=== PATIENT | male | born 1960 | race Caucasian/White ===

== ENCOUNTER → 2022-09-09 | Outpatient (REF) | payer MEDICAID, SELFPAY ==
[2022-09-09 14:54] LABS: Probe Check ND; Specimen Processing Control ND
== END | disposition home or self-care (01) ==
LOC: OLS.SANC 05:00
PROVIDERS: Referring Provider Internal Medicine; Visit Provider Internal Medicine
DX: U07.1 COVID-19 (principal)
CPT/HCPCS: 87635; U0003; U0005

== ENCOUNTER → 2022-09-11 | Outpatient (REF) | payer MEDICAID, SELFPAY ==
[2022-09-11 14:19] LABS: Specimen Processing Control ND
[2022-09-11 14:20] LABS: Probe Check ND
== END | disposition home or self-care (01) ==
LOC: OLS.SANC 06:15
PROVIDERS: Visit Provider Internal Medicine
DX: U07.1 COVID-19 (principal)
CPT/HCPCS: 87635; U0003; U0005

== ENCOUNTER → 2022-09-14 | Outpatient (REF) | payer MEDICAID, SELFPAY ==
[2022-09-14 09:44] LABS: Hemoglobin 15.5 g/dL (13.0-16.5); Mean Corpuscular Hgb 29.2 pg (27.0-32.0); Mean Corpuscular Volume 88.5 fL (80-94); Mean Platelet Vol. 11.3 fl (6.2-12.0); Platelet Count 318 K/mm3 (150-450); Red Blood Count 5.31 M/mm3 (4.6-6.2); White Blood Count 7.3 K/mm3 (4.4-11.0)
[2022-09-14 10:02] LABS: ALB/GLOB Ratio 0.9 RATIO (0.9-2.4); AST(SGOT) 20 U/L (15-37); Alanine Aminotransfer ALT/SGPT 24 U/L (16-61); Albumin, Serum 3.4 g/dL (3.2-5.0); Alkaline Phosphatase 124 U/L (45-117); Anion Gap 7 (5-15); BUN 18 mg/dL (7-18); BUN/Creat Ratio 18.5 RATIO (10-20); Calcium,Total 8.9 mg/dL (8.5-10.1); Chloride 101 mmol/L (98-107); Creatinine, Serum 0.97 mg/dL (0.70-1.30); EST Glomerular Filtration Rate 83 mL/min (>60); Est Glom Filt Rate - Afr Amer 100 mL/min (>60); Globulin 3.7 g/dL (2.2-4.2); Glucose 85 mg/dL (74-106); Protein, Total 7.1 g/dL (6.4-8.2); Sodium Level 137 mmol/L (136-145)
== END | disposition home or self-care (01) ==
LOC: OLS.SANC 04:00
PROVIDERS: Referring Provider Internal Medicine; Visit Provider Internal Medicine
DX: I10 Essential (primary) hypertension (principal); E78.5 Hyperlipidemia, unspecified
CPT/HCPCS: 36415; 80053; 85027

== ENCOUNTER → 2024-05-24 | Outpatient (REF) | payer MEDICARE, SELFPAY ==
[2024-05-24 08:28] LABS: Hematocrit 36.3 % (40-54); Hemoglobin 11.4 g/dL (13.0-16.5); Mean Corp Hgb Conc 31.4 g/dL (32-36); Mean Corpuscular Hgb 29.5 pg (27.0-32.0); Mean Corpuscular Volume 93.8 fL (80-94); Mean Platelet Vol. 11.6 fl (6.2-12.0); Platelet Count 283 K/mm3 (150-450); RBC Distribution Width CV 16.7 % (11.6-14.6); RBC Distribution Width SD 57.6 fl (35.1-43.9); Red Blood Count 3.87 M/mm3 (4.6-6.2); White Blood Count 6.6 K/mm3 (4.4-11.0)
[2024-05-24 08:42] LABS: ALB/GLOB Ratio 0.9 RATIO (0.9-2.4); AST(SGOT) 16 U/L (15-37); Alanine Aminotransfer ALT/SGPT 22 U/L (16-61); Alkaline Phosphatase 108 U/L (45-117); Anion Gap 5 (5-15); BUN 21 mg/dL (7-18); BUN/Creat Ratio 21.9 RATIO (10-20); Calcium,Total 8.9 mg/dL (8.5-10.1); Chloride 109 mmol/L (98-107); Creatinine, Serum 0.96 mg/dL (0.70-1.30); EST Glomerular Filtration Rate 84 mL/min (>60); Est Glom Filt Rate - Afr Amer 101 mL/min (>60); Globulin 3.3 g/dL (2.2-4.2); Glucose 94 mg/dL (74-106); Potassium 4.2 mmol/L (3.5-5.1); Protein, Total 6.3 g/dL (6.4-8.2); Sodium Level 140 mmol/L (136-145)
== END ==
LOC: OLS.SANC 05:52
PROVIDERS: Visit Provider Internal Medicine
DX: N40.0 Benign prostatic hyperplasia without lower urinary tract symptoms (principal); I10 Essential (primary) hypertension; E78.5 Hyperlipidemia, unspecified; E55.9 Vitamin D deficiency, unspecified; G20.A1 Parkinson's disease without dyskinesia, without mention of fluctuations; Z79.899 Other long term (current) drug therapy
CPT/HCPCS: 36415; 80053; 85027

== ENCOUNTER → 2024-05-31 | Outpatient (REF) | payer MEDICARE, SELFPAY ==
[2024-05-31 08:59] LABS: Hematocrit 37.9 % (40-54); Hemoglobin 11.8 g/dL (13.0-16.5); Mean Corp Hgb Conc 31.1 g/dL (32-36); Mean Corpuscular Hgb 29.4 pg (27.0-32.0); Mean Corpuscular Volume 94.3 fL (80-94); Mean Platelet Vol. 12.2 fl (6.2-12.0); Platelet Count 292 K/mm3 (150-450); RBC Distribution Width SD 55.8 fl (35.1-43.9); Red Blood Count 4.02 M/mm3 (4.6-6.2); White Blood Count 6.9 K/mm3 (4.4-11.0)
[2024-05-31 09:14] LABS: Vitamin B12 275 pg/mL (211-911)
[2024-05-31 09:26] LABS: Anion Gap 6 (5-15); BUN 14 mg/dL (7-18); BUN/Creat Ratio 16.8 RATIO (10-20); Chloride 109 mmol/L (98-107); Creatinine, Serum 0.84 mg/dL (0.70-1.30); EST Glomerular Filtration Rate 98 mL/min (>60); Est Glom Filt Rate - Afr Amer 119 mL/min (>60); Glucose 83 mg/dL (74-106); Iron 59 ug/dL (65-175); Iron Binding Capacity,Total 455 ug/dL (250-450); Potassium 4.2 mmol/L (3.5-5.1); Sodium Level 141 mmol/L (136-145)
== END ==
LOC: OLS.SANC 05:00
PROVIDERS: Visit Provider Internal Medicine
DX: N40.0 Benign prostatic hyperplasia without lower urinary tract symptoms (principal); I10 Essential (primary) hypertension; E78.5 Hyperlipidemia, unspecified
CPT/HCPCS: 36415; 80048; 82607; 82746; 83540; 83550; 85027

== ENCOUNTER → 2024-06-15 | Outpatient (REF) | payer MEDICARE, SELFPAY ==
[2024-06-15 08:27] LABS: Hematocrit 39.7 % (40-54); Hemoglobin 12.5 g/dL (13.0-16.5); Mean Corp Hgb Conc 31.5 g/dL (32-36); Mean Corpuscular Hgb 29.2 pg (27.0-32.0); Mean Corpuscular Volume 92.8 fL (80-94); Mean Platelet Vol. 11.6 fl (6.2-12.0); Platelet Count 305 K/mm3 (150-450); RBC Distribution Width CV 14.6 % (11.6-14.6); RBC Distribution Width SD 49.5 fl (35.1-43.9); Red Blood Count 4.28 M/mm3 (4.6-6.2); White Blood Count 6.8 K/mm3 (4.4-11.0)
[2024-06-15 08:47] LABS: ALB/GLOB Ratio 0.9 RATIO (0.9-2.4); AST(SGOT) 19 U/L (15-37); Alanine Aminotransfer ALT/SGPT 20 U/L (16-61); Albumin, Serum 3.3 g/dL (3.2-5.0); Alkaline Phosphatase 125 U/L (45-117); Anion Gap 5 (5-15); BUN 13 mg/dL (7-18); BUN/Creat Ratio 16.9 RATIO (10-20); Calcium,Total 9.3 mg/dL (8.5-10.1); Chloride 109 mmol/L (98-107); Creatinine, Serum 0.77 mg/dL (0.70-1.30); EST Glomerular Filtration Rate 108 mL/min (>60); Est Glom Filt Rate - Afr Amer 131 mL/min (>60); Globulin 3.5 g/dL (2.2-4.2); Glucose 85 mg/dL (74-106); Protein, Total 6.8 g/dL (6.4-8.2); Sodium Level 141 mmol/L (136-145)
== END ==
LOC: OLS.SANC 05:00
PROVIDERS: Visit Provider Internal Medicine
DX: I11.0 Hypertensive heart disease with heart failure (principal); I50.9 Heart failure, unspecified; E78.5 Hyperlipidemia, unspecified
CPT/HCPCS: 36415; 80053; 85027

== ENCOUNTER → 2024-06-20 | Outpatient (REF) | payer MEDICARE, SELFPAY ==
[2024-06-21 08:18] LABS: Mucous, Urine 0 SEEN /hpf (<or=2+)
[2024-06-21 08:49] LABS: Color, Urine Yellow (Yellow); Glucose, Dipstick Normal (Normal); Ketone-Dipstick Negative (Negative); Leukocyte Esterase-Dipstick 100 /ul (Negative); Nitrite-Dipstick Negative (Negative); Occult Blood-Urine 150 /ul (Negative); Protein-Dipstick 15 mg/dl (Negative); Specific Gravity, Urine 1.015 (1.002-1.030); Urine Bilirubin Dipstick Negative (Negative); Urine Clarity Clear (Clear); Urine Urobilinogen Normal (Normal)
[2024-06-21 09:17] LABS: Bacteria 1+ /hpf (None Seen); Red Blood Cells-Urine 5-10 SEEN /hpf (0-5); Squamous Epithelial Cells - UA 0-5 SEEN /hpf (0-5); White Blood Cells 0-5 SEEN /hpf (0-5)
== END ==
LOC: OLS.SANC 16:30
PROVIDERS: Visit Provider Internal Medicine
DX: R39.89 Other symptoms and signs involving the genitourinary system (principal)
CPT/HCPCS: 81001; 87086; 87088

== ENCOUNTER → 2024-10-06 05:00 | Outpatient (REF) | payer MEDICARE, SELFPAY ==
[2024-10-06 08:45] LABS: Hematocrit 42.2 % (40-54); Hemoglobin 13.7 g/dL (13.0-16.5); Mean Corp Hgb Conc 32.5 g/dL (32-36); Mean Corpuscular Hgb 29.5 pg (27.0-32.0); Mean Corpuscular Volume 90.8 fL (80-94); Mean Platelet Vol. 11.8 fl (6.2-12.0); Platelet Count 292 K/mm3 (150-450); RBC Distribution Width CV 14.4 % (11.6-14.6); RBC Distribution Width SD 48.1 fl (35.1-43.9); Red Blood Count 4.65 M/mm3 (4.6-6.2); White Blood Count 8.9 K/mm3 (4.4-11.0)
[2024-10-06 09:53] LABS: AST(SGOT) 15 U/L (15-37); Alanine Aminotransfer ALT/SGPT 22 U/L (16-61); Albumin, Serum 3.2 g/dL (3.2-5.0); Alkaline Phosphatase 126 U/L (45-117); Anion Gap 5 (5-15); BUN 19 mg/dL (7-18); Calcium,Total 8.6 mg/dL (8.5-10.1); Chloride 112 mmol/L (98-107); Creatinine, Serum 0.76 mg/dL (0.70-1.30); EST Glomerular Filtration Rate 109 mL/min (>60); Est Glom Filt Rate - Afr Amer 132 mL/min (>60); Globulin 3.1 g/dL (2.2-4.2); Glucose 83 mg/dL (74-106); Potassium 3.9 mmol/L (3.5-5.1); Protein, Total 6.3 g/dL (6.4-8.2); Sodium Level 142 mmol/L (136-145)
== END ==
LOC: OLS.SANC 05:00
PROVIDERS: Visit Provider Internal Medicine
DX: Z79.899 Other long term (current) drug therapy (principal)
CPT/HCPCS: 36415; 80053; 85027

== ENCOUNTER → 2024-11-06 | Outpatient (REF) | payer MEDICARE, SELFPAY ==
[2024-11-06 09:00] LABS: Hematocrit 43.3 % (40-54); Hemoglobin 14.1 g/dL (13.0-16.5); Mean Corp Hgb Conc 32.6 g/dL (32-36); Mean Corpuscular Volume 88.9 fL (80-94); Mean Platelet Vol. 11.5 fl (6.2-12.0); Platelet Count 296 K/mm3 (150-450); RBC Distribution Width CV 13.9 % (11.6-14.6); RBC Distribution Width SD 45.2 fl (35.1-43.9); Red Blood Count 4.87 M/mm3 (4.6-6.2); White Blood Count 6.8 K/mm3 (4.4-11.0)
[2024-11-06 09:16] LABS: Anion Gap 5 (5-15); BUN 17 mg/dL (7-18); BUN/Creat Ratio 21.4 RATIO (10-20); Chloride 109 mmol/L (98-107); Creatinine, Serum 0.79 mg/dL (0.70-1.30); EST Glomerular Filtration Rate 104 mL/min (>60); Est Glom Filt Rate - Afr Amer 126 mL/min (>60); Glucose 84 mg/dL (74-106); Potassium 4.1 mmol/L (3.5-5.1); Sodium Level 140 mmol/L (136-145)
== END ==
LOC: OLS.SANC 05:00
PROVIDERS: Visit Provider Internal Medicine
DX: I10 Essential (primary) hypertension (principal); E78.5 Hyperlipidemia, unspecified; Z86.711 Personal history of pulmonary embolism
CPT/HCPCS: 36415; 80048; 85027

== ENCOUNTER → 2025-01-08 | Outpatient (REF) | payer MEDICARE, SELFPAY ==
[2025-01-08 08:30] LABS: Hematocrit 44.2 % (40-54); Hemoglobin 14.4 g/dL (13.0-16.5); Mean Corp Hgb Conc 32.6 g/dL (32-36); Mean Corpuscular Hgb 29.3 pg (27.0-32.0); Mean Corpuscular Volume 89.8 fL (80-94); Mean Platelet Vol. 11.6 fl (6.2-12.0); Platelet Count 260 K/mm3 (150-450); RBC Distribution Width SD 46.1 fl (35.1-43.9); Red Blood Count 4.92 M/mm3 (4.6-6.2); White Blood Count 7.3 K/mm3 (4.4-11.0)
[2025-01-08 10:54] LABS: Anion Gap 11 (5-15); BUN 16 mg/dL (4-19); BUN/Creat Ratio 19.3 RATIO (10-20); Carbon Dioxide 23.9 mmol/L (22.0-29.0); Chloride 106 mmol/L (96-108); Creatinine, Serum 0.82 mg/dL (0.70-1.20); EST Glomerular Filtration Rate 97 (>60); Glucose 77 mg/dL (70-99); Potassium 4.2 mmol/L (3.3-5.1); Sodium Level 141 mmol/L (133-145)
== END ==
LOC: OLS.SANC 04:00
PROVIDERS: Referring Provider Internal Medicine; Visit Provider Internal Medicine
DX: I10 Essential (primary) hypertension (principal)
CPT/HCPCS: 36415; 80048; 85027

== ENCOUNTER → 2025-02-05 | Outpatient (REF) | payer MEDICARE, SELFPAY ==
[2025-02-05 08:43] LABS: Hematocrit 40.3 % (40-54); Hemoglobin 13.5 g/dL (13.0-16.5); Mean Corp Hgb Conc 33.5 g/dL (32-36); Mean Corpuscular Hgb 29.7 pg (27.0-32.0); Mean Corpuscular Volume 88.8 fL (80-94); Mean Platelet Vol. 11.4 fl (6.2-12.0); Platelet Count 274 K/mm3 (150-450); RBC Distribution Width CV 13.7 % (11.6-14.6); RBC Distribution Width SD 44.7 fl (35.1-43.9); Red Blood Count 4.54 M/mm3 (4.6-6.2); White Blood Count 7.4 K/mm3 (4.4-11.0)
[2025-02-05 09:05] LABS: Anion Gap 11 (5-15); BUN 14 mg/dL (4-19); BUN/Creat Ratio 17.6 RATIO (10-20); Calcium,Total 8.7 mg/dL (7.6-11.0); Carbon Dioxide 21.8 mmol/L (21.0-32.0); Chloride 108 mmol/L (98-108); EST Glomerular Filtration Rate 97 (>60); Glucose 81 mg/dL (70-99); Potassium 4.2 mmol/L (3.3-5.1); Sodium Level 141 mmol/L (133-145)
== END ==
LOC: OLS.SANC 05:00
PROVIDERS: Visit Provider Internal Medicine
DX: I48.91 Unspecified atrial fibrillation (principal); N40.0 Benign prostatic hyperplasia without lower urinary tract symptoms; I10 Essential (primary) hypertension; E78.5 Hyperlipidemia, unspecified
CPT/HCPCS: 36415; 80048; 85027

== ENCOUNTER → 2025-03-20 | Outpatient (REF) | payer MEDICARE, SELFPAY ==
[2025-03-20 10:00] LABS: Hematocrit 41.4 % (40-54); Hemoglobin 13.7 g/dL (13.0-16.5); Mean Corp Hgb Conc 33.1 g/dL (32-36); Mean Corpuscular Hgb 30.3 pg (27.0-32.0); Mean Corpuscular Volume 91.6 fL (80-94); Mean Platelet Vol. 11.3 fl (6.2-12.0); Platelet Count 264 K/mm3 (150-450); RBC Distribution Width CV 13.8 % (11.6-14.6); Red Blood Count 4.52 M/mm3 (4.6-6.2); White Blood Count 7.1 K/mm3 (4.4-11.0)
[2025-03-20 10:39] LABS: Anion Gap 10 (5-15); BUN 19 mg/dL (4-19); BUN/Creat Ratio 24.9 RATIO (10-20); Calcium,Total 8.7 mg/dL (7.6-11.0); Carbon Dioxide 22.8 mmol/L (21.0-32.0); Chloride 110 mmol/L (98-108); Creatinine, Serum 0.77 mg/dL (0.70-1.20); EST Glomerular Filtration Rate 99 (>60); Glucose 82 mg/dL (70-99); Potassium 4.1 mmol/L (3.3-5.1); Sodium Level 143 mmol/L (133-145)
== END ==
LOC: OLS.SANC 05:00
PROVIDERS: Visit Provider Internal Medicine
DX: I48.91 Unspecified atrial fibrillation (principal); N40.0 Benign prostatic hyperplasia without lower urinary tract symptoms; I10 Essential (primary) hypertension
CPT/HCPCS: 36415; 80048; 85027

== ENCOUNTER → 2025-05-21 05:00 | Outpatient (REF) | payer MEDICARE, SELFPAY ==
--- OUTSIDE RECORDS SUMMARY | 2025-05-21 03:52 | XMS RPT_ITS | CCD ---
Author Organization [facility] CliniSyca Care Team Providers Care Plastering Supervisor Name Role Phone Ty BROTHERS, Ángel Rivera Primary Care Provide r Kelechi BROTHERS, Paul Unavailable [phone] Kinsey Ruggiero MD, Clint Perez [facility] Provi ana Kinsey Ruggiero MD, Clint Perez [facility] Provi ana Tim BARRETT, Moo Unavailable Unavailable Kinsey Ruggiero MD, Clint Perez [facility] Provi ana Tim RN, Moo Unavailable Unavailable IZA, JOSSE Attending Unavailable CLINT EUCEDA JR Referring Unavail able CLINT EUCEDA JR Primary [facility] Unavail able Tim RN, Moo Unavailable Unavailable Jacque BARRETT, Inna A Unavailable [phone] Jacque RN, Inna A Unavailable [phone] Tim BARRETT, Moo Unavailable Unavailable Jacque RN, Inna A Unavailable [phone] Iza BROTHERS, Josse Unavailable Aracelis CIFUENTES, Patricia Romano Unavailable Mastrucci CONSTRUCTION ESTIMATOR.RESIDENTIAL REAL ESTATE ASSISTANT, Karthik Primary Care Provider Mastrucci CONSTRUCTION ESTIMATOR.RESIDENTIAL REAL ESTATE ASSISTANT, Karthik Primary Care Provider Jed Wolf MD Unavailable Jacque BARRETT, Inna A Unavailable Sal CONSTRUCTION ESTIMATOR.Anya GILES Unavailable [phone] Violette Chen Attending Provider Unavailab Violette Christian Referring Provider Unavailab Violette Osei MD Primary Care Provider Trinidad MCCALL, Violette Attending Provider Unavailab rosa MCCALL, Violette Attending Unavailable Trinidad MCCALL, Violette Attending Unavailable Trinidad MCCALL, Violette Attending Unavailable Lanasamelanei MCCALL, Violette Attending Unavailable Katsamelanie, Violette Attending Unavailable Trinidad, Violette Referring Unavailable Katsaros STEFANY, Violette Attending Unavailable Katsaros, Violette Attending Unavailable Katsamelanie, Violette Referring Unavailable Katsaros STEFANY, Violette Attending Unavailable Lanasamelanie MCCALL, Violette Referring Unavailable Katsaros STEFANY, Violette Attending Unavailable Katsamelanie MCCALL, Violette Attending Unavailable Katsaros STEFANY, Violette Attending Unavailable MASTRUCCI, KARTHIK Primary Care Unavailable ANYA HUANG Attending Unavailable VIOLETTE ABDI Primary Care Unavaila CANDELARIO Koch Referring Unavailable MASTRUCCI, KARTHIK Primary Care Unavailable FEGATELLI, AGATA Referring Unavailable ZORAN, SERGIO Attending Unavailable MACK NOONAN Admitting Unavailable MASTRUCCI, KARTHIK Primary Care Unavailable MASTRUCCI, KARTHIK Primary Care Unavailable KHAYYAT, LEONARD F Referring Unavailable KHAYYAT, LEONARD F Attending Unavailable MASTRUCCI, KARTHIK Primary Care Unavailable FEGATELLI, AGATA Referring Unavailable MASTRUCCI, KARTHIK Primary Care Unavailable FEGATELLI, GAATA Referring Unavailable KHAYYAT, LEONARD F Attending Unavailable MASTRUCCI, KARTHIK Primary Care Unavailable SELF Referring Unavailable MASTRUCCI, KARTHIK Attending Unavailable MASTRUCCI, KARTHIK Primary Care Unavailable ANYA HUANG Referring Unavailable MASTRUCCI, KARTHIK Primary Care Unavailable FEGATELLI, AGATA Referring Unavailable KHAYYAT, LEONARD F Attending Unavailable MASTRUCCI, KARTHIK Primary Care Unavailable MASTRUCCI, KARTHIK Attending Unavailable MASTRUCCI, KARTHIK Primary Care Unavailable SUELLEN CONLEY Attending Unavailable MASTRUCCI, KARTHIK Primary Care Unavailable KHAYYAT, LEONARD F Attending Unavailable MASTRUCCI, KARTHIK Primary Care Unavailable ANYA HUANG Attending Unavailable MASTRUCCI, KARTHIK Primary Care Unavailable ANYA HUANG Referring Unavailable FAITH MOORE Attending Unavailable MASTRUCCI, KARTHIK Primary Care Unavailable OSCAR, FAITH M Referring Unavailable MASTRUCCI, KARTHIK Primary Care Unavailable NATET, LEONARD F Referring Unavailable MASTRUCCI, KARTHIK Primary Care Unavailable KHAYYAT, LEONARD F Referring Unavailable MASTRUCCI, KARTHIK Primary Care Unavailable KHSAURABHYAT, LEONARD F Referring Unavailable KHAYYAT, LEONARD F Attending Unavailable [facility], KARTHIK Primary Care Unavailable ANYA HUANG Attending Unavailable MIA GERONIMO Unavailable FLORENCIO HERNANDEZ Attending Unavailable DEEDEE RICE Admitting Unavailable [email or web address] KARTHIK Primary Care Unavailable Medications Current Medications Medication Drug Class(es) Dates Sig (Normalized) Sig (Original) acetaminophen 500 mg oral tablet (20 sources) Start: 06-07-2024 take 2 tablets by mouth every eight hours as needed acetaminophen (TYLENOL) 500 mg tablet Take 2 tablets by mouth every 8 hours as needed for pain. 06/07/2024 Active Start: 04-25-2024 End: 06-07-2024 take 2 tablets by mouth every six hours as needed acetaminophen (TYLENOL) 500 mg tablet Take 2 tablets by mouth every 6 hours as needed for pain. 0 04/25/2024 06/07/2024 Discontinued Start: 09-06-2022 End: 02-01-2024 take 2 tablets by mouth every six hours as needed acetaminophen (TYLENOL) 325 mg tablet Take 2 tablets by mouth every 6 hours as needed for pain or fever (specify) (tmax >100.2F). 0 09/06/2022 02/01/2024 Discontinued Comment on above: Take 2 tablets by mo ut every 6 hours as needed for pain or fever (specify) (tmax >100.2F). amLODIPine 5 mg oral tablet (20 sources) Dihydropyridine Calcium Channel Helder Start: take 2 tablets by mouth once daily amLODIPine (NORVASC) 5 mg tablet Take 2 tablets by mouth once daily. 04/25/2024 Active Start: 09-07-2022 End: 07-30-2024 take 1 tablet by mouth once daily amLODIPine (NORVASC) 5 mg tablet Indications: Essential hypertension Take 1 tablet by mouth once daily. 90 tablet 1 02/01/2024 07/30/2024 Active Start: 06-06-2021 End: 05-10-2022 take 1 tablet by mouth once daily amLODIPine (NORVASC) 5 mg tablet Indications: Essential hypertension Take 1 tablet by mouth once daily. 30 tablet 5 04/10/2022 Suspended Comment on above: Take 1 tablet by linda once daily. apixaban 5 mg oral tablet (20 sources) Factor Xa Inhibitor Start: 12-10-2024 ELIQUIS 5 mg tab(s) 12/10/2024 Active Start: 09-28-2024 End: 10-31-2024 take 2 tablets by mouth twice daily, then take 1 tablet by mouth twice daily apixaban (ELIQUIS) 5 mg tab(s) Take 2 tablets by mouth two times a day for 5 days, THEN 1 tablet two times a day for 28 days. 76 tablet 09/28/2024 10/31/2024 Active aspirin 81 mg chewable tablet (20 sources) Platelet Aggregation Inhibitor, Nonsteroidal Anti-inflammatory Drug Start: 04-26-2024 take 1 tablet by mouth once daily aspirin 81 mg chewable tablet Take 1 tablet by mouth once daily. 04/26/2024 Active atorvastatin 20 mg oral tablet (20 sources) HMG-CoA Reductase Inhibitor Start: 01-24-2021 End: 07-30-2024 take 1 tablet by mouth once daily atorvastatin (LIPITOR) 20 mg tablet Indications: Dyslipidemia Take 1 tablet by mouth once daily. 90 tablet 1 02/01/2024 Active Comment on above: Take 1 tablet by linda once daily. TAKE ONE TABLET BY M OUTH EVERY DAY bisacodyl 5 mg delayed release oral tablet (20 sources) Stimulant Laxative End: 06-04-2024 Bisacodyl (DULCOLAX) 5 mg tab Take 5 mg by mouth as needed for constipation. Active End: 06-04-2024 take 10 mg rectal route once daily as needed for constipation bisacodyl (DULCOLAX, BISACODYL,) 10 mg supp 10 mg by RECTAL route once daily as needed for constipation. 0 06/04/2024 Discontinued 24 hr buPROPion hydrochloride 300 mg extended release oral tablet (20 sources) Aminoketone Start: 12-01-2024 End: 03-01-2025 take 1 tablet by mouth once daily buPROPion XL (WELLBUTRIN XL) 300 mg 24 hr tablet Indications: Depression, unspecified depression type Take 1 tablet by mouth once daily. 90 tablet 12/01/2024 Active Start: 11-28-2024 End: 05-27-2025 take 1 tablet by mouth once daily buPROPion XL 450 mg Tb24 Indications: Depression, unspecified depression type Take 1 tablet by mouth once daily. 90 tablet 1 11/28/2024 12/01/2024 Discontinued Start: 02-06-2020 End: 11-28-2024 take 1 tablet by mouth once daily buPROPion XL (WELLBUTRIN XL) 300 mg 24 hr tablet Indications: Depression, unspecified depression type Take 1 tablet by mouth once daily. 90 tablet 1 02/01/2024 07/30/2024 Active Comment on above: Take by mouth once d aily. Take 300 mg by mouth once daily. Take 1 tablet by linda th once daily. hydrALAZINE hydrochloride 10 mg oral tablet (20 sources) Arteriolar Vasodilator Start: 12-22-2024 hydrALAZINE (APRESOLINE) 10 mg tablet 12/22/2024 Active End: 02-22-2025 take 40 mg by mouth every eight hours hydralazine HCl (HYDRALAZINE ORAL) Take 40 mg by mouth every 8 hours. 02/22/2025 Discontinued (Other) take 40 mg by mouth every eight hours hydralazine HCl (HYDRALAZINE ORAL) Take 40 mg by mouth every 8 hours. Active take 40 mg by mouth every eight hours hydralazine HCl (HYDRALAZINE ORAL) Take 40 mg by mouth every 8 hours. 0 Active hydralazine HCl (HYDRALAZINE ORAL) Take 40 mg by mouth as needed (q8). 0 Active lisinopril 40 mg oral tablet (20 sources) Angiotensin Converting Enzyme Inhibitor Start: 11-11-2021 End: 07-30-2024 take 1 tablet by mouth once daily lisinopril (ZESTRIL) 40 mg tablet Indications: Essential hypertension Take 1 tablet by mouth once daily. 90 tablet 1 02/01/2024 Active Comment on above: TAKE ONE TABLET BY M OUTH EVERY DAY Take 1 tablet by linda th once daily. Take 40 mg by mouth once daily. magnesium hydroxide 240 mg/ml oral suspension (15 sources) take 10 mL by mouth once daily as needed magnesium hydroxide 2,400 mg/10 mL susp Take 10 mL by mouth once daily as needed. Active End: 06-04-2024 magnesium hydroxide (MILK OF MAGNESIA ORAL) Take by mouth. 0 06/04/2024 Discontinued magnesium hydrox ad (MILK OF MAGNESIA ORAL) Take by mouth. 0 Active magnesium, aluminum hydroxid e (ALUMINUM-MAGNESIUM HYDROXIDE ORAL) (9 sources) End: 10-27-2024 magnesium, aluminum hydroxid e (ALUMINUM-MAGNESIUM HYDROXIDE ORAL) Take by mouth. 10/27/2024 Discontinued magnesium, alumi num hydroxide (ALUMINUM-MAGNESIUM HYDROXIDE ORAL) Take by mouth. Active meloxicam 7.5 mg oral tablet (1 source) Nonsteroidal Anti-inflammatory Drug Start: 05-08-2022 End: 06-07-2022 take 1 tablet by mouth once daily meloxicam (MOBIC) 7.5 mg tablet Indications: Chronic midline thoracic back pain Take 1 tablet by mouth once daily. 30 tablet 0 05/08/2022 06/07/2022 Active Comment on above: Take 1 tablet by mouth once daily. miconazole nitrate 0.02 mg/mg topical powder (20 sources) Azole Antifungal Start: 09-28-2024 miconazole 2 % powder Apply 1 application to affected area two times a day. 09/28/2024 Active Start: 04-25-2024 End: 09-18-2024 miconazole 2 % powder Apply 1 application to affected area two times a day. 04/25/2024 09/18/2024 Discontinued (Course of therapy completed) nystatin 100 unt/mg topical powder (8 sources) Polyene Antifungal Start: 09-18-2024 End: 10-18-2024 nystatin (MYCOSTATIN) powder Indications: Fungal rash of trunk Apply 1 application to affected area four times daily. 60 g 2 09/18/2024 10/18/2024 Active polyethylene glycol 3350 58032 mg powder for oral solution (20 sources) Osmotic Laxative Start: 09-29-2024 End: 11-28-2024 polyethylene glycol 3350 17 gram packet Take 1 Packet by mouth once daily. Dissolve dose in 4 - 8 ounces of liquid and take as directed. 09/29/2024 11/28/2024 Discontinued Start: 09-06-2022 polyethylene g lycol 3350 (MIRALAX, GLYCOLAX) 17 gram packet Take 1 Packet by mouth once daily as needed for constipation. Dissolve dose in 4 - 8 ounces of liquid and take as directed. 0 09/06/2022 Active polyethylene gly col 3350 4 gram pwpk Take by mouth. Active Comment on above: Take 1 Packet by linda th once daily as needed for constipation. Dissolve dose in 4 - 8 ounces of liquid and take as directed. sennosides, mcfp 8.6 mg oral tablet (7 sources) take 1 tablet by mouth twice daily senna (SENOKOT) 8.6 mg tab Take 8.6 mg by mouth two times a day. Active tamsulosin hydrochloride 0.4 mg oral capsule (20 sources) alpha-Adrenergic Helder Start: 03-31-20 End: 08-07-20 tamsulosin (FLOMAX) 0.4 mg Indications: Benign prostatic hyperplasia with lower urinary tract symptoms, symptom details unspecified TAKE 1 CAPSULE AT BEDTIME 90 capsule 3 07/05/2024 Active Comment on above: Take 1 capsule by mo [facility] daily at bedtime. Completed/Discontinued Medications Medication Drug Class(es) Dates Sig (Normalized) Sig (Original) aluminum hydroxide 40 mg/ml / magnesium hydroxide 40 mg/ml / simethicone 4 mg/ml oral suspension (20 sources) Start: 09-06-2022 End: 02-01-2024 take 30 mL by mouth once daily as needed aluminum-magnesium hydroxide-simethico ne (MAALOX,MYLANTA,MAG -AL PLUS) 200-200-20 mg/5 mL suspension Take 30 mL by mouth once daily as needed (dyspepsia). 0 09/06/2022 02/01/2024 Discontinued End: 11-28-2024 aluminum-magnesium hydroxide -simethicone (MAALOX,MYLANTA,MAG-AL PLUS) 200-200-20 mg/5 mL suspension Take by mouth every 6 hours as needed. 11/28/2024 Discontinued Comment on above: Take 30 mL by mouth once daily as needed (dyspepsia). benzocaine 15 mg / menthol 3.6 mg oral lozenge (11 sources) Standardized Chemical Allergen Start: 09-06-20 benzocaine-menthol (CEPACOL) 15-3.6 mg lozg Use 1 Lozenge as instructed every 2 hours as needed (cough, sore throat). 30 Lozenge 0 09/06/2022 Active Comment on above: Use 1 Lozenge as ins tructed every 2 hours as needed (cough, sore throat). carbidopa 25 mg / levodopa 100 mg oral tablet (20 sources) Aromatic Amino Acid Decarboxylation Inhibitor, Aromatic Amino Acid Start: 10-29-20 End: 02-01-20 take 2 tablets by mouth three times daily carbidopa-levodopa (SINEMET) 25-100 mg per tablet Indications: Parkinsonism, unspecified Parkinsonism type (HCC) Take 2 tablets by mouth three times daily. 180 tablet 3 01/18/2023 02/01/2024 Discontinued Start: 09-06-2022 End: 10-29-2022 take 0.5 tablet by mouth twice daily carbidopa-levodopa (SINEMET 25-100) 25-100 mg per tablet Take 0.5 tablets by mouth twice daily. 30 tablet 1 09/06/2022 10/29/2022 Discontinued Comment on above: Take 0.5 tablets by mouth twice daily. Take 2 tablets by mo [facility] three times daily. Take 0.5 tablets by mouth three times daily. chlorthalidone 25 mg oral tablet (20 sources) Thiazide-like Diuretic Start: 2020 End: 2023 take 1 tablet by mouth once daily chlorthalidone (HYGROTON) 25 mg tablet Indications: Essential hypertension Take 1 tablet by mouth once daily. 30 tablet 5 11/12/2022 02/01/2024 Discontinued Comment on above: Take 1 tablet by [facility] once daily. cholecalciferol 0.05 mg oral capsule (20 sources) Vitamin D End: 2023 take 1 capsule by mouth once daily Cholecalciferol, Vitamin D3, 50 mcg (2,000 unit) cap Take 1 capsule by mouth once daily. 0 02/01/2024 Discontinued Comment on above: Take by mouth once d aily. Take 1 capsule by mo [facility] once daily. docusate sodium 50 mg / sennosides, mcfp 8.6 mg oral tablet (20 sources) Start: 2023 End: 2024 take 1 tablet by mouth twice daily senna-docusate (SENNA-S) 8.6-50 mg per tablet Take 1 tablet by mouth two times a day. 04/25/2024 02/22/2025 Discontinued (Other) ergocalciferol 1.25 mg oral capsule (20 sources) Provitamin D2 Compound Start: 2023 End: 2023 take 1 capsule by mouth every week ergocalciferol 50,000 unit capsule (VITAMIN D2, DRISDOL) Take 1 capsule by mouth one time a week for 6 doses. 6 capsule 04/29/2024 09/18/2024 Discontinued escitalopram 10 mg oral tablet (8 sources) Serotonin Reuptake Inhibitor Start: 2024 End: 2024 take 1 tablet by mouth once daily escitalopram oxalate (LEXAPRO) 10 mg tablet Indications: Depression, unspecified depression type Take 1 tablet by mouth once daily. 90 tablet 12/01/2024 02/22/2025 Discontinued (Discontinued by another Health Care Provider) 12 hr guaiFENesin 600 mg extended release oral tablet (11 sources) Start: 2021 take 1 tablet by mouth every twelve hours as needed guaiFENesin (MUCINEX) 600 mg 12 hr tablet Take 1 tablet by mouth every 12 hours as needed for cold/allergy symptoms (cough and congestion). 30 tablet 0 09/06/2022 Active Comment on above: Take 1 tablet by linda th every 12 hours as needed for cold/allergy symptoms (cough and congestion). 1 ml heparin sodium, porcine 5000 unt/ml injection (10 sources) Unfractionated Heparin, Anti-coagulant End: 2023 inject 5000 [IU] by subcutaneous injection every eight hours, then inject 7500 [IU] by subcutaneous injection every eight hours heparin sodium,porcine (HEPARIN SODIUM INJECTION) 5,000 Units/mL by INJECTION(UNSPECIFI ED PARENTERAL ROUTES) route every 8 hours. Inject 7500 unit subcutaneously every 8 hours 0 06/04/2024 Discontinued iv contrast (will be provided with radiology test) (5 sources) Start: 2024 End: 2024 inject 1 dose intravenously once iv contrast (will be provided with radiology test) Indications: Intracranial meningioma (HCC) , Traumatic subdural hematoma with loss of consciousness, sequela MRI Brain Inject, intravenously, once for 1 dose.No IV access, insert saline lock prior to beginning of sedation, infusion, injection of imaging exam.Discontinue saline lock post exam. If Pt. has a central line or IVAD, may access for administration according to line specific nursing protocol.Once exam is complete flush line and de-access according to line specific nursing protocol in the MR contrast administration guidelines link 1 Each 01/19/2025 02/22/2025 Discontinued Start: 01-19-2025 inject 1 dose intravenously on ce iv contrast (will be provided with radiology test) Indications: Intracranial meningioma (HCC) , Traumatic subdural hematoma with loss of consciousness, sequela (HCC) MRI Brain Inject, intravenously, once for 1 dose.No IV access, insert saline lock prior to beginning of sedation, infusion, injection of imaging exam.Discontinue saline lock post exam. If Pt. has a central line or IVAD, may access for administration according to line specific nursing protocol.Once exam is complete flush line and de-access according to line specific nursing protocol in the MR contrast administration guidelines link 1 Each 01/19/2025 Active Start: 10-27-2024 End: 10-28-2024 inject 1 dose intravenously once iv contrast (will be provided with radiology test) Indications: Intracranial meningioma (HCC) , Benign neoplasm of meninges (HCC) MRI Brain Inject, intravenously, once for 1 dose.No IV access, insert saline lock prior to beginning of sedation, infusion, injection of imaging exam.Discontinue saline lock post exam. If Pt. has a central line or IVAD, may access for administration according to line specific nursing protocol.Once exam is complete flush line and de-access according to line specific nursing protocol in the MR contrast administration guidelines link 1 Each 10/27/2024 10/28/2024 Active ketoconazole 20 mg/ml medicated shampoo (1 source) Azole Antifungal Start: 04-19-2020 ketoconazole (NIZORAL) 2 % shampoo Once a week 0 04/19/2020 Active Comment on above: Once a week MEDICATION, NON-DATABASE (10 sources) End: 06-04-2024 MEDICATION, NON-DATABASE Melatonin CR 2 mg at bedtime prn 0 06/04/2024 Discontinued MEDICATION, NON- DATABASE Melatonin CR 2 mg at bedtime prn 0 Active melatonin 3 mg oral capsule (12 sources) End: 09-18-2024 take 1 capsule by mouth every twenty-four hours as needed melatonin 3 mg capsules Take 3 mg by mouth at bedtime as needed for insomnia. 09/18/2024 Discontinued potassium-sodium phosphates (NEUTRA-PHOS,PHOS-NAK ) 280-160-250 mg pwpk (9 sources) Start: 09-06-2022 take 1 dose by mouth twice daily at mealtime potassium-sodium phosphates (NEUTRA-PHOS,PHOS-NAK) 280-160-250 mg pwpk Take 1 Packet by mouth twice daily with meals for 3 days. 6 Each 0 09/06/2022 Active Start: 09-06-2022 End: 09-09-2022 take 1 dose by mouth twice daily at mealtime potassium-sodium phosphates (NEUTRA-PHOS,PHOS-NAK) 280-160-250 mg pwpk Take 1 Packet by mouth twice daily with meals for 3 days. 6 Each 0 09/06/2022 09/09/2022 Active Comment on above: Take 1 Packet by linda th twice daily with meals for 3 days. psyllium husk/aspartame (METAMUCIL FIBER SINGLES ORAL) (10 sources) End: 06-04-2024 psyllium husk/aspartame (METAMUCIL FIBER SINGLES ORAL) Take 1 Packet by mouth as needed. 0 06/04/2024 Discontinued psyllium husk/as partame (METAMUCIL FIBER SINGLES ORAL) Take 1 Packet by mouth as needed. 0 Active 24 hr venlafaxine 75 mg extended release oral capsule (20 sources) Serotonin and Norepinephrine Reuptake Inhibitor Start: 01-16-2022 End: 02-01-2024 take 1 capsule by mouth once daily venlafaxine ER (EFFEXOR XR) 75 mg 24 hr capsule Take 75 mg by mouth once daily. 0 01/16/2022 02/01/2024 Discontinued Start: 01-16-2022 take 1 tablet by linda th once daily venlafaxine (EFFEXOR) 50 mg tablet Take 50 mg by mouth once daily. 0 01/16/2022 Active Comment on above: Take 50 mg by mouth once daily. Take 75 mg by mouth once daily. Problems Active Problems Problem Classification Problem Date Documented Date Episodic/Chronic Acute cerebrovascular disease (20 sources) Hematoma of subdural space of neuraxis; Translations: [Subdural hematoma] Onset: 04-15-2024 04-15-2024 Chronic Cardiac dysrhythmias (9 sources) Atrial flutter; Translations: [Unspecified atrial flutter] Onset: 05-05-2025 05-03-2024 Chronic Complication of device; implant or graft (5 sources) Leakage of cardiac device; Translations: [Leakage of unspecified cardiac and vascular devices and implants, initial encounter] Onset: 05-14-2025 01-20-2025 Episodic Congestive heart failure; nonhypertensive (1 source) Heart failure, unspecified; Translations: [Heart failure, unspecified] Onset: 07-03-2024 Chronic Diseases of white blood cells (20 sources) Leukocytosis; Translations: [Elevated white blood cell count, unspecified] Onset: 10-30-2022 10-30-2022 Chronic Disorders of lipid metabolism (20 sources) Dyslipidemia; Translations: [Hyperlipidemia, unspecified] Onset: 02-10-2018 02-10-2018 Chronic Essential hypertension (20 sources) Essential hypertension; Translations: [Essential (primary) hypertension] Onset: 05-25-2016 Chronic Hyperplasia of prostate (20 sources) Benign prostatic hyperplasia; Translations: [Benign prostatic hyperplasia with lower urinary tract symptoms] Onset: 05-25-2016 12-16-2017 Chronic Immunizations and screening for infectious disease (6 sources) Patient encounter status; Translations: [Encounter for screening for human immunodeficiency virus [HIV]] 02-01-2024 Episodic Late effects of cerebrovascular disease (5 sources) 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; Translations: [Hemiplegia and hemiparesis following cerebral infarction affecting left non-dominant side] 06-12-2024 Chronic Mood disorders (1 source) Mood disorders; Translations: [Depression, unspecified depression type] Onset: 11-28-2024 Nutritional deficiencies (20 sources) Vitamin D deficiency; Translations: [Vitamin D deficiency, unspecified] Onset: 05-25-2016 12-16-2017 Chronic Other aftercare (1 source) Long-term current use of diuretic; Translations: [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] Episodic Other aftercare (2 sources) Post-discharge follow-up; Translations: [Encounter for follow-up examination after completed treatment for conditions other than malignant neoplasm] Episodic Other and unspecified benign neoplasm (20 sources) Intracranial meningioma; Translations: [Benign neoplasm of cerebral meninges] Onset: 05-09-2024 05-09-2024 Chronic Other and unspecified benign neoplasm (2 sources) Benign neoplasm of meninges; Translations: [Benign neoplasm of meninges, unspecified] 10-17-2024 Chronic Other and unspecified benign neoplasm (1 source) Benign neoplasm of meninges, unspecified; Translations: [Benign neoplasm of meninges (HCC)] Onset: 10-27-2024 Chronic Other and unspecified benign neoplasm (1 source) Benign neoplasm of cerebral meninges; Translations: [Intracranial meningioma (HCC)] Onset: 05-09-2024 Chronic Other circulatory disease (1 source) History of cerebrovascular accident due to ischemia; Translations: [Personal history of transient ischemic attack (TIA), and cerebral infarction without residual deficits] 05-08-2024 Episodic Other diseases of veins and lymphatics (1 source) Vascular insufficiency; Translations: [Venous insufficiency (chronic) (peripheral)] 02-01-2024 Episodic Other eye disorders (1 source) Eye / vision finding 01-18-2025 Episodic Other nervous system disorders (20 sources) Disorder of brain; Translations: [Encephalopathy, unspecified] Onset: 10-30-2022 10-30-2022 Chronic Other nervous system disorders (20 sources) Mass lesion of brain; Translations: [Other specified disorders of brain] Onset: 04-18-2024 04-25-2024 Chronic Other nervous system disorders (3 sources) Impairment of balance; Translations: [Other abnormalities of gait and mobility] Episodic Other nervous system disorders (1 source) Shuffling gait; Translations: [Other abnormalities of gait and mobility] Episodic Other nervous system disorders (1 source) Abnormal gait; Translations: [Unsteadiness on feet] Episodic Other nervous system disorders (1 source) Other abnormalities of gait and mobility; Translations: [Shuffling gait] Onset: 10-07-2022 Episodic Other nervous system disorders (1 source) Unsteadiness on feet; Translations: [Gait instability] Onset: 10-07-2022 Episodic Other nutritional; endocrine; and metabolic disorders (20 sources) Body mass index 40+ - severely obese; Translations: [Morbid (severe) obesity due to excess calories] Onset: 02-13-2018 02-13-2018 Chronic Other nutritional; endocrine; and metabolic disorders (20 sources) Obese class II; Translations: [Obesity, unspecified] Onset: 06-28-2018 Resolved: 12-25-2020 12-25-2020 Chronic Other nutritional; endocrine; and metabolic disorders (20 sources) Obesity caused by energy imbalance; Translations: [Morbid (severe) obesity due to excess calories] Onset: 06-24-2020 09-18-2024 Chronic Other nutritional; endocrine; and metabolic disorders (1 source) Morbid (severe) obesity due to excess calories; Translations: [Obesity, Class III, BMI 40-49.9 (morbid obesity) (HCC)] Onset: 09-05-2022 Chronic Other skin disorders (1 source) Localized swelling of left lower leg; Translations: [Localized swelling, mass and lump, left lower limb] 02-01-2024 Episodic Other skin disorders (2 sources) Mass of soft tissue; Translations: [Other specified soft tissue disorders] 01-18-2025 Episodic Parkinson`s disease (20 sources) Parkinson's disease; Translations: [Parkinson's disease] Onset: 09-05-2022 09-05-2022 Chronic Parkinson`s disease (2 sources) Parkinson`s disease; Translations: [Parkinson's disease without dyskinesia, without mention of fluctuations] Onset: 09-05-2022 Residual codes; unclassified (20 sources) Obstructive sleep apnea syndrome; Translations: [Obstructive sleep apnea (adult) (pediatric)] Onset: 02-10-2018 02-10-2018 Chronic Spondylosis; intervertebral disc disorders; other back problems (1 source) Chronic thoracic back pain; Translations: [Pain in thoracic spine] Episodic Thyroid disorders (2 sources) Thyroid nodule; Translations: [Nontoxic single thyroid nodule] Onset: 09-18-2024 09-18-2024 Chronic Unclassified (1 source) NO SHOW Unclassified (1 source) Multiple subsegmental pulmonary emboli without acute cor pulmonale; Translations: [Multiple subsegmental pulmonary emboli without acute cor pulmonale (HCC)] Onset: 09-24-2024 Unclassified (1 source) Obesity, Class II, BMI 35-39.9; Translations: [Obesity, Class II, BMI 35-39.9] Onset: 09-18-2024 Past or Other Problems Problem Classification Problem Date Documented Da te Episodic/Chronic Acute and unspecified renal failure (20 sources) Acute injury of kidney; Translations: [Acute kidney failure, unspecified] Onset: 10-30-2022 10-30-2022 Episodic Administrative/social admission (1 source) Other reduced mobility; Translations: [Impaired mobility and ADLs] Onset: 06-04-2024 Episodic Cardiac dysrhythmias (20 sources) Bradycardia; Translations: [Bradycardia, unspecified] Onset: 05-25-2016 05-25-2016 Episodic E Codes: Fall (20 sources) Fall; Translations: [Unspecified fall, initial encounter] Onset: 04-18-2024 Episodic Fracture of lower limb (20 sources) Closed fracture of right tibial plateau; Translations: [Displaced bicondylar fracture of right tibia, initial encounter for closed fracture] Onset: 10-03-2019 10-03-2019 Episodic Fracture of lower limb (20 sources) Closed fracture of left tibial plateau; Translations: [Displaced bicondylar fracture of left tibia, initial encounter for closed fracture] Onset: 09-13-2019 Resolved: 12-25-2020 12-25-2020 Episodic Fracture of upper limb (20 sources) Closed fracture of shaft of ulna; Translations: [Unspecified fracture of shaft of left ulna, subsequent encounter for closed fracture with routine healing] Onset: 10-03-2019 10-03-2019 Episodic Genitourinary symptoms and ill-defined conditions (20 sources) Increased frequency of urination; Translations: [Frequency of micturition] Onset: 12-23-2020 12-23-2020 Episodic Heart valve disorders (20 sources) Systolic murmur; Translations: [Cardiac murmur, unspecified] Onset: 05-25-2016 12-16-2017 Episodic Influenza (20 sources) Pneumonia caused by Influenza A virus; Translations: [Influenza due to other identified influenza virus with unspecified type of pneumonia] Onset: 11-12-2022 Episodic Intracranial injury (20 sources) Traumatic hematoma of subdural space of neuraxis; Translations: [Traumatic subdural hemorrhage with loss of consciousness of unspecified duration, sequela] Onset: 05-09-2024 Resolved: 09-18-2024 05-03-2024 Episodic Malaise and fatigue (20 sources) Asthenia; Translations: [Weakness] Onset: 01-20-2021 01-20-2021 Episodic Mood disorders (20 sources) Depressive disorder; Translations: [Depression, unspecified depression type] Onset: 06-24-2020 Resolved: 09-18-2024 02-01-2024 Chronic Mycoses (2 sources) Dermal mycosis; 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 mycosis, unspecified] Onset: 09-18-2024 09-18-2024 Episodic Other aftercare (1 source) 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; Translations: [Other jail (current) drug therapy] Onset: 11-23-2024 Episodic Other aftercare (1 source) Encounter for follow-up examination after completed treatment for conditions other than malignant neoplasm; Translations: [Hospital discharge follow-up] Onset: 09-18-2024 Episodic Other and unspecified benign neoplasm (20 sources) Hemangioma of liver; Translations: [Hemangioma of intra-abdominal structures] Onset: 06-04-2021 06-04-2021 Episodic Other circulatory disease (20 sources) History of cerebrovascular accident; Translations: [Personal history of transient ischemic attack (TIA), and cerebral infarction without residual deficits] Onset: 06-07-2024 06-07-2024 Episodic Other circulatory disease (20 sources) History of intracranial hemorrhage; Translations: [Personal history of other diseases of the circulatory system] Onset: 09-24-2024 09-24-2024 Episodic Other lower respiratory disease (1 source) Shortness of breath; Translations: [Shortness of breath] Onset: 09-23-2024 Episodic Other lower respiratory disease (1 source) Hypoxemia; Translations: [Hypoxia] Onset: 09-23-2024 Episodic Other nervous system disorders (20 sources) Parkinsonian features; Translations: [Unspecified abnormal involuntary movements] Onset: 10-30-2022 10-30-2022 Episodic Other non-traumatic joint disorders (20 sources) Unstable knee; Translations: [Other instability, unspecified knee] Onset: 12-25-2020 12-25-2020 Episodic Other nutritional; endocrine; and metabolic disorders (20 sources) Adult failure to thrive syndrome; Translations: [Adult failure to thrive] Onset: 06-04-2024 06-04-2024 Episodic Other screening for suspected conditions (not mental disorders or infectious disease) (1 source) Other specified abnormal findings of blood chemistry; Translations: [Elevated troponin] Onset: 09-23-2024 Episodic Phlebitis; thrombophlebitis and thromboembolism (3 sources) Acute deep vein thrombosis of lower limb; Translations: [Acute embolism and thrombosis of unspecified deep veins of unspecified proximal lower extremity] Onset: 10-26-2024 10-26-2024 Episodic Pneumonia (except that caused by tuberculosis or sexually transmitted disease) (20 sources) Bilateral pneumonia; Translations: [Pneumonia, unspecified organism] Onset: 10-30-2022 10-30-2022 Episodic Pulmonary heart disease (20 sources) Pulmonary embolism; Translations: [Multiple subsegmental pulmonary emboli without acute cor pulmonale] Onset: 09-24-2024 09-24-2024 Episodic Residual codes; unclassified (20 sources) Bilateral lower limb edema; Translations: [Localized edema] Onset: 05-25-2016 Resolved: 12-25-2020 12-25-2020 Episodic Residual codes; unclassified (1 source) Other specified health status; Translations: [Impaired mobility and ADLs] Onset: 06-04-2024 Episodic Screening and history of mental health and substance abuse codes (2 sources) Encounter for screening for depression; Translations: [Encounter for screening examination for other mental health and behavioral disorders] Onset: 09-18-2024 Episodic Urinary tract infections (1 source) Urinary tract infection, site not specified; Translations: [Urinary tract infection, site not specified] Onset: 07-03-2024 Episodic Results Test Name Value Interpretation Reference Range Facility ECG COMPLETEon 05-14-2025 ECG COMPLETE Normal [facility] CNPNon 05-08-2025 CNPN Normal [facility] Anion gap in Serum or Plasma Ordered By: Violette Abdi on 03-20-2025 Anion gap [Moles/Vol] 10 mmol/L 5-15 [facility] Automated blood erythrocyte countOrdered By: Violette Abdi on 03-20-2025 RBC (Bld) [#/Vol] 4.52 10*6/uL Low 4.6-6.2 [facility] Comment on above: Order Comment: 112.1 Performed By: #### L 100.0500, L500.2500 #### [facility] [place], [address] Automated blood hematocrit ( percentage)Ordered By: Violette Abdi on 03-20-2025 Hematocrit (Bld) [Volume fraction] 41.4 % Normal 40-54 [facility] Comment on above: Order Comment: 112.1 Performed By: #### L 100.0500, L500.2500 #### [facility] [address] [place], [address] BUN/creatinine ratioOrdered By: Violette Abdi on 03-20-2025 Urea nitrogen/Creatinine [Mass ratio] 24.9 mg/mg High 10-20 [facility] Basic Metabolic Profile (BMP )on 03-20-2025 BUN/CRE 24.9 RATIO High 10-20 [facility] Comment on above: Order Comment: 112.1 Performed By: #### L 100.0500, L500.2500 #### [facility] [address] [place], [address] Calcium [Mass/Vol] 8.7 mg/dL Normal 7.6-11.0 [facility] Comment on above: Order Comment: 112.1 Performed By: #### L 100.0500, L500.2500 #### [facility] [address] [place], [address] Chloride [Moles/Vol] 110 mmol/L High 98-108 [facility] Comment on above: Order Comment: 112.1 Performed By: #### L 100.0500, L500.2500 #### [facility] [address] [place], [address] CO2 [Moles/Vol] 22.8 mmol/L Normal 21.0-32.0 [facility] Comment on above: Order Comment: 112.1 Performed By: #### L 100.0500, L500.2500 #### [facility] [address] [place], [address] Creatinine [Mass/Vol] 0.77 mg/dL Normal 0.70-1.20 [facility] Comment on above: Order Comment: 112.1 Performed By: #### L 100.0500, L500.2500 #### [facility] [address] [place], [address] GAP 10 Normal 5-15 [facility] Comment on above: Order Comment: 112.1 Performed By: #### L 100.0500, L500.2500 #### [facility] [address] [place], [address] GFR/1.73 sq M.predicted among non-blacks MDRD (S/P/Bld) [Vol rate/Area] 99 mL/min/{1.73_m2} Normal >60 [facility] Comment on above: Order Comment: 112.1 Result Comment: mL/m in/1.73m2 CKD-EPI Creatinine Equation (2020) Performed By: #### L 100.0500, L500.2500 #### [facility] [address] [place], [address] Glucose [Mass/Vol] 82 mg/dL Normal 70-99 [facility] Comment on above: Order Comment: 112.1 Performed By: #### L 100.0500, L500.2500 #### [facility] [address] [place], [address] Potassium [Moles/Vol] 4.1 mmol/L Normal 3.3-5.1 [facility] Comment on above: Order Comment: 112.1 Performed By: #### L 100.0500, L500.2500 #### [facility] [address] [place], [address] Sodium [Moles/Vol] 143 mmol/L Normal 133-145 [facility] Comment on above: Order Comment: 112.1 Performed By: #### L 100.0500, L500.2500 #### [facility] [address] [place], [address] Urea nitrogen [Mass/Vol] 19 mg/dL Normal 4-19 [facility] Comment on above: Order Comment: 112.1 Performed By: #### L 100.0500, L500.2500 #### [facility] [address] [place], [address] CBC-Complete Blood Cnt No Di ffon 03-20-2025 RDW SD 47.0 fl High 35.1-43.9 [facility] Comment on above: Order Comment: 112.1 Performed By: #### L 100.0500, L500.2500 #### [facility] [address] [place], [place], [id number] Carbon dioxide, total [Moles /volume] in Central venous bloodOrdered By: Violette Abdi on 03-20-2025 CO2 [Moles/Vol] 22.8 mmol/L 21.0-32.0 [facility] Chloride assayOrdered By: Benji Crespo on 03-20-2025 Chloride [Moles/Vol] 110 mmol/L High 98-108 [facility] Erythrocyte distribution wid th ratioOrdered By: Violette Abdi on 03-20-2025 Erythrocyte distribution width (RBC) [Ratio] 13.8 % Normal 11.6-14.6 [facility] Comment on above: Order Comment: 112.1 Performed By: #### L 100.0500, L500.2500 #### [facility] [address] [place], [place], [id number] Erythrocyte distribution wid th standard deviationOrdered By: Violette Abdi on 03-20-2025 Erythrocyte distribution width (RBC) [Ratio] 47.0 fl High 35.1-43.9 [facility] Glomerular filtration rate ( GFR) estimation/1.73 sq m using serum, plasma, or whole bOrdered By: Violette Abdi on 03-20-2025 GFR/1.73 sq M.predicted among non-blacks MDRD (S/P/Bld) [Vol rate/Area] 99 mL/min/{1.73_m2} >60 [facility] Comment on above: mL/min/1.73m2 CKD-EP I Creatinine Equation (2020) Hemoglobin measurementOrdere d By: Violette Abdi on 03-20-2025 Hemoglobin (Bld) [Mass/Vol] 13.7 g/dL Normal 13.0-16.5 [facility] Comment on above: Order Comment: 112.1 Performed By: #### L 100.0500, L500.2500 #### [facility] [address] [place], [address] MCV (mean corpuscular volume ) determinationOrdered By: Violette Abdi on 03-20-2025 MCV (RBC) [Entitic vol] 91.6 fL Normal 80-94 [facility] Comment on above: Order Comment: 112.1 Performed By: #### L 100.0500, L500.2500 #### [facility] [address] [place], [address] Mean corpuscular hemoglobin (MCH) determinationOrdered By: Violette Abdi on 03-20-2025 MCH (RBC) [Entitic mass] 30.3 pg Normal 27.0-32.0 [facility] Comment on above: Order Comment: 112.1 Performed By: #### L 100.0500, L500.2500 #### [facility] [address] [place], [address] Mean corpuscular hemoglobin concentration (MCHC) determinationOrdered By: Violette Abdi on 03-20-2025 MCHC (RBC) [Mass/Vol] 33.1 g/dL Normal 32-36 [facility] Comment on above: Order Comment: 112.1 Performed By: #### L 100.0500, L500.2500 #### [facility] [address] [place], [address] Mean platelet volume determi nationOrdered By: Violette Abdi on 03-20-2025 Platelet mean volume (Bld) [Entitic vol] 11.3 fL Normal 6.2-12.0 [facility] Comment on above: Order Comment: 112.1 Performed By: #### L 100.0500, L500.2500 #### [facility] [address] [place], [address] Platelet countOrdered By: Benji Crespo on 03-20-2025 Platelets (Bld) [#/Vol] 264 10*3/uL Normal 150-450 [facility] Comment on above: Order Comment: 112.1 Performed By: #### L 100.0500, L500.2500 #### [facility] [address] [place], [place], [address] Potassium measurement (mass/ volume)Ordered By: Violette Abdi on 03-20-2025 Potassium (Unsp spec) [Mass/Vol] 4.1 mmol/L 3.3-5.1 [facility] Serum creatinine measurement (mass/volume)Ordered By: Violette Abdi on 03-20-2025 Creatinine [Mass/Vol] 0.77 mg/dL 0.70-1.20 [facility] Serum glucose measurement (m ass/volume)Ordered By: Violette Abdi on 03-20-2025 Glucose [Mass/Vol] 82 mg/dL 70-99 [facility] Serum or plasma calcium gael urement (mass/volume)Ordered By: Violette Abdi on 03-20-2025 Calcium [Mass/Vol] 8.7 mg/dL 7.6-11.0 [facility] Serum or plasma urea nitroge n measurement (mass/volume)Ordered By: Violette Abdi on 03-20-2025 Urea nitrogen [Mass/Vol] 19 mg/dL 4-19 [facility] Sodium levelOrdered By: Ramon Abdi on 03-20-2025 Sodium [Moles/Vol] 143 mmol/L 133-145 [facility] White blood cell (WBC) count Ordered By: Violette Abdi on 03-20-2025 WBC (Bld) [#/Vol] 7.1 10*3/uL Normal 4.4-11.0 [facility] Comment on above: Order Comment: 112.1 Performed By: #### L 100.0500, L500.2500 #### [facility] [address] [place], [place], [address] CNPTOUTREACHon 03-14-2025 CNPTOUTREACH Normal [facility] CNOVon 02-22-2025 CNOV Normal [facility] Anion gap in Serum or Plasma Ordered By: Violette Abdi on 02-05-2025 Anion gap [Moles/Vol] 11 mmol/L - [facility] BUN/creatinine ratioOrdered By: Violette Abdi on 02-05-2025 Urea nitrogen/Creatinine [Mass ratio] 17.6 mg/mg 08-27 [facility] Basic Metabolic Profile (BMP )on 02-05-2025 BUN/CRE 17.6 RATIO Normal - [facility] Comment on above: Order Comment: 108-2 Performed By: #### L 500.4050, L100.0500 #### [facility] [address] [place], [address] Calcium [Mass/Vol] 8.7 mg/dL Normal 7.6-11.0 [facility] Comment on above: Order Comment: 108-2 Performed By: #### L 500.4050, L100.0500 #### [facility] [address] [place], [address] Chloride [Moles/Vol] 108 mmol/L Normal 98-108 [facility] Comment on above: Order Comment: 108-2 Performed By: #### L 500.4050, L100.0500 #### [facility] [address] [place], [address] CO2 [Moles/Vol] 21.8 mmol/L Normal 21.0-32.0 [facility] Comment on above: Order Comment: 108-2 Performed By: #### L 500.4050, L100.0500 #### [facility] [address] [place], [address] Creatinine [Mass/Vol] 0.80 mg/dL Normal 0.70-1.20 [facility] Comment on above: Order Comment: 108-2 Performed By: #### L 500.4050, L100.0500 #### [facility] [address] [place], [address] GAP 11 Normal - [facility] Comment on above: Order Comment: 108-2 Performed By: #### L 500.4050, L100.0500 #### [facility] [address] [place], [address] GFR/1.73 sq M.predicted among non-blacks MDRD (S/P/Bld) [Vol rate/Area] 97 mL/min/{1.73_m2} Normal >60 [facility] Comment on above: Order Comment: 108-2 Result Comment: mL/m in/1.73m2 CKD-EPI Creatinine Equation (2020) Performed By: #### L 500.4050, L100.0500 #### [facility] [address] [place], [address] Glucose [Mass/Vol] 81 mg/dL Normal 70-99 [facility] Comment on above: Order Comment: 108-2 Performed By: #### L 500.4050, L100.0500 #### [facility] [address] [place], [address] Potassium [Moles/Vol] 4.2 mmol/L Normal 3.3-5.1 [facility] Comment on above: Order Comment: 108-2 Result Comment: Hemo lysis present, Results??could be affected. ?? Performed By: #### L 500.4050, L100.0500 #### [facility] [address] [place], [address] Sodium [Moles/Vol] 141 mmol/L Normal 133-145 [facility] Comment on above: Order Comment: 108-2 Performed By: #### L 500.4050, L100.0500 #### [facility] [address] [place], [address] Urea nitrogen [Mass/Vol] 14 mg/dL Normal 4-19 [facility] Comment on above: Order Comment: 108-2 Performed By: #### L 500.4050, L100.0500 #### [facility] [address] [place], [address] CBC-Complete Blood Cnt No Shaniqua tejedaon 02-05-2025 Erythrocyte distribution width (RBC) [Ratio] 13.7 % Normal 11.6-14.6 [facility] Comment on above: Order Comment: 108-2 Performed By: #### L 500.4050, L100.0500 #### [facility] [address] [place], [address] Hematocrit (Bld) [Volume fraction] 40.3 % Normal 40-54 [facility] Comment on above: Order Comment: 108-2 Performed By: #### L 500.4050, L100.0500 #### [facility] [address] [place], [address] Hemoglobin (Bld) [Mass/Vol] 13.5 g/dL Normal 13.0-16.5 [facility] Comment on above: Order Comment: 108-2 Performed By: #### L 500.4050, L100.0500 #### [facility] [address] [place], [address] MCH (RBC) [Entitic mass] 29.7 pg Normal 27.0-32.0 [facility] Comment on above: Order Comment: 108-2 Performed By: #### L 500.4050, L100.0500 #### [facility] [address] [place], [address] MCHC (RBC) [Mass/Vol] 33.5 g/dL Normal 32-36 [facility] Comment on above: Order Comment: 108-2 Performed By: #### L 500.4050, L100.0500 #### [facility] [address] [place], [address] MCV (RBC) [Entitic vol] 88.8 fL Normal 80-94 [facility] Comment on above: Order Comment: 108-2 Performed By: #### L 500.4050, L100.0500 #### [facility] [address] [place], [address] Platelet mean volume (Bld) [Entitic vol] 11.4 fL Normal 6.2-12.0 [facility] Comment on above: Order Comment: 108-2 Performed By: #### L 500.4050, L100.0500 #### [facility] [address] [place], [address] Platelets (Bld) [#/Vol] 274 10*3/uL Normal 150-450 [facility] Comment on above: Order Comment: 108-2 Performed By: #### L 500.4050, L100.0500 #### [facility] [address] [place], [address] RBC (Bld) [#/Vol] 4.54 10*6/uL Low 4.6-6.2 [facility] Comment on above: Order Comment: 108-2 Performed By: #### L 500.4050, L100.0500 #### [facility] [address] [place], [address] RDW SD 44.7 fl High 35.1-43.9 [facility] Comment on above: Order Comment: 108-2 Performed By: #### L 500.4050, L100.0500 #### [facility] [address] [place], [address] WBC (Bld) [#/Vol] 7.4 10*3/uL Normal 4.4-11.0 [facility] Comment on above: Order Comment: 108-2 Performed By: #### L 500.4050, L100.0500 #### [facility] [address] [place], [address] Carbon dioxide, total [Moles /volume] in Central venous bloodOrdered By: Violette Abdi on 02-05-2025 CO2 [Moles/Vol] 21.8 mmol/L 21.0-32.0 [facility] Chloride assayOrdered By: Benji Crespo on 02-05-2025 Chloride [Moles/Vol] 108 mmol/L 98-108 [facility] Erythrocyte distribution wid th ratioOrdered By: Violette Abdi on 02-05-2025 Erythrocyte distribution width (RBC) [Ratio] 13.7 % 11.6-14.6 [facility] Erythrocyte distribution wid th standard deviationOrdered By: Violette Abdi on 02-05-2025 Erythrocyte distribution width (RBC) [Entitic vol] 44.7 fL High 35.1-43.9 [facility] Erythrocyte distribution width (RBC) [Ratio] 44.7 fl High 35.1-43.9 [facility] GFR/1.73 sq M.predicted jasen g non-blacks MDRD (S/P/Bld) [Vol rate/Area]Ordered By: Violette Abdi on 02-05-2025 Estimated GFR (MDRD) Non-Af Amer 97 >60 [facility] Comment on above: mL/min/1.73m2 CKD-EP I Creatinine Equation (2020) Glomerular filtration rate ( GFR) estimation/1.73 sq m using serum, plasma, or whole bOrdered By: Violette Abdi on 02-05-2025 GFR/1.73 sq M.predicted among non-blacks MDRD (S/P/Bld) [Vol rate/Area] 97 mL/min/{1.73_m2} >60 [facility] Comment on above: mL/min/1.73m2 CKD-EP I Creatinine Equation (2020) Hematocrit Auto (Bld) [Volum e fraction]Ordered By: Violette Abdi on 02-05-2025 Hematocrit (Bld) [Volume fraction] 40.3 % 40-54 [facility] Hemoglobin measurementOrdere d By: Violette Abdi on 02-05-2025 Hemoglobin (Bld) [Mass/Vol] 13.5 g/dL 13.0-16.5 [facility] MCV (mean corpuscular volume ) determinationOrdered By: Violette Abdi on 02-05-2025 MCV (RBC) [Entitic vol] 88.8 fL 80-94 [facility] Mean corpuscular hemoglobin (MCH) determinationOrdered By: Violette Abdi on 02-05-2025 MCH (RBC) [Entitic mass] 29.7 pg 27.0-32.0 [facility] Mean corpuscular hemoglobin concentration (MCHC) determinationOrdered By: Violette Abdi on 02-05-2025 MCHC (RBC) [Mass/Vol] 33.5 g/dL 32-36 [facility] Mean platelet volume determi nationOrdered By: Violette Abdi on 02-05-2025 Platelet mean volume (Bld) [Entitic vol] 11.4 fL 6.2-12.0 [facility] Platelet countOrdered By: Benji Crespo on 02-05-2025 Platelets (Bld) [#/Vol] 274 10*3/uL 150-450 [facility] Potassium (Unsp spec) [Mass/ Vol]Ordered By: Violette Abdi on 02-05-2025 Potassium [Moles/Vol] 4.2 mmol/L 3.3-5.1 [facility] Comment on above: Hemolysis present, R esults could be affected. Potassium measurement (mass/ volume)Ordered By: Violette Abdi on 02-05-2025 Potassium (Unsp spec) [Mass/Vol] 4.2 mmol/L 3.3-5.1 [facility] Comment on above: Hemolysis present, R esults could be affected. RBC Auto (Bld) [#/Vol]Ordere d By: Violette Abdi on 02-05-2025 RBC (Bld) [#/Vol] 4.54 10*6/uL Low 4.6-6.2 [facility] Serum creatinine measurement (mass/volume)Ordered By: Violette Abdi on 02-05-2025 Creatinine [Mass/Vol] 0.80 mg/dL 0.70-1.20 [facility] Serum glucose measurement (m ass/volume)Ordered By: Violette Abdi on 02-05-2025 Glucose [Mass/Vol] 81 mg/dL 70-99 [facility] Serum or plasma calcium gael urement (mass/volume)Ordered By: Violette Abdi on 02-05-2025 Calcium [Mass/Vol] 8.7 mg/dL 7.6-11.0 [facility] Serum or plasma urea nitroge n measurement (mass/volume)Ordered By: Violette Abdi on 02-05-2025 Urea nitrogen [Mass/Vol] 14 mg/dL 4-19 [facility] Sodium levelOrdered By: Ramon Abdi on 02-05-2025 Sodium [Moles/Vol] 141 mmol/L 133-145 [facility] White blood cell (WBC) count Ordered By: Violette Abdi on 02-05-2025 WBC (Bld) [#/Vol] 7.4 10*3/uL 4.4-11.0 [facility] CNOVon 01-19-2025 CNOV Normal [facility] MRI BRAIN WO/W IVCONon 01-16 MRI BRAIN WO/W IVCON Normal [facility] BUN/creatinine ratioOrdered By: Violette Abdi on 01-08-2025 Urea nitrogen/Creatinine [Mass ratio] 19.3 mg/mg 10- [facility] Basic Metabolic Profile (BMP )on 01-08-2025 Anion gap [Moles/Vol] 11 mmol/L Normal 5-15 [facility] Comment on above: Order Comment: 112.1 Performed By: #### L 500.2500, L100.0500 #### [facility] [address] [place], [address] BUN/CRE 19.3 RATIO Normal 10-20 [facility] Comment on above: Order Comment: 112.1 Performed By: #### L 500.2500, L100.0500 #### [facility] [address] [place], [address] Calcium [Mass/Vol] 9.0 mg/dL Normal 7.6-11.0 [facility] Comment on above: Order Comment: 112.1 Performed By: #### L 500.2500, L100.0500 #### [facility] [address] [place], [address] Chloride [Moles/Vol] 106 mmol/L Normal 96-108 [facility] Comment on above: Order Comment: 112.1 Performed By: #### L 500.2500, L100.0500 #### [facility] [address] [place], [address] CO2 [Moles/Vol] 23.9 mmol/L Normal 22.0-29.0 [facility] Comment on above: Order Comment: 112.1 Performed By: #### L 500.2500, L100.0500 #### [facility] [address] [place], [address] Creatinine [Mass/Vol] 0.82 mg/dL Normal 0.70-1.20 [facility] Comment on above: Order Comment: 112.1 Performed By: #### L 500.2500, L100.0500 #### [facility] [address] [place], [address] GFR/1.73 sq M.predicted among non-blacks MDRD (S/P/Bld) [Vol rate/Area] 97 mL/min/{1.73_m2} Normal >60 [facility] Comment on above: Order Comment: 112.1 Result Comment: mL/m in/1.73m2 CKD-EPI Creatinine Equation (2020) Performed By: #### L 500.2500, L100.0500 #### [facility] [address] [place], [address] Glucose [Mass/Vol] 77 mg/dL Normal 70-99 [facility] Comment on above: Order Comment: 112.1 Performed By: #### L 500.2500, L100.0500 #### [facility] [address] [place], [address] Potassium [Moles/Vol] 4.2 mmol/L Normal 3.3-5.1 [facility] Comment on above: Order Comment: 112.1 Result Comment: Hemo lysis present, Results??could be affected. ?? Performed By: #### L 500.2500, L100.0500 #### [facility] [address] [place], [address] Sodium [Moles/Vol] 141 mmol/L Normal 133-145 [facility] Comment on above: Order Comment: 112.1 Performed By: #### L 500.2500, L100.0500 #### [facility] [address] [place], [address] Urea nitrogen [Mass/Vol] 16 mg/dL Normal 4-19 [facility] Comment on above: Order Comment: 112.1 Performed By: #### L 500.2500, L100.0500 #### [facility] [address] [place], [address] CBC-Complete Blood Cnt No Di ffon 01-08-2025 Erythrocyte distribution width (RBC) [Ratio] 14.0 % Normal 11.6-14.6 [facility] Comment on above: Order Comment: 112.1 Performed By: #### L 500.2500, L100.0500 #### [facility] [address] [place], [address] Hematocrit (Bld) [Volume fraction] 44.2 % Normal 40-54 [facility] Comment on above: Order Comment: 112.1 Performed By: #### L 500.2500, L100.0500 #### [facility] [address] [place], [address] Hemoglobin (Bld) [Mass/Vol] 14.4 g/dL Normal 13.0-16.5 [facility] Comment on above: Order Comment: 112.1 Performed By: #### L 500.2500, L100.0500 #### [facility] [address] [place], [address] MCH (RBC) [Entitic mass] 29.3 pg Normal 27.0-32.0 [facility] Comment on above: Order Comment: 112.1 Performed By: #### L 500.2500, L100.0500 #### [facility] [address] [place], [address] MCHC (RBC) [Mass/Vol] 32.6 g/dL Normal 32-36 [facility] Comment on above: Order Comment: 112.1 Performed By: #### L 500.2500, L100.0500 #### [facility] [address] [place], [address] MCV (RBC) [Entitic vol] 89.8 fL Normal 80-94 [facility] Comment on above: Order Comment: 112.1 Performed By: #### L 500.2500, L100.0500 #### [facility] [address] [place], [address] Platelet mean volume (Bld) [Entitic vol] 11.6 fL Normal 6.2-12.0 [facility] Comment on above: Order Comment: 112.1 Performed By: #### L 500.2500, L100.0500 #### [facility] [address] [place], [address] Platelets (Bld) [#/Vol] 260 10*3/uL Normal 150-450 [facility] Comment on above: Order Comment: 112.1 Performed By: #### L 500.2500, L100.0500 #### [facility] [address] [place], [address] RBC (Bld) [#/Vol] 4.92 10*6/uL Normal 4.6-6.2 [facility] Comment on above: Order Comment: 112.1 Performed By: #### L 500.2500, L100.0500 #### [facility] [address] [place], [address] RDW SD 46.1 fl High 35.1-43.9 [facility] Comment on above: Order Comment: 112.1 Performed By: #### L 500.2500, L100.0500 #### [facility] [address] [place], [place], [address] WBC (Bld) [#/Vol] 7.3 10*3/uL Normal 4.4-11.0 [facility] Comment on above: Order Comment: 112.1 Performed By: #### L 500.2500, L100.0500 #### [facility] [address] [place], [address] Carbon dioxide measurementOr dered By: Violette Abdi on 01-08-2025 CO2 [Moles/Vol] 23.9 mmol/L 22.0-29.0 [facility] Chloride measurementOrdered By: Violette Abdi on 01-08-2025 Chloride [Moles/Vol] 106 mmol/L 96-108 [facility] Erythrocyte distribution wid th ratioOrdered By: Violette Abdi on 01-08-2025 Erythrocyte distribution width (RBC) [Ratio] 14.0 % 11.6-14.6 [facility] Erythrocyte distribution wid th standard deviationOrdered By: Violette Abdi on 01-08-2025 Erythrocyte distribution width (RBC) [Entitic vol] 46.1 fL High 35.1-43.9 [facility] Erythrocyte distribution width (RBC) [Ratio] 46.1 fl High 35.1-43.9 [facility] GFR/1.73 sq M.predicted jasen g non-blacks MDRD (S/P/Bld) [Vol rate/Area]Ordered By: Violette Abdi on 01-08-2025 Estimated GFR (MDRD) Non-Af Amer 97 >60 [facility] Comment on above: mL/min/1.73m2 CKD-EP I Creatinine Equation (2020) Glomerular filtration rate ( GFR) estimation/1.73 sq m using serum, plasma, or whole bOrdered By: Violette Abdi on 01-08-2025 GFR/1.73 sq M.predicted among non-blacks MDRD (S/P/Bld) [Vol rate/Area] 97 mL/min/{1.73_m2} >60 [facility] Comment on above: mL/min/1.73m2 CKD-EP I Creatinine Equation (2020) Hematocrit Auto (Bld) [Volum e fraction]Ordered By: Violette Abdi on 01-08-2025 Hematocrit (Bld) [Volume fraction] 44.2 % 40-54 [facility] Hemoglobin measurementOrdere d By: Violette Abdi on 01-08-2025 Hemoglobin (Bld) [Mass/Vol] 14.4 g/dL 13.0-16.5 [facility] MCV (mean corpuscular volume ) determinationOrdered By: Violette Abdi on 01-08-2025 MCV (RBC) [Entitic vol] 89.8 fL 80-94 [facility] Mean corpuscular hemoglobin (MCH) determinationOrdered By: Violette Abdi on 01-08-2025 MCH (RBC) [Entitic mass] 29.3 pg 27.0-32.0 [facility] Mean corpuscular hemoglobin concentration (MCHC) determinationOrdered By: Violette Abdi on 01-08-2025 MCHC (RBC) [Mass/Vol] 32.6 g/dL 32-36 [facility] Mean platelet volume determi nationOrdered By: Violette Abdi on 01-08-2025 Platelet mean volume (Bld) [Entitic vol] 11.6 fL 6.2-12.0 [facility] Platelet countOrdered By: Benji Crespo on 01-08-2025 Platelets (Bld) [#/Vol] 260 10*3/uL 150-450 [facility] RBC Auto (Bld) [#/Vol]Ordere d By: Violette Abdi on 01-08-2025 RBC (Bld) [#/Vol] 4.92 10*6/uL 4.6-6.2 [facility] Serum creatinine measurement (mass/volume)Ordered By: Violette Abdi on 01-08-2025 Creatinine [Mass/Vol] 0.82 mg/dL 0.70-1.20 [facility] Serum glucose measurement (m ass/volume)Ordered By: Violette Abdi on 01-08-2025 Glucose [Mass/Vol] 77 mg/dL 70-99 [facility] Serum or plasma anion gap de termination (moles/volume)Ordered By: Violette Abdi on 01-08-2025 Anion gap [Moles/Vol] 11 mmol/L 5-15 [facility] Serum or plasma calcium gael urement (mass/volume)Ordered By: Violette Abdi on 01-08-2025 Calcium [Mass/Vol] 9.0 mg/dL 7.6-11.0 [facility] Serum or plasma potassium me asurementOrdered By: Violette Abdi on 01-08-2025 Potassium [Moles/Vol] 4.2 mmol/L 3.3-5.1 [facility] Comment on above: Hemolysis present, R esults could be affected. Serum or plasma sodium measu rement (moles/volume)Ordered By: Violette Abdi on 01-08-2025 Sodium [Moles/Vol] 141 mmol/L 133-145 [facility] Serum or plasma urea nitroge n measurement (mass/volume)Ordered By: Violette Abdi on 01-08-2025 Urea nitrogen [Mass/Vol] 16 mg/dL 4-19 [facility] White blood cell (WBC) count Ordered By: Violette Abdi on 01-08-2025 WBC (Bld) [#/Vol] 7.3 10*3/uL 4.4-11.0 [facility] BETA 2 GLYCOPROTEIN, IGGon 0 12-12-2024 Beta 2 glycoprotein 1 IgG IA Qn <9 Normal <20 [facility] Comment on above: Order Comment: Speci men Type: BLOOD SPECIMENOrdering Facility: [facility] Address: [address] [place] [address] Result Comment: <20 SGU [id number] SGU Low Positive>80 SGU High PositiveThese results were obtained with the [employer] QUANTA Lite B2 GPI IgG INGRIS. B2 GPI IgG values obtained with different manufacturers' assay methods may not be used interchangeably. The magnitude of the reported IgG levels cannot be correlated to an endpoint titer. Performed By: #### C JENNI NOVAK, BETA2G, BETA2M, 5076-5 ####[facility] LABCLIA [id number] [place] [address] [place] BETA 2 GLYCOPROTEIN, IGMon 0 12-12-2024 Beta 2 glycoprotein 1 IgM IA Qn <9 Normal <20 [facility] Comment on above: Order Comment: Gemini wesley Type: BLOOD SPECIMENOrdering Facility: [facility] Address: [address] [place] [address] Result Comment: <20 [facility] [id number] [facility] Low Positive>80 [facility] High positiveThese results were obtained with the [employer] QUANTA Lite B2 GPI IgM INGRIS. B2 GPI IgM values obtained with different manufacturers' assay methods may not be used interchangeably. The magnitude of the reported IgM levels cannot be correlated to an endpoint titer. Performed By: #### C SCARLET CARDIM, BETA2G, BETA2M, 5076-5 ####[facility] LABCLIA [id number] [address] [place] CARDIOLIPIN IGG ABSon 2024 Cardiolipin IgG IA Qn (S) <9.0 Normal <15.0 [facility] Comment on above: Order Comment: Gemini [facility] Type: BLOOD SPECIMENOrdering Facility: [facility] Address: [address] [place] [address] Result Comment: <15 GPL [id number] GPL Indeterminate>20 GPL PositiveThe following results were obtained with the [employer] QUANTA Lite LILLIAN IgG III INGRIS. Cardiolipin IgG values obtained with the different manufacturers' assay methods may not be used interchangeably. The magnitude of the reported IgG levels cannot be correlated to an endpoint titer. Performed By: #### C SCARLET CARDIM, BETA2G, BETA2M, 5076-5 ####[facility] LABCLIA [id number] [address] [place] CARDIOLIPIN IGM ABSon 2024 Cardiolipin IgM IA Qn (S) 11.1 MPL Normal <12.5 [facility] Comment on above: Order Comment: Gemini wesley Type: BLOOD SPECIMENOrdering Facility: [facility] Address: [address] [place] [address] Result Comment: <12. 5 MPL [id number] MPL Indeterminate>20 MPL PositiveThe following results were obtained with the [employer] QUANTA Lite LILLIAN IgM III INGRIS. Cardiolipin IgM values obtained with the different manufacturers' assay methods may not be used interchangeably. The magnitude of the reported IgM levels cannot be correlated to an endpoint titer.??? Performed By: #### C JENNI NOVAK, BETA2G, BETA2M, 5076-5 ####[facility] LABCLIA [id number] [place] [address] [place] CBC W Auto Differential pane l (Bld)on 12-12-2024 Basophils (Bld) [#/Vol] 0.03 10*3/uL [facility] Basophils/100 WBC (Bld) 0.5 % [facility] Differential cell count method Nom (Bld) Auto [facility] Eosinophils (Bld) [#/Vol] 0.19 10*3/uL [facility] Eosinophils/100 WBC (Bld) 3.0 % [facility] Erythrocyte distribution width (RBC) [Ratio] 13.9 % 11.5 - 15.0 % [facility] Hematocrit (Bld) [Volume fraction] 43.5 % 39.0 - 51.0 % [facility] Hemoglobin (Bld) [Mass/Vol] 14.4 g/dL 13.0 - 17.0 g/dL [facility] Immature granulocytes (Bld) [#/Vol] [facility] Immature granulocytes/100 WBC (Bld) 0.2 % [facility] Lymphocytes (Bld) [#/Vol] 1.14 10*3/uL [facility] Lymphocytes/100 WBC (Bld) 18.0 % [facility] MCH (RBC) [Entitic mass] 30.1 pg 26.0 - 34.0 pg [facility] MCHC (RBC) [Mass/Vol] 33.1 g/dL 30.5 - 36.0 g/dL [facility] MCV (RBC) [Entitic vol] 91.0 fL 80.0 - 100.0 fL [facility] Monocytes (Bld) [#/Vol] 0.67 10*3/uL [facility] Monocytes/100 WBC (Bld) 10.6 % [facility] Neutrophils (Bld) [#/Vol] 4.30 10*3/uL [facility] Neutrophils/100 WBC (Bld) 67.7 % [facility] Nucleated RBC (Bld) [#/Vol] NINF [facility] Nucleated RBC/100 WBC (Bld) [Ratio] 0.0 % /100 WBC [facility] Platelet mean volume (Bld) [Entitic vol] 11.2 fL 9.0 - 12.7 fL [facility] Platelets (Bld) [#/Vol] 268 10*3/uL [facility] RBC (Bld) [#/Vol] 4.78 10*6/uL 4.20 - 6.0 0 m/uL [facility] WBC (Bld) [#/Vol] 6.34 10*3/uL [facility] Basophils (Bld) [#/Vol] 0.03 10*3/uL Normal <0.11 [facility] Comment on above: Order Comment: Speci men Type: BLOOD SPECIMENOrdering Facility: [facility] Address: [address] [place] [address] Performed By: #### 5 7021-8 ####[facility] LABORATORYCLIA [id number] [address] [place] Basophils/100 WBC (Bld) 0.5 % Normal [facility] Comment on above: Order Comment: Speci men Type: BLOOD SPECIMENOrdering Facility: [facility] Address: [address] [place] [address] Performed By: #### 5 7021-8 ####[facility] LABORATORYCLIA [id number] [address] [place] Differential cell count method Nom (Bld) Auto Normal [facility] Comment on above: Order Comment: Speci men Type: BLOOD SPECIMENOrdering Facility: [facility] Address: [address] [place] [address] Performed By: #### 5 7021-8 ####[facility] LABORATORYCLIA [id number] [place] [address] [place] Eosinophils (Bld) [#/Vol] 0.19 10*3/uL Normal <0.46 [facility] Comment on above: Order Comment: Speci men Type: BLOOD SPECIMENOrdering Facility: [facility] Address: [address] [place] [address] Performed By: #### 5 7021-8 ####[facility] LABORATORYCLIA [id number] [address] [place] Eosinophils/100 WBC (Bld) 3.0 % Normal [facility] Comment on above: Order Comment: Speci men Type: BLOOD SPECIMENOrdering Facility: [facility] Address: [address] [place] [address] Performed By: #### 5 7021-8 ####[facility] LABORATORYCLIA [id number] [address] [place] Erythrocyte distribution width (RBC) [Ratio] 13.9 % Normal 11.5-15.0 [facility] Comment on above: Order Comment: Speci men Type: BLOOD SPECIMENOrdering Facility: [facility] Address: [address] [place] [address] Performed By: #### 5 7021-8 ####[facility] LABORATORYCLIA [id number] [address] [place] Hematocrit (Bld) [Volume fraction] 43.5 % Normal 39.0-51.0 [facility] Comment on above: Order Comment: Speci men Type: BLOOD SPECIMENOrdering Facility: [facility] Address: [address] [place] [address] Performed By: #### 5 7021-8 ####[facility] LABORATORYCLIA [id number] [address] [place] Hemoglobin (Bld) [Mass/Vol] 14.4 g/dL Normal 13.0-17.0 [facility] Comment on above: Order Comment: Speci men Type: BLOOD SPECIMENOrdering Facility: [facility] Address: [address] [place] [address] Performed By: #### 5 7021-8 ####[facility] LABORATORYCLIA [id number] [address] [place] Immature granulocytes (Bld) [#/Vol] 10*3/uL Normal <0.10 [facility] Comment on above: Order Comment: Speci men Type: BLOOD SPECIMENOrdering Facility: [facility] Address: [address] [place] [address] Performed By: #### 5 7021-8 ####[facility] LABORATORYCLIA [id number] [address] [place] Immature granulocytes/100 WBC (Bld) 0.2 % Normal [facility] Comment on above: Order Comment: Speci men Type: BLOOD SPECIMENOrdering Facility: [facility] Address: [address] [place] [address] Performed By: #### 5 7021-8 ####[facility] LABORATORYCLIA [id number] [address] [place] Lymphocytes (Bld) [#/Vol] 1.14 10*3/uL Normal 1.00-4.00 [facility] Comment on above: Order Comment: Speci men Type: BLOOD SPECIMENOrdering Facility: [facility] Address: [address] [place] [address] Performed By: #### 5 7021-8 ####[facility] LABORATORYCLIA [id number] [address] Lymphocytes/100 WBC (Bld) 18.0 % Normal [facility] Comment on above: Order Comment: Speci men Type: BLOOD SPECIMENOrdering Facility: [facility] Address: [address] [place] [address] Performed By: #### 5 7021-8 ####[facility] LABORATORYCLIA [id number] [place] [address] [place] MCH (RBC) [Entitic mass] 30.1 pg Normal 26.0-34.0 [facility] Comment on above: Order Comment: Speci men Type: BLOOD SPECIMENOrdering Facility: [facility] Address: [address] [place] [address] Performed By: #### 5 7021-8 ####[facility] LABORATORYCLIA [id number] [address] [place] MCHC (RBC) [Mass/Vol] 33.1 g/dL Normal 30.5-36.0 [facility] Comment on above: Order Comment: Speci men Type: BLOOD SPECIMENOrdering Facility: [facility] Address: [address] [place] [address] Performed By: #### 5 7021-8 ####[facility] LABORATORYCLIA [id number] [address] [place] MCV (RBC) [Entitic vol] 91.0 fL Normal 80.0-100.0 [facility] Comment on above: Order Comment: Speci men Type: BLOOD SPECIMENOrdering Facility: [facility] Address: [address] [place] [address] Performed By: #### 5 7021-8 ####[facility] LABORATORYCLIA [id number] [address] [place] Monocytes (Bld) [#/Vol] 0.67 10*3/uL Normal <0.87 [facility] Comment on above: Order Comment: Speci men Type: BLOOD SPECIMENOrdering Facility: [facility] Address: [address] [place] [address] Performed By: #### 5 7021-8 ####[facility] LABORATORYCLIA [id number] [address] [facility] Monocytes/100 WBC (Bld) 10.6 % Normal [facility] Comment on above: Order Comment: Speci men Type: BLOOD SPECIMENOrdering Facility: [facility] Address: [address] [place] [address] Performed By: #### 5 7021-8 ####[facility] LABORATORYCLIA [id number] [place] [address] [place] Neutrophils (Bld) [#/Vol] 4.30 10*3/uL Normal 1.45-7.50 [facility] Comment on above: Order Comment: Speci men Type: BLOOD SPECIMENOrdering Facility: [facility] Address: [address] [place] [address] Performed By: #### 5 7021-8 ####[facility]ORATORYCLIA [id number] [address] [place] Neutrophils/100 WBC (Bld) 67.7 % Normal [facility] Comment on above: Order Comment: Speci men Type: BLOOD SPECIMENOrdering Facility: [facility] Address: [address] [place] [address] Performed By: #### 5 7021-8 ####[facility]ORATORYCLIA [id number] [address] [address] [place] Nucleated RBC (Bld) [#/Vol] 10*3/uL Normal <0.01 [facility] Comment on above: Order Comment: Speci men Type: BLOOD SPECIMENOrdering Facility: [facility] Address: [address] [place] [address] Performed By: #### 5 7021-8 ####[facility] LABORATORYCLIA [id number] [address] Nucleated RBC/100 WBC (Bld) [Ratio] 0.0 /100 WBC Normal [facility] Comment on above: Order Comment: Speci men Type: BLOOD SPECIMENOrdering Facility: [facility] Address: [address] [place] [address] Performed By: #### 5 7021-8 ####[facility] LABORATORYCLIA [id number] [address] [place] Platelet mean volume (Bld) [Entitic vol] 11.2 fL Normal 9.0-12.7 [facility] Comment on above: Order Comment: Speci men Type: BLOOD SPECIMENOrdering Facility: [facility] Address: [address] [place] [address] Performed By: #### 5 7021-8 ####[facility] LABORATORYCLIA [id number] [address] [place] Platelets (Bld) [#/Vol] 268 10*3/uL Normal 150-400 [facility] Comment on above: Order Comment: Speci men Type: BLOOD SPECIMENOrdering Facility: [facility] Address: [address] [place] [address] Performed By: #### 5 7021-8 ####[facility] LABORATORYCLIA [id number] [address] OF [facility] RBC (Bld) [#/Vol] 4.78 10*6/uL Normal 4.20-6.00 [facility] Comment on above: Order Comment: Speci men Type: BLOOD SPECIMENOrdering Facility: [facility] Address: [address] [place] [address] Performed By: #### 5 7021-8 ####[facility] LABORATORYCLIA [id number] [address] WBC (Bld) [#/Vol] 6.34 10*3/uL Normal 3.70-11.00 [facility] Comment on above: Order Comment: Speci men Type: BLOOD SPECIMENOrdering Facility: [facility] Address: [address] [place] [address] Performed By: #### 5 7021-8 ####[facility] LABORATORYCLIA [id number] [address] CNOVSPon 12-12-2024 CNOVSP Normal [facility] Cardiolipin IgA Ser IA-aCnco n 12-12-2024 Cardiolipin IgA IA Qn (S) <9.0 Normal <12.0 [facility] Comment on above: Order Comment: Speci men Type: BLOOD SPECIMENOrdering Facility: [facility] Address: [address] [place] [address] Result Comment: <12 APL [id number] APL Indeterminate>20 APL PositiveThe following results were obtained with the [employer] QUANTA Lite LILLIAN IgA III INGRIS. Cardiolipin IgA values obtained with the different manufacturers' assay methods may not be used interchangeably. The magnitude of the reported IgA levels cannot be correlated to an endpoint titer. Performed By: #### C ARDIG, CARDIM, BETA2G, BETA2M, 5076-5 ####[facility] LABCLIA [id number] [facility] [address] [address] [place] Comprehensive metabolic 2000 panelon 12-12-2024 Albumin [Mass/Vol] 3.7 g/dL Low 3.9 - 4.9 g/dL [facility] ALP [Catalytic activity/Vol] 121 U/L High 38 - 113 U/L [facility] ALT With P-5'-P [Catalytic activity/Vol] 15 U/L 10 - 54 U/L [facility] Anion gap [Moles/Vol] 11 mmol/L 8 - 15 mmol/L [facility] AST With P-5'-P [Catalytic activity/Vol] 14 U/L 14 - 40 U/L [facility] Bilirubin [Mass/Vol] 0.4 mg/dL 0.2 - 1 .3 mg/dL [facility] Calcium [Mass/Vol] 8.6 mg/dL 8.5 - 10. 2 mg/dL [facility] Chloride [Moles/Vol] 108 mmol/L High 98 - 10 7 mmol/L [facility] CO2 [Moles/Vol] 23 mmol/L 22 - 30 mmol/L [facility] Creatinine [Mass/Vol] 0.91 mg/dL 0.73 - 1.22 mg/dL [facility] GFR/1.73 sq M.predicted among non-blacks MDRD (S/P/Bld) [Vol rate/Area] 94 mL/min/{1.73_m2} - PINF [facility] Comment on above: Estimated Glomerular Filtration Rate (eGFR) is calculated using the 2020 CKD-EPI creatinine equation. This equation utilizes serum creatinine, sex, and age as parameters. The creatinine assay has traceable calibration to isotope dilution-mass spectrometry. Refer to KDIGO guidelines for clinical interpretation. In patients with unstable renal function, e.g. those with acute kidney injury, the eGFR may not accurately reflect actual GFR. Glucose [Mass/Vol] 123 mg/dL High 74 - 99 mg/dL [facility] Comment on above: The [place] Diabete s Association (ADA) provides guidance for cutoff values for fasting glucose and random glucose. The ADA defines fasting as no caloric intake for at least 8 hours. Fasting plasma glucose results between 100 to 125 mg/dL indicate increased risk for diabetes (prediabetes). Fasting plasma glucose results greater than or equal to 126 mg/dL meet the criteria for diagnosis of diabetes. In the absence of unequivocal hyperglycemia, results should be confirmed by repeat testing. In a patient with classic symptoms of hyperglycemia or hyperglycemic crisis, random plasma glucose results greater than or equal to 200 mg/dL meet the criteria for diagnosis of diabetes. Reference: Standards of Medical Care in Diabetes 2016, [place] Diabetes Association. Diabetes Care. 2016.39(Suppl 1). Interpretation and review of laboratory results Abnormal [facility] Potassium [Moles/Vol] 3.7 mmol/L 3.7 - 5.1 mmol/L [facility] Protein [Mass/Vol] 6.3 g/dL 6.3 - 8.0 g/dL [facility] Sodium [Moles/Vol] 142 mmol/L 136 - 144 mmol/L [facility] Urea nitrogen [Mass/Vol] 20 mg/dL 9 - 24 mg/dL [facility] Albumin [Mass/Vol] 3.7 g/dL Low 3.9-4.9 [facility] Comment on above: Order Comment: Gemini olson Type: BLOOD SPECIMENOrdering Facility: [facility] Address: [address] [place] [address] Performed By: #### 2 4323-8 ####[facility] LABORATORYCLIA [id number] [address] STATES OF [facility] ALP [Catalytic activity/Vol] 121 U/L High 38-113 [facility] Comment on above: Order Comment: Gemini olson Type: BLOOD SPECIMENOrdering Facility: [facility] Address: [address] [place] [address] Performed By: #### 2 4323-8 ####[facility] LABORATORYCLIA [id number] [place] [address] [place] [facility] ALT With P-5'-P [Catalytic activity/Vol] 15 U/L Normal 10-54 [facility] Comment on above: Order Comment: Gemini olson Type: BLOOD SPECIMENOrdering Facility: [facility] Address: [address] [place] [address] Performed By: #### 2 4323-8 ####[facility] LABORATORYCLIA [id number] [address] [place] Anion gap [Moles/Vol] 11 mmol/L Normal 8-15 [facility] Comment on above: Order Comment: Speci men Type: BLOOD SPECIMENOrdering Facility: [facility] Address: [address] [place] [address] Performed By: #### 2 4323-8 ####[facility]ORATORYCLIA [id number] [place] [address] [place] AST With P-5'-P [Catalytic activity/Vol] 14 U/L Normal 14-40 [facility] Comment on above: Order Comment: Speci men Type: BLOOD SPECIMENOrdering Facility: [facility] Address: [address] [place] [address] Performed By: #### 2 4323-8 ####[facility]ORATORYCLIA [id number] [place] [address] [place] Bilirubin [Mass/Vol] 0.4 mg/dL Normal 0.2-1.3 [facility] Comment on above: Order Comment: Speci men Type: BLOOD SPECIMENOrdering Facility: [facility] Address: [address] [place] [address] Performed By: #### 2 4323-8 ####[facility]ORATORYCLIA [id number] [place] [address] [place] Calcium [Mass/Vol] 8.6 mg/dL Normal 8.5-10.2 [facility] Comment on above: Order Comment: Speci men Type: BLOOD SPECIMENOrdering Facility: [facility] Address: [address] [place] [address] Performed By: #### 2 4323-8 ####[facility]ORATORYCLIA [id number] [place] [address] [place] Chloride [Moles/Vol] 108 mmol/L High 98-107 [facility] Comment on above: Order Comment: Speci men Type: BLOOD SPECIMENOrdering Facility: [facility] Address: [address] [place] [address] Performed By: #### 2 4323-8 ####[facility]ORATORYCLIA [id number] [place] [address] [place] CO2 [Moles/Vol] 23 mmol/L Normal 22-30 [facility] Comment on above: Order Comment: Speci men Type: BLOOD SPECIMENOrdering Facility: [facility] Address: [address] [place] [address] Performed By: #### 2 4323-8 ####[facility] LABORATORYCLIA [id number] [place] [id number] [place] Creatinine [Mass/Vol] 0.91 mg/dL Normal 0.73-1.22 [facility] Comment on above: Order Comment: Speci men Type: BLOOD SPECIMENOrdering Facility: [facility] Address: [address] [place] [address] Performed By: #### 2 4323-8 ####[facility] LABORATORYCLIA [id number] [place] [address] [place] Creatinine and Glomerular filtration rate.predicted panel (S/P/Bld) 94 mL/min/1.73m??? Normal >=60 [facility] Comment on above: Order Comment: Speci men Type: BLOOD SPECIMENOrdering Facility: [facility] Address: [address] [place] [address] Result Comment: Josseline mated Glomerular Filtration Rate (eGFR) is calculated using the 2020 CKD-EPI creatinine equation. This equation utilizes serum creatinine, sex, and age as parameters. The creatinine assay has traceable calibration to isotope dilution-mass spectrometry. Refer to KDIGO guidelines for clinical interpretation. In patients with unstable renal function, e.g. those with acute kidney injury, the eGFR may not accurately reflect actual GFR. Performed By: #### 2 4323-8 ####[facility] LABORATORYCLIA [id number] [place] [address] [place] Glucose [Mass/Vol] 123 mg/dL High 74-99 [facility] Comment on above: Order Comment: Speci men Type: BLOOD SPECIMENOrdering Facility: [facility] Address: [address] [place] [address] Result Comment: The [place] Diabetes Association (ADA) provides guidance for cutoff values for fasting glucose and random glucose. The ADA defines fasting as no caloric intake for at least 8 hours. Fasting plasma glucose results between 100 to 125 mg/dL indicate increased risk for diabetes (prediabetes).Fasting plasma glucose results greater than or equal to 126 mg/dL meet the criteria for diagnosis of diabetes. In the absence of unequivocal hyperglycemia, results should be confirmed by repeat testing. In a patient with classic symptoms of hyperglycemia or hyperglycemic crisis, random plasma glucose results greater than or equal to 200 mg/dL meet the criteria for diagnosis of diabetes.Reference: Standards of Medical Care in Diabetes 2016, [place] Diabetes Association. Diabetes Care. 2016.39(Suppl 1). Performed By: #### 2 4323-8 ####[facility] LABORATORYCLIA [id number] [place] [address] [place] Potassium [Moles/Vol] 3.7 mmol/L Normal 3.7-5.1 [facility] Comment on above: Order Comment: Speci men Type: BLOOD SPECIMENOrdering Facility: [facility] Address: [address] [place] [address] Performed By: #### 2 4323-8 ####[facility] LABORATORYCLIA [id number] [place] [address] [place] Protein [Mass/Vol] 6.3 g/dL Normal 6.3-8.0 [facility] Comment on above: Order Comment: Speci men Type: BLOOD SPECIMENOrdering Facility: [facility] Address: [address] [place] [address] Performed By: #### 2 4323-8 ####[facility] LABORATORYCLIA [id number] [place] [address] [place] Sodium [Moles/Vol] 142 mmol/L Normal 136-144 [facility] Comment on above: Order Comment: Speci men Type: BLOOD SPECIMENOrdering Facility: [facility] Address: [address] [place] [address] Performed By: #### 2 4323-8 ####[facility] LABORATORYCLIA [id number] [place] [address] [place] Urea nitrogen [Mass/Vol] 20 mg/dL Normal 9-24 [facility] Comment on above: Order Comment: Speci men Type: BLOOD SPECIMENOrdering Facility: [facility] Address: [address] [place] [address] Performed By: #### 2 4323-8 ####[facility] HOSPITALIA [id number] [place] [address] [place] FACTOR V LEIDEN/PCRon 2024 FACTOR V LEIDEN PCR REPORT Normal [facility] Comment on above: Order Comment: Speci men Type: BLOOD SPECIMENOrdering Facility: [facility] Address: [address] [place] [address] Result Comment: Fact or V Leiden PCRLaboratory Accession Number: [id number]:NEGATIVEInterpretation:The DNA sample is negative for the c.1601G>A variant (legacy ejmzV458G) in the Factor V (F5) gene. This variant is commonly known asFactor V Leiden. This result is not associated with an increased riskof thromboembolic disease. The Factor V Leiden assay will not detectindividuals with activated protein C resistance who do not have thec.1601G>A variant (less than 5% of those with activated protein Cresistance). These individuals may be identified by ordering thefunctional assay for Activated Protein C Resistance. Thromboembolicdisease is a multifactorial disorder, and other causes are notexcluded by this result.Methodology:Isolated genomic DNA from the patient's blood specimen is evaluatedfor the c.1601G>A (p.Rxm287Hhg;g.[id number]) variant of the F5 gene[RefSeq NM_000130.4; GRCh38/hg38] by multiplex polymerase chainreaction (PCR) followed by melting curve analysis.Limitations:This assay is designed to detect the c.1601G>A variant in the F5 gene.Uncommon variants or single nucleotide polymorphisms may affectbinding of probes and may rarely result in false negative, falsepositive or indeterminate results. This assay does not detect otherdisease-associated rare variants on F5 or other causes ofthromboembolic disease.Disclaimer:This test was developed and its performance characteristics determinedby [facility] Department. Ithas not been cleared or approved by the FDA. [facility] is regulated under CLIAas certified to perform high-complexity testing. This test is used forclinical purposes. It should not be regarded as investigational or forresearch.Testing and interpretation performed at [facility], [address] [place] [address]. [facility] Number: [id number]:1) Jackie Garcia Sharma P. The genetics of venous thromboembolism.A meta-analysis involving approximately 120,000 cases and 180,000controls. Thromb Haemost 2009;102(2):360-70.2) Inherited Thrombophilias in . AC PracticeBulletin.No.197.[place] College [employer] Obstetricians [employer] Gynecologists.Obstet Gynecol 2018;132:e18-34.3) Henrique CHAVEZ. Factor V Leiden Thrombophilia. GenetMed.2011;13(1):1-16.4) Pharmacogenomics summary [email or web address] reviewed by Indigo Michelle MD, PhD Performed By: #### F VLTRISTIAN ####[facility] ILLUMINA LIMSCLIA [id number] [place] [address] [place] FIBRINOGENon 12-12-2024 Fibrinogen Coag (PPP) [Mass/Vol] 383 mg/dL 200 - 400 mg/dL [facility] Fibrinogen Coag (PPP) [Mass/ Vol]on 12-12-2024 Interpretation and review of laboratory results Normal [facility] Fibrinogen PPP-mCncon 2024 Fibrinogen Coag (PPP) [Mass/Vol] 383 mg/dL Normal 200-400 [facility] Comment on above: Order Comment: Speci men Type: BLOOD SPECIMENOrdering Facility: [facility] Address: [address] [place] [address] Performed By: #### 3 255-7 ####[facility] LABORATORYCLIA [id number] [address] [place] PROTHROMBIN GENE PCRon 12-12 PROTHROMBIN GENE MUTATION Normal [facility] Comment on above: Order Comment: Speci men Type: BLOOD SPECIMENOrdering Facility: [facility] Address: [address] [place] [address] Result Comment: Prot hrombin Gene MutationLaboratory Accession Number: [id number]:NORMALInterpretation:The DNA sample is negative for the c.*97G>A variant (legacy feku15118P>A) in the 3' untranslated region of the Factor II (F2) gene.This result is not associated with an increased risk of thromboembolicdisease. Thromboembolic disease is a multifactorial disorder and othercauses are not excluded by this result.Methodology:Isolated Genomic DNA from the patient's blood specimen is evaluatedfor the c*97G>A (g.[id number]) variant of the F2 gene [RefSeqNM_000506.53;GRCh38/hg38] by multiplex polymerase chain reaction (PCR)followed by melting curve analysis.Limitations:This assay is designed to detect the c.*97G>A (64792C>A) variant inthe F2 gene. Uncommon variants or single nucleotide polymorphisms mayaffect binding of probes and may rarely result in false negative,false positive or indeterminate results. This assay does not detectother disease-associated rare variants in F2 or other causes ofthromboembolic disease.Disclaimer:This test was developed and its performance characteristics determinedby [facility]. Ithas not been cleared or approved by the FDA. [facility] Department is regulated under CLIAas certified to perform high-complexity testing. This test is used forclinical purposes. It should not be regarded as investigational or forresearch.Testing and interpretation performed at [facility], [address] [place] [address]. CLIA Number: [id number]:1) Inheritied Thrombophilias in . ACOG Practice Bulletin. No.197. [place] [employer] Obstetricians and Gynecologists. ObseteGynecol 2018;132:e18-34.2) Viridiana SR, Rianna FR, Retamiko PH, and Yoselin BLACK. A commongenetic variation in the 3'-untranslated region of the prothrombingene is associated with elevated plasma prothrombin levels and anincrease in venous thrombosis. Blood 88:3698-703, 1995.3) Alfredo I, Joseluis V, Donnie C, Kevin Salguero Opjlthunatc34924I>T: 16 new cases, association with the 24951C>G polymorphism,and literature review. J Thromb Haemost. 2009;9:1585-7.As reviewed by Indigo Michelle MD, PhD Performed By: #### P UMAIR ####[facility] JOSE GARY [id number] [address] [place] CNPNon 12-01-2024 CNPN Normal [facility] CNPNon 11-29-2024 CNP Normal [facility] Automated blood erythrocyte countOrdered By: Violette Abdi on 11-06-2024 RBC (Bld) [#/Vol] 4.87 10*6/uL Normal 4.6-6.2 [facility] Comment on above: Order Comment: 112.1 Performed By: #### L 100.0500, L500.2500 #### [facility] [address] [place], [address] Automated blood hematocrit ( percentage)Ordered By: Violette Abdi on 11-06-2024 Hematocrit (Bld) [Volume fraction] 43.3 % Normal 40-54 [facility] Comment on above: Order Comment: 112.1 Performed By: #### L 100.0500, L500.2500 #### [facility] [address] [place], [address] Basic Metabolic Profile (BMP )on 11-06-2024 BUN/CRE 21.4 RATIO High 10-20 [facility] Comment on above: Order Comment: 112.1 Performed By: #### L 100.0500, L500.2500 #### [facility] [address] [place], [address] CA,Total 9.0 mg/dL Normal 8.5-10.1 [facility] Comment on above: Order Comment: 112.1 Performed By: #### L 100.0500, L500.2500 #### [facility] [address] [place], [address] EST GFR - AA 126 mL/min Normal >60 [facility] Comment on above: Order Comment: 112.1 Result Comment: Afri can Ethiopian GFR Calc Performed By: #### L 100.0500, L500.2500 #### [facility] [address] [place], [address] GAP 5 Normal 5-15 [facility] Comment on above: Order Comment: 112.1 Performed By: #### L 100.0500, L500.2500 #### [facility] [address] [place], [address] GFR/1.73 sq M.predicted among non-blacks MDRD (S/P/Bld) [Vol rate/Area] 104 mL/min/{1.73_m2} Normal >60 [facility] Comment on above: Order Comment: 112.1 Result Comment: Non- GFR Calc Performed By: #### L 100.0500, L500.2500 #### [facility] [address] [place], [address] Blood urea nitrogen (BUN)/cr eatinine ratioOrdered By: Violette Abdi on 11-06-2024 Urea nitrogen/Creatinine [Mass ratio] 21.4 mg/mg High 10-20 [facility] CBC-Complete Blood Cnt No Di ffon 11-06-2024 RDW SD 45.2 fl High 35.1-43.9 [facility] Comment on above: Order Comment: 112.1 Performed By: #### L 100.0500, L500.2500 #### [facility] [address] [place], [address] Carbon dioxide measurementOr dered By: Violette Abdi on 11-06-2024 CO2 [Moles/Vol] 26.0 mmol/L Normal 21.0-32.0 [facility] Comment on above: Order Comment: 112.1 Performed By: #### L 100.0500, L500.2500 #### [facility] [address] [place], [address] Chloride measurementOrdered By: Violette Abdi on 11-06-2024 Chloride [Moles/Vol] 109 mmol/L High 98-107 [facility] Comment on above: Order Comment: 112.1 Performed By: #### L 100.0500, L500.2500 #### [facility] [address] [place], [address] Erythrocyte distribution wid th ratioOrdered By: Violette Abdi on 11-06-2024 Erythrocyte distribution width (RBC) [Ratio] 13.9 % Normal 11.6-14.6 [facility] Comment on above: Order Comment: 112.1 Performed By: #### L 100.0500, L500.2500 #### [facility] [address] [place], [address] Erythrocyte distribution wid th standard deviationOrdered By: Violette Abdi on 11-06-2024 Erythrocyte distribution width (RBC) [Entitic vol] 45.2 fL High 35.1-43.9 [facility] Estimated glomerular filtrat ion rate (GFR) AmericanOrdered By: Violette Abdi on 11-06-2024 Estimated GFR (MDRD) Amer 126 mL/min >60 [facility] Comment on above: GFR Calc Glomerular filtration rate ( GFR) estimationOrdered By: Violette Abdi on 11-06-2024 Estimated GFR (MDRD) Non-Af Amer 104 mL/min >60 [facility] Comment on above: Non- GFR Calc Glucose measurementOrdered B y: Violette Abdi on 11-06-2024 Glucose [Mass/Vol] 84 mg/dL Normal 74-106 [facility] Comment on above: Order Comment: 112.1 Performed By: #### L 100.0500, L500.2500 #### [facility] [address] [place], [address] Hemoglobin measurementOrdere d By: Violette Abdi on 11-06-2024 Hemoglobin (Bld) [Mass/Vol] 14.1 g/dL Normal 13.0-16.5 [facility] Comment on above: Order Comment: 112.1 Performed By: #### L 100.0500, L500.2500 #### [facility] [address] [place], [address] MCV (mean corpuscular volume ) determinationOrdered By: Violette Abdi on 11-06-2024 MCV (RBC) [Entitic vol] 88.9 fL Normal 80-94 [facility] Comment on above: Order Comment: 112.1 Performed By: #### L 100.0500, L500.2500 #### [facility] [address] [place], [address] Mean corpuscular hemoglobin (MCH) determinationOrdered By: Violette Abdi on 11-06-2024 MCH (RBC) [Entitic mass] 29.0 pg Normal 27.0-32.0 [facility] Comment on above: Order Comment: 112.1 Performed By: #### L 100.0500, L500.2500 #### [facility] [address] [place], [address] Mean corpuscular hemoglobin concentration (MCHC) determinationOrdered By: Violette Abdi on 11-06-2024 MCHC (RBC) [Mass/Vol] 32.6 g/dL Normal 32-36 [facility] Comment on above: Order Comment: 112.1 Performed By: #### L 100.0500, L500.2500 #### [facility] [address] [place], [address] Mean platelet volume determi nationOrdered By: Violette Abdi on 11-06-2024 Platelet mean volume (Bld) [Entitic vol] 11.5 fL Normal 6.2-12.0 [facility] Comment on above: Order Comment: 112.1 Performed By: #### L 100.0500, L500.2500 #### [facility] [address] [place], [address] Platelet countOrdered By: Benji Crespo on 11-06-2024 Platelets (Bld) [#/Vol] 296 10*3/uL Normal 150-450 [facility] Comment on above: Order Comment: 112.1 Performed By: #### L 100.0500, L500.2500 #### [facility] [address] [place], [address] Potassium measurementOrdered By: Violette Abdi on 11-06-2024 Potassium [Moles/Vol] 4.1 mmol/L Normal 3.5-5.1 [facility] Comment on above: Order Comment: 112.1 Performed By: #### L 100.0500, L500.2500 #### [facility] [address] [place], [address] Serum anion gap measurementO rdered By: Violette Abdi on 11-06-2024 Anion gap [Moles/Vol] 5 mmol/L 5-15 [facility] Serum or plasma calcium gael urement (mass/volume)Ordered By: Violette Abdi on 11-06-2024 Calcium [Mass/Vol] 9.0 mg/dL 8.5-10.1 [facility] Serum or plasma creatinine m easurement (mass/volume)Ordered By: Violette Abdi on 11-06-2024 Creatinine [Mass/Vol] 0.79 mg/dL Normal 0.70-1.30 [facility] Comment on above: The validity of the calculated GFR & GFRAA in patients over 70 years has not been determined. Clinical correlation is essential. Order Comment: 112.1 Result Comment: The validity of the calculated GFR GFRAA in patients over 70 years has not been determined. Clinical correlation is essential. Performed By: #### L 100.0500, L500.2500 #### [facility] [address] [place], [address] Serum or plasma urea nitroge n measurement (mass/volume)Ordered By: Violette Abdi on 11-06-2024 Urea nitrogen [Mass/Vol] 17 mg/dL Normal 7-18 [facility] Comment on above: Order Comment: 112.1 Performed By: #### L 100.0500, L500.2500 #### [facility] [address] [place], [address] Sodium levelOrdered By: Ramon Abdi on 11-06-2024 Sodium [Moles/Vol] 140 mmol/L Normal 136-145 [facility] Comment on above: Order Comment: 112.1 Performed By: #### L 100.0500, L500.2500 #### [facility] [address] [place], [address] White blood cell (WBC) count Ordered By: Violette Abdi on 11-06-2024 WBC (Bld) [#/Vol] 6.8 10*3/uL Normal 4.4-11.0 [facility] Comment on above: Order Comment: 112.1 Performed By: #### L 100.0500, L500.2500 #### [facility] [address] [place], [address] CNOVon 10-27-2024 CNOV Normal [facility] CT BRAIN WO IVCONon 10-27-20 CT BRAIN WO IVCON Normal [facility] CNOVon 10-26-2024 CNOV Normal [facility] CNPNon 10-26-2024 CNPN Normal [facility] CNOVon 10-13-2024 CNOV Normal [facility] 10-10-2024 CNPN Normal [facility] CBC-Complete Blood Cnt No Di ffon 10-06-2024 Erythrocyte distribution width (RBC) [Ratio] 14.4 % Normal 11.6-14.6 [facility] Comment on above: Order Comment: 112.1 Performed By: #### L 500.4050, L100.0500 #### [facility] [address] [place], [address] Hematocrit (Bld) [Volume fraction] 42.2 % Normal 40-54 [facility] Comment on above: Order Comment: 112.1 Performed By: #### L 500.4050, L100.0500 #### [facility] [address] [place], [address] Hemoglobin (Bld) [Mass/Vol] 13.7 g/dL Normal 13.0-16.5 [facility] Comment on above: Order Comment: 112.1 Performed By: #### L 500.4050, L100.0500 #### [facility] [address] [place], [address] MCH (RBC) [Entitic mass] 29.5 pg Normal 27.0-32.0 [facility] Comment on above: Order Comment: 112.1 Performed By: #### L 500.4050, L100.0500 #### [facility] [address] [place], [address] MCHC (RBC) [Mass/Vol] 32.5 g/dL Normal 32-36 [facility] Comment on above: Order Comment: 112.1 Performed By: #### L 500.4050, L100.0500 #### [facility] [address] [place], [address] MCV (RBC) [Entitic vol] 90.8 fL Normal 80-94 [facility] Comment on above: Order Comment: 112.1 Performed By: #### L 500.4050, L100.0500 #### [facility] [address] [place], [address] Platelet mean volume (Bld) [Entitic vol] 11.8 fL Normal 6.2-12.0 [facility] Comment on above: Order Comment: 112.1 Performed By: #### L 500.4050, L100.0500 #### [facility] [address] [place], [address] Platelets (Bld) [#/Vol] 292 10*3/uL Normal 150-450 [facility] Comment on above: Order Comment: 112.1 Performed By: #### L 500.4050, L100.0500 #### [facility] [address] [place], [address] RBC (Bld) [#/Vol] 4.65 10*6/uL Normal 4.6-6.2 [facility] Comment on above: Order Comment: 112.1 Performed By: #### L 500.4050, L100.0500 #### [facility] [address] [place], [address] RDW SD 48.1 fl High 35.1-43.9 [facility] Comment on above: Order Comment: 112.1 Performed By: #### L 500.4050, L100.0500 #### [facility] [address] [place], [address] WBC (Bld) [#/Vol] 8.9 10*3/uL Normal 4.4-11.0 [facility] Comment on above: Order Comment: 112.1 Performed By: #### L 500.4050, L100.0500 #### [facility] [address] [place], [address] Comprehensive Metabolic Prof [facility] 10-06-2024 Albumin [Mass/Vol] 3.2 g/dL Normal 3.2-5.0 [facility] Comment on above: Order Comment: 112.1 Performed By: #### L 500.4050, L100.0500 #### [facility] [address] [place], [address] Albumin/Globulin [Mass ratio] 1.0 {ratio} Normal 0.9-2.4 [facility] Comment on above: Order Comment: 112.1 Performed By: #### L 500.4050, L100.0500 #### [facility] [address] [place], [address] ALK P 126 U/L High 45-117 [facility] Comment on above: Order Comment: 112.1 Performed By: #### L 500.4050, L100.0500 #### [facility] [address] [place], [address] ALT [Catalytic activity/Vol] 22 U/L Normal 16-61 [facility] Comment on above: Order Comment: 112.1 Performed By: #### L 500.4050, L100.0500 #### [facility] [address] [place], [address] AST [Catalytic activity/Vol] 15 U/L Normal 15-37 [facility] Comment on above: Order Comment: 112.1 Performed By: #### L 500.4050, L100.0500 #### [facility] [address] [place], [address] Bilirubin [Mass/Vol] 0.40 mg/dL Normal 0.20-1.00 [facility] Comment on above: Order Comment: 112.1 Result Comment: For patients on eltrombopag therapy, use of Dimension [place] TBIL is not recommended. Performed By: #### L 500.4050, L100.0500 #### [facility] [address] [place], [address] BUN/CRE 25.0 RATIO High 10-20 [facility] Comment on above: Order Comment: 112.1 Performed By: #### L 500.4050, L100.0500 #### [facility] [address] [place], [address] CA,Total 8.6 mg/dL Normal 8.5-10.1 [facility] Comment on above: Order Comment: 112.1 Performed By: #### L 500.4050, L100.0500 #### [facility] [address] [place], [address] Chloride [Moles/Vol] 112 mmol/L High 98-107 [facility] Comment on above: Order Comment: 112.1 Performed By: #### L 500.4050, L100.0500 #### [facility] [address] [place], [address] CO2 [Moles/Vol] 25.0 mmol/L Normal 21.0-32.0 [facility] Comment on above: Order Comment: 112.1 Performed By: #### L 500.4050, L100.0500 #### [facility] [address] [place], [address] Creatinine [Mass/Vol] 0.76 mg/dL Normal 0.70-1.30 [facility] Comment on above: Order Comment: 112.1 Result Comment: The validity of the calculated GFR GFRAA in patients over 70 years has not been determined. Clinical correlation is essential. Performed By: #### L 500.4050, L100.0500 #### [facility] [address] [place], [address] EST GFR - AA 132 mL/min Normal >60 [facility] Comment on above: Order Comment: 112.1 Result Comment: Afri can Ethiopian GFR Calc Performed By: #### L 500.4050, L100.0500 #### [facility] [address] [place], [address] GAP 5 Normal 5-15 [facility] Comment on above: Order Comment: 112.1 Performed By: #### L 500.4050, L100.0500 #### [facility] [address] [place], [address] GFR/1.73 sq M.predicted among non-blacks MDRD (S/P/Bld) [Vol rate/Area] 109 mL/min/{1.73_m2} Normal >60 [facility] Comment on above: Order Comment: 112.1 Result Comment: Non- GFR Calc Performed By: #### L 500.4050, L100.0500 #### [facility] [address] [place], [address] Globulin (S) [Mass/Vol] 3.1 g/dL Normal 2.2-4.2 [facility] Comment on above: Order Comment: 112.1 Performed By: #### L 500.4050, L100.0500 #### [facility] [address] [place], [address] Glucose [Mass/Vol] 83 mg/dL Normal 74-106 [facility] Comment on above: Order Comment: 112.1 Performed By: #### L 500.4050, L100.0500 #### [facility] [address] [place], [address] Potassium [Moles/Vol] 3.9 mmol/L Normal 3.5-5.1 [facility] Comment on above: Order Comment: 112.1 Performed By: #### L 500.4050, L100.0500 #### [facility] [address] [place], [address] Sodium [Moles/Vol] 142 mmol/L Normal 136-145 [facility] Comment on above: Order Comment: 112.1 Performed By: #### L 500.4050, L100.0500 #### [facility] [address] [place], [address] T PROT 6.3 g/dL Low 6.4-8.2 [facility] Comment on above: Order Comment: 112.1 Performed By: #### L 500.4050, L100.0500 #### [facility] [address] [place], [address] Urea nitrogen [Mass/Vol] 19 mg/dL High 7-18 [facility] Comment on above: Order Comment: 112.1 Performed By: #### L 500.4050, L100.0500 #### [facility] [address] [place], [address] CNPUnique 10-04-2024 CNPN Telephone ([facility]) ALFONZO SIMON ([id number]) 1960 M Date Time Provider Department 10/04/24 ANYA HUANG [facility] During your visit today, we recorded the following information about you: Anya Huang APRN.CNP 10/04/2024 10:03 AM Signed MRI results as below. Scan was ordered for routine follow up of microhemorrhages. Dr. Ko, can your office get him in to see someone? He is s/p traumatic subdural hematoma evacuation as well as excision of meningioma in April 2024, you last saw him June 2024. IMPRESSION: Interval development of sizable fluid collection within right-sided scalp along right frontotemporal lobe measuring 70 x 27 x 16 mm. There appears to be possible continuity to the adjacent extra-axial space, as detailed above. Leading differential consideration includes pseudomeningocele. Superimposed infection would not be excluded. Clinical correlation and neurosurgical follow-up is recommended. Anya Huang APRN.RESIDENTIAL REAL ESTATE ASSISTANT 10/09/2024 10:28 AM Signed Hello, Can you please contact patient to see if he has any symptoms of infection? Sees Neurosurgery through [facility] for post traumatic SDH evacuation and excision of meningioma and needs to speak with their office/see them [place]. Fwd to neurosurgery provider but 10/04 but I don't see anything documented in chart, may be out of office? Geni Calloway RN 10/09/2024 10:58 AM Signed Call to Dr. Ko's office [phone], advised that pt needs an appt [place] based on MRI. Librarian Helper states that she will call pt and get him scheduled sooner than 10/20 appt. Geni Calloway RN October 09, 2024 10:58 AM Geni Calloway RN 10/09/2024 12:47 PM Signed Call to pt an d spouse, no answer, LVM on identified VM box with return number. Geni Calloway RN October 09, 2024 12:47 PM Aimee Aceves 10/09/2024 12:59 PM Signed Patient's spouse returning missed call from office. Please call back when able. Geni Calloway RN 10/09/2024 1:12 PM Signed Called pt's spouse, states pt is back in rehab, had blood clots in lungs and legs, went to hospital for heparin gtt, then back to rehab. Phone number provided to Dr. Ko's office, states he will call to schedule sooner appt. 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 Dissolve dose in 4 - 8 ounces of liquid and take as directed. - miconazole 2 % powder Apply 1 application to affected area two times a day. - apixaban (ELIQUIS) 5 mg tab(s) Take 2 tablets by mouth two times a day for 5 days, THEN 1 tablet two times a day for 28 days. - nystatin (MYCOSTATIN) powder Apply 1 application to affected area four times daily. - tamsulosin (FLOMAX) 0.4 mg TAKE 1 CAPSULE AT BEDTIME - acetaminophen (TYLENOL) 500 mg tablet Take 2 tablets by mouth every 8 hours as needed for pain. - buPROPion XL (WELLBUTRIN XL) 300 mg 24 hr tablet Take 300 mg by mouth once daily. - hydralazine HCl (HYDRALAZINE ORAL) Take 40 mg by mouth every 8 hours. - amLODIPine (NORVASC) 5 mg tablet Take 2 tablets by mouth once daily. - senna-docusate (SENNA-S) 8.6-50 mg per tablet Take 1 tablet by mouth two times a day. - lisinopril (ZESTRIL) 40 mg tablet Take 1 tablet by mouth once daily. - atorvastatin (LIPITOR) 20 mg tablet Take 1 tablet by mouth once daily. Problem List As Of Date 10/04/2024 Noted Resolved Essential hypertension [I10] 05/25/2016 Benign prostatic hyperplasia with lower urinary*05/25/2016 Vitamin D deficiency [E55.9] 05/25/2016 Bradycardia [R00.1] 05/25/2016 Systolic murmur [R01.1] 05/25/2016 Bilateral lower extremity edema [R60.0] 05/25/2016 12/25/2020 Dyslipidemia [E78.5] 02/10/2018 HARJEET (obstructive sleep apnea) [G47.33] 02/10/2018 Obesity, Class III, BMI >= 40 E66.01 [E66.01] 02/13/2018 Obesity, Class II, BMI 35-39.9 [E66.812] 06/28/2018 12/25/2020 Closed fracture of left tibial plateau [S82.142*09/13/2019 12/25/2020 Closed fracture of shaft of left ulna with rout*10/03/2019 Closed fracture of right tibial plateau [S82.14*10/03/2019 Frequency of urination [R35.0] 12/23/2020 Nocturia [R35.1] 12/23/2020 Knee instability, unspecified laterality [M25.3*12/25/2020 General weakness [R53.1] 01/20/2021 Physical deconditioning [R53.81] 01/20/2021 Liver hemangioma [D18.03] 06/04/2021 Weakness [R53.1] 09/02/2022 Parkinson disease (HCC) [G20.A1] 09/05/2022 Bilateral pneumonia [J18.9] 10/30/2022 Leukocytosis [D72.829] 10/30/2022 JASMYN (acute kidney injury) (HCC) [N17.9] 10/30/2022 Acute encephalopathy [G93.40] 10/30/2022 Parkinsonian features [R29.818] 10/30/2022 B (more content not included)... Normal [facility] MRI BRAIN WO IVCONon 11-25-2 024 MRI BRAIN WO IVCON Invalid Interpretation Code [facility] CNPTOUTREACHon 09-29-2024 CNPTOUTREACH Normal [facility] CASE MANAGEMon 09-28-2024 CASE MANAGEM Normal [facility] CASE MANAGEM Normal [facility] CASE MANAGEM Normal [facility] CNDSon 09-28-2024 CNDS Normal [facility] Basic metabolic 2000 panelon 09-27-2024 Anion gap [Moles/Vol] 12 mmol/L Normal 8-15 [facility] Comment on above: Order Comment: Speci men Type: BLOOD SPECIMENOrdering Facility: [facility] Address: [address] [place] [address] Performed By: #### 2 4321-2 ####[facility] LABORATORYCLIA [id number] [place] [address] [place] Calcium [Mass/Vol] 8.6 mg/dL Normal 8.5-10.2 [facility] Comment on above: Order Comment: Speci men Type: BLOOD SPECIMENOrdering Facility: [facility] Address: [address] [place] [address] Performed By: #### 2 4321-2 ####[facility] LABORATORYCLIA [id number] [place] [address] [place] Chloride [Moles/Vol] 104 mmol/L Normal 98-107 [facility] Comment on above: Order Comment: Speci men Type: BLOOD SPECIMENOrdering Facility: [facility] Address: [address] [place] [address] Performed By: #### 2 4321-2 ####[facility]ATORYCLIA [id number] [place] [address] [place] CO2 [Moles/Vol] 23 mmol/L Normal 22-30 [facility] Comment on above: Order Comment: Speci men Type: BLOOD SPECIMENOrdering Facility: [facility] Address: [address] [place] [address] Performed By: #### 2 4321-2 ####[facility]ATORYCLIA [id number] [place] [address] [place] Creatinine [Mass/Vol] 0.75 mg/dL Normal 0.73-1.22 [facility] Comment on above: Order Comment: Gemini olson Type: BLOOD SPECIMENOrdering Facility: [facility] Address: [address] [place] [address] Performed By: #### 2 4321-2 ####[facility] LABORATORYCLIA [id number] [place] [address] [place] Creatinine and Glomerular filtration rate.predicted panel (S/P/Bld) 100 mL/min/1.73m??? Normal >=60 [facility] Comment on above: Order Comment: Gemini olson Type: BLOOD SPECIMENOrdering Facility: [facility] Address: [address] [place] [address] Result Comment: Josseline mated Glomerular Filtration Rate (eGFR) is calculated using the 2020 CKD-EPI creatinine equation. This equation utilizes serum creatinine, sex, and age as parameters. The creatinine assay has traceable calibration to isotope dilution-mass spectrometry. Refer to KDIGO guidelines for clinical interpretation. In patients with unstable renal function, e.g. those with acute kidney injury, the eGFR may not accurately reflect actual GFR. Performed By: #### 2 4321-2 ####[facility] LABORATORYCLIA [id number] [place] [id number] [place] Glucose [Mass/Vol] 95 mg/dL Normal 74-99 [facility] Comment on above: Order Comment: Gemini olson Type: BLOOD SPECIMENOrdering Facility: [facility] Address: [address] [place] [address] Result Comment: The [place] Diabetes Association (ADA) provides guidance for cutoff values for fasting glucose and random glucose. The ADA defines fasting as no caloric intake for at least 8 hours. Fasting plasma glucose results between 100 to 125 mg/dL indicate increased risk for diabetes (prediabetes).Fasting plasma glucose results greater than or equal to 126 mg/dL meet the criteria for diagnosis of diabetes. In the absence of unequivocal hyperglycemia, results should be confirmed by repeat testing. In a patient with classic symptoms of hyperglycemia or hyperglycemic crisis, random plasma glucose results greater than or equal to 200 mg/dL meet the criteria for diagnosis of diabetes.Reference: Standards of Medical Care in Diabetes 2016, [place] [employer] Association. Diabetes Care. 2016.39(Suppl 1). Performed By: #### 2 4321-2 ####[facility] LABORATORYCLIA [id number] [place] [address] [place] Potassium [Moles/Vol] 3.9 mmol/L Normal 3.7-5.1 [facility] Comment on above: Order Comment: Speci men Type: BLOOD SPECIMENOrdering Facility: [facility] Address: [address] [place] [address] Performed By: #### 2 4321-2 ####[facility] LABORATORYCLIA [id number] [address] [place] Sodium [Moles/Vol] 139 mmol/L Normal 136-144 [facility] Comment on above: Order Comment: Speci men Type: BLOOD SPECIMENOrdering Facility: [facility] Address: [address] [place] [address] Performed By: #### 2 4321-2 ####[facility] LABORATORYCLIA [id number] [address] [place] Urea nitrogen [Mass/Vol] 12 mg/dL Normal 9-24 [facility] Comment on above: Order Comment: Speci men Type: BLOOD SPECIMENOrdering Facility: [facility] Address: [address] [place] [address] Performed By: #### 2 4321-2 ####[facility] LABORATORYCLIA [id number] [address] [place] CASE MANAGEMon 09-27-2024 CASE MANAGEM Normal [facility] CASE MANAGEM Normal [facility] CBC W Auto Differential pane l (Bld)on 09-27-2024 Basophils (Bld) [#/Vol] 0.03 10*3/uL Normal <0.11 [facility] Comment on above: Order Comment: Speci men Type: BLOOD SPECIMENOrdering Facility: [facility] Address: [address] [place] [address] Performed By: #### 5 7021-8 ####[facility] LABORATORYCLIA [id number] [address] [facility] Basophils/100 WBC (Bld) 0.4 % Normal [facility] Comment on above: Order Comment: Speci men Type: BLOOD SPECIMENOrdering Facility: [facility] Address: [address] [place] [address] Performed By: #### 5 7021-8 ####[facility]ORATORYCLIA [id number] [address] Differential cell count method Nom (Bld) Auto Normal [facility] Comment on above: Order Comment: Speci men Type: BLOOD SPECIMENOrdering Facility: [facility] Address: [address] [place] [address] Performed By: #### 5 7021-8 ####[facility]ATORYCLIA [id number] [address] [place] Eosinophils (Bld) [#/Vol] 0.22 10*3/uL Normal <0.46 [facility] Comment on above: Order Comment: Speci men Type: BLOOD SPECIMENOrdering Facility: [facility] Address: [address] [place] [address] Performed By: #### 5 7021-8 ####[facility]ORATORYCLIA [id number] [address] Eosinophils/100 WBC (Bld) 2.7 % Normal [facility] Comment on above: Order Comment: Speci men Type: BLOOD SPECIMENOrdering Facility: [facility] Address: [address] [place] [address] Performed By: #### 5 7021-8 ####[facility]ORATORYCLIA [id number] [address] [place] Erythrocyte distribution width (RBC) [Ratio] 14.2 % Normal 11.5-15.0 [facility] Comment on above: Order Comment: Speci men Type: BLOOD SPECIMENOrdering Facility: [facility] Address: [address] [place] [address] Performed By: #### 5 7021-8 ####[facility]ORATORYCLIA [id number] [address] STATES OF [place] Hematocrit (Bld) [Volume fraction] 39.1 % Normal 39.0-51.0 [facility] Comment on above: Order Comment: Speci men Type: BLOOD SPECIMENOrdering Facility: [facility] Address: [address] [place] [address] Performed By: #### 5 7021-8 ####[facility] LABORATORYCLIA [id number] [place] [address] [place] Hemoglobin (Bld) [Mass/Vol] 12.7 g/dL Low 13.0-17.0 [facility] Comment on above: Order Comment: Speci men Type: BLOOD SPECIMENOrdering Facility: [facility] Address: [address] [place] [address] Performed By: #### 5 7021-8 ####[facility] LABORATORYCLIA [id number] [address] [place] Immature granulocytes (Bld) [#/Vol] 0.04 10*3/uL Normal <0.10 [facility] Comment on above: Order Comment: Speci men Type: BLOOD SPECIMENOrdering Facility: [facility] Address: [address] [place] [address] Performed By: #### 5 7021-8 ####[facility] LABORATORYCLIA [id number] [address] [place] Immature granulocytes/100 WBC (Bld) 0.5 % Normal [facility] Comment on above: Order Comment: Speci men Type: BLOOD SPECIMENOrdering Facility: [facility] Address: [address] [place] [address] Performed By: #### 5 7021-8 ####[facility] LABORATORYCLIA [id number] [place] [address] [place] Lymphocytes (Bld) [#/Vol] 1.20 10*3/uL Normal 1.00-4.00 [facility] Comment on above: Order Comment: Speci men Type: BLOOD SPECIMENOrdering Facility: [facility] Address: [address] [place] [address] Performed By: #### 5 7021-8 ####[facility] LABORATORYCLIA [id number] [address] Lymphocytes/100 WBC (Bld) 14.9 % Normal [facility] Comment on above: Order Comment: Speci men Type: BLOOD SPECIMENOrdering Facility: [facility] Address: [address] [place] [address] Performed By: #### 5 7021-8 ####[facility] LABORATORYCLIA [id number] [address] [place] MCH (RBC) [Entitic mass] 29.6 pg Normal 26.0-34.0 [facility] Comment on above: Order Comment: Speci men Type: BLOOD SPECIMENOrdering Facility: [facility] Address: [address] [place] [address] Performed By: #### 5 7021-8 ####[facility] LABORATORYCLIA [id number] [address] STATES OF [facility] MCHC (RBC) [Mass/Vol] 32.5 g/dL Normal 30.5-36.0 [facility] Comment on above: Order Comment: Speci men Type: BLOOD SPECIMENOrdering Facility: [facility] Address: [address] [place] [address] Performed By: #### 5 7021-8 ####[facility] LABORATORYCLIA [id number] [address] [place] MCV (RBC) [Entitic vol] 91.1 fL Normal 80.0-100.0 [facility] Comment on above: Order Comment: Speci men Type: BLOOD SPECIMENOrdering Facility: [facility] Address: [address] [place] [address] Performed By: #### 5 7021-8 ####[facility] LABORATORYCLIA [id number] [address] [place] Monocytes (Bld) [#/Vol] 0.59 10*3/uL Normal <0.87 [facility] Comment on above: Order Comment: Speci men Type: BLOOD SPECIMENOrdering Facility: [facility] Address: [address] [place] [address] Performed By: #### 5 7021-8 ####[facility]ORATORYCLIA [id number] [address] [place] Monocytes/100 WBC (Bld) 7.3 % Normal [facility] Comment on above: Order Comment: Speci men Type: BLOOD SPECIMENOrdering Facility: [facility] Address: [address] [place] [address] Performed By: #### 5 7021-8 ####[facility] LABORATORYCLIA [id number] [place] [address] [place] Neutrophils (Bld) [#/Vol] 5.99 10*3/uL Normal 1.45-7.50 [facility] Comment on above: Order Comment: Speci men Type: BLOOD SPECIMENOrdering Facility: [facility] Address: [address] [place] [address] Performed By: #### 5 7021-8 ####[facility] LABORATORYCLIA [id number] [address] [place] Neutrophils/100 WBC (Bld) 74.2 % Normal [facility] Comment on above: Order Comment: Speci men Type: BLOOD SPECIMENOrdering Facility: [facility] Address: [address] [place] [address] Performed By: #### 5 7021-8 ####[facility]ORATORYCLIA [id number] [place] [address] [place] Nucleated RBC (Bld) [#/Vol] 10*3/uL Normal <0.01 [facility] Comment on above: Order Comment: Speci men Type: BLOOD SPECIMENOrdering Facility: [facility] Address: [address] [place] [address] Performed By: #### 5 7021-8 ####[facility]ORATORYCLIA [id number] [place] [address] [place] Nucleated RBC/100 WBC (Bld) [Ratio] 0.0 /100 WBC Normal [facility] Comment on above: Order Comment: Speci men Type: BLOOD SPECIMENOrdering Facility: [facility] Address: [address] [place] [address] Performed By: #### 5 7021-8 ####[facility] LABORATORYCLIA [id number] [place] [address] [place] Platelet mean volume (Bld) [Entitic vol] 11.4 fL Normal 9.0-12.7 [facility] Comment on above: Order Comment: Speci men Type: BLOOD SPECIMENOrdering Facility: [facility] Address: [address] [place] [address] Performed By: #### 5 7021-8 ####[facility] LABORATORYCLIA [id number] [place] [address] [place] Platelets (Bld) [#/Vol] 228 10*3/uL Normal 150-400 [facility] Comment on above: Order Comment: Speci men Type: BLOOD SPECIMENOrdering Facility: [facility] Address: [address] [place] [address] Performed By: #### 5 7021-8 ####[facility] LABORATORYCLIA [id number] [place] [address] [place] RBC (Bld) [#/Vol] 4.29 10*6/uL Normal 4.20-6.00 [facility] Comment on above: Order Comment: Speci men Type: BLOOD SPECIMENOrdering Facility: [facility] Address: [address] [place] [address] Performed By: #### 5 7021-8 ####[facility] LABORATORYCLIA [id number] [place] [address] [place] WBC (Bld) [#/Vol] 8.07 10*3/uL Normal 3.70-11.00 [facility] Comment on above: Order Comment: Speci men Type: BLOOD SPECIMENOrdering Facility: [facility] Address: [address] [place] [address] Performed By: #### 5 7021-8 ####[facility] LABORATORYCLIA [id number] [place] [address] [place] THERAPY NTon 09-27-2024 THERAPY NT Normal [facility] CASE MANAGEMon 09-26-2024 CASE MANAGEM Normal [facility] CASE MGT INIT ASSESon 2023 CASE MGT INIT ASSES Normal [facility] CBC panel Auto (Bld)on 09-26 Erythrocyte distribution width (RBC) [Ratio] 14.5 % Normal 11.5-15.0 [facility] Comment on above: Order Comment: Speci men Type: BLOOD SPECIMENOrdering Facility: [facility] Address: [address] [place] [address] Performed By: #### 5 8410-2 ####[facility] LABORATORYCLIA [id number] [address] [place] Hematocrit (Bld) [Volume fraction] 36.2 % Low 39.0-51.0 [facility] Comment on above: Order Comment: Speci men Type: BLOOD SPECIMENOrdering Facility: [facility] Address: [address] [place] [address] Performed By: #### 5 8410-2 ####[facility] LABORATORYCLIA [id number] [address] [place] Hemoglobin (Bld) [Mass/Vol] 12.0 g/dL Low 13.0-17.0 [facility] Comment on above: Order Comment: Speci men Type: BLOOD SPECIMENOrdering Facility: [facility] Address: [address] [place] [address] Performed By: #### 5 8410-2 ####[facility] LABORATORYCLIA [id number] [address] [place] MCH (RBC) [Entitic mass] 29.8 pg Normal 26.0-34.0 [facility] Comment on above: Order Comment: Speci men Type: BLOOD SPECIMENOrdering Facility: [facility] Address: [address] [place] [address] Performed By: #### 5 8410-2 ####[facility] LABORATORYCLIA [id number] [address] [facility] MCHC (RBC) [Mass/Vol] 33.1 g/dL Normal 30.5-36.0 [facility] Comment on above: Order Comment: Speci men Type: BLOOD SPECIMENOrdering Facility: [facility] Address: [address] [place] [address] Performed By: #### 5 8410-2 ####[facility] LABORATORYCLIA [id number] [address] [place] MCV (RBC) [Entitic vol] 89.8 fL Normal 80.0-100.0 [facility] Comment on above: Order Comment: Speci men Type: BLOOD SPECIMENOrdering Facility: [facility] Address: [address] [place] [address] Performed By: #### 5 8410-2 ####[facility] LABORATORYCLIA [id number] [address] Nucleated RBC (Bld) [#/Vol] 10*3/uL Normal <0.01 [facility] Comment on above: Order Comment: Speci men Type: BLOOD SPECIMENOrdering Facility: [facility] Address: [address] [place] [address] Performed By: #### 5 8410-2 ####[facility] LABORATORYCLIA [id number] [address] [place] Platelet mean volume (Bld) [Entitic vol] 11.7 fL Normal 9.0-12.7 [facility] Comment on above: Order Comment: Speci men Type: BLOOD SPECIMENOrdering Facility: [facility] Address: [address] [place] [address] Performed By: #### 5 8410-2 ####[facility] LABORATORYCLIA [id number] [address] [place] Platelets (Bld) [#/Vol] 236 10*3/uL Normal 150-400 [facility] Comment on above: Order Comment: Speci men Type: BLOOD SPECIMENOrdering Facility: [facility] Address: [address] [place] [address] Performed By: #### 5 8410-2 ####[facility] LABORATORYCLIA [id number] [address] OF [facility] RBC (Bld) [#/Vol] 4.03 10*6/uL Low 4.20-6.00 [facility] Comment on above: Order Comment: Speci men Type: BLOOD SPECIMENOrdering Facility: [facility] Address: [address] [place] [address] Performed By: #### 5 8410-2 ####[facility] LABORATORYCLIA [id number] [address] WBC (Bld) [#/Vol] 8.18 10*3/uL Normal 3.70-11.00 [facility] Comment on above: Order Comment: Speci men Type: BLOOD SPECIMENOrdering Facility: [facility] Address: [address] [place] [address] Performed By: #### 5 8410-2 ####[facility] LABORATORYCLIA [id number] [address] PT EDon 09-26-2024 PT ED Normal [facility] THERAPY NTon 09-26-2024 THERAPY NT Normal [facility] aPTT PPPon 09-26-2024 aPTT Coag (PPP) [Time] 52.4 s High 23.0-32.4 [facility] Comment on above: Order Comment: Speci men Type: BLOOD SPECIMENOrdering Facility: [facility] Address: [address] [place] [address] Performed By: #### 1 4979-9 ####[facility] LABORATORYCLIA [id number] [address] CBC panel Auto (Bld)on 09-25 Erythrocyte distribution width (RBC) [Ratio] 14.4 % Normal 11.5-15.0 [facility] Comment on above: Order Comment: Speci men Type: BLOOD SPECIMENOrdering Facility: [facility] Address: [address] [place] [address] Performed By: #### 5 8410-2 ####[facility] LABORATORYCLIA [id number] [address] Hematocrit (Bld) [Volume fraction] 38.3 % Low 39.0-51.0 [facility] Comment on above: Order Comment: Speci men Type: BLOOD SPECIMENOrdering Facility: [facility] Address: [address] [place] [address] Performed By: #### 5 8410-2 ####[facility] LABORATORYCLIA [id number] [address] OF [facility] Hemoglobin (Bld) [Mass/Vol] 12.4 g/dL Low 13.0-17.0 [facility] Comment on above: Order Comment: Speci men Type: BLOOD SPECIMENOrdering Facility: [facility] Address: [address] [place] [address] Performed By: #### 5 8410-2 ####[facility] LABORATORYCLIA [id number] [address] MCH (RBC) [Entitic mass] 29.5 pg Normal 26.0-34.0 [facility] Comment on above: Order Comment: Speci men Type: BLOOD SPECIMENOrdering Facility: [facility] Address: [address] [place] [address] Performed By: #### 5 8410-2 ####[facility] LABORATORYCLIA [id number] [address] [place] MCHC (RBC) [Mass/Vol] 32.4 g/dL Normal 30.5-36.0 [facility] Comment on above: Order Comment: Speci men Type: BLOOD SPECIMENOrdering Facility: [facility] Address: [address] [place] [address] Performed By: #### 5 8410-2 ####[facility] LABORATORYCLIA [id number] [place] [address] [place] MCV (RBC) [Entitic vol] 91.0 fL Normal 80.0-100.0 [facility] Comment on above: Order Comment: Speci men Type: BLOOD SPECIMENOrdering Facility: [facility] Address: [address] [place] [address] Performed By: #### 5 8410-2 ####[facility] LABORATORYCLIA [id number] [place] [address] [place] Nucleated RBC (Bld) [#/Vol] 10*3/uL Normal <0.01 [facility] Comment on above: Order Comment: Speci men Type: BLOOD SPECIMENOrdering Facility: [facility] Address: [address] [place] [address] Performed By: #### 5 8410-2 ####[facility] LABORATORYCLIA [id number] [address] [place] Platelet mean volume (Bld) [Entitic vol] 11.3 fL Normal 9.0-12.7 [facility] Comment on above: Order Comment: Speci men Type: BLOOD SPECIMENOrdering Facility: [facility] Address: [address] [place] [address] Performed By: #### 5 8410-2 ####[facility] LABORATORYCLIA [id number] [address] [place] Platelets (Bld) [#/Vol] 196 10*3/uL Normal 150-400 [facility] Comment on above: Order Comment: Speci men Type: BLOOD SPECIMENOrdering Facility: [facility] Address: [address] [place] [address] Performed By: #### 5 8410-2 ####[facility] LABORATORYCLIA [id number] [place] [address] [place] RBC (Bld) [#/Vol] 4.21 10*6/uL Normal 4.20-6.00 [facility] Comment on above: Order Comment: Speci men Type: BLOOD SPECIMENOrdering Facility: [facility] Address: [address] [place] [address] Performed By: #### 5 8410-2 ####[facility] LABORATORYCLIA [id number] [place] [address] [place] WBC (Bld) [#/Vol] 9.15 10*3/uL Normal 3.70-11.00 [facility] Comment on above: Order Comment: Speci men Type: BLOOD SPECIMENOrdering Facility: [facility] Address: [address] [place] [address] Performed By: #### 5 8410-2 ####[facility] LABORATORYCLIA [id number] [place] [id number] [facility] [place] THERAPY NTon 09-25-2024 THERAPY NT Normal [facility] aPTT PPPon 09-25-2024 aPTT Coag (PPP) [Time] 66.2 s High 23.0-32.4 [facility] Comment on above: Order Comment: Speci men Type: BLOOD SPECIMENOrdering Facility: [facility] Address: [address] [place] [address] Performed By: #### 1 4979-9 ####[facility] LABORATORYCLIA [id number] [place] [address] [place] Basic metabolic 2000 panelon 09-24-2024 Anion gap [Moles/Vol] 11 mmol/L Normal 8-15 [facility] Comment on above: Order Comment: Speci men Type: BLOOD SPECIMENOrdering Facility: [facility] Address: [address] [place] [address] Performed By: #### 2 4321-2, ####[facility] LABORATORYCLIA [id number] [place] [address] [place] Calcium [Mass/Vol] 8.5 mg/dL Normal 8.5-10.2 [facility] Comment on above: Order Comment: Speci men Type: BLOOD SPECIMENOrdering Facility: [facility] Address: [address] [place] [address] Performed By: #### 2 4321-2, ####[facility] LABORATORYCLIA [id number] [address] [place] Chloride [Moles/Vol] 109 mmol/L High 98-107 [facility] Comment on above: Order Comment: Speci men Type: BLOOD SPECIMENOrdering Facility: [facility] Address: [address] [place] [address] Performed By: #### 2 4321-2, ####[facility] LABORATORYCLIA [id number] [address] [place] CO2 [Moles/Vol] 24 mmol/L Normal 22-30 [facility] Comment on above: Order Comment: Speci men Type: BLOOD SPECIMENOrdering Facility: [facility] Address: [address] [place] [address] Performed By: #### 2 4321-2, ####[facility] LABORATORYCLIA [id number] [address] OF [facility] Creatinine [Mass/Vol] 0.89 mg/dL Normal 0.73-1.22 [facility] Comment on above: Order Comment: Speci men Type: BLOOD SPECIMENOrdering Facility: [facility] Address: [address] [place] [address] Performed By: #### 2 4321-2, ####[facility] LABORATORYCLIA [id number] [address] Creatinine and Glomerular filtration rate.predicted panel (S/P/Bld) 95 mL/min/1.73m??? Normal >=60 [facility] Comment on above: Order Comment: Speci men Type: BLOOD SPECIMENOrdering Facility: [facility] Address: [address] [place] [address] Result Comment: Josseline mated Glomerular Filtration Rate (eGFR) is calculated using the 2020 CKD-EPI creatinine equation. This equation utilizes serum creatinine, sex, and age as parameters. The creatinine assay has traceable calibration to isotope dilution-mass spectrometry. Refer to KDIGO guidelines for clinical interpretation. In patients with unstable renal function, e.g. those with acute kidney injury, the eGFR may not accurately reflect actual GFR. Performed By: #### 2 4320-12, ####[facility] LABORATORYCLIA [id number] [place] [address] [place] Glucose [Mass/Vol] 106 mg/dL High 74-99 [facility] Comment on above: Order Comment: Speci men Type: BLOOD SPECIMENOrdering Facility: [facility] Address: [address] [place] [address] Result Comment: The [place] [employer] (ADA) provides guidance for cutoff values for fasting glucose and random glucose. The ADA defines fasting as no caloric intake for at least 8 hours. Fasting plasma glucose results between 100 to 125 mg/dL indicate increased risk for diabetes (prediabetes).Fasting plasma glucose results greater than or equal to 126 mg/dL meet the criteria for diagnosis of diabetes. In the absence of unequivocal hyperglycemia, results should be confirmed by repeat testing. In a patient with classic symptoms of hyperglycemia or hyperglycemic crisis, random plasma glucose results greater than or equal to 200 mg/dL meet the criteria for diagnosis of diabetes.Reference: Standards of Medical Care in Diabetes 2016, [place] [employer]. Diabetes Care. 2016.39(Suppl 1). Performed By: #### 2 4320-12, ####[facility] LABORATORYCLIA [id number] [place] [address] [place] Potassium [Moles/Vol] 3.9 mmol/L Normal 3.7-5.1 [facility] Comment on above: Order Comment: Speci men Type: BLOOD SPECIMENOrdering Facility: [facility] Address: [address] [place] [address] Performed By: #### 2 4320-12, ####[facility] LABORATORYCLIA [id number] [place] [address] [place] Sodium [Moles/Vol] 144 mmol/L Normal 136-144 [facility] Comment on above: Order Comment: Speci men Type: BLOOD SPECIMENOrdering Facility: [facility] Address: [address] [place], [place] [address] Performed By: #### 2 4320-12, ####[facility] LABORATORYCLIA [id number] [address] [place] Urea nitrogen [Mass/Vol] 15 mg/dL Normal 9-24 [facility] Comment on above: Order Comment: Speci men Type: BLOOD SPECIMENOrdering Facility: [facility] Address: [address] [place] [address] Performed By: #### 2 4321-2, 70873-9 ####[facility] LABORATORYCLIA [id number] [place] [address] [place] CBC W Auto Differential pane l (Bld)on 09-24-2024 Basophils (Bld) [#/Vol] 0.03 10*3/uL Normal <0.11 [facility] Comment on above: Order Comment: Speci men Type: BLOOD SPECIMENOrdering Facility: [facility] Address: [address] [place] [address] Performed By: #### 5 7021-8 ####[facility] LABORATORYCLIA [id number] [address] [place] Basophils/100 WBC (Bld) 0.3 % Normal [facility] Comment on above: Order Comment: Speci men Type: BLOOD SPECIMENOrdering Facility: [facility] Address: [address] [place] [address] Performed By: #### 5 7021-8 ####[facility] LABORATORYCLIA [id number] [address] [facility] Differential cell count method Nom (Bld) Auto Normal [facility] Comment on above: Order Comment: Speci men Type: BLOOD SPECIMENOrdering Facility: [facility] Address: [address] [place] [address] Performed By: #### 5 7021-8 ####[facility] LABORATORYCLIA [id number] [place] [address] [place] Eosinophils (Bld) [#/Vol] 0.21 10*3/uL Normal <0.46 [facility] Comment on above: Order Comment: Speci men Type: BLOOD SPECIMENOrdering Facility: [facility] Address: [address] [place] [address] Performed By: #### 5 7021-8 ####[facility] LABORATORYCLIA [id number] [address] Eosinophils/100 WBC (Bld) 1.9 % Normal [facility] Comment on above: Order Comment: Speci men Type: BLOOD SPECIMENOrdering Facility: [facility] Address: [address] [place] [address] Performed By: #### 5 7021-8 ####[facility] LABORATORYCLIA [id number] [address] [place] Erythrocyte distribution width (RBC) [Ratio] 14.6 % Normal 11.5-15.0 [facility] Comment on above: Order Comment: Speci men Type: BLOOD SPECIMENOrdering Facility: [facility] Address: [address] [place] [address] Performed By: #### 5 7021-8 ####[facility] LABORATORYCLIA [id number] [address] Hematocrit (Bld) [Volume fraction] 41.2 % Normal 39.0-51.0 [facility] Comment on above: Order Comment: Speci men Type: BLOOD SPECIMENOrdering Facility: [facility] Address: [address] [place] [address] Performed By: #### 5 7021-8 ####[facility] LABORATORYCLIA [id number] [address] [place] Hemoglobin (Bld) [Mass/Vol] 13.4 g/dL Normal 13.0-17.0 [facility] Comment on above: Order Comment: Speci men Type: BLOOD SPECIMENOrdering Facility: [facility] Address: [address] [place] [address] Performed By: #### 5 7021-8 ####[facility] LABORATORYCLIA [id number] [address] Immature granulocytes (Bld) [#/Vol] 0.06 10*3/uL Normal <0.10 [facility] Comment on above: Order Comment: Speci men Type: BLOOD SPECIMENOrdering Facility: [facility] Address: [address] [place] [address] Performed By: #### 5 7021-8 ####[facility]ATORYCLIA [id number] [address] Immature granulocytes/100 WBC (Bld) 0.5 % Normal [facility] Comment on above: Order Comment: Speci men Type: BLOOD SPECIMENOrdering Facility: [facility] Address: [address] [place] [address] Performed By: #### 5 7021-8 ####[facility] LABORATORYCLIA [id number] [address] [place] Lymphocytes (Bld) [#/Vol] 1.22 10*3/uL Normal 1.00-4.00 [facility] Comment on above: Order Comment: Speci men Type: BLOOD SPECIMENOrdering Facility: [facility] Address: [address] [place] [address] Performed By: #### 5 7021-8 ####[facility] LABORATORYCLIA [id number] [address] Lymphocytes/100 WBC (Bld) 10.8 % Normal [facility] Comment on above: Order Comment: Speci men Type: BLOOD SPECIMENOrdering Facility: [facility] Address: [address] [place] [address] Performed By: #### 5 7021-8 ####[facility]ORATORYCLIA [id number] [address] [facility] MCH (RBC) [Entitic mass] 29.7 pg Normal 26.0-34.0 [facility] Comment on above: Order Comment: Speci men Type: BLOOD SPECIMENOrdering Facility: [facility] Address: [address] [place] [address] Performed By: #### 5 7021-8 ####[facility]ATORYCLIA [id number] [address] MCHC (RBC) [Mass/Vol] 32.5 g/dL Normal 30.5-36.0 [facility] Comment on above: Order Comment: Speci men Type: BLOOD SPECIMENOrdering Facility: [facility] Address: [address] [place] [address] Performed By: #### 5 7021-8 ####[facility] LABORATORYCLIA [id number] [address] [place] MCV (RBC) [Entitic vol] 91.4 fL Normal 80.0-100.0 [facility] Comment on above: Order Comment: Speci men Type: BLOOD SPECIMENOrdering Facility: [facility] Address: [address] [place] [address] Performed By: #### 5 7021-8 ####[facility] LABORATORYCLIA [id number] [address] [place] Monocytes (Bld) [#/Vol] 0.94 10*3/uL High <0.87 [facility] Comment on above: Order Comment: Speci men Type: BLOOD SPECIMENOrdering Facility: [facility] Address: [address] [place] [address] Performed By: #### 5 7021-8 ####[facility] LABORATORYCLIA [id number] [address] [place] Monocytes/100 WBC (Bld) 8.4 % Normal [facility] Comment on above: Order Comment: Speci men Type: BLOOD SPECIMENOrdering Facility: [facility] Address: [address] [place] [address] Performed By: #### 5 7021-8 ####[facility] LABORATORYCLIA [id number] [place] [address] [place] Neutrophils (Bld) [#/Vol] 8.79 10*3/uL High 1.45-7.50 [facility] Comment on above: Order Comment: Speci men Type: BLOOD SPECIMENOrdering Facility: [facility] Address: [address] [place] [address] Performed By: #### 5 7021-8 ####[facility] LABORATORYCLIA [id number] [address] [place] Neutrophils/100 WBC (Bld) 78.1 % Normal [facility] Comment on above: Order Comment: Speci men Type: BLOOD SPECIMENOrdering Facility: [facility] Address: [address] [place] [address] Performed By: #### 5 7021-8 ####[facility] LABORATORYCLIA [id number] [place] [address] [place] Nucleated RBC (Bld) [#/Vol] 10*3/uL Normal <0.01 [facility] Comment on above: Order Comment: Speci men Type: BLOOD SPECIMENOrdering Facility: [facility] Address: [address] [place] [address] Performed By: #### 5 7021-8 ####[facility] LABORATORYCLIA [id number] [address] [place] Nucleated RBC/100 WBC (Bld) [Ratio] 0.0 /100 WBC Normal [facility] Comment on above: Order Comment: Speci men Type: BLOOD SPECIMENOrdering Facility: [facility] Address: [address] [place] [address] Performed By: #### 5 7021-8 ####[facility] LABORATORYCLIA [id number] [address] [place] Platelet mean volume (Bld) [Entitic vol] 12.1 fL Normal 9.0-12.7 [facility] Comment on above: Order Comment: Speci men Type: BLOOD SPECIMENOrdering Facility: [facility] Address: [address] [place] [address] Performed By: #### 5 7021-8 ####[facility] LABORATORYCLIA [id number] [place] [address] [place] Platelets (Bld) [#/Vol] 218 10*3/uL Normal 150-400 [facility] Comment on above: Order Comment: Speci men Type: BLOOD SPECIMENOrdering Facility: [facility] Address: [address] [place] [address] Performed By: #### 5 7021-8 ####[facility] LABORATORYCLIA [id number] [address] RBC (Bld) [#/Vol] 4.51 10*6/uL Normal 4.20-6.00 [facility] Comment on above: Order Comment: Speci men Type: BLOOD SPECIMENOrdering Facility: [facility] Address: [address] [place] [address] Performed By: #### 5 7021-8 ####[facility] LABORATORYCLIA [id number] [address] [place] WBC (Bld) [#/Vol] 11.25 10*3/uL High 3.70-11.00 [facility] Comment on above: Order Comment: Speci men Type: BLOOD SPECIMENOrdering Facility: [facility] Address: [address] [place] [address] Performed By: #### 5 7021-8 ####[facility] LABORATORYCLIA [id number] [address] CBC panel Auto (Bld)on 09-24 Erythrocyte distribution width (RBC) [Ratio] 14.4 % Normal 11.5-15.0 [facility] Comment on above: Order Comment: Speci men Type: BLOOD SPECIMENOrdering Facility: [facility] Address: [address] [place] [address] Performed By: #### 5 8410-2 ####[facility] LABORATORYCLIA [id number] [address] Hematocrit (Bld) [Volume fraction] 40.5 % Normal 39.0-51.0 [facility] Comment on above: Order Comment: Speci men Type: BLOOD SPECIMENOrdering Facility: [facility] Address: [address] [place] [address] Performed By: #### 5 8410-2 ####[facility] LABORATORYCLIA [id number] [address] Hemoglobin (Bld) [Mass/Vol] 13.3 g/dL Normal 13.0-17.0 [facility] Comment on above: Order Comment: Speci men Type: BLOOD SPECIMENOrdering Facility: [facility] Address: [address] [place] [address] Performed By: #### 5 8410-2 ####[facility] LABORATORYCLIA [id number] [address] [facility] MCH (RBC) [Entitic mass] 29.6 pg Normal 26.0-34.0 [facility] Comment on above: Order Comment: Speci men Type: BLOOD SPECIMENOrdering Facility: [facility] Address: [address] [place] [address] Performed By: #### 5 8410-2 ####[facility] LABORATORYCLIA [id number] [address] [place] MCHC (RBC) [Mass/Vol] 32.8 g/dL Normal 30.5-36.0 [facility] Comment on above: Order Comment: Speci men Type: BLOOD SPECIMENOrdering Facility: [facility] Address: [address] [place] [address] Performed By: #### 5 8410-2 ####[facility] LABORATORYCLIA [id number] [address] MCV (RBC) [Entitic vol] 90.2 fL Normal 80.0-100.0 [facility] Comment on above: Order Comment: Speci men Type: BLOOD SPECIMENOrdering Facility: [facility] Address: [address] [place] [address] Performed By: #### 5 8410-2 ####[facility] LABORATORYCLIA [id number] [address] Nucleated RBC (Bld) [#/Vol] 10*3/uL Normal <0.01 [facility] Comment on above: Order Comment: Speci men Type: BLOOD SPECIMENOrdering Facility: [facility] Address: [address] [place] [address] Performed By: #### 5 8410-2 ####[facility] LABORATORYCLIA [id number] [place] [address] [place] Platelet mean volume (Bld) [Entitic vol] 11.6 fL Normal 9.0-12.7 [facility] Comment on above: Order Comment: Speci men Type: BLOOD SPECIMENOrdering Facility: [facility] Address: [address] [place] [address] Performed By: #### 5 8410-2 ####[facility] LABORATORYCLIA [id number] [place] [address] [place] Platelets (Bld) [#/Vol] 218 10*3/uL Normal 150-400 [facility] Comment on above: Order Comment: Speci men Type: BLOOD SPECIMENOrdering Facility: [facility] Address: [address] [place] [address] Performed By: #### 5 8410-2 ####[facility] LABORATORYCLIA [id number] [place] [address] [place] RBC (Bld) [#/Vol] 4.49 10*6/uL Normal 4.20-6.00 [facility] Comment on above: Order Comment: Speci men Type: BLOOD SPECIMENOrdering Facility: [facility] Address: [address] [place] [address] Performed By: #### 5 8410-2 ####[facility] LABORATORYCLIA [id number] [place] [address] [place] WBC (Bld) [#/Vol] 12.43 10*3/uL High 3.70-11.00 [facility] Comment on above: Order Comment: Speci men Type: BLOOD SPECIMENOrdering Facility: [facility] Address: [address] [place] [address] Performed By: #### 5 8410-2 ####[facility] LABORATORYCLIA [id number] [address] [place] CONSULTon 09-24-2024 CONSULT Normal [facility] ECG COMPLETEon 09-24-2024 ECG COMPLETE Normal [facility] ED NOTEon 09-24-2024 ED NOTE HNO ID: [id number] Author: MASTER COSTELLO, RN Service: Nursing Author Type: Registered Nurse Type: ED Notes Filed: 09/24/2024 10:30 Note Text: Heparin stopped. Normal [facility] ED NOTE HNO ID: [id number] Author: MASTER COSTELLO RN Service: Nursing Author Type: Registered Nurse Type: ED Notes Filed: 09/24/2024 09:36 Note Text: . Normal [facility] ED NOTE HNO ID: [id number] Author: MASTER COSTELLO RN Service: Nursing Author Type: Registered Nurse Type: ED Notes Filed: 09/24/2024 09:30 Note Text: Pt. Eating breakfast. Normal [facility] ED NOTE Normal [facility] ED NOTE Normal [facility] ED NOTE HNO ID: [id number] Author: NIA SANCHEZ RN Service: Emergency Medicine Author Type: Registered Nurse Type: ED Notes Filed: 09/24/2024 03:02 Note Text: Patient saturated bedding in urine. Complete bedding change done at this time Normal [facility] ED PROV NOTEon 09-24-2024 ED PROV NOTE Normal [facility] ED PROV NOTE Normal [facility] HIGH SENSITIVITY TROPONIN T (THIRD) 3 HRS AFTER INITIALon 09-24-2024 Troponin T.cardiac High sensitivity method [Mass/Vol] 91 ng/L High <12 [facility] Comment on above: Order Comment: Speci men Type: BLOOD SPECIMENOrdering Facility: [facility] Address: [address] [place] [address] Performed By: #### L [id number] ####[facility] LABORATORYCLIA [id number] [place] [address] [place] HISTORY PHYSICALon HISTORY PHYSICAL Normal [facility] HISTORY PHYSICAL Normal [facility] Magnesium SerPl-mCncon 09-24 Magnesium [Mass/Vol] 2.0 mg/dL Normal 1.7-2.3 [facility] Comment on above: Order Comment: Speci men Type: BLOOD SPECIMENOrdering Facility: [facility] Address: [address] [place] [address] Performed By: #### 2 4321-2, 11806-1 ####[facility] LABORATORYCLIA [id number] [address] OF [facility] PT panel Coag (PPP)on 2023 INR Coag (PPP) [Relative time] 1.0 {INR} Normal 0.9-1.3 [facility] Comment on above: Order Comment: Speci men Type: BLOOD SPECIMENOrdering Facility: [facility] Address: [address] [place] [address] Result Comment: Ivonne min K Antagonist (VKA) Therapeutic Range: INR 2 to 3 (Target INR of 2.5)Note: For patients treated with VKA drugs, such as warfarin, the [employer] 2012 Guideline recommends a therapeutic INR range of 2 to 3 (target INR of 2.5). This recommendation includes high-risk patients with antiphospholipid syndrome with previous arterial or venous thromboembolism, current-generation mechanical or bioprosthetic aortic heart valve replacement.Note: Patients with mechanical aortic valve replacement and additional risk factors for thromboembolic events (atrial fibrillation, previous thromboembolism, LV dysfunction, hypercoagulable conditions) or an older generation mechanical AVR (i.e., ball in-Cage) or any mechanical MVR should have a INR therapeutic range of 2.5 to 3.5 (target INR of 3).Laxmi GH, et al. Chest 2012, 141:7S-47SNishsuyapa RA, et al. [facility] 2017, 70: 252-289 Performed By: #### 3 4528-0, 76169-6 ####[facility] LABORATORYCLIA [id number] [place] [id number] [place] PT Coag (PPP) [Time] 10.9 s Normal 9.7-13.0 [facility] Comment on above: Order Comment: Gemini olson Type: BLOOD SPECIMENOrdering Facility: [facility] Address: [address] [place] [address] Performed By: #### 3 4528-0, 24714-6 ####[facility] LABORATORYCLIA [id number] [place] [address] [place] US DVT LOWER BILon US DVT LOWER FELICITAS Normal [facility] Urinalysis complete panel (U )on 09-24-2024 Bilirubin Ql (U) Negative Normal Negative [facility] Comment on above: Order Comment: Speci men Type: URINE SPECIMENOrdering Facility: [facility] Address: [address] [place] [address] Performed By: #### 2 4356-8 ####[facility] LABORATORYCLIA [id number] [place] [address] [place] Clarity (Unsp spec) Clear Normal Clear [facility] Comment on above: Order Comment: Speci men Type: URINE SPECIMENOrdering Facility: [facility] Address: [address] [place] [address] Performed By: #### 2 4356-8 ####[facility] LABORATORYCLIA [id number] [address] [place] Color (U) Yellow Normal yellow [facility] Comment on above: Order Comment: Speci men Type: URINE SPECIMENOrdering Facility: [facility] Address: [address] [place] [address] Performed By: #### 2 4356-8 ####[facility] LABORATORYCLIA [id number] [address] [place] Glucose Test strip (U) [Mass/Vol] Negative Normal Trace, Negative [facility] Comment on above: Order Comment: Speci men Type: URINE SPECIMENOrdering Facility: [facility] Address: [address] [place] [address] Performed By: #### 2 4356-8 ####[facility] LABORATORYCLIA [id number] [place] [address] [place] Hemoglobin Ql (U) Negative Normal Negative, Trace [facility] Comment on above: Order Comment: Speci men Type: URINE SPECIMENOrdering Facility: [facility] Address: [facility] [place] [address] Performed By: #### 2 4356-8 ####[facility] LABORATORYCLIA [id number] [address] [place] Ketones Ql (U) Negative Normal Negative, Trace [facility] Comment on above: Order Comment: Speci men Type: URINE SPECIMENOrdering Facility: [facility] Address: [address] [place] [address] Performed By: #### 2 4356-8 ####[facility] LABORATORYCLIA [id number] [address] Leukocyte esterase Test strip Ql (U) Negative Normal Negative, 25 Irina/uL [facility] Comment on above: Order Comment: Speci men Type: URINE SPECIMENOrdering Facility: [facility] Address: [address] [place] [address] Performed By: #### 2 4356-8 ####[facility] LABORATORYCLIA [id number] [address] [facility] Nitrite Ql (U) Negative Normal Negative [facility] Comment on above: Order Comment: Speci men Type: URINE SPECIMENOrdering Facility: [facility] Address: [address] [place] [address] Performed By: #### 2 4356-8 ####[facility] LABORATORYCLIA [id number] [address] [place] pH (U) 6.0 [pH] Normal 5.0-8.0 [facility] Comment on above: Order Comment: Speci men Type: URINE SPECIMENOrdering Facility: [facility] Address: [address] [place] [address] Performed By: #### 2 4356-8 ####[facility] LABORATORYCLIA [id number] [address] [place] Protein (U) [Mass/Vol] 1+ Abnormal Trace , Negative [facility] Comment on above: Order Comment: Speci men Type: URINE SPECIMENOrdering Facility: [facility] Address: [address] [place] [address] Performed By: #### 2 4356-8 ####[facility] LABORATORYCLIA [id number] [address] [place] RBC LM.HPF (Urine sed) [#/Area] 11-25 /HPF Abnormal 0-3 /HPF [facility] Comment on above: Order Comment: Speci men Type: URINE SPECIMENOrdering Facility: [facility] Address: [address] [place] [address] Performed By: #### 2 4356-8 ####[facility] LABORATORYCLIA [id number] [address] Specific gravity (U) [Rel density] >1.040 High 1.005-1.030 [facility] Comment on above: Order Comment: Speci men Type: URINE SPECIMENOrdering Facility: [facility] Address: [address] [place] [address] Performed By: #### 2 4356-8 ####[facility] [id number] [address] Urobilinogen Ql (U) Normal Normal Normal [facility] Comment on above: Order Comment: Speci men Type: URINE SPECIMENOrdering Facility: [facility] Address: [address] [place] [address] Performed By: #### 2 4356-8 ####[facility]ITALCLIA [id number] [address] [facility] WBC LM.HPF (Urine sed) [#/Area] 0-5 /HPF Normal 0-5 /HPF [facility] Comment on above: Order Comment: Speci men Type: URINE SPECIMENOrdering Facility: [facility] Address: [address] [place] [address] Performed By: #### 2 4356-8 ####[facility] LABORATORYCLIA [id number] [address] [place] aPTT PPPon 09-24-2024 aPTT Coag (PPP) [Time] 61.5 s High 23.0-32.4 [facility] Comment on above: Order Comment: Speci men Type: BLOOD SPECIMENOrdering Facility: [facility] Address: [address] [place] [address] Performed By: #### 1 4979-9 ####[facility] LABORATORYCLIA [id number] [address] aPTT Coag (PPP) [Time] 60.9 s High 23.0-32.4 [facility] Comment on above: Order Comment: Speci men Type: BLOOD SPECIMENOrdering Facility: [facility] Address: [address] [place] [address] Performed By: #### 1 4979-9 ####[facility] LABORATORYCLIA [id number] [address] aPTT Coag (PPP) [Time] 135.5 s High 23.0-32.4 [facility] Comment on above: Order Comment: Speci men Type: BLOOD SPECIMENOrdering Facility: [facility] Address: [address] [place] [address] Performed By: #### 1 4979-9 ####[facility] LABORATORYCLIA [id number] [address] aPTT Coag (PPP) [Time] 27.4 s Normal 23.0-32.4 [facility] Comment on above: Order Comment: Speci men Type: BLOOD SPECIMENOrdering Facility: [facility] Address: [address] [place] [address] Performed By: #### 3 4528-0, 38057-2 ####[facility] LABORATORYCLIA [id number] [address] ALLIED HEALTHon 09-23-2024 ALLIED HEALTH Normal [facility] CBC W Auto Differential pane l (Bld)on 09-23-2024 Basophils (Bld) [#/Vol] 0.04 10*3/uL Normal <0.11 [facility] Comment on above: Order Comment: Speci men Type: BLOOD SPECIMENOrdering Facility: [facility] Address: [address] [place] [address] Performed By: #### 5 7021-8 ####[facility]ORATORYCLIA [id number] [address] [place] Basophils/100 WBC (Bld) 0.3 % Normal [facility] Comment on above: Order Comment: Speci men Type: BLOOD SPECIMENOrdering Facility: [facility] Address: [address] [place] [address] Performed By: #### 5 7021-8 ####[facility] LABORATORYCLIA [id number] [address] [place] Differential cell count method Nom (Bld) Auto Normal [facility] Comment on above: Order Comment: Speci men Type: BLOOD SPECIMENOrdering Facility: [facility] Address: [address] [place] [address] Performed By: #### 5 7021-8 ####[facility] LABORATORYCLIA [id number] [address] [place] Eosinophils (Bld) [#/Vol] 0.20 10*3/uL Normal <0.46 [facility] Comment on above: Order Comment: Speci men Type: BLOOD SPECIMENOrdering Facility: [facility] Address: [address] [place] [address] Performed By: #### 5 7021-8 ####[facility] LABORATORYCLIA [id number] [address] Eosinophils/100 WBC (Bld) 1.5 % Normal [facility] Comment on above: Order Comment: Speci men Type: BLOOD SPECIMENOrdering Facility: [facility] Address: [address] [place] [address] Performed By: #### 5 7021-8 ####[facility] LABORATORYCLIA [id number] [address] Erythrocyte distribution width (RBC) [Ratio] 14.6 % Normal 11.5-15.0 [facility] Comment on above: Order Comment: Speci men Type: BLOOD SPECIMENOrdering Facility: [facility] Address: [address] [place] [address] Performed By: #### 5 7021-8 ####[facility] LABORATORYCLIA [id number] [address] [place] Hematocrit (Bld) [Volume fraction] 45.3 % Normal 39.0-51.0 [facility] Comment on above: Order Comment: Speci men Type: BLOOD SPECIMENOrdering Facility: [facility] Address: [address] [place] [address] Performed By: #### 5 7021-8 ####[facility] LABORATORYCLIA [id number] [address] [place] Hemoglobin (Bld) [Mass/Vol] 14.7 g/dL Normal 13.0-17.0 [facility] Comment on above: Order Comment: Speci men Type: BLOOD SPECIMENOrdering Facility: [facility] Address: [address] [place] [address] Performed By: #### 5 7021-8 ####[facility] LABORATORYCLIA [id number] [address] [place] Immature granulocytes (Bld) [#/Vol] 0.03 10*3/uL Normal <0.10 [facility] Comment on above: Order Comment: Speci men Type: BLOOD SPECIMENOrdering Facility: [facility] Address: [address] [place] [address] Performed By: #### 5 7021-8 ####[facility] LABORATORYCLIA [id number] [address] [address] [place] Immature granulocytes/100 WBC (Bld) 0.2 % Normal [facility] Comment on above: Order Comment: Speci men Type: BLOOD SPECIMENOrdering Facility: [facility] Address: [address] [place] [address] Performed By: #### 5 7021-8 ####[facility] LABORATORYCLIA [id number] [address] [place] Lymphocytes (Bld) [#/Vol] 1.55 10*3/uL Normal 1.00-4.00 [facility] Comment on above: Order Comment: Speci men Type: BLOOD SPECIMENOrdering Facility: [facility] Address: [address] [place] [address] Performed By: #### 5 7021-8 ####[facility] LABORATORYCLIA [id number] [address] Lymphocytes/100 WBC (Bld) 12.0 % Normal [facility] Comment on above: Order Comment: Speci men Type: BLOOD SPECIMENOrdering Facility: [facility] Address: [address] [place] [address] Performed By: #### 5 7021-8 ####[facility] LABORATORYCLIA [id number] [address] [facility] MCH (RBC) [Entitic mass] 29.7 pg Normal 26.0-34.0 [facility] Comment on above: Order Comment: Speci men Type: BLOOD SPECIMENOrdering Facility: [facility] Address: [address] [place] [address] Performed By: #### 5 7021-8 ####[facility] LABORATORYCLIA [id number] [address] STATES OF [facility] MCHC (RBC) [Mass/Vol] 32.5 g/dL Normal 30.5-36.0 [facility] Comment on above: Order Comment: Speci men Type: BLOOD SPECIMENOrdering Facility: [facility] Address: [address] [place] [address] Performed By: #### 5 7021-8 ####[facility] LABORATORYCLIA [id number] [address] [facility] MCV (RBC) [Entitic vol] 91.5 fL Normal 80.0-100.0 [facility] Comment on above: Order Comment: Speci men Type: BLOOD SPECIMENOrdering Facility: [facility] Address: [address] [place] [address] Performed By: #### 5 7021-8 ####[facility] LABORATORYCLIA [id number] [address] Monocytes (Bld) [#/Vol] 1.04 10*3/uL High <0.87 [facility] Comment on above: Order Comment: Speci men Type: BLOOD SPECIMENOrdering Facility: [facility] Address: [address] [place] [address] Performed By: #### 5 7021-8 ####[facility] LABORATORYCLIA [id number] [address] [place] Monocytes/100 WBC (Bld) 8.0 % Normal [facility] Comment on above: Order Comment: Speci men Type: BLOOD SPECIMENOrdering Facility: [facility] Address: [address] [place] [address] Performed By: #### 5 7021-8 ####[facility] LABORATORYCLIA [id number] [address] [facility] Neutrophils (Bld) [#/Vol] 10.07 10*3/uL High 1.45-7.50 [facility] Comment on above: Order Comment: Speci men Type: BLOOD SPECIMENOrdering Facility: [facility] Address: [address] [place] [address] Performed By: #### 5 7021-8 ####[facility] LABORATORYCLIA [id number] [address] Neutrophils/100 WBC (Bld) 78.0 % Normal [facility] Comment on above: Order Comment: Speci men Type: BLOOD SPECIMENOrdering Facility: [facility] Address: [address] [place] [address] Performed By: #### 5 7021-8 ####[facility] LABORATORYCLIA [id number] [address] [place] Nucleated RBC (Bld) [#/Vol] 10*3/uL Normal <0.01 [facility] Comment on above: Order Comment: Speci men Type: BLOOD SPECIMENOrdering Facility: [facility] Address: [address] [place] [address] Performed By: #### 5 7021-8 ####[facility]ORATORYCLIA [id number] [place] [address] [place] Nucleated RBC/100 WBC (Bld) [Ratio] 0.0 /100 WBC Normal [facility] Comment on above: Order Comment: Speci men Type: BLOOD SPECIMENOrdering Facility: [facility] Address: [address] [place] [address] Performed By: #### 5 7021-8 ####[facility] LABORATORYCLIA [id number] [place] [address] [place] Platelet mean volume (Bld) [Entitic vol] 11.8 fL Normal 9.0-12.7 [facility] Comment on above: Order Comment: Speci men Type: BLOOD SPECIMENOrdering Facility: [facility] Address: [address] [place] [address] Performed By: #### 5 7021-8 ####[facility] LABORATORYCLIA [id number] [address] [place] Platelets (Bld) [#/Vol] 239 10*3/uL Normal 150-400 [facility] Comment on above: Order Comment: Speci men Type: BLOOD SPECIMENOrdering Facility: [facility] Address: [address] [place] [address] Performed By: #### 5 7021-8 ####[facility] LABORATORYCLIA [id number] [place] [address] [place] RBC (Bld) [#/Vol] 4.95 10*6/uL Normal 4.20-6.00 [facility] Comment on above: Order Comment: Speci men Type: BLOOD SPECIMENOrdering Facility: [facility] Address: [address] [place] [address] Performed By: #### 5 7021-8 ####[facility] LABORATORYCLIA [id number] [address] [place] WBC (Bld) [#/Vol] 12.93 10*3/uL High 3.70-11.00 [facility] Comment on above: Order Comment: Speci men Type: BLOOD SPECIMENOrdering Facility: [facility] Address: [address] [place] [address] Performed By: #### 5 7021-8 ####[facility] LABORATORYCLIA [id number] [address] CTA CHEST (NON GATED) W IVCO N PEon 09-23-2024 CTA CHEST (NON GATED) W IVCON PE Invalid Interpretation Code [facility] Comprehensive metabolic 2000 panelon 09-23-2024 Albumin [Mass/Vol] 3.9 g/dL Normal 3.9-4.9 [facility] Comment on above: Order Comment: Speci men Type: BLOOD SPECIMENOrdering Facility: [facility] Address: [address] [place] [address] Performed By: #### 2 4323-8, 71040-0, 93531-0 ####[facility] LABORATORYCLIA [id number] [address] [place] ALP [Catalytic activity/Vol] 157 U/L High 38-113 [facility] Comment on above: Order Comment: Speci men Type: BLOOD SPECIMENOrdering Facility: [facility] Address: [address] [place] [address] Performed By: #### 2 4323-8, 26378-7, 46044-0 ####[facility] LABORATORYCLIA [id number] [address] STATES OF [facility] ALT With P-5'-P [Catalytic activity/Vol] 24 U/L Normal 10-54 [facility] Comment on above: Order Comment: Speci men Type: BLOOD SPECIMENOrdering Facility: [facility] Address: [address] [place] [address] Performed By: #### 2 4323-8, 32339-6, 76257-9 ####[facility] LABORATORYCLIA [id number] [address] STATES [place] [facility] Anion gap [Moles/Vol] 15 mmol/L Normal 8-15 [facility] Comment on above: Order Comment: Speci men Type: BLOOD SPECIMENOrdering Facility: [facility] Address: [address] [place] [address] Performed By: #### 2 4323-8, 28613-2, 58805-6 ####[facility] LABORATORYCLIA [id number] [place] [id number] [place] AST With P-5'-P [Catalytic activity/Vol] 20 U/L Normal 14-40 [facility] Comment on above: Order Comment: Speci men Type: BLOOD SPECIMENOrdering Facility: [facility] Address: [address] [place] [address] Performed By: #### 2 4323-8, 64772-1, 86325-6 ####[facility] LABORATORYCLIA [id number] [place] [address] [place] Bilirubin [Mass/Vol] 0.5 mg/dL Normal 0.2-1.3 [facility] Comment on above: Order Comment: Speci men Type: BLOOD SPECIMENOrdering Facility: [facility] Address: [address] [place] [address] Performed By: #### 2 4323-8, , 26396-2 ####[facility] LABORATORYCLIA [id number] [place] [address] [place] Calcium [Mass/Vol] 9.3 mg/dL Normal 8.5-10.2 [facility] Comment on above: Order Comment: Speci men Type: BLOOD SPECIMENOrdering Facility: [facility] Address: [address] [place] [address] Performed By: #### 2 4323-8, 04232-4, 36560-2 ####[facility] LABORATORYCLIA [id number] [place] [id number] [place] Chloride [Moles/Vol] 106 mmol/L Normal 98-107 [facility] Comment on above: Order Comment: Speci men Type: BLOOD SPECIMENOrdering Facility: [facility] Address: [address] [place] [address] Performed By: #### 2 4323-8, 97138-2, 04858-1 ####[facility] LABORATORYCLIA [id number] [place] [address] [place] CO2 [Moles/Vol] 22 mmol/L Normal 22-30 [facility] Comment on above: Order Comment: Speci men Type: BLOOD SPECIMENOrdering Facility: [facility] Address: [address] [place] [address] Performed By: #### 2 4323-8, 01246-6, 45089-6 ####[facility] LABORATORYCLIA [id number] [address] [place] Creatinine [Mass/Vol] 1.11 mg/dL Normal 0.73-1.22 [facility] Comment on above: Order Comment: Speci men Type: BLOOD SPECIMENOrdering Facility: [facility] Address: [address] [place] [address] Performed By: #### 2 4323-8, 52837-1, 26411-3 ####[facility] LABORATORYCLIA [id number] [address] Creatinine and Glomerular filtration rate.predicted panel (S/P/Bld) 74 mL/min/1.73m??? Normal >=60 [facility] Comment on above: Order Comment: Speci wesley Type: BLOOD SPECIMENOrdering Facility: [facility] Address: [address] [place] [address] Result Comment: Josseline mated Glomerular Filtration Rate (eGFR) is calculated using the 2020 CKD-EPI creatinine equation. This equation utilizes serum creatinine, sex, and age as parameters. The creatinine assay has traceable calibration to isotope dilution-mass spectrometry. Refer to KDIGO guidelines for clinical interpretation. In patients with unstable renal function, e.g. those with acute kidney injury, the eGFR may not accurately reflect actual GFR. Performed By: #### 2 4323-8, 62392-9, 08237-9 ####[facility] LABORATORYCLIA [id number] [address] [place] Glucose [Mass/Vol] 125 mg/dL High 74-99 [facility] Comment on above: Order Comment: Speci wesley Type: BLOOD SPECIMENOrdering Facility: [facility] Address: [address] [place] [address] Result Comment: The [place] [employer] (ADA) provides guidance for cutoff values for fasting glucose and random glucose. The ADA defines fasting as no caloric intake for at least 8 hours. Fasting plasma glucose results between 100 to 125 mg/dL indicate increased risk for diabetes (prediabetes).Fasting plasma glucose results greater than or equal to 126 mg/dL meet the criteria for diagnosis of diabetes. In the absence of unequivocal hyperglycemia, results should be confirmed by repeat testing. In a patient with classic symptoms of hyperglycemia or hyperglycemic crisis, random plasma glucose results greater than or equal to 200 mg/dL meet the criteria for diagnosis of diabetes.Reference: Standards of Medical Care in Diabetes 2016, [place] [employer]. Diabetes Care. 2016.39(Suppl 1). Performed By: #### 2 4323-8, 63574-2, 10971-6 ####[facility] LABORATORYCLIA [id number] [place] [address] [place] Potassium [Moles/Vol] 3.9 mmol/L Normal 3.7-5.1 [facility] Comment on above: Order Comment: [facility] Type: BLOOD SPECIMENOrdering Facility: [facility] Address: [address] [place] [address] Performed By: #### 2 4323-8, 01033-5, 81282-9 ####[facility]ITALCLIA [id number] [place] [address] [place] Protein [Mass/Vol] 6.7 g/dL Normal 6.3-8.0 [facility] Comment on above: Order Comment: Speci men Type: BLOOD SPECIMENOrdering Facility: [facility] Address: [address] [place] [address] Performed By: #### 2 4323-8, 69124-8, 22262-9 ####[facility] LABORATORYCLIA [id number] [place] [address] [place] Sodium [Moles/Vol] 143 mmol/L Normal 136-144 [facility] Comment on above: Order Comment: Speci men Type: BLOOD SPECIMENOrdering Facility: [facility] Address: [address] [place] [address] Performed By: #### 2 4323-8, 86802-5, 18136-7 ####[facility] LABORATORYCLIA [id number] [place] [address] [facility] Urea nitrogen [Mass/Vol] 18 mg/dL Normal - [facility] Comment on above: Order Comment: Speci men Type: BLOOD SPECIMENOrdering Facility: [facility] Address: [address] [place] [address] Performed By: #### 2 4323-8, 80843-2, 66624-1 ####[facility] LABORATORYCLIA [id number] [place] [address] [facility] ED NOTEon 09-23-2024 ED NOTE HNO ID: [id number] Author: NIA SANCHEZ, ARNOLD Service: Emergency Medicine Author Type: Registered Nurse Type: ED Notes Filed: 09/23/2024 23:17 Note Text: Patient to ED CT at this time. Normal [facility] ED NOTE HNO ID: [id number] Author: DAVE MARROQUIN, ARNOLD Service: Emergency Medicine Author Type: Registered Nurse Type: ED Notes Filed: 09/23/2024 22:56 Note Text: CT notified patient ready for transport. Normal [facility] ED NOTE HNO ID: [id number] Author: DAVE MARROQUIN, ARNOLD Service: Emergency Medicine Author Type: Registered Nurse Type: ED Notes Filed: 09/23/2024 21:53 Note Text: Lacate 4.[address] lab. Dr. German Bolaños notified. Normal [facility] ED NOTE Normal [facility] ED NOTE HNO ID: [id number] Author: DAVE MARROQUIN, ARNOLD Service: Emergency Medicine Author Type: Registered Nurse Type: ED Notes Filed: 09/23/2024 21:26 Note Text: Patient placed on engine monitor. Monitor shows sinus rhythm with frequent PAC's [facility] ED NOTE HNO ID: [id number] Author: GABRIELLA HOLLOWAY Medic Service: ? Author Type: Pharmaceutical Scientist and Vest Baster Type: ED Notes Filed: 09/23/2024 21:20 Note Text: Bed: 34-ED Expected date: Expected time: Means of arrival: Comments: M13 54yo sob Normal [facility] ED PROV NOTEon 09-23-2024 ED PROV NOTE Normal [facility] ED PROV NOTE Normal [facility] HIGH SENSITIVITY TROPONIN T (INITIAL)on 09-23-2024 Troponin T.cardiac High sensitivity method [Mass/Vol] 37 ng/L High <12 [facility] Comment on above: Order Comment: Speci men Type: BLOOD SPECIMENOrdering Facility: [facility] Address: [address] [place] [address] Performed By: #### L [id number] ####[facility] LABORATORYCLIA [id number] [address] HIGH SENSITIVITY TROPONIN T (SECOND)on 09-23-2024 Troponin T.cardiac High sensitivity method [Mass/Vol] 63 ng/L High <12 [facility] Comment on above: Order Comment: Speci men Type: BLOOD SPECIMENOrdering Facility: [facility] Address: [address] [place] [address] Performed By: #### L [id number] ####[facility] LABORATORYCLIA [id number] [place] [address] [place] Magnesium SerPl-mCncon 09-23 Magnesium [Mass/Vol] 2.0 mg/dL Normal 1.7-2.3 [facility] Comment on above: Order Comment: Speci men Type: BLOOD SPECIMENOrdering Facility: [facility] Address: [address] [place] [address] Performed By: #### 2 4323-8, 75384-8, 81866-2 ####[facility] LABORATORYCLIA [id number] [place] [address] [place] NT-proBNP SerPl-mCncon 09-23 Natriuretic peptide.B prohormone N-Terminal [Mass/Vol] 1530 pg/mL High <125 [facility] Comment on above: Order Comment: Speci men Type: BLOOD SPECIMENOrdering Facility: [facility] Address: [address] [place] [address] Performed By: #### 2 4323-8, 17932-6, 07013-2 ####[facility] LABORATORYCLIA [id number] [place] [id number] [place] PT panel Coag (PPP)on 2023 INR Coag (PPP) [Relative time] 1.0 {INR} Normal 0.9-1.3 [facility] Comment on above: Order Comment: Gemini olson Type: BLOOD SPECIMENOrdering Facility: [facility] Address: [address] [place] [address] Result Comment: Ivonne min K Antagonist (VKA) Therapeutic Range: INR 2 to 3 (Target INR of 2.5)Note: For patients treated with VKA drugs, such as warfarin, the [employer] [employer] 2012 Guideline recommends a therapeutic INR range of 2 to 3 (target INR of 2.5). This recommendation includes high-risk patients with antiphospholipid syndrome with previous arterial or venous thromboembolism, current-generation mechanical or bioprosthetic aortic heart valve replacement.Note: Patients with mechanical aortic valve replacement and additional risk factors for thromboembolic events (atrial fibrillation, previous thromboembolism, LV dysfunction, hypercoagulable conditions) or an older generation mechanical AVR (i.e., ball in-Cage) or any mechanical MVR should have a INR therapeutic range of 2.5 to 3.5 (target INR of 3).Laxmi MCNALLY, et al. Chest 2012, 141:7S-47SKatarina RA, et al. [facility] 2017, 70: 252-289 Performed By: #### 1 4979-9, 80482-3 ####[facility] LABORATORYCLIA [id number] [place] [address] [place] PT Coag (PPP) [Time] 10.7 s Normal 9.7-13.0 [facility] Comment on above: Order Comment: Gemini olson Type: BLOOD SPECIMENOrdering Facility: [facility] Address: [address] [id number] Performed By: #### 1 4979-9, 32107-6 ####[facility] LABORATORYCLIA [id number] [place] [id number] [place] aPTT PPPon 09-23-2024 aPTT Coag (PPP) [Time] 27.4 s Normal 23.0-32.4 [facility] Comment on above: Order Comment: Speci men Type: BLOOD SPECIMENOrdering Facility: [facility] Address: [address] [place] [address] Performed By: #### 1 4979-9, 06132-7 ####[facility] LABORATORYCLIA [id number] [place] [address] [place] CNPNon 09-20-2024 CNPN Normal [facility] CNOVon 09-18-2024 CNOV Normal [facility] CNPTOUTREACHon 09-11-2024 CNPTOUTREACH Normal [facility] Urine Cultureon 06-23-2024 URC Mixed Gram Pos Gram Neg Org [place] Count <1000 MIXC Mixed contaminants. Submit a new specimen if indicated. Normal [facility] Comment on above: Performed By: #### L 500.4050, L100.0500 #### [facility] [address] [place], [address] Urinalysis, Completeon 06-21 BACTERIA 1+ /hpf Normal None Seen [facility] Comment on above: Order Comment: 108-2 Performed By: #### L 500.4050, L100.0500 #### [facility] [address] [place], [address] EPI,SQUAMOUS 0-5 SEEN Normal 0-5 [facility] Comment on above: Order Comment: 108-2 Performed By: #### L 500.4050, L100.0500 #### [facility] [address] [place], [address] RBC 5-10 SEEN Normal 0-5 [facility] Comment on above: Order Comment: 108-2 Performed By: #### L 500.4050, L100.0500 #### [facility] [address] [place], [address] WBC 0-5 SEEN Normal 0-5 [facility] Comment on above: Order Comment: 108-2 Performed By: #### L 500.4050, L100.0500 #### [facility] [address] [place], [address] Mucus Ql (Urine sed) 0 SEEN Normal [facility] Comment on above: Order Comment: 108-2 Performed By: #### L 500.4050, L100.0500 #### [facility] [address] [place], [address] CNOVon 06-20-2024 CNOV Normal [facility] CT BRAIN WO IVCONon 06-20-[address] BRAIN WO IVCON Normal [facility] CBC-Complete Blood Cnt No Di ffon 06-15-2024 Erythrocyte distribution width (RBC) [Ratio] 14.6 % Normal 11.6-14.6 [facility] Comment on above: Order Comment: 108-2 Performed By: #### L 500.4050, L100.0500 #### [facility] [address] [place], [address] Hematocrit (Bld) [Volume fraction] 39.7 % Low 40-54 [facility] Comment on above: Order Comment: 108-2 Performed By: #### L 500.4050, L100.0500 #### [facility] [address] [place], [address] Hemoglobin (Bld) [Mass/Vol] 12.5 g/dL Low 13.0-16.5 [facility] Comment on above: Order Comment: 108-2 Performed By: #### L 500.4050, L100.0500 #### [facility] [address] [place], [address] MCH (RBC) [Entitic mass] 29.2 pg Normal 27.0-32.0 [facility] Comment on above: Order Comment: 108-2 Performed By: #### L 500.4050, L100.0500 #### [facility] [address] [place], [address] MCHC (RBC) [Mass/Vol] 31.5 g/dL Low 32-36 [facility] Comment on above: Order Comment: 108-2 Performed By: #### L 500.4050, L100.0500 #### [facility] [address] [place], [address] MCV (RBC) [Entitic vol] 92.8 fL Normal 80-94 [facility] Comment on above: Order Comment: 108-2 Performed By: #### L 500.4050, L100.0500 #### [facility] [address] [place], [address] Platelet mean volume (Bld) [Entitic vol] 11.6 fL Normal 6.2-12.0 [facility] Comment on above: Order Comment: 108-2 Performed By: #### L 500.4050, L100.0500 #### [facility] [address] [place], [address] Platelets (Bld) [#/Vol] 305 10*3/uL Normal 150-450 [facility] Comment on above: Order Comment: 108-2 Performed By: #### L 500.4050, L100.0500 #### [facility] [address] [place], [address] RBC (Bld) [#/Vol] 4.28 10*6/uL Low 4.6-6.2 [facility] Comment on above: Order Comment: 108-2 Performed By: #### L 500.4050, L100.0500 #### [facility] [address] [place], [address] RDW SD 49.5 fl High 35.1-43.9 [facility] Comment on above: Order Comment: 108-2 Performed By: #### L 500.4050, L100.0500 #### [facility] [address] [place], [address] WBC (Bld) [#/Vol] 6.8 10*3/uL Normal 4.4-11.0 [facility] Comment on above: Order Comment: 108-2 Performed By: #### L 500.4050, L100.0500 #### [facility] [address] [place], [address] Comprehensive Metabolic Prof [facility] 06-15-2024 Albumin [Mass/Vol] 3.3 g/dL Normal 3.2-5.0 [facility] Comment on above: Order Comment: 108-2 Performed By: #### L 500.4050, L100.0500 #### [facility] [address] [place], [address] Albumin/Globulin [Mass ratio] 0.9 {ratio} Normal 0.9-2.4 [facility] Comment on above: Order Comment: 108-2 Performed By: #### L 500.4050, L100.0500 #### [facility] [address] [place], [address] ALK P 125 U/L High 45-117 [facility] Comment on above: Order Comment: 108-2 Performed By: #### L 500.4050, L100.0500 #### [facility] [address] [place], [address] ALT [Catalytic activity/Vol] 20 U/L Normal 16-61 [facility] Comment on above: Order Comment: 108-2 Performed By: #### L 500.4050, L100.0500 #### [facility] [address] [place], [address] AST [Catalytic activity/Vol] 19 U/L Normal 15-37 [facility] Comment on above: Order Comment: 108-2 Performed By: #### L 500.4050, L100.0500 #### [facility] [address] [place], [address] Bilirubin [Mass/Vol] 0.40 mg/dL Normal 0.20-1.00 [facility] Comment on above: Order Comment: 108-2 Result Comment: For patients on eltrombopag therapy, use of Dimension [place] TBIL is not recommended. Performed By: #### L 500.4050, L100.0500 #### [facility] [address] [place], [address] BUN/CRE 16.9 RATIO Normal 10-20 [facility] Comment on above: Order Comment: 108-2 Performed By: #### L 500.4050, L100.0500 #### [facility] [address] [place], [address] CA,Total 9.3 mg/dL Normal 8.5-10.1 [facility] Comment on above: Order Comment: 108-2 Performed By: #### L 500.4050, L100.0500 #### [facility] [address] [place], [address] Chloride [Moles/Vol] 109 mmol/L High 98-107 [facility] Comment on above: Order Comment: 108-2 Performed By: #### L 500.4050, L100.0500 #### [facility] [address] [place], [address] CO2 [Moles/Vol] 27.0 mmol/L Normal 21.0-32.0 [facility] Comment on above: Order Comment: 108-2 Performed By: #### L 500.4050, L100.0500 #### [facility] [address] [place], [address] Creatinine [Mass/Vol] 0.77 mg/dL Normal 0.70-1.30 [facility] Comment on above: Order Comment: 108-2 Result Comment: The validity of the calculated GFR GFRAA in patients over 70 years has not been determined. Clinical correlation is essential. Performed By: #### L 500.4050, L100.0500 #### [facility] [address] [place], [address] EST GFR - AA 131 mL/min Normal >60 [facility] Comment on above: Order Comment: 108-2 Result Comment: Afri can Ethiopian GFR Calc Performed By: #### L 500.4050, L100.0500 #### [facility] [address] [place], [address] GAP 5 Normal 5-15 [facility] Comment on above: Order Comment: 108-2 Performed By: #### L 500.4050, L100.0500 #### [facility] [address] [place], [address] GFR/1.73 sq M.predicted among non-blacks MDRD (S/P/Bld) [Vol rate/Area] 108 mL/min/{1.73_m2} Normal >60 [facility] Comment on above: Order Comment: 108-2 Result Comment: Non- GFR Calc Performed By: #### L 500.4050, L100.0500 #### [facility] [address] [place], [address] Globulin (S) [Mass/Vol] 3.5 g/dL Normal 2.2-4.2 [facility] Comment on above: Order Comment: 108-2 Performed By: #### L 500.4050, L100.0500 #### [facility] [address] [place], [address] Glucose [Mass/Vol] 85 mg/dL Normal 74-106 [facility] Comment on above: Order Comment: 108-2 Performed By: #### L 500.4050, L100.0500 #### [facility] [address] [place], [address] Potassium [Moles/Vol] 4.0 mmol/L Normal 3.5-5.1 [facility] Comment on above: Order Comment: 108-2 Performed By: #### L 500.4050, L100.0500 #### [facility] [address] [place], [address] Sodium [Moles/Vol] 141 mmol/L Normal 136-145 [facility] Comment on above: Order Comment: 108-2 Performed By: #### L 500.4050, L100.0500 #### [facility] [address] [place], [address] T PROT 6.8 g/dL Normal 6.4-8.2 [facility] Comment on above: Order Comment: 108-2 Performed By: #### L 500.4050, L100.0500 #### [facility] [address] [place], [address] Urea nitrogen [Mass/Vol] 13 mg/dL Normal 7-18 [facility] Comment on above: Order Comment: 108-2 Performed By: #### L 500.4050, L100.0500 #### [facility] [address] [place], [address] CNPTOUTREACHon 06-08-2024 CNPTOUTREACH Normal [facility] CASE MANAGEMon 06-07-2024 CASE MANAGEM Normal [facility] CNDSon 06-07-2024 CNDS Normal [facility] CNPNon 06-07-2024 CNPN Normal [facility] Basic metabolic 2000 panelon 06-06-2024 Anion gap [Moles/Vol] 13 mmol/L Normal 8-15 [facility] Comment on above: Order Comment: Speci men Type: BLOOD SPECIMENOrdering Facility: [facility] Address: [address] [place] [address] Performed By: #### 2 4321-2 ####[facility] LABORATORYCLIA [id number] [place] [address] [place] Calcium [Mass/Vol] 8.8 mg/dL Normal 8.5-10.2 [facility] Comment on above: Order Comment: Speci men Type: BLOOD SPECIMENOrdering Facility: [facility] Address: [address] [place] [address] Performed By: #### 2 4321-2 ####[facility] LABORATORYCLIA [id number] [place] [address] [place] Chloride [Moles/Vol] 105 mmol/L Normal 98-107 [facility] Comment on above: Order Comment: Speci men Type: BLOOD SPECIMENOrdering Facility: [facility] Address: [address] [place] [address] Performed By: #### 2 4321-2 ####[facility] LABORATORYCLIA [id number] [address] [place] CO2 [Moles/Vol] 23 mmol/L Normal 22-30 [facility] Comment on above: Order Comment: Speci men Type: BLOOD SPECIMENOrdering Facility: [facility] Address: [address] [place] [address] Performed By: #### 2 4321-2 ####[facility] LABORATORYCLIA [id number] [address] [place] Creatinine [Mass/Vol] 0.82 mg/dL Normal 0.73-1.22 [facility] Comment on above: Order Comment: Speci men Type: BLOOD SPECIMENOrdering Facility: [facility] Address: [address] [place] [address] Performed By: #### 2 4321-2 ####[facility] LABORATORYCLIA [id number] [address] [place] Creatinine and Glomerular filtration rate.predicted panel (S/P/Bld) 97 mL/min/1.73m??? Normal >=60 [facility] Comment on above: Order Comment: Speci men Type: BLOOD SPECIMENOrdering Facility: [facility] Address: [address] [place] [address] Result Comment: Josseline mated Glomerular Filtration Rate (eGFR) is calculated using the 2020 CKD-EPI creatinine equation. This equation utilizes serum creatinine, sex, and age as parameters. The creatinine assay has traceable calibration to isotope dilution-mass spectrometry. Refer to KDIGO guidelines for clinical interpretation. In patients with unstable renal function, e.g. those with acute kidney injury, the eGFR may not accurately reflect actual GFR. Performed By: #### 2 4321-2 ####[facility] LABORATORYCLIA [id number] [place] [address] [place] Glucose [Mass/Vol] 96 mg/dL Normal 74-99 [facility] Comment on above: Order Comment: Specmanisha olson Type: BLOOD SPECIMENOrdering Facility: [facility] Address: [address] [place] [address] Result Comment: The [place] Diabetes Association (ADA) provides guidance for cutoff values for fasting glucose and random glucose. The ADA defines fasting as no caloric intake for at least 8 hours. Fasting plasma glucose results between 100 to 125 mg/dL indicate increased risk for diabetes (prediabetes).Fasting plasma glucose results greater than or equal to 126 mg/dL meet the criteria for diagnosis of diabetes. In the absence of unequivocal hyperglycemia, results should be confirmed by repeat testing. In a patient with classic symptoms of hyperglycemia or hyperglycemic crisis, random plasma glucose results greater than or equal to 200 mg/dL meet the criteria for diagnosis of diabetes.Reference: Standards of Medical Care in Diabetes 2016, [place] [employer]. Diabetes Care. 2016.39(Suppl 1). Performed By: #### 2 4321-2 ####[facility] LABORATORYCLIA [id number] [place] [address] [place] Potassium [Moles/Vol] 4.2 mmol/L Normal 3.7-5.1 [facility] Comment on above: Order Comment: Gemini olson Type: BLOOD SPECIMENOrdering Facility: [facility] Address: [address] [place] [address] Performed By: #### 2 4321-2 ####[facility] LABORATORYCLIA [id number] [place] [id number] [place] Sodium [Moles/Vol] 141 mmol/L Normal 136-144 [facility] Comment on above: Order Comment: Speci men Type: BLOOD SPECIMENOrdering Facility: [facility] Address: [address] [place] [address] Performed By: #### 2 4321-2 ####[facility] LABORATORYCLIA [id number] [address] [place] Urea nitrogen [Mass/Vol] 14 mg/dL Normal 9-24 [facility] Comment on above: Order Comment: Speci men Type: BLOOD SPECIMENOrdering Facility: [facility] Address: [address] [place] [address] Performed By: #### 2 4321-2 ####[facility] LABORATORYCLIA [id number] [address] [place] CASE MANAGEMon 06-06-2024 CASE MANAGEM Normal [facility] CBC W Auto Differential pane l (Bld)on 06-06-2024 Basophils (Bld) [#/Vol] 0.03 10*3/uL Normal <0.11 [facility] Comment on above: Order Comment: Speci men Type: BLOOD SPECIMENOrdering Facility: [facility] Address: [address] [place] [address] Performed By: #### 5 7021-8 ####[facility] LABORATORYCLIA [id number] [address] [place] Basophils/100 WBC (Bld) 0.4 % Normal [facility] Comment on above: Order Comment: Speci men Type: BLOOD SPECIMENOrdering Facility: [facility] Address: [address] [place] [address] Performed By: #### 5 7021-8 ####[facility] LABORATORYCLIA [id number] [address] STATES [place] [facility] Differential cell count method Nom (Bld) Auto Normal [facility] Comment on above: Order Comment: Speci men Type: BLOOD SPECIMENOrdering Facility: [facility] Address: [address] [place] [address] Performed By: #### 5 7021-8 ####[facility]ORATORYCLIA [id number] [address] [place] Eosinophils (Bld) [#/Vol] 0.19 10*3/uL Normal <0.46 [facility] Comment on above: Order Comment: Speci men Type: BLOOD SPECIMENOrdering Facility: [facility] Address: [address] [place] [address] Performed By: #### 5 7021-8 ####[facility] LABORATORYCLIA [id number] [address] [place] Eosinophils/100 WBC (Bld) 2.7 % Normal [facility] Comment on above: Order Comment: Speci men Type: BLOOD SPECIMENOrdering Facility: [facility] Address: [address] [place] [address] Performed By: #### 5 7021-8 ####[facility] LABORATORYCLIA [id number] [address] [place] Erythrocyte distribution width (RBC) [Ratio] 15.8 % High 11.5-15.0 [facility] Comment on above: Order Comment: Speci men Type: BLOOD SPECIMENOrdering Facility: [facility] Address: [address] [place] [address] Performed By: #### 5 7021-8 ####[facility] LABORATORYCLIA [id number] [address] [place] Hematocrit (Bld) [Volume fraction] 36.1 % Low 39.0-51.0 [facility] Comment on above: Order Comment: Speci men Type: BLOOD SPECIMENOrdering Facility: [facility] Address: [address] [place] [address] Performed By: #### 5 7021-8 ####[facility] LABORATORYCLIA [id number] [address] [place] Hemoglobin (Bld) [Mass/Vol] 11.3 g/dL Low 13.0-17.0 [facility] Comment on above: Order Comment: Speci men Type: BLOOD SPECIMENOrdering Facility: [facility] Address: [address] [place] [address] Performed By: #### 5 7021-8 ####[facility]ORATORYCLIA [id number] [address] Immature granulocytes (Bld) [#/Vol] 10*3/uL Normal <0.10 [facility] Comment on above: Order Comment: Speci men Type: BLOOD SPECIMENOrdering Facility: [facility] Address: [address] [place] [address] Performed By: #### 5 7021-8 ####[facility]ORATORYCLIA [id number] [address] Immature granulocytes/100 WBC (Bld) 0.1 % Normal [facility] Comment on above: Order Comment: Speci men Type: BLOOD SPECIMENOrdering Facility: [facility] Address: [address] [place] [address] Performed By: #### 5 7021-8 ####[facility] LABORATORYCLIA [id number] [address] Lymphocytes (Bld) [#/Vol] 1.14 10*3/uL Normal 1.00-4.00 [facility] Comment on above: Order Comment: Speci men Type: BLOOD SPECIMENOrdering Facility: [facility] Address: [address] [place] [address] Performed By: #### 5 7021-8 ####[facility]ORATORYCLIA [id number] [address] Lymphocytes/100 WBC (Bld) 16.0 % Normal [facility] Comment on above: Order Comment: Speci men Type: BLOOD SPECIMENOrdering Facility: [facility] Address: [address] [place] [address] Performed By: #### 5 7021-8 ####[facility]ORATORYCLIA [id number] [address] [place] MCH (RBC) [Entitic mass] 29.7 pg Normal 26.0-34.0 [facility] Comment on above: Order Comment: Speci men Type: BLOOD SPECIMENOrdering Facility: [facility] Address: [address] [place] [address] Performed By: #### 5 7021-8 ####[facility] LABORATORYCLIA [id number] [address] MCHC (RBC) [Mass/Vol] 31.3 g/dL Normal 30.5-36.0 [facility] Comment on above: Order Comment: Speci men Type: BLOOD SPECIMENOrdering Facility: [facility] Address: [address] [place] [address] Performed By: #### 5 7021-8 ####[facility] LABORATORYCLIA [id number] [address] MCV (RBC) [Entitic vol] 95.0 fL Normal 80.0-100.0 [facility] Comment on above: Order Comment: Speci men Type: BLOOD SPECIMENOrdering Facility: [facility] Address: [address] [place] [address] Performed By: #### 5 7021-8 ####[facility] LABORATORYCLIA [id number] [address] Monocytes (Bld) [#/Vol] 0.60 10*3/uL Normal <0.87 [facility] Comment on above: Order Comment: Speci men Type: BLOOD SPECIMENOrdering Facility: [facility] Address: [address] [place] [address] Performed By: #### 5 7021-8 ####[facility] LABORATORYCLIA [id number] [address] Monocytes/100 WBC (Bld) 8.4 % Normal [facility] Comment on above: Order Comment: Speci men Type: BLOOD SPECIMENOrdering Facility: [facility] Address: [address] [place] [address] Performed By: #### 5 7021-8 ####[facility] LABORATORYCLIA [id number] [address] [place] Neutrophils (Bld) [#/Vol] 5.17 10*3/uL Normal 1.45-7.50 [facility] Comment on above: Order Comment: Speci men Type: BLOOD SPECIMENOrdering Facility: [facility] Address: [address] [place] [address] Performed By: #### 5 7021-8 ####[facility] LABORATORYCLIA [id number] [address] [place] Neutrophils/100 WBC (Bld) 72.4 % Normal [facility] Comment on above: Order Comment: Speci men Type: BLOOD SPECIMENOrdering Facility: [facility] Address: [address] [place] [address] Performed By: #### 5 7021-8 ####[facility] LABORATORYCLIA [id number] [address] [place] Nucleated RBC (Bld) [#/Vol] 10*3/uL Normal <0.01 [facility] Comment on above: Order Comment: Speci men Type: BLOOD SPECIMENOrdering Facility: [facility] Address: [address] [place] [address] Performed By: #### 5 7021-8 ####[facility] LABORATORYCLIA [id number] [address] [place] Nucleated RBC/100 WBC (Bld) [Ratio] 0.0 /100 WBC Normal [facility] Comment on above: Order Comment: Speci men Type: BLOOD SPECIMENOrdering Facility: [facility] Address: [address] [place] [address] Performed By: #### 5 7021-8 ####[facility] LABORATORYCLIA [id number] [address] [place] Platelet mean volume (Bld) [Entitic vol] 10.9 fL Normal 9.0-12.7 [facility] Comment on above: Order Comment: Speci men Type: BLOOD SPECIMENOrdering Facility: [facility] Address: [address] [place] [address] Performed By: #### 5 7021-8 ####[facility] LABORATORYCLIA [id number] [address] [place] Platelets (Bld) [#/Vol] 247 10*3/uL Normal 150-400 [facility] Comment on above: Order Comment: Speci men Type: BLOOD SPECIMENOrdering Facility: [facility] Address: [address] [place] [address] Performed By: #### 5 7021-8 ####[facility] LABORATORYCLIA [id number] [place] [address] [place] RBC (Bld) [#/Vol] 3.80 10*6/uL Low 4.20-6.00 [facility] Comment on above: Order Comment: Speci men Type: BLOOD SPECIMENOrdering Facility: [facility] Address: [address] [place] [address] Performed By: #### 5 7021-8 ####[facility] LABORATORYCLIA [id number] [address] WBC (Bld) [#/Vol] 7.14 10*3/uL Normal 3.70-11.00 [facility] Comment on above: Order Comment: Speci men Type: BLOOD SPECIMENOrdering Facility: [facility] Address: [address] [place] [address] Performed By: #### 5 7021-8 ####[facility] LABORATORYCLIA [id number] [address] [place] CASE MGT INIT ASSESon 2023 CASE MGT INIT ASSES Normal [facility] THERAPY NTon 06-05-2024 THERAPY NT Normal [facility] THERAPY NT Normal [facility] Bacteria Ur Culton 4 Bacteria identified Cx Nom (U) CULTURE, URINE: 50,000-<100,000 CFU/mL Three or more organisms, no one type predominant, suggesting contamination during collection. Recollect if clinically indicated. Abnormal [facility] Comment on above: Performed By: #### 6 30-4 ####[facility] LABORATORYCLIA [id number] [place] [address] [place] Basic metabolic 2000 panelon 06-04-2024 Anion gap [Moles/Vol] 12 mmol/L Normal 8-15 [facility] Comment on above: Order Comment: Speci men Type: BLOOD SPECIMENOrdering Facility: [facility] Address: [address] [place] [address] Performed By: #### 2 4321-2 ####[facility]ORATORYCLIA [id number] [place] [address] [place] Calcium [Mass/Vol] 9.2 mg/dL Normal 8.5-10.2 [facility] Comment on above: Order Comment: Speci men Type: BLOOD SPECIMENOrdering Facility: [facility] Address: [address] [place] [address] Performed By: #### 2 4321-2 ####[facility]ORATORYCLIA [id number] [place] [address] [place] Chloride [Moles/Vol] 104 mmol/L Normal 98-107 [facility] Comment on above: Order Comment: Speci men Type: BLOOD SPECIMENOrdering Facility: [facility] Address: [address] [place] [address] Performed By: #### 2 4321-2 ####[facility] LABORATORYCLIA [id number] [place] [address] [place] CO2 [Moles/Vol] 25 mmol/L Normal 22-30 [facility] Comment on above: Order Comment: Speci men Type: BLOOD SPECIMENOrdering Facility: [facility] Address: [address] [place] [address] Performed By: #### 2 4321-2 ####[facility]ORATORYCLIA [id number] [place] [address] [place] Creatinine [Mass/Vol] 0.93 mg/dL Normal 0.73-1.22 [facility] Comment on above: Order Comment: Speci men Type: BLOOD SPECIMENOrdering Facility: [facility] Address: [address] [place] [address] Performed By: #### 2 4321-2 ####[facility]ORATORYCLIA [id number] [place] [address] [place] Creatinine and Glomerular filtration rate.predicted panel (S/P/Bld) 91 mL/min/1.73m??? Normal >=60 [facility] Comment on above: Order Comment: Gemini olson Type: BLOOD SPECIMENOrdering Facility: [facility] Address: [address] [place] [address] Result Comment: Josseline mated Glomerular Filtration Rate (eGFR) is calculated using the 2020 CKD-EPI creatinine equation. This equation utilizes serum creatinine, sex, and age as parameters. The creatinine assay has traceable calibration to isotope dilution-mass spectrometry. Refer to KDIGO guidelines for clinical interpretation. In patients with unstable renal function, e.g. those with acute kidney injury, the eGFR may not accurately reflect actual GFR. Performed By: #### 2 4321-2 ####[facility]ITALCLIA [id number] [place] [address] [place] Glucose [Mass/Vol] 94 mg/dL Normal 74-99 [facility] Comment on above: Order Comment: Gemini olson Type: BLOOD SPECIMENOrdering Facility: [facility] Address: [address] [place] [address] Result Comment: The [place] Diabetes Association (ADA) provides guidance for cutoff values for fasting glucose and random glucose. The ADA defines fasting as no caloric intake for at least 8 hours. Fasting plasma glucose results between 100 to 125 mg/dL indicate increased risk for diabetes (prediabetes).Fasting plasma glucose results greater than or equal to 126 mg/dL meet the criteria for diagnosis of diabetes. In the absence of unequivocal hyperglycemia, results should be confirmed by repeat testing. In a patient with classic symptoms of hyperglycemia or hyperglycemic crisis, random plasma glucose results greater than or equal to 200 mg/dL meet the criteria for diagnosis of diabetes.Reference: Standards of Medical Care in Diabetes 2016, [place] [employer]. Diabetes Care. 2016.39(Suppl 1). Performed By: #### 2 4321-2 ####[facility] LABORATORYCLIA [id number] [place] [id number] [place] Potassium [Moles/Vol] 4.3 mmol/L Normal 3.7-5.1 [facility] Comment on above: Order Comment: Speci men Type: BLOOD SPECIMENOrdering Facility: [facility] Address: [address] [place] [address] Performed By: #### 2 4321-2 ####[facility] LABORATORYCLIA [id number] [address] [place] Sodium [Moles/Vol] 141 mmol/L Normal 136-144 [facility] Comment on above: Order Comment: Speci men Type: BLOOD SPECIMENOrdering Facility: [facility] Address: [address] [place] [address] Performed By: #### 2 4321-2 ####[facility] LABORATORYCLIA [id number] [address] [place] Urea nitrogen [Mass/Vol] 14 mg/dL Normal 9-24 [facility] Comment on above: Order Comment: Speci men Type: BLOOD SPECIMENOrdering Facility: [facility] Address: [address] [place] [address] Performed By: #### 2 4321-2 ####[facility] LABORATORYCLIA [id number] [place] [address] [place] CBC W Auto Differential pane l (Bld)on 06-04-2024 Basophils (Bld) [#/Vol] 0.05 10*3/uL Normal <0.11 [facility] Comment on above: Order Comment: Speci men Type: BLOOD SPECIMENOrdering Facility: [facility] Address: [address] [place] [address] Performed By: #### 5 7021-8 ####[facility] LABORATORYCLIA [id number] [address] [place] Basophils/100 WBC (Bld) 0.5 % Normal [facility] Comment on above: Order Comment: Speci men Type: BLOOD SPECIMENOrdering Facility: [facility] Address: [address] [place] [address] Performed By: #### 5 7021-8 ####[facility] LABORATORYCLIA [id number] [address] Differential cell count method Nom (Bld) Auto Normal [facility] Comment on above: Order Comment: Speci men Type: BLOOD SPECIMENOrdering Facility: [facility] Address: [address] [place] [address] Performed By: #### 5 7021-8 ####[facility] LABORATORYCLIA [id number] [address] [place] Eosinophils (Bld) [#/Vol] 0.15 10*3/uL Normal <0.46 [facility] Comment on above: Order Comment: Speci men Type: BLOOD SPECIMENOrdering Facility: [facility] Address: [address] [place] [address] Performed By: #### 5 7021-8 ####[facility] LABORATORYCLIA [id number] [address] Eosinophils/100 WBC (Bld) 1.4 % Normal [facility] Comment on above: Order Comment: Speci men Type: BLOOD SPECIMENOrdering Facility: [facility] Address: [address] [place] [address] Performed By: #### 5 7021-8 ####[facility] LABORATORYCLIA [id number] [address] Erythrocyte distribution width (RBC) [Ratio] 15.5 % High 11.5-15.0 [facility] Comment on above: Order Comment: Speci men Type: BLOOD SPECIMENOrdering Facility: [facility] Address: [address] [place] [address] Performed By: #### 5 7021-8 ####[facility] LABORATORYCLIA [id number] [address] Hematocrit (Bld) [Volume fraction] 37.5 % Low 39.0-51.0 [facility] Comment on above: Order Comment: Speci men Type: BLOOD SPECIMENOrdering Facility: [facility] Address: [address] [place] [address] Performed By: #### 5 7021-8 ####[facility]ORATORYCLIA [id number] [place] [address] [place] Hemoglobin (Bld) [Mass/Vol] 12.4 g/dL Low 13.0-17.0 [facility] Comment on above: Order Comment: Speci men Type: BLOOD SPECIMENOrdering Facility: [facility] Address: [address] [place] [address] Performed By: #### 5 7021-8 ####[facility] LABORATORYCLIA [id number] [place] [address] [place] Immature granulocytes (Bld) [#/Vol] 0.04 10*3/uL Normal <0.10 [facility] Comment on above: Order Comment: Speci men Type: BLOOD SPECIMENOrdering Facility: [facility] Address: [address] [place] [address] Performed By: #### 5 7021-8 ####[facility] LABORATORYCLIA [id number] [address] [place] Immature granulocytes/100 WBC (Bld) 0.4 % Normal [facility] Comment on above: Order Comment: Speci men Type: BLOOD SPECIMENOrdering Facility: [facility] Address: [address] [place] [address] Performed By: #### 5 7021-8 ####[facility] LABORATORYCLIA [id number] [place] [address] [place] Lymphocytes (Bld) [#/Vol] 0.95 10*3/uL Low 1.00-4.00 [facility] Comment on above: Order Comment: Speci men Type: BLOOD SPECIMENOrdering Facility: [facility] Address: [address] [place] [address] Performed By: #### 5 7021-8 ####[facility] LABORATORYCLIA [id number] [address] [place] Lymphocytes/100 WBC (Bld) 8.9 % Normal [facility] Comment on above: Order Comment: Speci men Type: BLOOD SPECIMENOrdering Facility: [facility] Address: [address] [place] [address] Performed By: #### 5 7021-8 ####[facility] LABORATORYCLIA [id number] [address] MCH (RBC) [Entitic mass] 30.6 pg Normal 26.0-34.0 [facility] Comment on above: Order Comment: Speci men Type: BLOOD SPECIMENOrdering Facility: [facility] Address: [address] [place] [address] Performed By: #### 5 7021-8 ####[facility] LABORATORYCLIA [id number] [address] [place] MCHC (RBC) [Mass/Vol] 33.1 g/dL Normal 30.5-36.0 [facility] Comment on above: Order Comment: Speci men Type: BLOOD SPECIMENOrdering Facility: [facility] Address: [address] [place] [address] Performed By: #### 5 7021-8 ####[facility] LABORATORYCLIA [id number] [address] STATES OF [facility] MCV (RBC) [Entitic vol] 92.6 fL Normal 80.0-100.0 [facility] Comment on above: Order Comment: Speci men Type: BLOOD SPECIMENOrdering Facility: [facility] Address: [address] [place] [address] Performed By: #### 5 7021-8 ####[facility] LABORATORYCLIA [id number] [address] [place] Monocytes (Bld) [#/Vol] 0.87 10*3/uL High <0.87 [facility] Comment on above: Order Comment: Speci men Type: BLOOD SPECIMENOrdering Facility: [facility] Address: [address] [place] [address] Performed By: #### 5 7021-8 ####[facility] LABORATORYCLIA [id number] [address] Monocytes/100 WBC (Bld) 8.2 % Normal [facility] Comment on above: Order Comment: Speci men Type: BLOOD SPECIMENOrdering Facility: [facility] Address: [address] [place] [address] Performed By: #### 5 7021-8 ####[facility] LABORATORYCLIA [id number] [place] [address] [place] Neutrophils (Bld) [#/Vol] 8.57 10*3/uL High 1.45-7.50 [facility] Comment on above: Order Comment: Speci men Type: BLOOD SPECIMENOrdering Facility: [facility] Address: [address] [place] [address] Performed By: #### 5 7021-8 ####[facility] LABORATORYCLIA [id number] [address] Neutrophils/100 WBC (Bld) 80.6 % Normal [facility] Comment on above: Order Comment: Speci men Type: BLOOD SPECIMENOrdering Facility: [facility] Address: [address] [place] [address] Performed By: #### 5 7021-8 ####[facility] LABORATORYCLIA [id number] [address] [place] Nucleated RBC (Bld) [#/Vol] 10*3/uL Normal <0.01 [facility] Comment on above: Order Comment: Speci men Type: BLOOD SPECIMENOrdering Facility: [facility] Address: [address] [place] [address] Performed By: #### 5 7021-8 ####[facility] LABORATORYCLIA [id number] [address] [place] Nucleated RBC/100 WBC (Bld) [Ratio] 0.0 /100 WBC Normal [facility] Comment on above: Order Comment: Speci men Type: BLOOD SPECIMENOrdering Facility: [facility] Address: [address] [place] [address] Performed By: #### 5 7021-8 ####[facility]ORATORYCLIA [id number] [address] [place] Platelet mean volume (Bld) [Entitic vol] 10.8 fL Normal 9.0-12.7 [facility] Comment on above: Order Comment: Speci men Type: BLOOD SPECIMENOrdering Facility: [facility] Address: [address] [place] [address] Performed By: #### 5 7021-8 ####[facility] LABORATORYCLIA [id number] [address] [place] Platelets (Bld) [#/Vol] 314 10*3/uL Normal 150-400 [facility] Comment on above: Order Comment: Speci men Type: BLOOD SPECIMENOrdering Facility: [facility] Address: [address] [place] [address] Performed By: #### 5 7021-8 ####[facility] LABORATORYCLIA [id number] [address] [place] RBC (Bld) [#/Vol] 4.05 10*6/uL Low 4.20-6.00 [facility] Comment on above: Order Comment: Speci men Type: BLOOD SPECIMENOrdering Facility: [facility] Address: [address] [place] [address] Performed By: #### 5 7021-8 ####[facility] LABORATORYCLIA [id number] [address] [place] WBC (Bld) [#/Vol] 10.63 10*3/uL Normal 3.70-11.00 [facility] Comment on above: Order Comment: Speci men Type: BLOOD SPECIMENOrdering Facility: [facility] Address: [address] [place] [address] Performed By: #### 5 7021-8 ####[facility] LABORATORYCLIA [id number] [address] [place] BRAIN WO IVCONon 06-04-[address] BRAIN WO IVCON Normal [facility] ECG COMPLETEon 06-04-2024 ECG COMPLETE Normal [facility] ED NOTEon 06-04-2024 ED NOTE HNO ID: [id number] Author: EHSAN WOODALL RN Service: ? Author Type: Registered Nurse Type: ED Notes Filed: 06/04/2024 22:53 Note Text: Up with Oskar [facility] ED NOTE HNO ID: [id number] Author: SHABBIR RANDALL RN Service: ? Author Type: Registered Nurse Type: ED Notes Filed: 06/04/2024 22:23 Note Text: Report given to Reena BARRETT for admission, bed ready per floor Normal [facility] ED NOTE HNO ID: [id number] Author: SHABBIR RANDALL RN Service: ? Author Type: Registered Nurse Type: ED Notes Filed: 06/04/2024 21:52 Note Text: Sound doctor at bedside Normal [facility] ED NOTE Normal [facility] ED NOTE HNO ID: [id number] Author: SHABBIR RANDALL RN Service: ? Author Type: Registered Nurse Type: ED Notes Filed: 06/04/2024 19:17 Note Text: CT notified [facility] ED NOTE HNO ID: [id number] Author: YOSSI CASSIDY RN Service: ? Author Type: Registered Nurse Type: ED Notes Filed: 06/04/2024 18:07 Note Text: Bed: 14-ED Expected date: Expected time: Means of arrival: Comments: squad Normal [facility] ED PROV NOTEon 06-04-2024 ED PROV NOTE Normal [facility] ED PROV NOTE Normal [facility] HISTORY PHYSICALon HISTORY PHYSICAL Normal [facility] Urinalysis complete panel (U )on 06-04-2024 Bilirubin Ql (U) Negative Normal Negative [facility] Comment on above: Order Comment: Speci men Type: URINE SPECIMENOrdering Facility: [facility] Address: [address] [place] [address] Performed By: #### 2 4356-8 ####[facility] LABORATORYCLIA [id number] [place] [address] [place] Clarity (Unsp spec) Clear Normal Clear [facility] Comment on above: Order Comment: Speci men Type: URINE SPECIMENOrdering Facility: [facility] Address: [address] [place] [address] Performed By: #### 2 4356-8 ####[facility] LABORATORYCLIA [id number] [address] [place] Color (U) Yellow Normal yellow [facility] Comment on above: Order Comment: Speci men Type: URINE SPECIMENOrdering Facility: [facility] Address: [address] [place] [address] Performed By: #### 2 4356-8 ####[facility] LABORATORYCLIA [id number] [address] [place] Epithelial cells LM.HPF (Urine sed) [#/Area] Few Normal [facility] Comment on above: Order Comment: Speci men Type: URINE SPECIMENOrdering Facility: [facility] Address: [address] [place] [address] Result Comment: Few Performed By: #### 2 4356-8 ####[facility] LABORATORYCLIA [id number] [address] [place] Glucose Test strip (U) [Mass/Vol] Negative Normal Trace, Negative [facility] Comment on above: Order Comment: Speci men Type: URINE SPECIMENOrdering Facility: [facility] Address: [address] [place] [address] Performed By: #### 2 4356-8 ####[facility] LABORATORYCLIA [id number] [place] [address] [place] Hemoglobin Ql (U) Negative Normal Negative, Trace [facility] Comment on above: Order Comment: Speci men Type: URINE SPECIMENOrdering Facility: [facility] Address: [address] [place] [address] Performed By: #### 2 4356-8 ####[facility] LABORATORYCLIA [id number] [address] [place] Ketones Ql (U) Trace Normal Negative, Trace [facility] Comment on above: Order Comment: Speci men Type: URINE SPECIMENOrdering Facility: [facility] Address: [address] [place] [address] Performed By: #### 2 4356-8 ####[facility] LABORATORYCLIA [id number] [address] Leukocyte esterase Test strip Ql (U) 250 Irina/uL Abnormal Negative, 25 Irina/uL [facility] Comment on above: Order Comment: Speci men Type: URINE SPECIMENOrdering Facility: [facility] Address: [address] [place] [address] Performed By: #### 2 4356-8 ####[facility] LABORATORYCLIA [id number] [address] Nitrite Ql (U) Negative Normal Negative [facility] Comment on above: Order Comment: Speci men Type: URINE SPECIMENOrdering Facility: [facility] Address: [address] [place] [address] Performed By: #### 2 4356-8 ####[facility] LABORATORYCLIA [id number] [address] [facility] pH (U) 5.5 [pH] Normal 5.0-8.0 [facility] Comment on above: Order Comment: Speci men Type: URINE SPECIMENOrdering Facility: [facility] Address: [address] [place] [address] Performed By: #### 2 4356-8 ####[facility] LABORATORYCLIA [id number] [address] Protein (U) [Mass/Vol] 1+ Abnormal Trace , Negative [facility] Comment on above: Order Comment: Speci men Type: URINE SPECIMENOrdering Facility: [facility] Address: [address] [place] [address] Performed By: #### 2 4356-8 ####[facility] LABORATORYCLIA [id number] [address] RBC LM.HPF (Urine sed) [#/Area] 3-5 /HPF Abnormal 0-3 /HPF [facility] Comment on above: Order Comment: Speci men Type: URINE SPECIMENOrdering Facility: [facility] Address: [address] [place] [address] Performed By: #### 2 4356-8 ####[facility] LABORATORYCLIA [id number] [place] [id number] [place] Specific gravity (U) [Rel density] 1.031 High 1.005-1.030 [facility] Comment on above: Order Comment: Speci men Type: URINE SPECIMENOrdering Facility: [facility] Address: [address] [place] [address] Performed By: #### 2 4356-8 ####[facility] LABORATORYCLIA [id number] [place] [id number] [place] Urobilinogen Ql (U) 1+ Abnormal Normal [facility] Comment on above: Order Comment: Speci men Type: URINE SPECIMENOrdering Facility: [facility] Address: [address] [place] [address] Performed By: #### 2 4356-8 ####[facility] LABORATORYCLIA [id number] [place] [id number] [place] WBC LM.HPF (Urine sed) [#/Area] 6-10 /HPF Abnormal 0-5 /HPF [facility] Comment on above: Order Comment: Speci men Type: URINE SPECIMENOrdering Facility: [facility] Address: [address] [place] [address] Performed By: #### 2 4356-8 ####[facility] LABORATORYCLIA [id number] [address] [place] XR CHEST 1V FRONTALon 2023 XR CHEST 1V FRONTAL Normal [facility] Basic Metabolic Profile (BMP )on 05-31-2024 BUN/CRE 16.8 RATIO Normal 10-20 [facility] Comment on above: Order Comment: 108-2 Performed By: #### L 500.4050, L100.0500 #### [facility] [address] [place], [place], [id number] CA,Total 9.0 mg/dL Normal 8.5-10.1 [facility] Comment on above: Order Comment: 108-2 Performed By: #### L 500.4050, L100.0500 #### [facility] [address] [place], [address] Chloride [Moles/Vol] 109 mmol/L High 98-107 [facility] Comment on above: Order Comment: 108-2 Performed By: #### L 500.4050, L100.0500 #### [facility] [address] [place], [address] CO2 [Moles/Vol] 26.0 mmol/L Normal 21.0-32.0 [facility] Comment on above: Order Comment: 108-2 Performed By: #### L 500.4050, L100.0500 #### [facility] [address] [place], [address] Creatinine [Mass/Vol] 0.84 mg/dL Normal 0.70-1.30 [facility] Comment on above: Order Comment: 108-2 Result Comment: The validity of the calculated GFR GFRAA in patients over 70 years has not been determined. Clinical correlation is essential. Performed By: #### L 500.4050, L100.0500 #### [facility] [address] [place], [address] EST GFR - AA 119 mL/min Normal >60 [facility] Comment on above: Order Comment: 108-2 Result Comment: Afri can Ethiopian GFR Calc Performed By: #### L 500.4050, L100.0500 #### [facility] [address] [place], [address] GAP 6 Normal 5-15 [facility] Comment on above: Order Comment: 108-2 Performed By: #### L 500.4050, L100.0500 #### [facility] [address] [place], [address] GFR/1.73 sq M.predicted among non-blacks MDRD (S/P/Bld) [Vol rate/Area] 98 mL/min/{1.73_m2} Normal >60 [facility] Comment on above: Order Comment: 108-2 Result Comment: Non- GFR Calc Performed By: #### L 500.4050, L100.0500 #### [facility] [address] [place], [address] Glucose [Mass/Vol] 83 mg/dL Normal 74-106 [facility] Comment on above: Order Comment: 108-2 Performed By: #### L 500.4050, L100.0500 #### [facility] [address] [place], [address] Potassium [Moles/Vol] 4.2 mmol/L Normal 3.5-5.1 [facility] Comment on above: Order Comment: 108-2 Performed By: #### L 500.4050, L100.0500 #### [facility] [address] [place], [address] Sodium [Moles/Vol] 141 mmol/L Normal 136-145 [facility] Comment on above: Order Comment: 108-2 Performed By: #### L 500.4050, L100.0500 #### [facility] [address] [place], [address] Urea nitrogen [Mass/Vol] 14 mg/dL Normal 7-18 [facility] Comment on above: Order Comment: 108-2 Performed By: #### L 500.4050, L100.0500 #### [facility] [address] [place], [address] CBC-Complete Blood Cnt No Di ffon 05-31-2024 Erythrocyte distribution width (RBC) [Ratio] 16.0 % High 11.6-14.6 [facility] Comment on above: Order Comment: 108-2 Performed By: #### L 500.4050, L100.0500 #### [facility] [address] [place], [address] Hematocrit (Bld) [Volume fraction] 37.9 % Low 40-54 [facility] Comment on above: Order Comment: 108-2 Performed By: #### L 500.4050, L100.0500 #### [facility] [address] [place], [address] Hemoglobin (Bld) [Mass/Vol] 11.8 g/dL Low 13.0-16.5 [facility] Comment on above: Order Comment: 108-2 Performed By: #### L 500.4050, L100.0500 #### [facility] [address] [place], [address] MCH (RBC) [Entitic mass] 29.4 pg Normal 27.0-32.0 [facility] Comment on above: Order Comment: 108-2 Performed By: #### L 500.4050, L100.0500 #### [facility] [address] [place], [address] MCHC (RBC) [Mass/Vol] 31.1 g/dL Low 32-36 [facility] Comment on above: Order Comment: 108-2 Performed By: #### L 500.4050, L100.0500 #### [facility] [address] [place], [address] MCV (RBC) [Entitic vol] 94.3 fL High 80-94 [facility] Comment on above: Order Comment: 108-2 Performed By: #### L 500.4050, L100.0500 #### [facility] [address] [place], [address] Platelet mean volume (Bld) [Entitic vol] 12.2 fL High 6.2-12.0 [facility] Comment on above: Order Comment: 108-2 Performed By: #### L 500.4050, L100.0500 #### [facility] [address] [place], [address] Platelets (Bld) [#/Vol] 292 10*3/uL Normal 150-450 [facility] Comment on above: Order Comment: 108-2 Performed By: #### L 500.4050, L100.0500 #### [facility] [address] [place], [address] RBC (Bld) [#/Vol] 4.02 10*6/uL Low 4.6-6.2 [facility] Comment on above: Order Comment: 108-2 Performed By: #### L 500.4050, L100.0500 #### [facility] [address] [place], [address] RDW SD 55.8 fl High 35.1-43.9 [facility] Comment on above: Order Comment: 108-2 Performed By: #### L 500.4050, L100.0500 #### [facility] [address] [place], [address] WBC (Bld) [#/Vol] 6.9 10*3/uL Normal 4.4-11.0 [facility] Comment on above: Order Comment: 108-2 Performed By: #### L 500.4050, L100.0500 #### [facility] [address] [place], [address] Folates, (Folic Acid)on 05-09 FOLATES 5.10 ng/mL Normal 3.1-55.4 [facility] Comment on above: Order Comment: 112.1 Performed By: #### L 500.4050, L100.0500 #### [facility] [address] [place], [address] Iron+Iron Binding Capacityon 05-31-2024 Iron [Mass/Vol] 59 ug/dL Low 65-175 [facility] Comment on above: Order Comment: 108-2 Performed By: #### L 500.4050, L100.0500 #### [facility] [address] [place], [address] IRON SATURATION 13.0 Low 15.0-55.0 [facility] Comment on above: Order Comment: 108-2 Performed By: #### L 500.4050, L100.0500 #### [facility] [address] [place], [address] TIBC 455 ug/dL High 250-450 [facility] Comment on above: Order Comment: 108-2 Performed By: #### L 500.4050, L100.0500 #### [facility] [address] [place], [address] Vitamin B12on 05-31-2024 Cobalamin (Vitamin B12) [Mass/Vol] 275 pg/mL Normal 211-911 [facility] Comment on above: Order Comment: 108-2 Performed By: #### L 500.4050, L100.0500 #### [facility] [address] [place], [address] CNOVon 05-30-2024 CNOV Normal [facility] CBC-Complete Blood Cnt No Di ffon 05-24-2024 Erythrocyte distribution width (RBC) [Ratio] 16.7 % High 11.6-14.6 [facility] Comment on above: Order Comment: 108-2 Performed By: #### L 500.4050, L100.0500 #### [facility] [address] [place], [address] Hematocrit (Bld) [Volume fraction] 36.3 % Low 40-54 [facility] Comment on above: Order Comment: 108-2 Performed By: #### L 500.4050, L100.0500 #### [facility] [address] [place], [address] Hemoglobin (Bld) [Mass/Vol] 11.4 g/dL Low 13.0-16.5 [facility] Comment on above: Order Comment: 108-2 Performed By: #### L 500.4050, L100.0500 #### [facility] [address] [place], [address] MCH (RBC) [Entitic mass] 29.5 pg Normal 27.0-32.0 [facility] Comment on above: Order Comment: 108-2 Performed By: #### L 500.4050, L100.0500 #### [facility] [address] [place], [address] MCHC (RBC) [Mass/Vol] 31.4 g/dL Low 32-36 [facility] Comment on above: Order Comment: 108-2 Performed By: #### L 500.4050, L100.0500 #### [facility] [address] [place], [address] MCV (RBC) [Entitic vol] 93.8 fL Normal 80-94 [facility] Comment on above: Order Comment: 108-2 Performed By: #### L 500.4050, L100.0500 #### [facility] [address] [place], [address] Platelet mean volume (Bld) [Entitic vol] 11.6 fL Normal 6.2-12.0 [facility] Comment on above: Order Comment: 108-2 Performed By: #### L 500.4050, L100.0500 #### [facility] [address] [place], [address] Platelets (Bld) [#/Vol] 283 10*3/uL Normal 150-450 [facility] Comment on above: Order Comment: 108-2 Performed By: #### L 500.4050, L100.0500 #### [facility] [address] [place], [address] RBC (Bld) [#/Vol] 3.87 10*6/uL Low 4.6-6.2 [facility] Comment on above: Order Comment: 108-2 Performed By: #### L 500.4050, L100.0500 #### [facility] [address] [place], [address] RDW SD 57.6 fl High 35.1-43.9 [facility] Comment on above: Order Comment: 108-2 Performed By: #### L 500.4050, L100.0500 #### [facility] [address] [place], [address] WBC (Bld) [#/Vol] 6.6 10*3/uL Normal 4.4-11.0 [facility] Comment on above: Order Comment: 108-2 Performed By: #### L 500.4050, L100.0500 #### [facility] [address] [place], [address] Comprehensive Metabolic Prof [facility] 05-24-2024 Albumin [Mass/Vol] 3.0 g/dL Low 3.2-5.0 [facility] Comment on above: Order Comment: 108-2 Performed By: #### L 500.4050, L100.0500 #### [facility] [address] [place], [address] Albumin/Globulin [Mass ratio] 0.9 {ratio} Normal 0.9-2.4 [facility] Comment on above: Order Comment: 108-2 Performed By: #### L 500.4050, L100.0500 #### [facility] [address] [place], [address] ALK P 108 U/L Normal 45-117 [facility] Comment on above: Order Comment: 108-2 Performed By: #### L 500.4050, L100.0500 #### [facility] [address] [place], [address] ALT [Catalytic activity/Vol] 22 U/L Normal 16-61 [facility] Comment on above: Order Comment: 108-2 Performed By: #### L 500.4050, L100.0500 #### [facility] [address] [place], [address] AST [Catalytic activity/Vol] 16 U/L Normal 15-37 [facility] Comment on above: Order Comment: 108-2 Performed By: #### L 500.4050, L100.0500 #### [facility] [address] [place], [address] Bilirubin [Mass/Vol] 0.20 mg/dL Normal 0.20-1.00 [facility] Comment on above: Order Comment: 108-2 Result Comment: For patients on eltrombopag therapy, use of Dimension [place] TBIL is not recommended. Performed By: #### L 500.4050, L100.0500 #### [facility] [address] [place], [address] BUN/CRE 21.9 RATIO High 10-20 [facility] Comment on above: Order Comment: 108-2 Performed By: #### L 500.4050, L100.0500 #### [facility] [address] [place], [address] CA,Total 8.9 mg/dL Normal 8.5-10.1 [facility] Comment on above: Order Comment: 108-2 Performed By: #### L 500.4050, L100.0500 #### [facility] [address] [place], [address] Chloride [Moles/Vol] 109 mmol/L High 98-107 [facility] Comment on above: Order Comment: 108-2 Performed By: #### L 500.4050, L100.0500 #### [facility] [address] [place], [address] CO2 [Moles/Vol] 26.0 mmol/L Normal 21.0-32.0 [facility] Comment on above: Order Comment: 108-2 Performed By: #### L 500.4050, L100.0500 #### [facility] [address] [place], [address] Creatinine [Mass/Vol] 0.96 mg/dL Normal 0.70-1.30 [facility] Comment on above: Order Comment: 108-2 Result Comment: The validity of the calculated GFR GFRAA in patients over 70 years has not been determined. Clinical correlation is essential. Performed By: #### L 500.4050, L100.0500 #### [facility] [address] [place], [address] EST GFR - AA 101 mL/min Normal >60 [facility] Comment on above: Order Comment: 108-2 Result Comment: Afri can Ethiopian GFR Calc Performed By: #### L 500.4050, L100.0500 #### [facility] [address] [place], [address] GAP 5 Normal 5-15 [facility] Comment on above: Order Comment: 108-2 Performed By: #### L 500.4050, L100.0500 #### [facility] [address] [place], [address] GFR/1.73 sq M.predicted among non-blacks MDRD (S/P/Bld) [Vol rate/Area] 84 mL/min/{1.73_m2} Normal >60 [facility] Comment on above: Order Comment: 108-2 Result Comment: Non- GFR Calc Performed By: #### L 500.4050, L100.0500 #### [facility] [address] [place], [address] Globulin (S) [Mass/Vol] 3.3 g/dL Normal 2.2-4.2 [facility] Comment on above: Order Comment: 108-2 Performed By: #### L 500.4050, L100.0500 #### [facility] [address] [place], [address] Glucose [Mass/Vol] 94 mg/dL Normal 74-106 [facility] Comment on above: Order Comment: 108-2 Performed By: #### L 500.4050, L100.0500 #### [facility] [address] [place], [address] Potassium [Moles/Vol] 4.2 mmol/L Normal 3.5-5.1 [facility] Comment on above: Order Comment: 108-2 Performed By: #### L 500.4050, L100.0500 #### [facility] [address] [place], [address] Sodium [Moles/Vol] 140 mmol/L Normal 136-145 [facility] Comment on above: Order Comment: 108-2 Performed By: #### L 500.4050, L100.0500 #### [facility] [address] [place], [address] T PROT 6.3 g/dL Low 6.4-8.2 [facility] Comment on above: Order Comment: 108-2 Performed By: #### L 500.4050, L100.0500 #### [facility] [address] [place], [address] Urea nitrogen [Mass/Vol] 21 mg/dL High 7-18 [facility] Comment on above: Order Comment: 108-2 Performed By: #### L 500.4050, L100.0500 #### [facility] [address] [place], [address] CNOVon 05-23-2024 CNOV Normal [facility] CT BRAIN WO IVCONon 05-23-[address] BRAIN WO IVCON Normal [facility] CNOVon 05-22-2024 CNOV Normal [facility] CNPTOUTREACHon 05-22-2024 CNPTOUTREACH Normal [facility] CBC W Auto Differential pane l (Bld)on 02-01-2024 Basophils (Bld) [#/Vol] 0.05 10*3/uL <0.11 k/uL [facility] Basophils/100 WBC (Bld) 0.7 % [facility] Differential cell count method Nom (Bld) Auto [facility] Eosinophils (Bld) [#/Vol] 0.08 10*3/uL <0.46 k/uL [facility] Eosinophils/100 WBC (Bld) 1.1 % [facility] Erythrocyte distribution width (RBC) [Ratio] 15.0 % 11.5 - 15.0 % [facility] Hematocrit (Bld) [Volume fraction] 47.4 % 39.0 - 51.0 % [facility] Hemoglobin (Bld) [Mass/Vol] 15.3 g/dL 13.0 - 17.0 g/dL [facility] Immature granulocytes (Bld) [#/Vol] <0.10 k/uL [facility] Immature granulocytes/100 WBC (Bld) 0.3 % [facility] Lymphocytes (Bld) [#/Vol] 1.18 10*3/uL 1.00 - 4.00 k/uL [facility] Lymphocytes/100 WBC (Bld) 16.3 % [facility] MCH (RBC) [Entitic mass] 27.8 pg 26.0 - 34.0 pg [facility] MCHC (RBC) [Mass/Vol] 32.3 g/dL 30.5 - 36.0 g/dL [facility] MCV (RBC) [Entitic vol] 86.0 fL 80.0 - 100.0 fL [facility] Monocytes (Bld) [#/Vol] 0.53 10*3/uL <0.87 k/uL [facility] Monocytes/100 WBC (Bld) 7.3 % [facility] Neutrophils (Bld) [#/Vol] 5.38 10*3/uL 1.45 - 7.50 k/uL [facility] Neutrophils/100 WBC (Bld) 74.3 % [facility] Nucleated RBC (Bld) [#/Vol] <0.01 k/uL [facility] Nucleated RBC/100 WBC (Bld) [Ratio] 0.0 /100 WBC [facility] Platelet mean volume (Bld) [Entitic vol] 12.7 fL 9.0 - 12.7 fL [facility] Platelets (Bld) [#/Vol] 286 10*3/uL 150 - 400 k/uL [facility] RBC (Bld) [#/Vol] 5.51 10*6/uL 4.20 - 6.0 0 m/uL [facility] WBC (Bld) [#/Vol] 7.24 10*3/uL 3.70 - 11. 00 k/uL [facility] Comprehensive metabolic 2000 panelon 02-01-2024 Albumin [Mass/Vol] 4.0 g/dL 3.9 - 4.9 g/dL [facility] ALP [Catalytic activity/Vol] 136 U/L High 38 - 113 U/L [facility] ALT With P-5'-P [Catalytic activity/Vol] 17 U/L 10 - 54 U/L [facility] Anion gap [Moles/Vol] 11 mmol/L 9 - 18 mmol/L [facility] AST With P-5'-P [Catalytic activity/Vol] 20 U/L 14 - 40 U/L [facility] Bilirubin [Mass/Vol] 0.6 mg/dL 0.2 - 1 .3 mg/dL [facility] Calcium [Mass/Vol] 9.2 mg/dL 8.5 - 10. 2 mg/dL [facility] Chloride [Moles/Vol] 104 mmol/L 97 - 10 5 mmol/L [facility] CO2 [Moles/Vol] 26 mmol/L 22 - 30 mmol/L [facility] Creatinine [Mass/Vol] 1.21 mg/dL 0.73 - 1.22 mg/dL [facility] Estimated Glomerular Filtration Rate 66 mL/min/1.73m >=60 mL/min/1.73m [facility] Glucose [Mass/Vol] 88 mg/dL 74 - 99 mg/dL [facility] Potassium [Moles/Vol] 4.1 mmol/L 3.7 - 5.1 mmol/L [facility] Protein [Mass/Vol] 7.2 g/dL 6.3 - 8.0 g/dL [facility] Sodium [Moles/Vol] 141 mmol/L 136 - 144 mmol/L [facility] Urea nitrogen [Mass/Vol] 15 mg/dL 9 - 24 mg/dL [facility] HIV 1+2 Ab IA Qlon 4 HIV 1 and 2 Ab IA.rapid Nom (S/P/Bld) [facility] HIV 1+2 Ab+HIV1 p24 Ag IA Ql Non-Reactive Nonreactive [facility] HIV immunoassay testing algorithm interpretation (S/P/Bld) [Interp] [facility] Lipid 1996 panelon 4 Cholesterol [Mass/Vol] 191 mg/dL <200 mg/dL [facility] Cholesterol in HDL [Mass/Vol] 43 mg/dL >39 mg/dL [facility] Cholesterol in LDL [Mass/Vol] 109 mg/dL High <100 mg/dL [facility] Cholesterol in LDL/Cholesterol in HDL [Mass ratio] 2.53 {ratio} <2.54 [facility] Cholesterol in VLDL [Mass/Vol] 39 mg/dL High <30 mg/dL [facility] Cholesterol non HDL [Mass/Vol] 148 mg/dL High <130 mg/dL [facility] Cholesterol.total/Chol esterol in HDL [Mass ratio] 4.44 {ratio} <5.10 [facility] Fasting Time 12 hrs [facility] Triglyceride [Mass/Vol] 194 mg/dL High <150 mg/dL [facility] PSA/PROSTSPECAG SCRNon 01-31 Prostate specific Ag [Mass/Vol] 5.20 ng/mL High <2.60 ng/mL [facility] TSH BLDon 02-01-2024 TSH Qn 1.000 m[IU]/L 0.270 - 4.200 mIU/L [facility] Basophil percentageon 2021 Bilirubin [Mass/Vol] 0.70 mg/dL 0.20-1.00 [facility] Work Phone: Comment on above: For patients on eltr ombopag therapy, use of Dimension [place] TBIL is not recommended. Chloride [Moles/Vol] 101 mmol/L 98-107 [facility] Work Phone: Glucose [Mass/Vol] 85 mg/dL 74-106 [facility] Work Phone: Potassium [Moles/Vol] 4.0 mmol/L 3.5-5.1 [facility] Work Phone: Protein [Mass/Vol] 7.1 g/dL 6.4-8.2 [facility] Work Phone: Sodium [Moles/Vol] 137 mmol/L 136-145 [facility] Work Phone: WBC (Bld) [#/Vol] 7.3 10*3/uL 4.4-11.0 [facility] Work Phone: Blood erythrocytes count (nu mber/volume)on 09-14-2022 RBC (Bld) [#/Vol] 5.31 10*6/uL 4.6-6.2 [facility] Work Phone: Blood hemoglobin measurement (mass/volume)on 09-14-2022 Hemoglobin (Bld) [Mass/Vol] 15.5 g/dL 13.0-16.5 [facility] Work Phone: Blood platelet mean volumeon 09-14-2022 Platelet mean volume (Bld) [Entitic vol] 11.3 fL 6.2-12.0 [facility] Work Phone: Determination of erythrocyte mean corpuscular volume (MCV)on 09-14-2022 MCV (RBC) [Entitic vol] 88.5 fL 80-94 [facility] Work Phone: Hematocrit Auto (Bld) [Volum e fraction]on 09-14-2022 Hematocrit (Bld) [Volume fraction] 47.0 % 40-54 [facility] Work Phone: Laboratory - Chemistry and C hemistry - challengeon 09-14-2022 ALP [Catalytic activity/Vol] 124 U/L 45-117 [facility] Work Phone: ALT [Catalytic activity/Vol] 24 U/L 16-61 [facility] Work Phone: CO2 [Moles/Vol] 29.0 mmol/L 21.0-32.0 [facility] Work Phone: Globulin (S) [Mass/Vol] 3.7 g/dL 2.2-4.2 [facility] Work Phone: Urea nitrogen/Creatinine [Mass ratio] 18.5 mg/mg 10-20 [facility] Work Phone: Laboratory - Hematology and Cell countson 09-14-2022 Erythrocyte distribution width (RBC) [Entitic vol] 45.0 fL 35.1-43.9 [facility] Work Phone: Erythrocyte distribution width (RBC) [Ratio] 14.0 % 11.6-14.6 [facility] Work Phone: MCH (RBC) [Entitic mass] 29.2 pg 27.0-32.0 [facility] Work Phone: MCHC Auto (RBC) [Mass/Vol]on 09-14-2022 MCHC (RBC) [Mass/Vol] 33.0 g/dL 32-36 [facility] Work Phone: No Panel Informationon 09-14 Estimated GFR (MDRD) Amer 100 mL/min >60 [facility] Work Phone: Comment on above: GFR Calc Estimated GFR (MDRD) Non-Af Amer 83 mL/min >60 [facility] Work Phone: Comment on above: Non- GFR Calc Platelets bldon 09-14-2022 Platelets (Bld) [#/Vol] 318 10*3/uL 150-450 [facility] Work Phone: Serum or plasma albumin gael urement (mass/volume)on 09-14-2022 Albumin [Mass/Vol] 3.4 g/dL 3.2-5.0 [facility] Work Phone: Serum or plasma albumin/glob ulin mass ratioon 09-14-2022 Albumin/Globulin [Mass ratio] 0.9 {ratio} 0.9-2.4 [facility] Work Phone: Serum or plasma calcium gael urement (mass/volume)on 09-14-2022 Calcium [Mass/Vol] 8.9 mg/dL 8.5-10.1 [facility] Work Phone: Serum or plasma creatinine m easurement (mass/volume)on 09-14-2022 Creatinine [Mass/Vol] 0.97 mg/dL 0.70-1.30 [facility] Work Phone: Comment on above: The validity of the calculated GFR & GFRAA in patients over 70 years has not been determined. Clinical correlation is essential. Serum or plasma urea nitroge n measurement (mass/volume)on 09-14-2022 Urea nitrogen [Mass/Vol] 18 mg/dL 7-18 [facility] Work Phone: Thin prep Papanicolaou smear with manual screeningon 09-14-2022 Thin prep Papanicolaou smear with manual screening 20 U/L 15-37 [facility] Work Phone: Thin prep Papanicolaou smear with manual screening 7 5-15 [facility] Work Phone: Laboratory - Microbiology an d Antimicrobial susceptibilityon 09-11-2022 SARS-CoV-2 (COVID-19) RNA ANALIA+probe Ql (Unsp spec) Detected Not Detect [facility] Work Phone: Comment on above: Normal Reference Ran ge: Not DetectedMethod:(RT-PCR) real-time reverse transcriptase PCRLuminex DANA Instrument*The Food and Drug Administration (FDA) has issued an Emergency Use Authorization (EAU) for the DANA SARS-CoV-2 Assay for the rapid detection of the virus that causes COVID-19. This test has been validated, but the FDAs independent review of this validation is pending.*Negative results do not preclude infection and should not be used as the sole basis for treatment or patient management. Optimum specimen types and timing for peak viral levels during infections caused by SARS-CoV-2 have not been determined. Collection of multiple specimens from the same patient may be necessary to detect the virus. The possibility of a false negative result should be considered if the patient has clinical presentation or has had recent exposure. Laboratory - Microbiology an d Antimicrobial susceptibilityon 09-09-2022 SARS-CoV-2 (COVID-19) RNA ANALIA+probe Ql (Unsp spec) Detected Not Detect [facility] Work Phone: Comment on above: Normal Reference Ran ge: Not DetectedMethod:(RT-PCR) real-time reverse transcriptase PCRLuminex DANA Instrument*The Food and Drug Administration (FDA) has issued an Emergency Use Authorization (EAU) for the DANA SARS-CoV-2 Assay for the rapid detection of the virus that causes COVID-19. This test has been validated, but the FDAs independent review of this validation is pending.*Negative results do not preclude infection and should not be used as the sole basis for treatment or patient management. Optimum specimen types and timing for peak viral levels during infections caused by SARS-CoV-2 have not been determined. Collection of multiple specimens from the same patient may be necessary to detect the virus. The possibility of a false negative result should be considered if the patient has clinical presentation or has had recent exposure. CT BRAIN WO IVCONon 09-12-20 CT BRAIN WO IVCON Final Report DATE OF EXAM: Sep 12 2020 8:39PM [facility] 0504 - CT BRAIN WO IVCON / PROCEDURE REASON: Head trauma, headache Physician Interpretation CT OF HEAD AND CERVICAL SPINE CLINICAL HISTORY: C-spine trauma, NEXUS/CCR positive (accession [id number]), Head trauma, headache (accession [id number]) TECHNIQUE: Routine non-IV contrast axial scanning through head and cervical spine. Reformatted sagittal and coronal cervical spine images also reviewed. CT Dose-Length Product (DLP): [address] Dose Reduction Employed: No dose reduction techniques were required COMPARISON: 07/12/[address] RESULT: Head: No acute intracranial hemorrhage, air or mass effect. Mild cerebral volume loss. No focal parenchymal abnormality. No evidence of hydrocephalus or extra axial hematoma. Bones/soft tissues: Left frontal scalp hematoma. No fracture of the calvarium and other included bony structures. Sinuses: The visible sinuses are clear. Cervical spine: Counting reference: Craniocervical junction. Alignment: Alignment is anatomic. Craniocervical junction: Craniocervical junction is normal. Bone: Included bony structures are intact without fracture or destructive changes. Degenerative change: C5-6 and C6-7 degenerative disc space narrowing, disc bulging and endplate osteophytes. Spinal canal: No spinal stenosis detected but please note that evaluation of the spinal canal can be significantly compromised by artifact from surrounding dense bony structures, especially in the lower cervical spine. Cervical soft tissues: The paraspinal soft tissues planes are maintained. Included upper thoracic structures are unremarkable. COMBINED IMPRESSION: 1. Head CT: No acute intracranial abnormality or calvarial fracture. 2. Cervical spine CT: No acute fracture or malalignment. Welding Machine Operator Electroslag: CRYS Transcribe Date/Time: Sep 12 2020 8:43P Dictated by : MARJ RICHARDSON MD This examination was interpreted and the report reviewed and electronically signed by: MARJ RICHARDSON MD on Sep 12 2020 8:50PM EST Normal [facility] CT CERVICAL SPINE WO IVCONon 09-12-2020 CT CERVICAL SPINE WO IVCON Final Report DATE OF EXAM: Sep 12 2020 8:39PM [facility] 0505 - CT CERVICAL SPINE WO IVCON / PROCEDURE REASON: C-spine trauma, NEXUS/CCR positive Physician Interpretation CT OF HEAD AND CERVICAL SPINE CLINICAL HISTORY: C-spine trauma, NEXUS/CCR positive (accession [id number]), Head trauma, headache (accession [id number]) TECHNIQUE: Routine non-IV contrast axial scanning through head and cervical spine. Reformatted sagittal and coronal cervical spine images also reviewed. CT Dose-Length Product (DLP): [address] Dose Reduction Employed: No dose reduction techniques were required COMPARISON: 07/12/[address] RESULT: Head: No acute intracranial hemorrhage, air or mass effect. Mild cerebral volume loss. No focal parenchymal abnormality. No evidence of hydrocephalus or extra axial hematoma. Bones/soft tissues: Left frontal scalp hematoma. No fracture of the calvarium and other included bony structures. Sinuses: The visible sinuses are clear. Cervical spine: Counting reference: Craniocervical junction. Alignment: Alignment is anatomic. Craniocervical junction: Craniocervical junction is normal. Bone: Included bony structures are intact without fracture or destructive changes. Degenerative change: C5-6 and C6-7 degenerative disc space narrowing, disc bulging and endplate osteophytes. Spinal canal: No spinal stenosis detected but please note that evaluation of the spinal canal can be significantly compromised by artifact from surrounding dense bony structures, especially in the lower cervical spine. Cervical soft tissues: The paraspinal soft tissues planes are maintained. Included upper thoracic structures are unremarkable. COMBINED IMPRESSION: 1. Head CT: No acute intracranial abnormality or calvarial fracture. 2. Cervical spine CT: No acute fracture or malalignment. Welding Machine Operator Electroslag: CRYS Transcribe Date/Time: Sep 12 2020 8:43P Dictated by : MARJ RICHARDSON MD This examination was interpreted and the report reviewed and electronically signed by: MARJ RICHARDSON MD on Sep 12 2020 8:50PM EST Normal [facility] BLADDER SCAN [facility] Vital Signs Date Time Vital Sign Value Performing Clinician Facility 02-22-2025 13:16-0400 Body height 182.9 cm Anya Hollaender CONSTRUCTION ESTIMATOR.RESIDENTIAL REAL ESTATE ASSISTANT Work Phone: [facility] 02-22-2025 13:16-0400 Body mass index (BMI) [Ratio] 39.06 kg/m2 Anya Hollaender CONSTRUCTION ESTIMATOR.RESIDENTIAL REAL ESTATE ASSISTANT Work Phone: [facility] 02-22-2025 13:16-0400 Body weight 130.64 kg Anya Hollaender CONSTRUCTION ESTIMATOR.RESIDENTIAL REAL ESTATE ASSISTANT Work Phone: [facility] Comment on above: per last visit, pt in wheelchair 02-22-2025 13:16-0400 Diastolic blood pressure 70 mm[Hg] Anya Hollaender CONSTRUCTION ESTIMATOR.RESIDENTIAL REAL ESTATE ASSISTANT Work Phone: [facility] 02-22-2025 13:16-0400 Heart rate 63 /min Anya Hollaender CONSTRUCTION ESTIMATOR.RESIDENTIAL REAL ESTATE ASSISTANT Work Phone: [facility] 02-22-2025 13:16-0400 Systolic blood pressure 150 mm[Hg] Anya Hollaender CONSTRUCTION ESTIMATOR.RESIDENTIAL REAL ESTATE ASSISTANT Work Phone: [facility] 01-19-2025 10:05-0400 Body height 182.9 cm Leonard Ko MD Work Phone: [facility] 01-19-2025 10:05-0400 Body mass index (BMI) [Ratio] 39.06 kg/m2 Leonard Ko MD Work Phone: [facility] 01-19-2025 10:05-0400 Body weight 130.64 kg Leonard Ko MD Work Phone: [facility] 01-19-2025 10:05-0400 Diastolic blood pressure 82 mm[Hg] Leonard Ko MD Work Phone: [facility] 01-19-2025 10:05-0400 Heart rate 62 /min Leonard Ko MD Work Phone: [facility] 01-19-2025 10:05-0400 SaO2% (BldA) [Mass fraction] 97 % Leonard Ko MD Work Phone: [facility] 01-19-2025 10:05-0400 Systolic blood pressure 144 mm[Hg] Leonard Ko MD Work Phone: [facility] [place] 12-12-2024 10:07-0500 Body height 182.9 cm Faith Moore CONSTRUCTION ESTIMATOR.RESIDENTIAL REAL ESTATE ASSISTANT Work Phone: [facility] [place] 12-12-2024 10:07-0500 Body temperature 97.7 [degF] Faith Marieim CONSTRUCTION ESTIMATOR.RESIDENTIAL REAL ESTATE ASSISTANT Work Phone: [facility] [place] 12-12-2024 10:07-0500 Diastolic blood pressure 70 mm[Hg] Faith Oscar CONSTRUCTION ESTIMATOR.RESIDENTIAL REAL ESTATE ASSISTANT Work Phone: [facility] [place] Comment on above: right wrist 12-12-2024 10:07-0500 Heart rate 68 /min Faith Marieim CONSTRUCTION ESTIMATOR.RESIDENTIAL REAL ESTATE ASSISTANT Work Phone: [facility] [place] 12-12-2024 10:07-0500 SaO2% (BldA) [Mass fraction] 95 % Faith Marieim CONSTRUCTION ESTIMATOR.RESIDENTIAL REAL ESTATE ASSISTANT Work Phone: [facility] [place] 12-12-2024 10:07-0500 Systolic blood pressure 104 mm[Hg] Faith Oscar CONSTRUCTION ESTIMATOR.RESIDENTIAL REAL ESTATE ASSISTANT Work Phone: [facility] [place] Comment on above: right wrist 10-27-2024 14:51-0500 Body height 182.9 cm Leonard Ko MD Work Phone: [facility] [place] 10-27-2024 14:51-0500 Body mass index (BMI) [Ratio] 39.06 kg/m2 Leonard Ko MD Work Phone: [facility] [place] 10-27-2024 14:51-0500 Body weight 130.64 kg Leonard Ko MD Work Phone: [facility] [place] 10-27-2024 14:51-0500 Diastolic blood pressure 79 mm[Hg] Leonard Ko MD Work Phone: [facility] [place] 10-27-2024 14:51-0500 Heart rate 65 /min Leonard Ko MD Work Phone: [facility] [place] 10-27-2024 14:51-0500 SaO2% (BldA) [Mass fraction] 98 % Leonard Ko MD Work Phone: [facility] [place] 10-27-2024 14:51-0500 Systolic blood pressure 132 mm[Hg] Leonard Ko MD Work Phone: [facility] [place] 10-26-2024 10:35-0500 Body height 182.9 cm Anya Hollaender CONSTRUCTION ESTIMATOR.RESIDENTIAL REAL ESTATE ASSISTANT Work Phone: [facility] [place] 10-26-2024 10:35-0500 Body mass index (BMI) [Ratio] 39.06 kg/m2 Anya Hollaender CONSTRUCTION ESTIMATOR.RESIDENTIAL REAL ESTATE ASSISTANT Work Phone: [facility] [place] 10-26-2024 10:35-0500 Body weight 130.64 kg Anya Hollaender CONSTRUCTION ESTIMATOR.RESIDENTIAL REAL ESTATE ASSISTANT Work Phone: [facility] [place] Comment on above: per last visit, pt in wheelchair 10-26-2024 10:35-0500 Diastolic blood pressure 72 mm[Hg] Anya Hollaender CONSTRUCTION ESTIMATOR.RESIDENTIAL REAL ESTATE ASSISTANT Work Phone: [facility] [place] 10-26-2024 10:35-0500 Heart rate 59 /min Anya Hollaender CONSTRUCTION ESTIMATOR.RESIDENTIAL REAL ESTATE ASSISTANT Work Phone: [facility] [place] 10-26-2024 10:35-0500 Systolic blood pressure 135 mm[Hg] Anya Hollaender CONSTRUCTION ESTIMATOR.RESIDENTIAL REAL ESTATE ASSISTANT Work Phone: [facility] [place] 10-13-2024 11:31-0500 Diastolic blood pressure 76 mm[Hg] Leonard Ko MD Work Phone: [facility] [place] 10-13-2024 11:31-0500 Heart rate 71 /min Leonard Ko MD Work Phone: [facility] [place] 10-13-2024 11:31-0500 Respiratory rate 16 /min Leonard Ko MD Work Phone: [facility] [place] 10-13-2024 11:31-0500 SaO2% (BldA) [Mass fraction] 99 % Leonard Ko MD Work Phone: [facility] [place] 10-13-2024 11:31-0500 Systolic blood pressure 146 mm[Hg] Leonard Ko MD Work Phone: [facility] [place] 09-18-2024 13:12-0500 Body height 182.9 cm Karthik Mastrucci CONSTRUCTION ESTIMATOR.RESIDENTIAL REAL ESTATE ASSISTANT Work Phone: [facility] [place] 09-18-2024 13:12-0500 Body mass index (BMI) [Ratio] 39.06 kg/m2 Karthik Mastrucci CONSTRUCTION ESTIMATOR.RESIDENTIAL REAL ESTATE ASSISTANT Work Phone: [facility] [place] 09-18-2024 13:12-0500 Body weight 130.64 kg Karthik Mastrucci CONSTRUCTION ESTIMATOR.RESIDENTIAL REAL ESTATE ASSISTANT Work Phone: [facility] [place] 09-18-2024 13:12-0500 Diastolic blood pressure 103 mm[Hg] Karthik Mastrucci CONSTRUCTION ESTIMATOR.RESIDENTIAL REAL ESTATE ASSISTANT Work Phone: [facility] [place] 09-18-2024 13:12-0500 Heart rate 63 /min Karthik Mastrucci CONSTRUCTION ESTIMATOR.RESIDENTIAL REAL ESTATE ASSISTANT Work Phone: [facility] [place] 09-18-2024 13:12-0500 Respiratory rate 18 /min Karthik Mastrucci CONSTRUCTION ESTIMATOR.RESIDENTIAL REAL ESTATE ASSISTANT Work Phone: [facility] [place] 09-18-2024 13:12-0500 SaO2% (BldA) [Mass fraction] 95 % Karthik Lucasccmanisha CONSTRUCTION ESTIMATOR.RESIDENTIAL REAL ESTATE ASSISTANT Work Phone: [facility] [place] 09-18-2024 13:12-0500 Systolic blood pressure 149 mm[Hg] Karthik Lucasccmanisha CONSTRUCTION ESTIMATOR.RESIDENTIAL REAL ESTATE ASSISTANT Work Phone: [facility] [place] 06-20-2024 10:29-0400 Body height 182.9 cm Leonard Ko MD Work Phone: [facility] [place] 06-20-2024 10:29-0400 Diastolic blood pressure 84 mm[Hg] Leonard Ko MD Work Phone: [facility] [place] 06-20-2024 10:29-0400 Heart rate 63 /min Leonard Ko MD Work Phone: [facility] [place] 06-20-2024 10:29-0400 Respiratory rate 18 /min Leonard Ko MD Work Phone: [facility] [place] 06-20-2024 10:29-0400 SaO2% (BldA) [Mass fraction] 97 % Leonard Ko MD Work Phone: [facility] [place] 06-20-2024 10:29-0400 Systolic blood pressure 144 mm[Hg] Leonard Ko MD Work Phone: [facility] [place] 05-30-2024 09:49-0400 Body height 182.9 cm Anya Huang CONSTRUCTION ESTIMATOR.RESIDENTIAL REAL ESTATE ASSISTANT Work Phone: [facility] [place] 05-30-2024 09:49-0400 Body mass index (BMI) [Ratio] 47.88 kg/m2 Anyarefugio Huang CONSTRUCTION ESTIMATOR.RESIDENTIAL REAL ESTATE ASSISTANT Work Phone: [facility] [place] 05-30-2024 09:49-0400 Body weight 160.12 kg Anya Huang CONSTRUCTION ESTIMATOR.RESIDENTIAL REAL ESTATE ASSISTANT Work Phone: [facility] [place] Comment on above: per last visit. pt in wheelchair 05-30-2024 09:49-0400 Diastolic blood pressure 67 mm[Hg] Anya Huang CONSTRUCTION ESTIMATOR.RESIDENTIAL REAL ESTATE ASSISTANT Work Phone: [facility] [place] 05-30-2024 09:49-0400 Heart rate 72 /min Anya Huang CONSTRUCTION ESTIMATOR.RESIDENTIAL REAL ESTATE ASSISTANT Work Phone: [facility] [place] 05-30-2024 09:49-0400 Systolic blood pressure 128 mm[Hg] Anya Huang CONSTRUCTION ESTIMATOR.RESIDENTIAL REAL ESTATE ASSISTANT Work Phone: [facility] [place] 05-23-2024 11:01-0400 Body height 182.9 cm Leonard Ko MD Work Phone: [facility] [place] 05-23-2024 11:01-0400 Diastolic blood pressure 77 mm[Hg] Leonard Ko MD Work Phone: [facility] [place] 05-23-2024 11:01-0400 Heart rate 60 /min Leonard Ko MD Work Phone: [facility] [place] 05-23-2024 11:01-0400 Respiratory rate 16 /min Leonard Ko MD Work Phone: [facility] [place] 05-23-2024 11:01-0400 SaO2% (BldA) [Mass fraction] 98 % Leonard Ko MD Work Phone: [facility] [place] 05-23-2024 11:01-0400 Systolic blood pressure 121 mm[Hg] Leonard Ko MD Work Phone: [facility] [place] 05-22-2024 10:18-0400 Body height 182.9 cm Suellen Conley CONSTRUCTION ESTIMATOR.RESIDENTIAL REAL ESTATE ASSISTANT Work Phone: [facility] [place] 05-22-2024 10:18-0400 Heart rate 68 /min Suellen Conley CONSTRUCTION ESTIMATOR.RESIDENTIAL REAL ESTATE ASSISTANT Work Phone: [facility] [place] 05-22-2024 10:18-0400 SaO2% (BldA) [Mass fraction] 98 % Suellen Conley CONSTRUCTION ESTIMATOR.RESIDENTIAL REAL ESTATE ASSISTANT Work Phone: [facility] [place] 05-09-2024 13:46-0400 Diastolic blood pressure 67 mm[Hg] Leonard Ko MD Work Phone: [facility] [place] 05-09-2024 13:46-0400 Heart rate 64 /min Leonard Ko MD Work Phone: [facility] [place] 05-09-2024 13:46-0400 Respiratory rate 20 /min Leonard Ko MD Work Phone: [facility] [place] 05-09-2024 13:46-0400 SaO2% (BldA) [Mass fraction] 93 % Leonard Ko MD Work Phone: [facility] [place] 05-09-2024 13:46-0400 Systolic blood pressure 110 mm[Hg] Leonard Ko MD Work Phone: [facility] [place] 05-08-2024 10:58-0400 Diastolic blood pressure 52 mm[Hg] Jed Wolf MD Work Phone: [facility] [place] 05-08-2024 10:58-0400 Systolic blood pressure 115 mm[Hg] Jed Wolf MD Work Phone: [facility] [place] 05-08-2024 10:51-0400 Body height 182.9 cm Jed Wolf MD Work Phone: [facility] [place] 05-08-2024 10:51-0400 Body mass index (BMI) [Ratio] 47.93 kg/m2 Jed Wolf MD Work Phone: [facility] [place] 05-08-2024 10:51-0400 Body weight 160.3 kg Jed Wolf MD Work Phone: [facility] [place] 05-08-2024 10:51-0400 Heart rate 56 /min Jed Wolf MD Work Phone: [facility] [place] 05-08-2024 10:51-0400 SaO2% (BldA) [Mass fraction] 96 % Jed Wolf MD Work Phone: [facility] [place] 02-01-2024 13:33-0400 Body height 182.9 cm Karthik Mastrucci CONSTRUCTION ESTIMATOR.RESIDENTIAL REAL ESTATE ASSISTANT Work Phone: [facility] [place] 02-01-2024 13:33-0400 Body weight 142.88 kg Karthik Mastrucci CONSTRUCTION ESTIMATOR.RESIDENTIAL REAL ESTATE ASSISTANT Work Phone: [facility] [place] 02-01-2024 13:33-0400 Diastolic blood pressure 85 mm[Hg] Karthik Mastrucci CONSTRUCTION ESTIMATOR.RESIDENTIAL REAL ESTATE ASSISTANT Work Phone: [facility] [place] 02-01-2024 13:33-0400 Heart rate 57 /min Karthik Mastrucci CONSTRUCTION ESTIMATOR.RESIDENTIAL REAL ESTATE ASSISTANT Work Phone: [facility] [place] 02-01-2024 13:33-0400 Respiratory rate 18 /min Karthik Mastrucci CONSTRUCTION ESTIMATOR.RESIDENTIAL REAL ESTATE ASSISTANT Work Phone: [facility] [place] 02-01-2024 13:33-0400 SaO2% (BldA) [Mass fraction] 97 % Karthik Mastrucci CONSTRUCTION ESTIMATOR.RESIDENTIAL REAL ESTATE ASSISTANT Work Phone: [facility] [place] 02-01-2024 13:33-0400 Systolic blood pressure 146 mm[Hg] Karthik Mastrucci CONSTRUCTION ESTIMATOR.RESIDENTIAL REAL ESTATE ASSISTANT Work Phone: [facility] [place] 01-18-2023 14:14-0400 Body height 182.9 cm Patricia Hsu PA-C Work Phone: [facility] [place] 01-18-2023 14:14-0400 Diastolic blood pressure 73 mm[Hg] Patricia Hsu PA-C Work Phone: [facility] [place] 01-18-2023 14:14-0400 Heart rate 79 /min Patricia Aracelis PA-C Work Phone: [facility] [place] 01-18-2023 14:14-0400 SaO2% (BldA) [Mass fraction] 97 % Patricia Petersongs PA-C Work Phone: [facility] [place] 01-18-2023 14:14-0400 Systolic blood pressure 125 mm[Hg] Patricia Hsu PA-C Work Phone: [facility] [place] 11-12-2022 14:02-0500 Body height 182.9 cm Rosalinda Shearers CONSTRUCTION ESTIMATOR.RESIDENTIAL REAL ESTATE ASSISTANT Work Phone: [facility] [place] 11-12-2022 14:02-0500 Body weight 145.79 kg Rosalinda Albertoadis CONSTRUCTION ESTIMATOR.RESIDENTIAL REAL ESTATE ASSISTANT Work Phone: [facility] [place] 11-12-2022 14:02-0500 Diastolic blood pressure 76 mm[Hg] Rosalinda Albertoadis CONSTRUCTION ESTIMATOR.RESIDENTIAL REAL ESTATE ASSISTANT Work Phone: [facility] [place] 11-12-2022 14:02-0500 Heart rate 56 /min Rosalinda Albertoadis CONSTRUCTION ESTIMATOR.RESIDENTIAL REAL ESTATE ASSISTANT Work Phone: [facility] [place] 11-12-2022 14:02-0500 Respiratory rate 12 /min Rosalinda Albertoadis CONSTRUCTION ESTIMATOR.RESIDENTIAL REAL ESTATE ASSISTANT Work Phone: [facility] [place] 11-12-2022 14:02-0500 SaO2% (BldA) [Mass fraction] 95 % Rosalinda Albertoadis CONSTRUCTION ESTIMATOR.RESIDENTIAL REAL ESTATE ASSISTANT Work Phone: [facility] [place] 11-12-2022 14:02-0500 Systolic blood pressure 124 mm[Hg] Rosalinda Albertoadis CONSTRUCTION ESTIMATOR.RESIDENTIAL REAL ESTATE ASSISTANT Work Phone: [facility] [place] 10-29-2022 09:03-0500 Diastolic blood pressure 75 mm[Hg] Josse De Oliveira MD Work Phone: [facility] [place] 10-29-2022 09:03-0500 Heart rate 60 /min Josse De Oliveira MD Work Phone: [facility] [place] 10-29-2022 09:03-0500 SaO2% (BldA) [Mass fraction] 93 % Josse De Oliveira MD Work Phone: [facility] [place] 10-29-2022 09:03-0500 Systolic blood pressure 149 mm[Hg] Josse De Oliveira MD Work Phone: [facility] [place] 10-21-2022 15:20-0500 Diastolic blood pressure 94 mm[Hg] Paul Mccall MD Work Phone: [facility] [place] 10-21-2022 15:20-0500 Heart rate 67 /min Paul Mccall MD Work Phone: [facility] [place] 10-21-2022 15:20-0500 SaO2% (BldA) [Mass fraction] 96 % Paul Mccall MD Work Phone: [facility] [place] 10-21-2022 15:20-0500 Systolic blood pressure 128 mm[Hg] Paul Mccall MD Work Phone: [facility] [place] 09-01-2022 14:54-0400 Body height 182.9 cm Lianne Menon CONSTRUCTION ESTIMATOR.RESIDENTIAL REAL ESTATE ASSISTANT Work Phone: [facility] [place] 09-01-2022 14:54-0400 Body weight 150.59 kg Lianne Menon CONSTRUCTION ESTIMATOR.RESIDENTIAL REAL ESTATE ASSISTANT Work Phone: [facility] [place] 09-01-2022 14:54-0400 Diastolic blood pressure 72 mm[Hg] Lianne Menon CONSTRUCTION ESTIMATOR.RESIDENTIAL REAL ESTATE ASSISTANT Work Phone: [facility] [place] 09-01-2022 14:54-0400 Heart rate 83 /min Lianne Menon CONSTRUCTION ESTIMATOR.RESIDENTIAL REAL ESTATE ASSISTANT Work Phone: [facility] [place] 09-01-2022 14:54-0400 Respiratory rate 16 /min Lianne Menon CONSTRUCTION ESTIMATOR.RESIDENTIAL REAL ESTATE ASSISTANT Work Phone: [facility] [place] 09-01-2022 14:54-0400 SaO2% (BldA) [Mass fraction] 97 % Lianne Menon CONSTRUCTION ESTIMATOR.RESIDENTIAL REAL ESTATE ASSISTANT Work Phone: [facility] [place] 09-01-2022 14:54-0400 Systolic blood pressure 128 mm[Hg] Lianne Menon CONSTRUCTION ESTIMATOR.RESIDENTIAL REAL ESTATE ASSISTANT Work Phone: [facility] [place] 05-08-2022 07:21-0400 Body height 182.9 cm Rosalinda Olivas CONSTRUCTION ESTIMATOR.RESIDENTIAL REAL ESTATE ASSISTANT Work Phone: [facility] [place] 05-08-2022 07:21-0400 Body temperature 97.7 [degF] Rosalinda Albertoadis CONSTRUCTION ESTIMATOR.RESIDENTIAL REAL ESTATE ASSISTANT Work Phone: [facility] [place] 05-08-2022 07:21-0400 Body weight 139.25 kg Rosalinda Shearers CONSTRUCTION ESTIMATOR.RESIDENTIAL REAL ESTATE ASSISTANT Work Phone: [facility] [place] 05-08-2022 07:21-0400 Diastolic blood pressure 93 mm[Hg] Rosalinda Albertoadis CONSTRUCTION ESTIMATOR.RESIDENTIAL REAL ESTATE ASSISTANT Work Phone: [facility] [place] 05-08-2022 07:21-0400 Heart rate 69 /min Rosalinda Albertoadis CONSTRUCTION ESTIMATOR.RESIDENTIAL REAL ESTATE ASSISTANT Work Phone: [facility] [place] 05-08-2022 07:21-0400 Respiratory rate 20 /min Rosalinda Albertoadis CONSTRUCTION ESTIMATOR.RESIDENTIAL REAL ESTATE ASSISTANT Work Phone: [facility] [place] 05-08-2022 07:21-0400 SaO2% (BldA) [Mass fraction] 98 % Rosalinda Albertoadis CONSTRUCTION ESTIMATOR.RESIDENTIAL REAL ESTATE ASSISTANT Work Phone: [facility] [place] 05-08-2022 07:21-0400 Systolic blood pressure 143 mm[Hg] Rosalinda Albertoadis CONSTRUCTION ESTIMATOR.RESIDENTIAL REAL ESTATE ASSISTANT Work Phone: [facility] [place] 04-10-2022 11:12-0400 Body height 15.2 cm Clint Euceda Jr., MD Work Phone: [facility] [place] 04-10-2022 11:12-0400 Body weight 143.06 kg Clint Euceda Jr., MD Work Phone: [facility] [place] 04-10-2022 11:12-0400 Diastolic blood pressure 88 mm[Hg] Clint Euceda Jr., MD Work Phone: [facility] [place] 04-10-2022 11:12-0400 Heart rate 60 /min Clint Euceda Jr., MD Work Phone: [facility] [place] 04-10-2022 11:12-0400 Respiratory rate 15 /min Clint Euceda Jr., MD Work Phone: [facility] [place] 04-10-2022 11:12-0400 SaO2% (BldA) [Mass fraction] 97 % Clint Euceda Jr., MD Work Phone: [facility] [place] 04-10-2022 11:12-0400 Systolic blood pressure 155 mm[Hg] Clint Euceda Jr., MD Work Phone: [facility] [place] 02-19-2022 13:17-0400 Body height 182.9 cm Paul Lorenz MD Work Phone: [facility] 02-19-2022 13:17-0400 Body temperature 98.01 [degF] Paul Lorenz MD Work Phone: [facility] [place] 02-19-2022 13:17-0400 Body weight 145.79 kg Paul Lorenz MD Work Phone: [facility] [place] 02-19-2022 13:17-0400 Diastolic blood pressure 76 mm[Hg] Paul Lorenz MD Work Phone: [facility] [place] 02-19-2022 13:17-0400 Heart rate 85 /min Paul Lorenz MD Work Phone: [facility] [place] 02-19-2022 13:17-0400 Systolic blood pressure 128 mm[Hg] Paul Lorenz MD Work Phone: [facility] [place] Encounters Encounter Date Encounter Type Care Provider Facility Start: 05-14-2025 ambulatory VIOLETTE ABDI Facility:[facility] Start: 05-14-2025 End: 05-14-2025 Subsequent hospital visit by physician Ekg/Holter/Event Monitor [place] [facility] Comment on above: 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 [T82.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] Start: 05-08-2025 End: 05-08-2025 Telephone encounter Sue Grewal MD Work Phone: [facility] Cardiology [place] Comment on above: Atrial flutter, unsp ecified type (HCC) (Primary Dx) Start: 03-20-2025 End: 03-20-2025 ambulatory Violette Abdi [facility] Start: 03-20-2025 End: 03-20-2025 Departed Referred Violette Abdi [place] [facility] Start: 03-20-2025 End: 03-20-2025 ambulatory Violette Lanaemily STEFANY Facility:[facility] Start: 03-14-2025 End: 03-14-2025 ambulatory Madina RILEY [employer] Start: 03-14-2025 End: 03-14-2025 Home visit Madina Amador RN [employer] Comment on above: 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 ) Start: 02-22-2025 End: 02-22-2025 Patient encounter procedure Anya Huang APRN.CNP Work Phone: Cerebrovascular Comment on above: Spastic hemiparesis of left dominant side as late effect of cerebral infarction (HCC) (Primary Dx); Silent micro-hemorrhage of brain (HCC); Atrial flutter, unspecified type (HCC); Essential hypertension; Dyslipidemia Start: 02-22-2025 End: 02-22-2025 [facility] Start: 02-05-2025 End: 02-05-2025 ambulatory Violette Schwartzmelanie MCCALL [facility] Work Phone: Start: 02-05-2025 End: 02-05-2025 [facility] Start: 02-05-2025 Registered Referred Violette Abdi iiko [place] Start: 02-05-2025 End: 02-05-2025 ambulatory Violette Loreemelanie STEFANY Facility:[facility] Start: 01-20-2025 End: 01-20-2025 Orders Only Candelario Schwartz MD Work Phone: Cardiology Comment on above: 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 (Primary Dx) Start: 01-19-2025 End: 01-19-2025 Patient encounter procedure Leonard Ko MD Work Phone: [facility] Comment on above: Intracranial meningi javed (HCC) (Primary Dx); Traumatic subdural hematoma with loss of consciousness, sequela (HCC) Start: 01-19-2025 End: 01-19-2025 ambulatory KARTHIK MASTRUCCI Facility:[facility] Start: 01-18-2025 End: 01-18-2025 ambulatory Karthik Mastrucci RESIDENTIAL REAL ESTATE ASSISTANT Work Phone: [facility] [place] Comment on above: Eyes doctor Start: 01-16-2025 ambulatory KARTHIK MASTRUCCI Facili ty:[place] [facility] Start: 01-16-2025 End: 01-16-2025 Subsequent hospital visit by physician Mri 3 [facility] (I-Stat/Lg Bore/1.5t) Work Phone: [facility] Comment on above: Intracranial meningi javed (HCC) [D32.0] Start: 01-08-2025 End: 01-08-2025 ambulatory Violette MCCALL [facility] Work Phone: Start: 01-08-2025 End: 01-08-2025 Departed Referred Violette Abdi -[facility] Start: 01-08-2025 End: 01-08-2025 ambulatory Violette MCCALL Facility:[facility] Start: 12-14-2024 End: 12-14-2024 ambulatory Faith Moore APRN.RESIDENTIAL REAL ESTATE ASSISTANT Work Phone: [facility] Hematology/Oncology Comment on above: the rest of results Start: 12-14-2024 End: 12-14-2024 E-mail encounter from caregiver Faith Moore APRN.RESIDENTIAL REAL ESTATE ASSISTANT Work Phone: [facility] Hematology/Oncology Start: 12-12-2024 End: 12-12-2024 Patient encounter procedure Faith Moore APRN.RESIDENTIAL REAL ESTATE ASSISTANT Work Phone: [facility] Hematology/Oncology Start: 12-12-2024 End: 12-12-2024 ambulatory Faith Moore APRN.RESIDENTIAL REAL ESTATE ASSISTANT Work Phone: [facility] Hematology/Oncology Comment on above: Multiple subsegmenta l pulmonary emboli without acute cor pulmonale (HCC); Acute deep vein thrombosis (DVT) of proximal vein of lower extremity, unspecified laterality (HCC) Start: 12-01-2024 End: 12-01-2024 Telephone encounter Karthik Hawthornemanisha YOUNGBLOOD Work Phone: [facility] [place] Comment on above: Medication Problem Start: 11-29-2024 End: 11-29-2024 Telephone encounter Karthik Holliday FELIX.RESIDENTIAL REAL ESTATE ASSISTANT Work Phone: [facility] [place] Start: 11-28-2024 End: 11-28-2024 Telemedicine consultation with patient Karthik Holliday FELIX.RESIDENTIAL REAL ESTATE ASSISTANT Work Phone: [facility] [place] Start: 11-28-2024 End: 11-28-2024 ambulatory Karthik Holliday FELIX.RESIDENTIAL REAL ESTATE ASSISTANT Work Phone: [facility] [place] Comment on above: Depression, unspecif ied depression type (Primary Dx) Start: 11-06-2024 End: 11-06-2024 Departed Referred Violette Abdi [facility] Start: 11-06-2024 End: 11-06-2024 ambulatory Violette MCCALL Facility:[facility] Start: 10-27-2024 End: 10-27-2024 Patient encounter procedure Leonard Ko MD Work Phone: [facility] Comment on above: Intracranial meningi javed (HCC) (Primary Dx); Benign neoplasm of meninges (HCC) Start: 10-27-2024 End: 10-27-2024 ambulatory KARTHIK NICHOLAS Facility:[facility] Start: 10-27-2024 End: 10-27-2024 Subsequent hospital visit by physician [facility] [place] [facility] CT [employer] [employer] Comment on above: Traumatic subdural h ematoma with loss of consciousness, sequela (HCC) [S06.5X9S] Start: 10-26-2024 End: 10-26-2024 Telephone encounter Anya Huang APRN.RESIDENTIAL REAL ESTATE ASSISTANT Work Phone: Cerebrovascular Comment on above: Consult Start: 10-26-2024 End: 10-26-2024 Patient encounter procedure Anya Huang APRN.CNP Work Phone: Cerebrovascular Comment on above: Spastic hemiparesis of left dominant side as late effect of cerebral infarction (HCC) (Primary Dx); Aphasia as late effect of cerebrovascular accident; Silent micro-hemorrhage of brain (HCC); Multiple subsegmental pulmonary emboli without acute cor pulmonale (HCC); Acute deep vein thrombosis (DVT) of proximal vein of lower extremity, unspecified laterality (HCC); Traumatic subdural hematoma with loss of consciousness, subsequent encounter; Atrial flutter, unspecified type (HCC); Essential hypertension; Dyslipidemia Start: 10-26-2024 End: 10-26-2024 ambulatory KARTHIK MASTRUCCI Facility:[facility] Start: 10-13-2024 End: 10-13-2024 Patient encounter procedure Leonard Ko MD Work Phone: [facility] Comment on above: Traumatic subdural h ematoma with loss of consciousness, sequela (HCC) (Primary Dx); Intracranial meningioma (HCC) Start: 10-13-2024 End: 10-13-2024 ambulatory KARTHIK MASTRUCCI Facility:[facility] Start: 10-10-2024 End: 10-10-2024 Telephone encounter Agata Del Toro APRN.CNP Work Phone: [facility] Comment on above: Results Start: 10-06-2024 ambulatory Violette Abdi OLS Faci lity:[facility] Start: 10-04-2024 End: 10-04-2024 Telephone encounter Anya Huang APRN.CNP Work Phone: Neurology Start: 10-02-2024 [facility] Start: 10-02-2024 End: 10-02-2024 Subsequent hospital visit by physician Mri 3 [facility] (I-Stat/Lg Bore/1.5t) Work Phone: [facility] Comment on above: Silent micro-hemorrh age of brain (HCC) [I61.8] Start: 09-29-2024 End: 09-29-2024 ambulatory Madina Amador RN [employer] Systems Technician Start: 09-29-2024 End: 09-29-2024 Home visit Madina Amador RN [employer] Technician Comment on above: 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 Care ( CCAG Discharge to [facility] ) Start: 09-23-2024 End: 09-28-2024 Evaluation and management of inpatient MIA GERONIMO Facility:[facility] Start: 09-21-2024 End: 09-21-2024 ambulatory Magda Del Angel RN NURSE TAX SPECIALIST Comment on above: High blood pressure Start: 09-20-2024 End: 09-20-2024 Telephone encounter Karthik Holliday APRN.CNP Work Phone: [facility] [place] Comment on above: Patient Update Start: 09-18-2024 End: 09-18-2024 Patient encounter procedure Karthik Holliday APRN.CNP Work Phone: [facility] [place] Comment on above: Hospital discharge f ollow-up (Primary Dx); Traumatic subdural hematoma with loss of consciousness, subsequent encounter; Thyroid nodule; Screening for depression; Encounter for screening examination for other mental health and behavioral disorders; Obesity, Class II, BMI 35-39.9; Essential hypertension; Benign prostatic hyperplasia with lower urinary tract symptoms, symptom details unspecified; Dyslipidemia; Weakness; Parkinson's disease without dyskinesia, unspecified whether manifestations fluctuate (HCC); Fungal rash of trunk; Obesity, Class III, BMI 40-49.9 (morbid obesity) (HCC) Start: 09-18-2024 End: 09-18-2024 ambulatory KARTHIK HOLLIDAY Facility:[facility] Start: 09-11-2024 End: 09-11-2024 ambulatory Madina Amador RN AG [employer]ics Systems Technician Start: 09-11-2024 End: 09-11-2024 Home visit Madina Amador RN AG [employer] Systems Technician Comment on above: 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 Care ( Discharged from [facility] to home) Initial phone contac t for Transitional Care Management Start: 07-05-2024 End: 07-05-2024 Refill Karthik Holliday APRN.CNP Work Phone: [facility] [place] Comment on above: Refill Request Start: 06-22-2024 E-mail encounter augie montgomery caregiver Nithya Riggs FELIX.RESIDENTIAL REAL ESTATE ASSISTANT Work Phone: [facility] Start: 06-22-2024 Follow-up encounter Nithya Keely [place].RESIDENTIAL REAL ESTATE ASSISTANT Work Phone: [facility] Comment on above: Actionable Finding f ollow up Start: 06-20-2024 End: 06-20-2024 Patient encounter procedure Leonard Ko MD Work Phone: [facility] Comment on above: Traumatic subdural h ematoma with loss of consciousness, sequela (HCC) (Primary Dx) Start: 06-20-2024 End: 06-20-2024 ambulatory KARTHIK MONTERORUCCI [facility] Start: 06-20-2024 End: 06-20-2024 Subsequent hospital visit by physician [facility] Comment on above: Traumatic subdural h ematoma with loss of consciousness, sequela (HCC) [S06.5X9S] Start: 06-20-2024 End: 06-20-2024 ambulatory Violette Ralphros OLS Facility:[facility] Start: 06-15-2024 ambulatory Peter Katsaros Facility :[facility] Start: 06-15-2024 End: 06-15-2024 ambulatory Violette Lanasaros OLS Facility:[facility] Start: 06-08-2024 ambulatory Madina Amador RN [facility] Amb ulatory Care Start: 06-08-2024 Home visit Madina Amador RN [facility] Comment on above: 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 Care ( CCAG Discharge to [facility]) Start: 06-07-2024 Telephone encounter Femi (Pss) Kylee shepard [facility] Start: 06-04-2024 End: 06-07-2024 ambulatory SERGIO VALLURI [facility] Start: 06-02-2024 E-mail encounter augie montgomery caregiver Nithya Riggs FELIX.RESIDENTIAL REAL ESTATE ASSISTANT Work Phone: [facility] Start: 06-02-2024 Follow-up encounter Nithya Riggs APRN.RESIDENTIAL REAL ESTATE ASSISTANT Work Phone: [facility] Comment on above: Actionable Finding F ollow up Start: 05-30-2024 End: 05-31-2024 ambulatory [facility] Facility:[facility] Start: 05-30-2024 End: 05-30-2024 Patient encounter procedure Anya Huang APRN.RESIDENTIAL REAL ESTATE ASSISTANT Work Phone: Cerebrovascular Comment on above: Hemiparesis affectin g left side as late effect of cerebrovascular accident (HCC) (Primary Dx); Aphasia as late effect of cerebrovascular accident; Silent micro-hemorrhage of brain (HCC); Subdural hematoma (HCC); SAH (subarachnoid hemorrhage) (HCC); Atrial flutter, unspecified type (HCC); Essential hypertension; Dyslipidemia Start: 05-24-2024 ambulatory [facility] Facility :[facility] Start: 05-23-2024 End: 05-23-2024 Patient encounter procedure Leonard Ko MD Work Phone: [facility] Comment on above: Traumatic subdural h ematoma with loss of consciousness, sequela (HCC) (Primary Dx); Intracranial meningioma (HCC) Start: 05-23-2024 End: 05-24-2024 ambulatory [facility] Facility:[facility] Start: 05-23-2024 End: 05-23-2024 Subsequent hospital visit by physician [facility] GRAB OPERATOR Comment on above: Traumatic subdural h ematoma with loss of consciousness, sequela (HCC) [S06.5X9S] Start: 05-22-2024 End: 05-22-2024 ambulatory Madina Amador RN AG [employer]ics Systems Technician Start: 05-22-2024 Home visit Madina Amador RN AG Amb ulatory Care Comment on above: 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 Care ( Discharged from [facility] Start: 05-22-2024 End: 05-22-2024 Office outpatient visit 15 minutes Suellen Conley APRN.CNP Work Phone: [facility] Comment on above: Benign prostatic hyp erplasia with urinary retention (Primary Dx) Start: 05-17-2024 Telephone encounter Paul Mccall MD Work Phone: [facility] Start: 05-09-2024 End: 05-09-2024 Patient encounter procedure Leonard Ko MD Work Phone: [facility] Comment on above: Traumatic subdural h ematoma with loss of consciousness, sequela (HCC) (Primary Dx); Intracranial meningioma (HCC) Start: 05-09-2024 End: 05-09-2024 Subsequent hospital visit by physician [facility] SCAN [facility] GRAB OPERATOR Comment on above: SDH (subdural hemato ma) (HCC) [S06.5XAA] Start: 05-08-2024 End: 05-08-2024 Patient encounter procedure Jed Wolf MD Work Phone: Cardiology Comment on above: Atrial flutter, unsp ecified type (HCC) (Primary Dx); Subdural hematoma (HCC); History of ischemic stroke Start: 05-05-2024 Telephone encounter Agata foote CONSTRUCTION ESTIMATOR.RESIDENTIAL REAL ESTATE ASSISTANT Work Phone: [facility] Comment on above: Patient Update Results Start: 05-04-2024 Orders Only Jed Wolf MD Work Phone: Cardiology Comment on above: Atrial flutter, unsp ecified type (HCC) (Primary Dx) Start: 05-03-2024 Telephone encounter Anya arciniega APRN.RESIDENTIAL REAL ESTATE ASSISTANT Work Phone: NEUROLOGY Comment on above: Results Start: 04-27-2024 End: 09-11-2024 ambulatory Karthik Mastrucci CONSTRUCTION ESTIMATOR.RESIDENTIAL REAL ESTATE ASSISTANT Work Phone: [facility] [place] Comment on above: Hospital F/U Opened In Error Start: 04-26-2024 ambulatory Karthik Mastruc ci CONSTRUCTION ESTIMATOR.RESIDENTIAL REAL ESTATE ASSISTANT Work Phone: [facility] [place] Comment on above: Hospital F/U Start: 04-26-2024 Home visit Madina Amador RN AG Amb ulatory Care Comment on above: 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 Care ( CCAG Discharge to [facility]) Start: 04-23-2024 Orders Only Scott Cervantes er CONSTRUCTION ESTIMATOR.RESIDENTIAL REAL ESTATE ASSISTANT Work Phone: [facility] Comment on above: SDH (subdural hemato ma) (HCC) (Primary Dx) Start: 04-17-2024 ambulatory Karthik Mastruc ci CONSTRUCTION ESTIMATOR.RESIDENTIAL REAL ESTATE ASSISTANT Work Phone: [facility] [place] Start: 02-14-2024 Telephone encounter Karthik Atif jovita CONSTRUCTION ESTIMATOR.RESIDENTIAL REAL ESTATE ASSISTANT Work Phone: [facility] [place] Comment on above: Results Start: 02-09-2024 Refill Karthik Mastruc ci CONSTRUCTION ESTIMATOR.RESIDENTIAL REAL ESTATE ASSISTANT Work Phone: [facility] [place] Comment on above: Refill Request Start: 02-02-2024 Telephone encounter Karthik Atif alejandroraeganci CONSTRUCTION ESTIMATOR.RESIDENTIAL REAL ESTATE ASSISTANT Work Phone: [facility] [place] Comment on above: Results Start: 02-01-2024 End: 02-01-2024 Patient encounter procedure Karthik Monterorucci CONSTRUCTION ESTIMATOR.RESIDENTIAL REAL ESTATE ASSISTANT Work Phone: [facility] [place] Comment on above: Encounter to [facility] (Primary Dx); Essential hypertension; Dyslipidemia; Benign prostatic hyperplasia with lower urinary tract symptoms, symptom details unspecified; Screening for HIV (human immunodeficiency virus); Vitamin D deficiency; Screening for prostate cancer; Depression, unspecified depression type; Encounter for immunization; Venous insufficiency; Localized swelling of left lower leg Start: 03-01-2023 Telephone encounter Clint Euceda MD Work Phone: [facility] Comment on above: Appointment (Cancell ation) Start: 02-01-2023 Refill Clint Euceda MD Work Phone: [facility] [place] Comment on above: Refill Request Start: 02-01-2023 Telephone encounter Clint Euceda MD Work Phone: [facility] Comment on above: Appointment (Cancell ation) Start: 01-18-2023 End: 01-18-2023 Patient encounter procedure Patricia Hsu PA-C Work Phone: [facility] Comment on above: Parkinsonism, unspec ified Parkinsonism type (HCC) (Primary Dx) Start: 12-17-2022 Refill Clint Euceda MD Work Phone: [facility] [place] Comment on above: Refill Request Start: 12-01-2022 ambulatory Inna Santillan RN Work Phone: [facility] Start: 12-01-2022 Follow-up encounter Inna A Tristian dhillon RN Work Phone: [facility] [employer] Technician Comment on above: 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 Care ( TCM PNA follow up call) Start: 11-24-2022 ambulatory Innaalexsandra Santillan RN Work Phone: [facility] Start: 11-24-2022 Follow-up encounter Inna A Tristian dhillon RN Work Phone: [facility] [employer] Technician Comment on above: 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 Care ( TCM PNA follow up call) Start: 11-17-2022 ambulatory Innaalexsandra Santillan RN Work Phone: [facility] Start: 11-17-2022 Follow-up encounter Inna A Tristian dhillon RN Work Phone: [facility] [employer] Technician Comment on above: 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 Care ( TCM follow up call) Start: 11-12-2022 End: 11-12-2022 Patient encounter procedure Rosalinda Olivas APRN.CNP Work Phone: [facility] [place] Comment on above: Hospital discharge f ollow-up (Primary Dx); Essential hypertension; Pneumonia due to influenza A virus; Weakness; Balance problem Start: 11-10-2022 ambulatory Innaalexsandra Santillan RN Work Phone: [facility] Start: 11-10-2022 Follow-up encounter Inna A Tristian jacquie RN Work Phone: [facility] [employer] Systems Technician Comment on above: 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 Care ( TCM follow up call) Start: 11-10-2022 Telephone encounter Josse balbuena MD Work Phone: [facility] Comment on above: Medication Problem Start: 10-29-2022 End: 10-29-2022 Patient encounter procedure Josse De Oliveira MD Work Phone: [facility] Comment on above: Parkinsonism, unspec ified Parkinsonism type (HCC) (Primary Dx); HARJEET (obstructive sleep apnea) Start: 10-21-2022 End: 10-21-2022 Patient encounter procedure Paul Mccall MD Work Phone: Urology Comment on above: Benign prostatic hyp erplasia with lower urinary tract symptoms, symptom details unspecified (Primary Dx); Urinary frequency Start: 10-08-2022 Patient Outreach Moo Mello Avionics Systems Technician Comment on above: 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 Care ( Dc from [facility] 10/05/22) Start: 10-07-2022 End: 10-07-2022 ambulatory Josse De Oliveira MD Work Phone: Neurology Comment on above: Shuffling gait (Prim heydi Dx); Gait instability Start: 10-07-2022 End: 10-07-2022 Telemedicine consultation with patient Josse De Oliveira MD Work Phone: [facility] Start: 09-29-2022 Patient Outreach Moo Mello Avionics Systems Technician Comment on above: 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 Care ( SNF update) Start: 09-24-2022 Telephone encounter Clint Euceda MD Work Phone: [facility] [place] Comment on above: Referral Information (Consult to Neurology # [id number]) Start: 09-22-2022 ambulatory Clint Euceda MD Work Phone: Avionics Systems Technician Start: 09-21-2022 Patient Outreach Moo Mello Avionics Systems Technician Comment on above: 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 Care Start: 09-17-2022 Telephone encounter Clint Euceda MD Work Phone: [facility] Comment on above: Patient Question (Pt would like to see Neurology to investigate possibility of Parkinsonism.) Start: 09-14-2022 End: 09-14-2022 Departed Referred [facility] Start: 09-14-2022 Registered Referred [facility] Start: 09-11-2022 End: 09-11-2022 ambulatory [facility] Work Phone: Start: 09-11-2022 End: 09-11-2022 Departed Referred [facility] Start: 09-09-2022 End: 09-09-2022 ambulatory [facility] Work Phone: Start: 09-09-2022 End: 09-09-2022 Departed Referred [facility] Start: 09-09-2022 Registered Referred [facility] Start: 09-08-2022 Telephone encounter Layne Cruz APRN.RESIDENTIAL REAL ESTATE ASSISTANT Work Phone: [facility] Comment on above: Hospital F/U Start: 09-07-2022 Patient Outreach Moo Faith G Avionics Systems Technician Comment on above: 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 Care ( [facility] to SNF 09/06/22) Start: 09-03-2022 Telephone encounter Paul Mccall MD Work Phone: [facility] Start: 09-03-2022 End: 09-03-2022 Patient encounter procedure Mitzi Dennsi APRN.RESIDENTIAL REAL ESTATE ASSISTANT Work Phone: Urology Comment on above: NO SHOW (Primary Dx) Start: 09-01-2022 End: 09-01-2022 Patient encounter procedure Lianne Menon APRN.RESIDENTIAL REAL ESTATE ASSISTANT Work Phone: [facility] Comment on above: Fall, initial encoun ter (Primary Dx); Balance problem; Fatigue, unspecified type Start: 05-08-2022 End: 05-08-2022 Patient encounter procedure Rosalinda Olivas APRN.RESIDENTIAL REAL ESTATE ASSISTANT Work Phone: [facility] [place] Comment on above: Chronic midline thor acic back pain (Primary Dx); Dyslipidemia; Balance problem Start: 04-10-2022 End: 04-10-2022 Patient encounter procedure Clint Euceda MD Work Phone: [facility] Comment on above: Benign prostatic hyp erplasia with lower urinary tract symptoms, symptom details unspecified (Primary Dx); Essential hypertension; Dyslipidemia Start: 03-23-2022 Refill Jay muniz MD Work Phone: [facility] ([facility]) Comment on above: Refill Request (Lipi tor) Start: 02-19-2022 End: 02-19-2022 Patient encounter procedure Paul Lorenz MD Work Phone: [facility] Comment on above: Essential hypertensi on (Primary Dx); halfway current use of diuretic Procedures Date Procedure Procedure Detail Performing Clinician Start: 02-22-2025 Follow-up visit Follow Up FELICITA HUANG Start: 09-25-2024 Echocardiography KARTHIK MASTRUCCI Start: 09-23-2024 Electrocardiogram JUSTI N MASTRUCCI Start: 09-18-2024 Adult depression scr eening assessment Karthik Mastrucci CONSTRUCTION ESTIMATOR.RESIDENTIAL REAL ESTATE ASSISTANT Work Phone: Start: 04-18-2024 Lipid 1996 panel - S osvaldo or Plasma Karthik Mastrucci CONSTRUCTION ESTIMATOR.RESIDENTIAL REAL ESTATE ASSISTANT Work Phone: Start: 02-01-2024 Lipid 1996 panel - S osvaldo or Plasma Karthik Mastrucci CONSTRUCTION ESTIMATOR.RESIDENTIAL REAL ESTATE ASSISTANT Work Phone: Start: 10-21-2022 BLADDER SCAN Paul Mccall MD Work Phone: Start: 01-19-2022 Adult depression scr eening assessment Paul Lorenz MD Work Phone: Start: 10-22-2020 Colonoscopy Paul waller MD Work Phone: Plan of Treatment Date Care Activity Detail Author Start: 07-02-2030 Urine microalbumin profile [facility] Start: 04-18-2029 Lipid panel Lipid Screening [facility] Start: 01-31-2029 Lipid panel Lipid Screening [facility] Start: 01-31-2029 Prostate specific antigen measurement Prostate Cancer Screening Discussion [facility] Start: 12-12-2027 Diabetes Screening Diabetes Screening [facility] Start: 09-27-2027 Diabetes Screening Diabetes Screening [facility] Start: 06-06-2027 Diabetes Screening Diabetes Screening [facility] Start: 05-18-2027 Diabetes Screening Diabetes Screening [facility] Start: 05-07-2027 Diabetes Screening Diabetes Screening [facility] Start: 04-22-2027 Diabetes Screening Diabetes Screening [facility] Start: 04-17-2027 Diabetes Screening Diabetes Screening [facility] Start: 01-31-2027 Diabetes Screening Diabetes Screening [facility] Start: 11-08-2026 Screening for malignant neoplasm of colon Colorectal Cancer Screening [facility] Comment on above: Postponed from 01/26/2004 (Postponed To Appropriate Date) Start: 12-12-2025 BP Controlled (<130/80) BP Controlled (<130/80) [facility] in Start: 11-28-2025 Annual PCP Team Chronic Disease Visit Annual PCP Team Chronic Disease Visit [facility] Start: 11-01-2025 DIABETES SCREEN DIABETES SCREEN [facility] Start: 11-01-2025 Diabetes Screening Diabetes Screening [facility] Start: 10-29-2025 DIABETES SCREEN DIABETES SCREEN [facility] Start: 09-18-2025 Annual PCP Team Chronic Disease Visit Annual PCP Team Chronic Disease Visit [facility] Start: 09-18-2025 Anxiety Screening Anxiety Screening [facility] Start: 09-18-2025 Depression Screening Depression Screening [facility] Start: 09-03-2025 DIABETES SCREEN DIABETES SCREEN [facility] Start: 09-01-2025 DIABETES SCREEN DIABETES SCREEN [facility] Start: 07-09-2025 Influenza vaccination Influenza Vaccine (#1) [facility] Start: 06-28-2025 End: 06-28-2025 Patient encounter procedure 06/28/2025 3:20 PM EDT Office Visit [facility] [address] [place] [address] Sue Grewal MD [address] [place] [address] [place] [phone] Wolf ([facility]) Lindsey Bain [facility] Comment on above: DBEBI from Dr. Wolf ([facility]) Jacquelyn Guaman Start: 06-21-2025 End: 06-21-2025 Patient encounter procedure 06/21/2025 1:00 PM EDT Office Visit Cerebrovascular [address] [place] [address] Anya Huang, CONSTRUCTION ESTIMATOR.RESIDENTIAL REAL ESTATE ASSISTANT [address] [place], [place] [phone] 4 month follow up Cerebrovascular Comment on above: 4 month follow up Start: 06-11-2025 End: 06-11-2025 ambulatory 06/11/2025 10:00 AM EDT Visit (SP) Office [facility] [address] [place] [address] Faith Moore, CONSTRUCTION ESTIMATOR.RESIDENTIAL REAL ESTATE ASSISTANT [address] [place] [address] 6mo ov f/u [facility] Comment on above: 6mo ov f/u Start: 05-30-2025 BP Controlled (<130/80) BP Controlled (<130/80) [facility] Start: 05-23-2025 BP Controlled (<130/80) BP Controlled (<130/80) [facility] Start: 05-14-2025 End: 05-14-2025 Patient encounter procedure 05/14/2025 1:45 PM EDT Appointment [facility] [address] [place], [place] [phone] Dx: Consideration of Watchman Device [facility] Comment on above: Dx: Consideration of Watchman Device Start: 05-09-2025 BP Controlled (<130/80) BP Controlled (<130/80) [facility] Start: 05-08-2025 End: 05-08-2025 ambulatory 05/08/2025 12:15 PM EDT Procedure Cardiology [address] [phone] Dx: Consideration of Watchman Device Cardiology Comment on above: Dx: Consideration of Watchman Device Start: 05-08-2025 End: 05-08-2025 Patient encounter procedure Cardiology Comment on above: Dx: Consideration of Watchman Device Start: 03-09-2025 DIABETES SCREEN DIABETES SCREEN [facility] Start: 02-22-2025 End: 02-22-2025 Patient encounter procedure 02/22/2025 1:30 PM EDT Office Visit Cerebro[facility] [address] [place] [address] Anya Huang APRN.RESIDENTIAL REAL ESTATE ASSISTANT [address] [place] [address] 4 month follow up Cerebrovascular Comment on above: 4 month follow up Start: 02-14-2025 Covid-19 Vaccine ( season) Covid-19 Vaccine ( season) [facility] Start: 01-31-2025 Annual PCP Team Chronic Disease Visit Annual PCP Team Chronic Disease Visit [facility] Start: 01-31-2025 Covid-19 Vaccine ( season) Covid-19 Vaccine ( season) [facility] Comment on above: Postponed from 07/09/2023 (Declined at t his time) Start: 01-31-2025 RSV Vaccine (1 - 1-dose 60+ series) RSV Vaccine (1 - 1-dose 60+ series) [facility] Comment on above: Postponed from 2019 (Declined at t his time) Start: 01-31-2025 RSV Vaccine (1 - Risk 60-74 years 1-dose series) RSV Vaccine (1 - Risk 60-74 years 1-dose series) [facility] Comment on above: Postponed from 2019 (Declined at t his time) Start: 01-31-2025 Shingrix Vaccine (1 of 2) Shingrix Vaccine (1 of 2) [facility] Comment on above: Postponed from 2009 (Declined at t his time) Start: 01-19-2025 End: 01-19-2025 Patient encounter procedure 01/19/2025 10:30 AM EDT Office Visit [facility] [address] [id number] Leonard Ko MD [address] [place] [address] follow up after MRI done 01/16 [facility] Comment on above: follow up after MRI done 01/16 Start: 01-16-2025 End: 01-16-2025 Patient encounter procedure 01/16/2025 10:30 AM EDT Appointment [facility] [address] [facility] [facility] [place] [address] Intracranial meningioma (HCC) [D32.0]; Benign neoplasm of meninges (HCC) [D32.9] [facility] Comment on above: Intracranial meningioma (HCC) [D32.0]; B enign neoplasm of meninges (HCC) [D32.9] Start: 12-21-2024 End: 12-21-2024 Patient encounter procedure 12/21/2024 1:40 PM EST Office Visit [facility] [place] [address] [place] [address] Karthik Holliday APRN.RESIDENTIAL REAL ESTATE ASSISTANT [address] [place] [address] 3 Month Follow-up [facility] [place] Comment on above: 3 Month Follow-up Start: 12-12-2024 End: 03-13-2025 BETA 2 GLYCOPROTEIN, [facility] Comment on above: Expected: 12/12/2024, Expires: Start: 12-12-2024 End: 03-13-2025 BETA 2 GLYCOPROTEIN, IGM [facility] Comment on above: Expected: 12/12/2024, Expires: Start: 12-12-2024 End: 03-13-2025 Cardiolipin IgG and IgM panel - Serum [facility] Comment on above: Expected: 12/12/2024, Expires: Start: 12-12-2024 End: 03-13-2025 F2 gene mutations found [Identifier] in Blood or Tissue by Molecular genetics method Nominal [facility] Comment on above: Expected: 12/12/2024, Expires: Start: 12-12-2024 End: 03-13-2025 FACTOR V LEIDEN/PCR [facility] Work Phone: Comment on above: Expected: 12/12/2024, Expires: Start: 12-12-2024 End: 12-12-2024 ambulatory [facility] Comment on above: Multiple subsegmental pulmonary emboli w citlalliout acute cor pulmonale Start: 11-08-2024 Advance Directive Discussion Advance Directive Discussion [facility] Start: 11-08-2024 Medicare Advantage Annual Wellness Visit Medicare Advantage Annual Wellness Visit [facility] Start: 10-27-2024 End: 10-27-2024 Patient encounter procedure RADIO CT SCAN [facility] Comment on above: Brain [address] today CT BRAIN WO Start: 10-26-2024 End: 10-26-2024 Patient encounter procedure 10/26/2024 10:30 AM EST Office Visit [facility] [address] [place], [place] [phone] Anya Huang APRN.RESIDENTIAL REAL ESTATE ASSISTANT [address] [place], [place] [phone] 10 week follow up [facility] Comment on above: 10 week follow up Start: 10-20-2024 End: 10-20-2024 Patient encounter procedure 10/20/2024 11:30 AM EST Office Visit [facility] [address] [facility] [phone] Leonard Ko MD [address], [place] [address] 4 month routine f/u [facility] Comment on above: 4 month routine f/u Start: 10-13-2024 End: 10-13-2024 Patient encounter procedure 10/13/2024 11:45 AM EST Office Visit [facility] [address] [facility] [phone] Leonard Ko MD [address] [facility] [place], [place] [phone] 4 month routine f/u [facility] Comment on above: 4 month routine f/u Start: 10-02-2024 End: 10-02-2024 Patient encounter procedure 10/02/2024 8:00 AM EST Appointment [facility] [address] [facility] [place] [address] 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] [facility] Comment on above: Silent micro-hemorrhage of brain (HCC) [ I61.8] Start: 09-22-2024 End: 09-22-2024 Patient encounter procedure 09/22/2024 7:20 AM EST Office Visit [facility] [address], [place] [phone] Rosalinda Olivas APRN.RESIDENTIAL REAL ESTATE ASSISTANT [address] [facility] [address] [place] [address] BP [facility] Comment on above: BP Start: 09-18-2024 End: 12-18-2024 25-hydroxyvitamin D3 [Mass/volume] in Serum or Plasma VITAMIN D 25 HYDROXY Lab Routine Essential hypertension Expected: 09/18/2024, Expires: 12/18/2024 [facility] Comment on above: Expected: 09/18/2024, Expires: Start: 09-18-2024 End: 12-18-2024 CBC W Auto Differential panel - Blood COMPLETE BLOOD COUNT AND DIFFERENTIAL Lab Routine Essential hypertension Expected: 09/18/2024, Expires: 12/18/2024 [facility] Comment on above: Expected: 09/18/2024, Expires: Start: 09-18-2024 End: 12-18-2024 Comprehensive metabolic 2000 panel - Serum or Plasma COMPREHENSIVE METABOLIC PANEL Lab Routine Essential hypertension Expected: 09/18/2024, Expires: 12/18/2024 [facility] Comment on above: Expected: 09/18/2024, Expires: Start: 09-18-2024 End: 12-18-2024 Hemoglobin A1c in Blood HEMOGLOBIN A1C Lab Routine Essential hypertension Dyslipidemia Expected: 09/18/2024, Expires: 12/18/2024 [facility] Comment on above: Expected: 09/18/2024, Expires: Start: 09-18-2024 End: 12-18-2024 Lipid 1996 panel - Serum or Plasma LIPID PANEL BASIC Lab Routine Essential hypertension Dyslipidemia Expected: 09/18/2024, Expires: 12/18/2024 [facility] Comment on above: Expected: 09/18/2024, Expires: Start: 09-18-2024 End: 12-18-2024 Microalbumin/Creatinine [Mass Ratio] in Urine ALBUMIN/CREATININE RATIO, URINE Lab Routine Essential hypertension Expected: 09/18/2024, Expires: 12/18/2024 [facility] Comment on above: Expected: 09/18/2024, Expires: Start: 09-18-2024 End: 12-18-2024 Prostate Specific Ag Free [Mass/volume] in Serum or Plasma PROSTATE SPECIFIC ANTIGEN, FREE Lab Routine Benign prostatic hyperplasia with lower urinary tract symptoms, symptom details unspecified Expected: 09/18/2024, Expires: 12/18/2024 [facility] Comment on above: Expected: 09/18/2024, Expires: Start: 09-18-2024 End: 12-18-2024 Thyrotropin [Units/volume] in Serum or Plasma THYROID STIMULATING HORMONE Lab Routine Thyroid nodule Expected: 09/18/2024, Expires: 12/18/2024 [facility] Comment on above: Expected: 09/18/2024, Expires: Start: 09-18-2024 End: 09-18-2024 Patient encounter procedure 09/18/2024 1:20 PM EST Office Visit [facility] [place] [address], [place] [phone] Karthik Holliday APRN.RESIDENTIAL REAL ESTATE ASSISTANT [address] [place] [address] TCM rehab follow up, failure to thrive, [facility] 09/08 [facility] [place] Comment on above: TCM rehab follow up, failure to thrive, [facility] 09/08 Start: 08-15-2024 DIABETES SCREEN DIABETES SCREEN [facility] Start: 08-10-2024 End: 08-10-2024 Patient encounter procedure 08/10/2024 2:30 PM EDT Office Visit [facility] [address] [place] [address] Anya Huang, CONSTRUCTION ESTIMATOR.RESIDENTIAL REAL ESTATE ASSISTANT [address] [phone] 10 week follow up [facility] Comment on above: 10 week follow up Start: 08-07-2024 End: 08-07-2024 Patient encounter procedure 08/07/2024 11:00 AM EDT Appointment [facility] [address] [place] [address] 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] [facility] Comment on above: Silent micro-hemorrhage of brain (HCC) [ I61.8] Start: 08-04-2024 End: 08-04-2024 Patient encounter procedure 08/04/2024 2:40 PM EDT Office Visit [facility] [place] [address] [place] [address] Karthik Holliday, CONSTRUCTION ESTIMATOR.RESIDENTIAL REAL ESTATE ASSISTANT [address] [place] [address] 6 month follow up [facility] [place] Comment on above: 6 month follow up Start: 07-09-2024 Covid-19 Vaccine ( season) Covid-19 Vaccine ( season) [facility] Start: 07-09-2024 Influenza vaccination [facility] Start: 06-20-2024 End: 06-20-2024 Patient encounter procedure RADIO CT SCAN [facility] Comment on above: CT BRAIN WO 4 week f/u, CT today Start: 06-09-2024 Orders Only 06/09/2024 Orders Only Cardiology [address] [place], [place] [phone] Jed Wolf MD [address] [place], [place] [phone] Cardiology Start: 05-30-2024 End: 05-30-2024 Patient encounter procedure 05/30/2024 9:30 AM EDT Office Visit [facility] [address] [place] [address] Anya Huang APRN.RESIDENTIAL REAL ESTATE ASSISTANT [address] [address] Order [id number] [facility] Comment on above: Order [id number] Start: 05-26-2024 End: 05-26-2024 Patient encounter procedure RADIO CT SCAN [facility] Comment on above: CT BRAIN WO post op, CT today Start: 05-23-2024 End: 05-23-2024 Patient encounter procedure RADIO CT SCAN [facility] Comment on above: CT BRAIN WO-GK [address] Start: 05-22-2024 End: 05-22-2024 Patient encounter procedure 05/22/2024 10:00 AM EDT Office Visit [facility] [address] [place] [address] Suellen Conley, CONSTRUCTION ESTIMATOR.RESIDENTIAL REAL ESTATE ASSISTANT [address] [place] [address] [place] [address] [facility] follow up for void trial-no [place]-call from [facility] [phone] [facility] Comment on above: [place] [facility] follow up fo r void trial-no [place]-call from [facility] [phone] Start: 05-19-2024 End: 05-19-2024 Patient encounter procedure RADIO CT SCAN [facility] Comment on above: CT BRAIN WO-GK [address] Start: 05-08-2024 End: 05-08-2024 Patient encounter procedure 05/08/2024 9:45 AM EDT Office Visit Cardiology [address] [place] [address] Jed Wolf MD [address] [place] [address] Atrial flutter, unspecified type (HCC) [I48.92] Cardiology Comment on above: Atrial flutter, unspecified type (HCC) [ I48.92] Start: 05-08-2024 End: 05-08-2024 ambulatory 05/08/2024 8:45 AM EDT Results Only Cardiology [address] [place] [address] Atrial flutter, unspecified type (HCC) [I48.92] Cardiology Comment on above: Atrial flutter, unspecified type (HCC) [ I48.92] Start: 05-07-2024 Influenza vaccination [facility] Comment on above: Postponed from 07/09/2023 (Declined at t his time) Start: 05-02-2024 End: 05-02-2024 Patient encounter procedure 05/02/2024 1:30 PM EDT Office Visit [facility] [address] [facility] [place] [phone] Leonard Ko MD [address] [place] [address] 1st post op, suture removal [facility] Comment on above: 1st post op, suture removal Start: 03-02-2024 ANNUAL PCP TEAM CHRONIC DISEASE VISIT ANNUAL PCP TEAM CHRONIC DISEASE VISIT [facility] Start: 02-01-2024 End: 05-02-2024 25-hydroxyvitamin D3 [Mass/volume] in Serum or Plasma [facility] Work Phone: Comment on above: Expected: 02/01/2024, Expires: Start: 01-19-2024 BP CONTROLLED (<130/80) BP CONTROLLED (<130/80) [facility] Start: 11-12-2023 ANNUAL PCP TEAM CHRONIC DISEASE VISIT ANNUAL PCP TEAM CHRONIC DISEASE VISIT [facility] Start: 11-12-2023 BP CONTROLLED (<130/80) BP CONTROLLED (<130/80) [facility] Start: 11-08-2023 Behavioral Health Screening Behavioral Health Screening [facility] Start: 10-22-2023 Colonoscopy COLONOSCOPY [facility] Start: 10-22-2023 COLORECTAL CANCER SCREENING COLORECTAL CANCER SCREENING [facility] Start: 10-22-2023 Screening for malignant neoplasm of colon Colonoscopy [facility] Start: 09-01-2023 BP CONTROLLED (<130/80) BP CONTROLLED (<130/80) [facility] Start: 07-09-2023 Influenza vaccination INFLUENZA (#1) [facility] Start: 05-08-2023 ANNUAL PCP TEAM CHRONIC DISEASE VISIT ANNUAL PCP TEAM CHRONIC DISEASE VISIT [facility] Start: 04-10-2023 ANNUAL PCP TEAM CHRONIC DISEASE VISIT ANNUAL PCP TEAM CHRONIC DISEASE VISIT [facility] Start: 03-09-2023 ANNUAL PCP TEAM CHRONIC DISEASE VISIT ANNUAL PCP TEAM CHRONIC DISEASE VISIT [facility] Start: 03-03-2023 PROSTATE CANCER SCREENING DISCUSSION PROSTATE CANCER SCREENING DISCUSSION [facility] Comment on above: Postponed from 05/25/2021 (Postponed - N ot Clinically Indicated) Start: 02-19-2023 ANNUAL PCP TEAM CHRONIC DISEASE VISIT ANNUAL PCP TEAM CHRONIC DISEASE VISIT [facility] Start: 02-19-2023 BP CONTROLLED (<130/80) BP CONTROLLED (<130/80) [facility] Start: 02-19-2023 HIV SCREENING HIV SCREENING [facility] Comment on above: Postponed from 1977 (Declined at t his time) Start: 01-19-2023 Adult depression screening assessment DEPRESSION SCREENING [facility] Start: 12-22-2022 End: 02-21-2023 CBC W Auto Differential panel - Blood CBC + DIFF Lab Routine Pneumonia due to influenza A virus Expected: 12/22/2022, Expires: 02/21/2023 [facility] Work Phone: Comment on above: Expected: 12/22/2022, Expires: Start: 12-22-2022 End: 12-12-2023 Radiologic exam chest 2 views XR CHEST 2V FRONTAL/LAT Radiology Routine Pneumonia due to influenza A virus Expected: 12/22/2022, Expires: 12/12/2023 [facility] Work Phone: Comment on above: Expected: 12/22/2022, Expires: 4 Start: 12-17-2022 Lipid panel Lipid Screening [facility] Start: 12-17-2022 LIPID SCREEN LIPID SCREEN [facility] Start: 11-08-2022 DEPRESSION ASSESSMENT DEPRESSION ASSESSMENT [facility] Start: 09-22-2022 End: 11-22-2022 Lipid 1996 panel - Serum or Plasma LIPID PANEL BASIC Lab Routine Essential hypertension Expected: 09/22/2022, Expires: 11/22/2022 [facility] Work Phone: Comment on above: Expected: 09/22/2022, Expires: 3 Start: 09-22-2022 End: 11-22-2022 SCHEDULE LAB TESTING SCHEDULE LAB TESTING Lab Routine Expected: 09/22/2022, Expires: 11/22/2022 [facility] Work Phone: Comment on above: Expected: 09/22/2022, Expires: 3 Start: 07-09-2022 Influenza vaccination [facility] Start: 05-10-2022 End: 07-20-2022 Aspartate aminotransferase [Enzymatic activity/volume] in Serum or Plasma AST/SGOT BLD Lab Routine Dyslipidemia Expected: 05/10/2022, Expires: 07/20/2022 [facility] Work Phone: Comment on above: Expected: 05/10/2022, Expires: 2 Start: 04-21-2022 COVID-19 VACCINE (4 - Booster for Pfizer series) COVID-19 VACCINE (4 - Booster for Pfizer series) [facility] Start: 04-10-2022 End: 06-10-2022 LIPID PANEL BASIC LIPID PANEL BASIC Lab Routine Dyslipidemia Expected: 04/10/2022, Expires: 06/10/2022 [facility] Work Phone: Comment on above: Expected: 04/10/2022, Expires: 2 Start: 02-19-2022 End: 04-21-2022 Basic metabolic 2000 panel - Serum or Plasma BASIC METABOLIC PNL Lab Routine halfway current use of diuretic Expected: 02/19/2022, Expires: 04/21/2022 [facility] Work Phone: Comment on above: Expected: 02/19/2022, Expires: Start: 02-16-2022 COVID-19 VACCINE (4 - Booster for Pfizer series) COVID-19 VACCINE (4 - Booster for Pfizer series) [facility] Start: 02-16-2022 COVID-19 VACCINE (4 - Pfizer series) COVID-19 VACCINE (4 - Pfizer series) [facility] Start: 11-08-2021 DEPRESSION ASSESSMENT DEPRESSION ASSESSMENT [facility] Start: 05-25-2021 PROSTATE CANCER SCREENING DISCUSSION PROSTATE CANCER SCREENING DISCUSSION [facility] Start: 05-25-2021 Prostate specific antigen measurement Prostate Cancer Screening Discussion [facility] Start: 2009 SHINGRIX VACCINE (1 of 2) SHINGRIX VACCINE (1 of 2) [facility] Start: 01-26-2004 COLOGUARD (FIT-DNA) COLOGUARD (FIT-DNA) [facility] Start: 01-26-[address] COLONOGRAPHY [facility] Start: 01-26-2004 FECAL OCCULT BLOOD FECAL OCCULT BLOOD [facility] Start: 01-26-2004 Screening for malignant neoplasm of colon [facility] Start: 01-26-2004 SIGMOIDOSCOPY SIGMOIDOSCOPY [facility] Start: 1977 Anxiety Screening Anxiety Screening [facility] Start: 1977 Depression Screening Depression Screening [facility] Start: 1977 HIV SCREENING HIV SCREENING [facility] Start: 1977 HIV screening HIV Screening [facility] End: 03-02-2025 Ankle-brachial index US ANKLE BRACHIAL INDICES Radiology Routine Venous insufficiency 1 Occurrences starting 02/01/2024 until 03/02/2025 [facility] Work Phone: Comment on above: 1 Occurrences starting 02/01/2024 until 03/02/2025 BLADDER SCAN BLADDER SCAN Pro cedures Routine Benign prostatic hyperplasia with urinary retention Ordered: 05/22/2024 [facility] Work Phone: Comment on above: Ordered: 05/22/2024 End: 05-23-2025 CT Head WO contrast CT BRAIN WO IVCON Radiology Routine SDH (subdural hematoma) (HCC) 1 Occurrences starting 04/23/2024 until 05/23/2025 [facility] Work Phone: Comment on above: 1 Occurrences starting 04/23/2024 until 05/23/2025 End: 06-08-2025 CT Head WO contrast CT BRAIN WO IVCON Radiology Routine Traumatic subdural hematoma with loss of consciousness, sequela (HCC) Intracranial meningioma (HCC) 1 Occurrences starting 05/09/2024 until 06/08/2025 [facility] Work Phone: Comment on above: 1 Occurrences starting 05/09/2024 until 06/08/2025 CT Head WO contrast CT BRAIN WO IVCON Radiology Routine SDH (subdural hematoma) (HCC) [facility] End: 06-22-2025 CT Head WO contrast CT BRAIN WO IVCON Radiology Routine Traumatic subdural hematoma with loss of consciousness, sequela (HCC) Intracranial meningioma (HCC) 1 Occurrences starting 05/23/2024 until 06/22/2025 [facility] Work Phone: Comment on above: 1 Occurrences starting 05/23/2024 until 06/22/2025 CT Head WO contrast CT BRAIN WO IVCON Radiology Routine Traumatic subdural hematoma with loss of consciousness, sequela (HCC) Intracranial meningioma (HCC) 05/23/2024 10:58 AM [facility] Work Phone: CT Head WO contrast CT BRAIN WO IVCON Radiology Routine Traumatic subdural hematoma with loss of consciousness, sequela (HCC) Intracranial meningioma (HCC) 06/20/2024 10:30 AM [facility] Work Phone: End: 11-12-2025 CT Head WO contrast CT BRAIN WO IVCON Radiology Routine Traumatic subdural hematoma with loss of consciousness, sequela (HCC) Intracranial meningioma (HCC) 1 Occurrences starting 10/13/2024 until 11/12/2025 [facility] Work Phone: Comment on above: 1 Occurrences starting 10/13/2024 until 11/12/2025 CT Head WO contrast CT BRAIN WO IVCON Radiology Routine Traumatic subdural hematoma with loss of consciousness, sequela (HCC) Intracranial meningioma (HCC) 10/27/2024 3:00 PM EST [facility] Work Phone: End: 05-04-2025 ECG COMPLETE ECG COMPLETE ECG Routine Atrial flutter, unspecified type (HCC) 1 Occurrences starting 05/04/2024 until 05/04/2025 [facility] Work Phone: Comment on above: 1 Occurrences starting 05/04/2024 until 05/04/2025 End: 05-09-2025 ECG COMPLETE ECG COMPLETE ECG Routine Atrial flutter, unspecified type (HCC) Subdural hematoma (HCC) History of ischemic stroke 1 Occurrences starting 05/09/2024 until 05/09/2025 [facility] Work Phone: Comment on above: 1 Occurrences starting 05/09/2024 until 05/09/2025 End: 01-20-2026 ECG COMPLETE ECG COMPLETE ECG Routine 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 1 Occurrences starting 01/20/2025 until 01/20/2026 [facility] Work Phone: Comment on above: 1 Occurrences starting 01/20/2025 until 01/20/2026 End: 05-08-2026 ECG COMPLETE ECG COMPLETE ECG Routine Atrial flutter, unspecified type (HCC) 1 Occurrences starting 05/08/2025 until 05/08/2026 [facility] Work Phone: Comment on above: 1 Occurrences starting 05/08/2025 until 05/08/2026 End: 05-14-2025 ECG COMPLETE ECG COMPLETE ECG Routine 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 1 Occurrences starting 05/14/2025 until 05/14/2025 [facility] Work Phone: Comment on above: 1 Occurrences starting 05/14/2025 until 05/14/2025 End: 11-26-2025 MR Brain WO and W contrast IV MRI BRAIN WO/W IVCON Radiology Routine Intracranial meningioma (HCC) Benign neoplasm of meninges (HCC) 1 Occurrences starting 10/27/2024 until 11/26/2025 [facility] Work Phone: Comment on above: 1 Occurrences starting 10/27/2024 until 11/26/2025 MR Brain WO and W contrast IV MRI BRAIN WO/W IVCON Radiology Routine Intracranial meningioma (HCC) Benign neoplasm of meninges (HCC) 01/16/2025 10:47 AM EDT [facility] Work Phone: End: 02-17-2026 MR Brain WO and W contrast IV MRI BRAIN WO/W IVCON Radiology Routine Intracranial meningioma (HCC) Traumatic subdural hematoma with loss of consciousness, sequela (HCC) 1 Occurrences starting 01/19/2025 until 02/17/2026 [facility] Work Phone: Comment on above: 1 Occurrences starting 01/19/2025 until 02/17/2026 End: 07-12-2025 MR Brain WO contrast MRI BRAIN WO IVCON Radiology Routine Silent micro-hemorrhage of brain (HCC) 1 Occurrences starting 06/12/2024 until 07/12/2025 [facility] Work Phone: Comment on above: 1 Occurrences starting 06/12/2024 until 07/12/2025 MR Brain WO contrast MRI BRAIN W O IVCON Radiology Routine Silent micro-hemorrhage of brain (HCC) 10/02/2024 8:50 AM EST [facility] Work Phone: End: 11-28-2023 Mri brain brain stem w/o contrast material MRI BRAIN WO IVCON Radiology Routine Parkinsonism, unspecified Parkinsonism type (HCC) 1 Occurrences starting 10/29/2022 until 11/28/2023 [facility] Work Phone: Comment on above: 1 Occurrences starting 10/29/2022 until 11/28/2023 End: 10-29-2023 Polysomnogram POLYSOMNOGRAM (PSG) Procedures Routine Parkinsonism, unspecified Parkinsonism type (HCC) HARJEET (obstructive sleep apnea) 1 Occurrences starting 10/29/2022 until 10/29/2023 [facility] Work Phone: Comment on above: 1 Occurrences starting 10/29/2022 until 10/29/2023 End: 02-17-2026 US Hip - left US HIP LEFT Radiology Routine Soft tissue mass 1 Occurrences starting 01/18/2025 until 02/17/2026 [facility] Work Phone: Comment on above: 1 Occurrences starting 01/18/2025 until 02/17/2026 End: 10-18-2025 US Thyroid gland US THYROID/PARATHYROID Radiology Routine Thyroid nodule 1 Occurrences starting 09/18/2024 until 10/18/2025 [facility] Work Phone: Comment on above: 1 Occurrences starting 09/18/2024 until 10/18/2025 [facility] Immunizations Immunization Date Immunization Notes Care Provider Fa [facility] 08-16-2024 COVID-19 vaccine, ag e 12+ yr ([employer] [facility]) Karthik Mastrucci CONSTRUCTION ESTIMATOR.[facility] Work Phone: [facility] 08-08-2024 influenza, seasonal, injectable, preservative free Karthik Mastrucci CONSTRUCTION ESTIMATOR.RESIDENTIAL REAL ESTATE ASSISTANT Work Phone: [facility] 08-08-2024 influenza virus vaccine, unspecified formulation Sue Grewal MD Work Phone: [facility] [place] 08-01-2024 respiratory syncytia l virus (RSV) vaccine, bivalent (ABRYSVO) Karthik Mastrucci CONSTRUCTION ESTIMATOR.RESIDENTIAL REAL ESTATE ASSISTANT Work Phone: [facility] [place] 02-01-2024 pneumococcal Conjugate, unspecified formulation Karthik Mastrucci CONSTRUCTION ESTIMATOR.RESIDENTIAL REAL ESTATE ASSISTANT Work Phone: [facility] Work Phone: 02-01-2024 pneumococcal conjuga te (PCV20) vaccine, 20 valent (PREVNAR 20) Karthik Mastcarloscci CONSTRUCTION ESTIMATOR.RESIDENTIAL REAL ESTATE ASSISTANT Work Phone: [facility] [place] 09-28-2022 influenza, injectabl e, quadrivalent, preservative free Karthik Mastrucci CONSTRUCTION ESTIMATOR.RESIDENTIAL REAL ESTATE ASSISTANT Work Phone: [facility] [place] Work Phone: 09-28-2022 influenza virus vaccine, unspecified formulation Karthik Mastrucci CONSTRUCTION ESTIMATOR.RESIDENTIAL REAL ESTATE ASSISTANT Work Phone: [facility] [place] 12-22-2021 COVID-19 vaccine, ag e 12+ yr (PFIZER-BIONTECH - MELLO TOP) Paul Lorenz MD Work Phone: [facility] [place] Work Phone: 03-08-2021 COVID-19 vaccine, ag e 12+ yr (PFIZER-BIONTECH - PURPLE TOP) Paul Lorenz MD Work Phone: [facility] [place] 02-15-2021 COVID-19 vaccine, ag e 12+ yr (PFIZER-BIONTECH - PURPLE TOP) Paul Lorenz MD Work Phone: [facility] [place] 07-02-2020 tetanus toxoid, reduced diphtheria toxoid, and acellular pertussis vaccine, adsorbed Paul Lorenz MD Work Phone: [facility] [place] Payers Date Payer Category Payer Medicaid [id number] 2024 Medicare [id number] 2024 Unknown [facility] MEDICARE ADVANTAGE O [id number] 2024-Present [phone] [address] [place] [address] [facility] [id number] 2024 Medicare [id number] 2024 Medicare (Managed Care) 1.2. [id number] 2024 Self-pay 2024 Medicare [id number] 2024 Medicare [id number] 2019 Medicaid [employer] [facility] [place] [id number] 2019-Present [phone] [address] [address] [place] [address] Medicaid [id number] 2019 Medicaid [id number] 2019 Medicaid [id number] Unknown [id number] 462 Unknown [id number] 462 Unknown [id number] 462 Unknown [id number] 462 Unknown [id number] 462 Unknown [id number] 462 Unknown [id number] 462 Unknown [id number] 462 Unknown [id number] 462 Unknown [id number] 462 Unknown [id number] 462 Social History Date Type Detail Facility Start: 05-25-2016 End: 10-21-2022 Tobacco smoking status NHIS Never smoked tobacco [facility] [place] Start: 05-25-2016 End: 10-21-2022 Tobacco use and exposure Smokeless tobacco non-user [facility] [place] Start: 02-19-2022 End: 04-10-2022 Alcohol intake Current drinker of alcohol (finding) [facility] Start: 12-16-2017 History SDOH Alcohol Comment occ. Maybe one drink per week. [facility] [place] Start: 1960 Sex Assigned At Male C [facility] Start: 02-09-2022 End: 09-02-2022 Exposure to SARS-CoV-2 (event) Not sure [facility] [place] Start: 10-30-2022 End: 02-22-2025 Alcohol intake Ex-drinker (finding) [facility] [place] Start: 10-30-2022 History SDOH Financial 5 [facility] [place] Start: 10-30-2022 History SDOH Food Worry 1 [facility] [place] Start: 10-30-2022 History SDOH Transpo rt Med 2 [facility] [place] Start: 03-02-2023 End: 02-01-2024 History of Social function [facility] [place] Work Phone: Start: 03-02-2023 End: 02-01-2024 Tobacco use panel [facility] [place] Work Phone: How hard is it for y ou to pay for the very basics like food, housing, medical care, and heating Not hard at all [facility] [place] Work Phone: (I/We) worried vito er (my/our) food would run out before (I/we) got money to buy more. Never true [facility] [place] Work Phone: In the past 12 month s, was there a time when you were not able to pay the mortgage or rent on time? No [facility] [place] Work Phone: Start: 01-29-2021 Gender identity Identifies as male gender (finding) [facility] [place] Start: 01-29-2021 Sexual orientation Homosexual (findi ng) [facility] [place] Tobacco smoking stat us NHIS Unknown if ever smoked [facility] Work Phone: Start: 02-06-2025 End: 02-23-2025 Sex Male (finding) [facility] Medical Equipment Procedure Code Equipment Code Equipment Origin al Text Equipment Identifier Dates Screw Lcp 3.5mm Full Thread Stainless Steel 14mm Bone Stardrive Recess Self - [id number] Start: 09-14-2019 Screw Lcp 3.5mm Full Thread Stainless Steel 16mm Bone Stardrive Recess Self - [id number] Start: 09-14-2019 Screw Lc-Dcp Dcp 3.5mm 6mm Full Thread Stainless Steel 16mm Bone Self - [id number] Start: 09-14-2019 Scrw Ond Mandib Ul Lp Df 1.5x4 [id number] Start: 04-16-2024 L1 Neuro [facility] Cov Ultraone Contour W/Tab Scrw 6 Hl 18mm D T0.35mm Ti - [id number] Start: 04-16-2024 Goals Date Patient Goal Desired Activity /State Personal health goal Functional Status Date Assessment Result Facility 09-28-2024 Are you deaf, or do you have serious difficulty hearing No 09/28/2024 12:32 PM Ailyn Darby RN No [facility] [place] 09-28-2024 Are you blind, or do you have serious difficulty seeing, even when wearing glasses Yes 09/28/2024 12:32 PM Ailyn Darby RN Yes [facility] [place] 09-28-2024 Do you have serious difficulty walking or climbing stairs Yes 09/28/2024 12:32 PM Ailyn Darby, ARNOLD Yes [facility] [place] 09-28-2024 Because of a physica l, mental, or emotional condition, do you have difficulty doing errands alone such as visiting a physician's office or shopping Yes 09/28/2024 12:32 PM Ailyn Darby RN Yes [facility] [place] 06-07-2024 Do you have difficul ty dressing or bathing Yes 06/07/2024 1:58 PM Malaika Clark RN Yes [facility] [place] Mental Status Date Assessment Result Facility 09-28-2024 Because of a physica l, mental, or emotional condition, do you have serious difficulty concentrating, remembering, or making decisions Yes 09/28/2024 12:32 PM Ailyn Darby RN Yes [facility] [place] Clinical Notes 09-13-2019 to 05-08-2025 Femi Argueta RN - 05/08/2025 11:27 AM EDTTelephone Encounter - Umberto Esquivela - 05/08/2025 10:53 AM EDTTelephone Encounter - Umberto Esquivela - 05/08/2025 10:53 AM EDTPatient Instructions Note Date & Type Note Facility 05-08-2025 Note HNO ID: [id number] Author: FEMI ARGUETA RN Service: ? Author Type: Registered Nurse Type: Progress Notes Filed: 05/08/2025 11:27 Note Text: EKG [facility] 05-08-2025 History of Present illness Narrative EKG documented in this encounter [facility] [place] 05-08-2025 Telephone encounter Note Spoke to the patient stating they are wanting a [facility] from [facility] to [facility]. Scheduled appt for EP confirmed date, time and location. Keyana Esquivel [facility] [place] 05-08-2025 Miscellaneous Notes Spoke to the patient stating they are wanting a DEBBI from [facility] to [facility]. Scheduled appt for EP confirmed date, time and location. Keyana Esquivel documented in this encounter [facility] [place] 03-14-2025 Note [facility] 03-14-2025 History of Present illness Narrative Spoke with social work at [facility], patient is now a permanent resident under the care of facility physician, Dr. Violette Abdi MD. Dr. Violette Abdi MD will manage all patient care hereafter (including refilling prescriptions). [facility] chart updated to reflect PCP change. Madina Amador RN documented in this encounter [facility] [place] 02-22-2025 Instructions Anya Huang APRN.CHAN - 02/22/2025 1:38 PM EDT Images from the original note were not included. Regarding your visit with Nurse Practitioner Anya Huang today at the [facility] [place] [facility] we discussed the following: Impression: Bilateral cortical ischemic infarcts ~04/17/24. Etiology cardioembolic from atrial flutter Spastic left hemiparesis as late effect of CVA - no bothersome pain Aphasia as late effect of CVA - almost back to baseline, no appreciable aphasia during visit Trauamtic SDH and SAH from ground level fall 04/14/24 Silent cerebral microhemorrhages - cortical and subcortical, consider possible cerebral amyloid angiopathy Remote lacunar infarcts, likely small vessel etiology Atrial flutter Hypertension Dyslipidemia - LDL 59 Acute PE and DVT September 2024 Recommendations: Follow up with Cardiology as scheduled for May Continue eliquis 5mg twice daily per Hematology Would not recommend lifelong anticoagulation for patient, if possible due to his cerebral microhemorrhages. For his atrial fibrillation/flutter, recommend consideration of left atrial appendage closure rather than lifelong anticoagulation. Can consider muscle relaxant for spasticity if tylenol no longer helpful Continue atorvastatin for secondary stroke prevention and LDL goal below 70. Continue monitoring blood pressure for goal below 130/80. Follow up in 4 months -Regular follow up with primary care doctor for health maintenance -Assist ensuring blood pressure and cholesterol are at goal -Screen and manage diabetes -Lifestyle modification -- Establish goals -Diet -Regular Exercise as discussed -Establish weight goals with primary care doctor -Additional stroke reduction measures and stroke warning signs are listed below. Please do not hesitate to call if you have any questions Anya Huang CNP [facility] [place] Nurse Practitioner [place], [place] [address] Office: [phone] Appointments: [phone] Stroke Signs and Symptoms: *Stroke is a medical emergency. Know the warning signs of stroke: Sudden numbness or weakness of the face, arm or leg, especially on one side of the body Sudden confusion, trouble speaking, or understanding Sudden trouble seeing in one eye, or both eyes Sudden trouble walking, dizziness, loss of balance, or coordination Sudden severe headache with no known cause *If you, or someone with you, has one or more of these signs, don't delay! Immediately call 911, or the emergency medical services (EMS) number so an ambulance can be sent for you. Also, check the time so that you will know when the symptoms first appeared. It is very important to take immediate action, every second counts. Medical treatment may be available if action is taken early enough. ~~~~~~~~~~~~~~~~~~~~~~~~~~~~~~~~~~ ~~~~~~~~~~~~~~~~~~~~~~~~~~~~~~~~~~ ~~~~ General Guidelines to Help Reduce Risk of Recurrent Stroke Blood Pressure Management: Blood Pressure reduction is recommended for both prevention of recurrent stroke and prevention of other vascular events in persons who have had an ischemic stroke or TIA and are beyond the first 24 hours. Several lifestyle modifications have been associated with BP reduction and are a reasonable part of a comprehensive antihypertensive therapy. These modifications include: - salt restriction (less than 2 grams per day) - weight loss - consumption of a diet rich in fruits, vegetables, and low-fat dairy products - regular aerobic physical activity - limited alcohol consumption Goal: Prehypertension (BP less than 130/80 mm Hg): - Perform annual BP screening and lifestyle modifications Hypertension: (BP greater than or equal to 130/80 mm Hg) - Combine medications with above lifestyle modifications to reach your goal blood pressure as defined above. - Monitor your blood pressure at home regularly to ensure you are reaching your goals Diabetes Mellitus: - the goal for glycemic control should be individualized based on the risk for adverse events, patient characteristics and preferences, and, for most patients with diabetes, achieving a goal of HbA1c <=7% is recommended to reduce risk for microvascular complications. - treatment of diabetes should include glucose-lowering medications with proven cardiovascular benefit to reduce the risk for future major adverse cardiovascular events (eg, stroke, heart attack) Cholesterol and Lipid Management - Statin (rosuvastatin or atorvastatin) therapy with intensive lipid-lowering effects is recommended to reduce risk of stroke and cardiovascular events among patients with ischemic stroke or TIA who have LDL cholesterol > 100 mg/dL, or evidence of atherosclerosis. - A goal of LDL cholesterol < 70 mg/dL for stroke or TIA patients on lipid lowering therapy is recommended. - Ezetimibe in combination with statin therapy to lower the LDL cholesterol < 70 mg/DL is recommended, if statin therapy alone is insufficient to attain this treatment target. - For patients with ischemic stroke at very high risk, already taking maximally tolerated statin and ezetimibe and still have an LDL cholesterol > 70 mg/dL, it is reasonable to treat with a proprotein convertase subtilisin/kexin type 9 (PCSK9) inhibitor to prevent atherosclerotic cardiovascular or cerebrovascular events. - In patients with ischemic stroke or TIA, with fasting triglycerides 135 to 499 mg/dL and LDL cholesterol of 41 to 100 mg/dL, on moderate- or high-intensity statin therapy, with HbA1c <10%, and with no history of pancreatitis, atrial fibrillation, or severe heart failure, treatment with icosapent ethyl (IPE) 2 g twice a day is reasonable to reduce risk of recurrent stroke Diet: - Reduced sodium and increased potassium intake; DASH-style diet rich in fruits and vegetables (https://www.nhlbi.nih.gov/educati on/vdog-heoewy-rlyh) - Consider Mediterranean diet supplemented with nuts Smoking and Tobacco Use: - Strongly recommend smoking and tobacco use cessation to reduce risk of stroke. - Counseling, nicotine products, and oral smoking cessation medications are effective for helping smokers quit and can be provided if needed. Alcohol Consumption: - Patients with ischemic stroke or TIA who drink greater than or equal to 2 alcoholic drinks a day, should eliminate alcohol use or reduce their consumption of alcohol to less than equal to 1 alcohol drink per day to reduce stroke risk Exercise - In patients with stroke or TIA who are capable of physical activity, engaging in at least moderate-intensity aerobic activity for a minimum of 10 minutes 4 times a week or vigorous-intensity aerobic activity for a minimum of 20 minutes twice a week is indicated to lower the risk of recurrent stroke - In patients with deficits after stroke that impair their ability to exercise, supervision of an exercise program by a health account executive healthcare such as a physical therapist or cardiac rehabilitation professional, in addition to routine rehabilitation, can be beneficial for secondary stroke prevention - In individuals with stroke or TIA who sit for long periods of uninterrupted time during the day, it may be reasonable to recommend breaking up sedentary time with intervals as short as 3 minutes of standing or light exercise every 30 minutes for their cardiovascular health Adapted from the [place] [employer] Association/[place] Stroke Association: 202 Guideline for the Prevention of Stroke in Patients With Stroke and Transient Ischemic Attack documented in this encounter [facility] [place] 02-22-2025 History of Present illness Narrative [facility] Established Visit Consultation is requested by: No referring provider defined for this encounter. PCP: [place] [address] CEREBROVASCULAR HISTORY Alfonzo Simon is a 64 year old left-handed male presenting for hospital discharge follow up. Admitted to [facility] 04/15-04/25/24. From discharge summary Mr. Alfonzo Simon was directly admitted to [facility] on 04/15/2024 for treatment of injuries sustained during a reported ground level fall that occurred on 04/14/2024. CT imaging revealed the following acute traumatic injuries: 1. Right subdural hematoma measuring up to 13 mm with 5 mm leftward midline shift 2. Right frontal subarachnoid hemorrhage 3. Left lower flank/buttock subcutaneous lobulated hematoma measuring up to 15 cm. Mr. Simon was admitted to the ICU. Neurosurgery was consulted. He would undergo right craniotomy evacuation of his subdural hematoma and excision of an incidentally noted brain tumor suspected to be a meningioma on 04/16/[address] Ko. On the day of his surgery, he was noted to exhibit left upper extremity and aphasia. Neurology was consulted and he was treated for acute ischemic stroke as MRI imaging revealed bilateral cortical infarcts possibly related to subdural hemorrhage with mass effect but concerning for central embolic phenomenon. He also received a tapering course of Decadron and his neurological status improved. It was recommended that he be discharged with an event monitor and daily aspirin. Once determined appropriate from a neurosurgery standpoint, he was started on a daily aspirin 81 mg for stroke prevention (initiated 04/22/2024). He completed a 7-day course of Keppra for seizure prevention. Hypertension was treated with his home Lisinopril 40 mg daily and Norvasc which was increased to 10 mg daily along with as needed hydralazine. Per neurosurgery recommendations, he would require outpatient follow-up with his treating neurosurgery (Dr. Ko) two weeks post-operatively for re-evaluation and craniotomy suture removal (05/02/2024). He would also require follow-up with stroke neurology (05/30/2024). His left flank hematoma was treated expectantly and hemoglobin remained stable. Mr. Simon's admission was complicated by hermosillo catheter placement that created a false passage. For that, urology was consulted and, per there recommendations, his hermosillo catheter remained in place for just over 1 week. A voiding trial was ordered on 04/24/2024 which he passed and was able to urinate on his own following catheter removal. It was recommended that he follow-up with urology as an outpatient following hospital discharge. Mr. Simon was evaluated by speech therapy for both diet recommendations and cognitive evaluation. He was cleared for a soft and bite-sized diet with thin liquids. His cognition gradually improved throughout his admission. He was evaluated by physical and occupational therapy who recommended inpatient rehab at discharge. Mr. Simon would be discharged to [facility] rehab in stable condition on 04/25/2024. He would require outpatient follow-up care with his treating neurosurgeon, stroke neurology and urology as well as his primary care provider. Reason for Visit: subdural hematoma, subarachnoid hemorrhage and ischemic stroke Date of Last Event: 04/15/2024 Antiplatelets/Anticoagulants: Apixaban Statins: Atorvastatin Residual Deficits: Motor weakness Current PT/OT/ST: Physical therapy at home, Occupational therapy at home and Speech therapy at home Current Living Situation: Still in a rehab facility Current use of a mobility aid for walking/getting around: Walker Office Visit 05/30/24 -presents for hospital discharge follow up -denies any new symptoms or clinical events -living at [facility] -prior to this lived at home with -PT, OT, speech -LUE weakness, aphasia getting better -ambulates with walker and assistance -in atrial flutter on outpatient event monitor -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 Takes tylenol of sore after therapy which helps -speech is essentially back to normal -ambulates with walker now mostly independently, needs additional assitance getting up sometimes -in September admitted with bilateral PE and lower extremity DVT. Started on eliquis, benefit outweight risk has prior ICH was traumatic rather than spontaneous, and microbleeds are mixed cortical and subcortical -follow up MRI in September with concern for possible infection at site of surgical site; otherwise no interval change or new hemorrhage -MRI was performed after being on eliquis for several days -saw NSGY regarding the above, likely not infection, rec [address] scan which is scheduled for tomorrow -lipitor 20mg -BP 135/72 Office Visit 02/22/25 -presents for follow up -denies any new symptoms or clinical events -at [facility] -left side getting a bit stronger, cannot really lift above shoulder level -pain is minimal and controlled with tylenol -referred to EP for watchman - scheduled for May -hematology - recommend minimum of 6 months AC, then will re-evaluate; had DVT and PE September 2024 -hypercoag panel negative -eliquis 5mg BID for atrial flutter -lipitor 20mg -BP 150/70 PAST MEDICAL HISTORY Diagnosis Date Atrial fibrillation (HCC) Benign prostatic hyperplasia with lower urinary tract symptoms 05/25/2016 Bilateral lower extremity edema 05/25/2016 Bladder mass Bradycardia 05/25/2016 Colon polyp 11/08/2008 benign Essential hypertension 05/25/2016 Obesity, morbid, BMI 40.0-49.9 (HCC) Parkinsonism (HCC) Sleep apnea no machine Subdural hematoma (HCC) Systolic murmur 05/25/2016 Vitamin D deficiency 05/25/2016 PAST SURGICAL HISTORY Procedure Laterality Date COLONOSCOPY GEN ANES 10/22/2020 Dr. Iqbal x3 last one in 2019 CYSTOSCOPY 03/2021 Bladder tumor OTHER SURGICAL HISTORY (PLEASE SPECIFY) HX 2017 Prostate surgery TURP FAMILY HISTORY Problem Relation Age of Onset Diabetes Father from complications from DM. Social History Tobacco Use Smoking status: Never Smokeless tobacco: Never Vaping Use Vaping status: Never Used Substance Use Topics Alcohol use: Not Currently Comment: occ. Maybe one drink per week. Drug use: No MEDICATIONS Current Outpatient Medications Medication Sig magnesium hydroxide 2,400 mg/10 mL susp Take 10 mL by mouth once daily as needed. polyethylene glycol 3350 4 gram pwpk Take by mouth. magnesium, aluminum hydroxide (ALUMINUM-MAGNESIUM HYDROXIDE ORAL) Take by mouth. hydrALAZINE (APRESOLINE) 10 mg tablet senna (SENOKOT) 8.6 mg tab Take 8.6 mg by mouth two times a day. ELIQUIS 5 mg tab(s) buPROPion XL (WELLBUTRIN XL) 300 mg 24 hr tablet Take 1 tablet by mouth once daily. Bisacodyl (DULCOLAX) 5 mg tab Take 5 mg by mouth as needed for constipation. miconazole 2 % powder Apply 1 application to affected area two times a day. tamsulosin (FLOMAX) 0.4 mg TAKE 1 CAPSULE AT BEDTIME acetaminophen (TYLENOL) 500 mg tablet Take 2 tablets by mouth every 8 hours as needed for pain. amLODIPine (NORVASC) 5 mg tablet Take 2 tablets by mouth once daily. lisinopril (ZESTRIL) 40 mg tablet Take 1 tablet by mouth once daily. atorvastatin (LIPITOR) 20 mg tablet Take 1 tablet by mouth once daily. iv contrast (will be provided with radiology test) MRI Brain Inject, intravenously, once for 1 dose.No IV access, insert saline lock prior to beginning of sedation, infusion, injection of imaging exam.Discontinue saline lock post exam. If Pt. has a central line or IVAD, may access for administration according to line specific nursing protocol.Once exam is complete flush line and de-access according to line specific nursing protocol in the MR contrast administration guidelines link escitalopram oxalate (LEXAPRO) 10 mg tablet Take 1 tablet by mouth once daily. hydralazine HCl (HYDRALAZINE ORAL) Take 40 mg by mouth every 8 hours. senna-docusate (SENNA-S) 8.6-50 mg per tablet Take 1 tablet by mouth two times a day. No current facility-administered medications for this visit. ALLERGIES ALLERGIES No Known Allergies PHYSICAL EXAMINATION BP 150/70 Pulse 63 Ht 182.9 cm (6') Wt 130.6 kg (288 lb) BMI 39.06 kg/m General: Well-developed, well-nourished, in no acute distress. HEENT: Normocephalic, atraumatic. Sclerae anicteric. Oropharynx clear. Neck: No JVD Heart: Skin well-perfused. Lungs: Breathing comfortably on room air. Extremities: No edema, cyanosis, or clubbing. Skin: No rash or ecchymoses. Neurological: Awake, alert, oriented to person, place, and time. Speech fluent, no dysarthria. Recall, comprehension intact. Good attention and insight into illness. Cranial Nerves: Extraocular movements intact without nystagmus. Visual thayer full. Facia movements normal and symmetric. Motor: mildly increased tone LUE. Slight drift LUE Sensation: Intact light touch Coordination: [id number] without dysmetria on right Gait: deferred LABS Cholesterol: Cholesterol, Total (mg/dL) Date Value 04/18/2024 132 12/17/2017 251 Total Cholesterol, Nonfasting (mg/dL) Date Value 04/18/2024 137 LDL Cholesterol (mg/dL) Date Value 04/18/2024 57 LDL Cholesterol, Nonfasting (mg/dL) Date Value 04/18/2024 59 LDL Calculated (mg/dL) Date Value 12/17/2017 145 HDL Cholesterol (mg/dL) Date Value 04/18/2024 54 12/17/2017 47 HDL Cholesterol, Nonfasting (mg/dL) Date Value 04/18/2024 56 Triglyceride (mg/dL) Date Value 04/18/2024 105 12/17/2017 295 Triglycerides, Nonfasting (mg/dL) Date Value 04/18/2024 109 Diabetes: Hemoglobin A1C (%) Date Value 04/18/2024 5.6 12/17/2017 5.8 IMAGING MRI brain 10/02/24 IMPRESSION: Interval development of sizable fluid collection within right-sided scalp along right frontotemporal lobe measuring 70 x 27 x 16 mm. There appears to be possible continuity to the adjacent extra-axial space, as detailed above. Leading differential consideration includes pseudomeningocele. Superimposed infection would not be excluded. Clinical correlation and neurosurgical follow-up is recommended. No evidence of acute infarct, acute lobar hemorrhage, or significant mass effect. Scattered punctate microhemorrhages within supratentorial and infratentorial brain appears unchanged since 04/18/2024. This is most likely chronic microhemorrhages. Chronic small vessel ischemic white matter disease and diffuse cerebral volume loss. Chronic lacunar infarcts within bilateral basal ganglia. Additional chronic findings, as detailed above. CT brain 04/15/24 IMPRESSION: Brain- 1. There is an acute right-sided subdural hematoma measuring up to 13 mm in thickness, overlying the frontal and temporal lobes. Associated underlying mass effect and 5 mm leftward midline shift. 2. Acute subarachnoid blood within a few right frontal cortical sulci. 3. Atrophy and chronic ischemic changes. MRI brain, MRA brain and carotids 04/18/24 IMPRESSION: 1. Small acute infarcts in the RIGHT precentral, postcentral gyrus, RIGHT frontal operculum and LEFT temporal lobe, probably embolic in etiology. 2. No corresponding hemorrhage or hemorrhagic transformation. 3. Status post RIGHT subdural hematoma evacuation with small volume residual subdural hemorrhage along the RIGHT occipital convexity and small volume subarachnoid hemorrhage along the RIGHT frontal convexity redemonstrated unchanged. Small volume LEFT posterior parietal, temporal and occipital convexity subdural hemorrhage unchanged. 4. Small bilateral basal ganglial and pontine chronic lacunar infarcts. 5. 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 Recommend attention on follow-up imaging. 6. Multifocal subcortical chronic microhemorrhage is in the supratentorial brain, nonspecific but can be seen with amyloid angiopathy. 7. Within the limitation of motion, no definite large vessel occlusion or hemodynamically significant stenosis of major arteries of head and neck. Echo 04/17/24 CONCLUSIONS: - Technically difficult exam due to suboptimal positioning. - Exam indication: Abnormal ECG - The left ventricle is normal in size. There is moderate upper septal left ventricular hypertrophy. Left ventricular systolic function is normal. EF = 61 5% (2D biplane) Definity contrast used for endocardial border detection. Normal left ventricular diastolic function. - The right ventricle is normal in size. Right ventricular systolic function is normal. - The visualized aorta is dilated with a maximal dimension of 4.3 cm. - There are no significant valvular abnormalities. - Exam was compared with the prior CC echocardiographic exam performed on 09/03/2022. No significant change noted when compared to report of prior study. Patient Entered Questionnaires PROMIS/NeuroQoL Score Percentiles 01/20/2021 Physical Health Physical Function Percentile 10 Fatigue Percentile 5 01/20/2021 PROMIS SOCIAL ROLE SCORE Social Role Satisfaction Percentile 16* 10/05/2022 01/20/2021 PROMIS Global Health Scale Physical Health Percentile 15 15 Mental Health Percentile 19* 26* Percentiles provide an indication of how a patient's score ranks in relation to the [place] general population. > 31st percentile is within normal limits or better * < 31st percentile is at least SD worse than population, which may be clinically relevant < 16th percentile is at least 1 SD worse than population and warrants attention Depression Screenin02/01/2024 10/29/2022 10/01/2022 PHQ-9 Score 0 0 0 Self-Harm Response Not at all Not at all PHQ-9 Scores: PHQ-9 Self-Harm (Item 9) Response: 0 - 9 No to Mild depression 0 - Not at all 10 - 14 Moderate depression 1 - Several Days > 15 Severe depression 2 - More than half the days 3 - Nearly every day Stroke Mechanism and Scales Ischemic or TIA: Ischemic Stroke TOAST Mechanism (CCF-MODIFIED): Cardioembolism Cardioembolism: Atrial fibrillation/flutter Intracranial Hemorrhage: Subarachnoid and Subdural Hematoma Subarachnoid Hemorrhage: Trauma Modified Delfino Score: Score: 3 NIH Stroke Scale: LOC: 0 LOC Questions: 0 LOC Commands: 0 LOC Normal Gaze: 0 Visual Thayer: 0 Facial Palsy: 0 Motor Left Arm: 1 Motor Right Arm: 0 Motor Left Le Motor Right Le Limb Ataxia: 0 Sensory: 0 Language: 0 Dysarthria: 0 Extinction/Neglect: 0 Total Daily NIHSS: 1 Cerebrovascular Disease w/o Stroke Event: Cerebral Microbleeds IMPRESSION Bilateral cortical ischemic infarcts ~04/17/24. 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 For his atrial fibrillation/flutter, recommend consideration of left atrial appendage closure rather than lifelong anticoagulation. Scheduled to see Cardiology in May Can consider muscle relaxant for spasticity if tylenol no longer helpful Continue atorvastatin for secondary stroke prevention and LDL goal below 70. Continue monitoring blood pressure for goal below 130/80. Follow up in 4 months Medical Decision Making: Medical Decision Making Level: 1 - N/A I spent a total of 35 minutes on the date of service which included preparing to see the patient, [id number] patient care, completing clinical documentation, obtaining and/or reviewing separately obtained history, performing a medically appropriate examination, counseling and educating the patient/family/caregiver, independently interpreting results (not separately reported), communicating results to the patient/family/caregiver, and care coordination (not separately reported) SIGNATURE Anya Huang APRN.RESIDENTIAL REAL ESTATE ASSISTANT [facility] No referring provider defined for this encounter. Karthik Holliday [address] [place] [address] documented in this encounter [facility] 02-22-2025 Note Radha العراقي [facility] 01-19-2025 History of Present illness Narrative NEUROSURGERY FOLLOW UP OFFICE NOTE Dr. Leonard Ko MD, FACS Date of visit: January 19, 2025 Patient Name: Mr.Kevin Myrna Simon Date of : 1960 Current Age: [age] year old Sex: male MRN/E# [id number] Last Office Visit: 10/27/2024 CHIEF COMPLAINT: Patient presents with: Established Patient SUBJECTIVE: The patient presents as a follow-up with imaging (MRI B) for evaluation. This is a 64 year old male with a PMHx of BPH, HTN, morbid obesity, parkinsonism and sleep apnea who was seen for consult at [facility] on 04/16/24 after transfer from [facility] for a SAH. Per patients , the patient had fallen the evening before and was unable to get up. EMS assisted with lift and patient went to bed at home. The following day he was noted to be confused with difficulty word finding/expressive aphasia. Imaging demonstrated a right frontotemporal SDH with MLS and right frontal cortical sulci SAH. He denied use of blood thinning medications. He was started on Keppra 1g BID and monitored in the ICU with frequent neuro checks. He was taken to the OR in the morning for evacuation of the bleed as noted above. Intra-op there was note of a tumor suspected to be a meningioma and this was resected as well. His post op course was complicated by acute ischemic stroke with bilateral cortical infarcts, bradycardia, HTN. He was evaluated by stroke and cleared to begin low dose ASA 04/22/24. Once medically stable he was cleared for discharge to rehab. Recommendation was to follow up for post op visit and suture removal. He was seen on 05/09/24 and reported that he was doing well. He denied denies headache, visual changes, speech deficits, seizure activity, motor or sensory deficits. Neurologically he continued to have mild expressive deficits and left sided weakness. Incision was well healed, sutures were removed at rehab. There was not note of infection. Pathology was discussed. Since then he has been seen routinely for evaluation with imaging and has overall done well. He was last seen in the office on 10/27/2024 with CTB for evaluation of a fluctuant subgaleal fluid collection in the right temporal region at the craniotomy site. He presented via wheelchair as he was still residing at [facility] in [place]. He reported that he was doing well . He denied any headache, visual changes, speech deficits, seizure activity, new motor or sensory deficits. CT was reviewed and showed almost complete resolution of the fluid with a very small area of residual. It was discussed that if Eliquis was needed for his cardiac condition that he may resume it under the instruction of his graphics intern. Otherwise he should return in January 2025 with an MRI be for evaluation of any residual or recurrent tumor. Today he states he is overall doing better. He continues to reside in a Group Home, [facility] in [place]. He continues to work with PT. He has resumed Eliquis and is tolerating it well. He presents for image review, evaluation and plan of care. SYMPTOMS: Gait instability, mild left arm weakness PREVIOUS CONSERVATIVE TREATMENTS: longterm facility PT/OT SURGICAL RISK: Smoker: Never Diabetic: No Anticoagulants / Antiplatelets: Eliquis 5 mg Occupation: NA PREVIOUS NEUROSURGERY: SURGERY #1: Right frontal craniotomy for evacuation of SDH and excision of tumor on 04/16/[address] Ko. FINAL DIAGNOSIS A. Brain tumor, excision: - Meningioma, meningothelial type (grade 1). See comment. PRE-SURGICAL SYMPTOMS: Confusion, difficulty word finding PAIN EVALUATION No data found in the last 1 encounters. PAST MEDICAL HISTORY Diagnosis Date Atrial fibrillation (HCC) Benign prostatic hyperplasia with lower urinary tract symptoms 05/25/2016 Bilateral lower extremity edema 05/25/2016 Bladder mass Bradycardia 05/25/2016 Colon polyp 11/08/2008 benign Essential hypertension 05/25/2016 Obesity, morbid, BMI 40.0-49.9 (HCC) Parkinsonism (HCC) Sleep apnea no machine Subdural hematoma (HCC) Systolic murmur 05/25/2016 Vitamin D deficiency 05/25/2016 PAST SURGICAL HISTORY Procedure Laterality Date COLONOSCOPY GEN ANES 10/22/2020 Dr. Iqbal x3 last one in 2019 CYSTOSCOPY 03/2021 Bladder tumor OTHER SURGICAL HISTORY (PLEASE SPECIFY) HX 2017 Prostate surgery TURP FAMILY HISTORY Problem Relation Age of Onset Diabetes Father from complications from DM. ALLERGIES No Known Allergies Current Outpatient Medications Medication Sig Dispense Refill hydrALAZINE (APRESOLINE) 10 mg tablet senna (SENOKOT) 8.6 mg tab Take 8.6 mg by mouth two times a day. ELIQUIS 5 mg tab(s) buPROPion XL (WELLBUTRIN XL) 300 mg 24 hr tablet Take 1 tablet by mouth once daily. 90 tablet 0 escitalopram oxalate (LEXAPRO) 10 mg tablet Take 1 tablet by mouth once daily. 90 tablet 0 Bisacodyl (DULCOLAX) 5 mg tab Take 5 mg by mouth as needed for constipation. miconazole 2 % powder Apply 1 application to affected area two times a day. tamsulosin (FLOMAX) 0.4 mg TAKE 1 CAPSULE AT BEDTIME 90 capsule 3 acetaminophen (TYLENOL) 500 mg tablet Take 2 tablets by mouth every 8 hours as needed for pain. hydralazine HCl (HYDRALAZINE ORAL) Take 40 mg by mouth every 8 hours. amLODIPine (NORVASC) 5 mg tablet Take 2 tablets by mouth once daily. senna-docusate (SENNA-S) 8.6-50 mg per tablet Take 1 tablet by mouth two times a day. lisinopril (ZESTRIL) 40 mg tablet Take 1 tablet by mouth once daily. 90 tablet 1 atorvastatin (LIPITOR) 20 mg tablet Take 1 tablet by mouth once daily. 90 tablet 1 iv contrast (will be provided with radiology test) MRI Brain Inject, intravenously, once for 1 dose.No IV access, insert saline lock prior to beginning of sedation, infusion, injection of imaging exam.Discontinue saline lock post exam. If Pt. has a central line or IVAD, may access for administration according to line specific nursing protocol.Once exam is complete flush line and de-access according to line specific nursing protocol in the MR contrast administration guidelines link 1 Each 0 No current facility-administered medications for this visit. REVIEW OF SYSTEMS: Review of Systems Constitutional: Negative for chills, diaphoresis (Negative for night sweats.) and fever. HENT: Negative for ear discharge and rhinorrhea. Eyes: Negative for discharge. Respiratory: Negative for cough, shortness of breath and wheezing. Cardiovascular: Negative for chest pain, palpitations and leg swelling. Gastrointestinal: Negative for constipation, diarrhea, nausea and vomiting. Endocrine: Negative for cold intolerance and heat intolerance. Genitourinary: Negative for frequency. Negative for urinary incontinence and urinary retention. Musculoskeletal: Positive for gait problem. Negative for back pain, joint swelling, myalgias and neck pain. Skin: Negative for rash (Negative for hives and skin lesions.). Allergic/Immunologic: Negative for environmental allergies and food allergies. Negative for contact allergy, seasonal allergies. Neurological: Negative for dizziness, seizures, syncope, weakness, light-headedness, numbness (Negative for numbness in extremities.) and headaches. Hematological: Does not bruise/bleed easily. Psychiatric/Behavioral: The patient is not nervous/anxious. Negative for depression. OBJECTIVE: BP 144/82 Pulse 62 Ht 6' 0" (1.83m) Wt 288 lb (130.6kg) SpO2 97% BMI 39.05 kg/(m^2). PHYSICAL EXAM: Mental State : Alert. Attention span and concentration normal for patient's age. Speech normal, fluent. No receptive or expressive speech deficit. Recent and remote memory normal. Orientation : Oriented to person, place and time. Higher Cortical Function : Intact speech and language. Comprehension normal. Fund of knowledge intact or pt level of education. Cranial Nerves : II: No visual field cut, no blurring. Makes and sustains eye contact. III, IV, : No double vision or lid drooping. Pupils equal and reactive to light. Extraocular muscles intact. No nystagmus. V: Normal sensation on the face, normal jaw movements. VII: No paresis on either side. VIII: No gross hearing deficit IX: Good and equal shoulder shrugs. XII: Tongue midline, no fasciculations. Sensory: SILT. Normal Sensation in bilateral upper and bilateral lower extremities to touch and noxious stimuli. Motor: Normal muscle tone and bulk. No spasticity, tremor or uncontrollable movements. Strength: Upper Extremities : R L Deltoid 5/5 4.5/5 Biceps 5/5 4.5/5 Triceps 5/5 4.5/5 Wrist Ext 5/5 4.5/5 Wrist Flx 5/5 5/5 Hand Int 5/5 5/5 Lower Extremities : Hip Flexors 5/5 5/5 Hip Extensors 5/5 5/5 Hip Abductors 5/5 5/5 Straight leg Neg Neg Ankle dorsiflex 5/5 5/5 Ankle Plantar 5/5 5/5 Cerebellar Function : Normal finger to nose. Normal rapid alternating movements. No ataxia. Negative Romberg. Gait and Station: Compensated gait. Wheelchair but can walk with assistive device. IMAGING: MRI Brain WO/W IVCON performed on 01/16/25 demonstrates: IMPRESSION: 1. No evidence of recurrent meningioma. 2. Postsurgical changes with minimal dural enhancement. Residual 6 mm thick fluid collection overlying the craniotomy flap is significantly improved compared with the previous studies. 3. Extensive microvascular ischemic changes with prior infarcts involving the right frontal parietal junction, right cerebellum, the cerebellum on the right as well as the romi and bilateral basal ganglia 4. Extensive cerebral microhemorrhages ASSESSMENT/PLAN: 1. Intracranial meningioma (HCC) - ICD9: 225.2, ICD10: D32.0 (primary diagnosis) Patient is here for a follow-up visit after an MRI scan as we follow his excised meningioma with MRIs. He has no neurological symptoms at this time. The site of his surgery scalp in the right frontotemporal region are normal with no fluid collection or evidence of infection. He is awake alert oriented x 3 with no focal deficit. The MRI scan was reviewed and the surgical bed reveals no evidence of residual or recurrent meningioma. I recommended a follow-up MRI in 1 year. He is on Eliquis at this time. - MRI BRAIN WO/W IVCON - IV CONTRAST (RADIOLOGY PROCEDURE) - NOT ON JAN 2. Traumatic subdural hematoma with loss of consciousness, sequela (HCC) - ICD9: 907.0, ICD10: S06.5X9S - MRI BRAIN WO/W IVCON - IV CONTRAST (RADIOLOGY PROCEDURE) - NOT ON MAR Leonard Ko MD FOLLOW UP: Return in about 1 year (around 01/19/2026) for review of MRI. Please Note: This note has been partially generated using [employer], a speech recognition software program, and may contain errors including punctuation, grammar, spelling, gender, and inappropriate words or phrases that pertain to the system. documented in this encounter [facility] 01-19-2025 Note Radha [facility] 01-18-2025 Note Addended by: KARTHIK NICHOLAS on: 01/18/2025 04:33 PM Modules accepted: Orders [facility] 01-18-2025 Miscellaneous Notes Addended by: KARTHIK HOLLIDAY on: 01/18/2025 04:33 PM Modules accepted: Orders documented in this encounter [facility] 01-16-2025 History of Present illness Narrative Radiology Service Progress Note DATE OF SERVICE: January 16, 2025 TIME: 10:26 AM PATIENT IDENTITY VERIFICATION COMPLETED USING TWO (2) STANDARD IDENTIFIERS: Name and Date of confirmed by patient verbally and Name and Date of confirmed by identification band. FALL SCREENING: Has the patient had 2 falls in the last year or 1 fall with injury or currently using an Ambulatory Assistive Device (Walker, Cane, Wheelchair, Crutches, etc.)? No PATIENT GENDER DATA: Assigned male at PATIENT RELEVANT IMPLANT DATA REVIEWED: Yes PATIENT PRESENTS WITH AN IMPLANTABLE OR ATTACHED DIRECTOR [facility]: No ALLERGIES: Reviewed and unchanged CONTRAST ALLERGY: NO. EXAM: MRI - CONTRAST TYPE: GROUP II PERIPHERAL IV DATA: Ambulatory: A peripheral IV was started in the Right antecubital site with a Angio cath: 22 gauge. RADIOLOGY DEPARTMENT: MR; Exam(s) Completed: Head: Routine Brain SIGNATURE: FRANCOIS Najera PATIENT NAME: Alfonzo Simon DATE: January 16, 2025 TIME: 10:26 AM documented in this encounter [facility] 01-16-2025 Note [facility] 12-12-2024 Note [facility] 12-12-2024 History of Present illness Narrative Hematology Consultation Date: 12/12/2024 Referring Physician: Anya Huang APRN Reason for Consultation: Multiple subsegmental PE and acute DVT HPI: He presents for evaluation and recommendations for DVT PE. He has very complicated history including PMHx as below. He had a fall in April 2024 and had traumatic SAH. He had evacuation of the bleed and meningothelial type meningioma Grade 1 was found and resected. His hospitalization was complicated by ischemic cardiogenic stroke and bilateral cortical infarcts. Post-hospital monitor revealed aflutter. AC was not started due to SAH and watchman was considered. He went to nursing facility for rehab. He then developed SOB and leg swelling and presented to the ER on 09/23/24 and was found with multiple PE and bilateral calf DVT. He was placed on heparin and then eventually Eliquis which he continues at this time. This was thought to be provoked from immobility and aflutter. He has been cleared by neuro to take AC and is being followed closeley. His next MRI will be in January. He is here for recommendations for anticoagulation duration. He is currently residing at residential facility and is here in a wheelchair. He does get some physicial therapy and states he was actually able to walk a small distance across the room yesterday. He is hoping to eventually get home. He states his SOB is much improved and his swelling is somewhat improved. He denies personal or family history of DVT/PE or clotting disorders. He denies family history of cancers. He is up to Date on cancer screening with last colonoscopy in 2019. He has negative smoking history. He drinks alcohol rarely and denies drug use or chemical exposure. He is currently working on getting disability. He denies pain, fever, chills, or night sweats. He denies weight loss. He is fatigued, but states his room mate has his TV on all night. No other complaints. PAST MEDICAL HISTORY Diagnosis Date Atrial fibrillation (HCC) Benign prostatic hyperplasia with lower urinary tract symptoms 05/25/2016 Bilateral lower extremity edema 05/25/2016 Bladder mass Bradycardia 05/25/2016 Colon polyp 11/08/2008 benign Essential hypertension 05/25/2016 Obesity, morbid, BMI 40.0-49.9 (HCC) Parkinsonism (HCC) Sleep apnea no machine Subdural hematoma (HCC) Systolic murmur 05/25/2016 Vitamin D deficiency 05/25/2016 PAST SURGICAL HISTORY Procedure Laterality Date COLONOSCOPY GEN ANES 10/22/2020 Dr. Iqbal x3 last one in 2019 CYSTOSCOPY 03/2021 Bladder tumor OTHER SURGICAL HISTORY (PLEASE SPECIFY) HX 2017 Prostate surgery TURP FAMILY HISTORY Problem Relation Age of Onset Diabetes Father from complications from DM. Social History Tobacco Use Smoking status: Never Smokeless tobacco: Never Vaping Use Vaping status: Never Used Substance Use Topics Alcohol use: Not Currently Comment: occ. Maybe one drink per week. Drug use: No ALLERGIES No Known Allergies Current Outpatient Medications Medication Sig Dispense Refill buPROPion XL (WELLBUTRIN XL) 300 mg 24 hr tablet Take 1 tablet by mouth once daily. 90 tablet 0 escitalopram oxalate (LEXAPRO) 10 mg tablet Take 1 tablet by mouth once daily. 90 tablet 0 Bisacodyl (DULCOLAX) 5 mg tab Take 5 mg by mouth as needed for constipation. miconazole 2 % powder Apply 1 application to affected area two times a day. tamsulosin (FLOMAX) 0.4 mg TAKE 1 CAPSULE AT BEDTIME 90 capsule 3 acetaminophen (TYLENOL) 500 mg tablet Take 2 tablets by mouth every 8 hours as needed for pain. hydralazine HCl (HYDRALAZINE ORAL) Take 40 mg by mouth every 8 hours. amLODIPine (NORVASC) 5 mg tablet Take 2 tablets by mouth once daily. senna-docusate (SENNA-S) 8.6-50 mg per tablet Take 1 tablet by mouth two times a day. (Patient taking differently: Take 1 tablet by mouth two times a day as needed for constipation.) lisinopril (ZESTRIL) 40 mg tablet Take 1 tablet by mouth once daily. 90 tablet 1 atorvastatin (LIPITOR) 20 mg tablet Take 1 tablet by mouth once daily. 90 tablet 1 No current facility-administered medications for this visit. PE There were no vitals filed for this visit. ECOG PS: 1 Pain Intensity: 0/10 General: Age-appropriate well developed. Appears well. HEENT: Normocephalic, no sclera icterus Neck: Supple, no JVD. Chest: Clear bilaterally, no wheezes, not labored. Heart: Normal S1 and S2, no abnormal sounds Abdomen: Soft, nontender, nondistended Extremities: Bilateral LE edema Neurological: no focal deficits. In wheelchair Skin: Warm and dry with no rashes or ulcerations. Nodes: No palpable adenopathy in the cervical, supraclavicular, infraclavicular regions. Hematologic: no bruising or petechiae. Lab Results Component Value Date WBC 8.07 09/27/2024 HB 12.7 (L) 09/27/2024 MCV 91.1 09/27/2024 PLT 228 09/27/2024 Lab Results Component Value Date NA 139 09/27/2024 K 3.9 09/27/2024 CO2 23 09/27/2024 BUN 12 09/27/2024 CA 8.6 09/27/2024 TBILI 0.5 09/23/2024 TPROT 6.7 09/23/2024 ALB 3.9 09/23/2024 ALKPHOS 157 (H) 09/23/2024 ALT 24 09/23/2024 AST 20 09/23/2024 Assessment and Plan: Mr. 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 -Would recommend minimum of 6 months of AC given the amount of DVT burden, re-evaluate in 6 months -consider decreasing as many risk factors for DVT as possible: ie Watchman consideration and increasing mobility -check Coag disorders as this may change duration of anticoagulation -continue to follow closely with neuro Faith Moore APRN.CHAN Discussed his case with one of our package reinspector and they agree with plan documented in this encounter [facility] [place] 12-01-2024 Telephone encounter Note Please let Alfonzo know that they would not cover the increase in Bupropion and therefore I sent Lexapro 10 mg to be taken with the 300 mg of bupropion. Have him take half a tablet for the first 14 days then he can increase to the full 10 mg tablet. Karthik Holliday APRN.CNP December 01, 2024 9:03 AM [facility] [place] 12-01-2024 Miscellaneous Notes Please let Alfonzo know that they would not cover the increase in Bupropion and therefore I sent Lexapro 10 mg to be taken with the 300 mg of bupropion. Have him take half a tablet for the first 14 days then he can increase to the full 10 mg tablet. Karthik Holliday APRN.CNP December 01, 2024 9:03 AM Bupropion xl 450 mg has been denied by insurance. Would like alternative sent to pharmacy. Thank you documented in this encounter [facility] [place] 12-01-2024 Telephone encounter Note Bupropion xl 450 mg has been denied by insurance. Would like alternative sent to pharmacy. Thank you [facility] [place] 11-29-2024 Telephone encounter Note PA done for BuPropion XL 450mg Denied FYI [facility] [place] 11-29-2024 Miscellaneous Notes PA done for BuPropion XL 450mg Denied FYI documented in this encounter [facility] [place] 11-28-2024 Note Radha [facility] 11-28-2024 History of Present illness Narrative VIRTUAL VISIT PROGRESS NOTE This is a virtual visit using [employer] Video Visit. It required patient-provider interaction for the medical decision making as documented below. I have communicated my name and active licensure. The patient's identity and physical location were verified at the time of this visit. Either the patient or their legal patient services representative has been informed of the risks and benefits of -- and alternatives to -- treatment through a remote evaluation and consents to proceed with the evaluation remotely. Alfonzo Simon is a 64 year old male seen for follow up on depression medications. Reports minimal symptoms at this time. However his has noted that he has been going up and down consistently over the last few weeks while being in rehab. HISTORY REVIEWED (electronic chart updated): PAST MEDICAL HISTORY Diagnosis Date Atrial fibrillation (HCC) Benign prostatic hyperplasia with lower urinary tract symptoms 05/25/2016 Bilateral lower extremity edema 05/25/2016 Bladder mass Bradycardia 05/25/2016 Colon polyp 11/08/2008 benign Essential hypertension 05/25/2016 Obesity, morbid, BMI 40.0-49.9 (HCC) Parkinsonism (HCC) Sleep apnea no machine Subdural hematoma (HCC) Systolic murmur 05/25/2016 Vitamin D deficiency 05/25/2016 PAST SURGICAL HISTORY Procedure Laterality Date COLONOSCOPY GEN ANES 10/22/2020 Dr. Iqbal x3 last one in 2019 CYSTOSCOPY 03/2021 Bladder tumor OTHER SURGICAL HISTORY (PLEASE SPECIFY) HX 2017 Prostate surgery TURP FAMILY HISTORY Problem Relation Age of Onset Diabetes Father from complications from DM. Social History Tobacco Use Smoking status: Never Smokeless tobacco: Never Vaping Use Vaping status: Never Used Substance Use Topics Alcohol use: Not Currently Comment: occ. Maybe one drink per week. Drug use: No Current Outpatient Medications Medication Sig buPROPion XL 450 mg Tb24 Take 1 tablet by mouth once daily. Bisacodyl (DULCOLAX) 5 mg tab Take 5 mg by mouth as needed for constipation. miconazole 2 % powder Apply 1 application to affected area two times a day. tamsulosin (FLOMAX) 0.4 mg TAKE 1 CAPSULE AT BEDTIME acetaminophen (TYLENOL) 500 mg tablet Take 2 tablets by mouth every 8 hours as needed for pain. hydralazine HCl (HYDRALAZINE ORAL) Take 40 mg by mouth every 8 hours. amLODIPine (NORVASC) 5 mg tablet Take 2 tablets by mouth once daily. senna-docusate (SENNA-S) 8.6-50 mg per tablet Take 1 tablet by mouth two times a day. (Patient taking differently: Take 1 tablet by mouth two times a day as needed for constipation.) lisinopril (ZESTRIL) 40 mg tablet Take 1 tablet by mouth once daily. atorvastatin (LIPITOR) 20 mg tablet Take 1 tablet by mouth once daily. No current facility-administered medications for this visit. ALLERGIES No Known Allergies REVIEW OF SYSTEMS: All other ROS: negative As noted in HPI PHQ-9 Score: 1 (11/28/2024 8:49 AM) (0-4) minimal depression, (5-9) mild depression, (10-14) moderate depression, (15-19) moderately severe depression, (20-27) severe depression PHYSICAL EXAMINATION: VIDEO EXAM: (if completed, performed via video enabled technology) GENERAL: alert and appropriate, in no distress, well-hydrated, well nourished, and happy, smiling, interactive SKIN: no rash noted HEAD: normocephalic, no abnormality or lesion noted EYES: no injection and visual acuity is grossly normal EARS: hearing grossly normal RESPIRATORY: breathing non-labored CHEST: equal chest rise with normal respiratory effort ASSESSMENT/PLAN: 1. Depression, unspecified depression type - ICD9: 311, ICD10: F32.A Increase Wellbutrin to 450 mg daily and follow up in 4 weeks. - BUPROPION HCL XL 450 MG 24 HR TABLET, EXTENDED RELEASE There are no Patient Instructions on file for this visit. I spent a total of 20 minutes on the date of the service which included preparing to see the patient, [id number] patient care, completing clinical documentation, obtaining and/or reviewing separately obtained history, performing a medically appropriate examination, counseling and educating the patient/family/caregiver, ordering medications, tests, or procedures, and communicating with other HCPs (not separately reported) Karthik Holliday APRN.CHAN documented in this encounter [facility] [place] 10-27-2024 History of Present illness Narrative NEUROSURGERY FOLLOW UP OFFICE NOTE Dr. Leonard Ko MD, FACS Date of visit: October 27, 2024 Patient Name: Mr.Kevin Myrna Simon Date of : 1960 Current Age: [age] year old Sex: male MRN/E# [id number] Last Office Visit: 10/13/2024 CHIEF COMPLAINT: No chief complaint on file. SUBJECTIVE: The patient presents as a follow up with CT WO imaging (brain) for evaluation. This is a 64 year old male with a PMHx of BPH, HTN, morbid obesity, parkinsonism and sleep apnea who was seen for consult at [facility] on 04/16/24 after transfer from [facility] for a SAH. Per patients , the patient had fallen the evening before and was unable to get up. EMS assisted with lift and patient went to bed at home. The following day he was noted to be confused with difficulty word finding/expressive aphasia. Imaging demonstrated a right frontotemporal SDH with MLS and right frontal cortical sulci SAH. He denied use of blood thinning medications. He was started on Keppra 1g BID and monitored in the ICU with frequent neuro checks. He was taken to the OR in the morning for evacuation of the bleed as noted above. Intra-op there was note of a tumor suspected to be a meningioma and this was resected as well. His post op course was complicated by acute ischemic stroke with bilateral cortical infarcts, bradycardia, HTN. He was evaluated by stroke and cleared to begin low dose ASA 04/22/24. Once medically stable he was cleared for discharge to rehab. Recommendation was to follow up for post op visit and suture removal. He was seen on 05/09/24 and reported that he was doing well. He denied denies headache, visual changes, speech deficits, seizure activity, motor or sensory deficits. Neurologically he continued to have mild expressive deficits and left sided weakness. Incision was well healed, sutures were removed at rehab. There was not note of infection. Pathology was discussed. Since then he has been seen routinely for evaluation with imaging and has overall done well. He was last seen in the office on 06/20/2024 and reported that he continued to do well. He was residing in [facility] and participating in PT/OT/ST. He was moving his left side much better and his speech was improved. He continued to demonstrate left-sided weakness on exam was in a wheelchair but stated that he was ambulating with assist at rehab. CT was reviewed and showed no evidence of acute intracranial process or residual subdural hemorrhage and expected postoperative changes. Recommendation was to follow-up in 4 months for a routine evaluation. Prior to his visit he was seen by neurology stroke who obtained an MRI of the brain. Radiology reports were concerning for possible pseudomeningocele or superimposed infection. The residential facility was contacted with recommendation for the patient to be evaluated in person. At his last visit on 10/13/2024, he stated that he had been well. He was awake an alert and reports his speech was improved. He was communication with his on the phone by text. He had no cranial nerve deficit and noted no evidence of infection in the area of the craniotomy. The site was relieving a fluid collection which was very fluctuant and the gravity dependent. There was no redness or tenderness. It was not felt that he had an infection. It was possible that he had blood accumulation when he was on anticoagulants for DVT or this could be cerebrospinal fluid communication with the subgaleal space. No surgical interventions were recommended. It was recommended he follow up in [address] scan, prompting his visit today. Today he states he is doing ok overall today. He presents today in a wheelchair. He is currently in [facility]. Denies headaches or blurred vision. He presents for image review, evaluation and plan of care. SYMPTOMS: None PREVIOUS CONSERVATIVE TREATMENTS: longterm facility PT/OT SURGICAL RISK: Smoker: Never Diabetic: No Anticoagulants / Antiplatelets: ASA 81 mg Occupation: NA PREVIOUS SURGERY: SURGERY #1: Right frontal craniotomy for evacuation of SDH and excision of tumor on 04/16/[address] Ko. FINAL DIAGNOSIS A. Brain tumor, excision: - Meningioma, meningothelial type (grade 1). See comment. PRE-SURGICAL SYMPTOMS: Confusion, difficulty word finding ONCOLOGY TREATMENT TEAM: N/A PAIN EVALUATION No data found in the last 1 encounters. PAST MEDICAL HISTORY Diagnosis Date Atrial fibrillation (HCC) Benign prostatic hyperplasia with lower urinary tract symptoms 05/25/2016 Bilateral lower extremity edema 05/25/2016 Bladder mass Bradycardia 05/25/2016 Colon polyp 11/08/2008 benign Essential hypertension 05/25/2016 Obesity, morbid, BMI 40.0-49.9 (HCC) Parkinsonism (HCC) Sleep apnea no machine Subdural hematoma (HCC) Systolic murmur 05/25/2016 Vitamin D deficiency 05/25/2016 PAST SURGICAL HISTORY Procedure Laterality Date COLONOSCOPY GEN ANES 10/22/2020 Dr. Iqbal x3 last one in 2019 CYSTOSCOPY 03/2021 Bladder tumor OTHER SURGICAL HISTORY (PLEASE SPECIFY) HX 2017 Prostate surgery TURP FAMILY HISTORY Problem Relation Age of Onset Diabetes Father from complications from DM. ALLERGIES No Known Allergies Current Outpatient Medications Medication Sig Dispense Refill polyethylene glycol 3350 17 gram packet Take 1 Packet by mouth once daily. Dissolve dose in 4 - 8 ounces of liquid and take as directed. miconazole 2 % powder Apply 1 application to affected area two times a day. apixaban (ELIQUIS) 5 mg tab(s) Take 2 tablets by mouth two times a day for 5 days, THEN 1 tablet two times a day for 28 days. 76 tablet 0 nystatin (MYCOSTATIN) powder Apply 1 application to affected area four times daily. 60 g 2 tamsulosin (FLOMAX) 0.4 mg TAKE 1 CAPSULE AT BEDTIME 90 capsule 3 acetaminophen (TYLENOL) 500 mg tablet Take 2 tablets by mouth every 8 hours as needed for pain. buPROPion XL (WELLBUTRIN XL) 300 mg 24 hr tablet Take 300 mg by mouth once daily. hydralazine HCl (HYDRALAZINE ORAL) Take 40 mg by mouth every 8 hours. amLODIPine (NORVASC) 5 mg tablet Take 2 tablets by mouth once daily. senna-docusate (SENNA-S) 8.6-50 mg per tablet Take 1 tablet by mouth two times a day. (Patient taking differently: Take 1 tablet by mouth two times a day as needed for constipation.) lisinopril (ZESTRIL) 40 mg tablet Take 1 tablet by mouth once daily. 90 tablet 1 atorvastatin (LIPITOR) 20 mg tablet Take 1 tablet by mouth once daily. 90 tablet 1 No current facility-administered medications for this visit. REVIEW OF SYSTEMS: Review of Systems OBJECTIVE: BP 132/79 pulse 65 PHYSICAL EXAM: Patient is sitting in a wheelchair in no acute distress. He is awake and alert denies headache or dizziness. Palpation of the scalp reveals much less fluid accumulation in the subgaleal space in the right temporal region. He has no cranial nerve deficit. His speech recent and remote memory are normal. His strength in the upper extremities is normal. He has difficulty with movement of the lower extremities which is not new. IMAGING: CT Brain WO IVCON performed on 10/27/2024 demonstrates: Report is pending. To me the accumulation of fluid compared to the prior MRI scan in the right temporal area extracranially has decreased and my suspicion is that when patient was on anticoagulation he may have accumulated some oozing of blood which now is recovering. Intracranial structures appear normal. No evidence of fresh bleeding over the brain or in the subgaleal space. ASSESSMENT/PLAN: 1. Intracranial meningioma (HCC) - ICD9: 225.2, ICD10: D32.0 (primary diagnosis) Patient had an excised meningioma that was thought to be source of a subdural hematoma at the time of surgery. This was excised in its entirety and was a grade 1 meningioma. We saw him recently because an MRI scan showed accumulation of a large fluid compartment in the subgaleal space in the right temporal area where he had the surgery. I recommended a follow-up. The CAT scan follow-up was done today that showed almost complete resolution of this fluid with residuals very small area. I told the patient if he needs to be on Eliquis for his cardiac condition and his graphics intern thinks he should be on it I we will clear him for that as of now. As far as the excised meningioma I recommended an MRI scan and a follow-up visit in January 2025 so we can assess for any residual or recurrence. - MRI BRAIN WO/W IVCON - IV CONTRAST (RADIOLOGY PROCEDURE) - NOT ON JAN 2. Benign neoplasm of meninges (HCC) - ICD9: 225.2, ICD10: D32.9 - MRI BRAIN WO/W IVCON - IV CONTRAST (RADIOLOGY PROCEDURE) - NOT ON JAN Leonard Ko MD FOLLOW UP: January 2025 with an MRI scan Please Note: This note has been partially generated using [employer], a speech recognition software program, and may contain errors including punctuation, grammar, spelling, gender, and inappropriate words or phrases that pertain to the system. documented in this encounter [facility] [place] 10-27-2024 Note [facility] 10-26-2024 Telephone encounter Note Patient facility called in and wanted to verify patient did not have a co pay due tomorrow. I looked at the [facility] CT and follow up and the balance under co pay said 0. I informed facility it stated 0 due [facility] [place] 10-26-2024 Miscellaneous Notes Patient facility called in and wanted to verify patient did not have a co pay due tomorrow. I looked at the [facility] CT and follow up and the balance under co pay said 0. I informed facility it stated 0 due documented in this encounter [facility] [place] 10-26-2024 Telephone encounter Note Submitted through portal Consult to Hematology/Oncology #[id number], to be scheduled at [facility] dh [facility] [place] 10-26-2024 Miscellaneous Notes Submitted through portal Consult to Hematology/Oncology #[id number], to be scheduled at [facility] documented in this encounter [facility] [place] 10-26-2024 Anya Nieto APRN.CNP - 10/26/2024 11:00 AM EST Images from the original note were not included. Regarding your visit with Nurse Practitioner Anya Huang today at the [facility] [place] [facility] we discussed the following: Impression: Bilateral cortical ischemic infarcts ~04/17/24. Etiology cardioembolic from atrial flutter Left hemiparesis as late effect of CVA Aphasia as late effect of CVA Trauamtic SDH and SAH from ground level fall 04/14/24 Silent cerebral microhemorrhages - cortical and subcortical, consider possible cerebral amyloid angiopathy Remote lacunar infarcts, likely small vessel etiology Atrial flutter Hypertension Dyslipidemia - LDL 59 Recommendations: CT brain tomorrow as scheduled - will review Consult to Hematology regarding PE and DVT, length of treatment Continue eliquis 5mg twice daily for PE and DVT. If treatment is planned to be lifelong can consider IVC filter I will forward note to Cardiology - Would not recommend lifelong anticoagulation for patient, if possible due to his cerebral microhemorrhages. For his atrial fibrillation/flutter, recommend consideration of left atrial appendage closure rather than lifelong anticoagulation Can consider muscle relaxant for spasticity if tylenol no longer helpful Continue atorvastatin for secondary stroke prevention and LDL goal below 70. Continue monitoring blood pressure for goal below 130/80. Follow up in 4 months -Regular follow up with primary care doctor for health maintenance -Assist ensuring blood pressure and cholesterol are at goal -Screen and manage diabetes -Lifestyle modification -- Establish goals -Diet -Regular Exercise as discussed -Establish weight goals with primary care doctor -Additional stroke reduction measures and stroke warning signs are listed below. Please do not hesitate to call if you have any questions Anya Huang CNP [facility] [place] Nurse Practitioner [place], [place] [address] Office: [phone] Appointments: [phone] Stroke Signs and Symptoms: *Stroke is a medical emergency. Know the warning signs of stroke: Sudden numbness or weakness of the face, arm or leg, especially on one side of the body Sudden confusion, trouble speaking, or understanding Sudden trouble seeing in one eye, or both eyes Sudden trouble walking, dizziness, loss of balance, or coordination Sudden severe headache with no known cause *If you, or someone with you, has one or more of these signs, don't delay! Immediately call 911, or the emergency medical services (EMS) number so an ambulance can be sent for you. Also, check the time so that you will know when the symptoms first appeared. It is very important to take immediate action, every second counts. Medical treatment may be available if action is taken early enough. ~~~~~~~~~~~~~~~~~~~~~~~~~~~~~~~~~~ ~~~~~~~~~~~~~~~~~~~~~~~~~~~~~~~~~~ ~~~~ General Guidelines to Help Reduce Risk of Recurrent Stroke Blood Pressure Management: Blood Pressure reduction is recommended for both prevention of recurrent stroke and prevention of other vascular events in persons who have had an ischemic stroke or TIA and are beyond the first 24 hours. Several lifestyle modifications have been associated with BP reduction and are a reasonable part of a comprehensive antihypertensive therapy. These modifications include: - salt restriction (less than 2 grams per day) - weight loss - consumption of a diet rich in fruits, vegetables, and low-fat dairy products - regular aerobic physical activity - limited alcohol consumption Goal: Prehypertension (BP less than 130/80 mm Hg): - Perform annual BP screening and lifestyle modifications Hypertension: (BP greater than or equal to 130/80 mm Hg) - Combine medications with above lifestyle modifications to reach your goal blood pressure as defined above. - Monitor your blood pressure at home regularly to ensure you are reaching your goals Diabetes Mellitus: - the goal for glycemic control should be individualized based on the risk for adverse events, patient characteristics and preferences, and, for most patients with diabetes, achieving a goal of HbA1c <=7% is recommended to reduce risk for microvascular complications. - treatment of diabetes should include glucose-lowering medications with proven cardiovascular benefit to reduce the risk for future major adverse cardiovascular events (eg, stroke, heart attack) Cholesterol and Lipid Management - Statin (rosuvastatin or atorvastatin) therapy with intensive lipid-lowering effects is recommended to reduce risk of stroke and cardiovascular events among patients with ischemic stroke or TIA who have LDL cholesterol > 100 mg/dL, or evidence of atherosclerosis. - A goal of LDL cholesterol < 70 mg/dL for stroke or TIA patients on lipid lowering therapy is recommended. - Ezetimibe in combination with statin therapy to lower the LDL cholesterol < 70 mg/DL is recommended, if statin therapy alone is insufficient to attain this treatment target. - For patients with ischemic stroke at very high risk, already taking maximally tolerated statin and ezetimibe and still have an LDL cholesterol > 70 mg/dL, it is reasonable to treat with a proprotein convertase subtilisin/kexin type 9 (PCSK9) inhibitor to prevent atherosclerotic cardiovascular or cerebrovascular events. - In patients with ischemic stroke or TIA, with fasting triglycerides 135 to 499 mg/dL and LDL cholesterol of 41 to 100 mg/dL, on moderate- or high-intensity statin therapy, with HbA1c <10%, and with no history of pancreatitis, atrial fibrillation, or severe heart failure, treatment with icosapent ethyl (IPE) 2 g twice a day is reasonable to reduce risk of recurrent stroke Diet: - Reduced sodium and increased potassium intake; DASH-style diet rich in fruits and vegetables (https://www.nhlbi.nih.gov/educati on/waei-jbanin-idya) - Consider Mediterranean diet supplemented with nuts Smoking and Tobacco Use: - Strongly recommend smoking and tobacco use cessation to reduce risk of stroke. - Counseling, nicotine products, and oral smoking cessation medications are effective for helping smokers quit and can be provided if needed. Alcohol Consumption: - Patients with ischemic stroke or TIA who drink greater than or equal to 2 alcoholic drinks a day, should eliminate alcohol use or reduce their consumption of alcohol to less than equal to 1 alcohol drink per day to reduce stroke risk Exercise - In patients with stroke or TIA who are capable of physical activity, engaging in at least moderate-intensity aerobic activity for a minimum of 10 minutes 4 times a week or vigorous-intensity aerobic activity for a minimum of 20 minutes twice a week is indicated to lower the risk of recurrent stroke - In patients with deficits after stroke that impair their ability to exercise, supervision of an exercise program by a health account executive healthcare such as a physical therapist or cardiac rehabilitation professional, in addition to routine rehabilitation, can be beneficial for secondary stroke prevention - In individuals with stroke or TIA who sit for long periods of uninterrupted time during the day, it may be reasonable to recommend breaking up sedentary time with intervals as short as 3 minutes of standing or light exercise every 30 minutes for their cardiovascular health Adapted from the [place] [employer]/[place] Stroke Association: 202 Guideline for the Prevention of Stroke in Patients With Stroke and Transient Ischemic Attack documented in this encounter [facility] 10-26-2024 History of Present illness Narrative [facility] Established Visit Consultation is requested by: No referring provider defined for this encounter. PCP: [place] [address] [facility]EREBR[facility] Alfonzo Simon is a 64 year old left-handed male presenting for hospital discharge follow up. Admitted to [facility] 04/15-04/25/24. From discharge summary Mr. Alfonzo Simon was directly admitted to [facility] on 04/15/2024 for treatment of injuries sustained during a reported ground level fall that occurred on 04/14/2024. CT imaging revealed the following acute traumatic injuries: 1. Right subdural hematoma measuring up to 13 mm with 5 mm leftward midline shift 2. Right frontal subarachnoid hemorrhage 3. Left lower flank/buttock subcutaneous lobulated hematoma measuring up to 15 cm. Mr. Simon was admitted to the ICU. Neurosurgery was consulted. He would undergo right craniotomy evacuation of his subdural hematoma and excision of an incidentally noted brain tumor suspected to be a meningioma on 04/16/[address] Ko. On the day of his surgery, he was noted to exhibit left upper extremity and aphasia. Neurology was consulted and he was treated for acute ischemic stroke as MRI imaging revealed bilateral cortical infarcts possibly related to subdural hemorrhage with mass effect but concerning for central embolic phenomenon. He also received a tapering course of Decadron and his neurological status improved. It was recommended that he be discharged with an event monitor and daily aspirin. Once determined appropriate from a neurosurgery standpoint, he was started on a daily aspirin 81 mg for stroke prevention (initiated 04/22/2024). He completed a 7-day course of Keppra for seizure prevention. Hypertension was treated with his home Lisinopril 40 mg daily and Norvasc which was increased to 10 mg daily along with as needed hydralazine. Per neurosurgery recommendations, he would require outpatient follow-up with his treating neurosurgery (Dr. Ko) two weeks post-operatively for re-evaluation and craniotomy suture removal (05/02/2024). He would also require follow-up with stroke neurology (05/30/2024). His left flank hematoma was treated expectantly and hemoglobin remained stable. Mr. Simon's admission was complicated by hermosillo catheter placement that created a false passage. For that, urology was consulted and, per there recommendations, his hermosillo catheter remained in place for just over 1 week. A voiding trial was ordered on 04/24/2024 which he passed and was able to urinate on his own following catheter removal. It was recommended that he follow-up with urology as an outpatient following hospital discharge. Mr. Simon was evaluated by speech therapy for both diet recommendations and cognitive evaluation. He was cleared for a soft and bite-sized diet with thin liquids. His cognition gradually improved throughout his admission. He was evaluated by physical and occupational therapy who recommended inpatient rehab at discharge. Mr. Simon would be discharged to [facility] rehab in stable condition on 04/25/2024. He would require outpatient follow-up care with his treating neurosurgeon, stroke neurology and urology as well as his primary care provider. Reason for Visit: subdural hematoma, subarachnoid hemorrhage and ischemic stroke Date of Last Event: 04/15/2024 Antiplatelets/Anticoagulants: Apixaban Statins: Atorvastatin Residual Deficits: Motor weakness Current PT/OT/ST: Physical therapy at home, Occupational therapy at home and Speech therapy at home Current Living Situation: Still in a rehab facility Current use of a mobility aid for walking/getting around: Walker Office Visit 05/30/24 -presents for hospital discharge follow up -denies any new symptoms or clinical events -living at [facility] -prior to this lived at home with -PT, OT, speech -LUE weakness, aphasia getting better -ambulates with walker and assistance -in atrial flutter on outpatient event monitor -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 Takes tylenol of sore after therapy which helps -speech is essentially back to normal -ambulates with walker now mostly independently, needs additional assitance getting up sometimes -in September admitted with bilateral PE and lower extremity DVT. Started on eliquis, benefit outweight risk has prior ICH was traumatic rather than spontaneous, and microbleeds are mixed cortical and subcortical -follow up MRI in September with concern for possible infection at site of surgical site; otherwise no interval change or new hemorrhage -MRI was performed after being on eliquis for several days -saw NSGY regarding the above, likely not infection, rec [address] scan which is scheduled for tomorrow -lipitor 20mg -BP 135/72 PAST MEDICAL HISTORY Diagnosis Date Atrial fibrillation (HCC) Benign prostatic hyperplasia with lower urinary tract symptoms 05/25/2016 Bilateral lower extremity edema 05/25/2016 Bladder mass Bradycardia 05/25/2016 Colon polyp 11/08/2008 benign Essential hypertension 05/25/2016 Obesity, morbid, BMI 40.0-49.9 (HCC) Parkinsonism (HCC) Sleep apnea no machine Subdural hematoma (HCC) Systolic murmur 05/25/2016 Vitamin D deficiency 05/25/2016 PAST SURGICAL HISTORY Procedure Laterality Date COLONOSCOPY GEN ANES 10/22/2020 Dr. Iqbal x3 last one in 2019 CYSTOSCOPY 03/2021 Bladder tumor OTHER SURGICAL HISTORY (PLEASE SPECIFY) HX 2017 Prostate surgery TURP FAMILY HISTORY Problem Relation Age of Onset Diabetes Father from complications from DM. Social History Tobacco Use Smoking status: Never Smokeless tobacco: Never Vaping Use Vaping status: Never Used Substance Use Topics Alcohol use: Not Currently Comment: occ. Maybe one drink per week. Drug use: No MEDICATIONS Current Outpatient Medications Medication Sig magnesium, aluminum hydroxide (ALUMINUM-MAGNESIUM HYDROXIDE ORAL) Take by mouth. polyethylene glycol 3350 17 gram packet Take 1 Packet by mouth once daily. Dissolve dose in 4 - 8 ounces of liquid and take as directed. miconazole 2 % powder Apply 1 application to affected area two times a day. apixaban (ELIQUIS) 5 mg tab(s) Take 2 tablets by mouth two times a day for 5 days, THEN 1 tablet two times a day for 28 days. tamsulosin (FLOMAX) 0.4 mg TAKE 1 CAPSULE AT BEDTIME acetaminophen (TYLENOL) 500 mg tablet Take 2 tablets by mouth every 8 hours as needed for pain. buPROPion XL (WELLBUTRIN XL) 300 mg 24 hr tablet Take 300 mg by mouth once daily. hydralazine HCl (HYDRALAZINE ORAL) Take 40 mg by mouth every 8 hours. amLODIPine (NORVASC) 5 mg tablet Take 2 tablets by mouth once daily. senna-docusate (SENNA-S) 8.6-50 mg per tablet Take 1 tablet by mouth two times a day. (Patient taking differently: Take 1 tablet by mouth two times a day as needed for constipation.) lisinopril (ZESTRIL) 40 mg tablet Take 1 tablet by mouth once daily. atorvastatin (LIPITOR) 20 mg tablet Take 1 tablet by mouth once daily. No current facility-administered medications for this visit. ALLERGIES ALLERGIES No Known Allergies PHYSICAL EXAMINATION BP 135/72 Pulse (!) 59 Ht 182.9 cm (6') Wt 130.6 kg (288 lb) BMI 39.06 kg/m General: Well-developed, well-nourished, in no acute distress. HEENT: Normocephalic, atraumatic. Sclerae anicteric. Oropharynx clear. Neck: No JVD Heart: Skin well-perfused. Lungs: Breathing comfortably on room air. Extremities: No edema, cyanosis, or clubbing. Skin: No rash or ecchymoses. Neurological: Awake, alert, oriented to person, place, and time. Speech fluent, no dysarthria. Recall, comprehension intact. Good attention and insight into illness. Cranial Nerves: Extraocular movements intact without nystagmus. Visual thayer full. Facia movements normal and symmetric. Motor: mildly increased tone LUE. Slight drift LUE Sensation: Intact light touch Coordination: [id number] without dysmetria on right Gait: deferred LABS Cholesterol: Cholesterol, Total (mg/dL) Date Value 04/18/2024 132 12/17/2017 251 Total Cholesterol, Nonfasting (mg/dL) Date Value 04/18/2024 137 LDL Cholesterol (mg/dL) Date Value 04/18/2024 57 LDL Cholesterol, Nonfasting (mg/dL) Date Value 04/18/2024 59 LDL Calculated (mg/dL) Date Value 12/17/2017 145 HDL Cholesterol (mg/dL) Date Value 04/18/2024 54 12/17/2017 47 HDL Cholesterol, Nonfasting (mg/dL) Date Value 04/18/2024 56 Triglyceride (mg/dL) Date Value 04/18/2024 105 12/17/2017 295 Triglycerides, Nonfasting (mg/dL) Date Value 04/18/2024 109 Diabetes: Hemoglobin A1C (%) Date Value 04/18/2024 5.6 12/17/2017 5.8 IMAGING MRI brain 10/02/24 IMPRESSION: Interval development of sizable fluid collection within right-sided scalp along right frontotemporal lobe measuring 70 x 27 x 16 mm. There appears to be possible continuity to the adjacent extra-axial space, as detailed above. Leading differential consideration includes pseudomeningocele. Superimposed infection would not be excluded. Clinical correlation and neurosurgical follow-up is recommended. No evidence of acute infarct, acute lobar hemorrhage, or significant mass effect. Scattered punctate microhemorrhages within supratentorial and infratentorial brain appears unchanged since 04/18/2024. This is most likely chronic microhemorrhages. Chronic small vessel ischemic white matter disease and diffuse cerebral volume loss. Chronic lacunar infarcts within bilateral basal ganglia. Additional chronic findings, as detailed above. CT brain 04/15/24 IMPRESSION: Brain- 1. There is an acute right-sided subdural hematoma measuring up to 13 mm in thickness, overlying the frontal and temporal lobes. Associated underlying mass effect and 5 mm leftward midline shift. 2. Acute subarachnoid blood within a few right frontal cortical sulci. 3. Atrophy and chronic ischemic changes. MRI brain, MRA brain and carotids 04/18/24 IMPRESSION: 1. Small acute infarcts in the RIGHT precentral, postcentral gyrus, RIGHT frontal operculum and LEFT temporal lobe, probably embolic in etiology. 2. No corresponding hemorrhage or hemorrhagic transformation. 3. Status post RIGHT subdural hematoma evacuation with small volume residual subdural hemorrhage along the RIGHT occipital convexity and small volume subarachnoid hemorrhage along the RIGHT frontal convexity redemonstrated unchanged. Small volume LEFT posterior parietal, temporal and occipital convexity subdural hemorrhage unchanged. 4. Small bilateral basal ganglial and pontine chronic lacunar infarcts. 5. 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 Recommend attention on follow-up imaging. 6. Multifocal subcortical chronic microhemorrhage is in the supratentorial brain, nonspecific but can be seen with amyloid angiopathy. 7. Within the limitation of motion, no definite large vessel occlusion or hemodynamically significant stenosis of major arteries of head and neck. Echo 04/17/24 CONCLUSIONS: - Technically difficult exam due to suboptimal positioning. - Exam indication: Abnormal ECG - The left ventricle is normal in size. There is moderate upper septal left ventricular hypertrophy. Left ventricular systolic function is normal. EF = 61 5% (2D biplane) Definity contrast used for endocardial border detection. Normal left ventricular diastolic function. - The right ventricle is normal in size. Right ventricular systolic function is normal. - The visualized aorta is dilated with a maximal dimension of 4.3 cm. - There are no significant valvular abnormalities. - Exam was compared with the prior echocardiographic exam performed on 09/03/2022. No significant change noted when compared to report of prior study. Patient Entered Questionnaires PROMIS/NeuroQoL Score Percentiles 01/20/2021 Physical Health Physical Function Percentile 10 Fatigue Percentile 5 01/20/2021 PROMIS SOCIAL ROLE SCORE Social Role Satisfaction Percentile 16* 10/05/2022 01/20/2021 PROMIS Global Health Scale Physical Health Percentile 15 15 Mental Health Percentile 19* 26* Percentiles provide an indication of how a patient's score ranks in relation to the [place] general population. > 31st percentile is within normal limits or better * < 31st percentile is at least SD worse than population, which may be clinically relevant < 16th percentile is at least 1 SD worse than population and warrants attention Depression Screenin02/01/2024 10/29/2022 10/01/2022 PHQ-9 Score 0 0 0 Self-Harm Response Not at all Not at all PHQ-9 Scores: PHQ-9 Self-Harm (Item 9) Response: 0 - 9 No to Mild depression 0 - Not at all 10 - 14 Moderate depression 1 - Several Days > 15 Severe depression 2 - More than half the days 3 - Nearly every day Stroke Mechanism and Scales Ischemic or TIA: Ischemic Stroke TOAST Mechanism (CCF-MODIFIED): Cardioembolism Cardioembolism: Atrial fibrillation/flutter Intracranial Hemorrhage: Subarachnoid and Subdural Hematoma Subarachnoid Hemorrhage: Trauma Modified [place] Score: Score: 3 NIH Stroke Scale: LOC: 0 LOC Questions: 0 LOC Commands: 0 LOC Normal Gaze: 0 Visual Thayer: 0 Facial Palsy: 0 Motor Left Arm: 1 Motor Right Arm: 0 Motor Left Le Motor Right Le Limb Ataxia: 0 Sensory: 0 Language: 0 Dysarthria: 0 Extinction/Neglect: 0 Total Daily NIHSS: 1 Cerebrovascular Disease w/o Stroke Event: Cerebral Microbleeds IMPRESSION Bilateral cortical ischemic infarcts ~04/17/24. 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 If treatment is planned to be lifelong can consider IVC filter if appropriate Will forward note to Cardiology - Would not recommend lifelong anticoagulation for patient, if possible due to his cerebral microhemorrhages. For his atrial fibrillation/flutter, recommend consideration of left atrial appendage closure rather than lifelong anticoagulation. However, timing of this depends on duration of treatment with DOAC for PE and DVT per Hematology consult Can consider muscle relaxant for spasticity if tylenol no longer helpful Continue atorvastatin for secondary stroke prevention and LDL goal below 70. Continue monitoring blood pressure for goal below 130/80. Follow up in 4 months Medical Decision Making: Medical Decision Making Level: 1 - N/A I spent a total of 42 minutes on the date of service which included preparing to see the patient, [id number] patient care, completing clinical documentation, obtaining and/or reviewing separately obtained history, performing a medically appropriate examination, counseling and educating the patient/family/caregiver, communicating with other HCPs (not separately reported), independently interpreting results (not separately reported), communicating results to the patient/family/caregiver, and care coordination (not separately reported) SIGNATURE Anya Huang APRN.RESIDENTIAL REAL ESTATE ASSISTANT CC No referring provider defined for this encounter. [id number] [place] [address] documented in this encounter [facility] 10-26-2024 Note [facility] 10-13-2024 History of Present illness Narrative NEUROSURGERY FOLLOW UP OFFICE NOTE Dr. Leonard Ko MD, FACS Date of visit: October 13, 2024 Patient Name: Mr.Kevin Myrna Simon Date of : 1960 Current Age: [age] year old Sex: male MRN/E# [id number] Last Office Visit: June 20, 2024 CHIEF COMPLAINT: Patient presents with: Established Patient SUBJECTIVE: The patient presents as a follow-up with imaging (MRI B) for evaluation. This is a 64 year old male with a PMHx of BPH, HTN, morbid obesity, parkinsonism and sleep apnea who was seen for consult at [facility] on 04/16/24 after transfer from [facility] for a SAH. Per patients , the patient had fallen the evening before and was unable to get up. EMS assisted with lift and patient went to bed at home. The following day he was noted to be confused with difficulty word finding/expressive aphasia. Imaging demonstrated a right frontotemporal SDH with MLS and right frontal cortical sulci SAH. He denied use of blood thinning medications. He was started on Keppra 1g BID and monitored in the ICU with frequent neuro checks. He was taken to the OR in the morning for evacuation of the bleed as noted above. Intra-op there was note of a tumor suspected to be a meningioma and this was resected as well. His post op course was complicated by acute ischemic stroke with bilateral cortical infarcts, bradycardia, HTN. He was evaluated by stroke and cleared to begin low dose ASA 04/22/24. Once medically stable he was cleared for discharge to rehab. Recommendation was to follow up for post op visit and suture removal. He was seen on 05/09/24 and reported that he was doing well. He denied denies headache, visual changes, speech deficits, seizure activity, motor or sensory deficits. Neurologically he continued to have mild expressive deficits and left sided weakness. Incision was well healed, sutures were removed at rehab. There was not note of infection. Pathology was discussed. Since then he has been seen routinely for evaluation with imaging and has overall done well. He was last seen in the office on 06/20/2024 and reported that he continued to do well. He was residing in [facility] and participating in PT/OT/ST. He was moving his left side much better and his speech was improved. He continued to demonstrate left-sided weakness on exam was in a wheelchair but stated that he was ambulating with assist at rehab. CT was reviewed and showed no evidence of acute intracranial process or residual subdural hemorrhage and expected postoperative changes. Recommendation was to follow-up in 4 months for a routine evaluation. Prior to his visit he was seen by neurology stroke who obtained an MRI of the brain. Radiology reports were concerning for possible pseudomeningocele or superimposed infection. The residential facility was contacted with recommendation for the patient to be evaluated in person prompting his visit today. Since last visit he states that he has been well.. He presents for image review, evaluation and plan of care. SYMPTOMS: None PREVIOUS CONSERVATIVE TREATMENTS: longterm facility PT/OT SURGICAL RISK: Smoker: Never Diabetic: No Anticoagulants / Antiplatelets: ASA 81 mg Occupation: NA PREVIOUS SURGERY: SURGERY #1: Right frontal craniotomy for evacuation of SDH and excision of tumor on 04/16/[address] Ko. FINAL DIAGNOSIS A. Brain tumor, excision: - Meningioma, meningothelial type (grade 1). See comment. PRE-SURGICAL SYMPTOMS: Confusion, difficulty word finding PAIN EVALUATION No data found in the last 1 encounters. PAST MEDICAL HISTORY Diagnosis Date Atrial fibrillation (HCC) Benign prostatic hyperplasia with lower urinary tract symptoms 05/25/2016 Bilateral lower extremity edema 05/25/2016 Bladder mass Bradycardia 05/25/2016 Colon polyp 11/08/2008 benign Essential hypertension 05/25/2016 Obesity, morbid, BMI 40.0-49.9 (HCC) Parkinsonism (HCC) Sleep apnea no machine Subdural hematoma (HCC) Systolic murmur 05/25/2016 Vitamin D deficiency 05/25/2016 PAST SURGICAL HISTORY Procedure Laterality Date COLONOSCOPY GEN ANES 10/22/2020 Dr. Iqbal x3 last one in 2019 CYSTOSCOPY 03/2021 Bladder tumor OTHER SURGICAL HISTORY (PLEASE SPECIFY) HX 2017 Prostate surgery TURP FAMILY HISTORY Problem Relation Age of Onset Diabetes Father from complications from DM. ALLERGIES No Known Allergies Current Outpatient Medications Medication Sig Dispense Refill polyethylene glycol 3350 17 gram packet Take 1 Packet by mouth once daily. Dissolve dose in 4 - 8 ounces of liquid and take as directed. miconazole 2 % powder Apply 1 application to affected area two times a day. apixaban (ELIQUIS) 5 mg tab(s) Take 2 tablets by mouth two times a day for 5 days, THEN 1 tablet two times a day for 28 days. 76 tablet 0 nystatin (MYCOSTATIN) powder Apply 1 application to affected area four times daily. 60 g 2 tamsulosin (FLOMAX) 0.4 mg TAKE 1 CAPSULE AT BEDTIME 90 capsule 3 acetaminophen (TYLENOL) 500 mg tablet Take 2 tablets by mouth every 8 hours as needed for pain. buPROPion XL (WELLBUTRIN XL) 300 mg 24 hr tablet Take 300 mg by mouth once daily. hydralazine HCl (HYDRALAZINE ORAL) Take 40 mg by mouth every 8 hours. amLODIPine (NORVASC) 5 mg tablet Take 2 tablets by mouth once daily. senna-docusate (SENNA-S) 8.6-50 mg per tablet Take 1 tablet by mouth two times a day. (Patient taking differently: Take 1 tablet by mouth two times a day as needed for constipation.) lisinopril (ZESTRIL) 40 mg tablet Take 1 tablet by mouth once daily. 90 tablet 1 atorvastatin (LIPITOR) 20 mg tablet Take 1 tablet by mouth once daily. 90 tablet 1 No current facility-administered medications for this visit. REVIEW OF SYSTEMS: Review of Systems Constitutional: Negative for chills, diaphoresis (Negative for night sweats.) and fever. HENT: Negative for ear discharge and rhinorrhea. Eyes: Negative for discharge. Respiratory: Negative for cough, shortness of breath and wheezing. Cardiovascular: Negative for chest pain, palpitations and leg swelling. Gastrointestinal: Negative for constipation, diarrhea, nausea and vomiting. Endocrine: Negative for cold intolerance and heat intolerance. Genitourinary: Negative for frequency. Negative for urinary incontinence and urinary retention. Musculoskeletal: Positive for gait problem. Negative for back pain, joint swelling, myalgias and neck pain. Skin: Negative for rash (Negative for hives and skin lesions.). Allergic/Immunologic: Negative for environmental allergies and food allergies. Negative for contact allergy, seasonal allergies. Neurological: Positive for weakness and numbness (Negative for numbness in extremities.). Negative for dizziness, seizures, syncope, light-headedness and headaches. Hematological: Does not bruise/bleed easily. Psychiatric/Behavioral: The patient is not nervous/anxious. Negative for depression. OBJECTIVE: BP 146/76 Pulse 71 Resp 16 SpO2 99% PHYSICAL EXAM: Mental State : Alert, memory function unremarkable. Attention span and concentration normal for patient's age. Speech normal, no receptive or expressive speech deficit. Recent and remote memory normal. Orientation : Oriented to person, place and time. Higher Cortical Function : Intact speech and language. Spontaneous speech and comprehension normal. Fund of knowledge intact for pt level of education. Cranial Nerves : II: No visual field cut no blurring, Makes and sustains eye contact III, IV, : Normal, no double vision or drooping. Pupils equal and reactive to light. Extraocular muscles intact. No nystagmus V: Normal sensation on the face, normal jaw movements VII: No paresis on either side VIII: No gross hearing deficit IX: Good and equal shoulder shrugs XII: Tongue midline, no fasciculations Sensory: SILT. Normal Sensation in upper and lower extremities and trunk to touch and noxious stimuli. Motor: Normal muscle tone and bulk. No tremor or uncontrollable movements. No spasticity or tremor. Strength: Upper Extremities : R L Deltoid 5/5 5/5 Biceps 5/5 5/5 Triceps 5/5 5/5 Wrist Ext 5/5 5/5 Wrist Flx 5/5 5/5 Hand Int 5/5 5/5 Lower Extremities : Hip Flexors 5/5 5/5 Hip Extensors 5/5 5/5 Hip Abductors 5/5 5/5 Straight leg Neg Neg Ankle dorsiflex 5/5 5/5 Ankle Plantar 5/5 5/5 Reflexes : Biceps 2+ 2+ Triceps 2+ 2+ Wrist 2+ 2+ Patellar 2+ 2+ Achilles 2+ 2+ Cerebellar Function : Normal finger to nose. Normal rapid alternating movements. No ataxia. Negative Romberg. Gait and Station: Compensated gait. Wheelchair.. Pulmonary: Lungs without cough, audible wheeze. Respirations unlabored. Cardiac: Regular rate and rhythm. No murmer, gallop or rub. IMAGING: MRI Brain WO/W IVCON performed on 10/02/24 demonstrates: IMPRESSION: Interval development of sizable fluid collection within right-sided scalp along right frontotemporal lobe measuring 70 x 27 x 16 mm. There appears to be possible continuity to the adjacent extra-axial space, as detailed above. Leading differential consideration includes pseudomeningocele. Superimposed infection would not be excluded. Clinical correlation and neurosurgical follow-up is recommended. No evidence of acute infarct, acute lobar hemorrhage, or significant mass effect. Scattered punctate microhemorrhages within supratentorial and infratentorial brain appears unchanged since 04/18/2024. This is most likely chronic microhemorrhages. Chronic small vessel ischemic white matter disease and diffuse cerebral volume loss. Chronic lacunar infarcts within bilateral basal ganglia. Additional chronic findings, as detailed above. ASSESSMENT/PLAN: 1. Traumatic subdural hematoma with loss of consciousness, sequela (HCC) - ICD9: 907.0, ICD10: S06.5X9S (primary diagnosis) Patient is status post subdural hematoma at which time he also was found to have a meningioma underneath that hematoma that was excised and was grade 1. We recently had a report of an MRI scan that was done which showed a fluid collection in the right temporal region where her surgery was and there was concern about whether this is benign or whether it was an infection. We brought the patient into check him. He is awake and alert and reports that his speech is better. He was communicating with his on the telephone by text. He had no cranial nerve deficit I noted no evidence of infection in the area of the craniotomy. The site is revealing a fluid collection which is very fluctuant and the gravity dependent. There is no redness or tenderness. His neck is supple he is afebrile. I do not think he has an infection. It is possible that he had blood accumulation when he was put on anticoagulants for DVT or this could be cerebrospinal fluid communicating with the subgaleal space. No surgical intervention was recommended. I told him to come back and see us in [address] scan of the head so we can follow-up on this finding. - CT BRAIN AMBERLY VOSS 2. Intracranial meningioma (HCC) - ICD9: 225.2, ICD10: D32.0 - CT BRAIN WO BIPIN Ko MD FOLLOW UP: Return in about 2 weeks (around 10/27/2024) for review of imaging and plan of care. Please Note: This note has been partially generated using [employer], a speech recognition software program, and may contain errors including punctuation, grammar, spelling, gender, and inappropriate words or phrases that pertain to the system. documented in this encounter [facility] 10-13-2024 Note [facility] 10-10-2024 Telephone encounter Note Contacted nurse, Elizabeth at [facility] [phone] after receiving results of recent MRI brain. She reported that Alfonzo is neurologically unchanged. No new weakness, lethargy, fever. His craniotomy incision is well healed without any redness, swelling, drainage or dehiscence. He was recently started on Eliquis for DVT, PE and taking 5mg daily. Discussed that Dr. Ko would like to see Alfonzo in the office for evaluation. Will have our schedulers reach out to [facility] and scheduled an appointment for this week. Agata Del Toro APRN-RESIDENTIAL REAL ESTATE ASSISTANT Neurosurgery Nurse Practitioner [facility] 10:37 AM 10/10/2024 [facility] Work Phone: 10-10-2024 Miscellaneous Notes Contacted nurse, Elizabeth at [facility] [phone] after receiving results of recent MRI brain. She reported that Alfonzo is neurologically unchanged. No new weakness, lethargy, fever. His craniotomy incision is well healed without any redness, swelling, drainage or dehiscence. He was recently started on Eliquis for DVT, PE and taking 5mg daily. Discussed that Dr. Ko would like to see Alfonzo in the office for evaluation. Will have our schedulers reach out to [facility] and scheduled an appointment for this week. Agata Del Toro APRN-CHAN Neurosurgery Nurse Practitioner [facility] 10:37 AM 10/10/2024 documented in this encounter [facility] 10-04-2024 Telephone encounter Note MRI results as below. Scan was ordered for routine follow up of microhemorrhages. Dr. Ko, can your office get him in to see someone? He is s/p traumatic subdural hematoma evacuation as well as excision of meningioma in April 2024, you last saw him June 2024. IMPRESSION: Interval development of sizable fluid collection within right-sided scalp along right frontotemporal lobe measuring 70 x 27 x 16 mm. There appears to be possible continuity to the adjacent extra-axial space, as detailed above. Leading differential consideration includes pseudomeningocele. Superimposed infection would not be excluded. Clinical correlation and neurosurgical follow-up is recommended. [facility] Work Phone: 10-04-2024 Miscellaneous Notes MRI results as below. Scan was ordered for routine follow up of microhemorrhages. Dr. Ko, can your office get him in to see someone? He is s/p traumatic subdural hematoma evacuation as well as excision of meningioma in April 2024, you last saw him June 2024. IMPRESSION: Interval development of sizable fluid collection within right-sided scalp along right frontotemporal lobe measuring 70 x 27 x 16 mm. There appears to be possible continuity to the adjacent extra-axial space, as detailed above. Leading differential consideration includes pseudomeningocele. Superimposed infection would not be excluded. Clinical correlation and neurosurgical follow-up is recommended. documented in this encounter [facility] 10-02-2024 History of Present illness Narrative Radiology Service Progress Note PATIENT NAME: Alfonzo Simon DATE OF SERVICE: October 02, 2024 TIME: 8:33 AM PATIENT IDENTITY VERIFICATION COMPLETED USING TWO (2) IDENTIFIERS: Name and Date of confirmed by patient verbally. FALL SCREENING: Has the patient had 2 falls in the last year or 1 fall with injury or currently using an Ambulatory Assistive Device (Walker, Cane, Wheelchair, Crutches, etc.)? No PATIENT GENDER DATA: Male PATIENT RELEVANT IMPLANT DATA REVIEWED: Yes PATIENT PRESENTS WITH AN IMPLANTABLE OR ATTACHED DIRECTOR [facility]: No RADIOLOGY DEPARTMENT: MR; Exam(s) Completed: Head: Routine Brain PERIPHERAL IV DATA: Not applicable SIGNED BY: RT Bert(R) October 02, 2024 8:33 AM documented in this encounter [facility] 10-02-2024 Note [facility] 09-29-2024 Note [facility] 09-29-2024 History of Present illness Narrative TRANSITION CARE MANAGEMENT (TCM) DISCHARGE TO POST ACUTE FACILITY POST ACUTE TRANSFER SUMMARY: -Pt discharged from [facility] on 09/28/2024. -Post Acute Facility Admitted to [facility] -Admitted for: Pulmonary Embolism Madina Amador RN September 29, 2024 documented in this encounter [facility] 09-28-2024 Note [facility] 09-27-2024 Note [facility] 09-26-2024 Note [facility] 09-25-2024 Note [facility] 09-24-2024 Note [facility] 09-24-2024 Note [facility] 09-23-2024 Note SARS-COV-2 (AGENT OF COVID-19) RNA: Not detected INFLUENZA A RNA: Not detected INFLUENZA B RNA: Not detected RESPIRATORY SYNCYTIAL VIRUS (RSV) RNA: Not detected [facility] Comment on above: Performed By: #### [id number] ####[facility] LABORATORYCLIA [id number] [address] [place] 09-21-2024 Telephone encounter Note Reason for Call: High Blood Pressure Outcome: 24 HR Recommendation. Interim Care Advice given. Confer patient to the [facility] for scheduling. Reason for Disposition Systolic BP >= 180 OR Diastolic >= 110 Answer Assessment - Initial Assessment Questions 1. BLOOD PRESSURE: 160/110 and the same reading when rechecked 2. ONSET: 25 minutes ago 3. HOW: manual blood pressure by physical therapist 4. HISTORY yes; many years 5. MEDICINES: just took the dose of hydralazine; patient reports that his blood pressures have been high even when no doses are missed 6. OTHER SYMPTOMS: none menstrual period?" Protocols used: Blood Pressure - [id number] [facility] 09-21-2024 Miscellaneous Notes Reason for Call: High Blood Pressure Outcome: 24 HR Recommendation. Interim Care Advice given. Confer patient to the [facility] for scheduling. Reason for Disposition Systolic BP >= 180 OR Diastolic >= 110 Answer Assessment - Initial Assessment Questions 1. BLOOD PRESSURE: 160/110 and the same reading when rechecked 2. ONSET: 25 minutes ago 3. HOW: manual blood pressure by physical therapist 4. HISTORY yes; many years 5. MEDICINES: just took the dose of hydralazine; patient reports that his blood pressures have been high even when no doses are missed 6. OTHER SYMPTOMS: none menstrual period?" Protocols used: Blood Pressure - [id number] documented in this encounter [facility] 09-20-2024 Telephone encounter Note Noted [facility] 09-20-2024 Miscellaneous Notes Noted Is scheduled to have some home PT/OT, if falls continue he will need to be admitted to SNF for more assistance and PT. Karthik Holliday APRN.CHAN September 20, 2024 3:39 PM Paula BARRETT from [facility] called in and left message. States Mejía has reported to falls since his return home and had to call 911 to assist him up. She had documented, no bruising, no pain and no injuries noted. FYI documented in this encounter [facility] 09-20-2024 Telephone encounter Note Is scheduled to have some home PT/OT, if falls continue he will need to be admitted to SNF for more assistance and PT. Karthik Holliday APRN.CHAN September 20, 2024 3:39 PM [facility] 09-20-2024 Telephone encounter Note Paula BARRETT from [facility] called in and left message. States Mejía has reported to falls since his return home and had to call 911 to assist him up. She had documented, no bruising, no pain and no injuries noted. FYI [facility] 09-18-2024 Note [facility] 09-18-2024 History of Present illness Narrative Transitional Care Management TCM Eligibility Documentation Program: Transitional Care Management Status: Enrolled Effective Dates: 09/11/2024 - present Responsible Staff: Inna Santillan RN Discharge date: 09/08/2024 (Program start) Date of initial contact: 09/11/2024 Initial contact Target status: Successful; Contact made within 2 business days post-discharge Summary Discharged from: [facility] Admit Date: 04/15/2024, 06/04/2024 Admitted for: Subdural hematoma and failure to thrive. Karthik Holliday APRN.RESIDENTIAL REAL ESTATE ASSISTANT Provider Documentation Alfonzo Simon is a 64 year old male here today for a follow up to recent hospitalization. I have reviewed the patient's hospital course including diagnostic testing performed during this hospitalization, their discharge medications, and my assessment and plan with the patient and any family members present at today's visit. HPI: Walking with the use of a walker on today's visit. Home health care to follow for PT/OT. Follow up with Neurology on 10/20/2024. Reports a fungal rash under the panis and in the groin. Review of Systems Constitutional: Negative. HENT: Negative. Eyes: Negative. Respiratory: Negative. Cardiovascular: Negative. Gastrointestinal: Negative. Genitourinary: Negative. Musculoskeletal: Negative. Skin: Positive for rash. Neurological: Negative. Endo/Heme/Allergies: Negative. Psychiatric/Behavioral: Negative. Vitals There were no vitals taken for this visit. Physical Exam Vitals reviewed. Constitutional: General: He is not in acute distress. Appearance: Normal appearance. He is obese. HENT: Head: Normocephalic and atraumatic. Eyes: Extraocular Movements: Extraocular movements intact. Conjunctiva/sclera: Conjunctivae normal. Pupils: Pupils are equal, round, and reactive to light. Cardiovascular: Rate and Rhythm: Normal rate. Pulses: Normal pulses. Heart sounds: Normal heart sounds. Pulmonary: Effort: Pulmonary effort is normal. No respiratory distress. Breath sounds: Normal breath sounds. No wheezing, rhonchi or rales. Musculoskeletal: General: Normal range of motion. Cervical back: Normal range of motion and neck supple. Skin: General: Skin is warm and dry. Findings: Rash (panis and groin fungal rash.) present. Neurological: General: No focal deficit present. Mental Status: He is alert and oriented to person, place, and time. Mental status is at baseline. Motor: Weakness present. Gait: Gait abnormal. Psychiatric: Mood and Affect: Mood normal. Behavior: Behavior normal. ASSESSMENT/PLAN: 1. Hospital discharge follow-up - ICD9: V67.59, ICD10: Z09 (primary diagnosis) See below 2. Traumatic subdural hematoma with loss of consciousness, subsequent encounter - ICD9: V58.89, 852.26, ICD10: S06.5X9D Resolved, following with Neurology. - PARKING FOR HANDICAPPED 3. Thyroid nodule - ICD9: 241.0, ICD10: E04.1 - US THYROID/PARATHYROID - THYROID STIMULATING HORMONE 4. Screening for depression - ICD9: V79.0, ICD10: Z13.31 - DEPRESSION SCREENING 5. Encounter for screening examination for other mental health and behavioral disorders - ICD9: V79.8, ICD10: Z13.39 - ANXIETY SCREENING 6. Obesity, Class II, BMI 35-39.9 - ICD9: 278.00, ICD10: E66.812 7. Essential hypertension - ICD9: 401.9, ICD10: I10 - Uncontrolled - Continue current medications - Recommend home blood pressure monitoring, to bring results to next visit - Encouraged sodium restriction, DASH or Mediterranean diet - Recommend regular aerobic exercise - COMPLETE BLOOD COUNT AND DIFFERENTIAL - COMPREHENSIVE METABOLIC PANEL - LIPID PANEL BASIC - VITAMIN D 25 HYDROXY - ALBUMIN/CREATININE RATIO, URINE - HEMOGLOBIN A1C 8. Benign prostatic hyperplasia with lower urinary tract symptoms, symptom details unspecified - ICD9: 600.01, ICD10: N40.1 - PROSTATE SPECIFIC ANTIGEN, FREE 9. Dyslipidemia - ICD9: 272.4, ICD10: E78.5 - Control undetermined, due for labs - Counseled on healthy diet and regular exercise - Discussed need for and benefit of weight loss. BMI 39.06 kg/(m^2) - LIPID PANEL BASIC - HEMOGLOBIN A1C 10. Weakness - ICD9: 780.79, ICD10: R53. - PARKING FOR HANDICAPPED 11. Parkinson's disease without dyskinesia, unspecified whether manifestations fluctuate (HCC) - ICD9: 332.0, ICD10: G20.A1 - PARKING FOR HANDICAPPED 12. Fungal rash of trunk - ICD9: 111.9, ICD10: B36.9 - NYSTATIN 100,000 UNIT/GRAM TOPICAL POWDER 13. Obesity, Class III, BMI 40-49.9 (morbid obesity) (HCC) - ICD9: 278.01, ICD10: E66.01 Weight decreasing - Behavioral intervention Karthik Holliday APRN.CNP September 18, 2024 12:51 PM documented in this encounter [facility] 09-11-2024 Note Radha العراقي [facility] 09-11-2024 History of Present illness Narrative TRANSITIONAL CARE MANAGEMENT (TCM) COMMUNITY MONITORING PROGRAM - RADHA Provider Action/FYI: TCM rehab follow up 09/18/24 with Karthik Holliday CNP SUMMARY: Pt discharged from [facility] on 09/08/24. Admitted for: Failure to Thrive Patient seen Inpatient DEBBI Visit? No. Patient seen ICARE Program? No. Contact made with patient: Yes Hi my name is Inna Santillan RN and I am calling from the [facility] Radha العراقي on behalf of your PCP, Krathik Holliday APRN.CNP I understand you were recently in the hospital so I am calling to check in with you to ensure you are feeling well now that you re home. Do you mind if I ask you a few questions related to your hospital stay and well-being Yes Contact with patient post discharge, spoke to patient. Patient identified by name and . Do you feel your health is BETTER, WORSE, or the SAME since leaving the hospital? Better ACTION TAKEN: Patient indicated symptoms are better or same, no action required. Continue outreach. N/A MEDICATIONS: Many patients have questions or concerns about their medications once they are home. Do you have any questions about taking your medications or which medication you should be on? No Do you need any medication refills at this time, including any of the medications you might take only when needed? No ACTION TAKEN: No action required For RNs or Pharmacy completing outreach ONLY, was a medication review completed? Yes Current/Discharged Medications reviewed: Yes Medication List Medication Directions Comments Action/Plan acetaminophen (TYLENOL) 500 mg tablet Take 2 tablets by mouth every 8 hours as needed for pain. amLODIPine (NORVASC) 5 mg tablet Take 2 tablets by mouth once daily. aspirin 81 mg chewable tablet Take 1 tablet by mouth once daily. atorvastatin (LIPITOR) 20 mg tablet Take 1 tablet by mouth once daily. buPROPion XL (WELLBUTRIN XL) 300 mg 24 hr tablet Take 300 mg by mouth once daily. ergocalciferol 50,000 unit capsule (VITAMIN D2, DRISDOL) Take 1 capsule by mouth one time a week for 6 doses. hydralazine HCl (HYDRALAZINE ORAL) Take 40 mg by mouth every 8 hours. lisinopril (ZESTRIL) 40 mg tablet Take 1 tablet by mouth once daily. melatonin 3 mg capsules Take 3 mg by mouth at bedtime as needed for insomnia. miconazole 2 % powder Apply 1 application to affected area two times a day. senna-docusate (SENNA-S) 8.6-50 mg per tablet Take 1 tablet by mouth two times a day. Patient taking differently: Take 1 tablet by mouth two times a day as needed for constipation. tamsulosin (FLOMAX) 0.4 mg TAKE 1 CAPSULE AT BEDTIME SOCIAL: We would like to make sure you have what you need so that your basics needs are met - including your personal safety. HEALTH LEADS SCREENING TOOL QUESTIONS: Do you often feel you lack companionship? No Do you ever need help reading or understanding hospital materials? No In the last 12 months, have you changed how you take medications to save money? No In the past 12 months, has lack of transportation kept you from medical appointments, work or getting things you need like food, or supplies? No In the last 12 months, did you ever eat less than you felt you should because there wasn't enough money for food? No During the winter, do you anticipate having a problem paying your heating bill? No In the next 2 months, are you worried you might not have stable housing? No Would you like to speak with a social work logistics team leader to help give you support for any of these needs? No It can be normal to feel anxious or down during a time like this. Would you like to talk to a mental health professional about how you have been feeling? No ACTION TAKEN: No action taken DISCHARGE INTRUCTIONS: Your discharge instructions / After Visit Summary (AVS) are important in guiding you through the recovery process. Do you have any questions related to your discharge instructions? No Do you have all the necessary equipment and supplies at home? Yes ACTION TAKEN: No action required WRAP AROUND SERVICES: N/A Patient educated on importance of primary care provider follow up visit as well as specialty provider follow up visits as indicated. Inform the patient that if they have any questions or concerns prior to that appointment, to call their Primary Care Provider 's office right away. Primary care provider first education provided. I would like to help you schedule a hospital follow-up virtual or telephone visit with your PCP. ACTION TAKEN: TCM Primary Care Provider Visit Scheduled: Yes - Appt date: 09/18/24 with Karthik Holliday CNP Your doctor would like us to remind you of the recommendations regarding the coronavirus (Covid19) outbreak: Avoid public places as much as possible. Avoid close contact (within 6 feet) with others you don't live with, especially if they are sick. Stay home if you are sick. Wash your hands regularly for at least 20 seconds with soap and water. Wear a cloth mask in public places to help reduce community spread. Do not go to your Doctor's office unless instructed to do so. For any non-emergency symptoms, call your Doctor's office to get instructions on how to manage (we might recommend a telephone or virtual visit). For emergency symptoms, proceed to Emergency Department as usual but inform them of cough and fever symptoms [place] if present (or call on the way if possible). Inna Santillan RN documented in this encounter [facility] 09-11-2024 History of Present illness Narrative Discharged from [facility] on 09/08/2024 to home. PCC notified. Madina Amador RN September 11, 2024 documented in this encounter [facility] 09-11-2024 Note HNO ID: [id number] Author: MADINA AMADOR RN Service: ? Author Type: Registered Nurse Type: Progress Notes Filed: 09/11/2024 07:39 Note Text: [facility]24 to home. PCC notified. Madina Amador RN September 11, 2024 [facility] 07-05-2024 Telephone encounter Note Last OV on 01/31 next OV on 08/04 med pend [facility] 07-05-2024 Miscellaneous Notes Last OV on 01/31 next OV on 08/04 med pend documented in this encounter [facility] 06-20-2024 History of Present illness Narrative NEUROSURGERY POST OP NOTE Dr. Leonard Ko MD, [facility] Date of visit: June 20, 2024 Patient Name: Mr.Kevin Myrna Simon Date of : 1960 Current Age: [age] year old MRN/E# [id number] Last Office Visit: 05/23/2024 SURGERY: Right frontal craniotomy for evacuation of SDH and excision of tumor on 04/16/[address] Ko. FINAL DIAGNOSIS A. Brain tumor, excision: - Meningioma, meningothelial type (grade 1). See comment. PRE-SURGICAL SYMPTOMS: Confusion, difficulty word finding SURGICAL RISK: Smoker: Never Diabetic: No Anticoagulants / Antiplatelets: ASA 81 mg Occupation: NA The patient presents for a post operative visit with imaging (CT B) for evaluation. This is a 64 year old male with a PMHx of BPH, HTN, morbid obesity, parkinsonism and sleep apnea who was seen for consult at [facility] on 04/16/24 after transfer from [facility] for a SAH. Per patients , the patient had fallen the evening before and was unable to get up. EMS assisted with lift and patient went to bed at home. The following day he was noted to be confused with difficulty word finding/expressive aphasia. Imaging demonstrated a right frontotemporal SDH with MLS and right frontal cortical sulci SAH. He denied use of blood thinning medications. He was started on Keppra 1g BID and monitored in the ICU with frequent neuro checks. He was taken to the OR in the morning for evacuation of the bleed as noted above. Intra-op there was note of a tumor suspected to be a meningioma and this was resected as well. His post op course was complicated by acute ischemic stroke with bilateral cortical infarcts, bradycardia, HTN. He was evaluated by stroke and cleared to begin low dose ASA 04/22/24. Once medically stable he was cleared for discharge to rehab. Recommendation was to follow up for post op visit and suture removal. He was seen on 05/09/24 and reported that he was doing well. He denied denies headache, visual changes, speech deficits, seizure activity, motor or sensory deficits. Neurologically he continued to have mild expressive deficits and left sided weakness. Incision was well healed, sutures were removed at rehab. There was not note of infection. Pathology was discussed and recommendation was to follow up with CT brain for continued post operative monitoring. He was last seen in the office on 05/23/2024 and reported that he continued to do well. He was residing in [facility] and participating in PT/OT/ST. He was moving his left side much better and his speech was improved. He continued to demonstrate left-sided weakness on exam was in a wheelchair but stated that he was ambulating with assist at rehab. He reported that he had an appointment at the stroke clinic in the next week or 2 and he was told if he needed to be on long-term anticoagulation that was fine from a neurosurgical standpoint. CT was reviewed and showed improvement in the left sided chronic subdural hematoma. There was no evidence of acute hemorrhage noted. Given the residual fluid recommendation was to follow-up in [address] prompting his visit today. Since last visit he states he is overall doing well. He is gradually improving as the days go on. He is participating in PT/OT and ST and his speech has improved. He presents for image review, evaluation and plan of care. INCISION: Healed PAST MEDICAL HISTORY No date: Atrial fibrillation (HCC) 05/25/2016: Benign prostatic hyperplasia with lower urinary tract symptoms 05/25/2016: Bilateral lower extremity edema No date: Bladder mass 05/25/2016: Bradycardia 11/08/2008: Colon polyp Comment: benign 05/25/2016: Essential hypertension No date: Obesity, morbid, BMI 40.0-49.9 (HCC) No date: Parkinsonism (HCC) No date: Sleep apnea Comment: no machine No date: Subdural hematoma (HCC) 05/25/2016: Systolic murmur 05/25/2016: Vitamin D deficiency PAST SURGICAL HISTORY 10/22/2020: COLONOSCOPY GEN ANES Comment: Dr. Iqbal x3 last one in 03/2021: CYSTOSCOPY Comment: Bladder tumor 2017: OTHER SURGICAL HISTORY (PLEASE SPECIFY) HX Comment: Prostate surgery TURP FAMILY HISTORY Problem Relation Age of Onset Diabetes Father from complications from DM. ALLERGIES No Known Allergies Current Outpatient Medications Medication Sig Dispense Refill acetaminophen (TYLENOL) 500 mg tablet Take 2 tablets by mouth every 8 hours as needed for pain. buPROPion XL (WELLBUTRIN XL) 300 mg 24 hr tablet Take 300 mg by mouth once daily. melatonin 3 mg capsules Take 3 mg by mouth at bedtime as needed for insomnia. hydralazine HCl (HYDRALAZINE ORAL) Take 40 mg by mouth every 8 hours. amLODIPine (NORVASC) 5 mg tablet Take 2 tablets by mouth once daily. aspirin 81 mg chewable tablet Take 1 tablet by mouth once daily. ergocalciferol 50,000 unit capsule (VITAMIN D2, DRISDOL) Take 1 capsule by mouth one time a week for 6 doses. 6 capsule 0 miconazole 2 % powder Apply 1 application to affected area two times a day. senna-docusate (SENNA-S) 8.6-50 mg per tablet Take 1 tablet by mouth two times a day. tamsulosin (FLOMAX) 0.4 mg Take 1 capsule by mouth daily at bedtime. 90 capsule 1 lisinopril (ZESTRIL) 40 mg tablet Take 1 tablet by mouth once daily. 90 tablet 1 atorvastatin (LIPITOR) 20 mg tablet Take 1 tablet by mouth once daily. 90 tablet 1 No current facility-administered medications for this visit. Review of Systems Constitutional: Negative for chills, diaphoresis (Negative for night sweats.) and fever. HENT: Negative for ear discharge and rhinorrhea. Eyes: Negative for discharge. Respiratory: Negative for cough, shortness of breath and wheezing. Cardiovascular: Negative for chest pain, palpitations and leg swelling. Gastrointestinal: Negative for constipation, diarrhea, nausea and vomiting. Endocrine: Negative for cold intolerance and heat intolerance. Genitourinary: Negative for frequency. Negative for urinary incontinence and urinary retention. Musculoskeletal: Positive for gait problem. Negative for joint swelling, myalgias and neck pain. Skin: Negative for rash (Negative for hives and skin lesions.). Allergic/Immunologic: Negative for environmental allergies and food allergies. Negative for contact allergy, seasonal allergies. Neurological: Positive for weakness. Negative for dizziness, seizures, syncope, light-headedness, numbness (Negative for numbness in extremities.) and headaches. Hematological: Does not bruise/bleed easily. Psychiatric/Behavioral: The patient is not nervous/anxious. Negative for depression. PAIN EVALUATION No data found in the last 1 encounters. BP 144/84 Pulse 63 Resp 18 Ht 6' (1.829 m) SpO2 97% BMI 41.08 kg/m PHYSICAL EXAM: Mental State : Alert, memory function unremarkable. Attention span and concentration normal for patient's age. Speech normal, no receptive or expressive speech deficit. Recent and remote memory normal. Orientation : Oriented to person, place and time. Higher Cortical Function : Intact speech and language. Spontaneous speech and comprehension normal. Fund of knowledge intact for pt level of education. Cranial Nerves : II: No visual field cut no blurring, Makes and sustains eye contact III, IV, : Normal, no double vision or drooping. Pupils equal and reactive to light. Extraocular muscles intact. No nystagmus V: Normal sensation on the face, normal jaw movements VII: No paresis on either side VIII: No gross hearing deficit IX: Good and equal shoulder shrugs XII: Tongue midline, no fasciculations Sensory: SILT. Normal Sensation in upper and lower extremities and trunk to touch and noxious stimuli. Motor: Normal muscle tone and bulk. No tremor or uncontrollable movements. No spasticity or tremor. Strength: Upper Extremities : R L Deltoid 5/5 4/5 Biceps 5/5 4/5 Triceps 5/5 4/5 Wrist Ext 5/5 4/5 Wrist Flx 5/5 4/5 Hand Int 5/5 3.5/5 Lower Extremities : Hip Flexors 5/5 4/5 Hip Extensors 5/5 4/5 Hip Abductors 5/5 4/5 Straight leg Neg Neg Ankle dorsiflex 5/5 4/5 Ankle Plantar 5/5 4/5 Cerebellar Function : Normal finger to nose. Normal rapid alternating movements. No ataxia. Gait and Station: Compensated gait. Wheelchair. Pulmonary: Lungs without cough, audible wheeze. Respirations unlabored. Cardiac: Regular rate and rhythm. No murmer, gallop or rub. IMAGING: CT Brain WO IVCON performed today 06/20/24 demonstrates: Report is pending but to me there is no acute bleed in the subarachnoid space or subdural space. I see postop changes. ASSESSMENT/PLAN: 1. Traumatic subdural hematoma with loss of consciousness, sequela (HCC) - ICD9: 907.0, ICD10: S06.5X9S Patient is status post traumatic subdural hematoma evacuation as well as excision of meningioma at the site of the surgery and subsequent development of ischemic stroke findings by scan and neurologic exam. He is making progress and apparently had fallen after his discharge from rehab and ended up back in rehab now. He is awake alert oriented x 3. He has mild weakness in the left upper and left lower extremity and by what I can tell about his speech it has improved compared to the preop status. We will check him again in 4 months from now. His meningioma has been graded as 1. Leonard Ko MD FOLLOW UP: Return in about 4 months (around 10/20/2024) for routine visit. Please Note: This note has been partially generated using [employer], a speech recognition software program, and may contain errors including punctuation, grammar, spelling, gender, and inappropriate words or phrases that pertain to the system. documented in this encounter [facility] [place] 06-20-2024 Note Radha العراقي [facility] 06-08-2024 Note HNO ID: [id number] Author: ?, ?, ? Service: ? Author Type: ? Type: Progress Notes Filed: 06/08/2024 11:45 Note Text: Per [facility] Eligibility report patient meets [facility] criteria: delirium and ICU stay >=72 hours, but found through chart review was never under the care of or seen by [facility] pulmonary/critical care staff in the Surgical ICU during the [place]15- [place] admission. Not enrolled in the [facility] Program. [facility] Enrollment Status [facility] Call Attempt None Enrolled in [facility] Program? No - Does not meet [facility] Criteria [facility] 06-08-2024 History of Present illness Narrative Per [facility] Eligibility report patient meets [facility] criteria: delirium and ICU stay >=72 hours, but found through chart review was never under the care of or seen by [facility] pulmonary/critical care staff in the Surgical ICU during the 04/15- [place] admission. Not enrolled in the [facility] Program. [facility] Enrollment Status [facility] Call Attempt None Enrolled in [facility] Program? No - Does not meet [facility] Criteria documented in this encounter [facility] [place] 06-08-2024 Note [facility] 06-08-2024 History of Present illness Narrative TRANSITION CARE MANAGEMENT (TCM) DISCHARGE TO POST ACUTE FACILITY POST ACUTE TRANSFER SUMMARY: -Pt discharged from [facility] on 06/07/2024. -Post Acute Facility Admitted to [facility] -Admitted for: Failure to Thrive Office PCC will follow at discharge. Madina Amador RN June 08, 2024 documented in this encounter [facility] [place] 06-08-2024 Note Patient Outreach (PU [facility]MMN) ALFONZO SIMON ([id number]) 1960 M Date Time Provider Department 06/08/24 JEREMIAHSANDOR MANUEL PULMMN During your visit today, we recorded the following information about you: JeremiahManuel herrera 06/08/2024 11:45 AM Signed Per [facility] Eligibility report patient meets [facility] criteria: delirium and ICU stay >=72 hours, but found through chart review was never under the care of or seen by [facility] pulmonary/critical care staff in the Surgical ICU during the 04/15- [place] admission. Not enrolled in the [facility] Program. [facility] Enrollment Status [facility] Call Attempt None Enrolled in [facility] Program? No - Does not meet [facility] Criteria Allergies As of Date: 06/08/2024 (No Known Allergies) Date Reviewed: 06/04/2024 Reviewed by: Pauly Price RN - Fully Assessed Prescriptions as of 06/08/2024 - acetaminophen (TYLENOL) 500 mg tablet Take 2 tablets by mouth every 8 hours as needed for pain. - buPROPion XL (WELLBUTRIN XL) 300 mg 24 hr tablet Take 300 mg by mouth once daily. - melatonin 3 mg capsules Take 3 mg by mouth at bedtime as needed for insomnia. - hydralazine HCl (HYDRALAZINE ORAL) Take 40 mg by mouth every 8 hours. - amLODIPine (NORVASC) 5 mg tablet Take 2 tablets by mouth once daily. - aspirin 81 mg chewable tablet Take 1 tablet by mouth once daily. - ergocalciferol 50,000 unit capsule (VITAMIN D2, DRISDOL) Take 1 capsule by mouth one time a week for 6 doses. - miconazole 2 % powder Apply 1 application to affected area two times a day. - senna-docusate (SENNA-S) 8.6-50 mg per tablet Take 1 tablet by mouth two times a day. - tamsulosin (FLOMAX) 0.4 mg Take 1 capsule by mouth daily at bedtime. - lisinopril (ZESTRIL) 40 mg tablet Take 1 tablet by mouth once daily. - atorvastatin (LIPITOR) 20 mg tablet Take 1 tablet by mouth once daily. Problem List As Of Date 06/08/2024 Noted Resolved Essential hypertension [I10] 05/25/2016 Benign prostatic hyperplasia with lower urinary*05/25/2016 Vitamin D deficiency [E55.9] 05/25/2016 Bradycardia [R00.1] 05/25/2016 Systolic murmur [R01.1] 05/25/2016 Bilateral lower extremity edema [R60.0] 05/25/2016 12/25/2020 Dyslipidemia [E78.5] 02/10/2018 HARJEET (obstructive sleep apnea) [G47.33] 02/10/2018 Obesity, Class III, BMI >= 40 E66.01 [E66.01] 02/13/2018 Obesity, Class II, BMI 35-39.9 [E66.9] 06/28/2018 12/25/2020 Closed fracture of left tibial plateau [S82.142*09/13/2019 12/25/2020 Closed fracture of shaft of left ulna with rout*10/03/2019 Closed fracture of right tibial plateau [S82.14*10/03/2019 Frequency of urination [R35.0] 12/23/2020 Nocturia [R35.1] 12/23/2020 Knee instability, unspecified laterality [M25.3*12/25/2020 General weakness [R53.1] 01/20/2021 Physical deconditioning [R53.81] 01/20/2021 Liver hemangioma [D18.03] 06/04/2021 Weakness [R53.1] 09/02/2022 Parkinson disease (HCC) [G20.A1] 09/05/2022 Bilateral pneumonia [J18.9] 10/30/2022 Leukocytosis [D72.829] 10/30/2022 JASMYN (acute kidney injury) (HCC) [N17.9] 10/30/2022 Acute encephalopathy [G93.40] 10/30/2022 Parkinsonian features [R29.818] 10/30/2022 Bilateral upper lobe community acquired pneumon*10/30/2022 Pneumonia due to influenza A virus [J10.00] 11/12/2022 Subdural hematoma (HCC) [S06.5XAA] 04/15/2024 Fall [W19.XXXA] 04/18/2024 SAH (subarachnoid hemorrhage) (HCC) [I60.9] 04/18/2024 Brain mass [G93.89] 04/18/2024 Traumatic subdural hematoma with loss of consci*05/09/2024 Intracranial meningioma (HCC) [D32.0] 05/09/2024 Failure to thrive in adult [R62.7] 06/04/2024 H/O: CVA (cerebrovascular accident) [Z86.73] 06/07/2024 Encounter Status:Closed by KONSTANTIN MANUEL on 06/08/24 [facility] 06-07-2024 Note [facility] 06-07-2024 Note [facility] 06-06-2024 Note [facility] 06-06-2024 Note [facility] 06-05-2024 Note [facility] 05-30-2024 Instructions Anya Huang APRN.CHAN - 05/30/2024 10:14 AM EDT Images from the original note were not included. Regarding your visit with Nurse Practitioner Anya Huang today at the [facility] we discussed the following: Impression: Bilateral cortical infarcts. 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 Geronimo. Anticoagulation is likely high risk with this patient given moderate burden of cerebral microhemorrhages. Likely need to consider left atrial appendage closure for atrial fibrillation. I will call you after this, then will coordinate with Cardiology Can remove event monitor and mail back Continue Aspirin daily for secondary stroke prevention. Continue atorvastatin for secondary stroke prevention and LDL goal below 70. Continue monitoring blood pressure for goal below 130/80. Follow up in 2-3 months -Regular follow up with primary care doctor for health maintenance -Assist ensuring blood pressure and cholesterol are at goal -Screen and manage diabetes -Lifestyle modification -- Establish goals -Diet -Regular Exercise as discussed -Establish weight goals with primary care doctor -Additional stroke reduction measures and stroke warning signs are listed below. Please do not hesitate to call if you have any questions Anya Huang CNP [facility] [place] Nurse Practitioner [place], [place] [address] Office: [phone] Appointments: [phone] Stroke Signs and Symptoms: *Stroke is a medical emergency. Know the warning signs of stroke: Sudden numbness or weakness of the face, arm or leg, especially on one side of the body Sudden confusion, trouble speaking, or understanding Sudden trouble seeing in one eye, or both eyes Sudden trouble walking, dizziness, loss of balance, or coordination Sudden severe headache with no known cause *If you, or someone with you, has one or more of these signs, don't delay! Immediately call 911, or the emergency medical services (EMS) number so an ambulance can be sent for you. Also, check the time so that you will know when the symptoms first appeared. It is very important to take immediate action, every second counts. Medical treatment may be available if action is taken early enough. ~~~~~~~~~~~~~~~~~~~~~~~~~~~~~~~~~~ ~~~~~~~~~~~~~~~~~~~~~~~~~~~~~~~~~~ ~~~~ General Guidelines to Help Reduce Risk of Recurrent Stroke Blood Pressure -Blood Pressure reduction is recommended for both prevention of recurrent stroke and prevention of other vascular events in persons who have had an ischemic stroke or transient ischemic attack (TIA) and are beyond the first 24 hours. -Several lifestyle modifications have been associated with BP reduction and are a reasonable part of a comprehensive antihypertensive therapy -These modifications include: - salt restriction - weight loss - consumption of a diet rich in fruits, vegetables, and low-fat dairy products - regular aerobic physical activity - limited alcohol consumption Goal: Prehypertension (systolic BP of 120-139 mm Hg or diastolic BP of 80-89 mm Hg): Perform annual BP screening and lifestyle modifications Hypertension: Combine medications with above lifestyle modifications to reach your goal blood pressure as defined above. Monitor your blood pressure at home regularly to ensure you are reaching your goals Diabetes - Maintain good control of diabetes if you have it by working with your primary care physician to adjust medications and lifestyle (diet) modification Cholesterol and Lipid Management - Statin therapy with intensive lipid-lowering effects is recommended to reduce risk of stroke and cardiovascular events among patients with ischemic stroke or TIA who have evidence of atherosclerosis Diet - Limit carbohydrates, saturated and trans fats, sodium, sweets, and red meat - Consume fruits, vegetables, whole grains, low-fat dairy products, skinless poultry, nuts and legumes - Consider the DASH (Dietary Approaches to Stop Hypertension) eating plan - more information: https://www.heart.org/en/healthy-l iving/healthy-eating/eat-smart/nut rition-basics/frv-lzbz-wgu-lifesty le-recommendations Smoking and Tobacco Use (including e-cigarettes) - Strongly recommend against smoking and tobacco use - Counseling, nicotine products, and oral smoking cessation medications are effective for helping smokers quit Alcohol Consumption - Heavy drinkers should eliminate or reduce their consumption of alcohol. - Persons who continue drinking the following may be reasonable: - less than or equal to 2 drinks/day for men - less than or equal to 1 drink/day for non women Exercise - If capable of engaging in physical activity, at least 40 minutes of moderate to vigorous intensity physical exercise, typically defined as vigorous activity sufficient to break a sweat or noticeably raise heart rate, 3-4 days a week (eg, walking briskly, using an exercise bicycle) may be considered to reduce the risk factors and comorbid conditions that increase the likelihood of recurrent stroke - If disability after ischemic stroke, supervision by a healthcare professional, such as a physical therapist or cardiac rehabilitation professional, at least on initiation of an exercise regimen, may be considered Adopted from the [place] [employer] Attack : A Guideline for Healthcare Professionals From the [place] [employer] Guidelines for the Prevention of Stroke in Patients With Stroke or Transient Ischemic - 2013 documented in this encounter [facility] [place] 05-30-2024 History of Present illness Narrative [facility] Established Visit Consultation is requested by: No referring provider defined for this encounter. PCP: Karthik Holliday [address] [place] [address] CEREBROVASCULAR HISTORY Alfonzo Simon is a 64 year old left-handed male presenting for hospital discharge follow up. Admitted to [facility] 04/15-04/25/24. From discharge summary Mr. Alfonzo Simon was directly admitted to [facility] on 04/15/2024 for treatment of injuries sustained during a reported ground level fall that occurred on 04/14/2024. CT imaging revealed the following acute traumatic injuries: 1. Right subdural hematoma measuring up to 13 mm with 5 mm leftward midline shift 2. Right frontal subarachnoid hemorrhage 3. Left lower flank/buttock subcutaneous lobulated hematoma measuring up to 15 cm. Mr. Simon was admitted to the ICU. Neurosurgery was consulted. He would undergo right craniotomy evacuation of his subdural hematoma and excision of an incidentally noted brain tumor suspected to be a meningioma on 04/16/[address] Ko. On the day of his surgery, he was noted to exhibit left upper extremity and aphasia. Neurology was consulted and he was treated for acute ischemic stroke as MRI imaging revealed bilateral cortical infarcts possibly related to subdural hemorrhage with mass effect but concerning for central embolic phenomenon. He also received a tapering course of Decadron and his neurological status improved. It was recommended that he be discharged with an event monitor and daily aspirin. Once determined appropriate from a neurosurgery standpoint, he was started on a daily aspirin 81 mg for stroke prevention (initiated 04/22/2024). He completed a 7-day course of Keppra for seizure prevention. Hypertension was treated with his home Lisinopril 40 mg daily and Norvasc which was increased to 10 mg daily along with as needed hydralazine. Per neurosurgery recommendations, he would require outpatient follow-up with his treating neurosurgery (Dr. Ko) two weeks post-operatively for re-evaluation and craniotomy suture removal (05/02/2024). He would also require follow-up with stroke neurology (05/30/2024). His left flank hematoma was treated expectantly and hemoglobin remained stable. Mr. Simon's admission was complicated by hermosillo catheter placement that created a false passage. For that, urology was consulted and, per there recommendations, his hermosillo catheter remained in place for just over 1 week. A voiding trial was ordered on 04/24/2024 which he passed and was able to urinate on his own following catheter removal. It was recommended that he follow-up with urology as an outpatient following hospital discharge. Mr. Simon was evaluated by speech therapy for both diet recommendations and cognitive evaluation. He was cleared for a soft and bite-sized diet with thin liquids. His cognition gradually improved throughout his admission. He was evaluated by physical and occupational therapy who recommended inpatient rehab at discharge. Mr. Simon would be discharged to [facility] rehab in stable condition on 04/25/2024. He would require outpatient follow-up care with his treating neurosurgeon, stroke neurology and urology as well as his primary care provider. Reason for Visit: subdural hematoma, subarachnoid hemorrhage and ischemic stroke Date of Last Event: 04/15/2024 Antiplatelets/Anticoagulants: Aspirin Statins: Atorvastatin Residual Deficits: Language deficit and Motor weakness Current PT/OT/ST: Physical therapy at home, Occupational therapy at home and Speech therapy at home Current Living Situation: Still in a rehab facility Current use of a mobility aid for walking/getting around: Walker and Wheelchair/Scooter Office Visit 05/30/24 -presents for hospital discharge follow up -denies any new symptoms or clinical events -living at [facility] -prior to this lived at home with -PT, OT, speech -LUE weakness, aphasia getting better -ambulates with walker and assistance -in atrial flutter on outpatient event monitor -likely CAA- anticoagulation risk is high -NSGY ok from their perspective if DOAC needs to be started -consider SAMINA closure, saw Cardiology on 05/08 -aspirin 81mg daily -DVT prophylaxis -lipitor 20mg -BP 128/67 PAST MEDICAL HISTORY No date: Atrial fibrillation (HCC) 05/25/2016: Benign prostatic hyperplasia with lower urinary tract symptoms 05/25/2016: Bilateral lower extremity edema No date: Bladder mass 05/25/2016: Bradycardia 11/08/2008: Colon polyp Comment: benign 05/25/2016: Essential hypertension No date: Obesity, morbid, BMI 40.0-49.9 (HCC) No date: Parkinsonism (HCC) No date: Sleep apnea Comment: no machine No date: Subdural hematoma (HCC) 05/25/2016: Systolic murmur 05/25/2016: Vitamin D deficiency PAST SURGICAL HISTORY 10/22/2020: COLONOSCOPY GEN ANES Comment: Dr. Iqbal x3 last one in 03/2021: CYSTOSCOPY Comment: Bladder tumor 2017: OTHER SURGICAL HISTORY (PLEASE SPECIFY) HX Comment: Prostate surgery TURP FAMILY HISTORY Problem Relation Age of Onset Diabetes Father from complications from DM. Social History Tobacco Use Smoking status: Never Smokeless tobacco: Never Vaping Use Vaping Use: Never used Substance Use Topics Alcohol use: Not Currently Comment: occ. Maybe one drink per week. Drug use: No MEDICATIONS Current Outpatient Medications Medication Sig melatonin 3 mg capsules Take 3 mg by mouth at bedtime as needed for insomnia. hydralazine HCl (HYDRALAZINE ORAL) Take 40 mg by mouth every 8 hours. amLODIPine (NORVASC) 5 mg tablet Take 2 tablets by mouth once daily. aspirin 81 mg chewable tablet Take 1 tablet by mouth once daily. ergocalciferol 50,000 unit capsule (VITAMIN D2, DRISDOL) Take 1 capsule by mouth one time a week for 6 doses. miconazole 2 % powder Apply 1 application to affected area two times a day. senna-docusate (SENNA-S) 8.6-50 mg per tablet Take 1 tablet by mouth two times a day. tamsulosin (FLOMAX) 0.4 mg Take 1 capsule by mouth daily at bedtime. lisinopril (ZESTRIL) 40 mg tablet Take 1 tablet by mouth once daily. atorvastatin (LIPITOR) 20 mg tablet Take 1 tablet by mouth once daily. acetaminophen (TYLENOL) 500 mg tablet Take 2 tablets by mouth every 8 hours as needed for pain. buPROPion XL (WELLBUTRIN XL) 300 mg 24 hr tablet Take 300 mg by mouth once daily. No current facility-administered medications for this visit. ALLERGIES ALLERGIES No Known Allergies PHYSICAL EXAMINATION BP 128/67 Pulse 72 Ht 182.9 cm (6') Wt (!) 160.1 kg (353 lb) BMI 47.88 kg/m General: Well-developed, well-nourished, in no acute distress. HEENT: Normocephalic, atraumatic. Sclerae anicteric. Oropharynx clear. Neck: No JVD Heart: Skin well-perfused. Lungs: Breathing comfortably on room air. Extremities: No edema, cyanosis, or clubbing. Skin: No rash or ecchymoses. Neurological: Awake, alert, oriented to person, place, and time. Speech fluent, no dysarthria. Recall, comprehension intact. Good attention and insight into illness. Cranial Nerves: Extraocular movements intact without nystagmus. Visual thayer full. Facia movements normal and symmetric. Motor: Normal bulk and tone. Mild LUE drift. Sensation: Intact light touch Coordination: [id number] without dysmetria on right Gait: deferred LABS Cholesterol: Cholesterol, Total (mg/dL) Date Value 04/18/2024 132 12/17/2017 251 Total Cholesterol, Nonfasting (mg/dL) Date Value 04/18/2024 137 LDL Cholesterol (mg/dL) Date Value 04/18/2024 57 LDL Cholesterol, Nonfasting (mg/dL) Date Value 04/18/2024 59 LDL Calculated (mg/dL) Date Value 12/17/2017 145 HDL Cholesterol (mg/dL) Date Value 04/18/2024 54 12/17/2017 47 HDL Cholesterol, Nonfasting (mg/dL) Date Value 04/18/2024 56 Triglyceride (mg/dL) Date Value 04/18/2024 105 12/17/2017 295 Triglycerides, Nonfasting (mg/dL) Date Value 04/18/2024 109 Diabetes: Hemoglobin A1C (%) Date Value 04/18/2024 5.6 12/17/[address] brain 04/15/24 IMPRESSION: Brain- 1. There is an acute right-sided subdural hematoma measuring up to 13 mm in thickness, overlying the frontal and temporal lobes. Associated underlying mass effect and 5 mm leftward midline shift. 2. Acute subarachnoid blood within a few right frontal cortical sulci. 3. Atrophy and chronic ischemic changes. MRI brain, MRA brain and carotids 04/18/24 IMPRESSION: 1. Small acute infarcts in the RIGHT precentral, postcentral gyrus, RIGHT frontal operculum and LEFT temporal lobe, probably embolic in etiology. 2. No corresponding hemorrhage or hemorrhagic transformation. 3. Status post RIGHT subdural hematoma evacuation with small volume residual subdural hemorrhage along the RIGHT occipital convexity and small volume subarachnoid hemorrhage along the RIGHT frontal convexity redemonstrated unchanged. Small volume LEFT posterior parietal, temporal and occipital convexity subdural hemorrhage unchanged. 4. Small bilateral basal ganglial and pontine chronic lacunar infarcts. 5. 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 Recommend attention on follow-up imaging. 6. Multifocal subcortical chronic microhemorrhage is in the supratentorial brain, nonspecific but can be seen with amyloid angiopathy. 7. Within the limitation of motion, no definite large vessel occlusion or hemodynamically significant stenosis of major arteries of head and neck. Echo 04/17/24 CONCLUSIONS: - Technically difficult exam due to suboptimal positioning. - Exam indication: Abnormal ECG - The left ventricle is normal in size. There is moderate upper septal left ventricular hypertrophy. Left ventricular systolic function is normal. EF = 61 5% (2D biplane) Definity contrast used for endocardial border detection. Normal left ventricular diastolic function. - The right ventricle is normal in size. Right ventricular systolic function is normal. - The visualized aorta is dilated with a maximal dimension of 4.3 cm. - There are no significant valvular abnormalities. - Exam was compared with the prior [facility] echocardiographic exam performed on 09/03/2022. No significant change noted when compared to report of prior study. Patient Entered Questionnaires PROMIS/NeuroQoL Score Percentiles 01/20/2021 Physical Health Physical Function Percentile 10 Fatigue Percentile 5 01/20/2021 PROMIS SOCIAL ROLE SCORE Social Role Satisfaction Percentile 16* 10/05/2022 01/20/2021 PROMIS Global Health Scale Physical Health Percentile 15 15 Mental Health Percentile 19* 26* Percentiles provide an indication of how a patient's score ranks in relation to the [place] general population. > 31st percentile is within normal limits or better * < 31st percentile is at least SD worse than population, which may be clinically relevant < 16th percentile is at least 1 SD worse than population and warrants attention Depression Screenin02/01/2024 10/29/2022 10/01/2022 PHQ-9 Score 0 0 0 Self-Harm Response Not at all Not at all PHQ-9 Scores: PHQ-9 Self-Harm (Item 9) Response: 0 - 9 No to Mild depression 0 - Not at all 10 - 14 Moderate depression 1 - Several Days > 15 Severe depression 2 - More than half the days 3 - Nearly every day Stroke Mechanism and Scales Ischemic or TIA: Ischemic Stroke TOAST Mechanism (CCF-MODIFIED): Cardioembolism Cardioembolism: Atrial fibrillation/flutter Intracranial Hemorrhage: Subarachnoid and Subdural Hematoma Subarachnoid Hemorrhage: Trauma NIH Stroke Scale: LOC: 0 LOC Questions: 0 LOC Commands: 0 LOC Normal Gaze: 0 Visual Thayer: 0 Facial Palsy: 0 Motor Left Arm: 1 Motor Right Arm: 0 Motor Left Le Motor Right Le Limb Ataxia: 0 Sensory: 0 Language: 1 Dysarthria: 0 Extinction/Neglect: 0 Total Daily NIHSS: 2 Cerebrovascular Disease w/o Stroke Event: Cerebral Microbleeds IMPRESSION Bilateral cortical ischemic infarcts ~04/17/24. Etiology cardioembolic from atrial flutter Left hemiparesis as late effect of CVA Aphasia as late effect of CVA Trauamtic SDH and SAH from ground level fall 04/14/24 Silent cerebral microhemorrhages - probable cerebral amyloid angiopathy Remote lacunar infarcts, likely small vessel etiology Atrial flutter Hypertension Dyslipidemia - LDL [address] Geronimo. Have also been in contact with Neurosurgery and Cardiology. 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 Recommend repeat MRI brain to evaluate for interval change. 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 Continue atorvastatin for secondary stroke prevention and LDL goal below 70. Continue monitoring blood pressure for goal below 130/80. Follow up in 2-3 months depending on the above Medical Decision Making: Medical Decision Making Level: 1 - N/A I spent a total of 46 minutes on the date of service which included preparing to see the patient, [id number] patient care, completing clinical documentation, obtaining and/or reviewing separately obtained history, performing a medically appropriate examination, counseling and educating the patient/family/caregiver, ordering medications, tests, or procedures, communicating with other HCPs (not separately reported), independently interpreting results (not separately reported), communicating results to the patient/family/caregiver, and care coordination (not separately reported) SIGNATURE Anya Huang APRN.RESIDENTIAL REAL ESTATE ASSISTANT [facility] No referring provider defined for this encounter. Karthik Holliday [address] [email or web address] [id number] documented in this encounter [facility] 05-30-2024 Note Radha العراقي [facility] 05-23-2024 History of Present illness Narrative NEUROSURGERY POST OP NOTE Dr. Leonard Ko MD, FACS Date of visit: May 23, 2024 Patient Name: Mr.Kevin Myrna Simon Date of : 1960 Current Age: [age] year old MRN/E# [id number] Last Office Visit: 05/09/2024 SURGERY: Right frontal craniotomy for evacuation of SDH and excision of tumor on 04/16/[address] Ko. FINAL DIAGNOSIS A. Brain tumor, excision: - Meningioma, meningothelial type (grade 1). See comment. PRE-SURGICAL SYMPTOMS: Confusion, difficulty word finding SURGICAL RISK: Smoker: Never Diabetic: No Anticoagulants / Antiplatelets: ASA 81 mg and Heparin Sq 7,500 units TID Occupation: NA The patient presents for a post operative visit with imaging (CT B) for evaluation. This is a 64 year old male with a PMHx of BPH, HTN, morbid obesity, parkinsonism and sleep apnea who was seen for consult at [facility] on 04/16/24 after transfer from [place] ED for a SAH. Per patients , the patient had fallen the evening before and was unable to get up. EMS assisted with lift and patient went to bed at home. The following day he was noted to be confused with difficulty word finding/expressive aphasia. Imaging demonstrated a right frontotemporal SDH with MLS and right frontal cortical sulci SAH. He denied use of blood thinning medications. He was started on Keppra 1g BID and monitored in the ICU with frequent neuro checks. He was taken to the OR in the morning for evacuation of the bleed as noted above. Intra-op there was note of a tumor suspected to be a meningioma and this was resected as well. His post op course was complicated by acute ischemic stroke with bilateral cortical infarcts, bradycardia, HTN. He was evaluated by stroke and cleared to begin low dose ASA 04/22/24. Once medically stable he was cleared for discharge to rehab. Recommendation was to follow up for post op visit and suture removal. He was last seen on 05/09/24 and reported that he was doing well. He denied denies headache, visual changes, speech deficits, seizure activity, motor or sensory deficits. Neurologically he continued to have mild expressive deficits and left sided weakness. Incision was well healed, sutures were removed at rehab. There was not note of infection. Pathology was discussed and recommendation was to follow up with CT brain for continued post operative monitoring prompting his visit today. Since last visit he states he is overall doing well. He is currently in [facility] and participating in PT/OT/ST. He is moving his left side much better and his speech is improved. He is pleased with his outcome thus far. He presents for image review, evaluation and plan of care. INCISION: Healed- No s/s of infection noted PAST MEDICAL HISTORY Diagnosis Date Benign prostatic hyperplasia with lower urinary tract symptoms 05/25/2016 Bilateral lower extremity edema 05/25/2016 Bladder mass Bradycardia 05/25/2016 Colon polyp 11/08/2008 benign Essential hypertension 05/25/2016 Obesity, morbid, BMI 40.0-49.9 (HCC) Parkinsonism (HCC) Sleep apnea no machine Systolic murmur 05/25/2016 Vitamin D deficiency 05/25/2016 PAST SURGICAL HISTORY Procedure Laterality Date COLONOSCOPY GEN ANES 10/22/2020 Dr. Iqbal x3 last one in 2019 CYSTOSCOPY 03/2021 Bladder tumor OTHER SURGICAL HISTORY (PLEASE SPECIFY) HX 2017 Prostate surgery TURP FAMILY HISTORY Problem Relation Age of Onset Diabetes Father from complications from DM. ALLERGIES No Known Allergies Current Outpatient Medications Medication Sig Dispense Refill heparin sodium,porcine (HEPARIN SODIUM INJECTION) 5,000 Units/mL by INJECTION(UNSPECIFIED PARENTERAL ROUTES) route every 8 hours. Inject 7500 unit subcutaneously every 8 hours psyllium husk/aspartame (METAMUCIL FIBER SINGLES ORAL) Take 1 Packet by mouth as needed. MEDICATION, NON-DATABASE Melatonin CR 2 mg at bedtime prn magnesium hydroxide (MILK OF MAGNESIA ORAL) Take by mouth. hydralazine HCl (HYDRALAZINE ORAL) Take 40 mg by mouth as needed (q8). amLODIPine (NORVASC) 5 mg tablet Take 2 tablets by mouth once daily. acetaminophen (TYLENOL) 500 mg tablet Take 2 tablets by mouth every 6 hours as needed for pain. (Patient taking differently: Take 1,000 mg by mouth every 8 hours as needed for pain.) aspirin 81 mg chewable tablet Take 1 tablet by mouth once daily. ergocalciferol 50,000 unit capsule (VITAMIN D2, DRISDOL) Take 1 capsule by mouth one time a week for 6 doses. 6 capsule 0 miconazole 2 % powder Apply 1 application to affected area two times a day. senna-docusate (SENNA-S) 8.6-50 mg per tablet Take 1 tablet by mouth two times a day. tamsulosin (FLOMAX) 0.4 mg Take 1 capsule by mouth daily at bedtime. 90 capsule 1 lisinopril (ZESTRIL) 40 mg tablet Take 1 tablet by mouth once daily. 90 tablet 1 atorvastatin (LIPITOR) 20 mg tablet Take 1 tablet by mouth once daily. 90 tablet 1 No current facility-administered medications for this visit. Review of Systems Constitutional: Negative for chills, diaphoresis (Negative for night sweats.) and fever. HENT: Negative for ear discharge and rhinorrhea. Eyes: Negative for discharge. Respiratory: Negative for cough, shortness of breath and wheezing. Cardiovascular: Negative for chest pain, palpitations and leg swelling. Gastrointestinal: Negative for constipation, diarrhea, nausea and vomiting. Endocrine: Negative for cold intolerance and heat intolerance. Genitourinary: Negative for frequency. Negative for urinary incontinence and urinary retention. Musculoskeletal: Positive for gait problem. Negative for back pain, joint swelling, myalgias and neck pain. Skin: Negative for rash (Negative for hives and skin lesions.). Allergic/Immunologic: Negative for environmental allergies and food allergies. Negative for contact allergy, seasonal allergies. Neurological: Positive for speech difficulty and weakness. Negative for dizziness, seizures, syncope, light-headedness, numbness (Negative for numbness in extremities.) and headaches. Hematological: Does not bruise/bleed easily. Psychiatric/Behavioral: The patient is not nervous/anxious. Negative for depression. PAIN EVALUATION No data found in the last 1 encounters. BP 121/77 Pulse 60 Resp 16 Ht 6' (1.829 m) SpO2 98% BMI 47.93 kg/m PHYSICAL EXAM: Mental State : Alert, memory function unremarkable. Attention span and concentration normal for patient's age. Speech normal, no receptive or expressive speech deficit. Recent and remote memory normal. Orientation : Oriented to person, place and time. Higher Cortical Function : Intact speech and language. Spontaneous speech and comprehension normal. Fund of knowledge intact for pt level of education. Cranial Nerves : II: No visual field cut no blurring, Makes and sustains eye contact III, IV, : Normal, no double vision or drooping. Pupils equal and reactive to light. Extraocular muscles intact. No nystagmus V: Normal sensation on the face, normal jaw movements VII: No paresis on either side VIII: No gross hearing deficit IX: Good and equal shoulder shrugs XII: Tongue midline, no fasciculations Sensory: SILT. Normal Sensation in upper and lower extremities and trunk to touch and noxious stimuli. Motor: Normal muscle tone and bulk. No tremor or uncontrollable movements. No spasticity or tremor. Strength: Upper Extremities : R L Deltoid 5/5 4/5 Biceps 5/5 4/5 Triceps 5/5 4/5 Wrist Ext 5/5 4/5 Wrist Flx 5/5 4/5 Hand Int 5/5 4/5 Lower Extremities : Hip Flexors 5/5 4/5 Hip Extensors 5/5 4/5 Hip Abductors 5/5 4/5 Straight leg Neg Neg Ankle dorsiflex 5/5 4/5 Ankle Plantar 5/5 4/5 Reflexes : Biceps 2+ 2+ Triceps 2+ 2+ Wrist 2+ 2+ Patellar 2+ 2+ Achilles 2+ 2+ Cerebellar Function : Normal finger to nose. Normal rapid alternating movements. No ataxia. Negative Romberg. Gait and Station: Compensated gait. Wheelchair but ambulates with assist at rehab. Pulmonary: Lungs without cough, audible wheeze. Respirations unlabored. Cardiac: Regular rate and rhythm. No murmer, gallop or rub. IMAGING: CT Brain WO IVCON performed today 05/26/24 demonstrates: Report is pending. There is no evidence of acute bleed to me. The small chronic subdural hematoma on the left side is much smaller today than on the recent CT scan. The right frontal region shows postoperative changes. ASSESSMENT/PLAN: 1. Traumatic subdural hematoma with loss of consciousness, sequela (HCC) - ICD9: 907.0, ICD10: S06.5X9S (primary diagnosis) Patient is here for a follow-up visit. He had an acute subdural hematoma and a meningioma on the right frontal region that were operated on. In the postoperative time he had intermittent weakness of his left upper extremity and car salter diagnosed by neurology to have had ischemic strokes. He presently is in rehab and is improving. His speech is normal. He has mild weakness in the left hand and the left leg. He walks with a walker. He is on subcu heparin for DVT prophylaxis. Neurology recommended that he take aspirin which she is doing that daily. He has an appointment at the stroke clinic in the next week or 2. If it is necessary for him to be on long-term anticoagulation I have no objection to that. In view of the fact that he has a small chronic subdural hematoma on the left side I recommended a scan in 1 month. - CT BRAIN WO BIPIN 2. Intracranial meningioma (HCC) - ICD9: 225.2, ICD10: D32.0 The meningioma that was excised in its entirety was a grade 1 benign meningioma. - CT BRAIN WO JYOTSNAON Leonard Ko MD FOLLOW UP: Return in about 4 weeks (around 06/20/2024) for review of imaging and plan of care. Please Note: This note has been partially generated using [employer], a speech recognition software program, and may contain errors including punctuation, grammar, spelling, gender, and inappropriate words or phrases that pertain to the system. documented in this encounter [facility] 05-23-2024 Note [place] [facility] 05-22-2024 Note [facility] 05-22-2024 History of Present illness Narrative TRANSITION CARE MANAGEMENT (TCM) DISCHARGE TO POST ACUTE FACILITY POST ACUTE TRANSFER SUMMARY: -Pt discharged from [facility] on 05/19/2024. -Post Acute Facility Admitted to [facility] -Admitted for: [facility] Office PCC will follow at discharge. Madina Amador RN May 22, 2024 documented in this encounter [facility] 05-22-2024 Note [facility] 05-22-2024 History of Present illness Narrative ESTABLISHED PATIENT OFFICE VISIT HISTORY OF PRESENT ILLNESS Alfonzo Simon is a 64 year old male with h/o S/p TURP 2016 and repeat in [address] Mccall who presents today for PVR. [place] was placed in the hospital the patient underwent brain surgery and was removed a couple weeks ago. He is taking Flomax PVR 8cc today He reports no new issues. Will follow up with Dr. Mccall for yearly LAB RESULTS Creatinine Date Value Ref Range Status 04/22/2024 0.79 0.73 - 1.22 mg/dL Final PSA (ng/mL) Date Value 05/25/2016 2.33 PSA Screening (ng/mL) Date Value 02/01/2024 5.20 Color (no units) Date Value 04/16/2024 Light [place] 09/16/2019 YELLOW Clarity (no units) Date Value 04/16/2024 Turbid Glucose, Urine Date Value 04/16/2024 Negative 09/16/2019 NEGATIVE mg/dL Bilirubin, Urine (no units) Date Value 04/16/2024 Negative 09/16/2019 NEGATIVE Ketones, Urine Date Value 04/16/2024 Negative 09/16/2019 NEGATIVE mg/dL Specific [place], Ur (no units) Date Value 04/16/2024 1.028 09/16/2019 1.019 Hemoglobin/Blood,Ur (no units) Date Value 04/16/2024 3+ pH, Urine (no units) Date Value 04/16/2024 5.5 09/16/2019 7.0 Protein, Urine Date Value 04/16/2024 1+ 09/16/2019 NEGATIVE mg/dL Urobilinogen (no units) Date Value 04/16/2024 Normal Nitrites (no units) Date Value 04/16/2024 Negative Nitrites Urine (no units) Date Value 09/16/2019 NEGATIVE Leuk Esterase (no units) Date Value 04/16/2024 500 Irina/uL Leukocytes Esterase (no units) Date Value 09/16/2019 NEGATIVE MEDICATIONS: heparin sodium,porcine (HEPARIN SODIUM INJECTION) 5,000 Units/mL by INJECTION(UNSPECIFIED PARENTERAL ROUTES) route every 8 hours. Inject 7500 unit subcutaneously every 8 hours psyllium husk/aspartame (METAMUCIL FIBER SINGLES ORAL) Take 1 Packet by mouth as needed. MEDICATION, NON-DATABASE Melatonin CR 2 mg at bedtime prn magnesium hydroxide (MILK OF MAGNESIA ORAL) Take by mouth. hydralazine HCl (HYDRALAZINE ORAL) Take 40 mg by mouth as needed (q8). amLODIPine (NORVASC) 5 mg tablet Take 2 tablets by mouth once daily. acetaminophen (TYLENOL) 500 mg tablet Take 2 tablets by mouth every 6 hours as needed for pain. (Patient taking differently: Take 1,000 mg by mouth every 8 hours as needed for pain.) aspirin 81 mg chewable tablet Take 1 tablet by mouth once daily. ergocalciferol 50,000 unit capsule (VITAMIN D2, DRISDOL) Take 1 capsule by mouth one time a week for 6 doses. miconazole 2 % powder Apply 1 application to affected area two times a day. senna-docusate (SENNA-S) 8.6-50 mg per tablet Take 1 tablet by mouth two times a day. buPROPion XL (WELLBUTRIN XL) 300 mg 24 hr tablet Take 300 mg by mouth once daily. tamsulosin (FLOMAX) 0.4 mg Take 1 capsule by mouth daily at bedtime. lisinopril (ZESTRIL) 40 mg tablet Take 1 tablet by mouth once daily. atorvastatin (LIPITOR) 20 mg tablet Take 1 tablet by mouth once daily. REVIEW OF SYSTEMS CONSTITUTIONAL: Patient reports no recent fever or weight loss CARDIOVASCULAR: No chest pain, palpitations or ankle edema. RESPIRATORY: No wheezing, frequent cough or shortness of breath GENITOURINARY: See HPI HISTORIES PAST MEDICAL HISTORY Diagnosis Date Benign prostatic hyperplasia with lower urinary tract symptoms 05/25/2016 Bilateral lower extremity edema 05/25/2016 Bladder mass Bradycardia 05/25/2016 Colon polyp 11/08/2008 benign Essential hypertension 05/25/2016 Obesity, morbid, BMI 40.0-49.9 (HCC) Parkinsonism (HCC) Sleep apnea no machine Systolic murmur 05/25/2016 Vitamin D deficiency 05/25/2016 FAMILY HISTORY Problem Relation Age of Onset Diabetes Father from complications from DM. PAST SURGICAL HISTORY Procedure Laterality Date COLONOSCOPY GEN ANES 10/22/2020 Dr. Iqbal x3 last one in 2019 CYSTOSCOPY 03/2021 Bladder tumor OTHER SURGICAL HISTORY (PLEASE SPECIFY) HX 2017 Prostate surgery TURP SOCIAL HISTORY Social History Tobacco Use Smoking status: Never Smokeless tobacco: Never Vaping Use Vaping Use: Never used Substance Use Topics Alcohol use: Not Currently Comment: occ. Maybe one drink per week. Drug use: No PHYSICAL EXAMINATION General appearance: Well appearing, alert, in no acute distress, well-hydrated, well nourished.. BACK: no pain to palpation over spine or costovertebral angles. MUSCULOSKELETAL: Negative for joint pain or swelling. RESPIRATORY: Normal respiratory effort. SKIN: Normal color, no rash, no lesions.. ASSESSMENT/PLAN: 1. Benign prostatic hyperplasia with urinary retention - ICD9: 600.01, 788.20, ICD10: N40.1, R33.8 - BLADDER SCAN [place] was placed in the hospital the patient underwent brain surgery and was removed a couple weeks ago. Voiding ok He is taking Flomax PVR 8cc today He reports no new issues. Will follow up with Dr. Mccall for yearly Suellen Conley APRN.RESIDENTIAL REAL ESTATE ASSISTANT documented in this encounter [facility] 05-17-2024 Telephone encounter Note PT doesn't have catheter per Nurse from [facility] needed a void trial. Added to Suellen's schedule for void trial. Thanks [facility] 05-17-2024 Miscellaneous Notes PT doesn't have catheter per Nurse from [facility] needed a void trial. Added to Suellen's schedule for void trial. Thanks Received call from Janie with [facility], patient needs an appointment to have [place]mos[place] catheter removed. Catheter was placed when patient was at [facility] Mccall. Informed her that will transfer to scheduling. Patient would need an appointment in morning with CYNTHIA LARSEN and then nurse later in afternoon for PVR. Warm transfer to scheduling. Phyllis Floyd RN documented in this encounter [facility] 05-17-2024 Telephone encounter Note I returned Irlanda [phone] requesting to change patient appt due to old appt was on patients discharge date, I left a detailed vm with patients rescheduled appt day and time [facility] 05-17-2024 Miscellaneous Notes I returned Irlanda jason [phone] requesting to change patient appt due to old appt was on patients discharge date, I left a detailed vm with patients rescheduled appt day and time documented in this encounter [facility] 05-17-2024 Telephone encounter Note [facility] patient needs an appointment to have hermosillo catheter removed. Catheter was placed when patient was at [facility] 10/[facility] Mccall. Informed her that will transfer to scheduling. Patient would need an appointment in morning with CYNTHIA LARSEN and then nurse later in afternoon for PVR. Warm transfer to scheduling. Phyllis Floyd RN [facility] Work Phone: 05-09-2024 History of Present illness Narrative NEUROSURGERY POST OP NOTE Dr. Leonard Ko MD, FACS Date of visit: May 09, 2024 Patient Name: Mr.Kevin Myrna Simon Date of : 1960 Current Age: [age] year old MRN/E# [id number] Last Office Visit: Post op SURGERY: Right frontal craniotomy for evacuation of SDH and excision of tumor on 04/16/[address] Ko. FINAL DIAGNOSIS A. Brain tumor, excision: - Meningioma, meningothelial type (grade 1). See comment. PRE-SURGICAL SYMPTOMS: Confusion, difficulty word finding SURGICAL RISK: Smoker: Never Diabetic: No Anticoagulants / Antiplatelets: ASA 81 mg and Heparin Sq 7,500 units TID Occupation: NA The patient presents for a post operative visit. This is a 64 year old male with a PMHx of BPH, HTN, morbid obesity, parkinsonism and sleep apnea who was seen for consult at [facility] on 04/16/24 after transfer from [facility] for a SAH. Per patients , the patient had fallen the evening before and was unable to get up. EMS assisted with lift and patient went to bed at home. The following day he was noted to be confused with difficulty work finding and what sounds like expressive aphasia. He was taken to [place] ED where imaging demonstrated a right frontotemporal SDH with MLS and right frontal cortical sulci SAH. He denied use of blood thinning medications. He was started on Keppra 1g BID and monitored in the ICU with frequent neuro checks. He was taken to the OR in the morning for evacuation of the bleed as noted above. Intra-op there was note of a tumor suspected to be a meningioma and this was resected as well. His post op course was complicated by acute ischemic stroke with bilateral cortical infarcts, bradycardia, HTN. He was evaluated by stroke and cleared to begin low dose ASA 04/22/24. Once medically stable he was cleared for discharge to rehab. Recommendation was to follow up for post op visit and suture removal. Today he states he is overall doing well. He denies denies headache, visual changes, speech deficits, seizure activity, motor or sensory deficits. He presents for image review, evaluation and plan of care. INCISION: Healed PAST MEDICAL HISTORY Diagnosis Date Benign prostatic hyperplasia with lower urinary tract symptoms 05/25/2016 Bilateral lower extremity edema 05/25/2016 Bladder mass Bradycardia 05/25/2016 Colon polyp 11/08/2008 benign Essential hypertension 05/25/2016 Obesity, morbid, BMI 40.0-49.9 (HCC) Parkinsonism (HCC) Sleep apnea no machine Systolic murmur 05/25/2016 Vitamin D deficiency 05/25/2016 PAST SURGICAL HISTORY Procedure Laterality Date COLONOSCOPY GEN ANES 10/22/2020 Dr. Iqbal x3 last one in 2019 CYSTOSCOPY 03/2021 Bladder tumor OTHER SURGICAL HISTORY (PLEASE SPECIFY) HX 2017 Prostate surgery TURP FAMILY HISTORY Problem Relation Age of Onset Diabetes Father from complications from DM. ALLERGIES No Known Allergies Current Outpatient Medications Medication Sig Dispense Refill heparin sodium,porcine (HEPARIN SODIUM INJECTION) 5,000 Units/mL by INJECTION(UNSPECIFIED PARENTERAL ROUTES) route every 8 hours. Inject 7500 unit subcutaneously every 8 hours psyllium husk/aspartame (METAMUCIL FIBER SINGLES ORAL) Take 1 Packet by mouth as needed. MEDICATION, NON-DATABASE Melatonin CR 2 mg at bedtime prn magnesium hydroxide (MILK OF MAGNESIA ORAL) Take by mouth. hydralazine HCl (HYDRALAZINE ORAL) Take 40 mg by mouth as needed (q8). amLODIPine (NORVASC) 5 mg tablet Take 2 tablets by mouth once daily. acetaminophen (TYLENOL) 500 mg tablet Take 2 tablets by mouth every 6 hours as needed for pain. (Patient taking differently: Take 1,000 mg by mouth every 8 hours as needed for pain.) aspirin 81 mg chewable tablet Take 1 tablet by mouth once daily. ergocalciferol 50,000 unit capsule (VITAMIN D2, DRISDOL) Take 1 capsule by mouth one time a week for 6 doses. 6 capsule 0 miconazole 2 % powder Apply 1 application to affected area two times a day. senna-docusate (SENNA-S) 8.6-50 mg per tablet Take 1 tablet by mouth two times a day. tamsulosin (FLOMAX) 0.4 mg Take 1 capsule by mouth daily at bedtime. 90 capsule 1 lisinopril (ZESTRIL) 40 mg tablet Take 1 tablet by mouth once daily. 90 tablet 1 atorvastatin (LIPITOR) 20 mg tablet Take 1 tablet by mouth once daily. 90 tablet 1 buPROPion XL (WELLBUTRIN XL) 300 mg 24 hr tablet Take 300 mg by mouth once daily. No current facility-administered medications for this visit. Review of Systems Constitutional: Negative for chills, diaphoresis (Negative for night sweats.) and fever. HENT: Negative for ear discharge and rhinorrhea. Eyes: Negative for discharge. Respiratory: Negative for cough, shortness of breath and wheezing. Cardiovascular: Negative for chest pain, palpitations and leg swelling. Gastrointestinal: Negative for constipation, diarrhea, nausea and vomiting. Endocrine: Negative for cold intolerance and heat intolerance. Genitourinary: Negative for frequency. Negative for urinary incontinence and urinary retention. Musculoskeletal: Negative for back pain, joint swelling, myalgias and neck pain. Skin: Negative for rash (Negative for hives and skin lesions.). Allergic/Immunologic: Negative for environmental allergies and food allergies. Negative for contact allergy, seasonal allergies. Neurological: Negative for dizziness, seizures, syncope, weakness, light-headedness, numbness (Negative for numbness in extremities.) and headaches. Hematological: Does not bruise/bleed easily. Psychiatric/Behavioral: The patient is not nervous/anxious. Negative for depression. PAIN EVALUATION No data found in the last 1 encounters. BP 110/67 (BP Site: Right Arm, BP Position: Sitting, BP Cuff Size: Large Adult) Pulse 64 Resp 20 SpO2 93% A&O x3 Mild speech deficit (expressive) WILLIS x 4 with mild left sided weakness Inc - healing well IMAGING: CT Brain WO IVCON performed today 05/09/24 demonstrates: Report is pending. To me the site of the surgery shows no evidence of acute blood. He previously had a left posterior subdural blood which now has become chronic ASSESSMENT/PLAN: 1. 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 While hospitalized he had multiple episodes of increased weakness and speech difficulty and found by MRI scan to have ischemic infarct in the right frontoparietal region. He presently is in rehab and I see from his records that he is on aspirin as well as subcu heparin. He is awake and alert. His speech is much improved compared to when he was hospitalized but he still has a little hesitation and finding words. He has good strength in the left upper extremity but his hand car salter and fine finger movements is still showing weakness. I reviewed his CT scan from today and he does not have any acute hemorrhages. My concern is the presence of the chronic small subdural hematoma in the left parietal occipital region. This does not require surgical intervention. I understand the patient is being considered for long-term anticoagulation which if absolutely necessary from the cardiac standpoint he can be on long-term anticoagulation. This of course is not without risk of expansion of his presence small subdural hematoma on the left and has to be weighed against the benefits for his atrial flutter. I elected to have him come back and see me in [address] scan to determine in which direction the subdural hematoma is going. If we can tide him over until then with the present heparin and aspirin I will be able to determine better in about 10 days if we are okay with long-term anticoagulation. - CT BRAIN AMBERLY VOSS 2. Intracranial meningioma (HCC) - ICD9: 225.2, ICD10: D32.0 Excised grade 1 convexity meningioma right - CT BRAIN WO JYOTSNAON Leonard Ko MD FOLLOW UP: Return in about 10 days (around 05/19/2024) for review of imaging and plan of care. Please Note: This note has been partially generated using [employer], a speech recognition software program, and may contain errors including punctuation, grammar, spelling, gender, and inappropriate words or phrases that pertain to the system. documented in this encounter [facility] 05-08-2024 History of Present illness Narrative Images from the original note were not included. [facility] Department of Cardiovascular Medicine SECTION OF CLINICAL CARDIOLOGY OUTPATIENT VISIT DATE May 08, 2024 OUTPATIENT VISIT TYPE CONSULTATION PRIMARY CARE PHYSICIAN: Karthik Holliday [address] [place] [address] REFERRING PHYSICIAN Anya Huang [address] [facility] [address] REPLACED BY [facility] [id number] CHIEF COMPLAINT: Atrial flutter HISTORY OF PRESENT ILLNESS: Mr. Simon is a 64 year old male who is seen today for newly diagnosed paroxysmal atrial flutter. Patient was recently admitted to [facility] due to fall leading to a subdural hematoma from 04/15 - 04/25. During this hospital admission, imaging revealed a meningioma which was removed via craniotomy by Dr. Ko. During this admission, patient developed proximal LUE weakness and aphasia and imaging confirmed a new ischemic stroke. I was believed that the stroke was caused by central cardioembolic source. TTE completed on 04/17 showed LVEF 61% and moderate septal LVH. At time of discharge, patient's residual deficits were difficulty with word finding and and residual left proximal UE weakness. He was also discharged with an event monitor which eventually showed new episodes of atrial flutter. Today in the office, patient admits that his LUE strength is improving at his rehab facility but still struggles at times with word finding. He denies any prior episodes of chest pain, palpitations, shortness of breath, or fatigue. He does not recall the events leading up to his previous fall and it was unwitnessed. PAST MEDICAL HISTORY Diagnosis Date Benign prostatic hyperplasia with lower urinary tract symptoms 05/25/2016 Bilateral lower extremity edema 05/25/2016 Bladder mass Bradycardia 05/25/2016 Colon polyp 11/08/2008 benign Essential hypertension 05/25/2016 Obesity, morbid, BMI 40.0-49.9 (HCC) Parkinsonism (HCC) Sleep apnea no machine Systolic murmur 05/25/2016 Vitamin D deficiency 05/25/2016 PAST SURGICAL HISTORY Procedure Laterality Date COLONOSCOPY GEN ANES 10/22/2020 Dr. Iqbal x3 last one in 2019 CYSTOSCOPY 03/2021 Bladder tumor OTHER SURGICAL HISTORY (PLEASE SPECIFY) HX 2017 Prostate surgery TURP SOCIAL HISTORY Social History Tobacco Use Smoking status: Never Smokeless tobacco: Never Vaping Use Vaping Use: Never used Substance Use Topics Alcohol use: Not Currently Comment: occ. Maybe one drink per week. Drug use: No FAMILY HISTORY Problem Relation Age of Onset Diabetes Father from complications from DM. ALLERGIES: ALLERGIES No Known Allergies MEDICATIONS: amLODIPine (NORVASC) 5 mg tablet Take 2 tablets by mouth once daily. acetaminophen (TYLENOL) 500 mg tablet Take 2 tablets by mouth every 6 hours as needed for pain. aspirin 81 mg chewable tablet Take 1 tablet by mouth once daily. ergocalciferol 50,000 unit capsule (VITAMIN D2, DRISDOL) Take 1 capsule by mouth one time a week for 6 doses. miconazole 2 % powder Apply 1 application to affected area two times a day. senna-docusate (SENNA-S) 8.6-50 mg per tablet Take 1 tablet by mouth two times a day. buPROPion XL (WELLBUTRIN XL) 300 mg 24 hr tablet Take 300 mg by mouth once daily. tamsulosin (FLOMAX) 0.4 mg Take 1 capsule by mouth daily at bedtime. lisinopril (ZESTRIL) 40 mg tablet Take 1 tablet by mouth once daily. atorvastatin (LIPITOR) 20 mg tablet Take 1 tablet by mouth once daily. REVIEW OF SYSTEMS: See HPI PHYSICAL EXAMINATION: There were no vitals taken for this visit. General: Well appearing, in no acute distress, speaking in complete sentences. Lungs: Clear to auscultation bilaterally, no wheezing or rhonchi. Heart: Regular rhythm, PMI not displaced, S1, S2 normal, no S3, no S4, no heaves, no rub and no murmur. Extremities: No peripheral edema . Grade 2/4 distal pulses bilaterally. Neuro: Oriented to person, place and time, alert, cooperative, gait coordinated 4/5 strength in proximal left upper extremity. 5/5 strength in all other extremities. CN intact. CARDIOVASCULAR MEDICINE TESTING: Stress Test 05/04/2024 (H) High LABS 04/22/2024 Latest Ref Rng 04/22/2024 WBC 3.70 - 11.00 k/uL 9.75 RBC 4.20 - 6.00 m/uL 3.47 (L) Hemoglobin 13.0 - 17.0 g/dL 9.8 (L) Hematocrit 39.0 - 51.0 % 30.6 (L) MCV 80.0 - 100.0 fL 88.2 MCH 26.0 - 34.0 pg 28.2 MCHC 30.5 - 36.0 g/dL 32.0 RDW-CV 11.5 - 15.0 % 15.2 (H) Platelet Count 150 - 400 k/uL 293 MPV 9.0 - 12.7 fL 11.3 Absolute nRBC <0.01 k/uL <0.01 Glucose 74 - 99 mg/dL 103 (H) BUN 9 - 24 mg/dL 20 Creatinine 0.73 - 1.22 mg/dL 0.79 Sodium 136 - 144 mmol/L 140 Potassium 3.7 - 5.1 mmol/L 4.2 Chloride 98 - 107 mmol/L 106 CO2 22 - 30 mmol/L 27 Anion Gap 8 - 15 mmol/L 7 (L) Calcium 8.5 - 10.2 mg/dL 8.2 (L) eGFR >=60 mL/min/1.73m 99 EKG 04/18/2024 ECHO /04/17/2024 CONCLUSIONS: - Technically difficult exam due to suboptimal positioning. - Exam indication: Abnormal ECG - The left ventricle is normal in size. There is moderate upper septal left ventricular hypertrophy. Left ventricular systolic function is normal. EF = 61 5% (2D biplane) Definity contrast used for endocardial border detection. Normal left ventricular diastolic function. - The right ventricle is normal in size. Right ventricular systolic function is normal. - The visualized aorta is dilated with a maximal dimension of 4.3 cm. - There are no significant valvular abnormalities. - Exam was compared with the prior CC echocardiographic exam performed on 09/03/2022. No significant change noted when compared to report of prior study. Last ECHO Result Conclusion ECHO Collected: 04/17/2024 11:14 AM (Final result) Impression: CONCLUSIONS: - Technically difficult exam due to suboptimal positioning. - Exam indication: Abnormal ECG - The left ventricle is normal in size. There is moderate upper septal left ventricular hypertrophy. Left ventricular systolic function is normal. EF = 61 5% (2D biplane) Definity contrast used for endocardial border detection. Normal left ventricular diastolic function. - The right ventricle is normal in size. Right ventricular systolic function is normal. - The visualized aorta is dilated with a maximal dimension of 4.3 cm. - There are no significant valvular abnormalities. - Exam was compared with the prior CC echocardiographic exam performed on 09/03/2022. No significant change noted when compared to report of prior study. * * * Final * * * Last EKG Result Conclusion ECG COMPLETE Collected: 04/19/2024 6:19 AM (Final result) Impression: SINUS BRADYCARDIA WITH MARKED SINUS ARRHYTHMIA LEFT VENTRICULAR HYPERTROPHY WITH QRS WIDENING AND REPOLARIZATION ABNORMALITY ( R in aVL , Dong product ) ABNORMAL ECG NO PREVIOUS ECGS AVAILABLE Confirmed by MD LM, JOSE ([id number]) on 04/19/2024 10:24:[address] Result Conclusion CT CHEST W IVCON Exam End: 04/15/2024 6:23 PM (Final result) Impression: IMPRESSION: 1. No acute posttraumatic abnormality. 2. 3 mm right lung nodule. New from the prior exam. A 12 month follow-up study could be performed if the patient is considered high risk for carcinoma. 3. There are multiple mildly enlarged left axillary nodes although they do show a fatty hilum. Correlate with physical exam. Follow-up should be performed as clinically indicated. 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 IMPRESSION: I48.92 Atrial flutter, unspecified type (HCC) (primary encounter diagnosis) S06.5XAA Subdural hematoma (HCC) Z86.73 History of ischemic stroke Mr. Simon is a 64 year old male who was recently admitted at [facility] for fall causing subdural hemorrhage with additional complication of ischemic stroke during the admission. It was believed that the cause of this stroke was cardiogenic in nature. TTE during his admission showed LVEF 61% with moderate septal LVH but not signs of thrombosis. He was discharged home with heart monitor which showed episodes of new atrial flutter. Today, ECG showed NSR with PACs. Patient claims he does not have any symptoms consistent with atrial flutter. He has a CHADsVaSc of 4 (age, HTN, and stroke). Normally we would pursue standard AC but with his recent subdural hemorrhage, we discussed with Dr. Ko and he is going to arrange follow up tomorrow for final recommendations. They said that Watchman may possibly be the preferred route. PLAN AND RECOMMENDATIONS: -Will await follow up plan from Neurosurgery regarding AC Eliquis vs Watchman -Discussed with patient both routes of treatment. Notes and plan are not complete until officially staffed and signed by the attending, Dr. Wolf. Jake Ontiveros, Internal Medicine, PGY-II [facility] 05/08/2024 [facility] STAFF PHYSICIAN NOTE OF PERSONAL INVOLVEMENT IN CARE I have reviewed the history and physical examination obtained and documented by the resident and I personally participated in the gomes components. I have discussed the case and management of the patient's care. Agree with the documented plan of care. The following comments revise or confirm relevant gomes components of their note. Very pleasant 64-year-old man who fell at home and was subsequently noted to have a subdural hematoma. He underwent evacuation of the hematoma and also resection of a meningioma that was found at the time of surgery. Postoperatively, he had a stroke and there was some concern that there was a central embolic source. Echocardiography demonstrated normal ventricular function with no significant valvular abnormalities. Event monitoring demonstrated paroxysmal atrial flutter/fibrillation. He is currently improved from the above sequence of events and in acute rehab. He is in sinus rhythm. No symptoms to suggest active ischemia, heart failure or symptomatic arrhythmia. He did not experience any palpitations or other symptoms during the recorded paroxysmal arrhythmia. 1. Paroxysmal atrial fibrillation/flutter. Currently in sinus rhythm. [id number] score of 4. Ideally needs to be anticoagulated. He will be seeing neurosurgery in follow-up this evaluation will help determine when anticoagulation can be started. If he is felt to be a prohibitive risk, could consider EP referral for left atrial appendage occlusion, but he will need to be anticoagulated for a few weeks for this also. Jed Wolf M.D. [facility] Department of Cardiovascular Medicine [facility] Desk [address] [place] [address] Office - [phone] extension [phone] Office Appointments: [phone] -[phone] extension [phone] documented in this encounter [facility] 05-05-2024 Telephone encounter Note Spoke to the patient's spouse, Alfonzo. The office contacted him to schedule a follow-up visit with Alfonzo (the patient) once released from rehab. The spouse reported that the surgical pathology report was released to [facility] and he was wondering if somebody could explain the diagnosis. I spoke with him on the phone and discussed that the tumor removed was a meningioma which is a noncancerous tumor and that Dr. Ko will discuss more of this at the patient's follow-up visit. He was pleased with our discussion and all of his questions and concerns were addressed in detail. ARACELIS Boucher Neurosurgery Nurse Practitioner [facility] 3:35 PM 05/05/2024 [facility] Work Phone: 05-05-2024 Miscellaneous Notes Spoke to the patient's spouse, Alfonzo. The office contacted him to schedule a follow-up visit with Alfonzo (the patient) once released from rehab. The spouse reported that the surgical pathology report was released to [facility] and he was wondering if somebody could explain the diagnosis. I spoke with him on the phone and discussed that the tumor removed was a meningioma which is a noncancerous tumor and that Dr. Ko will discuss more of this at the patient's follow-up visit. He was pleased with our discussion and all of his questions and concerns were addressed in detail. ARACELIS Boucher Neurosurgery Nurse Practitioner [facility] 3:35 PM 05/05/2024 documented in this encounter [facility] 05-05-2024 Telephone encounter Note Contacted [facility] and spoke to patients nurse, Kenia. She reports that Mr. Simon is doing well in rehab. His speech has improved since his admission there and he is working with physical and occupational therapy. She reported that his cranial incision is open to air and without signs or symptoms of infection. It is well healed. I advised her that it is ok to remove the sutures. In regard to blood thinning medications, he is taking a low dose ASA daily and is receiving subcutaneous Heparin TID. Discussed that Dr. Ko would like to see him in the office for a post op visit. She said [facility] does not transport patients to appointments. He is scheduled to be discharged on 05/19/24. We will attempt to make him an appointment shortly after his discharge. ARACELIS Boucher Neurosurgery Nurse Practitioner [facility] 11:53 AM 05/05/2024 [facility] Work Phone: 05-05-2024 Miscellaneous Notes Contacted [facility] and spoke to patients nurse, Kenia. She reports that Mr. Simon is doing well in rehab. His speech has improved since his admission there and he is working with physical and occupational therapy. She reported that his cranial incision is open to air and without signs or symptoms of infection. It is well healed. I advised her that it is ok to remove the sutures. In regard to blood thinning medications, he is taking a low dose ASA daily and is receiving subcutaneous Heparin TID. Discussed that Dr. Ko would like to see him in the office for a post op visit. She said [facility] does not transport patients to appointments. He is scheduled to be discharged on 05/19/24. We will attempt to make him an appointment shortly after his discharge. Agata Del Toro APRN-CHAN Neurosurgery Nurse Practitioner [facility] 11:53 AM 05/05/2024 documented in this encounter [facility] 05-03-2024 Telephone encounter Note Call to pt, no answer, LVM with return number. Geni Calloway RN May 03, 2024 4:23 PM [facility] 05-03-2024 Miscellaneous Notes Call to pt, no answer, LVM with return number. Geni Calloway RN May 03, 2024 4:23 PM Addended by: ANYA HUANG on: 05/03/2024 03:52 PM Modules accepted: Orders Call to pt, no answer, LVM with return number. Call to pt spouse and EC, no answer, LVM with return number. Geni Calloway RN May 03, 2024 2:28 PM Received phone call from [place], on 05/02/24 at 1059 am patient had a sinus rhythm of Sinus Florencio with a new onset of Atrial Flutter. Ne Andujar LPN documented in this encounter [facility] 05-03-2024 Note Addended by: ANYA VALE on: 05/03/2024 03:52 PM Modules accepted: Orders [facility] 05-03-2024 Telephone encounter Note Call to pt, no answer, LVM with return number. Call to pt spouse and EC, no answer, LVM with return number. Geni Calloway RN May 03, 2024 2:28 PM [facility] 05-03-2024 Telephone encounter Note Received phone call from [place], on 05/02/24 at 1059 am patient had a sinus rhythm of Sinus Florencio with a new onset of Atrial Flutter. Ne Andujar LPN [facility] 04-27-2024 History of Present illness Narrative TRANSITIONAL CARE MANAGEMENT (TCM) COMMUNITY MONITORING PROGRAM - [place] Provider Action/FYI: SUMMARY: Pt discharged from [facility] on 04/25/24. Admitted for: subdural hematoma Patient seen Inpatient DEBBI Visit? N/A. Patient seen ICARE Program? N/A. Contact made with patient: No - 2nd unsuccessful attempt - end outreach and close encounter Outreach ended documented in this encounter [facility] 04-26-2024 History of Present illness Narrative TRANSITION CARE MANAGEMENT (TCM) DISCHARGE TO POST ACUTE FACILITY POST ACUTE TRANSFER SUMMARY: -Pt discharged from [facility] on 04/25/2024. -Post Acute Facility Admitted to [facility] -Admitted for: Subdural hematoma Office PCC will follow at discharge. Madina Amador RN April 26, 2024 10:49 AM documented in this encounter [facility] 04-26-2024 History of Present illness Narrative TRANSITIONAL CARE MANAGEMENT (TCM) COMMUNITY MONITORING PROGRAM - [place] Provider Action/FYI: SUMMARY: Pt discharged from [facility] on 04/25/24. Admitted for: subdural hematoma Patient seen Inpatient DEBBI Visit? N/A. Patient seen ICARE Program? N/A. Contact made with patient: No - next outreach attempt will be on next day Outreach ended Message left for to call office documented in this encounter [facility] 04-17-2024 History of Present illness Narrative Pt current admit. Error documented in this encounter [facility] 02-14-2024 Miscellaneous Notes MESSAGE SENT TO PT ----- Message from Karthik Holliday APRN.RESIDENTIAL REAL ESTATE ASSISTANT sent at 02/14/2024 8:05 AM EDT ----- Normal ankle brachial index at rest in the bilateral leg. Karthik Holliday APRN.CNP February 14, 2024 8:05 AM documented in this encounter [facility] 02-09-2024 Miscellaneous Notes 3/26 Last OV asking for the tamsulosin to be sent to [facility] documented in this encounter [facility] 02-02-2024 Miscellaneous Notes Results sent in my chart ----- Message from Karthik Holliday APRN.RESIDENTIAL REAL ESTATE ASSISTANT sent at 02/02/2024 7:58 AM EDT ----- - Vitamin d level remains low, daily prescription is advised. - Lipid panel is elevated, continue on medications and work on diet and exercise and will recheck in 6 months. - PSA level is elevated, Follow up with Urology recommended. Karthik Holliday APRN.CNP February 02, 2024 7:58 AM documented in this encounter [facility] 02-01-2024 History of Present illness Narrative Images from the original note were not included. [facility] [address] [place] [address] Date of Evaluation: 02/01/2024 Patient Name: Alfonzo Simon : 1960 Chief Complaint: Patient presents with: Established Patient: Transfer of care Nursing Intake: There are no exam notes on file for this visit. Subjective HPI Mr. Simon is a 64 year old male who presents for: Transfer of care. Transfer of care from Dr. Euceda. Reports with healed wound and skin on the right lower extremity. Skin color changes and swelling. HTN has been out of his medications for a few months per patient. Review of Systems Constitutional: Negative for activity change, appetite change, chills and fever. HENT: Negative for ear pain, hearing loss, sinus pressure, sinus pain, sore throat and trouble swallowing. Eyes: Negative for visual disturbance. Respiratory: Negative for cough, chest tightness, shortness of breath and wheezing. Cardiovascular: Positive for leg swelling. Negative for chest pain and palpitations. Gastrointestinal: Negative for abdominal pain, diarrhea, nausea and vomiting. Genitourinary: Negative for dysuria and frequency. Musculoskeletal: Negative for arthralgias and myalgias. Skin: Positive for color change and wound. Negative for pallor and rash. Neurological: Negative for dizziness, light-headedness, numbness and headaches. Psychiatric/Behavioral: Negative for behavioral problems, confusion, hallucinations and suicidal ideas. PAST MEDICAL HISTORY Diagnosis Date Benign prostatic hyperplasia with lower urinary tract symptoms 05/25/2016 Bilateral lower extremity edema 05/25/2016 Bladder mass Bradycardia 05/25/2016 Colon polyp 11/08/2008 benign Essential hypertension 05/25/2016 Obesity, morbid, BMI 40.0-49.9 (HCC) Parkinsonism (HCC) Sleep apnea no machine Systolic murmur 05/25/2016 Vitamin D deficiency 05/25/2016 PAST SURGICAL HISTORY Procedure Laterality Date COLONOSCOPY GEN ANES 10/22/2020 Dr. Iqbal x3 last one in 2019 CYSTOSCOPY 03/2021 Bladder tumor OTHER SURGICAL HISTORY (PLEASE SPECIFY) HX 2017 Prostate surgery TURP FAMILY HISTORY Problem Relation Age of Onset Diabetes Father from complications from DM. Social History Tobacco Use Smoking status: Never Smokeless tobacco: Never Vaping Use Vaping Use: Never used Substance Use Topics Alcohol use: Not Currently Comment: occ. Maybe one drink per week. Drug use: No Current Outpatient Medications Medication Sig polyethylene glycol 3350 (MIRALAX, GLYCOLAX) 17 gram packet Take 1 Packet by mouth once daily as needed for constipation. Dissolve dose in 4 - 8 ounces of liquid and take as directed. lisinopril (ZESTRIL) 40 mg tablet Take 1 tablet by mouth once daily. amLODIPine (NORVASC) 5 mg tablet Take 1 tablet by mouth once daily. atorvastatin (LIPITOR) 20 mg tablet Take 1 tablet by mouth once daily. tamsulosin (FLOMAX) 0.4 mg Take 1 capsule by mouth daily at bedtime. buPROPion XL (WELLBUTRIN XL) 300 mg 24 hr tablet Take 1 tablet by mouth once daily. No current facility-administered medications for this visit. I have confirmed and edited as necessary the chief complaint, medications, past medical, family and social histories obtained by others. Objective BP 146/85 Pulse 57 Resp 18 Ht 6' 0" (1.83m) Wt 315 lb (142.9kg) SpO2 97% BMI 42.71 kg/(m^2). Physical Exam Vitals reviewed. Constitutional: General: He is not in acute distress. Appearance: Normal appearance. He is normal weight. HENT: Head: Normocephalic. Eyes: Extraocular Movements: Extraocular movements intact. Conjunctiva/sclera: Conjunctivae normal. Pupils: Pupils are equal, round, and reactive to light. Cardiovascular: Rate and Rhythm: Normal rate and regular rhythm. Pulses: Normal pulses. Heart sounds: Normal heart sounds. No murmur heard. No friction rub. No gallop. Pulmonary: Effort: Pulmonary effort is normal. Breath sounds: Normal breath sounds. No wheezing, rhonchi or rales. Abdominal: General: Bowel sounds are normal. Palpations: Abdomen is soft. Musculoskeletal: General: Normal range of motion. Cervical back: Normal range of motion. Right lower leg: Edema present. Left lower leg: Edema present. Lymphadenopathy: Cervical: No cervical adenopathy. Skin: General: Skin is warm and dry. Capillary Refill: Capillary refill takes 2 to 3 seconds. Findings: No lesion or rash. Neurological: General: No focal deficit present. Mental Status: He is alert and oriented to person, place, and time. Mental status is at baseline. Psychiatric: Mood and Affect: Mood normal. Behavior: Behavior normal. Data Reviewed: Most recent labs ASSESSMENT/PLAN: 1. Encounter to establish care - ICD9: V65.8, ICD10: Z76.89 (primary diagnosis) - DEPRESSION SCREENING/ASSESSMENT - ADVANCE CARE PLAN DISCUSSION 2. Essential hypertension - ICD9: 401.9, ICD10: I10 - Uncontrolled - Continue current medications - Recommend home blood pressure monitoring, to bring results to next visit - Encouraged sodium restriction, DASH or Mediterranean diet - Recommend regular aerobic exercise - LISINOPRIL 40 MG TABLET - AMLODIPINE 5 MG TABLET - CBC + DIFF - COMP METABOLIC PANEL - LIPID PANEL BASIC - TSH BLD 3. Dyslipidemia - ICD9: 272.4, ICD10: E78.5 - Control undetermined, due for labs - Continue current medications - Counseled on healthy diet and regular exercise - ATORVASTATIN 20 MG TABLET - LIPID PANEL BASIC 4. Benign prostatic hyperplasia with lower urinary tract symptoms, symptom details unspecified - ICD9: 600.01, ICD10: N40.1 - TAMSULOSIN 0.4 MG CAPSULE - PSA/PROSTSPECAG SCRN 5. Screening for HIV (human immunodeficiency virus) - ICD9: V73.89, ICD10: Z11.4 - HIV 1 2 COMBO(AG/AB),WITH REFLEX TO DIFFERENTIATION 6. Vitamin D deficiency - ICD9: 268.9, ICD10: E55.9 - VITAMIN D 25 HYDROXY 7. Screening for prostate cancer - ICD9: V76.44, ICD10: Z12.5 - PSA/PROSTSPECAG SCRN 8. Depression, unspecified depression type - ICD9: 311, ICD10: F32.A - Advised to follow up with Psychiatry as he feels his medications are not helping. - BUPROPION XL 300 MG 24 HR TAB 9. Encounter for immunization - ICD9: V03.89, ICD10: Z23 - PNEUMOCOCCAL VACCINE, 20 VALENT (PREVNAR 20) 10. Venous insufficiency - ICD9: 459.81, ICD10: I87.2 - US ANKLE BRACHIAL INDICES - COMPRESSION STOCKINGS 11. Localized swelling of left lower leg - ICD9: 782.2, ICD10: R22.42 - COMPRESSION STOCKINGS Karthik Holliday APRN.RESIDENTIAL REAL ESTATE ASSISTANT Return in about 6 months (around 08/03/2024) for follow up. Discussed the above with the patient using shared decision making. The patient is in agreement with the diagnostic and treatment plans. documented in this encounter [facility] 03-01-2023 Miscellaneous Notes LVM stating appt scheduled for today at 420 had to be cancelled due to PCP being out of office documented in this encounter [facility] 02-01-2023 Miscellaneous Notes Pharmacy called requesting the following refill Refill(s) Requested: Requested Prescriptions Pending Prescriptions Disp Refills lisinopril (ZESTRIL) 40 mg tablet [Pharmacy Med Name: Lisinopril Oral Tablet 40 MG] 30 tablet 0 Sig: TAKE ONE TABLET BY MOUTH EVERY DAY ALLERGIES No Known Allergies (home) [phone] (cell) Last Office Visit Date: 11/12/2022 Last [facility] Health Visit: Visit date not found Future Appointment: Visit date not found The patients preferred pharmacy has been captured for this encounter? yes Request is for script(s) to be escript to pharmacy. Marybeth Malloy Ma documented in this encounter [facility] 02-01-2023 Miscellaneous Notes Left VM notifying pt that his 3:00 appt had to be cancelled due to Dr not being in the office. CB to reschedule documented in this encounter [facility] 01-18-2023 Instructions Patricia Hsu PA-C - 01/18/2023 2:50 PM EDT Please schedule the brain MRI please schedule with sleep medicine continue with Sinemet three times a day. pleas schedule with physical therapy. try taking the sinemet with meals so you can remember to take it ir try setting an alarm on your phone as a reminder and carry a few pills with you if you go out for the day. return to see Dr. De Oliveira after these other evaluations are complete. documented in this encounter [facility] 01-18-2023 History of Present illness Narrative [facility] - FOLLOW UP EVALUATION Clint Euceda Jr, MD [address] [facility] [address] BY [facility] [id number] Dear Clint Euceda Jr, MD: I had the pleasure of seeing Mr. Simon for follow-up today. As you know he is a 62 year old left-handed male with a history of Parkinson's disease since 2 weeks . He is seen alone. Subjective Previous Plan-10/29/2022 Visit: Parkinsonism - Trial of LD Sleepiness and fatigue - Sleep medicine referral for [facility] - I will consider getting [facility] clinic involved in the future. Interested in clinical research? Not currently Interval History: Alfonzo is here for PD follow up. He has been seen [address] De Oliveira and recently started on Sinemet. He is taking 2 tabs TID. He feels that there is some improvement in the bradykinesias and rigidity. He continues to feel a bit unstable in his gait and hangs on to rosenbaum and furniture. He states that his house is messy and he feels unstable. Here in the clinic he states he more stable. He is unsure if there is any wearing off. He will sometimes be late for a dose or occasionally miss a dose he does not notice it much. There was a brief period where the medication was stopped after a brief hospitalization and he did not notice much. He was hospitalized for pneumonia. He was initially seen by Dr. De Oliveira for falls. At his last visit with Dr. De Oliveira a brain MRI was recommended, but pt has not scheduled that. Sleep medicine was also recommended at that has not been scheduled. Movement Disorders Medications Schedule - as of the start of the visit: Medications 8 12 4 Sinemet 25/100 2 2 2 Parkinson's Motor Complications Medication benefit onset: unclear Medication duration: unclear Wearing off: no Painful off-state dystonia: no Dyskinesia: no Prior Anti-Parkinson Therapies Carbidopa/Levodopa Questionnaires: In addition, the following areas that may be affected by abnormal involuntary movements were evaluated: Daily activities Difficulties with eating: Difficulties in dressing: Difficulties with hygiene activities: Difficulties with handwriting: Difficulties with doing hobbies and other activities: Difficulties turning in bed: Difficulties getting out of bed, car or chair: occasionally Tremors/Gait/Balance Shaking or tremors: Walking and balance problems: yes Number of falls in the Last Month: none Gait freezing: no Autonomic/Pain Lightheadeness on standing: no Urinary problems: no Constipation problems: Pain and other sensations: Speech/Swallowing Speech problems: no Drooling: Chewing and swallowing problems: no Sleep/Fatigue Sleep problems: frequent up to BR, frequent loud snoring. Daytime sleepiness: Fatigue: ALLERGIES No Known Allergies Current Outpatient Medications Medication Sig lisinopril (ZESTRIL, PRINIVIL) 40 mg tablet Take 1 tablet by mouth once daily. chlorthalidone (HYGROTON) 25 mg tablet Take 1 tablet by mouth once daily. amLODIPine (NORVASC) 5 mg tablet Take 1 tablet by mouth once daily. acetaminophen (TYLENOL) 325 mg tablet Take 2 tablets by mouth every 6 hours as needed for pain or fever (specify) (tmax >100.2F). aluminum-magnesium hydroxide-simethicone (MAALOX,MYLANTA,MAG-AL PLUS) 200-200-20 mg/5 mL suspension Take 30 mL by mouth once daily as needed (dyspepsia). polyethylene glycol 3350 (MIRALAX, GLYCOLAX) 17 gram packet Take 1 Packet by mouth once daily as needed for constipation. Dissolve dose in 4 - 8 ounces of liquid and take as directed. atorvastatin (LIPITOR) 20 mg tablet Take 1 tablet by mouth once daily. tamsulosin (FLOMAX) 0.4 mg Take 1 capsule by mouth daily at bedtime. venlafaxine ER (EFFEXOR XR) 75 mg 24 hr capsule Take 75 mg by mouth once daily. Cholecalciferol, Vitamin D3, 50 mcg (2,000 unit) cap Take 1 capsule by mouth once daily. buPROPion XL (WELLBUTRIN XL) 300 mg 24 hr tablet Take 300 mg by mouth once daily. carbidopa-levodopa (SINEMET) 25-100 mg per tablet Take 2 tablets by mouth three times daily. No current facility-administered medications for this visit. Objective Vital Signs: BP 125/73 (BP Site: Left Arm, BP Position: Sitting, BP Cuff Size: Large Adult) Pulse 79 Ht 182.9 cm (6') SpO2 97% BMI 43.59 kg/m Orthostatic Vitals: None for this encounter Height: 182.9 cm (6') No LMP for male patient. Body mass index is 43.59 kg/m . General Physical Examination: General: Awake, alert, interactive, no acute distress, good nutritional status, normal development, mildly un-kempt Only a limited general examination was done. General Neurological Examination: Neurological Exam Mental Status Awake, alert and oriented to person, place and time. Speech is normal. Motor Normal muscle bulk throughout. Normal muscle tone. No abnormal involuntary movements. Coordination Right: Xydiwr-wb-[id number] normal.Left: Rrnouq-gy-esll normal. Gait Casual gait: Wide stance. Reduced stride length. Unable to rise from chair without using arms. Movement Disorders Scales Performed: MDS-UPDRS Motor subscale condition of exam Medication Off/On/Naiive Time of UPDRS Time of Last Medication Last Medication Taken DBS Right DBS Left MDS-UPDRS Motor subscale scores Speech Facial Expression Rigidity Neck Rigidity Right Upper Extremity Rigidity Left Upper Extremity Rigidity Right Lower Extremity Rigidity Left Lower Extremity Finger Taps Right Finger Taps Left Hand Movements Right Hand Movements Left Arm Movements Right Arm Movements Left Toe Taps Right Toe Taps Left Leg Agility Right Leg Agility Left Arise From Chair Gait Gait Freezing Posture Stability Posture Body Bradykinesia Postural Tremor Hand Right Postural Tremor Hand Left Kinetic Tremor Right Kinetic Tremor Left Rest Tremor Amplitude Right Upper Extremity Rest Tremor Amplitude Left Upper Extremity Rest Tremor Amplitude Right Lower Extremity Rest Tremor Amplitude Right Lower Extremity Rest Tremor Amplitude Lip/Jaw Rest Tremor Constancy MDS-UPDRS Motor subscale totals Left Total Right Total Midline Total Tremor Total / 10 PIGD Total / 3 Overall Total % Change Compared to Last Filed Total Assessment and Plan: Assessment Mr. Simon is a left-handed 62 year old year old male with Shuffling of gait and falls. He has had no falls in the last month. He is unsure if the Sinemet is improving his symptoms. he has had some difficulty getting the recommended studies and evaluations scheduled. We discussed the need for those tests to help with future treatment plans. For now he will continue on the Sinemet 2 tabs TID, schedule the MRI, PT and sleep evaluation and return to see Dr. De Oliveira when completed. The following are the current problems noted and addressed during this visit: Parkinsonism, unspecified parkinsonism type (hcc) (primary encounter diagnosis) Plan 01/18/2023 Visit: for the parkinsonism- schedule tests, continue with Sinemet 2 tabs TID - - - Interested in clinical research? Not currently Updated Movement Disorders Medication Schedule: Medications 8 12 4 Sinemet 25/100 2 2 2 Return at or around: 04/20/23 Level of service : 31766 ( 30-39 min). Time spent 30 min on the day of service, which included [id number] patient care, completing clinical documentation, performing a medically appropriate examination, counseling and educating the patient/family/caregiver, and ordering medications, tests, or procedures. Thank you for allowing me to be part of the clinical care of this patient! I look forward to continued participation in the patient s care with you. Please do not hesitate to call with any questions. Sincerely, Patricia L Hennigs, PA-C documented in this encounter [facility] 12-17-2022 Miscellaneous Notes Patient called requesting the following refill Refill(s) Requested: Requested Prescriptions Pending Prescriptions Disp Refills lisinopril (ZESTRIL, PRINIVIL) 40 mg tablet Sig: Take 1 tablet by mouth once daily. ALLERGIES No Known Allergies (home) [phone] (cell) Last Office Visit Date: 11/12/2022 Last [facility] Health Visit: Visit date not found Future Appointment: Visit date not found The patients preferred pharmacy has been captured for this encounter? yes Request is for script(s) to be escript to pharmacy. Marybeth Malloy Ma documented in this encounter [facility] 12-01-2022 History of Present illness Narrative TRANSITION CARE MANAGEMENT (TCM) FOLLOW-UP NOTE Provider Action/FYI Patient identified by name and date of : YES Spoke to patient Summary: Patient feels well and denies fever, sweats, chills, SOB, mucus, cough, or chest pain. Denies any needs at this time. Concerns: None at this time. Orthodontic Laboratory Technician plan for next outreach: No further follow up needed at this time Signature Inna Santillan RN December 01, 2022 documented in this encounter [facility] 11-24-2022 History of Present illness Narrative TRANSITION CARE MANAGEMENT (TCM) FOLLOW-UP NOTE Provider Action/FYManisha Patient identified by name and date of : YES Spoke to patient Summary: Patient feels well and denies fever, sweats, chills, SOB, mucus, cough, or chest pain. Denies any needs at this time. Concerns: None at this time. Orthodontic Laboratory Technician plan for next outreach: Will follow up ~ 1 week Signature Inna Santillan RN November 24, 2022 documented in this encounter [facility] 11-17-2022 History of Present illness Narrative TRANSITION CARE MANAGEMENT (TCM) FOLLOW-UP NOTE Provider Action/FYI Patient identified by name and date of : YES Spoke to patient Summary: Patient is in the Green PNA Zone. He denies chest pain, mucus, fever, cough, or SOB. Concerns: None at this time. Orthodontic Laboratory Technician plan for next outreach: Will follow up ~ 1 week Signature Inna Santillan RN November 17, 2022 documented in this encounter [facility] 11-12-2022 Instructions Rosalinda Olivas APRN.CNP - 11/12/2022 2:18 PM EST ASSESSMENT/PLAN: 1. Hospital discharge follow-up - ICD9: V67.59, ICD10: Z09 (primary diagnosis) - CONSULT TO PHYSICAL THERAPY (AG) 2. Essential hypertension - ICD9: 401.9, ICD10: I10 - good control - Continue current medication(s) - Recommended regular aerobic exercise. - Recommend home blood pressure monitoring, to bring results in on next visit - Goal of BP <130/80 - CHLORTHALIDONE 25 MG TABLET - AMLODIPINE 5 MG TABLET 3. Pneumonia due to influenza A virus - ICD9: 487.0, ICD10: J10.00 - XR CHEST 2V FRONTAL/LAT - CBC + DIFF 4. Weakness - ICD9: 780.79, ICD10: R53.1 - CONSULT TO PHYSICAL THERAPY (AG) 5. Balance problem - ICD9: 781.99, ICD10: R26.89 - CONSULT TO PHYSICAL THERAPY (AG) Rosalinda Olivas APRN.CNP November 12, 2022 2:02 PM documented in this encounter [facility] [place] 11-12-2022 History of Present illness Narrative Transitional Care Management TCM Eligibility Documentation The following information was gathered during the initial Patient Outreach Encounter. Date of Outreach: 11/03/2022 Outreach Attempt 1: Contact Made Date of Discharge 11/01/2022 Some recent data might be hidden Summary Hospital Admit Date: 10/29/2022-11/01/2022 Admitted for: pneumonia Iraida Reese MA Provider Documentation Alfonzo Simon is a 62 year old male here today for a follow up to recent hospitalization. I have reviewed the patient's hospital course including diagnostic testing performed during this hospitalization, their discharge medications, and my assessment and plan with the patient and any family members present at today's visit. HPI: SUMMARY OF WHAT HAPPENED WHILE I WAS IN THE HOSPITAL: 62 yo M presented with altered mental status. Altered mental status due to sepsis.Sepsis influenza A + 10/24/22 CXR findings c/w pneumonia # pneumonia On antibiotics: Ceftriaxone Doxycycline On 11/01/22 pt improved. Discharge on cefuroxime and doxy x 5 days He has a few more doses of antibiotics left. No residual symptoms. Mild cough. He was going to [facility] for parkinsonism and had taken a bus back home, had low oxygen, he was confused at that time. Now back to normal. Review of Systems Constitutional: Negative for chills, fever and weight loss. HENT: Negative for congestion, sinus pain and sore throat. Respiratory: Positive for cough. Negative for hemoptysis, sputum production, shortness of breath and wheezing. Cardiovascular: Negative for chest pain. Gastrointestinal: Negative for abdominal pain, constipation and diarrhea. Genitourinary: Positive for urgency. Negative for dysuria, frequency and hematuria. Working with urology Vitals There were no vitals taken for this visit. BP 124/76 (BP Site: Right Arm, BP Position: Sitting, BP Cuff Size: Large Adult) Pulse (!) 56 Resp 12 Ht 182.9 cm (6') Wt (!) 145.8 kg (321 lb 6.4 oz) SpO2 95% BMI 43.59 kg/m Physical Exam Constitutional: Appearance: Normal appearance. He is obese. HENT: Head: Normocephalic and atraumatic. Right Ear: External ear normal. Left Ear: External ear normal. Ears: Comments: Moderate amt of cerumen in both canals Mouth/Throat: Mouth: Mucous membranes are moist. Eyes: Conjunctiva/sclera: Conjunctivae normal. Pupils: Pupils are equal, round, and reactive to light. Cardiovascular: Rate and Rhythm: Normal rate and regular rhythm. Heart sounds: Normal heart sounds. No murmur heard. Pulmonary: Comments: Right lung sounds with faint crackles Abdominal: General: Bowel sounds are normal. Palpations: Abdomen is soft. Comments: Protuberant abdomen Musculoskeletal: General: Normal range of motion. Cervical back: Normal range of motion and neck supple. Right lower leg: No edema. Left lower leg: No edema. Skin: General: Skin is warm. Capillary Refill: Capillary refill takes less than 2 seconds. Comments: Dry flaking skin on clothes Neurological: Mental Status: He is alert and oriented to person, place, and time. Psychiatric: Mood and Affect: Mood normal. Behavior: Behavior normal. Thought Content: Thought content normal. Judgment: Judgment normal. ASSESSMENT/PLAN: 1. Hospital discharge follow-up - ICD9: V67.59, ICD10: Z09 (primary diagnosis) - CONSULT TO PHYSICAL THERAPY (AG) 2. Essential hypertension - ICD9: 401.9, ICD10: I10 - good control - Continue current medication(s) - Recommended regular aerobic exercise. - Recommend home blood pressure monitoring, to bring results in on next visit - Goal of BP <130/80 - CHLORTHALIDONE 25 MG TABLET - AMLODIPINE 5 MG TABLET 3. Pneumonia due to influenza A virus - ICD9: 487.0, ICD10: J10.00 - XR CHEST 2V FRONTAL/LAT - CBC + DIFF 4. Weakness - ICD9: 780.79, ICD10: R53.1 - CONSULT TO PHYSICAL THERAPY (AG) 5. Balance problem - ICD9: 781.99, ICD10: R26.89 - CONSULT TO PHYSICAL THERAPY (AG) Rosalinda Olivas APRN.CNP November 12, 2022 2:02 PM documented in this encounter [facility] [place] 11-10-2022 Miscellaneous Notes Patient aware He should resume the C/L trial as we had outlined in the clinic. Start taking Sinemet (carbidopa/levodopa) 25/100 as follows: 8 AMNoon5 PM Week 1 Week [id number] I will send another script now. Patient calling to check status of script for C/L sent to his pharmacy 10/29. Upon review, this was discontinued by hospital provider 11/01. Script was previously for 2 tabs TID. D/C instructions updated patient to take 0.5 tab TID but not script was sent. He wants to know if he should be on this medication and at which dose? He needs a new script sent to [facility] on file. documented in this encounter [facility] [place] 11-10-2022 History of Present illness Narrative TRANSITION CARE MANAGEMENT (TCM) FOLLOW-UP NOTE Provider Action/FYI Patient identified by name and date of : YES Spoke to patient Summary: Patient reports that he is doing well. His breathing is normal. He does not smoke or drink heavily. I encouraged patient to eat a healthy diet and reminded him of his upcoming appointment with Dr Olivas on 11/12/22. Concerns: None at this time. Orthodontic Laboratory Technician plan for next outreach: Will follow up ~ 1 week Signature Inna Santillan RN November 10, 2022 documented in this encounter [facility] [place] 10-29-2022 History of Present illness Narrative [facility] - FOLLOW UP EVALUATION Clint Euceda Jr, MD [address] [facility] [address] REPLAC[address] BY [facility] [id number] I had the pleasure of seeing Mr. Simon for follow up today. He is a 62 year old left-handed male with a history of falls since 2 weeks . He is seen alone. Subjective Interval History: Mr. Simon is back today for follow up. He was 1st seen virtually and was thought to have a parkinsonian disorder and was asked to come in person. He started having waking trouble and falls before the 1st appointment in late September 2022. He stated it was 'weeks before' when he was admitted to the hospital and was asked how long he had PD. He was placed on small doses of LD that was not helpful. Since then, he had mood changes and drove to the ED. He had stopped taking his mood medications. He was in a [facility] till 2 weeks ago but insurance ran out and is now back home with his . He denies any falls, shuffling, slowing down, memory decline (although he was unable recall when he started having symptoms), visual hallucinations etc. He states he has a walker but does not use it. He states that he has been walking better. He denies constipation but admits to some lightheadedness on standing up. He admits to having some bladder dysfunction starting several months ago (again he was unable to recall how long). He reports urgency and urge incontinence of small amounts if he does not make it in time. Parkinson's Motor Complications Medication benefit onset: unclear Medication duration: unclear Wearing off: no Painful off-state dystonia: no Dyskinesia: no Prior Anti-Parkinson Therapies Carbidopa/Levodopa Questionnaires In addition, the following areas that may be affected by abnormal involuntary movements were evaluated: Daily activities Difficulties with eatin (none) Difficulties in dressin (none) Difficulties with hygiene activities: 0 (none) Difficulties with handwritin (none) Difficulties with doing hobbies and other activities: 0 (none) Difficulties turning in bed: 0 (none) Difficulties getting out of bed, car or chair: Yes (mild) Tremors/Gait/Balance Shaking or tremors: 0 (none) Walking and balance problems: Yes (slight) Number of falls in the Last Month: 1 Gait freezin (none) Autonomic/Pain Lightheadeness on standin (none) Urinary problems: Yes (moderate) Constipation problems: 0 (none) Pain and other sensations: 0 (none) Speech/Swallowing Speech problems: 0 (none) Drooling: Yes (slight) Chewing and swallowing problems: 0 (none) Sleep/Fatigue Sleep problems: Yes (moderate) Daytime sleepiness: Yes (mild) Fatigue: 0 (none) Mood/Behavior Depression: PHQ-9 Score: 0 usually representing no significant (0-4) depression. Anxiety: SKYLAR-7 Total Score: 0 usually representing no significant (0-4) anxiety. Finally, the following table shows the patient's overall global physical and mental health using the PROMIS scale: PROMIS-10 Flowsheet Row [facility] from 10/07/2022 in Neurology OT/PT/Speech Visit from 01/20/2021 in [facility] Global Physical Health T Score 39.8 39.8 Global Mental Health T Score 41.1 43.5 0-10 Standard Pain Scale 4 4 *PROMIS-10 scoring scale: mean = 50, over 50 is above average, under 50 is below average ALLERGIES No Known Allergies Current Outpatient Medications Medication Sig acetaminophen (TYLENOL) 325 mg tablet Take 2 tablets by mouth every 6 hours as needed for pain or fever (specify) (tmax >100.2F). guaiFENesin (MUCINEX) 600 mg 12 hr tablet Take 1 tablet by mouth every 12 hours as needed for cold/allergy symptoms (cough and congestion). polyethylene glycol 3350 (MIRALAX, GLYCOLAX) 17 gram packet Take 1 Packet by mouth once daily as needed for constipation. Dissolve dose in 4 - 8 ounces of liquid and take as directed. amLODIPine (NORVASC) 5 mg tablet Take 1 tablet by mouth once daily. atorvastatin (LIPITOR) 20 mg tablet Take 1 tablet by mouth once daily. chlorthalidone (HYGROTON) 25 mg tablet Take 1 tablet by mouth once daily. tamsulosin (FLOMAX) 0.4 mg Take 1 capsule by mouth daily at bedtime. venlafaxine ER (EFFEXOR XR) 75 mg 24 hr capsule Take 75 mg by mouth once daily. Cholecalciferol, Vitamin D3, 50 mcg (2,000 unit) cap Take 1 capsule by mouth once daily. buPROPion XL (WELLBUTRIN XL) 300 mg 24 hr tablet Take 300 mg by mouth once daily. carbidopa-levodopa (SINEMET) 25-100 mg per tablet Take 2 tablets by mouth three times daily. aluminum-magnesium hydroxide-simethicone (MAALOX,MYLANTA,MAG-AL PLUS) 200-200-20 mg/5 mL suspension Take 30 mL by mouth once daily as needed (dyspepsia). benzocaine-menthol (CEPACOL) 15-3.6 mg lozg Use 1 Lozenge as instructed every 2 hours as needed (cough, sore throat). potassium-sodium phosphates (NEUTRA-PHOS,PHOS-NAK) 280-160-250 mg pwpk Take 1 Packet by mouth twice daily with meals for 3 days. No current facility-administered medications for this visit. Objective Vital Signs: BP 149/75 (BP Site: Left Arm, BP Position: Sitting, BP Cuff Size: Large Adult) Pulse 60 SpO2 93% Orthostatic Vitals: None for this encounter No LMP for male patient. There is no height or weight on file to calculate BMI. General Physical Examination: He is alone. General: Awake, alert, interactive, no acute distress, good nutritional status, normal development, unkempt. He had dandruff on his shirt, evidence of food. His pants were torn and his short was not covering his back. He appeared to be in his pajamas. He had a box in his right pocket for change. General Neurological Examination: Neurological Exam Mental Status Oriented only to person, place and situation. Mild dysarthria present. Language is fluent with no aphasia. Unable to perform serial calculations. Fund of knowledge is appropriate for level of education. Cranial Nerves CN VII: Full and symmetric facial movement. CN VIII: Hearing is normal. CN XI: Shoulder shrug strength is normal. Motor Normal muscle bulk throughout. No fasciculations present. Increased muscle tone. Rigidity in neck and right more than left side of the body. The following abnormal movements were seen: Reduced blink rate Paucity of movement Significantly impaired finger tapping and hand movement of right more than left side Impaired toe tapping and heel tapping bilaterally . Strength is 5/5 throughout all four extremities. Coordination Right: [id number] normal.Left: [id number]-hg-[id number] normal. Gait Casual gait: Normal stance. Reduced stride length. Shuffling gait. Reduced right arm swing. Reduced left arm swing.Normal toe walking. Normal heel walking. Tandem gait abnormality: Normal pull test. Unable to rise from chair without using arms. Movement Disorders Cognitive and Motor Biomeasures: Processing Speed Test Total Number Correct:35; Z Score: -0.68 Visual Memory Test Raw Score: 66; Z Score: 1.52 Manual Dexterity Test (max = 180 secs) Left Hand Time: 36.62; Right Hand Time: 40.21 Walking Speed Test (25 foot walk): *Z score interpretation: higher than -1.5 is within normal; -1.5 to -2.0 represents mild impairment; lower than -2.0 represents significant impairment Movement Disorders Scales Performed: MDS-UPDRS Motor subscale condition of exam Medication Off/On/Naiive OFF Time of UPDRS 1127 Time of Last Medication Last Medication Taken DBS Right DBS Left N/A MDS-UPDRS Motor subscale scores Speech 2-Mild. Loss of modulation, diction, or volume, with a few words unclear, but the overall sentences easy to follow. Facial Expression 3-Moderate. Masked facies with lips parted some of the time when the mouth is at rest. Rigidity Neck 3-Moderate. Rigidity detected without the activation maneuver. Full range of motion is achieved with effort. Rigidity Right Upper Extremity 3-Moderate. Rigidity detected without the activation maneuver. Full range of motion is achieved with effort. Rigidity Left Upper Extremity 2-Mild. Rigidity detected without the activation maneuver, but full range of motion is easily achieved. Rigidity Right Lower Extremity 3-Moderate. Rigidity detected without the activation maneuver. Full range of motion is achieved with effort. Rigidity Left Lower Extremity 2-Mild. Rigidity detected without the activation maneuver, but full range of motion is easily achieved. Finger Taps Right 2-Mild. a) 3 to 5 interruptions during tapping, b) mild slowing, c) the amplitude decrements midway in the 10-tap sequence. Finger Taps Left 2-Mild. a) 3 to 5 interruptions during tapping, b) mild slowing, c) the amplitude decrements midway in the 10-tap sequence. Hand Movements Right 2-Mild. a) 3 to 5 interruptions during the movements, b) mild slowing, c) the amplitude decrements midway in the task. Hand Movements Left 2-Mild. a) 3 to 5 interruptions during the movements, b) mild slowing, c) the amplitude decrements midway in the task. Arm Movements Right 3-Moderate. a) more than 5 interruptions during the movement or at least one longer arrest (freeze) in ongoing movement, b) moderate slowing, c) the amplitude decrements starting after the 1st supination-pronation sequence. Arm Movements Left 3-Moderate. a) more than 5 interruptions during the movement or at least one longer arrest (freeze) in ongoing movement, b) moderate slowing, c) the amplitude decrements starting after the 1st supination-pronation sequence. Toe Taps Right 2-Mild. a) 3 to 5 interruptions during the tapping movements, b) mild slowing, c) the amplitude decrements midway in the task. Toe Taps Left 2-Mild. a) 3 to 5 interruptions during the tapping movements, b) mild slowing, c) the amplitude decrements midway in the task. Leg Agility Right 1-Slight. a) the regular rhythm is broken with one or two interruptions or hesitations of the movement, b) slight slowing, c) the amplitude decrements near the end of the task. Leg Agility Left 1-Slight. a) the regular rhythm is broken with one or two interruptions or hesitations of the movement, b) slight slowing, c) the amplitude decrements near the end of the task. Arise From Chair 1-Slight. Arising is slower than normal, or may need more than one attempt, or may need to move forward in the chair to arise. No need to use the arms of the chair. Gait 2-Mild. Independent walking but with substantial gait impairment. Gait Freezing 0-Normal. No freezing. Posture Stability 0-Normal. No problems: recovers with one or two steps. Posture 1-Slight. Not quite erect, but posture could be normal for older person. Body Bradykinesia 3-Moderate. Moderate global slowness and poverty of spontaneous movements. Postural Tremor Hand Right 1-Slight. Tremor is present but less than 1cm in amplitude. Postural Tremor Hand Left 1-Slight. Tremor is present but less than 1cm in amplitude. Kinetic Tremor Right 1-Slight. Tremor is present but less than 1cm in amplitude. Kinetic Tremor Left 1-Slight. Tremor is present but less than 1cm in amplitude. Rest Tremor Amplitude Right Upper Extremity 0-Normal. No tremor. Rest Tremor Amplitude Left Upper Extremity 0-Normal. No tremor. Rest Tremor Amplitude Right Lower Extremity 0-Normal. No tremor. Rest Tremor Amplitude Right Lower Extremity 0-Normal. No tremor. Rest Tremor Amplitude Lip/Jaw 0-Normal. No tremor. Rest Tremor Constancy 0-Normal. No tremor. MDS-UPDRS Motor subscale totals Left Total 16 Right Total 18 Midline Total 15 Tremor Total / 10 4 PIGD Total / 3 2 Overall Total 49 % Change Compared to Last Filed Total Assessment and Plan: Assessment Mr. Simon is a left-handed 62 year old year old male with Shuffling of gait and falls Clear parkinsonism on examination. Together with his appearance and early gait problems, I suspect an atypical parkinsonian disorder, perhaps DLB. We agreed to try Sinemet in a higher dose and to return to clinic in 3 months. I also shared with him that he had deep white matter changes in the brain (more prominent on the left MCA region with what appear to be left head of caudate stroke) and we agreed to get an MRI brain as well. He also reports fatigue and sleepiness and snoring, I will get a sleep medicine consult to find out if he has HARJEET. The following are the current problems noted and addressed during this visit: Parkinsonism, unspecified parkinsonism type (hcc) (primary encounter diagnosis) Harjeet (obstructive sleep apnea) Plan 10/29/2022 Visit: Parkinsonism - Trial of LD Sleepiness and fatigue - Sleep medicine referral for HARJEET Memory - I will consider getting Brain Health clinic involved in the future. Interested in clinical research? Not currently Level of service : [id number] (40-54 min). Time spent 50 min on the day of service, which included preparing to see the patient, [id number] patient care, completing clinical documentation, obtaining and/or reviewing separately obtained history, performing a medically appropriate examination, counseling and educating the patient/family/caregiver, and ordering medications, tests, or procedures. Thank you for allowing me to be part of the clinical care of this patient! I look forward to continued participation in the patient s care with you. Please do not hesitate to call with any questions. Sincerely, Josse De Oliveira MD documented in this encounter [facility] [place] 10-29-2022 Instructions Josse De Oliveira MD - 10/29/2022 9:52 AM EST You do have parkinsonism on examination. Although it is possible it is from Parkinson's disease, I am concerned about the early falls and that it may be from an atypical parkinsonian disorder. In any case, we will try a Parkinson disease medication as follows: Start taking Sinemet (carbidopa/levodopa) 25/100 as follows: 8 AM Noon 5 PM Week 1 Week 2 1 1 1 Week 3 1 1 1 Week 4 2 2 2 I also want you to get an MRI of the brain. I am also referring you to the sleep clinic and to have a sleep study. documented in this encounter [facility] [place] 10-21-2022 Instructions Paul Mccall MD - 10/21/2022 3:46 PM EST It was great to see you today! I think you need to get your sleep apnea treated and I'll bet your urinary nighttime symptoms vastly improve. I'll see you back in a year. Have a Merry [place]! documented in this encounter [facility] [place] 10-21-2022 History of Present illness Narrative Images from the original note were not included. [facility] ESTABLISHED PATIENT OFFICE VISIT HISTORY OF PRESENT ILLNESS Alfonzo Simon is a 62 year old male who presents with bph. S/p TURP 2016 and repeat in 2020. Was in hospital w/ parkinson like symptoms in August and we were consulted for some frequency. US at that time showed normal kidneys and empty bladder. Says currently having frequency of urination and nocturia 3-4x. Has been on going for several months Emptying well and stream is good, much improved over preop 2020. Has HARJEET and not treating. Blood sugars have been good. Patient Entered Questionnaires PROMIS Global Health PROMIS Global Health Scale 01/20/2021 10/05/2022 Physical Health Percentile 15 % 15 % Mental Health Percentile 26 % 19 % Percentiles provide an indication of how the patient's score ranks in relation to the general population. Higher percentile rankings indicate better function/quality of life. 50th percentile is the average of the general population and indicates half of respondents had a worse score. Review of Systems The remainder of the ROS was reviewed and is negative. LAB Creatinine Date Value Ref Range Status 09/06/2022 1.17 0.73 - 1.22 mg/dL Final PSA (ng/mL) Date Value 05/25/2016 2.33 GLUCOSE UA (POCT) Negative 03/18/2021 BILIRUBIN UA (POCT) Negative 03/18/2021 KETONE UA (POCT) Negative 03/18/2021 SPECIFIC GRAVITY UA (POCT) >=1.030 03/18/2021 HEMOGLOBIN/BLOOD UA (POCT) Small 03/18/2021 PH UA (POCT) 5.5 03/18/2021 PROTEIN UA (POCT) Negative 03/18/2021 UROBILINOGEN UA (POCT) 0.2 03/18/2021 NITRITE UA (POCT) Negative 03/18/2021 LEUKOCYTES UA (POCT) Negative 03/18/2021 COLOR UA (POCT) Yellow 03/18/2021 CLARITY UA (POCT) Clear 03/18/2021 MEDICATIONS acetaminophen (TYLENOL) 325 mg tablet Take 2 tablets by mouth every 6 hours as needed for pain or fever (specify) (tmax >100.2F). aluminum-magnesium hydroxide-simethicone (MAALOX,MYLANTA,MAG-AL PLUS) 200-200-20 mg/5 mL suspension Take 30 mL by mouth once daily as needed (dyspepsia). benzocaine-menthol (CEPACOL) 15-3.6 mg lozg Use 1 Lozenge as instructed every 2 hours as needed (cough, sore throat). carbidopa-levodopa (SINEMET 25-100) 25-100 mg per tablet Take 0.5 tablets by mouth twice daily. guaiFENesin (MUCINEX) 600 mg 12 hr tablet Take 1 tablet by mouth every 12 hours as needed for cold/allergy symptoms (cough and congestion). polyethylene glycol 3350 (MIRALAX, GLYCOLAX) 17 gram packet Take 1 Packet by mouth once daily as needed for constipation. Dissolve dose in 4 - 8 ounces of liquid and take as directed. amLODIPine (NORVASC) 5 mg tablet Take 1 tablet by mouth once daily. potassium-sodium phosphates (NEUTRA-PHOS,PHOS-NAK) 280-160-250 mg pwpk Take 1 Packet by mouth twice daily with meals for 3 days. atorvastatin (LIPITOR) 20 mg tablet Take 1 tablet by mouth once daily. chlorthalidone (HYGROTON) 25 mg tablet Take 1 tablet by mouth once daily. tamsulosin (FLOMAX) 0.4 mg Take 1 capsule by mouth daily at bedtime. venlafaxine ER (EFFEXOR XR) 75 mg 24 hr capsule Take 75 mg by mouth once daily. Cholecalciferol, Vitamin D3, 50 mcg (2,000 unit) cap Take 1 capsule by mouth once daily. buPROPion XL (WELLBUTRIN XL) 300 mg 24 hr tablet Take 300 mg by mouth once daily. HISTORIES PAST MEDICAL HISTORY Diagnosis Date Benign prostatic hyperplasia with lower urinary tract symptoms 05/25/2016 Bilateral lower extremity edema 05/25/2016 Bladder mass Bradycardia 05/25/2016 Colon polyp 11/08/2008 benign Essential hypertension 05/25/2016 Obesity, morbid, BMI 40.0-49.9 (HCC) Sleep apnea no machine Systolic murmur 05/25/2016 Vitamin D deficiency 05/25/2016 PAST SURGICAL HISTORY Procedure Laterality Date COLONOSCOPY GEN ANES 10/22/2020 Dr. Iqbal x3 last one in 2019 CYSTOSCOPY 03/2021 Bladder tumor OTHER SURGICAL HISTORY (PLEASE SPECIFY) HX 2017 Prostate surgery TURP FAMILY HISTORY Problem Relation Age of Onset Diabetes Father from complications from DM. SOCIAL HISTORY Social History Tobacco Use Smoking status: Never Smokeless tobacco: Never Vaping Use Vaping Use: Never used Substance Use Topics Alcohol use: Yes Comment: occ. Maybe one drink per week. Drug use: No BP 128/94 Pulse 67 SpO2 96% Physical Exam Vitals and nursing note reviewed. Constitutional: Appearance: He is well-developed. HENT: Head: Normocephalic. Pulmonary: Effort: Pulmonary effort is normal. Skin: General: Skin is warm and dry. Neurological: Mental Status: He is alert and oriented to person, place, and time. Psychiatric: Behavior: Behavior normal. Thought Content: Thought content normal. Judgment: Judgment normal. IMAGING ASSESSMENT/PLAN: 1. Benign prostatic hyperplasia with lower urinary tract symptoms, symptom details unspecified - ICD9: 600.01, ICD10: N40.1 (primary diagnosis) 2. Urinary frequency - ICD9: 788.41, ICD10: R35.0 - BLADDER SCAN Reviewed urinary symptoms. Seems like his nocturia may very well be related to his untreated moderate to severe sleep apnea. Is going to meet with his 5 primary care physician next week. He will discuss this with him at that time. I reassured him that if he gets his sleep apnea under control his nighttime urinary symptoms will likely improve greatly. No obstructive symptoms at this time. Can follow-up with me in a year. Paul Mccall Medical Decision Making: Problems: Moderate: 2+ stable chronic illnesses Data: Unique test result(s) reviewed: 1 Unique test(s) ordered: 1 Risk: Low: Low risk from testing/treatment Medical Decision Making Level: 3 - Low This note was partially created using voice recognition software and is inherently subject to errors including those of syntax and "sound-alike" substitutions which may escape proofreading. In such instances, original meaning may be extrapolated by contextual derivation. documented in this encounter [facility] 10-08-2022 History of Present illness Narrative TRANSITIONAL CARE MANAGEMENT (TCM) COMMUNITY MONITORING PROGRAM - [place] Provider Action/FYI: SUMMARY: Pt discharged from [facility] on 10/05/22. Admitted for: Parkinsonism Contact made with patient: No - next outreach attempt will be on next business day Outreach ended TRANSITIONAL CARE MANAGEMENT (TCM) COMMUNITY MONITORING PROGRAM - [facility] Provider Action/FYI: SUMMARY: Pt discharged from [facility] on 10/05/22. Admitted for: Parkinsonism Contact made with patient: Yes Hi my name is Moo Dumont RN and I am calling from the [facility] on behalf of your PCP, Clint Euceda Jr, MD I understand you were recently in the hospital so I am calling to check in with you to ensure you are feeling well now that you re home. Do you mind if I ask you a few questions related to your hospital stay and well-being Yes Contact with patient post discharge, spoke to patient. Patient identified by name and . Do you feel your health is BETTER, WORSE, or the SAME since leaving the hospital? Better ACTION TAKEN: Patient indicated symptoms are better or same, no action required. Continue outreach. MEDICATIONS: Many patients have questions or concerns about their medications once they are home. Do you have any questions about taking your medications or which medication you should be on? No Do you need any medication refills at this time, including any of the medications you might take only when needed? No ACTION TAKEN: No action required For RNs or Pharmacy completing outreach ONLY, was a medication review completed? Yes SOCIAL: We would like to make sure you have what you need so that your basics needs are met - including your personal safety, food, housing and medications. Would you like to speak with a social work logistics team leader to help give you support for any of these needs? No It can be normal to feel anxious or down during a time like this. Would you like to talk to a mental health professional about how you have been feeling? No ACTION TAKEN: No action taken DISCHARGE INTRUCTIONS: Your discharge instructions / After Visit Summary (AVS) are important in guiding you through the recovery process. Do you have any questions related to your discharge instructions? No Do you have all the necessary equipment and supplies at home? Yes ACTION TAKEN: No action required Thank you for talking with me today. I would like to help you schedule a hospital follow-up virtual or telephone visit with your PCP. This is a great way for you to connect with your provider to ensure you have safely transitioned home. If you are agreeable, I will send your request to a sales representative printing supplies who will contact and assist you with that appointment. This will give you an opportunity to ask any questions or address any concerns you may have with your PCP. Inform the patient that if they have any questions or concerns prior to that appointment, to call their PCP's office right away. ACTION TAKEN: Appointment scheduled for 10/28/22 Your doctor would like us to remind you of the recommendations regarding the coronavirus (Covid19) outbreak: Avoid public places as much as possible. Avoid close contact (within 6 feet) with others you don't live with, especially if they are sick. Stay home if you are sick. Wash your hands regularly for at least 20 seconds with soap and water. Wear a cloth mask in public places to help reduce community spread. Do not go to your Doctor's office unless instructed to do so. For any non-emergency symptoms, call your Doctor's office to get instructions on how to manage (we might recommend a telephone or virtual visit). For emergency symptoms, proceed to Emergency Department as usual but inform them of cough and fever symptoms [place] if present (or call on the way if possible). documented in this encounter [facility] 10-07-2022 Note HNO ID: [id number] Author: Josse De Oliveira MD Service: ? Author Type: Physician Type: Progress Notes Filed: 10/07/2022 8:38 AM Note Text: [facility] - NEW PATIENT EVALUATION Clint Euceda Jr [address] [place] [address] REPLACED BY [facility] [id number] Clint Euceda Jr, MD [address] [place] [address] REPLACED BY [facility] [id number] Euceda: I had the pleasure of evaluating Mr. Simon to our clinic today. As you know he is a 62 year old left-handed male who is seen in consultation for evaluation of falls since 2 weeks . He is seen alone. We had a visit using: InterAtlas I received consent from the patient to perform the visit using this platform. 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 He has a Hx of HARJEET, BPH, HTN, overweight ('300 something') and DLD. He started having balance problems ' a few weeks ago'. He says he has the problem that when he falls he is unable to get up. He was in the hospital and was asked repeatedly how long he has had Parkinson. He was never diagnosed with this. He was started on Sinemet in the hospital that he continues even in the rehab but never felt any better with it. He has been on 1/2 a tablet twice daily. He has not side effects. Sense of smell is pretty good. He has not tremor, memory issues. His voice has not changes. Handwriting size has not changed. He does not have RBD. He does have constipation. He says he tries 'not to shuffle' when he walks. This has been going on for the 'past few years or so'. He has been having some balance problems for the last 2 years, he tends to grab on to things around that helps keep him up. He started falling 2 weeks ago and has fallen 3 times. He tends to fall forward. The [facility] was trying to work on the posture to stand upright but admits that he stands farheen forward normally. He denies lightheadedness on standing up but he has to heave up and push himself up. He admits that he has slowed down and moves slowly when he walks. Memory is 'pretty much OK'. He does not smoke. Drinks once a month, a couple of glasses of wine. No recreational drugs. He lives with his . No one in the family has a neurological disorder like parkinsonism. Parkinson's Medications Schedule - as of the start of the visit: Medications 7AM 8-9PM Sinemet 25/100 0.5 0.5 Parkinson's Motor Complications Medication benefit onset: unclear Medication duration: unclear Wearing off: no Painful off-state dystonia: no Dyskinesia: no Questionnaires: In addition, the following areas that may be affected by abnormal involuntary movements were evaluated: Daily activities Difficulties with eatin (none) Difficulties in dressing: Yes (slight) Difficulties with hygiene activities: 0 (none) Difficulties with handwritin (none) Difficulties with doing hobbies and other activities: 0 (none) Difficulties turning in bed: 0 (none) Difficulties getting out of bed, car or chair: Yes (mild) Tremors/Gait/Balance Shaking or tremors: 0 (none) Walking and balance problems: Yes (mild) Number of falls in the Last Month: 3 Gait freezin (none) Autonomic/Pain Lightheadeness on standing: Yes (mild) Urinary problems: Yes (mild) Constipation problems: Yes (slight) Pain and other sensations: Yes (slight) Speech/Swallowing Speech problems: 0 (none) Drooling: Yes (mild) Chewing and swallowing problems: 0 (none) Sleep/Fatigue Sleep problems: Yes (slight) Daytime sleepiness: Yes (mild) Fatigue: Yes (slight) Mood/Behavior Depression: PHQ-9 Score: 0 usually representing no significant (0-4) depression. Anxiety: SKYLAR-7 Total Score: 0 usually representing no significant (0-4) anxiety. Finally, the following table shows the patient's overall global physical and mental health using the PROMIS scale: PROMIS-10 Flowsheet Row Distance Health from 10/07/2022 in Neurology OT/PT/Speech Visit from 01/20/2021 in [facility] Global Physical Health T Score 39.8 39.8 Global Mental Health T Score 41.1 43.5 0-10 Standard Pain Scale 4 4 *PROMIS-10 scoring scale: mean = 50, over 50 is above average, under 50 is below average In addition, the following Parkinson Lifestyle-associated features were evaluated: Conditions Prior to Dx: Depression: Yes Anxiety: No Melanoma: No Constipation: No Yelling: No Head Trauma: No Habits/exposures Prior to Dx Smoking: No Caffeinated coffee (1-cup+): No Caffeinated soda/tea (2 cups+): Yes (and still do) Alcohol (1 bottle/shot/glass+): No Exercise (3x/wk+): No Ibuprofen use (1x/wk+): No Pesticides: No Welding: No Review of Systems ALLERGIES No Known Allergies Current Outpatient Medications Medication Sig acetaminophen (TYLENOL) 325 mg tablet Take 2 tablets by mouth every 6 hours as needed for pain or fev (more content not included)... [facility] 10-07-2022 History of Present illness Narrative [facility] - NEW PATIENT EVALUATION Clint Euceda Jr [address] [place] [address] REPLACED BY [facility] [id number] Clint Euceda Jr, MD [address] [place] [address] REPLACED BY [facility] [id number] Euceda: I had the pleasure of evaluating Mr. Simon to our clinic today. As you know he is a 62 year old left-handed male who is seen in consultation for evaluation of falls since 2 weeks . He is seen alone. We had a visit using: InterAtlas I received consent from the patient to perform the visit using this platform. 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 He has a Hx of HARJEET, BPH, HTN, overweight ('300 something') and DLD. He started having balance problems ' a few weeks ago'. He says he has the problem that when he falls he is unable to get up. He was in the hospital and was asked repeatedly how long he has had Parkinson. He was never diagnosed with this. He was started on Sinemet in the hospital that he continues even in the rehab but never felt any better with it. He has been on 1/2 a tablet twice daily. He has not side effects. Sense of smell is pretty good. He has not tremor, memory issues. His voice has not changes. Handwriting size has not changed. He does not have RBD. He does have constipation. He says he tries 'not to shuffle' when he walks. This has been going on for the 'past few years or so'. He has been having some balance problems for the last 2 years, he tends to grab on to things around that helps keep him up. He started falling 2 weeks ago and has fallen 3 times. He tends to fall forward. The [facility] was trying to work on the posture to stand upright but admits that he stands farheen forward normally. He denies lightheadedness on standing up but he has to heave up and push himself up. He admits that he has slowed down and moves slowly when he walks. Memory is 'pretty much OK'. He does not smoke. Drinks once a month, a couple of glasses of wine. No recreational drugs. He lives with his . No one in the family has a neurological disorder like parkinsonism. Parkinson's Medications Schedule - as of the start of the visit: Medications 7AM 8-9PM Sinemet 25/100 0.5 0.5 Parkinson's Motor Complications Medication benefit onset: unclear Medication duration: unclear Wearing off: no Painful off-state dystonia: no Dyskinesia: no Questionnaires: In addition, the following areas that may be affected by abnormal involuntary movements were evaluated: Daily activities Difficulties with eatin (none) Difficulties in dressing: Yes (slight) Difficulties with hygiene activities: 0 (none) Difficulties with handwritin (none) Difficulties with doing hobbies and other activities: 0 (none) Difficulties turning in bed: 0 (none) Difficulties getting out of bed, car or chair: Yes (mild) Tremors/Gait/Balance Shaking or tremors: 0 (none) Walking and balance problems: Yes (mild) Number of falls in the Last Month: 3 Gait freezin (none) Autonomic/Pain Lightheadeness on standing: Yes (mild) Urinary problems: Yes (mild) Constipation problems: Yes (slight) Pain and other sensations: Yes (slight) Speech/Swallowing Speech problems: 0 (none) Drooling: Yes (mild) Chewing and swallowing problems: 0 (none) Sleep/Fatigue Sleep problems: Yes (slight) Daytime sleepiness: Yes (mild) Fatigue: Yes (slight) Mood/Behavior Depression: PHQ-9 Score: 0 usually representing no significant (0-4) depression. Anxiety: SKYLAR-7 Total Score: 0 usually representing no significant (0-4) anxiety. Finally, the following table shows the patient's overall global physical and mental health using the PROMIS scale: PROMIS-10 Flowsheet Row Distance Health from 10/07/2022 in Neurology OT/PT/Speech Visit from 01/20/2021 in [facility] Global Physical Health T Score 39.8 39.8 Global Mental Health T Score 41.1 43.5 0-10 Standard Pain Scale 4 4 *PROMIS-10 scoring scale: mean = 50, over 50 is above average, under 50 is below average In addition, the following Parkinson Lifestyle-associated features were evaluated: Conditions Prior to Dx: Depression: Yes Anxiety: No Melanoma: No Constipation: No Yelling: No Head Trauma: No Habits/exposures Prior to Dx Smoking: No Caffeinated coffee (1-cup+): No Caffeinated soda/tea (2 cups+): Yes (and still do) Alcohol (1 bottle/shot/glass+): No Exercise (3x/wk+): No Ibuprofen use (1x/wk+): No Pesticides: No Welding: No Review of Systems ALLERGIES No Known Allergies Current Outpatient Medications Medication Sig acetaminophen (TYLENOL) 325 mg tablet Take 2 tablets by mouth every 6 hours as needed for pain or fever (specify) (tmax >100.2F). aluminum-magnesium hydroxide-simethicone (MAALOX,MYLANTA,MAG-AL PLUS) 200-200-20 mg/5 mL suspension Take 30 mL by mouth once daily as needed (dyspepsia). benzocaine-menthol (CEPACOL) 15-3.6 mg lozg Use 1 Lozenge as instructed every 2 hours as needed (cough, sore throat). carbidopa-levodopa (SINEMET 25-100) 25-100 mg per tablet Take 0.5 tablets by mouth twice daily. guaiFENesin (MUCINEX) 600 mg 12 hr tablet Take 1 tablet by mouth every 12 hours as needed for cold/allergy symptoms (cough and congestion). polyethylene glycol 3350 (MIRALAX, GLYCOLAX) 17 gram packet Take 1 Packet by mouth once daily as needed for constipation. Dissolve dose in 4 - 8 ounces of liquid and take as directed. amLODIPine (NORVASC) 5 mg tablet Take 1 tablet by mouth once daily. potassium-sodium phosphates (NEUTRA-PHOS,PHOS-NAK) 280-160-250 mg pwpk Take 1 Packet by mouth twice daily with meals for 3 days. atorvastatin (LIPITOR) 20 mg tablet Take 1 tablet by mouth once daily. chlorthalidone (HYGROTON) 25 mg tablet Take 1 tablet by mouth once daily. tamsulosin (FLOMAX) 0.4 mg Take 1 capsule by mouth daily at bedtime. venlafaxine ER (EFFEXOR XR) 75 mg 24 hr capsule Take 75 mg by mouth once daily. Cholecalciferol, Vitamin D3, 50 mcg (2,000 unit) cap Take 1 capsule by mouth once daily. buPROPion XL (WELLBUTRIN XL) 300 mg 24 hr tablet Take 300 mg by mouth once daily. No current facility-administered medications for this visit. Past Medical and Surgical History: has a past medical history of Benign prostatic hyperplasia with lower urinary tract symptoms (05/25/2016), Bilateral lower extremity edema (05/25/2016), Bladder mass, Bradycardia (05/25/2016), Colon polyp (11/08/2008), Essential hypertension (05/25/2016), Obesity, morbid, BMI 40.0-49.9 ([facility]), Sleep apnea, Systolic murmur (05/25/2016), and Vitamin D deficiency (05/25/2016). He has no past medical history of Awareness under anesthesia, Delayed emergence from general anesthesia, Hard to intubate, Malignant hyperthermia, Motion sickness, PONV (postoperative nausea and vomiting), Pseudocholinesterase deficiency, or Spinal headache. has a past surgical history that includes other surgical history (please specify) hx (2017); colonoscopy gen anes (10/22/2020); and cystoscopy (03/2021). Social History Tobacco Use Smoking status: Never Smokeless tobacco: Never Vaping Use Vaping Use: Never used Substance Use Topics Alcohol use: Yes Comment: occ. Maybe one drink per week. Drug use: No Family History: family history includes Diabetes in his father. Objective Vital Signs: There were no vitals taken for this visit. Orthostatic Vitals: None for this encounter No LMP for male patient. There is no height or weight on file to calculate BMI. General Physical Examination: General Exam General Neurological Examination: Neurological Exam Assessment and Plan: Assessment Mr. Simon is a left-handed 62 year old year old male with Shuffling of gait and falls Gradual onset of gait instability and now falls with inability to stand up. He was thought to have PD when in the hospital but there was no consult to neurology and LD dose was very small. We spoke about either increasing the dose and returning to see me in person or stopping the medication and coming to see me in person before we decide about medication. He wanted to do the latter. I will ask him about urinary symptoms when I see him in person. The following are the current problems noted and addressed during this visit: Shuffling gait (primary encounter diagnosis) Gait instability Interested in clinical research? Not currently Updated Parkinson's Medication Schedule: Medications 7AM 8-9PM Sinemet 25/100 0.5 0.5 Return at or around: 10/21/22 Level of service : 43418 (30-44 min). Time spent 30 min on the day of service, which included preparing to see the patient, [id number] patient care, completing clinical documentation, obtaining and/or reviewing separately obtained history, performing a medically appropriate examination, and counseling and educating the patient/family/caregiver. Thank you for allowing me to be part of the clinical care of this patient! I look forward to continued participation in the patient s care with you. Please do not hesitate to call with any questions. Sincerely, Josse De Oliveira MD documented in this encounter [facility] 09-29-2022 History of Present illness Narrative TRANSITION CARE MANAGEMENT (TCM) FOLLOW-UP NOTE Provider Sylvia/FRANK Patient remains at [facility] receiving skilled care. [phone]. Orthodontic Laboratory Technician plan for next outreach: Will follow up 1 week Signature Moo Dumont RN September 29, 2022 documented in this encounter [facility] 09-24-2022 Miscellaneous Notes Neurology Referral place through the [facility] Portal on September 24, 2022. #[id number] Preferred Provider Dr. roxy Dickerson documented in this encounter [facility] 09-21-2022 History of Present illness Narrative TRANSITION CARE MANAGEMENT (TCM) FOLLOW-UP NOTE Provider Sylvia/FRANK Patient is still on skilled unit and receiving skilled care at [facility] [phone] Orthodontic Laboratory Technician plan for next outreach: Will follow up 1 week Signature Moo Dumont RN September 21, 2022 documented in this encounter [facility] 09-18-2022 Miscellaneous Notes Pt states he has had several falls, balance unsteady, and shaky had to go to ER documented in this encounter [facility] 09-08-2022 Miscellaneous Notes Pt known to Dr Mccall. He was a no show on 09/03 to an appt with Mitzi. Pt seen on consult for urinary frequency. He needs a f/u appt scheduled. Thanks documented in this encounter [facility] 09-07-2022 History of Present illness Narrative TRANSITION CARE MANAGEMENT (TCM) DISCHARGE TO POST ACUTE FACILITY POST ACUTE TRANSFER SUMMARY: -Pt discharged from [facility] on 09/06/22. -Post Acute Facility Admitted to [facility] -Admitted for: Parkinsonism Moo Dumont RN documented in this encounter [facility] 09-03-2022 Miscellaneous Notes Pt called states pt has been admitted to [facility] documented in this encounter [facility] 09-03-2022 History of Present illness Narrative The patient did not show up for this appointment. documented in this encounter [facility] 09-01-2022 Ivette Menon APRN.RESIDENTIAL REAL ESTATE ASSISTANT - 09/01/2022 3:17 PM EDT (W19.XXXA) Fall, initial encounter (primary encounter diagnosis) Plan: CONSULT TO EMERGENCY MEDICINE Multiple falls over the last couple months for un-balance issues, worse in the last week. Needs ER evaluation now. Vitals are stable to private transport. documented in this encounter [facility] 09-01-2022 History of Present illness Narrative This note was created using eReplacementster. Subjective Alfonzo Simon is a 62 year old male. HPI by patient and friend: Alfonzo Simon is a 62 year old male presenting to the office with the complaint of multiple falls. Started several months prior, states probably the beginning of summer or more. Worse in the last week. Friend with patient states he called primary care and was told to go to the ER. [facility] to see if that would get him in the ER faster. Has fallen at least 5 times in the last week but his friend says falling daily if not more. The falls are not always witnessed but states he hasn't hit his head and hasn't lost consciousness. Last fell on pavement and now has a sore left elbow- this is at a [employer] and wasn't able to get up right away. Associated symptoms include feeling "off balance" but denies dizziness. Does have some shortness of breath but this isn't new. Has been more fatigued- can fall asleep quickly. Denies dizziness, chest pain, and racing heart. Denies using crutches, canes, or walkers. Denies gi symptoms but states he may not be drinking as much fluid as he should. Friend states the patient has fallen in the past but not like this where it is almost a daily thing. OTC not used. No antibiotic use in the last 60 days. ALLERGIES No Known Allergies Family History Reviewed Including Cardiac Diseases, Psychiatric Diseases, & Substance Abuse Problem: Diabetes Relation: Father Age of Onset: (Not Specified) Comment: from complications from DM. Social History Tobacco Use Smoking status: Never Smokeless tobacco: Never Vaping Use Vaping Use: Never used Alcohol use: Yes Comment: occ. Maybe one drink per week. Drug use: No Active Ambulatory Problems Essential hypertension Date Noted: 05/25/2016 Benign prostatic hyperplasia with lower urinary tract symptoms Date Noted: 05/25/2016 Vitamin D deficiency Date Noted: 05/25/2016 Bradycardia Date Noted: 05/25/2016 Systolic murmur Date Noted: 05/25/2016 Dyslipidemia Date Noted: 02/10/2018 HARJEET (obstructive sleep apnea) Date Noted: 02/10/2018 Obesity, Class III, BMI >= 40 E66.01 Date Noted: 02/13/2018 Closed fracture of shaft of left ulna with routine healing Date Noted: 10/03/2019 Closed fracture of right tibial plateau Date Noted: 10/03/2019 Frequency of urination Date Noted: 12/23/2020 Nocturia Date Noted: 12/23/2020 Knee instability, unspecified laterality Date Noted: 12/25/2020 General weakness Date Noted: 01/20/2021 Physical deconditioning Date Noted: 01/20/2021 Liver hemangioma Date Noted: 06/04/2021 Resolved Ambulatory Problems Bilateral lower extremity edema Date Noted: 05/25/2016 Obesity, Class II, BMI 35-39.9 Date Noted: 06/28/2018 Closed fracture of left tibial plateau Date Noted: 09/13/2019 Past Medical History: No date: Bladder mass 11/08/2008: Colon polyp No date: Obesity, morbid, BMI 40.0-49.9 (HCC) No date: Sleep apnea Review of Systems Constitutional: Positive for fatigue. Negative for chills and fever. HENT: Negative. Eyes: Negative. Respiratory: Negative. Cardiovascular: Negative. Gastrointestinal: Negative. Endocrine: Negative. Genitourinary: Negative. Musculoskeletal: Negative. Skin: Negative. Neurological: Negative for dizziness and weakness. Off balance Objective BP 128/72 Pulse 83 Resp 16 Ht 182.9 cm (6') Wt (!) 150.6 kg (332 lb) SpO2 97% BMI 45.03 kg/m Physical Exam Vitals reviewed. Constitutional: General: He is awake. He is not in acute distress. Appearance: He is not ill-appearing, toxic-appearing or diaphoretic. HENT: Head: Normocephalic and atraumatic. Right Ear: Tympanic membrane, ear canal and external ear normal. There is no impacted cerumen. Left Ear: Tympanic membrane, ear canal and external ear normal. There is no impacted cerumen. Eyes: Extraocular Movements: Right eye: Nystagmus present. Left eye: Nystagmus present. Conjunctiva/sclera: Conjunctivae normal. Pupils: Pupils are equal, round, and reactive to light. Cardiovascular: Rate and Rhythm: Normal rate and regular rhythm. Pulmonary: Effort: Pulmonary effort is normal. Breath sounds: Normal breath sounds. Neurological: Mental Status: He is alert. Psychiatric: Behavior: Behavior is cooperative. Assessment and Plan (W19.XXXA) Fall, initial encounter (primary encounter diagnosis) Plan: CONSULT TO EMERGENCY MEDICINE (R26.89) Balance problem (R53.83) Fatigue, unspecified type Plan: Multiple falls over the last couple months for balance issues, friend states falls are daily and patient is by himself sometimes. Unable to fully work up in [facility]. Vitals are stable to private transport. The patient is agreeable to this plan of care and follow-up instructions have been explained in detail. The patient has received these instructions in written format and have expressed an understanding of the after visit summary. documented in this encounter [facility] 05-08-2022 Instructions Rosalinda Olivas APRN.CNP - 05/08/2022 7:43 AM EDT ASSESSMENT/PLAN: 1. Chronic midline thoracic back pain - ICD9: 724.1, 338.29, ICD10: M54.6, G89.29 (primary diagnosis) - Ice for localized tenderness - Warm moist heat for 20 min three times a day - NSAIDS- see orders - PT consult - CONSULT TO PHYSICAL THERAPY (AG) - MELOXICAM 7.5 MG TABLET If not improved to call office and we will order MRI and consult to spine orthopedics 2. Dyslipidemia - ICD9: 272.4, ICD10: E78.5 - ATORVASTATIN 20 MG TABLET Rosalinda Olivas APRN.CNP documented in this encounter [facility] 05-08-2022 History of Present illness Narrative Images from the original note were not included. Alfonzo Simon is a 62 year old male who presents for Back Pain (upper back, last few months, furniture walking) Here for upper back pain concerns: He also struggles with balance. The history is provided by the patient. No bilingual speech language pathologist was used. Back Pain This is a chronic problem. Episode onset: a few months. The problem occurs daily. The problem has not changed since onset.The pain is associated with no known injury. The pain is present in the thoracic spine. The quality of the pain is described as aching. The pain does not radiate. The pain is at a severity of 4/10. The pain is moderate. The symptoms are aggravated by bending, twisting and certain positions (sitting and leaning forward). The pain is worse during the day. Pertinent negatives include no chest pain, no fever, no numbness, no headaches, no abdominal pain, no bowel incontinence, no bladder incontinence, no paresthesias, no paresis, no tingling and no weakness. He has tried analgesics for the symptoms. The treatment provided mild relief. Risk factors include lack of exercise, a sedentary lifestyle, obesity and poor posture. Last 3 Encounter BP Readings: Date: BP: 05/08/2022 143/93 04/10/2022 155/88 03/09/2022 205/106 Last 2 Encounter Wt Readings: Date: Wt: 05/08/2022 139.3 kg (307 lb) 04/10/2022 143.1 kg (315 lb 6.4 oz) BP 143/93 Pulse 69 Temp 97.7 Resp 20 Ht 6' 0" (1.83m) Wt 307 lb (139.3kg) SpO2 98% BMI 41.63 kg/(m^2). PAST MEDICAL HISTORY Diagnosis Date Benign prostatic hyperplasia with lower urinary tract symptoms 05/25/2016 Bilateral lower extremity edema 05/25/2016 Bladder mass Bradycardia 05/25/2016 Colon polyp 11/08/2008 benign Essential hypertension 05/25/2016 Obesity, morbid, BMI 40.0-49.9 (HCC) Sleep apnea no machine Systolic murmur 05/25/2016 Vitamin D deficiency 05/25/2016 PAST SURGICAL HISTORY Procedure Laterality Date COLONOSCOPY GEN ANES 10/22/2020 Dr. Iqbal x3 last one in 2019 CYSTOSCOPY 03/2021 Bladder tumor OTHER SURGICAL HISTORY (PLEASE SPECIFY) HX 2017 Prostate surgery TURP Social History Tobacco Use Smoking status: Never Smoker Smokeless tobacco: Never Used Vaping Use Vaping Use: Never used Substance Use Topics Alcohol use: Yes Comment: occ. Maybe one drink per week. Drug use: No Family history reviewed. ALLERGIES No Known Allergies Current Outpatient Medications Medication Sig atorvastatin (LIPITOR) 20 mg tablet Take 1 tablet by mouth once daily. chlorthalidone (HYGROTON) 25 mg tablet Take 1 tablet by mouth once daily. amLODIPine (NORVASC) 5 mg tablet Take 1 tablet by mouth once daily. lisinopril (ZESTRIL, PRINIVIL) 40 mg tablet Take 1 tablet by mouth once daily. tamsulosin (FLOMAX) 0.4 mg Take 1 capsule by mouth daily at bedtime. venlafaxine (EFFEXOR) 50 mg tablet Take 50 mg by mouth once daily. Cholecalciferol, Vitamin D3, (VITAMIN D-3) 50 mcg (2,000 unit) cap Take by mouth once daily. buPROPion XL (WELLBUTRIN XL) 300 mg 24 hr tablet Take by mouth once daily. meloxicam (MOBIC) 7.5 mg tablet Take 1 tablet by mouth once daily. No current facility-administered medications for this visit. Review of Systems Constitutional: Negative for chills and fever. Cardiovascular: Negative for chest pain. Gastrointestinal: Negative for abdominal pain and bowel incontinence. Genitourinary: Negative for bladder incontinence. Musculoskeletal: Positive for back pain. Negative for falls, joint pain, myalgias and neck pain. Neurological: Negative for tingling, weakness, numbness, headaches and paresthesias. All other systems reviewed and are negative. Physical Exam Vitals reviewed. Constitutional: Appearance: Normal appearance. He is obese. Comments: Poor hygiene, malodorous HENT: Head: Normocephalic and atraumatic. Right Ear: Ear canal and external ear normal. Left Ear: Ear canal and external ear normal. Nose: Nose normal. Mouth/Throat: Mouth: Mucous membranes are moist. Eyes: Conjunctiva/sclera: Conjunctivae normal. Pupils: Pupils are equal, round, and reactive to light. Cardiovascular: Rate and Rhythm: Normal rate and regular rhythm. Heart sounds: Normal heart sounds. Pulmonary: Effort: Pulmonary effort is normal. Breath sounds: Normal breath sounds. Abdominal: General: Bowel sounds are normal. Palpations: Abdomen is soft. Musculoskeletal: Cervical back: Normal, normal range of motion and neck supple. Normal range of motion. Thoracic back: Tenderness present. No spasms. Normal range of motion. Back: Right lower leg: No edema. Left lower leg: No edema. Comments: + upper back tenderness + curvature upper spine kyphosis + upper back fat pad Poor posture noted Lymphadenopathy: Cervical: No cervical adenopathy. Skin: General: Skin is warm. Capillary Refill: Capillary refill takes less than 2 seconds. Neurological: Mental Status: He is alert and oriented to person, place, and time. Psychiatric: Mood and Affect: Mood normal. Behavior: Behavior normal. Thought Content: Thought content normal. Judgment: Judgment normal. ASSESSMENT/PLAN: 1. Chronic midline thoracic back pain - ICD9: 724.1, 338.29, ICD10: M54.6, G89.29 (primary diagnosis) - Ice for localized tenderness - Warm moist heat for 20 min three times a day - NSAIDS- see orders - PT consult - CONSULT TO PHYSICAL THERAPY (AG) - MELOXICAM 7.5 MG TABLET If not improved to call office and we will order MRI and consult to spine orthopedics 2. Dyslipidemia - ICD9: 272.4, ICD10: E78.5 - ATORVASTATIN 20 MG TABLET 3. Balance problem - ICD9: 781.99, ICD10: R26.89 - CONSULT TO PHYSICAL THERAPY (AG) Rosalinda Olivas APRN.RESIDENTIAL REAL ESTATE ASSISTANT Return if symptoms worsen or fail to improve. Discussed above plan with patient. Pt agreeable with above plan. documented in this encounter [facility] 04-10-2022 History of Present illness Narrative Images from the original note were not included. Clint Euceda Jr., M.D. [facility] [address] [place] [address] Date of Evaluation: 04/10/2022 Patient Name: Alfonzo Simon : 1960 Chief Complaint: Patient presents with: Refill Request: CHLOROTHILADONE AND TAMSULOSIN Blood Pressure Check Nursing Intake: There are no exam notes on file for this visit. Subjective Mr. Simon is a 62 year old male who presents with the following complaint(s): HPI Patient states he ran out of chlorthalidone about a week ago but has continued to take 5 mg of amlodipine and 40 mg of lisinopril daily. He needs renewals of all those meds and also tamsulosin that he takes at bedtime and a atorvastatin. His venlafaxine and bupropion are handled by [employer]. He denies any problems at this time and generally feels well. Review of Systems Constitutional: Negative for fever and weight loss. HENT: Negative for congestion, ear pain and nosebleeds. Eyes: Negative for blurred vision and double vision. Respiratory: Negative for cough and shortness of breath. Cardiovascular: Negative for chest pain and palpitations. Gastrointestinal: Negative for abdominal pain and heartburn. Genitourinary: Negative for dysuria and frequency. Musculoskeletal: Negative for back pain, joint pain and myalgias. Skin: Negative for itching and rash. Neurological: Negative for dizziness and focal weakness. Psychiatric/Behavioral: Negative for depression. The patient is not nervous/anxious. PAST MEDICAL HISTORY Diagnosis Date Benign prostatic hyperplasia with lower urinary tract symptoms 05/25/2016 Bilateral lower extremity edema 05/25/2016 Bladder mass Bradycardia 05/25/2016 Colon polyp 11/08/2008 benign Essential hypertension 05/25/2016 Obesity, morbid, BMI 40.0-49.9 (HCC) Sleep apnea no machine Systolic murmur 05/25/2016 Vitamin D deficiency 05/25/2016 PAST SURGICAL HISTORY Procedure Laterality Date COLONOSCOPY GEN ANES 10/22/2020 Dr. Iqbal x3 last one in 2019 CYSTOSCOPY 03/2021 Bladder tumor OTHER SURGICAL HISTORY (PLEASE SPECIFY) HX 2017 Prostate surgery TURP FAMILY HISTORY Problem Relation Age of Onset Diabetes Father from complications from DM. Social History Tobacco Use Smoking status: Never Smoker Smokeless tobacco: Never Used Vaping Use Vaping Use: Never used Substance Use Topics Alcohol use: Yes Comment: occ. Maybe one drink per week. Drug use: No Current Meds atorvastatin (LIPITOR) 20 mg tablet TAKE ONE TABLET BY MOUTH EVERY DAY venlafaxine (EFFEXOR) 50 mg tablet Take 50 mg by mouth once daily. lisinopril (ZESTRIL, PRINIVIL) 40 mg tablet TAKE ONE TABLET BY MOUTH EVERY DAY amLODIPine (NORVASC) 5 mg tablet Take 1 tablet by mouth once daily. Cholecalciferol, Vitamin D3, (VITAMIN D-3) 50 mcg (2,000 unit) cap Take by mouth once daily. tamsulosin (FLOMAX) 0.4 mg Take 1 capsule by mouth daily at bedtime. chlorthalidone (HYGROTON) 25 mg tablet Take 1 tablet by mouth once daily. buPROPion XL (WELLBUTRIN XL) 300 mg 24 hr tablet Take by mouth once daily. I have confirmed and edited as necessary the chief complaint, medications, past medical, family and social histories obtained by others. Objective BP 155/88 Pulse 60 Resp 15 Ht 0' 6" (0.15m) Wt 315 lb 6.4 oz (143.1kg) SpO2 97% BMI 6192.22 kg/(m^2). Physical Exam Vitals and nursing note reviewed. HENT: Head: Normocephalic. Right Ear: External ear normal. Left Ear: External ear normal. Eyes: Pupils: Pupils are equal, round, and reactive to light. Cardiovascular: Rate and Rhythm: Normal rate and regular rhythm. Heart sounds: Normal heart sounds. Pulmonary: Effort: Pulmonary effort is normal. Breath sounds: Normal breath sounds. Abdominal: General: Bowel sounds are normal. Palpations: Abdomen is soft. There is no mass. Musculoskeletal: General: No tenderness. Normal range of motion. Cervical back: Normal range of motion and neck supple. Lymphadenopathy: Cervical: No cervical adenopathy. Skin: General: Skin is warm and dry. Neurological: Mental Status: He is alert and oriented to person, place, and time. Gait: Gait is intact. Deep Tendon Reflexes: Reflexes are normal and symmetric. Psychiatric: Mood and Affect: Mood and affect normal. ASSESSMENT/PLAN: 1. Benign prostatic hyperplasia with lower urinary tract symptoms, symptom details unspecified - ICD9: 600.01, ICD10: N40.1 (primary diagnosis) - TAMSULOSIN 0.4 MG CAPSULE 2. Essential hypertension - ICD9: 401.9, ICD10: I10 - noncompliance - Restart chlorthalidone - Recommended regular aerobic exercise. - Recommend home blood pressure monitoring, to bring results in on next visit - Goal of BP <130/80 - CHLORTHALIDONE 25 MG TABLET - AMLODIPINE 5 MG TABLET - LISINOPRIL 40 MG TABLET 3. Dyslipidemia - ICD9: 272.4, ICD10: E78.5 - to be determined upon return of lab results - Continue current medication. - LIPID PANEL BASIC - AST/SGOT BLD Discussed with patient restarting chlorthalidone, continuing other chronic meds and obtaining a lipid panel and liver test in the next month or 2 in a fasting condition. Will phone call follow-up those results and see patient back in 6 months while on medication. Clint Euceda Jr, MD No follow-ups on file. The above diagnoses & plan of care have been created and agreed upon with the patient. This note was partially generated using avocarrot voice recognition system, and there may be some incorrect words, spellings, and punctuation that were not noted in checking the note before saving. documented in this encounter [facility] 03-24-2022 Miscellaneous Notes Pharmacy faxed requesting the following refill Refill(s) Requested: Pending Prescriptions Disp Refills ATORVASTATIN 20 MG TABLET 30 tablet 0 Sig: TAKE ONE TABLET BY MOUTH EVERY DAY CARITO: Yes ALLERGIES No Known Allergies (home) [phone] (cell) Last Office Visit Date: 06/04/2021 Last Distance Health Visit: Visit date not found Future Appointment: Visit date not found The patients preferred pharmacy has been captured for this encounter? yes Request is for script(s) to be escript to pharmacy. Divya Abreu LPN documented in this encounter [facility] 02-19-2022 History of Present illness Narrative Images from the original note were not included. Paul Lorenz MD [facility] [address] [place] [address] [employer] / [address] [place] [address] Visit Date: February 19, 2022 Name: Alfonzo Simon Date of : 1960 MRN/E #: [id number] Chief Complaint: No chief complaint on file. Subjective Alfonzo Simon is a 62 year old male here with the following complaints: Patient is here to follow up on high blood pressure and postural dizziness. Was taken off Metoprolol and dizziness went away. Blood pressure is much better today, likely due to compliance. He is currently on Chlorthalidone, Lisinopril, and amlodipine. Denies SOB, chest pain, N/V/diarrhea. Review of Systems Constitutional: Negative for activity change, appetite change, chills, fatigue and fever. HENT: Negative for congestion, nosebleeds, postnasal drip, rhinorrhea, sinus pressure and sore throat. Respiratory: Negative for cough, shortness of breath and wheezing. Cardiovascular: Negative for chest pain, palpitations and leg swelling. Gastrointestinal: Negative for abdominal distention, abdominal pain, blood in stool, constipation, diarrhea, nausea and vomiting. Neurological: Negative for dizziness, light-headedness and headaches. Social History Tobacco Use Smoking status: Never Smoker Smokeless tobacco: Never Used Vaping Use Vaping Use: Never used Substance Use Topics Alcohol use: Yes Comment: occ. Maybe one drink per week. Drug use: No ALLERGIES No Known Allergies Current Outpatient Medications Medication Sig venlafaxine (EFFEXOR) 50 mg tablet Take 50 mg by mouth once daily. lisinopril (ZESTRIL, PRINIVIL) 40 mg tablet TAKE ONE TABLET BY MOUTH EVERY DAY amLODIPine (NORVASC) 5 mg tablet Take 1 tablet by mouth once daily. Cholecalciferol, Vitamin D3, (VITAMIN D-3) 50 mcg (2,000 unit) cap Take by mouth once daily. (Patient not taking: Reported on 01/19/2022 ) tamsulosin (FLOMAX) 0.4 mg Take 1 capsule by mouth daily at bedtime. atorvastatin (LIPITOR) 20 mg tablet Take 1 tablet by mouth once daily. chlorthalidone (HYGROTON) 25 mg tablet Take 1 tablet by mouth once daily. ketoconazole (NIZORAL) 2 % shampoo Once a week buPROPion XL (WELLBUTRIN XL) 300 mg 24 hr tablet Take by mouth once daily. No current facility-administered medications for this visit. I have confirmed and edited as necessary the chief complaint, medications, past medical, family and social histories. Objective There were no vitals filed for this visit. There is no height or weight on file to calculate BMI. Physical Exam Vitals and nursing note reviewed. Constitutional: Appearance: Normal appearance. Cardiovascular: Rate and Rhythm: Normal rate and regular rhythm. Pulses: Normal pulses. Heart sounds: Normal heart sounds. Skin: Capillary Refill: Capillary refill takes less than 2 seconds. Neurological: General: No focal deficit present. Mental Status: He is alert and oriented to person, place, and time. Recent Labs No visits with results within 1 Day(s) from this visit. 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 Negative for COVID19 (SARS CoV2) by RT-PCR or equivalent method. Final Comment: This test was developed and its performance characteristics determined by [facility] [place]. This test has been authorized by FDA under an Emergency Use Authorization (EUA). This test has been validated in accordance with the FDA's Guidance Document Policy for Diagnostics Testing in Laboratories Certified to Perform High Complexity Testing under CLIA prior to Emergency use Authorization for Coronavirus Disease 2019 during the Public Health Emergency" issued on January 06, 2020. Test performed by [facility], [facility] [place], [address] [place] [address]. Results for orders placed or performed in visit on 10/24/21 COVID WITH FLUA+B, ROUTINE Specimen: OTHER; Nasal Swab Result Value Ref Range COVID 19 Source ELECTROSTATIC POWDER COATING TECHNICIAN UPPER RESPIRATORY TRACT SWAB Influenza A PCR Negative for Influenza A by RT PCR Influenza B PCR Negative for Influenza B by RT PCR COVID 19 Result ELECTROSTATIC POWDER COATING TECHNICIAN Negative for COVID19 (SARS CoV2) by RT-PCR or equivalent method. Negative for COVID19 (SARS CoV2) by RT-PCR or equivalent method. ASSESSMENT/PLAN: 1. Essential hypertension - ICD9: 401.9, ICD10: I10 (primary diagnosis) - Well controlled today. Will keep on current medications 2. halfway current use of diuretic - ICD9: V58.69, ICD10: Z79.899 - Will check potassium every 6 months - BASIC METABOLIC PNL Paul Lorenz MD No follow-ups on file. Discussed the above with the patient using shared decision-making. The patient is in agreement with the diagnostic and treatment plans. Provider: Paul Lorenz M.D. Date: February 19, 2022 Time: 1:09 PM documented in this encounter [facility] 09-13-2019 History of Past i llness Narrative Problem Noted Date Resolved Date Closed fracture of left tibial plateau 9 12/25/2020 Obesity, Class II, BMI 35-39.9 06/28/2018 0 12/25/2020 Bilateral lower extremity edema 05/25/2016 12/25/2020 documented as of this encounter (statuses as of 02/23/2022) [facility] History of Past illness Narrative* Problem Noted Date Resolved Date Closed fracture of left tibial plateau 9 12/25/2020 Obesity, Class II, BMI 35-39.9 06/28/2018 0 12/25/2020 Bilateral lower extremity edema 05/25/2016 12/25/2020 documented as of this encounter (statuses as of 03/24/2022) [facility] History of Past illness Narrative* Problem Noted Date Resolved Date Closed fracture of left tibial plateau 9 12/25/2020 Obesity, Class II, BMI 35-39.9 06/28/2018 0 12/25/2020 Bilateral lower extremity edema 05/25/2016 12/25/2020 documented as of this encounter (statuses as of 04/10/2022) [facility] History of Past illness Narrative* Problem Noted Date Resolved Date Closed fracture of left tibial plateau 9 12/25/2020 Obesity, Class II, BMI 35-39.9 06/28/2018 0 12/25/2020 Bilateral lower extremity edema 05/25/2016 12/25/2020 documented as of this encounter (statuses as of 05/08/2022) [facility] History of Past illness Narrative* Problem Noted Date Resolved Date Closed fracture of left tibial plateau 9 12/25/2020 Obesity, Class II, BMI 35-39.9 06/28/2018 0 12/25/2020 Bilateral lower extremity edema 05/25/2016 12/25/2020 documented as of this encounter (statuses as of 09/01/2022) [facility] History of Past illness Narrative* Problem Noted Date Resolved Date Closed fracture of left tibial plateau 9 12/25/2020 Obesity, Class II, BMI 35-39.9 06/28/2018 0 12/25/2020 Bilateral lower extremity edema 05/25/2016 12/25/2020 documented as of this encounter (statuses as of 09/03/2022) [facility] History of Past illness Narrative* Problem Noted Date Resolved Date Closed fracture of left tibial plateau 9 12/25/2020 Obesity, Class II, BMI 35-39.9 06/28/2018 0 12/25/2020 Bilateral lower extremity edema 05/25/2016 12/25/2020 documented as of this encounter (statuses as of 09/07/2022) [facility] History of Past illness Narrative* Problem Noted Date Resolved Date Closed fracture of left tibial plateau 9 12/25/2020 Obesity, Class II, BMI 35-39.9 06/28/2018 0 12/25/2020 Bilateral lower extremity edema 05/25/2016 12/25/2020 documented as of this encounter (statuses as of 09/08/2022) [facility] History of Past illness Narrative* Problem Noted Date Resolved Date Closed fracture of left tibial plateau 9 12/25/2020 Obesity, Class II, BMI 35-39.9 06/28/2018 0 12/25/2020 Bilateral lower extremity edema 05/25/2016 12/25/2020 documented as of this encounter (statuses as of 09/21/2022) [facility] [place]11-06-2019 History of Past illness Narrative* Problem Noted Date Resolved Date Closed fracture of left tibial plateau 9 12/25/2020 Obesity, Class II, BMI 35-39.9 06/28/2018 0 12/25/2020 Bilateral lower extremity edema 05/25/2016 12/25/2020 documented as of this encounter (statuses as of 09/22/2022) [facility] [place]-06-2019 History of Past illness Narrative* Problem Noted Date Resolved Date Closed fracture of left tibial plateau 9 12/25/2020 Obesity, Class II, BMI 35-39.9 06/28/2018 0 12/25/2020 Bilateral lower extremity edema 05/25/2016 12/25/2020 documented as of this encounter (statuses as of 09/24/2022) [facility] [place]-06-2019 History of Past illness Narrative* Problem Noted Date Resolved Date Closed fracture of left tibial plateau 9 12/25/2020 Obesity, Class II, BMI 35-39.9 06/28/2018 0 12/25/2020 Bilateral lower extremity edema 05/25/2016 12/25/2020 documented as of this encounter (statuses as of 09/25/2022) [facility] [place]-2019 History of Past illness Narrative* Problem Noted Date Resolved Date Closed fracture of left tibial plateau 9 12/25/2020 Obesity, Class II, BMI 35-39.9 06/28/2018 0 12/25/2020 Bilateral lower extremity edema 05/25/2016 12/25/2020 documented as of this encounter (statuses as of 09/29/2022) [facility] [place]-06-2019 History of Past illness Narrative* Problem Noted Date Resolved Date Closed fracture of left tibial plateau 9 12/25/2020 Obesity, Class II, BMI 35-39.9 06/28/2018 0 12/25/2020 Bilateral lower extremity edema 05/25/2016 12/25/2020 documented as of this encounter (statuses as of 10/07/2022) [facility] [place]-06-2019 History of Past illness Narrative* Problem Noted Date Resolved Date Closed fracture of left tibial plateau 9 12/25/2020 Obesity, Class II, BMI 35-39.9 06/28/2018 0 12/25/2020 Bilateral lower extremity edema 05/25/2016 12/25/2020 documented as of this encounter (statuses as of 10/09/2022) [facility] [place]-2019 History of Past illness Narrative* Problem Noted Date Resolved Date Closed fracture of left tibial plateau 9 12/25/2020 Obesity, Class II, BMI 35-39.9 06/28/2018 0 12/25/2020 Bilateral lower extremity edema 05/25/2016 12/25/2020 documented as of this encounter (statuses as of 10/21/2022) [facility] [place]-06-2019 History of Past illness Narrative* Problem Noted Date Resolved Date Closed fracture of left tibial plateau 9 12/25/2020 Obesity, Class II, BMI 35-39.9 06/28/2018 0 12/25/2020 Bilateral lower extremity edema 05/25/2016 12/25/2020 documented as of this encounter (statuses as of 10/30/2022) [facility] [place]2019 History of Past illness Narrative* Problem Noted Date Resolved Date Closed fracture of left tibial plateau 9 12/25/2020 Obesity, Class II, BMI 35-39.9 06/28/2018 0 12/25/2020 Bilateral lower extremity edema 05/25/2016 12/25/2020 documented as of this encounter (statuses as of 11/12/2022) [facility] [place]-06[facility]2019 History of Past illness Narrative* Problem Noted Date Resolved Date Closed fracture of left tibial plateau 9 12/25/2020 Obesity, Class II, BMI 35-39.9 06/28/2018 0 12/25/2020 Bilateral lower extremity edema 05/25/2016 12/25/2020 documented as of this encounter (statuses as of 11/12/2022) [facility] [place]-06-2019 History of Past illness Narrative* Problem Noted Date Resolved Date Closed fracture of left tibial plateau 9 12/25/2020 Obesity, Class II, BMI 35-39.9 06/28/2018 0 12/25/2020 Bilateral lower extremity edema 05/25/2016 12/25/2020 documented as of this encounter (statuses as of 11/13/2022) [facility] [place]2019 History of Past illness Narrative* Problem Noted Date Resolved Date Closed fracture of left tibial plateau 9 12/25/2020 Obesity, Class II, BMI 35-39.9 06/28/2018 0 12/25/2020 Bilateral lower extremity edema 05/25/2016 12/25/2020 documented as of this encounter (statuses as of 11/17/2022) [facility] [place]2019 History of Past illness Narrative* Problem Noted Date Resolved Date Closed fracture of left tibial plateau 9 12/25/2020 Obesity, Class II, BMI 35-39.9 06/28/2018 0 12/25/2020 Bilateral lower extremity edema 05/25/2016 12/25/2020 documented as of this encounter (statuses as of 11/24/2022) [facility] [place]-06[facility]2019 History of Past illness Narrative* Problem Noted Date Resolved Date Closed fracture of left tibial plateau 9 12/25/2020 Obesity, Class II, BMI 35-39.9 06/28/2018 0 12/25/2020 Bilateral lower extremity edema 05/25/2016 12/25/2020 documented as of this encounter (statuses as of 12/01/2022) [facility] [place]2019 History of Past illness Narrative* Problem Noted Date Resolved Date Closed fracture of left tibial plateau 9 12/25/2020 Obesity, Class II, BMI 35-39.9 06/28/2018 0 12/25/2020 Bilateral lower extremity edema 05/25/2016 12/25/2020 documented as of this encounter (statuses as of 12/17/2022) [facility] [place]-06-2019 History of Past illness Narrative* Problem Noted Date Resolved Date Closed fracture of left tibial plateau 9 12/25/2020 Obesity, Class II, BMI 35-39.9 06/28/2018 0 12/25/2020 Bilateral lower extremity edema 05/25/2016 12/25/2020 documented as of this encounter (statuses as of 01/19/2023) [facility] [place]-06[facility]2019 History of Past illness Narrative* Problem Noted Date Resolved Date Closed fracture of left tibial plateau 9 12/25/2020 Obesity, Class II, BMI 35-39.9 06/28/2018 0 12/25/2020 Bilateral lower extremity edema 05/25/2016 12/25/2020 documented as of this encounter (statuses as of 02/01/2023) [facility] [place]-06[facility]2019 History of Past illness Narrative* Problem Noted Date Resolved Date Closed fracture of left tibial plateau 9 12/25/2020 Obesity, Class II, BMI 35-39.9 06/28/2018 0 12/25/2020 Bilateral lower extremity edema 05/25/2016 12/25/2020 documented as of this encounter (statuses as of 02/02/2023) [facility] [place]-06[facility]2019 History of Past illness Narrative* Problem Noted Date Resolved Date Closed fracture of left tibial plateau 9 12/25/2020 Obesity, Class II, BMI 35-39.9 06/28/2018 0 12/25/2020 Bilateral lower extremity edema 05/25/2016 12/25/2020 documented as of this encounter (statuses as of 03/01/2023) [facility] [place]2019 History of Past illness Narrative* Problem Noted Date Diagnosed Date Resolved Date Closed fracture of left tibial plateau 09/13/2019 12/25/2020 Obesity, Class II, BMI 35-39.9 06/28/2018 12/25/2020 Bilateral lower extremity edema 05/25/2016 12/25/2020 documented as of this encounter (statuses as of 06/23/2023) [facility] [place]2019 History of Past illness Narrative* Problem Noted Date Diagnosed Date Resolved Date Closed fracture of left tibial plateau 09/13/2019 12/25/2020 Obesity, Class II, BMI 35-39.9 06/28/2018 12/25/2020 Bilateral lower extremity edema 05/25/2016 12/25/2020 documented as of this encounter (statuses as of 02/01/2024) [facility] [place]2019 History of Past illness Narrative* Problem Noted Date Diagnosed Date Resolved Date Closed fracture of left tibial plateau 09/13/2019 12/25/2020 Obesity, Class II, BMI 35-39.9 06/28/2018 12/25/2020 Bilateral lower extremity edema 05/25/2016 12/25/2020 documented as of this encounter (statuses as of 02/02/2024) [facility] [place]2019 History of Past illness Narrative* Problem Noted Date Diagnosed Date Resolved Date Closed fracture of left tibial plateau 09/13/2019 12/25/2020 Obesity, Class II, BMI 35-39.9 06/28/2018 12/25/2020 Bilateral lower extremity edema 05/25/2016 12/25/2020 documented as of this encounter (statuses as of 02/09/2024) [facility] [place]2019 History of Past illness Narrative* Problem Noted Date Diagnosed Date Resolved Date Closed fracture of left tibial plateau 09/13/2019 12/25/2020 Obesity, Class II, BMI 35-39.9 06/28/2018 12/25/2020 Bilateral lower extremity edema 05/25/2016 12/25/2020 documented as of this encounter (statuses as of 02/14/2024) [facility] note* Diagnosis Essential hypertension- Primary Unspecified essential hypertension halfway current use of diuretic documented in this encounter [facility] note* Diagnosis Dyslipidemia Other and unspecified hyperlipidemia documented in this encounter [facility] note* Diagnosis Benign prostatic hyperplasia with lower urinary tract symptoms, symptom details unspecified- Primary Essential hypertension Unspecified essential hypertension Dyslipidemia Other and unspecified hyperlipidemia documented in this encounter [facility] note* Diagnosis Chronic midline thoracic back pain- Primary Dyslipidemia Other and unspecified hyperlipidemia Balance problem Other symptoms involving nervous and musculoskeletal systems documented in this encounter [facility] note* Diagnosis Fall, initial encounter- Primary Balance problem Other symptoms involving nervous and musculoskeletal systems Fatigue, unspecified type documented in this encounter [facility] note* Diagnosis NO SHOW- Primary documented in this encounter [facility] note* Diagnosis Parkinsonism, unspecified Parkinsonism type (HCC)- Primary documented in this encounter [facility] note* Diagnosis Essential hypertension Unspecified essential hypertension documented in this encounter [facility] note* Diagnosis Shuffling gait- Primary Abnormality of gait Gait instability Abnormality of gait documented in this encounter [facility] noteNo assessment information availableWSelect [facility] Work Phone: [facility] note* Diagnosis Benign prostatic hyperplasia with lower urinary tract symptoms, symptom details unspecified- Primary Urinary frequency documented in this encounter [facility] note* Diagnosis Parkinsonism, unspecified Parkinsonism type (HCC)- Primary HARJEET (obstructive sleep apnea) Obstructive sleep apnea (adult) (pediatric) documented in this encounter [facility] note* Diagnosis Parkinsonism, unspecified Parkinsonism type (HCC)- Primary documented in this encounter [facility] note* Diagnosis Hospital discharge follow-up- Primary Other follow-up examination Essential hypertension Unspecified essential hypertension Pneumonia due to influenza A virus Influenza with pneumonia Weakness Other malaise and fatigue Balance problem Other symptoms involving nervous and musculoskeletal systems documented in this encounter [facility] note* Diagnosis Parkinsonism, unspecified Parkinsonism type (HCC)- Primary documented in this encounter [facility] note* Diagnosis Encounter to establish care- Primary Other reasons for seeking consultation Essential hypertension Unspecified essential hypertension Dyslipidemia Other and unspecified hyperlipidemia Benign prostatic hyperplasia with lower urinary tract symptoms, symptom details unspecified Screening for HIV (human immunodeficiency virus) Special screening examination for other specified viral diseases Vitamin D deficiency Unspecified vitamin D deficiency Screening for prostate cancer Special screening for malignant neoplasm of prostate Depression, unspecified depression type Encounter for immunization Need for other specified prophylactic vaccination against single bacterial disease Venous insufficiency Unspecified venous (peripheral) insufficiency Localized swelling of left lower leg documented in this encounter [facility] note* Diagnosis Benign prostatic hyperplasia with lower urinary tract symptoms, symptom details unspecified documented in this encounter [facility] note* Diagnosis Atrial flutter, unspecified type (HCC)- Primary Traumatic subdural hematoma with loss of consciousness, sequela (HCC) documented in this encounter [facility] note* Diagnosis SDH (subdural hematoma) (HCC)- Primary Subdural hemorrhage documented in this encounter [facility] note* Diagnosis Atrial flutter, unspecified type (HCC)- Primary documented in this encounter [facility] note* Diagnosis Traumatic subdural hematoma with loss of consciousness, sequela (HCC)- Primary Intracranial meningioma (HCC) Benign neoplasm of cerebral meninges documented in this encounter [facility] note* Diagnosis Atrial flutter, unspecified type (HCC)- Primary Subdural hematoma (HCC) Subdural hemorrhage History of ischemic stroke documented in this encounter [facility] note* Diagnosis SDH (subdural hematoma) (HCC) Subdural hemorrhage documented in this encounter [facility] note* Diagnosis Benign prostatic hyperplasia with urinary retention- Primary Traumatic subdural hematoma with loss of consciousness, sequela (HCC)- Primary Intracranial meningioma (HCC) Benign neoplasm of cerebral meninges documented in this encounter [facility] note* Diagnosis Traumatic subdural hematoma with loss of consciousness, sequela (HCC) Intracranial meningioma (HCC) Benign neoplasm of cerebral meninges [facility] Hemiparesis affecting left side as late effect of cerebrovascular accident (HCC)- Primary Hemiplegia affecting unspecified side, late effect of cerebrovascular disease 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, 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) Subdural hematoma (HCC) Subdural hemorrhage SAH (subarachnoid hemorrhage) (HCC) Subarachnoid hemorrhage Atrial flutter, unspecified type (HCC) Essential hypertension Unspecified essential hypertension Dyslipidemia Other and unspecified hyperlipidemia [facility] Diagnosis Traumatic subdural hematoma with loss of consciousness, sequela (HCC)- Primary [facility] Diagnosis Traumatic subdural hematoma with loss of consciousness, sequela (HCC) Intracranial meningioma (HCC) Benign neoplasm of cerebral meninges [facility]* Diagnosis Benign prostatic hyperplasia with lower urinary tract symptoms, symptom details unspecified [facility] Diagnosis Hospital discharge follow-up- Primary Other follow-up examination Traumatic subdural hematoma with loss of consciousness, subsequent encounter Thyroid nodule Nontoxic uninodular goiter Screening for depression Encounter for screening examination for other mental health and behavioral disorders Obesity, Class II, BMI 35-39.9 Obesity, unspecified Essential hypertension Unspecified essential hypertension Benign prostatic hyperplasia with lower urinary tract symptoms, symptom details unspecified Dyslipidemia Other and unspecified hyperlipidemia Weakness Other malaise and fatigue Parkinson's disease without dyskinesia, unspecified whether manifestations fluctuate (HCC) Fungal rash of trunk Obesity, Class III, BMI 40-49.9 (morbid obesity) (HCC) Morbid obesity [facility] Diagnosis Silent micro-hemorrhage of brain (HCC) [facility]* Diagnosis Traumatic subdural hematoma with loss of consciousness, sequela (HCC)- Primary Intracranial meningioma (HCC) Benign neoplasm of cerebral meninges [facility] Diagnosis Spastic hemiparesis of left dominant side as late effect of cerebral infarction (HCC)- Primary 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, 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) Multiple subsegmental pulmonary emboli without acute cor pulmonale (HCC) Acute deep vein thrombosis (DVT) of proximal vein of lower extremity, unspecified laterality (HCC) Traumatic subdural hematoma with loss of consciousness, subsequent encounter Atrial flutter, unspecified type (HCC) Essential hypertension Unspecified essential hypertension Dyslipidemia Other and unspecified hyperlipidemia Intracranial meningioma (HCC)- Primary Benign neoplasm of cerebral meninges Benign neoplasm of meninges (HCC) Benign neoplasm of cerebral meninges documented in this encounter [facility]* Diagnosis Intracranial meningioma (HCC)- Primary Benign neoplasm of cerebral meninges Benign neoplasm of meninges (HCC) Benign neoplasm of cerebral meninges documented in this encounter [facility]* Diagnosis Traumatic subdural hematoma with loss of consciousness, sequela (HCC) Intracranial meningioma (HCC) Benign neoplasm of cerebral meninges [facility]* Diagnosis Depression, unspecified depression type- Primary documented in this encounter [facility]* Diagnosis Depression, unspecified depression type- Primary documented in this encounter [facility] note* Diagnosis Multiple subsegmental pulmonary emboli without acute cor pulmonale (HCC) Acute deep vein thrombosis (DVT) of proximal vein of lower extremity, unspecified laterality (HCC) documented in this encounter [facility] note* Diagnosis Intracranial meningioma (HCC) Benign neoplasm of cerebral meninges Benign neoplasm of meninges (HCC) Benign neoplasm of cerebral meninges [facility] this encounter [facility]* Diagnosis Soft tissue mass- Primary Disorders of soft tissue, unspecified Intracranial meningioma (HCC)- Primary Benign neoplasm of cerebral meninges Traumatic subdural hematoma with loss of consciousness, sequela (HCC) documented in this encounter [facility] note* Diagnosis Intracranial meningioma (HCC)- Primary Benign neoplasm of cerebral meninges Traumatic subdural hematoma with loss of consciousness, sequela (HCC) documented in this encounter [facility]* Diagnosis 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- Primary [facility]* Diagnosis Spastic hemiparesis of left dominant side as late effect of cerebral infarction (HCC)- Primary Silent micro-hemorrhage of brain (HCC) Atrial flutter, unspecified type (HCC) Essential hypertension Unspecified essential hypertension Dyslipidemia Other and unspecified hyperlipidemia documented in this encounter [facility] note* Diagnosis Atrial flutter, unspecified type (HCC)- Primary documented [facility] this encounter [facility]* Diagnosis 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 documented in this encounter [facility] for referral (narrative)* Diagnostic Procedure Only (Routine) - Pending Review Specialty Diagnoses / Procedures Referred By Contac t Referred To Contact US IMAGING Diagnoses Venous insufficiency Procedures US ANKLE BRACHIAL INDICES NON-INVAS PHYSIOLOGIC STD EXTREMITY ART 2 LEVEL Karthik Holliday APRN.CNP [address] [place] [address] Us [facility] [place] [address] Referral ID Status Reason Start Date Expiration Date Visits Requested Visits Authorized [id number] Pending Review Auto-Generat ed Referral 02/01/2024 03/02/2025 1 1 [facility] for referral (narrative)* Outpatient Procedure (Routine) - Authorized Specialty Diagnoses / Procedures Referred By Contac t Referred To Contact [facility] [place] Diagnoses Atrial flutter, unspecified type (HCC) Procedures ECG COMPLETE ECG ROUTINE ECG W/LEAST 12 LDS W/I&R Jed Wolf MD [address] [place] [address] [facility] [place] [address] Referral ID Status Reason Start Date Expiration Date Visits Requested Visits Authorized [id number] Authorized Auto-Generat ed Referral 05/04/2024 05/04/2025 1 1 [facility] for referral (narrative)* Outpatient Procedure (Routine) - Pending Review Specialty Diagnoses / Procedures Referred By Contac t Referred To Contact [facility] [place] Diagnoses Atrial flutter, unspecified type (HCC) Subdural hematoma (HCC) History of ischemic stroke Procedures ECG COMPLETE ECG ROUTINE ECG W/LEAST 12 LDS W/I&R Jed Wolf MD [address] [place] [id number] [facility] [place] [address] [place] [id number] Referral ID Status Reason Start Date Expiration Date Visits Requested Visits Authorized [id number] Pending Review Auto-Generat ed Referral 05/09/2024 05/09/2025 1 1 * Transition of Care (Routine) - Ref Not Required Specialty Diagnoses / Procedures Referred By Perri calero Referred To Contact [facility] [place] Procedures CARDIOVASCULAR MEDICINE OP FOLLOW UP APPT ORDER Jed Wolf MD [address] [place] [id number] [facility] [place] [address] Referral ID Status Reason Start Date Expiration Date Visits Requested Visits Authorized [id number] Ref Not Required PCP Requested Referral 06/09/2024 05/09/2025 1 1 [facility] for referral (narrative)* Diagnostic Procedure Only (Routine) - New Request Specialty Diagnoses / Procedures Referred By Perri calero Referred To Contact US IMAGING Diagnoses Thyroid nodule Procedures US THYROID/PARATHYROID US SOFT TISSUE HEAD & NECK REAL TIME IMGE Karthik Koroma APRN.CNP [address] [place] [address] Us Imaging [facility] Referral ID Status Reason Start Date Expiration Date Visits Requested Visits Authorized [id number] New Request Auto-Generat ed Referral 10/18/2025 1 1 [facility] for referral (narrative)No reason for referral information availableWSelect [facility] Work Phone: Reason for visit Narrative* Diagnostic Procedure Only (Routine) - Closed Specialty Diagnoses / Procedures Referred By Perri calero Referred To Contact RAD CT SCAN [employer] Diagnoses Traumatic subdural hemorrhage with loss of consciousness of unspecified duration, sequela Benign neoplasm of cerebral meninges CT BRAIN WO-GK Traumatic subdural hematoma with loss of consciousness, sequela (HCC) [S06.5X9S] Intracranial meningioma (HCC) [D32.0] Procedures CT HEAD/BRAIN W/O CONTRAST MATERIAL CT WWO [place] [address] Leonard Ko MD [address] [place] [address] Scan [place] [facility] [address] [facility] [place] [address] Referral ID Status Reason Start Date Expiration Date Visits Re quested Visits Authorized [id number] Closed 05/09/2024 07/08/2024 1 1 [facility] for visit Narrative* MRI/CT (Routine) - Closed Specialty Diagnoses / Procedures Referred By Perri calero Referred To Contact MR IMAGING Diagnoses Intracranial meningioma (HCC) Benign neoplasm of meninges (HCC) Procedures MRI BRAIN WO/W IVCON MRI BRAIN BRAIN STEM W/O W/CONTRAST MATERIAL Leonard Ko MD [address] [place] [address] Phone: tel: fax: MR IMAGING [place] [address] Referral ID Status Reason Start Date Expiration Date V isits Requested Visits Authorized [id number] Closed Auto-Generate d Referral 10/27/2024 11/26/2025 1 1 [facility] for visit Narrative* Outpatient Procedure (Routine) - Closed Specialty Diagnoses / Procedures Referred By Perri calero Referred To Contact [facility] Diagnoses 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 Procedures ECG COMPLETE ECG ROUTINE ECG W/LEAST 12 LDS W/I&R Candelario Schwartz MD [address] [place] [address] Phone: tel: fax: [facility] [address] [place] [address] Referral ID Status Reason Start Date Expiration Date V isits Requested Visits Authorized [id number] Closed Auto-Generate d Referral 01/20/2025 01/20/2026 1 1 [facility] [place] Summary Purpose Family History No Family History Records FoundNo Family History Records FoundNo Family History Records FoundNo Family History Records FoundNo Family History Records Found Advance Directives No Advanced Directives Records Found Date Activated Date Inactivated Comments 09/24/2024 7:06 AM 09/28/2024 8:10 PM Question Answer Comments Full Code Order Discussed With: Patient Date Activated Date Inactivated Comments 09/24/2024 4:14 AM 09/24/2024 7:06 AM Question Answer Comments Full Code Order Discussed With: Patient Date Activated Date Inactivated Comments 06/04/2024 11:14 PM 06/07/2024 6:47 PM Question Answer Comments Full Code Order Discussed With: Patient Date Activated Date Inactivated Comments 04/18/2024 2:37 PM 04/25/2024 5:42 PM Question Answer Comments Full Code Order Discussed With: Surrogate Decisi on Maker Surrogate Decision Maker Name: Winston Mejía Date Activated Date Inactivated Comments 10/30/2022 8:45 AM 11/01/2022 4:04 PM Question Answer Comments Full Code Order Discussed With: Patient Date Activated Date Inactivated Comments 06/04/2024 11:14 PM 06/07/2024 6:47 PM Date Activated Date Inactivated Comments 04/18/2024 2:37 PM 04/25/2024 5:42 PM Question Answer Comments Full Code Order Discussed With: Surrogate Decisi on Maker Surrogate Decision Maker Name: Winston Mejía Date Activated Date Inactivated Comments 10/30/2022 8:45 AM 11/01/2022 4:04 PM Date Activated Date Inactivated Comments 09/02/2022 4:59 PM 09/07/2022 1:21 AM Question Answer Comments Full Code Order Discussed With: Patient Date Activated Date Inactivated Comments 06/04/2024 11:14 PM Documents on File Type Date Recorded Patient Larder Cook Expl anation Advance Directive(s) 08/29/2021 9:55 PM Advance Directive(s) 08/26/2021 12:40 PM Advance Directive(s) 08/16/2021 3:59 AM Advance Directive(s) 08/15/2021 8:31 AM Advance Directive(s) 04/11/2021 10:16 AM Advance Directive(s) 03/14/2021 2:20 PM Advance Directive(s) 03/13/2021 7:18 PM Advance Directive(s) 10/22/2020 9:14 AM Advance Directive(s) 09/12/2020 8:49 PM Advance Directive(s) 07/02/2020 1:20 AM Advance Directive(s) 09/13/2019 11:43 AM Advance Directive(s) 07/12/2018 5:32 PM Documents on File Type Date Recorded Patient Larder Cook Expl anation Advance Directive(s) 08/29/2021 9:55 PM Advance Directive(s) 08/26/2021 12:40 PM Advance Directive(s) 08/16/2021 3:59 AM Advance Directive(s) 08/15/2021 8:31 AM Advance Directive(s) 04/11/2021 10:16 AM Advance Directive(s) 03/14/2021 2:20 PM Advance Directive(s) 03/13/2021 7:18 PM Advance Directive(s) 10/22/2020 9:14 AM Advance Directive(s) 09/12/2020 8:49 PM Advance Directive(s) 07/02/2020 1:20 AM Advance Directive(s) 09/13/2019 11:43 AM Advance Directive(s) 07/12/2018 5:32 PM Latest Code Status on File Code Status Date Activated Date Inactivated Comments Full Code 09/02/2022 4:59 PM Full Code Order Discussed With: Patient Latest Code Status on File Code Status Date Activated Date Inactivated Comments Full Code 09/02/2022 4:59 PM 09/07/2022 1:21 AM Latest Code Status on File Code Status Date Activated Date Inactivated Comments Full Code 09/02/2022 4:59 PM 09/07/2022 1:21 AM Latest Code Status on File Code Status Date Activated Date Inactivated Comments Full Code 10/30/2022 8:45 AM 11/01/2022 4:04 PM Full Code 09/02/2022 4:59 PM 09/07/2022 1:21 AM Latest Code Status on File Code Status Date Activated Date Inactivated Comments Full Code 10/30/2022 8:45 AM 11/01/2022 4:04 PM Full Code 09/02/2022 4:59 PM 09/07/2022 1:21 AM Latest Code Status on File Code Status Date Activated Date Inactivated Comments Full Code 10/30/2022 8:45 AM 11/01/2022 4:04 PM Question Answer Comments Full Code Order Discussed With: Patient Code Status History Code Status Date Activated Date Inactivated Comments Full Code 09/02/2022 4:59 PM 09/07/2022 1:21 AM Question Answer Comments Full Code Order Discussed With: Patient Date Activated Date Inactivated Comments 10/30/2022 8:45 AM 11/01/2022 4:04 PM Question Answer Comments Full Code Order Discussed With: Patient Date Activated Date Inactivated Comments 09/02/2022 4:59 PM 09/07/2022 1:21 AM Question Answer Comments Full Code Order Discussed With: Patient Date Activated Date Inactivated Comments 10/30/2022 8:45 AM 11/01/2022 4:04 PM Date Activated Date Inactivated Comments 09/02/2022 4:59 PM 09/07/2022 1:21 AM Date Activated Date Inactivated Comments 04/18/2024 2:37 PM 04/25/2024 5:42 PM Question Answer Comments Full Code Order Discussed With: Surrogate Decisi on Maker Surrogate Decision Maker Name: Winston Mejía Date Activated Date Inactivated Comments 10/30/2022 8:45 AM 11/01/2022 4:04 PM Date Activated Date Inactivated Comments 09/02/2022 4:59 PM 09/07/2022 1:21 AM Date Activated Date Inactivated Comments 04/18/2024 2:37 PM 04/25/2024 5:42 PM Question Answer Comments Full Code Order Discussed With: Surrogate Decisi on Maker Surrogate Decision Maker Name: Winston Mejía Date Activated Date Inactivated Comments 10/30/2022 8:45 AM 11/01/2022 4:04 PM Date Activated Date Inactivated Comments 09/02/2022 4:59 PM 09/07/2022 1:21 AM Question Answer Comments Full Code Order Discussed With: Patient Date Activated Date Inactivated Comments 06/04/2024 11:14 PM 06/07/2024 6:47 PM Date Activated Date Inactivated Comments 04/18/2024 2:37 PM 04/25/2024 5:42 PM Question Answer Comments Full Code Order Discussed With: Surrogate Decisi on Maker Surrogate Decision Maker Name: Winston Mejía Date Activated Date Inactivated Comments 10/30/2022 8:45 AM 11/01/2022 4:04 PM Date Activated Date Inactivated Comments 09/02/2022 4:59 PM 09/07/2022 1:21 AM Question Answer Comments Full Code Order Discussed With: Patient Date Activated Date Inactivated Comments 09/24/2024 7:06 AM 09/28/2024 8:10 PM Date Activated Date Inactivated Comments 09/24/2024 4:14 AM 09/24/2024 7:06 AM Date Activated Date Inactivated Comments 06/04/2024 11:14 PM 06/07/2024 6:47 PM Date Activated Date Inactivated Comments 04/18/2024 2:37 PM 04/25/2024 5:42 PM Question Answer Comments Full Code Order Discussed With: Surrogate Decisi on Maker Surrogate Decision Maker Name: Winston Mejía Date Activated Date Inactivated Comments 10/30/2022 8:45 AM 11/01/2022 4:04 PM Question Answer Comments Full Code Order Discussed With: Patient Reason for Referral Specialty Diagnoses / Procedures Referred By Contac t Referred To Contact Diagnoses Chronic midline thoracic back pain Balance problem Procedures CONSULT TO PHYSICAL THERAPY (AG) Rosalinda Olivas APRN.[facility] [address] [address] Referral ID Status Reason Start Date Expiration Date Visits Requested Visits Authorized [id number] Ref Not Required PCP Requested Referral 05/08/2022 08/06/2022 1 1 Specialty Diagnoses / Procedures Referred By Contac t Referred To Contact Neurology Diagnoses Parkinsonism, unspecified Parkinsonism type (HCC) Procedures CONSULT TO NEUROLOGY OFFICE/OUTPATIENT [facility] 60-74 MINUTES Clint Euceda Jr., MD [address] [address] Referral ID Status Reason Start Date Expiration Date Visits Requested Visits Authorized [id number] Authorized PCP Requested Referral 2 09/20/2023 1 1 Specialty Diagnoses / Procedures Referred By Contac t Referred To Contact Diagnoses Shuffling gait Gait instability Procedures PROVIDER ORDERED FOLLOW UP OFFICE/OUTPATIENT [facility] 60-74 MINUTES Josse De Oliveira MD [address] [place] [address] Referral ID Status Reason Start Date Expiration Date Visits Requested Visits Authorized [id number] Authorized PCP Requested Referral 2 10/07/2023 1 1 Specialty Diagnoses / Procedures Referred By Contac t Referred To Contact Diagnoses Parkinsonism, unspecified Parkinsonism type (HCC) HARJEET (obstructive sleep apnea) Procedures CONSULT TO SLEEP MEDICINE - ADULT OFFICE/OUTPATIENT [facility] 60-74 MINUTES Josse De Oliveira MD [address] [place] [address] Referral ID Status Reason Start Date Expiration Date Visits Requested Visits Authorized [id number] Authorized PCP Requested Referral 2 10/29/2023 1 1 Specialty Diagnoses / Procedures Referred By Contac t Referred To Contact MR IMAGING Diagnoses Parkinsonism, unspecified Parkinsonism type (HCC) Procedures MRI BRAIN WO IVCON MRI BRAIN BRAIN STEM W/O CONTRAST MATERIAL Josse De Oliveira MD [address] [place] [address] Mr Imaging Referral ID Status Reason Start Date Expiration Date Visits Requested Visits Authorized [id number] Pending Review Auto-Generat ed Referral 2 11/28/2023 1 1 Specialty Diagnoses / Procedures Referred By Contac t Referred To Contact Diagnoses Hospital discharge follow-up Weakness Balance problem Procedures CONSULT TO PHYSICAL THERAPY (AG) Rosalinda Olivas, CONSTRUCTION ESTIMATOR.RESIDENTIAL REAL ESTATE ASSISTANT [address] [facility] [address] [place] [address] Referral ID Status Reason Start Date Expiration Date Visits Requested Visits Authorized [id number] Ref Not Required PCP Requested Referral 11/12/2022 02/10/2023 1 1 Specialty Diagnoses / Procedures Referred By Contac t Referred To Contact Diagnoses Parkinsonism, unspecified Parkinsonism type (HCC) Procedures PROVIDER ORDERED FOLLOW UP OFFICE/OUTPATIENT [facility] 60-74 MINUTES Patricia Hsu PA-C [address] [place] [address] Referral ID Status Reason Start Date Expiration Date Visits Requested Visits Authorized [id number] Authorized PCP Requested Referral 04/20/2023 01/18/2024 1 1 Specialty Diagnoses / Procedures Referred By Contac t Referred To Contact Diagnoses Atrial flutter, unspecified type (HCC) Traumatic subdural hematoma with loss of consciousness, sequela (HCC) Procedures CONSULT TO ELECTROPHYSIOLOGY OFFICE/OUTPATIENT [facility] 60 MINUTES Anya Huang, CONSTRUCTION ESTIMATOR.RESIDENTIAL REAL ESTATE ASSISTANT [address] [facility] [address] Referral ID Status Reason Start Date Expiration Date Visits Requested Visits Authorized [id number] Authorized PCP Requested Referral 05/03/2024 05/03/2025 1 1 Specialty Diagnoses / Procedures Referred By Contac t Referred To Contact CT IMAGING Diagnoses SDH (subdural hematoma) (HCC) Procedures CT BRAIN WO IVCON CT HEAD/BRAIN W/O CONTRAST MATERIAL Scott Minor, CONSTRUCTION ESTIMATOR.RESIDENTIAL REAL ESTATE ASSISTANT [address] [place] [address] [place] [address] Referral ID Status Reason Start Date Expiration Date Visits Requested Visits Authorized [id number] Pending Review Auto-Generat ed Referral 04/23/2024 05/23/2025 1 1 Specialty Diagnoses / Procedures Referred By Contac t Referred To Contact CT IMAGING Diagnoses Traumatic subdural hematoma with loss of consciousness, sequela (HCC) Intracranial meningioma (HCC) Procedures CT BRAIN WO IVCON CT HEAD/BRAIN W/O CONTRAST MATERIAL Agata Del Toro, CONSTRUCTION ESTIMATOR.RESIDENTIAL REAL ESTATE ASSISTANT [address] [place] [address] [place] [address] Referral ID Status Reason Start Date Expiration Date Visits Requested Visits Authorized [id number] Pending Review Auto-Generat ed Referral 05/09/2024 06/08/2025 1 1 Referral ID Status Reason Start Date Expiration Date Visits Requested Visits Authorized [id number] Authorized Auto-Generat ed Referral 06/20/2024 09/20/2024 1 1 Specialty Diagnoses / Procedures Referred By Contac t Referred To Contact MR IMAGING Diagnoses Silent micro-hemorrhage of brain (HCC) Procedures MRI BRAIN WO IVCON MRI BRAIN BRAIN STEM W/O CONTRAST MATERIAL Anya Huang, CONSTRUCTION ESTIMATOR.RESIDENTIAL REAL ESTATE ASSISTANT [address] [address] [place] [address] Referral ID Status Reason Start Date Expiration Date Visits Requested Visits Authorized [id number] New Request Auto-Generat ed Referral 06/12/2024 07/12/2025 1 1 Referral ID Status Reason Start Date Expiration Date Visits Requested Visits Authorized [id number] Pending Review Auto-Generat ed Referral 10/13/2024 11/12/2025 1 1 Specialty Diagnoses / Procedures Referred By Contac t Referred To Contact Diagnoses Multiple subsegmental pulmonary emboli without acute cor pulmonale (HCC) Acute deep vein thrombosis (DVT) of proximal vein of lower extremity, unspecified laterality (HCC) Procedures CONSULT TO HEMATOLOGY/ONCOLOGY OFFICE/OUTPATIENT [facility] 60 MINUTES Anya Huang, CONSTRUCTION ESTIMATOR.RESIDENTIAL REAL ESTATE ASSISTANT [address] [place] [address] Referral ID Status Reason Start Date Expiration Date Visits Requested Visits Authorized [id number] Authorized PCP Requested Referral 4 10/26/2025 1 1 Specialty Diagnoses / Procedures Referred By Contac t Referred To Contact MR IMAGING Diagnoses Intracranial meningioma (HCC) Benign neoplasm of meninges (HCC) Procedures MRI BRAIN WO/W IVCON MRI BRAIN BRAIN STEM W/O W/CONTRAST MATERIAL Leonard Ko MD [address] [place] [address] [place] [address] Referral ID Status Reason Start Date Expiration Date Visits Requested Visits Authorized [id number] Authorized Auto-Generat ed Referral 4 11/26/2025 1 1 Specialty Diagnoses / Procedures Referred By Contac t Referred To Contact Diagnoses Depression, unspecified depression type Karthik Holliday, CONSTRUCTION ESTIMATOR.RESIDENTIAL REAL ESTATE ASSISTANT [address] [place] [address] Referral ID Status Reason Start Date Expiration Date V isits Requested Visits Authorized [id number] Pending Review 1 1 Specialty Diagnoses / Procedures Referred By Contac t Referred To Contact [facility]LECULAR [facility] FUNCTIONAL IMAGING Diagnoses Multiple subsegmental pulmonary emboli without acute cor pulmonale (HCC) Acute deep vein thrombosis (DVT) of proximal vein of lower extremity, unspecified laterality (HCC) Procedures FACTOR V LEIDEN/PCR F5 COAGULATION FACTOR V ANAL LEIDEN VARIANT Faith Moore, CONSTRUCTION ESTIMATOR.RESIDENTIAL REAL ESTATE ASSISTANT [address] [place] [address] [facility] Functional [facility] [address] [place] [address] Referral ID Status Reason Start Date Expiration Date V isits Requested Visits Authorized [id number] Denied PCP Requested Referral Auto-Generated Referral 12/12/2024 03/12/2025 1 0 Chief Complaint and Reason for Visit Chief Complaint HALF-WAY LABWORK HALF-WAY LAB WORK Chief Complaint HALF-WAY LAB WOR K HALF-WAY LABWORK HALF-WAY LAB WORK Chief Complaint Admit Date HALF-WAY LAB WORK November 06 5:00am HALF-WAY LAB WORK January 08, 2025 4: 00am Chief Complaint Admit Date HALF-WAY LAB WORK November 06 5:00am HALF-WAY LAB WORK January 08, 2025 4: 00am LABWORK February 05, 2025 5:0 0am Chief Complaint Admit Date HALF-WAY LAB WORK January 08, 2025 4: 00am LABWORK February 05, 2025 5:0 0am HALF-WAY LAB WORK March 20, 2025 5:0 0am Health Concerns Infection Onset Date Last Indicated Resolved Time Influenza 10/24/2022 10/24/2022 Infection Onset Date Last Indicated Resolved Time COVID-19 Rule-Out 10/24/2022 10/24/2022 10/24/2022 4:37 PM EST Influenza 10/24/2022 10/24/2022 11/03/2022 8:51 PM EST COVID-19 Rule-Out 10/30/2022 10/30/2022 10/30/2022 3:14 AM EST Additional Source Comments (unrecognized sect ion and content) No Status Records FoundNo Status Records FoundNo Status Records FoundNo Status Records FoundNo Status Records Found INFORMATION SOURCE (unrecogn ized section and content) DATE CREATED AUTHOR 08/30/2021 [facility] DATE CREATED AUTHOR AUTHOR'S ORGANIZ ATION 10/07/2022 [facility] DATE CREATED AUTHOR AUTHOR'S ORGANIZ ATION 05/06/2025 [facility] DATE CREATED AUTHOR AUTHOR'S ORGANIZ ATION 05/10/2025 [facility] DATE CREATED AUTHOR AUTHOR'S ORGANIZ ATION 05/18/2025 [facility] Source Comments (unrecognize d section and content) In the event this informatio n is protected by the Federal Confidentiality of Alcohol and Drug Abuse Patient Records regulations: The Federal rules restrict any use of the information to criminally investigate or prosecute any alcohol or drug abuse patient.[facility] [place] the event this information is protected by the Federal Confidentiality of Alcohol and Drug Abuse Patient Records regulations: The Federal rules restrict any use of the information to criminally investigate or prosecute any alcohol or drug abuse patient.[facility] [place] the event this information is protected by the Federal Confidentiality of Alcohol and Drug Abuse Patient Records regulations: The Federal rules restrict any use of the information to criminally investigate or prosecute any alcohol or drug abuse patient.[facility] [place] the event this information is protected by the Federal Confidentiality of Alcohol and Drug Abuse Patient Records regulations: The Federal rules restrict any use of the information to criminally investigate or prosecute any alcohol or drug abuse patient.[facility] [place] the event this information is protected by the Federal Confidentiality of Alcohol and Drug Abuse Patient Records regulations: The Federal rules restrict any use of the information to criminally investigate or prosecute any alcohol or drug abuse patient.[facility] [place] the event this information is protected by the Federal Confidentiality of Alcohol and Drug Abuse Patient Records regulations: The Federal rules restrict any use of the information to criminally investigate or prosecute any alcohol or drug abuse patient.[facility] [place] the event this information is protected by the Federal Confidentiality of Alcohol and Drug Abuse Patient Records regulations: The Federal rules restrict any use of the information to criminally investigate or prosecute any alcohol or drug abuse patient.[facility] [place] the event this information is protected by the Federal Confidentiality of Alcohol and Drug Abuse Patient Records regulations: The Federal rules restrict any use of the information to criminally investigate or prosecute any alcohol or drug abuse patient.[facility] [place] the event this information is protected by the Federal Confidentiality of Alcohol and Drug Abuse Patient Records regulations: The Federal rules restrict any use of the information to criminally investigate or prosecute any alcohol or drug abuse patient.[facility] [place] the event this information is protected by the Federal Confidentiality of Alcohol and Drug Abuse Patient Records regulations: The Federal rules restrict any use of the information to criminally investigate or prosecute any alcohol or drug abuse patient.[facility] [place] the event this information is protected by the Federal Confidentiality of Alcohol and Drug Abuse Patient Records regulations: The Federal rules restrict any use of the information to criminally investigate or prosecute any alcohol or drug abuse patient.[facility] [place] the event this information is protected by the Federal Confidentiality of Alcohol and Drug Abuse Patient Records regulations: The Federal rules restrict any use of the information to criminally investigate or prosecute any alcohol or drug abuse patient.[facility] [place] the event this information is protected by the Federal Confidentiality of Alcohol and Drug Abuse Patient Records regulations: The Federal rules restrict any use of the information to criminally investigate or prosecute any alcohol or drug abuse patient.[facility] [place]In the event this information is protected by the Federal Confidentiality of Alcohol and Drug Abuse Patient Records regulations: The Federal rules restrict any use of the information to criminally investigate or prosecute any alcohol or drug abuse patient.[facility] [place]In the event this information is protected by the Federal Confidentiality of Alcohol and Drug Abuse Patient Records regulations: The Federal rules restrict any use of the information to criminally investigate or prosecute any alcohol or drug abuse patient.[facility] [place]In the event this information is protected by the Federal Confidentiality of Alcohol and Drug Abuse Patient Records regulations: The Federal rules restrict any use of the information to criminally investigate or prosecute any alcohol or drug abuse patient.[facility] [place]In the event this information is protected by the Federal Confidentiality of Alcohol and Drug Abuse Patient Records regulations: The Federal rules restrict any use of the information to criminally investigate or prosecute any alcohol or drug abuse patient.[facility] [place]In the event this information is protected by the Federal Confidentiality of Alcohol and Drug Abuse Patient Records regulations: The Federal rules restrict any use of the information to criminally investigate or prosecute any alcohol or drug abuse patient.[facility] [place]In the event this information is protected by the Federal Confidentiality of Alcohol and Drug Abuse Patient Records regulations: The Federal rules restrict any use of the information to criminally investigate or prosecute any alcohol or drug abuse patient.[facility] [place]In the event this information is protected by the Federal Confidentiality of Alcohol and Drug Abuse Patient Records regulations: The Federal rules restrict any use of the information to criminally investigate or prosecute any alcohol or drug abuse patient.[facility] [place]In the event this information is protected by the Federal Confidentiality of Alcohol and Drug Abuse Patient Records regulations: The Federal rules restrict any use of the information to criminally investigate or prosecute any alcohol or drug abuse patient.[facility] [place]In the event this information is protected by the Federal Confidentiality of Alcohol and Drug Abuse Patient Records regulations: The Federal rules restrict any use of the information to criminally investigate or prosecute any alcohol or drug abuse patient.[facility] [place]In the event this information is protected by the Federal Confidentiality of Alcohol and Drug Abuse Patient Records regulations: The Federal rules restrict any use of the information to criminally investigate or prosecute any alcohol or drug abuse patient.[facility] [place]In the event this information is protected by the Federal Confidentiality of Alcohol and Drug Abuse Patient Records regulations: The Federal rules restrict any use of the information to criminally investigate or prosecute any alcohol or drug abuse patient.[facility] [place]In the event this information is protected by the Federal Confidentiality of Alcohol and Drug Abuse Patient Records regulations: The Federal rules restrict any use of the information to criminally investigate or prosecute any alcohol or drug abuse patient.[facility] [place]In the event this information is protected by the Federal Confidentiality of Alcohol and Drug Abuse Patient Records regulations: The Federal rules restrict any use of the information to criminally investigate or prosecute any alcohol or drug abuse patient.[facility] [place]In the event this information is protected by the Federal Confidentiality of Alcohol and Drug Abuse Patient Records regulations: The Federal rules restrict any use of the information to criminally investigate or prosecute any alcohol or drug abuse patient.[facility] OhioIn the event this information is protected by the Federal Confidentiality of Alcohol and Drug Abuse Patient Records regulations: The Federal rules restrict any use of the information to criminally investigate or prosecute any alcohol or drug abuse patient.[facility] [place]In the event this information is protected by the Federal Confidentiality of Alcohol and Drug Abuse Patient Records regulations: The Federal rules restrict any use of the information to criminally investigate or prosecute any alcohol or drug abuse patient.[facility] [place]In the event this information is protected by the Federal Confidentiality of Alcohol and Drug Abuse Patient Records regulations: The Federal rules restrict any use of the information to criminally investigate or prosecute any alcohol or drug abuse patient.[facility] [place]In the event this information is protected by the Federal Confidentiality of Alcohol and Drug Abuse Patient Records regulations: The Federal rules restrict any use of the information to criminally investigate or prosecute any alcohol or drug abuse patient.[facility] [place]In the event this information is protected by the Federal Confidentiality of Alcohol and Drug Abuse Patient Records regulations: The Federal rules restrict any use of the information to criminally investigate or prosecute any alcohol or drug abuse patient.[facility] [place]In the event this information is protected by the Federal Confidentiality of Alcohol and Drug Abuse Patient Records regulations: The Federal rules restrict any use of the information to criminally investigate or prosecute any alcohol or drug abuse patient.[facility] [place]In the event this information is protected by the Federal Confidentiality of Alcohol and Drug Abuse Patient Records regulations: The Federal rules restrict any use of the information to criminally investigate or prosecute any alcohol or drug abuse patient.[facility] [place]In the event this information is protected by the Federal Confidentiality of Alcohol and Drug Abuse Patient Records regulations: The Federal rules restrict any use of the information to criminally investigate or prosecute any alcohol or drug abuse patient.[facility] [place]In the event this information is protected by the Federal Confidentiality of Alcohol and Drug Abuse Patient Records regulations: The Federal rules restrict any use of the information to criminally investigate or prosecute any alcohol or drug abuse patient.[facility] [place]In the event this information is protected by the Federal Confidentiality of Alcohol and Drug Abuse Patient Records regulations: The Federal rules restrict any use of the information to criminally investigate or prosecute any alcohol or drug abuse patient.[facility] [place]In the event this information is protected by the Federal Confidentiality of Alcohol and Drug Abuse Patient Records regulations: The Federal rules restrict any use of the information to criminally investigate or prosecute any alcohol or drug abuse patient.[facility] [place]In the event this information is protected by the Federal Confidentiality of Alcohol and Drug Abuse Patient Records regulations: The Federal rules restrict any use of the information to criminally investigate or prosecute any alcohol or drug abuse patient.[facility] [place]In the event this information is protected by the Federal Confidentiality of Alcohol and Drug Abuse Patient Records regulations: The Federal rules restrict any use of the information to criminally investigate or prosecute any alcohol or drug abuse patient.[facility] [place]In the event this information is protected by the Federal Confidentiality of Alcohol and Drug Abuse Patient Records regulations: The Federal rules restrict any use of the information to criminally investigate or prosecute any alcohol or drug abuse patient.[facility] [place]In the event this information is protected by the Federal Confidentiality of Alcohol and Drug Abuse Patient Records regulations: The Federal rules restrict any use of the information to criminally investigate or prosecute any alcohol or drug abuse patient.[facility] [place]In the event this information is protected by the Federal Confidentiality of Alcohol and Drug Abuse Patient Records regulations: The Federal rules restrict any use of the information to criminally investigate or prosecute any alcohol or drug abuse patient.[facility] [place]In the event this information is protected by the Federal Confidentiality of Alcohol and Drug Abuse Patient Records regulations: The Federal rules restrict any use of the information to criminally investigate or prosecute any alcohol or drug abuse patient.[facility] [place]In the event this information is protected by the Federal Confidentiality of Alcohol and Drug Abuse Patient Records regulations: The Federal rules restrict any use of the information to criminally investigate or prosecute any alcohol or drug abuse patient.[facility] [place]In the event this information is protected by the Federal Confidentiality of Alcohol and Drug Abuse Patient Records regulations: The Federal rules restrict any use of the information to criminally investigate or prosecute any alcohol or drug abuse patient.[facility] [place]In the event this information is protected by the Federal Confidentiality of Alcohol and Drug Abuse Patient Records regulations: The Federal rules restrict any use of the information to criminally investigate or prosecute any alcohol or drug abuse patient.[facility] [place]In the event this information is protected by the Federal Confidentiality of Alcohol and Drug Abuse Patient Records regulations: The Federal rules restrict any use of the information to criminally investigate or prosecute any alcohol or drug abuse patient.[facility] [place]In the event this information is protected by the Federal Confidentiality of Alcohol and Drug Abuse Patient Records regulations: The Federal rules restrict any use of the information to criminally investigate or prosecute any alcohol or drug abuse patient.[facility] [place]In the event this information is protected by the Federal Confidentiality of Alcohol and Drug Abuse Patient Records regulations: The Federal rules restrict any use of the information to criminally investigate or prosecute any alcohol or drug abuse patient.[facility] [place]In the event this information is protected by the Federal Confidentiality of Alcohol and Drug Abuse Patient Records regulations: The Federal rules restrict any use of the information to criminally investigate or prosecute any alcohol or drug abuse patient.[facility] [place]In the event this information is protected by the Federal Confidentiality of Alcohol and Drug Abuse Patient Records regulations: The Federal rules restrict any use of the information to criminally investigate or prosecute any alcohol or drug abuse patient.[facility] [place]In the event this information is protected by the Federal Confidentiality of Alcohol and Drug Abuse Patient Records regulations: The Federal rules restrict any use of the information to criminally investigate or prosecute any alcohol or drug abuse patient.[facility] [place]In the event this information is protected by the Federal Confidentiality of Alcohol and Drug Abuse Patient Records regulations: The Federal rules restrict any use of the information to criminally investigate or prosecute any alcohol or drug abuse patient.[facility] [place]In the event this information is protected by the Federal Confidentiality of Alcohol and Drug Abuse Patient Records regulations: The Federal rules restrict any use of the information to criminally investigate or prosecute any alcohol or drug abuse patient.[facility] [place]In the event this information is protected by the Federal Confidentiality of Alcohol and Drug Abuse Patient Records regulations: The Federal rules restrict any use of the information to criminally investigate or prosecute any alcohol or drug abuse patient.[facility] [place]In the event this information is protected by the Federal Confidentiality of Alcohol and Drug Abuse Patient Records regulations: The Federal rules restrict any use of the information to criminally investigate or prosecute any alcohol or drug abuse patient.[facility] [place]In the event this information is protected by the Federal Confidentiality of Alcohol and Drug Abuse Patient Records regulations: The Federal rules restrict any use of the information to criminally investigate or prosecute any alcohol or drug abuse patient.[facility] [place]In the event this information is protected by the Federal Confidentiality of Alcohol and Drug Abuse Patient Records regulations: The Federal rules restrict any use of the information to criminally investigate or prosecute any alcohol or drug abuse patient.[facility] [place]In the event this information is protected by the Federal Confidentiality of Alcohol and Drug Abuse Patient Records regulations: The Federal rules restrict any use of the information to criminally investigate or prosecute any alcohol or drug abuse patient.[facility] [place]In the event this information is protected by the Federal Confidentiality of Alcohol and Drug Abuse Patient Records regulations: The Federal rules restrict any use of the information to criminally investigate or prosecute any alcohol or drug abuse patient.[facility] [place]In the event this information is protected by the Federal Confidentiality of Alcohol and Drug Abuse Patient Records regulations: The Federal rules restrict any use of the information to criminally investigate or prosecute any alcohol or drug abuse patient.[facility] [place]In the event this information is protected by the Federal Confidentiality of Alcohol and Drug Abuse Patient Records regulations: The Federal rules restrict any use of the information to criminally investigate or prosecute any alcohol or drug abuse patient.[facility] [place]In the event this information is protected by the Federal Confidentiality of Alcohol and Drug Abuse Patient Records regulations: The Federal rules restrict any use of the information to criminally investigate or prosecute any alcohol or drug abuse patient.[facility] [place]In the event this information is protected by the Federal Confidentiality of Alcohol and Drug Abuse Patient Records regulations: The Federal rules restrict any use of the information to criminally investigate or prosecute any alcohol or drug abuse patient.[facility] [place]In the event this information is protected by the Federal Confidentiality of Alcohol and Drug Abuse Patient Records regulations: The Federal rules restrict any use of the information to criminally investigate or prosecute any alcohol or drug abuse patient.[facility] [place]In the event this information is protected by the Federal Confidentiality of Alcohol and Drug Abuse Patient Records regulations: The Federal rules restrict any use of the information to criminally investigate or prosecute any alcohol or drug abuse patient.[facility] [place]In the event this information is protected by the Federal Confidentiality of Alcohol and Drug Abuse Patient Records regulations: The Federal rules restrict any use of the information to criminally investigate or prosecute any alcohol or drug abuse patient.[facility] [place]In the event this information is protected by the Federal Confidentiality of Alcohol and Drug Abuse Patient Records regulations: The Federal rules restrict any use of the information to criminally investigate or prosecute any alcohol or drug abuse patient.[facility] [place]In the event this information is protected by the Federal Confidentiality of Alcohol and Drug Abuse Patient Records regulations: The Federal rules restrict any use of the information to criminally investigate or prosecute any alcohol or drug abuse patient.[facility] [place]In the event this information is protected by the Federal Confidentiality of Alcohol and Drug Abuse Patient Records regulations: The Federal rules restrict any use of the information to criminally investigate or prosecute any alcohol or drug abuse patient.[facility] [place]In the event this information is protected by the Federal Confidentiality of Alcohol and Drug Abuse Patient Records regulations: The Federal rules restrict any use of the information to criminally investigate or prosecute any alcohol or drug abuse patient.[facility] [place]In the event this information is protected by the Federal Confidentiality of Alcohol and Drug Abuse Patient Records regulations: The Federal rules restrict any use of the information to criminally investigate or prosecute any alcohol or drug abuse patient.[facility] [place]In the event this information is protected by the Federal Confidentiality of Alcohol and Drug Abuse Patient Records regulations: The Federal rules restrict any use of the information to criminally investigate or prosecute any alcohol or drug abuse patient.[facility] [place]In the event this information is protected by the Federal Confidentiality of Alcohol and Drug Abuse Patient Records regulations: The Federal rules restrict any use of the information to criminally investigate or prosecute any alcohol or drug abuse patient.[facility] [place]In the event this information is protected by the Federal Confidentiality of Alcohol and Drug Abuse Patient Records regulations: The Federal rules restrict any use of the information to criminally investigate or prosecute any alcohol or drug abuse patient.[facility] [place]In the event this information is protected by the Federal Confidentiality of Alcohol and Drug Abuse Patient Records regulations: The Federal rules restrict any use of the information to criminally investigate or prosecute any alcohol or drug abuse patient.[facility] [place]In the event this information is protected by the Federal Confidentiality of Alcohol and Drug Abuse Patient Records regulations: The Federal rules restrict any use of the information to criminally investigate or prosecute any alcohol or drug abuse patient.[facility] [place]In the event this information is protected by the Federal Confidentiality of Alcohol and Drug Abuse Patient Records regulations: The Federal rules restrict any use of the information to criminally investigate or prosecute any alcohol or drug abuse patient.[facility] [place]In the event this information is protected by the Federal Confidentiality of Alcohol and Drug Abuse Patient Records regulations: The Federal rules restrict any use of the information to criminally investigate or prosecute any alcohol or drug abuse patient.[facility] [place]In the event this information is protected by the Federal Confidentiality of Alcohol and Drug Abuse Patient Records regulations: The Federal rules restrict any use of the information to criminally investigate or prosecute any alcohol or drug abuse patient.[facility] [place]In the event this information is protected by the Federal Confidentiality of Alcohol and Drug Abuse Patient Records regulations: The Federal rules restrict any use of the information to criminally investigate or prosecute any alcohol or drug abuse patient.[facility] [place]In the event this information is protected by the Federal Confidentiality of Alcohol and Drug Abuse Patient Records regulations: The Federal rules restrict any use of the information to criminally investigate or prosecute any alcohol or drug abuse patient.[facility] [place]In the event this information is protected by the Federal Confidentiality of Alcohol and Drug Abuse Patient Records regulations: The Federal rules restrict any use of the information to criminally investigate or prosecute any alcohol or drug abuse patient.[facility] [place]In the event this information is protected by the Federal Confidentiality of Alcohol and Drug Abuse Patient Records regulations: The Federal rules restrict any use of the information to criminally investigate or prosecute any alcohol or drug abuse patient.[facility] [place]In the event this information is protected by the Federal Confidentiality of Alcohol and Drug Abuse Patient Records regulations: The Federal rules restrict any use of the information to criminally investigate or prosecute any alcohol or drug abuse patient.[facility] [place]In the event this information is protected by the Federal Confidentiality of Alcohol and Drug Abuse Patient Records regulations: The Federal rules restrict any use of the information to criminally investigate or prosecute any alcohol or drug abuse patient.[facility] [place]In the event this information is protected by the Federal Confidentiality of Alcohol and Drug Abuse Patient Records regulations: The Federal rules restrict any use of the information to criminally investigate or prosecute any alcohol or drug abuse patient.[facility] [place]In the event this information is protected by the Federal Confidentiality of Alcohol and Drug Abuse Patient Records regulations: The Federal rules restrict any use of the information to criminally investigate or prosecute any alcohol or drug abuse patient.[facility] [place]In the event this information is protected by the Federal Confidentiality of Alcohol and Drug Abuse Patient Records regulations: The Federal rules restrict any use of the information to criminally investigate or prosecute any alcohol or drug abuse patient.[facility] [place] Care Teams (unrecognized sec tion and content) Plastering Supervisor Relationship Specialty Start Date End Date Ángel Crawford MD [address] [place] [address] [id number] PCP - General Family Practice 01/19/22 Paul Lorenz MD [address] [place], [place] [id number] PCP Resident Family Practice 01/19/22 Plastering Supervisor Relationship Specialty Start Date End Date Clint Euceda Jr., MD [address] [facility] [address] [facility] [address] [place] [address] PCP - General Family Practice 03/09/22 Paul Lorenz MD [address] [place], [place] [id number] PCP Resident Family Practice 01/19/22 Plastering Supervisor Relationship Specialty Start Date End Date Clint Euceda Jr., MD [address] [facility] [address] [place] [address] [place] [address] PCP - General Family Practice 03/09/22 Paul Lorenz MD [address] [place] [address] PCP Resident Family Practice 01/19/22 Plastering Supervisor Relationship Specialty Start Date End Date Clint Euceda Jr., MD [address] [facility] [address] [facility] [address] [place] [address] PCP - General Family Practice 03/09/22 Paul Lorenz MD 1 [place] [address] PCP Resident Family Practice 01/19/22 Plastering Supervisor Relationship Specialty Start Date End Date Clint Euceda Jr., MD [address] [facility] [address] [place] [address] [place] [address] PCP - General Family Medicine 03/09/22 Plastering Supervisor Relationship Specialty Start Date End Date Clint Euceda Jr., MD [address] [address] PCP - General Family Medicine 03/09/22 Plastering Supervisor Relationship Specialty Start Date End Date Clint Euceda Jr., MD [address] [facility] [address] [address] PCP - General Family Medicine 03/09/22 Moo Dumont RN Primary Care Local Truck Driver 09/09/22 Plastering Supervisor Relationship Specialty Start Date End Date Clint Euceda Jr., MD [address] [facility] [address] [facility] [address] [place] [address] PCP - General Family Medicine 03/09/22 Moo Dumont, research psychologist Local Truck Driver 09/09/22 Plastering Supervisor Relationship Specialty Start Date End Date Clint Euceda Jr., MD [address] [facility] [address] [place] [place] [address] PCP - General Family Medicine 03/09/22 Moo Dumont, research psychologist Local Truck Driver 09/09/22 Plastering Supervisor Relationship Specialty Start Date End Date Clint Euceda Jr., MD [address] [place] [address] PCP - General Family Medicine 03/09/22 Moo Dumont, research psychologist Local Truck Driver 09/09/22 Plastering Supervisor Relationship Specialty Start Date End Date Clint Euceda Jr., MD [address] [place] [address] [place] [address] PCP - General Family Medicine 03/09/22 Moo Dumont, research psychologist Local Truck Driver 09/09/22 11/04/22 Plastering Supervisor Relationship Specialty Start Date End Date Clint Euceda Jr., MD [address] [facility] [address] [place] [place] [address] PCP - General Family Medicine 03/09/22 Moo Dumont, research psychologist Local Truck Driver 09/09/22 11/04/22 Plastering Supervisor Relationship Specialty Start Date End Date Clint Euceda Jr., MD [address] [facility] [address] [place] [place] [address] PCP - General Family Medicine 03/09/22 Moo Dumont, research psychologist Local Truck Driver 09/09/22 11/04/22 Plastering Supervisor Relationship Specialty Start Date End Date Clint Euceda Jr., MD [address] [facility] [address] [place] [place] [address] PCP - General Family Medicine 03/09/22 Inna Santillan, RN [facility] [place] [address] Primary Care Local Truck Driver 11/03/22 12/04/22 Plastering Supervisor Relationship Specialty Start Date End Date Clint Euceda Jr., MD [address] [facility] [address] [place] [address] [place] [address] PCP - General Family Medicine 03/09/22 Inna Santillan, RN [address] [place] [address] Primary Care Local Truck Driver 11/03/22 12/04/22 Plastering Supervisor Relationship Specialty Start Date End Date Clint Euceda Jr., MD [address] [place] [place] [address] PCP - General Family Medicine 03/09/22 Inna Santillan, RN [address] [facility] [place] [address] Primary Care Local Truck Driver 11/03/22 12/04/22 Plastering Supervisor Relationship Specialty Start Date End Date Clint Euceda Jr., MD [address] [place] [place] [address] PCP - General Family Medicine 03/09/22 Inna Santillan, RN [address] [facility] [place] [address] Primary Care Local Truck Driver 11/03/22 12/04/22 Plastering Supervisor Relationship Specialty Start Date End Date Clint Euceda Jr., MD [address] [place] [address] [place] [address] PCP - General Family Medicine 03/09/22 Inna Santillan, RN [address] [facility] [place] [address] Primary Care Local Truck Driver 11/03/22 02/01/23 Plastering Supervisor Relationship Specialty Start Date End Date Clint Euceda Jr., MD [address] [place] [address] [place] [address] PCP - General Family Medicine 03/09/22 Inna Santillan, RN [address] [place] [address] Primary Care Local Truck Driver 11/03/22 02/01/23 Plastering Supervisor Relationship Specialty Start Date End Date Clint Euceda Jr., MD [address] [place] [address] [place] [address] PCP - General Family Medicine 03/09/22 Inna Santillan, RN [address] [place], [place] [id number] Primary Care Local Truck Driver 11/03/22 02/01/23 Plastering Supervisor Relationship Specialty Start Date End Date Clint Euceda Jr., MD [address] [address] PCP - General Family Medicine 03/09/22 Inna Santillan, RN [address] [place], [place] [id number] Primary Care Local Truck Driver 11/03/22 02/01/23 Plastering Supervisor Relationship Specialty Start Date End Date Clint Euceda Jr., MD [address] [address] PCP - General Family Medicine 03/09/22 Plastering Supervisor Relationship Specialty Start Date End Date Clint Euceda Jr., MD [address] [address] PCP - General Family Medicine 03/09/22 Moo Dumont RN Primary Care Local Truck Driver 09/09/22 11/03/22 Inna Santillan, RN [address] [facility], [place] [id number] Primary Care Local Truck Driver 11/03/22 02/01/23 Plastering Supervisor Relationship Specialty Start Date End Date Karthik Holliday APRN.CNP [address] [place], [place] 039013 PCP - General Family Medicine 02/01/24 Josse De Oliveira MD [address] [place] [address] Specialty Cycle Analyst Neurology 10/27/23 Patricia Hsu PA-C [address] [facility] [place] [address] Specialty Cycle Analyst Neurology 10/27/23 Plastering Supervisor Relationship Specialty Start Date End Date Karthik Holliday APRN.RESIDENTIAL REAL ESTATE ASSISTANT [address] [place] [address] PCP - General Family Medicine 02/01/24 Josse De Oliveira MD [address] [place] [address] Specialty Cycle Analyst Neurology 10/27/23 Patricia Hsu PA-C [address] [place] [address] Specialty Cycle Analyst Neurology 10/27/23 Plastering Supervisor Relationship Specialty Start Date End Date Karthik Holliday CONSTRUCTION ESTIMATOR.RESIDENTIAL REAL ESTATE ASSISTANT [address] [place] [address] PCP - General Family Medicine 02/01/24 Josse De Oliveira MD [address] [place] [address] Specialty Cycle Analyst Neurology 10/27/23 Patricia Hsu PA-C [address] [place] [address] Specialty Cycle Analyst Neurology 10/27/23 Plastering Supervisor Relationship Specialty Start Date End Date Karthik Holliday APRN.RESIDENTIAL REAL ESTATE ASSISTANT [address] [place] [address] [phone] PCP - General Family Medicine 02/01/24 Josse De Oliveira MD [address] [place], [place] [phone] Specialty Cycle Analyst Neurology 10/27/23 Patricia Hsu PA-C [address] [place] [address] Specialty Cycle Analyst Neurology 10/27/23 Plastering Supervisor Relationship Specialty Start Date End Date Karthik Holliday, CONSTRUCTION ESTIMATOR.RESIDENTIAL REAL ESTATE ASSISTANT [address] [place] [address] PCP - General Family Medicine 02/01/24 Josse De Oliveira MD [address] [place] [address] Specialty Cycle Analyst Neurology 10/27/23 Patricia Hsu PA-C [address] [place] [address] Specialty Cycle Analyst Neurology 10/27/23 Plastering Supervisor Relationship Specialty Start Date End Date Karthik Holliday, CONSTRUCTION ESTIMATOR.RESIDENTIAL REAL ESTATE ASSISTANT [address] [place] [address] PCP - General Family Medicine 02/01/24 Josse De Oliveira MD [address] [place] [address] Specialty Cycle Analyst Neurology 10/27/23 Patricia Hsu PA-C [address] [place] [address] Specialty Cycle Analyst Neurology 10/27/23 Plastering Supervisor Relationship Specialty Start Date End Date Karthik Holliday APRN.RESIDENTIAL REAL ESTATE ASSISTANT [facility] [place] [address] PCP - General Family Medicine 02/01/24 Josse De Oliveira MD [address] [place] [address] Specialty Cycle Analyst Neurology 10/27/23 Patricia Hsu PA-C [address] [place] [address] Specialty Cycle Analyst Neurology 10/27/23 Plastering Supervisor Relationship Specialty Start Date End Date Karthik Holliday, CONSTRUCTION ESTIMATOR.RESIDENTIAL REAL ESTATE ASSISTANT [address] [place] [address] PCP - General Family Medicine 02/01/24 Josse De Oliveira MD [address] [place] [address] Specialty Cycle Analyst Neurology 10/27/23 Patricia Hsu PA-C [address] [place] [address] Specialty Cycle Analyst Neurology 10/27/23 Plastering Supervisor Relationship Specialty Start Date End Date Karthik Holliday CONSTRUCTION ESTIMATOR.RESIDENTIAL REAL ESTATE ASSISTANT [facility] [place] [address] PCP - General Family Medicine 02/01/24 Josse De Oliveira MD [address] [place] [address] Specialty Cycle Analyst Neurology 10/27/23 Patricia Hsu PA-C [address] [place] [address] Specialty Cycle Analyst Neurology 10/27/23 Plastering Supervisor Relationship Specialty Start Date End Date Karthik Holliday, CONSTRUCTION ESTIMATOR.RESIDENTIAL REAL ESTATE ASSISTANT [facility] [place], [place] 573483 PCP - General Family Medicine 02/01/24 Josse De Oliveira MD [address] [place], [place] [phone] Specialty Cycle Analyst Neurology 10/27/23 Patricia Hsu PA-C [address] [place] [address] Specialty Cycle Analyst Neurology 10/27/23 Jed Wolf MD [address] [place] [address] Primary Staff Physician Cardiology 05/08/24 Plastering Supervisor Relationship Specialty Start Date End Date Karthik Holliday, CONSTRUCTION ESTIMATOR.RESIDENTIAL REAL ESTATE ASSISTANT [facility] [place], [place] 468173 PCP - General Family Medicine 02/01/24 Josse De Oliveira MD [address] [place], [place] 0963095 Specialty Cycle Analyst Neurology 10/27/23 Patricia Hsu PA-C [address] [facility] [facility] [place] [address] Specialty Cycle Analyst Neurology 10/27/23 Jed Wolf MD [address] [place] [address] Primary Staff Physician Cardiology 05/08/24 Plastering Supervisor Relationship Specialty Start Date End Date Karthik Holliday, CONSTRUCTION ESTIMATOR.RESIDENTIAL REAL ESTATE ASSISTANT [address] [place] [address] [phone] PCP - General Family Medicine 02/01/24 Josse De Oliveira MD [address] [place] [address] Specialty Cycle Analyst Neurology 10/27/23 Patricia Hsu PA-C [address] [facility] [facility] [place] [address] Specialty Cycle Analyst Neurology 10/27/23 Jed Wolf MD [address] [facility] [facility] [place] [address] Primary Staff Physician Cardiology 05/08/24 Plastering Supervisor Relationship Specialty Start Date End Date Karthik Holliday, CONSTRUCTION ESTIMATOR.RESIDENTIAL REAL ESTATE ASSISTANT [facility] [place], [place] 825663 PCP - General Family Medicine 02/01/24 Josse De Oliveira MD [address] [place] [address] Specialty Cycle Analyst Neurology 10/27/23 Patricia Hsu PA-C [address] [place] [address] Specialty Cycle Analyst Neurology 10/27/23 Jed Wolf MD [address] [place] [address] Primary Staff Physician Cardiology 05/08/24 Plastering Supervisor Relationship Specialty Start Date End Date Karthik Holliday, CONSTRUCTION ESTIMATOR.RESIDENTIAL REAL ESTATE ASSISTANT [address] [place] [address] [phone] PCP - General Family Medicine 02/01/24 Josse De Oliveira MD [address] [place], [place] 7262895 Specialty Cycle Analyst Neurology 10/27/23 Patricia Hsu PA-C [address] [place] [address] Specialty Cycle Analyst Neurology 10/27/23 Jed Wolf MD [address] [place] [address] Primary Staff Physician Cardiology 05/08/24 Plastering Supervisor Relationship Specialty Start Date End Date Karthik Holliday, CONSTRUCTION ESTIMATOR.RESIDENTIAL REAL ESTATE ASSISTANT [address] [place] [address] [phone] PCP - General Family Medicine 02/01/24 Josse De Oliveira MD [address] [place] [address] Specialty Cycle Analyst Neurology 10/27/23 Patricia Hsu PA-C [address] [place] [address] Specialty Cycle Analyst Neurology 10/27/23 Jed Wolf MD [address] [place] [address] Primary Staff Physician Cardiology 05/08/24 Plastering Supervisor Relationship Specialty Start Date End Date Karthik Holliday, CONSTRUCTION ESTIMATOR.RESIDENTIAL REAL ESTATE ASSISTANT [address] [place] [address] 014753 PCP - General Family Medicine 02/01/24 Josse De Oliveira MD [address] [place] [address] Specialty Cycle Analyst Neurology 10/27/23 Patricia Hsu PA-C [address] [place] [address] Specialty Cycle Analyst Neurology 10/27/23 Jed Wolf MD [address] [place] [address] Primary Staff Physician Cardiology 05/08/24 Plastering Supervisor Relationship Specialty Start Date End Date Karthik Holliday, CONSTRUCTION ESTIMATOR.RESIDENTIAL REAL ESTATE ASSISTANT [address] [place] [address] [phone] PCP - General Family Medicine 02/01/24 Josse De Oliveira MD [address] [place] [address] Specialty Cycle Analyst Neurology 10/27/23 Patricia Hsu PA-C [address] [place] [address] Specialty Cycle Analyst Neurology 10/27/23 Jed Wolf MD [address] [place] [address] Primary Staff Physician Cardiology 05/08/24 Plastering Supervisor Relationship Specialty Start Date End Date Karthik Holliday, CONSTRUCTION ESTIMATOR.RESIDENTIAL REAL ESTATE ASSISTANT [address] [place] [address] PCP - General Family Medicine 02/01/24 Josse De Oliveira MD [address] [place] [address] Specialty Cycle Analyst Neurology 10/27/23 Patricia Hsu PA-C [address] [place] [address] Specialty Cycle Analyst Neurology 10/27/23 Jed Wolf MD [address] [place] [address] Primary Staff Physician Cardiology 05/08/24 Plastering Supervisor Relationship Specialty Start Date End Date Karthik Holliday, CONSTRUCTION ESTIMATOR.RESIDENTIAL REAL ESTATE ASSISTANT [address] [place] [address] 526703 PCP - General Family Medicine 02/01/24 Josse De Oliveira MD [address] [place] [address] Specialty Cycle Analyst Neurology 10/27/23 Patricia Hsu PA-C [address] [place] [address] Specialty Cycle Analyst Neurology 10/27/23 Jed Wolf MD [address] [place] [address] Primary Staff Physician Cardiology 05/08/24 Plastering Supervisor Relationship Specialty Start Date End Date Karthik Holliday, CONSTRUCTION ESTIMATOR.RESIDENTIAL REAL ESTATE ASSISTANT [address] [place] [address] PCP - General Family Medicine 02/01/24 Josse De Oliveira MD [address] [place] [address] Specialty Cycle Analyst Neurology 10/27/23 Patricia Hsu PA-C [address] [facility] [facility] [place] [address] Specialty Cycle Analyst Neurology 10/27/23 Jed [address] [facility] [place] [address] Primary Staff Physician Cardiology 05/08/24 Plastering Supervisor Relationship Specialty Start Date End Date Karthik Holliday, CONSTRUCTION ESTIMATOR.RESIDENTIAL REAL ESTATE ASSISTANT [address] [place] [address] PCP - General Family Medicine 02/01/24 Josse De Oliveira MD [address] [place] [address] Specialty Cycle Analyst Neurology 10/27/23 Patricia Hsu PA-C [address] [place] [address] Specialty Cycle Analyst Neurology 10/27/23 Jed Wolf MD [address] [place] [place] 8840395 Primary Staff Physician Cardiology 05/08/24 Inna Santillan RN Primary Care Local Truck Driver 09/11/24 Plastering Supervisor Relationship Specialty Start Date End Date Karthik Holliday, CONSTRUCTION ESTIMATOR.RESIDENTIAL REAL ESTATE ASSISTANT [address] [place], [place] 322033 PCP - General Family Medicine 02/01/24 Josse De Oliveira MD [address] [place] [address] Specialty Cycle Analyst Neurology 10/27/23 Patricia Hsu PA-C [address] [facility] [facility] [place] [address] Specialty Cycle Analyst Neurology 10/27/23 Jed Wolf MD [address] [facility] [place] [place] [address] Primary Staff Physician Cardiology 05/08/24 Inna Santillan RN Primary Care Local Truck Driver 09/11/24 Plastering Supervisor Relationship Specialty Start Date End Date Karthik Holliday, CONSTRUCTION ESTIMATOR.RESIDENTIAL REAL ESTATE ASSISTANT [address] [place], [place] 588103 PCP - General Family Medicine 02/01/24 Josse De Oliveira MD [address] [place], [place] 4180895 Specialty Cycle Analyst Neurology 10/27/23 Patricia Hsu PA-C [address] [place] [address] Specialty Cycle Analyst Neurology 10/27/23 Jed Wolf MD [address] [place] [address] Primary Staff Physician Cardiology 05/08/24 Inna Santillan, RN Primary Care Local Truck Driver 09/11/24 Plastering Supervisor Relationship Specialty Start Date End Date Karthik Holliday, CONSTRUCTION ESTIMATOR.RESIDENTIAL REAL ESTATE ASSISTANT [address] [place] [address] [phone] PCP - General Family Medicine 02/01/24 Josse De Oliveira MD [address] [place] [address] Specialty Cycle Analyst Neurology 10/27/23 Patricia Hsu PA-C [address] [place] [address] Specialty Cycle Analyst Neurology 10/27/23 Jed Wolf MD [address] [place] [address] Primary Staff Physician Cardiology 05/08/24 Inna Santillan, RN Primary Care Local Truck Driver 09/11/24 Plastering Supervisor Relationship Specialty Start Date End Date Karthik Holliday, CONSTRUCTION ESTIMATOR.RESIDENTIAL REAL ESTATE ASSISTANT [facility] [place], [place] 646743 PCP - General Family Medicine 02/01/24 Josse De Oliveira MD [address] [place] [address] Specialty Cycle Analyst Neurology 10/27/23 Patricia Hsu PA-C [address] [place] [address] Specialty Cycle Analyst Neurology 10/27/23 Jed Wolf MD [address] [place], [place] 8140595 Primary Staff Physician Cardiology 05/08/24 Inna Santillan, RN Primary Care Local Truck Driver 09/11/24 Plastering Supervisor Relationship Specialty Start Date End Date Karthik Holliday APRN.RESIDENTIAL REAL ESTATE ASSISTANT [address] [place] [address] PCP - General Family Medicine 02/01/24 Josse De Oliveira MD [address] [place] [address] Specialty Cycle Analyst Neurology 10/27/23 Patricia Hsu PA-C [address] [place] [address] Specialty Cycle Analyst Neurology 10/27/23 Jed Wolf MD [address] [place], [place] 9088995 Primary Staff Physician Cardiology 05/08/24 Inna Santillan RN Primary Care Local Truck Driver 09/11/24 Plastering Supervisor Relationship Specialty Start Date End Date Karthik Holliday APRN.RESIDENTIAL REAL ESTATE ASSISTANT [address] [place], [place] 063183 PCP - General Family Medicine 02/01/24 Josse De Oliveira MD [address] [place], [place] 7300595 Specialty Cycle Analyst Neurology 10/27/23 Patricia Hsu PA-C [address] [place] [address] Specialty Cycle Analyst Neurology 10/27/23 Jed Wolf MD [address] [facility] [place] 4002995 Primary Staff Physician Cardiology 05/08/24 Plastering Supervisor Relationship Specialty Start Date End Date Karthik Holliday, FELIX.RESIDENTIAL REAL ESTATE ASSISTANT [facility] [place], [place] 578103 PCP - General Family Medicine 02/01/24 Josse De Oliveira MD [address] [place], [place] 9353495 Specialty Cycle Analyst Neurology 10/27/23 Patricia Hsu PA-C [address] [place] [address] Specialty Cycle Analyst Neurology 10/27/23 Jed Wolf MD [address] [place], [place] 3592195 Primary Staff Physician Cardiology 05/08/24 Plastering Supervisor Relationship Specialty Start Date End Date Karthik Holliday APRN.RESIDENTIAL REAL ESTATE ASSISTANT [address] [place] [address] PCP - General Family Medicine 02/01/24 Josse De Oliveira MD [address] [place], [place] 4775895 Specialty Cycle Analyst Neurology 10/27/23 Patricia Hsu PA-C [address] [place] [address] Specialty Cycle Analyst Neurology 10/27/23 Jed Wolf MD [address] [place], [place] 7166695 Primary Staff Physician Cardiology 05/08/24 Plastering Supervisor Relationship Specialty Start Date End Date Karthik Holliday, FELIX.RESIDENTIAL REAL ESTATE ASSISTANT [address] [place] [address]71 PCP - General Family Medicine 02/01/24 Josse De Oliveira MD [address] [place] [address] Specialty Cycle Analyst Neurology 10/27/23 Patricia Hsu PA-C [address] [place] [address] Specialty Cycle Analyst Neurology 10/27/23 Jed Wolf MD [address] [place], [place] 3481995 Primary Staff Physician Cardiology 05/08/24 Plastering Supervisor Relationship Specialty Start Date End Date Karthik Holliday APRN.RESIDENTIAL REAL ESTATE ASSISTANT [address] [place] [address] PCP - General Family Medicine 02/01/24 Josse De Oliveira MD [address] [place], [place] 9373695 Specialty Cycle Analyst Neurology 10/27/23 Patricia Hsu PA-C [address] [place] [address] Specialty Cycle Analyst Neurology 10/27/23 Jed Wolf MD [address] [place], [place] 8391395 Primary Staff Physician Cardiology 05/08/24 Plastering Supervisor Relationship Specialty Start Date End Date Karthik Holliday, CONSTRUCTION ESTIMATOR.RESIDENTIAL REAL ESTATE ASSISTANT [address] [place] [address] [phone] PCP - General Family Medicine 02/01/24 Josse De Oliveira MD [address] [place], [place] 1087595 Specialty Cycle Analyst Neurology 10/27/23 Patricia Hsu PA-C [address] [place] [address] Specialty Cycle Analyst Neurology 10/27/23 Plastering Supervisor Relationship Specialty Start Date End Date Karthik Holliday CONSTRUCTION ESTIMATOR.RESIDENTIAL REAL ESTATE ASSISTANT [address] [place] [address] PCP - General Family Medicine 02/01/24 Josse De Oliveira MD [address] [place] [address] Specialty Cycle Analyst Neurology 10/27/23 Patricia Hsu PA-C [address] [place] [address] Specialty Cycle Analyst Neurology 10/27/23 Jed Wolf MD [address] [place] [address] Primary Staff Physician Cardiology 05/08/24 Plastering Supervisor Relationship Specialty Start Date End Date Karthik Holliday, FELIX.RESIDENTIAL REAL ESTATE ASSISTANT [address] [place] [address] [phone] PCP - General Family Medicine 02/01/24 Josse De Oliveira MD [address] [place] [address] Specialty Cycle Analyst Neurology 10/27/23 Patricia Hsu PA-C [address] [place] [address] Specialty Cycle Analyst Neurology 10/27/23 Jed Wolf MD [address] [place] [address] Primary Staff Physician Cardiology 05/08/24 Plastering Supervisor Relationship Specialty Start Date End Date Karthik Holliday, CONSTRUCTION ESTIMATOR.RESIDENTIAL REAL ESTATE ASSISTANT [address] [place] [address] [phone] PCP - General Family Medicine 02/01/24 Josse De Oliveira MD [address] [place] [address] Specialty Cycle Analyst Neurology 10/27/23 Patricia Hsu PA-C [address] [place] [address] Specialty Cycle Analyst Neurology 10/27/23 Jed Wolf MD [address] [place] [address] Primary Staff Physician Cardiology 05/08/24 Plastering Supervisor Relationship Specialty Start Date End Date Karthik Holliday APRN.RESIDENTIAL REAL ESTATE ASSISTANT [address] [place] [address] PCP - General Family Medicine 02/01/24 Josse De Oliveira MD [facility] [place] [address] Specialty Cycle Analyst Neurology 10/27/23 Patricia Hsu PA-C [facility] [place] [address] Specialty Cycle Analyst Neurology 10/27/23 Jed Wolf MD [address] [place] [address] Primary Staff Physician Cardiology 05/08/24 Anya Huang, FELIX.RESIDENTIAL REAL ESTATE ASSISTANT [address] [address] Referring Neurology 10/30/24 Plastering Supervisor Relationship Specialty Start Date End Date Karthik Holliday APRN.RESIDENTIAL REAL ESTATE ASSISTANT [facility] [place] [address] PCP - General Family Medicine 02/01/24 Josse De Oliveira MD [address] [place] [address] Specialty Cycle Analyst Neurology 10/27/23 Patricia Hsu PA-C [address] [place] [address] Specialty Cycle Analyst Neurology 10/27/23 eJd Wolf MD [address] [place], [place] 8858995 Primary Staff Physician Cardiology 05/08/24 Anya Huang APRN.RESIDENTIAL REAL ESTATE ASSISTANT [address] [address] Referring Neurology 10/30/24 Plastering Supervisor Relationship Specialty Start Date End Date Karthik Holliday APRN.RESIDENTIAL REAL ESTATE ASSISTANT [address] [place] [address] PCP - General Family Medicine 02/01/24 Josse De Oliveira MD [address] [place] [address] Specialty Cycle Analyst Neurology 10/27/23 Patricia Hsu PA-C [address] [place], [place] 0318094 Specialty Cycle Analyst Neurology 10/27/23 Jed Wolf MD [address] [place] [address] Primary Staff Physician Cardiology 05/08/24 Anya Huang APRN.RESIDENTIAL REAL ESTATE ASSISTANT [address] [phone] Referring Neurology 10/30/24 Plastering Supervisor Relationship Specialty Start Date End Date Karthik Holliday, CONSTRUCTION ESTIMATOR.RESIDENTIAL REAL ESTATE ASSISTANT [address] [place] [address] PCP - General Family Medicine 02/01/24 Josse De Oliveira MD [address] [place] [address] Specialty Cycle Analyst Neurology 10/27/23 Patricia Hsu PA-C [address] [place] [address] Specialty Cycle Analyst Neurology 10/27/23 Jed Wolf [facility] [address] [facility] [place] [place] 9844595 Primary Staff Physician Cardiology 05/08/24 Anya Huang APRN.RESIDENTIAL REAL ESTATE ASSISTANT [address] [address] Referring Neurology 10/30/24 Plastering Supervisor Relationship Specialty Start Date End Date Karthik Holliday, CONSTRUCTION ESTIMATOR.RESIDENTIAL REAL ESTATE ASSISTANT [address] [place], [place] 647583 PCP - General Family Medicine 02/01/24 Josse De Oliveira MD [address] [place], [place] 1940895 Specialty Cycle Analyst Neurology 10/27/23 Patricia Hsu PA-C [address] [place] [address] Specialty Cycle Analyst Neurology 10/27/23 Jed Wolf MD [address] [place] [address] Primary Staff Physician Cardiology 05/08/24 Anya Huang, CONSTRUCTION ESTIMATOR.RESIDENTIAL REAL ESTATE ASSISTANT [address] [place] [address] [place] [address] [phone] Referring Neurology 10/30/24 Plastering Supervisor Relationship Specialty Start Date End Date Karthik Holliday CONSTRUCTION ESTIMATOR.RESIDENTIAL REAL ESTATE ASSISTANT [address] [place] [address] PCP - General Family Medicine 02/01/24 Josse De Oliveira MD [address] [place], [place] 6501695 Specialty Cycle Analyst Neurology 10/27/23 Patricia Hsu PA-C [address] [place] [address] Specialty Cycle Analyst Neurology 10/27/23 Jed Wolf MD [address] [place] [address] Primary Staff Physician Cardiology 05/08/24 Anya Huang, CONSTRUCTION ESTIMATOR.RESIDENTIAL REAL ESTATE ASSISTANT [address] [place] [address] [place] [address] [phone] Referring Neurology 10/30/24 Plastering Supervisor Relationship Specialty Start Date End Date Karthik Holliday, CONSTRUCTION ESTIMATOR.RESIDENTIAL REAL ESTATE ASSISTANT [address] [place], [place] 591433 PCP - General Family Medicine 02/01/24 Josse De Oliveira MD [address] [place], [place] 6770095 Specialty Cycle Analyst Neurology 10/27/23 Patricia Hsu PA-C [address] [place], [place] 8321094 Specialty Cycle Analyst Neurology 10/27/23 Jed Wolf [facility] [address] [facility] [place] [place] 6958995 Primary Staff Physician Cardiology 05/08/24 Anya Huang, CONSTRUCTION ESTIMATOR.RESIDENTIAL REAL ESTATE ASSISTANT [address] [phone] Referring Neurology 10/30/24 Plastering Supervisor Relationship Specialty Start Date End Date Karthik Holliday, CONSTRUCTION ESTIMATOR.RESIDENTIAL REAL ESTATE ASSISTANT [address] [place] [address] PCP - General Family Medicine 02/01/24 Josse De Oliveira MD [address] [place], [place] 4794895 Specialty Cycle Analyst Neurology 10/27/23 Patricia Hsu PA-C [address] [place], [place] 4437694 Specialty Cycle Analyst Neurology 10/27/23 Jed Wolf MD [address] [place], [place] 7607095 Primary Staff Physician Cardiology 05/08/24 Anya Huang, FELIX.RESIDENTIAL REAL ESTATE ASSISTANT [address] [place] [address] [place] [address] [phone] Referring Neurology 10/30/24 Plastering Supervisor Relationship Specialty Start Date End Date Karthik Holliday CONSTRUCTION ESTIMATOR.RESIDENTIAL REAL ESTATE ASSISTANT [address] [place], [place] 514803 PCP - General Family Medicine 02/01/24 Josse De Oliveira MD [address] [place], [place] 5205795 Specialty Cycle Analyst Neurology 10/27/23 Patricia Hsu PA-C [address] [place], [place] 2300394 Specialty Cycle Analyst Neurology 10/27/23 Jed Wolf MD [address] [place], [place] 1607595 Primary Staff Physician Cardiology 05/08/24 Anya Huang, CONSTRUCTION ESTIMATOR.RESIDENTIAL REAL ESTATE ASSISTANT [address] [phone] Referring Neurology 10/30/24 Team Status: Inactive Member Role Status Dates Violette MCCALL Attending Provider Active Sta rt: November 06, 2024 End: November 06, 2024 Team Status: Inactive Member Role Status Dates Violette MCCALL Attending Provider Active Sta rt: January 08, 2025 End: January 08, 2025 Violette MCCALL Referring Provider Active Sta rt: January 08, 2025 End: January 08, 2025 Team Status: Active Member Role Status Dates Violette MCCALL Attending Provider Active Sta rt: February 05, 2025 Plastering Supervisor Relationship Specialty Start Date End Date Karthik Holliday APRN.RESIDENTIAL REAL ESTATE ASSISTANT [address] [place] [address] PCP - General Family Medicine 02/01/24 Josse De Oliveira MD [address] [place], [place] 8941995 Specialty Cycle Analyst Neurology 10/27/23 Patricia Hsu PA-C [address] [place], [place] 2085494 Specialty Cycle Analyst Neurology 10/27/23 Jed Wolf MD [address] [place], [place] 3945395 Primary Staff Physician Cardiology 05/08/24 Anya Huang, CONSTRUCTION ESTIMATOR.RESIDENTIAL REAL ESTATE ASSISTANT [address] [address] Referring Neurology 10/30/24 Team Status: Inactive Member Role Status Dates Violette MCCALL Attending Provider Active Sta rt: February 05, 2025 End: February 05, 2025 Plastering Supervisor Relationship Specialty Start Date End Date Violette Abdi MD [address] [facility] [place] [address] PCP - General Internal Medicine 03/14/25 Josse De Oliveira MD [address] [place], [place] [id number] Specialty Cycle Analyst Neurology 10/27/23 Patricia Hsu PA-C [address] [place] [address] Specialty Cycle Analyst Neurology 10/27/23 Jed Wolf MD [address] [place], [place] [id number] Primary Staff Physician Cardiology 05/08/24 Anya Huang APRN.RESIDENTIAL REAL ESTATE ASSISTANT [address] [facility] [address] [place] [address] Referring Neurology 10/30/24 Team Status: Inactive Member Role/Relationship Status Dates Violette MCCALL Attending Provider Active Sta rt: January 08, 2025 End: January 08, 2025 Violette MCCALL Referring Provider Active Sta rt: January 08, 2025 End: January 08, 2025 Team Status: Inactive Member Role/Relationship Status Dates Violette MCCALL Attending Provider Active Sta rt: February 05, 2025 End: February 05, 2025 Team Status: Inactive Member Role/Relationship Status Dates Violette MCCALL Attending Provider Active Sta rt: March 20, 2025 End: March 20, 2025 Plastering Supervisor Relationship Specialty Start Date End Date Violette Abdi MD [facility] [address] [place] [address] PCP - General Internal Medicine 03/14/25 Josse De Oliveira MD [address] [place], [place] [id number] Specialty Cycle Analyst Neurology 10/27/23 Patricia Hsu PA-C [address] [place] [address] Specialty Cycle Analyst Neurology 10/27/23 Jed Wolf MD [address] [place] [address] Primary Staff Physician Cardiology 05/08/24 Anya Huang APRN.RESIDENTIAL REAL ESTATE ASSISTANT [address] [place] [address] Referring Neurology 10/30/24 Plastering Supervisor Relationship Specialty Start Date End Date Violette Abdi MD [address] [facility] [address] [place] [address] PCP - General Internal Medicine 03/14/25 Josse De Oliveira MD [address] [place] [address] Specialty Cycle Analyst Neurology 10/27/23 Patricia Hsu PA-C [address] [place] [address] Specialty Cycle Analyst Neurology 10/27/23 Jed Wolf MD [address] [place] [address] Primary Staff Physician Cardiology 05/08/24 Anya Huang APRN.RESIDENTIAL REAL ESTATE ASSISTANT [address] [place] [address] Referring Neurology 10/30/24 Plastering Supervisor Relationship Specialty Start Date End Date Viloette Abdi MD [address] [facility] [address] [place] [address] PCP - General Internal Medicine 03/14/25 Josse De Oliveira MD [address] [place], [place] [id number] Specialty Cycle Analyst Neurology 10/27/23 Patricia Hsu PA-C [address] [place], [place] [id number] Specialty Cycle Analyst Neurology 10/27/23 Jed Wolf MD [address] [place], [place] [id number] Primary Staff Physician Cardiology 05/08/24 Anya Huang APRN.RESIDENTIAL REAL ESTATE ASSISTANT [address] [place] [address] Referring Neurology 10/30/24 Reason for Visit (unrecogniz ed section and content) Reason Comments Refill Request Lipitor Reason Comments Refill Request CHLOROTHILADONE AND TAMSULOSIN Blood Pressure Check Reason Comments Back Pain upper back, last few months, furniture walking Reason Comments Fall Has felt off balance , fell 3 times Reason Onset Date Comments No Show No Show 09/03/2022 No show Reason Onset Date Comments 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 Care 09/07/2022 [facility] to [facility] 09/06/22 Reason Onset Date Comments Hospital F/U 09/08/2022 Reason Comments Patient Question Pt would like to see Neurology to investigate possibility of Parkinsonism. Reason Onset Date Comments 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 Care 09/21/2022 Reason Comments Referral Information Consult to Neurolog y # [id number] Reason Onset Date Comments 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 Care 09/29/2022 SNF update Reason Comments New Patient Shuffling and falls Reason Onset Date Comments 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 Care 10/08/[facility] Reason Comments Urinary Frequency Reason Comments Established Patient More evidence if I h ave Parkinson's Syndrome Specialty Diagnoses / Procedures Referred By Contwillem t Referred To Contact Diagnoses Shuffling gait Gait instability Procedures PROVIDER ORDERED FOLLOW UP OFFICE/OUTPATIENT NEW HIGH MDM 60-74 MINUTES Josse De Oliveira MD [address] [place] [id number] Referral ID Status Reason Start Date Expiration Date V isits Requested Visits Authorized [id number] Closed PCP Requested Referral 10/21/2022 10/07/2023 1 1 Reason Comments Medication Problem Reason Onset Date Comments 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 Care 11/10/2022 TCM follow up call Reason Comments 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 Care Ag [facility] 11/01/2022 p neumonia Reason Onset Date Comments 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 Care 11/17/2022 TCM follow up call Reason Onset Date Comments 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 Care 11/24/2022 TCM PNA follo w up call Reason Onset Date Comments 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 Care 12/01/2022 TCM PNA follo w up call Reason Onset Date Comments Refill Request 12/17/2022 Reason Comments Established Patient Follow up on lissette on's dx Reason Comments Appointment Cancellation Reason Comments Refill Request Reason Comments Established Patient Transfer of care Reason Comments Results Reason Onset Date Comments Refill Request 02/09/2024 Reason Onset Date Comments Hospital F/U 04/26/2024 Reason Onset Date Comments 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 Care 04/26/2024 [facility] Reason Onset Date Comments Hospital F/U 04/27/2024 Reason Comments Results Reason Comments Patient Update Reason Comments Established Patient Specialty Diagnoses / Procedures Referred By Contac t Referred To Contact Diagnoses Atrial flutter, unspecified type (HCC) Traumatic subdural hematoma with loss of consciousness, sequela (HCC) Procedures CONSULT TO ELECTROPHYSIOLOGY OFFICE/OUTPATIENT [facility] 60 MINUTES Anya Huang, CONSTRUCTION ESTIMATOR.RESIDENTIAL REAL ESTATE ASSISTANT [address] [place] [address] Referral ID Status Reason Start Date Expiration Date V isits Requested Visits Authorized [id number] Closed PCP Requested Referral 05/03/2024 05/03/2025 1 1 Specialty Diagnoses / Procedures Referred By Contac t Referred To Contact CT IMAGING Diagnoses SDH (subdural hematoma) (HCC) Procedures CT BRAIN WO IVCON CT HEAD/BRAIN W/O CONTRAST MATERIAL Scott Minor, CONSTRUCTION ESTIMATOR.RESIDENTIAL REAL ESTATE ASSISTANT [address] [place] [address] Ct Imaging [place] [address] Referral ID Status Reason Start Date Expiration Date V isits Requested Visits Authorized [id number] Closed Auto-Generate d Referral 05/08/2024 07/07/2024 1 1 Reason Onset Date Comments 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 Care 05/22/2024 [facility] Reason Comments Follow Up Reason Onset Date Comments 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 Care 06/08/2024 [facility] Reason Comments Hospital Discharge Reason Comments Established Patient Specialty Diagnoses / Procedures Referred By Contac t Referred To Contact CT IMAGING Diagnoses Traumatic subdural hematoma with loss of consciousness, sequela (HCC) Intracranial meningioma (HCC) Procedures CT BRAIN WO IVCON CT HEAD/BRAIN W/O CONTRAST MATERIAL Agata Del Toro, CONSTRUCTION ESTIMATOR.RESIDENTIAL REAL ESTATE ASSISTANT [address] [facility] [place] [address] [place] [address] Referral ID Status Reason Start Date Expiration Date V isits Requested Visits Authorized [id number] Closed Auto-Generate d Referral 06/20/2024 09/20/2024 1 1 Reason Onset Date Comments 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 Care 09/11/[facility] Reason Comments Opened In Error Reason Comments Follow Up Rehab follow up, Reason Comments High blood pressure Reason Onset Date Comments 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 Care 09/29/2024 [facility] Specialty Diagnoses / Procedures Referred By Contac t Referred To Contact MR IMAGING Diagnoses Silent micro-hemorrhage of brain (HCC) Procedures MRI BRAIN WO IVCON MRI BRAIN BRAIN STEM W/O CONTRAST MATERIAL Anya Huang, CONSTRUCTION ESTIMATOR.RESIDENTIAL REAL ESTATE ASSISTANT [address] [place] [address] Mr Imaging [facility] Referral ID Status Reason Start Date Expiration Date V isits Requested Visits Authorized [id number] Closed Auto-Generate d Referral 08/07/2024 10/06/2024 1 1 Reason Comments Consult Reason Comments Follow Up Referral ID Status Reason Start Date Expiration Date V isits Requested Visits Authorized [id number] Closed Auto-Generate d Referral 10/18/2024 01/15/2025 1 1 Reason Comments Newly Diagnosed Specialty Diagnoses / Procedures Referred By Contac t Referred To Contact Diagnoses Multiple subsegmental pulmonary emboli without acute cor pulmonale (HCC) Acute deep vein thrombosis (DVT) of proximal vein of lower extremity, unspecified laterality (HCC) Procedures CONSULT TO HEMATOLOGY/ONCOLOGY OFFICE/OUTPATIENT [facility] 60 MINUTES Anya Huang APRN.RESIDENTIAL REAL ESTATE ASSISTANT [address] [address] Referral ID Status Reason Start Date Expiration Date V isits Requested Visits Authorized [id number] Closed PCP Requested Referral 10/26/2024 10/26/2025 1 1 Reason Onset Date Comments 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 Care 03/14/2025 SNF update - halfway resident Goals (unrecognized section and content) Goals may be documented in a n alternate sectionGoals may be documented in an alternate sectionGoals may be documented in an alternate sectionGoals may be documented in an alternate sectionGoals may be documented in an alternate section FOR RECORDS PERTAINING TO PATIENTS WHO ARE OR HAVE BEEN ENROLLED IN A CHEMICAL DEPENDENCY/SUBSTANCEABUSE PROGRAM, SOME INFORMATION MAY BE OMITTED. This clinical summary was aggregated from multiple sources. Caution should be exercised in using it in the provision of clinical care. This summary normalizes information from multiple sources, and as a consequence, information in this document may materially change the coding, format and clinical context of patient data. In addition, data may be omitted in some cases. CLINICAL DECISIONS SHOULD BE BASED ON THE PRIMARY CLINICAL RECORDS. [email or web address] provides no warranty or guarantee of the accuracy or completeness of information in this document.
[2025-05-21 09:38] LABS: Anion Gap 11 (5-15); BUN 16 mg/dL (4-19); BUN/Creat Ratio 18.3 RATIO (10-20); Calcium,Total 8.9 mg/dL (7.6-11.0); Carbon Dioxide 24.7 mmol/L (21.0-32.0); Chloride 106 mmol/L (98-108); Glucose 88 mg/dL (70-99); Potassium 3.9 mmol/L (3.3-5.1)
[2025-05-21 11:56] LABS: Hematocrit 43.2 % (40-54); Hemoglobin 14.2 g/dL (13.0-16.5); Mean Corp Hgb Conc 32.9 g/dL (32-36); Mean Corpuscular Volume 91.5 fL (80-94); Mean Platelet Vol. 11.2 fl (6.2-12.0); Platelet Count 272 K/mm3 (150-450); RBC Distribution Width CV 13.5 % (11.6-14.6); RBC Distribution Width SD 45.5 fl (35.1-43.9); Red Blood Count 4.72 M/mm3 (4.6-6.2); White Blood Count 7.9 K/mm3 (4.4-11.0)
== END ==
LOC: OLS.SANC 05:00
PROVIDERS: Visit Provider Internal Medicine
DX: I11.0 Hypertensive heart disease with heart failure (principal); I50.9 Heart failure, unspecified; E78.5 Hyperlipidemia, unspecified
CPT/HCPCS: 36415; 80048; 85027

== ENCOUNTER → 2025-07-18 | Outpatient (REF) | payer MEDICARE, SELFPAY ==
--- OUTSIDE RECORDS SUMMARY | 2025-07-18 04:09 | XMS RPT_ITS | CCD ---
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 Name Role Phone Ty BROTHERS, Ángel Rivera Primary Care Provide r Kelechi BROTHERS, Paul Unavailable Kinsey Ruggiero MD, Clint Perez [facility] Provi ana Kinsey Ruggiero MD, Clint Perez [facility] Provi ana Tim BARRETT, Moo Unavailable Unavailable Kinsey Ruggiero MD, Clint Perez [facility] Provi ana Tim RN, Moo Unavailable Unavailable IZA, JOSSE Attending Unavailable CLINT EUECDA JR Referring Unavail able CLINT EUCEDA JR Primary [facility] Unavail able Tim RN, Moo Unavailable Unavailable Jacque BARRETT, Dayan A Unavailable [phone] Jacque RN, Dayan A Unavailable [phone] Tim BARRETT, Moo Unavailable Unavailable Jacque RN, Dayan A Unavailable [phone] Iza BROTHERS, Josse Unavailable Aracelis CIFUENTES, Patricia Romano Unavailable [phone] Mastrucci JURY CONSULTANT.RN ELIGIBILITY, Karthik Primary Care Provider Mastrucci JURY CONSULTANT.RN ELIGIBILITY, Karthik Primary Care Provider Jed Wolf MD Unavailable Jacque BARRETT, Dayan A Unavailable Sal JURY CONSULTANT.Anya GILES Unavailable [phone] Violette Chen Attending Provider Unavailab Violette Christian Referring Provider Unavailab Violette Osei MD Primary Care Provider Trinidad MCCALL, Violette Attending Provider Unavailab rosa MCCALL, Violette Attending Unavailable Trinidad MCCALL, Violette Attending Unavailable Trinidad MCCALL, Violette Attending Unavailable Trinidad MCCALL, Violette Attending Unavailable Trinidad MCCALL, Violette Referring Unavailable Trinidad MCCALL, Violette Attending Unavailable Trinidad, Violette Referring Unavailable Trinidad, Violette Attending Unavailable Trinidda MCCALL, Violette Attending Unavailable Trinidad MCCALL, Violette Attending Unavailable Trinidad MCCALL, Violette Attending Unavailable FAITH MOORE Attending Unavailable MASTRUCCI, KARTHIK Primary Care Unavailable ANYA HUANG Referring Unavailable MASTRUCCI, KARTHIK Primary Care Unavailable AGATA DEL TORO Referring Unavailable KHAYYAT, LEONARD F Attending Unavailable MASTRUCCI, KARTHIK Primary Care Unavailable ANYA HUANG Referring Unavailable MASTRUCCI, KARTHIK Primary Care Unavailable KHAYYAT, LEONARD F Attending Unavailable MASTRUCCI, KARTHIK Primary Care Unavailable MASTRUCCI, KARTHIK Attending Unavailable SELF Referring Unavailable FAITH MOORE Referring Unavailable MASTRUCCI, KARTHIK Primary Care Unavailable MASTRUCCI, KARTHIK Primary Care Unavailable KHAYYAT, LEONARD F Referring Unavailable MASTRUCCI, KARTHIK Primary Care Unavailable KHAYYAT, LEONARD F Attending Unavailable KHAYYAT, LEONARD F Referring Unavailable MASTRUCCI, KARTHIK Primary Care Unavailable ANYA HUANG Attending Unavailable MASTRUCCI, KARTHIK Primary Care Unavailable FLORENCIO FAIR Attending Unavailable DEEDEE MAXWELL Admitting Unavailable ITRAT, AHMED Consulting Unavailable CANDELARIO SCHWARTZ Referring Unavailable VIOLETTE ABDI Primary Care Unavaila FAITH Chow Attending Unavailable VIOLETTE ABDI Primary Care Unavaila ble MASTRUCCI, KARTHIK Primary Care Unavailable MASTSOFIACCI, KARTHIK Attending Unavailable ANYA HUANG Attending Unavailable VIOLETTE ABDI Primary Care Unavaila ble MASTRUCCI, KARTHIK Primary Care Unavailable ANYA HUANG Attending Unavailable MASTRUCCI, KARTHIK Primary Care Unavailable AGATA DEL TORO Referring Unavailable Medications Current Medications Medication Drug Class(es) [...] on above: Take 2 tablets by mo uth every 6 hours as needed for pain [...] (20 sources) Factor Xa Inhibitor Start: 12-10-2024 End: 06-11-2026 take 1 tablet by mouth twice daily ELIQUIS 5 mg tab(s) Take 1 tablet by mouth two times a day. 60 tablet 11 06/11/2025 06/11/2026 Active Start: 09-28-2024 End: 12-24-2024 take 2 tablets by mouth twice daily, [...] above: Take 1 tablet by linda th once daily. TAKE ONE TABLET BY M [...] as needed for constipation. 0 06/04/2024 Discontinued 12 hr buPROPion hydrochloride 150 mg extended release oral tablet (20 sources) Aminoketone Start: 05-31-2025 buPROPion SR ( WELLBUTRIN SR) 150 mg 12 hr tablet 05/31/2025 Active Start: 12-01-2024 End: 03-01-2025 take 1 tablet [...] on above: TAKE ONE TABLET BY M OUT EVERY DAY Take 1 tablet by linda once daily. Take 40 mg by mouth once daily. magnesium hydroxide 240 mg/ml oral suspension (17 sources) take 10 mL by mouth once daily as needed magnesium hydroxide 2,400 mg/10 mL susp Take 10 mL by mouth once daily as needed. Active End: 06-04-2024 magnesium hydroxide (MILK OF MAGNESIA ORAL) Take by mouth. 0 06/04/2024 Discontinued magnesium hydrox ad (MILK OF MAGNESIA ORAL) Take by mouth. 0 Active magnesium, aluminum hydroxid e (ALUMINUM-MAGNESIUM HYDROXIDE ORAL) (11 sources) End: 10-27-2024 magnesium, aluminum hydroxid e [...] 2 09/18/2024 10/18/2024 Active polyethylene glycol 3350 68746 mg powder for oral solution (20 sources) [...] on above: Take 1 Packet by linda once daily as needed for constipation. Dissolve dose in 4 - 8 ounces of liquid and take as directed. sennosides, mcc 8.6 mg oral tablet (9 sources) take 1 tablet by mouth twice [...] Comment on above: Take 1 capsule by [facility] daily at bedtime. Completed/Discontinued Medications Medication Drug [...] twice daily. Take 2 tablets by mo [facility] three times daily. Take 0.5 tablets by mouth three times daily. chlorthalidone 25 mg oral tablet (20 sources) Thiazide-like Diuretic Start: 2020 End: 2023 take 1 tablet by mouth once daily chlorthalidone (HYGROTON) 25 mg tablet Indications: Essential hypertension Take 1 tablet by mouth once daily. 30 tablet 5 11/12/2022 02/01/2024 Discontinued Comment on above: Take [address] [facility] once daily. cholecalciferol 0.05 mg oral capsule (20 sources) Vitamin D End: 2023 take 1 capsule by mouth once daily Cholecalciferol, Vitamin D3, 50 mcg (2,000 unit) cap Take 1 capsule by mouth once daily. 0 02/01/2024 Discontinued Comment on above: Take by mouth once d aily. Take 1 capsule by [facility] once daily. docusate sodium 50 mg / sennosides, mcc 8.6 mg oral tablet (20 sources) Start: [...] hematoma] Onset: 04-15-2024 04-15-2024 Chronic Cardiac dysrhythmias (10 sources) Atrial flutter; Translations: [Unspecified atrial flutter] Onset: 05-05-2025 05-03-2024 Chronic Complication of device; implant or graft (5 sources) Leakage of cardiac device; Translations: [Leakage of unspecified cardiac and vascular devices and implants, initial encounter] Onset: 05-14-2025 01-20-2025 Episodic Congestive heart failure; nonhypertensive (2 sources) Heart failure, unspecified; Translations: [Heart failure, unspecified] [...] 02-01-2024 Episodic Late effects of cerebrovascular disease (6 sources) 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; Translations: [Hemiplegia and hemiparesis following cerebral infarction affecting left non-dominant side] 06-12-2024 Chronic Mood disorders (1 source) Mood disorders; Translations: [Depression, unspecified depression type] Onset: 11-28-2024 Nutritional deficiencies (20 sources) Vitamin D deficiency; Translations: [Vitamin D deficiency, unspecified] Onset: 05-25-2016 12-16-2017 Chronic Other aftercare (1 source) Long-term current use of diuretic; Translations: [Other long 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 mining 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 (current) drug therapy] Episodic Other aftercare (2 [...] [Intracranial meningioma (HCC)] Onset: 05-09-2024 Chronic Other and unspecified benign neoplasm (1 source) Benign neoplasm of meninges, unspecified; Translations: [Benign neoplasm of meninges (HCC)] Onset: 10-27-2024 Chronic Other circulatory disease (1 source) History [...] disease] Onset: 09-05-2022 09-05-2022 Chronic Parkinson`s disease (1 source) Parkinson`s disease; Translations: [Parkinson's disease without dyskinesia, unspecified whether manifestations fluctuate (HCC)] Onset: 09-05-2022 Residual codes; unclassified (20 sources) [...] kidney failure, unspecified] Onset: 10-30-2022 10-30-2022 Episodic Cardiac dysrhythmias (20 sources) Bradycardia; Translations: [...] 09-18-2024 Episodic Other aftercare (1 source) Other long wall mining 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 (current) drug therapy; Translations: [Other longterm (current) drug therapy] Onset: 11-23-2024 Episodic Other [...] Onset: 09-23-2024 Episodic Phlebitis; thrombophlebitis and thromboembolism (4 sources) Acute deep vein thrombosis of lower limb; Translations: [Acute embolism and thrombosis of unspecified deep veins of unspecified proximal lower extremity] Onset: 12-12-2024 10-26-2024 Episodic Pneumonia (except that caused by tuberculosis or sexually transmitted disease) (20 sources) Bilateral pneumonia; Translations: [Pneumonia, unspecified organism] Onset: 10-30-2022 10-30-2022 Episodic Pulmonary heart disease (20 sources) Pulmonary embolism; Translations: [Multiple subsegmental pulmonary emboli without acute cor pulmonale] Onset: 09-24-2024 09-24-2024 Episodic Residual codes; unclassified (20 sources) Bilateral lower limb edema; Translations: [Localized edema] Onset: 05-25-2016 Resolved: 12-25-2020 12-25-2020 Episodic Screening and history of mental health and substance abuse codes (2 sources) Encounter for screening for depression; Translations: [Encounter for screening examination for other mental health and behavioral disorders] Onset: 09-18-2024 Episodic Urinary tract infections (1 source) Urinary tract infection, site not specified; Translations: [Urinary tract infection, site not specified] Onset: 07-03-2024 Episodic Results Test Name Value Interpretation Reference Range Facility CNOVon 06-21-2025 CNOV Office Visit (CVAKPO) ALFONZO SIMON ([id number]) 1960 Date Time Provider Department 06/21/25 1:00 PM ANYA HUANG CVELÍAS During your visit today, we recorded the following information about you: Pulse Blood pressure Weight Height 57/minute 160/74 147.4 kg 1.829 m Anya Huang APRN.RN ELIGIBILITY 06/21/2025 3:32 PM [facility] Established Visit Recording using ambient BitLit software for draft documentation of the visit was discussed with the patient/authorized branch sales and service representative; all questions welcomed and answered. Patient/authorized branch sales and service representative agreed to proceed Consultation is requested by: No referring provider defined for this encounter. PCP: Karthik Holliday [address] [place] [address] CEREBROVASCULAR HISTORY Alfonzo Simon is a 64 year old left-handed male presenting for hospital discharge follow up. Admitted to [facility] 04/15-04/25/24. From discharge summary Mr. Alfonzo Simon was directly admitted to [facility] on 04/15/2024 for treatment of injuries [...] be a meningioma on 04/16/[address] Patel. On the day of his surgery, he [...] outpatient follow-up with his treating neurosurgery (Dr. Patel) two weeks post-operatively for re-evaluation and craniotomy [...] discharge. Mr. Simon would be discharged to [facility] rehab in stable condition on 04/25/2024. He would require outpatient follow-up care with his treating neurosurgeon, stroke neurology and urology as well as his primary care provider. Reason for Visit: subdural hematoma, subarachnoid hemorrhage and ischemic stroke Date of Last Event: 04/15/2024 Antiplatelets/Antico agulants: Apixaban Statins: Atorvastatin Residual Deficits: Motor weakness Current PT/OT/ST: Physical therapy at home, Occupational therapy at home and Speech therapy at home Current Living Situation: Still in a rehab facility Current use of a mobility aid for walking/getting around: Walker Office Visit 05/30/24 -presents for hospital discharge follow up -denies any new symptoms or clinical events -living at [facility] -prior to this lived at home with -PT, OT, speech -LUE weakness, aphasia getting better -ambulates with walker and assistance -in atrial flutter on outpatient event monitor -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 Normal [facility] CNOVSPon 06-11-2025 [facility] Visit (SP) Office (HEMAPOB) ALFONZO SIMON ([id number]) 1960 M Date Time Provider Department 06/11/25 10:00 AM FAITH MOORE HEMAPARNIE During your visit today, we recorded the following information about you: Temperature Pulse Blood pressure Weight 98.1 degrees 57/minute 136/81 147.4 kg Height 1.829 m Faith Moore APRN.RN ELIGIBILITY 06/11/2025 9:42 AM Signed Hematology Consultation Date: 12/12/2024 Referring Physician: Anya [...] anticoagulation duration. He is currently residing at halfway facility and is here in a wheelchair. [...] TV on all night. No other complaints. Interval History He presents for follow up and consideration for discontinuation of eliquis. He is taking eliquis twice daily without difficulty. He denies bleeding or bruising. He denies dark or bloody bowel movements. He is still in rehab and in a wheelchair. He is hoping to go him in about a month. He has not had his watchman placed yet. He has an appointment with a field crops harvest machine operator in [place] due to transport issues to [place]. He is otherwise feeling well. Discussed staying on Eliquis indefinitely. He is agreeable. ACTIVE PROBLEM LIST Essential Hypertension Benign Prostatic Hyperplasia With Lower Urinary Tract Symptoms Vitamin D Deficiency Bradycardia Systolic Murmur Dyslipidemia Harjeet (Obstructive Sleep Apnea) Obesity, Class III, BMI >= 40 E66.01 Closed Fracture of Shaft of Left Ulna With Routine Healing Closed Fracture of Right Tibial Plateau Frequency of Urination Nocturia Knee Instability, Unspecified Laterality General Weakness Physical Deconditioning Liver Hemangioma Weakness Parkinson Disease (Hcc) Bilateral Pneumonia Leukocytosis Jasmyn (Acute Kidney Injury) Acute Encephalopathy Parkinsonian Features Bilateral Upper Lobe Community Acquired Pneumonia Pneumonia Due to Influenza A Virus Subdural Hematoma (Hcc) Fall Sah (Subarachnoid Hemorrhage) (Hcc) Brain Mass Intracranial Meningioma (Hcc) Failure to Thrive in Adult H/O: Cva (Cerebrovascular Accident) Morbid (Severe) Obesity Due to Excess Calories (Hcc) Obesity, Class II, Bmi 35-39.9 Multiple Subsegmental Pulmonary Emboli Without Acute Cor Pulmonale (Hcc) Pulmonary Emboli (Hcc) Pulmonary Embolism Without Acute Cor Pulmonale, Unspecified Chronicity, Unspecified Pulmonary Embolism Type (Hcc) History of Intracranial Hemorrhage 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 Drug use: No Review of Systems Constitutional: Negative. HENT: Negative. Respiratory: Negative. Cardiovascular: Negative. Gastrointestinal: Negative. Musculoskeletal: Negative. Skin: Negative. Neurological: Negative. Hematological: Negative. Psychiatric/Behavior al (more content not included)... Normal [facility] Basic Metabolic Profile (BMP )on 05-21-2025 BUN/CRE 18.3 RATIO Normal 10-20 [facility] Comment on above: Order Comment: 112.1 Performed By: #### L 500.2500, L100.0500 #### [facility] [address] [place], [address] Calcium [Mass/Vol] 8.9 mg/dL Normal 7.6-11.0 [facility] Comment on above: Order Comment: 112.1 Performed By: #### L 500.2500, L100.0500 #### [facility] [address] [place], [address] Chloride [Moles/Vol] 106 mmol/L Normal 98-108 [facility] Comment on above: Order Comment: 112.1 Performed By: #### L 500.2500, L100.0500 #### [facility] [address] [place], [address] CO2 [Moles/Vol] 24.7 mmol/L Normal 21.0-32.0 [facility] Comment on above: Order Comment: 112.1 Performed By: #### L 500.2500, L100.0500 #### [facility] [address] [place], [address] Creatinine [Mass/Vol] 0.89 mg/dL Normal 0.70-1.20 [facility] Comment on above: Order Comment: 112.1 Performed By: #### L 500.2500, L100.0500 #### [facility] [address] [place], [address] GAP 11 Normal 5-15 [facility] Comment on above: Order Comment: 112.1 Performed By: #### L 500.2500, L100.0500 #### [facility] [address] [place], [address] GFR/1.73 sq M.predicted among non-blacks MDRD (S/P/Bld) [Vol rate/Area] 95 mL/min/{1.73_m2} Normal >60 [facility] Comment on above: Order Comment: 112.1 Result Comment: mL/m in/1.73m2 CKD-EPI Creatinine Equation (2020) Performed By: #### L 500.2500, L100.0500 #### [facility] [address] [place], [address] Glucose [Mass/Vol] 88 mg/dL Normal 70-99 [facility] Comment on above: Order Comment: 112.1 Performed By: #### L 500.2500, L100.0500 #### [facility] [address] [place], [address] Potassium [Moles/Vol] 3.9 mmol/L Normal 3.3-5.1 [facility] Comment on above: Order Comment: 112.1 Performed By: #### L 500.2500, L100.0500 #### [facility] [address] [place], [address] Sodium [Moles/Vol] 142 mmol/L Normal 133-145 [facility] Comment on above: Order Comment: 112.1 Performed By: #### L 500.2500, L100.0500 #### [facility] [address] [place], [address] Urea nitrogen [Mass/Vol] 16 mg/dL Normal 4-19 [facility] Comment on above: Order Comment: 112.1 Performed By: #### L 500.2500, L100.0500 #### [facility] [address] [place], [address] CBC-Complete Blood Cnt No Di ffon 05-21-2025 Erythrocyte distribution width (RBC) [Ratio] 13.5 % Normal 11.6-14.6 [facility] Comment on above: Order Comment: 112.1 Performed By: #### L 500.2500, L100.0500 #### [facility] [address] [place], [address] Hematocrit (Bld) [Volume fraction] 43.2 % Normal 40-54 [facility] Comment on above: Order Comment: 112.1 Performed By: #### L 500.2500, L100.0500 #### [facility] [address] [place], [address] Hemoglobin (Bld) [Mass/Vol] 14.2 g/dL Normal 13.0-16.5 [facility] Comment on above: Order Comment: 112.1 Performed By: #### L 500.2500, L100.0500 #### [facility] [address] [place], [address] MCH (RBC) [Entitic mass] 30.1 pg Normal 27.0-32.0 [facility] Comment on above: Order Comment: 112.1 Performed By: #### L 500.2500, L100.0500 #### [facility] [address] [place], [address] MCHC (RBC) [Mass/Vol] 32.9 g/dL Normal 32-36 [facility] Comment on above: Order Comment: 112.1 Performed By: #### L 500.2500, L100.0500 #### [facility] [address] [place], [address] MCV (RBC) [Entitic vol] 91.5 fL Normal 80-94 [facility] Comment on above: Order Comment: 112.1 Performed By: #### L 500.2500, L100.0500 #### [facility] [address] [place], [address] Platelet mean volume (Bld) [Entitic vol] 11.2 fL Normal 6.2-12.0 [facility] Comment on above: Order Comment: 112.1 Performed By: #### L 500.2500, L100.0500 #### [facility] [address] [place], [address] Platelets (Bld) [#/Vol] 272 10*3/uL Normal 150-450 [facility] Comment on above: Order Comment: 112.1 Performed By: #### L 500.2500, L100.0500 #### [facility] [address] [place], [address] RBC (Bld) [#/Vol] 4.72 10*6/uL Normal 4.6-6.2 [facility] Comment on above: Order Comment: 112.1 Performed By: #### L 500.2500, L100.0500 #### [facility] [address] [place], [address] RDW SD 45.5 fl High 35.1-43.9 [facility] Comment on above: Order Comment: 112.1 Performed By: #### L 500.2500, L100.0500 #### [facility] [address] [place], [address] WBC (Bld) [#/Vol] 7.9 10*3/uL Normal 4.4-11.0 [facility] Comment on above: Order Comment: 112.1 Performed By: #### L 500.2500, L100.0500 #### [facility] [address] [place], [address] ECG COMPLETEon 05-14-2025 ECG COMPLETE Ventricular Rate : 57 BPM Atrial Rate : 57 BPM P-R Interval : 178 ms QRS Duration : 128 ms Q-T Interval : 464 ms QTC Calculation(Bazett) : 451 ms Calculated P Sachse : 15 degrees Calculated R Sachse : -35 degrees Calculated T Sachse : 22 degrees SINUS BRADYCARDIA WITH PREMATURE ATRIAL COMPLEXES LEFT AXIS DEVIATION LEFT VENTRICULAR HYPERTROPHY WITH QRS WIDENING ( R in aVL , [place] product ) NONSPECIFIC T WAVE ABNORMALITY ABNORMAL ECG WHEN COMPARED WITH ECG OF 24-Sep-2024 00:26, PREMATURE ATRIAL COMPLEXES ARE NOW PRESENT VENT. RATE HAS DECREASED by 31 bpm INCOMPLETE RIGHT BUNDLE BRANCH BLOCK IS NO LONGER PRESENT CRITERIA FOR SEPTAL INFARCT ARE NO LONGER PRESENT Confirmed by MD LM, AGUSTÍN ([id number]) on 05/15/2025 5:12:20 PM NAME : ALFONZO SIMON PID : [id number] : 1960 Gender : Male Race : ORD : [id number] Procedure Date : May 14 2025 13:49:51 Edit Date : May 15 2025 17:12:23 Diagnosis: SINUS BRADYCARDIA WITH PREMATURE ATRIAL COMPLEXES LEFT AXIS DEVIATION LEFT VENTRICULAR HYPERTROPHY WITH QRS WIDENING ( R in aVL , [place] product ) NONSPECIFIC T WAVE ABNORMALITY ABNORMAL ECG WHEN COMPARED WITH ECG OF 24-Sep-2024 00:26, PREMATURE ATRIAL COMPLEXES ARE NOW PRESENT VENT. RATE HAS DECREASED by 31 bpm INCOMPLETE RIGHT BUNDLE BRANCH BLOCK IS NO LONGER PRESENT CRITERIA FOR SEPTAL INFARCT ARE NO LONGER PRESENT Confirmed by MD NIELSON VINAY ([id number]) on 05/15/2025 5:12:20 PM Test Reason : HCS Location : 198 : [facility] Overread By : MD NIELSNO VINAY Edited By : MD NIELSON VINAY Referred By : CANDELARIO SCHWARTZ Acquired by : FARRUKH COLEMAN [facility] 05-08-2025 CNPN Telephone (AGCARDPOB) ALFONZO SIMON ([id number]) 1960 M Date Time Provider Department 05/08/25 ORLY VALENCIA AGCARDPOB During your visit today, we recorded the following information about you: Rosibel Esquivel 05/08/2025 10:55 AM Signed Spoke to the patient stating they are wanting a DEBBI from [facility] to [facility]. Scheduled appt for EP confirmed date, time and location. Rosibel Esquivel Allergies As of Date: 05/08/2025 (No Known Allergies) Date Reviewed: 02/22/2025 Reviewed by: Kenyetta Alan MA - Fully Assessed Prescriptions as of 05/08/2025 - magnesium hydroxide 2,400 mg/10 mL susp Take 10 mL by mouth once daily as needed. - polyethylene glycol 3350 4 gram pwpk Take by mouth. - magnesium, aluminum hydroxide (ALUMINUM-MAGNESIUM HYDROXIDE ORAL) Take by mouth. - hydrALAZINE (APRESOLINE) 10 mg tablet - senna (SENOKOT) 8.6 mg tab Take 8.6 mg by mouth two times a day. - ELIQUIS 5 mg tab(s) - buPROPion XL (WELLBUTRIN XL) 300 mg 24 hr tablet Take 1 tablet by mouth once daily. - Bisacodyl (DULCOLAX) 5 mg tab Take 5 mg by mouth as needed for constipation. - miconazole 2 % powder Apply 1 application to affected area two times a day. - tamsulosin (FLOMAX) 0.4 mg TAKE 1 CAPSULE AT BEDTIME - acetaminophen (TYLENOL) 500 mg tablet Take 2 tablets by mouth every 8 hours as needed for pain. - amLODIPine (NORVASC) 5 mg tablet Take 2 tablets by mouth once daily. - lisinopril (ZESTRIL) 40 mg tablet Take 1 tablet by mouth once daily. - atorvastatin (LIPITOR) 20 mg tablet Take 1 tablet by mouth once daily. Problem List As Of Date 05/08/2025 Noted Resolved Essential hypertension [I10] 05/25/2016 Benign prostatic hyperplasia with lower urinary*05/25/2016 Vitamin D deficiency [E55.9] 05/25/2016 Bradycardia [R00.1] 05/25/2016 Systolic murmur [R01.1] 05/25/2016 Bilateral lower extremity edema [R60.0] 05/25/2016 12/25/2020 Dyslipidemia [E78.5] 02/10/2018 HARJEET (obstructive sleep apnea) [G47.33] 02/10/2018 Obesity, Class III, BMI >= 40 E66.01 [E66.813] 02/13/2018 Obesity, Class II, BMI 35-39.9 [E66.812] [...] Traumatic subdural hematoma with loss of consci*05/09/2024 09/18/2024 Intracranial meningioma (HCC) [D32.0] 05/09/2024 Failure to thrive in adult [R62.7] 06/04/2024 H/O: CVA (cerebrovascular accident) [Z86.73] 06/07/2024 Morbid (severe) obesity due to excess calories *06/24/2020 Recurrent major depressive disorder, in partial*06/24/2020 09/18/2024 Obesity, Class II, BMI 35-39.9 [E66.812] 09/18/2024 Multiple subsegmental pulmonary emboli without *09/24/2024 Pulmonary emboli (HCC) [I26.99] 09/24/2024 Pulmonary embolism without acute cor pulmonale,* History of intracranial hemorrhage [Z86.79] 09/24/2024 Traumatic subdural hematoma with loss of consci*10/13/2024 Encounter Status:Closed by ROSIBEL ESQUIVEL on 05/08/25 [facility] Anion gap in Serum or Plasma Ordered By: Violette Abdi on 03-20-2025 Anion gap [Moles/Vol] 10 mmol/L 5-15 [facility] Automated blood erythrocyte countOrdered By: Violette Abdi on 03-20-2025 RBC (Bld) [#/Vol] 4.52 10*6/uL Low 4.6-6.2 [facility] Comment on above: Order Comment: 112.1 Performed By: #### L 100.0500, L500.2500 #### [facility] [address] [place], [address] Automated blood hematocrit ( percentage)Ordered By: Violette Abdi on 03-20-2025 Hematocrit (Bld) [Volume fraction] 41.4 % Normal 40-54 [facility] Comment on above: Order Comment: 112.1 Performed By: #### L 100.0500, L500.2500 #### [facility] [address] [place], [address] BUN/creatinine ratioOrdered By: Violette Abdi on 03-20-2025 Urea nitrogen/Creatinine [Mass ratio] 24.9 mg/mg High 10-20 [facility] Basic Metabolic Profile (BMP )on 03-20-2025 BUN/CRE 24.9 RATIO High 1020 [facility] Comment on above: Order Comment: 112.1 Performed By: #### L 100.0500, L500.2500 #### [facility] [address] [place], [address] Calcium [Mass/Vol] 8.7 mg/dL Normal 7.6-11.0 [facility] Comment on above: Order Comment: 112.1 Performed By: #### L 100.0500, L500.2500 #### [facility] [address] [place], [address] Chloride [Moles/Vol] 110 mmol/L High 98-108 [facility] Comment on above: Order Comment: 112.1 Performed By: #### L 100.0500, L500.2500 #### [facility] [address] [place], [address] CO2 [Moles/Vol] 22.8 mmol/L Normal 21.0-32.0 [facility] Comment on above: Order Comment: 112.1 Performed By: #### L 100.0500, L500.2500 #### [facility] [address] [place], [address] Creatinine [Mass/Vol] 0.77 mg/dL Normal 0.70-1.20 [facility] Comment on above: Order Comment: 112.1 Performed By: #### L 100.0500, L500.2500 #### [facility] [address] [place], [address] GAP 10 Normal 5-15 [facility] Comment on above: Order Comment: 112.1 Performed By: #### L 100.0500, L500.2500 #### [facility] [address] [place], [address] GFR/1.73 sq M.predicted among non-blacks MDRD (S/P/Bld) [Vol rate/Area] 99 mL/min/{1.73_m2} Normal >60 [facility] Comment on above: Order Comment: 112.1 Result Comment: mL/m in/1.73m2 CKD-EPI Creatinine Equation (2020) Performed By: #### L 100.0500, L500.2500 #### [facility] [address] [place], [address] Glucose [Mass/Vol] 82 mg/dL Normal 70-99 [facility] Comment on above: Order Comment: 112.1 Performed By: #### L 100.0500, L500.2500 #### [facility] [address] [place], [address] Potassium [Moles/Vol] 4.1 mmol/L Normal 3.3-5.1 [facility] Comment on above: Order Comment: 112.1 Performed By: #### L 100.0500, L500.2500 #### [facility] [address] [place], [address] Sodium [Moles/Vol] 143 mmol/L Normal 133-145 [facility] Comment on above: Order Comment: 112.1 Performed By: #### L 100.0500, L500.2500 #### [facility] [address] [place], [address] Urea nitrogen [Mass/Vol] 19 mg/dL Normal 4-19 [facility] Comment on above: Order Comment: 112.1 Performed By: #### L 100.0500, L500.2500 #### [facility] [address] [place], [address] CBC-Complete Blood Cnt No Di ffon 03-20-2025 RDW SD 47.0 fl High 35.1-43.9 [facility] Comment on above: Order Comment: 112.1 Performed By: #### L 100.0500, L500.2500 #### [facility] [address] [place], [address] Carbon dioxide, total [Moles /volume] in Central venous bloodOrdered By: Violette Abdi on 03-20-2025 CO2 [Moles/Vol] 22.8 mmol/L 21.0-32.0 [facility] Chloride assayOrdered By: Benji Crespo on 03-20-2025 Chloride [Moles/Vol] 110 mmol/L High 98-108 [facility] Erythrocyte distribution wid th ratioOrdered By: Violette Abdi on 03-20-2025 Erythrocyte distribution width (RBC) [Ratio] 13.8 % Normal 11.6-14.6 [facility] Comment on above: Order Comment: 112.1 Performed By: #### L 100.0500, L500.2500 #### [facility] [address] [place], [address] Erythrocyte distribution wid th standard deviationOrdered By: Violette Abdi on 03-20-2025 Erythrocyte distribution width (RBC) [Ratio] 47.0 fl High 35.1-43.9 [facility] Glomerular filtration rate ( GFR) estimation/1.73 sq m using serum, plasma, or whole bOrdered By: Violette Abdi on 03-20-2025 GFR/1.73 sq M.predicted among non-blacks MDRD (S/P/Bld) [Vol rate/Area] 99 mL/min/{1.73_m2} >60 [facility] Comment on above: mL/min/1.73m2 CKD-EP I Creatinine Equation (2020) Hemoglobin measurementOrdere d By: Violette Abdi on 03-20-2025 Hemoglobin (Bld) [Mass/Vol] 13.7 g/dL Normal 13.0-16.5 [facility] Comment on above: Order Comment: 112.1 Performed By: #### L 100.0500, L500.2500 #### [facility] [address] [place], [address] MCV (mean corpuscular volume ) determinationOrdered By: Violette Abdi on 03-20-2025 MCV (RBC) [Entitic vol] 91.6 fL Normal 80-94 [facility] Comment on above: Order Comment: 112.1 Performed By: #### L 100.0500, L500.2500 #### [facility] [address] [place], [address] Mean corpuscular hemoglobin (MCH) determinationOrdered By: Violette Abdi on 03-20-2025 MCH (RBC) [Entitic mass] 30.3 pg Normal 27.0-32.0 [facility] Comment on above: Order Comment: 112.1 Performed By: #### L 100.0500, L500.2500 #### [facility] [address] [place], [address] Mean corpuscular hemoglobin concentration (MCHC) determinationOrdered By: Violette Abdi on 03-20-2025 MCHC (RBC) [Mass/Vol] 33.1 g/dL Normal 32-36 [facility] Comment on above: Order Comment: 112.1 Performed By: #### L 100.0500, L500.2500 #### [facility] [address] [place], [address] Mean platelet volume determi nationOrdered By: Violette Abdi on 03-20-2025 Platelet mean volume (Bld) [Entitic vol] 11.3 fL Normal 6.2-12.0 [facility] Comment on above: Order Comment: 112.1 Performed By: #### L 100.0500, L500.2500 #### [facility] [address] [place], [address] Platelet countOrdered By: Benji Crespo on 03-20-2025 Platelets (Bld) [#/Vol] 264 10*3/uL Normal 150-450 [facility] Comment on above: Order Comment: 112.1 Performed By: #### L 100.0500, L500.2500 #### [facility] [address] [place], [address] Potassium measurement (mass/ volume)Ordered By: Violette Abdi on 03-20-2025 Potassium (Unsp spec) [Mass/Vol] 4.1 mmol/L 3.3-5.1 [facility] Serum creatinine measurement (mass/volume)Ordered By: Violette Abdi on 03-20-2025 Creatinine [Mass/Vol] 0.77 mg/dL 0.70-1.20 [facility] Serum glucose measurement (m ass/volume)Ordered By: Violette Abdi on 03-20-2025 Glucose [Mass/Vol] 82 mg/dL 70-99 [facility] Serum or plasma calcium gael urement (mass/volume)Ordered By: Viloette Abdi on 03-20-2025 Calcium [Mass/Vol] 8.7 mg/dL 7.6-11.0 [facility] Serum or plasma urea nitroge n measurement (mass/volume)Ordered By: Violette Abdi on 03-20-2025 Urea nitrogen [Mass/Vol] 19 mg/dL 4-19 [facility] Sodium levelOrdered By: Ramon Abdi on 03-20-2025 Sodium [Moles/Vol] 143 mmol/L 133-145 [facility] White blood cell (WBC) count Ordered By: Violette Abdi on 03-20-2025 WBC (Bld) [#/Vol] 7.1 10*3/uL Normal 4.4-11.0 [facility] Comment on above: Order Comment: 112.1 Performed By: #### L 100.0500, L500.2500 #### [facility] [address] [place], [address] CNOVon 02-22-2025 CNOV Office Visit (CVAKPO) ALFONZO SIMON ([id number]) 1960 M Date Time Provider Department 02/22/25 1:30 PM ANYA HUANG During your visit today, we recorded the following information about you: Pulse Blood pressure Weight Height 63/minute 150/70 130.6 kg 1.829 m Anya Huang APRN.RN ELIGIBILITY 02/22/2025 4:48 PM Signed [facility] Established Visit Consultation is requested by: No referring provider defined for this encounter. PCP: Karthik Holliday [address] [place] [address] CEREBROVASCULAR HISTORY Alfonzo Simon is a 64 year old left-handed male presenting for hospital discharge follow up. Admitted to [facility] 04/15-04/25/24. From discharge summary Mr. Alfonzo Simon was directly admitted to [facility] on 04/15/2024 for treatment of injuries [...] be a meningioma on 04/16/[address] Patel. On the day of his surgery, he [...] outpatient follow-up with his treating neurosurgery (Dr. Patel) two weeks post-operatively for re-evaluation and craniotomy [...] discharge. Mr. Simon would be discharged to [facility] rehab in stable condition on 04/25/2024. He would require outpatient follow-up care with his treating neurosurgeon, stroke neurology and urology as well as his primary care provider. Reason for Visit: subdural hematoma, subarachnoid hemorrhage and ischemic stroke Date of Last Event: 04/15/2024 Antiplatelets/Antico agulants: Apixaban Statins: Atorvastatin Residual Deficits: Motor weakness Current PT/OT/ST: Physical therapy at home, Occupational therapy at home and Speech therapy at home Current Living Situation: Still in a rehab facility Current use of a mobility aid for walking/getting around: Walker Office Visit 05/30/24 -presents for hospital discharge follow up -denies any new symptoms or clinical events -living at [facility] -prior to this lived at home with [...] any new symptoms or clinical events -at [facility] SNF - thinks will have to leave soon because of insurance, would be sent home with home care (more content not included)... [facility] Anion gap in Serum or Plasma Ordered By: Violette Abdi on 02-05-2025 Anion gap [Moles/Vol] 11 mmol/L 03-22 [facility] BUN/creatinine ratioOrdered By: Violette Abdi on 02-05-2025 Urea nitrogen/Creatinine [Mass ratio] 17.6 mg/mg 08-27 [facility] Basic Metabolic Profile (BMP )on 02-05-2025 BUN/CRE 17.6 RATIO Normal 08-27 [facility] Comment on above: Order Comment: 112-1 Performed By: #### L 100.0500, L500.2500 #### [facility] [address] [place], [place], [address] Calcium [Mass/Vol] 8.7 mg/dL Normal 7.6-11.0 [facility] Comment on above: Order Comment: 112-1 Performed By: #### L 100.0500, L500.2500 #### [facility] [address] [place], [address] Chloride [Moles/Vol] 108 mmol/L Normal 98-108 [facility] Comment on above: Order Comment: 112-1 Performed By: #### L 100.0500, L500.2500 #### [facility] [address] [place], [address] CO2 [Moles/Vol] 21.8 mmol/L Normal 21.0-32.0 [facility] Comment on above: Order Comment: 112-1 Performed By: #### L 100.0500, L500.2500 #### [facility] [address] [place], [address] Creatinine [Mass/Vol] 0.80 mg/dL Normal 0.70-1.20 [facility] Comment on above: Order Comment: 112-1 Performed By: #### L 100.0500, L500.2500 #### [facility] [address] [place], [address] GAP 11 Normal 5-15 [facility] Comment on above: Order Comment: 112-1 Performed By: #### L 100.0500, L500.2500 #### [facility] [address] [place], [address] GFR/1.73 sq M.predicted among non-blacks MDRD (S/P/Bld) [Vol rate/Area] 97 mL/min/{1.73_m2} Normal >60 [facility] Comment on above: Order Comment: 112-1 Result Comment: mL/m in/1.73m2 CKD-EPI Creatinine Equation (2020) Performed By: #### L 100.0500, L500.2500 #### [facility] [address] [place], [address] Glucose [Mass/Vol] 81 mg/dL Normal 70-99 [facility] Comment on above: Order Comment: 112-1 Performed By: #### L 100.0500, L500.2500 #### [facility] [address] [place], [address] Potassium [Moles/Vol] 4.2 mmol/L Normal 3.3-5.1 [facility] Comment on above: Order Comment: 112-1 Result Comment: Hemo lysis present, Results??could be affected. ?? Performed By: #### L 100.0500, L500.2500 #### [facility] [address] [place], [address] Sodium [Moles/Vol] 141 mmol/L Normal 133-145 [facility] Comment on above: Order Comment: 112-1 Performed By: #### L 100.0500, L500.2500 #### [facility] [address] [place], [address] Urea nitrogen [Mass/Vol] 14 mg/dL Normal 4-19 [facility] Comment on above: Order Comment: 112-1 Performed By: #### L 100.0500, L500.2500 #### [facility] [address] [place], [address] [facility] Erythrocyte distribution width (RBC) [Ratio] 13.7 % Normal 11.6-14.6 [facility] Comment on above: Order Comment: 112-1 Performed By: #### L 100.0500, L500.2500 #### [facility] [address] [place], [address] Hematocrit (Bld) [Volume fraction] 40.3 % Normal 40-54 [facility] Comment on above: Order Comment: 112-1 Performed By: #### L 100.0500, L500.2500 #### [facility] [address] [place], [address] Hemoglobin (Bld) [Mass/Vol] 13.5 g/dL Normal 13.0-16.5 [facility] Comment on above: Order Comment: 112-1 Performed By: #### L 100.0500, L500.2500 #### [facility] [address] [place], [address] MCH (RBC) [Entitic mass] 29.7 pg Normal 27.0-32.0 [facility] Comment on above: Order Comment: 112-1 Performed By: #### L 100.0500, L500.2500 #### [facility] [address] [place], [address] MCHC (RBC) [Mass/Vol] 33.5 g/dL Normal 32-36 [facility] Comment on above: Order Comment: 112-1 Performed By: #### L 100.0500, L500.2500 #### [facility] [address] [place], [address] MCV (RBC) [Entitic vol] 88.8 fL Normal 80-94 [facility] Comment on above: Order Comment: 112-1 Performed By: #### L 100.0500, L500.2500 #### [facility] [address] [place], [address] Platelet mean volume (Bld) [Entitic vol] 11.4 fL Normal 6.2-12.0 [facility] Comment on above: Order Comment: 112-1 Performed By: #### L 100.0500, L500.2500 #### [facility] [address] [place], [address] Platelets (Bld) [#/Vol] 274 10*3/uL Normal 150-450 [facility] Comment on above: Order Comment: 112-1 Performed By: #### L 100.0500, L500.2500 #### [facility] [address] [place], [address] RBC (Bld) [#/Vol] 4.54 10*6/uL Low 4.6-6.2 [facility] Comment on above: Order Comment: 112-1 Performed By: #### L 100.0500, L500.2500 #### [facility] [address] [place], [address] RDW SD 44.7 fl High 35.1-43.9 [facility] Comment on above: Order Comment: 112-1 Performed By: #### L 100.0500, L500.2500 #### [facility] [address] [place], [address] WBC (Bld) [#/Vol] 7.4 10*3/uL Normal 4.4-11.0 [facility] Comment on above: Order Comment: 112-1 Performed By: #### L 100.0500, L500.2500 #### [facility] [address] [place], [address] Carbon dioxide, total [Moles /volume] in Central venous bloodOrdered By: Violette Abdi on 02-05-2025 CO2 [Moles/Vol] 21.8 mmol/L 21.0-32.0 [facility] Chloride assayOrdered By: Benji Crespo on 02-05-2025 Chloride [Moles/Vol] 108 mmol/L 98-108 [facility] Erythrocyte distribution wid th ratioOrdered By: Violette Abdi on 02-05-2025 Erythrocyte distribution width (RBC) [Ratio] 13.7 % 11.6-14.6 [facility] Erythrocyte distribution wid th standard deviationOrdered By: Violette Abdi on 02-05-2025 Erythrocyte distribution width (RBC) [Entitic vol] 44.7 fL High 35.1-43.9 [facility] Erythrocyte distribution width (RBC) [Ratio] 44.7 fl High 35.1-43.9 [facility] GFR/1.73 sq M.predicted jasen g non-blacks MDRD (S/P/Bld) [Vol rate/Area]Ordered By: Violette Abdi on 02-05-2025 Estimated GFR (MDRD) Non-Af Amer 97 >60 [facility] Comment on above: mL/min/1.73m2 CKD-EP I Creatinine Equation (2020) Glomerular filtration rate ( GFR) estimation/1.73 sq m using serum, plasma, or whole bOrdered By: Violette Abdi on 02-05-2025 GFR/1.73 sq M.predicted among non-blacks MDRD (S/P/Bld) [Vol rate/Area] 97 mL/min/{1.73_m2} >60 [facility] Comment on above: mL/min/1.73m2 CKD-EP I Creatinine Equation (2020) Hematocrit Auto (Bld) [Volum e fraction]Ordered By: Violette Abdi on 02-05-2025 Hematocrit (Bld) [Volume fraction] 40.3 % 40-54 [facility] Hemoglobin measurementOrdere d By: Violette Abdi on 02-05-2025 Hemoglobin (Bld) [Mass/Vol] 13.5 g/dL 13.0-16.5 [facility] MCV (mean corpuscular volume ) determinationOrdered By: Violette Abdi on 02-05-2025 MCV (RBC) [Entitic vol] 88.8 fL 80-94 [facility] Mean corpuscular hemoglobin (MCH) determinationOrdered By: Violette Abdi on 02-05-2025 MCH (RBC) [Entitic mass] 29.7 pg 27.0-32.0 [facility] Mean corpuscular hemoglobin concentration (MCHC) determinationOrdered By: Violette Abdi on 02-05-2025 MCHC (RBC) [Mass/Vol] 33.5 g/dL 32-36 [facility] Mean platelet volume determi nationOrdered By: Violette Abdi on 02-05-2025 Platelet mean volume (Bld) [Entitic vol] 11.4 fL 6.2-12.0 [facility] Platelet countOrdered By: Benji Crespo on 02-05-2025 Platelets (Bld) [#/Vol] 274 10*3/uL 150-450 [facility] Potassium (Unsp spec) [Mass/ Vol]Ordered By: Violette Abdi on 02-05-2025 Potassium [Moles/Vol] 4.2 mmol/L 3.3-5.1 [facility] Comment on above: Hemolysis present, R esults could be affected. Potassium measurement (mass/ volume)Ordered By: Violette Abdi on 02-05-2025 Potassium (Unsp spec) [Mass/Vol] 4.2 mmol/L 3.3-5.1 [facility] Comment on above: Hemolysis present, R esults could be affected. RBC Auto (Bld) [#/Vol]Ordere d By: Violette Abdi on 02-05-2025 RBC (Bld) [#/Vol] 4.54 10*6/uL Low 4.6-6.2 [facility] Serum creatinine measurement (mass/volume)Ordered By: Violette Abdi on 02-05-2025 Creatinine [Mass/Vol] 0.80 mg/dL 0.70-1.20 [facility] Serum glucose measurement (m ass/volume)Ordered By: Violette Abdi on 02-05-2025 Glucose [Mass/Vol] 81 mg/dL 70-99 [facility] Serum or plasma calcium gael urement (mass/volume)Ordered By: Violette Abdi on 02-05-2025 Calcium [Mass/Vol] 8.7 mg/dL 7.6-11.0 [facility] Serum or plasma urea nitroge n measurement (mass/volume)Ordered By: Violette Abdi on 02-05-2025 Urea nitrogen [Mass/Vol] 14 mg/dL 4-19 [facility] Sodium levelOrdered By: Ramon Abdi on 02-05-2025 Sodium [Moles/Vol] 141 mmol/L 133-145 [facility] White blood cell (WBC) count Ordered By: Violette Abdi on 02-05-2025 WBC (Bld) [#/Vol] 7.4 10*3/uL 4.4-11.0 [facility] CNOVon 01-19-2025 CNOV Office Visit (NEAGCLM) ALFONZO SIMON ([id number]) 1960 M Date Time Provider Department 01/19/25 10:30 AM LEONARD PATEL NEAGCLM During your visit today, we recorded the following information about you: Pulse Blood pressure Weight Height 62/minute 144/82 130.6 kg 1.829 m Leonard Patel MD 01/19/2025 10:31 AM Signed NEUROSURGERY FOLLOW UP OFFICE NOTE Dr. Leonard Patel MD, FACS Date of visit: January 19, 2025 Patient Name: Mr.Kevin Myrna Simon Date of : 1960 Current Age: [age] year old Sex: male MRN/E# [id number] Last Office Visit: 10/27/2024 CHIEF COMPLAINT: Patient presents with: Established Patient SUBJECTIVE: The patient presents as a follow-up with imaging (MRI B) for evaluation. This is a 64 year old male with a PMHx of BPH, HTN, morbid obesity, parkinsonism and sleep apnea who was seen for consult at [facility] on 04/16/24 after transfer from [place] ED for a SAH. Per patients , [...] wheelchair as he was still residing at [facility] in [place]. He reported that he was doing well . He denied any headache, visual changes, speech deficits, seizure activity, new motor or sensory deficits. CT was reviewed and showed almost complete resolution of the fluid with a very small area of residual. 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 Otherwise he should return in January 2025 with an MRI be for evaluation of any residual or recurrent tumor. Today he states he is overall doing better. He continues to reside in a [facility] [address] in [place]. He continues to work with PT. He [...] excision of tumor on 04/16/[address] Patel. FINAL DIAGNOSIS A. Brain tumor, excision: - [...] Current Outpatient Medications Medication Sig Dispense Refill hydrALAZ (more content not included)... Normal [facility] MRI BRAIN WO/W IVCONon 01-16 MRI BRAIN WO/W IVCON * * *Final Report* * * DATE OF EXAM: Jan 16 2025 10:47AM [facility] 0295 - MRI BRAIN WO/W IVCON / PROCEDURE REASON: multiple diagnoses * * * * Physician Interpretation * * * * EXAMINATION: MRI BRAIN WO/W IVCON CLINICAL HISTORY: Intracranial meningioma. Subarachnoid hemorrhage and right-sided subdural hemorrhage TECHNIQUE: Routine brain MRI protocol without and with contrast including diffusion images. MQ: [id number] Contrast: 10 mL Elucirem IV COMPARISON: CT dated 10/27/2024 and MRI dated 10/02/2024 RESULT: Acute Change: There is no evidence of restricted diffusion to suggest an acute infarct. Hemorrhage: There is no evidence of acute hemorrhage. Multiple punctate foci of susceptibility artifact involving both cerebral hemispheres as well as the basal ganglia bilaterally and both cerebellar hemispheres. Susceptibility artifact along the right central sulcus at site of previous hemorrhage. Mass Lesion/ Mass Effect: Changes from prior right frontal craniotomy. No evidence of recurrent meningioma. Mild dural thickening noted deep to the craniotomy site. There continues to be a thin fluid collection overlying the craniotomy flap measuring 6 mm in thickness, significantly improved from previous studies. Chronic Change: Scattered patchy and confluent areas of increased T2 and FLAIR signal are present in the supratentorial white matter which is nonspecific but likely represents chronic microvascular ischemia. Chronic infarct in the right frontoparietal high convexity. Chronic lacunar infarcts in the basal ganglia bilaterally. Small chronic right cerebellar infarct and small chronic lacunar infarcts in the romi. These are all stable. Parenchyma: There is mild generalized parenchymal volume loss. The brain parenchyma is otherwise within normal limits of signal intensity and morphology. Ventricles: Ventriculomegaly corresponds to the degree of parenchymal volume loss. Skull Base: Hypothalamic and pituitary region are grossly normal. Craniocervical junction is normal. No significant marrow replacement process. Vasculature: Major intracranial arterial structures, and dural venous sinuses show typical flow void, suggesting patency by spin echo criteria. Other: The visualized paranasal sinuses and mastoid air cells are clear. The orbits and extracranial soft tissues are unremarkable. IMPRESSION: 1. No evidence of recurrent meningioma. [...] bilateral basal ganglia 4. Extensive cerebral microhemorrhages Acid Operator: CRYS Transcribe Date/Time: Jan 17 2025 4:05P Dictated by : CHELLY ODEN MD This examination was interpreted and the report reviewed and electronically signed by: CHELLY ODEN MD on Jan 17 2025 4:16PM EST [id number] CN [facility] BUN/creatinine ratioOrdered By: Violette Abdi on 01-08-2025 Urea nitrogen/Creatinine [Mass ratio] 19.3 mg/mg 10-20 [facility] Basic Metabolic Profile (BMP )on 01-08-2025 Anion gap [Moles/Vol] 11 mmol/L Normal 5-15 [facility] Comment on above: Order Comment: 112.1 Performed By: #### L 100.0500, L500.2500 #### [facility] [address] [facility] [place], [address] BUN/CRE 19.3 RATIO Normal 10-20 [facility] Comment on above: Order Comment: 112.1 Performed By: #### L 100.0500, L500.2500 #### [facility] [address] [place], [address] Calcium [Mass/Vol] 9.0 mg/dL Normal 7.6-11.0 [facility] Comment on above: Order Comment: 112.1 Performed By: #### L 100.0500, L500.2500 #### [facility] [address] [place], [address] Chloride [Moles/Vol] 106 mmol/L Normal 96-108 [facility] Comment on above: Order Comment: 112.1 Performed By: #### L 100.0500, L500.2500 #### [facility] [address] [place], [address] CO2 [Moles/Vol] 23.9 mmol/L Normal 22.0-29.0 [facility] Comment on above: Order Comment: 112.1 Performed By: #### L 100.0500, L500.2500 #### [facility] [address] [place], [address] Creatinine [Mass/Vol] 0.82 mg/dL Normal 0.70-1.20 [facility] Comment on above: Order Comment: 112.1 Performed By: #### L 100.0500, L500.2500 #### [facility] [address] [place], [address] GFR/1.73 sq M.predicted among non-blacks MDRD (S/P/Bld) [Vol rate/Area] 97 mL/min/{1.73_m2} Normal >60 [facility] Comment on above: Order Comment: 112.1 Result Comment: mL/m in/1.73m2 CKD-EPI Creatinine Equation (2020) Performed By: #### L 100.0500, L500.2500 #### [facility] [address] [place], [address] Glucose [Mass/Vol] 77 mg/dL Normal 70-99 [facility] Comment on above: Order Comment: 112.1 Performed By: #### L 100.0500, L500.2500 #### [facility] [address] [place], [address] Potassium [Moles/Vol] 4.2 mmol/L Normal 3.3-5.1 [facility] Comment on above: Order Comment: 112.1 Result Comment: Hemo lysis present, Results??could be affected. ?? Performed By: #### L 100.0500, L500.2500 #### [facility] [address] [place], [address] Sodium [Moles/Vol] 141 mmol/L Normal 133-145 [facility] Comment on above: Order Comment: 112.1 Performed By: #### L 100.0500, L500.2500 #### [facility] [address] [place], [address] Urea nitrogen [Mass/Vol] 16 mg/dL Normal 4-19 [facility] Comment on above: Order Comment: 112.1 Performed By: #### L 100.0500, L500.2500 #### [facility] [address] [place], [address] CBC-Complete Blood Cnt No Di ffon 01-08-2025 Erythrocyte distribution width (RBC) [Ratio] 14.0 % Normal 11.6-14.6 [facility] Comment on above: Order Comment: 112.1 Performed By: #### L 100.0500, L500.2500 #### [facility] [address] [place], [address] Hematocrit (Bld) [Volume fraction] 44.2 % Normal 40-54 [facility] Comment on above: Order Comment: 112.1 Performed By: #### L 100.0500, L500.2500 #### [facility] [address] [place], [address] Hemoglobin (Bld) [Mass/Vol] 14.4 g/dL Normal 13.0-16.5 [facility] Comment on above: Order Comment: 112.1 Performed By: #### L 100.0500, L500.2500 #### [facility] [address] [place], [address] MCH (RBC) [Entitic mass] 29.3 pg Normal 27.0-32.0 [facility] Comment on above: Order Comment: 112.1 Performed By: #### L 100.0500, L500.2500 #### [facility] [address] [place], [address] MCHC (RBC) [Mass/Vol] 32.6 g/dL Normal 32-36 [facility] Comment on above: Order Comment: 112.1 Performed By: #### L 100.0500, L500.2500 #### [facility] [address] [place], [address] MCV (RBC) [Entitic vol] 89.8 fL Normal 80-94 [facility] Comment on above: Order Comment: 112.1 Performed By: #### L 100.0500, L500.2500 #### [facility] [address] [place], [address] Platelet mean volume (Bld) [Entitic vol] 11.6 fL Normal 6.2-12.0 [facility] Comment on above: Order Comment: 112.1 Performed By: #### L 100.0500, L500.2500 #### [facility] [address] [place], [address] Platelets (Bld) [#/Vol] 260 10*3/uL Normal 150-450 [facility] Comment on above: Order Comment: 112.1 Performed By: #### L 100.0500, L500.2500 #### [facility] [address] [place], [address] RBC (Bld) [#/Vol] 4.92 10*6/uL Normal 4.6-6.2 [facility] Comment on above: Order Comment: 112.1 Performed By: #### L 100.0500, L500.2500 #### [facility] [address] [place], [address] RDW SD 46.1 fl High 35.1-43.9 [facility] Comment on above: Order Comment: 112.1 Performed By: #### L 100.0500, L500.2500 #### [facility] [address] [place], [place], [address] WBC (Bld) [#/Vol] 7.3 10*3/uL Normal 4.4-11.0 [facility] Comment on above: Order Comment: 112.1 Performed By: #### L 100.0500, L500.2500 #### [facility] [address] [place], [place], [address] Carbon dioxide measurementOr dered By: Violette Abdi on 01-08-2025 CO2 [Moles/Vol] 23.9 mmol/L 22.0-29.0 [facility] Chloride measurementOrdered By: Violette Abdi on 01-08-2025 Chloride [Moles/Vol] 106 mmol/L 96-108 [facility] Erythrocyte distribution wid th ratioOrdered By: Violette Abdi on 01-08-2025 Erythrocyte distribution width (RBC) [Ratio] 14.0 % 11.6-14.6 [facility] Erythrocyte distribution wid th standard deviationOrdered By: Violette Abdi on 01-08-2025 Erythrocyte distribution width (RBC) [Entitic vol] 46.1 fL High 35.1-43.9 [facility] Erythrocyte distribution width (RBC) [Ratio] 46.1 fl High 35.1-43.9 [facility] GFR/1.73 sq M.predicted jasen g non-blacks MDRD (S/P/Bld) [Vol rate/Area]Ordered By: Violette Abdi on 01-08-2025 Estimated GFR (MDRD) Non-Af Amer 97 >60 [facility] Comment on above: mL/min/1.73m2 CKD-EP I Creatinine Equation (2020) Glomerular filtration rate ( GFR) estimation/1.73 sq m using serum, plasma, or whole bOrdered By: Violette Abdi on 01-08-2025 GFR/1.73 sq M.predicted among non-blacks MDRD (S/P/Bld) [Vol rate/Area] 97 mL/min/{1.73_m2} >60 [facility] Comment on above: mL/min/1.73m2 CKD-EP I Creatinine Equation (2020) Hematocrit Auto (Bld) [Volum e fraction]Ordered By: Violette Abdi on 01-08-2025 Hematocrit (Bld) [Volume fraction] 44.2 % 40-54 [facility] Hemoglobin measurementOrdere d By: Violette Abdi on 01-08-2025 Hemoglobin (Bld) [Mass/Vol] 14.4 g/dL 13.0-16.5 [facility] MCV (mean corpuscular volume ) determinationOrdered By: Violette Abdi on 01-08-2025 MCV (RBC) [Entitic vol] 89.8 fL 80-94 [facility] Mean corpuscular hemoglobin (MCH) determinationOrdered By: Violette Abdi on 01-08-2025 MCH (RBC) [Entitic mass] 29.3 pg 27.0-32.0 [facility] Mean corpuscular hemoglobin concentration (MCHC) determinationOrdered By: Violette Abdi on 01-08-2025 MCHC (RBC) [Mass/Vol] 32.6 g/dL 32-36 [facility] Mean platelet volume determi nationOrdered By: Violette Abdi on 01-08-2025 Platelet mean volume (Bld) [Entitic vol] 11.6 fL 6.2-12.0 [facility] Platelet countOrdered By: Benji Crespo on 01-08-2025 Platelets (Bld) [#/Vol] 260 10*3/uL 150-450 [facility] RBC Auto (Bld) [#/Vol]Ordere d By: Violette Abdi on 01-08-2025 RBC (Bld) [#/Vol] 4.92 10*6/uL 4.6-6.2 [facility] Serum creatinine measurement (mass/volume)Ordered By: Violette Abdi on 01-08-2025 Creatinine [Mass/Vol] 0.82 mg/dL 0.70-1.20 [facility] Serum glucose measurement (m ass/volume)Ordered By: Violette Abdi on 01-08-2025 Glucose [Mass/Vol] 77 mg/dL 70-99 [facility] Serum or plasma anion gap de termination (moles/volume)Ordered By: Violette Abdi on 01-08-2025 Anion gap [Moles/Vol] 11 mmol/L 5-15 [facility] Serum or plasma calcium gael urement (mass/volume)Ordered By: Violette Abdi on 01-08-2025 Calcium [Mass/Vol] 9.0 mg/dL 7.6-11.0 [facility] Serum or plasma potassium me asurementOrdered By: Violette Abdi on 01-08-2025 Potassium [Moles/Vol] 4.2 mmol/L 3.3-5.1 [facility] Comment on above: Hemolysis present, R esults could be affected. Serum or plasma sodium measu rement (moles/volume)Ordered By: Violette Abdi on 01-08-2025 Sodium [Moles/Vol] 141 mmol/L 133-145 [facility] Serum or plasma urea nitroge n measurement (mass/volume)Ordered By: Violette Abdi on 01-08-2025 Urea nitrogen [Mass/Vol] 16 mg/dL 4-19 [facility] White blood cell (WBC) count Ordered By: Violette Abdi on 01-08-2025 WBC (Bld) [#/Vol] 7.3 10*3/uL 4.4-11.0 [facility] BETA 2 GLYCOPROTEIN, IGGon 0 12-12-2024 Beta 2 glycoprotein 1 IgG IA Qn <9 Normal <20 [facility] Comment on above: Order Comment: Gemini olson Type: BLOOD SPECIMEN Ordering Facility: [facility] Address: [address] [place] [address] Result Comment: <20 SGU Negative 20-80 SGU Low Positive >80 [facility] High Positive These results were obtained with the [employer] QUANTA Lite B2 GPI IgG INGRIS. B2 GPI IgG values obtained with different manufacturers' assay methods may not be used interchangeably. The magnitude of the reported IgG levels cannot be correlated to an endpoint titer. Performed By: #### 1 4979-9 #### [facility] CLIA [id number] [address] STATES OF [facility] BETA 2 GLYCOPROTEIN, IGMon 0 12-12-2024 Beta 2 glycoprotein 1 IgM IA Qn <9 Normal <20 [facility] Comment on above: Order Comment: Gemini olson Type: BLOOD SPECIMEN Ordering Facility: [facility] Address: [address] [place] [address] Result Comment: <20 SMU Negative 20-80 [facility]U Low Positive >80 [facility] High positive These results were obtained with the [employer] QUANTA Lite B2 GPI IgM INGRIS. B2 GPI IgM values obtained with different manufacturers' assay methods may not be used interchangeably. The magnitude of the reported IgM levels cannot be correlated to an endpoint titer. Performed By: #### 1 4979-9 #### [facility] CLIA [id number] [address] [place] [address] CARDIOLIPIN IGG ABSon 2024 Cardiolipin IgG IA Qn (S) <9.0 Normal <15.0 [facility] Comment on above: Order Comment: Specmanisha olson Type: BLOOD SPECIMEN Ordering Facility: [facility] Address: [address] [place] [address] Result Comment: <15 GPL Negative 15-20 GPL Indeterminate >20 GPL Positive The following results were obtained with the [employer] QUANTA Lite LILLIAN IgG III INGRIS. Cardiolipin IgG values obtained with the different manufacturers' assay methods may not be used interchangeably. The magnitude of the reported IgG levels cannot be correlated to an endpoint titer. Performed By: #### 1 4979-9 #### [facility] CLIA [id number] [address] [place] [address] CARDIOLIPIN IGM ABSon 2024 Cardiolipin IgM IA Qn (S) 11.1 MPL Normal <12.5 [facility] Comment on above: Order Comment: Specmanisha olson Type: BLOOD SPECIMEN Ordering Facility: [facility] Address: [address] [place] [address] Result Comment: <12. 5 MPL Negative 12.5-20 MPL Indeterminate >20 MPL Positive The following results were obtained with the [employer] QUANTA Lite LILLIAN IgM III INGRIS. Cardiolipin IgM values obtained with the different manufacturers' assay methods may not be used interchangeably. The magnitude of the reported IgM levels cannot be correlated to an endpoint titer. ??? Performed By: #### 1 4979-9 #### [facility] CLIA [id number] [address] [place] [address] CBC W Auto Differential pane l (Bld)on 12-12-2024 Basophils (Bld) [#/Vol] 0.03 10*3/uL [facility] Basophils/100 WBC (Bld) 0.5 % C [facility] Differential cell count method Nom (Bld) Auto [facility] Eosinophils (Bld) [#/Vol] 0.19 10*3/uL [facility] Eosinophils/100 WBC (Bld) 3.0 % [facility] Erythrocyte distribution width (RBC) [Ratio] 13.9 % 11.5 - 15.0 % [facility] Hematocrit (Bld) [Volume fraction] 43.5 % 39.0 - 51.0 % [facility] Hemoglobin (Bld) [Mass/Vol] 14.4 g/dL 13.0 - 17.0 g/dL [facility] Immature granulocytes (Bld) [#/Vol] [facility] Immature granulocytes/100 WBC (Bld) 0.2 % [facility] Lymphocytes (Bld) [#/Vol] 1.14 10*3/uL [facility] Lymphocytes/100 WBC (Bld) 18.0 % [facility] MCH (RBC) [Entitic mass] 30.1 pg 26.0 - 34.0 pg [facility] MCHC (RBC) [Mass/Vol] 33.1 g/dL 30.5 - 36.0 g/dL [facility] MCV (RBC) [Entitic vol] 91.0 fL 80.0 - 100.0 fL [facility] Monocytes (Bld) [#/Vol] 0.67 10*3/uL [facility] Monocytes/100 WBC (Bld) 10.6 % [facility] Neutrophils (Bld) [#/Vol] 4.30 10*3/uL [facility] Neutrophils/100 WBC (Bld) 67.7 % [facility] Nucleated RBC (Bld) [#/Vol] [facility] Nucleated RBC/100 WBC (Bld) [Ratio] 0.0 % /100 WBC [facility] Platelet mean volume (Bld) [Entitic vol] 11.2 fL 9.0 - 12.7 fL [facility] Platelets (Bld) [#/Vol] 268 10*3/uL [facility] RBC (Bld) [#/Vol] 4.78 10*6/uL 4.20 - 6.0 0 m/uL [facility] WBC (Bld) [#/Vol] 6.34 10*3/uL [facility] Basophils (Bld) [#/Vol] 0.03 10*3/uL Normal <0.11 [facility] Comment on above: Order Comment: Speci men Type: BLOOD SPECIMEN Ordering Facility: [facility] Address: [address] [place] [address] Performed By: #### 1 4979-9 #### [facility] CLIA [id number] [address] Basophils/100 WBC (Bld) 0.5 % Normal [facility] Comment on above: Order Comment: Speci men Type: BLOOD SPECIMEN Ordering Facility: [facility] Address: [address] [place] [address] Performed By: #### 1 4979-9 #### [facility] CLIA [id number] [address] OF [facility] Differential cell count method Nom (Bld) Auto Normal [facility] Comment on above: Order Comment: Speci men Type: BLOOD SPECIMEN Ordering Facility: [facility] Address: [address] [place] [address] Performed By: #### 1 4979-9 #### [facility] CLIA [id number] [address] OF [place] Eosinophils (Bld) [#/Vol] 0.19 10*3/uL Normal <0.46 [facility] Comment on above: Order Comment: Speci men Type: BLOOD SPECIMEN Ordering Facility: [facility] Address: [address] [place] [address] Performed By: #### 1 4979-9 #### [facility] CLIA [id number] [address] Eosinophils/100 WBC (Bld) 3.0 % Normal [facility] Comment on above: Order Comment: Speci men Type: BLOOD SPECIMEN Ordering Facility: [facility] Address: [address] [place] [address] Performed By: #### 1 4979-9 #### [facility] CLIA [id number] [address] Erythrocyte distribution width (RBC) [Ratio] 13.9 % Normal 11.5-15.0 [facility] Comment on above: Order Comment: Speci men Type: BLOOD SPECIMEN Ordering Facility: [facility] Address: [address] [place] [address] Performed By: #### 1 4979-9 #### [facility] CLIA [id number] [address] OF [place] Hematocrit (Bld) [Volume fraction] 43.5 % Normal 39.0-51.0 [facility] Comment on above: Order Comment: Speci men Type: BLOOD SPECIMEN Ordering Facility: [facility] Address: [address] [place] [address] Performed By: #### 1 4979-9 #### [facility] CLIA [id number] [address] [place] Hemoglobin (Bld) [Mass/Vol] 14.4 g/dL Normal 13.0-17.0 [facility] Comment on above: Order Comment: Speci men Type: BLOOD SPECIMEN Ordering Facility: [facility] Address: [address] [place] [address] Performed By: #### 1 4979-9 #### [facility] CLIA [id number] [address] OF [place] Immature granulocytes (Bld) [#/Vol] 10*3/uL Normal <0.10 [facility] Comment on above: Order Comment: Speci men Type: BLOOD SPECIMEN Ordering Facility: [facility] Address: [address] [place] [address] Performed By: #### 1 4979-9 #### [facility] CLIA [id number] [address] OF [place] Immature granulocytes/100 WBC (Bld) 0.2 % Normal [facility] Comment on above: Order Comment: Speci men Type: BLOOD SPECIMEN Ordering Facility: [facility] Address: [address] [place] [address] Performed By: #### 1 4979-9 #### [facility] CLIA [id number] [address] Lymphocytes (Bld) [#/Vol] 1.14 10*3/uL Normal 1.00-4.00 [facility] Comment on above: Order Comment: Speci men Type: BLOOD SPECIMEN Ordering Facility: [facility] Address: [address] [place] [address] Performed By: #### 1 4979-9 #### [facility] CLIA [id number] [address] Lymphocytes/100 WBC (Bld) 18.0 % Normal [facility] Comment on above: Order Comment: Speci men Type: BLOOD SPECIMEN Ordering Facility: [facility] Address: [address] [place] [address] Performed By: #### 1 4979-9 #### [facility] CLIA [id number] [address] MCH (RBC) [Entitic mass] 30.1 pg Normal 26.0-34.0 [facility] Comment on above: Order Comment: Speci men Type: BLOOD SPECIMEN Ordering Facility: [facility] Address: [address] [place] [address] Performed By: #### 1 4979-9 #### [facility] CLIA [id number] [address] MCHC (RBC) [Mass/Vol] 33.1 g/dL Normal 30.5-36.0 [facility] Comment on above: Order Comment: Speci men Type: BLOOD SPECIMEN Ordering Facility: [facility] Address: [address] [place] [address] Performed By: #### 1 4979-9 #### [facility] CLIA [id number] [address] MCV (RBC) [Entitic vol] 91.0 fL Normal 80.0-100.0 [facility] Comment on above: Order Comment: Speci men Type: BLOOD SPECIMEN Ordering Facility: [facility] Address: [address] [place] [address] Performed By: #### 1 4979-9 #### [facility] CLIA [id number] [address] OF [place] Monocytes (Bld) [#/Vol] 0.67 10*3/uL Normal <0.87 [facility] Comment on above: Order Comment: Speci men Type: BLOOD SPECIMEN Ordering Facility: [facility] Address: [address] [place] [address] Performed By: #### 1 4979-9 #### [facility] CLIA [id number] [address] Monocytes/100 WBC (Bld) 10.6 % Normal [facility] Comment on above: Order Comment: Speci men Type: BLOOD SPECIMEN Ordering Facility: [facility] Address: [address] [place] [address] Performed By: #### 1 4979-9 #### [facility] CLIA [id number] [address] Neutrophils (Bld) [#/Vol] 4.30 10*3/uL Normal 1.45-7.50 [facility] Comment on above: Order Comment: Speci men Type: BLOOD SPECIMEN Ordering Facility: [facility] Address: [address] [place] [address] Performed By: #### 1 4979-9 #### [facility] CLIA [id number] [address] [place] Neutrophils/100 WBC (Bld) 67.7 % Normal [facility] Comment on above: Order Comment: Speci men Type: BLOOD SPECIMEN Ordering Facility: [facility] Address: [address] [place] [address] Performed By: #### 1 4979-9 #### [facility] CLIA [id number] [address] OF [place] Nucleated RBC (Bld) [#/Vol] 10*3/uL Normal <0.01 [facility] Comment on above: Order Comment: Speci men Type: BLOOD SPECIMEN Ordering Facility: [facility] Address: [address] [place] [address] Performed By: #### 1 4979-9 #### [facility] CLIA [id number] [address] [place] Nucleated RBC/100 WBC (Bld) [Ratio] 0.0 /100 WBC Normal [facility] Comment on above: Order Comment: Speci men Type: BLOOD SPECIMEN Ordering Facility: [facility] Address: [address] [place] [address] Performed By: #### 1 4979-9 #### [facility] CLIA [id number] [address] [place] Platelet mean volume (Bld) [Entitic vol] 11.2 fL Normal 9.0-12.7 [facility] Comment on above: Order Comment: Speci men Type: BLOOD SPECIMEN Ordering Facility: [facility] Address: [address] [place] [address] Performed By: #### 1 4979-9 #### [facility] CLIA [id number] [address] [place] Platelets (Bld) [#/Vol] 268 10*3/uL Normal 150-400 [facility] Comment on above: Order Comment: Speci men Type: BLOOD SPECIMEN Ordering Facility: [facility] Address: [address] [place] [address] Performed By: #### 1 4979-9 #### [facility] CLIA [id number] [address] [place] RBC (Bld) [#/Vol] 4.78 10*6/uL Normal 4.20-6.00 [facility] Comment on above: Order Comment: Speci men Type: BLOOD SPECIMEN Ordering Facility: [facility] Address: [address] [place] [address] Performed By: #### 1 4979-9 #### [facility] CLIA [id number] 1 [place] [address] [place] WBC (Bld) [#/Vol] 6.34 10*3/uL Normal 3.70-11.00 [facility] Comment on above: Order Comment: Speci men Type: BLOOD SPECIMEN Ordering Facility: [facility] Address: [facility] [place] [address] Performed By: #### 1 4979-9 #### [facility] CLIA [id number] [address] [place] [id number] [facility] CNOVSPon 12-12-2024 CNOVSP Visit (SP) Office ([facility]) ALFONZO SIMON ([id number]) 1960 M Date Time Provider Department 12/12/24 10:00 AM FAITH MOORE HEMAPARNIE During your visit today, we recorded the following information about you: Temperature Pulse Blood pressure Height 97.7 degrees 68/minute 104/70 1.829 m Faith Moore APRN.RN ELIGIBILITY 12/12/2024 12:44 PM Signed Hematology Consultation Date: 12/12/2024 Referring Physician: Anya [...] anticoagulation duration. [facility] and is here in a wheelchair. [...] once daily. 90 tablet 1 No current facility-administere d medications for this visit. PE There were no vitals filed for this visit. ECOG PS: 1 Pain Intensity: 0/10 General: Age-appropriate well developed. Appears well. HEENT: Normocephalic, no sclera icterus Neck: Supple, no JVD. Chest: Clear bilaterally, no wheezes, not labored. Heart: Normal S1 and S2, no abnormal sounds Abdomen: Soft, nontender, nondistended Extremities: Bilateral LE edema Neurolog (more content not included)... Normal [facility] Cardiolipin IgA Ser IA-aCnco n 12-12-2024 Cardiolipin IgA IA Qn (S) <9.0 Normal <12.0 [facility] Comment on above: Order Comment: Speci men Type: BLOOD SPECIMEN [facility] Address: [address] [address] Result Comment: <12 APL Negative 12-20 APL Indeterminate >20 APL Positive The following results were obtained with the [employer] QUANTA Lite LILLIAN IgA III INGRIS. Cardiolipin IgA values obtained with the different manufacturers' assay methods may not be used interchangeably. The magnitude of the reported IgA levels cannot be correlated to an endpoint titer. Performed By: #### 1 4979-9 #### [facility] CLIA [id number] [address] [place] [address] [place] Comprehensive metabolic 2000 panelon 12-12-2024 Albumin [Mass/Vol] 3.7 g/dL Low 3.9 - 4.9 g/dL [facility] ALP [Catalytic activity/Vol] 121 U/L High 38 - 113 U/L [facility] ALT With P-5'-P [Catalytic activity/Vol] 15 U/L 10 - 54 U/L [facility] Anion gap [Moles/Vol] 11 mmol/L 8 - 15 mmol/L [facility] AST With P-5'-P [Catalytic activity/Vol] 14 U/L 14 - 40 U/L [facility] Bilirubin [Mass/Vol] 0.4 mg/dL 0.2 - 1 .3 mg/dL [facility] Calcium [Mass/Vol] 8.6 mg/dL 8.5 - 10. 2 mg/dL [facility] Chloride [Moles/Vol] 108 mmol/L High 98 - 10 7 mmol/L [facility] CO2 [Moles/Vol] 23 mmol/L 22 - 30 mmol/L [facility] Creatinine [Mass/Vol] 0.91 mg/dL 0.73 - 1.22 mg/dL [facility] GFR/1.73 sq M.predicted among non-blacks MDRD (S/P/Bld) [Vol rate/Area] 94 mL/min/{1.73_m2} - PINF [facility] Comment on above: Estimated Glomerular Filtration Rate [...] 123 mg/dL High 74 - 99 mg/dL [facility] Comment on above: The [place] Diabete s Association (ADA) provides guidance for [...] Standards of Medical Care in Diabetes 2016, [place] [employer]. Diabetes Care. 2016.39(Suppl 1). Interpretation and review of laboratory results Abnormal [facility] Potassium [Moles/Vol] 3.7 mmol/L 3.7 - 5.1 mmol/L [facility] Protein [Mass/Vol] 6.3 g/dL 6.3 - 8.0 g/dL [facility] Sodium [Moles/Vol] 142 mmol/L 136 - 144 mmol/L [facility] Urea nitrogen [Mass/Vol] 20 mg/dL 9 - 24 mg/dL [facility] Albumin [Mass/Vol] 3.7 g/dL Low 3.9-4.9 [facility] Comment on above: Order Comment: Gemini olson Type: BLOOD SPECIMEN [facility]ing Facility[facility] Address: [address] [place] [address] Performed By: #### 2 4323-8 #### [facility] CLIA [id number] [address] ALP [Catalytic activity/Vol] 121 U/L High 38-113 [facility] Comment on above: Order Comment: Gemini olson Type: BLOOD SPECIMEN Ordering Facility[facility] Address: [address] [place] [address] Performed By: #### 2 4323-8 #### [facility] CLIA [id number] [address] ALT With P-5'-P [Catalytic activity/Vol] 15 U/L Normal 10-54 [facility] Comment on above: Order Comment: Gemini olson Type: BLOOD SPECIMEN [facility]ing Facility: [facility] Address: [address] [place] [address] Performed By: #### 2 4323-8 #### [facility] CLIA [id number] [address] Anion gap [Moles/Vol] 11 mmol/L Normal 8-15 [facility] Comment on above: Order Comment: Speci men Type: BLOOD SPECIMEN Ordering Facility: [facility] Address: [address] [place] [address] Performed By: #### 2 4323-8 #### [facility] CLIA [id number] [address] [place] AST With P-5'-P [Catalytic activity/Vol] 14 U/L Normal 14-40 [facility] Comment on above: Order Comment: Speci men Type: BLOOD SPECIMEN Ordering Facility: [facility] Address: [address] [place] [address] Performed By: #### 2 4323-8 #### [facility] CLIA [id number] [address] STATES OF [facility] Bilirubin [Mass/Vol] 0.4 mg/dL Normal 0.2-1.3 [facility] Comment on above: Order Comment: Speci men Type: BLOOD SPECIMEN Ordering Facility: [facility] Address: [address] [place] [address] Performed By: #### 2 4323-8 #### [facility] CLIA [id number] [address] Calcium [Mass/Vol] 8.6 mg/dL Normal 8.5-10.2 [facility] Comment on above: Order Comment: Speci men Type: BLOOD SPECIMEN Ordering Facility: [facility] Address: [address] [place] [address] Performed By: #### 2 4323-8 #### [facility] CLIA [id number] [address] [place] Chloride [Moles/Vol] 108 mmol/L High 98-107 [facility] Comment on above: Order Comment: Speci men Type: BLOOD SPECIMEN Ordering Facility[facility] Address: [address] [place] [address] Performed By: #### 2 4323-8 #### [facility] CLIA [id number] [address] OF [facility] CO2 [Moles/Vol] 23 mmol/L Normal 22-30 [facility] Comment on above: Order Comment: Speci men Type: BLOOD SPECIMEN Ordering Facility: [facility] Address: [address] [place] [address] Performed By: #### 2 4323-8 #### [facility] CLIA [id number] [address] [place] Creatinine [Mass/Vol] 0.91 mg/dL Normal 0.73-1.22 [facility] Comment on above: Order Comment: Speci men Type: BLOOD SPECIMEN Ordering Facility: [facility] Address: [address] [place] [address] Performed By: #### 2 4323-8 #### [facility] CLIA [id number] [address] Creatinine and Glomerular filtration rate.predicted panel (S/P/Bld) 94 mL/min/1.73m??? Normal >=60 [facility] Comment on above: Order Comment: Speci men Type: BLOOD SPECIMEN Ordering Facility: [facility] Address: [address] [place] [address] Result Comment: Josseline mated Glomerular Filtration Rate [...] actual GFR. Performed By: #### 2 4323-8 #### [facility] CLIA [id number] [address] OF [facility] Glucose [Mass/Vol] 123 mg/dL High 74-99 [facility] Comment on above: Order Comment: Speci men Type: BLOOD SPECIMEN Ordering Facility: [facility] Address: [address] [place] [address] Result Comment: The [place] Diabetes Association (ADA) provides guidance for cutoff [...] Standards of Medical Care in Diabetes 2016, [place] [employer]. Diabetes Care. 2016.39(Suppl 1). Performed By: #### 2 4323-8 #### [facility] CLIA [id number] [address] [place] [address] [place] Potassium [Moles/Vol] 3.7 mmol/L Normal 3.7-5.1 [facility] Comment on above: Order Comment: Gemini olson Type: BLOOD SPECIMEN Ordering Facility[facility] Address: [address] [place] [address] Performed By: #### 2 4323-8 #### [facility] CLIA [id number] [address] [place] [address] [place] Protein [Mass/Vol] 6.3 g/dL Normal 6.3-8.0 [facility] Comment on above: Order Comment: Gemini olson Type: BLOOD SPECIMEN Ordering Facility[facility] Address: [address] [place] [address] Performed By: #### 2 4323-8 #### [facility] CLIA [id number] [address] [place] [address] [place] Sodium [Moles/Vol] 142 mmol/L Normal 136-144 [facility] Comment on above: Order Comment: Gemini olson Type: BLOOD SPECIMEN Ordering Facility[facility] Address: [address] [place] [address] Performed By: #### 2 4323-8 #### [facility] CLIA [id number] [address] [place] [address] [place] Urea nitrogen [Mass/Vol] 20 mg/dL Normal 9-24 [facility] Comment on above: Order Comment: Gemini olson Type: BLOOD SPECIMEN [facility] Address: [address] [place] [id number] Performed By: #### 2 4323-8 #### [facility] CLIA [id number] [address] [place] [address] [place] [facility] FACTOR V LEIDEN/PCRon 2024 FACTOR V LEIDEN PCR REPORT Normal [facility] Comment on above: Order Comment: Specmanisha olson Type: BLOOD SPECIMENOrdering Facility: [facility] Address: [address] [place] [id number] Result Comment: Fact or V Leiden PCR Laboratory Accession Number: [id number] Result: NEGATIVE Interpretation: The DNA sample is negative for the c.1601G>A variant (legacy name R506Q) in the Factor V (F5) gene. This variant is commonly known as Factor V Leiden. This result is not associated with an increased risk of thromboembolic disease. The Factor V Leiden assay will not detect individuals with activated protein C resistance who do not have the c.1601G>A variant (less than 5% of those with activated protein C resistance). These individuals may be identified by ordering the functional assay for Activated Protein C Resistance. Thromboembolic disease is a multifactorial disorder, and other causes are not excluded by this result. Methodology: Isolated genomic DNA from the patient's blood specimen is evaluated for the c.1601G>A (p.Xbb155Gpp;[id number]) variant of the F5 gene [RefSeq NM_000130.4; GRCh38/hg38] by multiplex polymerase chain reaction (PCR) followed by melting curve analysis. Limitations: This assay is designed to detect the c.1601G>A variant in the F5 gene. Uncommon variants or single nucleotide polymorphisms may affect binding of probes and may rarely result in false negative, false positive or indeterminate results. This assay does not detect other disease-associated rare variants on F5 or other causes of thromboembolic disease. Disclaimer: This test was developed and its performance characteristics determined by [facility]'s Pathology and Laboratory Medicine Department. It has not been cleared or approved by the FDA. [facility]'s Pathology and Laboratory Medicine Department is regulated under CLIA as certified to perform high-complexity testing. This test is used for clinical purposes. It should not be regarded as investigational or for research. Testing and interpretation performed at [facility], [address] [place] [address]. CLIA Number: [id number] References: 1) Jackie Garcia Sharma P. The genetics of venous thromboembolism. A meta-analysis involving approximately 120,000 cases and 180,000 controls. Thromb Haemost 2009;102(2):360-70. 2) Inherited Thrombophilias in . ACOG Practice Bulletin.No.197.[place] [employer] Gynec[employer]. Obstet Gynecol 2018;132:e18-34. 3) Henrique CHAVEZ. Factor V Leiden Thrombophilia. Angie Med.2011;13(1):1-16. 4) Pharmacogenomics summary [email or web address] As reviewed by Indigo Michelle MD, PhD Performed By: #### F VLTRISTIAN ####[facility] LIMSCLIA [id number] [place] [address] [place] FIBRINOGENon 12-12-2024 Fibrinogen Coag (PPP) [Mass/Vol] 383 mg/dL 200 - 400 mg/dL [facility] Fibrinogen Coag (PPP) [Mass/ Vol]on 12-12-2024 Interpretation and review of laboratory results Normal [facility] Fibrinogen PPP-mCncon 2024 Fibrinogen Coag (PPP) [Mass/Vol] 383 mg/dL Normal 200-400 [facility] Comment on above: Order Comment: Gemini olson Type: BLOOD SPECIMEN [facility] Address: [address] [place] [address] Performed By: #### 1 4979-9 #### [facility] CLIA [id number] [address] [place] PROTHROMBIN GENE PCRon 12-12 PROTHROMBIN GENE MUTATION Normal [facility] Comment on above: Order Comment: Gemini olson Type: BLOOD SPECIMEN [facility]ing Facility: [facility] Address: [address], [place] [address] Result Comment: Prot hrombin Gene Mutation Laboratory Accession Number: [id number] Result: NORMAL Interpretation: The DNA sample is negative for the c.*97G>A variant (legacy name 63987B>A) in the 3' untranslated region of the Factor II (F2) gene. This result is not associated with an increased risk of thromboembolic disease. Thromboembolic disease is a multifactorial disorder and other causes are not excluded by this result. Methodology: Isolated Genomic DNA from the patient's blood specimen is evaluated for the c*97G>A (g.[id number]) variant of the F2 gene [RefSeq NM_000506.53;GRCh38/hg38] by multiplex polymerase chain reaction (PCR) followed by melting curve analysis. Limitations: This assay is designed to detect the c.*97G>A (99577G>A) variant in the F2 gene. Uncommon variants or single nucleotide polymorphisms may affect binding of probes and may rarely result in false negative, false positive or indeterminate results. This assay does not detect other disease-associated rare variants in F2 or other causes of thromboembolic disease. Disclaimer: This test was developed and its performance characteristics determined by [facility]'s Pathology and Laboratory Medicine Department. It has not been cleared or approved by the FDA. [facility]'s Pathology and Laboratory Medicine Department is regulated under CLIA as certified to perform high-complexity testing. This test is used for clinical purposes. It should not be regarded as investigational or for research. Testing and interpretation performed at [facility], [address] [place] [address]. CLIA Number: [id number] References: 1) Inheritied Thrombophilias in . ACOG Practice Bulletin. No. 197. [place] [employer]nec[employer]. Obsete Gynecol 2018;132:e18-34. 2) Anjelt SR, Rianna FR, Retamiko PH, and Yoselin BLACK. A common genetic variation in the 3'-untranslated region of the prothrombin gene is associated with elevated plasma prothrombin levels and an increase in venous thrombosis. Blood 88:3698-703, 1996. 3) Alfredo I, Joseluis V, Donnie C, Kevin K. Prothrombin 94723X>T: 16 new cases, association with the 89802A>G polymorphism, and literature review. J Thromb Haemost. 2009;9:1585-7. As reviewed by Indigo Michelle MD, PhD Performed By: #### 5 8410-2 #### [facility] [id number] [address] [place] [address] [facility] SIM[facility] ([id number]) 1960 M Date Time Provider Department 12/01/24 [facility]ARTHIK [facility] During your visit today, we recorded the following information about you: Viktoria Beyer LPN 12/01/2024 8:57 AM Signed Bupropion xl 450 mg has been denied by insurance. Would like alternative sent to pharmacy. Thank you Karthik Holliday APRN.CHAN 12/01/2024 9:04 AM Signed Please let Alfonzo know that they would not cover the increase in Bupropion and therefore I sent Lexapro 10 mg to be taken with the 300 mg of bupropion. Have him take half a tablet for the first 14 days then he can increase to the full 10 mg tablet. Karthik Holliday APRN.CHAN December 01, 2024 9:03 AM Allergies As of Date: 12/01/2024 (No Known Allergies) Date Reviewed: 11/28/2024 Reviewed by: Karthik Holliday APRN.CHAN - Fully Assessed Reason for Visit: Medication Problem [65] Primary Visit Diagnosis:Depression , unspecified depression type [F32.A] Order(s):buPROPion XL (WELLBUTRIN XL) 300 mg 24 hr tabletTake 1 tablet by mouth once daily.Disp: 90 tabletRfl: 0 escitalopram oxalate (LEXAPRO) 10 mg tabletTake 1 tablet by mouth once daily.Disp: 90 tabletRfl: 0 Prescriptions as of 12/01/2024 - buPROPion XL (WELLBUTRIN XL) 300 mg 24 hr tablet Take 1 tablet by mouth once daily. - escitalopram oxalate (LEXAPRO) 10 mg tablet Take 1 tablet by mouth once daily. - Bisacodyl (DULCOLAX) 5 mg tab Take 5 mg by mouth as needed for constipation. - miconazole 2 % powder Apply 1 application to affected area two times a day. - tamsulosin (FLOMAX) 0.4 mg TAKE 1 CAPSULE AT BEDTIME - acetaminophen (TYLENOL) 500 mg tablet Take 2 tablets by mouth every 8 hours as needed for pain. - hydralazine HCl (HYDRALAZINE ORAL) Take 40 [...] once daily. Problem List As Of Date 12/01/2024 Noted Resolved Essential hypertension [I10] 05/25/2016 Benign [...] Traumatic subdural hematoma with loss of consci*05/09/2024 09/18/2024 Intracranial meningioma (HCC) [D32.0] 05/09/2024 Failure to thrive in adult [R62.7] 06/04/2024 H/O: CVA (cerebrovascular accident) [Z86.73] 06/07/2024 Morbid (severe) obesity due to excess calories *06/24/2020 Recurrent major depressive disorder, in partial*06/24/2020 09/18/2024 Obesity, Class II, BMI 35-39.9 [E66.812] 09/18/2024 Multiple subsegmental pulmonary emboli without *09/24/2024 Pulmonary emboli (HCC) [I26.99] 09/24/2024 Pulmonary embolism without acute cor pulmonale,* History of intracranial hemorrhage [Z86.79] 09/24/2024 Traumatic subdural hematoma with loss of consci*10/13/2024 Prescriptions ordered this encounter Disp Refills Start End BUPROPION XL 300 MG 24 HR TAB 90 t* 0 12/01/2024 03/01/2025 Route: ORAL Sig: Take 1 tablet by mouth once daily. ESCITALOPRAM 10 MG TABLET 90 t* 0 12/01/2024 03/01/2025 Route: ORAL Sig: Take 1 tablet by mouth once daily. Medications Discontinued During This Encounter Prescriptions - buPROPion XL 450 mg Tb24 (Discontinued) Take 1 tablet by mouth once daily. Encounter Status:Closed by FAN (more content not included)... [facility] CNPNon 11-29-2024 [facility] ALFONZO SIMON ([id number]) 1960 M Date Time Provider Department 11/29/24 [facility]ARTHIK [facility] During your visit today, we recorded the following information about you: Viktoria Beyer LPN 11/29/2024 9:13 AM Signed PA done for BuPropion XL 450mg Denied FYI Allergies As of Date: 11/29/2024 (No Known Allergies) Date Reviewed: 11/28/2024 Reviewed by: Karthik Holliday APRN.RN ELIGIBILITY - Fully Assessed Prescriptions as of 11/29/2024 - buPROPion XL 450 mg Tb24 Take 1 tablet by mouth once daily. - Bisacodyl (DULCOLAX) 5 mg tab Take 5 mg by mouth as needed for constipation. - miconazole 2 % powder Apply 1 application to affected area two times a day. - tamsulosin (FLOMAX) 0.4 mg TAKE 1 CAPSULE AT BEDTIME - acetaminophen (TYLENOL) 500 mg tablet Take 2 tablets by mouth every 8 hours as needed for pain. - hydralazine HCl (HYDRALAZINE ORAL) Take 40 [...] once daily. Problem List As Of Date 11/29/2024 Noted Resolved Essential hypertension [I10] 05/25/2016 Benign [...] Traumatic subdural hematoma with loss of consci*05/09/2024 09/18/2024 Intracranial meningioma (HCC) [D32.0] 05/09/2024 Failure to thrive in adult [R62.7] 06/04/2024 H/O: CVA (cerebrovascular accident) [Z86.73] 06/07/2024 Morbid (severe) obesity due to excess calories *06/24/2020 Recurrent major depressive disorder, in partial*06/24/2020 09/18/2024 Obesity, Class II, BMI 35-39.9 [E66.812] 09/18/2024 Multiple subsegmental pulmonary emboli without *09/24/2024 Pulmonary emboli (HCC) [I26.99] 09/24/2024 Pulmonary embolism without acute cor pulmonale,* History of intracranial hemorrhage [Z86.79] 09/24/2024 Traumatic subdural hematoma with loss of consci*10/13/2024 Encounter Status:Closed by VIKTORIA BEYER on 11/29/24 Normal [facility] Automated blood erythrocyte countOrdered By: Violette Abdi on 11-06-2024 RBC (Bld) [#/Vol] 4.87 10*6/uL Normal 4.6-6.2 [facility] Comment on above: Order Comment: 112.1 Performed By: #### L 100.0500, L500.2500 #### [facility] [address] [place], [address] Automated blood hematocrit ( percentage)Ordered By: Violette Abdi on 11-06-2024 Hematocrit (Bld) [Volume fraction] 43.3 % Normal 40-54 [facility] Comment on above: Order Comment: 112.1 Performed By: #### L 100.0500, L500.2500 #### [facility] [address] [place], [address] Basic Metabolic Profile (BMP )on 11-06-2024 BUN/CRE 21.4 RATIO High 10-20 [facility] Comment on above: Order Comment: 112.1 Performed By: #### L 100.0500, L500.2500 #### [facility] [address] [place], [address] CA,Total 9.0 mg/dL Normal 8.5-10.1 [facility] Comment on above: Order Comment: 112.1 Performed By: #### L 100.0500, L500.2500 #### [facility] [address] [place], [address] EST GFR - AA 126 mL/min Normal >60 [facility] Comment on above: Order Comment: 112.1 Result Comment: Afri can [place] GFR Calc Performed By: #### L 100.0500, L500.2500 #### [facility] [address] [place], [address] GAP 5 Normal 5-15 [facility] Comment on above: Order Comment: 112.1 Performed By: #### L 100.0500, L500.2500 #### [facility] [address] [place], [address] GFR/1.73 sq M.predicted among non-blacks MDRD (S/P/Bld) [Vol rate/Area] 104 mL/min/{1.73_m2} Normal >60 [facility] Comment on above: Order Comment: 112.1 Result Comment: Non- GFR Calc Performed By: #### L 100.0500, L500.2500 #### [facility] [address] [place], [address] Blood urea nitrogen (BUN)/cr eatinine ratioOrdered By: Violette Abdi on 11-06-2024 Urea nitrogen/Creatinine [Mass ratio] 21.4 mg/mg High 10-20 [facility] CBC-Complete Blood Cnt No Di ffon 11-06-2024 RDW SD 45.2 fl High 35.1-43.9 [facility] Comment on above: Order Comment: 112.1 Performed By: #### L 100.0500, L500.2500 #### [facility] [address] [place], [address] Carbon dioxide measurementOr dered By: Violette Abdi on 11-06-2024 CO2 [Moles/Vol] 26.0 mmol/L Normal 21.0-32.0 [facility] Comment on above: Order Comment: 112.1 Performed By: #### L 100.0500, L500.2500 #### [facility] [address] [facility] [address] Chloride measurementOrdered By: Violette Abdi on 11-06-2024 Chloride [Moles/Vol] 109 mmol/L High 98-107 [facility] Comment on above: Order Comment: 112.1 Performed By: #### L 100.0500, L500.2500 #### [facility] [address] [place], [address] Erythrocyte distribution wid th ratioOrdered By: Violette Abdi on 11-06-2024 Erythrocyte distribution width (RBC) [Ratio] 13.9 % Normal 11.6-14.6 [facility] Comment on above: Order Comment: 112.1 Performed By: #### L 100.0500, L500.2500 #### [facility] [address] [place], [address] Erythrocyte distribution wid th standard deviationOrdered By: Violette Abdi on 11-06-2024 Erythrocyte distribution width (RBC) [Entitic vol] 45.2 fL High 35.1-43.9 [facility] Estimated glomerular filtrat ion rate (GFR) AmericanOrdered By: Violette Abdi on 11-06-2024 Estimated GFR (MDRD) Amer 126 mL/min >60 [facility] Comment on above: GFR Calc Glomerular filtration rate ( GFR) estimationOrdered By: Violette Abdi on 11-06-2024 Estimated GFR (MDRD) Non-Af Amer 104 mL/min >60 [facility] Comment on above: Non- GFR Calc Glucose measurementOrdered B y: Violette Abdi on 11-06-2024 Glucose [Mass/Vol] 84 mg/dL Normal 74-106 [facility] Comment on above: Order Comment: 112.1 Performed By: #### L 100.0500, L500.2500 #### [facility] [address] [place], [address] Hemoglobin measurementOrdere d By: Violette Abdi on 11-06-2024 Hemoglobin (Bld) [Mass/Vol] 14.1 g/dL Normal 13.0-16.5 [facility] Comment on above: Order Comment: 112.1 Performed By: #### L 100.0500, L500.2500 #### [facility] [address] [place], [address] MCV (mean corpuscular volume ) determinationOrdered By: Violette Abdi on 11-06-2024 MCV (RBC) [Entitic vol] 88.9 fL Normal 80-94 [facility] Comment on above: Order Comment: 112.1 Performed By: #### L 100.0500, L500.2500 #### [facility] [address] [place], [address] Mean corpuscular hemoglobin (MCH) determinationOrdered By: Violette Abdi on 11-06-2024 MCH (RBC) [Entitic mass] 29.0 pg Normal 27.0-32.0 [facility] Comment on above: Order Comment: 112.1 Performed By: #### L 100.0500, L500.2500 #### [facility] [address] [place], [address] Mean corpuscular hemoglobin concentration (MCHC) determinationOrdered By: Violette Abdi on 11-06-2024 MCHC (RBC) [Mass/Vol] 32.6 g/dL Normal 32-36 [facility] Comment on above: Order Comment: 112.1 Performed By: #### L 100.0500, L500.2500 #### [facility] [address] [place], [address] Mean platelet volume determi nationOrdered By: Violette Abdi on 11-06-2024 Platelet mean volume (Bld) [Entitic vol] 11.5 fL Normal 6.2-12.0 [facility] Comment on above: Order Comment: 112.1 Performed By: #### L 100.0500, L500.2500 #### [facility] [address] [place], [address] Platelet countOrdered By: Benji Crespo on 11-06-2024 Platelets (Bld) [#/Vol] 296 10*3/uL Normal 150-450 [facility] Comment on above: Order Comment: 112.1 Performed By: #### L 100.0500, L500.2500 #### [facility] [address] [place], [address] Potassium measurementOrdered By: Violette Abdi on 11-06-2024 Potassium [Moles/Vol] 4.1 mmol/L Normal 3.5-5.1 [facility] Comment on above: Order Comment: 112.1 Performed By: #### L 100.0500, L500.2500 #### [facility] [address] [place], [address] Serum anion gap measurementO rdered By: Violette Abdi on 11-06-2024 Anion gap [Moles/Vol] 5 mmol/L 5-15 [facility] Serum or plasma calcium gael urement (mass/volume)Ordered By: Violette Abdi on 11-06-2024 Calcium [Mass/Vol] 9.0 mg/dL 8.5-10.1 [facility] Serum or plasma creatinine m easurement (mass/volume)Ordered By: Violette Abdi on 11-06-2024 Creatinine [Mass/Vol] 0.79 mg/dL Normal 0.70-1.30 [facility] Comment on above: The validity of the calculated GFR & GFRAA in patients over 70 years has not been determined. Clinical correlation is essential. Order Comment: 112.1 Result Comment: The validity of the calculated GFR GFRAA in patients over 70 years has not been determined. Clinical correlation is essential. Performed By: #### L 100.0500, L500.2500 #### [facility] [address] [facility] [place], [address] Serum or plasma urea nitroge n measurement (mass/volume)Ordered By: Violette Abdi on 11-06-2024 Urea nitrogen [Mass/Vol] 17 mg/dL Normal 7-18 [facility] Comment on above: Order Comment: 112.1 Performed By: #### L 100.0500, L500.2500 #### [facility] [address] [facility] [place], [address] Sodium levelOrdered By: Ramon Abdi on 11-06-2024 Sodium [Moles/Vol] 140 mmol/L Normal 136-145 [facility] Comment on above: Order Comment: 112.1 Performed By: #### L 100.0500, L500.2500 #### [facility] [address] [facility] [place], [address] White blood cell (WBC) count Ordered By: Violette Abdi on 11-06-2024 WBC (Bld) [#/Vol] 6.8 10*3/uL Normal 4.4-11.0 [facility] Comment on above: Order Comment: 112.1 Performed By: #### L 100.0500, L500.2500 #### [facility] [address] [facility] [place], [address] CNOVon 10-27-2024 CNOV Office Visit (NEAGCLM) ALFONZO SIMON ([id number]) 1960 M Date Time Provider Department 10/27/24 3:00 PM LEONARD PATEL NEAGCLM During your visit today, we recorded the following information about you: Pulse Blood pressure Weight Height 65/minute 132/79 130.6 kg 1.829 m Leonard Patel MD 10/27/2024 3:13 PM Signed NEUROSURGERY FOLLOW UP OFFICE NOTE Dr. Leonard Patel MD, [facility] Date of visit: October 27, 2024 Patient Name: Mr.Kevin Myrna Simon Date of : 1960 Current Age: [age] year old Sex: male MRN/E# [id number] Last Office Visit: 10/13/2024 CHIEF COMPLAINT: No chief complaint on file. SUBJECTIVE: The patient presents as a follow up with CT WO imaging (brain) for evaluation. This is a 64 year old male with a PMHx of BPH, HTN, morbid obesity, parkinsonism and sleep apnea who was seen for consult at [facility] on 04/16/24 after transfer from [place] ED for a SAH. Per patients , [...] to do well. He was residing in [facility] and participating in PT/OT/ST. He was moving [...] for possible pseudomeningocele or superimposed infection. The [facility] was contacted with recommendation for the patient [...] in a wheelchair. He is currently in [facility]. Denies headaches or blurred vision. He presents for image review, evaluation and plan of care. SYMPTOMS: None PREVIOUS CONSERVATIVE TREATMENTS: longterm facility PT/OT SURGICAL RISK: Smoker: Never Diabetic: No Anticoagulants / Antiplatelets: ASA 81 mg Occupation: NA PREVIOUS SURGERY: SURGERY #1: Right frontal craniotomy for evacuation of SDH and excision of tumor on 04/16/[address] Patel. FINAL DIAGNOSIS A. Brain tumor, excision: - Meningioma, meningothelial type (grade 1). See comment. PRE-SURGICAL SYMPTOMS: Confusion, difficulty word finding ONCOLOGY TREATMENT TEAM: N/A PAIN EVALUATION No data found in the last 1 encounters. PAST MEDICAL HISTORY Diagnosis Date Atrial fibrillation (HCC) Benign (more content not included)... Normal [facility] CT BRAIN WO IVCONon 10-27-20 CT BRAIN WO IVCON * * *Final Report* * * DATE OF EXAM: Oct 27 2024 3:00PM A1C 0504 - CT BRAIN WO IVCON / PROCEDURE REASON: multiple diagnoses * * * * Physician Interpretation * * * * EXAMINATION: CT BRAIN WO IVCON CLINICAL HISTORY: Traumatic subdural hematoma with loss of consciousness. Intracranial meningioma. TECHNIQUE: Serial axial images without IV contrast were obtained from the vertex to the foramen magnum. MQ: [id number] CT Radiation dose: Integrated Dose-Length Product (DLP) for this visit = 893.83 mGy*cm CT Dose Reduction Employed: No dose reduction techniques were required COMPARISON: MRI brain on 10/02/2024. RESULT: Post-operative change: Status post right-sided craniotomy. Interval decrease in size of scalp fluid collection along the right-sided craniotomy currently measuring 49 x 30 mm (previously 79 x 22 mm). Acute change: No evidence of an acute infarct or other acute parenchymal process. Hemorrhage: No evidence of acute intracranial hemorrhage. Mass Lesion / Mass Effect: There is no evidence of an intracranial mass or extraaxial fluid collection. No significant mass effect. Chronic change: Scattered patchy foci of low attenuation are present within supratentorial white matter which is a nonspecific finding but likely represents mild microvascular ischemia. Small area of presumed encephalomalacia within the right frontoparietal lobe. Parenchyma: There is mild generalized volume loss. Ventricles: Ventricular enlargement concordant with the degree of parenchymal volume loss. Paranasal sinuses and skull base: The visualized paranasal sinuses are grossly clear. The skull base and imaged soft tissues are unremarkable. IMPRESSION: Status post right-sided craniotomy. Interval decrease in size of right-sided scalp fluid collection along right-sided craniotomy, as detailed above. Consider possibility of pseudomeningocele or resolving hematoma. Clinical correlation is recommended. No CT evidence of acute cortical infarct. No CT evidence of acute intracranial hemorrhage. Multiple chronic changes, as detailed above. Acid Operator: PSCB Transcribe Date/Time: Oct 31 2024 8:48A Dictated by : ZEUS SELBY MD This examination was interpreted and the report reviewed and electronically signed by: ZEUS SELBY MD on Oct 31 2024 9:02AM EST [id number] CN [facility] CNOVon 10-26-2024 CNOV Office Visit (CVAKPO) ALFONZO SIMON ([id number]) 1960 M Date Time Provider Department 10/26/24 10:30 AM ANYA HUANG During your visit today, we recorded the following information about you: Pulse Blood pressure Weight Height 59/minute 135/72 130.6 kg 1.829 m Anya Huang APRN.RN ELIGIBILITY 10/26/2024 11:47 AM Signed [facility] Established Visit Consultation is requested by: No referring provider defined for this encounter. PCP: Karthik Holliday [address] [place] [address] [facility]EREBROVASCULAR HISTORY Alfonzo Simon is a 64 year old left-handed male presenting for hospital discharge follow up. Admitted to [facility] 04/15-04/25/24. From discharge summary Mr. Alfonzo Simon was directly admitted to [facility] on 04/15/2024 for treatment of injuries [...] be a meningioma on 04/16/[address] Patel. On the day of his surgery, he [...] outpatient follow-up with his treating neurosurgery (Dr. Patel) two weeks post-operatively for re-evaluation and craniotomy [...] discharge. Mr. Simon would be discharged to [facility] rehab in stable condition on 04/25/2024. He would require outpatient follow-up care with his treating neurosurgeon, stroke neurology and urology as well as his primary care provider. Reason for Visit: subdural hematoma, subarachnoid hemorrhage and ischemic stroke Date of Last Event: 04/15/2024 Antiplatelets/Antico agulants: Apixaban Statins: Atorvastatin Residual Deficits: Motor weakness Current PT/OT/ST: Physical therapy at home, Occupational therapy at home and Speech therapy at home Current Living Situation: Still in a rehab facility Current use of a mobility aid for walking/getting around: Walker Office Visit 05/30/24 -presents for hospital discharge follow up -denies any new symptoms or clinical events -living at [facility] -prior to this lived at home with [...] any new symptoms or clinical events -at [facility] SNF - thinks will have to leave soon because of insurance, would be sent home with home c (more content not included)... Normal [facility] 10-26-2024 HERMAN Telephone (SRINATH) ALFONZO SIMON ([id number]) 1960 M Date Time Provider Department 10/26/24 ANYA HUANG During your visit today, we recorded the following information about you: Steffen Kaiser 10/26/2024 11:17 AM Signed Submitted through portal Consult to Hematology/Oncology #[id number], to be scheduled at [facility] Steffen Kaiser 11/09/2024 8:26 AM Signed Received through portal Consult to Hematology/Oncology #[id number], patient has been scheduled 11/22/24 with Waldo Heredia in the [place] location dh Allergies As of Date: 10/26/2024 (No Known Allergies) Date Reviewed: 10/26/2024 Reviewed by: Kenyetta Alan MA - Fully Assessed Reason for Visit: Consult [173] Prescriptions as of 11/09/2024 - aluminum-magnesium hydroxide-simethicon e (MAALOX,MYLANTA,MAG- AL PLUS) 200-200-20 mg/5 mL suspension Take by mouth every 6 hours as needed. - Bisacodyl (DULCOLAX) 5 mg tab Take 5 mg by mouth as needed for constipation. - polyethylene glycol 3350 17 gram packet Take 1 Packet by mouth once daily. Dissolve dose in 4 - 8 ounces of liquid and take as directed. - miconazole 2 % powder Apply 1 application to affected area two times a day. - tamsulosin (FLOMAX) 0.4 mg TAKE 1 [...] once daily. Problem List As Of Date 10/26/2024 Noted Resolved Essential hypertension [I10] 05/25/2016 Benign [...] Traumatic subdural hematoma with loss of consci*05/09/2024 09/18/2024 Intracranial meningioma (HCC) [D32.0] 05/09/2024 Failure to thrive in adult [R62.7] 06/04/2024 H/O: CVA (cerebrovascular accident) [Z86.73] 06/07/2024 Morbid (severe) obesity due to excess calories *06/24/2020 Recurrent major depressive disorder, in partial*06/24/2020 09/18/2024 Obesity, Class II, BMI 35-39.9 [E66.812] 09/18/2024 Multiple subsegmental pulmonary emboli without *09/24/2024 Pulmonary emboli (HCC) [I26.99] 09/24/2024 Pulmonary embolism without acute cor pulmonale,* History of intracranial hemorrhage [Z86.79] 09/24/2024 Traumatic subdural hematoma with loss of consci*10/13/2024 Encounter Status:Closed by STEFFEN KAISER on 10/26/24 [facility] CHANN Telephone (NEAGCLM) ALFONZO SIMON ([id number]) 1960 M Date Time Provider Department 10/26/24 LEONARD PATEL NEAGCLM During your visit today, we recorded the following information about you: Sahara Moreira 10/26/2024 1:48 PM Signed Patient facility called in and wanted to verify patient did not have a co pay due tomorrow. I looked at the [facility] CT and follow up and the balance under co pay said 0. I informed facility it stated 0 due Allergies As of Date: 10/26/2024 (No Known Allergies) Date Reviewed: 10/26/2024 Reviewed by: Kenyetta Alan MA - Fully Assessed Prescriptions as of 10/26/2024 - magnesium, aluminum hydroxide (ALUMINUM-MAGNESIUM HYDROXIDE ORAL) Take by mouth. - polyethylene glycol 3350 17 gram packet [...] times a day for 28 days. - tamsulosin (FLOMAX) 0.4 mg TAKE 1 [...] once daily. Problem List As Of Date 10/26/2024 Noted Resolved Essential hypertension [I10] 05/25/2016 Benign [...] Traumatic subdural hematoma with loss of consci*05/09/2024 09/18/2024 Intracranial meningioma (HCC) [D32.0] 05/09/2024 Failure to thrive in adult [R62.7] 06/04/2024 H/O: CVA (cerebrovascular accident) [Z86.73] 06/07/2024 Morbid (severe) obesity due to excess calories *06/24/2020 Recurrent major depressive disorder, in partial*06/24/2020 09/18/2024 Obesity, Class II, BMI 35-39.9 [E66.812] 09/18/2024 Multiple subsegmental pulmonary emboli without *09/24/2024 Pulmonary emboli (HCC) [I26.99] 09/24/2024 Pulmonary embolism without acute cor pulmonale,* History of intracranial hemorrhage [Z86.79] 09/24/2024 Traumatic subdural hematoma with loss of consci*10/13/2024 Encounter Status:Closed by SAHARA MOREIRA on 10/26/24 [facility] CNOVon 10-13-2024 CNOV Office Visit (NEAGCLM) ALFONZO SIMON ([id number]) 1960 Date Time Provider Department 10/13/24 11:45 AM LEONARD PATEL NEAGCLM During your visit today, we recorded the following information about you: Pulse Respiration Blood pressure 71/minute 16/minute 146/76 Leonard Patel MD 10/13/2024 11:48 AM Signed NEUROSURGERY FOLLOW UP OFFICE NOTE Dr. Leonard Patel MD, [facility] Date of visit: October 13, 2024 Patient Name: Mr.Kevin Myrna Simon Date of : 1960 Current Age: [age] year old Sex: male MRN/E# [id number] Last Office Visit: June 20, 2024 CHIEF COMPLAINT: Patient presents with: Established Patient SUBJECTIVE: The patient presents as a follow-up with imaging (MRI B) for evaluation. This is a 64 year old male with a PMHx of BPH, HTN, morbid obesity, parkinsonism and sleep apnea who was seen for consult at [facility] on 04/16/24 after transfer from [place] [facility] for a SAH. Per patients , [...] to do well. He was residing in [facility] and participating in PT/OT/ST. He was moving [...] for possible pseudomeningocele or superimposed infection. The halfway facility was contacted with recommendation for the [...] excision of tumor on 04/16/[address] Patel. FINAL DIAGNOSIS A. Brain tumor, excision: - [...] polyethylene glycol 3350 17 gram packet Take (more content not included)... [facility] CNPNon 10-10-2024 CHANN Telephone (NEAGCLM) AURORAALFONZO ([id number]) 1960 M Date Time Provider Department 10/10/24 AGATA DEL TORO NEAGC During your visit today, we recorded the following information about you: Agata Del Toro APRN.CNP 10/10/2024 10:37 AM Signed Contacted nurse, Elizabeth at [facility] [phone] after receiving results of recent MRI brain. She reported that Alfonzo is neurologically unchanged. No new weakness, lethargy, fever. His craniotomy incision is well healed without any redness, swelling, drainage or dehiscence. He was recently started on Eliquis for DVT, PE and taking 5mg daily. Discussed that Dr. Patel would like to see Alfonzo in the office for evaluation. Will have our schedulers reach out to [facility] and scheduled an appointment for this week. Agata Del Toro APRN-[facility] Neurosurgery Nurse Practitioner [facility] 10:37 AM 10/10/2024 Allergies As of Date: 10/10/2024 (No Known Allergies) Date Reviewed: 10/02/2024 Reviewed by: Mack Dillard, RT(R) - Fully Assessed Reason for Visit: Results [95] Prescriptions as of 10/10/2024 - polyethylene glycol 3350 17 gram packet [...] once daily. Problem List As Of Date 10/10/2024 Noted Resolved Essential hypertension [I10] 05/25/2016 Benign [...] Traumatic subdural hematoma with loss of consci*05/09/2024 09/18/2024 Intracranial meningioma (HCC) [D32.0] 05/09/2024 Failure to thrive in adult [R62.7] 06/04/2024 H/O: CVA (cerebrovascular accident) [Z86.73] 06/07/2024 Morbid (severe) obesity due to excess calories *06/24/2020 Recurrent major depressive disorder, in partial*06/24/2020 09/18/2024 Obesity, Class II, BMI 35-39.9 [E66.812] 09/18/2024 Multiple subsegmental pulmonary emboli without *09/24/2024 Pulmonary emboli (HCC) [I26.99] 09/24/2024 Pulmonary embolism without acute cor pulmonale,*11/17/202 4 History of intracranial hemorrhage [Z86.79] 09/24/2024 Encounter Status:Closed by AGATA DEL TORO on 10/10/24 [facility] CBC-Complete Blood Cnt No Shaniqua mendez 10-06-2024 Erythrocyte distribution width (RBC) [Ratio] 14.4 % Normal 11.6-14.6 [facility] Comment on above: Order Comment: 112.1 Performed By: #### L 500.4050, L100.0500 #### [facility] [address] [place], [address] Hematocrit (Bld) [Volume fraction] 42.2 % Normal 40-54 [facility] Comment on above: Order Comment: 112.1 Performed By: #### L 500.4050, L100.0500 #### [facility] [address] [place], [address] Hemoglobin (Bld) [Mass/Vol] 13.7 g/dL Normal 13.0-16.5 [facility] Comment on above: Order Comment: 112.1 Performed By: #### L 500.4050, L100.0500 #### [facility] [address] [place], [address] MCH (RBC) [Entitic mass] 29.5 pg Normal 27.0-32.0 [facility] Comment on above: Order Comment: 112.1 Performed By: #### L 500.4050, L100.0500 #### [facility] [address] [place], [address] MCHC (RBC) [Mass/Vol] 32.5 g/dL Normal 32-36 [facility] Comment on above: Order Comment: 112.1 Performed By: #### L 500.4050, L100.0500 #### [facility] [address] [place], [address] MCV (RBC) [Entitic vol] 90.8 fL Normal 80-94 [facility] Comment on above: Order Comment: 112.1 Performed By: #### L 500.4050, L100.0500 #### [facility] [address] [place], [address] Platelet mean volume (Bld) [Entitic vol] 11.8 fL Normal 6.2-12.0 [facility] Comment on above: Order Comment: 112.1 Performed By: #### L 500.4050, L100.0500 #### [facility] [address] [place], [address] Platelets (Bld) [#/Vol] 292 10*3/uL Normal 150-450 [facility] Comment on above: Order Comment: 112.1 Performed By: #### L 500.4050, L100.0500 #### [facility] [address] [place], [address] RBC (Bld) [#/Vol] 4.65 10*6/uL Normal 4.6-6.2 [facility] Comment on above: Order Comment: 112.1 Performed By: #### L 500.4050, L100.0500 #### [facility] [address] [place], [address] RDW SD 48.1 fl High 35.1-43.9 [facility] Comment on above: Order Comment: 112.1 Performed By: #### L 500.4050, L100.0500 #### [facility] [address] [place], [address] WBC (Bld) [#/Vol] 8.9 10*3/uL Normal 4.4-11.0 [facility] Comment on above: Order Comment: 112.1 Performed By: #### L 500.4050, L100.0500 #### [facility] [address] [place], [address] Comprehensive Metabolic Prof miakil 11-29-2024 Albumin [Mass/Vol] 3.2 g/dL Normal 3.2-5.0 [facility] Comment on above: Order Comment: 112.1 Performed By: #### L 500.4050, L100.0500 #### [facility] [address] [place], [address] Albumin/Globulin [Mass ratio] 1.0 {ratio} Normal 0.9-2.4 [facility] Comment on above: Order Comment: 112.1 Performed By: #### L 500.4050, L100.0500 #### [facility] [address] [place], [address] ALK P 126 U/L High 45-117 [facility] Comment on above: Order Comment: 112.1 Performed By: #### L 500.4050, L100.0500 #### [facility] [address] [place], [address] ALT [Catalytic activity/Vol] 22 U/L Normal 16-61 [facility] Comment on above: Order Comment: 112.1 Performed By: #### L 500.4050, L100.0500 #### [facility] [address] [place], [address] AST [Catalytic activity/Vol] 15 U/L Normal 15-37 [facility] Comment on above: Order Comment: 112.1 Performed By: #### L 500.4050, L100.0500 #### [facility] [address] [place], [address] Bilirubin [Mass/Vol] 0.40 mg/dL Normal 0.20-1.00 [facility] Comment on above: Order Comment: 112.1 Result Comment: For patients on eltrombopag therapy, use of Dimension [place]ura TBIL is not recommended. Performed By: #### L 500.4050, L100.0500 #### [facility] [address] [place], [address] BUN/CRE 25.0 RATIO High 10-20 [facility] Comment on above: Order Comment: 112.1 Performed By: #### L 500.4050, L100.0500 #### [facility] [address] [place], [address] CA,Total 8.6 mg/dL Normal 8.5-10.1 [facility] Comment on above: Order Comment: 112.1 Performed By: #### L 500.4050, L100.0500 #### [facility] [address] [place], [address] Chloride [Moles/Vol] 112 mmol/L High 98-107 [facility] Comment on above: Order Comment: 112.1 Performed By: #### L 500.4050, L100.0500 #### [facility] [address] [place], [address] CO2 [Moles/Vol] 25.0 mmol/L Normal 21.0-32.0 [facility] Comment on above: Order Comment: 112.1 Performed By: #### L 500.4050, L100.0500 #### [facility] [address] [place], [address] Creatinine [Mass/Vol] 0.76 mg/dL Normal 0.70-1.30 [facility] Comment on above: Order Comment: 112.1 Result Comment: The validity of the calculated GFR GFRAA in patients over 70 years has not been determined. Clinical correlation is essential. Performed By: #### L 500.4050, L100.0500 #### [facility] [address] [place], [address] EST GFR - AA 132 mL/min Normal >60 [facility] Comment on above: Order Comment: 112.1 Result Comment: Afri can [place] GFR Calc Performed By: #### L 500.4050, L100.0500 #### [facility] [address] [place], [address] GAP 5 Normal 5-15 [facility] Comment on above: Order Comment: 112.1 Performed By: #### L 500.4050, L100.0500 #### [facility] [address] [place], [address] GFR/1.73 sq M.predicted among non-blacks MDRD (S/P/Bld) [Vol rate/Area] 109 mL/min/{1.73_m2} Normal >60 [facility] Comment on above: Order Comment: 112.1 Result Comment: Non- GFR Calc Performed By: #### L 500.4050, L100.0500 #### [facility] [address] [place], [address] Globulin (S) [Mass/Vol] 3.1 g/dL Normal 2.2-4.2 [facility] Comment on above: Order Comment: 112.1 Performed By: #### L 500.4050, L100.0500 #### [facility] [address] [place], [address] Glucose [Mass/Vol] 83 mg/dL Normal 74-106 [facility] Comment on above: Order Comment: 112.1 Performed By: #### L 500.4050, L100.0500 #### [facility] [address] [place], [address] Potassium [Moles/Vol] 3.9 mmol/L Normal 3.5-5.1 [facility] Comment on above: Order Comment: 112.1 Performed By: #### L 500.4050, L100.0500 #### [facility] [address] [place], [address] Sodium [Moles/Vol] 142 mmol/L Normal 136-145 [facility] Comment on above: Order Comment: 112.1 Performed By: #### L 500.4050, L100.0500 #### [facility] [address] [place], [place], [address] T PROT 6.3 g/dL Low 6.4-8.2 [facility] Comment on above: Order Comment: 112.1 Performed By: #### L 500.4050, L100.0500 #### [facility] [address] [place], [place], [id number] Urea nitrogen [Mass/Vol] 19 mg/dL High 7-18 [facility] Comment on above: Order Comment: 112.1 Performed By: #### L 500.4050, L100.0500 #### [facility] [address] [place], [place], [address] CNPNon [facility]24 [facility] ALFONZO SIMON ([id number]) 1960 M Date Time Provider Department 10/04/[address] [facility] During your visit today, we recorded the following information about you: Anya Huang APRN.CNP 10/04/2024 10:03 AM Signed MRI results as below. Scan was ordered for routine follow up of microhemorrhages. Dr. Patel, can your office get him in to [...] and neurosurgical follow-up is recommended. Anya Huang APRN.RN ELIGIBILITY 10/09/2024 10:28 AM Signed Ana, Can you please contact patient to see if he has any symptoms of infection? Sees Neurosurgery through [facility] for post traumatic SDH evacuation and excision of meningioma and needs to speak with their office/see them [place]. Fwd to neurosurgery provider but 10/04 but I don't see anything documented in chart, may be out of office? Geni Calloway RN 10/09/2024 10:58 AM Signed Call to Dr. Patel's office [phone], advised that pt needs an appt [place] based on MRI. Roofing Machine Operator states that she will call pt and [...] to rehab. Phone number provided to Dr. Patel's office, states he will call to schedule sooner appt. 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 Normal [facility] MRI BRAIN WO IVCONon 024 MRI BRAIN WO IVCON * * *Final Report* * * DATE OF EXAM: Oct 02 2024 8:50AM AKM 0294 - MRI BRAIN WO IVCON / PROCEDURE REASON: Silent micro-hemorrhage of brain (HCC) * * * * Physician Interpretation * * * * EXAMINATION: MRI BRAIN WO IVCON CLINICAL HISTORY: Silent microhemorrhage of the brain. TECHNIQUE: Routine noncontrast MRI protocol including diffusion images. MQ: [id number] COMPARISON: CT brain on 06/20/2024. RESULT: Acute Change: There is no evidence of restricted diffusion to suggest an acute infarct. Hemorrhage: Few scattered punctate microhemorrhages scattered throughout the supratentorial and infratentorial brain, most compatible with chronic microhemorrhages. No appreciable change since 04/18/2024. Mass Lesion/ Mass Effect: No evidence of an intracranial mass or extra-axial fluid collection. No significant mass effect. Chronic Change: Scattered patchy and confluent areas of increased T2 and FLAIR signal are present in the supratentorial white matter which is nonspecific but likely represents chronic microvascular ischemia. Presumed small chronic infarct within right frontoparietal lobe. Multiple chronic microhemorrhages. Parenchyma: There is moderate generalized parenchymal volume loss. Ventricles: Ventriculomegaly corresponds to the degree of parenchymal volume loss. Skull Base: Hypothalamic and pituitary region are grossly normal. Craniocervical junction is normal. No significant marrow replacement process. Other: Interval development of sizable fluid collection within right-sided scalp along right frontotemporal lobe measuring 70 x 27 x 16 mm. No convincing evidence of extra-axial component. There appears to be possible continuity to the adjacent extra-axial space (series 7 image 24). IMPRESSION: Interval development of sizable fluid collection [...] ganglia. Additional chronic findings, as detailed above. ACTIONABLE RESULT: FOLLOW-UP Acuity: Actionable Findings: Neurological System-BRAIN Routing Code: NI_1 Recommendation: Unlisted Recommendation (see report) Time Frame: as soon as possible, when the patient's clinical state allows. COMMUNICATION: Results will be communicated with the ordering provider via [employer] staff message or phone message by [employer] within 2 business days of report finalization. --END OF FINDING-- Acid Operator: CRYS Transcribe Date/Time: Oct 03 2024 2:10P Dictated by : ZEUS SELBY MD This examination was interpreted and the report reviewed and electronically signed by: ZEUS SELBY MD on Oct 03 2024 2:44PM EST [id number] ACTIONABLE Invalid Interpretation Code [facility] CNDSon 09-28-2024 DS HNO ID: [id number] Author: FLORENCIO FAIR MD Service: Hospital Medicine Author Type: Physician Type: Discharge Summary Filed: 09/28/2024 12:27 Note Text: DISCHARGE SUMMARY PATIENT NAME: Alfonzo Simon ADMISSION DATE: 09/23/2024 DISCHARGE DATE: 09/28/2024 ATTENDING PHYSICIAN: Florencio Fair MD Code Status: Full Code Highest Readmission Risk Score: 15 The 30 day readmissions risk score is derived from an internally validated risk model which evaluates patient level characteristics, utilization history, medication orders and lab results up until the day of discharge. Patients with a score of 40 or above are considered highest risk for readmission. Specific patient level drivers will be listed at the bottom of the summary. CONSULTING TEAMS DURING HOSPITALIZATION: None Treatment Team: Attending Provider: Florencio Fair MD Attending: Deedee Maxwell MD Primary Service: [facility] REASON FOR HOSPITALIZATION: PE, DVT DIAGNOSIS: Principal Problem: Pulmonary embolism without acute cor pulmonale, unspecified chronicity, unspecified pulmonary embolism type (HCC) (POA: Yes) Active Problems: Multiple subsegmental pulmonary emboli without acute cor pulmonale (HCC) (POA: Unknown) Pulmonary emboli (HCC) (POA: Yes) History of intracranial hemorrhage (POA: Yes) Resolved Problems: * No resolved hospital problems. * OPERATIONS DURING HOSPITALIZATION: None PROCEDURES DURING HOSPITALIZATION: No procedures performed HOSPITAL COURSE: 64 year old male with history of Atrial flutter, Ground level fall with Right subdural hematoma, Right frontal subarachnoid hemorrhage s/p right craniotomy evacuation with postop course complicated by acute ischemic stroke with bilateral cortical infarcts with residual left arm and bilateral lower extremity weakness, presented with shortness of breath and swollen leg. CT chest showed a subsegmental pulmonary emboli bilaterally. He was started on heparin and seen by [facility]. No intervention was recommended. Ultrasound of leg showed DVT. Echocardiogram was suboptimal but showed preserved ejection fraction. He was seen by therapy and halfway facility was recommended he was seen by neurology who agreed with short term anticoagulation in setting of possible cerebral amyloid angiopathy. ASA was started by neurosurgery on previous admission for stroke prophylaxis. I am holding on ASA during this admission since patient is on Eliquis and has Hx of SAH. Patient supposed to follow up with neurology next week. I will leave the decision of restarting ASA to neurology. Patient was updated about the plan and he is agreeable. Transitions of Care Critical Issues: LABS AND PROCEDURES PENDING AT DISCHARGE: No pending results. PATIENT CONDITION AT DISCHARGE: Stable DISCHARGE DISPOSITION: Longterm Facility Longterm Facility Discharge Physical Exam: VITAL SIGNS: BP 120/72 Pulse 65 Temp 36.6 ?C (97.9 ?F) Resp 18 Ht 182.9 cm (6') Wt 130.6 kg (288 lb) SpO2 98% BMI 39.06 kg/m? GENERAL: Alert, no distress, cooperative LUNGS: Lungs clear to auscultation, Good diaphragmatic excursion CARDIAC: Normal S1 and S2; no rubs, murmurs, or gallops ABDOMEN: Abdomen soft, non-tender, BS normal, No masses or organomegaly INFORMATION PROVIDED TO PATIENT: WOUND/SURGICAL SITE CARE: None DIET: Resume pre-hospital diet ACTIVITY: Resume pre-hospital activity ALLERGIES No Known Allergies DISCHARGE MEDICATION: Medication List START taking these medications apixaban 5 mg tab(s) Commonly known as: ELIQUIS Take 2 tablets by mouth two times a day for 5 days, THEN 1 tablet two times a day for 28 days. Start taking on: September 28, 2024 miconazole 2 % powder Apply 1 application to affected area two times a day. polyethylene glycol 3350 17 gram packet Take 1 Packet by mouth once daily. Dissolve dose in 4 - 8 ounces of liquid and take as directed. Start taking on: September 29, 2024 CONTINUE taking these medications acetaminophen 500 mg tablet Commonly known as: TYLENOL Take 2 tablets by mouth every 8 hours as needed for pain. amLODIPine 5 mg tablet Commonly known as: NORVASC Take 2 tablets by mouth once daily. atorvastatin 20 mg tablet Commonly known as: LIPITOR Take 1 tablet by mouth once daily. HYDRALAZINE ORAL lisinopril 40 mg tablet Commonly known as: ZESTRIL Take 1 tablet by mouth once daily. nystatin powder Commonly known as: MYCOSTATIN Apply 1 application to affected area four times daily. senna-docusate 8.6-50 mg per tablet Commonly known as: SENNA-S Take 1 tablet by mouth two times a day. tamsulosin 0.4 mg Commonly known as: FLOMAX TAKE 1 CAPSULE AT BEDTIME WELLBUTRIN XL 300 mg 24 hr tablet Generic drug: buPROPion XL STOP taking these medications aspirin 81 mg chewable tablet FUTURE APPOINTMENTS: Follow Up with PCP: Karthik Holliday APRN.RN ELIGIBILITY Future Ap (more content not included)... Normal [facility] Basic metabolic 2000 panelon 09-27-2024 Anion gap [Moles/Vol] 12 mmol/L Normal 8-15 [facility] Comment on above: Order Comment: Speci men Type: BLOOD SPECIMEN Ordering Facility: [facility] Address: [address] [place] [address] Performed By: #### 1 4979-9 #### [id number] [address] [place] Calcium [Mass/Vol] 8.6 mg/dL Normal 8.5-10.2 [facility] Comment on above: Order Comment: Speci men Type: BLOOD SPECIMEN Ordering Facility: [facility] Address: [address] [place] [address] Performed By: #### 1 4979-9 #### [facility] CLIA [id number] [address] [place] Chloride [Moles/Vol] 104 mmol/L Normal 98-107 [facility] Comment on above: Order Comment: Speci men Type: BLOOD SPECIMEN Ordering Facility: [facility] Address: [address] [place] [address] Performed By: #### 1 4979-9 #### [facility] CLIA [id number] [address] [place] CO2 [Moles/Vol] 23 mmol/L Normal 22-30 [facility] Comment on above: Order Comment: Speci men Type: BLOOD SPECIMEN Ordering Facility: [facility] Address: [address] [place] [address] Performed By: #### 1 4979-9 #### [facility] CLIA [id number] [address] [place] Creatinine [Mass/Vol] 0.75 mg/dL Normal 0.73-1.22 [facility] Comment on above: Order Comment: Speci men Type: BLOOD SPECIMEN Ordering Facility: [facility] Address: [address] [place] [address] Performed By: #### 1 4979-9 #### [facility] CLIA [id number] [address] Creatinine and Glomerular filtration rate.predicted panel (S/P/Bld) 100 mL/min/1.73m??? Normal >=60 [facility] Comment on above: Order Comment: Speci men Type: BLOOD SPECIMEN Ordering Facility: [facility] Address: [address] [place] [address] Result Comment: Josseline mated Glomerular Filtration Rate [...] accurately reflect actual GFR. Performed By: #### 1 4979-9 #### [facility] CLIA [id number] [address] [place] [address] [place] Glucose [Mass/Vol] 95 mg/dL Normal 74-99 [facility] Comment on above: Order Comment: Gemini olson Type: BLOOD SPECIMEN Ordering Facility: [facility] Address: [address] [place] [address] Result Comment: The [place] [employer] (ADA) provides guidance for cutoff [...] Standards of Medical Care in Diabetes 2016, [place] [employer]. Diabetes Care. 2016.39(Suppl 1). Performed By: #### 1 4979-9 #### [facility] CLIA [id number] [address] [place] [address] [place] Potassium [Moles/Vol] 3.9 mmol/L Normal 3.7-5.1 [facility] Comment on above: Order Comment: Gemini olson Type: BLOOD SPECIMEN Ordering Facility: [facility] Address: [address] [place] [id number] Performed By: #### 1 4979-9 #### [facility] CLIA [id number] [address] [place] [address] [place] Sodium [Moles/Vol] 139 mmol/L Normal 136-144 [facility] Comment on above: Order Comment: Speci men Type: BLOOD SPECIMEN Ordering Facility: [facility] Address: [address] [place] [address] Performed By: #### 1 4979-9 #### [facility] CLIA [id number] [address] STATES OF [facility] Urea nitrogen [Mass/Vol] 12 mg/dL Normal 9-24 [facility] Comment on above: Order Comment: Speci men Type: BLOOD SPECIMEN Ordering Facility: [facility] Address: [address] [place] [address] Performed By: #### 1 4979-9 #### [facility] CLIA [id number] [address] CBC W Auto Differential pane l (Bld)on 09-27-2024 Basophils (Bld) [#/Vol] 0.03 10*3/uL Normal <0.11 [facility] Comment on above: Order Comment: Speci men Type: BLOOD SPECIMEN Ordering Facility: [facility] Address: [address] [place] [address] Performed By: #### 5 8410-2 #### [facility] CLIA [id number] [address] Basophils/100 WBC (Bld) 0.4 % Normal [facility] Comment on above: Order Comment: Speci men Type: BLOOD SPECIMEN Ordering Facility: [facility] Address: [address] [place] [address] Performed By: #### 5 8410-2 #### [facility] CLIA [id number] [address] Differential cell count method Nom (Bld) Auto Normal [facility] Comment on above: Order Comment: Speci men Type: BLOOD SPECIMEN Ordering Facility: [facility] Address: [address] [place] [address] Performed By: #### 5 8410-2 #### [facility] CLIA [id number] [address] [place] Eosinophils (Bld) [#/Vol] 0.22 10*3/uL Normal <0.46 [facility] Comment on above: Order Comment: Speci men Type: BLOOD SPECIMEN Ordering Facility: [facility] Address: [address] [place] [address] Performed By: #### 5 8410-2 #### [facility] CLIA [id number] [address] [place] Eosinophils/100 WBC (Bld) 2.7 % Normal [facility] Comment on above: Order Comment: Speci men Type: BLOOD SPECIMEN Ordering Facility: [facility] Address: [address] [place] [address] Performed By: #### 5 8410-2 #### [facility] CLIA [id number] [address] [place] Erythrocyte distribution width (RBC) [Ratio] 14.2 % Normal 11.5-15.0 [facility] Comment on above: Order Comment: Speci men Type: BLOOD SPECIMEN Ordering Facility: [facility] Address: [address] [place] [address] Performed By: #### 5 8410-2 #### [facility] CLIA [id number] [address] [place] Hematocrit (Bld) [Volume fraction] 39.1 % Normal 39.0-51.0 [facility] Comment on above: Order Comment: Speci men Type: BLOOD SPECIMEN Ordering Facility: [facility] Address: [address] [place] [address] Performed By: #### 5 8410-2 #### [facility] CLIA [id number] [address] [place] Hemoglobin (Bld) [Mass/Vol] 12.7 g/dL Low 13.0-17.0 [facility] Comment on above: Order Comment: Speci men Type: BLOOD SPECIMEN Ordering Facility: [facility] Address: [address] [place] [address] Performed By: #### 5 8410-2 #### [facility] CLIA [id number] [address] [place] Immature granulocytes (Bld) [#/Vol] 0.04 10*3/uL Normal <0.10 [facility] Comment on above: Order Comment: Speci men Type: BLOOD SPECIMEN Ordering Facility: [facility] Address: [address] [place] [address] Performed By: #### 5 8410-2 #### [facility] CLIA [id number] [address] OF [facility] Immature granulocytes/100 WBC (Bld) 0.5 % Normal [facility] Comment on above: Order Comment: Speci men Type: BLOOD SPECIMEN Ordering Facility: [facility] Address: [address] [place] [address] Performed By: #### 5 8410-2 #### [facility] CLIA [id number] [address] [place] Lymphocytes (Bld) [#/Vol] 1.20 10*3/uL Normal 1.00-4.00 [facility] Comment on above: Order Comment: Speci men Type: BLOOD SPECIMEN Ordering Facility: [facility] Address: [address] [place] [address] Performed By: #### 5 8410-2 #### [facility] CLIA [id number] [address] Lymphocytes/100 WBC (Bld) 14.9 % Normal [facility] Comment on above: Order Comment: Speci men Type: BLOOD SPECIMEN Ordering Facility: [facility] Address: [address] [place] [address] Performed By: #### 5 8410-2 #### [facility] CLIA [id number] [address] [place] MCH (RBC) [Entitic mass] 29.6 pg Normal 26.0-34.0 [facility] Comment on above: Order Comment: Speci men Type: BLOOD SPECIMEN Ordering Facility: [facility] Address: [address] [place] [address] Performed By: #### 5 8410-2 #### [facility] CLIA [id number] [address] MCHC (RBC) [Mass/Vol] 32.5 g/dL Normal 30.5-36.0 [facility] Comment on above: Order Comment: Speci men Type: BLOOD SPECIMEN Ordering Facility: [facility] Address: [address] [place] [address] Performed By: #### 5 8410-2 #### [facility] CLIA [id number] [address] MCV (RBC) [Entitic vol] 91.1 fL Normal 80.0-100.0 [facility] Comment on above: Order Comment: Speci men Type: BLOOD SPECIMEN Ordering Facility: [facility] Address: [address] [place] [address] Performed By: #### 5 8410-2 #### [facility] CLIA [id number] [address] Monocytes (Bld) [#/Vol] 0.59 10*3/uL Normal <0.87 [facility] Comment on above: Order Comment: Speci men Type: BLOOD SPECIMEN Ordering Facility: [facility] Address: [address] [place] [address] Performed By: #### 5 8410-2 #### [facility] CLIA [id number] [address] Monocytes/100 WBC (Bld) 7.3 % Normal A [facility] Comment on above: Order Comment: Speci men Type: BLOOD SPECIMEN Ordering Facility: [facility] Address: [address] [place] [address] Performed By: #### 5 8410-2 #### [facility] CLIA [id number] [address] [place] Neutrophils (Bld) [#/Vol] 5.99 10*3/uL Normal 1.45-7.50 [facility] Comment on above: Order Comment: Speci men Type: BLOOD SPECIMEN Ordering Facility: [facility] Address: [address] [place] [address] Performed By: #### 5 8410-2 #### [facility] CLIA [id number] [address] [place] Neutrophils/100 WBC (Bld) 74.2 % Normal [facility] Comment on above: Order Comment: Speci men Type: BLOOD SPECIMEN Ordering Facility: [facility] Address: [address] [place] [address] Performed By: #### 5 8410-2 #### [facility] CLIA [id number] [address] [place] Nucleated RBC (Bld) [#/Vol] 10*3/uL Normal <0.01 [facility] Comment on above: Order Comment: Speci men Type: BLOOD SPECIMEN Ordering Facility: [facility] Address: [address] [place] [address] Performed By: #### 5 8410-2 #### [facility] CLIA [id number] [address] [place] Nucleated RBC/100 WBC (Bld) [Ratio] 0.0 /100 WBC Normal [facility] Comment on above: Order Comment: Speci men Type: BLOOD SPECIMEN Ordering Facility: [facility] Address: [address] [place] [address] Performed By: #### 5 8410-2 #### [facility] CLIA [id number] [address] [place] Platelet mean volume (Bld) [Entitic vol] 11.4 fL Normal 9.0-12.7 [facility] Comment on above: Order Comment: Speci men Type: BLOOD SPECIMEN Ordering Facility: [facility] Address: [address] [place] [address] Performed By: #### 5 8410-2 #### [facility] CLIA [id number] [address] [place] Platelets (Bld) [#/Vol] 228 10*3/uL Normal 150-400 [facility] Comment on above: Order Comment: Speci men Type: BLOOD SPECIMEN Ordering Facility: [facility] Address: [address] [place] [address] Performed By: #### 5 8410-2 #### [facility] CLIA [id number] [address] OF [facility] RBC (Bld) [#/Vol] 4.29 10*6/uL Normal 4.20-6.00 [facility] Comment on above: Order Comment: Speci men Type: BLOOD SPECIMEN Ordering Facility: [facility] Address: [address] [place] [address] Performed By: #### 5 8410-2 #### [facility] CLIA [id number] [address] [place] OF [facility] WBC (Bld) [#/Vol] 8.07 10*3/uL Normal 3.70-11.00 [facility] Comment on above: Order Comment: Speci men Type: BLOOD SPECIMEN Ordering Facility: [facility] Address: [address] [place] [address] Performed By: #### 5 8410-2 #### [facility] CLIA [id number] [address] THERAPY NTon 09-27-2024 THERAPY NT HNO ID: [id number] Author: CATRACHITA BRANHAM OTR/Juan Antonio Service: Occupational Therapy Author Type: Occupational Therapist Type: Therapy (PT/OT/Speech/Resp) Filed: 09/27/2024 16:38 Note Text: Occupational Therapy Treatment Summary SERVICE DATE: 09/27/2024 SERVICE TIME: 1543 to 1624 ROOM: [place] [address] OT 6 Clicks Score: 14 DISCHARGE RECOMMENDATIONS Subacute/SNF Recommended Discharge Disposition Comments: Pt is below his baseline with new signficant medical problems affecting his function Recommended Discharge Disposition Due to: Functional deficits requiring ongoing therapy service prior to discharge home., ADL impairment, Requires multiple therapy disciplines ASSESSMENT Response to Therapy Interventions: Good Participation in Activities, Improved Tolerance for Activity, Low Activity Tolerance, Multiple Ongoing Medical Issues, Requires Additional Time to Complete Activities Pt progressing well towards goals, continue to recc SNF at D/C. No goals met, ongoing. Facilitated supine to edge of bed and assisted to sit on edge of bed for a few minutes. Raised height of bed and assisted to stand to wheeled walker. Adjusted bedside commode height taller and assisted to take a few steps to bedside commode from edge of bed. Pt incontinent of stool prior to standing. After extended time on bedside commode assisted to stand for extended pericare with pt holding to walker and therapist providing heavy assist. Assisted to take sidesteps along edge of bed and remained on edge of bed at end of session. Pt's O2 sat 96-98% on RA. Changed bed linens while pt up on bedside commode toileting. PRECAUTIONS Fall Risk, Bed/Chair Alarm CURRENT HOSPITAL COURSE Pt found to have SOB. Found to have B PEs, B L DVTs, started on heparin. 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 Relevant Past Medical History: HTN, parkinsonism, obesity, SDA, 04/2024 SAH s/p crani, CVA, R frontotemporal crani and excision meningioma HOME LIVING Patient Lives With: Spouse () Assistance Available: 24-Hour Entry To Home: Stairs, With Rail Number Of Stairs Into Home: 5 (in the back has railings) Number Of Stairs To Bed/Bath: flight Stairs to Bed/Bath with: Unilateral Rail Tub/Shower Type: tub shower with seat Laundry: basement Equipment Owned: Shower Chair, Walker- Wheeled (transport W/C) PRIOR FUNCTIONAL LEVEL Required Assistance Assistance Required With: Transportation, Shopping, Safety, Self Care, Laundry, Cleaning, Meals, Medication Management Pt recently had SAH and crani did acute rehab, SNF 2x by the end of august, transitioned to staying at [facility] [place] for about a week prior to being readmitted for current medical issues. Pt was getting help for ADLs and mobility from since being home; prior to SAH independent with device Baseline Cognition: Oriented to self, Oriented to place, Oriented to time, Oriented to situation SUBJECTIVE pt agreeable to OT, wants to try to get to [facility] COGNITION Responsiveness: Alert, Awake Follows Commands: 2-step Commands Executive Function Deficits: Safety Awareness, Problem Solving, Insight to Deficits, Judgement THERAPY DIAGNOSIS Reduced mobility-other, Decreased activities of daily living (ADL), Muscle Weakness (generalized), Unsteadiness on feet, Abnormalities of gait and mobility-other TREATMENT INTERVENTIONS Self Snf Management (34563) Timed Code Treatment (minutes): 25 Skilled Treatment Time (minutes): 41 $ Evaluation - Moderate (14281) Billed Units: 1 unit Self Snf Management (89240) Treatment Minutes: 25 $ Self Snf Management (75452) Billed Units: 2 units TRAINING AND EDUCATION PROVIDED Bed Mobility, Adaptive Equipment/DME, Benefits of In-Hospital Mobility, Functional Mobility Involving ADLs, Expected Functional Level, Role of Occupational Therapy, Sitting Balance to Improve [place] with ADLs/Self-Care, Standing Balance to Improve [place] with ADLs/Self-Care, Toileting , Transfer - Sit to Stand, Transfer - Toilet/Commode THERAPEUTIC SKILLS USED Activity Dosing, Assessment of Tolerance Including Vitals Response to Activity, Cuing Tactile, Cues for Sequencing/Proper Technique for Activity, Cuing Visual, Cuing Verbal, Physical Assist, Therapeutic Use of Self FUNCTIONAL STATUS mobility performed during session in bold, other mobility completed during prior session and may no longer be correct or appropriate to complete. Activities of Daily Living Assist Level Additional Information Feeding Independent Grooming Moderate Assistance Bathing Upper Body Moderate Assistance Bathing Lower Body Maximal Assistance Dressing Upper Body Moderate Assistance Dressing Lower Body Maximal Assistance Toileting Moderate Assistance, Additional Information BSC level, heavy stand off of BSC elevated to the highest level Mobility Assist Level Additi (more content not included)... Normal [facility] CBC panel Auto (Bld)on 09-26 Erythrocyte distribution width (RBC) [Ratio] 14.5 % Normal 11.5-15.0 [facility] Comment on above: Order Comment: Gemini olson Type: BLOOD SPECIMEN Ordering Facility: [facility] Address: [address] [place] [address] Performed By: #### 5 8410-2 #### [facility] CLIA [id number] 1 [place] [address] [place] Hematocrit (Bld) [Volume fraction] 36.2 % Low 39.0-51.0 [facility] Comment on above: Order Comment: Speci men Type: BLOOD SPECIMEN Ordering Facility: [facility] Address: [address] [place] [address] Performed By: #### 5 8410-2 #### [facility] CLIA [id number] [address] Hemoglobin (Bld) [Mass/Vol] 12.0 g/dL Low 13.0-17.0 [facility] Comment on above: Order Comment: Speci men Type: BLOOD SPECIMEN Ordering Facility: [facility] Address: [address] [place] [address] Performed By: #### 5 8410-2 #### [facility] CLIA [id number] [address] MCH (RBC) [Entitic mass] 29.8 pg Normal 26.0-34.0 [facility] Comment on above: Order Comment: Speci men Type: BLOOD SPECIMEN Ordering Facility: [facility] Address: [address] [place] [address] Performed By: #### 5 8410-2 #### [facility] CLIA [id number] [address] MCHC (RBC) [Mass/Vol] 33.1 g/dL Normal 30.5-36.0 [facility] Comment on above: Order Comment: Speci men Type: BLOOD SPECIMEN Ordering Facility: [facility] Address: [address] [place] [address] Performed By: #### 5 8410-2 #### [facility] CLIA [id number] [address] MCV (RBC) [Entitic vol] 89.8 fL Normal 80.0-100.0 [facility] Comment on above: Order Comment: Speci men Type: BLOOD SPECIMEN Ordering Facility: [facility] Address: [address] [place] [address] Performed By: #### 5 8410-2 #### [facility] CLIA [id number] [address] Nucleated RBC (Bld) [#/Vol] 10*3/uL Normal <0.01 [facility] Comment on above: Order Comment: Speci men Type: BLOOD SPECIMEN Ordering Facility: [facility] Address: [address] [place] [address] Performed By: #### 5 8410-2 #### [facility] CLIA [id number] [address] [place] Platelet mean volume (Bld) [Entitic vol] 11.7 fL Normal 9.0-12.7 [facility] Comment on above: Order Comment: Speci men Type: BLOOD SPECIMEN Ordering Facility: [facility] Address: [address] [place] [address] Performed By: #### 5 8410-2 #### [facility] CLIA [id number] [address] [place] Platelets (Bld) [#/Vol] 236 10*3/uL Normal 150-400 [facility] Comment on above: Order Comment: Speci men Type: BLOOD SPECIMEN Ordering Facility: [facility] Address: [address] [place] [address] Performed By: #### 5 8410-2 #### [facility] CLIA [id number] [address] [place] RBC (Bld) [#/Vol] 4.03 10*6/uL Low 4.20-6.00 [facility] Comment on above: Order Comment: Speci men Type: BLOOD SPECIMEN Ordering Facility: [facility] Address: [address] [place] [address] Performed By: #### 5 8410-2 #### [facility] CLIA [id number] [address] [place] WBC (Bld) [#/Vol] 8.18 10*3/uL Normal 3.70-11.00 [facility] Comment on above: Order Comment: Speci men Type: BLOOD SPECIMEN Ordering Facility: [facility] Address: [address] [place] [address] Performed By: #### 5 8410-2 #### [facility] CLIA [id number] 1 [place] [address] [place] PT EDon 09-26-2024 PT ED HNO ID: [id number] Author: RANDEE HAGAN RPh Service: Pharmacy Author Type: Pharmacist Type: Patient Education Filed: 09/26/2024 11:35 Note Text: PHARMACY ANTICOAGULATION EDUCATION Patient Name: Alfonzo Simon Account #: Data Unavailable Admission Date: 09/23/2024 9:20 PM Date of Contact: September 26, 2024 Time of Contact: 11:35 AM Patient anticipated to be discharged on Apixaban as oral anticoagulation therapy. Anticoagulant history: Patient is new to anticoagulation therapy Indication for oral anticoagulation: deep vein thrombosis (DVT) and pulmonary embolus (PE) Anticoagulant education status: Patient disposition SNF, LTACH, or hospice; anticoagulation education not indicated at this time. Please re-consult pharmacy if inpatient anticoagulation is needed. Randee Hagan RPh Normal [facility] THERAPY NTon 09-26-2024 THERAPY NT HNO ID: [id number] Author: SHAYNE NAIK, PT Service: Physical Therapy Author Type: Physical Therapist Type: Therapy (PT/OT/Speech/Resp) Filed: 09/26/2024 16:57 Note Text: Physical Therapy Evaluation Summary SERVICE DATE: 09/26/2024 SERVICE TIME: 1527 to 1550 ROOM: [id number] PT 6 Clicks Score: 10 DISCHARGE RECOMMENDATIONS Subacute/SNF Recommended Discharge Disposition Comments: patient far below baseline of ambulatory at walker Recommended Discharge Disposition Due to: Functional deficits requiring ongoing therapy service prior to discharge home. ASSESSMENT Response to Therapy Interventions: Good Participation in Activities PRECAUTIONS Fall Risk, Bed/Chair Alarm CURRENT HOSPITAL COURSE Pt found to have SOB. Found to have B PEs, B L DVTs, started on heparin. Neuro approved him being on anticoagulant, if needs longterm they recc may benefit from IVC filter Relevant Past Medical History: HTN, parkinsonism, obesity, SDA, 04/2024 SAH s/p crani, CVA, R frontotemporal crani and excision meningioma HOME LIVING Patient Lives With: Spouse () Assistance Available: 24-Hour Entry To Home: Stairs, With Rail Number Of Stairs Into Home: 5 (in the back has railings) Number Of Stairs To Bed/Bath: flight Stairs to Bed/Bath with: Unilateral Rail Tub/Shower Type: tub shower with seat Laundry: basement Equipment Owned: Shower Chair, Walker- Wheeled (transport W/C) PRIOR FUNCTIONAL LEVEL Required Assistance Assistance Required With: Transportation, Shopping, Safety, Self Care, Laundry, Cleaning, Meals, Medication Management Pt recently had SAH and crani did acute rehab, SNF 2x by the end of august, transitioned to staying at [facility] for about a week prior to being readmitted for current medical issues. Pt was getting help for ADLs and mobility from since being home; prior to SAH independent with device SUBJECTIVE Pleasant and agreeable to PT. THERAPY DIAGNOSIS Reduced mobility-other, Muscle Weakness (generalized), Unsteadiness on feet, Abnormalities of gait and mobility-other, General symptoms and signs-other, Difficulty walking-musculoskele mable TREATMENT INTERVENTIONS Evaluation, Therapeutic Activity (98558) Timed Code Treatment (minutes): 8 Skilled Treatment Time (minutes): 23 $ Evaluation-Moderate (03616) Billed Units: 1 unit Therapeutic Activity (59507) Treatment Minutes: 8 $ Therapeutic Activity (88105) Billed Units: 1 unit See grid as well as balance and activity tolerance section(s) for functional mobility facilitated and education provided. Education regarding importance of continued and progressive mobility with staff assist to prevent hospital acquired weakness. Education on fall prevention. Up with assist only. Oriented to call light. Educated discharge recommendation/ratio [place]. TRAINING AND EDUCATION PROVIDED Anatomy and Impact on Deficits, Assistive Device Use, Bed Mobility, Benefits of In-Hospital Mobility, Discharge Planning, Equipment, Expected Functional Level, Falls Prevention, Gait Pattern, Reduction of Deviations, Role of Physical Therapy, Sitting Balance, Transfers, Standing Balance THERAPEUTIC SKILLS USED Activity Dosing, Cues for Sequencing/Proper Technique for Activity, Cuing Verbal, Movement Facilitation, Muscle Activation Facilitation, Physical Assist, Postural Alignment Correction FUNCTIONAL STATUS Bed Mobility Supine To Sit: Maximal Assistance, Additional Information instructed technique, assist to guide BLE to EOB and elevate trunk Scooting: Stand By Assistance, Additional Information increased time/effort, able to position at EOB and in chair Transfers Sit To Stand: Maximal Assistance, Additional Information assist forward weight shift, cues to power through BLE, assist to lift, elevated surface Stand To Sit: Moderate Assistance, Additional Information cues to reach hands back and sit slowly Bed to Chair Moderate Assistance, Additional Information Bed To Chair Transfer Type: Stepping Bed To Chair Transfer Equipment: Wheeled Walker, Gait Belt cues for upright posture, sequrencing and stepping at walker, assist balance Gait Stairs ROM Right Lower Extremity ROM Comments: WFL Left Lower Extremity ROM Comments: WFL STRENGTH Right Lower Extremity Strength Comments: 4/5 Left Lower Extremity Strength Comments: 3/5 BALANCE Static Sitting Balance: Good Dynamic Sitting Balance: Good Static Standing Balance: Fair Dynamic Standing Balance: Poor ACTIVITY TOLERANCE Sitting Activity: at EOB with cues for upright posture, initially CGA progressing to supervision Sitting Activity Tolerance (in minutes): 8 Standing Activity: at walker with moderate assist for balance Standing Activity Tolerance (in minutes): 2 GOALS Able to Perform HEP with: Verbal Cues Only (BLE general strengthening) Transfer Supine to/from Sit with: Minimal Assistance Transfer Sit to/from Stand with (more content not included)... Normal [facility] aPTT PPPon 09-26-2024 aPTT Coag (PPP) [Time] 52.4 s High 23.0-32.4 [facility] Comment on above: Order Comment: Speci men Type: BLOOD SPECIMEN Ordering Facility: [facility] Address: [address] [place] [address] Performed By: #### 1 4979-9 #### [facility] CLIA [id number] [address] [place] [address] [place] [facility] CBC panel Auto (Bld)on 09-25 Erythrocyte distribution width (RBC) [Ratio] 14.4 % Normal 11.5-15.0 [facility] Comment on above: Order Comment: Speci men Type: BLOOD SPECIMEN Ordering Facility: [facility] Address: [address] [place] [address] Performed By: #### 5 8410-2 #### [facility] CLIA [id number] [address] [place] [address] [place] Hematocrit (Bld) [Volume fraction] 38.3 % Low 39.0-51.0 [facility] Comment on above: Order Comment: Speci men Type: BLOOD SPECIMEN Ordering Facility: [facility] Address: [address] [place] [address] Performed By: #### 5 8410-2 #### [facility] CLIA [id number] [address] Hemoglobin (Bld) [Mass/Vol] 12.4 g/dL Low 13.0-17.0 [facility] Comment on above: Order Comment: Speci men Type: BLOOD SPECIMEN Ordering Facility: [facility] Address: [address] [place] [address] Performed By: #### 5 8410-2 #### [facility] CLIA [id number] [address] MCH (RBC) [Entitic mass] 29.5 pg Normal 26.0-34.0 [facility] Comment on above: Order Comment: Speci men Type: BLOOD SPECIMEN Ordering Facility: [facility] Address: [address] [place] [address] Performed By: #### 5 8410-2 #### [facility] CLIA [id number] [address] MCHC (RBC) [Mass/Vol] 32.4 g/dL Normal 30.5-36.0 [facility] Comment on above: Order Comment: Speci men Type: BLOOD SPECIMEN Ordering Facility: [facility] Address: [address] [place] [address] Performed By: #### 5 8410-2 #### [facility] CLIA [id number] [address] MCV (RBC) [Entitic vol] 91.0 fL Normal 80.0-100.0 [facility] Comment on above: Order Comment: Speci men Type: BLOOD SPECIMEN Ordering Facility: [facility] Address: [address] [place] [address] Performed By: #### 5 8410-2 #### [facility] CLIA [id number] [address] Nucleated RBC (Bld) [#/Vol] 10*3/uL Normal <0.01 [facility] Comment on above: Order Comment: Speci men Type: BLOOD SPECIMEN Ordering Facility: [facility] Address: [address] [place] [address] Performed By: #### 5 8410-2 #### [facility] CLIA [id number] [address] Platelet mean volume (Bld) [Entitic vol] 11.3 fL Normal 9.0-12.7 [facility] Comment on above: Order Comment: Speci men Type: BLOOD SPECIMEN Ordering Facility: [facility] Address: [address] [place] [address] Performed By: #### 5 8410-2 #### [facility] CLIA [id number] [address] [place] Platelets (Bld) [#/Vol] 196 10*3/uL Normal 150-400 [facility] Comment on above: Order Comment: Speci men Type: BLOOD SPECIMEN Ordering Facility: [facility] Address: [address] [place] [address] Performed By: #### 5 8410-2 #### [facility] CLIA [id number] [address] [place] RBC (Bld) [#/Vol] 4.21 10*6/uL Normal 4.20-6.00 [facility] Comment on above: Order Comment: Speci men Type: BLOOD SPECIMEN Ordering Facility: [facility] Address: [address] [place] [address] Performed By: #### 5 8410-2 #### [facility] CLIA [id number] [address] [place] WBC (Bld) [#/Vol] 9.15 10*3/uL Normal 3.70-11.00 [facility] Comment on above: Order Comment: Speci men Type: BLOOD SPECIMEN Ordering Facility: [facility] Address: [address] [place] [address] Performed By: #### 5 8410-2 #### [facility] CLIA [id number] [address] [place] ECHOon 09-25-2024 Echocardiography Echocardiography Report: Transthoracic Echo [facility] Date of service: 09/25/2024 1:28:02 PM [facility] Ordering physician: ROSEANNA STEPHENS Indication: LV Function Technologist: Britney Hartman Interpreting physician: Agustín Nielson MD PATIENT: Name: MR. ALFONZO SIMON : 1960 Age: 64 years Gender: M History of hypertension, dyslipidemia and obesity. Primary rhythm: sinus. Height: 182.90 cm BSA: 2.58 m Weight: 130.60 kg BMI: 39.0 kg/m Heart rate 67 bpm Blood pressure 129/76 mmHg Technically difficult exam due to suboptimal positioning, body habitus and Pt breathing heavily. Color Doppler was utilized to interrogate the cardiac valves assessed and spectral Doppler was utilized to determine the flow velocities and pressure gradients reported in this exam. MEASUREMENTS: Value Indexed Normal LV ID (diastole) 3.6 cm (2D) 1.41 cm/m LV ID (systole) 2.8 cm (2D) 1.10 cm/m IVS, leaflet tips 1.5 cm (2D) Posterior wall thickness 1.1 cm (2D) Left ventricular mass 163 g (2D) 63 g/m LV stroke volume 98 ml (2D 4-ch.) LV end diastolic volume 186 ml (2D 4-ch.) 72.1 ml/m 34<=EDVi<75 LV end systolic volume 88 ml (2D 4-ch.) 34.1 ml/m Ejection Fraction 53 % (2D 4-ch.) EF > 52 FINDINGS: LEFT VENTRICLE The left ventricle is normal in size. There is mild upper septal left ventricular hypertrophy. Left ventricular systolic function is normal globally. Left ventricular diastolic function was not evaluated due to inconsistent or technically suboptimal data. Definity contrast used for endocardial border detection. Wall Motion: All scored segments are normal. RIGHT VENTRICLE Estimated right ventricular systolic pressure is 33 mmHg consistent with normal pulmonary artery pressures. Estimated right atrial pressure is 8 mmHg based on IVC assessment. RIGHT ATRIUM Inferior Vena Cava: The inferior vena cava appears dilated measuring 2.6 cm. The vessel decreases greater than 50 percent with inspiration. TRICUSPID VALVE The tricuspid valve leaflets are structurally normal. There is mild (1+) tricuspid valve regurgitation. AORTIC VALVE The aortic valve cusps are structurally normal. There is no aortic valve regurgitation. Tricuspid aortic valve. PULMONIC VALVE The pulmonic valve was not seen or not interrogated. PULMONARY ARTERIES The pulmonary arteries are unseen or not interrogated. PERICARDIUM There is no pericardial effusion. CONCLUSIONS: - Technically difficult exam due to suboptimal positioning, body habitus and Pt breathing heavily. - Exam indication: LV Function - The left ventricle is normal in size. There is mild upper septal left ventricular hypertrophy. Left ventricular systolic function is normal. EF = 53 5% (2D 4-ch.) Definity contrast used for endocardial border detection. Left ventricular diastolic function was not evaluated due to inconsistent or technically suboptimal data. - Exam was compared with the prior CC echocardiographic exam performed on 04/17/24. There is no significant change. * * * Final * * * [employer] : [id number] UID Normal [facility] THERAPY NTon 09-25-2024 THERAPY NT HNO ID: [id number] Author: CATRACHITA BRANHAM OTR/Juan Antonio Service: Occupational Therapy Author Type: Occupational Therapist Type: Therapy (PT/OT/Speech/Resp) Filed: 09/25/2024 16:47 Note Text: Occupational Therapy Evaluation Summary SERVICE DATE: 09/25/2024 SERVICE TIME: 1500 to 1556 ROOM: [place] [address] OT 6 Clicks Score: 14 DISCHARGE RECOMMENDATIONS Subacute/SNF Recommended Discharge Disposition Comments: Pt is below his baseline with new signficant medical problems affecting his function Recommended Discharge Disposition Due to: Functional deficits requiring ongoing therapy service prior to discharge home., ADL impairment, Requires multiple therapy disciplines ASSESSMENT Response to Therapy Interventions: Good Participation in Activities, Improved Tolerance for Activity, Low Activity Tolerance, Multiple Ongoing Medical Issues, Requires Additional Time to Complete Activities Facilitated supine to edge of bed, pt initially woozy but improves as pt sits up. Pt assisted to stand to wheeled walker from raised bed height and take effortful sidesteps along edge of bed to head of bed. Assisted to lie back down with heavy assist. Pt's O2 sat pre/post activity was 98%/96% on 2 liters. Discussed difference between [place] and SNF, pt would prefer going back to his SNF he has been to 2x. Located and set up bedside commode, it was a drop arm and drop arm was malfunctioning so got another bedside commode and left in room. Communicated Ax2 to bedside commode with wheeled walker on whiteboard. PRECAUTIONS Fall Risk, Bed/Chair Alarm CURRENT HOSPITAL COURSE Pt found to have SOB. Found to have B PEs, B L DVTs, started on heparin. Neuro approved him being on anticoagulant, if needs longterm they recc may benefit from IVC filter Relevant Past Medical History: HTN, parkinsonism, obesity, SDA, 04/2024 SAH s/p crani, CVA, R frontotemporal crani and excision meningioma HOME LIVING Patient Lives With: Spouse () Assistance Available: 24-Hour Entry To Home: Stairs, With Rail Number Of Stairs Into Home: 5 (in the back has railings) Number Of Stairs To Bed/Bath: flight Stairs to Bed/Bath with: Unilateral Rail Tub/Shower Type: tub shower with seat Laundry: basement Equipment Owned: Shower Chair, Walker- Wheeled (transport W/C) PRIOR FUNCTIONAL LEVEL Required Assistance Assistance Required With: Transportation, Shopping, Safety, Self Care, Laundry, Cleaning, Meals, Medication Management Pt recently had SAH and crani did acute rehab, SNF 2x by the end of august, transitioned to staying at [facility], home for about a week prior to being readmitted for current medical issues. Pt was getting help for ADLs and mobility from since being home Baseline Cognition: Oriented to self, Oriented to place, Oriented to time, Oriented to situation SUBJECTIVE Pt agreeable to work with OT, cooperative and participative COGNITION Responsiveness: Alert, Awake Follows Commands: 2-step Commands Executive Function Deficits: Safety Awareness, Problem Solving, Insight to Deficits, Judgement THERAPY DIAGNOSIS Reduced mobility-other, Decreased activities of daily living (ADL), Muscle Weakness (generalized), Unsteadiness on feet, Abnormalities of gait and mobility-other TREATMENT INTERVENTIONS Evaluation, Self Snf Management (94828) Timed Code Treatment (minutes): 30 Skilled Treatment Time (minutes): 50 $ Evaluation - Moderate (79857) Billed Units: 1 unit Self Snf Management (77003) Treatment Minutes: 30 $ Self Snf Management (75635) Billed Units: 2 units TRAINING AND EDUCATION PROVIDED Bed Mobility, Adaptive Equipment/DME THERAPEUTIC SKILLS USED Activity Dosing, Assessment of Tolerance Including Vitals Response to Activity, Cuing Tactile, Cues for Sequencing/Proper Technique for Activity, Cuing Visual, Cuing Verbal, Physical Assist, Therapeutic Use of Self FUNCTIONAL STATUS Activities of Daily Living Assist Level Additional Information Feeding Independent Grooming Moderate Assistance Bathing Upper Body Moderate Assistance Bathing Lower Body Maximal Assistance Dressing Upper Body Moderate Assistance Dressing Lower Body Maximal Assistance Toileting Maximal Assistance Mobility Assist Level Additional Information Bed Mobility Supine To Sit: Moderate Assistance Sit To Supine: Moderate Assistance Sit to Stand Moderate Assistance, Additional Information from raised height of bed Stand to Sit Minimal Assistance Bed to Chair Toilet/Commode Shower Functional Mobility Moderate Assistance, Additional Information Functional Mobility Device: Wheeled Walker sidesteps along EOB Range of Motion: Upper Extremity Comments R Upper Extremity ROM Comments: WFL AROM L Upper Extremity ROM Comments: shoulder 60 AROM, distally intact but increased tone Strength: Upper Extremity Comments Right Upper Extremity Strength Comments: 4+/5 Left Upper Extremit (more content not included)... Normal [facility] aPTT PPPon 09-25-2024 aPTT Coag (PPP) [Time] 66.2 s High 23.0-32.4 [facility] Comment on above: Order Comment: Speci men Type: BLOOD SPECIMENOrdering Facility: [facility] Address: [address] [place] [address] Performed By: #### 1 4979-9 ####[facility] [id number] [place] [address] [place] Basic metabolic 2000 panelon 09-24-2024 Anion gap [Moles/Vol] 11 mmol/L Normal 8-15 [facility] Comment on above: Order Comment: Speci men Type: BLOOD SPECIMEN Order[facility] Address: [address] [place] [address] Performed By: #### 1 4979-9 #### [facility] CLIA [id number] 1 [place] [address] [place] Calcium [Mass/Vol] 8.5 mg/dL Normal 8.5-10.2 [facility] Comment on above: Order Comment: Speci men Type: BLOOD SPECIMEN Ordering Facility: [facility] Address: [address] [place] [address] Performed By: #### 1 4979-9 #### [facility] CLIA [id number] [address] [place] Chloride [Moles/Vol] 109 mmol/L High 98-107 [facility] Comment on above: Order Comment: Speci men Type: BLOOD SPECIMEN Ordering Facility: [facility] Address: [address] [place] [address] Performed By: #### 1 4979-9 #### [facility] CLIA [id number] [address] [place] CO2 [Moles/Vol] 24 mmol/L Normal 22-30 [facility] Comment on above: Order Comment: Speci men Type: BLOOD SPECIMEN Ordering Facility: [facility] Address: [address] [place] [address] Performed By: #### 1 4979-9 #### [facility] CLIA [id number] [address] OF [facility] Creatinine [Mass/Vol] 0.89 mg/dL Normal 0.73-1.22 [facility] Comment on above: Order Comment: Speci men Type: BLOOD SPECIMEN Ordering Facility: [facility] Address: [address] [place] [address] Performed By: #### 1 4979-9 #### [facility] CLIA [id number] [address] [place] [address] Creatinine and Glomerular filtration rate.predicted panel (S/P/Bld) 95 mL/min/1.73m??? Normal >=60 [facility] Comment on above: Order Comment: Speci men Type: BLOOD SPECIMEN Ordering Facility: [facility] Address: [address] [place] [address] Result Comment: Josseline mated Glomerular Filtration Rate [...] accurately reflect actual GFR. Performed By: #### 1 4979-9 #### [facility] CLIA [id number] [address] [place] [address] [place] Glucose [Mass/Vol] 106 mg/dL High 74-99 [facility] Comment on above: Order Comment: Gemini olson Type: BLOOD SPECIMEN Ordering Facility: [facility] Address: [address] [place] [address] Result Comment: The [place] [employer] (ADA) provides guidance for cutoff [...] Standards of Medical Care in Diabetes 2016, [place] [employer]. Diabetes Care. 2016.39(Suppl 1). Performed By: #### 1 4979-9 #### [facility] CLIA [id number] [address] [place] [address] [place] Potassium [Moles/Vol] 3.9 mmol/L Normal 3.7-5.1 [facility] Comment on above: Order Comment: Gemini olson Type: BLOOD SPECIMEN Ordering Facility: [facility] Address: [address] [place] [address] Performed By: #### 1 4979-9 #### [facility] CLIA [id number] [address] [place] [address] [place] Sodium [Moles/Vol] 144 mmol/L Normal 136-144 [facility] Comment on above: Order Comment: Gemini loson Type: BLOOD SPECIMEN Ordering Facility: [facility] Address: [address] [place] [address] Performed By: #### 1 4979-9 #### [facility] CLIA [id number] [address] [place] Urea nitrogen [Mass/Vol] 15 mg/dL Normal 9-24 [facility] Comment on above: Order Comment: Speci men Type: BLOOD SPECIMEN Ordering Facility: [facility] Address: [address] [place] [address] Performed By: #### 1 4979-9 #### [facility] CLIA [id number] [address] [place] CBC W Auto Differential pane l (Bld)on 09-24-2024 Basophils (Bld) [#/Vol] 0.03 10*3/uL Normal <0.11 [facility] Comment on above: Order Comment: Speci men Type: BLOOD SPECIMEN Ordering Facility: [facility] Address: [address] [place] [address] Performed By: #### 1 4979-9 #### [facility] CLIA [id number] [address] [place] [address] STATES [place] [facility] Basophils/100 WBC (Bld) 0.3 % Normal [facility] Comment on above: Order Comment: Speci men Type: BLOOD SPECIMEN Ordering Facility: [facility] Address: [address] [place] [address] Performed By: #### 1 4979-9 #### [facility] CLIA [id number] [address] Differential cell count method Nom (Bld) Auto Normal [facility] Comment on above: Order Comment: Speci men Type: BLOOD SPECIMEN Ordering Facility: [facility] Address: [address] [place] [address] Performed By: #### 1 4979-9 #### [facility] CLIA [id number] [address] [place] Eosinophils (Bld) [#/Vol] 0.21 10*3/uL Normal <0.46 [facility] Comment on above: Order Comment: Speci men Type: BLOOD SPECIMEN Ordering Facility: [facility] Address: [address] [place] [address] Performed By: #### 1 4979-9 #### [facility] CLIA [id number] [address] [place] Eosinophils/100 WBC (Bld) 1.9 % Normal [facility] Comment on above: Order Comment: Speci men Type: BLOOD SPECIMEN Ordering Facility: [facility] Address: [address] [place] [address] Performed By: #### 1 4979-9 #### [facility] CLIA [id number] [address] [place] Erythrocyte distribution width (RBC) [Ratio] 14.6 % Normal 11.5-15.0 [facility] Comment on above: Order Comment: Speci men Type: BLOOD SPECIMEN Ordering Facility: [facility] Address: [address] [place] [address] Performed By: #### 1 4979-9 #### [facility] CLIA [id number] [address] [place] Hematocrit (Bld) [Volume fraction] 41.2 % Normal 39.0-51.0 [facility] Comment on above: Order Comment: Speci men Type: BLOOD SPECIMEN Ordering Facility: [facility] Address: [address] [place] [address] Performed By: #### 1 4979-9 #### [facility] CLIA [id number] [address] [place] Hemoglobin (Bld) [Mass/Vol] 13.4 g/dL Normal 13.0-17.0 [facility] Comment on above: Order Comment: Speci men Type: BLOOD SPECIMEN Ordering Facility: [facility] Address: [address] [place] [address] Performed By: #### 1 4979-9 #### [facility] CLIA [id number] [address] OF [place] Immature granulocytes (Bld) [#/Vol] 0.06 10*3/uL Normal <0.10 [facility] Comment on above: Order Comment: Speci men Type: BLOOD SPECIMEN Ordering Facility: [facility] Address: [address] [place] [address] Performed By: #### 1 4979-9 #### [facility] CLIA [id number] [address] Immature granulocytes/100 WBC (Bld) 0.5 % Normal [facility] Comment on above: Order Comment: Speci men Type: BLOOD SPECIMEN Ordering Facility: [facility] Address: [address] [place] [address] Performed By: #### 1 4979-9 #### [facility] CLIA [id number] [address] [place] Lymphocytes (Bld) [#/Vol] 1.22 10*3/uL Normal 1.00-4.00 [facility] Comment on above: Order Comment: Speci men Type: BLOOD SPECIMEN Ordering Facility: [facility] Address: [address] [place] [address] Performed By: #### 1 4979-9 #### [facility] CLIA [id number] [address] Lymphocytes/100 WBC (Bld) 10.8 % Normal [facility] Comment on above: Order Comment: Speci men Type: BLOOD SPECIMEN Ordering Facility: [facility] Address: [address] [place] [address] Performed By: #### 1 4979-9 #### [facility] CLIA [id number] [address] [place] [address] [place] MCH (RBC) [Entitic mass] 29.7 pg Normal 26.0-34.0 [facility] Comment on above: Order Comment: Speci men Type: BLOOD SPECIMEN Ordering Facility: [facility] Address: [address] [place] [address] Performed By: #### 1 4979-9 #### [facility] CLIA [id number] [address] [place] MCHC (RBC) [Mass/Vol] 32.5 g/dL Normal 30.5-36.0 [facility] Comment on above: Order Comment: Speci men Type: BLOOD SPECIMEN Ordering Facility: [facility] Address: [address] [place] [address] Performed By: #### 1 4979-9 #### [facility] CLIA [id number] [address] OF [facility] MCV (RBC) [Entitic vol] 91.4 fL Normal 80.0-100.0 [facility] Comment on above: Order Comment: Speci men Type: BLOOD SPECIMEN Ordering Facility: [facility] Address: [address] [place] [address] Performed By: #### 1 4979-9 #### [facility] CLIA [id number] [address] [place] Monocytes (Bld) [#/Vol] 0.94 10*3/uL High <0.87 [facility] Comment on above: Order Comment: Speci men Type: BLOOD SPECIMEN Ordering Facility: [facility] Address: [address] [place] [address] Performed By: #### 1 4979-9 #### [facility] CLIA [id number] [address] Monocytes/100 WBC (Bld) 8.4 % Normal [facility] Comment on above: Order Comment: Speci men Type: BLOOD SPECIMEN Ordering Facility: [facility] Address: [address] [place] [address] Performed By: #### 1 4979-9 #### [facility] CLIA [id number] [address] [place] Neutrophils (Bld) [#/Vol] 8.79 10*3/uL High 1.45-7.50 [facility] Comment on above: Order Comment: Speci men Type: BLOOD SPECIMEN Ordering Facility: [facility] Address: [address] [place] [address] Performed By: #### 1 4979-9 #### [facility] CLIA [id number] [address] [place] Neutrophils/100 WBC (Bld) 78.1 % Normal [facility] Comment on above: Order Comment: Speci men Type: BLOOD SPECIMEN Ordering Facility: [facility] Address: [address] [place] [address] Performed By: #### 1 4979-9 #### [facility] CLIA [id number] [address] [place] Nucleated RBC (Bld) [#/Vol] 10*3/uL Normal <0.01 [facility] Comment on above: Order Comment: Speci men Type: BLOOD SPECIMEN Ordering Facility: [facility] Address: [address] [place] [address] Performed By: #### 1 4979-9 #### [facility] CLIA [id number] [address] [place] Nucleated RBC/100 WBC (Bld) [Ratio] 0.0 /100 WBC Normal [facility] Comment on above: Order Comment: Speci men Type: BLOOD SPECIMEN Ordering Facility: [facility] Address: [address] [place] [address] Performed By: #### 1 4979-9 #### [facility] CLIA [id number] [address] [place] Platelet mean volume (Bld) [Entitic vol] 12.1 fL Normal 9.0-12.7 [facility] Comment on above: Order Comment: Speci men Type: BLOOD SPECIMEN Ordering Facility: [facility] Address: [address] [place] [address] Performed By: #### 1 4979-9 #### [facility] CLIA [id number] [address] [place] Platelets (Bld) [#/Vol] 218 10*3/uL Normal 150-400 [facility] Comment on above: Order Comment: Speci men Type: BLOOD SPECIMEN Ordering Facility: [facility] Address: [address] [place] [address] Performed By: #### 1 4979-9 #### [facility] CLIA [id number] [address] RBC (Bld) [#/Vol] 4.51 10*6/uL Normal 4.20-6.00 [facility] Comment on above: Order Comment: Speci men Type: BLOOD SPECIMEN Ordering Facility: [facility] Address: [address] [place] [address] Performed By: #### 1 4979-9 #### [facility] CLIA [id number] [address] OF [facility] WBC (Bld) [#/Vol] 11.25 10*3/uL High 3.70-11.00 [facility] Comment on above: Order Comment: Speci men Type: BLOOD SPECIMEN Ordering Facility: [facility] Address: [address] [place] [address] Performed By: #### 1 4979-9 #### [facility] CLIA [id number] [address] CBC panel Auto (Bld)on 09-24 Erythrocyte distribution width (RBC) [Ratio] 14.4 % Normal 11.5-15.0 [facility] Comment on above: Order Comment: Speci men Type: BLOOD SPECIMEN Ordering Facility: [facility] Address: [address] [place] [address] Performed By: #### 1 4979-9 #### [facility] CLIA [id number] [address] Hematocrit (Bld) [Volume fraction] 40.5 % Normal 39.0-51.0 [facility] Comment on above: Order Comment: Speci men Type: BLOOD SPECIMEN Ordering Facility: [facility] Address: [address] [place] [address] Performed By: #### 1 4979-9 #### [facility] CLIA [id number] [address] Hemoglobin (Bld) [Mass/Vol] 13.3 g/dL Normal 13.0-17.0 [facility] Comment on above: Order Comment: Speci men Type: BLOOD SPECIMEN Ordering Facility: [facility] Address: [address] [place] [address] Performed By: #### 1 4979-9 #### [facility] CLIA [id number] [address] MCH (RBC) [Entitic mass] 29.6 pg Normal 26.0-34.0 [facility] Comment on above: Order Comment: Speci men Type: BLOOD SPECIMEN Ordering Facility: [facility] Address: [address] [place] [address] Performed By: #### 1 4979-9 #### [facility] CLIA [id number] [address] MCHC (RBC) [Mass/Vol] 32.8 g/dL Normal 30.5-36.0 [facility] Comment on above: Order Comment: Speci men Type: BLOOD SPECIMEN Ordering Facility: [facility] Address: [address] [place] [address] Performed By: #### 1 4979-9 #### [facility] CLIA [id number] [address] MCV (RBC) [Entitic vol] 90.2 fL Normal 80.0-100.0 [facility] Comment on above: Order Comment: Speci men Type: BLOOD SPECIMEN Ordering Facility: [facility] Address: [address] [place] [address] Performed By: #### 1 4979-9 #### [facility] CLIA [id number] [address] Nucleated RBC (Bld) [#/Vol] 10*3/uL Normal <0.01 [facility] Comment on above: Order Comment: Speci men Type: BLOOD SPECIMEN Ordering Facility: [facility] Address: [address] [place] [address] Performed By: #### 1 4979-9 #### [facility] CLIA [id number] [address] Platelet mean volume (Bld) [Entitic vol] 11.6 fL Normal 9.0-12.7 [facility] Comment on above: Order Comment: Speci men Type: BLOOD SPECIMEN Ordering Facility: [facility] Address: [address] [place] [address] Performed By: #### 1 4979-9 #### [facility] CLIA [id number] [address] OF [facility] Platelets (Bld) [#/Vol] 218 10*3/uL Normal 150-400 [facility] Comment on above: Order Comment: Speci men Type: BLOOD SPECIMEN Ordering Facility: [facility] Address: [address] [place] [address] Performed By: #### 1 4979-9 #### [facility] CLIA [id number] [address] RBC (Bld) [#/Vol] 4.49 10*6/uL Normal 4.20-6.00 [facility] Comment on above: Order Comment: Speci men Type: BLOOD SPECIMEN Ordering Facility: [facility] Address: [address] [place] [address] Performed By: #### 1 4979-9 #### [facility] CLIA [id number] [address] WBC (Bld) [#/Vol] 12.43 10*3/uL High 3.70-11.00 [facility] Comment on above: Order Comment: Speci men Type: BLOOD SPECIMEN Ordering Facility: [facility] Address: [address] [place] [address] Performed By: #### 1 4979-9 #### [facility] CLIA [id number] [address] CONSULTon 09-24-2024 CONSULT HNO ID: [id number] Author: DEMETRICE RIVERS MD Service: Neurology General Author Type: Physician Type: Consults Filed: 09/24/2024 14:23 Note Text: NEUROLOGY CONSULT SERVICE INITIAL CONSULT NOTE REASON FOR CONSULT: Anticoagulation in setting of possible cerebral amyloid angiopathy HPI: Alfonzo Simon is a 64 year old with hx of atrial flutter, ground level fall with Right subdural hematoma, Right frontal subarachnoid hemorrhage, s/p right craniotomy evacuation with postop course complicated by acute ischemic stroke with bilateral cortical infarcts with residual left arm in April, presents with shortness of breath. Patient was found to have multiple subsegmental pulmonary emboli and DVT on evaluation. Heparin gtt was started. Neurology consulted given hx of microbleeds on MRI, previous traumatic ICH, and question of AC safety. Objective: BP 144/69 Pulse (!) 99 Temp 37.7 ?C (99.8 ?F) (Oral) Resp 17 Ht 182.9 cm (6') Wt 130.6 kg (288 lb) SpO2 95% BMI 39.06 kg/m? NEUROLOGICAL EXAM: General: Well-developed well-nourished, in no acute distress HEENT: Normocephalic, atraumatic. Sclerae anicteric. ororpharynx clear. Extremities: No edema Skin: No rash Neurological: Awake, alert, speech fluent, naming and repetition normal. Language and comprehension normal, no dysarthria. Oriented to time and place. Cranial Nerves: PERRL, extraocular movements full without nystagmus, Visual thayer full. Facial movements normal. See below for facial sensation. Motor: AG in all extremities, 4/5 in [place]. Normal bulk and tone. No pronator drift or tremor. Sensation: Intact light touch, no asymmetry. Facial sensation normal. Coordination: Finger to nose intact. DATA: LABS: Reviewed in [facility] Recent Lab Values 04/18/2024 04/18/2024 12:38 PM 2:54 PM LDL 57 59 HDL 54 56 Comment for LDL at 12:38 PM on 04/18/2024: <100 mg/dL, Optimal 100-129 mg/dL, Near optimal/above optimal 130-159 mg/dL, Borderline high 160-189 mg/dL, High >189 mg/dL, Very high Secondary prevention optimal LDL Cholesterol levels are recommended to be < 70 mg/dL Comment for LDL at 2:54 PM on 04/18/2024: <100 mg/dL, Optimal 100-129 mg/dL, Near optimal/above optimal 130-159 mg/dL, Borderline high 160-189 mg/dL, High >189 mg/dL, Very high Secondary prevention optimal LDL Cholesterol levels are recommended to be < 70 mg/dL Comment for HDL at 12:38 PM on 04/18/2024: 40-59 mg/dL, Acceptable >59 mg/dL, High: Negative risk factor for coronary heart disease <40 mg/dL, Low: Positive risk factor for coronary heart disease Comment for HDL at 2:54 PM on 04/18/2024: 40-59 mg/dL, Acceptable >59 mg/dL, High: Negative risk factor for coronary heart disease <40 mg/dL, Low: Positive risk factor for coronary heart disease IMAGING: CT head with no acute intracranial abnromalities MEDS: Current Facility-Administere d Medications Medication Dose Route Frequency Provider Last Rate Last Admin heparin iv infusion 25,000 units in NaCl 0.45% 250 mL STANDARD NOMOGRAM 0-3,000 Units/hr INTRAVENOUS CONTINUOUS Deedee Maxwell MD 16 mL/hr at 09/24/24 1145 1,600 Units/hr at 09/24/24 1145 And heparin RATE CHANGE bolus 1,000-10,000 Units for subtherapeutic PTTAC results 1,000-10,000 Units INTRAVENOUS PRN Deedee Maxwell MD sodium chloride 0.9 % (flush) 2-10 mL (BD POSIFLUSH) 2-10 mL INTRAVENOUS DIRECTED PRN Roseanna Stephens MD And perflutren lipid microspheres 1.1 mg/mL 1.3 mL injection (DEFINITY) 1.3 mL INTRAVENOUS DIRECTED PRN Roseanna Stephens MD amLODIPine 10 mg tab(s) (NORVASC) 10 mg ORAL DAILY Deedee Maxwell MD 10 mg at 09/24/24 0924 atorvastatin 20 mg tab(s) (LIPITOR) 20 mg ORAL DAILY Deedee Maxwell MD 20 mg at 09/24/24 0924 lisinopril 40 mg tab(s) (ZESTRIL) 40 mg ORAL DAILY Deedee Maxwell MD 40 mg at 09/24/24 0955 buPROPion XL 300 mg tab(s) (WELLBUTRIN XL) 300 mg ORAL DAILY Deedee Maxwell MD 300 mg at 09/24/24 0954 acetaminophen 1,000 mg tab(s) (TYLENOL) 1,000 mg ORAL q 8 H PRN Deedee Maxwell MD tamsulosin 0.4 mg cap(s) (FLOMAX) 0.4 mg ORAL AT BEDTIME Deedee Maxwell MD NaCl 0.9% iv flush bag 20 mL INTRAVENOUS PRN Deedee Maxwell MD sodium chloride 0.9 % (flush) 2-10 mL (BD POSIFLUSH) 2-10 mL INTRAVENOUS DIRECTED PRN Deedee Maxwell MD And perflutren lipid microspheres 1.1 mg/mL 1.3 mL injection (DEFINITY) 1.3 mL INTRAVENOUS DIRECTED PRN Deedee Maxwell MD miconazole 2 % 1 application topical powder 1 application TOPICAL BID Deedee Maxwell MD iv contrast (radiology procedure) INTRAVENOUS DIRECTED PRN Huber Gonzalez MD ASSESSMENT: Alfonzo Simon is a 64 year old with hx of atrial flutter, hx of traumatic SDH and SAH, embolic stroke suspected 2/2 to cardioembolism off AC presents for b/l PE and DVT. Patients previous MRIs show mixed picture of cortical and subcortical microhemorrhages rather than pure cortical ones. In literature mo (more content not included)... [facility] ECG COMPLETEon 09-24-2024 ECG COMPLETE Ventricular Rate : 88 BPM Atrial Rate : 88 BPM P-R Interval : 190 ms QRS Duration : 114 ms Q-T Interval : 382 ms QTC Calculation(Bazett) : 462 ms Calculated P Sachse : 40 degrees Calculated R Sachse : -46 degrees Calculated T Sachse : 109 degrees NORMAL SINUS RHYTHM INCOMPLETE RIGHT BUNDLE BRANCH BLOCK LEFT ANTERIOR FASCICULAR BLOCK MODERATE VOLTAGE CRITERIA FOR LVH, MAY BE NORMAL VARIANT ( R in aVL , Dong product ) SEPTAL INFARCT , AGE UNDETERMINED T WAVE ABNORMALITY, CONSIDER LATERAL ISCHEMIA ABNORMAL ECG NO PREVIOUS ECGS AVAILABLE Confirmed by GRAYSON BROTHERS, HILDA ([id number]) on 10/22/2024 7:14:54 PM NAME : ALFONZO SIMON PID : [id number] : 1960 Gender : Male Race : ORD : [id number] Procedure Date : Sep 24 2024 00:26:37 Edit Date : Oct 22 2024 19:15:00 Diagnosis: NORMAL SINUS RHYTHM INCOMPLETE RIGHT BUNDLE BRANCH BLOCK LEFT ANTERIOR FASCICULAR BLOCK MODERATE VOLTAGE CRITERIA FOR LVH, MAY BE NORMAL VARIANT ( R in aVL , [place] product ) SEPTAL INFARCT , AGE UNDETERMINED T WAVE ABNORMALITY, CONSIDER LATERAL ISCHEMIA ABNORMAL ECG NO PREVIOUS ECGS AVAILABLE Confirmed by HILDA GALICIA MD ([id number]) on 10/22/2024 7:14:54 PM Test Reason : Chest Pain Location : 4 : [facility] EM Overread By : HILDA GALICIA MD Edited By : HILDA GALICIA MD Referred By : , Acquired by : NIA SANCHEZ [facility] ED NOTEon 09-24-2024 ED NOTE HNO ID: [id number] Author: MASTER COSTELLO RN Service: Nursing Author Type: Registered Nurse Type: ED Notes Filed: 09/24/2024 10:30 Note Text: Heparin stopped. [facility] ED NOTE HNO ID: [id number] Author: MASTER COSTELLO RN Service: Nursing Author Type: Registered Nurse Type: ED Notes Filed: 09/24/2024 09:36 Note Text: . [facility] ED NOTE HNO ID: [id number] Author: MASTER COSTELLO RN Service: Nursing Author Type: Registered Nurse Type: ED Notes Filed: 09/24/2024 09:30 Note Text: Pt. Eating breakfast. [facility] ED NOTE HNO ID: [id number] Author: NIA SANCHEZ RN Service: Emergency Medicine Author Type: Registered Nurse Type: ED Notes Filed: 09/24/2024 03:05 Note Text: Patient has increased generalized weakness and fatigue. Dr. Castellanos notified at this time. [facility] ED NOTE HNO ID: [id number] Author: NIA SANCHEZ RN Service: Emergency Medicine Author Type: Registered Nurse Type: ED Notes Filed: 09/24/2024 03:03 Note Text: Attempted to call Ultrasound. No answer. Left voicemail that patient is ready for ultrasound at this time. [facility] ED NOTE HNO ID: [id number] Author: NIA SANCHEZ RN Service: Emergency Medicine Author Type: Registered Nurse Type: ED Notes Filed: 09/24/2024 03:02 Note Text: Patient saturated bedding in urine. Complete bedding change done at this time [facility] ED PROV NOTEon 09-24-2024 ED PROV NOTE HNO ID: [id number] Author: RAJAT HUSSEIN DO Service: Emergency Medicine Author Type: Resident Type: ED Provider Notes Filed: 10/01/2024 00:40 Note Text: Attestation signed by Rajat Hussein DO at 10/01/2024 12:40 AM I saw and evaluated the patient. Discussed with the resident and agree with resident's findings and plan as documented in the resident's note. ED CONTINUATION OF CARE NOTE Code Status: Prior Assumed care from: Dr. Patricia Bolaños Presentation / Findings / Interventions / Plan / Items to Follow Up: ED Course as of 09/24/24 0357 Zhao Castellanos's Documentation Sun Sep 24, 2024 0200 PERT team consulted, holding off on heparin in s/o sah, sdh will reevaluate. 0209 IR physician updated 0215 Per ICU resident, okay for heparin bolus and gtt. 0230 I spoke with IR physician Dr. Dyer again who presently does not feel patient is candidate for IR thrombectomy but he will review images again and call back. 0305 Patient getting mildly more tachypneic, tired although not meeting requirements for increased oxygenation or ventilation I notified interventional radiologist. Per his assessment, the thrombi are too distal and he is not a candidate for thrombectomy when assessing risk-benefit. I will update the ICU team at this time to confirm further management, disposition. 0307 Per discussion with ICU attending, patient likely stable for floor however final disposition pending at this time. Others' Documentation Sat Sep 23, 20242222 Notified Adult Protective Services of EMS concern. [ER] [place] Sep 24, [address] Mckeon evaluated the patient and recommended heparin since CTH in June showed resolution of his SAH/SDH [ES] ED Course User Index [ER] Patricia Bolaños MD [ES] Rajat Hussein DO Clinical Impressions as of 09/24/24 0357 Acute pulmonary embolism without acute cor pulmonale, unspecified pulmonary embolism type (HCC) Shortness of breath Hypoxia Elevated troponin Medical Decision Making This patient was signed out to me by Dr Bolaños. Please kindly see their note for further details regarding patient's initial presentation and workup. In summary this is a 64-year-old male presenting with shortness of breath with new 2 L NC O2 requirements. Leading concerns at this time are new onset CHF versus pulmonary embolism. Upon time of signout CT PE study is pending. There was troponin elevation from 37-63. Repeat EKG was obtained and does not reveal any acute findings, mildly more prominent T wave inversions in 1, aVL. Patient continues to deny any chest pain or pressure. Serial troponins thereafter from 63-91 as well. Notified by radiology that there is concerns for bilateral PEs. PERT team activated. Please see ED course. Patient was heparinized. Per ICU team, stable for medical floor for further evaluation management. Prior to the patient's final disposition, I reevaluated the patient and determined that they would benefit from inpatient admission for pulmonary embolism. [facility] service was contacted, with the patient being discussed and accepted under the care of Dr. Maxwell. At the time of final disposition, the patient is in a Stable condition, and maintaining stable vital signs appropriate for transfer and transport to inpatient admission. Disposition: Inpatient Admission SIGNATURE: Zhao Castellanos DO PATIENT NAME: Alfonzo Simon DATE: September 24, 2024 TIME: 3:54 AM PAGER/CONTACT #: ZHAO CASTELLANOS 09/24/24 035 RAJAT HUSSEIN 10/01/24 0040 [facility] ED PROV NOTE HNO ID: [id number] Author: RAJAT HUSSEIN DO Service: Emergency Medicine Author Type: Physician Type: ED Provider Notes Filed: 10/01/2024 00:40 Note Text: ED CONTINUATION OF CARE NOTE Code Status: Prior Assumed care from: Dr Gonzalez Presentation / Findings / Interventions / Plan / Items to Follow Up: Patient reassessed. He is resting comfortably. No CP. Increased in troponin likely secondary to demand from hypoxia. Repeat ECG without acute ischemia and similar to prior. We are awaiting CT results to rule out PE and other causes of SOB. CV:RRR Lungs: diminished, no wheezes Abd: soft, NT/ND, +BS Ext: 2+ edema, equal peripheral pulses. Addendum 0216: CT +PE; PERT team activated, ICU consulted and did recommend heparin. Patient updated on results. ED Course as of 10/01/24 0040 Rajat Hussein's Documentation Sun Sep 24, [address] Mckeon evaluated the patient and recommended heparin since CTH in June showed resolution of his SAH/SDH Others' Documentation Sat Sep 23, 20243 Notified Adult Protective Services of EMS concern. [ER] Sun Sep 24, 2024 0200 PERT team consulted, holding off on heparin in s/o sah, sdh will reevaluate. [JM] 0209 IR physician updated [JM] 0215 Per ICU resident, okay for heparin bolus and gtt. [JM] 0230 I spoke with IR physician Dr. Dyer again who presently does not feel patient is candidate for IR thrombectomy but he will review images again and call back. [JM] 0305 Patient getting mildly more tachypneic, tired although not meeting requirements for increased oxygenation or ventilation I notified interventional radiologist. Per his assessment, the thrombi are too distal and he is not a candidate for thrombectomy when assessing risk-benefit. I will update the ICU team at this time to confirm further management, disposition. [JM] 0307 Per discussion with ICU attending, patient likely stable for floor however final disposition pending at this time. [JM] ED Course User Index [ER] Patricia Bolaños MD [JM] Zhao Castellanos DO Clinical Impressions as of 10/01/24 0040 Acute pulmonary embolism without acute cor pulmonale, unspecified pulmonary embolism type (HCC) Shortness of breath Hypoxia Elevated troponin Medical Decision Making SIGNATURE: Rajat Hussein DO PATIENT NAME: Alfozno Simon DATE: September 24, 2024 TIME: 1:02 AM PAGER/CONTACT #: RAJAT HUSSEIN 10/01/24 0040 [facility] HIGH SENSITIVITY TROPONIN T (THIRD) 3 HRS AFTER INITIALon 09-24-2024 Troponin T.cardiac High sensitivity method [Mass/Vol] 91 ng/L High <12 [facility] Comment on above: Order Comment: Speci men Type: BLOOD SPECIMENOrdering Facility: [facility] Address: [address] [place] [address] Performed By: #### L [id number] ####[facility]ORY[facility] [id number] [place] [id number] [place] HISTORY PHYSICALon HISTORY PHYSICAL HNO ID: [id number] Author: DEEDEE MAXWELL MD Service: Hospital Medicine Author Type: Physician Type: H&P Filed: 09/24/2024 08:49 Note Text: DEPARTMENT OF HOSPITAL MEDICINE HISTORY AND PHYSICAL EXAM SERVICE DATE: 09/24/2024 SERVICE TIME: 6:53 AM Primary Care Physician: Karthik Holliday APRN.RN ELIGIBILITY NIGHT AND WEEKEND COVERAGE: From 7am - 7pm, please call Sound After 7pm, please call cross cover pager #[phone] Subjective CHIEF COMPLAINT: SOB, lower leg swollen HPI: This is a 64 year old male with hx of Atrial flutter, Ground level fall with Right subdural hematoma, Right frontal subarachnoid hemorrhage, s/p right craniotomy evacuation with postop course complicated by acute ischemic stroke with bilateral cortical infarcts with residual left arm, bilateral lower extremity weakness, here with shortness of breath and swollen leg. CT chest showed a subsegmental PEs bilat. Pt denies headache, fever, chills, vision changes, swallowing problems, neck pain, chest pain, cough, abdominal pain, flank pain, nausea, vomiting, diarrhea, constipation, bleeding, urinary problems, muscle pain or weakness, numbness, tingling, or joint pain/swelling. No other associated symptoms. No other known aggravating or relieving factors. He is afebrile and HD stable, 87% on 2L, nc. BNP 1,530, glucose 125, HS trop 37>63>91, UA neg for UTI, WBC 12.43, hgb 13.3, US showed bilat calf DVTs. PAST MEDICAL HISTORY Diagnosis Date Atrial fibrillation [...] Laterality Date COLONOSCOPY GEN ANES 10/22/2020 Dr. Farida modi3 last one in 2019 CYSTOSCOPY 03/2021 Bladder [...] one drink per week. Drug use: No HOME MEDICATIONS: Prior to Admission Medications Prescriptions Last Dose Informant Patient Reported? Taking? acetaminophen (TYLENOL) 500 mg tablet No No Sig: Take 2 tablets by mouth every 8 hours as needed for pain. amLODIPine (NORVASC) 5 mg tablet No No Sig: Take 2 tablets by mouth once daily. aspirin 81 mg chewable tablet No No Sig: Take 1 tablet by mouth once daily. atorvastatin (LIPITOR) 20 mg tablet OTHER No No Sig: Take 1 tablet by mouth once daily. buPROPion XL (WELLBUTRIN XL) 300 mg 24 hr tablet Yes No Sig: Take 300 mg by mouth once daily. hydralazine HCl (HYDRALAZINE ORAL) Yes No Sig: Take 40 mg by mouth every 8 hours. lisinopril (ZESTRIL) 40 mg tablet OTHER No No Sig: Take 1 tablet by mouth once daily. nystatin (MYCOSTATIN) powder No No Sig: Apply 1 application to affected area four times daily. senna-docusate (SENNA-S) 8.6-50 mg per tablet No No Sig: Take 1 tablet by mouth two times a day. Patient taking differently: Take 1 tablet by mouth two times a day as needed for constipation. tamsulosin (FLOMAX) 0.4 mg No No Sig: TAKE 1 CAPSULE AT BEDTIME Facility-Administere d Medications: None ALLERGIES No Known Allergies REVIEW OF SYSTEM: All ROS are negative except those noted in HPI Objective PHYSICAL EXAM: BP 135/85 Pulse 61 Temp (Src) 99.3 (Oral) Resp 18 Ht 6' 0" (1.83m) Wt 288 lb (130.6kg) SpO2 87% BMI 39.05 kg/(m2). O2 Therapy: Nasal Cannula, Liters: 2L GENERAL: Alert, no distress, cooperative SKIN: Warm, dry intact, no open lesions, no rash HEAD/SINUSES: Normocephalic, atraumatic, oral mucosa moist EYES: PERRLA, EOMI NECK: No jugulovenous distention, Supple, no adenopathy LUNGS: Lungs clear to auscultation, no wheezes, ronchi, or rales CARDIAC: RRR, Normal S1 and S2; no rubs, murmurs, or gallops ABDOMEN: Obese. Abdomen soft, non-tender, BS normal, No masses or organomegaly EXTREMITIES: Extremities normal, no deformities, edema, clubbing or skin discoloration. NEURO: Sensation grossly intact, Cranial nerves II-XII intact, moves all 4 extremities, speech was clear and coherent - no chronic hermosillo DATA: Diagnostic tests reviewed for today's visit: Most recent labs and imaging results. CBC: Recent Labs 09/24/24 0539 WBC 12.43* RBC 4.49 HB 13.3 HCT 40.5 PLT 218 MCV 90.2 MCH 29.6 MPV 11.6 Coags: Recent Labs 09/24/24 0235 INR 1.0 APTT 27.4 BMP: Recent Labs 09/23/24 2205 NA 143 K 3.9 CHLOR 106 CO2 22 BUN 18 CREAT 1.11 G (more content not included)... [facility] HISTORY PHYSICAL HNO ID: [id number] Author: ROSEANNA STEPHENS MD Service: Critical Care Author Type: Physician Type: H&P Filed: 09/24/2024 05:26 Note Text: [facility], [place], [facility] BY [facility] STAFF PHYSICIAN NOTE OF PERSONAL INVOLVEMENT IN CARE I have reviewed the history and physical examination obtained and documented by the Resident. I have personally performed a face to face assessment of the patient and have personally participated on the gomes components of the history, exam and medical decision making. I have discussed the case and management of the patient's care. The following comments revise or confirm relevant gomes components of the note. IMPRESSION/PLAN: 64-year-old male with past medical history of right subdural hematoma, right subarachnoid hemorrhage s/p craniotomy in April 2024, atrial flutter, CVA, hypertension presented to ED with shortness of breath and weakness. In ED patient had CT chest done which showed PE in the left upper and left lower lobar branches and subsegmental branches in the right lower lobe. PERT team was called. Patient was started on heparin drip. Hemodynamically stable, on 2 L nasal cannula. Immediate high risk PE Acute calf DVT in right and left lower extremities History of atrial flutter not on AC History of SDH, SAH status post craniotomy in April Plan: Patient is hemodynamically stable, on 2 L nasal cannula, goal to keep SpO2 above 90% Heparin drip as per protocol Echocardiogram Given the location of blood clots, patient is not a ideal candidate of thrombectomy/cathete r directed thrombolysis, monitor hemodynamics and perfusion parameters Monitor HANDH Monitor neurological status, if any change in neurostatus obtain CT brain stat Patient can be admitted to telemetry floor, continue supportive care Discussed with patient and patient's partner in depth at the bedside about management of PE, based on discussion we agreed upon heparin drip and change to DOAC in next 24 to 48 hours if he does well Patient/Family Updated: Yes This patient has a high probability of sudden, clinically significant deterioration, which requires the highest level of physician preparedness to intervene urgently. I managed/supervised life or organ supporting interventions that required frequent physician assessment. I devoted my full attention to the direct care of this patient for the amount of time indicated below. Time I spent with family or surrogate(s) is included only if the patient was incapable of providing the necessary information or participating in medical decision making. Time devoted to teaching and to any procedures I billed separately is not included. Critical Care Documentation: The patient has the following organ/system impairment(s): Pulmonary embolism Only for admission notes, Diagnosis present on admission to MICU: Pulmonary embolism Time spent providing critical care services: 35 minutes. Please Note: This note has been created using [employer], a speech recognition software program, and may contain errors including punctuation, grammar, spelling, gender, and inappropriate words or phrases that pertain to the system. Some parts of the note have been copied from previous notes. SIGNATURE: Roseanna Stephens MD [facility] DATE of SERVICE: 09/24/2024 MICU Consultation PATIENT NAME: Alfonzo Simon REASON FOR ADMISSION: Pulmonary embolism DATE: September 24, 2024 Subjective HPI MrBrooklynn Simon is a 64 year old male with PMH: #Ground level fall with Right subdural hematoma, Right frontal subarachnoid hemorrhage, s/p right craniotomy evacuation with postop course complicated by acute ischemic stroke with bilateral cortical infarcts with residual left arm, bilateral lower extremity weakness #Atrial flutter, not on anticoagulants due to above #Parkinson disease #Benign Prostatic Hypertrophy #Essential hypertension Patient presented from home to [facility] on 09/23/2024 accompanied by their , with a chief complaint of worsening weakness mostly in the lower extremities which been present for the past few days, accompanied by some dizziness, shortness of breath and bilateral lower limb swelling. Patient have been less physically active for the past few days and started to have sudden onset of shortness of breath this morning. Patient denied any fever, coughing, hemoptysis, smoking and have been up to date with cancer screening. Patient was evaluated by MICU and deemed stable for floor. ED course: On arrival to the emergency department patient is noted to be afebrile, hemodynamically stable and saturating 95% on 2L NC. Patient had leukocytosis (13) with left shift, elevated lactate (4.4), elevated ALP (157), elevated BNP (1530), elevated troponin (37), CTPE with Filling defects in the left upper and left lower lobar branches. Patient started on PE nomogram. PAST MEDICAL HISTORY Diagnosis Date Atrial fibrillation (HCC) Benign prostatic hyp (more content not included)... [facility] [Mass/Vol] 2.0 mg/dL Normal 1.7-2.3 [facility] Comment on above: Order Comment: Speci men Type: BLOOD SPECIMEN [facility] Address: [address] [place] [address] Performed By: #### 1 4979-9 #### [facility] CLIA [id number] [address] OF [facility] PT panel Coag (PPP)on 2023 INR Coag (PPP) [Relative time] 1.0 {INR} Normal 0.9-1.3 [facility] Comment on above: Order Comment: Gemini olson Type: BLOOD SPECIMENOrdering Facility: [facility] Address: [address] [place] [address] Result Comment: Ivonne min K Antagonist (VKA) Therapeutic Range: INR 2 to 3 (Target INR of 2.5) Note: For patients treated with VKA drugs, such as warfarin, the [employer] 2012 Guideline recommends a therapeutic INR range of 2 to 3 (target INR of 2.5). This recommendation includes high-risk patients with antiphospholipid syndrome with previous arterial or venous thromboembolism, current-generation mechanical or bioprosthetic aortic heart valve replacement. Note: Patients with mechanical aortic valve replacement and additional risk factors for thromboembolic events (atrial fibrillation, previous thromboembolism, LV dysfunction, hypercoagulable conditions) or an older generation mechanical AVR (i.e., ball in-Cage) or any mechanical MVR should have a INR therapeutic range of 2.5 to 3.5 (target INR of 3). Devaughntt GH, et al. Chest 2012, 141:7S-47S Katarina RA, et al. [facility] 2017, 70: 252-289 Performed By: #### 3 4528-0, 92338-3 ####[facility]ORYCLIA [id number] [address] OF [facility] PT Coag (PPP) [Time] 10.9 s Normal 9.7-13.0 [facility] Comment on above: Order Comment: Gemini olson Type: BLOOD SPECIMENOrdering Facility: [facility] Address: [address] [place] [address] Performed By: #### 3 4528-0, 08163-2 ####[facility]ATORYCLIA [id number] [place] [address] [place] US DVT LOWER BILon US DVT LOWER FELICITAS * * *Final Report* * * DATE OF EXAM: Sep 24 2024 4:13AM HELDER 1005 - US DVT LOWER FELICITAS / PROCEDURE REASON: Pulmonary embolism (PE), eval for therapy * * * * Physician Interpretation * * * * EXAMINATION: RIGHT AND LEFT LOWER EXTREMITY DEEP VENOUS ULTRASOUND WITH DOPPLER IMAGING CLINICAL HISTORY: Pulmonary embolism, evaluate for therapy TECHNIQUE: Grayscale with compression maneuvers, color Doppler and spectral Doppler imaging of the right and left proximal deep veins was performed. Grayscale with compression maneuvers of the right and left peroneal and posterior tibial veins was performed. The right and left great and small saphenous veins were evaluated at their insertion to the deep system. Images were obtained and stored in a permanent archive. MQ: [id number] COMPARISON: None RESULT: RIGHT LOWER EXTREMITY PROXIMAL DEEP VEINS Distal External Iliac, Common Femoral and Proximal Profunda Veins: Compression: Normal Doppler: Normal, spontaneous respirophasic flow. Normal response to augmentation. Femoral vein: Compression: Normal Doppler: Normal, spontaneous respirophasic flow. Normal response to augmentation. Popliteal vein: Compression: Normal Doppler: Normal, spontaneous respirophasic flow. Normal response to augmentation. CALF DEEP VEINS Peroneal veins: Abnormal compression. Posterior tibial veins: Abnormal compression. Gastrocnemius and Soleal veins: Not imaged. SUPERFICIAL VEINS Great saphenous: Patent and compressible at insertion into common femoral vein; not otherwise assessed. Small Saphenous: Not identified. LEFT LOWER EXTREMITY PROXIMAL DEEP VEINS Distal External Iliac, Common Femoral and Proximal Profunda Veins: Compression: Normal Doppler: Normal, spontaneous respirophasic flow. Normal response to augmentation. Femoral vein: Compression: Normal Doppler: Normal, spontaneous respirophasic flow. Normal response to augmentation. Popliteal vein: Compression: Normal Doppler: Normal, spontaneous respirophasic flow. Normal response to augmentation. CALF DEEP VEINS Peroneal veins: Abnormal compression. Posterior tibial veins: Abnormal compression. Gastrocnemius and Soleal veins: Not imaged. SUPERFICIAL VEINS Great saphenous: Patent and compressible at insertion into common femoral vein; not otherwise assessed. Small Saphenous: Not identified. IMPRESSION: Negative study for proximal DVT in the left and right lower extremities. Positive study for acute calf DVT in the left and right lower extremities. Negative study for superficial thrombophlebitis in the imaged segments of the left and right lower extremities. Acid Operator: CRYS Transcribe Date/Time: Sep 24 2024 4:16A Dictated by : PAUL PETERSON MD This examination was interpreted and the report reviewed and electronically signed by: PAUL PETERSON MD on Sep 24 2024 4:18AM EST [id number] [facility] Urinalysis complete panel (U )on 09-24-2024 Bilirubin Ql (U) Negative Normal Negative [facility] Comment on above: Order Comment: Speci men Type: BLOOD SPECIMEN [facility] Address: [address] [place] [address] Performed By: #### 1 4979-9 #### [facility] CLIA [id number] [address] [place] Clarity (Unsp spec) Clear Normal Clear [facility] Comment on above: Order Comment: Speci men Type: BLOOD SPECIMEN [facility] Address: [address] [place] [address] Performed By: #### 1 4979-9 #### [facility] CLIA [id number] [address] OF [facility] Color (U) Yellow Normal yellow [facility] Comment on above: Order Comment: Speci men Type: BLOOD SPECIMEN [facility] Address: [address] [place] [address] Performed By: #### 1 4979-9 #### [facility] CLIA [id number] [address] OF [facility] Glucose Test strip (U) [Mass/Vol] Negative Normal Trace, Negative [facility] Comment on above: Order Comment: Speci men Type: BLOOD SPECIMEN [facility] Address: [address] [place] [address] Performed By: #### 1 4979-9 #### [facility] CLIA [id number] [address] [place] Hemoglobin Ql (U) Negative Normal Negative, Trace [facility] Comment on above: Order Comment: Speci men Type: BLOOD SPECIMEN [facility] Address: [address] [place] [address] Performed By: #### 1 4979-9 #### [facility] CLIA [id number] [address] [place] Ketones Ql (U) Negative Normal Negative, Trace [facility] Comment on above: Order Comment: Speci men Type: BLOOD SPECIMEN [facility] Address: [address] [place] [address] Performed By: #### 1 4979-9 #### [facility] CLIA [id number] [address] Leukocyte esterase Test strip Ql (U) Negative Normal Negative, 25 Irina/uL [facility] Comment on above: Order Comment: Speci men Type: BLOOD SPECIMEN [facility] Address: [address] [place] [address] Performed By: #### 1 4979-9 #### [facility] CLIA [id number] [address] [place] Nitrite Ql (U) Negative Normal Negative [facility] Comment on above: Order Comment: Speci men Type: BLOOD SPECIMEN [facility] Address: [address] [place] [address] Performed By: #### 1 4979-9 #### [facility] CLIA [id number] [address] [place] pH (U) 6.0 [pH] Normal 5.0-8.0 [facility] Comment on above: Order Comment: Speci men Type: BLOOD SPECIMEN [facility] Address: [address] [place] [address] Performed By: #### 1 4979-9 #### [facility] CLIA [id number] [address] [place] Protein (U) [Mass/Vol] 1+ Abnormal Trace , Negative [facility] Comment on above: Order Comment: Speci men Type: BLOOD SPECIMEN [facility] Address: [address] [place] [address] Performed By: #### 1 4979-9 #### [facility] CLIA [id number] [address] RBC LM.HPF (Urine sed) [#/Area] 11-25 /HPF Abnormal 0-3 /HPF [facility] Comment on above: Order Comment: Speci men Type: BLOOD SPECIMEN [facility] Address: [address] [place] [address] Performed By: #### 1 4979-9 #### [facility] CLIA [id number] [address] Specific gravity (U) [Rel density] >1.040 High 1.005-1.030 [facility] Comment on above: Order Comment: Speci men Type: BLOOD SPECIMEN [facility] Address: [address] [place] [address] Performed By: #### 1 4979-9 #### [facility] CLIA [id number] [address] [place] [address] Urobilinogen Ql (U) Normal Normal [facility] Comment on above: Order Comment: Speci men Type: BLOOD SPECIMEN [facility] Address: [address] [place] [address] Performed By: #### 1 4979-9 #### [facility] CLIA [id number] [address] WBC LM.HPF (Urine sed) [#/Area] 0-5 /HPF Normal 0-5 /HPF [facility] Comment on above: Order Comment: Speci men Type: BLOOD SPECIMEN [facility] Address: [address] [place] [address] Performed By: #### 1 4979-9 #### [facility] CLIA [id number] [address] aPTT PPPon 09-24-2024 aPTT Coag (PPP) [Time] 61.5 s High 23.0-32.4 [facility] Comment on above: Order Comment: Speci men Type: BLOOD SPECIMEN [facility] Address: [address] [place] [address] Performed By: #### 1 4979-9 #### [facility] CLIA [id number] [address] [address] aPTT Coag (PPP) [Time] 60.9 s High 23.0-32.4 [facility] Comment on above: Order Comment: Speci men Type: BLOOD SPECIMEN [facility]ing Facility: [facility] Address: [address] [place] [address] Performed By: #### 1 4979-9 #### [facility] CLIA [id number] [address] aPTT Coag (PPP) [Time] 135.5 s High 23.0-32.4 [facility] Comment on above: Order Comment: Speci men Type: BLOOD SPECIMEN Ordering Facility: [facility] Address: [address] [place] [address] Performed By: #### 1 4979-9 #### [facility] CLIA [id number] [address] aPTT Coag (PPP) [Time] 27.4 s Normal 23.0-32.4 [facility] Comment on above: Order Comment: Speci men Type: BLOOD SPECIMENOrdering Facility: [facility] Address: [address] [place] [address] Performed By: #### 3 4528-0, 19164-3 ####[facility] [id number] [address] ALLIED HEALTHon 09-23-2024 ALLIED HEALTH HNO ID: [id number] Author: FAYE MCGUIRE RT(R) Service: Radiology Author Type: Technologist Type: Allied Health Filed: 09/23/2024 23:24 Note Text: Radiology Service Progress Note DATE OF SERVICE: September 23, 2024 TIME: 11:23 PM PATIENT IDENTITY VERIFICATION COMPLETED USING TWO (2) STANDARD IDENTIFIERS: Name and Date of confirmed by patient verbally and Name and Date of confirmed by identification band. FALL SCREENING: Has the patient had 2 falls in the last year or 1 fall with injury or currently using an Ambulatory Assistive Device (Walker, Cane, Wheelchair, Crutches, etc.)? Emergency Room Patient: Screened in ED PATIENT GENDER DATA: Male PATIENT RELEVANT IMPLANT DATA REVIEWED: Not Applicable PATIENT PRESENTS WITH AN IMPLANTABLE OR ATTACHED MICROGRINDER OPERATOR: No ALLERGIES: Reviewed and unchanged CONTRAST ALLERGY: NO. EXAM: CT -CONTRAST INDUCED NEPHROPATHY RISK FACTORS: Patient age > 60 years CREATININE: Creatinine Date Value Ref Range Status 09/23/2024 1.11 0.73 - 1.22 mg/dL Final 06/06/2024 0.82 0.73 - 1.22 mg/dL Final 06/04/2024 0.93 0.73 - 1.22 mg/dL Final Estimated Glomerular Filtration Rate Date Value Ref Range Status 09/23/2024 74 >=60 mL/min/1.73m? Final Comment: Estimated Glomerular Filtration Rate (eGFR) is calculated using the 2020 CKD-EPI creatinine equation. This equation utilizes serum creatinine, sex, and age as parameters. The creatinine assay has traceable calibration to isotope dilution-mass spectrometry. Refer to KDIGO guidelines for clinical interpretation. In patients with unstable renal function, e.g. those with acute kidney injury, the eGFR may not accurately reflect actual GFR. eGFR- Date Value Ref Range Status 08/15/2021 >60 Final P.O.C.T. RESULTS: POC done: Yes, See Lab Tab September 23, 2024 TREATMENT: N/A PERIPHERAL IV DATA: Inpatient - refer to [facility] documentation RADIOLOGY DEPARTMENT: CT; Exam(s) Completed: PE Study SIGNATURE: RT Hi(R) PATIENT NAME: Alfonzo Simon DATE: September 23, 2024 TIME: 11:23 PM Normal [facility] CBC W Auto Differential pane l (Bld)on 09-23-2024 Basophils (Bld) [#/Vol] 0.04 10*3/uL Normal <0.11 [facility] Comment on above: Order Comment: Speci men Type: BLOOD SPECIMEN [facility]ing [facility] Address: [address] [place] [address] Performed By: #### 1 4979-9 #### [facility] CLIA [id number] [address] Basophils/100 WBC (Bld) 0.3 % Normal [facility] Comment on above: Order Comment: Speci men Type: BLOOD SPECIMEN [facility]ing Facility: [facility] Address: [address] [place] [address] Performed By: #### 1 4979-9 #### [facility] CLIA [id number] [address] Differential cell count method Nom (Bld) Auto Normal [facility] Comment on above: Order Comment: Speci men Type: BLOOD SPECIMEN Ordering Facility: [facility] Address: [address] [place] [address] Performed By: #### 1 4979-9 #### [facility] CLIA [id number] [address] [place] Eosinophils (Bld) [#/Vol] 0.20 10*3/uL Normal <0.46 [facility] Comment on above: Order Comment: Speci men Type: BLOOD SPECIMEN Ordering Facility: [facility] Address: [address] [place] [address] Performed By: #### 1 4979-9 #### [facility] CLIA [id number] [address] Eosinophils/100 WBC (Bld) 1.5 % Normal [facility] Comment on above: Order Comment: Speci men Type: BLOOD SPECIMEN Ordering [facility]: [facility] Address: [address] [place] [address] Performed By: #### 1 4979-9 #### [facility] CLIA [id number] [address] [place] Erythrocyte distribution width (RBC) [Ratio] 14.6 % Normal 11.5-15.0 [facility] Comment on above: Order Comment: Speci men Type: BLOOD SPECIMEN Ordering Facility: [facility] Address: [address] [place] [address] Performed By: #### 1 4979-9 #### [facility] CLIA [id number] [address] [place] Hematocrit (Bld) [Volume fraction] 45.3 % Normal 39.0-51.0 [facility] Comment on above: Order Comment: Speci men Type: BLOOD SPECIMEN Ordering Facility[facility] Address: [address] [place] [address] Performed By: #### 1 4979-9 #### [facility] CLIA [id number] [address] [place] Hemoglobin (Bld) [Mass/Vol] 14.7 g/dL Normal 13.0-17.0 [facility] Comment on above: Order Comment: Speci men Type: BLOOD SPECIMEN Ordering Facility: [facility] Address: [address] [place] [address] Performed By: #### 1 4979-9 #### [facility] CLIA [id number] [address] [place] Immature granulocytes (Bld) [#/Vol] 0.03 10*3/uL Normal <0.10 [facility] Comment on above: Order Comment: Speci men Type: BLOOD SPECIMEN Ordering [facility] Address: [address] [place] [address] Performed By: #### 1 4979-9 #### [facility] CLIA [id number] [address] [place] Immature granulocytes/100 WBC (Bld) 0.2 % Normal [facility] Comment on above: Order Comment: Speci men Type: BLOOD SPECIMEN Ordering Facility: [facility] Address: [address] [place] [address] Performed By: #### 1 4979-9 #### [facility] CLIA [id number] [address] [place] Lymphocytes (Bld) [#/Vol] 1.55 10*3/uL Normal 1.00-4.00 [facility] Comment on above: Order Comment: Speci men Type: BLOOD SPECIMEN Ordering Facility: [facility] Address: [address] [place] [address] Performed By: #### 1 4979-9 #### [facility] CLIA [id number] [address] Lymphocytes/100 WBC (Bld) 12.0 % Normal [facility] Comment on above: Order Comment: Speci men Type: BLOOD SPECIMEN Ordering Facility: [facility] Address: [address] [place] [address] Performed By: #### 1 4979-9 #### [facility] CLIA [id number] [address] MCH (RBC) [Entitic mass] 29.7 pg Normal 26.0-34.0 [facility] Comment on above: Order Comment: Speci men Type: BLOOD SPECIMEN Ordering Facility: [facility] Address: [address] [place] [address] Performed By: #### 1 4979-9 #### [facility] CLIA [id number] [address] OF [facility] MCHC (RBC) [Mass/Vol] 32.5 g/dL Normal 30.5-36.0 [facility] Comment on above: Order Comment: Speci men Type: BLOOD SPECIMEN Ordering Facility: [facility] Address: [address] [place] [address] Performed By: #### 1 4979-9 #### [facility] CLIA [id number] [address] MCV (RBC) [Entitic vol] 91.5 fL Normal 80.0-100.0 [facility] Comment on above: Order Comment: Speci men Type: BLOOD SPECIMEN Ordering Facility: [facility] Address: [address] [place] [address] Performed By: #### 1 4979-9 #### [facility] CLIA [id number] [address] Monocytes (Bld) [#/Vol] 1.04 10*3/uL High <0.87 [facility] Comment on above: Order Comment: Speci men Type: BLOOD SPECIMEN Ordering Facility: [facility] Address: [address] [place] [address] Performed By: #### 1 4979-9 #### [facility] CLIA [id number] [address] [place] Monocytes/100 WBC (Bld) 8.0 % Normal [facility] Comment on above: Order Comment: Speci men Type: BLOOD SPECIMEN Ordering Facility: [facility] Address: [address] [place] [address] Performed By: #### 1 4979-9 #### [facility] CLIA [id number] [address] [place] Neutrophils (Bld) [#/Vol] 10.07 10*3/uL High 1.45-7.50 [facility] Comment on above: Order Comment: Speci men Type: BLOOD SPECIMEN Ordering [facility] Address: [address] [place] [address] Performed By: #### 1 4979-9 #### [facility] CLIA [id number] [address] [place] Neutrophils/100 WBC (Bld) 78.0 % Normal [facility] Comment on above: Order Comment: Speci men Type: BLOOD SPECIMEN Ordering Facility: [facility] Address: [address] [place] [address] Performed By: #### 1 4979-9 #### [facility] CLIA [id number] [address] [place] Nucleated RBC (Bld) [#/Vol] 10*3/uL Normal <0.01 [facility] Comment on above: Order Comment: Speci men Type: BLOOD SPECIMEN Ordering Facility: [facility] Address: [address] [place] [address] Performed By: #### 1 4979-9 #### [facility] CLIA [id number] [address] [place] Nucleated RBC/100 WBC (Bld) [Ratio] 0.0 /100 WBC Normal [facility] Comment on above: Order Comment: Speci men Type: BLOOD SPECIMEN Ordering Facility: [facility] Address: [address] [place] [address] Performed By: #### 1 4979-9 #### [facility] CLIA [id number] [address] [place] Platelet mean volume (Bld) [Entitic vol] 11.8 fL Normal 9.0-12.7 [facility] Comment on above: Order Comment: Speci men Type: BLOOD SPECIMEN Ordering Facility: [facility] Address: [address] [place] [address] Performed By: #### 1 4979-9 #### [facility] CLIA [id number] [address] [place] Platelets (Bld) [#/Vol] 239 10*3/uL Normal 150-400 [facility] Comment on above: Order Comment: Speci men Type: BLOOD SPECIMEN Ordering Facility: [facility] Address: [address] [place] [address] Performed By: #### 1 4979-9 #### [facility] CLIA [id number] [address] [place] RBC (Bld) [#/Vol] 4.95 10*6/uL Normal 4.20-6.00 [facility] Comment on above: Order Comment: Speci men Type: BLOOD SPECIMEN Ordering Facility: [facility] Address: [address] [place] [address] Performed By: #### 1 4979-9 #### [facility] CLIA [id number] [address] [place] WBC (Bld) [#/Vol] 12.93 10*3/uL High 3.70-11.00 [facility] Comment on above: Order Comment: Speci men Type: BLOOD SPECIMEN Ordering Facility: [facility] Address: [address] [place] [address] Performed By: #### 1 4979-9 #### [facility] CLIA [id number] [address] [place] [address] [facility] [place] CTA CHEST (NON GATED) W IVCO N PEon 09-23-2024 CTA CHEST (NON GATED) W IVCON PE * * *Final Report* * * DATE OF EXAM: Sep 23 2024 11:22PM [facility] 0564 - CTA CHEST (NON GATED) W IVCON PE / PROCEDURE REASON: Pulmonary embolism (PE) suspected, high prob * * * * Physician Interpretation * * * * EXAMINATION: CHEST CTA (NON GATED) WITH CONTRAST (PULMONARY EMBOLISM PROTOCOL) Clinical History: Shortness of breath Technique: Spiral CT acquisition of the chest from the thoracic inlet to the upper abdomen following IV contrast. Axial 1 and 3 mm thick slices plus coronal and sagittal reformatted images. MQ: CTCP_5 Contrast: 100 mL Omnipaque [address] Radiation dose: Integrated Dose-length product (DLP) for this visit = 380 mGy*cm CT Dose Reduction Employed: Automated exposure control(AEC) and iterative recon CTA: Post-processed images {Maximum intensity Projection (MIP), Volume-rendered (VR), or Surface shaded display images (SSD)} were created, reviewed and archived. Comparison: 04/15/2024 RESULT: Limitations: Suboptimal study due to respiratory motion with or without non-ideal pulmonary arterial enhancement. Evaluation for thromboembolic disease: - Right heart chambers: No thromboembolic disease. - Main pulmonary arteries: No thromboembolic disease. - Lobar pulmonary arteries: Filling defects in the left upper and left lower lobar branches - Segmental pulmonary arteries: Limited evaluation on the right. Positive in the left upper and left lower lobes. - Subsegmental pulmonary arteries: Limited evaluation on the right. Positive in the left upper and left lower lobes as well as the right lower lobe. - Additional pulmonary artery findings: The main pulmonary artery is normal in caliber. Lines, tubes, and devices: None. Lung parenchyma and airways: No consolidation. There are subtle areas of mosaic attenuation throughout. There is partial collapse of the bronchi throughout. Pleural space: No pleural effusion. No pleural thickening. Lower neck, lymph nodes, and mediastinum: The imaged thyroid gland is normal. No lymphadenopathy in the supraclavicular, axillary, mediastinal, or hilar regions. Heart, pericardium, and thoracic vessels: The thoracic aorta is normal in caliber. The cardiac chambers are normal in size. Coronary artery atherosclerotic calcifications are noted, although the study is not optimized for coronary assessment. No pericardial effusion or thickening. RV/LV ratio is calculated at 0.96. Bones and soft tissues: No destructive bone lesion. Chest wall is unremarkable. Upper abdomen: No abnormality in the imaged upper abdomen. Localizer images: No additional findings. IMPRESSION: Limited examination however positive for pulmonary emboli in the lobar branches of the left upper and left lower lobes as well as subsegmental branches in the right lower lobe. RV/LV ratio is calculated at 0.96. Findings concerning for the presence of tracheobronchomalaci a. CRITICAL TEST/RESULTS: CRITICAL TEST/RESULTS: Acuity: Critical Finding: Pulmonary embolus Communication: Communicated with Dr. Rajat Hussein on 09/24/2024 1:10 AM via [employer] Secure Chat. --END OF FINDING-- Acid Operator: CRYS Transcribe Date/Time: Sep 24 2024 1:03A Dictated by : JOHN MYERS MD This examination was interpreted and the report reviewed and electronically signed by: JOHN MYERS MD on Sep 24 2024 1:13AM EST [id number] CN CRITICAL!! Invalid Interpretation Code [facility] Comprehensive metabolic 2000 panelon 09-23-2024 Albumin [Mass/Vol] 3.9 g/dL Normal 3.9-4.9 [facility] Comment on above: Order Comment: Gemini olson Type: BLOOD SPECIMEN [facility] Address: [address] [place] [address] Performed By: #### 1 4979-9 #### [facility] CLIA [id number] [address] STATES OF [facility] ALP [Catalytic activity/Vol] 157 U/L High 38-113 [facility] Comment on above: Order Comment: Gemini olson Type: BLOOD SPECIMEN Order[facility] Facility[facility] Address: [address] [place] [address] Performed By: #### 1 4979-9 #### [facility] CLIA [id number] [address] [place] ALT With P-5'-P [Catalytic activity/Vol] 24 U/L Normal 10-54 [facility] Comment on above: Order Comment: Speci men Type: BLOOD SPECIMEN Order[facility] Facility[facility] Address: [address] [place] [address] Performed By: #### 1 4979-9 #### [facility] CLIA [id number] [address] [place] Anion gap [Moles/Vol] 15 mmol/L Normal 8-15 [facility] Comment on above: Order Comment: Speci men Type: BLOOD SPECIMEN Ordering Facility[facility] Address: [address] [place] [address] Performed By: #### 1 4979-9 #### [facility] CLIA [id number] [address] [place] AST With P-5'-P [Catalytic activity/Vol] 20 U/L Normal 14-40 [facility] Comment on above: Order Comment: Speci men Type: BLOOD SPECIMEN Ordering Facility[facility] Address: [address] [place] [address] Performed By: #### 1 4979-9 #### [facility] CLIA [id number] [address] [place] Bilirubin [Mass/Vol] 0.5 mg/dL Normal 0.2-1.3 [facility] Comment on above: Order Comment: Speci men Type: BLOOD SPECIMEN [facility] Address: [address] [place] [address] Performed By: #### 1 4979-9 #### [facility] CLIA [id number] [address] [place] Calcium [Mass/Vol] 9.3 mg/dL Normal 8.5-10.2 [facility] Comment on above: Order Comment: Speci men Type: BLOOD SPECIMEN Order[facility] Address: [address] [place] [address] Performed By: #### 1 4979-9 #### [facility] CLIA [id number] [address] [place] Chloride [Moles/Vol] 106 mmol/L Normal 98-107 [facility] Comment on above: Order Comment: Speci men Type: BLOOD SPECIMEN [facility] Address: [address] [place] [address] Performed By: #### 1 4979-9 #### [facility] CLIA [id number] [address] [place] CO2 [Moles/Vol] 22 mmol/L Normal 22-30 [facility] Comment on above: Order Comment: Speci men Type: BLOOD SPECIMEN [facility] Address: [address] [place] [address] Performed By: #### 1 4979-9 #### [facility] CLIA [id number] [address] OF [facility] Creatinine [Mass/Vol] 1.11 mg/dL Normal 0.73-1.22 [facility] Comment on above: Order Comment: Speci men Type: BLOOD SPECIMEN [facility] Address: [address] [place] [address] Performed By: #### 1 4979-9 #### [facility] CLIA [id number] [address] Creatinine and Glomerular filtration rate.predicted panel (S/P/Bld) 74 mL/min/1.73m??? Normal >=60 [facility] Comment on above: Order Comment: Speci men Type: BLOOD SPECIMEN Order[facility] Facility[facility] Address: [address] [place] [address] Result Comment: Josseline mated Glomerular Filtration Rate [...] accurately reflect actual GFR. Performed By: #### 1 4979-9 #### [facility] CLIA [id number] [address] [place] Glucose [Mass/Vol] 125 mg/dL High 74-99 [facility] Comment on above: Order Comment: Gemini olson Type: BLOOD SPECIMEN [facility] Address: [address] [place] [address] Result Comment: The [place] [employer] (ADA) provides guidance for cutoff [...] Standards of Medical Care in Diabetes 2016, [place] [employer]. Diabetes Care. 2016.39(Suppl 1). Performed By: #### 1 4979-9 #### [facility] CLIA [id number] [address] [place] [address] [place] Potassium [Moles/Vol] 3.9 mmol/L Normal 3.7-5.1 [facility] Comment on above: Order Comment: Gemini olson Type: BLOOD SPECIMEN [facility] Address: [address] [place] [address] Performed By: #### 1 4979-9 #### [facility] CLIA [id number] [address] [place] [address] [place] Protein [Mass/Vol] 6.7 g/dL Normal 6.3-8.0 [facility] Comment on above: Order Comment: Gemini olson Type: BLOOD SPECIMEN [facility] Address: [address] [place] [address] Performed By: #### 1 4979-9 #### [facility] CLIA [id number] [address] [place] [address] [place] Sodium [Moles/Vol] 143 mmol/L Normal 136-144 [facility] Comment on above: Order Comment: Gemini men Type: BLOOD SPECIMEN [facility] Address: [address] [place] [address] [place] [address] Performed By: #### 1 4979-9 #### [facility] CLIA [id number] [address] Urea nitrogen [Mass/Vol] 18 mg/dL Normal 9-24 [facility] Comment on above: Order Comment: Speci men Type: BLOOD SPECIMEN Order[facility] Facility[facility] Address: [address] [place] [id number] Performed By: #### 1 4979-9 #### [facility] CLIA [id number] [address] ED NOTEon 09-23-2024 ED NOTE HNO ID: [id number] Author: NIA SANCHEZ RN Service: Emergency Medicine Author Type: Registered Nurse Type: ED Notes Filed: 09/23/2024 23:17 Note Text: Patient to ED CT at this time. [facility] ED NOTE HNO ID: [id number] Author: DAVE MARROQUIN RN Service: Emergency Medicine Author Type: Registered Nurse Type: ED Notes Filed: 09/23/2024 22:56 Note Text: CT notified patient ready for transport. [facility] ED NOTE HNO ID: [id number] Author: DAVE MARROQUIN RN Service: Emergency Medicine Author Type: Registered Nurse Type: ED Notes Filed: 09/23/2024 21:53 Note Text: Lacate 4.[address] POC lab. Dr. German Bolaños notified. [facility] ED NOTE HNO ID: [id number] Author: DAVE MARROQUIN RN Service: Emergency Medicine Author Type: Registered Nurse Type: ED Notes Filed: 09/23/2024 21:32 Note Text: Patient arrives incontinent of stool. Patient cleansed and linens changed. Patient repositioned up in bed with assist x 4. Pulse ox 92% on room air. Placed on oxygen 2L/NC [facility] ED NOTE HNO ID: [id number] Author: DAVE MARROQUIN RN Service: Emergency Medicine Author Type: Registered Nurse Type: ED Notes Filed: 09/23/2024 21:26 Note Text: Patient placed on hospital monitor. Monitor shows sinus rhythm with frequent PAC's Normal [facility] ED NOTE HNO ID: [id number] Author: GABRIELLA HOLLOWAY Medic Service: ? 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/Designer Type: ED Notes Filed: 09/23/2024 21:20 Note Text: Bed: 34-ED Expected date: Expected time: Means of arrival: Comments: M13 54yo sob Normal [facility] ED PROV NOTEon 09-23-2024 ED PROV NOTE HNO ID: [id number] Author: HUBER GONZALEZ MD Service: Emergency Medicine Author Type: Physician Type: ED Provider Notes Filed: 09/24/2024 01:27 Note Text: Attending Note CC: Shortness of breath HPI:64 year old male with history of subarachnoid hemorrhage, subdural hematoma diagnosed in April 2024 status post evacuation of subdural hematoma (intraoperatively there was tumor suspected to be meningioma that was resected, with postop course complicated by acute ischemic stroke with bilateral cortical infarcts) presents to the emergency department for worsening weakness most in the lower extremities which been present for the past few days, accompanied by some dizziness and some shortness of breath. Patient has been living at home recently, becoming more sedentary, tachypneic. Patient and also noted the bilateral lower extremities do appear to be newly swollen. Patient denies any history of blood clots, CHF, recent falls. He states that after his CVAs, he has baseline left arm weakness and numbness, baseline lower extremity bilateral weakness. No fevers or chills. Patient complains of some left arm soreness without edema. No nausea vomiting diarrhea, no chest pain. They do endorse constipation, no BM for 3 days. Patient denies any abdominal pain. No recent head trauma or LOC no syncope, no neck or back pain. History obtained from Patient, Physical Exam General appearance: well developed male lying in bed, in no acute distress Psychiatric: Alert and Oriented x 3, conversational. Affect : normal Skin: Warm, intact. HEENT: Normocephalic, atraumatic, PERRL, EOMI, MMM. Neck: Supple. Trachea midline. No stridor. Cardiovascular: RRR. S1 and S2 heard. Respiratory: tachypnic. Diminished breath sounds in lung bases. No wheezes rales or rhonchi. Chest wall is nontender to palpation. Abdomen: Soft. Nontender/nondistend ed with bowel sounds present. No rebound, rigidity, or guarding. Extremities: Distal pulses 2/4. Capillary refills less than 5 seconds. 2+ pitting edema to the bilateral lower extremities which is symmetric. Neurological: Cranial nerves II through XII grossly intact, moves all extremities equally. Sensation to the left arm reported as slightly decreased and at baseline. Professional Fee Coder strengths equal bilateral upper extremities. Patient is unable to lift bilateral lower extremities off the bed, but does have dorsiflexion and plantarflexion 4/5 equal bilaterally. ED course: I personally performed a history and physical examination the patient and discussed management with the resident physician/PA/BAGGAGE HANDLING SUPERVISOR. I reviewed the resident/PA/BAGGAGE HANDLING SUPERVISOR's note and agree with documented findings and plan of care, unless otherwise listed above. I supervised procedures performed by resident physician/PA/BAGGAGE HANDLING SUPERVISOR. EKG was sinus tachycardia and PACs. The neurologic changes on exam are reported as chronic but slightly worse than baseline. VBG with normal venous pH pCO2 and bicarb. Lactic elevated at 4.4. Patient was placed on O2 nasal cannula 2 L due to hypoxia and reports symptomatic improvement. CBC with white count of 12,000 which is nonspecific. CMP without significant abnormality. Alk phos slightly elevated at 157. BNP elevated at 1530. Initial high-sensitivity troponin was 37, repeats are currently pending. PT/INR is normal. Rapid COVID influenza and RSV is currently pending. Did trial albuterol given diminished breath sounds. Patient was endorsed Dr. Hussein pending CT chest PE protocol, repeat troponins, HUBER GONZALEZ 09/24/24 0127 Normal [facility] ED PROV NOTE HNO ID: [id number] Author: HUBER GONZALEZ MD Service: Emergency Medicine Author Type: Resident Type: ED Provider Notes Filed: 09/24/2024 01:28 Note Text: Attestation signed by Huber Gonzalez MD at 09/24/2024 1:28 AM Attending Note I evaluated the patient and personally participated in the gomes components. I agree with the resident's findings and plan with the following revisions and/or additions: Please see my separate note Signature: Huber Gonzalez MD Date: 09/24/2024 Time: 1:28 AM ED Provider Note Patient Name: Alfonzo Simon : 1960 SERVICE DATE: 09/23/24 History Patient presents with: Shortness of Breath: Patient lives at home with . Patient states he called EMS for complaints of shortness of breath and weakness. Patient also states when he stands up, he becomes dizzy. Patient denies urinary symptoms Patient is a 64 year old male presenting to the ED for SOB. Patient has a PMHX as below, notable for atrial flutter no longer on OAC due to contraindication. Patient states that today he started to have worsening SOB. He also reports bilateral pedal edema which has been worsening. States that he does not wear NC at baseline. He denies fever, chill, chest pain, abdominal pain, nausea, vomiting, diarrhea. Denies history of PE or DVT. He is not on any OAC due to subdural hematoma and SAH in the past. at bedside reports the patient has been refusing medication for the past 2 days. He has been unable to ambulate due to SOB and generalized fatigue and was sitting in his own urine for 24 hours. PAST MEDICAL HISTORY Diagnosis Date Atrial fibrillation [...] Vaping Use Vaping status: Never Used Substance and Sexual Activity Alcohol use: Not Currently Comment: occ. Maybe one drink per week. Drug use: No Sexual activity: Never ALLERGIES No Known Allergies Review of Systems Constitutional: Positive for fatigue. Negative for chills and fever. HENT: Negative for congestion and sore throat. Respiratory: Positive for shortness of breath. Negative for cough and wheezing. Cardiovascular: Positive for leg swelling. Negative for chest pain and palpitations. Gastrointestinal: Negative for abdominal pain, diarrhea, nausea and vomiting. Genitourinary: Negative for dysuria, flank pain and hematuria. Neurological: Positive for light-headedness. Negative for syncope. All other systems reviewed and are negative. Physical Exam Vitals BP Pulse Temp Temp src Resp SpO2 Weight Height 09/23/24212409/23/24212109/23/24212209/23/24212209/23/24212109/23/24212109/23/24212109/23/242121 164/95 (!) 96 37.4 ?C (99.3 ?F) Oral 18 95 % 130.6 kg (288 lb) 1.829 m (6') Physical Exam Vitals and nursing note reviewed. Constitutional: General: He is not in acute distress. Appearance: He is obese. He is ill-appearing. He is not toxic-appearing or diaphoretic. HENT: Head: Normocephalic and atraumatic. Eyes: Extraocular Movements: Extraocular movements intact. Pupils: Pupils are equal, round, and reactive to light. Cardiovascular: Rate and Rhythm: Normal rate and regular rhythm. Pulses: Normal pulses. Heart sounds: No murmur heard. No friction rub. No gallop. Pulmonary: Effort: Tachypnea present. No respiratory distress. Breath sounds: Examination of the right-lower field reveals decreased breath sounds. Examination of the left-lower field reveals decreased breath sounds. Decreased breath sounds present. No wheezing, rhonchi or rales. Chest: Chest wall: No tenderness or crepitus. Abdominal: Palpations: Abdomen is soft. Tenderness: There is no abdominal tenderness. There is no guarding or rebound. Musculoskeletal: Cervical back: Normal range of motion and neck supple. Right lower leg: No tenderness. Edema present. Left lower leg: No tenderness. Edema present. Comments: Symmetric 2+ edema bilaterally. Skin: General: Skin is warm and dry. Neuro (more content not included)... [facility] EKGon 09-23-2024 Electrocardiogram Ventricular Rate : 102 BPM Atrial Rate : 102 BPM P-R Interval : 192 ms QRS Duration : 116 ms Q-T Interval : 394 ms QTC Calculation(Bazett) : 513 ms Calculated P Sachse : 38 degrees Calculated R Sachse : -53 degrees Calculated T Sachse : 78 degrees SINUS TACHYCARDIA WITH PREMATURE ATRIAL COMPLEXES LEFT ANTERIOR FASCICULAR BLOCK LEFT VENTRICULAR HYPERTROPHY WITH QRS WIDENING AND REPOLARIZATION ABNORMALITY ( R in aVL , Dong product ) ABNORMAL ECG When compared with selected ECG of 04-Jun-2024 18:45, QT HAS LENGTHENED Confirmed by MD GONZALEZ PATRICIA ([id number]) on 09/24/2024 1:23:20 AM NAME : ALFONZO SIMON PID : [id number] : 1960 Gender : Male Race : ORD : Procedure Date : Sep 23 2024 21:25:26 Edit Date : Sep 24 2024 01:23:24 Diagnosis: SINUS TACHYCARDIA WITH PREMATURE ATRIAL COMPLEXES LEFT ANTERIOR FASCICULAR BLOCK LEFT VENTRICULAR HYPERTROPHY WITH QRS WIDENING AND REPOLARIZATION ABNORMALITY ( R in aVL , Dong product ) ABNORMAL ECG When compared with selected ECG of 04-Jun-2024 18:45, QT HAS LENGTHENED Confirmed by MD GONZALEZ PATRICIA ([id number]) on 09/24/2024 1:23:20 AM Test Reason : Location : 4 : [facility] Overread By : MD GONZALEZ PATRICIA Edited By : MD GONZALEZ PATRICIA Referred By : , Acquired by : KATHY WHALEY [facility] HIGH SENSITIVITY TROPONIN T (INITIAL)on 09-23-2024 Troponin T.cardiac High sensitivity method [Mass/Vol] 37 ng/L High <12 [facility] Comment on above: Order Comment: Speci men Type: BLOOD SPECIMENOrdering Facility: [facility] Address: [address] [place] [address] Performed By: #### L [id number] ####[facility] [id number] [address] HIGH SENSITIVITY TROPONIN T (SECOND)on 09-23-2024 Troponin T.cardiac High sensitivity method [Mass/Vol] 63 ng/L High <12 [facility] Comment on above: Order Comment: Speci men Type: BLOOD SPECIMEN [facility] Address: [address] [place] [address] Performed By: #### 1 4979-9 #### [facility] CLIA [id number] [address] [place] [address] [place] Magnesium SerPl-mCncon 09-23 Magnesium [Mass/Vol] 2.0 mg/dL Normal 1.7-2.3 [facility] Comment on above: Order Comment: Speci men Type: BLOOD SPECIMEN [facility] Address: [address] [place] [address] Performed By: #### 1 4979-9 #### [facility] CLIA [id number] [address] NT-proBNP SerPl-mCncon 09-23 Natriuretic peptide.B prohormone N-Terminal [Mass/Vol] 1530 pg/mL High <125 [facility] Comment on above: Order Comment: Speci men Type: BLOOD SPECIMEN [facility] Address: [address] [place] [address] Performed By: #### 1 4979-9 #### [facility] CLIA [id number] [address] [place] PT panel Coag (PPP)on 2023 INR Coag (PPP) [Relative time] 1.0 {INR} Normal 0.9-1.3 [facility] Comment on above: Order Comment: Speci men Type: BLOOD SPECIMENOrdering Facility: [facility] Address: [address] [place] [address] Result Comment: Ivonne min K Antagonist (VKA) Therapeutic Range: INR 2 to 3 (Target INR of 2.5) Note: For patients treated with VKA drugs, such as warfarin, the [place] [employer] 2012 Guideline recommends a therapeutic INR range of 2 to 3 (target INR of 2.5). This recommendation includes high-risk patients with antiphospholipid syndrome with previous arterial or venous thromboembolism, current-generation mechanical or bioprosthetic aortic heart valve replacement. Note: Patients with mechanical aortic valve replacement and additional risk factors for thromboembolic events (atrial fibrillation, previous thromboembolism, LV dysfunction, hypercoagulable conditions) or an older generation mechanical AVR (i.e., ball in-Cage) or any mechanical MVR should have a INR therapeutic range of 2.5 to 3.5 (target INR of 3). Laxmi MCNALLY, et al. Chest 2012, 141:7S-47S Katarina RA, et al. [facility] 2017, 70: 252-289 Performed By: #### 3 4528-0, 05600-1 ####[facility] [id number] [place] [address] [place] PT Coag (PPP) [Time] 10.7 s Normal 9.7-13.0 [facility] Comment on above: Order Comment: Speci men Type: BLOOD SPECIMENOrdering Facility: [facility] Address: [address] [place] [address] Performed By: #### 3 4528-0, 24562-1 ####[facility]IA [id number] [address] STATES OF [facility] aPTT PPPon 09-23-2024 aPTT Coag (PPP) [Time] 27.4 s Normal 23.0-32.4 [facility] Comment on above: Order Comment: Speci men Type: BLOOD SPECIMENOrdering Facility: [facility] Address: [address] [place] [address] Performed By: #### 3 4528-0, 45251-9 ####[facility]ORYCLIA [id number] [address] OF [place] Kinsey 09-20-2024 HERMAN Telephone (AGSAM) ALFONZO SIMON ([id number]) 1960 M Date Time Provider Department 09/20/24 KARTHIK HOLLIDAY [facility] During your visit today, we recorded the following information about you: Viktoria Beyer LPN 09/20/2024 3:05 PM Signed Paula BARRETT from [facility] called in and left message. States Mejía has reported to falls since his return home and had to call 911 to assist him up. She had documented, no bruising, no pain and no injuries noted. Karthik Mathur APRN.CHAN 09/20/2024 3:40 PM Signed Is scheduled to have some home PT/OT, if falls continue he will need to be admitted to SNF for more assistance and PT. Karthik Holliday APRN.CHAN September 20, 2024 3:39 PM Viktoria Beyer LPN 09/20/2024 3:48 PM Signed Noted Allergies As of Date: 09/20/2024 (No Known Allergies) Date Reviewed: 09/18/2024 Reviewed by: Karthik Holliday APRN.CHAN - Fully Assessed Reason for Visit: Patient Update [1234] Prescriptions as of 09/20/2024 - nystatin (MYCOSTATIN) powder Apply 1 application [...] 1 tablet by mouth once daily. - senna-docusate (SENNA-S) 8.6-50 mg per tablet Take 1 tablet by mouth two times a day. - lisinopril (ZESTRIL) 40 mg tablet Take 1 tablet by mouth once daily. - atorvastatin (LIPITOR) 20 mg tablet Take 1 tablet by mouth once daily. Problem List As Of Date 09/20/2024 Noted Resolved Essential hypertension [I10] 05/25/2016 Benign [...] Traumatic subdural hematoma with loss of consci*05/09/2024 09/18/2024 Intracranial meningioma (HCC) [D32.0] 05/09/2024 Failure to thrive in adult [R62.7] 06/04/2024 H/O: CVA (cerebrovascular accident) [Z86.73] 06/07/2024 Morbid (severe) obesity due to excess calories *06/24/2020 Recurrent major depressive disorder, in partial*06/24/2020 09/18/2024 Obesity, Class II, BMI 35-39.9 [E66.812] 09/18/2024 Encounter Status:Closed by VIKTORIA BEYER on 09/20/24 [facility] Liam 09-18-2024 CN Office Visit (AGSAM) ALFONZO SIMON ([id number]) 1960 M Date Time Provider Department 09/18/24 1:20 PM KARTHIK HOLLIDAY During your visit today, we recorded the following information about you: Pulse Respiration Blood pressure Weight 63/minute 18/minute 149/103 130.6 kg Height 1.829 m Karthik Holliday APRN.CNP 09/18/2024 1:49 PM Signed Transitional Care Management TCM Eligibility Documentation Program: Transitional Care Management Status: Enrolled Effective Dates: 09/11/2024 - present Responsible Staff: Dayan Mina RN Discharge date: 09/08/2024 (Program start) Date of initial contact: 09/11/2024 Initial contact Target status: Successful; Contact made within 2 business days post-discharge Summary Discharged from: [facility] Admit Date: 04/15/2024, 06/04/2024 Admitted for: Subdural hematoma and failure to thrive. Karthik Holliday APRN.RN ELIGIBILITY Provider Documentation Alfonzo Simon is a 64 [...] Positive for rash. Neurological: Negative. Endo/Heme/Allergies: Negative. Psychiatric/Behavior al: Negative. Vitals There were no vitals taken [...] and benefit of weight loss. BMI 39.06 kg/(m2) - LIPID PANEL BASIC - HEMOGLOBIN A1C 10. Weakness - ICD9: 780.79, ICD10: R53. - PARKING FOR HANDICAPPED 11. Parkinson's disease without dyskinesia, unspecified whether manifestations fluctuate (HCC) - ICD9: 332.0, ICD10: G20.A1 - PARKING FOR HANDICAPPED 12. Fungal rash of trunk - ICD9: 111.9, ICD10: B36.9 - [place] 100,000 UNIT/GRAM TOPICAL POWDER 13. Obe (more content not included)... [facility] Urine Cultureon 06-23-2024 URC Mixed Gram Pos Gram Neg Org [place] Count <1000 MIXC Mixed contaminants. Submit a new specimen if indicated. Normal [facility] Comment on above: Performed By: #### M 100.2200, L400.0001 #### [facility] [address] [place], [address] Urinalysis, Completeon 06-21 BACTERIA 1+ /hpf Normal None Seen [facility] Comment on above: Order Comment: CLEAN CATCH Performed By: #### M 100.2200, L400.0001 #### [facility] [address] [place], [address] EPI,SQUAMOUS 0-5 SEEN Normal 0-5 [facility] Comment on above: Order Comment: CLEAN CATCH Performed By: #### M 100.2200, L400.0001 #### [facility] [address] [place], [address] RBC 5-10 SEEN Normal 0-5 [facility] Comment on above: Order Comment: CLEAN CATCH Performed By: #### M 100.2200, L400.0001 #### [facility] [address] [place], [address] WBC 0-5 SEEN Normal 0-5 [facility] Comment on above: Order Comment: CLEAN CATCH Performed By: #### M 100.2200, L400.0001 #### [facility] [address] [place], [address] Mucus Ql (Urine sed) 0 SEEN Normal [facility] Comment on above: Order Comment: CLEAN CATCH Performed By: #### M 100.2200, L400.0001 #### [facility] [address] [place], [address] CBC-Complete Blood Cnt No Di ffon 06-15-2024 Erythrocyte distribution width (RBC) [Ratio] 14.6 % Normal 11.6-14.6 [facility] Comment on above: Order Comment: 112.1 Performed By: #### L 100.0500, L500.2500 #### [facility] [address] [place], [address] Hematocrit (Bld) [Volume fraction] 39.7 % Low 40-54 [facility] Comment on above: Order Comment: 112.1 Performed By: #### L 100.0500, L500.2500 #### [facility] [address] [place], [address] Hemoglobin (Bld) [Mass/Vol] 12.5 g/dL Low 13.0-16.5 [facility] Comment on above: Order Comment: 112.1 Performed By: #### L 100.0500, L500.2500 #### [facility] [address] [place], [address] MCH (RBC) [Entitic mass] 29.2 pg Normal 27.0-32.0 [facility] Comment on above: Order Comment: 112.1 Performed By: #### L 100.0500, L500.2500 #### [facility] [address] [place], [address] MCHC (RBC) [Mass/Vol] 31.5 g/dL Low 32-36 [facility] Comment on above: Order Comment: 112.1 Performed By: #### L 100.0500, L500.2500 #### [facility] [address] [place], [address] MCV (RBC) [Entitic vol] 92.8 fL Normal 80-94 [facility] Comment on above: Order Comment: 112.1 Performed By: #### L 100.0500, L500.2500 #### [facility] [address] [place], [address] Platelet mean volume (Bld) [Entitic vol] 11.6 fL Normal 6.2-12.0 [facility] Comment on above: Order Comment: 112.1 Performed By: #### L 100.0500, L500.2500 #### [facility] [address] [place], [address] Platelets (Bld) [#/Vol] 305 10*3/uL Normal 150-450 [facility] Comment on above: Order Comment: 112.1 Performed By: #### L 100.0500, L500.2500 #### [facility] [address] [place], [address] RBC (Bld) [#/Vol] 4.28 10*6/uL Low 4.6-6.2 [facility] Comment on above: Order Comment: 112.1 Performed By: #### L 100.0500, L500.2500 #### [facility] [address] [place], [address] RDW SD 49.5 fl High 35.1-43.9 [facility] Comment on above: Order Comment: 112.1 Performed By: #### L 100.0500, L500.2500 #### [facility] [address] [place], [address] WBC (Bld) [#/Vol] 6.8 10*3/uL Normal 4.4-11.0 [facility] Comment on above: Order Comment: 112.1 Performed By: #### L 100.0500, L500.2500 #### [facility] [address] [place], [address] Comprehensive Metabolic Prof ilon 06-15-2024 Albumin [Mass/Vol] 3.3 g/dL Normal 3.2-5.0 [facility] Comment on above: Order Comment: 112.1 Performed By: #### L 100.0500, L500.2500 #### [facility] [address] [place], [address] Albumin/Globulin [Mass ratio] 0.9 {ratio} Normal 0.9-2.4 [facility] Comment on above: Order Comment: 112.1 Performed By: #### L 100.0500, L500.2500 #### [facility] [address] [place], [address] ALK P 125 U/L High 45-117 [facility] Comment on above: Order Comment: 112.1 Performed By: #### L 100.0500, L500.2500 #### [facility] [address] [place], [address] ALT [Catalytic activity/Vol] 20 U/L Normal 16-61 [facility] Comment on above: Order Comment: 112.1 Performed By: #### L 100.0500, L500.2500 #### [facility] [address] [place], [address] AST [Catalytic activity/Vol] 19 U/L Normal 15-37 [facility] Comment on above: Order Comment: 112.1 Performed By: #### L 100.0500, L500.2500 #### [facility] [address] [place], [address] Bilirubin [Mass/Vol] 0.40 mg/dL Normal 0.20-1.00 [facility] Comment on above: Order Comment: 112.1 Result Comment: For patients on eltrombopag therapy, use of Dimension Altura TBIL is not recommended. Performed By: #### L 100.0500, L500.2500 #### [facility] [address] [place], [address] BUN/CRE 16.9 RATIO Normal 10-20 [facility] Comment on above: Order Comment: 112.1 Performed By: #### L 100.0500, L500.2500 #### [facility] [address] [place], [address] CA,Total 9.3 mg/dL Normal 8.5-10.1 [facility] Comment on above: Order Comment: 112.1 Performed By: #### L 100.0500, L500.2500 #### [facility] [address] [place], [address] Chloride [Moles/Vol] 109 mmol/L High 98-107 [facility] Comment on above: Order Comment: 112.1 Performed By: #### L 100.0500, L500.2500 #### [facility] [address] [place], [address] CO2 [Moles/Vol] 27.0 mmol/L Normal 21.0-32.0 [facility] Comment on above: Order Comment: 112.1 Performed By: #### L 100.0500, L500.2500 #### [facility] [address] [place], [address] Creatinine [Mass/Vol] 0.77 mg/dL Normal 0.70-1.30 [facility] Comment on above: Order Comment: 112.1 Result Comment: The validity of the calculated GFR GFRAA in patients over 70 years has not been determined. Clinical correlation is essential. Performed By: #### L 100.0500, L500.2500 #### [facility] [address] [place], [address] EST GFR - AA 131 mL/min Normal >60 [facility] Comment on above: Order Comment: 112.1 Result Comment: Afri can [employer] GFR Calc Performed By: #### L 100.0500, L500.2500 #### [facility] [address] [place], [address] GAP 5 Normal 5-15 [facility] Comment on above: Order Comment: 112.1 Performed By: #### L 100.0500, L500.2500 #### [facility] [address] [place], [address] GFR/1.73 sq M.predicted among non-blacks MDRD (S/P/Bld) [Vol rate/Area] 108 mL/min/{1.73_m2} Normal >60 [facility] Comment on above: Order Comment: 112.1 Result Comment: Non- GFR Calc Performed By: #### L 100.0500, L500.2500 #### [facility] [address] [place], [address] Globulin (S) [Mass/Vol] 3.5 g/dL Normal 2.2-4.2 [facility] Comment on above: Order Comment: 112.1 Performed By: #### L 100.0500, L500.2500 #### [facility] [address] [place], [address] Glucose [Mass/Vol] 85 mg/dL Normal 74-106 [facility] Comment on above: Order Comment: 112.1 Performed By: #### L 100.0500, L500.2500 #### [facility] [address] [place], [address] Potassium [Moles/Vol] 4.0 mmol/L Normal 3.5-5.1 [facility] Comment on above: Order Comment: 112.1 Performed By: #### L 100.0500, L500.2500 #### [facility] [address] [place], [address] Sodium [Moles/Vol] 141 mmol/L Normal 136-145 [facility] Comment on above: Order Comment: 112.1 Performed By: #### L 100.0500, L500.2500 #### [facility] [address] [place], [address] T PROT 6.8 g/dL Normal 6.4-8.2 [facility] Comment on above: Order Comment: 112.1 Performed By: #### L 100.0500, L500.2500 #### [facility] [address] [place], [address] Urea nitrogen [Mass/Vol] 13 mg/dL Normal 7-18 [facility] Comment on above: Order Comment: 112.1 Performed By: #### L 100.0500, L500.2500 #### [facility] [address] [place], [place], [address] CBC W Auto Differential pane l (Bld)on 02-01-2024 Basophils (Bld) [#/Vol] 0.05 10*3/uL <0.11 k/uL [facility] Basophils/100 WBC (Bld) 0.7 % C [facility] Differential cell count method Nom (Bld) Auto [facility] Eosinophils (Bld) [#/Vol] 0.08 10*3/uL <0.46 k/uL [facility] Eosinophils/100 WBC (Bld) 1.1 % [facility] Erythrocyte distribution width (RBC) [Ratio] 15.0 % 11.5 - 15.0 % [facility] Hematocrit (Bld) [Volume fraction] 47.4 % 39.0 - 51.0 % [facility] Hemoglobin (Bld) [Mass/Vol] 15.3 g/dL 13.0 - 17.0 g/dL [facility] Immature granulocytes (Bld) [#/Vol] <0.10 k/uL [facility] Immature granulocytes/100 WBC (Bld) 0.3 % [facility] Lymphocytes (Bld) [#/Vol] 1.18 10*3/uL 1.00 - 4.00 k/uL [facility] Lymphocytes/100 WBC (Bld) 16.3 % [facility] MCH (RBC) [Entitic mass] 27.8 pg 26.0 - 34.0 pg [facility] MCHC (RBC) [Mass/Vol] 32.3 g/dL 30.5 - 36.0 g/dL [facility] MCV (RBC) [Entitic vol] 86.0 fL 80.0 - 100.0 fL [facility] Monocytes (Bld) [#/Vol] 0.53 10*3/uL <0.87 k/uL [facility] Monocytes/100 WBC (Bld) 7.3 % [facility] [facility] Neutrophils (Bld) [#/Vol] 5.38 10*3/uL 1.45 - 7.50 k/uL [facility] Neutrophils/100 WBC (Bld) 74.3 % [facility] Nucleated RBC (Bld) [#/Vol] <0.01 k/uL [facility] Nucleated RBC/100 WBC (Bld) [Ratio] 0.0 /100 WBC [facility] Platelet mean volume (Bld) [Entitic vol] 12.7 fL 9.0 - 12.7 fL [facility] Platelets (Bld) [#/Vol] 286 10*3/uL 150 - 400 k /uL [facility] RBC (Bld) [#/Vol] 5.51 10*6/uL 4.20 - 6.0 0 m/uL [facility] WBC (Bld) [#/Vol] 7.24 10*3/uL 3.70 - 11. 00 k/uL [facility] Comprehensive metabolic 2000 panelon 02-01-2024 Albumin [Mass/Vol] 4.0 g/dL 3.9 - 4.9 g/dL [facility] ALP [Catalytic activity/Vol] 136 U/L High 38 - 113 U/L [facility] ALT With P-5'-P [Catalytic activity/Vol] 17 U/L 10 - 54 U/L [facility] Anion gap [Moles/Vol] 11 mmol/L 9 - 18 mmol/L [facility] AST With P-5'-P [Catalytic activity/Vol] 20 U/L 14 - 40 U/L [facility] Bilirubin [Mass/Vol] 0.6 mg/dL 0.2 - 1 .3 mg/dL [facility] Calcium [Mass/Vol] 9.2 mg/dL 8.5 - 10. 2 mg/dL [facility] Chloride [Moles/Vol] 104 mmol/L 97 - 10 5 mmol/L [facility] CO2 [Moles/Vol] 26 mmol/L 22 - 30 mmol/L [facility] Creatinine [Mass/Vol] 1.21 mg/dL 0.73 - 1.22 mg/dL [facility] Estimated Glomerular Filtration Rate 66 mL/min/1.73m >=60 mL/min/1.73m [facility] Glucose [Mass/Vol] 88 mg/dL 74 - 99 mg/dL [facility] Potassium [Moles/Vol] 4.1 mmol/L 3.7 - 5.1 mmol/L [facility] Protein [Mass/Vol] 7.2 g/dL 6.3 - 8.0 g/dL [facility] Sodium [Moles/Vol] 141 mmol/L 136 - 144 mmol/L [facility] Urea nitrogen [Mass/Vol] 15 mg/dL 9 - 24 mg/dL [facility] HIV 1+2 Ab IA Qlon 4 HIV 1 and 2 Ab IA.rapid Nom (S/P/Bld) [facility] HIV 1+2 Ab+HIV1 p24 Ag IA Ql Non-Reactive Nonreactive [facility] HIV immunoassay testing algorithm interpretation (S/P/Bld) [Interp] [facility] Lipid 1996 panelon 4 Cholesterol [Mass/Vol] 191 mg/dL <200 mg/dL [facility] Cholesterol in HDL [Mass/Vol] 43 mg/dL >39 mg/dL [facility] Cholesterol in LDL [Mass/Vol] 109 mg/dL High <100 mg/dL [facility] Cholesterol in LDL/Cholesterol in HDL [Mass ratio] 2.53 {ratio} <2.54 [facility] Cholesterol in VLDL [Mass/Vol] 39 mg/dL High <30 mg/dL [facility] Cholesterol non HDL [Mass/Vol] 148 mg/dL High <130 mg/dL [facility] Cholesterol.total/Kelly sterol in HDL [Mass ratio] 4.44 {ratio} <5.10 [facility] Fasting Time 12 hrs [facility] Triglyceride [Mass/Vol] 194 mg/dL High <150 mg/dL [facility] PSA/PROSTSPECAG SCRNon 01-31 Prostate specific Ag [Mass/Vol] 5.20 ng/mL High <2.60 ng/mL [facility] TSH BLDon 02-01-2024 TSH Qn 1.000 m[IU]/L 0.270 - 4.200 mIU/L [facility] Basophil percentageon 2021 Bilirubin [Mass/Vol] 0.70 mg/dL 0.20-1.00 [facility] Work Phone: Comment on above: For patients on eltr ombopag therapy, use of Dimension [place] TBIL is not recommended. Chloride [Moles/Vol] 101 mmol/L 98-107 [facility] Work Phone: Glucose [Mass/Vol] 85 mg/dL 74-106 [facility] Work Phone: Potassium [Moles/Vol] 4.0 mmol/L 3.5-5.1 [facility] Work Phone: Protein [Mass/Vol] 7.1 g/dL 6.4-8.2 [facility] Work [facility]: Sodium [Moles/Vol] 137 mmol/L 136-145 [facility] Work Phone: WBC (Bld) [#/Vol] 7.3 10*3/uL 4.4-11.0 [facility] Work Phone: Blood erythrocytes count (nu mber/volume)on 09-14-2022 RBC (Bld) [#/Vol] 5.31 10*6/uL 4.6-6.2 [facility]: Blood hemoglobin measurement (mass/volume)on 09-14-2022 Hemoglobin (Bld) [Mass/Vol] 15.5 g/dL 13.0-16.5 [facility] Work Phone: Blood platelet mean volumeon 09-14-2022 Platelet mean volume (Bld) [Entitic vol] 11.3 fL 6.2-12.0 [facility] Work Phone: Determination of erythrocyte mean corpuscular volume (MCV)on 09-14-2022 MCV (RBC) [Entitic vol] 88.5 fL 80-94 [facility] Work Phone: Hematocrit Auto (Bld) [Volum e fraction]on 09-14-2022 Hematocrit (Bld) [Volume fraction] 47.0 % 40-54 [facility] Work Phone: Laboratory - Chemistry and C hemistry - challengeon 09-14-2022 ALP [Catalytic activity/Vol] 124 U/L 45-117 [facility] Work Phone: ALT [Catalytic activity/Vol] 24 U/L 16-61 [facility] Work Phone: CO2 [Moles/Vol] 29.0 mmol/L 21.0-32.0 [facility] Work Phone: Globulin (S) [Mass/Vol] 3.7 g/dL 2.2-4.2 [facility] Work Phone: Urea nitrogen/Creatinine [Mass ratio] 18.5 mg/mg 10-20 [facility] Work Phone: Laboratory - Hematology and Cell countson 09-14-2022 Erythrocyte distribution width (RBC) [Entitic vol] 45.0 fL 35.1-43.9 [facility] Work Phone: Erythrocyte distribution width (RBC) [Ratio] 14.0 % 11.6-14.6 [facility] Work Phone: MCH (RBC) [Entitic mass] 29.2 pg 27.0-32.0 [facility] Work Phone: MCHC Auto (RBC) [Mass/Vol]on 09-14-2022 MCHC (RBC) [Mass/Vol] 33.0 g/dL 32-36 [facility] Work Phone: No Panel Informationon 09-14 Estimated GFR (MDRD) Amer 100 mL/min >60 [facility] Work Phone: Comment on above: GFR Calc Estimated GFR (MDRD) Non-Af Amer 83 mL/min >60 [facility] Work Phone: Comment on above: Non- GFR Calc Platelets bldon 09-14-2022 Platelets (Bld) [#/Vol] 318 10*3/uL 150-450 [facility] Work Phone: Serum or plasma albumin gael urement (mass/volume)on 09-14-2022 Albumin [Mass/Vol] 3.4 g/dL 3.2-5.0 [facility] Work Phone: Serum or plasma albumin/glob ulin mass ratioon 09-14-2022 Albumin/Globulin [Mass ratio] 0.9 {ratio} 0.9-2.4 [facility] Work Phone: Serum or plasma calcium gael urement (mass/volume)on 09-14-2022 Calcium [Mass/Vol] 8.9 mg/dL 8.5-10.1 [facility] Work Phone: Serum or plasma creatinine m easurement (mass/volume)on 09-14-2022 Creatinine [Mass/Vol] 0.97 mg/dL 0.70-1.30 [facility] Work Phone: Comment on above: The validity of the calculated GFR & GFRAA in patients over 70 years has not been determined. Clinical correlation is essential. Serum or plasma urea nitroge n measurement (mass/volume)on 09-14-2022 Urea nitrogen [Mass/Vol] 18 mg/dL 7-18 [facility] Work Phone: Thin prep Papanicolaou smear with manual screeningon 09-14-2022 Thin prep Papanicolaou smear with manual screening 20 U/L 15-37 [facility] Work Phone: Thin prep Papanicolaou smear with manual screening 7 5-15 [facility] Work Phone: Laboratory - Microbiology an d Antimicrobial susceptibilityon 09-11-2022 SARS-CoV-2 (COVID-19) RNA ANALIA+probe Ql (Unsp spec) Detected Not Detect [facility] Work Phone: Comment on above: Normal Reference [...] ANALIA+probe Ql (Unsp spec) Detected Not Detect [facility] Work Phone: Comment on above: Normal Reference [...] DATE OF EXAM: Sep 12 2020 8:39PM [facility] 0504 - CT BRAIN WO IVCON / PROCEDURE REASON: Head trauma, headache Physician Interpretation CT OF HEAD AND CERVICAL SPINE CLINICAL HISTORY: C-spine trauma, NEXUS/CCR positive (accession [id number]), Head trauma, headache (accession [id number]) TECHNIQUE: Routine non-IV contrast axial scanning through [...] spine CT: No acute fracture or malalignment. Acid Operator: PSCB Transcribe Date/Time: Sep 12 2020 8:43P Dictated by : MARJ RICHARDSON MD This examination was interpreted and the report reviewed and electronically signed by: MARJ RICHARDSON MD on Sep 12 2020 8:50PM EST Normal [facility] CT CERVICAL SPINE WO IVCONon 09-12-2020 CT CERVICAL SPINE WO IVCON Final Report DATE OF EXAM: Sep 12 2020 8:39PM [facility] 0505 - CT CERVICAL SPINE WO IVCON / PROCEDURE REASON: C-spine trauma, NEXUS/CCR positive Physician Interpretation CT OF HEAD AND CERVICAL SPINE CLINICAL HISTORY: C-spine trauma, NEXUS/CCR positive (accession [id number]), Head trauma, headache (accession [id number]) TECHNIQUE: Routine non-IV contrast axial scanning through [...] spine CT: No acute fracture or malalignment. Acid Operator: PSCB Transcribe Date/Time: Sep 12 2020 8:43P Dictated by : MARJ RICHARDSON MD This examination was interpreted and the report reviewed and electronically signed by: MARJ RICHARDSON MD on Sep 12 2020 8:50PM EST Normal [facility] BLADDER SCAN [facility] Vital Signs Date Time Vital Sign Value Performing Clinician Facility 06-21-2025 12:56-0400 Body height 182.9 cm Anya Huang JURY CONSULTANT[employer] Work Phone: [facility] 06-21-2025 12:56-0400 Body mass index (BMI) [Ratio] 44.08 kg/m2 Anya Huang JURY CONSULTANT[employer] Work Phone: [facility] 06-21-2025 12:56-0400 Body weight 147.42 kg Anya Phelpsndangy JURY CONSULTANT.[employer] Work Phone: [facility] Comment on above: per last visit, pt in wheelchair 06-21-2025 12:56-0400 Diastolic blood pressure 74 mm[Hg] Anyarefugio Tatumaender JURY CONSULTANT.[employer] Work Phone: [facility] 06-21-2025 12:56-0400 Heart rate 57 /min Anyarefugio Phelpsnder JURY CONSULTANT[employer] Work Phone: [facility] 06-21-2025 12:56-0400 Systolic blood pressure 160 mm[Hg] Anya Hollaender JURY CONSULTANT.[employer] Work Phone: [facility] 06-11-2025 08:55-0400 Body height 182.9 cm Faith Moore JURY CONSULTANT.[employer] Work Phone: [facility] 06-11-2025 08:55-0400 Body mass index (BMI) [Ratio] 44.08 kg/m2 Faith Moore JURY CONSULTANT[employer] Work Phone: [facility] 06-11-2025 08:55-0400 Body temperature 98.1 [degF] Faith Moore JURY CONSULTANT[employer] Work Phone: [facility] 06-11-2025 08:55-0400 Body weight 147.42 kg Faith Moore JURY CONSULTANT.[employer] Work Phone: [facility] 06-11-2025 08:55-0400 Diastolic blood pressure 81 mm[Hg] Faith Moore JURY CONSULTANT.[employer] Work Phone: [facility] 06-11-2025 08:55-0400 Heart rate 57 /min Faith Moore JURY CONSULTANT.[employer] Work Phone: [facility] 06-11-2025 08:55-0400 SaO2% (BldA) [Mass fraction] 88 % Faith Moore JURY CONSULTANT[employer] Work Phone: [facility] 06-11-2025 08:55-0400 Systolic blood pressure 136 mm[Hg] Faith Moore JURY CONSULTANT.[employer] Work Phone: [facility] 02-22-2025 13:16-0400 Body height 182.9 cm Anya Huang JURY CONSULTANT.[employer] Work Phone: [facility] 02-22-2025 13:16-0400 Body mass index (BMI) [Ratio] 39.06 kg/m2 Anya Huang JURY CONSULTANT[employer] Work Phone: [facility] 02-22-2025 13:16-0400 Body weight 130.64 kg Anya Huang JURY CONSULTANT[employer] Work Phone: [facility] Comment on above: per last visit, pt in wheelchair 02-22-2025 13:16-0400 Diastolic blood pressure 70 mm[Hg] Anya Huang JURY CONSULTANT[employer] Work Phone: [facility] 02-22-2025 13:16-0400 Heart rate 63 /min Anya Huang JURY CONSULTANT[employer] Work Phone: [facility] 02-22-2025 13:16-0400 Systolic blood pressure 150 mm[Hg] Anya Huang APRN.[employer] Work Phone: [facility] 01-19-2025 10:05-0400 Body height 182.9 cm Leonard Patel MD Work Phone: [facility] 01-19-2025 10:05-0400 Body mass index (BMI) [Ratio] 39.06 kg/m2 Leonard Patel MD Work Phone: [facility] 01-19-2025 10:05-0400 Body weight 130.64 kg Leonard Patel MD Work Phone: [facility] 01-19-2025 10:05-0400 Diastolic blood pressure 82 mm[Hg] Leonard Patel MD Work Phone: [facility] 01-19-2025 10:05-0400 Heart rate 62 /min Leonard Patel MD Work Phone: [facility] 01-19-2025 10:05-0400 SaO2% (BldA) [Mass fraction] 97 % Leonard Patel MD Work Phone: [facility] 01-19-2025 10:05-0400 Systolic blood pressure 144 mm[Hg] Leonard Patel MD Work Phone: [facility] 12-12-2024 10:07-0500 Body height 182.9 cm Faith Moore JURY CONSULTANT.[employer] Work Phone: [facility] 12-12-2024 10:07-0500 Body temperature 97.7 [degF] Faith Moore APRN.[employer] Work Phone: [facility] 12-12-2024 10:07-0500 Diastolic blood pressure 70 mm[Hg] Faith Moore APRN.[employer] Work Phone: [facility] Comment on above: right wrist 12-12-2024 10:07-0500 Heart rate 68 /min Faith Moore JURY CONSULTANT.[employer] Work Phone: [facility] 12-12-2024 10:07-0500 SaO2% (BldA) [Mass fraction] 95 % Faith Moore APRN.[employer] Work Phone: [facility] 12-12-2024 10:07-0500 Systolic blood pressure 104 mm[Hg] Faith Moore JURY CONSULTANT.[employer] Work Phone: [facility] Comment on above: right wrist 10-27-2024 14:51-0500 Body height 182.9 cm Leonard Patel MD Work Phone: [facility] 10-27-2024 14:51-0500 Body mass index (BMI) [Ratio] 39.06 kg/m2 Leonard Patel MD Work Phone: [facility] 10-27-2024 14:51-0500 Body weight 130.64 kg Leonard Patel MD Work Phone: [facility] 10-27-2024 14:51-0500 Diastolic blood pressure 79 mm[Hg] Leonard Patel MD Work Phone: [facility] 10-27-2024 14:51-0500 Heart rate 65 /min Leonard Patel MD Work Phone: [facility] 10-27-2024 14:51-0500 SaO2% (BldA) [Mass fraction] 98 % Leonard Patel MD Work Phone: [facility] 10-27-2024 14:51-0500 Systolic blood pressure 132 mm[Hg] Leonard Patel MD Work Phone: [facility] 10-26-2024 10:35-0500 Body height 182.9 cm Anya Huang APRN.[employer] Work Phone: [facility] 10-26-2024 10:35-0500 Body mass index (BMI) [Ratio] 39.06 kg/m2 Anya Huang JURY CONSULTANT.[employer] Work Phone: [facility] 10-26-2024 10:35-0500 Body weight 130.64 kg Anyarefugio Huang JURY CONSULTANT.[employer] Work Phone: [facility] Comment on above: per last visit, pt in wheelchair 10-26-2024 10:35-0500 Diastolic blood pressure 72 mm[Hg] Anya Huang JURY CONSULTANT.[employer] Work Phone: [facility] 10-26-2024 10:35-0500 Heart rate 59 /min Anyarefugio Huang JURY CONSULTANT.[employer] Work Phone: [facility] 10-26-2024 10:35-0500 Systolic blood pressure 135 mm[Hg] Anya Huang JURY CONSULTANT.[employer] Work Phone: [facility] 10-13-2024 11:31-0500 Diastolic blood pressure 76 mm[Hg] Leonard Patel MD Work Phone: [facility] 10-13-2024 11:31-0500 Heart rate 71 /min Leonard Patel MD Work Phone: [facility] 10-13-2024 11:31-0500 Respiratory rate 16 /min Leonard Patel MD Work Phone: [facility] 10-13-2024 11:31-0500 SaO2% (BldA) [Mass fraction] 99 % Leonard Patel MD Work Phone: [facility] 10-13-2024 11:31-0500 Systolic blood pressure 146 mm[Hg] Leonard Patel MD Work Phone: [facility] 09-18-2024 13:12-0500 Body height 182.9 cm Karthik Holliday JURY CONSULTANT.[employer] Work Phone: [facility] 09-18-2024 13:12-0500 Body mass index (BMI) [Ratio] 39.06 kg/m2 Karthik Holliday JURY CONSULTANT.[employer] Work Phone: [facility] 09-18-2024 13:12-0500 Body weight 130.64 kg Karthik Mastrucci JURY CONSULTANT.[employer] Work Phone: [facility] 09-18-2024 13:12-0500 Diastolic blood pressure 103 mm[Hg] Karthik Mastrucci JURY CONSULTANT.[employer] Work Phone: [facility] 09-18-2024 13:12-0500 Heart rate 63 /min Karthik Mastrucci JURY CONSULTANT.RN [employer]IBILITY Work Phone: [facility] 09-18-2024 13:12-0500 Respiratory rate 18 /min Karthik Mastrucci JURY CONSULTANT.RN [employer]IGIBILITY Work Phone: [facility] 09-18-2024 13:12-0500 SaO2% (BldA) [Mass fraction] 95 % Karthik Mastrucci JURY CONSULTANT.[employer] Work Phone: [facility] 09-18-2024 13:12-0500 Systolic blood pressure 149 mm[Hg] Karthik Mastrucci JURY CONSULTANT.[employer]IGIBILITY Work Phone: [facility] 06-20-2024 10:29-0400 Body height 182.9 cm Leonard Patel MD Work Phone: [facility] 06-20-2024 10:29-0400 Diastolic blood pressure 84 mm[Hg] Leonard Patel MD Work Phone: [facility] 06-20-2024 10:29-0400 Heart rate 63 /min Leonard Patel MD Work Phone: [facility] 06-20-2024 10:29-0400 Respiratory rate 18 /min Leonard Patel MD Work Phone: [facility] 06-20-2024 10:29-0400 SaO2% (BldA) [Mass fraction] 97 % Leonard Patel MD Work Phone: [facility] 06-20-2024 10:29-0400 Systolic blood pressure 144 mm[Hg] Leonard Patel MD Work Phone: [facility] 05-30-2024 09:49-0400 Body height 182.9 cm Anya Hollaender JURY CONSULTANT.[employer]IBILITY Work Phone: [facility] 05-30-2024 09:49-0400 Body mass index (BMI) [Ratio] 47.88 kg/m2 Anya Hollaender JURY CONSULTANT.[employer] Work Phone: [facility] 05-30-2024 09:49-0400 Body weight 160.12 kg Anya Hollaender JURY CONSULTANT.RN [employer]IGIBILITY Work Phone: [facility] Comment on above: per last visit. pt in wheelchair 05-30-2024 09:49-0400 Diastolic blood pressure 67 mm[Hg] Anya Hollaender JURY CONSULTANT.RN [employer]IGIBILITY Work Phone: [facility] 05-30-2024 09:49-0400 Heart rate 72 /min Anya Hollaender JURY CONSULTANT.RN [employer]IGIBILITY Work Phone: [facility] 05-30-2024 09:49-0400 Systolic blood pressure 128 mm[Hg] Anya Hollaender JURY CONSULTANT.RN ELIGIBILITY Work Phone: [facility] 05-23-2024 11:01-0400 Body height 182.9 cm Leonard Patel MD Work Phone: [facility] 05-23-2024 11:01-0400 Diastolic blood pressure 77 mm[Hg] Leonard Patel MD Work Phone: [facility] 05-23-2024 11:01-0400 Heart rate 60 /min Leonard Patel MD Work Phone: [facility] 05-23-2024 11:01-0400 Respiratory rate 16 /min Leonard Patel MD Work Phone: [facility] 05-23-2024 11:01-0400 SaO2% (BldA) [Mass fraction] 98 % Leonard Patel MD Work Phone: [facility] 05-23-2024 11:01-0400 Systolic blood pressure 121 mm[Hg] Leonard Patel MD Work Phone: [facility] 05-22-2024 10:18-0400 Body height 182.9 cm Suellen Conley JURY CONSULTANT.RN [employer]IGIBILITY Work Phone: [facility] 05-22-2024 10:18-0400 Heart rate 68 /min Suellen Conley JURY CONSULTANT.RN ELIGIBILITY Work Phone: [facility] 05-22-2024 10:18-0400 SaO2% (BldA) [Mass fraction] 98 % Suellen Conley JURY CONSULTANT.RN [employer]IGIBILITY Work Phone: [facility] 05-09-2024 13:46-0400 Diastolic blood pressure 67 mm[Hg] Leonard Patel MD Work Phone: [facility] 05-09-2024 13:46-0400 Heart rate 64 /min Leonard Patel MD Work Phone: [facility] 05-09-2024 13:46-0400 Respiratory rate 20 /min Leonard Patel MD Work Phone: [facility] 05-09-2024 13:46-0400 SaO2% (BldA) [Mass fraction] 93 % Leonard Patel MD Work Phone: [facility] 05-09-2024 13:46-0400 Systolic blood pressure 110 mm[Hg] Leonard Patel MD Work Phone: [facility] 05-08-2024 10:58-0400 Diastolic blood pressure 52 mm[Hg] Jed Wolf MD Work Phone: [facility] 05-08-2024 10:58-0400 Systolic blood pressure 115 mm[Hg] Jed Wolf MD Work Phone: [facility] 05-08-2024 10:51-0400 Body height 182.9 cm Jed Wolf MD Work Phone: [facility] 05-08-2024 10:51-0400 Body mass index (BMI) [Ratio] 47.93 kg/m2 Jed Wolf MD Work Phone: [facility] 05-08-2024 10:51-0400 Body weight 160.3 kg Jed Wolf MD Work Phone: [facility] 05-08-2024 10:51-0400 Heart rate 56 /min Jed Wolf MD Work Phone: [facility] 05-08-2024 10:51-0400 SaO2% (BldA) [Mass fraction] 96 % Jed Wolf MD Work Phone: [facility] 02-01-2024 13:33-0400 Body height 182.9 cm Karthik Mastrucci JURY CONSULTANT.[employer]IBILITY Work Phone: [facility] 02-01-2024 13:33-0400 Body weight 142.88 kg Karthik Mastrucci JURY CONSULTANT.RN [employer]IGIBILITY Work Phone: [facility] 02-01-2024 13:33-0400 Diastolic blood pressure 85 mm[Hg] Karthik Mastrucci JURY CONSULTANT.RN [employer]IGIBILITY Work Phone: [facility] 02-01-2024 13:33-0400 Heart rate 57 /min Karthik Mastrucci JURY CONSULTANT.RN [employer]IGIBILITY Work Phone: [facility] 02-01-2024 13:33-0400 Respiratory rate 18 /min Karthik Mastrucci JURY CONSULTANT.RN [employer]IGIBILITY Work Phone: [facility] 02-01-2024 13:33-0400 SaO2% (BldA) [Mass fraction] 97 % Karthik Mastrucci JURY CONSULTANT.RN [employer]IGIBILITY Work Phone: [facility] 02-01-2024 13:33-0400 Systolic blood pressure 146 mm[Hg] Karthik Mastrucci JURY CONSULTANT.RN [employer]IGIBILITY Work Phone: [facility] 01-18-2023 14:14-0400 Body height 182.9 cm Patricia Winklergs PA-C Work Phone: [facility] 01-18-2023 14:14-0400 Diastolic blood pressure 73 mm[Hg] Patricia Lorenzonigs PA-C Work Phone: [facility] 01-18-2023 14:14-0400 Heart rate 79 /min Patricia Lorenzonigs PA-C Work Phone: [facility] 01-18-2023 14:14-0400 SaO2% (BldA) [Mass fraction] 97 % Patricia Petersongs PA-C Work Phone: [facility] 01-18-2023 14:14-0400 Systolic blood pressure 125 mm[Hg] Patricia Lorenzonigs PA-C Work Phone: [facility] 11-12-2022 14:02-0500 Body height 182.9 cm Rosalinda Foradis JURY CONSULTANT.RN [employer]IGIBILITY Work Phone: [facility] 11-12-2022 14:02-0500 Body weight 145.79 kg Rosalinda Foradis JURY CONSULTANT.RN [employer]IGIBILITY Work Phone: [facility] 11-12-2022 14:02-0500 Diastolic blood pressure 76 mm[Hg] Rosalinda Foradis JURY CONSULTANT.RN ELIGIBILITY Work Phone: [facility] 11-12-2022 14:02-0500 Heart rate 56 /min Rosalinda Foradis JURY CONSULTANT.RN [employer]IGIBILITY Work Phone: [facility] 11-12-2022 14:02-0500 Respiratory rate 12 /min Rosalinda Foradis JURY CONSULTANT.RN ELIGIBILITY Work Phone: [facility] 11-12-2022 14:02-0500 SaO2% (BldA) [Mass fraction] 95 % Rosalinda Foradis JURY CONSULTANT.RN ELIGIBILITY Work Phone: [facility] 11-12-2022 14:02-0500 Systolic blood pressure 124 mm[Hg] Rosalinda Olivas JURY CONSULTANT.RN ELIGIBILITY Work Phone: [facility] 10-29-2022 09:03-0500 Diastolic blood pressure 75 mm[Hg] Josse De Oliveira MD Work Phone: [facility] 10-29-2022 09:03-0500 Heart rate 60 /min Josse De Oliveira MD Work Phone: [facility] 10-29-2022 09:03-0500 SaO2% (BldA) [Mass fraction] 93 % Josse De Oliveira MD Work Phone: [facility] 10-29-2022 09:03-0500 Systolic blood pressure 149 mm[Hg] Josse De Oliveira MD Work Phone: [facility] 10-21-2022 15:20-0500 Diastolic blood pressure 94 mm[Hg] Paul Mccall MD Work Phone: [facility] 10-21-2022 15:20-0500 Heart rate 67 /min Paul Mccall MD Work Phone: [facility] 10-21-2022 15:20-0500 SaO2% (BldA) [Mass fraction] 96 % Paul Mccall MD Work Phone: [facility] 10-21-2022 15:20-0500 Systolic blood pressure 128 mm[Hg] Paul Mccall MD Work Phone: [facility] 09-01-2022 14:54-0400 Body height 182.9 cm Lianne Menon JURY CONSULTANT.RN ELIGIBILITY Work Phone: [facility] 09-01-2022 14:54-0400 Body weight 150.59 kg Lianne Menon JURY CONSULTANT.RN ELIGIBILITY Work Phone: [facility] 09-01-2022 14:54-0400 Diastolic blood pressure 72 mm[Hg] Lianne Menon JURY CONSULTANT.RN ELIGIBILITY Work Phone: [facility] 09-01-2022 14:54-0400 Heart rate 83 /min Lianne Menon JURY CONSULTANT.RN ELIGIBILITY Work Phone: [facility] 09-01-2022 14:54-0400 Respiratory rate 16 /min Lianne Menon JURY CONSULTANT.RN ELIGIBILITY Work Phone: [facility] 09-01-2022 14:54-0400 SaO2% (BldA) [Mass fraction] 97 % Lianne Menon JURY CONSULTANT.RN ELIGIBILITY Work Phone: [facility] 09-01-2022 14:54-0400 Systolic blood pressure 128 mm[Hg] Lianne Menon JURY CONSULTANT.RN ELIGIBILITY Work Phone: [facility] 05-08-2022 07:21-0400 Body height 182.9 cm Rosalinda Forkevins JURY CONSULTANT.RN ELIGIBILITY Work Phone: [facility] 05-08-2022 07:21-0400 Body temperature 97.7 [degF] Rosalinda Shearers JURY CONSULTANT.RN ELIGIBILITY Work Phone: [facility] 05-08-2022 07:21-0400 Body weight 139.25 kg Rosalinda Albertoadis JURY CONSULTANT.RN ELIGIBILITY Work Phone: [facility] 05-08-2022 07:21-0400 Diastolic blood pressure 93 mm[Hg] Rosalinda Foradis JURY CONSULTANT.RN ELIGIBILITY Work Phone: [facility] 05-08-2022 07:21-0400 Heart rate 69 /min Rosalinda Albertoadis JURY CONSULTANT.RN ELIGIBILITY Work Phone: [facility] 05-08-2022 07:21-0400 Respiratory rate 20 /min Rosalinda Foradis JURY CONSULTANT.RN ELIGIBILITY Work Phone: [facility] 05-08-2022 07:21-0400 SaO2% (BldA) [Mass fraction] 98 % Rosalinda Foradis JURY CONSULTANT.RN ELIGIBILITY Work Phone: [facility] 05-08-2022 07:21-0400 Systolic blood pressure 143 mm[Hg] Rosalinda Albertoadis JURY CONSULTANT.RN ELIGIBILITY Work Phone: [facility] 04-10-2022 11:12-0400 Body height 15.2 cm Clint Euceda Jr., MD Work Phone: [facility] 04-10-2022 11:12-0400 Body weight 143.06 kg Clint Euceda Jr., MD Work Phone: [facility] 04-10-2022 11:12-0400 Diastolic blood pressure 88 mm[Hg] Clint Euceda Jr., MD Work Phone: [facility] 04-10-2022 11:12-0400 Heart rate 60 /min Clint Euceda Jr., MD Work Phone: [facility] 04-10-2022 11:12-0400 Respiratory rate 15 /min Clint Euceda Jr., MD Work Phone: [facility] 04-10-2022 11:12-0400 SaO2% (BldA) [Mass fraction] 97 % Clint Euceda Jr., MD Work Phone: [facility] 04-10-2022 11:12-0400 Systolic blood pressure 155 mm[Hg] Clint Euceda Jr., MD Work Phone: [facility] 02-19-2022 13:17-0400 Body height 182.9 cm Paul Lorenz MD Work Phone: [facility] 02-19-2022 13:17-0400 Body temperature 98.01 [degF] Paul Lorenz MD Work Phone: [facility] 02-19-2022 13:17-0400 Body weight 145.79 kg Paul Lorenz MD Work Phone: [facility] 02-19-2022 13:17-0400 Diastolic blood pressure 76 mm[Hg] Paul Lorenz MD Work Phone: [facility] 02-19-2022 13:17-0400 Heart rate 85 /min Paul Lorenz MD Work Phone: [facility] 02-19-2022 13:17-0400 Systolic blood pressure 128 mm[Hg] Paul Lorenz MD Work Phone: [facility] Encounters Encounter Date Encounter Type Care Provider Facility Start: 06-21-2025 End: 06-21-2025 Patient encounter procedure Anya Phelpsradhaangy JURY CONSULTANT.RN ELIGIBILITY Work Phone: Cerebrovascular Comment on above: Spastic hemiparesis of left dominant side as late effect of cerebral infarction (HCC) (Primary Dx); Silent micro-hemorrhage of brain (HCC); Atrial flutter, unspecified type (HCC); Essential hypertension; Dyslipidemia Start: 06-21-2025 End: 06-21-2025 ambulatory ANYA SAL Facility:[facility] Start: 06-11-2025 End: 06-11-2025 Patient encounter procedure Faith Moore JURY CONSULTANT.RN ELIGIBILITY Work Phone: [facility] Start: 06-11-2025 End: 06-11-2025 ambulatory Faith Moore JURY CONSULTANT.RN ELIGIBILITY Work Phone: [facility] Hematology/Oncology Comment on above: Multiple subsegmenta l pulmonary emboli without acute cor pulmonale (HCC) (Primary Dx); Acute deep vein thrombosis (DVT) of proximal vein of lower extremity, unspecified laterality (HCC) Start: 05-21-2025 ambulatory Violette Roth lity:[facility] Start: 05-14-2025 ambulatory CANDELARIO Mckeon y:[facility] Start: 05-14-2025 End: 05-14-2025 Subsequent hospital visit by physician Ekg/Holter/Event Monitor [facility] GENERAL CARDIAC TESTING Comment on above: 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 [T82.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] Start: 05-08-2025 End: 05-08-2025 Telephone encounter Orly Valencia MD Work Phone: [facility] Cardiology [facility] Comment on above: Atrial flutter, unsp ecified type (HCC) (Primary Dx) Start: 03-20-2025 End: 03-20-2025 [facility] Start: 03-20-2025 End: 03-20-2025 Departed Referred [facility]te [facility]di [facility] Start: 03-20-2025 End: 03-20-2025 ambulatory Violette Schwartzmelanie STEFANY Facility:[facility] Start: 03-14-2025 End: 03-14-2025 ambulatory Madina Amador RN [facility] [employer] Start: 03-14-2025 End: 03-14-2025 Home visit Madina Amador RN AG Ecological Risk Assessor Comment on above: 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 Care ( SNF update - longterm resident ) Start: 02-22-2025 End: 02-22-2025 Patient encounter procedure Anya Huang APRN.CNP Work Phone: Cerebrovascular Comment on above: Spastic hemiparesis of left dominant side as late effect of cerebral infarction (HCC) (Primary Dx); Silent micro-hemorrhage of brain (HCC); Atrial flutter, unspecified type (HCC); Essential hypertension; Dyslipidemia Start: 02-22-2025 End: 02-22-2025 ambulatory [facility] Facility:[facility] Start: 02-05-2025 End: 02-05-2025 ambulatory Violette MCCALL [facility] Work Phone: Start: 02-05-2025 End: 02-05-2025 [facility] Start: 02-05-2025 Registered Referred Violette Lanaemily [facility] Start: 02-05-2025 End: 02-05-2025 ambulatory Violette Trinidad MCCALL Facility:[facility] Start: 01-20-2025 End: 01-20-2025 Orders Only Candelario Schwartz MD Work Phone: Cardiology Comment on above: 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 (Primary Dx) Start: 01-19-2025 End: 01-19-2025 Patient encounter procedure Leonard Patel MD Work Phone: [facility] Comment on above: Intracranial meningi javed (HCC) (Primary Dx); Traumatic subdural hematoma with loss of consciousness, sequela (HCC) Start: 01-19-2025 End: 01-19-2025 ambulatory KARTHIK MASTRUCCI Facility:[facility] Start: 01-18-2025 End: 01-18-2025 ambulatory Karthik Mastrucci FELIX.RN ELIGIBILITY Work Phone: [facility] Comment on above: Eyes doctor Start: 01-16-2025 ambulatory KARTHIK MONTESRUCCI Facili ty:[facility] Start: 01-16-2025 End: 01-16-2025 Subsequent hospital visit by physician Mri [facility] (I-Stat/Lg Bore/1.5t) Work Phone: [facility] Comment on above: Intracranial meningi javed (HCC) [D32.0] Start: 01-08-2025 End: 01-08-2025 ambulatory Violette MCCALL [facility] Work Phone: Start: 01-08-2025 End: 01-08-2025 Departed Referred Violette bAdi -[facility] Start: 01-08-2025 End: 01-08-2025 ambulatory Violette MCCALL Facility:[facility] Start: 12-14-2024 End: 12-14-2024 ambulatory Faith Moore APRN.RN ELIGIBILITY Work Phone: [facility] Hematology/Oncology Comment on above: the rest of results Start: 12-14-2024 End: 12-14-2024 E-mail encounter from caregiver Faith Moore APRN.RN ELIGIBILITY Work Phone: [facility] Hematology/Oncology Start: 12-12-2024 End: 12-12-2024 Patient encounter procedure Faith Moore APRN.RN ELIGIBILITY Work Phone: [facility] Start: 12-12-2024 End: 12-12-2024 ambulatory Faith Moore APRN.RN ELIGIBILITY Work Phone: [facility] Hematology/Oncology Comment on above: Multiple subsegmenta l pulmonary emboli without acute cor pulmonale (HCC); Acute deep vein thrombosis (DVT) of proximal vein of lower extremity, unspecified laterality (HCC) Start: 12-01-2024 End: 12-01-2024 Telephone encounter Karthik Holliday APRN.RN ELIGIBILITY Work Phone: [facility] Comment on above: Medication Problem Start: 11-29-2024 End: 11-29-2024 Telephone encounter Karthik Holliday FORD Work Phone: [facility] Start: 11-28-2024 End: 11-28-2024 Telemedicine consultation with patient Karthik Holliday FELIX.CHAN Work Phone: [facility] Start: 11-28-2024 End: 11-28-2024 ambulatory Karthik Holliday JURY CONSULTANT.RN ELIGIBILITY Work Phone: [facility] Comment on above: Depression, unspecif ied depression type (Primary Dx) Start: 11-06-2024 End: 11-06-2024 Departed Referred Violette Abdi [facility] Start: 11-06-2024 End: 11-06-2024 ambulatory Violette MCCALL Facility:[facility] Start: 10-27-2024 End: 10-27-2024 Patient encounter procedure Leonard Patel MD Work Phone: [facility] Comment on above: Intracranial meningi javed (HCC) (Primary Dx); Benign neoplasm of meninges (HCC) Start: 10-27-2024 End: 10-27-2024 ambulatory KARTHIK BARKSDALECCManisha Facility:[facility] Start: 10-27-2024 End: 10-27-2024 Subsequent hospital visit by physician [facility] SCAN [place] PAINTER SUPERVISOR Comment on above: Traumatic subdural h ematoma with loss of consciousness, sequela (HCC) [S06.5X9S] Start: 10-26-2024 End: 10-26-2024 Telephone encounter Anya Huang APRN.CNP Work Phone: Cerebrovascular Comment on above: Consult [...] hypertension; Dyslipidemia Start: 10-26-2024 End: 10-26-2024 ambulatory [facility] Facility:[facility] Start: 10-13-2024 End: 10-13-2024 Patient encounter procedure Leonard Patel MD Work Phone: [facility] Comment on above: Traumatic subdural h ematoma with loss of consciousness, sequela (HCC) (Primary Dx); Intracranial meningioma (HCC) Start: 10-13-2024 End: 10-13-2024 ambulatory [facility] Facility:[facility] Start: 10-10-2024 End: 10-10-2024 Telephone encounter Agata Del Toro APRN.CNP Work Phone: [facility] Comment on above: Results Start: 10-06-2024 ambulatory Violette Gloveri lity:[facility] Start: 10-04-2024 End: 10-04-2024 Telephone encounter Anya Huang APRN.CNP Work Phone: Neurology Start: 10-02-2024 [facility] Start: 10-02-2024 End: 10-02-2024 Subsequent hospital visit by physician Mri 3 [facility] (I-Stat/Lg Bore/1.5t) Work Phone: [facility] Comment on above: Silent micro-hemorrh age of brain (HCC) [I61.8] Start: 09-29-2024 End: 09-29-2024 ambulatory Madina RILEY Ecological Risk Assessor Start: 09-29-2024 End: 09-29-2024 Home visit Madina RILEY Ecological Risk Assessor Comment on above: 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 Care ( [facility] Discharge to [facility] ) Start: 09-23-2024 End: 09-28-2024 [facility] Start: 09-21-2024 End: 09-21-2024 ambulatory Magda Del Angel RN NURSE ABNORMAL PSYCHOLOGY TEACHER Comment on above: High blood pressure Start: 09-20-2024 End: 09-20-2024 Telephone encounter Karthik Holliday APRN.CNP Work Phone: [facility] Comment on above: Patient Update Start: 09-18-2024 End: 09-18-2024 Patient encounter procedure Karthik Holliday APRN.CNP Work Phone: [facility] Comment on above: Hospital discharge f ollow-up [...] obesity) (HCC) Start: 09-18-2024 End: 09-18-2024 ambulatory [facility] Facility:[facility]ero Start: 09-11-2024 End: 09-11-2024 ambulatory Madina Amador RN AG Ecological Risk Assessor Start: 09-11-2024 End: 09-11-2024 Home visit Madina Amador RN Ecological Risk Assessor Comment on above: 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 Care ( Discharged from [facility] to home) Initial phone contac t for Transitional Care Management Start: 07-05-2024 End: 07-05-2024 Refill Karthik Holliday APRN.CNP Work Phone: [facility] Comment on above: Refill Request Start: 06-22-2024 E-mail encounter augie montgomery caregiver Nithya Riggs APRN.CNP Work Phone: [facility] Start: 06-22-2024 Follow-up encounter Nithya Riggs APRN.RN ELIGIBILITY Work Phone: [facility] Comment on above: Actionable Finding f ollow up Start: 06-20-2024 End: 06-20-2024 Patient encounter procedure Leonard Patel MD Work Phone: [facility] Comment on above: Traumatic subdural h ematoma with loss of consciousness, sequela (HCC) (Primary Dx) Start: 06-20-2024 End: 06-20-2024 Subsequent hospital visit by physician [facility] SCAN [place] [employer] SUPERVIS[employer] Comment on above: Traumatic subdural h ematoma with loss of consciousness, sequela (HCC) [S06.5X9S] Start: 06-20-2024 End: 06-20-2024 ambulatory Violette Abdi OLS Facility:[facility] Start: 06-15-2024 ambulatory Violette Katsaros Facility :[facility] Start: 06-15-2024 End: 06-15-2024 ambulatory Peter Lanasaros OLS Facility:[facility] Start: 06-08-2024 ambulatory Madina Amador RN AG Amb ulatory Care Start: 06-08-2024 Home visit Madina Amador RN AG Amb [facility] Care Comment on above: 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 Start: 06-07-2024 Telephone encounter Femi Segovia) Kylee shepard [facility] CARDIAC TESTING Start: 06-02-2024 E-mail encounter augie m caregiver Nithya Riggs APRN.RN ELIGIBILITY Work Phone: [facility] Start: 06-02-2024 Follow-up encounter Nithya Riggs APRN.RN ELIGIBILITY Work Phone: [facility] Comment on above: Actionable Finding F ollow up Start: 05-30-2024 End: 05-30-2024 Patient encounter procedure Anya Huang APRN.RN ELIGIBILITY Work Phone: Cerebrovascular Comment on above: Hemiparesis affectin g left side as late effect of cerebrovascular accident (HCC) (Primary Dx); Aphasia as late effect of cerebrovascular accident; Silent micro-hemorrhage of brain (HCC); Subdural hematoma (HCC); SAH (subarachnoid hemorrhage) (HCC); Atrial flutter, unspecified type (HCC); Essential hypertension; Dyslipidemia Start: 05-23-2024 End: 05-23-2024 Patient encounter procedure Leonard Patel MD Work Phone: [facility] Comment on above: Traumatic subdural h ematoma with loss of consciousness, sequela (HCC) (Primary Dx); Intracranial meningioma (HCC) Start: 05-23-2024 End: 05-23-2024 Subsequent hospital visit by physician [facility] 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 Comment on above: Traumatic subdural h ematoma with loss of consciousness, sequela (HCC) [S06.5X9S] Start: 05-22-2024 ambulatory Madina Amador RN AG Amb ulatory Care Start: 05-22-2024 Home visit Madina Amador RN AG Amb ulatory Care Comment on above: 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 Start: 05-22-2024 End: 05-22-2024 Office outpatient visit 15 minutes Suellen Conley APRN.CNP Work Phone: [facility] Comment on above: Benign prostatic hyp erplasia with urinary retention (Primary Dx) Start: 05-17-2024 Telephone encounter Paul Mccall MD Work Phone: [facility] Start: 05-09-2024 End: 05-09-2024 Patient encounter procedure Lenoard Patel MD Work Phone: [facility] Comment on above: Traumatic subdural h ematoma with loss of consciousness, sequela (HCC) (Primary Dx); Intracranial meningioma (HCC) Start: 05-09-2024 End: 05-09-2024 Subsequent hospital visit by physician 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 Comment on above: SDH (subdural hemato ma) (HCC) [S06.5XAA] Start: 05-08-2024 End: 05-08-2024 Patient encounter procedure Jed Wolf MD Work Phone: Cardiology Comment on above: Atrial flutter, unsp ecified type (HCC) (Primary Dx); Subdural hematoma (HCC); History of ischemic stroke Start: 05-05-2024 Telephone encounter Agata Jean-Baptistemarina foote JURY CONSULTANT.RN ELIGIBILITY Work Phone: [facility] Comment on above: Patient Update Results Start: 05-04-2024 Orders Only Jed Wolf MD Work Phone: Cardiology Comment on above: Atrial flutter, unsp ecified type (HCC) (Primary Dx) Start: 05-03-2024 Telephone encounter Anya arciniega JURY CONSULTANT.RN ELIGIBILITY Work Phone: NEUROLOGY Comment on above: Results Start: 04-27-2024 End: 09-11-2024 ambulatory Karthik Mastrucci JURY CONSULTANT.RN ELIGIBILITY Work Phone: [facility] Comment on above: Hospital F/U Opened In Error Start: 04-26-2024 ambulatory Karthik Mastruc ci JURY CONSULTANT.RN ELIGIBILITY Work Phone: [facility] Comment on above: Hospital F/U Start: 04-26-2024 Home visit Madina Amador RN AG Amb ulatory Care Comment on above: 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 Care ( [facility] Discharge to [facility]) Start: 04-23-2024 Orders Only Scott travis JURY CONSULTANT.RN ELIGIBILITY Work Phone: [facility] Comment on above: SDH (subdural hemato ma) (HCC) (Primary Dx) Start: 04-17-2024 ambulatory Karthik Mastruc ci JURY CONSULTANT.RN ELIGIBILITY Work Phone: [facility] Start: 02-14-2024 Telephone encounter Karthik hussein JURY CONSULTANT.RN ELIGIBILITY Work Phone: [facility] Comment on above: Results Start: 02-09-2024 Refill Karthik Mastruc ci JURY CONSULTANT.RN ELIGIBILITY Work Phone: [facility] Comment on above: Refill Request Start: 02-02-2024 Telephone encounter Karthik hussein FELIX.RN ELIGIBILITY Work Phone: [facility] Comment on above: Results Start: 02-01-2024 End: 02-01-2024 Patient encounter procedure Karthik Holliday JURY CONSULTANT.RN ELIGIBILITY Work Phone: [facility] Comment on above: Encounter to [facility] (Primary Dx); Essential hypertension; Dyslipidemia; Benign prostatic hyperplasia with lower urinary tract symptoms, symptom details unspecified; Screening for HIV (human immunodeficiency virus); Vitamin D deficiency; Screening for prostate cancer; Depression, unspecified depression type; Encounter for immunization; Venous insufficiency; Localized swelling of left lower leg Start: 03-01-2023 Telephone encounter Clint Euceda MD Work Phone: [facility] Comment on above: Appointment (Cancell ation) Start: 02-01-2023 Refill Clint Euceda MD Work Phone: [facility] Comment on above: Refill Request Start: 02-01-2023 Telephone encounter Clint Euceda MD Work Phone: [facility] Comment on above: Appointment (Cancell ation) Start: 01-18-2023 End: 01-18-2023 Patient encounter procedure Patricia Hsu PA-C Work Phone: Neu[facility] Gnostic[facility] Comment on above: Parkinsonism, unspec ified Parkinsonism type (HCC) (Primary Dx) Start: 12-17-2022 Refill Clint Euceda MD Work Phone: [facility] Comment on above: Refill Request Start: 12-01-2022 ambulatory Dayan Mina RN Work Phone: [facility] Start: 12-01-2022 Follow-up encounter Dayan dhillon RN Work Phone: [facility] Ecological Risk Assessor Comment on above: 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 Care ( TCM PNA follow up call) Start: 11-24-2022 ambulatory Dayan Mina RN Work Phone: [facility] Start: 11-24-2022 Follow-up encounter Dayan Vianney Tristian dhillon RN Work Phone: [facility] Ecological Risk Assessor Comment on above: 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 Care ( TCM PNA follow up call) Start: 11-17-2022 ambulatory Dayan Mina RN Work Phone: [facility] Start: 11-17-2022 Follow-up encounter Dayan Vianney Tristian dhillon RN Work Phone: AG Ecological Risk Assessor Comment on above: 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 Care ( TCM follow up call) Start: 11-12-2022 End: 11-12-2022 Patient encounter procedure Rosalinda Olivas APRN.CNP Work Phone: [facility] Comment on above: Hospital discharge f ollow-up (Primary Dx); Essential hypertension; Pneumonia due to influenza A virus; Weakness; Balance problem Start: 11-10-2022 ambulatory Dayan Mina RN Work Phone: [facility] Start: 11-10-2022 Follow-up encounter Dayan Vianney Tristian dhillon RN Work Phone: Ecological Risk Assessor Comment on above: 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 Care ( TCM follow up call) Start: 11-10-2022 Telephone encounter Josse balbuena MD Work Phone: Neu[facility] Comment on above: Medication Problem Start: 10-29-2022 End: 10-29-2022 Patient encounter procedure Josse De Oliveira MD Work Phone: Neurological Gnosticist Comment on above: Parkinsonism, unspec ified Parkinsonism type (HCC) (Primary Dx); HARJEET (obstructive sleep apnea) Start: 10-21-2022 End: 10-21-2022 Patient encounter procedure Paul Mccall MD Work Phone: Urology Comment on above: Benign prostatic hyp erplasia with lower urinary tract symptoms, symptom details unspecified (Primary Dx); Urinary frequency Start: 10-08-2022 Patient Outreach Moo Faith G Ecological Risk Assessor Comment on above: 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 Care ( [facility] from [facility] 10/05/22) Start: 10-07-2022 End: 10-07-2022 ambulatory Josse De Oliveira MD Work Phone: Neurology Comment on above: Shuffling gait (Prim heydi Dx); Gait instability Start: 10-07-2022 End: 10-07-2022 Telemedicine consultation with patient Josse De Oliveira MD Work Phone: [facility] Start: 09-29-2022 Patient Outreach Moo Mello Ecological Risk Assessor Comment on above: 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 Care ( SNF update) Start: 09-24-2022 Telephone encounter Clint Euceda MD Work Phone: [facility] [place] Comment on above: Referral Information (Consult to Neurology # [id number]) Start: 09-22-2022 ambulatory Clint Euceda MD Work Phone: Ecological Risk Assessor Start: 09-21-2022 Patient Outreach Moo Mello Ecological Risk Assessor Comment on above: 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 Care Start: 09-17-2022 Telephone encounter Clint Euceda MD Work Phone: [facility] Comment on above: Patient Question (Pt would like to see Neurology to investigate possibility of Parkinsonism.) Start: 09-14-2022 End: 09-14-2022 [facility]ed [facility] Start: 09-14-2022 Registered Referred [facility] Start: 09-11-2022 End: 09-11-2022 ambulatory [facility] Work Phone: Start: 09-11-2022 End: 09-11-2022 Departed [facility] Start: 09-09-2022 End: 09-09-2022 ambulatory [facility] Work Phone: Start: 09-09-2022 End: 09-09-2022 Departed [facility] Start: 09-09-2022 Registered Referred [facility] Start: 09-08-2022 Telephone encounter Layne Cruz JURY CONSULTANT.RN ELIGIBILITY Work Phone: [facility] Comment on above: Hospital F/U Start: 09-07-2022 Patient Outreach Moo Faith G Ecological Risk Assessor Comment on above: 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 Care ( Dc [facility] to SNF 09/06/22) Start: 09-03-2022 Telephone encounter Paul Mccall MD Work Phone: [facility] Start: 09-03-2022 End: 09-03-2022 Patient encounter procedure Mitzi Matsonpatsy JURY CONSULTANT.RN ELIGIBILITY Work Phone: Urology Comment on above: NO SHOW (Primary Dx) Start: 09-01-2022 End: 09-01-2022 Patient encounter procedure Lianne Barbourye JURY CONSULTANT.RN ELIGIBILITY Work Phone: [facility] Comment on above: Fall, initial encoun ter (Primary Dx); Balance problem; Fatigue, unspecified type Start: 05-08-2022 End: 05-08-2022 Patient encounter procedure Rosalinda Olivas JURY CONSULTANT.RN ELIGIBILITY Work Phone: [facility] Comment on above: Chronic midline thor acic back pain (Primary Dx); Dyslipidemia; Balance problem Start: 04-10-2022 End: 04-10-2022 Patient encounter procedure Clint Euceda MD Work Phone: [facility] Comment on above: Benign prostatic hyp erplasia with lower urinary tract symptoms, symptom details unspecified (Primary Dx); Essential hypertension; Dyslipidemia Start: 03-23-2022 Refill Jay muniz MD Work Phone: [facility] Internal [facility] ([facility]) Comment on above: Refill Request (Lipi tor) Start: 02-19-2022 End: 02-19-2022 Patient encounter procedure Paul Lorenz MD Work Phone: [facility] Comment on above: Essential hypertensi on (Primary Dx); 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 Procedures Date Procedure Procedure Detail Performing Clinician Start: 02-22-2025 Follow-up visit Follow Up FELICITA HUANG Start: 09-18-2024 Adult depression scr eening assessment Karthik Mastrucci JURY CONSULTANT.RN ELIGIBILITY Work Phone: Start: 04-18-2024 Lipid 1996 panel - S osvaldo or Plasma Karthik Mastrucci JURY CONSULTANT.RN ELIGIBILITY Work Phone: Start: 02-01-2024 Lipid 1996 panel - S osvaldo or Plasma Karthik Mastrucci JURY CONSULTANT.RN ELIGIBILITY Work Phone: Start: 10-21-2022 BLADDER SCAN Paul Mccall MD Work Phone: Start: 01-19-2022 Adult depression scr eening assessment Paul Lorenz MD Work Phone: Start: 10-22-2020 Colonoscopy Paul waller MD Work Phone: Plan of Treatment Date Care Activity Detail Author Start: 07-02-2030 Urine microalbumin profile [facility] Start: 04-18-2029 Lipid panel Lipid Screening [facility] Start: 01-31-2029 Lipid panel Lipid Screening [facility] Start: 01-31-2029 Prostate specific antigen measurement Prostate Cancer Screening Discussion [facility] Start: 12-12-2027 Diabetes Screening Diabetes Screening [facility] Start: 09-27-2027 Diabetes Screening Diabetes Screening [facility] Start: 06-06-2027 Diabetes Screening Diabetes Screening [facility] Start: 05-18-2027 Diabetes Screening Diabetes Screening [facility] Start: 05-07-2027 Diabetes Screening Diabetes Screening [facility] Start: 04-22-2027 Diabetes Screening Diabetes Screening [facility] Start: 04-17-2027 Diabetes Screening Diabetes Screening [facility] Start: 01-31-2027 Diabetes Screening Diabetes Screening [facility] Start: 11-08-2026 Screening for malignant neoplasm of colon Colorectal Cancer Screening [facility] Comment on above: Postponed from 01/26/2004 (Postponed To Appropriate Date) Start: 12-12-2025 BP Controlled (<130/80) BP Controlled (<130/80) [facility] Start: 12-10-2025 End: 12-10-2025 ambulatory 12/10/2025 10:00 AM EST Visit (SP) Office [facility] [address] [place] [address] Faith Moore, JURY CONSULTANT.RN ELIGIBILITY [address] [place] [address] 6mo ov [facility] Comment on above: 6mo ov Start: 11-28-2025 Annual PCP Team Chronic Disease Visit Annual PCP Team Chronic Disease Visit [facility] Start: 11-21-2025 End: 11-21-2025 Patient encounter procedure 11/21/2025 1:30 PM EST Office Visit [facility] [address] [place], [place] [phone] Anya Huang, JURY CONSULTANT.RN ELIGIBILITY [address] [place], [place] [id number] 5 month follow up [facility] Comment on above: 5 month follow up Start: 11-01-2025 DIABETES SCREEN DIABETES SCREEN [facility] Start: 11-01-2025 Diabetes Screening Diabetes Screening [facility] Start: 10-29-2025 DIABETES SCREEN DIABETES SCREEN [facility] Start: 09-18-2025 Annual PCP Team Chronic Disease Visit Annual PCP Team Chronic Disease Visit [facility] Start: 09-18-2025 Anxiety Screening Anxiety Screening [facility] Start: 09-18-2025 Depression Screening Depression Screening [facility] Start: 09-17-2025 End: 09-17-2025 Patient encounter procedure 09/17/2025 8:20 AM EST Office Visit [facility] [address] [place] [address] Orly Valencia MD [address] [place] [address] Wolf ([facility]) Franco [facility] Comment on above: DEBBI from Dr. Wolf ([facility]) Maria Luisa tter Start: 09-03-2025 DIABETES SCREEN DIABETES SCREEN [facility] Start: 09-01-2025 DIABETES SCREEN DIABETES SCREEN [facility] Start: 07-09-2025 Influenza vaccination Influenza Vaccine (#1) [facility] Start: 06-28-2025 End: 06-28-2025 Patient encounter procedure 06/28/2025 3:20 PM EDT Office Visit [facility] [address] [place] [address] Orly Valencia MD [address] [place] [address] Wolf ([facility]) Artial Flutter [facility] Comment on above: DEBBI from Dr. Wolf ([facility]) Jacquelyn al Flutter Start: 06-21-2025 End: 06-21-2025 Patient encounter procedure 06/21/2025 1:00 PM EDT Office Visit [facility] [address] [place], [place] [phone] Anya Huang, JURY CONSULTANT.RN ELIGIBILITY [address] [place], [place] [phone] 4 month follow up [facility] Comment on above: 4 month follow up Start: 06-11-2025 End: 06-11-2025 ambulatory 06/11/2025 10:00 AM EDT Visit (SP) Office [facility] [address] [place] [address] Faith Moore, JURY CONSULTANT.RN ELIGIBILITY [address] [place] [address] 6mo ov f/u [facility] Comment on above: 6mo ov f/u Start: 05-30-2025 BP Controlled (<130/80) BP Controlled (<130/80) [facility] Start: 05-23-2025 BP Controlled (<130/80) BP Controlled (<130/80) [facility] Start: 05-14-2025 End: 05-14-2025 Patient encounter procedure 05/14/2025 1:45 PM EDT Appointment [facility] [address] [place], [place] [id number] Dx: Consideration of Watchman Device [facility] Comment on above: Dx: Consideration of Watchman Device Start: 05-09-2025 BP Controlled (<130/80) BP Controlled (<130/80) [facility] Start: 05-08-2025 End: 05-08-2025 ambulatory 05/08/2025 12:15 PM EDT Procedure Cardiology [address] [place] [address] Dx: Consideration of Watchman Device Cardiology Comment on above: Dx: Consideration of Watchman Device Start: 05-08-2025 End: 05-08-2025 Patient encounter procedure Cardiology Comment on above: Dx: Consideration of Watchman Device Start: 03-09-2025 DIABETES SCREEN DIABETES SCREEN [facility] Start: 02-22-2025 End: 02-22-2025 Patient encounter procedure 02/22/2025 1:30 PM EDT Office Visit [facility] [address] [place], [place] [phone] Anya Huang, FELIX.RN ELIGIBILITY [address] [place] [id number] 4 month follow up [facility] Comment on above: 4 month follow up Start: 02-14-2025 Covid-19 Vaccine ( season) Covid-19 Vaccine ( season) [facility] Start: 01-31-2025 Annual PCP Team Chronic Disease Visit Annual PCP Team Chronic Disease Visit [facility] Start: 01-31-2025 Covid-19 Vaccine ( season) Covid-19 Vaccine ( season) [facility] Comment on above: Postponed from 07/09/2023 (Declined at t his time) Start: 01-31-2025 RSV Vaccine (1 - 1-dose 60+ series) RSV Vaccine (1 - 1-dose 60+ series) [facility] Comment on above: Postponed from 2019 (Declined at t his time) Start: 01-31-2025 RSV Vaccine (1 - Risk 60-74 years 1-dose series) RSV Vaccine (1 - Risk 60-74 years 1-dose series) [facility] Comment on above: Postponed from 2019 (Declined at t his time) Start: 01-31-2025 Shingrix Vaccine (1 of 2) Shingrix Vaccine (1 of 2) [facility] Comment on above: Postponed from 2009 (Declined at t his time) Start: 01-19-2025 End: 01-19-2025 Patient encounter procedure 01/19/2025 10:30 AM EDT Office Visit [facility] [address] [place] [address] Leonard Patel MD [address] [facility] [place] [address] follow up after MRI done 01/16 [facility] Comment on above: follow up after MRI done 01/16 Start: 01-16-2025 End: 01-16-2025 Patient encounter procedure 01/16/2025 10:30 AM EDT Appointment [facility] [place] [facility] [address] [place] [address] Intracranial meningioma (HCC) [D32.0]; Benign neoplasm of meninges (HCC) [D32.9] [facility] Comment on above: Intracranial meningioma (HCC) [D32.0]; B enign neoplasm of meninges (HCC) [D32.9] Start: 12-21-2024 End: 12-21-2024 Patient encounter procedure 12/21/2024 1:40 PM EST Office Visit [facility] [address] [place] [address] Karthik Holliday APRN.RN ELIGIBILITY [address] [place] [address] 3 Month Follow-up [facility] Comment on above: 3 Month Follow-up Start: 12-12-2024 End: 03-13-2025 BETA 2 GLYCOPROTEIN, IGG [facility] Comment on above: Expected: 12/12/2024, Expires: Start: 12-12-2024 End: 03-13-2025 BETA 2 GLYCOPROTEIN, IGM [facility] Comment on above: Expected: 12/12/2024, Expires: Start: 12-12-2024 End: 03-13-2025 Cardiolipin IgG and IgM panel - Serum [facility] Comment on above: Expected: 12/12/2024, Expires: Start: 12-12-2024 End: 03-13-2025 F2 gene mutations found [Identifier] in Blood or Tissue by Molecular genetics method Nominal [facility] Comment on above: Expected: 12/12/2024, Expires: Start: 12-12-2024 End: 03-13-2025 FACTOR V LEIDEN/PCR [facility] Work Phone: Comment on above: Expected: 12/12/2024, Expires: Start: 12-12-2024 End: 12-12-2024 ambulatory [facility] Comment on above: Multiple subsegmental pulmonary emboli w ithout acute cor pulmonale Start: 11-08-2024 Advance Directive Discussion Advance Directive Discussion [facility] Start: 11-08-2024 Medicare Advantage Annual Wellness Visit Medicare Advantage Annual Wellness Visit [facility] Start: 10-27-2024 End: 10-27-2024 Patient encounter procedure RADIO 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 Comment on above: Brain [address] CT BRAIN WO Start: 10-26-2024 End: 10-26-2024 Patient encounter procedure 10/26/2024 10:30 AM EST Office Visit [facility] [address] [place], [place] [phone] Anya Huang, FELIX.RN ELIGIBILITY [address] [place] [phone] 10 week follow up [facility] Comment on above: 10 week follow up Start: 10-20-2024 End: 10-20-2024 Patient encounter procedure 10/20/2024 11:30 AM EST Office Visit [facility] [place] [address] [place] [phone] Leonard Patel MD [address] [place] [address] 4 month routine f/u [facility] Comment on above: 4 month routine f/u Start: 10-13-2024 End: 10-13-2024 Patient encounter procedure 10/13/2024 11:45 AM EST Office Visit [facility] [address] [facility] [place] [phone] Leonard Patel MD [address] [facility] [place] [address] 4 month routine f/u [facility] Comment on above: 4 month routine f/u Start: 10-02-2024 End: 10-02-2024 Patient encounter procedure 10/02/2024 8:00 AM EST Appointment [facility] [place] [facility] [address] [place] [address] 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] [facility] [place] [facility] Comment on above: Silent micro-hemorrhage of brain (HCC) [ I61.8] Start: 09-22-2024 End: 09-22-2024 Patient encounter procedure 09/22/2024 7:20 AM EST Office Visit [facility] [address] [place] [address] Rosalinda Olivas APRN.RN ELIGIBILITY [address] [facility] [address] [place] [address] BP [facility] Comment on above: BP Start: 09-18-2024 End: 12-18-2024 25-hydroxyvitamin D3 [Mass/volume] in Serum or Plasma VITAMIN D 25 HYDROXY Lab Routine Essential hypertension Expected: 09/18/2024, Expires: 12/18/2024 [facility] Comment on above: Expected: 09/18/2024, Expires: Start: 09-18-2024 End: 12-18-2024 CBC W Auto Differential panel - Blood COMPLETE BLOOD COUNT AND DIFFERENTIAL Lab Routine Essential hypertension Expected: 09/18/2024, Expires: 12/18/2024 [facility] Comment on above: Expected: 09/18/2024, Expires: Start: 09-18-2024 End: 12-18-2024 Comprehensive metabolic 2000 panel - Serum or Plasma COMPREHENSIVE METABOLIC PANEL Lab Routine Essential hypertension Expected: 09/18/2024, Expires: 12/18/2024 [facility] Comment on above: Expected: 09/18/2024, Expires: Start: 09-18-2024 End: 12-18-2024 Hemoglobin A1c in Blood HEMOGLOBIN A1C Lab Routine Essential hypertension Dyslipidemia Expected: 09/18/2024, Expires: 12/18/2024 [facility] Comment on above: Expected: 09/18/2024, Expires: Start: 09-18-2024 End: 12-18-2024 Lipid 1996 panel - Serum or Plasma LIPID PANEL BASIC Lab Routine Essential hypertension Dyslipidemia Expected: 09/18/2024, Expires: 12/18/2024 [facility] Comment on above: Expected: 09/18/2024, Expires: Start: 09-18-2024 End: 12-18-2024 Microalbumin/Creatinine [Mass Ratio] in Urine ALBUMIN/CREATININE RATIO, URINE Lab Routine Essential hypertension Expected: 09/18/2024, Expires: 12/18/2024 [facility] Comment on above: Expected: 09/18/2024, Expires: Start: 09-18-2024 End: 12-18-2024 Prostate Specific Ag Free [Mass/volume] in Serum or Plasma PROSTATE SPECIFIC ANTIGEN, FREE Lab Routine Benign prostatic hyperplasia with lower urinary tract symptoms, symptom details unspecified Expected: 09/18/2024, Expires: 12/18/2024 [facility] Comment on above: Expected: 09/18/2024, Expires: Start: 09-18-2024 End: 12-18-2024 Thyrotropin [Units/volume] in Serum or Plasma THYROID STIMULATING HORMONE Lab Routine Thyroid nodule Expected: 09/18/2024, Expires: 12/18/2024 [facility] Comment on above: Expected: 09/18/2024, Expires: Start: 09-18-2024 End: 09-18-2024 Patient encounter procedure 09/18/2024 1:20 PM EST Office Visit [facility] [address] [place] [address] Karthik Holliday, JURY CONSULTANT.RN ELIGIBILITY [address] [place] [address] TCM rehab follow up, failure to thrive, [facility] [place] 09/08 [facility] Comment on above: TCM rehab follow up, failure to thrive, [facility] [place] 09/08 Start: 08-15-2024 DIABETES SCREEN DIABETES SCREEN [facility] Start: 08-10-2024 End: 08-10-2024 Patient encounter procedure 08/10/2024 2:30 PM EDT Office Visit [facility] [address] [place] [address] Anya Huang, JURY CONSULTANT.RN ELIGIBILITY [address] [address] 10 week follow up [facility] Comment on above: 10 week follow up Start: 08-07-2024 End: 08-07-2024 Patient encounter procedure 08/07/2024 11:00 AM EDT Appointment [facility] [place] [facility] [address] [place] [address] 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] [facility] Comment on above: Silent micro-hemorrhage of brain (HCC) [ I61.8] Start: 08-04-2024 End: 08-04-2024 Patient encounter procedure 08/04/2024 2:40 PM EDT Office Visit [facility] [address] [place] [address] Karthik Holliday, JURY CONSULTANT.RN ELIGIBILITY [address] [place] [address] 6 month follow up [facility] [place] Comment on above: 6 month follow up Start: 07-09-2024 Covid-19 Vaccine ( season) Covid-19 Vaccine ( season) [facility] Start: 07-09-2024 Influenza vaccination [facility] Start: 06-20-2024 End: 06-20-2024 Patient encounter procedure RADIO 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 Comment on above: CT BRAIN WO 4 week f/u, CT today Start: 06-09-2024 Orders Only 06/09/2024 Orders Only Cardiology [address] [place] [address] Jed Wolf MD [address] [place], [place] [id number] Cardiology Start: 05-30-2024 End: 05-30-2024 Patient encounter procedure 05/30/2024 9:30 AM EDT Office Visit [facility] [address] [place], [place] [phone] Anya Huang, JURY CONSULTANT.RN ELIGIBILITY [address] [address] Order [id number] [facility] Comment on above: Order [id number] Start: 05-26-2024 End: 05-26-2024 Patient encounter procedure RADIO 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 Comment on above: CT BRAIN WO post op, CT today Start: 05-23-2024 End: 05-23-2024 Patient encounter procedure RADIO 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 Comment on above: CT BRAIN WO-GK [address] Start: 05-22-2024 End: 05-22-2024 Patient encounter procedure 05/22/2024 10:00 AM EDT Office Visit [facility] [address] [place] [address] Suellen Conley, JURY CONSULTANT.RN ELIGIBILITY [address] [place] [address] [place] by [facility] follow up for void trial-no [place]-call from [facility] [phone] [facility] Comment on above: [place] by [facility] follow up fo r void trial-no [place]-call from [facility] [phone] Start: 05-19-2024 End: 05-19-2024 Patient encounter procedure RADIO 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 Comment on above: CT BRAIN WO-GK [address] Start: 05-08-2024 End: 05-08-2024 Patient encounter procedure 05/08/2024 9:45 AM EDT Office Visit Cardiology [address] [place] [address] Jed Wolf MD [address] [place] [address] Atrial flutter, unspecified type (HCC) [I48.92] Cardiology Comment on above: Atrial flutter, unspecified type (HCC) [ I48.92] Start: 05-08-2024 End: 05-08-2024 ambulatory 05/08/2024 8:45 AM EDT Results Only Cardiology [address] [place] [address] Atrial flutter, unspecified type (HCC) [I48.92] Cardiology Comment on above: Atrial flutter, unspecified type (HCC) [ I48.92] Start: 05-07-2024 Influenza vaccination Influenza Vaccine (#1) [facility] Comment on above: Postponed from 07/09/2023 (Declined at t his time) Start: 05-02-2024 End: 05-02-2024 Patient encounter procedure 05/02/2024 1:30 PM EDT Office Visit [facility] [address] [place] [phone] Leonard Patel MD [address] [place], [place] [address] 1st post op, suture removal [facility] Comment on above: 1st post op, suture removal Start: 03-02-2024 ANNUAL PCP TEAM CHRONIC DISEASE VISIT ANNUAL PCP TEAM CHRONIC DISEASE VISIT [facility] Start: 02-01-2024 End: 05-02-2024 25-hydroxyvitamin D3 [Mass/volume] in Serum or Plasma [facility] Work Phone: Comment on above: Expected: 02/01/2024, Expires: Start: 01-19-2024 BP CONTROLLED (<130/80) BP CONTROLLED (<130/80) [facility] Start: 11-12-2023 ANNUAL PCP TEAM CHRONIC DISEASE VISIT ANNUAL PCP TEAM CHRONIC DISEASE VISIT [facility] Start: 11-12-2023 BP CONTROLLED (<130/80) BP CONTROLLED (<130/80) [facility] Start: 11-08-2023 Behavioral Health Screening Behavioral Health Screening [facility] Start: 10-22-2023 Colonoscopy COLONOSCOPY [facility] Start: 10-22-2023 COLORECTAL CANCER SCREENING COLORECTAL CANCER SCREENING [facility] Start: 10-22-2023 Screening for malignant neoplasm of colon Colonoscopy [facility] Start: 09-01-2023 BP CONTROLLED (<130/80) BP CONTROLLED (<130/80) [facility] Start: 07-09-2023 Influenza vaccination INFLUENZA (#1) [facility] Start: 05-08-2023 ANNUAL PCP TEAM CHRONIC DISEASE VISIT ANNUAL PCP TEAM CHRONIC DISEASE VISIT [facility] Start: 04-10-2023 ANNUAL PCP TEAM CHRONIC DISEASE VISIT ANNUAL PCP TEAM CHRONIC DISEASE VISIT [facility] Start: 03-09-2023 ANNUAL PCP TEAM CHRONIC DISEASE VISIT ANNUAL PCP TEAM CHRONIC DISEASE VISIT [facility] Start: 03-03-2023 PROSTATE CANCER SCREENING DISCUSSION PROSTATE CANCER SCREENING DISCUSSION [facility] Comment on above: Postponed from 05/25/2021 (Postponed - N ot Clinically Indicated) Start: 02-19-2023 ANNUAL PCP TEAM CHRONIC DISEASE VISIT ANNUAL PCP TEAM CHRONIC DISEASE VISIT [facility] Start: 02-19-2023 BP CONTROLLED (<130/80) BP CONTROLLED (<130/80) [facility] Start: 02-19-2023 HIV SCREENING HIV SCREENING [facility] Comment on above: Postponed from 1977 (Declined at t his time) Start: 01-19-2023 Adult depression screening assessment DEPRESSION SCREENING [facility] Start: 12-22-2022 End: 02-21-2023 CBC W Auto Differential panel - Blood CBC + DIFF Lab Routine Pneumonia due to influenza A virus Expected: 12/22/2022, Expires: 02/21/2023 [facility] Work Phone: Comment on above: Expected: 12/22/2022, Expires: 3 Start: 12-22-2022 End: 12-12-2023 Radiologic exam chest 2 views XR CHEST 2V FRONTAL/LAT Radiology Routine Pneumonia due to influenza A virus Expected: 12/22/2022, Expires: 12/12/2023 [facility] Work Phone: Comment on above: Expected: 12/22/2022, Expires: 4 Start: 12-17-2022 Lipid panel Lipid Screening [facility] Start: 12-17-2022 LIPID SCREEN LIPID SCREEN [facility] Start: 11-08-2022 DEPRESSION ASSESSMENT DEPRESSION ASSESSMENT [facility] Start: 09-22-2022 End: 11-22-2022 Lipid 1996 panel - Serum or Plasma LIPID PANEL BASIC Lab Routine Essential hypertension Expected: 09/22/2022, Expires: 11/22/2022 [facility] Work Phone: Comment on above: Expected: 09/22/2022, Expires: 3 Start: 09-22-2022 End: 11-22-2022 SCHEDULE LAB TESTING SCHEDULE LAB TESTING Lab Routine Expected: 09/22/2022, Expires: 11/22/2022 [facility] Work Phone: Comment on above: Expected: 09/22/2022, Expires: 3 Start: 07-09-2022 Influenza vaccination [facility] Start: 05-10-2022 End: 07-20-2022 Aspartate aminotransferase [Enzymatic activity/volume] in Serum or Plasma AST/SGOT BLD Lab Routine Dyslipidemia Expected: 05/10/2022, Expires: 07/20/2022 [facility] Work Phone: Comment on above: Expected: 05/10/2022, Expires: 2 Start: 04-21-2022 COVID-19 VACCINE (4 - Booster for Pfizer series) COVID-19 VACCINE (4 - Booster for Pfizer series) [facility] Start: 04-10-2022 End: 06-10-2022 LIPID PANEL BASIC LIPID PANEL BASIC Lab Routine Dyslipidemia Expected: 04/10/2022, Expires: 06/10/2022 [facility] Work Phone: Comment on above: Expected: 04/10/2022, Expires: 2 Start: 02-19-2022 End: 04-21-2022 Basic metabolic 2000 panel - Serum or Plasma BASIC METABOLIC PNL Lab 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 Expected: 02/19/2022, Expires: 04/21/2022 [facility] Work Phone: Comment on above: Expected: 02/19/2022, Expires: 2 Start: 02-16-2022 COVID-19 VACCINE (4 - Booster for Pfizer series) COVID-19 VACCINE (4 - Booster for Pfizer series) [facility] Start: 02-16-2022 COVID-19 VACCINE (4 - Pfizer series) COVID-19 VACCINE (4 - Pfizer series) [facility] Start: 11-08-2021 DEPRESSION ASSESSMENT DEPRESSION ASSESSMENT [facility] Start: 05-25-2021 PROSTATE CANCER SCREENING DISCUSSION PROSTATE CANCER SCREENING DISCUSSION [facility] Start: 05-25-2021 Prostate specific antigen measurement Prostate Cancer Screening Discussion [facility] Start: 2009 SHINGRIX VACCINE (1 of 2) SHINGRIX VACCINE (1 of 2) [facility] Start: 01-26-2004 COLOGUARD (FIT-DNA) COLOGUARD (FIT-DNA) [facility] Start: 01-26-[address] COLONOGRAPHY [facility] Start: 01-26-2004 FECAL OCCULT BLOOD FECAL OCCULT BLOOD [facility] Start: 01-26-2004 Screening for malignant neoplasm of colon [facility] [facility] Start: 01-26-2004 SIGMOIDOSCOPY SIGMOIDOSCOPY [facility] Start: 1977 Anxiety Screening Anxiety Screening [facility] Start: 1977 Depression Screening Depression Screening [facility] Start: 1977 HIV SCREENING HIV SCREENING [facility] Start: 1977 HIV screening HIV Screening [facility] End: 03-02-2025 Ankle-brachial index US ANKLE BRACHIAL INDICES Radiology Routine Venous insufficiency 1 Occurrences starting 02/01/2024 until 03/02/2025 [facility] Work Phone: Comment on above: 1 Occurrences starting 02/01/2024 until 03/02/2025 BLADDER SCAN BLADDER SCAN Pro cedures Routine Benign prostatic hyperplasia with urinary retention Ordered: 05/22/2024 [facility] Work Phone: Comment on above: Ordered: 05/22/2024 End: 05-23-2025 CT Head WO contrast CT BRAIN WO IVCON Radiology Routine SDH (subdural hematoma) (HCC) 1 Occurrences starting 04/23/2024 until 05/23/2025 [facility] Work Phone: Comment on above: 1 Occurrences starting 04/23/2024 until 05/23/2025 End: 06-08-2025 CT Head WO contrast CT BRAIN WO IVCON Radiology Routine Traumatic subdural hematoma with loss of consciousness, sequela (HCC) Intracranial meningioma (HCC) 1 Occurrences starting 05/09/2024 until 06/08/2025 [facility] Work Phone: Comment on above: 1 Occurrences starting 05/09/2024 until 06/08/2025 CT Head WO contrast CT BRAIN WO IVCON Radiology Routine SDH (subdural hematoma) (HCC) 05/09/2024 1:38 PM EDT [facility] Work Phone: End: 06-22-2025 CT Head WO contrast CT BRAIN WO IVCON Radiology Routine Traumatic subdural hematoma with loss of consciousness, sequela (HCC) Intracranial meningioma (HCC) 1 Occurrences starting 05/23/2024 until 06/22/2025 [facility] Work Phone: Comment on above: 1 Occurrences starting 05/23/2024 until 06/22/2025 CT Head WO contrast CT BRAIN WO IVCON Radiology Routine Traumatic subdural hematoma with loss of consciousness, sequela (HCC) Intracranial meningioma (HCC) 05/23/2024 10:58 AM EDT [facility] Work Phone: CT Head WO contrast CT BRAIN WO IVCON Radiology Routine Traumatic subdural hematoma with loss of consciousness, sequela (HCC) Intracranial meningioma (HCC) 06/20/2024 10:30 AM EDT [facility] Work Phone: End: 11-12-2025 CT Head WO contrast CT BRAIN WO IVCON Radiology Routine Traumatic subdural hematoma with loss of consciousness, sequela (HCC) Intracranial meningioma (HCC) 1 Occurrences starting 10/13/2024 until 11/12/2025 [facility] Work Phone: Comment on above: 1 Occurrences starting 10/13/2024 until 11/12/2025 CT Head WO contrast CT BRAIN WO IVCON Radiology Routine Traumatic subdural hematoma with loss of consciousness, sequela (HCC) Intracranial meningioma (HCC) 10/27/2024 3:00 PM EST [facility] Work Phone: End: 05-04-2025 ECG COMPLETE ECG COMPLETE ECG Routine Atrial flutter, unspecified type (HCC) 1 Occurrences starting 05/04/2024 until 05/04/2025 [facility] Work Phone: Comment on above: 1 Occurrences starting 05/04/2024 until 05/04/2025 End: 05-09-2025 ECG COMPLETE ECG COMPLETE ECG Routine Atrial flutter, unspecified type (HCC) Subdural hematoma (HCC) History of ischemic stroke 1 Occurrences starting 05/09/2024 until 05/09/2025 [facility] Work Phone: Comment on above: 1 Occurrences starting 05/09/2024 until 05/09/2025 End: 01-20-2026 ECG COMPLETE ECG COMPLETE ECG Routine 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 1 Occurrences starting 01/20/2025 until 01/20/2026 [facility] Work Phone: Comment on above: 1 Occurrences starting 01/20/2025 until 01/20/2026 End: 05-08-2026 ECG COMPLETE ECG COMPLETE ECG Routine Atrial flutter, unspecified type (HCC) 1 Occurrences starting 05/08/2025 until 05/08/2026 [facility] Work Phone: Comment on above: 1 Occurrences starting 05/08/2025 until 05/08/2026 End: 05-14-2025 ECG COMPLETE ECG COMPLETE ECG Routine 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 1 Occurrences starting 05/14/2025 until 05/14/2025 [facility] Work Phone: Comment on above: 1 Occurrences starting 05/14/2025 until 05/14/2025 End: 11-26-2025 MR Brain WO and W contrast IV MRI BRAIN WO/W IVCON Radiology Routine Intracranial meningioma (HCC) Benign neoplasm of meninges (HCC) 1 Occurrences starting 10/27/2024 until 11/26/2025 [facility] Work Phone: Comment on above: 1 Occurrences starting 10/27/2024 until 11/26/2025 MR Brain WO and W contrast IV MRI BRAIN WO/W IVCON Radiology Routine Intracranial meningioma (HCC) Benign neoplasm of meninges (HCC) 01/16/2025 10:47 AM EDT [facility] Work Phone: End: 02-17-2026 MR Brain WO and W contrast IV MRI BRAIN WO/W IVCON Radiology Routine Intracranial meningioma (HCC) Traumatic subdural hematoma with loss of consciousness, sequela (HCC) 1 Occurrences starting 01/19/2025 until 02/17/2026 [facility] Work Phone: Comment on above: 1 Occurrences starting 01/19/2025 until 02/17/2026 End: 07-12-2025 MR Brain WO contrast MRI BRAIN WO IVCON Radiology Routine Silent micro-hemorrhage of brain (HCC) 1 Occurrences starting 06/12/2024 until 07/12/2025 [facility] Work Phone: Comment on above: 1 Occurrences starting 06/12/2024 until 07/12/2025 MR Brain WO contrast MRI BRAIN W O IVCON Radiology Routine Silent micro-hemorrhage of brain (HCC) 10/02/2024 8:50 AM EST [facility] Work Phone: End: 11-28-2023 Mri brain brain stem w/o contrast material MRI BRAIN WO IVCON Radiology Routine Parkinsonism, unspecified Parkinsonism type (HCC) 1 Occurrences starting 10/29/2022 until 11/28/2023 [facility] Work Phone: Comment on above: 1 Occurrences starting 10/29/2022 until 11/28/2023 End: 10-29-2023 Polysomnogram POLYSOMNOGRAM (PSG) Procedures Routine Parkinsonism, unspecified Parkinsonism type (HCC) HARJEET (obstructive sleep apnea) 1 Occurrences starting 10/29/2022 until 10/29/2023 [facility] Work Phone: Comment on above: 1 Occurrences starting 10/29/2022 until 10/29/2023 End: 02-17-2026 US Hip - left US HIP LEFT Radiology Routine Soft tissue mass 1 Occurrences starting 01/18/2025 until 02/17/2026 [facility] Work Phone: Comment on above: 1 Occurrences starting 01/18/2025 until 02/17/2026 End: 10-18-2025 US Thyroid gland US THYROID/PARATHYROID Radiology Routine Thyroid nodule 1 Occurrences starting 09/18/2024 until 10/18/2025 [facility] Work Phone: Comment on above: 1 Occurrences starting 09/18/2024 until 10/18/2025 [facility] Immunizations Immunization Date Immunization Notes Care Provider Ping black 08-16-2024 COVID-19 vaccine, ag e 12+ yr ([facility]UDOW[facility] COMIRNAT) Karthik Holliday APRN.RN ELIGIBILITY Work Phone: [facility] 08-08-2024 influenza, seasonal, injectable, preservative free Karthik Holliday APRN.RN ELIGIBILITY Work Phone: [facility] 08-08-2024 influenza virus vaccine, unspecified formulation Orly Valencia MD Work Phone: [facility] 08-01-2024 respiratory syncytia l virus (RSV) vaccine, bivalent (ABRYSVO) Karthik Mastrucci JURY CONSULTANT.[facility] Work Phone: [facility] 02-01-2024 pneumococcal Conjugate, unspecified formulation Karthik Mastrucci JURY CONSULTANT.RN ELIGIBILITY Work Phone: [facility] Work Phone: 02-01-2024 pneumococcal conjuga te (PCV20) vaccine, 20 valent (PREVNAR 20) Karthik Mastrucci JURY CONSULTANT.RN ELIGIBILITY Work Phone: [facility] 09-28-2022 influenza, injectabl e, quadrivalent, preservative free Karthik Mastrucci JURY CONSULTANT.[facility] Work Phone: [facility] Work Phone: 09-28-2022 influenza virus vaccine, unspecified formulation Karthik Mastrucci JURY CONSULTANT.[facility] Work Phone: [facility] 12-22-2021 COVID-19 vaccine, ag e 12+ yr (PFIZER-BIONTECH - MELLO TOP) Paul Lorenz MD Work Phone: [facility] Work Phone: 03-08-2021 COVID-19 vaccine, ag e 12+ yr (PFIZER-BIONTECH - PURPLE TOP) Paul Lorenz MD Work Phone: [facility] 02-15-2021 COVID-19 vaccine, ag e 12+ yr (PFIZER-BIONTECH - PURPLE TOP) Paul Lorenz MD Work Phone: [facility] 07-02-2020 tetanus toxoid, reduced diphtheria toxoid, and acellular pertussis vaccine, adsorbed Paul Lorenz MD Work Phone: [facility] Payers Date Payer Category Payer Medicaid [id number] 2024 Medicare [id number] 2024 Unknown [facility] AND [employer] MEDICARE ADVANTAGE HMO [id number] 2024-[facility] [phone] [id number] [place] [address] HMO [id number] 2024 Medicare [id number] 2024 Self-pay 2024 Medicare (Managed Care) [id number] 2024 Medicare [id number] 2024 Medicare [id number] 2019 Medicaid [employer] [facility] [place] [id number] 2019-Present [phone] [facility] [id number] [place] [address] Medicaid [id number] 2019 Medicaid [id number] 2019 Medicaid [id number] Unknown [id number] Unknown [id number] Unknown [id number] Unknown [id number] Unknown [id number] Unknown [id number] Unknown [id number] Unknown [id number] Unknown [id number] Social History Date Type Detail Facility Start: 05-25-2016 End: 10-21-2022 Tobacco smoking status NHIS Never smoked tobacco [facility] Start: 05-25-2016 End: 10-21-2022 Tobacco use and exposure Smokeless tobacco non-user [facility] Start: 02-19-2022 End: 04-10-2022 Alcohol intake Current drinker of alcohol (finding) [facility] Start: 12-16-2017 History SDOH Alcohol Comment occ. Maybe one drink per week. [facility] Start: 1960 Sex Assigned At Male C [facility] Start: 02-09-2022 End: 09-02-2022 Exposure to SARS-CoV-2 (event) Not sure [facility] Start: 10-30-2022 End: 06-21-2025 Alcohol intake Ex-drinker (finding) [facility] Start: 10-30-2022 History SDOH Financial 5 [facility] Start: 10-30-2022 History SDOH Food Worry 1 [facility] Start: 10-30-2022 History SDOH Transpo rt Med 2 [facility] Start: 03-02-2023 End: 02-01-2024 History of Social function [facility] Work Phone: Start: 03-02-2023 End: 02-01-2024 Tobacco use panel [facility] Work Phone: Start: 10-10-2015 How hard is it for y ou to pay for the very basics like food, housing, medical care, and heating Not hard at all [facility] Work Phone: (I/We) worried whericarda er (my/our) food would run out before (I/we) got money to buy more. Never true [facility] Work Phone: In the past 12 month s, was there a time when you were not able to pay the mortgage or rent on time? No [facility] Work Phone: Start: 01-29-2021 Gender identity Identifies as male gender (finding) [facility] Start: 01-29-2021 Sexual orientation Homosexual (findi ng) [facility] Tobacco smoking stat us CAIS Unknown if ever smoked [facility] Work Phone: Start: 02-06-2025 End: 02-23-2025 Sex Male (finding) [facility] Medical Equipment Procedure Code Equipment Code Equipment Origin al Text Equipment Identifier Dates Screw Lcp 3.5mm Full Thread Stainless Steel 14mm Bone Stardrive Recess Self - [id number] Start: 09-14-2019 Screw Lcp 3.5mm Full Thread Stainless Steel 16mm Bone Stardrive Recess Self - [id number] Start: 09-14-2019 Screw Lc-Dcp Dcp 3.5mm 6mm Full Thread Stainless Steel 16mm Bone Self - [id number] Start: 09-14-2019 Scrw Ond Mandib Ul Lp Df 1.5x4 [id number] Start: 04-16-2024 L1 Neuro [place] [facility] Cov Ultraone Contour W/Tab Scrw 6 Hl 18mm D T0.35mm Ti - [id number] Start: 04-16-2024 Goals Date Patient Goal Desired Activity /State Personal health goal Functional Status Date Assessment Result Facility 09-28-2024 Are you deaf, or do you have serious difficulty hearing No 09/28/2024 12:32 PM Ailyn Darby, ARNOLD No [facility] 09-28-2024 Are you blind, or do you have serious difficulty seeing, even when wearing glasses Yes 09/28/2024 12:32 PM Ailyn Darby, ARNOLD Yes [facility] 09-28-2024 Do you have serious difficulty walking or climbing stairs Yes 09/28/2024 12:32 PM Ailyn Darby, ARNOLD Yes [facility] 09-28-2024 Because of a physica l, mental, or emotional condition, do you have difficulty doing errands alone such as visiting a physician's office or shopping Yes 09/28/2024 12:32 PM Ailyn Darby, ARNOLD Yes [facility] 06-07-2024 Do you have difficul ty dressing or bathing Yes 06/07/2024 1:58 PM EDT Paul Harkins, RN Yes [facility] Mental Status Date Assessment Result Facility 09-28-2024 Because of a physica l, mental, or emotional condition, do you have serious difficulty concentrating, remembering, or making decisions Yes 09/28/2024 12:32 PM Ailyn Darby, RN Yes [facility] Clinical Notes 09-13-2019 to 06-21-2025 Patient Anya Sma APRN.[facility] - 06/21/2025 1:00 PM EDTPatient Faith Astorga APRN.RN ELIGIBILITY - 06/11/2025 9:02 AM EDFemi Fall RN - 05/08/2025 11:27 AM EDT Note Date & Type Note Facility 06-21-2025 Instructions Anya Huang APRN.[facility] - 06/21/2025 1:12 PM EDT Images from the original note were not included. Regarding your visit with Nurse Practitioner Anya Huang today at the [facility] Cerebrovascular Center we discussed the following: Impression: [...] flutter Hypertension Dyslipidemia - LDL 59 Recommendations: Continue eliquis 5mg twice daily for now, for PE and DVT per Hematology Would not recommend lifelong anticoagulation for patient, if possible due to his cerebral microhemorrhages. For his atrial fibrillation/flutter, recommend consideration of left atrial appendage closure rather than lifelong anticoagulation. Scheduled to see Cardiology in September Can consider muscle relaxant for spasticity if tylenol no longer helpful Continue atorvastatin for secondary stroke prevention and LDL goal below 70. Continue monitoring blood pressure for goal below 130/80. Follow up in 5 months -Regular follow up with primary care [...] if you have any questions Anya Huang [facility] Cerebrovascular [place] Nurse Practitioner [place] [address] Office: [phone] Appointments: [phone] Stroke Signs and Symptoms: *Stroke is a [...] diet rich in fruits and vegetables (https://www.nhlbi.nih.gov/educati on/nonj-isrzif-akbm) - Consider Mediterranean diet supplemented with nuts [...] of an exercise program by a health resident caregiver such as a physical therapist or cardiac [...] for their cardiovascular health Adapted from the [place] [employer]/[place] Stroke Association: 202 Guideline for the Prevention of Stroke in Patients With Stroke and Transient Ischemic Attack documented in this encounter [facility] 06-21-2025 History of Present illness Narrative [facility] Established Visit Recording using Glassful software for draft documentation of the visit was discussed with the patient/authorized branch sales and service representative; all questions welcomed and answered. Patient/authorized branch sales and service representative agreed to proceed Consultation is requested by: No referring provider defined for this encounter. PCP: Karthik Holliday [address] [place] [address] CEREBROVASCULAR HISTORY Alfonzo Simon is a 64 year old left-handed male presenting for hospital discharge follow up. Admitted to [facility] 04/15-04/25/24. From discharge summary Mr. Alfonzo Simon was directly admitted to [facility] on 04/15/2024 for treatment of injuries [...] be a meningioma on 04/16/[address] Patel. On the day of his surgery, he [...] outpatient follow-up with his treating neurosurgery (Dr. Patel) two weeks post-operatively for re-evaluation and craniotomy [...] discharge. Mr. Simon would be discharged to [facility] rehab in stable condition on 04/25/2024. He [...] new symptoms or clinical events -living at [facility] -prior to this lived at home with [...] any new symptoms or clinical events -at [facility] SNF - thinks will have to leave [...] any new symptoms or clinical events -at [facility] -left side getting a bit stronger, cannot really lift above shoulder level -pain is minimal and controlled with tylenol -referred to EP for watchman - scheduled for May -hematology - recommend minimum of 6 months AC, then will re-evaluate; had DVT and PE September 2024 -hypercoag panel negative -eliquis 5mg BID for atrial flutter -lipitor 20mg -BP 150/70 Office Visit 06/21/25 Atrial Fibrillation: - Recent follow-up with manager assurance; continuing Eliquis. - Cardiology appointment scheduled in September with Dr. Valencia to discuss SAMINA closure. - Previous appointment in [place] was canceled due to distance. Hypertension: - Blood pressure monitored daily at [address]. - Systolic readings typically range from 130-140 mmHg; diastolic readings in the 70s-80s mmHg. - Today's reading was higher than usual at 160 mmHg systolic. Left Arm Weakness: - Minimal functionality. - Takes Tylenol daily with effective pain management. PAST MEDICAL HISTORY Diagnosis Date Atrial fibrillation [...] No MEDICATIONS Current Outpatient Medications Medication Sig buPROPion SR (WELLBUTRIN SR) 150 mg 12 hr tablet ELIQUIS 5 mg tab(s) Take 1 tablet by mouth two times a day. magnesium hydroxide 2,400 mg/10 mL susp Take 10 mL by mouth once daily as needed. polyethylene glycol 3350 4 gram pwpk Take by mouth. magnesium, aluminum hydroxide (ALUMINUM-MAGNESIUM HYDROXIDE ORAL) Take by mouth. hydrALAZINE (APRESOLINE) 10 mg tablet senna (SENOKOT) 8.6 mg tab Take 8.6 mg by mouth two times a day. buPROPion [...] ALLERGIES No Known Allergies PHYSICAL EXAMINATION BP 160/74 Pulse (!) 57 Ht 182.9 cm (6') Wt (!) 147.4 kg (325 lb) BMI 44.08 kg/m General: Well-developed, well-nourished, in no acute [...] Motor: mildly increased tone LUE. Slight drift LUE. Gait: deferred LABS Cholesterol: Cholesterol, Total (mg/dL) Date Value 04/18/2024 132 12/17/2017 251 Total Cholesterol, Nonfasting (mg/dL) Date Value 04/18/2024 137 LDL Cholesterol, Calculated (mg/dL) Date Value 04/18/2024 57 LDL Cholesterol Calculated, Nonfasting (mg/dL) Date Value 04/18/2024 59 LDL [...] and Subdural Hematoma Subarachnoid Hemorrhage: Trauma Modified [place] Score: Score: 3 NIH Stroke Scale: LOC: [...] Cerebral Microbleeds IMPRESSION Bilateral cortical ischemic infarcts April 2024. Etiology cardioembolic from atrial flutter Spastic left [...] lifelong anticoagulation. Scheduled to see Cardiology in September Can consider muscle relaxant for spasticity if tylenol no longer helpful Continue atorvastatin for secondary stroke prevention and LDL goal below 70. Continue monitoring blood pressure for goal below 130/80. Follow up in 5-6 months Medical Decision Making: Medical Decision Making Level: 1 - N/A I spent a total of 33 minutes on the date of service which included preparing to see the patient, [id number] patient care, completing clinical documentation, obtaining and/or reviewing separately obtained history, performing a medically appropriate examination, counseling and educating the patient/family/caregiver, and care coordination (not separately reported) SIGNATURE Anya Huang APRN.RN ELIGIBILITY CC No referring provider defined for this encounter. [place] [address] documented in this encounter [facility] 06-21-2025 Note HNO ID: [id number] Author: ANYA HUANG APRN.CNP Service: ? Author Type: Nurse Practitioner Type: Progress Notes Filed: 06/21/2025 15:32 Note Text: CEREBROVASCULAR CENTER Established Visit Recording using Glassful software for draft documentation of the visit was discussed with the patient/authorized branch sales and service representative; all questions welcomed and answered. Patient/authorized branch sales and service representative agreed to proceed Consultation is requested by: No referring provider defined for this encounter. PCP: [place] [address] CEREBROVASCULAR HISTORY Alfonzo Simon is a 64 year old left-handed male presenting for hospital discharge follow up. Admitted to [facility] 04/15-04/25/24. From discharge summary Mr. Alfonzo Simon was directly admitted to [facility] on 04/15/2024 for treatment of injuries [...] be a meningioma on 04/16/[address] Patel. On the day of his surgery, he [...] outpatient follow-up with his treating neurosurgery (Dr. Patel) two weeks post-operatively for re-evaluation and craniotomy [...] discharge. Mr. Simon would be discharged to [facility] rehab in stable condition on 04/25/2024. He [...] new symptoms or clinical events -living at [facility] -prior to this lived at home with [...] any new symptoms or clinical events -at [facility] SNF - thinks will have to leave soon because of insurance, would be sent home with home care -prior to this lived at home with husb (more content not included)... [facility] 06-11-2025 Instructions Faith Moore APRN.CHAN - 06/11/2025 9:09 AM EDT Continue Eliquis documented in this encounter [facility] 06-11-2025 Note HNO ID: [id number] Author: FAITH MOORE APRN.CHAN Service: ? Author Type: Nurse Practitioner Type: Progress Notes Filed: 06/11/2025 09:42 Note Text: Hematology Consultation Date: 12/12/2024 Referring Physician: Anya [...] anticoagulation duration. He is currently residing at halfway facility and is here in a wheelchair. [...] TV on all night. No other complaints. Interval History He presents for follow up and consideration for discontinuation of eliquis. He is taking eliquis twice daily without difficulty. He denies bleeding or bruising. He denies dark or bloody bowel movements. He is still in rehab and in a wheelchair. He is hoping to go him in about a month. He has not had his watchman placed yet. He has an appointment with a field crops harvest machine operator in [place] due to transport issues to [place]. He is otherwise feeling well. Discussed staying on Eliquis indefinitely. He is agreeable. ACTIVE PROBLEM LIST Essential Hypertension Benign Prostatic Hyperplasia With Lower Urinary Tract Symptoms Vitamin D Deficiency Bradycardia Systolic Murmur Dyslipidemia Harjeet (Obstructive Sleep Apnea) Obesity, Class III, BMI >= 40 E66.01 Closed Fracture of Shaft of Left Ulna With Routine Healing Closed Fracture of Right Tibial Plateau Frequency of Urination Nocturia Knee Instability, Unspecified Laterality General Weakness Physical Deconditioning Liver Hemangioma Weakness Parkinson Disease (Hcc) Bilateral Pneumonia Leukocytosis Jasmyn (Acute Kidney Injury) Acute Encephalopathy Parkinsonian Features Bilateral [place] Community Acquired Pneumonia Pneumonia Due to Influenza A Virus Subdural Hematoma (Hcc) Fall Sah (Subarachnoid Hemorrhage) (Hcc) Brain Mass Intracranial Meningioma (Hcc) Failure to Thrive in Adult H/O: Cva (Cerebrovascular Accident) Morbid (Severe) Obesity Due to Excess Calories (Hcc) Obesity, Class II, Bmi 35-39.9 Multiple Subsegmental Pulmonary Emboli Without Acute Cor Pulmonale (Hcc) Pulmonary Emboli (Hcc) Pulmonary Embolism Without Acute Cor Pulmonale, Unspecified Chronicity, Unspecified Pulmonary Embolism Type (Hcc) History of Intracranial Hemorrhage 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 Drug use: No Review of Systems Constitutional: Negative. HENT: Negative. Respiratory: Negative. Cardiovascular: Negative. Gastrointestinal: Negative. Musculoskeletal: Negative. Skin: Negative. Neurological: Negative. Hematological: Negative. Psychiatric/Behavioral: Negative. Current Outpatient Medications Medication Sig Dispense Refill buPROPion SR (WELLBUTRIN SR) 150 mg 12 hr tablet magnesium hydroxide 2,400 mg/10 mL susp Take 10 mL by mouth once daily as needed. polyethylene glycol 3350 4 gram pwpk Take by mouth. magnesium, aluminum hydro (more content not included)... [facility] 06-11-2025 History of Present illness Narrative Hematology Consultation [...] anticoagulation duration. He is currently residing at halfway facility and is here in a wheelchair. [...] TV on all night. No other complaints. Interval History He presents for follow up and consideration for discontinuation of eliquis. He is taking eliquis twice daily without difficulty. He denies bleeding or bruising. He denies dark or bloody bowel movements. He is still in rehab and in a wheelchair. He is hoping to go him in about a month. He has not had his watchman placed yet. He has an appointment with a field crops harvest machine operator in [place] due to transport issues to [place]. He is otherwise feeling well. Discussed staying on Eliquis indefinitely. He is agreeable. ACTIVE PROBLEM LIST Essential Hypertension Benign Prostatic Hyperplasia With Lower Urinary Tract Symptoms Vitamin D Deficiency Bradycardia Systolic Murmur Dyslipidemia Harjeet (Obstructive Sleep Apnea) Obesity, Class III, BMI >= 40 E66.01 Closed Fracture of Shaft of Left Ulna With Routine Healing Closed Fracture of Right Tibial Plateau Frequency of Urination Nocturia Knee Instability, Unspecified Laterality General Weakness Physical Deconditioning Liver Hemangioma Weakness Parkinson Disease (Hcc) Bilateral Pneumonia Leukocytosis Jasmyn (Acute Kidney Injury) Acute Encephalopathy Parkinsonian Features Bilateral Upper Lobe Community Acquired Pneumonia Pneumonia Due to Influenza A Virus Subdural Hematoma (Hcc) Fall Sah (Subarachnoid Hemorrhage) (Hcc) Brain Mass Intracranial Meningioma (Hcc) Failure to Thrive in Adult H/O: Cva (Cerebrovascular Accident) Morbid (Severe) Obesity Due to Excess Calories (Hcc) Obesity, Class II, Bmi 35-39.9 Multiple Subsegmental Pulmonary Emboli Without Acute Cor Pulmonale (Hcc) Pulmonary Emboli (Hcc) Pulmonary Embolism Without Acute Cor Pulmonale, Unspecified Chronicity, Unspecified Pulmonary Embolism Type (Hcc) History of Intracranial Hemorrhage 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 Drug use: No Review of Systems Constitutional: Negative. HENT: Negative. Respiratory: Negative. Cardiovascular: Negative. Gastrointestinal: Negative. Musculoskeletal: Negative. Skin: Negative. Neurological: Negative. Hematological: Negative. Psychiatric/Behavioral: Negative. Current Outpatient Medications Medication Sig Dispense Refill buPROPion SR (WELLBUTRIN SR) 150 mg 12 hr tablet magnesium hydroxide 2,400 mg/10 mL susp Take [...] for this visit. ALLERGIES No Known Allergies Hemoglobin (g/dL) Date Value 12/12/2024 14.4 11/21/2015 15.8 HGB (g/dL) Date Value 07/17/2020 15.3 Hematocrit (%) Date Value 12/12/2024 43.5 07/17/2020 45.2 WBC Date Value 12/12/2024 6.34 k/uL 07/17/2020 9.40 thou/cmm Platelet Count Date Value 12/12/2024 268 k/uL 07/17/2020 308 thou/cmm BP 136/81 Pulse (!) 57 Temp 36.7 C (98.1 F) (Oral) Ht 182.9 cm (6') Wt (!) 147.4 kg (325 lb) SpO2 (!) 88% BMI 44.08 kg/m Last 3 Encounter BP Readings: Date: BP: 06/11/2025 136/81 02/22/2025 150/70 01/19/2025 144/82 NOTE: I re-checked his SaO2 and he was at 94% on room air. Denies SOB Physical Exam Vitals and nursing note reviewed. Constitutional: General: He is not in acute distress. Appearance: Normal appearance. He is not ill-appearing. Comments: Still in wheelchair HENT: Head: Normocephalic and atraumatic. Cardiovascular: Rate and Rhythm: Normal rate. Pulses: Normal pulses. Heart sounds: Normal heart sounds. Pulmonary: Effort: Pulmonary effort is normal. Breath sounds: Normal breath sounds. Abdominal: General: Bowel sounds are normal. There is distension. Palpations: Abdomen is soft. Tenderness: There is no abdominal tenderness. Musculoskeletal: General: Swelling present. Normal range of motion. Cervical back: Normal range of motion and neck supple. Comments: Bilateral 3+ LE edema Skin: General: Skin is warm and dry. Coloration: Skin is not jaundiced or pale. Neurological: General: No focal deficit present. Mental Status: He is alert and oriented to person, place, and time. Motor: Weakness present. Psychiatric: Mood and Affect: Mood normal. Behavior: Behavior normal. Thought Content: Thought content normal. Assessment and Plan: Mr. Alfonzo Simno is a 64 year old with bilateral calf DVT and multiple PE in September 2024 questionable if provoked or unprovoked. -continue Eliquis as he is tolerating and he still has not seen cardiology. In addition, he is still at skilled facility and in a wheelchair. -Coag work up negative. -continue to follow closely with neuro Faith Moore APRN.RN ELIGIBILITY HPI and A/P documentation from my previous visit of 12/12/24 was copied and pasted, documentation has been reviewed and edited as necessary for today's visit. Medical Decision Making: Problems: Low: Stable chronic illness Risk: Moderate: Drug management and Moderate risk from testing/treatment Medical Decision Making Level: 3 - Low documented in this encounter [facility] 05-08-2025 Note HNO ID: [id number] Author: FEMI ARGUETA RN Service: ? Author Type: Registered Nurse Type: Progress Notes Filed: 05/08/2025 11:27 Note Text: EKG [facility] 05-08-2025 History of Present illness Narrative EKG documented in this encounter [facility] 05-08-2025 Telephone encounter Note Spoke to the patient stating they are wanting a DEBBI from [facility] to [facility]. Scheduled appt for EP confirmed date, time and location. Rosibel Esquivel [facility] 05-08-2025 Miscellaneous Notes Spoke to the patient stating they are wanting a DEBBI from [facility] to [facility]. Scheduled appt for EP confirmed date, time and location. Rosibel Esquivel documented in this encounter [facility] 03-14-2025 Note HNO ID: [id number] Author: MADINA AMADOR RN Service: ? Author Type: Registered Nurse Type: Progress Notes Filed: 03/14/2025 11:11 Note Text: Spoke with social work at [facility], patient is now a permanent resident under the care of facility physician, Dr. Violette Abdi MD. Dr. Violette Abdi MD will manage all patient care hereafter (including refilling prescriptions). [facility] chart updated to reflect PCP change. Madina Amador RN [facility] 03-14-2025 History of Present illness Narrative Spoke with social work at [facility], patient is now a permanent resident under the care of facility physician, Dr. Violette Abdi MD. Dr. Violette Abdi MD will manage all patient care hereafter (including refilling prescriptions). [facility] chart updated to reflect PCP change. Madina Amador RN documented in this encounter [facility] 03-14-2025 Note Patient Outreach (AG ACM) AURORAALFONZO Myrna ([id number]) 1960 M Date Time Provider Department 03/14/25 MADINA AMADOR [facility] During your visit today, we recorded the following information about you: Madina Amador RN 03/14/2025 11:11 AM Signed Spoke with social work at [facility], patient is now a permanent resident under the care of facility physician, Dr. Violette Abdi MD. Dr. Violette Abdi MD will manage all patient care hereafter (including refilling prescriptions). [facility] chart updated to reflect PCP change. Madina Amador RN Allergies As of Date: 03/14/2025 (No Known Allergies) Date Reviewed: 02/22/2025 Reviewed by: Kenyetta Alan MA - Fully Assessed Reason for Visit: 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 Care [6394] Cmt: SNF update - terminal superintendent resident Prescriptions as of 03/14/2025 - magnesium hydroxide 2,400 mg/10 mL susp Take 10 mL by mouth once daily as needed. - polyethylene glycol 3350 4 gram pwpk Take by mouth. - magnesium, aluminum hydroxide (ALUMINUM-MAGNESIUM HYDROXIDE ORAL) Take by mouth. - hydrALAZINE (APRESOLINE) 10 mg tablet - senna (SENOKOT) 8.6 mg tab Take 8.6 mg by mouth two times a day. - ELIQUIS 5 mg tab(s) - buPROPion XL (WELLBUTRIN XL) 300 mg 24 hr tablet Take 1 tablet by mouth once daily. - Bisacodyl (DULCOLAX) 5 mg tab Take 5 mg by mouth as needed for constipation. - miconazole 2 % powder Apply 1 application to affected area two times a day. - tamsulosin (FLOMAX) 0.4 mg TAKE 1 CAPSULE AT BEDTIME - acetaminophen (TYLENOL) 500 mg tablet Take 2 tablets by mouth every 8 hours as needed for pain. - amLODIPine (NORVASC) 5 mg tablet Take 2 tablets by mouth once daily. - lisinopril (ZESTRIL) 40 mg tablet Take 1 tablet by mouth once daily. - atorvastatin (LIPITOR) 20 mg tablet Take 1 tablet by mouth once daily. Problem List As Of Date 03/14/2025 Noted Resolved Essential hypertension [I10] 05/25/2016 Benign prostatic hyperplasia with lower urinary*05/25/2016 Vitamin D deficiency [E55.9] 05/25/2016 Bradycardia [R00.1] 05/25/2016 Systolic murmur [R01.1] 05/25/2016 Bilateral lower extremity edema [R60.0] 05/25/2016 12/25/2020 Dyslipidemia [E78.5] 02/10/2018 HARJEET (obstructive sleep apnea) [G47.33] 02/10/2018 Obesity, Class III, BMI >= 40 E66.01 [E66.813] 02/13/2018 Obesity, Class II, BMI 35-39.9 [E66.812] [...] Traumatic subdural hematoma with loss of consci*05/09/2024 09/18/2024 Intracranial meningioma (HCC) [D32.0] 05/09/2024 Failure to thrive in adult [R62.7] 06/04/2024 H/O: CVA (cerebrovascular accident) [Z86.73] 06/07/2024 Morbid (severe) obesity due to excess calories *06/24/2020 Recurrent major depressive disorder, in partial*06/24/2020 09/18/2024 Obesity, Class II, BMI 35-39.9 [E66.812] 09/18/2024 Multiple subsegmental pulmonary emboli without *09/24/2024 Pulmonary emboli (HCC) [I26.99] 09/24/2024 Pulmonary embolism without acute cor pulmonale,*09/24/2024 History of intracranial hemorrhage [Z86.79] 09/24/2024 Traumatic subdural hematoma with loss of consci*10/13/2024 Encounter Status:Closed by MADINA AMADOR on 03/14/25 [facility] 02-22-2025 Instructions Anya Huang APRN.CHAN - 02/22/2025 1:38 PM EDT Images from the original note were not included. Regarding your visit with Nurse Practitioner Anya Huang today at the [facility] Cerebrovascular Center we discussed the following: Impression: [...] have any questions Anya Huang CNP [facility]erebro[facility] [place] Nurse Practitioner [place], [place] [address] Office: [phone] Appointments: [phone] Stroke Signs and Symptoms: *Stroke is a [...] diet rich in fruits and vegetables (https://www.nhlbi.nih.gov/educati on/luud-gqevoq-fuel) - Consider Mediterranean diet supplemented with nuts [...] of an exercise program by a health resident caregiver such as a physical therapist or cardiac [...] for their cardiovascular health Adapted from the [place] [employer] Association/[place] Stroke Association: 202 Guideline for the Prevention of Stroke in Patients With Stroke and Transient Ischemic Attack documented in this encounter [facility] 02-22-2025 History of Present illness Narrative [facility]EREBR[facility]ULAR CENTER Established Visit Consultation is requested by: No referring provider defined for this encounter. PCP: [place] [address] CEREBROVASCULAR HISTORY Alfonzo Simon is a 64 year old left-handed male presenting for hospital discharge follow up. Admitted to [facility] 04/15-04/25/24. From discharge summary Mr. Alfonzo Simon was directly admitted to [facility] on 04/15/2024 for treatment of injuries [...] be a meningioma on 04/16/[address] Patel. On the day of his surgery, he [...] outpatient follow-up with his treating neurosurgery (Dr. Patel) two weeks post-operatively for re-evaluation and craniotomy [...] discharge. Mr. Simon would be discharged to [facility] rehab in stable condition on 04/25/2024. He [...] new symptoms or clinical events -living at [facility] -prior to this lived at home with [...] any new symptoms or clinical events -at [facility] - thinks will have to leave soon [...] any new symptoms or clinical events -at [facility] -left side getting a bit stronger, cannot [...] drift LUE Sensation: Intact light touch Coordination: [id number] without dysmetria on right Gait: deferred LABS [...] and Subdural Hematoma Subarachnoid Hemorrhage: Trauma Modified [place] Score: Score: 3 NIH Stroke Scale: LOC: [...] which included preparing to see the patient, nrma-au-xhoe patient care, completing clinical documentation, obtaining and/or reviewing separately obtained history, performing a medically appropriate examination, counseling and educating the patient/family/caregiver, independently interpreting results (not separately reported), communicating results to the patient/family/caregiver, and care coordination (not separately reported) SIGNATURE Anya Huang APRN.CNP CC No referring provider defined for this encounter. Karthik Holliday [address] [place] [address] documented in this encounter [facility] 02-22-2025 Note HNO ID: [id number] Author: ANYA HUANG APRN.CNP Service: ? Author Type: Nurse Practitioner Type: Progress Notes Filed: 02/22/2025 16:48 Note Text: CEREBROVASCULAR CENTER Established Visit Consultation is requested by: No referring provider defined for this encounter. PCP: Karthik Holliday [address] [place] [address] CEREBROVASCULAR HISTORY Alfonzo Simon is a 64 year old left-handed male presenting for hospital discharge follow up. Admitted to [facility] 04/15-04/25/24. From discharge summary Mr. Alfonzo Simon was directly admitted to [facility] on 04/15/2024 for treatment of injuries [...] be a meningioma on 04/16/[address] Patel. On the day of his surgery, he [...] outpatient follow-up with his treating neurosurgery (Dr. Patel) two weeks post-operatively for re-evaluation and craniotomy [...] discharge. Mr. Simon would be discharged to [facility] rehab in stable condition on 04/25/2024. He [...] new symptoms or clinical events -living at [facility] -prior to this lived at home with [...] any new symptoms or clinical events -at [facility] SNF - thinks will have to leave soon because of insurance, would be sent home with home care -prior to this lived at home with , will help take care of him -PT, OT, speech -LUE weakness getting better, sometimes muscles feel a little tight but not painful. Takes tylenol of sore after therapy which helps -speech is essentially back t (more content not included)... [facility] 01-19-2025 History of Present illness Narrative NEUROSURGERY FOLLOW UP OFFICE NOTE Dr. Leonard Patel MD, FACS Date of visit: January 19, 2025 Patient Name: Mr.Kevin Myrna Simon Date of : 1960 Current Age: [age] year old Sex: male MRN/E# [id number] Last Office Visit: 10/27/2024 CHIEF COMPLAINT: Patient presents with: Established Patient SUBJECTIVE: The patient presents as a follow-up with imaging (MRI B) for evaluation. This is a 64 year old male with a PMHx of BPH, HTN, morbid obesity, parkinsonism and sleep apnea who was seen for consult at [facility] on 04/16/24 after transfer from [facility] ED for a SAH. Per patients , [...] wheelchair as he was still residing at [facility] in [place]. He reported that he was doing well . He denied any headache, visual changes, speech deficits, seizure activity, new motor or sensory deficits. CT was reviewed and showed almost complete resolution of the fluid with a very small area of residual. 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 Otherwise he should return in January 2025 with an MRI be for evaluation of any residual or recurrent tumor. Today he states he is overall doing better. He continues to reside in a [facility] [address] in [place]. He continues to work with PT. He [...] excision of tumor on 04/16/[address] Patel. FINAL DIAGNOSIS A. Brain tumor, excision: - [...] (RADIOLOGY PROCEDURE) - NOT ON MAR Leonard Paetl MD FOLLOW UP: Return in about 1 year (around 01/19/2026) for review of MRI. Please Note: This note has been partially generated using [employer]ully, a speech recognition software program, and may contain errors including punctuation, grammar, spelling, gender, and inappropriate words or phrases that pertain to the system. documented in this encounter [facility] 01-19-2025 Note HNO ID: [id number] Author: LEONARD PATEL MD Service: ? Author Type: Physician Type: Progress Notes Filed: 01/19/2025 10:31 Note Text: NEUROSURGERY FOLLOW UP OFFICE NOTE Dr. Leonard Patel MD, FACS Date of visit: January 19, 2025 Patient Name: Mr.Kevin Myrna Simon Date of : 1960 Current Age: [age] year old Sex: male MRN/E# [id number] Last Office Visit: 10/27/2024 CHIEF COMPLAINT: Patient presents with: Established Patient SUBJECTIVE: The patient presents as a follow-up with imaging (MRI B) for evaluation. This is a 64 year old male with a PMHx of BPH, HTN, morbid obesity, parkinsonism and sleep apnea who was seen for consult at [facility] on 04/16/24 after transfer from [facility] ED for a SAH. Per patients , [...] wheelchair as he was still residing at [facility]. He reported that he was doing well . He denied any headache, visual changes, speech deficits, seizure activity, new motor or sensory deficits. CT was reviewed and showed almost complete resolution of the fluid with a very small area of residual. 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 Otherwise he should return in January 2025 with an MRI be for evaluation of any residual or recurrent tumor. Today he states he is overall doing better. He continues to reside in a [facility], [address] in [place]. He continues to work with PT. He [...] excision of tumor on 04/16/[address] Patel. FINAL DIAGNOSIS A. Brain tumor, excision: - [...] oxalate (LEXAPRO) 10 mg tablet Take 1 tab (more content not included)... [facility] 01-18-2025 Note Addended by: KARTHIK NICHOLAS on: 01/18/2025 04:33 PM Modules accepted: Orders [facility] 01-18-2025 Miscellaneous Notes Addended by: KARTHIK HOLLIDAY on: 01/18/2025 04:33 PM Modules accepted: Orders documented in this encounter [facility] 01-16-2025 History of Present illness Narrative Radiology [...] PATIENT PRESENTS WITH AN IMPLANTABLE OR ATTACHED MICROGRINDER OPERATOR: No ALLERGIES: Reviewed and unchanged CONTRAST ALLERGY: NO. EXAM: MRI - CONTRAST TYPE: GROUP II PERIPHERAL IV DATA: Ambulatory: A peripheral IV was started in the Right antecubital site with a Angio cath: 22 gauge. RADIOLOGY DEPARTMENT: MR; Exam(s) Completed: Head: Routine Brain SIGNATURE: FRANCOIS Najera PATIENT NAME: Alfonzo Simon DATE: January 16, 2025 TIME: 10:26 AM documented in this encounter [facility] 01-16-2025 Note HNO ID: [id number] Author: WALDO FERRARA MRI Tech Service: Radiology Author Type: Technologist Type: Progress Notes Filed: 01/16/2025 10:27 Note Text: Radiology Service Progress Note DATE OF SERVICE: [...] PATIENT PRESENTS WITH AN IMPLANTABLE OR ATTACHED MICROGRINDER OPERATOR: No ALLERGIES: Reviewed and unchanged CONTRAST ALLERGY: NO. EXAM: MRI - CONTRAST TYPE: GROUP II PERIPHERAL IV DATA: Ambulatory: A peripheral IV was started in the Right antecubital site with a Angio cath: 22 gauge. RADIOLOGY DEPARTMENT: MR; Exam(s) Completed: Head: Routine Brain SIGNATURE: Waldo Ferrara violin repairer PATIENT NAME: Alfonzo Simon DATE: January 16, 2025 TIME: 10:26 AM [facility] 12-12-2024 Note HNO ID: [id number] Author: FAITH MOORE APRN.RN ELIGIBILITY Service: ? Author Type: Nurse Practitioner Type: Progress Notes Filed: 12/12/2024 12:44 Note Text: Hematology Consultation Date: 12/12/2024 Referring Physician: Anya [...] anticoagulation duration. He is currently residing at halfway facility and is here in a wheelchair. [...] Lab Results Component Value Date WBC 8.07 09/09 (more content not included)... [facility] 12-12-2024 History of Present illness Narrative [...] anticoagulation duration. He is currently residing at halfway facility and is here in a wheelchair. [...] Discussed his case with one of our manager assurance and they agree with plan documented in this encounter [facility] 12-01-2024 Telephone encounter Note Please let Alfonzo know that they would not cover the increase in Bupropion and therefore I sent Lexapro 10 mg to be taken with the 300 mg of bupropion. Have him take half a tablet for the first 14 days then he can increase to the full 10 mg tablet. Karthik Holliday APRN.CNP December 01, 2024 9:03 AM [facility] 12-01-2024 Miscellaneous Notes Please let Alfonzo know [...] pharmacy. Thank you documented in this encounter [facility] 12-01-2024 Telephone encounter Note Bupropion xl 450 mg has been denied by insurance. Would like alternative sent to pharmacy. Thank you [facility] 11-29-2024 Telephone encounter Note PA done for BuPropion XL 450mg Denied FYI [facility] 11-29-2024 Miscellaneous Notes PA done for BuPropion XL 450mg Denied FYI documented in this encounter [facility] 11-28-2024 Note HNO ID: [id number] Author: KARTHIK HOLLIDAY APRN.RN ELIGIBILITY Service: ? Author Type: Nurse Practitioner Type: Progress Notes Filed: 11/28/2024 08:56 Note Text: VIRTUAL VISIT PROGRESS NOTE This is a virtual visit using [employer] Video Visit. It required patient-provider interaction for the medical decision making as documented below. I have communicated my name and active licensure. The patient's identity and physical location were verified at the time of this visit. Either the patient or their legal branch sales and service representative has been informed of the risks [...] which included preparing to see the patient, [id number] patient care, completing clinical documentation, obtaining and/or reviewing separately obtained history, performing a medically appropriate examination, counseling and educating the patient/family/caregiver, ordering medications, tests, or procedures, and communicating with other HCPs (not separately reported) Karthik Holliday APRN.[facility] 11-28-2024 History of Present illness Narrative VIRTUAL VISIT PROGRESS NOTE This is a virtual visit using [employer] Zoom Video Visit. It required patient-provider interaction for the medical decision making as documented below. I have communicated my name and active licensure. The patient's identity and physical location were verified at the time of this visit. Either the patient or their legal branch sales and service representative has been informed of the risks [...] which included preparing to see the patient, [id number] patient care, completing clinical documentation, obtaining and/or reviewing separately obtained history, performing a medically appropriate examination, counseling and educating the patient/family/caregiver, ordering medications, tests, or procedures, and communicating with other HCPs (not separately reported) Karthik Holliday APRN.RN ELIGIBILITY documented in this encounter [facility] 10-27-2024 History of Present illness Narrative NEUROSURGERY FOLLOW UP OFFICE NOTE Dr. Leonard Patel MD, FACS Date of visit: October 27, 2024 Patient Name: Mr.Kevin Myrna Simon Date of : 1960 Current Age: [age] year old Sex: male MRN/E# [id number] Last Office Visit: 10/13/2024 CHIEF COMPLAINT: No chief complaint on file. SUBJECTIVE: The patient presents as a follow up with CT WO imaging (brain) for evaluation. This is a 64 year old male with a PMHx of BPH, HTN, morbid obesity, parkinsonism and sleep apnea who was seen for consult at [facility] on 04/16/24 after transfer from [facility] for a SAH. Per patients , [...] to do well. He was residing in [facility] and participating in PT/OT/ST. He was moving [...] for possible pseudomeningocele or superimposed infection. The halfway facility was contacted with recommendation for the [...] in a wheelchair. [facility] Denies headaches or blurred vision. He presents for image review, evaluation and plan of care. SYMPTOMS: None PREVIOUS CONSERVATIVE TREATMENTS: longterm facility PT/OT SURGICAL RISK: Smoker: Never Diabetic: No Anticoagulants / Antiplatelets: ASA 81 mg Occupation: NA PREVIOUS SURGERY: SURGERY #1: Right frontal craniotomy for evacuation of SDH and excision of tumor on 04/16/[address] Patel. FINAL DIAGNOSIS A. Brain tumor, excision: - [...] Eliquis for his cardiac condition and his field crops harvest machine operator thinks he should be on it I [...] (RADIOLOGY PROCEDURE) - NOT ON JAN Leonard Patel MD FOLLOW UP: January 2025 with an MRI scan Please Note: This note has been partially generated using FiFully, a speech recognition software program, and may contain errors including punctuation, grammar, spelling, gender, and inappropriate words or phrases that pertain to the system. documented in this encounter [facility] 10-27-2024 Note HNO ID: [id number] Author: LEONARD PATEL MD Service: ? Author Type: Physician Type: Progress Notes Filed: 10/27/2024 15:13 Note Text: NEUROSURGERY FOLLOW UP OFFICE NOTE Dr. Leonard Patel MD, [facility] Date of visit: October 27, 2024 Patient Name: Mr.Kevin Myrna Simon Date of : 1960 Current Age: [age] year old Sex: male MRN/E# [id number] Last Office Visit: 10/13/2024 CHIEF COMPLAINT: No chief complaint on file. SUBJECTIVE: The patient presents as a follow up with CT WO imaging (brain) for evaluation. This is a 64 year old male with a PMHx of BPH, HTN, morbid obesity, parkinsonism and sleep apnea who was seen for consult at [facility] on 04/16/24 after transfer from [place] [facility] for a SAH. Per patients , [...] to do well. He was residing in [facility] and participating in PT/OT/ST. He was moving [...] for possible pseudomeningocele or superimposed infection. The halfway facility was contacted with recommendation for the [...] in a wheelchair. He is currently in [facility]. Denies headaches or blurred vision. He presents for image review, evaluation and plan of care. SYMPTOMS: None PREVIOUS CONSERVATIVE TREATMENTS: longterm facility PT/OT SURGICAL RISK: Smoker: Never Diabetic: No Anticoagulants / Antiplatelets: ASA 81 mg Occupation: NA PREVIOUS SURGERY: SURGERY #1: Right frontal craniotomy for evacuation of SDH and excision of tumor on 04/16/[address] Patel. FINAL DIAGNOSIS A. Brain tumor, excision: - [...] 05/25/2016 Obesity, morbid, BMI 40.0-49.9 (HCC) Parkinsonism (H (more content not included)... [facility] 10-26-2024 Telephone encounter Note Patient facility called in and wanted to verify patient did not have a co pay due tomorrow. I looked at the [facility] CT and follow up and the balance under co pay said 0. I informed facility it stated 0 due [facility] 10-26-2024 Miscellaneous Notes Patient facility called in and wanted to verify patient did not have a co pay due tomorrow. I looked at the [facility] CT and follow up and the balance under co pay said 0. I informed facility it stated 0 due documented in this encounter [facility] 10-26-2024 Telephone encounter Note Submitted through portal Consult to Hematology/Oncology #[id number], to be scheduled at [facility] 10-26-2024 Miscellaneous Notes Submitted through portal Consult to Hematology/Oncology #[id number], to be scheduled at [facility] dh documented in this encounter [facility] 10-26-2024 Instructions Anya Huang, FELIX.RN ELIGIBILITY - 10/26/2024 11:00 AM EST Images from the original note were not included. Regarding your visit with Nurse Practitioner Anya Huang today at the [facility] Cerebrovascular Center we discussed the following: Impression: [...] if you have any questions Anya Huang [facility] Cerebrovascular [place] Nurse Practitioner [place], [place] [address] Office: [phone] Appointments: [phone] Stroke Signs and Symptoms: *Stroke is a [...] diet rich in fruits and vegetables (https://www.nhlbi.nih.gov/educati on/efgi-bnssfl-ropl) - Consider Mediterranean diet supplemented with nuts [...] of an exercise program by a health resident caregiver such as a physical therapist or cardiac [...] for their cardiovascular health Adapted from the [place] [employer]/[place] Stroke Association: 2021 Guideline for the Prevention of Stroke in Patients With Stroke and Transient Ischemic Attack documented in this encounter [facility] 10-26-2024 History of Present illness Narrative CEREBROVASCULAR CENTER Established Visit Consultation is requested by: No referring provider defined for this encounter. PCP: Karthik Holliday [address] [place] [address] CEREBROVASCULAR HISTORY Alfonzo Simon is a 64 year old left-handed male presenting for hospital discharge follow up. Admitted to [facility] 04/15-04/25/24. From discharge summary Mr. Alfonzo Simon was directly admitted to [facility] on 04/15/2024 for treatment of injuries [...] be a meningioma on 04/16/[address] Patel. On the day of his surgery, he [...] outpatient follow-up with his treating neurosurgery (Dr. Patel) two weeks post-operatively for re-evaluation and craniotomy [...] discharge. Mr. Simon would be discharged to [facility] rehab in stable condition on 04/25/2024. He [...] new symptoms or clinical events -living at [facility] -prior to this lived at home with [...] any new symptoms or clinical events -at [facility] SNF - thinks will have to leave [...] drift LUE Sensation: Intact light touch Coordination: [id number] without dysmetria on right Gait: deferred LABS [...] and Subdural Hematoma Subarachnoid Hemorrhage: Trauma Modified [place] Score: Score: 3 NIH Stroke Scale: LOC: [...] which included preparing to see the patient, [id number] patient care, completing clinical documentation, obtaining and/or reviewing separately obtained history, performing a medically appropriate examination, counseling and educating the patient/family/caregiver, communicating with other HCPs (not separately reported), independently interpreting results (not separately reported), communicating results to the patient/family/caregiver, and care coordination (not separately reported) SIGNATURE Anya Huang APRN.CNP CC No referring provider defined for this encounter. Karthik Holliday [address] [place] [address] documented in this encounter [facility] 10-26-2024 Note HNO ID: [id number] Author: ANYA HUANG APRN.CNP Service: ? Author Type: Nurse Practitioner Type: Progress Notes Filed: 10/26/2024 11:47 Note Text: CEREBROVASCULAR CENTER Established Visit Consultation is requested by: No referring provider defined for this encounter. PCP: [place] [address] CEREBROVASCULAR HISTORY Alfonzo Simon is a 64 year old left-handed male presenting for hospital discharge follow up. Admitted to [facility] 04/15-04/25/24. From discharge summary Mr. Alfonzo Simon was directly admitted to [facility] on 04/15/2024 for treatment of injuries sustained during a reported ground level fall that occurred on 04/14/2024. CT imaging revealed the following acute traumatic injuries: 1. Right subdural hematoma measuring up to 13 mm with 5 mm leftward midline shift 2. Right frontal subarachnoid hemorrhage 3. Left lower flank/buttock subcutaneous lobulated hematoma measuring up to 15 cm. Mr. Simno was admitted to the ICU. Neurosurgery was consulted. He would undergo right craniotomy evacuation of his subdural hematoma and excision of an incidentally noted brain tumor suspected to be a meningioma on 04/16/[address] Patel. On the day of his surgery, he [...] outpatient follow-up with his treating neurosurgery (Dr. Patel) two weeks post-operatively for re-evaluation and craniotomy [...] discharge. Mr. Simon would be discharged to [facility] rehab in stable condition on 04/25/2024. He [...] new symptoms or clinical events -living at [facility] -prior to this lived at home with [...] any new symptoms or clinical events -at [facility] SNF - thinks will have to leave soon because of insurance, would be sent home with home care -prior to this lived at home with , will help take care of him -PT, OT, speech -LUE weakness getting better, sometimes muscles feel a little tight but not painful. Takes tylenol of sore after therapy which helps -speech is essentially back t (more content not included)... [facility] 10-13-2024 History of Present illness Narrative NEUROSURGERY FOLLOW UP OFFICE NOTE Dr. Leonard Patel MD, FACS Date of visit: October 13, 2024 Patient Name: Mr.Kevin Myrna Simon Date of : 1960 Current Age: [age] year old Sex: male MRN/E# [id number] Last Office Visit: June 20, 2024 CHIEF COMPLAINT: Patient presents with: Established Patient SUBJECTIVE: The patient presents as a follow-up with imaging (MRI B) for evaluation. This is a 64 year old male with a PMHx of BPH, HTN, morbid obesity, parkinsonism and sleep apnea who was seen for consult at [facility] on 04/16/24 after transfer from [facility] for a SAH. Per patients , [...] to do well. He was residing in [facility] and participating in PT/OT/ST. He was moving [...] for possible pseudomeningocele or superimposed infection. The halfway facility was contacted with recommendation for the [...] excision of tumor on 04/16/[address] Patel. FINAL DIAGNOSIS A. Brain tumor, excision: - [...] follow-up on this finding. - CT BRAIN WO IVCON 2. Intracranial meningioma (HCC) - ICD9: 225.2, ICD10: D32.0 - CT BRAIN WO IVCON Leonard Patel MD FOLLOW UP: Return in about 2 weeks (around 10/27/2024) for review of imaging and plan of care. Please Note: This note has been partially generated using FiFully, a speech recognition software program, and may contain errors including punctuation, grammar, spelling, gender, and inappropriate words or phrases that pertain to the system. documented in this encounter [facility] 10-13-2024 Note HNO ID: [id number] Author: LEONARD PATEL MD Service: ? Author Type: Physician Type: Progress Notes Filed: 10/13/2024 11:48 Note Text: NEUROSURGERY FOLLOW UP OFFICE NOTE Dr. Leonard Patel MD, FACS Date of visit: October 13, 2024 Patient Name: Mr.Kevin Myrna Simon Date of : 1960 Current Age: [age] year old Sex: male MRN/E# [id number] Last Office Visit: June 20, 2024 CHIEF COMPLAINT: Patient presents with: Established Patient SUBJECTIVE: The patient presents as a follow-up with imaging (MRI B) for evaluation. This is a 64 year old male with a PMHx of BPH, HTN, morbid obesity, parkinsonism and sleep apnea who was seen for consult at [facility] on 04/16/24 after transfer from [place] [facility] for a SAH. Per patients , [...] to do well. He was residing in [facility] and participating in PT/OT/ST. He was moving [...] for possible pseudomeningocele or superimposed infection. The halfway facility was contacted with recommendation for the [...] excision of tumor on 04/16/[address] Patel. FINAL DIAGNOSIS A. Brain tumor, excision: - [...] a day for 5 days, THEN 1 (more content not included)... [facility] 10-10-2024 Telephone encounter Note Contacted nurse, Elizabeth at [facility] [phone] after receiving results of recent MRI brain. She reported that Alfonzo is neurologically unchanged. No new weakness, lethargy, fever. His craniotomy incision is well healed without any redness, swelling, drainage or dehiscence. He was recently started on Eliquis for DVT, PE and taking 5mg daily. Discussed that Dr. Patel would like to see Alfonzo in the office for evaluation. Will have our schedulers reach out to [facility] and scheduled an appointment for this week. ARACELIS Boucher Neurosurgery Nurse Practitioner [facility] 10:37 AM 10/10/2024 [facility] Work Phone: 10-10-2024 Miscellaneous Notes Contacted nurse, Elizabeth at [facility] [phone] after receiving results of recent MRI brain. She reported that Alfonzo is neurologically unchanged. No new weakness, lethargy, fever. His craniotomy incision is well healed without any redness, swelling, drainage or dehiscence. He was recently started on Eliquis for DVT, PE and taking 5mg daily. Discussed that Dr. Patel would like to see Alfonzo in the office for evaluation. Will have our schedulers reach out to [facility] and scheduled an appointment for this week. ARACELIS Boucher Neurosurgery Nurse Practitioner [facility] 10:37 AM 10/10/2024 documented in this encounter [facility] 10-04-2024 Telephone encounter Note MRI results as below. Scan was ordered for routine follow up of microhemorrhages. Dr. Patel, can your office get him in to [...] Clinical correlation and neurosurgical follow-up is recommended. [facility] Work Phone: 10-04-2024 Miscellaneous Notes MRI results as below. Scan was ordered for routine follow up of microhemorrhages. Dr. Patel, can your office get him in to [...] follow-up is recommended. documented in this encounter [facility] 10-02-2024 History of Present illness Narrative Radiology [...] PATIENT PRESENTS WITH AN IMPLANTABLE OR ATTACHED MICROGRINDER OPERATOR: No RADIOLOGY DEPARTMENT: MR; Exam(s) Completed: Head: Routine Brain PERIPHERAL IV DATA: Not applicable SIGNED BY: RT Bert(Yovani) October 02, 2024 8:33 AM documented in this encounter [facility] 10-02-2024 Note HNO ID: [id number] Author: MACK DILLARD RT(R) Service: Radiology Author Type: Technologist Type: Progress Notes Filed: 10/02/2024 08:33 Note Text: Radiology Service Progress Note PATIENT NAME: Alfonzo [...] PATIENT PRESENTS WITH AN 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 Author Type: Registered Nurse Type: Progress Notes Filed: 09/29/2024 07:32 Note Text: TRANSITION CARE MANAGEMENT (TCM) DISCHARGE TO POST ACUTE FACILITY POST ACUTE TRANSFER SUMMARY: -Pt discharged from [facility] on 09/28/2024. -Post Acute Facility Admitted to [facility] -Admitted for: Pulmonary Embolism Madina Amador RN September 29, 2024 [facility] 09-29-2024 History of Present illness Narrative TRANSITION CARE MANAGEMENT (TCM) DISCHARGE TO POST ACUTE FACILITY POST ACUTE TRANSFER SUMMARY: -Pt discharged from [facility] on 09/28/2024. -Post Acute Facility Admitted to [facility] -Admitted for: Pulmonary Embolism Madina Amador RN September 29, 2024 documented in this encounter [facility] 09-29-2024 Note Patient Outreach (AG ACM) AURORAALFONZO P ([id number]) 1960 M Date Time Provider Department 09/29/24 MADINA AMADOR [facility] During your visit today, we recorded the following information about you: Madina Amador RN 09/29/2024 7:32 AM Signed TRANSITION CARE MANAGEMENT (TCM) DISCHARGE TO POST ACUTE FACILITY POST ACUTE TRANSFER SUMMARY: -Pt discharged from [facility] on 09/28/2024. -Post Acute Facility Admitted to [facility] -Admitted for: Pulmonary Embolism Madina Amador RN September 29, 2024 Allergies As of Date: 09/29/2024 (No Known Allergies) Date Reviewed: 09/27/2024 Reviewed by: Lilian Redd, ARNOLD - Fully Assessed Reason for Visit: 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 Care [4074] Cmt: [facility] Discharge to [facility] Prescriptions as of 09/29/2024 - polyethylene glycol 3350 17 gram packet [...] once daily. Problem List As Of Date 09/29/2024 Noted Resolved Essential hypertension [I10] 05/25/2016 Benign [...] Traumatic subdural hematoma with loss of consci*05/09/2024 09/18/2024 Intracranial meningioma (HCC) [D32.0] 05/09/2024 Failure to thrive in adult [R62.7] 06/04/2024 H/O: CVA (cerebrovascular accident) [Z86.73] 06/07/2024 Morbid (severe) obesity due to excess calories *06/24/2020 Recurrent major depressive disorder, in partial*06/24/2020 09/18/2024 Obesity, Class II, BMI 35-39.9 [E66.812] 09/18/2024 Multiple subsegmental pulmonary emboli without *09/24/2024 Pulmonary emboli (HCC) [I26.99] 09/24/2024 Pulmonary embolism without acute cor pulmonale,*09/24/2024 History of intracranial hemorrhage [Z86.79] 09/24/2024 Encounter Status:Closed by MADINA AMADOR on 09/29/24 [facility] 09-28-2024 Note HNO ID: [id number] Author: CAREY DE LA ROSA RN Service: Care Management Author Type: Registered Nurse Type: Care Mgt Progress Note Filed: 09/28/2024 13:08 Note Text: CARE MANAGEMENT DISCHARGE NOTE SERVICE DATE: September 28, 2024 SERVICE TIME: 1:07 PM Admission Date: 09/23/2024 LOS: 4 days Discharge Arrangement Discharge Arrangement: Longterm Facility Was an expedited discharge program used?: No Services Arranged Provider Name: [facility] Phone: Caregiver Assessment Caregiver is ready, willing and able to meet the patient's needs as recommended by the inter-professional team: Yes Name of Caregiver: SNF Transportation Arrangements Transportation Arrangements: Ambulance Transportation Agency and Phone #:: [facility] [phone] / [phone] Date of Trip: 09/28/24 Time of Trip: 1600 Type of Service: BLS Non-emergency Is Patient Medicaid Pending?: No Was transportation financial coverage discussed with family?: Patient Network Account Manager Location: [facility] Destination: [facility] Financial Care Management Responsibility: None Handoff Communication: Additional Information: Patient discharged today, to transition to [facility]. Auth approved, sent the dc summary and 7000. [facility] to transport via cot at 1600. Transport folder on chart, notified floor RN. Updated pt at bedside of dc plans, agreeable. Discharge Information Row Name ED to Hosp-Admission (Current) from 09/23/[address] Longterm Facility Agency [facility] SIGNATURE: Carey De La Rosa RN PATIENT NAME: Alfonzo Simon DATE: September 28, 2024 TIME: 1:06 PM CONTACT #: [phone] [facility] 09-28-2024 Note HNO ID: [id number] Author: RANDEE HAGAN RPh Service: Pharmacy Author Type: Pharmacist Type: Plan of Care Filed: 09/28/2024 12:51 Note Text: DISCHARGE MEDICATION REVIEW BY PHARMACY Patient Name: Alfonzo Simon Account #: Data Unavailable Admission Date: 09/23/2024 Date of Contact: September 28, 2024 Time of Contact: 12:51 PM Medication list was reviewed by a Pharmacist for drug interactions or drug related problems:Yes Below is a summary of pharmacist recommendations discussed with LIP: No recommendations at this time from discharge medication list. Randee Hagan RPh Medication List START taking these medications apixaban 5 mg tab(s) Commonly known as: ELIQUIS Take 2 tablets by mouth two times a day for 5 days, THEN 1 tablet two times a day for 28 days. Start taking on: September 28, 2024 miconazole 2 % powder Apply 1 application to affected area two times a day. polyethylene glycol 3350 17 gram packet Take 1 Packet by mouth once daily. Dissolve dose in 4 - 8 ounces of liquid and take as directed. Start taking on: September 29, 2024 CONTINUE taking these medications acetaminophen 500 mg tablet Commonly known as: TYLENOL Take 2 tablets by mouth every 8 hours as needed for pain. amLODIPine 5 mg tablet Commonly known as: NORVASC Take 2 tablets by mouth once daily. atorvastatin 20 mg tablet Commonly known as: LIPITOR Take 1 tablet by mouth once daily. HYDRALAZINE ORAL lisinopril 40 mg tablet Commonly known as: ZESTRIL Take 1 tablet by mouth once daily. nystatin powder Commonly known as: MYCOSTATIN Apply 1 application to affected area four times daily. senna-docusate 8.6-50 mg per tablet Commonly known as: SENNA-S Take 1 tablet by mouth two times a day. tamsulosin 0.4 mg Commonly known as: FLOMAX TAKE 1 CAPSULE AT BEDTIME WELLBUTRIN XL 300 mg 24 hr tablet Generic drug: buPROPion XL STOP taking these medications aspirin 81 mg chewable tablet [facility] 09-28-2024 Note HNO ID: [id number] Author: CAREY DE LA ROSA RN Service: Care Management Author Type: Registered Nurse Type: Care Mgt Progress Note Filed: 09/28/2024 11:59 Note Text: CARE MANAGEMENT PROGRESS NOTE SERVICE DATE: 09/28/2024 SERVICE TIME: 11:59 AM LOS: 4 days IMM Follow Up Copy Given: Yes Copy given to:: Patient Method: In Person Declined paper copy, verbalized undertstanding SIGNATURE: Carey De La Rosa RN PATIENT NAME: Alfonzo Simon DATE: September 28, 2024 TIME: 11:59 AM PAGER/CONTACT #: [phone] [facility] 09-28-2024 Note HNO ID: [id number] Author: LILIAN KIRK, [place] Service: Care Management Author Type: ? Type: Care Mgt Progress Note Filed: 09/28/2024 11:06 Note Text: [facility] PRECERT NOTE [employer] MEDICARE PPO approved [facility]. Precert approved through 10/02/24. For any additional questions regarding approvals, transport or care management needs, please contact the CM assigned to this patient in the Treatment Team. SIGNATURE: Lilian Kirk DATE: September 28, 2024 TIME: 11:06 AM [facility] 09-27-2024 Note HNO ID: [id number] Author: FLORENCIO FAIR MD Service: Hospital Medicine Author Type: Physician Type: Progress Notes Filed: 09/27/2024 17:35 Note Text: DEPARTMENT OF HOSPITAL MEDICINE PROGRESS NOTE SERVICE DATE: 09/27/2024 SERVICE TIME: 5:32 PM Hospital Medicine/Primary Attending: Florencio Fair MD NIGHT AND WEEKEND COVERAGE: [place] COVERAGE: From 7am - 7pm, please call After 7pm, please call cross cover pager #[phone] Subjective INTERVAL HPI: patient was seen and examined. Current Facility-Administered Medications Medication Dose Route Frequency iv contrast (radiology procedure) INTRAVENOUS DIRECTED PRN sodium chloride 0.9 % (flush) 2-10 mL (BD POSIFLUSH) 2-10 mL INTRAVENOUS DIRECTED PRN amLODIPine 10 mg tab(s) (NORVASC) 10 mg ORAL DAILY atorvastatin 20 mg tab(s) (LIPITOR) 20 mg ORAL DAILY lisinopril 40 mg tab(s) (ZESTRIL) 40 mg ORAL DAILY buPROPion XL 300 mg tab(s) (WELLBUTRIN XL) 300 mg ORAL DAILY acetaminophen 1,000 mg tab(s) (TYLENOL) 1,000 mg ORAL q 8 H PRN tamsulosin 0.4 mg cap(s) (FLOMAX) 0.4 mg ORAL AT BEDTIME NaCl 0.9% iv flush bag 20 mL INTRAVENOUS PRN miconazole 2 % 1 application topical powder 1 application TOPICAL BID apixaban 10 mg tab(s) (ELIQUIS) 10 mg ORAL BID Followed by [START ON 10/03/2024] apixaban 5 mg tab(s) (ELIQUIS) 5 mg ORAL BID hydrALAZINE 20 mg tab(s) (APRESOLINE) 20 mg ORAL q 8 H Objective PHYSICAL EXAM: BP 136/77 Pulse 96 Temp (Src) 98.1 (Axillary) Resp 19 Ht 6' 0" (1.83m) Wt 288 lb (130.6kg) SpO2 93% BMI 39.05 kg/(m2). O2 Therapy: Room Air Physical Exam Performed GENERAL: Alert, no distress, cooperative LUNGS: Lungs clear to auscultation, Good diaphragmatic excursion CARDIAC: Normal S1 and S2; no rubs, murmurs, or gallops ABDOMEN: Abdomen soft, non-tender, BS normal, No masses or organomegaly Lines, Drains, and Airways Line Duration Peripheral 09/23/246 Right Antecubital 20 Gauge 3 days Peripheral 09/24/24 0242 Left Forearm 20 Gauge 3 days DATA: Diagnostic tests reviewed for today's visit: Most recent labs Most recent imaging Assessment/Plan Problem List Assessment AND Plan Pulmonary embolism without acute cor pulmonale, unspecified chronicity, unspecified pulmonary embolism type (HCC) Multiple subsegmental pulmonary emboli without acute cor pulmonale (HCC) Pulmonary emboli (HCC) History of intracranial hemorrhage HOSPITAL COURSE: Bilat PE, provoked: seen by PERT and no need for thrombectomy at this time. Started on Eliquis, to be continued for 3 months given Hx of R subdural hematoma. Discussed with neurology Acute LE DVT: on Eliquis Acute hypoxic respiratory failure: wean oxygen as able. Home oxygen eval a dc. Lactic acidosis: due to #1. Trend. Elevated troponin due to demand ischemia from #1: echo as above. Trend to plateau. 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 Neurology agreeable to start AC for short period of time.see neurology note. 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 Would need short term anticoagulation for that. HTN: norvasc 10 mg daily, lisinopril 40 mg daily. Hydralazine 20 mg TID. Medication and Non-Pharmacologic VTE Prophylaxis/Anticoagulants Anticoagulant AND Antiplatelet Medications (From admission, onward) Start Dose Route Frequency Last Action Ordered Stop 10/03/24 0900 apixaban 5 mg tab(s) (ELIQUIS) (apixaban tab(s) (ELIQUIS)) Placed in "Followed by" Linked Group 5 mg ORAL 2 TIMES DAILY Ordered 09/26/24 1035 -- 09/26/24 1100 apixaban 10 mg tab(s) (ELIQUIS) (apixaban tab(s) (ELIQUIS)) Placed in "Followed by" Linked Group 10 mg ORAL 2 TIMES DAILY Given, 09/27 1005 09/26/24 1035 10/03/24 0859 09/24/24 0707 vte current anticoag therapy (ar,oh) 09/24/24 0707 activity - mobilize patient (ar,[place]) VTE Prophylaxis: VTE prophylaxis appropriate Disposition: To be determined Plan of care discussed with Provider, RN, Patient SIGNATURE: Florencio Fair MD PATIENT NAME: Alfonzo Simon DATE: September 27, 2024 TIME: 5:32 PM [facility] 09-27-2024 Note HNO ID: [id number] Author: CAREY DE LA ROSA RN Service: Care Management Author Type: Registered Nurse Type: Care Mgt Progress Note Filed: 09/27/2024 14:46 Note Text: CARE MANAGEMENT PROGRESS NOTE SERVICE DATE: 09/27/2024 SERVICE TIME: 2:45 PM LOS: 3 days Post-Acute Discharge Planning Patient Goal(s): Ambulate a little better, Ambulate without stopping, Better mobility, Increase strength, General wellness [place] Explained: [place] Given: Yes Level of Care Discussed: Longterm Facility Discharge Planning Participant(s): Patient Patient/Family Comments: Anticipated # of Days Until Discharge: 1 Transport at Discharge: Transportation Arrangements: Ambulance Needs Prior to Discharge: Needs Prior to Discharge: Ready for Discharge, To Be Determined, Discharge Prescriptions, Insurance Authorization, Discharge Transportation Post-Acute Discharge Plan: Auth still pending for [facility]. 7000 completed and sent. Will need cot transport at [facility] to follow clinical progress. SIGNATURE: Carey De La Rosa RN PATIENT NAME: Alfonzo Simon DATE: September 27, 2024 TIME: 2:45 PM PAGER/CONTACT #: [phone] [facility] 09-27-2024 Note HNO ID: [id number] Author: FLORENCIO FAIR MD Service: Care Management Author Type: Physician Type: Care Mgt Progress Note Filed: 09/27/2024 09:30 Note Text: CARE MANAGEMENT PROGRESS NOTE SERVICE DATE: 09/27/2024 SERVICE TIME: 8:38 AM LOS: 3 days Physician Certification of Less Than 30 Days Skilled Needs Earliest Possible Discharge Date: 09/27/24 To the best of my knowledge, all information provided about the individual is a true and an accurate reflection of Alfonzo Simon's needs. I certify that following the inpatient level of care, a post-acute nursing facility stay is required for less than 30 days related to the condition(s) for which the patient was treated during the inpatient level of care: Principal Problem: Pulmonary embolism without acute cor pulmonale, unspecified chronicity, unspecified pulmonary embolism type (HCC) Active Problems: Multiple subsegmental pulmonary emboli without acute cor pulmonale (HCC) Pulmonary emboli (HCC) History of intracranial hemorrhage Resolved Problems: * No resolved hospital problems. * Attending Physician: Florencio Fair MD SIGNATURE: Carey De La Rosa RN PATIENT NAME: Alfonzo Simon DATE: September 27, 2024 TIME: 8:38 AM PAGER/CONTACT #: [phone] [facility] 09-26-2024 Note HNO ID: [id number] Author: CAREY DE LA ROSA RN Service: Care Management Author Type: Registered Nurse Type: Care Mgt Progress Note Filed: 09/26/2024 16:08 Note Text: CARE MANAGEMENT PROGRESS NOTE SERVICE DATE: 09/26/2024 SERVICE TIME: 11:24 AM LOS: 2 days Post-Acute Discharge Planning Patient Goal(s): Ambulate a little better, Ambulate without stopping, Better mobility, Increase strength [place] Explained: [place] Given: Yes Reason Not Given: Unable to complete with this assessment - revisit Discharge Planning Participant(s): Patient Patient/Family Comments: Anticipated # of Days Until Discharge: 1 Transport at Discharge: Transportation Arrangements: Ambulance Needs Prior to Discharge: Needs Prior to Discharge: To Be Determined, Accepting Facility, Discharge Prescriptions, Facility or Agency Choices, Insurance Authorization, Discharge Transportation Post-Acute Discharge Plan: Spoke with patient at bedside regarding SNF recommendations from therapy. Pt would like a referral sent to the [facility]. Tasked referral. Pt will need auth, 7000, and transport. CM to follow clinical progress. Addendum 1605: [facility] is able to accept, this is foc, tasked auth SIGNATURE: Carey De La Rosa RN PATIENT NAME: Alfonzo Simon DATE: September 26, 2024 TIME: 11:24 AM PAGER/CONTACT #: [phone] [facility] 09-26-2024 Note HNO ID: [id number] Author: BRISA CHOUDHARY DO Service: Hospital Medicine Author Type: Physician Type: Progress Notes Filed: 09/26/2024 13:15 Note Text: DEPARTMENT OF HOSPITAL MEDICINE PROGRESS NOTE SERVICE DATE: 09/26/2024 SERVICE TIME: 10:45 AM Hospital Medicine/Primary Attending: Brisa Choudhary DO NIGHT AND WEEKEND COVERAGE: [place] COVERAGE: From 7am - 7pm, please call [phone] After 7pm, please call cross cover pager #[phone] Subjective INTERVAL HPI: Pt seen and examined. EPIC reviewed. Doing well. No cp or sob. Discussed PT recs and SNF at [facility]. No blood in stool or black stools. Tele: SR 95 MEDICATIONS: Reviewed Objective PHYSICAL EXAM: BP 156/77 Pulse 63 Temp (Src) 97.8 (Axillary) Resp 19 Ht 6' 0" (1.83m) Wt 288 lb (130.6kg) SpO2 95% BMI 39.05 kg/(m2). O2 Therapy: Nasal Cannula, Liters: 2.0 Physical Exam Performed GENERAL: Alert, no distress, cooperative, Obese HEAD/SINUSES: No significant findings EYES: PERRLA, EOMI OROPHARYNX: Lips, mucosa, and tongue normal. Teeth and gums normal. Oropharynx normal. LUNGS: Lungs clear to auscultation, Good diaphragmatic excursion CARDIAC: Normal S1 and S2; no rubs, murmurs, or gallops ABDOMEN: Abdomen soft, non-tender, BS normal, No masses or organomegaly EXTREMITIES: L leg edema NEURO: Grossly normal cognition, motor function, and cranial nerves III-XII Lines, Drains, and Airways Line Duration Peripheral 09/23/242125 Right Antecubital 20 Gauge 2 days Peripheral 09/24/24 0242 Left Forearm 20 Gauge 2 days Reviewed lines and needs to be continued: REASONS: Telemetry DATA: Diagnostic tests reviewed for today's visit: Most recent labs and imaging results. Assessment/Plan 64 year old male with history of Atrial flutter, Ground level fall with Right subdural hematoma, Right frontal subarachnoid hemorrhage s/p right craniotomy evacuation with postop course complicated by acute ischemic stroke with bilateral cortical infarcts with residual left arm and bilateral lower extremity weakness, presented with shortness of breath and swollen leg. CT chest showed a subsegmental pulmonary emboli bilaterally. He was started on heparin and seen by PERT. No intervention was recommended. Ultrasound of leg showed DVT. Echocardiogram was suboptimal but showed preserved ejection fraction. He was seen by therapy and halfway facility was recommended he was seen by neurology who agreed with short term anticoagulation in setting of possible cerebral amyloid angiopathy. Bilat PE, provoked: seen by PERT and no need for thrombectomy at this time. Cont with heparin gtt and monitoring. Tele. Echo EF 54%, suboptimal data. Acute LE DVT: cont with heparin. Plan to convert to oral anticoagulation. Acute hypoxic respiratory failure: wean oxygen as able. Home oxygen eval a dc. Lactic acidosis: due to #1. Trend. Elevated troponin due to demand ischemia from #1: echo as above. Trend to plateau. 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 Appreciate neuro input regarding anticoag. 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 This would be short term anticoag at this time. 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 Would need short term anticoagulation for that. HTN: norvasc 10 mg daily, lisinopril 40 mg daily. Trend BP and adjust meds as needed. Medication and Non-Pharmacologic VTE Prophylaxis/Anticoagulants Anticoagulant AND Antiplatelet Medications (From admission, onward) Start Dose Route Frequency Last Action Ordered Stop 09/24/24 0230 heparin iv infusion 25,000 units in NaCl 0.45% 250 mL STANDARD NOMOGRAM (Heparin Infusion + Bolus for Subtherapeutic PTTAC) 0-30 mL/hr Placed in "And" Linked Group 0-3,000 Units/hr INTRAVENOUS CONTINUOUS Rate/Dose Calculated - Heparin, 09/26 0653 09/24/24 0217 -- 09/24/24 0707 vte current anticoag therapy ([place] 09/24/24 0707 activity - mobilize patient ([place]) VTE Prophylaxis: VTE prophylaxis appropriate Disposition: To be determined Plan of care discussed with: Provider, RN, Patient SIGNATURE: Brisa Choudhary DO PATIENT NAME: Alfonzo Simon DATE: September 26, 2024 TIME: 10:45 AM etx [id number] [facility] 09-26-2024 Note HNO ID: [id number] Author: LI HASTINGS RN Service: Care Management Author Type: Registered Nurse Type: Care Mgt Initial Assessment Filed: 09/26/2024 09:11 Note Text: CARE MANAGEMENT: ASSESSMENT AND DISCHARGE PLAN SERVICE DATE: September 26, 2024 SERVICE TIME: 9:06 AM PCP: Karthik Holliday APRN.CNP Primary Contact: Extended Emergency Contact Information Primary Emergency Contact: Alfonzo Salas Address: [address] [place], [place] [id number] [facility] Mobile Relation: Spouse Admission Status: Inpatient Insurance Provider: [employer] MEDICARE PPO Discharge Planning requested by: Per Department Practice Potential Transition Plans To Be Determined Advance Directives Current Advance Directive: None Beef Grader Attempted to Assist with AD Completion: Yes Action: Patient Unwilling Current Living Arrangements and Support Lives with: Spouse/significant other Type of Residence: Private Residence (House) Does the patient have to climb stairs at home?: Yes Support: Spouse/significant other How do you manage to accomplish the following: Independent: Ambulation;Bathe/Shower;Dress;Medi cation Management Needs Assistance: Meals/Meal Prep;Transportation to appointments/community Current Services/Equipment Current Post-Acute Service(s): DME Current DME Type: Bedside commode, Walker, Wheelchair-manual Discharge Planning Patient Goal(s): General wellness [place] Explained: [place] Given: No Reason Not Given: Unable to complete with this assessment - revisit Are you interested in bedside delivery of your medications? No Discharge Planning Participant(s): Patient Patient/Family Comments: Caregiver Assessment: Caregiver is ready, willing and able to meet the patient's needs as recommended by the inter-professional team: No Caregiver needed Transport at Discharge: Transportation Arrangements: To Be Determined Needs Prior to Discharge: Needs Prior to Discharge: To Be Determined;OT/PT Evaluation Post-Acute Discharge Plan: Functional:Needs minimal assistance with ADLs, lives on main floor of house Transportation: pt's spouse able to provide transportation if appropriate Equipment Prior to Admission:wheelchair, BSC, walker Support: pt'shusband able to assist, works 3 days a week Pharmacy:[facility] PCP: Karthik Holliday (has seen within the last week) Spoke with pt for the above initial assessment , pt from home with , here for PE , currently on O2, does not wear O2 at home , CM will continue to follow for any skilled needs SIGNATURE: Li Hastings RN PATIENT NAME: Alfonzo Simon DATE: September 26, 2024 TIME: 9:06 AM CONTACT #: [id number] [facility] 09-25-2024 Note HNO ID: [id number] Author: BRISA CHOUDHARY DO Service: Hospital Medicine Author Type: Physician Type: Progress Notes Filed: 09/25/2024 13:02 Note Text: DEPARTMENT OF HOSPITAL MEDICINE PROGRESS NOTE SERVICE DATE: 09/25/2024 SERVICE TIME: 9:40 AM Hospital Medicine/Primary Attending: Brisa Choudhary DO NIGHT AND WEEKEND COVERAGE: [place] COVERAGE: From 7am - 7pm, please call [phone] After 7pm, please call cross cover pager #[phone] Subjective INTERVAL HPI: Pt seen and examined. EPIC reviewed. No cp or sob. No leg pain. Hoping to get up with therapy. Tired of being in bed. Tele: off, SB 40s while asleep MEDICATIONS: Reviewed Objective PHYSICAL EXAM: BP 129/76 Pulse 54 Temp (Src) 97.1 (Oral) Resp 19 Ht 6' 0" (1.83m) Wt 288 lb (130.6kg) SpO2 98% BMI 39.05 kg/(m2). O2 Therapy: Nasal Cannula, Liters: 2 Physical Exam Performed GENERAL: Alert, no distress, cooperative, Morbidly Obese HEAD/SINUSES: No significant findings EYES: PERRLA, EOMI OROPHARYNX: Lips, mucosa, and tongue normal. Teeth and gums normal. Oropharynx normal. LUNGS: Lungs clear to auscultation, Good diaphragmatic excursion CARDIAC: Normal S1 and S2; no rubs, murmurs, or gallops ABDOMEN: soft nt nd +BS EXTREMITIES: +edema NEURO: Grossly normal cognition, motor function, and cranial nerves III-XII Lines, Drains, and Airways Line Duration Peripheral 09/23/242125 Right Antecubital 20 Gauge 1 day Peripheral 09/24/24 0242 Left Forearm 20 Gauge 1 day Reviewed lines and needs to be continued: REASONS: Telemetry DATA: Diagnostic tests reviewed for today's visit: Most recent labs and imaging results. Assessment/Plan Bilat PE, provoked: seen by PERT and no need for thrombectomy at this time. Cont with heparin gtt and monitoring. Tele. Echo. Acute LE DVT: cont with heparin. Plan to convert to oral anticoagulation. Acute hypoxic respiratory failure: wean oxygen as able. Home oxygen eval a dc. Lactic acidosis: due to #1. Trend. Elevated troponin due to demand ischemia from #1: check echo. Trend to plateau. 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 Appreciate neuro input regarding anticoag. 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 This would be short term anticoag at this time. 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 Would need short term anticoagulation for that. HTN: norvasc 10 mg daily, lisinopril 40 mg daily. Trend BP and adjust meds as needed. Medication and Non-Pharmacologic VTE Prophylaxis/Anticoagulants Anticoagulant AND Antiplatelet Medications (From admission, onward) Start Dose Route Frequency Last Action Ordered Stop 09/24/24 0230 heparin iv infusion 25,000 units in NaCl 0.45% 250 mL STANDARD NOMOGRAM (Heparin Infusion + Bolus for Subtherapeutic PTTAC) 0-30 mL/hr Placed in "And" Linked Group 0-3,000 Units/hr INTRAVENOUS CONTINUOUS Rate Verify, 09/25 0542 09/24/24 0217 -- 09/24/24 0707 vte current anticoag therapy ([place] 09/24/24 0707 activity - mobilize patient ([place] VTE Prophylaxis: VTE prophylaxis appropriate Disposition: To be determined Plan of care discussed with: Provider, RN, Patient SIGNATURE: Brisa Choudhary DO PATIENT NAME: Alfonzo Simon DATE: September 25, 2024 TIME: 9:40 AM etx [id number] [facility] 09-24-2024 Note HNO ID: [id number] Author: BRISA CHOUDHARY DO Service: Hospital Medicine Author Type: Physician Type: Progress Notes Filed: 09/24/2024 16:11 Note Text: DEPARTMENT OF HOSPITAL MEDICINE PROGRESS NOTE SERVICE DATE: 09/24/2024 SERVICE TIME: 12:30 PM Hospital Medicine/Primary Attending: Brisa Choudhary, NIGHT AND WEEKEND COVERAGE: [place] COVERAGE: From 7am - 7pm, please call [phone] After 7pm, please call cross cover pager #[phone] Subjective INTERVAL HPI: Pt seen and examined. EPIC reviewed. Admitted by my colleague earlier this morning for acute PE, hypoxia and DVT. He was started on a heparin drip. Seen by PERT team. He is doing ok. No cp or sob. Discussed concerns with blood thinners and neuro consult. MEDICATIONS: Reviewed Objective PHYSICAL EXAM: BP 135/85 Pulse 61 Temp (Src) 99.3 (Oral) Resp 18 Ht 6' 0" (1.83m) Wt 288 lb (130.6kg) SpO2 97% BMI 39.05 kg/(m2). O2 Therapy: Nasal Cannula, Liters: 2L Physical Exam Performed GENERAL: Alert, no distress, cooperative, Obese HEAD/SINUSES: No significant findings EYES: PERRLA, EOMI OROPHARYNX: Lips, mucosa, and tongue normal. Teeth and gums normal. Oropharynx normal. LUNGS: Lungs clear to auscultation, Good diaphragmatic excursion CARDIAC: Normal S1 and S2; no rubs, murmurs, or gallops ABDOMEN: Abdomen soft, non-tender, BS normal, No masses or organomegaly EXTREMITIES: Extremities normal, no deformities, edema, clubbing or skin discoloration. Good capillary refill. NEURO: Grossly normal cognition, motor function, and cranial nerves III-XII Lines, Drains, and Airways Line Duration Peripheral 09/23/24 2126 Right Antecubital 20 Gauge <1 day Peripheral 09/24/24 0242 Left Forearm 20 Gauge <1 day Drain Duration Indwelling Urinary Catheter 09/23/24 2134 <1 day Reviewed lines and needs to be continued: REASONS: Difficulty in obtaining/maintaining access and Telemetry DATA: Diagnostic tests reviewed for today's visit: Most recent labs and imaging results. Assessment/Plan Bilat PE, provoked: seen by PERT and no need for thrombectomy at this time. Cont with heparin gtt and monitoring. Tele. Echo. Acute LE DVT: cont with heparin. Plan to convert to oral anticoagulation. Acute hypoxic respiratory failure: wean oxygen as able. Home oxygen eval a dc. Lactic acidosis: due to #1. Trend. Elevated troponin due to demand ischemia from #1: check echo. Trend to plateau. 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 Will consult for opinion on anticoagulation. They were against longterm anticoagulation at last office visit. This would be short term anticoag at this time. 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 Would need short term anticoagulation for that. HTN: norvasc 10 mg daily, lisinopril 40 mg daily. Trend BP and adjust meds as needed. Parkinson's disease: Obesity Class II (BMI 35-39.9) Medication and Non-Pharmacologic VTE Prophylaxis/Anticoagulants Anticoagulant AND Antiplatelet Medications (From admission, onward) Start Dose Route Frequency Last Action Ordered Stop 09/24/24 023 heparin iv infusion 25,000 units in NaCl 0.45% 250 mL STANDARD NOMOGRAM (Heparin Infusion + Bolus for Subtherapeutic PTTAC) 0-30 mL/hr Placed in "And" Linked Group 0-3,000 Units/hr INTRAVENOUS CONTINUOUS New Bag/Syringe/Bottle, 09/24 23909/24/24 0217 -- VTE Prophylaxis: VTE prophylaxis appropriate Disposition: To be determined Plan of care discussed with: Provider, RN, Patient SIGNATURE: Brisa Choudhary DO PATIENT NAME: Alfonzo Simon DATE: September 24, 2024 TIME: 12:30 PM etx [id number] [facility] 09-24-2024 Note HNO ID: [id number] Author: ROSEANNA STEPHENS MD Service: Critical Care Author Type: Physician Type: Plan of Care Filed: 09/24/2024 04:22 Note Text: Full note to follow. Responded to PERT Call, CT chest reviewed, no saddle PE, patient has history of craniotomy few months ago, repeat CT brain reviewed. Okay to proceed with anticoagulation, discussed with patient and partner at the bedside about risk versus benefits. Patient has bilateral lower extremity swelling, ultrasound DVT ordered. Patient is on 2 L nasal cannula, hemodynamically stable, not in distress, can be admitted to medical floor with telemetry. If for any reason unable to tolerate anticoagulation and has DVT will need IVC filter. Plan is to continue heparin drip as per protocol, ultrasound DVT, echocardiogram. No indication for thrombectomy or intervention at the moment. If any change in hemodynamics or clinical condition please notify ICU. Discussed with ER team. Roseanna Stephens MD This note was partially generated using [employer] voice recognition system. All attempts were made to correct phonetical errors, but some may still be present. [facility] 09-23-2024 Note SARS-COV-2 (AGENT OF COVID-19) RNA: Not detected INFLUENZA A RNA: Not detected INFLUENZA B RNA: Not detected RESPIRATORY SYNCYTIAL VIRUS (RSV) RNA: Not detected [facility] Comment on above: Performed By: #### 9 [id number] ####[facility] LABORATORYCLIA [id number] [address] STATES OF [facility] 09-21-2024 Telephone encounter Note Reason for Call: High Blood Pressure Outcome: 24 HR Recommendation. Interim Care Advice given. Confer patient to the [facility] for scheduling. Reason for Disposition Systolic BP [...] menstrual period?" Protocols used: Blood Pressure - [id number] [facility] 09-21-2024 Miscellaneous Notes Reason for Call: High Blood Pressure Outcome: 24 HR Recommendation. Interim Care Advice given. Confer patient to the [facility] for scheduling. Reason for Disposition Systolic BP [...] menstrual period?" Protocols used: Blood Pressure - [id number] documented in this encounter [facility] 09-20-2024 Telephone encounter Note Noted [facility] 09-20-2024 Miscellaneous Notes Noted Is scheduled to have some home PT/OT, if falls continue he will need to be admitted to SNF for more assistance and PT. Karthik Holliday APRN.CNP September 20, 2024 3:39 PM Paula BARRETT from [facility] called in and left message. States Mejía has reported to falls since his return home and had to call 911 to assist him up. She had documented, no bruising, no pain and no injuries noted. FYI documented in this encounter [facility] 09-20-2024 Telephone encounter Note Is scheduled to have some home PT/OT, if falls continue he will need to be admitted to SNF for more assistance and PT. Karthik Holliday APRN.CNP September 20, 2024 3:39 PM [facility] 09-20-2024 Telephone encounter Note Paula BARRETT from [facility] called in and left message. States Mejía has reported to falls since his return home and had to call 911 to assist him up. She had documented, no bruising, no pain and no injuries noted. FYI [facility] 09-18-2024 Note HNO ID: [id number] Author: KARTHIK HOLLIDAY APRN.RN ELIGIBILITY Service: ? Author Type: Nurse Practitioner Type: Progress Notes Filed: 09/18/2024 13:49 Note Text: Transitional Care Management TCM Eligibility Documentation Program: Transitional Care Management Status: Enrolled Effective Dates: 09/11/2024 - present Responsible Staff: Dayan Mina RN Discharge date: 09/08/2024 (Program start) Date of initial contact: 09/11/2024 Initial contact Target status: Successful; Contact made within 2 business days post-discharge Summary Discharged from: [facility] Admit Date: 04/15/2024, 06/04/2024 Admitted for: Subdural hematoma and failure to thrive. Karthik Holliday APRN.RN ELIGIBILITY Provider Documentation Alfonzo Simon is a 64 [...] and benefit of weight loss. BMI 39.06 kg/(m2) - LIPID PANEL BASIC - HEMOGLOBIN A1C [...] Weight decreasing - Behavioral intervention Karthik Holliday APRN.RN ELIGIBILITY September 18, 2024 12:51 PM [facility] 09-18-2024 History of Present illness Narrative Transitional Care Management TCM Eligibility Documentation Program: Transitional Care Management Status: Enrolled Effective Dates: 09/11/2024 - present Responsible Staff: Dayan Mina RN Discharge date: 09/08/2024 (Program start) Date of initial contact: 09/11/2024 Initial contact Target status: Successful; Contact made within 2 business days post-discharge Summary Discharged from: [facility] Admit Date: 04/15/2024, 06/04/2024 Admitted for: Subdural hematoma and failure to thrive. Karthik Holliday APRN.RN ELIGIBILITY Provider Documentation Alfonzo Simon is a 64 [...] 2024 12:51 PM documented in this encounter [facility] 09-11-2024 Note HNO ID: [id number] Author: DAYAN MINA RN Service: ? Author Type: Registered Nurse Type: Progress Notes Filed: 09/11/2024 16:13 Note Text: TRANSITIONAL CARE MANAGEMENT (TCM) COMMUNITY MONITORING PROGRAM - [place] Provider Action/FYI: TCM rehab follow up 09/18/24 with Karthik Holliday CNP SUMMARY: Pt discharged from [facility] on 09/08/24. Admitted for: Failure to Thrive Patient seen Inpatient DEBBI Visit? No. Patient seen ICARE Program? No. Contact made with patient: Yes Hi my name is Dayan Mina RN and I am calling from the [facility] on behalf of your PCP, Karthik Holliday APRN.CNP I understand you were recently in the hospital so I am calling to check in with you to ensure you are feeling well now that you?re home. Do you mind if I ask [...] like to speak with a social work steam engineer to help give you support for any [...] Avoid public places as much as possible. Av (more content not included)... [facility] 09-11-2024 History of Present illness Narrative TRANSITIONAL CARE MANAGEMENT [facility]TCM[facility] Provider Action/FYI: TCM rehab follow up 09/18/24 with Karthik Holliday CNP SUMMARY: Pt discharged from [facility] on 09/08/24. Admitted for: Failure to Thrive Patient seen Inpatient DEBBI Visit? No. Patient seen ICARE Program? No. Contact made with patient: Yes Hi my name is Dayan Mina RN and I am calling from the [facility] on behalf of your PCP, Karthik Holliday APRN.RN ELIGIBILITY I understand you were recently in the [...] like to speak with a social work steam engineer to help give you support for any [...] telephone visit with your PCP. ACTION TAKEN: [facility] Primary Care Provider Visit Scheduled: Yes - [...] (or call on the way if possible). Dayan Mina RN documented in this encounter [facility] 09-11-2024 History of Present illness Narrative Discharged from [facility] on 09/08/2024 to home. PCC notified. Madina Amador RN September 11, 2024 documented in this encounter [facility] 09-11-2024 Note HNO ID: [id number] Author: MADINA AMADOR RN Service: ? Author Type: Registered Nurse Type: Progress Notes Filed: 09/11/2024 07:39 Note Text: Discharged from [facility] on 09/08/2024 to home. PCC notified. Madina Amador RN September 11, 2024 [facility] 09-11-2024 Note Patient Outreach (AG ACM) ALFONZO SIMNO ([id number]) 1960 M Date Time Provider Department 09/11/24 DAYAN MINA [facility] During your visit today, we recorded the following information about you: Dayan Mina RN 09/11/2024 4:13 PM Signed TRANSITIONAL CARE MANAGEMENT (TCM) COMMUNITY MONITORING PROGRAM [facility] Provider Action/FYI: TCM rehab follow up 09/18/24 with Karthik Holliday CNP SUMMARY: Pt discharged from [facility] on 09/08/24. Admitted for: Failure to Thrive Patient seen Inpatient DEBBI Visit? No. Patient seen ICARE Program? No. Contact made with patient: Yes Hi my name is Dayan Mina RN and I am calling from the [facility] on behalf of your PCP, Karthik Holliday APRN.RN ELIGIBILITY I understand you were recently in the hospital so I am calling to check in with you to ensure you are feeling well now that you?re home. Do you mind if I ask [...] like to speak with a social work steam engineer to help give you support for any [...] telephone visit with your PCP. ACTION TAKEN: [facility] Primary Care Provider Visit Scheduled: Yes - Appt date: 09/18/24 with (more content not included)... [facility] 09-11-2024 Note Patient Outreach (AG ACM) ALFONZO SIMON ([id number]) 1960 M Date Time Provider Department 09/11/24 MADINA AMADOR [facility] During your visit today, we recorded the following information about you: Madina Amador RN 09/11/2024 7:39 AM Signed Discharged from [facility] on 09/08/2024 to home. PCC notified. Madina Amador RN September 11, 2024 Allergies As of Date: 09/11/2024 (No Known Allergies) Date Reviewed: 06/20/2024 Reviewed by: Leonard Patel MD - Fully Assessed Reason for Visit: 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 Care [4074] Cmt: Discharged from [facility] to home Prescriptions as of 09/11/2024 - tamsulosin (FLOMAX) 0.4 mg TAKE 1 [...] once daily. Problem List As Of Date 09/11/2024 Noted Resolved Essential hypertension [I10] 05/25/2016 Benign [...] (cerebrovascular accident) [Z86.73] 06/07/2024 Encounter Status:Closed by MADINA AMADOR on 09/11/24 [facility] 07-05-2024 Telephone encounter Note Last OV on 01/31 next OV on 08/04 med pend [facility] 07-05-2024 Miscellaneous Notes Last OV on 01/31 next OV on 08/04 med pend documented in this encounter [facility] 06-20-2024 History of Present illness Narrative NEUROSURGERY POST OP NOTE Dr. Leonard Patel MD, FACS Date of visit: June 20, 2024 Patient Name: Mr.Kevin Myrna Simon Date of : 1960 Current Age: [age] year old MRN/E# [id number] Last Office Visit: 05/23/2024 SURGERY: Right frontal craniotomy for evacuation of SDH and excision of tumor on 04/16/[address] Patel. FINAL DIAGNOSIS A. Brain tumor, excision: - [...] apnea who was seen for consult at [facility] on 04/16/24 after transfer from [place] ED for a SAH. Per patients , [...] to do well. He was residing in [place] [facility] and participating in PT/OT/ST. He was moving [...] meningioma has been graded as 1. Leonard Patel MD FOLLOW UP: Return in about 4 months (around 10/20/2024) for routine visit. Please Note: This note has been partially generated using FiFully, a speech recognition software program, and may contain errors including punctuation, grammar, spelling, gender, and inappropriate words or phrases that pertain to the system. documented in this encounter [facility] 06-08-2024 Note HNO ID: [id number] Author: ?, ?, ? Service: ? Author [...] No - Does not meet PIRC Criteria [facility] 06-08-2024 History of Present illness Narrative Per PIRC Eligibility report patient meets PIRC criteria: delirium and ICU stay >=72 hours, but found through chart review was never under the care of or seen by [place] pulmonary/critical care staff in the Surgical ICU during the 04[place]15- [place] admission. Not enrolled in the PIRC Program. PIRC Enrollment Status PIRC Call Attempt None Enrolled in PIRC Program? No - Does not meet PIRC Criteria documented in this encounter [facility] 06-08-2024 History of Present illness Narrative TRANSITION CARE MANAGEMENT (TCM) DISCHARGE TO POST ACUTE FACILITY POST ACUTE TRANSFER SUMMARY: -Pt discharged from [facility] on 06/07/2024. -Post Acute Facility Admitted to [facility] -Admitted for: Failure to Thrive Office PCC will follow at discharge. Madina Amador RN June 08, 2024 documented in this encounter [facility] 06-08-2024 Note Patient Outreach (PU LMMN) ALFONZO SIMON ([id number]) 1960 M Date Time Provider Department 06/08/24 MANUEL MANCIA During your visit today, we recorded the following information about you: Manuel Mancia 06/08/2024 11:45 AM Signed Per PIRC Eligibility report patient meets PIRC criteria: delirium and ICU stay >=72 hours, but found through chart review was never under the care of or seen by [facility] pulmonary/critical care staff in the Surgical ICU [...] (cerebrovascular accident) [Z86.73] 06/07/2024 Encounter Status:Closed by MANUEL MANCIA on 06/08/24 [facility] 05-30-2024 Instructions Anya Huang APRN.CHAN - 05/30/2024 10:14 AM EDT Images from the original note were not included. Regarding your visit with Nurse Practitioner Anya Huang today at the [facility] we discussed the following: Impression: Bilateral cortical infarcts. 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 Cha. Anticoagulation is likely high risk with this [...] have any questions Anya Huang CNP [facility] [place] Nurse Practitioner [place], [place] [address] Office: [phone] Appointments: [phone] Stroke Signs and Symptoms: *Stroke is a [...] eating plan - more information: https://www.heart.org/en/healthy-l iving/healthy-eating/eat-smart/nut rition-basics/qrb-ygks-tyn-lifesty le-recommendations Smoking and Tobacco Use (including e-cigarettes) [...] regimen, may be considered Adopted from the [place] [employer] Attack : A Guideline for Healthcare Professionals From the [place] [employer] Guidelines for the Prevention of Stroke in Patients With Stroke or Transient Ischemic - 2014 documented in this encounter [facility] 05-30-2024 History of Present illness Narrative CEREBROVASCULAR CENTER Established Visit Consultation is requested by: No referring provider defined for this encounter. PCP: Karthik Holliday [address] [place] [address] CEREBROVASCULAR HISTORY Alfonzo Simon is a 64 year old left-handed male presenting for hospital discharge follow up. Admitted to [facility] 04/15-04/25/24. From discharge summary Mr. Alfonzo Simon was directly admitted to [facility] on 04/15/2024 for treatment of injuries [...] be a meningioma on 04/16/[address] Patel. On the day of his surgery, he [...] outpatient follow-up with his treating neurosurgery (Dr. Patel) two weeks post-operatively for re-evaluation and craniotomy [...] discharge. Mr. Simon would be discharged to [facility] rehab in stable condition on 04/25/2024. He [...] new symptoms or clinical events -living at [facility] -prior to this lived at home with [...] morbid, BMI 40.0-49.9 (HCC) No date: Parkinsonism ([facility]) No date: Sleep apnea Comment: no machine No date: Subdural hematoma ([facility]) 05/25/2016: Systolic murmur 05/25/2016: Vitamin D deficiency PAST SURGICAL HISTORY 10/22/2020: COLONOSCOPY GEN ANES Comment: Dr. Farida modi3 last one in 03/2021: CYSTOSCOPY Comment: Bladder [...] LUE drift. Sensation: Intact light touch Coordination: Mycpgo-uc-hntr without dysmetria on right Gait: deferred LABS [...] - LDL [address] Cha. Have also been in contact with Neurosurgery and Cardiology. 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 Recommend repeat MRI brain to evaluate for interval change. Likely need to consider left atrial appendage closure for atrial fibrillation rather than longterm anticoagulation Continue Aspirin daily for secondary stroke [...] which included preparing to see the patient, [id number] patient care, completing clinical documentation, obtaining and/or reviewing separately obtained history, performing a medically appropriate examination, counseling and educating the patient/family/caregiver, ordering medications, tests, or procedures, communicating with other HCPs (not separately reported), independently interpreting results (not separately reported), communicating results to the patient/family/caregiver, and care coordination (not separately reported) SIGNATURE Anya Huang APRN.CHAN CC No referring provider defined for this encounter. Karthik Holliday [facility] [place] [address] documented in this encounter [facility] 05-23-2024 History of Present illness Narrative NEUROSURGERY POST OP NOTE Dr. Leonard Patel MD, FACS Date of visit: May 23, 2024 Patient Name: Mr.Kevin Myrna Simon Date of : 1960 Current Age: [age] year old MRN/E# [id number] Last Office Visit: 05/09/2024 SURGERY: Right frontal craniotomy for evacuation of SDH and excision of tumor on 04/16/[address] Patel. FINAL DIAGNOSIS A. Brain tumor, excision: - [...] apnea who was seen for consult at [facility] on 04/16/24 after transfer from [place] ED for a SAH. Per patients , [...] overall doing well. He is currently in [place] [facility] and participating in PT/OT/ST. He is moving [...] Laterality Date COLONOSCOPY GEN ANES 10/22/2020 Dr. 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 - CT BRAIN WO IVCON 2. Intracranial meningioma (HCC) - ICD9: 225.2, ICD10: D32.0 The meningioma that was excised in its entirety was a grade 1 benign meningioma. - CT BRAIN WO IVCON Leonard Patel MD FOLLOW UP: Return in about 4 weeks (around 06/20/2024) for review of imaging and plan of care. Please Note: This note has been partially generated using FiFully, a speech recognition software program, and may contain errors including punctuation, grammar, spelling, gender, and inappropriate words or phrases that pertain to the system. documented in this encounter [facility] 05-22-2024 History of Present illness Narrative TRANSITION CARE MANAGEMENT (TCM) DISCHARGE TO POST ACUTE FACILITY POST ACUTE TRANSFER SUMMARY: -Pt discharged from [facility] Rehab on 05/19/2024. -Post Acute Facility Admitted to [facility] -Admitted for: [facility] Office PCC will follow at discharge. Madina Amador RN May 22, 2024 documented in this encounter [facility] 05-22-2024 History of Present illness Narrative ESTABLISHED [...] Color (no units) Date Value 04/16/2024 Light [place] 09/16/2019 YELLOW Clarity (no units) Date Value 04/16/2024 Turbid Glucose, Urine Date Value 04/16/2024 Negative 09/16/2019 NEGATIVE mg/dL Bilirubin, Urine (no units) Date Value 04/16/2024 Negative 09/16/2019 NEGATIVE Ketones, Urine Date Value 04/16/2024 Negative 09/16/2019 NEGATIVE mg/dL Specific [place], Ur (no units) Date Value 04/16/2024 1.028 [...] with Dr. Mccall for yearly Suellen Conley APRN.RN ELIGIBILITY documented in this encounter [facility] 05-17-2024 Telephone encounter Note PT doesn't have catheter per Nurse from [facility] - [facility] needed a void trial. Added to Suellen's schedule for void trial. Thanks [facility] 05-17-2024 Miscellaneous Notes PT doesn't have catheter per Nurse from [facility] needed a void trial. Added to Suellen's schedule for void trial. Thanks Received call from [facility] with [facility], patient needs an appointment to have hermosillo catheter removed. Catheter was placed when patient was at [facility]. ARMEN 10/21/[address] Mccall. Informed her that will transfer to scheduling. Patient would need an appointment in morning with CYNTHIA LARSEN and then nurse later in afternoon for PVR. Warm transfer to scheduling. Phyllis Floyd, RN documented in this encounter [facility] 05-17-2024 Telephone encounter Note I returned [facility] [phone] requesting to change patient appt due to old appt was on patients discharge date, I left a detailed vm with patients rescheduled appt day and time [facility] 05-17-2024 Miscellaneous Notes I returned [facility] [phone] requesting to change patient appt due to old appt was on patients discharge date, I left a detailed vm with patients rescheduled appt day and time documented in this encounter [facility] 05-17-2024 Telephone encounter Note Received call from Janie with [facility], patient needs an appointment to have hermosillo catheter removed. Catheter was placed when patient was at [facility]. ARMEN 10/21/[address] Mccall. Informed her that will transfer to scheduling. Patient would need an appointment in morning with CYNTHIA LARSEN and then nurse later in afternoon for PVR. Warm transfer to scheduling. Phyllis Floyd RN [facility] Work Phone: 05-09-2024 History of Present illness Narrative NEUROSURGERY POST OP NOTE Dr. Leonard Patel MD, FACS Date of visit: May 09, 2024 Patient Name: Mr.Kevin Myrna Simon Date of : 1960 Current Age: [age] year old MRN/E# [id number] Last Office Visit: Post op SURGERY: Right frontal craniotomy for evacuation of SDH and excision of tumor on 04/16/[address] Patel. FINAL DIAGNOSIS A. Brain tumor, excision: - [...] apnea who was seen for consult at [facility] on 04/16/24 after transfer from [facility] for a SAH. Per patients , the patient had fallen the evening before and was unable to get up. EMS assisted with lift and patient went to bed at home. The following day he was noted to be confused with difficulty work finding and what sounds like expressive aphasia. 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 - CT BRAIN WO BIPIN 2. Intracranial meningioma (HCC) - ICD9: 225.2, ICD10: D32.0 Excised grade 1 convexity meningioma right - CT BRAIN WO BIPIN Patel MD FOLLOW UP: Return in about 10 days (around 05/19/2024) for review of imaging and plan of care. Please Note: This note has been partially generated using FiFully, a speech recognition software program, and may contain errors including punctuation, grammar, spelling, gender, and inappropriate words or phrases that pertain to the system. documented in this encounter [facility] 05-08-2024 History of Present illness Narrative Images from the original note were not included. [facility] [place] Erica Salinas Department of Cardiovascular Medicine SECTION OF CLINICAL CARDIOLOGY OUTPATIENT VISIT DATE May 08, 2024 OUTPATIENT VISIT TYPE CONSULTATION PRIMARY CARE PHYSICIAN: Karthik Holliday [address] [place] [address] REFERRING PHYSICIAN Anya Huang [address] [facility] [address] [facility] [address] CHIEF COMPLAINT: Atrial flutter HISTORY OF PRESENT ILLNESS: Mr. Simon is a 64 year old male who is seen today for newly diagnosed paroxysmal atrial flutter. Patient was recently admitted to [facility] due to fall leading to a subdural hematoma from 04/15 - 04/25. During this hospital admission, imaging revealed a meningioma which was removed via craniotomy by Dr. Patel. During this admission, patient developed proximal LUE [...] NO PREVIOUS ECGS AVAILABLE Confirmed by MD NIELSON VINAY ([id number]) on 04/19/2024 10:24:[address] Result [...] Follow-up should be performed as clinically indicated. Acid Operator: CRYS Transcribe Date/Time: Apr 15 2024 7:24P [...] old male who was recently admitted at [facility] for fall causing subdural hemorrhage with additional [...] recent subdural hemorrhage, we discussed with Dr. Patel and he is going to arrange follow up tomorrow for final recommendations. They said that Watchman may possibly be the preferred route. PLAN AND RECOMMENDATIONS: -Will await follow up plan from Neurosurgery regarding AC Eliquis vs Watchman -Discussed with patient both routes of treatment. Notes and plan are not complete until officially staffed and signed by the attending, Dr. Wolf. Jake Ontiveros, DO Internal Medicine, PGY-II [facility] 05/08/2024 [facility] [place] STAFF PHYSICIAN NOTE OF PERSONAL INVOLVEMENT IN [...] Paroxysmal atrial fibrillation/flutter. Currently in sinus rhythm. [id number] score of 4. Ideally needs to be [...] Department of Cardiovascular Medicine [facility] [place] [facility] [address] [address] Office - [phone] extension [phone] Office Appointments: [phone] extension [phone] documented in this encounter [facility] 05-05-2024 Telephone encounter Note Spoke to the patient's spouse, Alfonzo. The office contacted him to schedule a follow-up visit with Alfonzo (the patient) once released from rehab. The spouse reported that the surgical pathology report was released to [facility] and he was wondering if somebody could explain the diagnosis. I spoke with him on the phone and discussed that the tumor removed was a meningioma which is a noncancerous tumor and that Dr. Patel will discuss more of this at the patient's follow-up visit. He was pleased with our discussion and all of his questions and concerns were addressed in detail. ARACELIS Boucher Neurosurgery Nurse Practitioner [facility] 3:35 PM 05/05/2024 [facility] Work Phone: 05-05-2024 Miscellaneous Notes Spoke to the patient's spouse, Alfonzo. The office contacted him to schedule a follow-up visit with Alfonzo (the patient) once released from rehab. The spouse reported that the surgical pathology report was released to [facility] and he was wondering if somebody could explain the diagnosis. I spoke with him on the phone and discussed that the tumor removed was a meningioma which is a noncancerous tumor and that Dr. Patel will discuss more of this at the patient's follow-up visit. He was pleased with our discussion and all of his questions and concerns were addressed in detail. ARACELIS Boucher Neurosurgery Nurse Practitioner [facility] 3:35 PM 05/05/2024 documented in this encounter [facility] 05-05-2024 Telephone encounter Note Contacted [facility] and spoke to patients nurseKenia. She reports that Mr. Simon is doing [...] receiving subcutaneous Heparin TID. Discussed that Dr. Patel would like to see him in the office for a post op visit. She said [facility] does not transport patients to appointments. He is scheduled to be discharged on 05/19/24. We will attempt to make him an appointment shortly after his discharge. ARACELIS Boucher Neurosurgery Nurse Practitioner [facility] 11:53 AM 05/05/2024 [facility] Work Phone: 05-05-2024 Miscellaneous Notes Contacted [facility] and spoke to patients nurseKenia. She reports that Mr. Simon is doing [...] receiving subcutaneous Heparin TID. Discussed that Dr. Patel would like to see him in the office for a post op visit. She said [facility] does not transport patients to appointments. He is scheduled to be discharged on 05/19/24. We will attempt to make him an appointment shortly after his discharge. ARACELIS Boucher Neurosurgery Nurse Practitioner [facility] 11:53 AM 05/05/2024 documented in this encounter [facility] 05-03-2024 Telephone encounter Note Call to pt, no answer, LVM with return number. Geni Calloway RN May 03, 2024 4:23 PM [facility] 05-03-2024 Miscellaneous Notes Call to pt, no answer, LVM with return number. Geni Calloway RN May 03, 2024 4:23 PM Addended by: ANYA HAUNG on: 05/03/2024 03:52 PM Modules accepted: Orders Call to pt, no answer, LVM with return number. Call to pt spouse and EC, no answer, LVM with return number. Geni Calloway RN May 03, 2024 2:28 PM Received phone call from Kimberly on 05/02/24 at 1059 am patient had a sinus rhythm of Sinus Florencio with a new onset of Atrial Flutter. Ne Andujar LPN documented in this encounter [facility] 05-03-2024 Note Addended by: ANYA VALE on: 05/03/2024 03:52 PM Modules accepted: Orders [facility] 05-03-2024 Telephone encounter Note Call to pt, no answer, LVM with return number. Call to pt spouse and EC, no answer, LVM with return number. Geni Calloway RN May 03, 2024 2:28 PM [facility] 05-03-2024 Telephone encounter Note Received phone call from Kimberly on 05/02/24 at 1059 am patient had a sinus rhythm of Sinus Florencio with a new onset of Atrial Flutter. Ne Andujar LPN [facility] 04-27-2024 History of Present illness Narrative TRANSITIONAL CARE MANAGEMENT (TCM) COMMUNITY MONITORING PROGRAM - [place] Provider Action/FYI: SUMMARY: Pt discharged from [facility] on 04/25/24. Admitted for: subdural hematoma Patient seen Inpatient DEBBI Visit? N/A. Patient seen ICARE Program? N/A. Contact made with patient: No - 2nd unsuccessful attempt - end outreach and close encounter Outreach ended documented in this encounter [facility] 04-26-2024 History of Present illness Narrative TRANSITION CARE MANAGEMENT (TCM) DISCHARGE TO POST ACUTE FACILITY POST ACUTE TRANSFER SUMMARY: -Pt discharged from [facility] on 04/25/2024. -Post Acute Facility Admitted to [facility] -Admitted for: Subdural hematoma Office PCC will follow at discharge. Madina Amador RN April 26, 2024 10:49 AM documented in this encounter [facility] 04-26-2024 History of Present illness Narrative TRANSITIONAL CARE MANAGEMENT (TCM) COMMUNITY MONITORING PROGRAM - [place] Provider Action/FYI: SUMMARY: Pt discharged from [facility] on 04/25/24. Admitted for: subdural hematoma Patient seen Inpatient DEBBI Visit? N/A. Patient seen ICARE Program? N/A. Contact made with patient: No - next outreach attempt will be on next day Outreach ended Message left for to call office documented in this encounter [facility] 04-17-2024 History of Present illness Narrative Pt current admit. Error documented in this encounter [facility] 02-14-2024 Miscellaneous Notes MESSAGE SENT TO PT ----- Message from Karthik Holliday APRN.CHAN sent at 02/14/2024 8:05 AM EDT ----- Normal ankle brachial index at rest in the bilateral leg. Karthik Holliday APRN.CNP February 14, 2024 8:05 AM documented in this encounter [facility] 02-09-2024 Miscellaneous Notes 01/31 Last OV asking for the tamsulosin to be sent to [facility] documented in this encounter [facility] 02-02-2024 Miscellaneous Notes Results sent in my chart ----- Message from Karthik Holliday APRN.RN ELIGIBILITY sent at 02/02/2024 7:58 AM EDT ----- - Vitamin d level remains low, daily prescription is advised. - Lipid panel is elevated, continue on medications and work on diet and exercise and will recheck in 6 months. - PSA level is elevated, Follow up with Urology recommended. Karthik Holliday APRN.RN ELIGIBILITY February 02, 2024 7:58 AM documented in this encounter [facility] 02-01-2024 History of Present illness Narrative Images from the original note were not included. [facility] [address] [place] [address] Date of Evaluation: 02/01/2024 Patient Name: Alfonzo [...] ICD10: R22.42 - COMPRESSION STOCKINGS Karthik Holliday APRN.RN ELIGIBILITY Return in about 6 months (around 08/03/2024) for follow up. Discussed the above with the patient using shared decision making. The patient is in agreement with the diagnostic and treatment plans. documented in this encounter [facility] 03-01-2023 Miscellaneous Notes LVM stating appt scheduled for today at 420 had to be cancelled due to PCP being out of office documented in this encounter [facility] 02-01-2023 Miscellaneous Notes Pharmacy called requesting the following refill Refill(s) Requested: Requested Prescriptions Pending Prescriptions Disp Refills lisinopril (ZESTRIL) 40 mg tablet [Pharmacy Med Name: Lisinopril Oral Tablet 40 MG] 30 tablet 0 Sig: TAKE ONE TABLET BY MOUTH EVERY DAY ALLERGIES No Known Allergies (home) [phone] (cell) Last Office Visit Date: 11/12/2022 Last Distance Health Visit: Visit date not found Future Appointment: Visit date not found The patients preferred pharmacy has been captured for this encounter? yes Request is for script(s) to be escript to pharmacy. Marybeth Malloy Ma documented in this encounter [facility] 02-01-2023 Miscellaneous Notes Left VM notifying pt that his 3:00 appt had to be cancelled due to Dr not being in the office. CB to reschedule documented in this encounter [facility] 01-18-2023 Instructions Patricia Hsu PA-C - 01/18/2023 [...] evaluations are complete. documented in this encounter [facility] 01-18-2023 History of Present illness Narrative [facility] - FOLLOW UP EVALUATION Clint Euceda Jr, MD [address] [facility] [address] [facility] [address] Dear Clint Euceda Jr, MD: I had [...] tone. No abnormal involuntary movements. Coordination Right: Mlusji-uw-nmqq normal.Left: Xajgab-tx-xbmp normal. Gait Casual gait: Wide stance. Reduced [...] or around: 04/20/23 Level of service : 09991 ( 30-39 min). Time spent 30 min on the day of service, which included wzql-md-vlmr patient care, completing clinical documentation, performing a medically appropriate examination, counseling and educating the patient/family/caregiver, and ordering medications, tests, or procedures. Thank you for allowing me to be part of the clinical care of this patient! I look forward to continued participation in the patient s care with you. Please do not hesitate to call with any questions. Sincerely, Patricia Hsu PA-C documented in this encounter [facility] 12-17-2022 Miscellaneous Notes Patient called requesting the following refill Refill(s) Requested: Requested Prescriptions Pending Prescriptions Disp Refills lisinopril (ZESTRIL, PRINIVIL) 40 mg tablet Sig: Take 1 tablet by mouth once daily. ALLERGIES No Known Allergies (home) [phone] (cell) Last Office Visit Date: 11/12/2022 Last Distance Health Visit: Visit date not found Future Appointment: Visit date not found The patients preferred pharmacy has been captured for this encounter? yes Request is for script(s) to be escript to pharmacy. Marybeth Malloy Ma documented in this encounter [facility] 12-01-2022 History of Present illness Narrative TRANSITION CARE MANAGEMENT (TCM) FOLLOW-UP NOTE Provider Action/FYI Patient identified by name and date of : YES Spoke to patient Summary: Patient feels well and denies fever, sweats, chills, SOB, mucus, cough, or chest pain. Denies any needs at this time. Concerns: None at this time. Production Planning Supervisor plan for next outreach: No further follow up needed at this time Signature Dayan Mina RN December 01, 2022 documented in this encounter [facility] 11-24-2022 History of Present illness Narrative TRANSITION CARE MANAGEMENT (TCM) FOLLOW-UP NOTE Provider Action/FYI Patient identified by name and date of : YES Spoke to patient Summary: Patient feels well and denies fever, sweats, chills, SOB, mucus, cough, or chest pain. Denies any needs at this time. Concerns: None at this time. Production Planning Supervisor plan for next outreach: Will follow up ~ 1 week Signature Dayan Mina RN November 24, 2022 documented in this encounter [facility] 11-17-2022 History of Present illness Narrative TRANSITION CARE MANAGEMENT (TCM) FOLLOW-UP NOTE Provider Action/FYI Patient identified by name and date of : YES Spoke to patient Summary: Patient is in the [place] [facility] [place]. He denies chest pain, mucus, fever, cough, or SOB. Concerns: None at this time. Production Planning Supervisor plan for next outreach: Will follow up ~ 1 week Signature Dayan Mina RN November 17, 2022 documented in this encounter [facility] 11-12-2022 Ivette Olivas APRN.CNP - 11/12/2022 2:18 PM EST [...] 2022 2:02 PM documented in this encounter [facility] 11-12-2022 History of Present illness Narrative Transitional [...] symptoms. Mild cough. He was going to [facility] for parkinsonism and had taken [...] 2022 2:02 PM documented in this encounter [facility] 11-10-2022 Miscellaneous Notes Patient aware He should resume the C/L trial as we had outlined in the clinic. Start taking Sinemet (carbidopa/levodopa) 25/100 as follows: 8 AMNoon5 PM Week 1 Week 2110 Week 31 1 1 4221 I will send another script now. Patient [...] He needs a new script sent to [place] on file. documented in this encounter [facility] 11-10-2022 History of Present illness Narrative TRANSITION [...] on 11/12/22. Concerns: None at this time. Production Planning Supervisor plan for next outreach: Will follow up ~ 1 week Signature Dayan Mina RN November 10, 2022 documented in this encounter [facility] 10-29-2022 History of Present illness Narrative [facility] - FOLLOW UP EVALUATION Clint Euceda Jr, MD [address] [facility] [address] [facility] [address] I had the pleasure of seeing Mr. [...] his mood medications. He was in [place] [facility] [place] till 2 weeks ago but insurance ran [...] using the PROMIS scale: PROMIS-10 Flowsheet Row [facility] from 10/07/2022 in Neurology OT/PT/Speech Visit from 01/20/2021 in [facility] Global Physical Health T Score [...] 5/5 throughout all four extremities. Coordination Right: Lerhaa-op-weie normal.Left: Srphro-zt-ropb normal. Gait Casual gait: Normal stance. Reduced [...] research? Not currently Level of service : 18936 (40-54 min). Time spent 50 min on the day of service, which included preparing to see the patient, eknc-qo-hnre patient care, completing clinical documentation, obtaining and/or [...] De Oliveira MD documented in this encounter [facility] 10-29-2022 Instructions Josse De Oliveira MD - [...] a sleep study. documented in this encounter [facility] 10-21-2022 Instructions Paul Mccall MD - 10/21/2022 3:46 PM EST It was great to see you today! I think you need to get your sleep apnea treated and I'll bet your urinary nighttime symptoms vastly improve. I'll see you back in a year. Have a [facility]! documented in this encounter [facility] 10-21-2022 History of Present illness Narrative Images from the original note were not included. [facility] [place] ESTABLISHED PATIENT OFFICE VISIT HISTORY OF PRESENT [...] by contextual derivation. documented in this encounter [facility] 10-08-2022 History of Present illness Narrative TRANSITIONAL CARE MANAGEMENT (TCM) COMMUNITY MONITORING PROGRAM - [place] Provider Action/FYI: SUMMARY: Pt discharged from [facility] on 10/05/22. Admitted for: Parkinsonism Contact made with patient: No - next outreach attempt will be on next business day Outreach ended TRANSITIONAL CARE MANAGEMENT (TCM) COMMUNITY MONITORING PROGRAM - [place] Provider Action/FYI: SUMMARY: Pt discharged from [facility] on 10/05/22. Admitted for: Parkinsonism Contact made with patient: Yes Hi my name is Moo Dumont RN and I am calling from the [facility] on behalf of your PCP, Clint Euceda [...] like to speak with a social work steam engineer to help give you support for any [...] I will send your request to a customer service voice who will contact and assist you with [...] way if possible). documented in this encounter [facility] 10-07-2022 Note HNO ID: [id number] Author: Josse De Oliveira MD Service: ? Author Type: Physician Type: Progress Notes Filed: 10/07/2022 8:38 AM Note Text: [facility] - NEW PATIENT EVALUATION Clint Euceda Jr [address] [facility] [address] [place] [address] [facility] [address] Clint Euceda Jr, MD [address] [facility] [address] [place] [address] [facility] [address] Euceda: I had the pleasure of evaluating Mr. Simon to our clinic today. As you know he is a 62 year old left-handed male who is seen in consultation for evaluation of falls since 2 weeks . He is seen alone. We had a visit using: Relypsa I received consent from the patient to perform the visit using this platform. 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 He [...] times. He tends to fall forward. [place] work on the posture [...] Visit from 01/20/2021 in [facility] Global Physical Health T Score [...] pain or fev (more content not included)... [facility] 10-07-2022 History of Present illness Narrative [facility] - NEW PATIENT EVALUATION Clint Euceda Jr [address] [facility] [address] [place] [facility] [address] Clint Euceda Jr, MD [address] [facility] [facility] [address] [place] [address] [facility] [address] Euceda: I had the pleasure of evaluating Mr. Simon to our clinic today. As you know he is a 62 year old left-handed male who is seen in consultation for evaluation of falls since 2 weeks . He is seen alone. We had a visit using: Relypsa I received consent from the patient to perform the visit using this platform. 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 He [...] times. He tends to fall forward. [place] to work on the posture [...] Visit from 01/20/2021 in [facility] Global Physical Health T Score [...] Essential hypertension (05/25/2016), Obesity, morbid, BMI 40.0-49.9 ([facility]), Sleep apnea, Systolic murmur (05/25/2016), and [...] or around: 10/21/22 Level of service : 13081 (30-44 min). Time spent 30 min on the day of service, which included preparing to see the patient, ocyp-qt-btfz patient care, completing clinical documentation, obtaining and/or [...] De Oliveira MD documented in this encounter [facility] 09-29-2022 History of Present illness Narrative TRANSITION CARE MANAGEMENT (TCM) FOLLOW-UP NOTE Provider Action/BRITTNEEI Patient remains at [facility] [place] receiving skilled care. [phone]. Production Planning Supervisor plan for next outreach: Will follow up 1 week Signature Moo Dumont RN September 29, 2022 documented in this encounter [facility] 09-24-2022 Miscellaneous Notes [address]rology Referral place through the [facility] Portal on September 24, 2022. #[id number] Preferred Provider Dr. roxy Dickerson documented in this encounter [facility] 09-21-2022 History of Present illness Narrative TRANSITION CARE MANAGEMENT (TCM) FOLLOW-UP NOTE Provider Action/FYI Patient is still on skilled unit [phone] Production Planning Supervisor plan for next outreach: Will follow up 1 week Signature Moo Dumont RN September 21, 2022 documented in this encounter [facility] 09-18-2022 Miscellaneous Notes Pt states he has had several falls, balance unsteady, and shaky had to go to ER documented in this encounter [facility] 09-08-2022 Miscellaneous Notes Pt known to Dr Mccall. He was a no show on 09/03 to an appt with Mitzi. Pt seen on consult for urinary frequency. He needs a f/u appt scheduled. Thanks documented in this encounter [facility] 09-07-2022 History of Present illness Narrative TRANSITION CARE MANAGEMENT (TCM) DISCHARGE TO POST ACUTE FACILITY POST ACUTE TRANSFER SUMMARY: -Pt discharged from [facility] on 09/06/22. -Post Acute Facility Admitted to [facility] -Admitted for: Parkinsonism Moo Dumont RN documented in this encounter [facility] 09-03-2022 Miscellaneous Notes Pt called states pt has been admitted to [facility] documented in this encounter [facility] 09-03-2022 History of Present illness Narrative The patient did not show up for this appointment. documented in this encounter [facility] 09-01-2022 Instructions Lianne Menon APRN.CHAN - 09/01/2022 3:17 PM EDT (W19.XXXA) Fall, initial encounter (primary encounter diagnosis) Plan: CONSULT TO EMERGENCY MEDICINE Multiple falls over the last couple months for un-balance issues, worse in the last week. Needs ER evaluation now. Vitals are stable to private transport. documented in this encounter [facility] 09-01-2022 History of Present illness Narrative This note was created using NoteWriter. Subjective Alfonzo Simon is a 62 year [...] polyp No date: Obesity, morbid, BMI 40.0-49.9 ([facility]) No date: Sleep apnea Review of Systems [...] after visit summary. documented in this encounter [facility] 05-08-2022 Instructions Rosalinda Olivas APRN.CNP - 05/08/2022 [...] - ATORVASTATIN 20 MG TABLET Rosalinda Olivas APRN.CHAN documented in this encounter [facility] 05-08-2022 History of Present illness Narrative Images from the original note were not included. Alfonzo Simon is a 62 year old male who presents for Back Pain (upper back, last few months, furniture walking) Here for upper back pain concerns: He also struggles with balance. The history is provided by the patient. No shop fitter was used. Back Pain This is a [...] CONSULT TO PHYSICAL THERAPY (AG) Rosalinda Olivas APRN.RN ELIGIBILITY Return if symptoms worsen or fail to improve. Discussed above plan with patient. Pt agreeable with above plan. documented in this encounter [facility] 04-10-2022 History of Present illness Narrative Images from the original note were not included. Clint Euceda Jr., M.D. [facility] [address] [place] [address] Date of Evaluation: 04/10/2022 Patient Name: Alfonzo [...] His venlafaxine and bupropion are handled by [facility]. He denies any problems at this time [...] patient. This note was partially generated using Attainia voice recognition system, and there may be some incorrect words, spellings, and punctuation that were not noted in checking the note before saving. documented in this encounter [facility] 03-24-2022 Miscellaneous Notes Pharmacy faxed requesting the following refill Refill(s) Requested: Pending Prescriptions Disp Refills ATORVASTATIN 20 MG TABLET 30 tablet 0 Sig: TAKE ONE TABLET BY MOUTH EVERY DAY CARITO: Yes ALLERGIES No Known Allergies (home) [phone] (cell) Last Office Visit Date: 06/04/2021 Last [facility] Visit: Visit date not found Future Appointment: Visit date not found The patients preferred pharmacy has been captured for this encounter? yes Request is for script(s) to be escript to pharmacy. Divya Abreu LPN documented in this encounter [facility] 02-19-2022 History of Present illness Narrative Images from the original note were not included. Paul Lorenz MD [facility] [address] [place] [address] [facility] / [address] Floor [place], [place] [address] Visit Date: February 19, 2022 Name: Alfonzo Simon Date of : 1960 MRN/E #: [id number] Chief Complaint: No chief complaint on file. [...] Value Ref Range Status COVID 19 Source [employer] SUPER[employer] 10/26/2021 UPPER RESPIRATORY TRACT SWAB Final Influenza A PCR 10/26/2021 Negative for Influenza A by RT PCR Final Influenza B PCR 10/26/2021 Negative for Influenza B by RT PCR Final COVID 19 Result [employer] SUPERVISOR 10/26/2021 Negative for COVID19 (SARS CoV2) by RT-PCR or equivalent method. Negative for COVID19 (SARS CoV2) by RT-PCR or equivalent method. Final Comment: This test was developed and its performance characteristics determined by [facility]'s [facility] [place]. This test has been authorized by FDA under an Emergency Use Authorization (EUA). This test has been validated in accordance with the FDA's Guidance Document Policy for Diagnostics Testing in Laboratories Certified to Perform High Complexity Testing under CLIA prior to Emergency use Authorization for Coronavirus Disease 2019 during the Public Health Emergency" issued on January 06, 2020. Test performed by [facility], [facility] [place], [address] [address]. Results for orders placed or performed in visit on 10/24/21 COVID WITH FLUA+B, ROUTINE Specimen: OTHER; Nasal Swab Result Value Ref Range COVID 19 Source [employer]AGGAGE HANDL[employer] SUPERVISOR UPPER RESPIRATORY TRACT SWAB Influenza A PCR Negative for Influenza A by RT PCR Influenza B PCR Negative for Influenza B by RT PCR COVID 19 Result [employer] SUPER[employer]OR Negative for COVID19 (SARS CoV2) by RT-PCR or equivalent method. Negative for COVID19 (SARS CoV2) by RT-PCR or equivalent method. ASSESSMENT/PLAN: 1. Essential hypertension - ICD9: 401.9, ICD10: I10 (primary diagnosis) - Well controlled today. 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 Discussed the above with the patient using shared decision-making. The patient is in agreement with the diagnostic and treatment plans. Provider: Paul Lorenz M.D. Date: February 19, 2022 Time: 1:09 PM documented in this encounter [facility] 09-13-2019 History of Past i llness Narrative Problem Noted Date Resolved Date Closed fracture of left tibial plateau 9 12/25/2020 Obesity, Class II, BMI 35-39.9 06/28/2018 0 12/25/2020 Bilateral lower extremity edema 05/25/2016 12/25/2020 documented as of this encounter (statuses as of 02/23/2022) [facility] History of Past illness Narrative* Problem Noted Date Resolved Date Closed fracture of left tibial plateau 9 12/25/2020 Obesity, Class II, BMI 35-39.9 06/28/2018 0 12/25/2020 Bilateral lower extremity edema 05/25/2016 12/25/2020 documented as of this encounter (statuses as of 03/24/2022) [facility] History of Past illness Narrative* Problem Noted Date Resolved Date Closed fracture of left tibial plateau 9 12/25/2020 Obesity, Class II, BMI 35-39.9 06/28/2018 0 12/25/2020 Bilateral lower extremity edema 05/25/2016 12/25/2020 documented as of this encounter (statuses as of 04/10/2022) [facility] History of Past illness Narrative* Problem Noted Date Resolved Date Closed fracture of left tibial plateau 9 12/25/2020 Obesity, Class II, BMI 35-39.9 06/28/2018 0 12/25/2020 Bilateral lower extremity edema 05/25/2016 12/25/2020 documented as of this encounter (statuses as of 05/08/2022) [facility] History of Past illness Narrative* Problem Noted Date Resolved Date Closed fracture of left tibial plateau 9 12/25/2020 Obesity, Class II, BMI 35-39.9 06/28/2018 0 12/25/2020 Bilateral lower extremity edema 05/25/2016 12/25/2020 documented as of this encounter (statuses as of 09/01/2022) [facility]11-06-2019 History of Past illness Narrative* Problem Noted Date Resolved Date Closed fracture of left tibial plateau 9 12/25/2020 Obesity, Class II, BMI 35-39.9 06/28/2018 0 12/25/2020 Bilateral lower extremity edema 05/25/2016 12/25/2020 documented as of this encounter (statuses as of 09/03/2022) [facility]2019 History of Past illness Narrative* Problem Noted Date Resolved Date Closed fracture of left tibial plateau 9 12/25/2020 Obesity, Class II, BMI 35-39.9 06/28/2018 0 12/25/2020 Bilateral lower extremity edema 05/25/2016 12/25/2020 documented as of this encounter (statuses as of 09/07/2022) [facility]2019 History of Past illness Narrative* Problem Noted Date Resolved Date Closed fracture of left tibial plateau 9 12/25/2020 Obesity, Class II, BMI 35-39.9 06/28/2018 0 12/25/2020 Bilateral lower extremity edema 05/25/2016 12/25/2020 documented as of this encounter (statuses as of 09/08/2022) [facility] History of Past illness Narrative* Problem Noted Date Resolved Date Closed fracture of left tibial plateau 9 12/25/2020 Obesity, Class II, BMI 35-39.9 06/28/2018 0 12/25/2020 Bilateral lower extremity edema 05/25/2016 12/25/2020 documented as of this encounter (statuses as of 09/21/2022) [facility] History of Past illness Narrative* Problem Noted Date Resolved Date Closed fracture of left tibial plateau 9 12/25/2020 Obesity, Class II, BMI 35-39.9 06/28/2018 0 12/25/2020 Bilateral lower extremity edema 05/25/2016 12/25/2020 documented as of this encounter (statuses as of 09/22/2022) [facility] History of Past illness Narrative* Problem Noted Date Resolved Date Closed fracture of left tibial plateau 9 12/25/2020 Obesity, Class II, BMI 35-39.9 06/28/2018 0 12/25/2020 Bilateral lower extremity edema 05/25/2016 12/25/2020 documented as of this encounter (statuses as of 09/24/2022) [facility] History of Past illness Narrative* Problem Noted Date Resolved Date Closed fracture of left tibial plateau 9 12/25/2020 Obesity, Class II, BMI 35-39.9 06/28/2018 0 12/25/2020 Bilateral lower extremity edema 05/25/2016 12/25/2020 documented as of this encounter (statuses as of 09/25/2022) [facility] History of Past illness Narrative* Problem Noted Date Resolved Date Closed fracture of left tibial plateau 9 12/25/2020 Obesity, Class II, BMI 35-39.9 06/28/2018 0 12/25/2020 Bilateral lower extremity edema 05/25/2016 12/25/2020 documented as of this encounter (statuses as of 09/29/2022) [facility] History of Past illness Narrative* Problem Noted Date Resolved Date Closed fracture of left tibial plateau 9 12/25/2020 Obesity, Class II, BMI 35-39.9 06/28/2018 0 12/25/2020 Bilateral lower extremity edema 05/25/2016 12/25/2020 documented as of this encounter (statuses as of 10/07/2022) [facility] History of Past illness Narrative* Problem Noted Date Resolved Date Closed fracture of left tibial plateau 9 12/25/2020 Obesity, Class II, BMI 35-39.9 06/28/2018 0 12/25/2020 Bilateral lower extremity edema 05/25/2016 12/25/2020 documented as of this encounter (statuses as of 10/09/2022) [facility] History of Past illness Narrative* Problem Noted Date Resolved Date Closed fracture of left tibial plateau 9 12/25/2020 Obesity, Class II, BMI 35-39.9 06/28/2018 0 12/25/2020 Bilateral lower extremity edema 05/25/2016 12/25/2020 documented as of this encounter (statuses as of 10/21/2022) [facility] History of Past illness Narrative* Problem Noted Date Resolved Date Closed fracture of left tibial plateau 9 12/25/2020 Obesity, Class II, BMI 35-39.9 06/28/2018 0 12/25/2020 Bilateral lower extremity edema 05/25/2016 12/25/2020 documented as of this encounter (statuses as of 10/30/2022) [facility] History of Past illness Narrative* Problem Noted Date Resolved Date Closed fracture of left tibial plateau 9 12/25/2020 Obesity, Class II, BMI 35-39.9 06/28/2018 0 12/25/2020 Bilateral lower extremity edema 05/25/2016 12/25/2020 documented as of this encounter (statuses as of 11/12/2022) [facility] History of Past illness Narrative* Problem Noted Date Resolved Date Closed fracture of left tibial plateau 9 12/25/2020 Obesity, Class II, BMI 35-39.9 06/28/2018 0 12/25/2020 Bilateral lower extremity edema 05/25/2016 12/25/2020 documented as of this encounter (statuses as of 11/12/2022) [facility] History of Past illness Narrative* Problem Noted Date Resolved Date Closed fracture of left tibial plateau 9 12/25/2020 Obesity, Class II, BMI 35-39.9 06/28/2018 0 12/25/2020 Bilateral lower extremity edema 05/25/2016 12/25/2020 documented as of this encounter (statuses as of 11/13/2022) [facility] History of Past illness Narrative* Problem Noted Date Resolved Date Closed fracture of left tibial plateau 9 12/25/2020 Obesity, Class II, BMI 35-39.9 06/28/2018 0 12/25/2020 Bilateral lower extremity edema 05/25/2016 12/25/2020 documented as of this encounter (statuses as of 11/17/2022) [facility] History of Past illness Narrative* Problem Noted Date Resolved Date Closed fracture of left tibial plateau 9 12/25/2020 Obesity, Class II, BMI 35-39.9 06/28/2018 0 12/25/2020 Bilateral lower extremity edema 05/25/2016 12/25/2020 documented as of this encounter (statuses as of 11/24/2022) [facility] History of Past illness Narrative* Problem Noted Date Resolved Date Closed fracture of left tibial plateau 9 12/25/2020 Obesity, Class II, BMI 35-39.9 06/28/2018 0 12/25/2020 Bilateral lower extremity edema 05/25/2016 12/25/2020 documented as of this encounter (statuses as of 12/01/2022) [facility] History of Past illness Narrative* Problem Noted Date Resolved Date Closed fracture of left tibial plateau 9 12/25/2020 Obesity, Class II, BMI 35-39.9 06/28/2018 0 12/25/2020 Bilateral lower extremity edema 05/25/2016 12/25/2020 documented as of this encounter (statuses as of 12/17/2022) [facility] History of Past illness Narrative* Problem Noted Date Resolved Date Closed fracture of left tibial plateau 9 12/25/2020 Obesity, Class II, BMI 35-39.9 06/28/2018 0 12/25/2020 Bilateral lower extremity edema 05/25/2016 12/25/2020 documented as of this encounter (statuses as of 01/19/2023) [facility] History of Past illness Narrative* Problem Noted Date Resolved Date Closed fracture of left tibial plateau 9 12/25/2020 Obesity, Class II, BMI 35-39.9 06/28/2018 0 12/25/2020 Bilateral lower extremity edema 05/25/2016 12/25/2020 documented as of this encounter (statuses as of 02/01/2023) [facility] History of Past illness Narrative* Problem Noted Date Resolved Date Closed fracture of left tibial plateau 9 12/25/2020 Obesity, Class II, BMI 35-39.9 06/28/2018 0 12/25/2020 Bilateral lower extremity edema 05/25/2016 12/25/2020 documented as of this encounter (statuses as of 02/02/2023) [facility] History of Past illness Narrative* Problem Noted Date Resolved Date Closed fracture of left tibial plateau 9 12/25/2020 Obesity, Class II, BMI 35-39.9 06/28/2018 0 12/25/2020 Bilateral lower extremity edema 05/25/2016 12/25/2020 documented as of this encounter (statuses as of 03/01/2023) [facility] History of Past illness Narrative* Problem Noted Date Diagnosed Date Resolved Date Closed fracture of left tibial plateau 09/13/2019 12/25/2020 Obesity, Class II, BMI 35-39.9 06/28/2018 12/25/2020 Bilateral lower extremity edema 05/25/2016 12/25/2020 documented as of this encounter (statuses as of 06/23/2023) [facility] History of Past illness Narrative* Problem Noted Date Diagnosed Date Resolved Date Closed fracture of left tibial plateau 09/13/2019 12/25/2020 Obesity, Class II, BMI 35-39.9 06/28/2018 12/25/2020 Bilateral lower extremity edema 05/25/2016 12/25/2020 documented as of this encounter (statuses as of 02/01/2024) [facility] History of Past illness Narrative* Problem Noted Date Diagnosed Date Resolved Date Closed fracture of left tibial plateau 09/13/2019 12/25/2020 Obesity, Class II, BMI 35-39.9 06/28/2018 12/25/2020 Bilateral lower extremity edema 05/25/2016 12/25/2020 documented as of this encounter (statuses as of 02/02/2024) [facility] History of Past illness Narrative* Problem Noted Date Diagnosed Date Resolved Date Closed fracture of left tibial plateau 09/13/2019 12/25/2020 Obesity, Class II, BMI 35-39.9 06/28/2018 12/25/2020 Bilateral lower extremity edema 05/25/2016 12/25/2020 documented as of this encounter (statuses as of 02/09/2024) [facility] History of Past illness Narrative* Problem Noted Date Diagnosed Date Resolved Date Closed fracture of left tibial plateau 09/13/2019 12/25/2020 Obesity, Class II, BMI 35-39.9 06/28/2018 12/25/2020 Bilateral lower extremity edema 05/25/2016 12/25/2020 documented as of this encounter (statuses as of 02/14/2024) [facility] Essential hypertension- Primary Unspecified essential hypertension longterm current use of diuretic [facility] Dyslipidemia Other and unspecified hyperlipidemia [facility] Benign prostatic hyperplasia with lower urinary tract symptoms, symptom details unspecified- Primary Essential hypertension Unspecified essential hypertension Dyslipidemia Other and unspecified hyperlipidemia documented in this encounter [facility] note* Diagnosis Chronic midline thoracic back pain- Primary Dyslipidemia Other and unspecified hyperlipidemia Balance problem Other symptoms involving nervous and musculoskeletal systems documented in this encounter [facility] note* Diagnosis Fall, initial encounter- Primary Balance problem Other symptoms involving nervous and musculoskeletal systems Fatigue, unspecified type documented in this encounter [facility] note* Diagnosis NO SHOW- Primary documented in this encounter [facility] note* Diagnosis Parkinsonism, unspecified Parkinsonism type (HCC)- Primary documented in this encounter [facility] note* Diagnosis Essential hypertension Unspecified essential hypertension documented in this encounter [facility] note* Diagnosis Shuffling gait- Primary Abnormality of gait Gait instability Abnormality of gait documented in this encounter [facility] noteNo assessment information availableWSelect Medical [facility] Work Phone: Evaluation note* Diagnosis Benign prostatic hyperplasia with lower urinary tract symptoms, symptom details unspecified- Primary Urinary frequency documented in this encounter [facility] note* Diagnosis Parkinsonism, unspecified Parkinsonism type (HCC)- Primary HARJEET (obstructive sleep apnea) Obstructive sleep apnea (adult) (pediatric) documented in this encounter [facility] note* Diagnosis Parkinsonism, unspecified Parkinsonism type (HCC)- Primary documented in this encounter [facility] note* Diagnosis Hospital discharge follow-up- Primary Other follow-up examination Essential hypertension Unspecified essential hypertension Pneumonia due to influenza A virus Influenza with pneumonia Weakness Other malaise and fatigue Balance problem Other symptoms involving nervous and musculoskeletal systems documented in this encounter [facility] note* Diagnosis Parkinsonism, unspecified Parkinsonism type (HCC)- Primary documented in this encounter [facility] note* Diagnosis Encounter to establish care- [...] left lower leg [facility] Diagnosis Benign prostatic hyperplasia with lower urinary tract symptoms, symptom details unspecified [facility] Diagnosis Atrial flutter, unspecified type (HCC)- Primary Traumatic subdural hematoma with loss of consciousness, sequela (HCC) [facility]* Diagnosis SDH (subdural hematoma) (HCC)- Primary Subdural hemorrhage [facility] Diagnosis Atrial flutter, unspecified type (HCC)- Primary [facility] Diagnosis Traumatic subdural hematoma with loss of consciousness, sequela (HCC)- Primary Intracranial meningioma (HCC) Benign neoplasm of cerebral meninges [facility] Diagnosis Atrial flutter, unspecified type (HCC)- Primary Subdural hematoma (HCC) Subdural hemorrhage History of ischemic stroke [facility] Diagnosis SDH (subdural hematoma) (HCC) Subdural hemorrhage [facility] Diagnosis Benign prostatic hyperplasia with urinary retention- Primary Traumatic subdural hematoma with loss of consciousness, sequela (HCC)- Primary Intracranial meningioma (HCC) Benign neoplasm of cerebral meninges [facility] Diagnosis Traumatic subdural hematoma with loss of consciousness, sequela (HCC) Intracranial meningioma (HCC) Benign neoplasm of cerebral meninges [facility] Diagnosis Hemiparesis affecting left side as [...] and unspecified hyperlipidemia [facility] Diagnosis Traumatic subdural hematoma with loss of consciousness, sequela (HCC)- Primary [facility] Diagnosis Traumatic subdural hematoma with loss of consciousness, sequela (HCC) Intracranial meningioma (HCC) Benign neoplasm of cerebral meninges [facility] Benign prostatic hyperplasia with lower urinary tract symptoms, symptom details unspecified [facility] Diagnosis Hospital discharge follow-up- Primary [...] (HCC) Morbid obesity [facility] Diagnosis Silent micro-hemorrhage of brain (HCC) [facility]* Diagnosis Traumatic subdural hematoma with loss of consciousness, sequela (HCC)- Primary Intracranial meningioma (HCC) Benign neoplasm of cerebral meninges [facility]* Diagnosis Spastic hemiparesis of left [...] of cerebral meninges [facility] Diagnosis Intracranial meningioma (HCC)- Primary Benign neoplasm of cerebral meninges Benign neoplasm of meninges (HCC) Benign neoplasm of cerebral meninges [facility] Diagnosis Traumatic subdural hematoma with loss of consciousness, sequela (HCC) Intracranial meningioma (HCC) Benign neoplasm of cerebral meninges [facility]* Diagnosis Depression, unspecified depression type- Primary [facility] Diagnosis Depression, unspecified depression type- Primary [facility] Diagnosis Multiple subsegmental pulmonary emboli without acute cor pulmonale (HCC) Acute deep vein thrombosis (DVT) of proximal vein of lower extremity, unspecified laterality (HCC) [facility] Diagnosis Intracranial meningioma (HCC) Benign neoplasm of cerebral meninges Benign neoplasm of meninges (HCC) Benign neoplasm of cerebral meninges [facility] Diagnosis Soft tissue mass- Primary Disorders of soft tissue, unspecified Intracranial meningioma (HCC)- Primary Benign neoplasm of cerebral meninges Traumatic subdural hematoma with loss of consciousness, sequela (HCC) [facility] Diagnosis Intracranial meningioma (HCC)- Primary Benign neoplasm of cerebral meninges Traumatic subdural hematoma with loss of consciousness, sequela (HCC) [facility] Diagnosis 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- Primary [facility] Diagnosis Spastic hemiparesis of left dominant side as late effect of cerebral infarction (HCC)- Primary Silent micro-hemorrhage of brain (HCC) Atrial flutter, unspecified type (HCC) Essential hypertension Unspecified essential hypertension Dyslipidemia Other and unspecified hyperlipidemia [facility] Diagnosis Atrial flutter, unspecified type (HCC)- Primary [facility] Diagnosis 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 [facility]* Diagnosis Multiple subsegmental pulmonary emboli without acute cor pulmonale (HCC)- Primary Acute deep vein thrombosis (DVT) of proximal vein of lower extremity, unspecified laterality (HCC) [facility] Diagnosis Spastic hemiparesis of left dominant side as late effect of cerebral infarction (HCC)- Primary Silent micro-hemorrhage of brain (HCC) Atrial flutter, unspecified type (HCC) Essential hypertension Unspecified essential hypertension Dyslipidemia Other and unspecified hyperlipidemia documented in this encounter [facility] for referral (narrative)* Diagnostic Procedure Only (Routine) - Pending Review Specialty Diagnoses / Procedures Referred By Perri calero Referred To Contact US IMAGING Diagnoses Venous insufficiency Procedures US ANKLE BRACHIAL INDICES NON-INVAS PHYSIOLOGIC STD EXTREMITY ART 2 LEVEL Karthik Holliday, FELIX.RN ELIGIBILITY [address] [place] [address] [place] [id number] Referral ID Status Reason Start Date Expiration Date Visits Requested Visits Authorized [id number] Pending Review Auto-Generat ed Referral 02/01/2024 03/02/2025 1 1 [facility] for referral (narrative)* Outpatient Procedure (Routine) - Authorized Specialty Diagnoses / Procedures Referred By Contac t Referred To Contact [facility] Diagnoses Atrial flutter, unspecified type (HCC) Procedures ECG COMPLETE ECG ROUTINE ECG W/LEAST 12 LDS W/I&R Jed Wolf MD [address] [place] [address] [place] [phone] Referral ID Status Reason Start Date Expiration Date Visits Requested Visits Authorized [id number] Authorized Auto-Generat ed Referral 05/04/2024 05/04/2025 1 1 [facility] for referral (narrative)* Outpatient Procedure (Routine) - Pending Review Specialty Diagnoses / Procedures Referred By Contac t Referred To [facility] Diagnoses Atrial flutter, unspecified type (HCC) Subdural hematoma (HCC) History of ischemic stroke Procedures ECG COMPLETE ECG ROUTINE ECG W/LEAST 12 LDS W/I&R Jed Wolf MD [address] [place] [address] [address] Referral ID Status Reason Start Date Expiration Date Visits Requested Visits Authorized [id number] Pending Review Auto-Generat ed Referral 05/09/2024 05/09/2025 1 1 * Transition of Care (Routine) - Ref Not Required Specialty Diagnoses / Procedures Referred By Contac t Referred To Contact [facility] Procedures CARDIOVASCULAR MEDICINE OP FOLLOW UP APPT ORDER Maryann, Jed, MD [address] [place] [address] [facility] [address] [place] [phone] Referral ID Status Reason Start Date Expiration Date Visits Requested Visits Authorized [id number] Ref Not Required PCP Requested Referral 06/09/2024 05/09/2025 1 1 [facility] for referral (narrative)* Diagnostic Procedure Only (Routine) - New Request Specialty Diagnoses / Procedures Referred By Perri calero Referred To Contact US IMAGING Diagnoses Thyroid nodule Procedures US THYROID/PARATHYROID US SOFT TISSUE HEAD & NECK REAL TIME IMGE Karthik Koroma APRN.CNP [address] [place] [address] Us Imaging [id number] Referral ID Status Reason Start Date Expiration Date Visits Requested Visits Authorized [id number] New Request Auto-Generat ed Referral 4 10/18/2025 1 1 [facility] for referral (narrative)No reason for referral information availableWSelect Medical [facility] Work Phone: Reason for visit Narrative* Diagnostic Procedure Only (Routine) - Closed Specialty Diagnoses / Procedures Referred By Perri calero Referred To Contact RAD 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 Diagnoses Traumatic subdural hemorrhage with loss of consciousness of unspecified duration, sequela Benign neoplasm of cerebral meninges CT BRAIN WO-GK Traumatic subdural hematoma with loss of consciousness, sequela (HCC) [S06.5X9S] Intracranial meningioma (HCC) [D32.0] Procedures CT HEAD/BRAIN W/O CONTRAST MATERIAL CT WWO [place] [address] Leonard Patel MD [address] [place] [address] Scan [employer] Exterior Interior Specialist [address] [facility] [place] [address] Referral ID Status Reason Start Date Expiration Date Visits Re quested Visits Authorized [id number] Closed 05/09/2024 07/08/2024 1 1 [facility] for visit Narrative* MRI/CT (Routine) - Closed Specialty Diagnoses / Procedures Referred By Perri t Referred To Contact [facility] Diagnoses Intracranial meningioma (HCC) Benign neoplasm of meninges (HCC) Procedures MRI BRAIN WO/W IVCON MRI BRAIN BRAIN STEM W/O W/CONTRAST MATERIAL Leonard Patel MD [address] [place] [address] Phone: tel: fax: [place] [address] Referral ID Status Reason Start Date Expiration Date V isits Requested Visits Authorized [id number] Closed Auto-Generate d Referral 10/27/2024 11/26/2025 1 1 [facility] for visit Narrative* Outpatient Procedure (Routine) - Closed Specialty Diagnoses / Procedures Referred By Perri calero [facility] Diagnoses 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 Procedures ECG COMPLETE ECG ROUTINE ECG W/LEAST 12 LDS W/I&R Candelario Schwartz MD [address] [place] [address] Phone: tel: fax: [facility] [place] [address] Referral ID Status Reason Start Date Expiration Date V isits Requested Visits Authorized [id number] Closed Auto-Generate d Referral 01/20/2025 01/20/2026 1 1 [facility] Summary Purpose Family History No Family History [...] Documents on File Type Date 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) 08/29/2021 9:55 PM [...] Documents on File Type Date Recorded 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) 08/29/2021 9:55 PM [...] CONSULT TO PHYSICAL THERAPY (AG) Rosalinda Olivas APRN.RN ELIGIBILITY [address] [facility] [address] [place] [address] Referral ID Status Reason Start Date Expiration Date Visits Requested Visits Authorized [id number] Ref Not Required PCP Requested Referral 05/08/2022 08/06/2022 1 1 Specialty Diagnoses / Procedures Referred By Contac t Referred To Contact Neurology Diagnoses Parkinsonism, unspecified Parkinsonism type (HCC) Procedures CONSULT TO NEUROLOGY OFFICE/OUTPATIENT [facility] 60-74 MINUTES Clint Euceda Jr., MD [address] [facility] [address] [place] [address] Referral ID Status Reason Start Date Expiration Date Visits Requested Visits Authorized [id number] Authorized PCP Requested Referral 2 09/20/2023 1 1 Specialty Diagnoses / Procedures Referred By Contac t Referred To Contact Diagnoses Shuffling gait Gait instability Procedures PROVIDER ORDERED FOLLOW UP OFFICE/OUTPATIENT [facility] 60-74 MINUTES Josse De Oliveira MD [address] [place] [address] Referral ID Status Reason Start Date Expiration Date Visits Requested Visits Authorized [id number] Authorized PCP Requested Referral 2 10/07/2023 1 1 Specialty Diagnoses / Procedures Referred By Contac t Referred To Contact Diagnoses Parkinsonism, unspecified Parkinsonism type (HCC) HARJEET (obstructive sleep apnea) Procedures CONSULT TO SLEEP MEDICINE - ADULT OFFICE/OUTPATIENT [facility] 60-74 MINUTES Josse De Oliveira MD [address] [place] [address] Referral ID Status Reason Start Date Expiration Date Visits Requested Visits Authorized [id number] Authorized PCP Requested Referral 2 10/29/2023 1 1 Specialty Diagnoses / Procedures Referred By Contac t Referred To Contact MR IMAGING Diagnoses Parkinsonism, unspecified Parkinsonism type (HCC) Procedures MRI BRAIN WO IVCON MRI BRAIN BRAIN STEM W/O CONTRAST MATERIAL Josse De Oliveira MD [address] [place] [address] Mr Imaging Referral ID Status Reason Start Date Expiration Date Visits Requested Visits Authorized [id number] Pending Review Auto-Generat ed Referral 2 11/28/2023 1 1 Specialty Diagnoses / Procedures Referred By Contac t Referred To Contact Diagnoses Hospital discharge follow-up Weakness Balance problem Procedures CONSULT TO PHYSICAL THERAPY (AG) Rosalinda Olivas APRN.RN ELIGIBILITY [address] [facility] [address] [place] [address] Referral ID Status Reason Start Date Expiration Date Visits Requested Visits Authorized [id number] Ref Not Required PCP Requested Referral 11/12/2022 02/10/2023 1 1 Specialty Diagnoses / Procedures Referred By Contac t Referred To Contact Diagnoses Parkinsonism, unspecified Parkinsonism type (HCC) Procedures PROVIDER ORDERED FOLLOW UP OFFICE/OUTPATIENT [facility] 60-74 MINUTES Patricia Hsu PA-C [address] [place] [address] Referral ID Status Reason Start Date Expiration Date Visits Requested Visits Authorized [id number] Authorized PCP Requested Referral 04/20/2023 01/18/2024 1 1 Specialty Diagnoses / Procedures Referred By Contac t Referred To Contact Diagnoses Atrial flutter, unspecified type (HCC) Traumatic subdural hematoma with loss of consciousness, sequela (HCC) Procedures CONSULT TO ELECTROPHYSIOLOGY OFFICE/OUTPATIENT [facility] MDM 60 MINUTES Anya Huang APRN.RN ELIGIBILITY [address] [place] [address] Referral ID Status Reason Start Date Expiration Date Visits Requested Visits Authorized [id number] Authorized PCP Requested Referral 05/03/2024 05/03/2025 1 1 Specialty Diagnoses / Procedures Referred By Contac t Referred To Contact CT IMAGING Diagnoses SDH (subdural hematoma) (HCC) Procedures CT BRAIN WO IVCON CT HEAD/BRAIN W/O CONTRAST MATERIAL Scott Minor, JURY CONSULTANT.RN ELIGIBILITY [address] [place] [address] [place] [address] Referral ID Status Reason Start Date Expiration Date Visits Requested Visits Authorized [id number] Pending Review Auto-Generat ed Referral 04/23/2024 05/23/2025 1 1 Specialty Diagnoses / Procedures Referred By Contac t Referred To Contact CT IMAGING Diagnoses Traumatic subdural hematoma with loss of consciousness, sequela (HCC) Intracranial meningioma (HCC) Procedures CT BRAIN WO IVCON CT HEAD/BRAIN W/O CONTRAST MATERIAL Agata Del Toro, JURY CONSULTANT.RN ELIGIBILITY [address] [place] [address] [place] [address] Referral ID Status Reason Start Date Expiration Date Visits Requested Visits Authorized [id number] Pending Review Auto-Generat ed Referral 05/09/2024 06/08/2025 1 1 Referral ID Status Reason Start Date Expiration Date Visits Requested Visits Authorized [id number] Authorized Auto-Generat ed Referral 06/20/2024 09/20/2024 1 1 Specialty Diagnoses / Procedures Referred By Contac t Referred To Contact MR IMAGING Diagnoses Silent micro-hemorrhage of brain (HCC) Procedures MRI BRAIN WO IVCON MRI BRAIN BRAIN STEM W/O CONTRAST MATERIAL Anya Huang, JURY CONSULTANT.RN ELIGIBILITY [address] [place] [address] Mr Imaging [id number] Referral ID Status Reason Start Date Expiration Date Visits Requested Visits Authorized [id number] New Request Auto-Generat ed Referral 06/12/2024 07/12/2025 1 1 Referral ID Status Reason Start Date Expiration Date Visits Requested Visits Authorized [id number] Pending Review Auto-Generat ed Referral 10/13/2024 11/12/2025 1 1 Specialty Diagnoses / Procedures Referred By Contac t Referred To Contact Diagnoses Multiple subsegmental pulmonary emboli without acute cor pulmonale (HCC) Acute deep vein thrombosis (DVT) of proximal vein of lower extremity, unspecified laterality (HCC) Procedures CONSULT TO HEMATOLOGY/ONCOLOGY OFFICE/OUTPATIENT [facility] 60 MINUTES Anya Huang, JURY CONSULTANT.RN ELIGIBILITY [address] [place] [address] Referral ID Status Reason Start Date Expiration Date Visits Requested Visits Authorized [id number] Authorized PCP Requested Referral 4 10/26/2025 1 1 Specialty Diagnoses / Procedures Referred By Contac t Referred To Contact MR IMAGING Diagnoses Intracranial meningioma (HCC) Benign neoplasm of meninges (HCC) Procedures MRI BRAIN WO/W IVCON MRI BRAIN BRAIN STEM W/O W/CONTRAST MATERIAL Leonard Patel MD [address] [place] [address] [place] [address] Referral ID Status Reason Start Date Expiration Date Visits Requested Visits Authorized [id number] Authorized Auto-Generat ed Referral 4 11/26/2025 1 1 Specialty Diagnoses / Procedures Referred By Contac t Referred To Contact Diagnoses Depression, unspecified depression type Karthik Holliday, JURY CONSULTANT.RN ELIGIBILITY [address] [place] [address] Referral ID Status Reason Start Date Expiration Date V isits Requested Visits Authorized [id number] Pending Review 1 1 Specialty Diagnoses / Procedures Referred By Contac t Referred To Contact MOLECULAR & FUNCTIONAL IMAGING Diagnoses Multiple subsegmental pulmonary emboli without acute cor pulmonale (HCC) Acute deep vein thrombosis (DVT) of proximal vein of lower extremity, unspecified laterality (HCC) Procedures FACTOR V LEIDEN/PCR F5 COAGULATION FACTOR V ANAL LEIDEN VARIANT Faith Moore, JURY CONSULTANT.RN ELIGIBILITY [address] [place] [address] Molecular & Functional Imaging [address] [place] [address] Referral ID Status Reason Start Date Expiration Date V isits Requested Visits Authorized [id number] Denied PCP Requested Referral Auto-Generated Referral 12/12/2024 03/12/2025 1 0 Chief Complaint and Reason for Visit Chief Complaint [facility] LABWORK [facility] LAB WORK Chief Complaint [facility] LAB WOR K [facility] WORK Chief Complaint Admit Date [facility] LAB WORK November 06 5:00am [facility] January 08, 2025 4: 00am Chief Complaint Admit Date [facility] LAB WORK November 06 5:00am [facility] WORK January 08, 2025 4: 00am LABWORK February 05, 2025 5:0 0am Chief Complaint Admit Date [facility] LAB WORK January 08, 2025 4: 00am LABWORK February 05, 2025 5:0 0am [facility] LAB WORK March 20, 2025 5:0 0am [...] section and content) DATE CREATED AUTHOR 08/30/2021 [facility] DATE CREATED AUTHOR AUTHOR'S ORGANIZ ATION 10/07/2022 [facility] DATE CREATED AUTHOR AUTHOR'S ORGANIZ ATION 05/10/2025 [facility] DATE CREATED AUTHOR AUTHOR'S ORGANIZ ATION 06/09/2025 [facility] DATE CREATED AUTHOR AUTHOR'S ORGANIZ ATION 06/23/2025 [facility] Source Comments (unrecognize d section and content) In the event this informatio n is protected by the Federal Confidentiality of Alcohol and Drug Abuse Patient Records regulations: The Federal rules restrict any use of the information to criminally investigate or prosecute any alcohol or drug abuse patient.[facility] Center[facility] the event this information is protected by the Federal Confidentiality of Alcohol and Drug Abuse Patient Records regulations: The Federal rules restrict any use of the information to criminally investigate or prosecute any alcohol or drug abuse patient.[facility] CenterIn the event this information is protected by the Federal Confidentiality of Alcohol and Drug Abuse Patient Records regulations: The Federal rules restrict any use of the information to criminally investigate or prosecute any alcohol or drug abuse patient.[facility] CenterIn the event this information is protected by the Federal Confidentiality of Alcohol and Drug Abuse Patient Records regulations: The Federal rules restrict any use of the information to criminally investigate or prosecute any alcohol or drug abuse patient.[facility] CenterIn the event this information is protected by the Federal Confidentiality of Alcohol and Drug Abuse Patient Records regulations: The Federal rules restrict any use of the information to criminally investigate or prosecute any alcohol or drug abuse patient.[facility] CenterIn the event this information is protected by the Federal Confidentiality of Alcohol and Drug Abuse Patient Records regulations: The Federal rules restrict any use of the information to criminally investigate or prosecute any alcohol or drug abuse patient.[facility] CenterIn the event this information is protected by the Federal Confidentiality of Alcohol and Drug Abuse Patient Records regulations: The Federal rules restrict any use of the information to criminally investigate or prosecute any alcohol or drug abuse patient.[facility] CenterIn the event this information is protected by the Federal Confidentiality of Alcohol and Drug Abuse Patient Records regulations: The Federal rules restrict any use of the information to criminally investigate or prosecute any alcohol or drug abuse patient.[facility] CenterIn the event this information is protected by the Federal Confidentiality of Alcohol and Drug Abuse Patient Records regulations: The Federal rules restrict any use of the information to criminally investigate or prosecute any alcohol or drug abuse patient.[facility] CenterIn the event this information is protected by the Federal Confidentiality of Alcohol and Drug Abuse Patient Records regulations: The Federal rules restrict any use of the information to criminally investigate or prosecute any alcohol or drug abuse patient.[facility] CenterIn the event this information is protected by the Federal Confidentiality of Alcohol and Drug Abuse Patient Records regulations: The Federal rules restrict any use of the information to criminally investigate or prosecute any alcohol or drug abuse patient.[facility] CenterIn the event this information is protected by the Federal Confidentiality of Alcohol and Drug Abuse Patient Records regulations: The Federal rules restrict any use of the information to criminally investigate or prosecute any alcohol or drug abuse patient.[facility] CenterIn the event this information is protected by the Federal Confidentiality of Alcohol and Drug Abuse Patient Records regulations: The Federal rules restrict any use of the information to criminally investigate or prosecute any alcohol or drug abuse patient.[facility] CenterIn the event this information is protected by the Federal Confidentiality of Alcohol and Drug Abuse Patient Records regulations: The Federal rules restrict any use of the information to criminally investigate or prosecute any alcohol or drug abuse patient.[facility] CenterIn the event this information is protected by the Federal Confidentiality of Alcohol and Drug Abuse Patient Records regulations: The Federal rules restrict any use of the information to criminally investigate or prosecute any alcohol or drug abuse patient.[facility] CenterIn the event this information is protected by the Federal Confidentiality of Alcohol and Drug Abuse Patient Records regulations: The Federal rules restrict any use of the information to criminally investigate or prosecute any alcohol or drug abuse patient.[facility] CenterIn the event this information is protected by the Federal Confidentiality of Alcohol and Drug Abuse Patient Records regulations: The Federal rules restrict any use of the information to criminally investigate or prosecute any alcohol or drug abuse patient.[facility] CenterIn the event this information is protected by the Federal Confidentiality of Alcohol and Drug Abuse Patient Records regulations: The Federal rules restrict any use of the information to criminally investigate or prosecute any alcohol or drug abuse patient.[facility] CenterIn the event this information is protected by the Federal Confidentiality of Alcohol and Drug Abuse Patient Records regulations: The Federal rules restrict any use of the information to criminally investigate or prosecute any alcohol or drug abuse patient.[facility] CenterIn the event this information is protected by the Federal Confidentiality of Alcohol and Drug Abuse Patient Records regulations: The Federal rules restrict any use of the information to criminally investigate or prosecute any alcohol or drug abuse patient.[facility] CenterIn the event this information is protected by the Federal Confidentiality of Alcohol and Drug Abuse Patient Records regulations: The Federal rules restrict any use of the information to criminally investigate or prosecute any alcohol or drug abuse patient.[facility] CenterIn the event this information is protected by the Federal Confidentiality of Alcohol and Drug Abuse Patient Records regulations: The Federal rules restrict any use of the information to criminally investigate or prosecute any alcohol or drug abuse patient.[facility] CenterIn the event this information is protected by the Federal Confidentiality of Alcohol and Drug Abuse Patient Records regulations: The Federal rules restrict any use of the information to criminally investigate or prosecute any alcohol or drug abuse patient.[facility] CenterIn the event this information is protected by the Federal Confidentiality of Alcohol and Drug Abuse Patient Records regulations: The Federal rules restrict any use of the information to criminally investigate or prosecute any alcohol or drug abuse patient.[facility] CenterIn the event this information is protected by the Federal Confidentiality of Alcohol and Drug Abuse Patient Records regulations: The Federal rules restrict any use of the information to criminally investigate or prosecute any alcohol or drug abuse patient.[facility] CenterIn the event this information is protected by the Federal Confidentiality of Alcohol and Drug Abuse Patient Records regulations: The Federal rules restrict any use of the information to criminally investigate or prosecute any alcohol or drug abuse patient.[facility] CenterIn the event this information is protected by the Federal Confidentiality of Alcohol and Drug Abuse Patient Records regulations: The Federal rules restrict any use of the information to criminally investigate or prosecute any alcohol or drug abuse patient.[facility] CenterIn the event this information is protected by the Federal Confidentiality of Alcohol and Drug Abuse Patient Records regulations: The Federal rules restrict any use of the information to criminally investigate or prosecute any alcohol or drug abuse patient.[facility] CenterIn the event this information is protected by the Federal Confidentiality of Alcohol and Drug Abuse Patient Records regulations: The Federal rules restrict any use of the information to criminally investigate or prosecute any alcohol or drug abuse patient.[facility] CenterIn the event this information is protected by the Federal Confidentiality of Alcohol and Drug Abuse Patient Records regulations: The Federal rules restrict any use of the information to criminally investigate or prosecute any alcohol or drug abuse patient.[facility] CenterIn the event this information is protected by the Federal Confidentiality of Alcohol and Drug Abuse Patient Records regulations: The Federal rules restrict any use of the information to criminally investigate or prosecute any alcohol or drug abuse patient.[facility] CenterIn the event this information is protected by the Federal Confidentiality of Alcohol and Drug Abuse Patient Records regulations: The Federal rules restrict any use of the information to criminally investigate or prosecute any alcohol or drug abuse patient.[facility] CenterIn the event this information is protected by the Federal Confidentiality of Alcohol and Drug Abuse Patient Records regulations: The Federal rules restrict any use of the information to criminally investigate or prosecute any alcohol or drug abuse patient.[facility] CenterIn the event this information is protected by the Federal Confidentiality of Alcohol and Drug Abuse Patient Records regulations: The Federal rules restrict any use of the information to criminally investigate or prosecute any alcohol or drug abuse patient.[facility] CenterIn the event this information is protected by the Federal Confidentiality of Alcohol and Drug Abuse Patient Records regulations: The Federal rules restrict any use of the information to criminally investigate or prosecute any alcohol or drug abuse patient.[facility] CenterIn the event this information is protected by the Federal Confidentiality of Alcohol and Drug Abuse Patient Records regulations: The Federal rules restrict any use of the information to criminally investigate or prosecute any alcohol or drug abuse patient.[facility] CenterIn the event this information is protected by the Federal Confidentiality of Alcohol and Drug Abuse Patient Records regulations: The Federal rules restrict any use of the information to criminally investigate or prosecute any alcohol or drug abuse patient.[facility] CenterIn the event this information is protected by the Federal Confidentiality of Alcohol and Drug Abuse Patient Records regulations: The Federal rules restrict any use of the information to criminally investigate or prosecute any alcohol or drug abuse patient.[facility] CenterIn the event this information is protected by the Federal Confidentiality of Alcohol and Drug Abuse Patient Records regulations: The Federal rules restrict any use of the information to criminally investigate or prosecute any alcohol or drug abuse patient.[facility] CenterIn the event this information is protected by the Federal Confidentiality of Alcohol and Drug Abuse Patient Records regulations: The Federal rules restrict any use of the information to criminally investigate or prosecute any alcohol or drug abuse patient.[facility] CenterIn the event this information is protected by the Federal Confidentiality of Alcohol and Drug Abuse Patient Records regulations: The Federal rules restrict any use of the information to criminally investigate or prosecute any alcohol or drug abuse patient.[facility] CenterIn the event this information is protected by the Federal Confidentiality of Alcohol and Drug Abuse Patient Records regulations: The Federal rules restrict any use of the information to criminally investigate or prosecute any alcohol or drug abuse patient.[facility] CenterIn the event this information is protected by the Federal Confidentiality of Alcohol and Drug Abuse Patient Records regulations: The Federal rules restrict any use of the information to criminally investigate or prosecute any alcohol or drug abuse patient.[facility] CenterIn the event this information is protected by the Federal Confidentiality of Alcohol and Drug Abuse Patient Records regulations: The Federal rules restrict any use of the information to criminally investigate or prosecute any alcohol or drug abuse patient.[facility] CenterIn the event this information is protected by the Federal Confidentiality of Alcohol and Drug Abuse Patient Records regulations: The Federal rules restrict any use of the information to criminally investigate or prosecute any alcohol or drug abuse patient.[facility] CenterIn the event this information is protected by the Federal Confidentiality of Alcohol and Drug Abuse Patient Records regulations: The Federal rules restrict any use of the information to criminally investigate or prosecute any alcohol or drug abuse patient.[facility] CenterIn the event this information is protected by the Federal Confidentiality of Alcohol and Drug Abuse Patient Records regulations: The Federal rules restrict any use of the information to criminally investigate or prosecute any alcohol or drug abuse patient.[facility] CenterIn the event this information is protected by the Federal Confidentiality of Alcohol and Drug Abuse Patient Records regulations: The Federal rules restrict any use of the information to criminally investigate or prosecute any alcohol or drug abuse patient.[facility] CenterIn the event this information is protected by the Federal Confidentiality of Alcohol and Drug Abuse Patient Records regulations: The Federal rules restrict any use of the information to criminally investigate or prosecute any alcohol or drug abuse patient.[facility] CenterIn the event this information is protected by the Federal Confidentiality of Alcohol and Drug Abuse Patient Records regulations: The Federal rules restrict any use of the information to criminally investigate or prosecute any alcohol or drug abuse patient.[facility] CenterIn the event this information is protected by the Federal Confidentiality of Alcohol and Drug Abuse Patient Records regulations: The Federal rules restrict any use of the information to criminally investigate or prosecute any alcohol or drug abuse patient.[facility] CenterIn the event this information is protected by the Federal Confidentiality of Alcohol and Drug Abuse Patient Records regulations: The Federal rules restrict any use of the information to criminally investigate or prosecute any alcohol or drug abuse patient.[facility] CenterIn the event this information is protected by the Federal Confidentiality of Alcohol and Drug Abuse Patient Records regulations: The Federal rules restrict any use of the information to criminally investigate or prosecute any alcohol or drug abuse patient.[facility] CenterIn the event this information is protected by the Federal Confidentiality of Alcohol and Drug Abuse Patient Records regulations: The Federal rules restrict any use of the information to criminally investigate or prosecute any alcohol or drug abuse patient.[facility] CenterIn the event this information is protected by the Federal Confidentiality of Alcohol and Drug Abuse Patient Records regulations: The Federal rules restrict any use of the information to criminally investigate or prosecute any alcohol or drug abuse patient.[facility] CenterIn the event this information is protected by the Federal Confidentiality of Alcohol and Drug Abuse Patient Records regulations: The Federal rules restrict any use of the information to criminally investigate or prosecute any alcohol or drug abuse patient.[facility] CenterIn the event this information is protected by the Federal Confidentiality of Alcohol and Drug Abuse Patient Records regulations: The Federal rules restrict any use of the information to criminally investigate or prosecute any alcohol or drug abuse patient.[facility] CenterIn the event this information is protected by the Federal Confidentiality of Alcohol and Drug Abuse Patient Records regulations: The Federal rules restrict any use of the information to criminally investigate or prosecute any alcohol or drug abuse patient.[facility] CenterIn the event this information is protected by the Federal Confidentiality of Alcohol and Drug Abuse Patient Records regulations: The Federal rules restrict any use of the information to criminally investigate or prosecute any alcohol or drug abuse patient.[facility] CenterIn the event this information is protected by the Federal Confidentiality of Alcohol and Drug Abuse Patient Records regulations: The Federal rules restrict any use of the information to criminally investigate or prosecute any alcohol or drug abuse patient.[facility] CenterIn the event this information is protected by the Federal Confidentiality of Alcohol and Drug Abuse Patient Records regulations: The Federal rules restrict any use of the information to criminally investigate or prosecute any alcohol or drug abuse patient.[facility] CenterIn the event this information is protected by the Federal Confidentiality of Alcohol and Drug Abuse Patient Records regulations: The Federal rules restrict any use of the information to criminally investigate or prosecute any alcohol or drug abuse patient.[facility] CenterIn the event this information is protected by the Federal Confidentiality of Alcohol and Drug Abuse Patient Records regulations: The Federal rules restrict any use of the information to criminally investigate or prosecute any alcohol or drug abuse patient.[facility] CenterIn the event this information is protected by the Federal Confidentiality of Alcohol and Drug Abuse Patient Records regulations: The Federal rules restrict any use of the information to criminally investigate or prosecute any alcohol or drug abuse patient.[facility] CenterIn the event this information is protected by the Federal Confidentiality of Alcohol and Drug Abuse Patient Records regulations: The Federal rules restrict any use of the information to criminally investigate or prosecute any alcohol or drug abuse patient.[facility] CenterIn the event this information is protected by the Federal Confidentiality of Alcohol and Drug Abuse Patient Records regulations: The Federal rules restrict any use of the information to criminally investigate or prosecute any alcohol or drug abuse patient.[facility] CenterIn the event this information is protected by the Federal Confidentiality of Alcohol and Drug Abuse Patient Records regulations: The Federal rules restrict any use of the information to criminally investigate or prosecute any alcohol or drug abuse patient.[facility] CenterIn the event this information is protected by the Federal Confidentiality of Alcohol and Drug Abuse Patient Records regulations: The Federal rules restrict any use of the information to criminally investigate or prosecute any alcohol or drug abuse patient.[facility] CenterIn the event this information is protected by the Federal Confidentiality of Alcohol and Drug Abuse Patient Records regulations: The Federal rules restrict any use of the information to criminally investigate or prosecute any alcohol or drug abuse patient.[facility] CenterIn the event this information is protected by the Federal Confidentiality of Alcohol and Drug Abuse Patient Records regulations: The Federal rules restrict any use of the information to criminally investigate or prosecute any alcohol or drug abuse patient.[facility] CenterIn the event this information is protected by the Federal Confidentiality of Alcohol and Drug Abuse Patient Records regulations: The Federal rules restrict any use of the information to criminally investigate or prosecute any alcohol or drug abuse patient.[facility] CenterIn the event this information is protected by the Federal Confidentiality of Alcohol and Drug Abuse Patient Records regulations: The Federal rules restrict any use of the information to criminally investigate or prosecute any alcohol or drug abuse patient.[facility] CenterIn the event this information is protected by the Federal Confidentiality of Alcohol and Drug Abuse Patient Records regulations: The Federal rules restrict any use of the information to criminally investigate or prosecute any alcohol or drug abuse patient.[facility] CenterIn the event this information is protected by the Federal Confidentiality of Alcohol and Drug Abuse Patient Records regulations: The Federal rules restrict any use of the information to criminally investigate or prosecute any alcohol or drug abuse patient.[facility] CenterIn the event this information is protected by the Federal Confidentiality of Alcohol and Drug Abuse Patient Records regulations: The Federal rules restrict any use of the information to criminally investigate or prosecute any alcohol or drug abuse patient.[facility] CenterIn the event this information is protected by the Federal Confidentiality of Alcohol and Drug Abuse Patient Records regulations: The Federal rules restrict any use of the information to criminally investigate or prosecute any alcohol or drug abuse patient.[facility] CenterIn the event this information is protected by the Federal Confidentiality of Alcohol and Drug Abuse Patient Records regulations: The Federal rules restrict any use of the information to criminally investigate or prosecute any alcohol or drug abuse patient.[facility] CenterIn the event this information is protected by the Federal Confidentiality of Alcohol and Drug Abuse Patient Records regulations: The Federal rules restrict any use of the information to criminally investigate or prosecute any alcohol or drug abuse patient.[facility] CenterIn the event this information is protected by the Federal Confidentiality of Alcohol and Drug Abuse Patient Records regulations: The Federal rules restrict any use of the information to criminally investigate or prosecute any alcohol or drug abuse patient.[facility] CenterIn the event this information is protected by the Federal Confidentiality of Alcohol and Drug Abuse Patient Records regulations: The Federal rules restrict any use of the information to criminally investigate or prosecute any alcohol or drug abuse patient.[facility] CenterIn the event this information is protected by the Federal Confidentiality of Alcohol and Drug Abuse Patient Records regulations: The Federal rules restrict any use of the information to criminally investigate or prosecute any alcohol or drug abuse patient.[facility] CenterIn the event this information is protected by the Federal Confidentiality of Alcohol and Drug Abuse Patient Records regulations: The Federal rules restrict any use of the information to criminally investigate or prosecute any alcohol or drug abuse patient.[facility] CenterIn the event this information is protected by the Federal Confidentiality of Alcohol and Drug Abuse Patient Records regulations: The Federal rules restrict any use of the information to criminally investigate or prosecute any alcohol or drug abuse patient.[facility] CenterIn the event this information is protected by the Federal Confidentiality of Alcohol and Drug Abuse Patient Records regulations: The Federal rules restrict any use of the information to criminally investigate or prosecute any alcohol or drug abuse patient.[facility] CenterIn the event this information is protected by the Federal Confidentiality of Alcohol and Drug Abuse Patient Records regulations: The Federal rules restrict any use of the information to criminally investigate or prosecute any alcohol or drug abuse patient.[facility] CenterIn the event this information is protected by the Federal Confidentiality of Alcohol and Drug Abuse Patient Records regulations: The Federal rules restrict any use of the information to criminally investigate or prosecute any alcohol or drug abuse patient.[facility] CenterIn the event this information is protected by the Federal Confidentiality of Alcohol and Drug Abuse Patient Records regulations: The Federal rules restrict any use of the information to criminally investigate or prosecute any alcohol or drug abuse patient.[facility] CenterIn the event this information is protected by the Federal Confidentiality of Alcohol and Drug Abuse Patient Records regulations: The Federal rules restrict any use of the information to criminally investigate or prosecute any alcohol or drug abuse patient.[facility] CenterIn the event this information is protected by the Federal Confidentiality of Alcohol and Drug Abuse Patient Records regulations: The Federal rules restrict any use of the information to criminally investigate or prosecute any alcohol or drug abuse patient.[facility] CenterIn the event this information is protected by the Federal Confidentiality of Alcohol and Drug Abuse Patient Records regulations: The Federal rules restrict any use of the information to criminally investigate or prosecute any alcohol or drug abuse patient.[facility] CenterIn the event this information is protected by the Federal Confidentiality of Alcohol and Drug Abuse Patient Records regulations: The Federal rules restrict any use of the information to criminally investigate or prosecute any alcohol or drug abuse patient.[facility] CenterIn the event this information is protected by the Federal Confidentiality of Alcohol and Drug Abuse Patient Records regulations: The Federal rules restrict any use of the information to criminally investigate or prosecute any alcohol or drug abuse patient.[facility] Care Teams (unrecognized sec tion and content) Gate Mortiser Operator Relationship Specialty Start Date End Date Ángel Crawford MD [address] [id number] PCP - General Family Practice 01/19/22 Paul Lorenz MD 1 [place], [place] [id number] PCP Resident Family Practice 01/19/22 Gate Mortiser Operator Relationship Specialty Start Date End Date Clint Euceda Jr., MD [address] [place] [address] PCP - General Family Practice 03/09/22 Paul Lorenz MD 1 [place] [address] PCP Resident Family Practice 01/19/22 Gate Mortiser Operator Relationship Specialty Start Date End Date Clint Euceda Jr., MD [address] [place] [address] PCP - General Family Practice 03/09/22 Paul Lorenz MD [address] [place], [place] [id number] PCP Resident Family Practice 01/19/22 Gate Mortiser Operator Relationship Specialty Start Date End Date Clint Euceda Jr., MD [address] [place] [address] PCP - General Family Practice 03/09/22 Paul Lorenz MD 1 [place] [address] PCP Resident Family Practice 01/19/22 Gate Mortiser Operator Relationship Specialty Start Date End Date Clint Euceda Jr., MD [address] [place] [address] PCP - General Family Medicine 03/09/22 Gate Mortiser Operator Relationship Specialty Start Date End Date Clint Euceda Jr., MD [address] [place] [address] PCP - General Family Medicine 03/09/22 Gate Mortiser Operator Relationship Specialty Start Date End Date Clint Euceda Jr., MD [address] [place] [address] PCP - General Family Medicine 03/09/22 Moo Dumont, campground manager Associate Project Manager 09/09/22 Gate Mortiser Operator Relationship Specialty Start Date End Date Clint Euceda Jr., MD [address] [place] [address] PCP - General Family Medicine 03/09/22 Moo Dumont, campground manager Associate Project Manager 09/09/22 Gate Mortiser Operator Relationship Specialty Start Date End Date Clint Euceda Jr., MD [address] [place] [address] PCP - General Family Medicine 03/09/22 Moo Dumont, campground manager Associate Project Manager 09/09/22 Gate Mortiser Operator Relationship Specialty Start Date End Date Clint Euceda Jr., MD [address] [place] [address] PCP - General Family Medicine 03/09/22 Moo Dumont, campground manager Associate Project Manager 09/09/22 Gate Mortiser Operator Relationship Specialty Start Date End Date Clint Euceda Jr., MD [address] [place] [address] PCP - General Family Medicine 03/09/22 Moo Dumont, campground manager Associate Project Manager 09/09/22 11/04/22 Gate Mortiser Operator Relationship Specialty Start Date End Date Clint Euceda Jr., MD [address] [place] [address] PCP - General Family Medicine 03/09/22 Moo Dumont, campground manager Associate Project Manager 09/09/22 11/04/22 Gate Mortiser Operator Relationship Specialty Start Date End Date Clint Euceda Jr., MD [address] [place] [address] PCP - General Family Medicine 03/09/22 Moo Dumont, campground manager Associate Project Manager 09/09/22 11/04/22 Gate Mortiser Operator Relationship Specialty Start Date End Date Clint Euceda Jr., MD [address] [place] [address] PCP - General Family Medicine 03/09/22 Dayan Mina, RN [address] [facility] [place] [address] Primary Care Associate Project Manager 11/03/22 12/04/22 Gate Mortiser Operator Relationship Specialty Start Date End Date Clint Euceda Jr., MD [address] [place] [address] PCP - General Family Medicine 03/09/22 Dayan Mina, RN [address] [facility] [place] [address] Primary Care Associate Project Manager 11/03/22 12/04/22 Gate Mortiser Operator Relationship Specialty Start Date End Date Clint Euceda Jr., MD [address] [place] [address] PCP - General Family Medicine 03/09/22 Dayan Mina, RN [address] [facility] [place] [address] Primary Care Associate Project Manager 11/03/22 12/04/22 Gate Mortiser Operator Relationship Specialty Start Date End Date Clint Euceda Jr., MD [address] [place] [address] PCP - General Family Medicine 03/09/22 Dayan Mina, RN [address] [facility] [place] [address] Primary Care Associate Project Manager 11/03/22 12/04/22 Gate Mortiser Operator Relationship Specialty Start Date End Date Clint Euceda Jr., MD [address] [place] [address] PCP - General Family Medicine 03/09/22 Dayan Mina, RN [address] [facility] [place] [address] Primary Care Associate Project Manager 11/03/22 02/01/23 Gate Mortiser Operator Relationship Specialty Start Date End Date Clint Euceda Jr., MD [address] [place] [address] PCP - General Family Medicine 03/09/22 Dayan Mina, RN [address] [place] [address] Primary Care Associate Project Manager 11/03/22 02/01/23 Gate Mortiser Operator Relationship Specialty Start Date End Date Clint Euceda Jr., MD [address] [place] [address] PCP - General Family Medicine 03/09/22 Dayan Mina, RN [address] [facility] [place] [address] Primary Care Associate Project Manager 11/03/22 02/01/23 Gate Mortiser Operator Relationship Specialty Start Date End Date Clint Euceda Jr., MD [address] [place] [address] PCP - General Family Medicine 03/09/22 Dayan Mina, RN [address] [facility] [place] [address] Primary Care Associate Project Manager 11/03/22 02/01/23 Gate Mortiser Operator Relationship Specialty Start Date End Date Clint Euceda Jr., MD [address] [place] [address] PCP - General Family Medicine 03/09/22 Gate Mortiser Operator Relationship Specialty Start Date End Date Clint Euceda Jr., MD [address] [place] [address] PCP - General Family Medicine 03/09/22 Moo Dumont, campground manager Associate Project Manager 09/09/22 11/03/22 Dayan Mina, RN [address] [place] [id number] Primary Care Associate Project Manager 11/03/22 02/01/23 Gate Mortiser Operator Relationship Specialty Start Date End Date Karthik Holliday APRN.RN ELIGIBILITY [address] [place], [place] [id number] PCP - General Family Medicine 02/01/24 Josse De Oliveira MD [address] [place] [address] Specialty Email Marketing Specialist Neurology 10/27/23 Patricia Hsu PA-C [address] [place] [address] Specialty Email Marketing Specialist Neurology 10/27/23 Gate Mortiser Operator Relationship Specialty Start Date End Date Karthik Holliday APRN.RN ELIGIBILITY [address] [place], [place] [id number] PCP - General Family Medicine 02/01/24 Josse De Oliveira MD [address] [place] [address] Specialty Email Marketing Specialist Neurology 10/27/23 Patricia Hsu PA-C [address] [place] [address] Specialty Email Marketing Specialist Neurology 10/27/23 Gate Mortiser Operator Relationship Specialty Start Date End Date Karthik Holliday APRN.RN ELIGIBILITY [address] [place] [id number] PCP - General Family Medicine 02/01/24 Josse De Oliveira MD [address] [place], [place] [id number] Specialty Email Marketing Specialist Neurology 10/27/23 Patricia Hsu PA-C [address] [place], [place] [id number] Specialty Email Marketing Specialist Neurology 10/27/23 Gate Mortiser Operator Relationship Specialty Start Date End Date Karthik Holliday, JURY CONSULTANT.RN ELIGIBILITY [address] [place], [place] [id number] PCP - General Family Medicine 02/01/24 Josse De Oliveira MD [address] [place] [address] Specialty Email Marketing Specialist Neurology 10/27/23 Patricia Hsu PA-C [address] [place] [address] Specialty Email Marketing Specialist Neurology 10/27/23 Gate Mortiser Operator Relationship Specialty Start Date End Date Karthik Holliday, JURY CONSULTANT.RN ELIGIBILITY [address] [place] [address] PCP - General Family Medicine 02/01/24 Josse De Oliveira MD [address] [place] [address] Specialty Email Marketing Specialist Neurology 10/27/23 Patricia Hsu PA-C [address] [place] [address] Specialty Email Marketing Specialist Neurology 10/27/23 Gate Mortiser Operator Relationship Specialty Start Date End Date Karthik Holliday APRN.RN ELIGIBILITY [facility] [place] [address] PCP - General Family Medicine 02/01/24 Josse De Oliveira MD [address] [place] [address] Specialty Email Marketing Specialist Neurology 10/27/23 Patricia Hsu PA-C [address] [place] [address] Specialty Email Marketing Specialist Neurology 10/27/23 Gate Mortiser Operator Relationship Specialty Start Date End Date Karthik Holliday, JURY CONSULTANT.RN ELIGIBILITY [address] [place] [address] PCP - General Family Medicine 02/01/24 Josse De Oliveira MD [address] [place] [address] Specialty Email Marketing Specialist Neurology 10/27/23 Patricia Hsu PA-C [address] [place] [address] Specialty Email Marketing Specialist Neurology 10/27/23 Gate Mortiser Operator Relationship Specialty Start Date End Date Karthik Holliday APRN.RN ELIGIBILITY [address] [place] [id number] PCP - General Family Medicine 02/01/24 Josse De Oliveira MD [address] [place] [address] Specialty Email Marketing Specialist Neurology 10/27/23 Patricia Hsu PA-C [address] [place] [address] Specialty Email Marketing Specialist Neurology 10/27/23 Gate Mortiser Operator Relationship Specialty Start Date End Date Karthik Holliday, JURY CONSULTANT.RN ELIGIBILITY [address] [place] [address] PCP - General Family Medicine 02/01/24 Josse De Oliveira MD [address] [place] [place], [place] [id number] Specialty Email Marketing Specialist Neurology 10/27/23 Patricia Hsu PA-C [address] [place] [address] Specialty Email Marketing Specialist Neurology 10/27/23 Gate Mortiser Operator Relationship Specialty Start Date End Date Karthik Holliday, JURY CONSULTANT.RN ELIGIBILITY [facility] [place] [address] PCP - General Family Medicine 02/01/24 Josse De Oliveira MD [address] [place] [place], [place] [phone] Specialty Email Marketing Specialist Neurology 10/27/23 Patricia Hsu PA-C [address] [place] [address] Specialty Email Marketing Specialist Neurology 10/27/23 Jed Wolf MD [address] [place], [place] [id number] Primary Staff Physician Cardiology 05/08/24 Gate Mortiser Operator Relationship Specialty Start Date End Date Karthik Holliday, JURY CONSULTANT.RN ELIGIBILITY [address] [place], [place] [address]063 PCP - General Family Medicine 02/01/24 Josse De Oliveira MD [address] [place] [address] Specialty Email Marketing Specialist Neurology 10/27/23 Patricia Hsu PA-C [address] [place] [address] Specialty Email Marketing Specialist Neurology 10/27/23 Jed Wolf MD [address] [facility] [place] [address] Primary Staff Physician Cardiology 05/08/24 Gate Mortiser Operator Relationship Specialty Start Date End Date Karthik Holliday, JURY CONSULTANT.RN ELIGIBILITY [facility] [place], [place] [address] PCP - General Family Medicine 02/01/24 Josse De Oliveira MD [address] [place] [address] Specialty Email Marketing Specialist Neurology 10/27/23 Patricia Hsu PA-C [address] [place] [address] Specialty Email Marketing Specialist Neurology 10/27/23 Jed Wolf MD [address] [place] [address] Primary Staff Physician Cardiology 05/08/24 Gate Mortiser Operator Relationship Specialty Start Date End Date Karthik Holliday, JURY CONSULTANT.RN ELIGIBILITY [address] [place] [address] PCP - General Family Medicine 02/01/24 Josse De Oliveira MD [address] [place] [address] Specialty Email Marketing Specialist Neurology 10/27/23 Patricia Hsu PA-C [address] [place], [place] [id number] Specialty Email Marketing Specialist Neurology 10/27/23 Jed Wolf MD [address] [place] [address] Primary Staff Physician Cardiology 05/08/24 Gate Mortiser Operator Relationship Specialty Start Date End Date Karthik Holliday, JURY CONSULTANT.RN ELIGIBILITY [address] [place], [place] [address] PCP - General Family Medicine 02/01/24 Josse De Oliveira MD [address] [place] [address] Specialty Email Marketing Specialist Neurology 10/27/23 Patricia Hsu PA-C [address] [place] [address] Specialty Email Marketing Specialist Neurology 10/27/23 Jed Wolf MD [address] [place] [address] Primary Staff Physician Cardiology 05/08/24 Gate Mortiser Operator Relationship Specialty Start Date End Date Karthik Holliday, JURY CONSULTANT.RN ELIGIBILITY [address] [place] [id number] PCP - General Family Medicine 02/01/24 Josse De Oliveira MD [address] [place] [address] Specialty Email Marketing Specialist Neurology 10/27/23 Patricia Hsu PA-C [address] [place] [address] Specialty Email Marketing Specialist Neurology 10/27/23 Jed Wolf MD [address] [place] [address] Primary Staff Physician Cardiology 05/08/24 Gate Mortiser Operator Relationship Specialty Start Date End Date Karthik Holliday, JURY CONSULTANT.RN ELIGIBILITY [address] [place] [id number] PCP - General Family Medicine 02/01/24 Josse De Oliveira MD [address] [place] [address] Specialty Email Marketing Specialist Neurology 10/27/23 Patricia Hsu PA-C [address] [place] [address] Specialty Email Marketing Specialist Neurology 10/27/23 Jed Wolf MD [address] [place] [address] Primary Staff Physician Cardiology 05/08/24 Gate Mortiser Operator Relationship Specialty Start Date End Date Karthik Holliday, JURY CONSULTANT.RN ELIGIBILITY [facility] [place], [place] [address] PCP - General Family Medicine 02/01/24 Josse De Oliveira MD [address] [place] [address] Specialty Email Marketing Specialist Neurology 10/27/23 Patricia Hsu PA-C [address] [place] [address] Specialty Email Marketing Specialist Neurology 10/27/23 Jed Wolf MD [address] [place] [address] Primary Staff Physician Cardiology 05/08/24 Gate Mortiser Operator Relationship Specialty Start Date End Date Karthik Holliday, JURY CONSULTANT.RN ELIGIBILITY [address] [place] [address] [id number] PCP - General Family Medicine 02/01/24 Josse De Oliveira MD [address] [place] [address] Specialty Email Marketing Specialist Neurology 10/27/23 Patricia Hsu PA-C [address] [place] [address] Specialty Email Marketing Specialist Neurology 10/27/23 Jed Wolf MD [address] [place], [place] [id number] Primary Staff Physician Cardiology 05/08/24 Gate Mortiser Operator Relationship Specialty Start Date End Date Karthik Holliday, JURY CONSULTANT.RN ELIGIBILITY [address] [place] [address] PCP - General Family Medicine 02/01/24 Josse De Oliveira MD [address] [place] [address] Specialty Email Marketing Specialist Neurology 10/27/23 Patricia Hsu PA-C [address] [place] [address] Specialty Email Marketing Specialist Neurology 10/27/23 Jed Wolf MD [address] [place] [address] Primary Staff Physician Cardiology 05/08/24 Gate Mortiser Operator Relationship Specialty Start Date End Date Karthik Holliday, JURY CONSULTANT.RN ELIGIBILITY [address] [place] [address] PCP - General Family Medicine 02/01/24 Josse De Oliveira MD [address] [place] [address] Specialty Email Marketing Specialist Neurology 10/27/23 Patricia Hsu PA-C [address] [place] [address] Specialty Email Marketing Specialist Neurology 10/27/23 Jed Wolf MD [address] [facility] [place] [phone] Primary Staff Physician Cardiology 05/08/24 Gate Mortiser Operator Relationship Specialty Start Date End Date Karthik Hloliday, JURY CONSULTANT.RN ELIGIBILITY [address] [place], [place] 487133 PCP - General Family Medicine 02/01/24 Josse De Oliveira MD [address] [place] [address] Specialty Email Marketing Specialist Neurology 10/27/23 Patricia Hsu PA-C [address] [place] [address] Specialty Email Marketing Specialist Neurology 10/27/23 Jed Wolf MD [address] [place] [address] Primary Staff Physician Cardiology 05/08/24 Dayan Mina, RN Primary Care Associate Project Manager 09/11/24 Gate Mortiser Operator Relationship Specialty Start Date End Date Karthik Holliday, JURY CONSULTANT.RN ELIGIBILITY [facility] [place], [place] 568313 PCP - General Family Medicine 02/01/24 Josse De Oliveira MD [address] [place] [address] Specialty Email Marketing Specialist Neurology 10/27/23 Patricia Hsu PA-C [address] [place] [address] Specialty Email Marketing Specialist Neurology 10/27/23 Jed Wolf MD [address] [place] [address] Primary Staff Physician Cardiology 05/08/24 Dayan Mina, RN Primary Care Associate Project Manager 09/11/24 Gate Mortiser Operator Relationship Specialty Start Date End Date Karthik Holliday, JURY CONSULTANT.RN ELIGIBILITY [address] [place] [address] [id number] PCP - General Family Medicine 02/01/24 Josse De Oliveira MD [address] [place], [place] [id number] Specialty Email Marketing Specialist Neurology 10/27/23 Patricia Hsu PA-C [address] [place] [address] Specialty Email Marketing Specialist Neurology 10/27/23 Jed Wolf MD [address] [place], [place] [phone] Primary Staff Physician Cardiology 05/08/24 Dayan Mina, RN Primary Care Associate Project Manager 09/11/24 Gate Mortiser Operator Relationship Specialty Start Date End Date Karthik Holliday, JURY CONSULTANT.RN ELIGIBILITY [address] [place], [place] 647953 PCP - General Family Medicine 02/01/24 Josse De Oliveira MD [address] [place] [address] Specialty Email Marketing Specialist Neurology 10/27/23 Patricia Hsu PA-C [address] [place] [address] Specialty Email Marketing Specialist Neurology 10/27/23 Jed Wolf MD [address] [place] [address] Primary Staff Physician Cardiology 05/08/24 Dayan Mina, RN Primary Care Associate Project Manager 09/11/24 Gate Mortiser Operator Relationship Specialty Start Date End Date Karthik Holliday, JURY CONSULTANT.RN ELIGIBILITY [facility] [place], [place] 970633 PCP - General Family Medicine 02/01/24 Josse De Oliveira MD [address] [place] [address] Specialty Email Marketing Specialist Neurology 10/27/23 Patricia Hsu PA-C [address] [place] [address] Specialty Email Marketing Specialist Neurology 10/27/23 Jed Wolf MD [address] [place] [address] Primary Staff Physician Cardiology 05/08/24 Dayan Mina, RN Primary Care Associate Project Manager 09/11/24 Gate Mortiser Operator Relationship Specialty Start Date End Date Karthik Holliday, JURY CONSULTANT.RN ELIGIBILITY [address] [place], [place] 470883 PCP - General Family Medicine 02/01/24 Josse De Oliveira MD [address] [place] [address] Specialty Email Marketing Specialist Neurology 10/27/23 Patricia Hsu PA-C [address] [place] [address] Specialty Email Marketing Specialist Neurology 10/27/23 Jed Wolf MD [address] [facility] [place] [address] Primary Staff Physician Cardiology 05/08/24 Dayan Mina RN Primary Care Associate Project Manager 09/11/24 Gate Mortiser Operator Relationship Specialty Start Date End Date Karthik Holliday, JURY CONSULTANT.RN ELIGIBILITY [address] [place] [address] [id number] PCP - General Family Medicine 02/01/24 Josse De Oliveira MD [address] [place] [address] Specialty Email Marketing Specialist Neurology 10/27/23 Patricia Hsu PA-C [address] [facility] [address] Specialty Email Marketing Specialist Neurology 10/27/23 Jed Wolf MD [address] [place] [address] Primary Staff Physician Cardiology 05/08/24 Gate Mortiser Operator Relationship Specialty Start Date End Date Karthik Holliday, JURY CONSULTANT.RN ELIGIBILITY [address] [place] [address] PCP - General Family Medicine 02/01/24 Josse De Oliveira MD [address] [place] [address] Specialty Email Marketing Specialist Neurology 10/27/23 Patricia Hsu PA-C [address] [place] [address] Specialty Email Marketing Specialist Neurology 10/27/23 Jed Wolf MD [address] [place] [address] Primary Staff Physician Cardiology 05/08/24 Gate Mortiser Operator Relationship Specialty Start Date End Date Karthik Holliday, JURY CONSULTANT.RN ELIGIBILITY [address] [place] [address] [id number] PCP - General Family Medicine 02/01/24 Josse De Oliveira MD [address] [place] [address] Specialty Email Marketing Specialist Neurology 10/27/23 Patricia Hsu PA-C [address] [place] [address] Specialty Email Marketing Specialist Neurology 10/27/23 Jed Wolf MD [address] [place] [address] Primary Staff Physician Cardiology 05/08/24 Gate Mortiser Operator Relationship Specialty Start Date End Date Karthik Holliday, JURY CONSULTANT.RN ELIGIBILITY [address] [place] [address] PCP - General Family Medicine 02/01/24 Josse De Oliveira MD [address] [place] [address] Specialty Email Marketing Specialist Neurology 10/27/23 Patricia Hsu PA-C [address] [place] [address] Specialty Email Marketing Specialist Neurology 10/27/23 Jed Wolf MD [address] [place] [address] Primary Staff Physician Cardiology 05/08/24 Gate Mortiser Operator Relationship Specialty Start Date End Date Karthik Holliday APRN.RN ELIGIBILITY [address] [place] [address] [id number] PCP - General Family Medicine 02/01/24 Josse De Oliveira MD [address] [place] [address] Specialty Email Marketing Specialist Neurology 10/27/23 Patricia Hsu PA-C [address] [place] [address] Specialty Email Marketing Specialist Neurology 10/27/23 Jed Wolf MD [address] [place] [address] Primary Staff Physician Cardiology 05/08/24 Gate Mortiser Operator Relationship Specialty Start Date End Date Karthik Holliday APRN.RN ELIGIBILITY [address] [place] [address] [id number] PCP - General Family Medicine 02/01/24 Josse De Oliveira MD [address] [place] [address] Specialty Email Marketing Specialist Neurology 10/27/23 Patricia Hsu PA-C [address] [place] [address] Specialty Email Marketing Specialist Neurology 10/27/23 Gate Mortiser Operator Relationship Specialty Start Date End Date Karthik Holliday, JURY CONSULTANT.RN ELIGIBILITY [address] [place] [address] [phone] PCP - General Family Medicine 02/01/24 Josse De Oliveira MD [address] [place], [place] [phone] Specialty Email Marketing Specialist Neurology 10/27/23 Patricia Hsu PA-C [address] [place] [address] Specialty Email Marketing Specialist Neurology 10/27/23 Jed Wolf MD [address] [place], [place] 8006295 Primary Staff Physician Cardiology 05/08/24 Gate Mortiser Operator Relationship Specialty Start Date End Date Karthik Holliday, JURY CONSULTANT.RN ELIGIBILITY [facility] [place], [place] 550913 PCP - General Family Medicine 02/01/24 Josse De Oliveira MD [address] [place], [place] [phone] Specialty Email Marketing Specialist Neurology 10/27/23 Patricia Hsu PA-C [address] [place] [address] Specialty Email Marketing Specialist Neurology 10/27/23 Jed Wolf MD [address] [place] [address] Primary Staff Physician Cardiology 05/08/24 Gate Mortiser Operator Relationship Specialty Start Date End Date Karthik Holliday, JURY CONSULTANT.RN ELIGIBILITY [address] [place] [address] 228763 PCP - General Family Medicine 02/01/24 Josse De Oliveira MD [address] [place] [address] Specialty Email Marketing Specialist Neurology 10/27/23 Patricia Hsu PA-C [address] [place] [address] Specialty Email Marketing Specialist Neurology 10/27/23 Jed Wolf MD [address] [place] [address] Primary Staff Physician Cardiology 05/08/24 Gate Mortiser Operator Relationship Specialty Start Date End Date Karthik Holliday, JURY CONSULTANT.RN ELIGIBILITY [facility]0 [place], [place] 594693 PCP - General Family Medicine 02/01/24 Josse De Oliveira MD [address] [place] [address] Specialty Email Marketing Specialist Neurology 10/27/23 Patricia Hsu PA-C [address] [place] [address] Specialty Email Marketing Specialist Neurology 10/27/23 Jed Wolf MD [address] [place] [address] Primary Staff Physician Cardiology 05/08/24 Anya Huang, JURY CONSULTANT.RN ELIGIBILITY [address] [place] [address] [place] [address] [phone] Referring Neurology 10/30/24 Gate Mortiser Operator Relationship Specialty Start Date End Date Karthik Holliday APRN.RN ELIGIBILITY [address] [place], [place] 584163 PCP - General Family Medicine 02/01/24 Josse De Oliveira MD [address] [place] [address] Specialty Email Marketing Specialist Neurology 10/27/23 Patricia Hsu PA-C [address] [place] [address] Specialty Email Marketing Specialist Neurology 10/27/23 Jed Wolf MD [address] [place] [address] Primary Staff Physician Cardiology 05/08/24 Anya Huang, JURY CONSULTANT.RN ELIGIBILITY [address] [phone] Referring Neurology 10/30/24 Gate Mortiser Operator Relationship Specialty Start Date End Date Karthik Holliday JURY CONSULTANT.RN ELIGIBILITY [address] [place] [address] PCP - General Family Medicine 02/01/24 Josse De Oliveira MD [address] [place] [address] Specialty Email Marketing Specialist Neurology 10/27/23 Patricia Hsu PA-C [address] [place] [address] Specialty Email Marketing Specialist Neurology 10/27/23 Jed Wolf MD [address] [place] [address] Primary Staff Physician Cardiology 05/08/24 Anya Huang, FELIX.RN ELIGIBILITY [address] [address] Referring Neurology 10/30/24 Gate Mortiser Operator Relationship Specialty Start Date End Date Karthik Holliday APRN.RN ELIGIBILITY [address] [place] [address] PCP - General Family Medicine 02/01/24 Josse De Oliveira MD [address] [place] [address] Specialty Email Marketing Specialist Neurology 10/27/23 Patricia Hsu PA-C [address] [place] [address] Specialty Email Marketing Specialist Neurology 10/27/23 Jed Wolf MD [address] [place] [address] Primary Staff Physician Cardiology 05/08/24 Anya Huang, FELIX.RN ELIGIBILITY [address] [phone] Referring Neurology 10/30/24 Gate Mortiser Operator Relationship Specialty Start Date End Date Karthik Holliday, JURY CONSULTANT.RN ELIGIBILITY [address] [place], [place] 973263 PCP - General Family Medicine 02/01/24 Josse De Oliveira MD [address] [place], [place] [phone] Specialty Email Marketing Specialist Neurology 10/27/23 Patricia Hsu PA-C [address] [place] [address] Specialty Email Marketing Specialist Neurology 10/27/23 Jed Wolf MD [address] [place], [place] [phone] Primary Staff Physician Cardiology 05/08/24 Anya Huang, FELIX.RN ELIGIBILITY [address] [phone] Referring Neurology 10/30/24 Gate Mortiser Operator Relationship Specialty Start Date End Date Karthik Holliday, JURY CONSULTANT.RN ELIGIBILITY [address] [place], [place] 525813 PCP - General Family Medicine 02/01/24 Josse De Oliveira MD [address] [place], [place] [phone] Specialty Email Marketing Specialist Neurology 10/27/23 Patricia Hsu PA-C [address] [place] [address] Specialty Email Marketing Specialist Neurology 10/27/23 Jed Wolf MD [address] [place], [place] [phone] Primary Staff Physician Cardiology 05/08/24 Anya Huang, JURY CONSULTANT.RN ELIGIBILITY [address] [place] [address] [place] [address] [phone] Referring Neurology 10/30/24 Gate Mortiser Operator Relationship Specialty Start Date End Date Karthik Holliday JURY CONSULTANT.RN ELIGIBILITY [address] [place] [address] PCP - General Family Medicine 02/01/24 Josse De Oliveira MD [address] [place], [place] [phone] Specialty Email Marketing Specialist Neurology 10/27/23 Patricia Hsu PA-C [address] [place] [address] Specialty Email Marketing Specialist Neurology 10/27/23 Jed Wolf MD [address] [place] [address] Primary Staff Physician Cardiology 05/08/24 Anya Huang, JURY CONSULTANT.RN ELIGIBILITY [address] [place] [address] [place] [address] [phone] Referring Neurology 10/30/24 Gate Mortiser Operator Relationship Specialty Start Date End Date Karthik Holliday, JURY CONSULTANT.RN ELIGIBILITY [address] [place] [address] PCP - General Family Medicine 02/01/24 Josse De Oliveira MD [address] [place] [place], [place] [phone] Specialty Email Marketing Specialist Neurology 10/27/23 Patricia Hsu PA-C [address] [place] 3545794 Specialty Email Marketing Specialist Neurology 10/27/23 Jed Wolf MD [address] [place], [place] [phone] Primary Staff Physician Cardiology 05/08/24 Anya Huang, JURY CONSULTANT.RN ELIGIBILITY [address] [phone] Referring Neurology 10/30/24 Gate Mortiser Operator Relationship Specialty Start Date End Date Karthik Holliday, JURY CONSULTANT.RN ELIGIBILITY [address] [place] [address] PCP - General Family Medicine 02/01/24 Josse De Oliveira MD [address] [place], [place] [phone] Specialty Email Marketing Specialist Neurology 10/27/23 Patricia Hsu PA-C [address] [place] [address] Specialty Email Marketing Specialist Neurology 10/27/23 Jed Wolf MD [address] [place] [address] Primary Staff Physician Cardiology 05/08/24 Anya Huang APRN.RN ELIGIBILITY [address] [address] Referring Neurology 10/30/24 Team Status: Inactive Member [...] Provider Active Sta rt: February 05, 2025 Gate Mortiser Operator Relationship Specialty Start Date End Date Karthik Holliday APRN.RN ELIGIBILITY [address] [place] [address] PCP - General Family Medicine 02/01/24 Josse De Oliveira MD [address] [place] [address] Specialty Email Marketing Specialist Neurology 10/27/23 Patricia Hsu PA-C [address] [place] [address] Specialty Email Marketing Specialist Neurology 10/27/23 Jed Wolf MD [address] [place], [place] [phone] Primary Staff Physician Cardiology 05/08/24 Anya Huang APRN.RN ELIGIBILITY [address] [phone] Referring Neurology 10/30/24 Team Status: Inactive Member Role Status Dates Violette MCCALL Attending Provider Active Sta rt: February 05, 2025 End: February 05, 2025 Gate Mortiser Operator Relationship Specialty Start Date End Date Violette Abdi MD [address] [facility] 8 [place] [address] PCP - General Internal Medicine 03/14/25 Josse De Oliveira MD [address] [place], [place] [phone] Specialty Email Marketing Specialist Neurology 10/27/23 Patricia Hsu PA-C [address] [place], [place] [phone] Specialty Email Marketing Specialist Neurology 10/27/23 Jed Wolf MD [address] [place], [place] [phone] Primary Staff Physician Cardiology 05/08/24 Anya Huang APRN.RN ELIGIBILITY [address] [facility] [address] [place], [place] [phone] Referring Neurology 10/30/24 Team Status: Inactive Member [...] March 20, 2025 End: March 20, 2025 Gate Mortiser Operator Relationship Specialty Start Date End Date Violette Abdi MD [address] [facility] 8 [place] [address] PCP - General Internal Medicine 03/14/25 Josse De Oliveira MD [address] [place], [place] [phone] Specialty Email Marketing Specialist Neurology 10/27/23 Patricia Hsu PA-C [address] [place], [place] 2017[address] Specialty Email Marketing Specialist Neurology 10/27/23 Jed Wolf MD [address] [place] [place], [place] 5492695 Primary Staff Physician Cardiology 05/08/24 Anya Huang APRN.RN ELIGIBILITY [address] [address] Referring Neurology 10/30/24 Gate Mortiser Operator Relationship Specialty Start Date End Date Violette Abdi MD [address] [facility] 8 [place] [address] PCP - General Internal Medicine 03/14/25 Josse De Oliveira MD [address] [place] [address] Specialty Email Marketing Specialist Neurology 10/27/23 Patricia Hsu PA-C [address] [place] [address] Specialty Email Marketing Specialist Neurology 10/27/23 Jed Wolf MD [address] [place] [address] Primary Staff Physician Cardiology 05/08/24 Anya Huang APRN.RN ELIGIBILITY [address] [place] [address] [place] [address] Referring Neurology 10/30/24 Gate Mortiser Operator Relationship Specialty Start Date End Date Violette Abdi MD [address] [facility] [place] [address] PCP - General Internal Medicine 03/14/25 Josse De Oliveira MD [address] [place] [address] Specialty Email Marketing Specialist Neurology 10/27/23 Patricia Hsu PA-C [address] [place] [address] Specialty Email Marketing Specialist Neurology 10/27/23 Jed Wolf MD [address] [place] [address] Primary Staff Physician Cardiology 05/08/24 Anya Huang APRN.RN ELIGIBILITY [address] [place] [address] [place] [address] Referring Neurology 10/30/24 Gate Mortiser Operator Relationship Specialty Start Date End Date Violette Abdi MD [address] [facility] [address] [place] [address] PCP - General Internal Medicine 03/14/25 Josse De Oliveira MD [address] [place] [address] Specialty Email Marketing Specialist Neurology 10/27/23 Patricia Hsu PA-C [address] [place] [address] Specialty Email Marketing Specialist Neurology 10/27/23 Jed Wolf MD [address] [place] [address] Primary Staff Physician Cardiology 05/08/24 Anya Huang, JURY CONSULTANT.RN ELIGIBILITY [address] [phone] Referring Neurology 10/30/24 Reason for Visit (unrecogniz ed section and content) Reason Comments Follow Up Specialty Diagnoses / Procedures Referred By Perri calero Referred To Contact CEREBROVASCULAR Diagnoses 4 month follow up Procedures OFFICE VISIT, EST PT., LEVEL 2 TC [facility] OFFICE BLDG [address] [place] [address] Phone: tel: fax: Anya Huang, JURY CONSULTANT.RN ELIGIBILITY [address] [address] Phone: tel: fax: Referral ID Status Reason Start Date Expiration Date Visits Re quested Visits Authorized [id number] Closed 02/22/2025 06/27/2025 1 1 Reason Comments Refill Request Lipitor Reason Comments Refill Request CHLOROTHILADONE AND TAMSULOSIN Blood Pressure Check Reason Comments Back Pain upper back, last few months, furniture walking Reason Comments Fall Has felt off balance , fell 3 times Reason Onset Date Comments No Show No Show 09/03/2022 No show Reason Onset Date Comments 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 Care 09/07/2022 [facility] to F 09/06/22 Reason Onset Date Comments Hospital F/U 09/08/2022 Reason Comments Patient Question Pt would like to see Neurology to investigate possibility of Parkinsonism. Reason Onset Date Comments 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 Care 09/21/2022 Reason Comments Referral Information Consult to Neurolog y # [id number] Reason Onset Date Comments 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 Care 09/29/2022 SNF update Reason Comments New Patient Shuffling and falls Reason Onset Date Comments 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 Care 10/08/2022 Dc from [facility] 10/05/22 Reason Comments Urinary Frequency Reason Comments Established Patient More evidence if I h ave Parkinson's Syndrome Specialty Diagnoses / Procedures Referred By Perri t Referred To Contact Diagnoses Shuffling gait Gait instability Procedures PROVIDER ORDERED FOLLOW UP OFFICE/OUTPATIENT NEW HIGH MDM 60-74 MINUTES Josse De Oliveira MD [address] [place] [address] Referral ID Status Reason Start Date Expiration Date V isits Requested Visits Authorized [id number] Closed PCP Requested Referral 10/21/2022 10/07/2023 1 [...] Of Care 04/26/2024 [facility] Discharg e to [facility] Reason Onset Date Comments Hospital F/U 04/27/2024 Reason Comments Results Reason Comments Patient Update Reason Comments Established Patient Specialty Diagnoses / Procedures Referred By Perri t Referred To Contact Diagnoses Atrial flutter, unspecified type (HCC) Traumatic subdural hematoma with loss of consciousness, sequela (HCC) Procedures CONSULT TO ELECTROPHYSIOLOGY OFFICE/OUTPATIENT NEW HIGH MDM 60 MINUTES Anya Huang, FELIX.RN ELIGIBILITY [address] [place] [address] [place] [address] Referral ID Status Reason Start Date Expiration Date V isits Requested Visits Authorized [id number] Closed PCP Requested Referral 05/03/2024 05/03/2025 1 1 Specialty Diagnoses / Procedures Referred By Contac t Referred To Contact CT IMAGING Diagnoses SDH (subdural hematoma) (HCC) Procedures CT BRAIN WO IVCON CT HEAD/BRAIN W/O CONTRAST MATERIAL Scott Minor, JURY CONSULTANT.RN ELIGIBILITY [address] [place] [address] [place] [address] Referral ID Status Reason Start Date Expiration Date V isits Requested Visits Authorized [id number] Closed Auto-Generate d Referral 05/08/2024 07/07/2024 1 1 Reason Onset Date Comments 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 Care 05/22/2024 Discharged fr [facility] to [facility] Reason Onset Date Comments 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 Care 06/08/2024 [facility] Discharg e to [facility] Reason Comments Hospital Discharge Reason Comments Established Patient Specialty Diagnoses / Procedures Referred By Contac t Referred To Contact CT IMAGING Diagnoses Traumatic subdural hematoma with loss of consciousness, sequela (HCC) Intracranial meningioma (HCC) Procedures CT BRAIN WO IVCON CT HEAD/BRAIN W/O CONTRAST MATERIAL Agata Del Toro, JURY CONSULTANT.RN ELIGIBILITY [address] [place] [address] [place] [address] Referral ID Status Reason Start Date Expiration Date V isits Requested Visits Authorized [id number] Closed Auto-Generate d Referral 06/20/2024 09/20/2024 1 1 Reason Onset Date Comments 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 Care 09/11/[address] [facility] to home Reason Comments Opened In Error Reason Comments Follow Up Rehab follow up, Reason Comments High blood pressure Reason Onset Date Comments 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 Care 09/29/2024 [facility]oses / Procedures Referred By Contac t Referred To Contact MR IMAGING Diagnoses Silent micro-hemorrhage of brain (HCC) Procedures MRI BRAIN WO IVCON MRI BRAIN BRAIN STEM W/O CONTRAST MATERIAL Anya Huang, JURY CONSULTANT.RN ELIGIBILITY [address] [place] [address] [place] [address] Referral ID Status Reason Start Date Expiration Date V isits Requested Visits Authorized [id number] Closed Auto-Generate d Referral 08/07/2024 10/06/2024 1 1 Reason Comments Consult Reason Comments Follow Up Referral ID Status Reason Start Date Expiration Date V isits Requested Visits Authorized [id number] Closed Auto-Generate d Referral 10/18/2024 01/15/2025 1 1 Reason Comments Newly Diagnosed Specialty Diagnoses / Procedures Referred By Contac t Referred To Contact Diagnoses Multiple subsegmental pulmonary emboli without acute cor pulmonale (HCC) Acute deep vein thrombosis (DVT) of proximal vein of lower extremity, unspecified laterality (HCC) Procedures CONSULT TO HEMATOLOGY/ONCOLOGY OFFICE/OUTPATIENT [facility] 60 MINUTES Anya Huang, JURY CONSULTANT.RN ELIGIBILITY [address] [address] Referral ID Status Reason Start Date Expiration Date V isits Requested Visits Authorized [id number] Closed PCP Requested Referral 10/26/2024 10/26/2025 1 1 Reason Onset Date Comments 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 Care 03/14/2025 [facility] 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 [employer] provides no warranty or guarantee of the accuracy or completeness of information in this document.
[2025-07-18 08:39] LABS: Anion Gap 12 (5-15); BUN 18 mg/dL (4-19); BUN/Creat Ratio 21.5 RATIO (10-20); Calcium,Total 8.9 mg/dL (7.6-11.0); Carbon Dioxide 23.0 mmol/L (21.0-32.0); Chloride 108 mmol/L (98-108); Glucose 91 mg/dL (70-99); Potassium 4.2 mmol/L (3.3-5.1)
== END ==
LOC: OLS.SANC 05:00
PROVIDERS: Visit Provider Internal Medicine
DX: I11.0 Hypertensive heart disease with heart failure (principal); I50.9 Heart failure, unspecified; E78.5 Hyperlipidemia, unspecified
CPT/HCPCS: 36415; 80048

== ENCOUNTER → 2025-08-16 05:00 | Outpatient (REF) | payer MEDICARE, SELFPAY ==
[2025-08-16 11:06] LABS: Anion Gap 12 (5-15); BUN 11 mg/dL (4-19); BUN/Creat Ratio 13.3 RATIO (10-20); Calcium,Total 8.8 mg/dL (7.6-11.0); Carbon Dioxide 23.9 mmol/L (21.0-32.0); Chloride 105 mmol/L (98-108); Glucose 88 mg/dL (70-99); Potassium 4.1 mmol/L (3.3-5.1)
== END ==
LOC: OLS.SANC 05:00
PROVIDERS: Visit Provider Internal Medicine
DX: I11.0 Hypertensive heart disease with heart failure (principal); G20.A1 Parkinson's disease without dyskinesia, without mention of fluctuations; I50.9 Heart failure, unspecified; E11.9 Type 2 diabetes mellitus without complications
CPT/HCPCS: 36415; 80048

== ENCOUNTER → 2025-10-30 05:00 | Outpatient (REF) | payer MEDICARE, SELFPAY ==
--- OUTSIDE RECORDS SUMMARY | 2025-10-30 03:39 | XMS RPT_ITS | CCD ---
Author Organization [facility] Care Team Providers Care Supervisor Tumblers Name Role Phone Ty BROTHERS, Ángel Rivera Primary Care Provide r Kelechi BROTHERS, Paul Unavailable Kinsey Ruggiero MD, Clint Torres Primary Care Provi ana Kinsey Ruggiero MD, Clint Torres Primary [facility] Provi ana Tim BARRETT, Moo Unavailable Unavailable Kinsey Ruggiero MD, Clint Torres [facility] Provi ana Tim BARRETT, Moo Unavailable Unavailable JOSSE COUCH Attending Unavailable CLINT EUCEDA JR Referring Unavail able KINSEY GARCIA, CLINT TORRES [facility] Unavail able Tim RN, Moo Unavailable Unavailable Jacque RN, Dayan A Unavailable [phone] Jacque BARRETT, Dayan A Unavailable [phone] Tim BARRETT, Moo Unavailable Unavailable Jacque BARRETT, Dayan A Unavailable [phone] Yennifer BROTHERS, Josse Unavailable Aracelis CIFUENTES, Patricia Romano Unavailable Mastrucharisse ELECTRONIC TESTER.Karthik GILES Primary Care Provider Miya ELECTRONIC TESTER.CHAN, Karthik Primary Care Provider Jed Wolf MD Unavailable Jacque BARRETT, Dayan A Unavailable Sal PERDOMON.Anya GILES Unavailable Violette Chen Attending Provider Unavailab Violette Christian Referring Provider Unavailab Violette Osei MD Primary Care Provider Violette Chen Attending Provider Unavailab FAITH Julio Attending Unavailable MASTRUCCI, KARTHIK Primary Care Unavailable ANYA HUANG Referring Unavailable MASTRUCCI, KARTHIK Primary Care Unavailable FEGATELLI, AGATA L Referring Unavailable KHAYYAT, LEONARD F Attending Unavailable [...] Unavaila ble MASTRUCCI, KARTHIK Primary Care Unavailable MASTRUCCI, KARTHIK Attending Unavailable ANYA HUANG Attending Unavailable [facility] Primary Care Unavaila ble MASTRUCCI, KARTHIK Primary Care Unavailable ANYA HUANG Attending Unavailable MASTRUCCI, KARTHIK Primary Care Unavailable LUCA, AGATA L Referring Unavailable Trinidad MCCALL, Violette Attending Unavailable Trinidad MCCALL, Violette Attending Unavailable Violette Chen Referring Unavailable Trinidad MCCALL, Violette Attending Unavailable Trinidad MCCALL, Violette Attending Unavailable Trinidad MCCALL, Violette Attending Unavailable Trinidad MCCALL, Violette Attending Unavailable Lanasamelanie MCCALL, Violette Attending Unavailable Trinidad MCCALL, Violette Attending Unavailable Medications Current Medications Medication Drug Class(es) [...] 11 06/11/2025 06/11/2026 Active Start: 09-28-2024 End: 10-31-2024 take 2 [...] 2 09/18/2024 10/18/2024 Active polyethylene glycol 3350 98972 mg powder for oral solution (20 sources) [...] Comment on above: Take 1 Packet by [facility] once daily as needed for constipation. Dissolve dose in 4 - 8 ounces of liquid and take as directed. sennosides, intermediate 8.6 mg oral tablet (9 sources) take [...] Comment on above: Take 1 capsule by [facility] daily at bedtime. Completed/Discontinued Medications Medication Drug [...] twice daily. Take 2 tablets by [facility] three times daily. Take 0.5 tablets by mouth three times daily. chlorthalidone 25 mg oral tablet (20 sources) Thiazide-like Diuretic Start: 2020 End: 2023 take 1 tablet by mouth once daily chlorthalidone (HYGROTON) 25 mg tablet Indications: Essential hypertension Take 1 tablet by mouth once daily. 30 tablet 5 11/12/2022 02/01/2024 Discontinued Comment on above: Take 1 tablet by [facility] once daily. cholecalciferol 0.05 mg oral capsule (20 sources) Vitamin D End: 2023 take 1 capsule by mouth once daily Cholecalciferol, Vitamin D3, 50 mcg (2,000 unit) cap Take 1 capsule by mouth once daily. 0 02/01/2024 Discontinued Comment on above: Take by mouth once d aily. Take 1 capsule by [facility] once daily. docusate sodium 50 mg / sennosides, intermediate 8.6 mg oral tablet (20 sources) Start: [...] failure, unspecified; Translations: [Heart failure, unspecified] Onset: 09-04-2025 Chronic Diseases of white blood cells (20 [...] Long-term current use of diuretic; Translations: [Other usp (current) drug therapy] Episodic Other aftercare (2 [...] 09-18-2024 09-18-2024 Episodic Other aftercare (1 source) Encounter for follow-up examination after completed treatment for conditions other than malignant neoplasm; Translations: [Hospital discharge follow-up] Onset: 09-18-2024 Episodic Other aftercare (1 source) Other oysterman (current) drug therapy; Translations: [Other oysterman (current) drug therapy] Onset: 11-23-2024 Episodic Other and unspecified benign neoplasm (20 [...] health and behavioral disorders] Onset: 09-18-2024 Episodic Results Test Name Value Interpretation Reference Range Facility Basic Metabolic Profile (BMP )on 08-16-2025 BUN/CRE 13.3 RATIO Normal 10-20 [facility] Comment on above: Order Comment: 112.1 Performed By: #### L 100.0500, L500.2500 #### [facility] [address] [place], [address] Calcium [Mass/Vol] 8.8 mg/dL Normal 7.6-11.0 [facility] Comment on above: Order Comment: 112.1 Performed By: #### L 100.0500, L500.2500 #### [facility] [address] [place], [address] Chloride [Moles/Vol] 105 mmol/L Normal 98-108 [facility] Comment on above: Order Comment: 112.1 Performed By: #### L 100.0500, L500.2500 #### [facility] [address] [place], [address] CO2 [Moles/Vol] 23.9 mmol/L Normal 21.0-32.0 [facility] Comment on above: Order Comment: 112.1 Performed By: #### L 100.0500, L500.2500 #### [facility] [address] [place], [address] Creatinine [Mass/Vol] 0.81 mg/dL Normal 0.70-1.20 [facility] Comment on above: Order Comment: 112.1 Performed By: #### L 100.0500, L500.2500 #### [facility] [address] [place], [address] GAP 12 Normal 5-15 [facility] Comment on above: Order Comment: 112.1 Performed By: #### L 100.0500, L500.2500 #### [facility] [address] [place], [address] GFR/1.73 sq M.predicted among non-blacks MDRD (S/P/Bld) [Vol rate/Area] 97 mL/min/{1.73_m2} Normal >60 [facility] Comment on above: Order Comment: 112.1 Result Comment: mL/m in/1.73m2 CKD-EPI Creatinine Equation (2020) Performed By: #### L 100.0500, L500.2500 #### [facility] [address] [place], [address] Glucose [Mass/Vol] 88 mg/dL Normal 70-99 [facility] Comment on above: Order Comment: 112.1 Performed By: #### L 100.0500, L500.2500 #### [facility] [address] [place], [address] Potassium [Moles/Vol] 4.1 mmol/L Normal 3.3-5.1 [facility] Comment on above: Order Comment: 112.1 Performed By: #### L 100.0500, L500.2500 #### [facility] [address] [place], [address] Sodium [Moles/Vol] 141 mmol/L Normal 133-145 [facility] Comment on above: Order Comment: 112.1 Performed By: #### L 100.0500, L500.2500 #### [facility] [address] [place], [address] Urea nitrogen [Mass/Vol] 11 mg/dL Normal 4-19 [facility] Comment on above: Order Comment: 112.1 Performed By: #### L 100.0500, L500.2500 #### [facility] [address] [place], [address] Basic Metabolic Profile (BMP )on 07-18-2025 BUN/CRE 21.5 RATIO High 10-20 [facility] Comment on above: Order Comment: 112.1 Performed By: #### L 100.0500, L500.2500 #### [facility] [address] [place], [address] Calcium [Mass/Vol] 8.9 mg/dL Normal 7.6-11.0 [facility] Comment on above: Order Comment: 112.1 Performed By: #### L 100.0500, L500.2500 #### [facility] [address] [place], [address] Chloride [Moles/Vol] 108 mmol/L Normal 98-108 [facility] Comment on above: Order Comment: 112.1 Performed By: #### L 100.0500, L500.2500 #### [facility] [address] [place], [address] CO2 [Moles/Vol] 23.0 mmol/L Normal 21.0-32.0 [facility] Comment on above: Order Comment: 112.1 Performed By: #### L 100.0500, L500.2500 #### [facility] [address] [place], [address] Creatinine [Mass/Vol] 0.85 mg/dL Normal 0.70-1.20 [facility] Comment on above: Order Comment: 112.1 Performed By: #### L 100.0500, L500.2500 #### [facility] [address] [place], [address] GAP 12 Normal 5-15 [facility] Comment on above: Order Comment: 112.1 Performed By: #### L 100.0500, L500.2500 #### [facility] [address] [place], [address] GFR/1.73 sq M.predicted among non-blacks MDRD (S/P/Bld) [Vol rate/Area] 96 mL/min/{1.73_m2} Normal >60 [facility] Comment on above: Order Comment: 112.1 Result Comment: mL/m in/1.73m2 CKD-EPI Creatinine Equation (2020) Performed By: #### L 100.0500, L500.2500 #### [facility] [address] [place], [address] Glucose [Mass/Vol] 91 mg/dL Normal 70-99 [facility] Comment on above: Order Comment: 112.1 Performed By: #### L 100.0500, L500.2500 #### [facility] [address] [place], [address] Potassium [Moles/Vol] 4.2 mmol/L Normal 3.3-5.1 [facility] Comment on above: Order Comment: 112.1 Performed By: #### L 100.0500, L500.2500 #### [facility] [address] [place], [address] Sodium [Moles/Vol] 143 mmol/L Normal 133-145 [facility] Comment on above: Order Comment: 112.1 Performed By: #### L 100.0500, L500.2500 #### [facility] [address] [place], [address] Urea nitrogen [Mass/Vol] 18 mg/dL Normal 4-19 [facility] Comment on above: Order Comment: 112.1 Performed By: #### L 100.0500, L500.2500 #### [facility] [address] [place], [address] CNOVon 06-21-2025 CNOV Office Visit (CVAKPO) ALFONZO SIMON ([id number]) 1960 M Date Time Provider Department 06/21/25 1:00 PM ANYA HUANG During your visit today, we recorded the following information about you: Pulse Blood pressure Weight Height 57/minute 160/74 147.4 kg 1.829 m Anya Huang APRN.CANARY RAISER 06/21/2025 3:32 PM Signed [facility] Established Visit Recording using Accumetrics software for draft documentation of the visit was discussed with the patient/authorized brand representative; all questions welcomed and answered. Patient/authorized brand representative agreed to proceed Consultation is requested by: No referring provider defined for this encounter. PCP: Karthik Holliday [address] [place] [address] CEREBROVASCULAR HISTORY Alfonzo Simon is a 64 year old left-handed male presenting for hospital discharge follow up. Admitted to [facility] 04/15-04/25/24. From discharge summary Mr. Alfonzo Simon was directly admitted to [facility] on 04/15/2024 for treatment of injuries [...] discharge. Mr. Simon would be discharged to [facility] rehab in stable condition on 04/25/2024. He [...] new symptoms or clinical events -living at [facility] -prior to this lived at [...] 20mg -B (more content not included)... Normal [facility] CNOVSPon 06-11-2025 CNOVSP Visit (SP) Office (HEMAPOB) ALFONZO SIMON ([id number]) 1960 M Date Time Provider Department 06/11/25 10:00 AM FAITH MOORE HEMAPOB During your visit today, we recorded the following information about you: Temperature Pulse Blood pressure Weight 98.1 degrees 57/minute 136/81 147.4 kg Height 1.829 m Faith Moore APRN.CANARY RAISER 06/11/2025 9:42 AM Signed Hematology Consultation Date: [...] anticoagulation duration. [facility] is [facility] and is here in a wheelchair. [...] yet. He has an appointment with a retail general manager in [place] due to transport issues to [place]. He is otherwise feeling well. Discussed staying [...] Psychiatric/Behavior al (more content not included)... Normal [facility] Basic Metabolic Profile (BMP )on 05-21-2025 BUN/CRE 18.3 RATIO Normal 10-20 [facility] Comment on above: Order Comment: 112.1 Performed By: #### L 500.2500, L100.0500 #### [facility] [address] [place], [address] Calcium [Mass/Vol] 8.9 mg/dL Normal 7.6-11.0 [facility] Comment on above: Order Comment: 112.1 Performed By: #### L 500.2500, L100.0500 #### [facility] [address] [place], [address] Chloride [Moles/Vol] 106 mmol/L Normal 98-108 [facility] Comment on above: Order Comment: 112.1 Performed By: #### L 500.2500, L100.0500 #### [facility] [address] [place], [address] CO2 [Moles/Vol] 24.7 mmol/L Normal 21.0-32.0 [facility] Comment on above: Order Comment: 112.1 Performed By: #### L 500.2500, L100.0500 #### [facility] [address] [place], [address] Creatinine [Mass/Vol] 0.89 mg/dL Normal 0.70-1.20 [facility] Comment on above: Order Comment: 112.1 Performed By: #### L 500.2500, L100.0500 #### [facility] [address] [place], [address] GAP 11 Normal 5-15 [facility] Comment on above: Order Comment: 112.1 Performed By: #### L 500.2500, L100.0500 #### [facility] [address] [place], [address] GFR/1.73 sq M.predicted among non-blacks MDRD (S/P/Bld) [Vol rate/Area] 95 mL/min/{1.73_m2} Normal >60 [facility] Comment on above: Order Comment: 112.1 Result Comment: mL/m in/1.73m2 CKD-EPI Creatinine Equation (2020) Performed By: #### L 500.2500, L100.0500 #### [facility] [address] [place], [address] Glucose [Mass/Vol] 88 mg/dL Normal 70-99 [facility] Comment on above: Order Comment: 112.1 Performed By: #### L 500.2500, L100.0500 #### [facility] [address] [place], [address] Potassium [Moles/Vol] 3.9 mmol/L Normal 3.3-5.1 [facility] Comment on above: Order Comment: 112.1 Performed By: #### L 500.2500, L100.0500 #### [facility] [address] [place], [address] Sodium [Moles/Vol] 142 mmol/L Normal 133-145 [facility] Comment on above: Order Comment: 112.1 Performed By: #### L 500.2500, L100.0500 #### [facility] [address] [place], [address] Urea nitrogen [Mass/Vol] 16 mg/dL Normal 4-19 [facility] Comment on above: Order Comment: 112.1 Performed By: #### L 500.2500, L100.0500 #### [facility] [address] [place], [address] CBC-Complete Blood Cnt No Di ffon 05-21-2025 Erythrocyte distribution width (RBC) [Ratio] 13.5 % Normal 11.6-14.6 [facility] Comment on above: Order Comment: 112.1 Performed By: #### L 500.2500, L100.0500 #### [facility] [address] [place], [address] Hematocrit (Bld) [Volume fraction] 43.2 % Normal 40-54 [facility] Comment on above: Order Comment: 112.1 Performed By: #### L 500.2500, L100.0500 #### [facility] [address] [place], [address] Hemoglobin (Bld) [Mass/Vol] 14.2 g/dL Normal 13.0-16.5 [facility] Comment on above: Order Comment: 112.1 Performed By: #### L 500.2500, L100.0500 #### [facility] [address] [place], [address] MCH (RBC) [Entitic mass] 30.1 pg Normal 27.0-32.0 [facility] Comment on above: Order Comment: 112.1 Performed By: #### L 500.2500, L100.0500 #### [facility] [address] [place], [address] MCHC (RBC) [Mass/Vol] 32.9 g/dL Normal 32-36 [facility] Comment on above: Order Comment: 112.1 Performed By: #### L 500.2500, L100.0500 #### [facility] [address] [place], [address] MCV (RBC) [Entitic vol] 91.5 fL Normal 80-[address] [facility] Comment on above: Order Comment: 112.1 Performed By: #### L 500.2500, L100.0500 #### [facility] [address] [place], [address] Platelet mean volume (Bld) [Entitic vol] 11.2 fL Normal 6.2-12.0 [facility] Comment on above: Order Comment: 112.1 Performed By: #### L 500.2500, L100.0500 #### [facility] [address] [place], [address] Platelets (Bld) [#/Vol] 272 10*3/uL Normal 150-450 [facility] Comment on above: Order Comment: 112.1 Performed By: #### L 500.2500, L100.0500 #### [facility] [address] [place], [address] RBC (Bld) [#/Vol] 4.72 10*6/uL Normal 4.6-6.2 [facility] Comment on above: Order Comment: 112.1 Performed By: #### L 500.2500, L100.0500 #### [facility] [address] [place], [address] RDW SD 45.5 fl High 35.1-43.9 [facility] Comment on above: Order Comment: 112.1 Performed By: #### L 500.2500, L100.0500 #### [facility] [address] [place], [address] WBC (Bld) [#/Vol] 7.9 10*3/uL Normal 4.4-11.0 [facility] Comment on above: Order Comment: 112.1 Performed By: #### L 500.2500, L100.0500 #### [facility] [place] [place], [address] ECG COMPLETEon 05-14-2025 ECG COMPLETE Ventricular Rate : 57 BPM Atrial Rate : 57 BPM P-R Interval : 178 ms QRS Duration : 128 ms Q-T Interval : 464 ms QTC Calculation(Bazett) : 451 ms Calculated P Merrill : 15 degrees Calculated R Merrill : -35 degrees Calculated T Merrill : 22 degrees SINUS BRADYCARDIA WITH PREMATURE ATRIAL COMPLEXES LEFT AXIS DEVIATION LEFT VENTRICULAR HYPERTROPHY WITH QRS WIDENING ( R in aVL , Startex product ) NONSPECIFIC T WAVE ABNORMALITY ABNORMAL ECG WHEN COMPARED WITH ECG OF 24-Sep-2024 00:26, PREMATURE ATRIAL COMPLEXES ARE NOW PRESENT VENT. RATE HAS DECREASED by 31 bpm INCOMPLETE RIGHT BUNDLE BRANCH BLOCK IS NO LONGER PRESENT CRITERIA FOR SEPTAL INFARCT ARE NO LONGER PRESENT Confirmed by MD NIELSON VINAY ([id number]) on 05/15/2025 5:12:20 PM NAME : ALFONZO SIMON PID : [id number] : 1960 Gender : Male Race : ORD : [id number] Procedure Date : May 14 2025 13:49:51 [...] LONGER PRESENT Confirmed by MD NIELSON VINAY ([id number]) on 05/15/2025 5:12:20 PM Test Reason : HCS Location : 198 : [facility] Overread By : MD NIELSON VINAY Edited By : MD NIELSON VINAY Referred By : CANDELARIO SCHWARTZ Acquired by : FARRUKH COLEMAN [facility] Kinsey 05-08-2025 CHANN Telephone (AGCARDPOB) ALFONZO SIMON ([id number]) 1960 M Date Time Provider Department 05/08/25 ORLY VALENCIA AGCARDPOArgelia During your visit today, we recorded the following information about you: Rosibel Esquivel 05/08/2025 10:55 AM Signed Spoke to the patient stating they are wanting a DEBBI from [facility] to [facility]. Scheduled appt for EP confirmed date, [...] Encounter Status:Closed by ROSIBEL ESQUIVEL on 05/08/25 Normal [facility] Anion gap in Serum or Plasma Ordered By: Violette Abdi on 03-20-2025 Anion gap [Moles/Vol] 10 mmol/L 5-15 [facility] Automated blood erythrocyte countOrdered By: Violette Abdi on 03-20-2025 RBC (Bld) [#/Vol] 4.52 10*6/uL Low 4.6-6.2 [facility] Comment on above: Order Comment: 112.1 Performed By: #### L 100.0500, L500.2500 #### [facility] [address] [place], [place], [id number] Automated blood hematocrit ( percentage)Ordered By: Violette Abdi on 03-20-2025 Hematocrit (Bld) [Volume fraction] 41.4 % Normal 40-54 [facility] Comment on above: Order Comment: 112.1 Performed By: #### L 100.0500, L500.2500 #### [facility] [address] [place], [place], [address] BUN/creatinine ratioOrdered By: Violette Abdi on 03-20-2025 Urea nitrogen/Creatinine [Mass ratio] 24.9 mg/mg High 10-20 [facility] Basic Metabolic Profile (BMP )on 03-20-2025 BUN/CRE 24.9 RATIO High - [facility] Comment on above: Order Comment: 112.1 Performed By: #### L 100.0500, L500.2500 #### [facility] [address] [place], [address] Calcium [Mass/Vol] 8.7 mg/dL Normal 7.6-11.0 [facility] Comment on above: Order Comment: 112.1 Performed By: #### L 100.0500, L500.2500 #### [facility] [address] [place], [address] Chloride [Moles/Vol] 110 mmol/L High 98-108 [facility] Comment on above: Order Comment: 112.1 Performed By: #### L 100.0500, L500.2500 #### [facility] [address] [place], [address] CO2 [Moles/Vol] 22.8 mmol/L Normal 21.0-32.0 [facility] Comment on above: Order Comment: 112.1 Performed By: #### L 100.0500, L500.2500 #### [facility] [address] [place], [address] Creatinine [Mass/Vol] 0.77 mg/dL Normal 0.70-1.20 [facility] Comment on above: Order Comment: 112.1 Performed By: #### L 100.0500, L500.2500 #### [facility] [address] [place], [address] GAP 10 Normal 5-15 [facility] Comment on above: Order Comment: 112.1 Performed By: #### L 100.0500, L500.2500 #### [facility] [address] [place], [address] GFR/1.73 sq M.predicted among non-blacks MDRD (S/P/Bld) [Vol rate/Area] 99 mL/min/{1.73_m2} Normal >60 [facility] Comment on above: Order Comment: 112.1 Result Comment: mL/m in/1.73m2 CKD-EPI Creatinine Equation (2020) Performed By: #### L 100.0500, L500.2500 #### [facility] [address] [place], [address] Glucose [Mass/Vol] 82 mg/dL Normal 70-99 [facility] Comment on above: Order Comment: 112.1 Performed By: #### L 100.0500, L500.2500 #### [facility] [address] [place], [address] Potassium [Moles/Vol] 4.1 mmol/L Normal 3.3-5.1 [facility] Comment on above: Order Comment: 112.1 Performed By: #### L 100.0500, L500.2500 #### [facility] [address] [place], [address] Sodium [Moles/Vol] 143 mmol/L Normal 133-145 [facility] Comment on above: Order Comment: 112.1 Performed By: #### L 100.0500, L500.2500 #### [facility] [address] [place], [address] Urea nitrogen [Mass/Vol] 19 mg/dL Normal 4-19 [facility] Comment on above: Order Comment: 112.1 Performed By: #### L 100.0500, L500.2500 #### [facility] [address] [place], [address] CBC-Complete Blood Cnt No Di ffon 03-20-2025 RDW SD 47.0 fl High 35.1-43.9 [facility] Comment on above: Order Comment: 112.1 Performed By: #### L 100.0500, L500.2500 #### [facility] [address] [place], [place], [id number] Carbon dioxide, total [Moles /volume] in Central venous bloodOrdered By: Violette Abdi on 03-20-2025 CO2 [Moles/Vol] 22.8 mmol/L 21.0-32.0 [facility] Chloride assayOrdered By: Benji Crespo on 03-20-2025 Chloride [Moles/Vol] 110 mmol/L High 98-108 [facility] Erythrocyte distribution wid th ratioOrdered By: Violette Abdi on 03-20-2025 Erythrocyte distribution width (RBC) [Ratio] 13.8 % Normal 11.6-14.6 [facility] Comment on above: Order Comment: 112.1 Performed By: #### L 100.0500, L500.2500 #### [facility] [address] [place], [place], [id number] Erythrocyte distribution wid th standard deviationOrdered By: Violette Abdi on 03-20-2025 Erythrocyte distribution width (RBC) [Ratio] 47.0 fl High 35.1-43.9 [facility] Glomerular filtration rate ( GFR) estimation/1.73 sq m using serum, plasma, or whole bOrdered By: Violette Abdi on 03-20-2025 GFR/1.73 sq M.predicted among non-blacks MDRD (S/P/Bld) [Vol rate/Area] 99 mL/min/{1.73_m2} >60 [facility] Comment on above: mL/min/1.73m2 CKD-EP I Creatinine Equation (2020) Hemoglobin measurementOrdere d By: Violette Abdi on 03-20-2025 Hemoglobin (Bld) [Mass/Vol] 13.7 g/dL Normal 13.0-16.5 [facility] Comment on above: Order Comment: 112.1 Performed By: #### L 100.0500, L500.2500 #### [facility] [address] [place], [address] MCV (mean corpuscular volume ) determinationOrdered By: Violette Abdi on 03-20-2025 MCV (RBC) [Entitic vol] 91.6 fL Normal 80-[address] [facility] Comment on above: Order Comment: 112.1 Performed By: #### L 100.0500, L500.2500 #### [facility] [address] [place], [address] Mean corpuscular hemoglobin (MCH) determinationOrdered By: Violette Abdi on 03-20-2025 MCH (RBC) [Entitic mass] 30.3 pg Normal 27.0-32.0 [facility] Comment on above: Order Comment: 112.1 Performed By: #### L 100.0500, L500.2500 #### [facility] [address] [place], [address] Mean corpuscular hemoglobin concentration (MCHC) determinationOrdered By: Violette Abdi on 03-20-2025 MCHC (RBC) [Mass/Vol] 33.1 g/dL Normal 32-36 [facility] Comment on above: Order Comment: 112.1 Performed By: #### L 100.0500, L500.2500 #### [facility] [address] [place], [address] Mean platelet volume determi nationOrdered By: Violette Abdi on 03-20-2025 Platelet mean volume (Bld) [Entitic vol] 11.3 fL Normal 6.2-12.0 [facility] Comment on above: Order Comment: 112.1 Performed By: #### L 100.0500, L500.2500 #### [facility] [address] [place], [address] Platelet countOrdered By: Benji Crespo on 03-20-2025 Platelets (Bld) [#/Vol] 264 10*3/uL Normal 150-450 [facility] Comment on above: Order Comment: 112.1 Performed By: #### L 100.0500, L500.2500 #### [facility] [address] [place], [address] Potassium measurement (mass/ volume)Ordered By: Violette Abdi on 03-20-2025 Potassium (Unsp spec) [Mass/Vol] 4.1 mmol/L 3.3-5.1 [facility] Serum creatinine measurement (mass/volume)Ordered By: Violette Abdi on 03-20-2025 Creatinine [Mass/Vol] 0.77 mg/dL 0.70-1.20 [facility] Serum glucose measurement (m ass/volume)Ordered By: Violette Abdi on 03-20-2025 Glucose [Mass/Vol] 82 mg/dL 70-99 [facility] Serum or plasma calcium gael urement (mass/volume)Ordered By: Violette Abdi on 03-20-2025 Calcium [Mass/Vol] 8.7 mg/dL 7.6-11.0 [facility] Serum or plasma urea nitroge n measurement (mass/volume)Ordered By: Violette Abdi on 03-20-2025 Urea nitrogen [Mass/Vol] 19 mg/dL 4-19 [facility] Sodium levelOrdered By: Ramon Abdi on 03-20-2025 Sodium [Moles/Vol] 143 mmol/L 133-145 [facility] White blood cell (WBC) count Ordered By: Violtete Abdi on 03-20-2025 WBC (Bld) [#/Vol] 7.1 10*3/uL Normal 4.4-11.0 [facility] Comment on above: Order Comment: 112.1 Performed By: #### L 100.0500, L500.2500 #### [facility] [address] [place], [address] CNOVon 02-22-2025 CNOV Office Visit (CVAKPO) AURORA,ALFONZO P ([id number]) 1960 M Date Time Provider Department 02/22/25 1:30 PM ANYA HUANG During your visit today, we recorded the following information about you: Pulse Blood pressure Weight Height 63/minute 150/70 130.6 kg 1.829 m Anya Huang APRN.CANARY RAISER 02/22/2025 4:48 PM Signed [facility] Established Visit Consultation is requested by: No referring provider defined for this encounter. PCP: Karthik Holliday [address] [place] [address] [facility]BROVASC[facility] HIST[facility] Alfonzo Simon is a 64 year old left-handed male presenting for hospital discharge follow up. Admitted to [facility] 04/15-04/25/24. From discharge summary Mr. Alfonzo Simon was directly admitted to [facility] on 04/15/2024 for treatment of injuries [...] discharge. Mr. Simon would be discharged to [facility] rehab in stable condition on 04/25/2024. He [...] new symptoms or clinical events -living at [facility] -prior to this lived at [...] any new symptoms or clinical events [facility] - thinks will have to leave soon because of insurance, would be sent home with home care (more content not included)... Normal [facility] Anion gap in Serum or Plasma Ordered By: Violette Abdi on 02-05-2025 Anion gap [Moles/Vol] 11 mmol/L - [facility] BUN/creatinine ratioOrdered By: Violette Abdi on 02-05-2025 Urea nitrogen/Creatinine [Mass ratio] 17.6 mg/mg - [facility] Basic Metabolic Profile (BMP )on 02-05-2025 BUN/CRE 17.6 RATIO Normal 08-27 [facility] Comment on above: Order Comment: 112-1 Performed By: #### L 500.2500, L100.0500 #### [facility] [address] [place], [address] Calcium [Mass/Vol] 8.7 mg/dL Normal 7.6-11.0 [facility] Comment on above: Order Comment: 112-1 Performed By: #### L 500.2500, L100.0500 #### [facility] [address] [place], [address] Chloride [Moles/Vol] 108 mmol/L Normal 98-108 [facility] Comment on above: Order Comment: 112-1 Performed By: #### L 500.2500, L100.0500 #### [facility] [address] [place], [address] CO2 [Moles/Vol] 21.8 mmol/L Normal 21.0-32.0 [facility] Comment on above: Order Comment: 112-1 Performed By: #### L 500.2500, L100.0500 #### [facility] [address] [place], [address] Creatinine [Mass/Vol] 0.80 mg/dL Normal 0.70-1.20 [facility] Comment on above: Order Comment: 112-1 Performed By: #### L 500.2500, L100.0500 #### [facility] [address] [place], [address] GAP 11 Normal 5-15 [facility] Comment on above: Order Comment: 112-1 Performed By: #### L 500.2500, L100.0500 #### [facility] [address] [place], [address] GFR/1.73 sq M.predicted among non-blacks MDRD (S/P/Bld) [Vol rate/Area] 97 mL/min/{1.73_m2} Normal >60 [facility] Comment on above: Order Comment: 112- Result Comment: mL/m in/1.73m2 CKD-EPI Creatinine Equation (2020) Performed By: #### L 500.2500, L100.0500 #### [facility] [address] [place], [address] Glucose [Mass/Vol] 81 mg/dL Normal 70-99 [facility] Comment on above: Order Comment: 112-1 Performed By: #### L 500.2500, L100.0500 #### [facility] [address] [place], [address] Potassium [Moles/Vol] 4.2 mmol/L Normal 3.3-5.1 [facility] Comment on above: Order Comment: 112-1 Result Comment: Hemo lysis present, Results??could be affected. ?? Performed By: #### L 500.2500, L100.0500 #### [facility] [address] [place], [address] Sodium [Moles/Vol] 141 mmol/L Normal 133-145 [facility] Comment on above: Order Comment: 112-1 Performed By: #### L 500.2500, L100.0500 #### [facility] [address] [place], [address] Urea nitrogen [Mass/Vol] 14 mg/dL Normal 4-19 [facility] Comment on above: Order Comment: 112-1 Performed By: #### L 500.2500, L100.0500 #### [facility] [address] [place], [address] CBC-Complete Blood Cnt No Di ffon 02-05-2025 Erythrocyte distribution width (RBC) [Ratio] 13.7 % Normal 11.6-14.6 [facility] Comment on above: Order Comment: 112-1 Performed By: #### L 500.2500, L100.0500 #### [facility] [address] [place], [address] Hematocrit (Bld) [Volume fraction] 40.3 % Normal 40-54 [facility] Comment on above: Order Comment: 112-1 Performed By: #### L 500.2500, L100.0500 #### [facility] [address] [place], [address] Hemoglobin (Bld) [Mass/Vol] 13.5 g/dL Normal 13.0-16.5 [facility] Comment on above: Order Comment: 112-1 Performed By: #### L 500.2500, L100.0500 #### [facility] [address] [place], [address] MCH (RBC) [Entitic mass] 29.7 pg Normal 27.0-32.0 [facility] Comment on above: Order Comment: 112-1 Performed By: #### L 500.2500, L100.0500 #### [facility] [address] [place], [address] MCHC (RBC) [Mass/Vol] 33.5 g/dL Normal 32-36 [facility] Comment on above: Order Comment: 112-1 Performed By: #### L 500.2500, L100.0500 #### [facility] [address] [place], [address] MCV (RBC) [Entitic vol] 88.8 fL Normal 80-[address] [facility] Comment on above: Order Comment: 112-1 Performed By: #### L 500.2500, L100.0500 #### [facility] [address] [place], [address] Platelet mean volume (Bld) [Entitic vol] 11.4 fL Normal 6.2-12.0 [facility] Comment on above: Order Comment: 112-1 Performed By: #### L 500.2500, L100.0500 #### [facility] [address] [place], [address] Platelets (Bld) [#/Vol] 274 10*3/uL Normal 150-450 [facility] Comment on above: Order Comment: 112-1 Performed By: #### L 500.2500, L100.0500 #### [facility] [address] [place], [address] RBC (Bld) [#/Vol] 4.54 10*6/uL Low 4.6-6.2 [facility] Comment on above: Order Comment: 112-1 Performed By: #### L 500.2500, L100.0500 #### [facility] [address] [place], [address] RDW SD 44.7 fl High 35.1-43.9 [facility] Comment on above: Order Comment: 112-1 Performed By: #### L 500.2500, L100.0500 #### [facility] [address] [place], [address] WBC (Bld) [#/Vol] 7.4 10*3/uL Normal 4.4-11.0 [facility] Comment on above: Order Comment: 112-1 Performed By: #### L 500.2500, L100.0500 #### [facility] [place], [address] Carbon dioxide, total [Moles /volume] in Central venous bloodOrdered By: Violette Abdi on 02-05-2025 CO2 [Moles/Vol] 21.8 mmol/L 21.0-32.0 [facility] Chloride assayOrdered By: Benji Crespo on 02-05-2025 Chloride [Moles/Vol] 108 mmol/L 98-108 [facility] Erythrocyte distribution wid th ratioOrdered By: Violette Abdi on 02-05-2025 Erythrocyte distribution width (RBC) [Ratio] 13.7 % 11.6-14.6 [facility] Erythrocyte distribution wid th standard deviationOrdered By: Violette Abdi on 02-05-2025 Erythrocyte distribution width (RBC) [Entitic vol] 44.7 fL High 35.1-43.9 [facility] Erythrocyte distribution width (RBC) [Ratio] 44.7 fl High 35.1-43.9 [facility] GFR/1.73 sq M.predicted jasen g non-blacks MDRD (S/P/Bld) [Vol rate/Area]Ordered By: Violette Abdi on 02-05-2025 Estimated GFR (MDRD) Non-Af Amer 97 >60 [facility] Comment on above: mL/min/1.73m2 CKD-EP I Creatinine Equation (2020) Glomerular filtration rate ( GFR) estimation/1.73 sq m using serum, plasma, or whole bOrdered By: Violette Abdi on 02-05-2025 GFR/1.73 sq M.predicted among non-blacks MDRD (S/P/Bld) [Vol rate/Area] 97 mL/min/{1.73_m2} >60 [facility] Comment on above: mL/min/1.73m2 CKD-EP I Creatinine Equation (2020) Hematocrit Auto (Bld) [Volum e fraction]Ordered By: Violette Abdi on 02-05-2025 Hematocrit (Bld) [Volume fraction] 40.3 % 40-54 [facility] Hemoglobin measurementOrdere d By: Violette Abdi on 02-05-2025 Hemoglobin (Bld) [Mass/Vol] 13.5 g/dL 13.0-16.5 [facility] MCV (mean corpuscular volume ) determinationOrdered By: Violette Abdi on 02-05-2025 MCV (RBC) [Entitic vol] 88.8 fL 80-[address] [facility] Mean corpuscular hemoglobin (MCH) determinationOrdered By: Violette Adbi on 02-05-2025 MCH (RBC) [Entitic mass] 29.7 pg 27.0-32.0 [facility] Mean corpuscular hemoglobin concentration (MCHC) determinationOrdered By: Violette Abdi on 02-05-2025 MCHC (RBC) [Mass/Vol] 33.5 g/dL 32-36 [facility] Mean platelet volume determi nationOrdered By: Violette Abdi on 02-05-2025 Platelet mean volume (Bld) [Entitic vol] 11.4 fL 6.2-12.0 [facility] Platelet countOrdered By: Benji Crespo on 02-05-2025 Platelets (Bld) [#/Vol] 274 10*3/uL 150-450 [facility] Potassium (Unsp spec) [Mass/ Vol]Ordered By: Violette Abdi on 02-05-2025 Potassium [Moles/Vol] 4.2 mmol/L 3.3-5.1 [facility] Comment on above: Hemolysis present, R esults could be affected. Potassium measurement (mass/ volume)Ordered By: Violette Abdi on 02-05-2025 Potassium (Unsp spec) [Mass/Vol] 4.2 mmol/L 3.3-5.1 [facility] Comment on above: Hemolysis present, R esults could be affected. RBC Auto (Bld) [#/Vol]Ordere d By: Violette Abdi on 02-05-2025 RBC (Bld) [#/Vol] 4.54 10*6/uL Low 4.6-6.2 [facility] Serum creatinine measurement (mass/volume)Ordered By: Violette Abdi on 02-05-2025 Creatinine [Mass/Vol] 0.80 mg/dL 0.70-1.20 [facility] Serum glucose measurement (m ass/volume)Ordered By: Violette Abdi on 02-05-2025 Glucose [Mass/Vol] 81 mg/dL 70-99 [facility] Serum or plasma calcium gael urement (mass/volume)Ordered By: Violette Abdi on 02-05-2025 Calcium [Mass/Vol] 8.7 mg/dL 7.6-11.0 [facility] Serum or plasma urea nitroge n measurement (mass/volume)Ordered By: Violette Abdi on 02-05-2025 Urea nitrogen [Mass/Vol] 14 mg/dL 4-19 [facility] Sodium levelOrdered By: Ramon Abdi on 02-05-2025 Sodium [Moles/Vol] 141 mmol/L 133-145 [facility] White blood cell (WBC) count Ordered By: Violette Abdi on 02-05-2025 WBC (Bld) [#/Vol] 7.4 10*3/uL 4.4-11.0 [facility] CNOVon 01-19-2025 CNOV Office Visit (NEAGCLM) ALFONZO SIMON ([id number]) 1960 M Date Time Provider Department 01/19/25 10:30 AM ELONARD PATEL NEAGCLM During your visit today, we recorded the following information about you: Pulse Blood pressure Weight Height 62/minute 144/82 130.6 kg 1.829 m Leonard Patel MD 01/19/2025 10:31 AM Signed NEUROSURGERY FOLLOW UP OFFICE NOTE Dr. Leonard Patel MD, [facility] Date of visit: January 19, 2025 Patient Name: Mr.Kevin Myrna Simon Date of : 1960 Current Age: [age] year old Sex: male MRN/E# [id number] Last Office Visit: 10/27/2024 CHIEF COMPLAINT: Patient presents with: Established Patient SUBJECTIVE: The patient presents as a follow-up with imaging (MRI B) for evaluation. This is a 64 year old male with a PMHx of BPH, HTN, morbid obesity, parkinsonism and sleep apnea who was seen for consult at [facility] on 04/16/24 after transfer from [facility] for a SAH. Per patients , [...] wheelchair as he was still residing at [facility] in [place]. He reported that he was doing well . He denied any headache, visual changes, speech deficits, seizure activity, new motor or sensory deficits. CT was reviewed and showed almost complete resolution of the fluid with a very small area of residual. 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 Otherwise he should return in January 2025 with an MRI be for evaluation of any residual or recurrent tumor. Today he states he is overall doing better. He continues to reside in a [facility]irement[facility] in [place]. He continues to work with PT. He has resumed Eliquis and is tolerating it well. He presents for image review, evaluation and plan of care. SYMPTOMS: Gait instability, mild left arm weakness PREVIOUS CONSERVATIVE TREATMENTS: custodial facility PT/OT SURGICAL RISK: Smoker: Never Diabetic: [...] Refill hydrALAZ (more content not included)... Normal [facility] MRI BRAIN WO/W IVCONon 01-16 MRI BRAIN WO/W IVCON * * *Final Report* * * DATE OF EXAM: Jan 16 2025 10:47AM [facility] 0295 - MRI BRAIN WO/W [...] bilateral basal ganglia 4. Extensive cerebral microhemorrhages [facility] Transcribe Date/Time: Jan 17 2025 4:05P Dictated by : CHELLY ODEN MD This examination was interpreted and the report reviewed and electronically signed by: CHELLY ODEN MD on Jan 17 2025 4:16PM EST [id number] Normal [facility] BUN/creatinine ratioOrdered By: Violette Abdi on 01-08-2025 Urea nitrogen/Creatinine [Mass ratio] 19.3 mg/mg 10-20 [facility] Basic Metabolic Profile (BMP )on 01-08-2025 Anion gap [Moles/Vol] 11 mmol/L Normal 5-15 [facility] Comment on above: Order Comment: 112.1 Performed By: #### L 100.0500, L500.2500 #### [facility] [address] [place], [address] BUN/CRE 19.3 RATIO Normal 10-20 [facility] Comment on above: Order Comment: 112.1 Performed By: #### L 100.0500, L500.2500 #### [facility] [address] [place], [address] Calcium [Mass/Vol] 9.0 mg/dL Normal 7.6-11.0 [facility] Comment on above: Order Comment: 112.1 Performed By: #### L 100.0500, L500.2500 #### [facility] [address] [place], [address] Chloride [Moles/Vol] 106 mmol/L Normal 96-108 [facility] Comment on above: Order Comment: 112.1 Performed By: #### L 100.0500, L500.2500 #### [facility] [address] [place], [address] CO2 [Moles/Vol] 23.9 mmol/L Normal 22.0-29.0 [facility] Comment on above: Order Comment: 112.1 Performed By: #### L 100.0500, L500.2500 #### [facility] [address] [place], [address] Creatinine [Mass/Vol] 0.82 mg/dL Normal 0.70-1.20 [facility] Comment on above: Order Comment: 112.1 Performed By: #### L 100.0500, L500.2500 #### [facility] [address] [place], [address] GFR/1.73 sq M.predicted among non-blacks MDRD (S/P/Bld) [Vol rate/Area] 97 mL/min/{1.73_m2} Normal >60 [facility] Comment on above: Order Comment: 112.1 Result Comment: mL/m in/1.73m2 CKD-EPI Creatinine Equation (2020) Performed By: #### L 100.0500, L500.2500 #### [facility] [address] [place], [address] Glucose [Mass/Vol] 77 mg/dL Normal 70-99 [facility] Comment on above: Order Comment: 112.1 Performed By: #### L 100.0500, L500.2500 #### [facility] [address] [place], [address] Potassium [Moles/Vol] 4.2 mmol/L Normal 3.3-5.1 [facility] Comment on above: Order Comment: 112.1 Result Comment: Hemo lysis present, Results??could be affected. ?? Performed By: #### L 100.0500, L500.2500 #### [facility] [address] [place], [address] Sodium [Moles/Vol] 141 mmol/L Normal 133-145 [facility] Comment on above: Order Comment: 112.1 Performed By: #### L 100.0500, L500.2500 #### [facility] [address] [place], [address] Urea nitrogen [Mass/Vol] 16 mg/dL Normal 4-19 [facility] Comment on above: Order Comment: 112.1 Performed By: #### L 100.0500, L500.2500 #### [facility] [address] [place], [address] CBC-Complete Blood Cnt No Di ffon 01-08-2025 Erythrocyte distribution width (RBC) [Ratio] 14.0 % Normal 11.6-14.6 [facility] Comment on above: Order Comment: 112.1 Performed By: #### L 100.0500, L500.2500 #### [facility] [address] [place], [address] Hematocrit (Bld) [Volume fraction] 44.2 % Normal 40-54 [facility] Comment on above: Order Comment: 112.1 Performed By: #### L 100.0500, L500.2500 #### [facility] [address] [place], [address] Hemoglobin (Bld) [Mass/Vol] 14.4 g/dL Normal 13.0-16.5 [facility] Comment on above: Order Comment: 112.1 Performed By: #### L 100.0500, L500.2500 #### [facility] [address] [place], [address] MCH (RBC) [Entitic mass] 29.3 pg Normal 27.0-32.0 [facility] Comment on above: Order Comment: 112.1 Performed By: #### L 100.0500, L500.2500 #### [facility] [address] [place], [address] MCHC (RBC) [Mass/Vol] 32.6 g/dL Normal 32-36 [facility] Comment on above: Order Comment: 112.1 Performed By: #### L 100.0500, L500.2500 #### [facility] [address] [place], [address] MCV (RBC) [Entitic vol] 89.8 fL Normal 80-[address] [facility] Comment on above: Order Comment: 112.1 Performed By: #### L 100.0500, L500.2500 #### [facility] [address] [place], [address] Platelet mean volume (Bld) [Entitic vol] 11.6 fL Normal 6.2-12.0 [facility] Comment on above: Order Comment: 112.1 Performed By: #### L 100.0500, L500.2500 #### [facility] [address] [place], [address] Platelets (Bld) [#/Vol] 260 10*3/uL Normal 150-450 [facility] Comment on above: Order Comment: 112.1 Performed By: #### L 100.0500, L500.2500 #### [facility] [address] [place], [address] RBC (Bld) [#/Vol] 4.92 10*6/uL Normal 4.6-6.2 [facility] Comment on above: Order Comment: 112.1 Performed By: #### L 100.0500, L500.2500 #### [facility] [address] [place], [address] RDW SD 46.1 fl High 35.1-43.9 [facility] Comment on above: Order Comment: 112.1 Performed By: #### L 100.0500, L500.2500 #### [facility] [address] [place], [address] WBC (Bld) [#/Vol] 7.3 10*3/uL Normal 4.4-11.0 [facility] Comment on above: Order Comment: 112.1 Performed By: #### L 100.0500, L500.2500 #### [facility] [address] [place], [address] Carbon dioxide measurementOr dered By: Violette Abdi on 01-08-2025 CO2 [Moles/Vol] 23.9 mmol/L 22.0-29.0 [facility] Chloride measurementOrdered By: Violette Abdi on 01-08-2025 Chloride [Moles/Vol] 106 mmol/L 96-108 [facility] Erythrocyte distribution wid th ratioOrdered By: Violette Abdi on 01-08-2025 Erythrocyte distribution width (RBC) [Ratio] 14.0 % 11.6-14.6 [facility] Erythrocyte distribution wid th standard deviationOrdered By: Violette Abdi on 01-08-2025 Erythrocyte distribution width (RBC) [Entitic vol] 46.1 fL High 35.1-43.9 [facility] Erythrocyte distribution width (RBC) [Ratio] 46.1 fl High 35.1-43.9 [facility] GFR/1.73 sq M.predicted jasen g non-blacks MDRD (S/P/Bld) [Vol rate/Area]Ordered By: Violette Abdi on 01-08-2025 Estimated GFR (MDRD) Non-Af Amer 97 >60 [facility] Comment on above: mL/min/1.73m2 CKD-EP I Creatinine Equation (2020) Glomerular filtration rate ( GFR) estimation/1.73 sq m using serum, plasma, or whole bOrdered By: Violette Abdi on 01-08-2025 GFR/1.73 sq M.predicted among non-blacks MDRD (S/P/Bld) [Vol rate/Area] 97 mL/min/{1.73_m2} >60 [facility] Comment on above: mL/min/1.73m2 CKD-EP I Creatinine Equation (2020) Hematocrit Auto (Bld) [Volum e fraction]Ordered By: Violette Abdi on 01-08-2025 Hematocrit (Bld) [Volume fraction] 44.2 % 40-54 [facility] Hemoglobin measurementOrdere d By: Violette Abdi on 01-08-2025 Hemoglobin (Bld) [Mass/Vol] 14.4 g/dL 13.0-16.5 [facility] MCV (mean corpuscular volume ) determinationOrdered By: Violette Abdi on 01-08-2025 MCV (RBC) [Entitic vol] 89.8 fL 80-[address] [facility] Mean corpuscular hemoglobin (MCH) determinationOrdered By: Violette Abdi on 01-08-2025 MCH (RBC) [Entitic mass] 29.3 pg 27.0-32.0 [facility] Mean corpuscular hemoglobin concentration (MCHC) determinationOrdered By: Violette Abdi on 01-08-2025 MCHC (RBC) [Mass/Vol] 32.6 g/dL 32-36 [facility] Mean platelet volume determi nationOrdered By: Violette Abdi on 01-08-2025 Platelet mean volume (Bld) [Entitic vol] 11.6 fL 6.2-12.0 [facility] Platelet countOrdered By: Benji Crespo on 01-08-2025 Platelets (Bld) [#/Vol] 260 10*3/uL 150-450 [facility] RBC Auto (Bld) [#/Vol]Ordere d By: Violette Abdi on 01-08-2025 RBC (Bld) [#/Vol] 4.92 10*6/uL 4.6-6.2 [facility] Serum creatinine measurement (mass/volume)Ordered By: Violette Abdi on 01-08-2025 Creatinine [Mass/Vol] 0.82 mg/dL 0.70-1.20 [facility] Serum glucose measurement (m ass/volume)Ordered By: Violette Abdi on 01-08-2025 Glucose [Mass/Vol] 77 mg/dL 70-99 [facility] Serum or plasma anion gap de termination (moles/volume)Ordered By: Violette Abdi on 01-08-2025 Anion gap [Moles/Vol] 11 mmol/L 5-15 [facility] Serum or plasma calcium gael urement (mass/volume)Ordered By: Violette Abdi on 01-08-2025 Calcium [Mass/Vol] 9.0 mg/dL 7.6-11.0 [facility] Serum or plasma potassium me asurementOrdered By: Violette Abdi on 01-08-2025 Potassium [Moles/Vol] 4.2 mmol/L 3.3-5.1 [facility] Comment on above: Hemolysis present, R esults could be affected. Serum or plasma sodium measu rement (moles/volume)Ordered By: Violette Abdi on 01-08-2025 Sodium [Moles/Vol] 141 mmol/L 133-145 [facility] Serum or plasma urea nitroge n measurement (mass/volume)Ordered By: Violette Abdi on 01-08-2025 Urea nitrogen [Mass/Vol] 16 mg/dL 4-19 [facility] White blood cell (WBC) count Ordered By: Violette Abdi on 01-08-2025 WBC (Bld) [#/Vol] 7.3 10*3/uL 4.4-11.0 [facility] BETA 2 GLYCOPROTEIN, IGGon 0 12-12-2024 Beta 2 glycoprotein 1 IgG IA Qn <9 Normal <20 [facility] Comment on above: Order Comment: Gemini olson Type: BLOOD SPECIMEN Ordering Facility: [facility] Address: [address] [place] [address] Result Comment: <20 SGU Negative 20-80 SGU Low Positive >80 SGU High Positive These results were obtained with the [employer] QUANTA Lite B2 GPI IgG INGRIS. B2 GPI IgG values obtained with different manufacturers' assay methods may not be used interchangeably. The magnitude of the reported IgG levels cannot be correlated to an endpoint titer. Performed By: #### 1 4979-9 #### [facility] CLIA [id number] [address] [place] [address] STATES OF [facility] BETA 2 GLYCOPROTEIN, IGMon 0 12-12-2024 Beta 2 glycoprotein 1 IgM IA Qn <9 Normal <20 [facility] Comment on above: Order Comment: Gemini olson Type: BLOOD SPECIMEN Ordering Facility: [facility] Address: [address] [place] [address] Result Comment: <20 SMU Negative 20-80 [facility] Low Positive >80 [facility] High positive These results were obtained with the [employer] QUANTA Lite B2 GPI IgM INGRIS. B2 GPI IgM values obtained with different manufacturers' assay methods may not be used interchangeably. The magnitude of the reported IgM levels cannot be correlated to an endpoint titer. Performed By: #### 1 4979-9 #### [facility] CLIA [id number] [address] [place] CARDIOLIPIN IGG ABSon 2024 Cardiolipin IgG IA Qn (S) <9.0 Normal <15.0 [facility] Comment on above: Order Comment: Gemini olson Type: BLOOD SPECIMEN Ordering Facility: [facility] Address: [address] [place] [address] Result Comment: <15 GPL Negative 15-20 GPL Indeterminate >20 GPL Positive The following results were obtained with the [employer] QUANTA Lite LILLIAN IgG III INGRIS. Cardiolipin IgG values obtained with the different manufacturers' assay methods may not be used interchangeably. The magnitude of the reported IgG levels cannot be correlated to an endpoint titer. Performed By: #### 1 4979-9 #### [facility] CLIA [id number] [address] [place] [address] CARDIOLIPIN IGM ABSon 2024 Cardiolipin IgM IA Qn (S) 11.1 MPL Normal <12.5 [facility] Comment on above: Order Comment: Speci men Type: BLOOD SPECIMEN Ordering Facility: [facility] Address: [address] [place] [address] Result Comment: <12. 5 MPL Negative 12.5-20 MPL Indeterminate >20 MPL Positive The following results were obtained with the [employer] QUANTA Lite LILLIAN IgM III INGRIS. Cardiolipin IgM values obtained with the different manufacturers' assay methods may not be used interchangeably. The magnitude of the reported IgM levels cannot be correlated to an endpoint titer. ??? Performed By: #### 1 4979-9 #### [facility] CLIA [id number] [address] [place] [address] CBC W Auto Differential pane l (Bld)on 12-12-2024 Basophils (Bld) [#/Vol] 0.03 10*3/uL [facility] Basophils/100 WBC (Bld) 0.5 % [facility] Differential cell count method Nom (Bld) Auto [facility] Eosinophils (Bld) [#/Vol] 0.19 10*3/uL [facility] Eosinophils/100 WBC (Bld) 3.0 % [facility] Erythrocyte distribution width (RBC) [Ratio] 13.9 % 11.5 - 15.0 % [facility] Hematocrit (Bld) [Volume fraction] 43.5 % 39.0 - 51.0 % [facility] Hemoglobin (Bld) [Mass/Vol] 14.4 g/dL 13.0 - 17.0 g/dL [facility] Immature granulocytes (Bld) [#/Vol] [facility] Immature granulocytes/100 WBC (Bld) 0.2 % [facility] Lymphocytes (Bld) [#/Vol] 1.14 10*3/uL [facility] Lymphocytes/100 WBC (Bld) 18.0 % [facility] MCH (RBC) [Entitic mass] 30.1 pg 26.0 - 34.0 pg [facility] MCHC (RBC) [Mass/Vol] 33.1 g/dL 30.5 - 36.0 g/dL [facility] MCV (RBC) [Entitic vol] 91.0 fL 80.0 - 100.0 fL [facility] Monocytes (Bld) [#/Vol] 0.67 10*3/uL [facility] Monocytes/100 WBC (Bld) 10.6 % C [facility] Neutrophils (Bld) [#/Vol] 4.30 10*3/uL [facility] Neutrophils/100 WBC (Bld) 67.7 % [facility] Nucleated RBC (Bld) [#/Vol] [facility] Nucleated RBC/100 WBC (Bld) [Ratio] 0.0 % /100 WBC [facility] Platelet mean volume (Bld) [Entitic vol] 11.2 fL 9.0 - 12.7 fL [facility] Platelets (Bld) [#/Vol] 268 10*3/uL [facility] RBC (Bld) [#/Vol] 4.78 10*6/uL 4.20 - 6.0 0 m/uL [facility] WBC (Bld) [#/Vol] 6.34 10*3/uL [place] Basophils (Bld) [#/Vol] 0.03 10*3/uL Normal <0.11 [facility] Comment on above: Order Comment: Speci men Type: BLOOD SPECIMEN Ordering Facility: [facility] Address: [address] [place] [address] Performed By: #### 1 4979-9 #### [facility] CLIA [id number] [address] [place] Basophils/100 WBC (Bld) 0.5 % Normal A [facility] Comment on above: Order Comment: Speci men Type: BLOOD SPECIMEN Ordering Facility: [facility] Address: [address] [place] [address] Performed By: #### 1 4979-9 #### [facility] CLIA [id number] [address] Differential cell count method Nom (Bld) Auto Normal [facility] Comment on above: Order Comment: Speci men Type: BLOOD SPECIMEN Ordering Facility: [facility] Address: [address] [place] [address] Performed By: #### 1 4979-9 #### [facility] CLIA [id number] [address] [place] Eosinophils (Bld) [#/Vol] 0.19 10*3/uL Normal <0.46 [facility] Comment on above: Order Comment: Speci men Type: BLOOD SPECIMEN Ordering Facility: [facility] Address: [address] [place] [address] Performed By: #### 1 4979-9 #### [facility] CLIA [id number] [address] Eosinophils/100 WBC (Bld) 3.0 % Normal [facility] Comment on above: Order Comment: Speci men Type: BLOOD SPECIMEN Ordering Facility: [facility] Address: [address] [place] [address] Performed By: #### 1 4979-9 #### [facility] CLIA [id number] [address] Erythrocyte distribution width (RBC) [Ratio] 13.9 % Normal 11.5-15.0 [facility] Comment on above: Order Comment: Speci men Type: BLOOD SPECIMEN Ordering Facility: [facility] Address: [address] [place] [address] Performed By: #### 1 4979-9 #### [facility] CLIA [id number] [address] [place] Hematocrit (Bld) [Volume fraction] 43.5 % Normal 39.0-51.0 [facility] Comment on above: Order Comment: Speci men Type: BLOOD SPECIMEN Ordering Facility: [facility] Address: [address] [place] [address] Performed By: #### 1 4979-9 #### [facility] CLIA [id number] [address] [place] Hemoglobin (Bld) [Mass/Vol] 14.4 g/dL Normal 13.0-17.0 [facility] Comment on above: Order Comment: Speci men Type: BLOOD SPECIMEN Ordering Facility: [facility] Address: [address] [place] [address] Performed By: #### 1 4979-9 #### [facility] CLIA [id number] [address] [place] Immature granulocytes (Bld) [#/Vol] 10*3/uL Normal <0.10 [facility] Comment on above: Order Comment: Speci men Type: BLOOD SPECIMEN Ordering Facility: [facility] Address: [address] [place] [address] Performed By: #### 1 4979-9 #### [facility] CLIA [id number] [address] [place] Immature granulocytes/100 WBC (Bld) 0.2 % Normal [facility] Comment on above: Order Comment: Speci men Type: BLOOD SPECIMEN Ordering Facility: [facility] Address: [address] [place] [address] Performed By: #### 1 4979-9 #### [facility] CLIA [id number] [address] [place] Lymphocytes (Bld) [#/Vol] 1.14 10*3/uL Normal 1.00-4.00 [facility] Comment on above: Order Comment: Speci men Type: BLOOD SPECIMEN Ordering Facility: [facility] Address: [address] [place] [address] Performed By: #### 1 4979-9 #### [facility] CLIA [id number] [address] [place] Lymphocytes/100 WBC (Bld) 18.0 % Normal [facility] Comment on above: Order Comment: Speci men Type: BLOOD SPECIMEN Ordering Facility: [facility] Address: [address] [place] [address] Performed By: #### 1 4979-9 #### [facility] CLIA [id number] [address] MCH (RBC) [Entitic mass] 30.1 pg Normal 26.0-34.0 [facility] Comment on above: Order Comment: Speci men Type: BLOOD SPECIMEN Ordering Facility: [facility] Address: [address] [place] [address] Performed By: #### 1 4979-9 #### [facility] CLIA [id number] [address] MCHC (RBC) [Mass/Vol] 33.1 g/dL Normal 30.5-36.0 [facility] Comment on above: Order Comment: Speci men Type: BLOOD SPECIMEN Ordering Facility: [facility] Address: [address] [place] [address] Performed By: #### 1 4979-9 #### [facility] CLIA [id number] [address] MCV (RBC) [Entitic vol] 91.0 fL Normal 80.0-100.0 [facility] Comment on above: Order Comment: Speci men Type: BLOOD SPECIMEN Ordering Facility: [facility] Address: [address] [place] [address] Performed By: #### 1 4979-9 #### [facility] CLIA [id number] [address] Monocytes (Bld) [#/Vol] 0.67 10*3/uL Normal <0.87 [facility] Comment on above: Order Comment: Speci men Type: BLOOD SPECIMEN Ordering Facility: [facility] Address: [address] [place] [address] Performed By: #### 1 4979-9 #### [facility] CLIA [id number] [address] [place] Monocytes/100 WBC (Bld) 10.6 % Normal A [facility] Comment on above: Order Comment: Speci men Type: BLOOD SPECIMEN Ordering Facility: [facility] Address: [address] [place] [address] Performed By: #### 1 4979-9 #### [facility] CLIA [id number] 1 [place] [address] [place] Neutrophils (Bld) [#/Vol] 4.30 10*3/uL Normal 1.45-7.50 [facility] Comment on above: Order Comment: Speci men Type: BLOOD SPECIMEN Ordering Facility: [facility] Address: [address] [place] [address] Performed By: #### 1 4979-9 #### [facility] CLIA [id number] [address] [place] Neutrophils/100 WBC (Bld) 67.7 % Normal [facility] Comment on above: Order Comment: Speci men Type: BLOOD SPECIMEN Ordering Facility: [facility] Address: [address] [place] [address] Performed By: #### 1 4979-9 #### [facility] CLIA [id number] [address] [place] Nucleated RBC (Bld) [#/Vol] 10*3/uL Normal <0.01 [facility] Comment on above: Order Comment: Speci men Type: BLOOD SPECIMEN Ordering Facility: [facility] Address: [address] [place] [address] Performed By: #### 1 4979-9 #### [facility] CLIA [id number] [address] [place] Nucleated RBC/100 WBC (Bld) [Ratio] 0.0 /100 WBC Normal [facility] Comment on above: Order Comment: Speci men Type: BLOOD SPECIMEN Ordering Facility: [facility] Address: [address] [place] [address] Performed By: #### 1 4979-9 #### [facility] CLIA [id number] [address] [place] Platelet mean volume (Bld) [Entitic vol] 11.2 fL Normal 9.0-12.7 [facility] Comment on above: Order Comment: Speci men Type: BLOOD SPECIMEN Ordering Facility: [facility] Address: [address] [place] [address] Performed By: #### 1 4979-9 #### [facility] CLIA [id number] [address] [place] Platelets (Bld) [#/Vol] 268 10*3/uL Normal 150-400 [facility] Comment on above: Order Comment: Speci men Type: BLOOD SPECIMEN Ordering Facility: [facility] Address: [address] [place] [address] Performed By: #### 1 4979-9 #### [facility] CLIA [id number] [address] STATES [facility] RBC (Bld) [#/Vol] 4.78 10*6/uL Normal 4.20-6.00 [facility] Comment on above: Order Comment: Speci men Type: BLOOD SPECIMEN Ordering Facility: [facility] Address: [address] [place] [address] Performed By: #### 1 4979-9 #### [facility] CLIA [id number] [address] [place] WBC (Bld) [#/Vol] 6.34 10*3/uL Normal 3.70-11.00 [facility] Comment on above: Order Comment: Speci men Type: BLOOD SPECIMEN Ordering Facility: [facility] Address: [address] [place] [address] Performed By: #### 1 4979-9 #### [facility] CLIA [id number] [address] OF [facility] CNOVSPon 12-12-2024 CNOVSP Visit (SP) Office ([facility]) ALFONZO SIMON ([id number]) 1960 M Date Time Provider Department 12/12/24 10:00 AM FAITH MOORE During your visit today, we recorded the following information about you: Temperature Pulse Blood pressure Height 97.7 degrees 68/minute 104/70 1.829 m Faith Moore APRN.[facility] 12/12/2024 12:44 PM Signed Hematology Consultation Date: [...] anticoagulation duration. [facility] is [facility] residing [facility] and is here in a wheelchair. [...] edema Neurolog (more content not included)... Normal [facility] Cardiolipin IgA Ser IA-aCnco n 12-12-2024 Cardiolipin IgA IA Qn (S) <9.0 Normal <12.0 [facility] Comment on above: Order Comment: Speci men Type: BLOOD SPECIMEN Ordering Facility: [facility] Address: [address] [place] [address] Result Comment: <12 APL Negative 12-20 APL Indeterminate >20 APL Positive The following results were obtained with the [employer] QUANTA Lite LILLIAN IgA III INGRIS. Cardiolipin IgA values obtained with the different manufacturers' assay methods may not be used interchangeably. The magnitude of the reported IgA levels cannot be correlated to an endpoint titer. Performed By: #### 1 4979-9 #### [facility] CLIA [id number] 1 [place] [address] [place] Comprehensive metabolic 2000 panelon 12-12-2024 Albumin [Mass/Vol] 3.7 g/dL Low 3.9 - 4.9 g/dL [facility] ALP [Catalytic activity/Vol] 121 U/L High 38 - 113 U/L [facility] ALT With P-5'-P [Catalytic activity/Vol] 15 U/L 10 - 54 U/L [facility] Anion gap [Moles/Vol] 11 mmol/L 8 - 15 mmol/L [facility] AST With P-5'-P [Catalytic activity/Vol] 14 U/L 14 - 40 U/L [facility] Bilirubin [Mass/Vol] 0.4 mg/dL 0.2 - 1 .3 mg/dL [facility] Calcium [Mass/Vol] 8.6 mg/dL 8.5 - 10. 2 mg/dL [facility] Chloride [Moles/Vol] 108 mmol/L High 98 - 10 7 mmol/L [facility] CO2 [Moles/Vol] 23 mmol/L 22 - 30 mmol/L [facility] Creatinine [Mass/Vol] 0.91 mg/dL 0.73 - 1.22 mg/dL [facility] GFR/1.73 sq M.predicted among non-blacks MDRD (S/P/Bld) [Vol rate/Area] 94 mL/min/{1.73_m2} - PINF [facility] Comment on above: Estimated Glomerular Filtration Rate [...] 123 mg/dL High 74 - 99 mg/dL [facility] Comment on above: The [place] Diabete s Association (ADA) provides guidance for [...] Standards of Medical Care in Diabetes 2016, [place] Diabetes Association. Diabetes Care. 2016.39(Suppl 1). Interpretation and review of laboratory results Abnormal [facility] Potassium [Moles/Vol] 3.7 mmol/L 3.7 - 5.1 mmol/L [facility] Protein [Mass/Vol] 6.3 g/dL 6.3 - 8.0 g/dL Cl [facility] Sodium [Moles/Vol] 142 mmol/L 136 - 144 mmol/L [facility] Urea nitrogen [Mass/Vol] 20 mg/dL 9 - 24 mg/dL [facility] Albumin [Mass/Vol] 3.7 g/dL Low 3.9-4.9 [facility] Comment on above: Order Comment: Speci men Type: BLOOD SPECIMEN Ordering Facility: [facility] Address: [address] [place] [address] Performed By: #### 2 4323-8 #### [facility] CLIA [id number] [address] [place] ALP [Catalytic activity/Vol] 121 U/L High 38-113 [facility] Comment on above: Order Comment: Speci men Type: BLOOD SPECIMEN Ordering Facility: [facility] Address: [address] [place] [address] Performed By: #### 2 4323-8 #### [facility] CLIA [id number] [address] OF [facility] ALT With P-5'-P [Catalytic activity/Vol] 15 U/L Normal 10-54 [facility] Comment on above: Order Comment: Speci men Type: BLOOD SPECIMEN Ordering Facility: [facility] Address: [address] [place] [address] Performed By: #### 2 4323-8 #### [facility] CLIA [id number] [address] Anion gap [Moles/Vol] 11 mmol/L Normal 8-15 [facility] Comment on above: Order Comment: Speci men Type: BLOOD SPECIMEN Ordering Facility: [facility] Address: [address] [place] [address] Performed By: #### 2 4323-8 #### [facility] CLIA [id number] [address] [place] AST With P-5'-P [Catalytic activity/Vol] 14 U/L Normal 14-40 [facility] Comment on above: Order Comment: Speci men Type: BLOOD SPECIMEN Ordering Facility: [facility] Address: [address] [place] [address] Performed By: #### 2 4323-8 #### [facility] CLIA [id number] 1 [place] [address] [place] Bilirubin [Mass/Vol] 0.4 mg/dL Normal 0.2-1.3 [facility] Comment on above: Order Comment: Speci men Type: BLOOD SPECIMEN Ordering Facility: [facility] Address: [address] [place] [address] Performed By: #### 2 4323-8 #### [facility] CLIA [id number] 1 [place] [address] [place] Calcium [Mass/Vol] 8.6 mg/dL Normal 8.5-10.2 [facility] Comment on above: Order Comment: Speci men Type: BLOOD SPECIMEN Ordering Facility: [facility] Address: [address] [place] [address] Performed By: #### 2 4323-8 #### [facility] CLIA [id number] 1 [place] [address] [place] Chloride [Moles/Vol] 108 mmol/L High 98-107 [facility] Comment on above: Order Comment: Speci men Type: BLOOD SPECIMEN Ordering Facility: [facility] Address: [address] [place] [address] Performed By: #### 2 4323-8 #### [facility] CLIA [id number] [address] [place] CO2 [Moles/Vol] 23 mmol/L Normal 22-30 [facility] Comment on above: Order Comment: Speci men Type: BLOOD SPECIMEN Ordering Facility: [facility] Address: [address] [place] [address] Performed By: #### 2 4323-8 #### [facility] CLIA [id number] 1 [place] [address] [place] Creatinine [Mass/Vol] 0.91 mg/dL Normal 0.73-1.22 [facility] Comment on above: Order Comment: Speci men Type: BLOOD SPECIMEN Ordering Facility: [facility] Address: [address] [place] [address] Performed By: #### 2 4323-8 #### [facility] CLIA [id number] 1 [place] [address] [place] Creatinine and Glomerular filtration rate.predicted panel (S/P/Bld) 94 mL/min/1.73m??? Normal >=60 [facility] Comment on above: Order Comment: Gemini olson Type: BLOOD SPECIMEN Ordering Facility: [facility] Address: [address] [place] [address] Result Comment: Josseline mated Glomerular Filtration Rate [...] GFR. Performed By: #### 2 4323-8 #### [facility] CLIA [id number] 1 [place] [address] [place] Glucose [Mass/Vol] 123 mg/dL High 74-99 [facility] Comment on above: Order Comment: Gemini olson Type: BLOOD SPECIMEN Ordering Facility: [facility] Address: [address] [place] [address] Result Comment: The [place] Diabetes Association (ADA) provides guidance for cutoff [...] Standards of Medical Care in Diabetes 2016, [place] Diabetes Association. Diabetes Care. 2016.39(Suppl 1). Performed By: #### 2 4323-8 #### [facility] CLIA [id number] 1 [place] [address] [place] Potassium [Moles/Vol] 3.7 mmol/L Normal 3.7-5.1 [facility] Comment on above: Order Comment: Speci men Type: BLOOD SPECIMEN Ordering Facility: [facility] Address: [address] [place] [address] Performed By: #### 2 4323-8 #### [facility] CLIA [id number] 1 [place] [address] [place] Protein [Mass/Vol] 6.3 g/dL Normal 6.3-8.0 [facility] Comment on above: Order Comment: Speci men Type: BLOOD SPECIMEN Ordering Facility: [facility] Address: [address] [place] [address] Performed By: #### 2 4323-8 #### [facility] CLIA [id number] 1 [place] [address] [place] Sodium [Moles/Vol] 142 mmol/L Normal 136-144 [facility] Comment on above: Order Comment: Speci men Type: BLOOD SPECIMEN Ordering Facility: [facility] Address: [address] [place] [address] Performed By: #### 2 4323-8 #### [facility] CLIA [id number] 1 [place] [address] [place] Urea nitrogen [Mass/Vol] 20 mg/dL Normal 9-24 [facility] Comment on above: Order Comment: Speci men Type: BLOOD SPECIMEN Ordering Facility: [facility] Address: [address] [place] [address] Performed By: #### 2 4323-8 #### [facility] CLIA [id number] 1 [place] [address] [place] FACTOR V LEIDEN/PCRon 2024 FACTOR V LEIDEN PCR REPORT Normal [facility] Comment on above: Order Comment: Speci men Type: BLOOD SPECIMENOrdering Facility: [facility] Address: [address] [place] [address] Result Comment: Fact or V Leiden PCR Laboratory Accession Number: [id number] Result: NEGATIVE Interpretation: The DNA sample is [...] blood specimen is evaluated for the c.1601G>A (p.Cdi023Asi;[id number]) variant of the F5 gene [RefSeq NM_000130.4; [...] developed and its performance characteristics determined by [facility]'s Pathology and Laboratory Medicine Department. It has not been cleared or approved by the FDA. [facility]'s Pathology and Laboratory Medicine Department is regulated under CLIA as certified to perform high-complexity testing. This test is used for clinical purposes. It should not be regarded as investigational or for research. Testing and interpretation performed at [facility], [address] [place], [place] [address]. CLIA Number: [id number] References: 1) Pedro R, Jackie G, Robert P. The genetics of venous thromboembolism. A meta-analysis involving approximately 120,000 cases and 180,000 controls. Thromb Haemost 2009;102(2):360-70. 2) Inherited Thrombophilias in . ACOG Practice Bulletin.No.197.[place] [employer]etric[employer] Gynec[employer]. Obstet Gynecol 2018;132:e18-34. 3) Henrique CHAVEZ. Factor V Leiden Thrombophilia. Angie Med.2011;13(1):1-16. 4) Pharmacogenomics summary [email or web address] As reviewed by Indigo Michelle MD, PhD Performed By: #### F VLEI ####CLARITY ILLUMINA GARY [id number] [facility] [id number] [place] FIBRINOGENon 12-12-2024 Fibrinogen Coag (PPP) [Mass/Vol] 383 mg/dL 200 - 400 mg/dL [facility] Fibrinogen Coag (PPP) [Mass/ Vol]on 12-12-2024 Interpretation and review of laboratory results Normal [facility] Fibrinogen PPP-mCncon 2024 Fibrinogen Coag (PPP) [Mass/Vol] 383 mg/dL Normal 200-400 [facility] Comment on above: Order Comment: Gemini olson Type: BLOOD SPECIMEN Ordering Facility: [facility] Address: [address] [place] [address] Performed By: #### 1 4979-9 #### [facility] CLIA [id number] [address] PROTHROMBIN GENE PCRon 12-12 PROTHROMBIN GENE MUTATION Normal [facility] Comment on above: Order Comment: Gemini olson Type: BLOOD SPECIMEN Ordering Facility: [facility] Address: [address] [place] [address] Result Comment: Prot hrombin Gene Mutation Laboratory Accession Number: [id number] Result: NORMAL Interpretation: The DNA sample is negative for the c.*97G>A variant (legacy name 30808F>A) in the 3' untranslated region of the Factor II (F2) gene. This result is not associated with an increased risk of thromboembolic disease. Thromboembolic disease is a multifactorial disorder and other causes are not excluded by this result. Methodology: Isolated Genomic DNA from the patient's blood specimen is evaluated for the c*97G>A (g.[id number]) variant of the F2 gene [RefSeq NM_000506.53;GRCh38/hg38] by multiplex polymerase chain reaction (PCR) followed by melting curve analysis. Limitations: This assay is designed to detect the c.*97G>A (47153T>A) variant in the F2 gene. Uncommon variants or single nucleotide polymorphisms may affect binding of probes and may rarely result in false negative, false positive or indeterminate results. This assay does not detect other disease-associated rare variants in F2 or other causes of thromboembolic disease. Disclaimer: This test was developed and its performance characteristics determined by [facility]'s Pathology and Laboratory Medicine Department. It has not been cleared or approved by the FDA. [facility]'s Pathology and Laboratory Medicine Department is regulated under CLIA as certified to perform high-complexity testing. This test is used for clinical purposes. It should not be regarded as investigational or for research. Testing and interpretation performed at [facility], [address] [place] [id number]. CLIA Number: [id number] References: 1) Inheritied Thrombophilias in . ACOG Practice Bulletin. No. 197. [place] [employer]etricians and Gynecologists. Obsete Gynecol 2018;132:e18-34. 2) Viridiana SR, Rianna FR, John PH, and Yoselin BLACK. A common genetic variation in the 3'-untranslated region of the prothrombin gene is associated with elevated plasma prothrombin levels and an increase in venous thrombosis. Blood 88:3698-703, 1995. 3) Alfredo I, Joseluis V, Donnie C, Tho-Dominguez K. Prothrombin 24335J>T: 16 new cases, association with the 06969T>G polymorphism, and literature review. J Thromb Haemost. 2009;9:1585-7. As reviewed by Indigo Michelle MD, PhD Performed By: #### 5 8410-2 #### [facility] CLIA [id number] [address] CNPUnique 12-01-2024 CNPN Telephone ([facility]) ALFONZO SIMON ([id number]) 1960 Date Time Provider Department 12/01/24 KARTHIK HOLLIDAY During your visit today, we [...] Holliday APRN.CNP December 01, 2024 9:03 AM Allergies As [...] Status:Closed by FAN (more content not included)... Normal [facility] Kinsey 11-29-2024 HERMAN Telephone ([facility]) ALFONZO SIMON ([id number]) 1960 M Date Time Provider Department 11/29/24 KARTHIK HOLLIDAY During your visit today, we recorded the following information about you: Viktoria Beyer LPN 11/29/2024 9:13 AM Signed PA done for BuPropion XL 450mg Denied FYI Allergies As of Date: 11/29/2024 (No Known Allergies) Date Reviewed: 11/28/2024 Reviewed by: Karthik Holliday APRN.CANARY RAISER - Fully Assessed Prescriptions as of 11/29/2024 [...] Status:Closed by VIKTORIA BEYER on 11/29/24 Normal [facility] Automated blood erythrocyte countOrdered By: Violette Abdi on 11-06-2024 RBC (Bld) [#/Vol] 4.87 10*6/uL Normal 4.6-6.2 [facility] Comment on above: Order Comment: 112.1 Performed By: #### L 100.0500, L500.2500 #### [facility] [address] [place], [address] Automated blood hematocrit ( percentage)Ordered By: Violette Abdi on 11-06-2024 Hematocrit (Bld) [Volume fraction] 43.3 % Normal 40-54 [facility] Comment on above: Order Comment: 112.1 Performed By: #### L 100.0500, L500.2500 #### [facility] [address] [place], [address] Basic Metabolic Profile (BMP )on 11-06-2024 BUN/CRE 21.4 RATIO High 10-20 [facility] Comment on above: Order Comment: 112.1 Performed By: #### L 100.0500, L500.2500 #### [facility] [address] [place], [address] CA,Total 9.0 mg/dL Normal 8.5-10.1 [facility] Comment on above: Order Comment: 112.1 Performed By: #### L 100.0500, L500.2500 #### [facility] [address] [place], [address] EST GFR - AA 126 mL/min Normal >60 [facility] Comment on above: Order Comment: 112.1 Result Comment: Afri can [place] GFR Calc Performed By: #### L 100.0500, L500.2500 #### [facility] [address] [place], [address] GAP 5 Normal 5-15 [facility] Comment on above: Order Comment: 112.1 Performed By: #### L 100.0500, L500.2500 #### [facility] [address] [place], [address] GFR/1.73 sq M.predicted among non-blacks MDRD (S/P/Bld) [Vol rate/Area] 104 mL/min/{1.73_m2} Normal >60 [facility] Comment on above: Order Comment: 112.1 Result Comment: Non- GFR Calc Performed By: #### L 100.0500, L500.2500 #### [facility] [address] [place], [address] Blood urea nitrogen (BUN)/cr eatinine ratioOrdered By: Violette Abdi on 11-06-2024 Urea nitrogen/Creatinine [Mass ratio] 21.4 mg/mg High 10-20 [facility] CBC-Complete Blood Cnt No Di ffon 11-06-2024 RDW SD 45.2 fl High 35.1-43.9 [facility] Comment on above: Order Comment: 112.1 Performed By: #### L 100.0500, L500.2500 #### [facility] [address] [place], [address] Carbon dioxide measurementOr dered By: Violette Abdi on 11-06-2024 CO2 [Moles/Vol] 26.0 mmol/L Normal 21.0-32.0 [facility] Comment on above: Order Comment: 112.1 Performed By: #### L 100.0500, L500.2500 #### [facility] [address] [place], [address] Chloride measurementOrdered By: Violette Abdi on 11-06-2024 Chloride [Moles/Vol] 109 mmol/L High 98-107 [facility] Comment on above: Order Comment: 112.1 Performed By: #### L 100.0500, L500.2500 #### [facility] [address] [place], [address] Erythrocyte distribution wid th ratioOrdered By: Violette Abdi on 11-06-2024 Erythrocyte distribution width (RBC) [Ratio] 13.9 % Normal 11.6-14.6 [facility] Comment on above: Order Comment: 112.1 Performed By: #### L 100.0500, L500.2500 #### [facility] [address] [place], [address] Erythrocyte distribution wid th standard deviationOrdered By: Violette Abdi on 11-06-2024 Erythrocyte distribution width (RBC) [Entitic vol] 45.2 fL High 35.1-43.9 [facility] Estimated glomerular filtrat ion rate (GFR) AmericanOrdered By: Violette Abdi on 11-06-2024 Estimated GFR (MDRD) Amer 126 mL/min >60 [facility] Comment on above: GFR Calc Glomerular filtration rate ( GFR) estimationOrdered By: Violette Abdi on 11-06-2024 Estimated GFR (MDRD) Non-Af Amer 104 mL/min >60 [facility] Comment on above: Non- GFR Calc Glucose measurementOrdered B y: Violette Abdi on 11-06-2024 Glucose [Mass/Vol] 84 mg/dL Normal 74-106 [facility] Comment on above: Order Comment: 112.1 Performed By: #### L 100.0500, L500.2500 #### [facility] [address] [place], [address] Hemoglobin measurementOrdere d By: Violette Abdi on 11-06-2024 Hemoglobin (Bld) [Mass/Vol] 14.1 g/dL Normal 13.0-16.5 [facility] Comment on above: Order Comment: 112.1 Performed By: #### L 100.0500, L500.2500 #### [facility] [address] [place], [address] MCV (mean corpuscular volume ) determinationOrdered By: Violette Abdi on 11-06-2024 MCV (RBC) [Entitic vol] 88.9 fL Normal 80-[address] [facility] Comment on above: Order Comment: 112.1 Performed By: #### L 100.0500, L500.2500 #### [facility] [address] [place], [address] Mean corpuscular hemoglobin (MCH) determinationOrdered By: Violette Abdi on 11-06-2024 MCH (RBC) [Entitic mass] 29.0 pg Normal 27.0-32.0 [facility] Comment on above: Order Comment: 112.1 Performed By: #### L 100.0500, L500.2500 #### [facility] [address] [place], [address] Mean corpuscular hemoglobin concentration (MCHC) determinationOrdered By: Violette Abdi on 11-06-2024 MCHC (RBC) [Mass/Vol] 32.6 g/dL Normal 32-36 [facility] Comment on above: Order Comment: 112.1 Performed By: #### L 100.0500, L500.2500 #### [facility] [address] [place], [address] Mean platelet volume determi nationOrdered By: Violette Abdi on 11-06-2024 Platelet mean volume (Bld) [Entitic vol] 11.5 fL Normal 6.2-12.0 [facility] Comment on above: Order Comment: 112.1 Performed By: #### L 100.0500, L500.2500 #### [facility] [address] [place], [address] Platelet countOrdered By: Benji Crespo on 11-06-2024 Platelets (Bld) [#/Vol] 296 10*3/uL Normal 150-450 [facility] Comment on above: Order Comment: 112.1 Performed By: #### L 100.0500, L500.2500 #### [facility] [address] [place], [address] Potassium measurementOrdered By: Violette Abdi on 11-06-2024 Potassium [Moles/Vol] 4.1 mmol/L Normal 3.5-5.1 [facility] Comment on above: Order Comment: 112.1 Performed By: #### L 100.0500, L500.2500 #### [facility] [address] [place], [address] Serum anion gap measurementO rdered By: Violette Abdi on 11-06-2024 Anion gap [Moles/Vol] 5 mmol/L 5-15 [facility] Serum or plasma calcium gael urement (mass/volume)Ordered By: Violette Abdi on 11-06-2024 Calcium [Mass/Vol] 9.0 mg/dL 8.5-10.1 [facility] Serum or plasma creatinine m easurement (mass/volume)Ordered By: Violette Abdi on 11-06-2024 Creatinine [Mass/Vol] 0.79 mg/dL Normal 0.70-1.30 [facility] Comment on above: The validity of the calculated GFR & GFRAA in patients over 70 years has not been determined. Clinical correlation is essential. Order Comment: 112.1 Result Comment: The validity of the calculated GFR GFRAA in patients over 70 years has not been determined. Clinical correlation is essential. Performed By: #### L 100.0500, L500.2500 #### [facility] [address] [place], [address] Serum or plasma urea nitroge n measurement (mass/volume)Ordered By: Violette Abdi on 11-06-2024 Urea nitrogen [Mass/Vol] 17 mg/dL Normal 7-18 [facility] Comment on above: Order Comment: 112.1 Performed By: #### L 100.0500, L500.2500 #### [facility] [address] [place], [place], [address] Sodium levelOrdered By: Ramon Abdi on 11-06-2024 Sodium [Moles/Vol] 140 mmol/L Normal 136-145 [facility] Comment on above: Order Comment: 112.1 Performed By: #### L 100.0500, L500.2500 #### [facility] [address] [place], [place], [address] White blood cell (WBC) count Ordered By: Violette Abdi on 11-06-2024 WBC (Bld) [#/Vol] 6.8 10*3/uL Normal 4.4-11.0 [facility] Comment on above: Order Comment: 112.1 Performed By: #### L 100.0500, L500.2500 #### [facility] [address] [place], [place], [address] CNOVon 10-27-2024 CNOV Office Visit ([facility]AG[facility]) ALFONZO SIMON ([id number]) 1960 M Date Time Provider Department 10/27/24 3:00 PM [facility] During your visit today, we recorded the following information about you: Pulse Blood pressure Weight Height 65/minute 132/79 130.6 kg 1.829 m Leonard Patel MD 10/27/2024 3:13 PM Signed NEUROSURGERY FOLLOW UP OFFICE NOTE Dr. Leonard Patel MD, [facility] Date of visit: October 27, 2024 Patient Name: Mr.Kevin Myrna Simon Date of : 1960 Current Age: [age] year old Sex: male MRN/E# [id number] Last Office Visit: 10/13/2024 CHIEF COMPLAINT: No chief complaint on file. SUBJECTIVE: The patient presents as a follow up with CT WO imaging (brain) for evaluation. This is a 64 year old male with a PMHx of BPH, HTN, morbid obesity, parkinsonism and sleep apnea who was seen for consult at [facility] on 04/16/24 after transfer from [place] [facility] for a SAH. Per patients , [...] to do well. He was residing in [facility] and participating in PT/OT/ST. He was moving [...] for possible pseudomeningocele or superimposed infection. The [facility] facility was contacted with recommendation for the [...] in a wheelchair. [facility]. Denies headaches or blurred vision. He presents for image review, evaluation and plan of care. SYMPTOMS: None PREVIOUS CONSERVATIVE TREATMENTS: custodial facility PT/OT SURGICAL RISK: Smoker: Never Diabetic: [...] (HCC) Benign (more content not included)... Normal [facility] CT BRAIN WO IVCONon 10-27-20 CT [...] hemorrhage. Multiple chronic changes, as detailed above. Slasher Tender: PSCB Transcribe Date/Time: Oct 31 2024 8:48A Dictated by : ZEUS SELBY MD This examination was interpreted and the report reviewed and electronically signed by: ZEUS SELBY MD on Oct 31 2024 9:02AM EST [id number] [facility] CNOVon 10-26-2024 CNOV Office Visit (CVAKPO) ALFONZO SIMON ([id number]) 1960 M Date Time Provider Department 10/26/24 10:30 AM ANYA HUANG During your visit today, we recorded the following information about you: Pulse Blood pressure Weight Height 59/minute 135/72 130.6 kg 1.829 m Anya Huang APRN.CANARY RAISER 10/26/2024 11:47 AM Signed [facility] Established Visit Consultation is requested by: No referring provider defined for this encounter. PCP: [place] [address] CEREBROVASCULAR HISTORY Alfonzo Simon is a 64 year old left-handed male presenting for hospital discharge follow up. Admitted to [facility] 04/15-04/25/24. From discharge summary Mr. Alfonzo Simon was directly admitted to [facility] on 04/15/2024 for treatment of injuries [...] discharge. Mr. Simon would be discharged to [facility] rehab in stable condition on 04/25/2024. He [...] new symptoms or clinical events -living at [facility] -prior to this lived at [...] any new symptoms or clinical events -at [facility] - thinks will have to leave soon because of insurance, would be sent home with home c (more content not included)... Normal [facility] CNPNon 10-26-2024 CNPN Telephone (CVAKPO) ALFONZO SIMON ([id number]) 1960 M Date Time Provider Department 10/26/24 ANYA HUANG During your visit today, we recorded the following information about you: Steffen Kaiser 10/26/2024 11:17 AM Signed Submitted through portal Consult to Hematology/Oncology #[id number], to be scheduled at [facility] Steffen Kaiser 11/09/2024 8:26 AM Signed Received through portal Consult to Hematology/Oncology #[id number], patient has been scheduled 11/22/24 with Waldo Heredia in the [facility] Allergies As of Date: 10/26/2024 (No Known [...] Encounter Status:Closed by STEFFEN KAISER on 10/26/24 [facility] CNPN Telephone ([facility]AG[facility]) ALFONZO SIMON ([id number]) 1960 M Date Time Provider Department 10/26/24 LEONARD PATEL [facility] During your visit today, we recorded the following information about you: Sahara Moreira 10/26/2024 1:48 PM Signed Patient facility called in and wanted to verify patient did not have a co pay due tomorrow. I looked at the [facility] CT and follow up and [...] Encounter Status:Closed by SAH[facility] ([facility]AGCLM) ALFONZO SIMON ([id number]) 1960 M Date Time Provider Department 10/13/24 11:45 AM LEONARD PATEL During your visit today, we recorded the following information about you: Pulse Respiration Blood pressure 71/minute 16/minute 146/76 Leonard Patel MD 10/13/2024 11:48 AM Signed NEUROSURGERY FOLLOW UP OFFICE NOTE Dr. Leonard Patel MD, [facility] Date of visit: October 13, 2024 Patient Name: Mr.Kevin Myrna Simon Date of : 1960 Current Age: [age] year old Sex: male MRN/E# [id number] Last Office Visit: June 20, 2024 CHIEF COMPLAINT: Patient presents with: Established Patient SUBJECTIVE: The patient presents as a follow-up with imaging (MRI B) for evaluation. This is a 64 year old male with a PMHx of BPH, HTN, morbid obesity, parkinsonism and sleep apnea who was seen for consult at [facility] on 04/16/24 after transfer from [place] [facility] for a SAH. Per patients , [...] to do well. He was residing in [place] and participating in PT/OT/ST. He was moving [...] for possible pseudomeningocele or superimposed infection. The [facility] facility was contacted with recommendation for the patient to be evaluated in person prompting his visit today. Since last visit he states that he has been well.. He presents for image review, evaluation and plan of care. SYMPTOMS: None PREVIOUS CONSERVATIVE TREATMENTS: custodial facility PT/OT SURGICAL RISK: Smoker: Never Diabetic: [...] packet Take (more content not included)... Normal [facility] Kinsey 10-10-2024 HERMAN Telephone ([facility]AG[facility]) ALFONZO SIMON ([id number]) 1960 M Date Time Provider Department 10/10/24 AGATA DEL TORO NEAGCLM During your visit today, we recorded the following information about you: Agata Del Toro APRN.CANARY RAISER 10/10/2024 10:37 AM Signed Contacted nurse, Elizabeth at [facility] [phone] after receiving results of recent MRI brain. [...] Will have our schedulers reach out to [facility] and scheduled an appointment for this week. Agata Del Toro APRN-[facility] Neurosurgery Nurse Practitioner [facility] 10:37 AM 10/10/2024 Allergies As of Date: [...] pulmonale,* History of intracranial hemorrhage [Z86.79] 09/24/2024 Encounter Status:Closed by AGATA DEL TORO on 10/10/24 Normal [facility] CBC-Complete Blood Cnt No Di ffon 10-06-2024 Erythrocyte distribution width (RBC) [Ratio] 14.4 % Normal 11.6-14.6 [facility] Comment on above: Order Comment: 112.1 Performed By: #### L 500.4050, L100.0500 #### [facility] [address] [place], [place], [address] Hematocrit (Bld) [Volume fraction] 42.2 % Normal 40-54 [facility] Comment on above: Order Comment: 112.1 Performed By: #### L 500.4050, L100.0500 #### [facility] [address] [place], [address] Hemoglobin (Bld) [Mass/Vol] 13.7 g/dL Normal 13.0-16.5 [facility] Comment on above: Order Comment: 112.1 Performed By: #### L 500.4050, L100.0500 #### [facility] [address] [place], [address] MCH (RBC) [Entitic mass] 29.5 pg Normal 27.0-32.0 [facility] Comment on above: Order Comment: 112.1 Performed By: #### L 500.4050, L100.0500 #### [facility] [address] [place], [address] MCHC (RBC) [Mass/Vol] 32.5 g/dL Normal 32-36 [facility] Comment on above: Order Comment: 112.1 Performed By: #### L 500.4050, L100.0500 #### [facility] [address] [place], [address] MCV (RBC) [Entitic vol] 90.8 fL Normal 80-[address] [facility] Comment on above: Order Comment: 112.1 Performed By: #### L 500.4050, L100.0500 #### [facility] [address] [place], [address] Platelet mean volume (Bld) [Entitic vol] 11.8 fL Normal 6.2-12.0 [facility] Comment on above: Order Comment: 112.1 Performed By: #### L 500.4050, L100.0500 #### [facility] [address] [place], [address] Platelets (Bld) [#/Vol] 292 10*3/uL Normal 150-450 [facility] Comment on above: Order Comment: 112.1 Performed By: #### L 500.4050, L100.0500 #### [facility] [address] [place], [address] RBC (Bld) [#/Vol] 4.65 10*6/uL Normal 4.6-6.2 [facility] Comment on above: Order Comment: 112.1 Performed By: #### L 500.4050, L100.0500 #### [facility] [address] [place], [address] RDW SD 48.1 fl High 35.1-43.9 [facility] Comment on above: Order Comment: 112.1 Performed By: #### L 500.4050, L100.0500 #### [facility] [address] [place], [address] WBC (Bld) [#/Vol] 8.9 10*3/uL Normal 4.4-11.0 [facility] Comment on above: Order Comment: 112.1 Performed By: #### L 500.4050, L100.0500 #### [facility] [address] [place], [address] Comprehensive Metabolic Prof [facility] 10-06-2024 Albumin [Mass/Vol] 3.2 g/dL Normal 3.2-5.0 [facility] Comment on above: Order Comment: 112.1 Performed By: #### L 500.4050, L100.0500 #### [facility] [address] [place], [address] Albumin/Globulin [Mass ratio] 1.0 {ratio} Normal 0.9-2.4 [facility] Comment on above: Order Comment: 112.1 Performed By: #### L 500.4050, L100.0500 #### [facility] [address] [place], [address] ALK P 126 U/L High 45-117 [facility] Comment on above: Order Comment: 112.1 Performed By: #### L 500.4050, L100.0500 #### [facility] [address] [place], [address] ALT [Catalytic activity/Vol] 22 U/L Normal 16-61 [facility] Comment on above: Order Comment: 112.1 Performed By: #### L 500.4050, L100.0500 #### [facility] [address] [place], [address] AST [Catalytic activity/Vol] 15 U/L Normal 15-37 [facility] Comment on above: Order Comment: 112.1 Performed By: #### L 500.4050, L100.0500 #### [facility] [address] [place], [address] Bilirubin [Mass/Vol] 0.40 mg/dL Normal 0.20-1.00 [facility] [facility] Comment on above: Order Comment: 112.1 Result Comment: For patients on eltrombopag therapy, use of Dimension [place] TBIL is not recommended. Performed By: #### L 500.4050, L100.0500 #### [facility] [address] [place], [address] BUN/CRE 25.0 RATIO High 10-20 [facility] Comment on above: Order Comment: 112.1 Performed By: #### L 500.4050, L100.0500 #### [facility] [address] [place], [address] CA,Total 8.6 mg/dL Normal 8.5-10.1 [facility] Comment on above: Order Comment: 112.1 Performed By: #### L 500.4050, L100.0500 #### [facility] [address] [place], [address] Chloride [Moles/Vol] 112 mmol/L High 98-107 [facility] Comment on above: Order Comment: 112.1 Performed By: #### L 500.4050, L100.0500 #### [facility] [address] [place], [address] CO2 [Moles/Vol] 25.0 mmol/L Normal 21.0-32.0 [facility] Comment on above: Order Comment: 112.1 Performed By: #### L 500.4050, L100.0500 #### [facility] [address] [place], [address] Creatinine [Mass/Vol] 0.76 mg/dL Normal 0.70-1.30 [facility] Comment on above: Order Comment: 112.1 Result Comment: The validity of the calculated GFR GFRAA in patients over 70 years has not been determined. Clinical correlation is essential. Performed By: #### L 500.4050, L100.0500 #### [facility] [address] [place], [address] EST GFR - AA 132 mL/min Normal >60 [facility] Comment on above: Order Comment: 112.1 Result Comment: Afri can [place] GFR Calc Performed By: #### L 500.4050, L100.0500 #### [facility] [address] [place], [address] GAP 5 Normal 5-15 [facility] Comment on above: Order Comment: 112.1 Performed By: #### L 500.4050, L100.0500 #### [facility] [address] [place], [address] GFR/1.73 sq M.predicted among non-blacks MDRD (S/P/Bld) [Vol rate/Area] 109 mL/min/{1.73_m2} Normal >60 [facility] Comment on above: Order Comment: 112.1 Result Comment: Non- GFR Calc Performed By: #### L 500.4050, L100.0500 #### [facility] [address] [place], [address] Globulin (S) [Mass/Vol] 3.1 g/dL Normal 2.2-4.2 [facility] Comment on above: Order Comment: 112.1 Performed By: #### L 500.4050, L100.0500 #### [facility] [address] [place], [address] Glucose [Mass/Vol] 83 mg/dL Normal 74-106 [facility] Comment on above: Order Comment: 112.1 Performed By: #### L 500.4050, L100.0500 #### [facility] [address] [place], [address] Potassium [Moles/Vol] 3.9 mmol/L Normal 3.5-5.1 [facility] Comment on above: Order Comment: 112.1 Performed By: #### L 500.4050, L100.0500 #### [facility] [address] [place], [address] Sodium [Moles/Vol] 142 mmol/L Normal 136-145 [facility] Comment on above: Order Comment: 112.1 Performed By: #### L 500.4050, L100.0500 #### [facility] [address] [place], [address] T PROT 6.3 g/dL Low 6.4-8.2 [facility] Comment on above: Order Comment: 112.1 Performed By: #### L 500.4050, L100.0500 #### [facility] [address] [place], [address] Urea nitrogen [Mass/Vol] 19 mg/dL High 7-18 [facility] Comment on above: Order Comment: 112.1 Performed By: #### L 500.4050, L100.0500 #### [facility] [address] [place], [address] [facility] ALFONZO SIMON ([id number]) 1960 M Date Time Provider Department 10/04/24 ANYA HUANG [facility] During your visit today, we recorded the following information about you: Anya Huang APRN.CANARY RAISER 10/04/2024 10:03 AM Signed MRI results as [...] and neurosurgical follow-up is recommended. Anya Huang APRN.CANARY RAISER 10/09/2024 10:28 AM Signed Hello, Can you please contact patient to see if he has any symptoms of infection? Sees Neurosurgery through [facility] for post traumatic SDH evacuation and excision of meningioma and needs to speak with their office/see them [place]. Fwd to neurosurgery provider but 10/04 but I don't see anything documented in chart, may be out of office? Geni Calloway RN 10/09/2024 10:58 AM Signed Call to Dr. Patel's office [phone], advised that pt needs an appt [place] based on MRI. 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 Normal [facility] MRI BRAIN WO IVCONon 10-02-2 024 MRI BRAIN WO IVCON * * [...] be communicated with the ordering provider via [employer] staff message or phone message by [facility] within 2 business days of report finalization. --END OF FINDING-- Slasher Tender: ALISEB Transcribe Date/Time: Oct 03 2024 2:10P Dictated by : ZEUS SELBY MD This examination was interpreted and the report reviewed and electronically signed by: ZEUS SELBY MD on Oct 03 2024 2:44PM EST [id number] CN ACTIONABLE Invalid Interpretation Code [facility] CNDSon 09-28-2024 [facility] HNO ID: [id number] Author: FLORENCIO FAIR MD Service: Hospital Medicine [...] MD Attending: Deedee Maxwell MD Primary Service: [facility] REASON FOR HOSPITALIZATION: PE, DVT DIAGNOSIS: Principal [...] fraction. He was seen by therapy and [facility] facility was recommended he was seen by [...] PATIENT CONDITION AT DISCHARGE: Stable DISCHARGE DISPOSITION: Prison Facility Prison Facility Discharge Physical Exam: VITAL SIGNS: BP [...] APPOINTMENTS: Follow Up with PCP: Karthik Holliday APRN.CANARY RAISER Future Ap (more content not included)... Normal [facility] Basic metabolic 2000 panelon 09-27-2024 Anion gap [Moles/Vol] 12 mmol/L Normal 8-15 [facility] Comment on above: Order Comment: Speci men Type: BLOOD SPECIMEN Ordering Facility: [facility] Address: [address] [place] [address] Performed By: #### 1 4979-9 #### [facility] CLIA [id number] [address] [place] [address] [place] Calcium [Mass/Vol] 8.6 mg/dL Normal 8.5-10.2 [facility] Comment on above: Order Comment: Speci men Type: BLOOD SPECIMEN Ordering Facility: [facility] Address: [address] [id number] Performed By: #### 1 4979-9 #### [facility] CLIA [id number] [address] [place] [address] [place] Chloride [Moles/Vol] 104 mmol/L Normal 98-107 [facility] Comment on above: Order Comment: Speci men Type: BLOOD SPECIMEN Ordering Facility: [facility] Address: [address] [id number] Performed By: #### 1 4979-9 #### [facility] CLIA [id number] [address] [place] CO2 [Moles/Vol] 23 mmol/L Normal 22-30 [facility] Comment on above: Order Comment: Speci men Type: BLOOD SPECIMEN Ordering Facility: [facility] Address: [address] [place] [address] Performed By: #### 1 4979-9 #### [facility] CLIA [id number] [address] [place] Creatinine [Mass/Vol] 0.75 mg/dL Normal 0.73-1.22 [facility] Comment on above: Order Comment: Speci men Type: BLOOD SPECIMEN Ordering Facility: [facility] Address: [address] [place] [address] Performed By: #### 1 4979-9 #### [facility] CLIA [id number] [address] Creatinine and Glomerular filtration rate.predicted panel (S/P/Bld) 100 mL/min/1.73m??? Normal >=60 [facility] Comment on above: Order Comment: Speci men Type: BLOOD SPECIMEN Ordering Facility: [facility] Address: [address] [place] [address] Result Comment: Josseline mated Glomerular Filtration Rate [...] GFR. Performed By: #### 1 4979-9 #### [facility] CLIA [id number] [address] OF [facility] Glucose [Mass/Vol] 95 mg/dL Normal 74-99 [facility] Comment on above: Order Comment: Speci men Type: BLOOD SPECIMEN Ordering Facility: [facility] Address: [address] [place] [address] Result Comment: The [place] Diabetes Association (ADA) provides guidance for cutoff [...] Standards of Medical Care in Diabetes 2016, [place] Diabetes Association. Diabetes Care. 2016.39(Suppl 1). Performed By: #### 1 4979-9 #### [facility] CLIA [id number] [address] [place] [address] [place] Potassium [Moles/Vol] 3.9 mmol/L Normal 3.7-5.1 [facility] Comment on above: Order Comment: Speci men Type: BLOOD SPECIMEN Ordering Facility: [facility] Address: [address] [place] [address] Performed By: #### 1 4979-9 #### [facility] CLIA [id number] [address] [place] [address] [place] Sodium [Moles/Vol] 139 mmol/L Normal 136-144 [facility] Comment on above: Order Comment: Speci men Type: BLOOD SPECIMEN Ordering Facility: [facility] Address: [address] [place] [address] Performed By: #### 1 4979-9 #### [facility] CLIA [id number] [address] [place] [address] [place] Urea nitrogen [Mass/Vol] 12 mg/dL Normal 9-24 [facility] Comment on above: Order Comment: Speci men Type: BLOOD SPECIMEN Ordering Facility: [facility] Address: [address] [place] [address] Performed By: #### 1 4979-9 #### [facility] CLIA [id number] [address] OF [facility] CBC W Auto Differential pane l (Bld)on 09-27-2024 Basophils (Bld) [#/Vol] 0.03 10*3/uL Normal <0.11 [facility] Comment on above: Order Comment: Speci men Type: BLOOD SPECIMEN Ordering Facility: [facility] Address: [address] [place] [address] Performed By: #### 5 8410-2 #### [facility] CLIA [id number] [address] Basophils/100 WBC (Bld) 0.4 % Normal A [facility] Comment on above: Order Comment: Speci men Type: BLOOD SPECIMEN Ordering Facility: [facility] Address: [address] [place] [address] Performed By: #### 5 8410-2 #### [facility] CLIA [id number] [address] Differential cell count method Nom (Bld) Auto Normal [facility] Comment on above: Order Comment: Speci men Type: BLOOD SPECIMEN Ordering Facility: [facility] Address: [address] [place] [address] Performed By: #### 5 8410-2 #### [facility] CLIA [id number] [address] [place] Eosinophils (Bld) [#/Vol] 0.22 10*3/uL Normal <0.46 [facility] Comment on above: Order Comment: Speci men Type: BLOOD SPECIMEN Ordering Facility: [facility] Address: [address] [place] [address] Performed By: #### 5 8410-2 #### [facility] CLIA [id number] [address] Eosinophils/100 WBC (Bld) 2.7 % Normal [facility] Comment on above: Order Comment: Speci men Type: BLOOD SPECIMEN Ordering Facility: [facility] Address: [address] [place] [address] Performed By: #### 5 8410-2 #### [facility] CLIA [id number] [address] [place] Erythrocyte distribution width (RBC) [Ratio] 14.2 % Normal 11.5-15.0 [facility] Comment on above: Order Comment: Speci men Type: BLOOD SPECIMEN Ordering Facility: [facility] Address: [address] [place] [address] Performed By: #### 5 8410-2 #### [facility] CLIA [id number] [address] [place] Hematocrit (Bld) [Volume fraction] 39.1 % Normal 39.0-51.0 [facility] Comment on above: Order Comment: Speci men Type: BLOOD SPECIMEN Ordering Facility: [facility] Address: [address] [place] [address] Performed By: #### 5 8410-2 #### [facility] CLIA [id number] [address] [place] Hemoglobin (Bld) [Mass/Vol] 12.7 g/dL Low 13.0-17.0 [facility] Comment on above: Order Comment: Speci men Type: BLOOD SPECIMEN Ordering Facility: [facility] Address: [address] [place] [address] Performed By: #### 5 8410-2 #### [facility] CLIA [id number] [address] [place] Immature granulocytes (Bld) [#/Vol] 0.04 10*3/uL Normal <0.10 [facility] Comment on above: Order Comment: Speci men Type: BLOOD SPECIMEN Ordering Facility: [facility] Address: [address] [place] [address] Performed By: #### 5 8410-2 #### [facility] CLIA [id number] [address] Immature granulocytes/100 WBC (Bld) 0.5 % Normal [facility] Comment on above: Order Comment: Speci men Type: BLOOD SPECIMEN Ordering Facility: [facility] Address: [address] [place] [address] Performed By: #### 5 8410-2 #### [facility] CLIA [id number] [address] [place] Lymphocytes (Bld) [#/Vol] 1.20 10*3/uL Normal 1.00-4.00 [facility] Comment on above: Order Comment: Speci men Type: BLOOD SPECIMEN Ordering Facility: [facility] Address: [address] [place] [address] Performed By: #### 5 8410-2 #### [facility] CLIA [id number] [address] Lymphocytes/100 WBC (Bld) 14.9 % Normal [facility] Comment on above: Order Comment: Speci men Type: BLOOD SPECIMEN Ordering Facility: [facility] Address: [address] [place] [address] Performed By: #### 5 8410-2 #### [facility] CLIA [id number] [address] MCH (RBC) [Entitic mass] 29.6 pg Normal 26.0-34.0 [facility] Comment on above: Order Comment: Speci men Type: BLOOD SPECIMEN Ordering Facility: [facility] Address: [address] [place] [address] Performed By: #### 5 8410-2 #### [facility] CLIA [id number] [address] OF [facility] MCHC (RBC) [Mass/Vol] 32.5 g/dL Normal 30.5-36.0 [facility] Comment on above: Order Comment: Speci men Type: BLOOD SPECIMEN Ordering Facility: [facility] Address: [address] [place] [address] Performed By: #### 5 8410-2 #### [facility] CLIA [id number] [address] OF [facility] MCV (RBC) [Entitic vol] 91.1 fL Normal 80.0-100.0 A [facility] Comment on above: Order Comment: Speci men Type: BLOOD SPECIMEN Ordering Facility: [facility] Address: [address] [place] [address] Performed By: #### 5 8410-2 #### [facility] CLIA [id number] [address] [place] Monocytes (Bld) [#/Vol] 0.59 10*3/uL Normal <0.87 [facility] Comment on above: Order Comment: Speci men Type: BLOOD SPECIMEN Ordering Facility: [facility] Address: [address] [place] [address] Performed By: #### 5 8410-2 #### [facility] CLIA [id number] [address] Monocytes/100 WBC (Bld) 7.3 % Normal [facility] Comment on above: Order Comment: Speci men Type: BLOOD SPECIMEN Ordering Facility: [facility] Address: [address] [place] [address] Performed By: #### 5 8410-2 #### [facility] CLIA [id number] [address] [place] Neutrophils (Bld) [#/Vol] 5.99 10*3/uL Normal 1.45-7.50 [facility] Comment on above: Order Comment: Speci men Type: BLOOD SPECIMEN Ordering Facility: [facility] Address: [address] [place] [address] Performed By: #### 5 8410-2 #### [facility] CLIA [id number] [address] [place] Neutrophils/100 WBC (Bld) 74.2 % Normal [facility] Comment on above: Order Comment: Speci men Type: BLOOD SPECIMEN Ordering Facility: [facility] Address: [address] [place] [address] Performed By: #### 5 8410-2 #### [facility] CLIA [id number] [address] [place] Nucleated RBC (Bld) [#/Vol] 10*3/uL Normal <0.01 [facility] Comment on above: Order Comment: Speci men Type: BLOOD SPECIMEN Ordering Facility: [facility] Address: [address] [place] [address] Performed By: #### 5 8410-2 #### [facility] CLIA [id number] [address] OF [facility] Nucleated RBC/100 WBC (Bld) [Ratio] 0.0 /100 WBC Normal [facility] Comment on above: Order Comment: Speci men Type: BLOOD SPECIMEN Ordering Facility: [facility] Address: [address] [place] [address] Performed By: #### 5 8410-2 #### [facility] CLIA [id number] [address] [place] Platelet mean volume (Bld) [Entitic vol] 11.4 fL Normal 9.0-12.7 [facility] Comment on above: Order Comment: Speci men Type: BLOOD SPECIMEN Ordering Facility: [facility] Address: [address] [place] [address] Performed By: #### 5 8410-2 #### [facility] CLIA [id number] [address] [place] Platelets (Bld) [#/Vol] 228 10*3/uL Normal 150-400 [facility] Comment on above: Order Comment: Speci men Type: BLOOD SPECIMEN Ordering Facility: [facility] Address: [address] [place] [address] Performed By: #### 5 8410-2 #### [facility] CLIA [id number] [address] [place] RBC (Bld) [#/Vol] 4.29 10*6/uL Normal 4.20-6.00 [facility] Comment on above: Order Comment: Speci men Type: BLOOD SPECIMEN Ordering Facility: [facility] Address: [address] [place] [address] Performed By: #### 5 8410-2 #### [facility] CLIA [id number] 1 [place] [address] [place] WBC (Bld) [#/Vol] 8.07 10*3/uL Normal 3.70-11.00 [facility] Comment on above: Order Comment: Speci men Type: BLOOD SPECIMEN Ordering Facility: [facility] Address: [address] [place] [address] Performed By: #### 5 8410-2 #### [facility] CLIA [id number] [address] [id number] [place] THERAPY NTon 09-27-2024 THERAPY NT HNO ID: [id number] Author: CATRACHITA BRANHAM, EMELIR/L Service: Occupational Therapy Author Type: Occupational Therapist Type: Therapy (PT/OT/Speech/Resp) Filed: 09/27/2024 16:38 Note Text: Occupational Therapy Treatment Summary SERVICE DATE: 09/27/2024 SERVICE TIME: 1543 to 1624 ROOM: [place] [address] OT 6 Clicks Score: 14 DISCHARGE RECOMMENDATIONS [...] approved him being on anticoagulant, if needs oysterman they recc may benefit from IVC filter [...] end of august, transitioned to staying at [facility] [place] for about a week prior to being readmitted for current medical issues. Pt was getting help for ADLs and mobility from since being home; prior to [facility] independent with device Baseline Cognition: Oriented to self, Oriented to place, Oriented to time, Oriented to situation SUBJECTIVE pt agreeable to OT, wants to try to get to [facility] COGNITION Responsiveness: Alert, Awake Follows Commands: 2-step Commands Executive Function Deficits: Safety Awareness, Problem Solving, Insight to Deficits, Judgement THERAPY DIAGNOSIS Reduced mobility-other, Decreased activities of daily living (ADL), Muscle Weakness (generalized), Unsteadiness on feet, Abnormalities of gait and mobility-other TREATMENT INTERVENTIONS Self Snf Management (23344) Timed Code Treatment (minutes): 25 Skilled Treatment Time (minutes): 41 $ Evaluation - Moderate (37362) Billed Units: 1 unit Self Snf Management (98568) Treatment Minutes: 25 $ Self Snf Management (39441) Billed Units: 2 units TRAINING AND EDUCATION PROVIDED Bed Mobility, Adaptive Equipment/DME, Benefits of In-Hospital Mobility, Functional Mobility Involving ADLs, Expected Functional Level, Role of Occupational Therapy, Sitting Balance to Improve [place] with ADLs/Self-Care, Standing Balance to Improve [place] with ADLs/Self-Care, Toileting , Transfer - Sit [...] Level Additi (more content not included)... Normal [facility] CBC panel Auto (Bld)on 09-26 Erythrocyte distribution width (RBC) [Ratio] 14.5 % Normal 11.5-15.0 [facility] Comment on above: Order Comment: Gemini olson Type: BLOOD SPECIMEN Ordering Facility: [facility] Address: [address] [place] [address] Performed By: #### 5 8410-2 #### [facility] CLIA [id number] [address] [place] [address] STATES OF [facility] Hematocrit (Bld) [Volume fraction] 36.2 % Low 39.0-51.0 [facility] Comment on above: Order Comment: Gemini olson Type: BLOOD SPECIMEN Ordering Facility: [facility] Address: [address] [place] [address] Performed By: #### 5 8410-2 #### [facility] CLIA [id number] [address] [place] [address] [place] Hemoglobin (Bld) [Mass/Vol] 12.0 g/dL Low 13.0-17.0 [facility] Comment on above: Order Comment: Gemini olson Type: BLOOD SPECIMEN Ordering Facility: [facility] Address: [address] [place] [address] Performed By: #### 5 8410-2 #### [facility] CLIA [id number] [address] [place] MCH (RBC) [Entitic mass] 29.8 pg Normal 26.0-34.0 [facility] Comment on above: Order Comment: Speci men Type: BLOOD SPECIMEN Ordering Facility: [facility] Address: [address] [place] [address] Performed By: #### 5 8410-2 #### [facility] CLIA [id number] [address] MCHC (RBC) [Mass/Vol] 33.1 g/dL Normal 30.5-36.0 [facility] Comment on above: Order Comment: Speci men Type: BLOOD SPECIMEN Ordering Facility: [facility] Address: [address] [place] [address] Performed By: #### 5 8410-2 #### [facility] CLIA [id number] [address] MCV (RBC) [Entitic vol] 89.8 fL Normal 80.0-100.0 [facility] Comment on above: Order Comment: Speci men Type: BLOOD SPECIMEN Ordering Facility: [facility] Address: [address] [place] [address] Performed By: #### 5 8410-2 #### [facility] CLIA [id number] [address] Nucleated RBC (Bld) [#/Vol] 10*3/uL Normal <0.01 [facility] Comment on above: Order Comment: Speci men Type: BLOOD SPECIMEN Ordering Facility: [facility] Address: [address] [place] [address] Performed By: #### 5 8410-2 #### [facility] CLIA [id number] [address] Platelet mean volume (Bld) [Entitic vol] 11.7 fL Normal 9.0-12.7 [facility] Comment on above: Order Comment: Speci men Type: BLOOD SPECIMEN Ordering Facility: [facility] Address: [address] [place] [address] Performed By: #### 5 8410-2 #### [facility] CLIA [id number] [address] STATES OF [place] Platelets (Bld) [#/Vol] 236 10*3/uL Normal 150-400 [facility] Comment on above: Order Comment: Speci men Type: BLOOD SPECIMEN Ordering Facility: [facility] Address: [address] [place] [address] Performed By: #### 5 8410-2 #### [facility] CLIA [id number] [address] [place] RBC (Bld) [#/Vol] 4.03 10*6/uL Low 4.20-6.00 [facility] Comment on above: Order Comment: Speci men Type: BLOOD SPECIMEN Ordering Facility: [facility] Address: [address] [place] [address] Performed By: #### 5 8410-2 #### [facility] CLIA [id number] [address] WBC (Bld) [#/Vol] 8.18 10*3/uL Normal 3.70-11.00 [facility] Comment on above: Order Comment: Speci men Type: BLOOD SPECIMEN Ordering Facility: [facility] Address: [address] [place] [address] Performed By: #### 5 8410-2 #### [facility] CLIA [id number] [address] PT EDon 09-26-2024 PT ED HNO ID: [id number] Author: RANDEE HAGAN RPh Service: Pharmacy Author [...] pharmacy if inpatient anticoagulation is needed. Randee Hagan, [facility] Normal [facility] THERAPY NTon 09-26-2024 THERAPY NT HNO ID: [id number] Author: SHAYNE NAIK, PT Service: Physical Therapy Author Type: Physical Therapist Type: Therapy (PT/OT/Speech/Resp) Filed: 09/26/2024 16:57 Note Text: Physical Therapy Evaluation Summary SERVICE DATE: 09/26/2024 SERVICE TIME: 1527 to 1550 ROOM: [place] [address] PT 6 Clicks Score: 10 DISCHARGE RECOMMENDATIONS [...] approved him being on anticoagulant, if needs oysterman they recc may benefit from IVC filter [...] end of august, transitioned to staying at [facility] [place] [facility] for about a week prior to being readmitted for current medical issues. Pt was getting help for ADLs and mobility from since being home; prior to [facility] independent with device SUBJECTIVE Pleasant and agreeable to PT. THERAPY DIAGNOSIS Reduced mobility-other, Muscle Weakness (generalized), Unsteadiness on feet, Abnormalities of gait and mobility-other, General symptoms and signs-other, Difficulty walking-musculoskele mable TREATMENT INTERVENTIONS Evaluation, Therapeutic Activity (69745) Timed Code Treatment (minutes): 8 Skilled Treatment Time (minutes): 23 $ Evaluation-Moderate (42812) Billed Units: 1 unit Therapeutic Activity (15548) Treatment Minutes: 8 $ Therapeutic Activity (33087) Billed Units: 1 unit See grid as [...] Stand with (more content not included)... Normal [facility] aPTT PPPon 09-26-2024 aPTT Coag (PPP) [Time] 52.4 s High 23.0-32.4 [facility] Comment on above: Order Comment: Speci men Type: BLOOD SPECIMEN Ordering Facility: [facility] Address: [address] [place] [address] Performed By: #### 1 4979-9 #### [facility] CLIA [id number] [address] OF [facility] CBC panel Auto (Bld)on 09-25 Erythrocyte distribution width (RBC) [Ratio] 14.4 % Normal 11.5-15.0 [facility] Comment on above: Order Comment: Speci men Type: BLOOD SPECIMEN Ordering Facility: [facility] Address: [address] [place] [address] Performed By: #### 5 8410-2 #### [facility] CLIA [id number] [address] [place] [address] OF [facility] Hematocrit (Bld) [Volume fraction] 38.3 % Low 39.0-51.0 [facility] Comment on above: Order Comment: Speci men Type: BLOOD SPECIMEN Ordering Facility: [facility] Address: [address] [place] [address] Performed By: #### 5 8410-2 #### [facility] CLIA [id number] [address] [place] Hemoglobin (Bld) [Mass/Vol] 12.4 g/dL Low 13.0-17.0 [facility] Comment on above: Order Comment: Speci men Type: BLOOD SPECIMEN Ordering Facility: [facility] Address: [address] [place] [address] Performed By: #### 5 8410-2 #### [facility] CLIA [id number] [address] OF [place] MCH (RBC) [Entitic mass] 29.5 pg Normal 26.0-34.0 [facility] Comment on above: Order Comment: Speci men Type: BLOOD SPECIMEN Ordering Facility: [facility] Address: [address] [place] [address] Performed By: #### 5 8410-2 #### [facility] CLIA [id number] [address] MCHC (RBC) [Mass/Vol] 32.4 g/dL Normal 30.5-36.0 [facility] Comment on above: Order Comment: Speci men Type: BLOOD SPECIMEN Ordering Facility: [facility] Address: [address] [place] [address] Performed By: #### 5 8410-2 #### [facility] CLIA [id number] [address] MCV (RBC) [Entitic vol] 91.0 fL Normal 80.0-100.0 [facility] Comment on above: Order Comment: Speci men Type: BLOOD SPECIMEN Ordering Facility: [facility] Address: [address] [place] [address] Performed By: #### 5 8410-2 #### [facility] CLIA [id number] [address] Nucleated RBC (Bld) [#/Vol] 10*3/uL Normal <0.01 [facility] Comment on above: Order Comment: Speci men Type: BLOOD SPECIMEN Ordering Facility: [facility] Address: [address] [place] [address] Performed By: #### 5 8410-2 #### [facility] CLIA [id number] [address] Platelet mean volume (Bld) [Entitic vol] 11.3 fL Normal 9.0-12.7 [facility] Comment on above: Order Comment: Speci men Type: BLOOD SPECIMEN Ordering Facility: [facility] Address: [address] [place] [address] Performed By: #### 5 8410-2 #### [facility] CLIA [id number] [address] [place] [address] [place] Platelets (Bld) [#/Vol] 196 10*3/uL Normal 150-400 [facility] Comment on above: Order Comment: Speci men Type: BLOOD SPECIMEN Ordering Facility: [facility] Address: [address] [place] [address] Performed By: #### 5 8410-2 #### [facility] CLIA [id number] 1 [place] [address] [place] RBC (Bld) [#/Vol] 4.21 10*6/uL Normal 4.20-6.00 [facility] Comment on above: Order Comment: Speci men Type: BLOOD SPECIMEN Ordering Facility: [facility] Address: [address] [place] [address] Performed By: #### 5 8410-2 #### [facility] CLIA [id number] 1 [place] [address] [place] WBC (Bld) [#/Vol] 9.15 10*3/uL Normal 3.70-11.00 [facility] Comment on above: Order Comment: Speci men Type: BLOOD SPECIMEN Ordering Facility: [facility] Address: [address] [place] [address] Performed By: #### 5 8410-2 #### [facility] CLIA [id number] [address] OF [place] ECHOon 09-25-2024 Echocardiography Echocardiography Report: Transthoracic Echo [facility] Date of service: 09/25/2024 1:28:02 PM HOSPITAL Ordering physician: ROSEANNA STEPHENS Indication: LV [...] * * * Final * * * [employer] : [id number] UID Normal [facility] THERAPY NTon 09-25-2024 THERAPY NT HNO ID: [id number] Author: CATRACHITA BRANHAM, OTR/L Service: Occupational Therapy Author Type: Occupational Therapist Type: Therapy (PT/OT/Speech/Resp) Filed: 09/25/2024 16:47 Note Text: Occupational Therapy Evaluation Summary SERVICE DATE: 09/25/2024 SERVICE TIME: 1500 to 1556 ROOM: [place] [address] OT 6 Clicks Score: 14 DISCHARGE RECOMMENDATIONS [...] approved him being on anticoagulant, if needs oysterman they recc may benefit from IVC filter [...] end of august, transitioned to staying at [facility] [place] for about a week prior to being [...] mobility-other TREATMENT INTERVENTIONS Evaluation, Self Snf Management (63517) Timed Code Treatment (minutes): 30 Skilled Treatment Time (minutes): 50 $ Evaluation - Moderate (58879) Billed Units: 1 unit Self Snf Management (86683) Treatment Minutes: 30 $ Self Snf Management (66961) Billed Units: 2 units TRAINING AND EDUCATION [...] Upper Extremit (more content not included)... Normal [facility] aPTT PPPon 09-25-2024 aPTT Coag (PPP) [Time] 66.2 s High 23.0-32.4 [facility] Comment on above: Order Comment: Speci men Type: BLOOD SPECIMENOrdering Facility: [facility] Address: [address] [place] [address] Performed By: #### 1 4979-9 ####[facility] [id number] [place] [address] [place] Basic metabolic 2000 panelon 09-24-2024 Anion gap [Moles/Vol] 11 mmol/L Normal 8-15 [facility] Comment on above: Order Comment: Speci men Type: BLOOD SPECIMEN Ordering Facility: [facility] Address: [address] [place] [address] Performed By: #### 1 4979-9 #### [facility] CLIA [id number] [address] [place] [address] [place] Calcium [Mass/Vol] 8.5 mg/dL Normal 8.5-10.2 [facility] Comment on above: Order Comment: Speci men Type: BLOOD SPECIMEN Ordering Facility: [facility] Address: [address] [place] [address] Performed By: #### 1 4979-9 #### [facility] CLIA [id number] 1 [place] [address] [place] Chloride [Moles/Vol] 109 mmol/L High 98-107 [facility] Comment on above: Order Comment: Speci men Type: BLOOD SPECIMEN Ordering Facility: [facility] Address: [address] [place] [address] Performed By: #### 1 4979-9 #### [facility] CLIA [id number] 1 [place] [address] [place] CO2 [Moles/Vol] 24 mmol/L Normal 22-30 [facility] Comment on above: Order Comment: Gemini olson Type: BLOOD SPECIMEN Ordering Facility: [facility] Address: [address] [place] [address] Performed By: #### 1 4979-9 #### [facility] CLIA [id number] [address] STATES OF [facility] Creatinine [Mass/Vol] 0.89 mg/dL Normal 0.73-1.22 [facility] Comment on above: Order Comment: Gemini men Type: BLOOD SPECIMEN Ordering Facility: [facility] Address: [address] [place] [address] Performed By: #### 1 4979-9 #### [facility] CLIA [id number] [address] Creatinine and Glomerular filtration rate.predicted panel (S/P/Bld) 95 mL/min/1.73m??? Normal >=60 [facility] Comment on above: Order Comment: Gemini olson Type: BLOOD SPECIMEN Ordering Facility: [facility] Address: [address] [place] [address] Result Comment: Josseline mated Glomerular Filtration Rate [...] GFR. Performed By: #### 1 4979-9 #### [facility] CLIA [id number] [address] [place] Glucose [Mass/Vol] 106 mg/dL High 74-99 [facility] Comment on above: Order Comment: Gemini wesley Type: BLOOD SPECIMEN Ordering Facility: [facility] Address: [address] [place] [address] Result Comment: The [place] Diabetes Association (ADA) provides guidance for cutoff [...] Standards of Medical Care in Diabetes 2016, [place] Diabetes Association. Diabetes Care. 2016.39(Suppl 1). Performed By: #### 1 4979-9 #### [facility] CLIA [id number] [address] Potassium [Moles/Vol] 3.9 mmol/L Normal 3.7-5.1 [facility] Comment on above: Order Comment: Gemini olson Type: BLOOD SPECIMEN Ordering Facility: [facility] Address: [address] [place] [address] Performed By: #### 1 4979-9 #### [facility] CLIA [id number] [address] [place] [address] Sodium [Moles/Vol] 144 mmol/L Normal 136-144 [facility] Comment on above: Order Comment: Gemini olson Type: BLOOD SPECIMEN Ordering Facility: [facility] Address: [address] [place] [address] Performed By: #### 1 4979-9 #### [facility] CLIA [id number] [address] Urea nitrogen [Mass/Vol] 15 mg/dL Normal 9-24 [facility] Comment on above: Order Comment: Meyi wesley Type: BLOOD SPECIMEN Ordering Facility: [facility] Address: [address] [place] [address] Performed By: #### 1 4979-9 #### [facility] CLIA [id number] [address] CBC W Auto Differential pane l (Bld)on 09-24-2024 Basophils (Bld) [#/Vol] 0.03 10*3/uL Normal <0.11 [facility] Comment on above: Order Comment: Speci men Type: BLOOD SPECIMEN Ordering Facility: [facility] Address: [address] [place] [address] Performed By: #### 1 4979-9 #### [facility] CLIA [id number] [address] Basophils/100 WBC (Bld) 0.3 % Normal [facility] Comment on above: Order Comment: Speci men Type: BLOOD SPECIMEN Ordering Facility: [facility] Address: [address] [place] [address] Performed By: #### 1 4979-9 #### [facility] CLIA [id number] [address] Differential cell count method Nom (Bld) Auto Normal [facility] Comment on above: Order Comment: Speci men Type: BLOOD SPECIMEN Ordering Facility: [facility] Address: [address] [place] [address] Performed By: #### 1 4979-9 #### [facility] CLIA [id number] [address] STATES OF [facility] Eosinophils (Bld) [#/Vol] 0.21 10*3/uL Normal <0.46 [facility] Comment on above: Order Comment: Speci men Type: BLOOD SPECIMEN Ordering Facility: [facility] Address: [address] [place] [address] Performed By: #### 1 4979-9 #### [facility] CLIA [id number] [address] Eosinophils/100 WBC (Bld) 1.9 % Normal [facility] Comment on above: Order Comment: Speci men Type: BLOOD SPECIMEN Ordering Facility: [facility] Address: [address] [place] [address] Performed By: #### 1 4979-9 #### [facility] CLIA [id number] [address] [place] Erythrocyte distribution width (RBC) [Ratio] 14.6 % Normal 11.5-15.0 [facility] Comment on above: Order Comment: Speci men Type: BLOOD SPECIMEN Ordering Facility: [facility] Address: [address] [place] [address] Performed By: #### 1 4979-9 #### [facility] CLIA [id number] [address] [place] Hematocrit (Bld) [Volume fraction] 41.2 % Normal 39.0-51.0 [facility] Comment on above: Order Comment: Speci men Type: BLOOD SPECIMEN Ordering Facility: [facility] Address: [address] [place] [address] Performed By: #### 1 4979-9 #### [facility] CLIA [id number] [address] [place] Hemoglobin (Bld) [Mass/Vol] 13.4 g/dL Normal 13.0-17.0 [facility] Comment on above: Order Comment: Speci men Type: BLOOD SPECIMEN Ordering Facility: [facility] Address: [address] [place] [address] Performed By: #### 1 4979-9 #### [facility] CLIA [id number] [address] OF [place] Immature granulocytes (Bld) [#/Vol] 0.06 10*3/uL Normal <0.10 [facility] Comment on above: Order Comment: Speci men Type: BLOOD SPECIMEN Ordering Facility: [facility] Address: [address] [place] [address] Performed By: #### 1 4979-9 #### [facility] CLIA [id number] [address] [place] Immature granulocytes/100 WBC (Bld) 0.5 % Normal [facility] Comment on above: Order Comment: Speci men Type: BLOOD SPECIMEN Ordering Facility: [facility] Address: [facility] [place] [address] Performed By: #### 1 4979-9 #### [facility] CLIA [id number] [address] OF [place] Lymphocytes (Bld) [#/Vol] 1.22 10*3/uL Normal 1.00-4.00 [facility] Comment on above: Order Comment: Speci men Type: BLOOD SPECIMEN Ordering Facility: [facility] Address: [address] [place] [address] Performed By: #### 1 4979-9 #### [facility] CLIA [id number] [address] Lymphocytes/100 WBC (Bld) 10.8 % Normal [facility] Comment on above: Order Comment: Speci men Type: BLOOD SPECIMEN Ordering Facility: [facility] Address: [address] [place] [address] Performed By: #### 1 4979-9 #### [facility] CLIA [id number] [address] STATES OF [facility] MCH (RBC) [Entitic mass] 29.7 pg Normal 26.0-34.0 [facility] Comment on above: Order Comment: Speci men Type: BLOOD SPECIMEN Ordering Facility: [facility] Address: [address] [place] [address] Performed By: #### 1 4979-9 #### [facility] CLIA [id number] [address] STATES OF [facility] MCHC (RBC) [Mass/Vol] 32.5 g/dL Normal 30.5-36.0 [facility] Comment on above: Order Comment: Speci men Type: BLOOD SPECIMEN Ordering Facility: [facility] Address: [address] [place] [address] Performed By: #### 1 4979-9 #### [facility] CLIA [id number] [address] [place] MCV (RBC) [Entitic vol] 91.4 fL Normal 80.0-100.0 [facility] Comment on above: Order Comment: Speci men Type: BLOOD SPECIMEN Ordering Facility: [facility] Address: [address] [place] [address] Performed By: #### 1 4979-9 #### [facility] CLIA [id number] [address] [place] Monocytes (Bld) [#/Vol] 0.94 10*3/uL High <0.87 [facility] Comment on above: Order Comment: Speci men Type: BLOOD SPECIMEN Ordering Facility: [facility] Address: [address] [place] [address] Performed By: #### 1 4979-9 #### [facility] CLIA [id number] [address] Monocytes/100 WBC (Bld) 8.4 % Normal A [facility] Comment on above: Order Comment: Speci men Type: BLOOD SPECIMEN Ordering Facility: [facility] Address: [address] [place] [address] Performed By: #### 1 4979-9 #### [facility] CLIA [id number] [address] [place] Neutrophils (Bld) [#/Vol] 8.79 10*3/uL High 1.45-7.50 [facility] Comment on above: Order Comment: Speci men Type: BLOOD SPECIMEN Ordering Facility: [facility] Address: [address] [place] [address] Performed By: #### 1 4979-9 #### [facility] CLIA [id number] [address] Neutrophils/100 WBC (Bld) 78.1 % Normal [facility] Comment on above: Order Comment: Speci men Type: BLOOD SPECIMEN Ordering Facility: [facility] Address: [address] [place] [address] Performed By: #### 1 4979-9 #### [facility] CLIA [id number] [address] [place] Nucleated RBC (Bld) [#/Vol] 10*3/uL Normal <0.01 [facility] Comment on above: Order Comment: Speci men Type: BLOOD SPECIMEN Ordering Facility: [facility] Address: [address] [place] [address] Performed By: #### 1 4979-9 #### [facility] CLIA [id number] [address] [place] Nucleated RBC/100 WBC (Bld) [Ratio] 0.0 /100 WBC Normal [facility] Comment on above: Order Comment: Speci men Type: BLOOD SPECIMEN Ordering Facility: [facility] Address: [address] [place] [address] Performed By: #### 1 4979-9 #### [facility] CLIA [id number] [address] [place] Platelet mean volume (Bld) [Entitic vol] 12.1 fL Normal 9.0-12.7 [facility] Comment on above: Order Comment: Speci men Type: BLOOD SPECIMEN Ordering Facility: [facility] Address: [address] [place] [address] Performed By: #### 1 4979-9 #### [facility] CLIA [id number] [address] [place] Platelets (Bld) [#/Vol] 218 10*3/uL Normal 150-400 [facility] Comment on above: Order Comment: Speci men Type: BLOOD SPECIMEN Ordering Facility: [facility] Address: [address] [place] [address] Performed By: #### 1 4979-9 #### [facility] CLIA [id number] [address] [place] RBC (Bld) [#/Vol] 4.51 10*6/uL Normal 4.20-6.00 [facility] Comment on above: Order Comment: Speci men Type: BLOOD SPECIMEN Ordering Facility: [facility] Address: [address] [place] [address] Performed By: #### 1 4979-9 #### [facility] CLIA [id number] [address] [place] WBC (Bld) [#/Vol] 11.25 10*3/uL High 3.70-11.00 [facility] Comment on above: Order Comment: Speci men Type: BLOOD SPECIMEN Ordering Facility: [facility] Address: [address] [place] [address] Performed By: #### 1 4979-9 #### [facility] CLIA [id number] [address] CBC panel Auto (Bld)on 09-24 Erythrocyte distribution width (RBC) [Ratio] 14.4 % Normal 11.5-15.0 [facility] Comment on above: Order Comment: Speci men Type: BLOOD SPECIMEN Ordering Facility: [facility] Address: [address] [place] [address] Performed By: #### 1 4979-9 #### [facility] CLIA [id number] [address] [place] [address] Hematocrit (Bld) [Volume fraction] 40.5 % Normal 39.0-51.0 [facility] Comment on above: Order Comment: Speci men Type: BLOOD SPECIMEN Ordering Facility: [facility] Address: [address] [place] [address] Performed By: #### 1 4979-9 #### [facility] CLIA [id number] [address] [place] Hemoglobin (Bld) [Mass/Vol] 13.3 g/dL Normal 13.0-17.0 [facility] Comment on above: Order Comment: Speci men Type: BLOOD SPECIMEN Ordering Facility: [facility] Address: [address] [place] [address] Performed By: #### 1 4979-9 #### [facility] CLIA [id number] [address] [place] MCH (RBC) [Entitic mass] 29.6 pg Normal 26.0-34.0 [facility] Comment on above: Order Comment: Speci men Type: BLOOD SPECIMEN Ordering Facility: [facility] Address: [address] [place] [address] Performed By: #### 1 4979-9 #### [facility] CLIA [id number] [address] MCHC (RBC) [Mass/Vol] 32.8 g/dL Normal 30.5-36.0 [facility] Comment on above: Order Comment: Speci men Type: BLOOD SPECIMEN Ordering Facility: [facility] Address: [address] [place] [address] Performed By: #### 1 4979-9 #### [facility] CLIA [id number] [address] MCV (RBC) [Entitic vol] 90.2 fL Normal 80.0-100.0 [facility] Comment on above: Order Comment: Speci men Type: BLOOD SPECIMEN Ordering Facility: [facility] Address: [address] [place] [address] Performed By: #### 1 4979-9 #### [facility] CLIA [id number] [address] Nucleated RBC (Bld) [#/Vol] 10*3/uL Normal <0.01 [facility] Comment on above: Order Comment: Speci men Type: BLOOD SPECIMEN Ordering Facility: [facility] Address: [address] [place] [address] Performed By: #### 1 4979-9 #### [facility] CLIA [id number] [address] Platelet mean volume (Bld) [Entitic vol] 11.6 fL Normal 9.0-12.7 [facility] Comment on above: Order Comment: Speci men Type: BLOOD SPECIMEN Ordering Facility: [facility] Address: [address] [place] [address] Performed By: #### 1 4979-9 #### [facility] CLIA [id number] [address] Platelets (Bld) [#/Vol] 218 10*3/uL Normal 150-400 [facility] Comment on above: Order Comment: Speci men Type: BLOOD SPECIMEN Ordering Facility: [facility] Address: [address] [place] [address] Performed By: #### 1 4979-9 #### [facility] CLIA [id number] [address] OF [facility] RBC (Bld) [#/Vol] 4.49 10*6/uL Normal 4.20-6.00 [facility] Comment on above: Order Comment: Speci men Type: BLOOD SPECIMEN Ordering Facility: [facility] Address: [address] [place] [address] Performed By: #### 1 4979-9 #### [facility] CLIA [id number] [address] OF [facility] WBC (Bld) [#/Vol] 12.43 10*3/uL High 3.70-11.00 [facility] Comment on above: Order Comment: Speci men Type: BLOOD SPECIMEN Ordering Facility: [facility] Address: [address] [place] [address] Performed By: #### 1 4979-9 #### [facility] CLIA [id number] [address] CONSULTon 09-24-2024 CONSULT HNO ID: [id number] Author: DEMETRICE RIVERS MD Service: Neurology General [...] to nose intact. 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 Patients previous MRIs show mixed picture of cortical and subcortical microhemorrhages rather than pure cortical ones. In literature mo (more content not included)... Normal [facility] ECG COMPLETEon 09-24-2024 ECG COMPLETE Ventricular Rate : 88 BPM Atrial Rate : 88 BPM P-R Interval : 190 ms QRS Duration : 114 ms Q-T Interval : 382 ms QTC Calculation(Bazett) : 462 ms Calculated P Merrill : 40 degrees Calculated R Merrill : -46 degrees Calculated T Merrill : 109 degrees NORMAL SINUS RHYTHM INCOMPLETE RIGHT BUNDLE BRANCH BLOCK LEFT ANTERIOR FASCICULAR BLOCK MODERATE VOLTAGE CRITERIA FOR LVH, MAY BE NORMAL VARIANT ( R in aVL , Dong product ) SEPTAL INFARCT , AGE UNDETERMINED T WAVE ABNORMALITY, CONSIDER LATERAL ISCHEMIA ABNORMAL ECG NO PREVIOUS ECGS AVAILABLE Confirmed by HILDA GALICIA MD ([id number]) on 10/22/2024 7:14:54 PM NAME : ALFONZO SIMON PID : [id number] : 1960 Gender : Male Race : ORD : [id number] Procedure Date : Sep 24 2024 00:26:37 [...] ECGS AVAILABLE Confirmed by HILDA GALICIA MD ([id number]) on 10/22/2024 7:14:54 PM Test Reason : Chest Pain Location : 4 : AKED EM Overread By : HILDA GALICIA MD Edited By : HILDA GALICIA MD Referred By : , Acquired by : NIA SANCHEZ [facility] ED NOTEon 09-24-2024 ED NOTE HNO ID: [id number] Author: MASTER COSTELLO, RN Service: Nursing Author Type: Registered Nurse Type: ED Notes Filed: 09/24/2024 10:30 Note Text: Heparin stopped. [facility] ED NOTE HNO ID: [id number] Author: MASTER COSTELLO RN Service: Nursing Author Type: Registered Nurse Type: ED Notes Filed: 09/24/2024 09:36 Note Text: . [facility] ED NOTE HNO ID: [id number] Author: MASTER COSTELLO RN Service: Nursing Author Type: Registered Nurse Type: ED Notes Filed: 09/24/2024 09:30 Note Text: Pt. Eating breakfast. [facility] ED NOTE HNO ID: [id number] Author: NIA SANCHEZ RN Service: Emergency Medicine Author Type: Registered Nurse Type: ED Notes Filed: 09/24/2024 03:05 Note Text: Patient has increased generalized weakness and fatigue. Dr. Castellanos notified at this time. [facility] ED NOTE HNO ID: [id number] Author: NIA SANCHEZ RN Service: Emergency Medicine Author Type: Registered Nurse Type: ED Notes Filed: 09/24/2024 03:03 Note Text: Attempted to call Ultrasound. No answer. Left voicemail that patient is ready for ultrasound at this time. [facility] ED NOTE HNO ID: [id number] Author: NIA SANCHEZ RN Service: Emergency Medicine Author Type: Registered Nurse Type: ED Notes Filed: 09/24/2024 03:02 Note Text: Patient saturated bedding in urine. Complete bedding change done at this time [facility] ED PROV NOTEon 09-24-2024 ED PROV NOTE HNO ID: [id number] Author: RAJAT HUSSEIN DO Service: Emergency Medicine [...] as of 09/24/24 0357 Zhao Castellanos's Documentation [place] Sep 24, 2024 0200 PERT team consulted, [...] this time. Others' Documentation Sat Sep 23, 2024 2223 Notified Adult Protective Services of EMS concern. [ER] [place] Sep 24, [address] Mckeon [...] benefit from inpatient admission for pulmonary embolism. [facility] service was contacted, with the [...] 3:54 AM PAGER/CONTACT #: ZHAO CASTELLANOS 09/24/24 0357 RAJAT HUSSEIN 10/01/24 0040 Normal [facility] ED PROV NOTE HNO ID: [id number] Author: RAJAT HUSSEIN DO Service: Emergency Medicine [...] as of 10/01/24 0040 Rajat Hussein's Documentation [place] Sep 24, [address] Mckeon evaluated the patient and recommended heparin since CTH in June showed resolution of his SAH/SDH Others' Documentation Sat Sep 23, 2024 2223 Notified Adult Protective Services of EMS concern. [ER] [place] Sep 24, 2024 0200 PERT team consulted, holding off on heparin in s/o sah, sdh will reevaluate. [JM] 0209 IR physician updated [JM] 0215 Per ICU resident, kamini for heparin bolus and gtt. [JM] 0230 [...] Index [ER] Patricia Bolaños MD [JM] Zhao Castellanos, Clinical Impressions as of 10/01/24 0040 Acute pulmonary embolism without acute cor pulmonale, unspecified pulmonary embolism type (HCC) Shortness of breath Hypoxia Elevated troponin Medical Decision Making SIGNATURE: Rajat Hussein DO PATIENT NAME: Alfonzo Simon DATE: September 24, 2024 TIME: 1:02 AM PAGER/CONTACT #: RAJAT HUSSEIN 10/01/24 0040 Normal [facility] HIGH SENSITIVITY TROPONIN T (THIRD) 3 HRS AFTER INITIALon 09-24-2024 Troponin T.cardiac High sensitivity method [Mass/Vol] 91 ng/L High <12 [facility] Comment on above: Order Comment: Speci men Type: BLOOD SPECIMENOrdering Facility: [facility] Address: [address] [place] [address] Performed By: #### L [id number] ####[facility] [id number] [place] [address] [place] HISTORY PHYSICALon HISTORY PHYSICAL HNO ID: [id number] Author: DEEDEE MAXWELL MD Service: Hospital Medicine Author Type: Physician Type: H&P Filed: 09/24/2024 08:49 Note Text: DEPARTMENT OF HOSPITAL MEDICINE HISTORY AND PHYSICAL EXAM SERVICE DATE: 09/24/2024 SERVICE TIME: 6:53 AM Primary Care Physician: Karthik Holliday APRN.[facility] NIGHT AND WEEKEND COVERAGE: From 7am - 7pm, please call Sound After 7pm, please call cross cover pager #[phone] Subjective CHIEF COMPLAINT: SOB, lower leg swollen [...] (Src) 99.3 (Oral) Resp 18 Ht 6' 0 (1.83m) Wt 288 lb (130.6kg) SpO2 87% [...] 1.11 G (more content not included)... Normal [facility] HISTORY PHYSICAL HNO ID: [id number] Author: ROSEANNA STEPHENS MD Service: Critical Care Author Type: Physician Type: H&P Filed: 09/24/2024 05:26 Note Text: [facility] STAFF PHYSICIAN NOTE OF [...] SDH, SAH status post craniotomy in April MMP Plan: Patient is hemodynamically stable, on 2 [...] Note: This note has been created using Acsendo, a speech recognition software program, and may contain errors including punctuation, grammar, spelling, gender, and inappropriate words or phrases that pertain to the system. Some parts of the note have been copied from previous notes. SIGNATURE: Roseanna Stephens MD [facility] DATE of SERVICE: 09/24/2024 MICU Consultation PATIENT NAME: Alfonzo Simon REASON FOR ADMISSION: Pulmonary embolism DATE: September 24, 2024 Subjective HPI Mr. Alfonzo Simon is a 64 year [...] #Essential hypertension Patient presented from home to [facility] on 09/23/2024 accompanied by their , [...] prostatic hyp (more content not included)... Normal [facility] Magnesium SerPl-mCncon 09-24 Magnesium [Mass/Vol] 2.0 mg/dL Normal 1.7-2.3 [facility] Comment on above: Order Comment: [facility] Type: BLOOD SPECIMEN Ordering Facility: [facility] Address: [address] [id number] Performed By: #### 1 4979-9 #### [facility] CLIA [id number] [address] OF [facility] PT panel Coag (PPP)on 2023 INR Coag (PPP) [Relative time] 1.0 {INR} Normal 0.9-1.3 [facility] Comment on above: Order Comment: Gemini olson Type: BLOOD SPECIMENOrdering Facility: [facility] Address: [address] [id number] Result Comment: Ivonne min K Antagonist (VKA) Therapeutic Range: INR 2 to 3 (Target INR of 2.5) Note: For patients treated with VKA drugs, such as warfarin, the [place] [employer] 2012 Guideline recommends [...] to 3.5 (target INR of 3). Laxmi GH, et al. Chest 2012, 141:7S-47S Katarina ANTUNEZ et al. [facility] 2017, 70: 252-289 Performed By: #### 3 4528-0, 64027-3 ####[facility] [id number] [place] [id number] [facility] PT Coag (PPP) [Time] 10.9 s Normal 9.7-13.0 [facility] Comment on above: Order Comment: Speci men Type: BLOOD SPECIMENOrdering Facility: [facility] Address: [address] [place] [address] Performed By: #### 3 4528-0, 75791-7 ####[facility]IA [id number] [place] [address] [place] [facility] US DVT LOWER BILon 4 US DVT LOWER FELICITAS * * *Final Report* * * DATE OF EXAM: Sep 24 2024 4:13AM [place] 1005 - US DVT LOWER FELICITAS / [...] of the left and right lower extremities. Slasher Tender: [facility] Transcribe Date/Time: Sep 24 2024 4:16A Dictated by : PAUL PETERSON MD This examination was interpreted and the report reviewed and electronically signed by: PAUL PETERSON MD on Sep 24 2024 4:18AM EST [id number] Normal [facility] Urinalysis complete panel (U )on 09-24-2024 Bilirubin Ql (U) Negative Normal Negative [facility] Comment on above: Order Comment: Meyi men Type: BLOOD SPECIMEN Ordering Facility: [facility] Address: [address] [place] [address] Performed By: #### 1 4979-9 #### [facility] CLIA [id number] 1 [place] [address] [place] Clarity (Unsp spec) Clear Normal Clear [facility] Comment on above: Order Comment: Speci men Type: BLOOD SPECIMEN Ordering Facility: [facility] Address: [address] [place] [address] Performed By: #### 1 4979-9 #### [facility] CLIA [id number] [address] [place] Color (U) Yellow Normal yellow [facility] Comment on above: Order Comment: Speci men Type: BLOOD SPECIMEN Ordering Facility: [facility] Address: [address] [place] [address] Performed By: #### 1 4979-9 #### [facility] CLIA [id number] [address] [place] Glucose Test strip (U) [Mass/Vol] Negative Normal Trace, Negative [facility] Comment on above: Order Comment: Speci men Type: BLOOD SPECIMEN Ordering Facility: [facility] Address: [address] [place] [address] Performed By: #### 1 4979-9 #### [facility] CLIA [id number] [address] [place] Hemoglobin Ql (U) Negative Normal Negative, Trace [facility] Comment on above: Order Comment: Speci men Type: BLOOD SPECIMEN Ordering Facility: [facility] Address: [address] [place] [address] Performed By: #### 1 4979-9 #### [facility] CLIA [id number] [address] [place] Ketones Ql (U) Negative Normal Negative, Trace [facility] Comment on above: Order Comment: Speci men Type: BLOOD SPECIMEN Ordering Facility: [facility] Address: [address] [place] [address] Performed By: #### 1 4979-9 #### [facility] CLIA [id number] [address] Leukocyte esterase Test strip Ql (U) Negative Normal Negative, 25 Irina/uL [facility] Comment on above: Order Comment: Speci men Type: BLOOD SPECIMEN Ordering Facility: [facility] Address: [address] [place] [address] Performed By: #### 1 4979-9 #### [facility] CLIA [id number] [address] [place] Nitrite Ql (U) Negative Normal Negative [facility] Comment on above: Order Comment: Speci men Type: BLOOD SPECIMEN Ordering Facility: [facility] Address: [address] [place] [address] Performed By: #### 1 4979-9 #### [facility] CLIA [id number] [address] [place] pH (U) 6.0 [pH] Normal 5.0-8.0 [facility] Comment on above: Order Comment: Speci men Type: BLOOD SPECIMEN Ordering Facility: [facility] Address: [address] [place] [address] Performed By: #### 1 4979-9 #### [facility] CLIA [id number] [address] [place] [address] Protein (U) [Mass/Vol] 1+ Abnormal Trace , Negative [facility] Comment on above: Order Comment: Speci men Type: BLOOD SPECIMEN Ordering Facility: [facility] Address: [address] [place] [address] Performed By: #### 1 4979-9 #### [facility] CLIA [id number] [address] RBC LM.HPF (Urine sed) [#/Area] 11-25 /HPF Abnormal 0-3 /HPF [facility] Comment on above: Order Comment: Speci men Type: BLOOD SPECIMEN Ordering Facility: [facility] Address: [address] [place] [address] Performed By: #### 1 4979-9 #### [facility] CLIA [id number] [address] Specific gravity (U) [Rel density] >1.040 High 1.005-1.030 [facility] Comment on above: Order Comment: Speci men Type: BLOOD SPECIMEN Ordering Facility: [facility] Address: [address] [place] [address] Performed By: #### 1 4979-9 #### [facility] CLIA [id number] [address] Urobilinogen Ql (U) Normal Normal Normal [facility] Comment on above: Order Comment: Speci men Type: BLOOD SPECIMEN Ordering Facility: [facility] Address: [address] [place] [address] Performed By: #### 1 4979-9 #### [facility] CLIA [id number] [address] WBC LM.HPF (Urine sed) [#/Area] 0-5 /HPF Normal 0-5 /HPF [facility] Comment on above: Order Comment: Speci men Type: BLOOD SPECIMEN Ordering Facility: [facility] Address: [address] [place] [address] Performed By: #### 1 4979-9 #### [facility] CLIA [id number] [address] [place] aPTT PPPon 09-24-2024 aPTT Coag (PPP) [Time] 61.5 s High 23.0-32.4 [facility] Comment on above: Order Comment: Speci men Type: BLOOD SPECIMEN Ordering Facility: [facility] Address: [address] [place] [address] Performed By: #### 1 4979-9 #### [facility] CLIA [id number] [address] [place] aPTT Coag (PPP) [Time] 60.9 s High 23.0-32.4 [facility] Comment on above: Order Comment: Speci men Type: BLOOD SPECIMEN Ordering Facility: [facility] Address: [address] [place] [address] Performed By: #### 1 4979-9 #### [facility] CLIA [id number] [address] [place] aPTT Coag (PPP) [Time] 135.5 s High 23.0-32.4 [facility] Comment on above: Order Comment: Speci men Type: BLOOD SPECIMEN Ordering Facility: [facility] Address: [address] [place] [address] Performed By: #### 1 4979-9 #### [facility] CLIA [id number] [address] aPTT Coag (PPP) [Time] 27.4 s Normal 23.0-32.4 [facility] Comment on above: Order Comment: Speci men Type: BLOOD SPECIMENOrdering Facility: [facility] Address: [address] [place] [address] Performed By: #### 3 4528-0, 29307-4 ####[facility] [id number] [address] ALLIED HEALTHon 09-23-2024 ALLIED HEALTH HNO ID: [id number] Author: FAYE MCGUIRE RT(R) Service: Radiology Author [...] PATIENT PRESENTS WITH AN IMPLANTABLE OR ATTACHED SALES REPRESENTATIVE PUBLIC UTILITIES: No ALLERGIES: Reviewed and unchanged CONTRAST ALLERGY: [...] PERIPHERAL IV DATA: Inpatient - refer to LDA documentation RADIOLOGY DEPARTMENT: CT; Exam(s) Completed: PE Study SIGNATURE: RT Hi(R) PATIENT NAME: Alfonzo Simon DATE: September 23, 2024 TIME: 11:23 PM Normal [facility] CBC W Auto Differential pane l (Bld)on 09-23-2024 Basophils (Bld) [#/Vol] 0.04 10*3/uL Normal <0.11 [facility] Comment on above: Order Comment: Speci men Type: BLOOD SPECIMEN Ordering Facility: [facility] Address: [address] [place] [address] Performed By: #### 1 4979-9 #### [facility] CLIA [id number] [address] STATES OF [facility] Basophils/100 WBC (Bld) 0.3 % Normal [facility] Comment on above: Order Comment: Speci men Type: BLOOD SPECIMEN Ordering Facility: [facility] Address: [address] [place] [address] Performed By: #### 1 4979-9 #### [facility] CLIA [id number] [address] Differential cell count method Nom (Bld) Auto Normal [facility] Comment on above: Order Comment: Speci men Type: BLOOD SPECIMEN Ordering Facility: [facility] Address: [address] [place] [address] Performed By: #### 1 4979-9 #### [facility] CLIA [id number] [address] [place] Eosinophils (Bld) [#/Vol] 0.20 10*3/uL Normal <0.46 [facility] Comment on above: Order Comment: Speci men Type: BLOOD SPECIMEN Ordering Facility: [facility] Address: [address] [place] [address] Performed By: #### 1 4979-9 #### [facility] CLIA [id number] [address] [place] Eosinophils/100 WBC (Bld) 1.5 % Normal [facility] Comment on above: Order Comment: Speci men Type: BLOOD SPECIMEN Ordering Facility: [facility] Address: [address] [place] [address] Performed By: #### 1 4979-9 #### [facility] CLIA [id number] [address] Erythrocyte distribution width (RBC) [Ratio] 14.6 % Normal 11.5-15.0 [facility] Comment on above: Order Comment: Speci men Type: BLOOD SPECIMEN Ordering Facility: [facility] Address: [address] [place] [address] Performed By: #### 1 4979-9 #### [facility] CLIA [id number] [address] [place] Hematocrit (Bld) [Volume fraction] 45.3 % Normal 39.0-51.0 [facility] Comment on above: Order Comment: Speci men Type: BLOOD SPECIMEN Ordering Facility: [facility] Address: [address] [place] [address] Performed By: #### 1 4979-9 #### [facility] CLIA [id number] [address] [place] Hemoglobin (Bld) [Mass/Vol] 14.7 g/dL Normal 13.0-17.0 [facility] Comment on above: Order Comment: Speci men Type: BLOOD SPECIMEN Ordering Facility: [facility] Address: [address] [place] [address] Performed By: #### 1 4979-9 #### [facility] CLIA [id number] [address] Immature granulocytes (Bld) [#/Vol] 0.03 10*3/uL Normal <0.10 [facility] Comment on above: Order Comment: Speci men Type: BLOOD SPECIMEN Ordering Facility: [facility] Address: [address] [place] [address] Performed By: #### 1 4979-9 #### [facility] CLIA [id number] [address] Immature granulocytes/100 WBC (Bld) 0.2 % Normal [facility] Comment on above: Order Comment: Speci men Type: BLOOD SPECIMEN Ordering Facility: [facility] Address: [address] [place] [address] Performed By: #### 1 4979-9 #### [facility] CLIA [id number] [address] Lymphocytes (Bld) [#/Vol] 1.55 10*3/uL Normal 1.00-4.00 [facility] Comment on above: Order Comment: Speci men Type: BLOOD SPECIMEN Ordering Facility: [facility] Address: [address] [place] [address] Performed By: #### 1 4979-9 #### [facility] CLIA [id number] [address] Lymphocytes/100 WBC (Bld) 12.0 % Normal [facility] Comment on above: Order Comment: Speci men Type: BLOOD SPECIMEN Ordering Facility: [facility] Address: [address] [place] [address] Performed By: #### 1 4979-9 #### [facility] CLIA [id number] [address] [place] MCH (RBC) [Entitic mass] 29.7 pg Normal 26.0-34.0 [facility] Comment on above: Order Comment: Speci men Type: BLOOD SPECIMEN Ordering Facility: [facility] Address: [address] [place] [address] Performed By: #### 1 4979-9 #### [facility] CLIA [id number] [address] STATES [facility] MCHC (RBC) [Mass/Vol] 32.5 g/dL Normal 30.5-36.0 [facility] Comment on above: Order Comment: Speci men Type: BLOOD SPECIMEN Ordering Facility: [facility] Address: [address] [place] [address] Performed By: #### 1 4979-9 #### [facility] CLIA [id number] [address] MCV (RBC) [Entitic vol] 91.5 fL Normal 80.0-100.0 [facility] Comment on above: Order Comment: Speci men Type: BLOOD SPECIMEN Ordering Facility: [facility] Address: [address] [place] [address] Performed By: #### 1 4979-9 #### [facility] CLIA [id number] [address] [place] Monocytes (Bld) [#/Vol] 1.04 10*3/uL High <0.87 [facility] Comment on above: Order Comment: Speci men Type: BLOOD SPECIMEN Ordering Facility: [facility] Address: [address] [place] [address] Performed By: #### 1 4979-9 #### [facility] CLIA [id number] [address] Monocytes/100 WBC (Bld) 8.0 % Normal [facility] Comment on above: Order Comment: Speci men Type: BLOOD SPECIMEN [facility] [facility] Address: [address] [place] [address] Performed By: #### 1 4979-9 #### [facility] CLIA [id number] [address] OF [place] Neutrophils (Bld) [#/Vol] 10.07 10*3/uL High 1.45-7.50 [facility] Comment on above: Order Comment: Speci men Type: BLOOD SPECIMEN Ordering Facility: [facility] Address: [address] [place] [address] Performed By: #### 1 4979-9 #### [facility] CLIA [id number] [address] Neutrophils/100 WBC (Bld) 78.0 % Normal [facility] Comment on above: Order Comment: Speci men Type: BLOOD SPECIMEN Ordering Facility: [facility] Address: [address] [place] [address] Performed By: #### 1 4979-9 #### [facility] CLIA [id number] [address] Nucleated RBC (Bld) [#/Vol] 10*3/uL Normal <0.01 [facility] Comment on above: Order Comment: Speci men Type: BLOOD SPECIMEN Ordering Facility: [facility] Address: [address] [place] [address] Performed By: #### 1 4979-9 #### [facility] CLIA [id number] [address] Nucleated RBC/100 WBC (Bld) [Ratio] 0.0 /100 WBC Normal [facility] Comment on above: Order Comment: Speci men Type: BLOOD SPECIMEN Ordering Facility: [facility] Address: [address] [place] [address] Performed By: #### 1 4979-9 #### [facility] CLIA [id number] [address] Platelet mean volume (Bld) [Entitic vol] 11.8 fL Normal 9.0-12.7 [facility] Comment on above: Order Comment: Speci men Type: BLOOD SPECIMEN Ordering Facility: [facility] Address: [address] [place] [address] Performed By: #### 1 4979-9 #### [facility] CLIA [id number] [address] [place] Platelets (Bld) [#/Vol] 239 10*3/uL Normal 150-400 [facility] Comment on above: Order Comment: Meyi men Type: BLOOD SPECIMEN Ordering Facility: [facility] Address: [address] [place] [address] Performed By: #### 1 4979-9 #### [facility] CLIA [id number] [address] OF [facility] RBC (Bld) [#/Vol] 4.95 10*6/uL Normal 4.20-6.00 [facility] Comment on above: Order Comment: Speci men Type: BLOOD SPECIMEN Ordering Facility: [facility] Address: [address] [place] [address] Performed By: #### 1 4979-9 #### [facility] CLIA [id number] [address] OF [facility] WBC (Bld) [#/Vol] 12.93 10*3/uL High 3.70-11.00 [facility] Comment on above: Order Comment: Meyi men Type: BLOOD SPECIMEN Ordering Facility: [facility] Address: [address] [place] [address] Performed By: #### 1 4979-9 #### [facility] CLIA [id number] [address] CTA CHEST (NON GATED) W IVCO N PEon 09-23-2024 CTA CHEST (NON GATED) W IVCON PE * * *Final Report* * * DATE OF EXAM: Sep 23 2024 11:22PM [facility] 0564 - CTA CHEST (NON [...] Rajat Hussein on 09/24/2024 1:10 AM via [employer] Secure Chat. --END OF FINDING-- Slasher Tender: CRYS Transcribe Date/Time: Sep 24 2024 1:03A Dictated by : JOHN MYERS MD This examination was interpreted and the report reviewed and electronically signed by: JOHN MYERS MD on Sep 24 2024 1:13AM EST [id number] CN CRITICAL!! Invalid Interpretation Code [facility] Comprehensive metabolic 2000 panelon 09-23-2024 Albumin [Mass/Vol] 3.9 g/dL Normal 3.9-4.9 [facility] Comment on above: Order Comment: Speci men Type: BLOOD SPECIMEN Ordering Facility: [facility] Address: [address] [place] [address] Performed By: #### 1 4979-9 #### [facility] CLIA [id number] [address] [place] [address] ALP [Catalytic activity/Vol] 157 U/L High 38-113 [facility] Comment on above: Order Comment: Speci men Type: BLOOD SPECIMEN Ordering Facility: [facility] Address: [address] [place] [address] Performed By: #### 1 4979-9 #### [facility] CLIA [id number] [address] [place] [address] ALT With P-5'-P [Catalytic activity/Vol] 24 U/L Normal 10-54 [facility] Comment on above: Order Comment: Speci men Type: BLOOD SPECIMEN Ordering Facility: [facility] Address: [address] [place] [address] Performed By: #### 1 4979-9 #### [facility] CLIA [id number] [address] [place] [address] Anion gap [Moles/Vol] 15 mmol/L Normal 8-15 [facility] Comment on above: Order Comment: Speci men Type: BLOOD SPECIMEN Ordering Facility: [facility] Address: [address] [place] [address] Performed By: #### 1 4979-9 #### [facility] CLIA [id number] [address] AST With P-5'-P [Catalytic activity/Vol] 20 U/L Normal 14-40 [facility] Comment on above: Order Comment: Speci men Type: BLOOD SPECIMEN Ordering Facility: [facility] Address: [facility] [place] [address] Performed By: #### 1 4979-9 #### [facility] CLIA [id number] [address] STATES OF [place] Bilirubin [Mass/Vol] 0.5 mg/dL Normal 0.2-1.3 [facility] Comment on above: Order Comment: Speci men Type: BLOOD SPECIMEN Ordering Facility: [facility] Address: [address] [place] [address] Performed By: #### 1 4979-9 #### [facility] CLIA [id number] [address] STATES OF [facility] Calcium [Mass/Vol] 9.3 mg/dL Normal 8.5-10.2 [facility] Comment on above: Order Comment: Speci men Type: BLOOD SPECIMEN Ordering Facility: [facility] Address: [address] [place] [address] Performed By: #### 1 4979-9 #### [facility] CLIA [id number] 1 [place] [address] [place] Chloride [Moles/Vol] 106 mmol/L Normal 98-107 [facility] Comment on above: Order Comment: Speci men Type: BLOOD SPECIMEN Ordering Facility: [facility] Address: [address] [place] [address] Performed By: #### 1 4979-9 #### [facility] CLIA [id number] 1 [place] [address] [place] CO2 [Moles/Vol] 22 mmol/L Normal 22-30 [facility] Comment on above: Order Comment: Speci men Type: BLOOD SPECIMEN Ordering Facility: [facility] Address: [address] [place] [address] Performed By: #### 1 4979-9 #### [facility] CLIA [id number] [address] [facility] Creatinine [Mass/Vol] 1.11 mg/dL Normal 0.73-1.22 [facility] Comment on above: Order Comment: Gemini olson Type: BLOOD SPECIMEN Ordering Facility: [facility] Address: [address] [place] [address] Performed By: #### 1 4979-9 #### [facility] CLIA [id number] [address] [place] [address] Creatinine and Glomerular filtration rate.predicted panel (S/P/Bld) 74 mL/min/1.73m??? Normal >=60 [facility] Comment on above: Order Comment: Gemini olson Type: BLOOD SPECIMEN Ordering Facility: [facility] Address: [address] [place] [address] Result Comment: Josseline mated Glomerular Filtration Rate [...] GFR. Performed By: #### 1 4979-9 #### [facility] CLIA [id number] [address] [place] [address] STATES OF [facility] Glucose [Mass/Vol] 125 mg/dL High 74-99 [facility] Comment on above: Order Comment: Gemini olson Type: BLOOD SPECIMEN Ordering Facility: [facility] Address: [address] [place] [address] Result Comment: The [place] Diabetes Association (ADA) provides guidance for cutoff [...] Standards of Medical Care in Diabetes 2016, [place] Diabetes Association. Diabetes Care. 2016.39(Suppl 1). Performed By: #### 1 4979-9 #### [facility] CLIA [id number] [address] STATES [facility] Potassium [Moles/Vol] 3.9 mmol/L Normal 3.7-5.1 [facility] Comment on above: Order Comment: Speci men Type: BLOOD SPECIMEN Ordering Facility: [facility] Address: [address] [place] [address] Performed By: #### 1 4979-9 #### [facility] CLIA [id number] [address] [place] Protein [Mass/Vol] 6.7 g/dL Normal 6.3-8.0 [facility] Comment on above: Order Comment: Speci men Type: BLOOD SPECIMEN Ordering Facility: [facility] Address: [address] [place] [address] Performed By: #### 1 4979-9 #### [facility] CLIA [id number] [address] [place] Sodium [Moles/Vol] 143 mmol/L Normal 136-144 [facility] Comment on above: Order Comment: Speci men Type: BLOOD SPECIMEN Ordering Facility: [facility] Address: [address] [place] [address] Performed By: #### 1 4979-9 #### [facility] CLIA [id number] [address] STATES [facility] Urea nitrogen [Mass/Vol] 18 mg/dL Normal 9-24 [facility] Comment on above: Order Comment: Speci men Type: BLOOD SPECIMEN Ordering Facility: [facility] Address: [address] [place] [address] Performed By: #### 1 4979-9 #### [facility] CLIA [id number] [address] [place] ED NOTEon 09-23-2024 ED NOTE HNO ID: [id number] Author: NIA SANCHEZ RN Service: Emergency Medicine Author Type: Registered Nurse Type: ED Notes Filed: 09/23/2024 23:17 Note Text: Patient to ED CT at this time. [facility] ED NOTE HNO ID: [id number] Author: DAVE MARROQUIN RN Service: Emergency Medicine Author Type: Registered Nurse Type: ED Notes Filed: 09/23/2024 22:56 Note Text: CT notified patient ready for transport. [facility] ED NOTE HNO ID: [id number] Author: DAVE MARROQUIN, ARNOLD Service: Emergency Medicine Author Type: Registered Nurse Type: ED Notes Filed: 09/23/2024 21:53 Note Text: Lacate 4.[address] lab. Dr. German Bolaños notified. [facility] ED NOTE HNO ID: [id number] Author: DAVE MARROQUIN RN Service: Emergency Medicine Author Type: Registered Nurse Type: ED Notes Filed: 09/23/2024 21:32 Note Text: Patient arrives incontinent of stool. Patient cleansed and linens changed. Patient repositioned up in bed with assist x 4. Pulse ox 92% on room air. Placed on oxygen 2L/NC [facility] ED NOTE HNO ID: [id number] Author: DAVE MARROQUIN RN Service: Emergency Medicine Author Type: Registered Nurse Type: ED Notes Filed: 09/23/2024 21:26 Note Text: Patient placed on assembling inspector. Monitor shows sinus rhythm with frequent PAC's [facility] ED NOTE HNO ID: [id number] Author: GABRIELLA HOLLOWAY, Medic Service: ? 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 Dye Maker strengths equal bilateral upper extremities. Patient is unable to lift bilateral lower extremities off the bed, but does have dorsiflexion and plantarflexion 4/5 equal bilaterally. ED course: I personally performed a history and physical examination the patient and discussed management with the resident physician/PA/DICTAPHONE MECHANIC. I reviewed the resident/PA/DICTAPHONE MECHANIC's note and agree with documented findings and plan of care, unless otherwise listed above. I supervised procedures performed by resident physician/PA/DICTAPHONE MECHANIC. EKG was sinus tachycardia and PACs. The [...] pending CT chest PE protocol, repeat troponins, UA HUBER GONZALEZ 09/24/24 0127 Normal [facility] ED PROV NOTE HNO ID: [id number] Author: HUBER GONZALEZ MD Service: Emergency Medicine Author Type: Resident Type: ED Provider Notes Filed: 09/24/2024 01:28 Note Text: Attestation signed by Huber Gonzlaez MD at 09/24/2024 1:28 AM Attending Note [...] dry. Neuro (more content not included)... Normal [facility] EKGon 09-23-2024 Electrocardiogram Ventricular Rate : 102 BPM Atrial Rate : 102 BPM P-R Interval : 192 ms QRS Duration : 116 ms Q-T Interval : 394 ms QTC Calculation(Bazett) : 513 ms Calculated P Merrill : 38 degrees Calculated R Merrill : -53 degrees Calculated T Merrill : 78 degrees SINUS TACHYCARDIA WITH PREMATURE ATRIAL COMPLEXES LEFT ANTERIOR FASCICULAR BLOCK LEFT VENTRICULAR HYPERTROPHY WITH QRS WIDENING AND REPOLARIZATION ABNORMALITY ( R in aVL , Startex product ) ABNORMAL ECG When compared with selected ECG of 04-Jun-2024 18:45, QT HAS LENGTHENED Confirmed by MD GONZALEZ PATRICIA ([id number]) on 09/24/2024 1:23:20 AM NAME : ALFONZO SIMON PID : [id number] : 1960 Gender : Male Race : [...] HAS LENGTHENED Confirmed by MD GONZALEZ PATRICIA ([id number]) on 09/24/2024 1:23:20 AM Test Reason : Location : 4 : [facility] Overread By : MD GONZALEZ PATRICIA Edited By : MD GONZALEZ PATRICIA Referred By : , Acquired by : KATHY WHALEY [facility] HIGH SENSITIVITY TROPONIN T (INITIAL)on 09-23-2024 Troponin T.cardiac High sensitivity method [Mass/Vol] 37 ng/L High <12 [facility] Comment on above: Order Comment: Gemini olson Type: BLOOD SPECIMENOrdering Facility: [facility] Address: [address] [place] [address] Performed By: #### L [id number] ####[facility] [id number] [place] [address] [place] HIGH SENSITIVITY TROPONIN T (SECOND)on 09-23-2024 Troponin T.cardiac High sensitivity method [Mass/Vol] 63 ng/L High <12 [facility] Comment on above: Order Comment: Gemini olson Type: BLOOD SPECIMEN Ordering Facility: [facility] Address: [address] [place] [address] Performed By: #### 1 4979-9 #### [facility] CLIA [id number] [address] [place] Magnesium SerPl-mCncon 09-23 Magnesium [Mass/Vol] 2.0 mg/dL Normal 1.7-2.3 [facility] Comment on above: Order Comment: Gemini olson Type: BLOOD SPECIMEN Ordering Facility: [facility] Address: [address] [place] [address] Performed By: #### 1 4979-9 #### [facility] CLIA [id number] [address] NT-proBNP SerPl[facility] Natriuretic peptide.B prohormone N-Terminal [Mass/Vol] 1530 pg/mL High <125 [facility] Comment on above: Order Comment: Gemini olson Type: BLOOD SPECIMEN Ordering Facility: [facility] Address: [address] [place] [address] Performed By: #### 1 4979-9 #### [facility] CLIA [id number] [address] [place] [address] OF [facility] PT panel Coag (PPP)on 2023 INR Coag (PPP) [Relative time] 1.0 {INR} Normal 0.9-1.3 [facility] Comment on above: Order Comment: Gemini olson Type: BLOOD SPECIMENOrdering Facility: [facility] Address: [address] [place] [address] Result Comment: Ivonne min K Antagonist (VKA) Therapeutic Range: INR 2 to 3 (Target INR of 2.5) Note: For patients treated with VKA drugs, such as warfarin, the [place] College [employer] Chest Physicians 2012 Guideline recommends [...] Chest 2012, 141:7S-47S Katarina RA, et al. JACC 2017, 70: 252-289 Performed By: #### 3 4528-0, 70358-1 ####[facility] [id number] [place] [address] [place] PT Coag (PPP) [Time] 10.7 s Normal 9.7-13.0 [facility] Comment on above: Order Comment: Speci men Type: BLOOD SPECIMENOrdering Facility: [facility] Address: [address] [place] [address] Performed By: #### 3 4528-0, 76594-0 ####[facility] [id number] [address] aPTT PPPon 09-23-2024 aPTT Coag (PPP) [Time] 27.4 s Normal 23.0-32.4 [facility] Comment on above: Order Comment: Speci men Type: BLOOD SPECIMENOrdering Facility: [facility] Address: [address] [place] [address] Performed By: #### 3 4528-0, 52502-9 ####[facility] [id number] [address] [facility] ALFONZO SIMON ([id number]) 1960 M Date Time Provider Department 09/20/24 KARTHIK HOLLIDAY During your visit today, we recorded the following information about you: Viktoria Beyer LPN 09/20/2024 3:05 PM Signed Paula BARRETT from [facility] called [...] Encounter Status:Closed by VIKTORIA BEYER on 09/20/24 [facility] CNOVon 09-18-2024 CNOV Office Visit (AGSAM) AURORAALFONZO P ([id number]) 1960 Date Time Provider Department 09/18/24 1:20 PM [...] 2 business days post-discharge Summary Discharged from: [facility] Admit Date: 04/15/2024, 06/04/2024 Admitted for: Subdural hematoma and failure to thrive. Karthik Holliday APRN.CNP Provider Documentation Alfonzoden Simon is a 64 year old male [...] 13. Obe (more content not included)... Normal [facility] CBC W Auto Differential pane l (Bld)on 02-01-2024 Basophils (Bld) [#/Vol] 0.05 10*3/uL <0.11 k/uL [facility] Basophils/100 WBC (Bld) 0.7 % C [facility] Differential cell count method Nom (Bld) Auto [facility] Eosinophils (Bld) [#/Vol] 0.08 10*3/uL <0.46 k/uL [facility] Eosinophils/100 WBC (Bld) 1.1 % [facility] Erythrocyte distribution width (RBC) [Ratio] 15.0 % 11.5 - 15.0 % [facility] Hematocrit (Bld) [Volume fraction] 47.4 % 39.0 - 51.0 % [facility] Hemoglobin (Bld) [Mass/Vol] 15.3 g/dL 13.0 - 17.0 g/dL [facility] Immature granulocytes (Bld) [#/Vol] <0.10 k/uL [facility] Immature granulocytes/100 WBC (Bld) 0.3 % [facility] Lymphocytes (Bld) [#/Vol] 1.18 10*3/uL 1.00 - 4.00 k/uL [facility] Lymphocytes/100 WBC (Bld) 16.3 % [facility] MCH (RBC) [Entitic mass] 27.8 pg 26.0 - 34.0 pg [facility] MCHC (RBC) [Mass/Vol] 32.3 g/dL 30.5 - 36.0 g/dL [facility] MCV (RBC) [Entitic vol] 86.0 fL 80.0 - 100.0 fL [facility] Monocytes (Bld) [#/Vol] 0.53 10*3/uL <0.87 k/uL [facility] Monocytes/100 WBC (Bld) 7.3 % C [facility] Neutrophils (Bld) [#/Vol] 5.38 10*3/uL 1.45 - 7.50 k/uL [facility] Neutrophils/100 WBC (Bld) 74.3 % [facility] Nucleated RBC (Bld) [#/Vol] <0.01 k/uL [facility] Nucleated RBC/100 WBC (Bld) [Ratio] 0.0 /100 WBC [facility] Platelet mean volume (Bld) [Entitic vol] 12.7 fL 9.0 - 12.7 fL [facility] Platelets (Bld) [#/Vol] 286 10*3/uL 150 - 400 k /uL [facility] RBC (Bld) [#/Vol] 5.51 10*6/uL 4.20 - 6.0 0 m/uL [facility] WBC (Bld) [#/Vol] 7.24 10*3/uL 3.70 - 11. 00 k/uL [facility] Comprehensive metabolic 2000 panelon 02-01-2024 Albumin [Mass/Vol] 4.0 g/dL 3.9 - 4.9 g/dL [facility] ALP [Catalytic activity/Vol] 136 U/L High 38 - 113 U/L [facility] ALT With P-5'-P [Catalytic activity/Vol] 17 U/L 10 - 54 U/L [facility] Anion gap [Moles/Vol] 11 mmol/L 9 - 18 mmol/L [facility] AST With P-5'-P [Catalytic activity/Vol] 20 U/L 14 - 40 U/L [facility] Bilirubin [Mass/Vol] 0.6 mg/dL 0.2 - 1 .3 mg/dL [facility] Calcium [Mass/Vol] 9.2 mg/dL 8.5 - 10. 2 mg/dL [facility] Chloride [Moles/Vol] 104 mmol/L 97 - 10 5 mmol/L [facility] CO2 [Moles/Vol] 26 mmol/L 22 - 30 mmol/L [facility] Creatinine [Mass/Vol] 1.21 mg/dL 0.73 - 1.22 mg/dL [facility] Estimated Glomerular Filtration Rate 66 mL/min/1.73m >=60 mL/min/1.73m [facility] Glucose [Mass/Vol] 88 mg/dL 74 - 99 mg/dL [facility] Potassium [Moles/Vol] 4.1 mmol/L 3.7 - 5.1 mmol/L [facility] Protein [Mass/Vol] 7.2 g/dL 6.3 - 8.0 g/dL [facility] Sodium [Moles/Vol] 141 mmol/L 136 - 144 mmol/L [facility] Urea nitrogen [Mass/Vol] 15 mg/dL 9 - 24 mg/dL [facility] HIV 1+2 Ab IA Qlon 4 HIV 1 and 2 Ab IA.rapid Nom (S/P/Bld) [facility] HIV 1+2 Ab+HIV1 p24 Ag IA Ql Non-Reactive Nonreactive [facility] HIV immunoassay testing algorithm interpretation (S/P/Bld) [Interp] [facility] Lipid 1996 panelon 4 Cholesterol [Mass/Vol] 191 mg/dL <200 mg/dL [facility] Cholesterol in HDL [Mass/Vol] 43 mg/dL >39 mg/dL [facility] Cholesterol in LDL [Mass/Vol] 109 mg/dL High <100 mg/dL [facility] Cholesterol in LDL/Cholesterol in HDL [Mass ratio] 2.53 {ratio} <2.54 [facility] Cholesterol in VLDL [Mass/Vol] 39 mg/dL High <30 mg/dL [facility] Cholesterol non HDL [Mass/Vol] 148 mg/dL High <130 mg/dL [facility] Cholesterol.total/Kelly sterol in HDL [Mass ratio] 4.44 {ratio} <5.10 [facility] Fasting Time 12 hrs [facility] Triglyceride [Mass/Vol] 194 mg/dL High <150 mg/dL C [facility] PSA/PROSTSPECAG SCRNon 01-31 Prostate specific Ag [Mass/Vol] 5.20 ng/mL High <2.60 ng/mL [facility] TSH BLDon 02-01-2024 TSH Qn 1.000 m[IU]/L 0.270 - 4.200 mIU/L [facility] Basophil percentageon 2021 Bilirubin [Mass/Vol] 0.70 mg/dL 0.20-1.00 [facility] Work Phone: Comment on above: For patients on eltr ombopag therapy, use of Dimension [place] TBIL is not recommended. Chloride [Moles/Vol] 101 mmol/L 98-107 [facility] Work Phone: Glucose [Mass/Vol] 85 mg/dL 74-106 [facility] Work Phone: Potassium [Moles/Vol] 4.0 mmol/L 3.5-5.1 [facility] Work Phone: Protein [Mass/Vol] 7.1 g/dL 6.4-8.2 [facility] Work Phone: Sodium [Moles/Vol] 137 mmol/L 136-145 [facility] Work Phone: WBC (Bld) [#/Vol] 7.3 10*3/uL 4.4-11.0 [facility] Work Phone: Blood erythrocytes count (nu mber/volume)on 09-14-2022 RBC (Bld) [#/Vol] 5.31 10*6/uL 4.6-6.2 [facility] Work Phone: Blood hemoglobin measurement (mass/volume)on 09-14-2022 Hemoglobin (Bld) [Mass/Vol] 15.5 g/dL 13.0-16.5 [facility] Work Phone: Blood platelet mean volumeon 09-14-2022 Platelet mean volume (Bld) [Entitic vol] 11.3 fL 6.2-12.0 [facility] Work Phone: Determination of erythrocyte mean corpuscular volume (MCV)on 09-14-2022 MCV (RBC) [Entitic vol] 88.5 fL 80-[address] [facility] Work Phone: [phone] Hematocrit Auto (Bld) [Volum e fraction]on 09-14-2022 Hematocrit (Bld) [Volume fraction] 47.0 % 40-54 [facility] Work Phone: Laboratory - Chemistry and C hemistry - challengeon 09-14-2022 ALP [Catalytic activity/Vol] 124 U/L 45-117 [facility] Work Phone: ALT [Catalytic activity/Vol] 24 U/L 16-61 [facility] Work Phone: CO2 [Moles/Vol] 29.0 mmol/L 21.0-32.0 [facility] Work Phone: Globulin (S) [Mass/Vol] 3.7 g/dL 2.2-4.[address] [facility] Work Phone: Urea nitrogen/Creatinine [Mass ratio] 18.5 mg/mg 10-20 [facility] Work Phone: Laboratory - Hematology and Cell countson 09-14-2022 Erythrocyte distribution width (RBC) [Entitic vol] 45.0 fL 35.1-43.9 [facility] Work Phone: Erythrocyte distribution width (RBC) [Ratio] 14.0 % 11.6-14.6 [facility] Work Phone: MCH (RBC) [Entitic mass] 29.2 pg 27.0-32.0 [facility] Work Phone: MCHC Auto (RBC) [Mass/Vol]on 09-14-2022 MCHC (RBC) [Mass/Vol] 33.0 g/dL 32-36 [facility] Work Phone: No Panel Informationon 09-14 Estimated GFR (MDRD) Amer 100 mL/min >60 [facility] Work Phone: Comment on above: GFR Calc Estimated GFR (MDRD) Non-Af Amer 83 mL/min >60 [facility] Work Phone: Comment on above: Non- GFR Calc Platelets bldon 09-14-2022 Platelets (Bld) [#/Vol] 318 10*3/uL 150-450 [facility] Work Phone: Serum or plasma albumin gael urement (mass/volume)on 09-14-2022 Albumin [Mass/Vol] 3.4 g/dL 3.2-5.0 [facility] Work Phone: Serum or plasma albumin/glob ulin mass ratioon 09-14-2022 Albumin/Globulin [Mass ratio] 0.9 {ratio} 0.9-2.4 [facility] Work Phone: Serum or plasma calcium gael urement (mass/volume)on 09-14-2022 Calcium [Mass/Vol] 8.9 mg/dL 8.5-10.1 [facility] Work Phone: Serum or plasma creatinine m easurement (mass/volume)on 09-14-2022 Creatinine [Mass/Vol] 0.97 mg/dL 0.70-1.30 [facility] Work Phone: Comment on above: The validity of the calculated GFR & GFRAA in patients over 70 years has not been determined. Clinical correlation is essential. Serum or plasma urea nitroge n measurement (mass/volume)on 09-14-2022 Urea nitrogen [Mass/Vol] 18 mg/dL 7-18 [facility] Work Phone: Thin prep Papanicolaou smear with manual screeningon 09-14-2022 Thin prep Papanicolaou smear with manual screening 20 U/L 15-37 [facility] Work Phone: Thin prep Papanicolaou smear with manual screening 7 5-15 [facility] Work Phone: Laboratory - Microbiology an d Antimicrobial susceptibilityon 09-11-2022 SARS-CoV-2 (COVID-19) RNA ANALIA+probe Ql (Unsp spec) Detected Not Detect [facility] Work Phone: Comment on above: Normal Reference [...] ANALIA+probe Ql (Unsp spec) Detected Not Detect [facility] Work Phone: Comment on above: Normal Reference [...] recent exposure. CT BRAIN WO IVCONon 09-12-[address] BRAIN WO IVCON Final Report DATE OF EXAM: Sep 12 2020 8:39PM [facility] 0504 - CT BRAIN WO IVCON / PROCEDURE REASON: Head trauma, headache Physician Interpretation CT OF HEAD AND CERVICAL SPINE CLINICAL HISTORY: C-spine trauma, NEXUS/CCR positive (accession [id number]), Head trauma, headache (accession [id number]) TECHNIQUE: Routine non-IV contrast axial scanning through [...] spine CT: No acute fracture or malalignment. Slasher Tender: PSCB Transcribe Date/Time: Sep 12 2020 8:43P Dictated by : MARJ RICHARDSON MD This examination was interpreted and the report reviewed and electronically signed by: MARJ RICHARDSON MD on Sep 12 2020 8:50PM EST Normal [facility] CT CERVICAL SPINE WO IVCONon 09-12-2020 CT CERVICAL SPINE WO IVCON Final Report DATE OF EXAM: Sep 12 2020 8:39PM [facility] 0505 - CT CERVICAL SPINE WO IVCON / PROCEDURE REASON: C-spine trauma, NEXUS/CCR positive Physician Interpretation CT OF HEAD AND CERVICAL SPINE CLINICAL HISTORY: C-spine trauma, NEXUS/CCR positive (accession [id number]), Head trauma, headache (accession [id number]) TECHNIQUE: Routine non-IV contrast axial scanning through [...] spine CT: No acute fracture or malalignment. Slasher Tender: ALISEB Transcribe Date/Time: Sep 12 2020 8:43P Dictated by : MARJ RICHARDSON MD This examination was interpreted and the report reviewed and electronically signed by: MARJ RICHARDSON MD on Sep 12 2020 8:50PM EST Normal [facility] BLADDER SCAN [facility] Vital Signs Date Time Vital Sign Value Performing Clinician Facility 06-21-2025 12:56-0400 Body height 182.9 cm Anya Huang APRN.CNP Work Phone: [facility] 06-21-2025 12:56-0400 Body mass index (BMI) [Ratio] 44.08 kg/m2 Anya Huang APRN.CNP Work Phone: [facility] 06-21-2025 12:56-0400 Body weight 147.42 kg Anya Cheryleangy ELECTRONIC TESTER.[employer] Work Phone: [facility] Comment on above: per last visit, pt in wheelchair 06-21-2025 12:56-0400 Diastolic blood pressure 74 mm[Hg] Anya Huang ELECTRONIC TESTER.[employer] Work Phone: [facility] 06-21-2025 12:56-0400 Heart rate 57 /min Anya Huang ELECTRONIC TESTER.[employer] Work Phone: [facility] 06-21-2025 12:56-0400 Systolic blood pressure 160 mm[Hg] Anya Huang ELECTRONIC TESTER.[employer] Work Phone: [facility] 06-11-2025 08:55-0400 Body height 182.9 cm Faith Moore ELECTRONIC TESTER.[employer] Work Phone: [facility] 06-11-2025 08:55-0400 Body mass index (BMI) [Ratio] 44.08 kg/m2 Faith Moore ELECTRONIC TESTER.[employer] Work Phone: [facility] 06-11-2025 08:55-0400 Body temperature 98.1 [degF] Faith Moore ELECTRONIC TESTER.[employer] Work Phone: [facility] 06-11-2025 08:55-0400 Body weight 147.42 kg Faith Moore ELECTRONIC TESTER.[employer] Work Phone: [facility] 06-11-2025 08:55-0400 Diastolic blood pressure 81 mm[Hg] Faith Moore ELECTRONIC TESTER.[employer] Work Phone: [facility] 06-11-2025 08:55-0400 Heart rate 57 /min Faith Moore APRN.[employer] Work Phone: [facility] 06-11-2025 08:55-0400 SaO2% (BldA) [Mass fraction] 88 % Faith Moore ELECTRONIC TESTER.[employer] Work Phone: [facility] 06-11-2025 08:55-0400 Systolic blood pressure 136 mm[Hg] Faith Moore ELECTRONIC TESTER.[employer] Work Phone: [facility] 02-22-2025 13:16-0400 Body height 182.9 cm Anyarefugio Phelpsnder ELECTRONIC TESTER.[employer] Work Phone: [facility] 02-22-2025 13:16-0400 Body mass index (BMI) [Ratio] 39.06 kg/m2 Anya Hollaender ELECTRONIC TESTER.[employer] Work Phone: [facility] 02-22-2025 13:16-0400 Body weight 130.64 kg Anya Hollaender ELECTRONIC TESTER.[employer] Work Phone: [facility] Comment on above: per last visit, pt in wheelchair 02-22-2025 13:16-0400 Diastolic blood pressure 70 mm[Hg] Anya Hollaender ELECTRONIC TESTER.[employer] Work Phone: [facility] 02-22-2025 13:16-0400 Heart rate 63 /min Anya Hollaender ELECTRONIC TESTER.[employer] Work Phone: [facility] 02-22-2025 13:16-0400 Systolic blood pressure 150 mm[Hg] Anya Hollaender ELECTRONIC TESTER.[employer] Work Phone: [facility] 01-19-2025 10:05-0400 Body height 182.9 cm Leonard Patel MD Work Phone: [facility] 01-19-2025 10:05-0400 Body mass index (BMI) [Ratio] 39.06 kg/m2 Leonard Patel MD Work Phone: [facility] 01-19-2025 10:05-0400 Body weight 130.64 kg Leonard Patel MD Work Phone: [facility] 01-19-2025 10:05-0400 Diastolic blood pressure 82 mm[Hg] Leonard Patel MD Work Phone: [facility] 03-14-2025 10:05-0400 Heart rate 62 /min Leonard Patel MD Work Phone: [facility] 01-19-2025 10:05-0400 SaO2% (BldA) [Mass fraction] 97 % Leonard Patel MD Work Phone: [facility] 01-19-2025 10:05-0400 Systolic blood pressure 144 mm[Hg] Leonard Patel MD Work Phone: [facility] 12-12-2024 10:07-0500 Body height 182.9 cm Faith Oscar ELECTRONIC TESTER.[employer] Work Phone: [facility] 12-12-2024 10:07-0500 Body temperature 97.7 [degF] Faith Oscar ELECTRONIC TESTER.[employer] Work Phone: [facility] 12-12-2024 10:07-0500 Diastolic blood pressure 70 mm[Hg] Faith Oscar ELECTRONIC TESTER.[employer] Work Phone: [facility] Comment on above: right wrist 12-12-2024 10:07-0500 Heart rate 68 /min Faith Oscar ELECTRONIC TESTER.[employer] Work Phone: [facility] 12-12-2024 10:07-0500 SaO2% (BldA) [Mass fraction] 95 % Faith Oscar ELECTRONIC TESTER.[employer] Work Phone: [facility] 12-12-2024 10:07-0500 Systolic blood pressure 104 mm[Hg] Faith Oscar ELECTRONIC TESTER.[employer] Work Phone: [facility] Comment on above: right wrist 10-27-2024 14:51-0500 Body height 182.9 cm Leonard Patel MD Work Phone: [facility] 10-27-2024 14:51-0500 Body mass index (BMI) [Ratio] 39.06 kg/m2 Leonard Patel MD Work Phone: [facility] 10-27-2024 14:51-0500 Body weight 130.64 kg Leonard Patel MD Work Phone: [facility] 10-27-2024 14:51-0500 Diastolic blood pressure 79 mm[Hg] Leonard Patel MD Work Phone: [facility] 10-27-2024 14:51-0500 Heart rate 65 /min Leonard Patel MD Work Phone: [facility] 10-27-2024 14:51-0500 SaO2% (BldA) [Mass fraction] 98 % Leonard Patel MD Work Phone: [facility] 10-27-2024 14:51-0500 Systolic blood pressure 132 mm[Hg] Leonard Patel MD Work Phone: [facility] 10-26-2024 10:35-0500 Body height 182.9 cm Anya Hollaender ELECTRONIC TESTER.[employer] Work Phone: [facility] 10-26-2024 10:35-0500 Body mass index (BMI) [Ratio] 39.06 kg/m2 Anya Hollaender ELECTRONIC TESTER.[employer] Work Phone: [facility] 10-26-2024 10:35-0500 Body weight 130.64 kg Anya Hollaender ELECTRONIC TESTER.[employer] Work Phone: [facility] Comment on above: per last visit, pt in wheelchair 10-26-2024 10:35-0500 Diastolic blood pressure 72 mm[Hg] Anya Hollaender ELECTRONIC TESTER.[employer] Work Phone: [facility] 10-26-2024 10:35-0500 Heart rate 59 /min Anya Hollaender ELECTRONIC TESTER.[employer] Work Phone: [facility] 10-26-2024 10:35-0500 Systolic blood pressure 135 mm[Hg] Anya Hollaender ELECTRONIC TESTER.[employer] Work Phone: [facility] 10-13-2024 11:31-0500 Diastolic blood pressure 76 mm[Hg] Leonard Patel MD Work Phone: [facility] 10-13-2024 11:31-0500 Heart rate 71 /min Leonard Patel MD Work Phone: [facility] 10-13-2024 11:31-0500 Respiratory rate 16 /min Leonard Patel MD Work Phone: [facility] 10-13-2024 11:31-0500 SaO2% (BldA) [Mass fraction] 99 % Leonard Patel MD Work Phone: [facility] 10-13-2024 11:31-0500 Systolic blood pressure 146 mm[Hg] Leonard Patel MD Work Phone: [facility] 09-18-2024 13:12-0500 Body height 182.9 cm Karthik Mastrucci ELECTRONIC TESTER.[employer] Work Phone: [facility] 09-18-2024 13:12-0500 Body mass index (BMI) [Ratio] 39.06 kg/m2 Karthik Mastrucci ELECTRONIC TESTER.[employer] Work Phone: [facility] 09-18-2024 13:12-0500 Body weight 130.64 kg Karthik Mastrucci ELECTRONIC TESTER.[employer] Work Phone: [facility] 09-18-2024 13:12-0500 Diastolic blood pressure 103 mm[Hg] Karthik Mastrucci ELECTRONIC TESTER.[employer] Work Phone: [facility] 09-18-2024 13:12-0500 Heart rate 63 /min Karthik Mastrucci ELECTRONIC TESTER.[employer] Work Phone: [facility] 09-18-2024 13:12-0500 Respiratory rate 18 /min Karthik Mastrucci ELECTRONIC TESTER.[employer] Work Phone: [facility] 09-18-2024 13:12-0500 SaO2% (BldA) [Mass fraction] 95 % Karthik Mastrucci ELECTRONIC TESTER.[employer] Work Phone: [facility] 09-18-2024 13:12-0500 Systolic blood pressure 149 mm[Hg] Karthik Holliday ELECTRONIC TESTER.[employer] Work Phone: [facility] 06-20-2024 10:29-0400 Body height 182.9 cm Leonard Patel MD Work Phone: [facility] 06-20-2024 10:29-0400 Diastolic blood pressure 84 mm[Hg] Leonard Patel MD Work Phone: [facility] 06-20-2024 10:29-0400 Heart rate 63 /min Leonard Patel MD Work Phone: [facility] 06-20-2024 10:29-0400 Respiratory rate 18 /min Leonard Patel MD Work Phone: [facility] 06-20-2024 10:29-0400 SaO2% (BldA) [Mass fraction] 97 % Leonard Patel MD Work Phone: [facility] 06-20-2024 10:29-0400 Systolic blood pressure 144 mm[Hg] Leonard Patel MD Work Phone: [facility] 05-30-2024 09:49-0400 Body height 182.9 cm Anyarefugio Huang ELECTRONIC TESTER.[employer] Work Phone: [facility] 05-30-2024 09:49-0400 Body mass index (BMI) [Ratio] 47.88 kg/m2 Anyarefugio Phelpsndangy ELECTRONIC TESTER.[employer] Work Phone: [facility] 05-30-2024 09:49-0400 Body weight 160.12 kg Anyarefugio Phelpsndangy ELECTRONIC TESTER.[employer] Work Phone: [facility] Comment on above: per last visit. pt in wheelchair 05-30-2024 09:49-0400 Diastolic blood pressure 67 mm[Hg] Anyarefugio Phelpsnder ELECTRONIC TESTER.[employer] Work Phone: [facility] 05-30-2024 09:49-0400 Heart rate 72 /min Anya Huang ELECTRONIC TESTER.[employer] Work Phone: [facility] 05-30-2024 09:49-0400 Systolic blood pressure 128 mm[Hg] Anya Huang ELECTRONIC TESTER.[employer] Work Phone: [facility] 05-23-2024 11:01-0400 Body height 182.9 cm Leonard Patel MD Work Phone: [facility] 05-23-2024 11:01-0400 Diastolic blood pressure 77 mm[Hg] Leonard Patel MD Work Phone: [facility] 05-23-2024 11:01-0400 Heart rate 60 /min Leonard Patel MD Work Phone: [facility] 05-23-2024 11:01-0400 Respiratory rate 16 /min Leonard Patel MD Work Phone: [facility] 05-23-2024 11:01-0400 SaO2% (BldA) [Mass fraction] 98 % Leonard Patel MD Work Phone: [facility] 05-23-2024 11:01-0400 Systolic blood pressure 121 mm[Hg] Leonard Patel MD Work Phone: [facility] 05-22-2024 10:18-0400 Body height 182.9 cm Suellen Conley ELECTRONIC TESTER.[employer] Work Phone: [facility] 05-22-2024 10:18-0400 Heart rate 68 /min Suellen Conley ELECTRONIC TESTER.[employer] Work Phone: [facility] 05-22-2024 10:18-0400 SaO2% (BldA) [Mass fraction] 98 % Suellen Conley ELECTRONIC TESTER.[employer] Work Phone: [facility] 05-09-2024 13:46-0400 Diastolic blood pressure 67 mm[Hg] Leonard Patel MD Work Phone: [facility] 05-09-2024 13:46-0400 Heart rate 64 /min Leonard Patel MD Work Phone: [facility] 05-09-2024 13:46-0400 Respiratory rate 20 /min Leonard Patel MD Work Phone: [facility] 05-09-2024 13:46-0400 SaO2% (BldA) [Mass fraction] 93 % Leonard Patel MD Work Phone: [facility] 05-09-2024 13:46-0400 Systolic blood pressure 110 mm[Hg] Leonard Patel MD Work Phone: [facility] 05-08-2024 10:58-0400 Diastolic blood pressure 52 mm[Hg] Jed Wolf MD Work Phone: [facility] 05-08-2024 10:58-0400 Systolic blood pressure 115 mm[Hg] Jed Wolf MD Work Phone: [facility] 05-08-2024 10:51-0400 Body height 182.9 cm Jed Wolf MD Work Phone: [facility] 05-08-2024 10:51-0400 Body mass index (BMI) [Ratio] 47.93 kg/m2 Jed Wolf MD Work Phone: [facility] 05-08-2024 10:51-0400 Body weight 160.3 kg Jed Wolf MD Work Phone: [facility] 05-08-2024 10:51-0400 Heart rate 56 /min Jed Wolf MD Work Phone: [facility] 05-08-2024 10:51-0400 SaO2% (BldA) [Mass fraction] 96 % Jed Wolf MD Work Phone: [facility] 02-01-2024 13:33-0400 Body height 182.9 cm Karthik Holliday APRN.CNP Work Phone: [facility] 02-01-2024 13:33-0400 Body weight 142.88 kg Karthik Mastrucci ELECTRONIC TESTER.[employer] Work Phone: [facility] 02-01-2024 13:33-0400 Diastolic blood pressure 85 mm[Hg] Karthik Mastrucci ELECTRONIC TESTER.[employer] Work Phone: [facility] 02-01-2024 13:33-0400 Heart rate 57 /min Karthik Mastrucci ELECTRONIC TESTER.[employer] Work Phone: [facility] 02-01-2024 13:33-0400 Respiratory rate 18 /min Karthik Mastrucci ELECTRONIC TESTER.[employer] Work Phone: [facility] 02-01-2024 13:33-0400 SaO2% (BldA) [Mass fraction] 97 % Karthik Mastrucci ELECTRONIC TESTER.[employer] Work Phone: [facility] 02-01-2024 13:33-0400 Systolic blood pressure 146 mm[Hg] Karthik Mastrucci ELECTRONIC TESTER.[employer] Work Phone: [facility] 01-18-2023 14:14-0400 Body height 182.9 cm Patrciia Hsu PA-C Work Phone: [facility] 01-18-2023 14:14-0400 Diastolic blood pressure 73 mm[Hg] Patricia Hsu PA-C Work Phone: [facility] 01-18-2023 14:14-0400 Heart rate 79 /min Patricia Petersongs PA-C Work Phone: [facility] 01-18-2023 14:14-0400 SaO2% (BldA) [Mass fraction] 97 % Patricia Petersongs PA-C Work Phone: [facility] 01-18-2023 14:14-0400 Systolic blood pressure 125 mm[Hg] Patricia Hennigs PA-C Work Phone: [facility] 11-12-2022 14:02-0500 Body height 182.9 cm Rosalinda Shearers ELECTRONIC TESTER.[employer] Work Phone: [facility] 11-12-2022 14:02-0500 Body weight 145.79 kg Rosalinda Olivas ELECTRONIC TESTER.[employer] Work Phone: [facility] 11-12-2022 14:02-0500 Diastolic blood pressure 76 mm[Hg] Rosalinda Shearers ELECTRONIC TESTER.[employer] Work Phone: [facility] 11-12-2022 14:02-0500 Heart rate 56 /min Rosalinda Shearers ELECTRONIC TESTER.[employer] Work Phone: [facility] 11-12-2022 14:02-0500 Respiratory rate 12 /min Rosalinda Shearers ELECTRONIC TESTER.[employer] Work Phone: [facility] 11-12-2022 14:02-0500 SaO2% (BldA) [Mass fraction] 95 % Rosalinda Shearers ELECTRONIC TESTER.[employer] Work Phone: [facility] 11-12-2022 14:02-0500 Systolic blood pressure 124 mm[Hg] Rosalinda Shearers ELECTRONIC TESTER.[employer] Work Phone: [facility] 10-29-2022 09:03-0500 Diastolic blood pressure 75 mm[Hg] Josse Couch MD Work Phone: [facility] 10-29-2022 09:03-0500 Heart rate 60 /min Josse Couch MD Work Phone: [facility] 10-29-2022 09:03-0500 SaO2% (BldA) [Mass fraction] 93 % Josse Couch MD Work Phone: [facility] 10-29-2022 09:03-0500 Systolic blood pressure 149 mm[Hg] Josse Couch MD Work Phone: [facility] 10-21-2022 15:20-0500 Diastolic blood pressure 94 mm[Hg] Paul Mccall MD Work Phone: [facility] 10-21-2022 15:20-0500 Heart rate 67 /min Paul Mccall MD Work Phone: [facility] 10-21-2022 15:20-0500 SaO2% (BldA) [Mass fraction] 96 % Paul Mccall MD Work Phone: [facility] 10-21-2022 15:20-0500 Systolic blood pressure 128 mm[Hg] Paul Mccall MD Work Phone: [facility] 09-01-2022 14:54-0400 Body height 182.9 cm Lianne Menon ELECTRONIC TESTER.[employer] Work Phone: [facility] 09-01-2022 14:54-0400 Body weight 150.59 kg Lianne Menon ELECTRONIC TESTER.[employer] Work Phone: [facility] 09-01-2022 14:54-0400 Diastolic blood pressure 72 mm[Hg] Lianne Menon ELECTRONIC TESTER.[employer] Work Phone: [facility] 09-01-2022 14:54-0400 Heart rate 83 /min Lianne Menon ELECTRONIC TESTER.[employer] Work Phone: [facility] 09-01-2022 14:54-0400 Respiratory rate 16 /min Lianne Menon ELECTRONIC TESTER.[employer] Work Phone: [facility] 09-01-2022 14:54-0400 SaO2% (BldA) [Mass fraction] 97 % Lianne Menon ELECTRONIC TESTER.[employer] Work Phone: [facility] 09-01-2022 14:54-0400 Systolic blood pressure 128 mm[Hg] Lianne Menon ELECTRONIC TESTER.[employer] Work Phone: [facility] 05-08-2022 07:21-0400 Body height 182.9 cm Rosalinda Olivas ELECTRONIC TESTER.[employer] Work Phone: [facility] 05-08-2022 07:21-0400 Body temperature 97.7 [degF] Rosalinda Albertoadis ELECTRONIC TESTER.[employer] Work Phone: [facility] 05-08-2022 07:21-0400 Body weight 139.25 kg Rosalinda Shearers ELECTRONIC TESTER.[employer] Work Phone: [facility] 05-08-2022 07:21-0400 Diastolic blood pressure 93 mm[Hg] Rosalinda Albertoadis ELECTRONIC TESTER.[employer] Work Phone: [facility] 05-08-2022 07:21-0400 Heart rate 69 /min Rosalinda Albertoadis ELECTRONIC TESTER.[employer] Work Phone: [facility] 05-08-2022 07:21-0400 Respiratory rate 20 /min Rosalinda Albertoadis ELECTRONIC TESTER.[employer] Work Phone: [facility] 05-08-2022 07:21-0400 SaO2% (BldA) [Mass fraction] 98 % Rosalinda Albertoadis ELECTRONIC TESTER.[employer] Work Phone: [facility] 05-08-2022 07:21-0400 Systolic blood pressure 143 mm[Hg] Rosalinda Albertoadis ELECTRONIC TESTER.[employer] Work Phone: [facility] 04-10-2022 11:12-0400 Body height 15.2 cm Clint Euceda Jr., MD Work Phone: [facility] 04-10-2022 11:12-0400 Body weight 143.06 kg Clint Euceda Jr., MD Work Phone: [facility] 04-10-2022 11:12-0400 Diastolic blood pressure 88 mm[Hg] Clint Euceda Jr., MD Work Phone: [facility] 04-10-2022 11:12-0400 Heart rate 60 /min Clint Euceda Jr., MD Work Phone: [facility] 04-10-2022 11:12-0400 Respiratory rate 15 /min Clint Euceda Jr., MD Work Phone: [facility] 04-10-2022 11:12-0400 SaO2% (BldA) [Mass fraction] 97 % Clint Euceda Jr., MD Work Phone: [facility] 04-10-2022 11:12-0400 Systolic blood pressure 155 mm[Hg] Clint Euceda Jr., MD Work Phone: [facility] 02-19-2022 13:17-0400 Body height 182.9 cm Paul Lorenz MD Work Phone: [facility] 02-19-2022 13:17-0400 Body temperature 98.01 [degF] Paul Lorenz MD Work Phone: [facility] 02-19-2022 13:17-0400 Body weight 145.79 kg Paul Lorenz MD Work Phone: [facility] 02-19-2022 13:17-0400 Diastolic blood pressure 76 mm[Hg] Paul Lorenz MD Work Phone: [facility] 02-19-2022 13:17-0400 Heart rate 85 /min Paul Lorenz MD Work Phone: [facility] 02-19-2022 13:17-0400 Systolic blood pressure 128 mm[Hg] Paul Lorenz MD Work Phone: [facility] Encounters Encounter Date Encounter Type Care Provider Facility Start: 08-16-2025 ambulatory Violette MCCALL Faci lity:[facility] Start: 07-18-2025 End: 07-18-2025 ambulatory Violette MCCALL Facility:[facility] Start: 06-21-2025 End: 06-21-2025 Patient encounter procedure Anya Huang APRN.[employer] Work Phone: [facility] Comment on above: Spastic hemiparesis of left dominant side as late effect of cerebral infarction (HCC) (Primary Dx); Silent micro-hemorrhage of brain (HCC); Atrial flutter, unspecified type (HCC); Essential hypertension; Dyslipidemia Start: 06-21-2025 End: 06-21-2025 ambulatory ANYA HUANG Facility:[facility] Start: 06-11-2025 End: 06-11-2025 Patient encounter procedure Faith Moore APRN.[employer]ARY [employer]ER Work Phone: [facility] Start: 06-11-2025 End: 06-11-2025 ambulatory Faith Montgomery Oscar FELIX.CANARY RAISER Work Phone: [facility] Comment on above: Multiple subsegmenta l pulmonary emboli without acute cor pulmonale (HCC) (Primary Dx); Acute deep vein thrombosis (DVT) of proximal vein of lower extremity, unspecified laterality (HCC) Start: 05-21-2025 ambulatory Violette MCCALL Faci lity:[facility] Start: 05-14-2025 ambulatory CANDELARIO Mckeon y:[facility] Start: 05-14-2025 End: 05-14-2025 Subsequent hospital visit by physician Ekg/Holter/Event Monitor [facility] CARDIAC TESTING Comment on above: 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 [T82.539A] Start: 05-08-2025 End: 05-08-2025 Telephone encounter Orly Valencia MD Work Phone: [facility] Cardiology [facility] Comment on above: Atrial flutter, unsp ecified type (HCC) (Primary Dx) Start: 03-20-2025 End: 03-20-2025 ambulatory Violette MCCALL -[facility] [employer] [facility] Start: 03-20-2025 End: 03-20-2025 Departed Referred Violette Lanaemily -[facility] [employer] [facility] Start: 03-20-2025 End: 03-20-2025 ambulatory Violette MCCALL Facility:[facility] Start: 03-14-2025 End: 03-14-2025 ambulatory Madina Amador RN [employer] Start: 03-14-2025 End: 03-14-2025 Home visit Madina Amador RN [employer] Comment on above: 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 Care ( 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 ) Start: 02-22-2025 End: 02-22-2025 Patient encounter procedure Anya Huang APRN.CANARY RAISER Work Phone: Cerebrovascular Comment on above: Spastic hemiparesis of left dominant side as late effect of cerebral infarction (HCC) (Primary Dx); Silent micro-hemorrhage of brain (HCC); Atrial flutter, unspecified type (HCC); Essential hypertension; Dyslipidemia Start: 02-22-2025 End: 02-22-2025 ambulatory KARTHIK MASTRUCCI Facility:[facility] Start: 02-05-2025 End: 02-05-2025 ambulatory Violette Abdi [facility] Work Phone: Start: 02-05-2025 End: 02-05-2025 Departed Referred Violette Abdi [facility] Start: 02-05-2025 Registered Referred Violette Abdi [facility] Start: 02-05-2025 End: 02-05-2025 ambulatory Violette MCCALL Facility:[facility] Start: 01-20-2025 End: 01-20-2025 Orders Only Candelario Schwartz MD Work Phone: Cardiology Comment on above: 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 (Primary Dx) Start: 01-19-2025 End: 01-19-2025 Patient encounter procedure Leonard Patel MD Work Phone: [facility] Comment on above: Intracranial meningi javed (HCC) (Primary Dx); Traumatic subdural hematoma with loss of consciousness, sequela (HCC) Start: 01-19-2025 End: 01-19-2025 ambulatory KARTHIK MASTRUCCI Facility:[facility] Start: 01-18-2025 End: 01-18-2025 ambulatory Karthik Mastrucci [employer]RON[employer]STER[employer]AL Work Phone: [facility] Medicine [place] Comment on above: Eyes doctor Start: 01-16-2025 ambulatory KARTHIK MASTRUCCI Facili ty:[facility] Start: 01-16-2025 End: 01-16-2025 Subsequent hospital visit by physician Mri 3 [facility] (I-Stat/Lg Bore/1.5t) Work Phone: [facility] Comment on above: Intracranial meningi javed (HCC) [D32.0] Start: 01-08-2025 End: 01-08-2025 ambulatory Violette Abdi [facility] Work Phone: Start: 01-08-2025 End: 01-08-2025 Departed Referred Violette Nagel [employer] Start: 01-08-2025 End: 01-08-2025 ambulatory Violette MCCALL Facility:[facility] Start: 12-14-2024 End: 12-14-2024 ambulatory Faith Moore APRN.CANARY RAISER Work Phone: [facility] Hematology/Oncology Comment on above: the rest of results Start: 12-14-2024 End: 12-14-2024 E-mail encounter from caregiver Faith Montgomery Oscar [place].CANARY RAISER Work Phone: [facility] Hematology/Oncology Start: 12-12-2024 End: 12-12-2024 Patient encounter procedure Faith Moore APRN.CANARY RAISER Work Phone: [facility] Hematology/Oncology Start: 12-12-2024 End: 12-12-2024 ambulatory Faith Moore APRN.CANARY RAISER Work Phone: [facility] Hematology/Oncology Comment on above: Multiple subsegmenta l pulmonary emboli without acute cor pulmonale (HCC); Acute deep vein thrombosis (DVT) of proximal vein of lower extremity, unspecified laterality (HCC) Start: 12-01-2024 End: 12-01-2024 Telephone encounter Karthik Holliday APRN.CANARY RAISER Work Phone: [facility] Comment on above: Medication Problem Start: 11-29-2024 End: 11-29-2024 Telephone encounter Karthik Holliday APRN.CANARY RAISER Work Phone: [facility] Start: 11-28-2024 End: 11-28-2024 Telemedicine consultation with patient Karthik Holliday APRN.CANARY RAISER Work Phone: [facility] Start: 11-28-2024 End: 11-28-2024 ambulatory Karthik Holliday APRN.CANARY RAISER Work Phone: [facility] Comment on above: Depression, unspecif ied depression type (Primary Dx) Start: 11-06-2024 End: 11-06-2024 Departed Referred Violette [facility] Start: 11-06-2024 End: 11-06-2024 ambulatory Violette Abdi [facility] Facility:[facility] Start: 10-27-2024 End: 10-27-2024 Patient encounter procedure Leonard Patel MD Work Phone: [facility] Comment on above: Intracranial meningi javed (HCC) (Primary Dx); Benign neoplasm of meninges (HCC) Start: 10-27-2024 End: 10-27-2024 ambulatory KARTHIK MASTCC Facility[facility] Start: 10-27-2024 End: 10-27-2024 Subsequent hospital visit by physician [facility]Spine [facility] CT SCAN [facility] Comment on above: Traumatic subdural h ematoma [...] hypertension; Dyslipidemia Start: 10-26-2024 End: 10-26-2024 ambulatory [facility] Facility[facility] Start: 10-13-2024 End: 10-13-2024 Patient encounter procedure Leonard Patel MD Work Phone: [facility] Comment on above: Traumatic subdural h ematoma with loss of consciousness, sequela (HCC) (Primary Dx); Intracranial meningioma (HCC) Start: 10-13-2024 End: 10-13-2024 ambulatory KARTHIK MASTRUCCI Facility:[facility] Start: 10-10-2024 End: 10-10-2024 Telephone encounter Agata Del Toro APRN.CNP Work Phone: [facility] Comment on above: Results Start: 10-06-2024 ambulatory Violette MCCALL Faci lity:[facility] Start: 10-04-2024 End: 10-04-2024 Telephone encounter Anya Huang APRN.CANARY RAISER Work Phone: Neurology Start: 10-02-2024 [facility] Start: 10-02-2024 End: 10-02-2024 Subsequent hospital visit by physician Mri 3 [facility] (I-Stat/Lg Bore/1.5t) Work Phone: 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 Comment on above: High blood pressure Start: 09-20-2024 End: 09-20-2024 Telephone encounter Karthik Holliday APRN.CNP Work Phone: [facility] Comment on above: Patient Update Start: 09-18-2024 End: 09-18-2024 Patient encounter procedure Karthik Holliday APRN.CNP Work Phone: [facility] Comment on above: Hospital discharge f ollow-up [...] Start: 09-18-2024 End: 09-18-2024 ambulatory KARTHIK HOLLIDAY Facility:[facility] Start: 09-11-2024 End: 09-11-2024 ambulatory Madina Amador RN [employer] Start: 09-11-2024 End: 09-11-2024 Home visit Madina RILEY [employer] Comment on above: 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 Care ( Discharged from [facility] to home) Initial phone contac t for Transitional Care Management Start: 07-05-2024 End: 07-05-2024 Refill Karthik Holliday APRN.CNP Work Phone: [facility] Comment on above: Refill Request Start: 06-22-2024 E-mail encounter fro m caregiver Nithya Riggs APRN.CNP Work Phone: [facility] Start: 06-22-2024 Follow-up encounter Nithya Riggs APRN.CNP Work Phone: [facility] Comment on above: Actionable Finding f ollow up Start: 06-20-2024 End: 06-20-2024 Patient encounter procedure Leonard Patel MD Work Phone: [facility] Comment on above: Traumatic subdural h ematoma with loss of consciousness, sequela (HCC) (Primary Dx) Start: 06-20-2024 End: 06-20-2024 Subsequent hospital visit by physician [facility]Spine [facility] SCAN [facility] Comment on above: Traumatic subdural h ematoma with loss of consciousness, sequela (HCC) [S06.5X9S] Start: 06-08-2024 ambulatory Madina Amador RN [facility] Start: 06-08-2024 Home visit Madina Amador RN [facility] Comment on above: 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 Care ( [facility] Discharge to [facility]) Start: 06-07-2024 Telephone encounter Femi Segovia) Kylee shepard [facility] Start: 06-02-2024 E-mail encounter augie montgomery caregiver Nithya Riggs APRN.CHAN Work Phone: [facility] Start: 06-02-2024 Follow-up encounter Nithya Riggs APRN.CHAN Work Phone: [facility] Comment on above: Actionable Finding F ollow up Start: 05-30-2024 End: 05-30-2024 Patient encounter procedure Anya Huang APRN.CANARY RAISER Work Phone: Cerebrovascular Comment on above: Hemiparesis affectin g left side as late effect of cerebrovascular accident (HCC) (Primary Dx); Aphasia as late effect of cerebrovascular accident; Silent micro-hemorrhage of brain (HCC); Subdural hematoma (HCC); SAH (subarachnoid hemorrhage) (HCC); Atrial flutter, unspecified type (HCC); Essential hypertension; Dyslipidemia Start: 05-23-2024 End: 05-23-2024 Patient encounter procedure Leonard Patel MD Work Phone: [facility] Comment on above: Traumatic subdural h ematoma with loss of consciousness, sequela (HCC) (Primary Dx); Intracranial meningioma (HCC) Start: 05-23-2024 End: 05-23-2024 Subsequent hospital visit by physician [facility]Spine [facility] CT SCAN [employer] [facility] Comment on above: Traumatic subdural h ematoma with loss of consciousness, sequela (HCC) [S06.5X9S] Start: 05-22-2024 ambulatory Madina Amador RN [facility] Start: 05-22-2024 Home visit Madina Amador RN [facility] Comment on above: 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 Care ( Discharged from [facility] to [facility]) Start: 05-22-2024 End: 05-22-2024 Office outpatient visit 15 minutes Suellen Conley APRN.CANARY RAISER Work Phone: [facility] Comment on above: Benign prostatic hyp erplasia with urinary retention (Primary Dx) Start: 05-17-2024 Telephone encounter Paul Mccall MD Work Phone: [facility] Start: 05-09-2024 End: 05-09-2024 Patient encounter procedure Leonard Patel MD Work Phone: [facility] Comment on above: Traumatic subdural h ematoma with loss of consciousness, sequela (HCC) (Primary Dx); Intracranial meningioma (HCC) Start: 05-09-2024 End: 05-09-2024 Subsequent hospital visit by physician [facility]Spine RADIO CT SCAN [place] [facility] Comment on above: SDH (subdural hemato ma) (HCC) [S06.5XAA] Start: 05-08-2024 End: 05-08-2024 Patient encounter procedure Jed Wolf MD Work Phone: Cardiology Comment on above: Atrial flutter, unsp ecified type (HCC) (Primary Dx); Subdural hematoma (HCC); History of ischemic stroke Start: 05-05-2024 Telephone encounter Agata foote APRN.CANARY RAISER Work Phone: [facility] Comment on above: Patient Update Results Start: 05-04-2024 Orders Only Jed Wolf MD Work Phone: Cardiology Comment on above: Atrial flutter, unsp ecified type (HCC) (Primary Dx) Start: 05-03-2024 Telephone encounter Anya arciniega APRN.CANARY RAISER Work Phone: NEUROLOGY Comment on above: Results Start: 04-27-2024 End: 09-11-2024 ambulatory Karthik Holliday ELECTRONIC TESTER.CANARY RAISER Work Phone: [facility] Comment on above: Hospital F/U Opened In Error Start: 04-26-2024 ambulatory Karthik Mastruc ci ELECTRONIC TESTER.CANARY RAISER Work Phone: [facility] Comment on above: Hospital F/U Start: 04-26-2024 Home visit Madina Amador RN [facility] Comment on above: 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 Care ( CCAG Discharge to [facility]) Start: 04-23-2024 Orders Only Scott Cervantes er ELECTRONIC TESTER.CANARY RAISER Work Phone: [facility] Comment on above: SDH (subdural hemato ma) (HCC) (Primary Dx) Start: 04-17-2024 ambulatory Karthik Mastruc ci ELECTRONIC TESTER.CANARY RAISER Work Phone: [facility] Start: 02-14-2024 Telephone encounter Karthik Atif jovita ELECTRONIC TESTER.CANARY RAISER Work Phone: [facility] Comment on above: Results Start: 02-09-2024 Refill Karthik Mastruc ci ELECTRONIC TESTER.CANARY RAISER Work Phone: [facility] Comment on above: Refill Request Start: 02-02-2024 Telephone encounter Karthik Atif alejandroucci ELECTRONIC TESTER.CANARY RAISER Work Phone: [facility] Comment on above: Results Start: 02-01-2024 End: 02-01-2024 Patient encounter procedure Karthik Mastrucci ELECTRONIC TESTER.CANARY RAISER Work Phone: [facility] Comment on above: Encounter to [facility] (Primary Dx); Essential hypertension; Dyslipidemia; Benign prostatic hyperplasia with lower urinary tract symptoms, symptom details unspecified; Screening for HIV (human immunodeficiency virus); Vitamin D deficiency; Screening for prostate cancer; Depression, unspecified depression type; Encounter for immunization; Venous insufficiency; Localized swelling of left lower leg Start: 03-01-2023 Telephone encounter Clint Eucead MD Work Phone: [facility] Comment on above: Appointment (Cancell ation) Start: 02-01-2023 Refill Clint Euceda MD Work Phone: [facility] Comment on above: Refill Request Start: 02-01-2023 Telephone encounter Clint Euceda MD Work Phone: [facility] Comment on above: Appointment (Cancell ation) Start: 01-18-2023 End: 01-18-2023 Patient encounter procedure Patricia Hsu PA-C Work Phone: [facility] Comment on above: Parkinsonism, unspec ified Parkinsonism type (HCC) (Primary Dx) Start: 12-17-2022 Refill Clint Euceda MD Work Phone: [facility] Comment on above: Refill Request Start: 12-01-2022 ambulatory Dayan Mina RN Work Phone: [facility] Start: 12-01-2022 Follow-up encounter Dayan dhillon RN Work Phone: [employer] Comment on above: 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 Care ( TCM PNA follow up call) Start: 11-24-2022 ambulatory Dayan Mina RN Work Phone: [facility] Start: 11-24-2022 Follow-up encounter Dayanalexsandra dhillon RN Work Phone: [employer] Comment on above: 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 Care ( TCM PNA follow up call) Start: 11-17-2022 ambulatory Dayan Mina RN Work Phone: [facility] Start: 11-17-2022 Follow-up encounter Dayan dhillon RN Work Phone: [employer] Comment on above: 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 Care ( TCM follow up call) Start: 11-12-2022 End: 11-12-2022 Patient encounter procedure Rosalinda Olivas APRN.CANARY RAISER Work Phone: [facility] Comment on above: Hospital discharge f ollow-up (Primary Dx); Essential hypertension; Pneumonia due to influenza A virus; Weakness; Balance problem Start: 11-10-2022 ambulatory Dayan Mina RN Work Phone: [facility] Start: 11-10-2022 Follow-up encounter Dayan A Ei jacquie RN Work Phone: [employer] Comment on above: 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 Care ( TCM follow up call) Start: 11-10-2022 Telephone encounter Josse balbuena MD Work Phone: [facility] Comment on above: Medication Problem Start: 10-29-2022 End: 10-29-2022 Patient encounter procedure Josse Couch MD Work Phone: [facility] Comment on above: Parkinsonism, unspec ified Parkinsonism type (HCC) (Primary Dx); HARJEET (obstructive sleep apnea) Start: 10-21-2022 End: 10-21-2022 Patient encounter procedure Paul Mccall MD Work Phone: Urology Comment on above: Benign prostatic hyp erplasia with lower urinary tract symptoms, symptom details unspecified (Primary Dx); Urinary frequency Start: 10-08-2022 Patient Outreach Moo Mello [employer] Comment on above: 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 Care ( Dc from [facility] 10/05/22) Start: 10-07-2022 End: 10-07-2022 ambulatory Josse Couch MD Work Phone: Neurology Comment on above: Shuffling gait (Prim heydi Dx); Gait instability Start: 10-07-2022 End: 10-07-2022 Telemedicine consultation with patient Josse Couch MD Work Phone: [facility] Start: 09-29-2022 Patient Outreach Moo Mello [employer] Comment on above: 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 Care ( SNF update) Start: 09-24-2022 Telephone encounter Clint Euceda MD Work Phone: [facility] Comment on above: Referral Information (Consult to Neurology # [id number]) Start: 09-22-2022 ambulatory Clint Euceda MD Work Phone: [employer] Start: 09-21-2022 Patient Outreach Moo Mello [employer] Comment on above: 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 Care Start: 09-17-2022 Telephone encounter Clint Euceda MD Work Phone: [facility] Comment on above: Patient Question (Pt would like to see Neurology to investigate possibility of Parkinsonism.) Start: 09-14-2022 End: 09-14-2022 Departed Referred [facility] Start: 09-14-2022 Registered Referred [facility] [employer] [facility] Start: 09-11-2022 End: 09-11-2022 ambulatory [facility] Work Phone: Start: 09-11-2022 End: 09-11-2022 Departed Referred [facility] [employer] [facility] Start: 09-09-2022 End: 09-09-2022 ambulatory [facility] Work Phone: Start: 09-09-2022 End: 09-09-2022 Departed Referred [facility] [employer] [facility] Start: 09-09-2022 Registered Referred [facility] [employer] [facility] Start: 09-08-2022 Telephone encounter Layne Cruz APRN.CANARY RAISER Work Phone: [facility] Comment on above: Hospital F/U Start: 09-07-2022 Patient Outreach Moo Mello [employer] Comment on above: 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 Care ( [facility] to SNF 09/06/22) Start: 09-03-2022 Telephone encounter Paul Mccall MD Work Phone: [facility] Start: 09-03-2022 End: 09-03-2022 Patient encounter procedure Mitzi Dennis APRN.CANARY RAISER Work Phone: Urology Comment on above: NO SHOW (Primary Dx) Start: 09-01-2022 End: 09-01-2022 Patient encounter procedure Lianne Menon APRN.CANARY RAISER Work Phone: [facility] Comment on above: Fall, initial encoun ter (Primary Dx); Balance problem; Fatigue, unspecified type Start: 05-08-2022 End: 05-08-2022 Patient encounter procedure Rosalinda Olivas APRN.CANARY RAISER Work Phone: [facility] [place] Comment on above: Chronic midline thor acic back pain (Primary Dx); Dyslipidemia; Balance problem Start: 04-10-2022 End: 04-10-2022 Patient encounter procedure Clint Euceda MD Work Phone: [facility] Comment on above: Benign prostatic hyp erplasia with lower urinary tract symptoms, symptom details unspecified (Primary Dx); Essential hypertension; Dyslipidemia Start: 03-23-2022 Refill Jay muniz MD Work Phone: [facility] Comment on above: Refill Request (Lipi tor) Start: 02-19-2022 End: 02-19-2022 Patient encounter procedure Paul Lorenz MD Work Phone: [facility] Comment on above: Essential hypertensi on (Primary Dx); [facility] current use of diuretic Procedures Date Procedure Procedure Detail Performing Clinician Start: 02-22-2025 Follow-up visit Follow Up FELICITA HUANG Start: 09-18-2024 Adult depression scr eening assessment Karthik Mastrucci ELECTRONIC TESTER.[employer] Work Phone: Start: 04-18-2024 Lipid 1996 panel - S osvaldo or Plasma Karthik Mastrucci ELECTRONIC TESTER.[employer] Work Phone: Start: 02-01-2024 Lipid 1996 panel - S osvaldo or Plasma Karthik Mastrucci ELECTRONIC TESTER.[employer]ER Work Phone: Start: 10-21-2022 BLADDER SCAN Paul Mccall MD Work Phone: Start: 01-19-2022 Adult depression scr eening assessment Paul Lorenz MD Work Phone: Start: 10-22-2020 Colonoscopy Paul waller MD Work Phone: Plan of Treatment Date Care Activity Detail Author Start: 07-02-2030 Urine microalbumin profile [facility] Start: 04-18-2029 Lipid panel Lipid Screening [facility] Start: 01-31-2029 Lipid panel Lipid Screening [facility] Start: 01-31-2029 Prostate specific antigen measurement Prostate Cancer Screening Discussion [facility] Start: 12-12-2027 Diabetes Screening Diabetes Screening [facility] Start: 09-27-2027 Diabetes Screening Diabetes Screening [facility] Start: 06-06-2027 Diabetes Screening Diabetes Screening [facility] Start: 05-18-2027 Diabetes Screening Diabetes Screening [facility] Start: 05-07-2027 Diabetes Screening Diabetes Screening [facility] Start: 04-22-2027 Diabetes Screening Diabetes Screening [facility] Start: 04-17-2027 Diabetes Screening Diabetes Screening [facility] Start: 01-31-2027 Diabetes Screening Diabetes Screening [facility] Start: 11-08-2026 Screening for malignant neoplasm of colon Colorectal Cancer Screening [facility] Comment on above: Postponed from 01/26/2004 (Postponed To Appropriate Date) Start: 12-12-2025 BP Controlled (<130/80) BP Controlled (<130/80) [facility] Start: 12-10-2025 End: 12-10-2025 ambulatory 12/10/2025 10:00 AM EST Visit (SP) Office [facility] [address] [place] [address] Faith Moore, ELECTRONIC TESTER.[employer] [address] [place] [address] 6mo ov [facility] Comment on above: 6mo ov Start: 11-28-2025 Annual PCP Team Chronic Disease Visit Annual PCP Team Chronic Disease Visit [facility] Start: 11-21-2025 End: 11-21-2025 Patient encounter procedure 11/21/2025 1:30 PM EST Office Visit Cerebrovascular [address] [place] [address] Anya Huang, ELECTRONIC TESTER.CANARY RAISER [address] [place] [address] [place] [id number] 5 month follow up Cerebrovascular Comment on above: 5 month follow up Start: 11-01-2025 DIABETES SCREEN DIABETES SCREEN [facility] Start: 11-01-2025 Diabetes Screening Diabetes Screening [facility] Start: 10-29-2025 DIABETES SCREEN DIABETES SCREEN [facility] Start: 09-18-2025 Annual PCP Team Chronic Disease Visit Annual PCP Team Chronic Disease Visit [facility] Start: 09-18-2025 Anxiety Screening Anxiety Screening [facility] [facility] Start[facility] 09-18-2025 Depression Screening Depression Screening [facility] Start: 09-17-2025 End: 09-17-2025 Patient encounter procedure 09/17/2025 8:20 AM EST Office Visit [facility] [address] [place] [address] Orly Valencia MD [address] [place] [address] Wolf ([facility]) Franco [facility] Comment on above: DEBBI from Dr. Wolf ([facility]) Maria Luisa tter Start: 09-03-2025 DIABETES SCREEN DIABETES SCREEN [facility] Start: 09-01-2025 DIABETES SCREEN DIABETES SCREEN [facility] Start: 07-09-2025 Influenza vaccination Influenza Vaccine (#1) [facility] Start: 06-28-2025 End: 06-28-2025 Patient encounter procedure 06/28/2025 3:20 PM EDT Office Visit [facility] [address] [place] [address] Orly Valencia MD [address] [place] [address] Wolf ([facility]) Artial Flutter [facility] Comment on above: DEBBI from Dr. Wolf ([facility]) Jacquelyn al Flutter Start: 06-21-2025 End: 06-21-2025 Patient encounter procedure 06/21/2025 1:00 PM EDT Office Visit [facility] [address] [place], [place] [phone] Anya Huang APRN.[facility] [address] [place], [place] [phone] 4 month follow up [facility] Comment on above: 4 month follow up Start: 06-11-2025 End: 06-11-2025 ambulatory 06/11/2025 10:00 AM EDT Visit (SP) Office [facility] [address] [place] [address] Faith Moore, ELECTRONIC TESTER.[facility] [address] [place] [address] 6mo ov f/u [facility] Comment on above: 6mo ov f/u Start: 05-30-2025 BP Controlled (<130/80) BP Controlled (<130/80) [facility] in Start: 05-23-2025 BP Controlled (<130/80) BP Controlled (<130/80) [facility] Start: 05-14-2025 End: 05-14-2025 Patient encounter procedure 05/14/2025 1:45 PM EDT Appointment [facility] [address] [place], [place] [id number] Dx: Consideration of Watchman Device [facility] Comment on above: Dx: Consideration of Watchman Device Start: 05-09-2025 BP Controlled (<130/80) BP Controlled (<130/80) [facility] Start: 05-08-2025 End: 05-08-2025 ambulatory 05/08/2025 12:15 PM EDT Procedure Cardiology [address] [place] [address] Dx: Consideration of Watchman Device Cardiology Comment on above: Dx: Consideration of Watchman Device Start: 05-08-2025 End: 05-08-2025 Patient encounter procedure Cardiology Comment on above: Dx: Consideration of Watchman Device Start: 03-09-2025 DIABETES SCREEN DIABETES SCREEN [facility] Start: 02-22-2025 End: 02-22-2025 Patient encounter procedure 02/22/2025 1:30 PM EDT Office Visit [facility] [address] [place], [place] [phone] Anya Huang, ELECTRONIC TESTER.[employer] [address] [place] [phone] 4 month follow up [facility] Comment on above: 4 month follow up Start: 02-14-2025 Covid-19 Vaccine ( season) Covid-19 Vaccine ( season) [facility] Start: 01-31-2025 Annual PCP Team Chronic Disease Visit Annual PCP Team Chronic Disease Visit [facility] Start: 01-31-2025 Covid-19 Vaccine ( season) Covid-19 Vaccine ( season) [facility] Comment on above: Postponed from 07/09/2023 (Declined at t his time) Start: 01-31-2025 RSV Vaccine (1 - 1-dose 60+ series) RSV Vaccine (1 - 1-dose 60+ series) [facility] Comment on above: Postponed from 2019 (Declined at t his time) Start: 01-31-2025 RSV Vaccine (1 - Risk 60-74 years 1-dose series) RSV Vaccine (1 - Risk 60-74 years 1-dose series) [facility] Comment on above: Postponed from 2019 (Declined at t his time) Start: 01-31-2025 Shingrix Vaccine (1 of 2) Shingrix Vaccine (1 of 2) [facility] Comment on above: Postponed from 2009 (Declined at t his time) Start: 01-19-2025 End: 01-19-2025 Patient encounter procedure 01/19/2025 10:30 AM EDT Office Visit [facility] [address] [facility] [place] [phone] Leonard Patel MD [address] [place] [address] follow up after MRI done 01/16 [facility] Comment on above: follow up after MRI done 01/16 Start: 01-16-2025 End: 01-16-2025 Patient encounter procedure 01/16/2025 10:30 AM EDT Appointment [facility] [address] [place], [place] [id number] Intracranial meningioma (HCC) [D32.0]; Benign neoplasm of meninges (HCC) [D32.9] [facility] Comment on above: Intracranial meningioma (HCC) [D32.0]; B enign neoplasm of meninges (HCC) [D32.9] Start: 12-21-2024 End: 12-21-2024 Patient encounter procedure 12/21/2024 1:40 PM EST Office Visit [facility] [address] [place] [address] Karthik Holliday APRN.[facility]ARY RAISER [address] [place] [address] 3 Month Follow-up [facility] Comment on above: 3 Month Follow-up Start: 12-12-2024 End: 03-13-2025 BETA 2 GLYCOPROTEIN, [facility] Comment on above: Expected: 12/12/2024, Expires: Start: 12-12-2024 End: 03-13-2025 BETA 2 GLYCOPROTEIN, [facility] Comment on above: Expected: 12/12/2024, Expires: Start: 12-12-2024 End: 03-13-2025 Cardiolipin IgG and IgM panel - Serum [facility] Comment on above: Expected: 12/12/2024, Expires: Start: 12-12-2024 End: 03-13-2025 F2 gene mutations found [Identifier] in Blood or Tissue by Molecular genetics method Nominal [facility] Comment on above: Expected: 12/12/2024, Expires: Start: 12-12-2024 End: 03-13-2025 FACTOR V LEIDEN/PCR [facility] Work Phone: Comment on above: Expected: 12/12/2024, Expires: Start: 12-12-2024 End: 12-12-2024 ambulatory [facility] Hematology/Oncol ogy Comment on above: Multiple subsegmental pulmonary emboli w ithout acute cor pulmonale Start: 11-08-2024 Advance Directive Discussion Advance Directive Discussion [facility] Start: 11-08-2024 Medicare Advantage Annual Wellness Visit Medicare Advantage Annual Wellness Visit [facility] Start: 10-27-2024 End: 10-27-2024 Patient encounter procedure [facility]IO [facility] Comment on above: Brain [address] CT BRAIN WO Start: 10-26-2024 End: 10-26-2024 Patient encounter procedure 10/26/2024 10:30 AM EST Office Visit [facility] [address] [place] [address] Anya Huang APRN.[facility]ARY RAISER [address] [place] [address] 10 week follow up [facility] Comment on above: 10 week follow up Start: 10-20-2024 End: 10-20-2024 Patient encounter procedure 10/20/2024 11:30 AM EST Office Visit [facility] [address] [facility] [phone] Leonard Patel MD [address] [facility] [place] [address] 4 month routine f/u [facility] Comment on above: 4 month routine f/u Start: 10-13-2024 End: 10-13-2024 Patient encounter procedure 10/13/2024 11:45 AM EST Office Visit [facility] [address] [facility] [place] [phone] Leonard Patel MD [address] [place] [address] 4 month routine f/u [facility] Comment on above: 4 month routine f/u Start: 10-02-2024 End: 10-02-2024 Patient encounter procedure 10/02/2024 8:00 AM EST Appointment [facility] [address] 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] [facility] Comment on above: Silent micro-hemorrhage of brain (HCC) [ I61.8] Start: 09-22-2024 End: 09-22-2024 Patient encounter procedure 09/22/2024 7:20 AM EST Office Visit [facility] [address] [place] [address] Rosalinda Olivas APRN.CANARY RAISER [address] [facility] [address] [place] [address] BP [facility] Comment on above: BP Start: 09-18-2024 End: 12-18-2024 25-hydroxyvitamin D3 [Mass/volume] in Serum or Plasma VITAMIN D 25 HYDROXY Lab Routine Essential hypertension Expected: 09/18/2024, Expires: 12/18/2024 [facility] Comment on above: Expected: 09/18/2024, Expires: Start: 09-18-2024 End: 12-18-2024 CBC W Auto Differential panel - Blood COMPLETE BLOOD COUNT AND DIFFERENTIAL Lab Routine Essential hypertension Expected: 09/18/2024, Expires: 12/18/2024 [facility] Comment on above: Expected: 09/18/2024, Expires: Start: 09-18-2024 End: 12-18-2024 Comprehensive metabolic 2000 panel - Serum or Plasma COMPREHENSIVE METABOLIC PANEL Lab Routine Essential hypertension Expected: 09/18/2024, Expires: 12/18/2024 [facility] Comment on above: Expected: 09/18/2024, Expires: Start: 09-18-2024 End: 12-18-2024 Hemoglobin A1c in Blood HEMOGLOBIN A1C Lab Routine Essential hypertension Dyslipidemia Expected: 09/18/2024, Expires: 12/18/2024 [facility] Comment on above: Expected: 09/18/2024, Expires: Start: 09-18-2024 End: 12-18-2024 Lipid 1996 panel - Serum or Plasma LIPID PANEL BASIC Lab Routine Essential hypertension Dyslipidemia Expected: 09/18/2024, Expires: 12/18/2024 [facility] Comment on above: Expected: 09/18/2024, Expires: Start: 09-18-2024 End: 12-18-2024 Microalbumin/Creatinine [Mass Ratio] in Urine ALBUMIN/CREATININE RATIO, URINE Lab Routine Essential hypertension Expected: 09/18/2024, Expires: 12/18/2024 [facility] Comment on above: Expected: 09/18/2024, Expires: Start: 09-18-2024 End: 12-18-2024 Prostate Specific Ag Free [Mass/volume] in Serum or Plasma PROSTATE SPECIFIC ANTIGEN, FREE Lab Routine Benign prostatic hyperplasia with lower urinary tract symptoms, symptom details unspecified Expected: 09/18/2024, Expires: 12/18/2024 [facility] Comment on above: Expected: 09/18/2024, Expires: Start: 09-18-2024 End: 12-18-2024 Thyrotropin [Units/volume] in Serum or Plasma THYROID STIMULATING HORMONE Lab Routine Thyroid nodule Expected: 09/18/2024, Expires: 12/18/2024 [facility] Comment on above: Expected: 09/18/2024, Expires: Start: 09-18-2024 End: 09-18-2024 Patient encounter procedure 09/18/2024 1:20 PM EST Office Visit [facility] [address] [place] [address] Karthik Holliday, FELIX.[facility] [address] [place] [address] TCM rehab follow up, failure to thrive, [facility] 09/08 [facility] Comment on above: TCM rehab follow up, failure to thrive, 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] [facility] Comment on above: Silent micro-hemorrhage of brain (HCC) [ I61.8] Start: 08-04-2024 End: 08-04-2024 Patient encounter procedure 08/04/2024 2:40 PM EDT Office Visit [facility] [address] [place], [place] [address] Karthik Holliday, ELECTRONIC TESTER.[facility] [address] [place] [address] 6 month follow up [facility] Comment on above: 6 month follow up Start: 07-09-2024 Covid-19 Vaccine ( season) Covid-19 Vaccine ( season) [facility] Start: 07-09-2024 Influenza vaccination [facility] Start: 06-20-2024 End: 06-20-2024 Patient encounter procedure [facility] Comment on above: CT BRAIN WO 4 week f/u, CT today Start: 06-09-2024 Orders Only 06/09/2024 Orders Only Cardiology [address] [id number] Jed Wolf MD [address] [place] [address] Cardiology Start: 05-30-2024 End: 05-30-2024 Patient encounter procedure 05/30/2024 9:30 AM EDT Office Visit [facility] [address] [place], [place] [phone] Anya Huang, ELECTRONIC TESTER.[employer]ARY [facility]ER [address] [phone] Order [id number] [facility] Comment on above: Order [id number] Start: 05-26-2024 End: 05-26-2024 Patient encounter procedure [facility] Comment on above: CT BRAIN WO post op, CT today Start: 05-23-2024 End: 05-23-2024 Patient encounter procedure RADIO [facility] Comment on above: CT BRAIN WO-GK [address] Start: 05-22-2024 End: 05-22-2024 Patient encounter procedure 05/22/2024 10:00 AM EDT Office Visit [facility] [address] [place] [address] Suellen Conley APRN.[facility]ARY [facility]ER [address] [place] [address] [place] by [facility] follow up for void trial-no [place]-call from [facility] [phone] [facility] Comment on above: [place] by [facility] follow up fo r void trial-no [place]-call from [facility] [phone] Start: 05-19-2024 End: 05-19-2024 Patient encounter procedure RADIO [facility] Comment on above: CT BRAIN WO-GK [address] Start: 05-08-2024 End: 05-08-2024 Patient encounter procedure 05/08/2024 9:45 AM EDT Office Visit Cardiology [address] [place] [address] Jed Wolf MD [address] [place], [place] [phone] Atrial flutter, unspecified type (HCC) [I48.92] Cardiology Comment on above: Atrial flutter, unspecified type (HCC) [ I48.92] Start: 05-08-2024 End: 05-08-2024 ambulatory 05/08/2024 8:45 AM EDT Results Only Cardiology [address] [place] [address] Atrial flutter, unspecified type (HCC) [I48.92] Cardiology Comment on above: Atrial flutter, unspecified type (HCC) [ I48.92] Start: 05-07-2024 Influenza vaccination Influenza Vaccine (#1) [facility] Comment on above: Postponed from 07/09/2023 (Declined at t his time) Start: 05-02-2024 End: 05-02-2024 Patient encounter procedure 05/02/2024 1:30 PM EDT Office Visit [facility] [address] [place] [phone] Leonard Patel MD [address] [facility] [place], [place] [phone] 1st post op, suture removal [facility] Comment on above: 1st post op, suture removal Start: 03-02-2024 ANNUAL PCP TEAM CHRONIC DISEASE VISIT ANNUAL PCP TEAM CHRONIC DISEASE VISIT [facility] Start: 02-01-2024 End: 05-02-2024 25-hydroxyvitamin D3 [Mass/volume] in Serum or Plasma [facility] Work Phone: Comment on above: Expected: 02/01/2024, Expires: Start: 01-19-2024 BP CONTROLLED (<130/80) BP CONTROLLED (<130/80) [facility] Start: 11-12-2023 ANNUAL PCP TEAM CHRONIC DISEASE VISIT ANNUAL PCP TEAM CHRONIC DISEASE VISIT [facility] Start: 11-12-2023 BP CONTROLLED (<130/80) BP CONTROLLED (<130/80) [facility] Start: 11-08-2023 Behavioral Health Screening Behavioral Health Screening [facility] Start: 10-22-2023 Colonoscopy COLONOSCOPY [facility] Start: 10-22-2023 COLORECTAL CANCER SCREENING COLORECTAL CANCER SCREENING [facility] Start: 10-22-2023 Screening for malignant neoplasm of colon Colonoscopy [facility] Start: 09-01-2023 BP CONTROLLED (<130/80) BP CONTROLLED (<130/80) [facility] Start: 07-09-2023 Influenza vaccination INFLUENZA (#1) [facility] Start: 05-08-2023 ANNUAL PCP TEAM CHRONIC DISEASE VISIT ANNUAL PCP TEAM CHRONIC DISEASE VISIT [facility] Start: 04-10-2023 ANNUAL PCP TEAM CHRONIC DISEASE VISIT ANNUAL PCP TEAM CHRONIC DISEASE VISIT [facility] Start: 03-09-2023 ANNUAL PCP TEAM CHRONIC DISEASE VISIT ANNUAL PCP TEAM CHRONIC DISEASE VISIT [facility] Start: 03-03-2023 PROSTATE CANCER SCREENING DISCUSSION PROSTATE CANCER SCREENING DISCUSSION [facility] Comment on above: Postponed from 05/25/2021 (Postponed - N ot Clinically Indicated) Start: 02-19-2023 ANNUAL PCP TEAM CHRONIC DISEASE VISIT ANNUAL PCP TEAM CHRONIC DISEASE VISIT [facility] Start: 02-19-2023 BP CONTROLLED (<130/80) BP CONTROLLED (<130/80) [facility] in Start: 02-19-2023 HIV SCREENING HIV SCREENING [facility] Comment on above: Postponed from 1977 (Declined at t his time) Start: 01-19-2023 Adult depression screening assessment DEPRESSION SCREENING [facility] Start: 12-22-2022 End: 02-21-2023 CBC W Auto Differential panel - Blood CBC + DIFF Lab Routine Pneumonia due to influenza A virus Expected: 12/22/2022, Expires: 02/21/2023 [facility] Work Phone: Comment on above: Expected: 12/22/2022, Expires: 3 Start: 12-22-2022 End: 12-12-2023 Radiologic exam chest 2 views XR CHEST 2V FRONTAL/LAT Radiology Routine Pneumonia due to influenza A virus Expected: 12/22/2022, Expires: 12/12/2023 [facility] Work Phone: Comment on above: Expected: 12/22/2022, Expires: 4 Start: 12-17-2022 Lipid panel Lipid Screening [facility] Start: 12-17-2022 LIPID SCREEN LIPID SCREEN [facility] Start: 11-08-2022 DEPRESSION ASSESSMENT DEPRESSION ASSESSMENT [facility] Start: 09-22-2022 End: 11-22-2022 Lipid 1996 panel - Serum or Plasma LIPID PANEL BASIC Lab Routine Essential hypertension Expected: 09/22/2022, Expires: 11/22/2022 [facility] Work Phone: Comment on above: Expected: 09/22/2022, Expires: 3 Start: 09-22-2022 End: 11-22-2022 SCHEDULE LAB TESTING SCHEDULE LAB TESTING Lab Routine Expected: 09/22/2022, Expires: 11/22/2022 [facility] Work Phone: Comment on above: Expected: 09/22/2022, Expires: 3 Start: 07-09-2022 Influenza vaccination [facility] Start: 05-10-2022 End: 07-20-2022 Aspartate aminotransferase [Enzymatic activity/volume] in Serum or Plasma AST/SGOT BLD Lab Routine Dyslipidemia Expected: 05/10/2022, Expires: 07/20/2022 [facility] Work Phone: Comment on above: Expected: 05/10/2022, Expires: 2 Start: 04-21-2022 COVID-19 VACCINE (4 - Booster for Pfizer series) COVID-19 VACCINE (4 - Booster for Pfizer series) [facility] Start: 04-10-2022 End: 06-10-2022 LIPID PANEL BASIC LIPID PANEL BASIC Lab Routine Dyslipidemia Expected: 04/10/2022, Expires: 06/10/2022 [facility] Work Phone: Comment on above: Expected: 04/10/2022, Expires: 2 Start: 02-19-2022 End: 04-21-2022 Basic metabolic 2000 panel - Serum or Plasma BASIC METABOLIC PNL 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 Expected: 02/19/2022, Expires: 04/21/2022 [facility] Work Phone: Comment on above: Expected: 02/19/2022, Expires: 2 Start: 02-16-2022 COVID-19 VACCINE (4 - Booster for Pfizer series) COVID-19 VACCINE (4 - Booster for Pfizer series) [facility] Start: 02-16-2022 COVID-19 VACCINE (4 - Pfizer series) COVID-19 VACCINE (4 - Pfizer series) [facility] Start: 11-08-2021 DEPRESSION ASSESSMENT DEPRESSION ASSESSMENT [facility] Start: 05-25-2021 PROSTATE CANCER SCREENING DISCUSSION PROSTATE CANCER SCREENING DISCUSSION [facility] Start: 05-25-2021 Prostate specific antigen measurement Prostate Cancer Screening Discussion [facility] Start: 2009 SHINGRIX VACCINE (1 of 2) SHINGRIX VACCINE (1 of 2) [facility] Start: 01-26-2004 COLOGUARD (FIT-DNA) COLOGUARD (FIT-DNA) [facility] Start: 01-26-[address] COLONOGRAPHY [facility] Start: 01-26-2004 FECAL OCCULT BLOOD FECAL OCCULT BLOOD [facility] Start: 01-26-2004 Screening for malignant neoplasm of colon [facility] Start: 01-26-2004 SIGMOIDOSCOPY SIGMOIDOSCOPY [facility] Start: 1977 Anxiety Screening Anxiety Screening [facility] Start: 1977 Depression Screening Depression Screening [facility] Start: 1977 HIV SCREENING HIV SCREENING [facility] Start: 1977 HIV screening HIV Screening [facility] End: 03-02-2025 Ankle-brachial index US ANKLE BRACHIAL INDICES Radiology Routine Venous insufficiency 1 Occurrences starting 02/01/2024 until 03/02/2025 [facility] Work Phone: Comment on above: 1 Occurrences starting 02/01/2024 until 03/02/2025 BLADDER SCAN BLADDER SCAN Pro cedures Routine Benign prostatic hyperplasia with urinary retention Ordered: 05/22/2024 [facility] Work Phone: Comment on above: Ordered: 05/22/2024 End: 05-23-2025 CT Head WO contrast CT BRAIN WO IVCON Radiology Routine SDH (subdural hematoma) (HCC) 1 Occurrences starting 04/23/2024 until 05/23/2025 [facility] Work Phone: Comment on above: 1 Occurrences starting 04/23/2024 until 05/23/2025 End: 06-08-2025 CT Head WO contrast CT BRAIN WO IVCON Radiology Routine Traumatic subdural hematoma with loss of consciousness, sequela (HCC) Intracranial meningioma (HCC) 1 Occurrences starting 05/09/2024 until 06/08/2025 [facility] Work Phone: Comment on above: 1 Occurrences starting 05/09/2024 until 06/08/2025 CT Head WO contrast CT BRAIN WO IVCON Radiology Routine SDH (subdural hematoma) (HCC) 05/09/2024 1:38 PM EDT [facility] Work Phone: End: 06-22-2025 CT Head WO contrast CT BRAIN WO IVCON Radiology Routine Traumatic subdural hematoma with loss of consciousness, sequela (HCC) Intracranial meningioma (HCC) 1 Occurrences starting 05/23/2024 until 06/22/2025 [facility] Work Phone: Comment on above: 1 Occurrences starting 05/23/2024 until 06/22/2025 CT Head WO contrast CT BRAIN WO IVCON Radiology Routine Traumatic subdural hematoma with loss of consciousness, sequela (HCC) Intracranial meningioma (HCC) 05/23/2024 10:58 AM EDT [facility] Work Phone: CT Head WO contrast CT BRAIN WO IVCON Radiology Routine Traumatic subdural hematoma with loss of consciousness, sequela (HCC) Intracranial meningioma (HCC) 06/20/2024 10:30 AM EDT [facility] Work Phone: End: 11-12-2025 CT Head WO contrast CT BRAIN WO IVCON Radiology Routine Traumatic subdural hematoma with loss of consciousness, sequela (HCC) Intracranial meningioma (HCC) 1 Occurrences starting 10/13/2024 until 11/12/2025 [facility] Work Phone: Comment on above: 1 Occurrences starting 10/13/2024 until 11/12/2025 CT Head WO contrast CT BRAIN WO IVCON Radiology Routine Traumatic subdural hematoma with loss of consciousness, sequela (HCC) Intracranial meningioma (HCC) 10/27/2024 3:00 PM [facility] Work Phone: End: 05-04-2025 ECG COMPLETE ECG COMPLETE ECG Routine Atrial flutter, unspecified type (HCC) 1 Occurrences starting 05/04/2024 until 05/04/2025 [facility] Work Phone: Comment on above: 1 Occurrences starting 05/04/2024 until 05/04/2025 End: 05-09-2025 ECG COMPLETE ECG COMPLETE ECG Routine Atrial flutter, unspecified type (HCC) Subdural hematoma (HCC) History of ischemic stroke 1 Occurrences starting 05/09/2024 until 05/09/2025 [facility] Work Phone: Comment on above: 1 Occurrences starting 05/09/2024 until 05/09/2025 End: 01-20-2026 ECG COMPLETE ECG COMPLETE ECG Routine 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 1 Occurrences starting 01/20/2025 until 01/20/2026 [facility] Work Phone: Comment on above: 1 Occurrences starting 01/20/2025 until 01/20/2026 End: 05-08-2026 ECG COMPLETE ECG COMPLETE ECG Routine Atrial flutter, unspecified type (HCC) 1 Occurrences starting 05/08/2025 until 05/08/2026 [facility] Work Phone: Comment on above: 1 Occurrences starting 05/08/2025 until 05/08/2026 End: 05-14-2025 ECG COMPLETE ECG COMPLETE ECG Routine 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 1 Occurrences starting 05/14/2025 until 05/14/2025 [facility] Work Phone: Comment on above: 1 Occurrences starting 05/14/2025 until 05/14/2025 End: 11-26-2025 MR Brain WO and W contrast IV MRI BRAIN WO/W IVCON Radiology Routine Intracranial meningioma (HCC) Benign neoplasm of meninges (HCC) 1 Occurrences starting 10/27/2024 until 11/26/2025 [facility] Work Phone: Comment on above: 1 Occurrences starting 10/27/2024 until 11/26/2025 MR Brain WO and W contrast IV MRI BRAIN WO/W IVCON Radiology Routine Intracranial meningioma (HCC) Benign neoplasm of meninges (HCC) 01/16/2025 10:47 AM EDT [facility] Work Phone: End: 02-17-2026 MR Brain WO and W contrast IV MRI BRAIN WO/W IVCON Radiology Routine Intracranial meningioma (HCC) Traumatic subdural hematoma with loss of consciousness, sequela (HCC) 1 Occurrences starting 01/19/2025 until 02/17/2026 [facility] Work Phone: Comment on above: 1 Occurrences starting 01/19/2025 until 02/17/2026 End: 07-12-2025 MR Brain WO contrast MRI BRAIN WO IVCON Radiology Routine Silent micro-hemorrhage of brain (HCC) 1 Occurrences starting 06/12/2024 until 07/12/2025 [facility] Work Phone: Comment on above: 1 Occurrences starting 06/12/2024 until 07/12/2025 MR Brain WO contrast MRI BRAIN W O IVCON Radiology Routine Silent micro-hemorrhage of brain (HCC) 10/02/2024 8:50 AM EST [facility] Work Phone: End: 11-28-2023 Mri brain brain stem w/o contrast material MRI BRAIN WO IVCON Radiology Routine Parkinsonism, unspecified Parkinsonism type (HCC) 1 Occurrences starting 10/29/2022 until 11/28/2023 [facility] Work Phone: Comment on above: 1 Occurrences starting 10/29/2022 until 11/28/2023 End: 10-29-2023 Polysomnogram POLYSOMNOGRAM (PSG) Procedures Routine Parkinsonism, unspecified Parkinsonism type (HCC) HARJEET (obstructive sleep apnea) 1 Occurrences starting 10/29/2022 until 10/29/2023 [facility] Work Phone: Comment on above: 1 Occurrences starting 10/29/2022 until 10/29/2023 End: 02-17-2026 US Hip - left US HIP LEFT Radiology Routine Soft tissue mass 1 Occurrences starting 01/18/2025 until 02/17/2026 [facility] Work Phone: Comment on above: 1 Occurrences starting 01/18/2025 until 02/17/2026 End: 10-18-2025 US Thyroid gland US THYROID/PARATHYROID Radiology Routine Thyroid nodule 1 Occurrences starting 09/18/2024 until 10/18/2025 [facility] Work Phone: Comment on above: 1 Occurrences starting 09/18/2024 until 10/18/2025 [facility] Immunizations Immunization Date Immunization Notes Care Provider Ping gruber 08-16-2024 COVID-19 vaccine, ag e 12+ yr (PFIZER-Ghostery COMIRNAT) Karthik Mastrucci ELECTRONIC TESTER.[employer] Work Phone: [facility] 08-08-2024 influenza, seasonal, injectable, preservative free Karthik Mastrucci ELECTRONIC TESTER.[employer] Work Phone: [facility] 08-08-2024 influenza virus vaccine, unspecified formulation Orly Valencia MD Work Phone: [facility] 08-01-2024 respiratory syncytia l virus (RSV) vaccine, bivalent (ABRYSVO) Karthik Mastrucci ELECTRONIC TESTER.[employer] Work Phone: [facility] 02-01-2024 pneumococcal Conjugate, unspecified formulation Karthik Mastrucci ELECTRONIC TESTER.[facility] Work Phone: [facility] Work Phone: 02-01-2024 pneumococcal conjuga te (PCV20) vaccine, 20 valent (PREVNAR 20) Karthik Mastrucci ELECTRONIC TESTER.[employer]ER Work Phone: [facility] 09-28-2022 influenza, injectabl e, quadrivalent, preservative free Karthik Mastrucci ELECTRONIC TESTER.[employer] Work Phone: [facility] Work Phone: 09-28-2022 influenza virus vaccine, unspecified formulation Karthik Mastrucci ELECTRONIC TESTER.[employer] Work Phone: [facility] 12-22-2021 COVID-19 vaccine, ag e 12+ yr (PFIZER-BIONTECH - [facility]) Paul Lorenz MD Work Phone: [facility] Work Phone: 03-08-2021 COVID-19 vaccine, ag e 12+ yr (PFIZER-BIONTECH - PURPLE TOP) Paul Lorenz MD Work Phone: [facility] 02-15-2021 COVID-19 vaccine, ag e 12+ yr (PFIZER-BIONTECH - PURPLE TOP) Paul Lorenz MD Work Phone: [facility] 07-02-2020 tetanus toxoid, reduced diphtheria toxoid, and acellular pertussis vaccine, adsorbed Paul Lorenz MD Work Phone: [facility] Payers Date Payer Category Payer Medicaid [id number] 2024 Unknown [id number] 2024 Unknown [facility] MEDIC[facility] ADVANTAGE O [id number] 2024-Present [phone] [address] [place] [address] O [id number] 2024 Medicare [id number] 2024 Self-pay 2024 Medicare (Managed Care) [id number]. [id number] 2024 Medicare [id number] 2024 Medicare [id number] 2019 Medicaid [employer] [facility] [place] [id number] 2019-Present [phone] [address] [address] [place] [address] Medicaid [id number] 2019 Medicaid [id number] 2019 Medicaid [id number] Unknown [id number] Unknown [id number] Unknown [id number] Unknown [id number] Unknown [id number] 462 Unknown [id number] 462 Unknown [id number] 462 Unknown [id number] 462 Social History Date Type Detail Facility Start: 05-25-2016 End: 10-21-2022 Tobacco smoking status NHIS Never smoked tobacco [facility] Start: 05-25-2016 End: 10-21-2022 Tobacco use and exposure Smokeless tobacco non-user [facility] Start: 02-19-2022 End: 04-10-2022 Alcohol intake Current drinker of alcohol (finding) [facility] Start: 12-16-2017 History SDOH Alcohol Comment occ. Maybe one drink per week. [facility] Start: 1960 Sex Assigned At Male C [facility] Start: 02-09-2022 End: 09-02-2022 Exposure to SARS-CoV-2 (event) Not sure [facility] Start: 10-30-2022 End: 06-21-2025 Alcohol intake Ex-drinker (finding) [facility] Start: 10-30-2022 History SDOH Financial 5 [facility] Start: 10-30-2022 History SDOH Food Worry 1 [facility] Start: 10-30-2022 History SDOH Transpo rt Med 2 [facility] Start: 03-02-2023 End: 03-26-2024 History of Social function [facility] Work Phone: Start: 03-02-2023 End: 02-01-2024 Tobacco use panel [facility] Work Phone: Start: 10-10-2015 How hard is it for y ou to pay for the very basics like food, housing, medical care, and heating Not hard at all [facility] Work Phone: (I/We) worried whericarda er (my/our) food would run out before (I/we) got money to buy more. Never true [facility] Work Phone: In the past 12 month s, was there a time when you were not able to pay the mortgage or rent on time? No [facility] Work Phone: Start: 01-29-2021 Gender identity Identifies as male gender (finding) [facility] Start: 01-29-2021 Sexual orientation Homosexual (findi ng) [facility] Work Phone: Start: 02-06-2025 End: 02-23-2025 Sex Male (finding) [facility] Medical Equipment Procedure Code Equipment Code Equipment Origin al Text Equipment Identifier Dates Screw Lcp 3.5mm Full Thread Stainless Steel 14mm Bone Stardrive Recess Self - [id number] Start: 09-14-2019 Screw Lcp 3.5mm Full Thread Stainless Steel 16mm Bone Stardrive Recess Self - [id number] Start: 09-14-2019 Screw Lc-Dcp Dcp 3.5mm 6mm Full Thread Stainless Steel 16mm Bone Self - [id number] Start: 09-14-2019 Scrw Ond Mandib Ul Lp Df 1.5x4 [id number] Start: 04-16-2024 L1 Neuro [place] [facility] Cov Ultraone Contour W/Tab Scrw 6 Hl 18mm D T0.35mm Ti - [id number] Start: 04-16-2024 Goals Date Patient Goal Desired Activity /State Personal health goal Functional Status Date Assessment Result Facility 09-28-2024 Are you deaf, or do you have serious difficulty hearing No 09/28/2024 12:32 PM Ailyn Darby, ARNOLD No [facility] 09-28-2024 Are you blind, or do you have serious difficulty seeing, even when wearing glasses Yes 09/28/2024 12:32 PM Ailyn Darby, ARNOLD Yes [facility] 09-28-2024 Do you have serious difficulty walking or climbing stairs Yes 09/28/2024 12:32 PM Ailyn Darby, ARNOLD Yes [facility] 09-28-2024 Because of a physica l, mental, or emotional condition, do you have difficulty doing errands alone such as visiting a physician's office or shopping Yes 09/28/2024 12:32 PM Ailyn Darby, ARNOLD Yes [facility] 06-07-2024 Do you have difficul ty dressing or bathing Yes 06/07/2024 1:58 PM EDT Paul Harkins RN Yes [facility] Mental Status Date Assessment Result Facility 09-28-2024 Because of a physica l, mental, or emotional condition, do you have serious difficulty concentrating, remembering, or making decisions Yes 09/28/2024 12:32 PM Ailyn Darby, ARNOLD Yes [facility] Clinical Notes 09-13-2019 to 06-21-2025 Patient Anya Sam APRN.[facility] - 06/21/2025 1:00 PM EDTPatient Faith Astorga APRN.[facility] - 06/11/2025 9:02 AM Femi Hunter RN - 05/08/2025 11:27 AM EDT Note Date & Type Note Facility 06-21-2025 Anya Nieto APRN.[facility] - 06/21/2025 1:12 PM EDT Images from the original note were not included. Regarding your visit with Nurse Practitioner Anya Huang today at the [facility] Cerebrovascular Center we discussed the following: Impression: [...] call if you have any questions Anya Huang, [facility] [place] Nurse Practitioner [place], [place] [address] Office: [phone] Appointments: [phone] Stroke Signs and Symptoms: *Stroke is a [...] diet rich in fruits and vegetables (https://www.nhlbi.nih.gov/educati on/grst-ppfhxe-pygz) - Consider Mediterranean diet supplemented with nuts [...] of an exercise program by a health lawn caretaker such as a physical therapist or cardiac [...] for their cardiovascular health Adapted from the [place] Heart Association/[place] Stroke Association: 2020 Guideline for the Prevention of Stroke in Patients With Stroke and Transient Ischemic Attack documented in this encounter [facility] 06-21-2025 History of Present illness Narrative CEREBROVASCULAR CENTER Established Visit Recording using Accumetrics software for draft documentation of the visit was discussed with the patient/authorized brand representative; all questions welcomed and answered. Patient/authorized brand representative agreed to proceed Consultation is requested by: No referring provider defined for this encounter. PCP: [place] [address] CEREBROVASCULAR HISTORY Alfonzo Simon is a 64 year old left-handed male presenting for hospital discharge follow up. Admitted to [facility] 04/15-04/25/24. From discharge summary Mr. Alfonzo Simon was directly admitted to [facility] on 04/15/2024 for treatment of injuries [...] discharge. Mr. Simon would be discharged to [facility] rehab in stable condition on 04/25/2024. He [...] new symptoms or clinical events -living at [facility] -prior to this lived at [...] any new symptoms or clinical events -at [facility] - thinks will have to leave soon [...] any new symptoms or clinical events -at [facility] -left side getting a bit stronger, cannot [...] 06/21/25 Atrial Fibrillation: - Recent follow-up with braille translator; continuing Eliquis. - Cardiology appointment scheduled in September with Dr. Valencia to discuss SAMINA closure. - Previous appointment in [place] was canceled due to distance. Hypertension: - Blood pressure monitored daily at [facility]. - Systolic readings typically range from 130-140 [...] Ischemic or TIA: Ischemic Stroke TOAST Mechanism ([facility]-MODIFIED): Cardioembolism Cardioembolism: Atrial fibrillation/flutter Intracranial Hemorrhage: Subarachnoid and Subdural Hematoma Subarachnoid Hemorrhage: Trauma Modified [place] Score: Score: 3 NIH Stroke Scale: LOC: [...] which included preparing to see the patient, [id number] patient care, completing clinical documentation, obtaining and/or reviewing separately obtained history, performing a medically appropriate examination, counseling and educating the patient/family/caregiver, and care coordination (not separately reported) SIGNATURE Anya Huang APRN.[facility] No referring provider defined for this encounter. Karthik Holliday [employer] [place] [address] documented in this encounter [facility] 06-21-2025 Note HNO ID: [id number] Author: ANYA HUANG APRN.CNP Service: ? Author Type: Nurse Practitioner Type: Progress Notes Filed: 06/21/2025 15:32 Note Text: CEREBROVASCULAR CENTER Established Visit Recording using Accumetrics software for draft documentation of the visit was discussed with the patient/authorized brand representative; all questions welcomed and answered. Patient/authorized brand representative agreed to proceed Consultation is requested by: No referring provider defined for this encounter. PCP: Karthik Holliday [employer] [place] [address] CEREBROVASCULAR HISTORY Alfonzo Simon is a 64 year old left-handed male presenting for hospital discharge follow up. Admitted to [facility] 04/15-04/25/24. From discharge summary Mr. Alfonzo Simon was directly admitted to [facility] on 04/15/2024 for treatment of injuries [...] discharge. Mr. Simon would be discharged to [facility] rehab in stable condition on 04/25/2024. He [...] new symptoms or clinical events -living at [facility] -prior to this lived at [...] any new symptoms or clinical events -at [facility] SNF - thinks will have to leave soon because of insurance, would be sent home with home care -prior to this lived at home with husb (more content not included)... [facility] 06-11-2025 Instructions Faith Moore APRN.CNP - 06/11/2025 9:09 AM EDT Continue Eliquis documented in this encounter [facility] 06-11-2025 Note HNO ID: [id number] Author: FAITH MOORE APRN.CNP Service: ? Author Type: Nurse Practitioner [...] anticoagulation duration. He is currently residing at [facility] and is here in a wheelchair. [...] yet. He has an appointment with a retail general manager in [place] due to transport issues to [place]. He is otherwise feeling well. Discussed staying [...] magnesium, aluminum hydro (more content not included)... [facility] 06-11-2025 History of Present illness Narrative [...] anticoagulation duration. He is currently residing at [facility] facility and is here in a wheelchair. [...] yet. He has an appointment with a retail general manager in [place] due to transport issues to [place]. He is otherwise feeling well. Discussed staying [...] content normal. Assessment and Plan: Mr. 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 -continue Eliquis as he is tolerating and he still has not seen cardiology. In addition, he is still at skilled facility and in a wheelchair. -Coag work up negative. -continue to follow closely with neuro Faith Moore APRN.[employer] [employer] HPI and A/P documentation from my previous visit of 12/12/24 was copied and pasted, documentation has been reviewed and edited as necessary for today's visit. Medical Decision Making: Problems: Low: Stable chronic illness Risk: Moderate: Drug management and Moderate risk from testing/treatment Medical Decision Making Level: 3 - Low documented in this encounter [facility] 05-08-2025 Note HNO ID: [id number] Author: FEMI ARGUETA RN Service: ? Author Type: Registered Nurse Type: Progress Notes Filed: 05/08/2025 11:27 Note Text: EKG [facility] 05-08-2025 History of Present illness Narrative EKG documented in this encounter [facility] 05-08-2025 Telephone encounter Note Spoke to the patient stating they are [facility] Scheduled appt for EP confirmed date, time and location. Rosibel Esquivel [facility] 05-08-2025 Miscellaneous Notes Spoke to the patient stating they are wanting a DEBBI from [facility] to [facility]. Scheduled appt for EP confirmed date, time and location. Rosibel Esquivel documented in this encounter [facility] 03-14-2025 Note HNO ID: [id number] Author: MADINA AMADOR RN Service: ? Author Type: Registered Nurse Type: Progress Notes Filed: 03/14/2025 11:11 Note Text: Spoke with social work at [facility], patient is now a permanent resident under the care of [facility] physician, Dr. Violette Abdi MD. Dr. Violette Abdi MD will manage all patient care hereafter (including refilling prescriptions). [facility] chart updated to reflect PCP change. Madina Amador RN [facility] 03-14-2025 History of Present illness Narrative Spoke with social work at [facility], patient is now a permanent resident under the care of [facility] physician, Dr. Violette Abdi MD. Dr. Violette Abdi MD will manage all patient care hereafter (including refilling prescriptions). [facility] chart updated to reflect PCP change. Madina Amador RN documented in this encounter [facility] 03-14-2025 Note Patient Outreach (AG ACM) ALFONZO SIMON ([id number]) 1960 M Date Time Provider Department 03/14/25 MADINA AMADOR [facility] During your visit today, we recorded the following information about you: Madina Amador RN 03/14/2025 11:11 AM Signed Spoke with social work at [facility], patient is now a permanent resident under [...] for Visit: 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 Care [4074] Cmt: SNF update - [facility] resident Prescriptions as of 03/14/2025 - magnesium [...] Encounter Status:Closed by MADINA AMADOR on 03/14/25 [facility] 02-22-2025 Instructions Anya Huang, FELIX.[employer] - 02/22/2025 1:38 PM EDT Images from the original note were not included. Regarding your visit with Nurse Practitioner Anya Huang today at the [facility] Cerebrovascular Center we discussed the following: Impression: [...] if you have any questions Anya Huang [facility] [place] Nurse Practitioner [place], [place] [address] Office: [phone] Appointments: [phone] Stroke Signs and Symptoms: *Stroke is a [...] diet rich in fruits and vegetables (https://www.nhlbi.nih.gov/educati on/jvmz-fteedg-xncr) - Consider Mediterranean diet supplemented with nuts [...] of an exercise program by a health lawn caretaker such as a physical therapist or cardiac [...] for their cardiovascular health Adapted from the [place] Heart Association/[place] Stroke Association: 202 Guideline for the Prevention of Stroke in Patients With Stroke and Transient Ischemic Attack documented in this encounter [facility] 02-22-2025 History of Present illness Narrative CEREBROVASCULAR CENTER Established Visit Consultation is requested by: No referring provider defined for this encounter. PCP: Karthik Holliday [address] [place] [address] CEREBROVASCULAR HISTORY Alfonzo Simon is a 64 year old left-handed male presenting for hospital discharge follow up. Admitted to [facility] 04/15-04/25/24. From discharge summary Mr. Alfonzo Simon was directly admitted to [facility] on 04/15/2024 for treatment of injuries [...] discharge. Mr. Simon would be discharged to [facility] rehab in stable condition on 04/25/2024. He [...] new symptoms or clinical events -living at [facility] -prior to this lived at [...] any new symptoms or clinical events -at [facility] SNF - thinks will have [...] any new symptoms or clinical events -at [facility] -left side getting a bit stronger, cannot [...] drift LUE Sensation: Intact light touch Coordination: Wvykyx-ht-tvsj without dysmetria on right Gait: deferred LABS [...] which included preparing to see the patient, rcpz-qh-hiow patient care, completing clinical documentation, obtaining and/or reviewing separately obtained history, performing a medically appropriate examination, counseling and educating the patient/family/caregiver, independently interpreting results (not separately reported), communicating results to the patient/family/caregiver, and care coordination (not separately reported) SIGNATURE Anya Huang APRN.CNP CC No referring provider defined for this encounter. Karthikden Holliday [employer] [place] [phone] documented in this encounter [facility] 02-22-2025 Note HNO ID: [id number] Author: ANYA HUANG APRN.CNP Service: ? Author Type: Nurse Practitioner Type: Progress Notes Filed: 02/22/2025 16:48 Note Text: CEREBROVASCULAR CENTER Established Visit Consultation is requested by: No referring provider defined for this encounter. [facility] [place] [phone] CEREBROVASCULAR HISTORY Alfonzo Simon is a 64 year old left-handed male presenting for hospital discharge follow up. Admitted to [facility] 04/15-04/25/24. From discharge summary Mr. Alfonzo Simon was directly admitted to [facility] on 04/15/2024 for treatment of injuries [...] discharge. Mr. Simon would be discharged to [facility] rehab in stable condition on 04/25/2024. He [...] new symptoms or clinical events -living at [facility] -prior to this lived at [...] any new symptoms or clinical events -at [facility] SNF - thinks will have [...] essentially back t (more content not included)... [facility] 01-19-2025 History of Present illness Narrative NEUROSURGERY FOLLOW UP OFFICE NOTE Dr. Leonard Patel MD, FACS Date of visit: January 19, 2025 Patient Name: Mr.Kevin Myrna Simon Date of : 1960 Current Age: [age] year old Sex: male MRN/E# [id number] Last Office Visit: 10/27/2024 CHIEF COMPLAINT: Patient presents with: Established Patient SUBJECTIVE: The patient presents as a follow-up with imaging (MRI B) for evaluation. This is a 64 year old male with a PMHx of BPH, HTN, morbid obesity, parkinsonism and sleep apnea who was seen for consult at [facility] on 04/16/24 after transfer from [place] ED for a SAH. Per patients , [...] wheelchair as he was still residing at [facility] in [place]. He reported that he was doing well . He denied any headache, visual changes, speech deficits, seizure activity, new motor or sensory deficits. CT was reviewed and showed almost complete resolution of the fluid with a very small area of residual. 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 Otherwise he should return in January 2025 with an MRI be for evaluation of any residual or recurrent tumor. Today he states he is overall doing better. He continues to reside in a [facility], [facility] in [place]. He continues to work with PT. He has resumed Eliquis and is tolerating it well. He presents for image review, evaluation and plan of care. SYMPTOMS: Gait instability, mild left arm weakness PREVIOUS CONSERVATIVE TREATMENTS: custodial facility PT/OT SURGICAL RISK: Smoker: Never Diabetic: No Anticoagulants / Antiplatelets: Eliquis 5 mg Occupation: NA PREVIOUS NEUROSURGERY: SURGERY #1: Right frontal craniotomy for evacuation of SDH and excision of tumor on 04/16/[address] Ptael. FINAL DIAGNOSIS A. Brain tumor, excision: - [...] OBJECTIVE: BP 144/82 Pulse 62 Ht 6' 0 (1.83m) Wt 288 lb (130.6kg) SpO2 97% [...] (RADIOLOGY PROCEDURE) - NOT ON MAR Leonard Patel MD FOLLOW UP: Return in about 1 year (around 01/19/2026) for review of MRI. Please Note: This note has been partially generated using [employer], a speech recognition software program, and may contain errors including punctuation, grammar, spelling, gender, and inappropriate words or phrases that pertain to the system. documented in this encounter [facility] 01-19-2025 Note HNO ID: [id number] Author: LEONARD PATEL MD Service: ? Author Type: Physician Type: Progress Notes Filed: 01/19/2025 10:31 Note Text: NEUROSURGERY FOLLOW UP OFFICE NOTE Dr. Leonard Patel MD, [facility] Date of visit: January 19, 2025 Patient Name: Mr.Kevin Myrna Simon Date of : 1960 Current Age: [age] year old Sex: male MRN/E# [id number] Last Office Visit: 10/27/2024 CHIEF COMPLAINT: Patient presents with: Established Patient SUBJECTIVE: The patient presents as a follow-up with imaging (MRI B) for evaluation. This is a 64 year old male with a PMHx of BPH, HTN, morbid obesity, parkinsonism and sleep apnea who was seen for consult at [facility] on 04/16/24 after transfer from [facility] for a SAH. Per patients , [...] wheelchair as he was still residing at [facility] in [place]. He reported that he was doing well . He denied any headache, visual changes, speech deficits, seizure activity, new motor or sensory deficits. CT was reviewed and showed almost complete resolution of the fluid with a very small area of residual. 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 Otherwise he should return in January 2025 with an MRI be for evaluation of any residual or recurrent tumor. Today he states he is overall doing better. He continues to reside in a Retirement, [employer] in [place]. He continues to work with PT. He has resumed Eliquis and is tolerating it well. He presents for image review, evaluation and plan of care. SYMPTOMS: Gait instability, mild left arm weakness PREVIOUS CONSERVATIVE TREATMENTS: custodial facility PT/OT SURGICAL RISK: Smoker: Never Diabetic: [...] Take 1 tab (more content not included)... [facility] 01-18-2025 Note Addended by: KARTHIK NICHOLAS on: 01/18/2025 04:33 PM Modules accepted: Orders [facility] 01-18-2025 Miscellaneous Notes Addended by: KARTHIK HOLLIDAY on: 01/18/2025 04:33 PM Modules accepted: Orders documented in this encounter [facility] 01-16-2025 History of Present illness Narrative Radiology [...] PATIENT PRESENTS WITH AN IMPLANTABLE OR ATTACHED SALES REPRESENTATIVE PUBLIC UTILITIES: No ALLERGIES: Reviewed and unchanged CONTRAST ALLERGY: NO. EXAM: MRI - CONTRAST TYPE: GROUP II PERIPHERAL IV DATA: Ambulatory: A peripheral IV was started in the Right antecubital site with a Angio cath: 22 gauge. RADIOLOGY DEPARTMENT: MR; Exam(s) Completed: Head: Routine Brain SIGNATURE: FRANCOIS Najera PATIENT NAME: Alfonzo Simon DATE: January 16, 2025 TIME: 10:26 AM documented in this encounter [facility] 01-16-2025 Note HNO ID: [id number] Author: WALDO FERRARA MRI Tech Service: Radiology [...] PATIENT PRESENTS WITH AN IMPLANTABLE OR ATTACHED SALES REPRESENTATIVE PUBLIC UTILITIES: No ALLERGIES: Reviewed and unchanged CONTRAST ALLERGY: NO. EXAM: MRI - CONTRAST TYPE: GROUP II PERIPHERAL IV DATA: Ambulatory: A peripheral IV was started in the Right antecubital site with a Angio cath: 22 gauge. RADIOLOGY DEPARTMENT: MR; Exam(s) Completed: Head: Routine Brain SIGNATURE: FRANCOIS Najera PATIENT NAME: Alfonzo Simon DATE: January 16, 2025 TIME: 10:26 AM [facility] 12-12-2024 Note HNO ID: [id number] Author: FAITH MOORE APRN.CANARY RAISER Service: ? Author Type: Nurse Practitioner Type: [...] anticoagulation duration. [facility] and is here in a wheelchair. [...] WBC 8.07 09/09 (more content not included)... [facility] 12-12-2024 History of Present illness Narrative [...] anticoagulation duration. He is [facility] and is here in a wheelchair. [...] Discussed his case with one of our braille translator and they agree with plan documented in this encounter [facility] 12-01-2024 Telephone encounter Note Please let Alfonzo know that they would not cover the increase in Bupropion and therefore I sent Lexapro 10 mg to be taken with the 300 mg of bupropion. Have him take half a tablet for the first 14 days then he can increase to the full 10 mg tablet. Karthik Holliday APRN.CNP December 01, 2024 9:03 AM [facility] 12-01-2024 Miscellaneous Notes Please let Alfonzo know [...] pharmacy. Thank you documented in this encounter [facility] 12-01-2024 Telephone encounter Note Bupropion xl 450 mg has been denied by insurance. Would like alternative sent to pharmacy. Thank you [facility] 11-29-2024 Telephone encounter Note PA done for BuPropion XL 450mg Denied FYI [facility] 11-29-2024 Miscellaneous Notes PA done for BuPropion XL 450mg Denied FYI documented in this encounter [facility] 11-28-2024 Note HNO ID: [id number] Author: KARTHIK HOLLIDAY APRN.CNP Service: ? Author Type: Nurse Practitioner Type: Progress Notes Filed: 11/28/2024 08:56 Note Text: VIRTUAL VISIT PROGRESS NOTE This is a virtual visit using [employer] Zoom Video Visit. It required patient-provider interaction for the medical decision making as documented below. I have communicated my name and active licensure. The patient's identity and physical location were verified at the time of this visit. Either the patient or their legal brand representative has been informed of the risks [...] which included preparing to see the patient, grut-kz-wvyu patient care, completing clinical documentation, obtaining and/or reviewing separately obtained history, performing a medically appropriate examination, counseling and educating the patient/family/caregiver, ordering medications, tests, or procedures, and communicating with other HCPs (not separately reported) Karthik Holliday APRN.[facility] 11-28-2024 History of Present illness Narrative VIRTUAL VISIT PROGRESS NOTE This is a virtual visit using [employer] Video Visit. It required patient-provider interaction for the medical decision making as documented below. I have communicated my name and active licensure. The patient's identity and physical location were verified at the time of this visit. Either the patient or their legal brand representative has been informed of the risks [...] which included preparing to see the patient, epof-gm-cokt patient care, completing clinical documentation, obtaining and/or reviewing separately obtained history, performing a medically appropriate examination, counseling and educating the patient/family/caregiver, ordering medications, tests, or procedures, and communicating with other HCPs (not separately reported) Karthik Holliday APRN.CHAN documented in this encounter [facility] 10-27-2024 History of Present illness Narrative NEUROSURGERY FOLLOW UP OFFICE NOTE Dr. Leonard Patel MD, FACS Date of visit: October 27, 2024 Patient Name: Mr.Kevin Myrna Simon Date of : 1960 Current Age: [age] year old Sex: male MRN/E# [id number] Last Office Visit: 10/13/2024 CHIEF COMPLAINT: No chief complaint on file. SUBJECTIVE: The patient presents as a follow up with CT WO imaging (brain) for evaluation. This is a 64 year old male with a PMHx of BPH, HTN, morbid obesity, parkinsonism and sleep apnea who was seen for consult at [facility] on 04/16/24 after transfer from [facility] for a SAH. Per patients , [...] to do well. He was residing in [facility] and participating in PT/OT/ST. He was moving [...] for possible pseudomeningocele or superimposed infection. [facility] was contacted with recommendation for the [...] in a wheelchair. [facility]. Denies headaches or blurred vision. He presents for image review, evaluation and plan of care. SYMPTOMS: None PREVIOUS CONSERVATIVE TREATMENTS: custodial facility PT/OT SURGICAL RISK: Smoker: Never Diabetic: [...] Eliquis for his cardiac condition and his retail general manager thinks he should be on it I [...] This note has been partially generated using [employer], a speech recognition software program, and may contain errors including punctuation, grammar, spelling, gender, and inappropriate words or phrases that pertain to the system. documented in this encounter [facility] 10-27-2024 Note HNO ID: [id number] Author: LEONARD PATEL MD Service: ? Author Type: Physician Type: Progress Notes Filed: 10/27/2024 15:13 Note Text: NEUROSURGERY FOLLOW UP OFFICE NOTE Dr. Leonard Patel MD, [facility] Date of visit: October 27, 2024 Patient Name: Mr.Kevin Myrna Simon Date of : 1960 Current Age: [age] year old Sex: male MRN/E# [id number] Last Office Visit: 10/13/2024 CHIEF COMPLAINT: No chief complaint on file. SUBJECTIVE: The patient presents as a follow up with CT WO imaging (brain) for evaluation. This is a 64 year old male with a PMHx of BPH, HTN, morbid obesity, parkinsonism and sleep apnea who was seen for consult at [facility] on 04/16/24 after transfer from [facility] for a SAH. Per patients , [...] to do well. He was residing in [facility] and participating in PT/OT/ST. He was moving [...] for possible pseudomeningocele or superimposed infection. [facility] was contacted with recommendation for the [...] in a wheelchair. He is currently [facility]. Denies headaches or blurred vision. He presents for image review, evaluation and plan of care. SYMPTOMS: None PREVIOUS CONSERVATIVE TREATMENTS: custodial facility PT/OT SURGICAL RISK: Smoker: Never Diabetic: [...] (HCC) Parkinsonism (H (more content not included)... [facility] 10-26-2024 Telephone encounter Note Patient facility called in and wanted to verify patient did not have a co pay due tomorrow. I looked at the [facility] CT and follow up and the balance under co pay said 0. I informed facility it stated 0 due [facility] 10-26-2024 Miscellaneous Notes Patient facility called in and wanted to verify patient did not have a co pay due tomorrow. I looked at the [facility] CT and follow up and the balance under co pay said 0. I informed facility it stated 0 due documented in this encounter [facility] 10-26-2024 Telephone encounter Note Submitted through portal Consult to Hematology/Oncology #[id number], to be scheduled at [facility] dh [facility] 10-26-2024 Miscellaneous Notes Submitted through portal Consult to Hematology/Oncology #[id number], to be scheduled at [facility] dh documented in this encounter [facility] 10-26-2024 Instructions Anya Huang, FELIX.CANARY RAISER - 10/26/2024 11:00 AM EST Images from the original note were not included. Regarding your visit with Nurse Practitioner Anya Huang today at the [facility] we discussed the following: Impression: [...] call if you have any questions Anya Huang, [facility] Cerebrovascular [place] Nurse Practitioner [place], [place] [address] Office: [phone] Appointments: [phone] Stroke Signs and Symptoms: *Stroke is a [...] diet rich in fruits and vegetables (https://www.nhlbi.nih.gov/educati on/zgwb-zaumnv-aogw) - Consider Mediterranean diet supplemented with nuts [...] of an exercise program by a health lawn caretaker such as a physical therapist or cardiac [...] for their cardiovascular health Adapted from the [place] Heart Association/[place] Stroke Association: 202 Guideline for the Prevention of Stroke in Patients With Stroke and Transient Ischemic Attack documented in this encounter [facility] 10-26-2024 History of Present illness Narrative [facility] CENTER Established Visit Consultation is requested by: No referring provider defined for this encounter. PCP: [place] [address] CEREBROVASCULAR HISTORY Alfonzo Simon is a 64 year old left-handed male presenting for hospital discharge follow up. Admitted to [facility] 04/15-04/25/24. From discharge summary Mr. Alfonzo Simon was directly admitted to [facility] on 04/15/2024 for treatment of injuries [...] discharge. Mr. Simon would be discharged to [facility] rehab in stable condition on 04/25/2024. He [...] new symptoms or clinical events -living at [facility] -prior to this lived at [...] any new symptoms or clinical events -at [facility] SNF - thinks will have [...] drift LUE Sensation: Intact light touch Coordination: Madaxl-ev-vpoy without dysmetria on right Gait: deferred LABS [...] which included preparing to see the patient, vank-ow-wlio patient care, completing clinical documentation, obtaining and/or reviewing separately obtained history, performing a medically appropriate examination, counseling and educating the patient/family/caregiver, communicating with other HCPs (not separately reported), independently interpreting results (not separately reported), communicating results to the patient/family/caregiver, and care coordination (not separately reported) SIGNATURE Anya Huang APRN.CANARY RAISER CC No referring provider defined for this encounter. Karthik Holliday [address] [place] [address] documented in this encounter [facility] 10-26-2024 Note HNO ID: [id number] Author: ANYA HUANG APRN.CHAN Service: ? Author Type: Nurse Practitioner Type: Progress Notes Filed: 10/26/2024 11:47 Note Text: [facility]EREBROVASCULAR CENTER Established Visit Consultation is requested by: No referring provider defined for this encounter. PCP: Karthik Holliday [address] [place] [address] CEREBROVASCULAR HISTORY Alfonzo Simon is a 64 year old left-handed male presenting for hospital discharge follow up. Admitted to [facility] 04/15-04/25/24. From discharge summary Mr. Alfonzo Simon was directly admitted to [facility] on 04/15/2024 for treatment of injuries [...] discharge. Mr. Simon would be discharged to [facility] rehab in stable condition on 04/25/2024. He [...] new symptoms or clinical events -living at [facility] -prior to this lived at [...] any new symptoms or clinical events -at [facility] - thinks will have to leave soon [...] essentially back t (more content not included)... [facility] 10-13-2024 History of Present illness Narrative NEUROSURGERY FOLLOW UP OFFICE NOTE Dr. Leonard Patel MD, FACS Date of visit: October 13, 2024 Patient Name: Mr.Kevin Myrna Simon Date of : 1960 Current Age: [age] year old Sex: male MRN/E# [id number] Last Office Visit: June 20, 2024 CHIEF COMPLAINT: Patient presents with: Established Patient SUBJECTIVE: The patient presents as a follow-up with imaging (MRI B) for evaluation. This is a 64 year old male with a PMHx of BPH, HTN, morbid obesity, parkinsonism and sleep apnea who was seen for consult at [facility] on 04/16/24 after transfer from [facility] for a SAH. Per patients , [...] to do well. He was residing in [facility] and participating in PT/OT/ST. He [...] for possible pseudomeningocele or superimposed infection. [facility] facility was contacted with recommendation for the patient to be evaluated in person prompting his visit today. Since last visit he states that he has been well.. He presents for image review, evaluation and plan of care. SYMPTOMS: None PREVIOUS CONSERVATIVE TREATMENTS: custodial facility PT/OT SURGICAL RISK: Smoker: Never Diabetic: [...] Laterality Date COLONOSCOPY GEN ANES 10/22/2020 Dr. qIbal x3 last one in 2019 CYSTOSCOPY 03/2021 [...] 225.2, ICD10: D32.0 - CT BRAIN WO JYOTSNAON Leonard Patel MD FOLLOW UP: Return in about 2 weeks (around 10/27/2024) for review of imaging and plan of care. Please Note: This note has been partially generated using [employer], a speech recognition software program, and may contain errors including punctuation, grammar, spelling, gender, and inappropriate words or phrases that pertain to the system. documented in this encounter [facility] 10-13-2024 Note HNO ID: [id number] Author: LEONARD PATEL MD Service: ? Author Type: Physician Type: Progress Notes Filed: 10/13/2024 11:48 Note Text: NEUROSURGERY FOLLOW UP OFFICE NOTE Dr. Leonard Patel MD, [facility] Date of visit: October 13, 2024 Patient Name: Mr.Kevin Myrna Simon Date of : 1960 Current Age: [age] year old Sex: male MRN/E# [id number] Last Office Visit: June 20, 2024 CHIEF COMPLAINT: Patient presents with: Established Patient SUBJECTIVE: The patient presents as a follow-up with imaging (MRI B) for evaluation. This is a 64 year old male with a PMHx of BPH, HTN, morbid obesity, parkinsonism and sleep apnea who was seen for consult at [facility] on 04/16/24 after transfer from [facility] for a SAH. Per patients , [...] to do well. He was residing in [facility] and participating in PT/OT/ST. He was moving [...] for possible pseudomeningocele or superimposed infection. [facility] facility was [facility] with recommendation for the patient to be evaluated in person prompting his visit today. Since last visit he states that he has been well.. He presents for image review, evaluation and plan of care. SYMPTOMS: None PREVIOUS CONSERVATIVE TREATMENTS: custodial facility PT/OT SURGICAL RISK: Smoker: Never Diabetic: [...] days, THEN 1 (more content not included)... [facility] 10-10-2024 Telephone encounter Note Contacted nurseElizabeth at [facility] [phone] after receiving results of recent MRI brain. [...] Will have our schedulers reach out to [facility] and scheduled an appointment for this week. ARACELIS Boucher Neurosurgery Nurse Practitioner [facility] 10:37 AM 10/10/2024 [facility] Work Phone: 10-10-2024 Miscellaneous Notes Contacted Elizabeth bedolla at [facility] [phone] after receiving results of recent MRI brain. [...] Will have our schedulers reach out to [facility] and scheduled an appointment for this week. ARACELIS Boucher Neurosurgery Nurse Practitioner [facility] 10:37 AM 10/10/2024 documented in this encounter [facility] 10-04-2024 Telephone encounter Note MRI results as [...] Clinical correlation and neurosurgical follow-up is recommended. [facility] Work Phone: 10-04-2024 Miscellaneous Notes MRI results [...] follow-up is recommended. documented in this encounter [facility] 10-02-2024 History of Present illness Narrative Radiology [...] PATIENT PRESENTS WITH AN IMPLANTABLE OR ATTACHED SALES REPRESENTATIVE PUBLIC UTILITIES: No RADIOLOGY DEPARTMENT: MR; Exam(s) Completed: Head: Routine Brain PERIPHERAL IV DATA: Not applicable SIGNED BY: JD Noel) October 02, 2024 8:33 AM documented in this encounter [facility] 10-02-2024 Note HNO ID: [id number] Author: MACK DILLARD RT (R) Service: Radiology Author Type: Technologist Type: Progress [...] PATIENT PRESENTS WITH AN IMPLANTABLE OR ATTACHED SALES REPRESENTATIVE PUBLIC UTILITIES: No RADIOLOGY DEPARTMENT: MR; Exam(s) Completed: Head: Routine Brain PERIPHERAL IV DATA: Not applicable SIGNED BY: JD Noel) October 02, 2024 8:33 AM [facility] 09-29-2024 Note HNO ID: [id number] Author: MADINA AMADOR RN Service: ? Author Type: Registered Nurse Type: Progress Notes Filed: 09/29/2024 07:32 Note Text: TRANSITION CARE MANAGEMENT (TCM) DISCHARGE TO POST ACUTE FACILITY POST ACUTE TRANSFER SUMMARY: -Pt discharged from [facility] on 09/28/2024. -Post Acute Facility Admitted to [facility] -Admitted for: Pulmonary Embolism Madina Amador RN September 29, 2024 [facility] 09-29-2024 History of Present illness Narrative TRANSITION CARE MANAGEMENT (TCM) DISCHARGE TO POST ACUTE FACILITY POST ACUTE TRANSFER SUMMARY: -Pt discharged from [facility] on 09/28/2024. -Post Acute Facility Admitted to [facility] -Admitted for: Pulmonary Embolism Madina Amadro RN September 29, 2024 documented in this encounter [facility] 09-29-2024 Note Patient Outreach (AG ACM) ALFONZO SIMON ([id number]) 1960 Date Time Provider Department 09/29/24 MADINA AMADOR [facility] During your visit today, we recorded the following information about you: Madina Amador RN 09/29/2024 7:32 AM Signed TRANSITION CARE MANAGEMENT (TCM) DISCHARGE TO POST ACUTE FACILITY POST ACUTE TRANSFER SUMMARY: -Pt discharged from [facility] on 09/28/2024. -Post Acute Facility Admitted to [facility] -Admitted for: Pulmonary Embolism Madina Amador RN September 29, 2024 Allergies As of Date: 09/29/2024 (No Known Allergies) Date Reviewed: 09/27/2024 Reviewed by: Lilian Redd RN - Fully Assessed Reason for Visit: 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 Care [4074] Cmt: [facility] Discharge to [facility] Prescriptions as of 09/29/2024 - polyethylene glycol [...] Encounter Status:Closed by MADINA AMADOR on 09/29/24 [facility] 09-28-2024 Note HNO ID: [id number] Author: CAREY DE LA ROSA RN Service: Care Management Author Type: Registered Nurse Type: Care Mgt Progress Note Filed: 09/28/2024 13:08 Note Text: CARE MANAGEMENT DISCHARGE NOTE SERVICE DATE: September 28, 2024 SERVICE TIME: 1:07 PM Admission Date: 09/23/2024 LOS: 4 days Discharge Arrangement Discharge Arrangement: [facility] Was an expedited discharge program used?: No Services Arranged Provider Name: [facility] Phone: Caregiver Assessment Caregiver is ready, willing and able to meet the patient's needs as recommended by the inter-professional team: Yes Name of Caregiver: SNF Transportation Arrangements Transportation Arrangements: Ambulance Transportation Agency and Phone #:: [facility] ( [facility] ) [phone] / [phone] Date of Trip: 09/28/24 Time of Trip: 1600 Type of Service: BLS Non-emergency Is Patient Medicaid Pending?: No Was transportation financial coverage discussed with family?: Patient [employer] Mate Location: [facility] Destination: [facility] Financial Care Management Responsibility: None Handoff Communication: Additional Information: Patient discharged today, to transition to [facility]. Auth approved, sent the dc summary and 7000. [facility] to transport via cot at 1600. Transport folder on chart, notified floor RN. Updated pt at bedside of dc plans, agreeable. Discharge Information Row Name ED to Hosp-Admission (Current) from 09/23/2024 in [place] [address] [facility] SIGNATURE: Carey De La Rosa RN PATIENT NAME: Alfonzo Simon DATE: September 28, 2024 TIME: 1:06 PM CONTACT #: [phone] [facility] 09-28-2024 Note HNO ID: [id number] Author: RANDEE HAGAN RPh Service: Pharmacy Author [...] these medications aspirin 81 mg chewable tablet [facility] 09-28-2024 Note HNO ID: [id number] Author: CAREY DE LA ROSA RN Service: [...] 28, 2024 TIME: 11:59 AM PAGER/CONTACT #: [phone] [facility] 09-28-2024 Note HNO ID: [id number] Author: LILIAN KIRK, ? Service: Care Management Author Type: ? Type: Care Mgt Progress Note Filed: 09/28/2024 11:06 Note Text: [facility] PRECERT NOTE [employer] MEDICARE PPO approved Prison Facility for [facility]. Precert approved through 10/02/24. For any additional questions regarding approvals, transport or care management needs, please contact the CM assigned to this patient in the Treatment Team. SIGNATURE: Lilian Kirk DATE: September 28, 2024 TIME: 11:06 AM [facility] 09-27-2024 Note HNO ID: [id number] Author: FLORENCIO FAIR MD Service: Hospital Medicine Author Type: Physician Type: Progress Notes Filed: 09/27/2024 17:35 Note Text: DEPARTMENT OF HOSPITAL MEDICINE PROGRESS NOTE SERVICE DATE: 09/27/2024 SERVICE TIME: 5:32 PM Hospital Medicine/Primary Attending: Florencio Fair MD NIGHT AND WEEKEND COVERAGE: [place] COVERAGE: From 7am - 7pm, please call After 7pm, please call cross cover pager #[phone] Subjective INTERVAL HPI: patient was seen and [...] (Src) 98.1 (Axillary) Resp 19 Ht 6' 0 (1.83m) Wt 288 lb (130.6kg) SpO2 93% BMI 39.05 kg/(m2). O2 Therapy: Room Air Physical Exam Performed GENERAL: Alert, no distress, cooperative LUNGS: Lungs clear to auscultation, Good diaphragmatic excursion CARDIAC: Normal S1 and S2; no rubs, murmurs, or gallops ABDOMEN: Abdomen soft, non-tender, BS normal, No masses or organomegaly Lines, Drains, and Airways Line Duration Peripheral 09/23/24 2126 Right Antecubital 20 Gauge 3 days Peripheral [...] tab(s) (ELIQUIS) (apixaban tab(s) (ELIQUIS)) Placed in Followed by Linked Group 5 mg ORAL 2 TIMES DAILY Ordered 09/26/24 1035 -- 09/26/24 1100 apixaban 10 mg tab(s) (ELIQUIS) (apixaban tab(s) (ELIQUIS)) Placed in Followed by Linked Group 10 mg ORAL 2 TIMES DAILY Given, 09/27 1005 09/26/24 1035 10/03/24 0859 09/24/24 0707 vte current anticoag therapy ([place]) 09/24/24 0707 activity - mobilize patient ([place]) VTE Prophylaxis: VTE prophylaxis appropriate Disposition: To be determined Plan of care discussed with Provider, RN, Patient SIGNATURE: Florencio Fair MD PATIENT NAME: Alfonzo Simon DATE: September 27, 2024 TIME: 5:32 PM [facility] 09-27-2024 Note HNO ID: [id number] Author: CAREY DE LA ROSA RN Service: Care Management Author Type: Registered Nurse Type: Care Mgt Progress Note Filed: 09/27/2024 14:46 Note Text: CARE MANAGEMENT PROGRESS NOTE SERVICE DATE: 09/27/2024 SERVICE TIME: 2:45 PM LOS: 3 days Post-Acute Discharge Planning Patient Goal(s): Ambulate a little better, Ambulate without stopping, Better mobility, Increase strength, General wellness [place] Explained: [place] Given: Yes Level of Care Discussed: Prison Facility Discharge Planning Participant(s): Patient Patient/Family Comments: Anticipated # of Days Until Discharge: 1 Transport at Discharge: Transportation Arrangements: Ambulance Needs Prior to Discharge: Needs Prior to Discharge: Ready for Discharge, To Be Determined, Discharge Prescriptions, Insurance Authorization, Discharge Transportation Post-Acute Discharge Plan: Auth still pending for [facility]. 7000 completed and sent. Will need cot transport at [facility] to follow clinical progress. SIGNATURE: Carey De La Rosa RN PATIENT NAME: Alfonzo Simon DATE: September 27, 2024 TIME: 2:45 PM PAGER/CONTACT #: [phone] [facility] 09-27-2024 Note HNO ID: [id number] Author: FLORENCIO FAIR MD Service: Care Management [...] 27, 2024 TIME: 8:38 AM PAGER/CONTACT #: [phone] [facility] 09-26-2024 Note HNO ID: [id number] Author: CAREY DE LA ROSA RN Service: Care Management Author Type: Registered Nurse Type: Care Mgt Progress Note Filed: 09/26/2024 16:08 Note Text: CARE MANAGEMENT PROGRESS NOTE SERVICE DATE: 09/26/2024 SERVICE TIME: 11:24 AM LOS: 2 days Post-Acute Discharge Planning Patient Goal(s): Ambulate a little better, Ambulate without stopping, Better mobility, Increase strength [place] Explained: [place] Given: Yes Reason Not Given: [...] would like a referral sent to the [facility]. Tasked referral. Pt will need auth, 7000, and transport. CM to follow clinical progress. Addendum 1605: [facility] is able to accept, this is foc, tasked auth SIGNATURE: Carey De La Rosa RN PATIENT NAME: Alfonzo Simon DATE: September 26, 2024 TIME: 11:24 AM PAGER/CONTACT #: [phone] [facility] 09-26-2024 Note HNO ID: [id number] Author: BRISA CHOUDHARY DO Service: Hospital Medicine Author Type: Physician Type: Progress Notes Filed: 09/26/2024 13:15 Note Text: DEPARTMENT OF HOSPITAL MEDICINE PROGRESS NOTE SERVICE DATE: 09/26/2024 SERVICE TIME: 10:45 AM Hospital Medicine/Primary Attending: Brisa Choudhary DO NIGHT AND WEEKEND COVERAGE: [place] COVERAGE: From 7am - 7pm, please call [phone] After 7pm, please call cross cover pager #[phone] Subjective INTERVAL HPI: Pt seen and examined. EPIC reviewed. Doing well. No cp or sob. Discussed PT recs and SNF at [place]. No blood in stool or black stools. Tele: SR 95 MEDICATIONS: Reviewed Objective PHYSICAL EXAM: BP 156/77 Pulse 63 Temp (Src) 97.8 (Axillary) Resp 19 Ht 6' 0 (1.83m) Wt 288 lb (130.6kg) SpO2 95% [...] Peripheral 09/23/24 2126 Right Antecubital 20 Gauge 2 days Peripheral [...] fraction. He was seen by therapy and [facility] was recommended he was seen by [...] neuro input regarding anticoag. They were against oysterman anticoagulation at last office visit. This would [...] for Subtherapeutic PTTAC) 0-30 mL/hr Placed in And Linked Group 0-3,000 Units/hr INTRAVENOUS CONTINUOUS Rate/Dose Calculated - Heparin, 09/26 0653 09/24/24 0217 -- 09/24/24 0707 vte current anticoag therapy (pa,[place]) 09/24/24 0707 activity - mobilize patient ([place], [place]) VTE Prophylaxis: VTE prophylaxis appropriate Disposition: To be determined Plan of care discussed with: Provider, RN, Patient SIGNATURE: Brisa Choudhary DO PATIENT NAME: Alfonzo Simon DATE: September 26, 2024 TIME: 10:45 AM etx [id number] [facility] 09-26-2024 Note HNO ID: [id number] Author: LI HASTINGS RN Service: Care Management Author Type: Registered Nurse Type: Care Mgt Initial Assessment Filed: 09/26/2024 09:11 Note Text: CARE MANAGEMENT: ASSESSMENT AND DISCHARGE PLAN SERVICE DATE: September 26, 2024 SERVICE TIME: 9:06 AM PCP: Karthik Holliday APRN.CNP Primary Contact: Extended Emergency Contact Information Primary Emergency Contact: Alfonzo Salas Address: [address] [place] [address] Mobile Relation: Spouse Admission Status: Inpatient Insurance Provider: [employer] MEDICARE PPO Discharge Planning requested by: Per Department Practice Potential Transition Plans To Be Determined Advance Directives Current Advance Directive: None Trains Dispatcher Supervisor Attempted to Assist with AD Completion: Yes [...] Wheelchair-manual Discharge Planning Patient Goal(s): General wellness [place] Explained: [place] Given: No Reason Not Given: [...] 26, 2024 TIME: 9:06 AM CONTACT #: [phone] [facility] 09-25-2024 Note HNO ID: [id number] Author: BRISA CHOUDHARY DO Service: Hospital Medicine Author Type: Physician Type: Progress Notes Filed: 09/25/2024 13:02 Note Text: DEPARTMENT OF HOSPITAL MEDICINE PROGRESS NOTE SERVICE DATE: 09/25/2024 SERVICE TIME: 9:40 AM Hospital Medicine/Primary Attending: Brisa Choudhary DO NIGHT AND WEEKEND COVERAGE: [place] COVERAGE: From 7am - 7pm, please call [phone] After 7pm, please call cross cover pager #[phone] Subjective INTERVAL HPI: Pt seen and examined. EPIC reviewed. No cp or sob. No leg pain. Hoping to get up with therapy. Tired of being in bed. Tele: off, SB 40s while asleep MEDICATIONS: Reviewed Objective PHYSICAL EXAM: BP 129/76 Pulse 54 Temp (Src) 97.1 (Oral) Resp 19 Ht 6' 0 (1.83m) Wt 288 lb (130.6kg) SpO2 98% [...] Duration Peripheral 09/23/246 Right Antecubital 20 Gauge 1 day Peripheral [...] neuro input regarding anticoag. They were against oysterman anticoagulation at last office visit. This would [...] for Subtherapeutic PTTAC) 0-30 mL/hr Placed in And Linked Group 0-3,000 Units/hr INTRAVENOUS CONTINUOUS Rate Verify, 09/25 0542 09/24/24 0217 -- 09/24/24 07 vte current anticoag therapy (pa,[place]) 09/24/24 07 activity - mobilize patient ([place]) VTE Prophylaxis: VTE prophylaxis appropriate Disposition: To be determined Plan of care discussed with: Provider, RN, Patient SIGNATURE: Brisa Choudhary DO PATIENT NAME: Alfonzo Simon DATE: September 25, 2024 TIME: 9:40 AM etx [id number] [facility] 09-24-2024 Note HNO ID: [id number] Author: BRISA CHOUDHARY DO Service: Hospital Medicine Author Type: Physician Type: Progress Notes Filed: 09/24/2024 16:11 Note Text: DEPARTMENT OF HOSPITAL MEDICINE PROGRESS NOTE SERVICE DATE: 09/24/2024 SERVICE TIME: 12:30 PM Hospital Medicine/Primary Attending: Brisa Choudhary DO NIGHT AND WEEKEND COVERAGE: [place] COVERAGE: From 7am - 7pm, please call [phone] After 7pm, please call cross cover pager #[phone] Subjective INTERVAL HPI: Pt seen and examined. [...] (Src) 99.3 (Oral) Resp 18 Ht 6' 0 (1.83m) Wt 288 lb (130.6kg) SpO2 97% [...] for opinion on anticoagulation. They were against usp anticoagulation at last office visit. This would [...] for Subtherapeutic PTTAC) 0-30 mL/hr Placed in And Linked Group 0-3,000 Units/hr INTRAVENOUS CONTINUOUS New Bag/Syringe/Bottle, 09/24 23909/24/24 0217 -- VTE Prophylaxis: VTE prophylaxis appropriate Disposition: To be determined Plan of care discussed with: Provider, RN, Patient SIGNATURE: Brisa Choudhary DO PATIENT NAME: Alfonzo Simon DATE: September 24, 2024 TIME: 12:30 PM etx [id number] [facility] 09-24-2024 Note HNO ID: [id number] Author: ROSEANNA STEPHENS MD Service: Critical Care [...] MD This note was partially generated using [employer] voice recognition system. All attempts were made to correct phonetical errors, but some may still be present. [facility] 09-23-2024 Note SARS-COV-2 (AGENT OF COVID-19) RNA: Not detected INFLUENZA A RNA: Not detected INFLUENZA B RNA: Not detected RESPIRATORY SYNCYTIAL VIRUS (RSV) RNA: Not detected [facility] Comment on above: Performed By: #### 9 [id number] ####[facility] LABORATORYCLIA [id number] [place] [address] [place] 09-21-2024 Telephone encounter Note Reason for Call: High Blood Pressure Outcome: 24 HR Recommendation. Interim Care Advice given. [facility]. Reason for Disposition Systolic [...] are missed 6. OTHER SYMPTOMS: none menstrual period? Protocols used: Blood Pressure - [id number] [facility] 09-21-2024 Miscellaneous Notes Reason for Call: High Blood Pressure Outcome: 24 HR Recommendation. Interim Care Advice given. Confer patient to the [facility] for scheduling. Reason for Disposition Systolic BP [...] are missed 6. OTHER SYMPTOMS: none menstrual period? Protocols used: Blood Pressure - [id number] documented in this encounter [facility] 09-20-2024 Telephone encounter Note Noted [facility] 09-20-2024 Miscellaneous Notes Noted Is scheduled to have some home PT/OT, if falls continue he will need to be admitted to SNF for more assistance and PT. Karthik Holliday APRN.CNP September 20, 2024 3:39 PM Paula BARRETT from [facility] called in and left message. States Mejía has reported to falls since his return home and had to call 911 to assist him up. She had documented, no bruising, no pain and no injuries noted. BRITTNEEI documented in this encounter [facility] 09-20-2024 Telephone encounter Note Is scheduled to have some home PT/OT, if falls continue he will need to be admitted to SNF for more assistance and PT. Karthik Holliday APRN.CNP September 20, 2024 3:39 PM [facility] 09-20-2024 Telephone encounter Note Paula BARRETT from [facility] called in and left message. States Mejía has reported to falls since his return home and had to call 911 to assist him up. She had documented, no bruising, no pain and no injuries noted. FYI [facility] 09-18-2024 Note HNO ID: [id number] Author: KARTHIK HOLLIDAY APRN.CNP Service: ? Author Type: Nurse Practitioner Type: Progress Notes Filed: 09/18/2024 13:49 Note Text: Transitional Care Management TCM Eligibility Documentation Program: Transitional Care Management Status: Enrolled Effective Dates: 09/11/2024 - present Responsible Staff: Dayan Mina RN Discharge date: 09/08/2024 (Program start) Date of initial contact: 09/11/2024 Initial contact Target status: Successful; Contact made within 2 business days post-discharge Summary Discharged from: [facility] Admit Date: 04/15/2024, 06/04/2024 Admitted for: Subdural hematoma and failure to thrive. Karthik Holliday APRN.CNP Provider Documentation Alfonzo Simon is a 64 [...] Holliday APRN.CNP September 18, 2024 12:51 PM [facility] 09-18-2024 History of Present illness Narrative Transitional Care Management TCM Eligibility Documentation Program: Transitional Care Management Status: Enrolled Effective Dates: 09/11/2024 - present Responsible Staff: Dayan Mina RN Discharge date: 09/08/2024 (Program start) Date of initial contact: 09/11/2024 Initial contact Target status: Successful; Contact made within 2 business days post-discharge Summary Discharged from: [facility] Admit Date: 04/15/2024, 06/04/2024 Admitted for: Subdural hematoma and failure to thrive. Karthik Holliday APRN.CNP Provider Documentation Alfonzo Simon is a 64 [...] 2024 12:51 PM documented in this encounter [facility] 09-11-2024 Note HNO ID: [id number] Author: DAYAN MINA RN Service: ? Author Type: Registered Nurse Type: Progress Notes Filed: 09/11/2024 16:13 Note Text: TRANSITIONAL CARE MANAGEMENT (TCM) COMMUNITY MONITORING PROGRAM - [facility] Provider Action/FYI: TCM rehab follow up 09/18/24 with Karthik Holliday CNP SUMMARY: Pt discharged from [facility] on 09/08/24. Admitted for: Failure to Thrive Patient seen Inpatient DEBBI Visit? No. Patient seen ICARE Program? No. Contact made with patient: Yes Hi my name is Dayan Mina RN and I am calling from the [facility] on behalf of your PCP, Karthik Holliday APRN.CANARY RAISER I understand you were recently in the [...] like to speak with a social work steamer operator to help give you support for any [...] telephone visit with your PCP. ACTION TAKEN: [facility] Primary Care Provider Visit Scheduled: Yes - Appt date: 09/18/24 with Karthik Holliday CNP Your doctor would like us to remind you of the recommendations regarding the coronavirus (Covid19) outbreak: Avoid public places as much as possible. Av (more content not included)... [facility] 09-11-2024 History of Present illness Narrative TRANSITIONAL CARE MANAGEMENT (TCM) COMMUNITY MONITORING PROGRAM - [place] Provider Action/FYI: TCM rehab follow up 09/18/24 with Karthik Holliday CNP SUMMARY: Pt discharged from [facility] on 09/08/24. Admitted for: Failure to Thrive Patient seen Inpatient DEBBI Visit? No. Patient seen ICARE Program? No. Contact made with patient: Yes Hi my name is Dayan Mina RN and I am calling from the [facility] on behalf of your PCP, Karthik Holliday APRN.CANARY RAISER I understand you were recently in the [...] like to speak with a social work steamer operator to help give you support for any [...] Dayan Mina RN documented in this encounter [facility] 09-11-2024 History of Present illness Narrative Discharged from [facility] on 09/08/2024 to home. PCC notified. Madina Amador RN September 11, 2024 documented in this encounter [facility] 09-11-2024 Note HNO ID: [id number] Author: MADINA AMADOR RN Service: ? Author Type: Registered Nurse Type: Progress Notes Filed: 09/11/2024 07:39 Note Text: Discharged from [facility] on 09/08/2024 to home. PCC notified. Madina Amador RN September 11, 2024 [facility] 09-11-2024 Note Patient Outreach (AG ACM) ALFONZO SIMON ([id number]) 1960 M Date Time Provider Department 09/11/24 DAYAN MINA [facility] During your visit today, we recorded the following information about you: Dayan Mina, RN 09/11/2024 4:13 PM Signed TRANSITIONAL CARE MANAGEMENT (TCM) COMMUNITY MONITORING PROGRAM - [place] Provider Action/FYI: TCM rehab follow up 09/18/24 with Karthik Holliday CNP SUMMARY: Pt discharged from [facility] on 09/08/24. Admitted for: Failure to Thrive Patient seen Inpatient DEBBI Visit? No. Patient seen ICARE Program? No. Contact made with patient: Yes Hi my name is Dayan Mina RN and I am calling from the [facility] on behalf of your PCP, Karthik Holliday APRN.CANARY RAISER I understand you were recently in the [...] like to speak with a social work steamer operator to help give you support for any [...] date: 09/18/24 with (more content not included)... [facility] 09-11-2024 Note Patient Outreach (AG ACM) ALFONZO SIMON ([id number]) 1960 Date Time Provider Department 09/11/24 MADINA AMADOR [facility] During your visit today, we recorded the following information about you: Madina Amador RN 09/11/2024 7:39 AM Signed Discharged from [facility] on 09/08/2024 to home. [facility] notified. Madina Amador RN September 11, 2024 Allergies As of Date: 09/11/2024 (No Known Allergies) Date Reviewed: 06/20/2024 Reviewed by: Leonard Patel MD - Fully Assessed Reason for Visit: 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 Care [4074] Cmt: Discharged from [facility] to home Prescriptions as of 09/11/2024 - [...] Encounter Status:Closed by MADINA AMADOR on 09/11/24 [facility] 07-05-2024 Telephone encounter Note Last OV on 01/31 next OV on 08/04 med pend [facility] 07-05-2024 Miscellaneous Notes Last OV on 01/31 next OV on 08/04 med pend documented in this encounter [facility] 06-20-2024 History of Present illness Narrative NEUROSURGERY POST OP NOTE Dr. Leonard Patel MD, FACS Date of visit: June 20, 2024 Patient Name: Mr.Kevin Myrna Simon Date of : 1960 Current Age: [age] year old MRN/E# [id number] Last Office Visit: 05/23/2024 SURGERY: Right frontal [...] apnea who was seen for consult at [facility] on 04/16/24 after transfer from [place] ED for a SAH. Per patients , [...] to do well. He was residing in [facility] and participating in PT/OT/ST. He was moving [...] morbid, BMI 40.0-49.9 (HCC) No date: Parkinsonism ([facility]) No date: Sleep apnea Comment: no machine No date: Subdural hematoma ([facility]) 05/25/2016: Systolic murmur 05/25/2016: Vitamin D deficiency [...] This note has been partially generated using [employer], a speech recognition software program, and may contain errors including punctuation, grammar, spelling, gender, and inappropriate words or phrases that pertain to the system. documented in this encounter [facility] 06-08-2024 Note HNO ID: [id number] Author: ?, ?, ? Service: ? Author Type: ? Type: Progress Notes Filed: 06/08/2024 11:45 Note Text: Per [facility]IRC Eligibility report patient meets PIRC criteria: delirium and ICU stay >=72 hours, but found through chart review was never under the care of or seen by [facility] pulmonary/critical care staff in the Surgical ICU during the 04/15- [place] admission. Not enrolled in the PIRC Program. [facility]C Enrollment Status PIRC Call Attempt None Enrolled in PIRC Program? No - Does not meet PIRC Criteria [facility] 06-08-2024 History of Present illness Narrative Per [facility] Eligibility report patient meets PIRC criteria: delirium and ICU stay >=72 hours, but found through chart review was never under the care of or seen by [facility] pulmonary/critical care staff in the Surgical ICU during the 04/15- [place] admission. Not enrolled in the [facility]C Program. [facility]C Enrollment Status [facility]C Call Attempt None Enrolled in PIRC Program? No - Does not meet PIRC Criteria documented in this encounter [facility] 06-08-2024 History of Present illness Narrative TRANSITION CARE MANAGEMENT (TCM) DISCHARGE TO POST ACUTE FACILITY POST ACUTE TRANSFER SUMMARY: -Pt discharged from [facility] on 06/07/2024. -Post Acute Facility Admitted to [facility] -Admitted for: Failure to Thrive Office PCC will follow at discharge. Madina Amador RN June 08, 2024 documented in this encounter [facility] 06-08-2024 Note Patient Outreach (PU LMMN) ALFONZO SIMON ([id number]) 1960 M Date Time Provider Department 06/08/24 MANUEL MANCIA During your visit today, we recorded the following information about you: Manuel Mancia 06/08/2024 11:45 AM Signed Per [facility] Eligibility report patient meets PIRC criteria: delirium and ICU stay >=72 hours, but found through chart review was never under the care of or seen by [facility]/[place] pulmonary/critical care staff in the Surgical ICU during the 04/15- [place] admission. Not enrolled in the [facility] Program. [facility]C Enrollment Status [facility] Call Attempt None Enrolled in PIRC Program? No - Does not meet PIRC Criteria Allergies As of Date: 06/08/2024 (No Known Allergies) Date Reviewed: 06/04/2024 Reviewed by: Pauly Price, RN - Fully Assessed Prescriptions as of [...] Encounter Status:Closed by MANUEL MANCIA on 06/08/24 [facility] 05-30-2024 Instructions Anya Huang, FELIX.CANARY RAISER - 05/30/2024 10:14 AM EDT Images from the original note were not included. Regarding your visit with Nurse Practitioner Anya Huang today at the [facility] we discussed the following: Impression: [...] if you have any questions Anya Huang [facility] Cerebrovascular [place] Nurse Practitioner [place], [place] [address] Office: [phone] Appointments: [phone] Stroke Signs and Symptoms: *Stroke is a [...] eating plan - more information: https://www.heart.org/en/healthy-l iving/healthy-eating/eat-smart/nut rition-basics/wlt-hvqa-alz-lifesty le-recommendations Smoking and Tobacco Use (including e-cigarettes) [...] regimen, may be considered Adopted from the [place] Stroke Association Attack : A Guideline for Healthcare Professionals From the [place] Heart Guidelines for the Prevention of Stroke in Patients With Stroke or Transient Ischemic - 2014 documented in this encounter [facility] 05-30-2024 History of Present illness Narrative [facility]ULAR CENTER Established Visit Consultation is requested by: No referring provider defined for this encounter. PCP: Karthik Holliday [address] [place] [address] CEREBROVASCULAR HISTORY Alfonzo Simon is a 64 year old left-handed male presenting for hospital discharge follow up. Admitted to [facility] 04/15-04/25/24. From discharge summary Mr. Alfonzo Simon was directly admitted to [facility] on 04/15/2024 for treatment of injuries [...] discharge. Mr. Simon would be discharged to [facility] rehab in stable condition on 04/25/2024. He [...] new symptoms or clinical events -living at [facility] -prior to this lived at [...] LUE drift. Sensation: Intact light touch Coordination: Fybuhi-or-carc without dysmetria on right Gait: deferred LABS [...] appendage closure for atrial fibrillation rather than usp anticoagulation Continue Aspirin daily for secondary stroke [...] which included preparing to see the patient, csyn-dd-eyca patient care, completing clinical documentation, obtaining and/or [...] defined for this encounter. Karthik Holliday [address] [place] [address] documented in this encounter [facility] 05-23-2024 History of Present illness Narrative NEUROSURGERY POST OP NOTE Dr. Leonard Patel MD, FACS Date of visit: May 23, 2024 Patient Name: Mr.Kevin Myrna Simon Date of : 1960 Current Age: [age] year old MRN/E# [id number] Last Office Visit: 05/09/2024 SURGERY: Right frontal [...] apnea who was seen for consult at [facility] on 04/16/24 after transfer from [facility] for a SAH. Per patients , [...] overall doing well. He is currently in [employer] [facility] and participating in PT/OT/ST. He is moving [...] weakness of his left upper extremity and transportation escort diagnosed by neurology to have had ischemic [...] meningioma. - CT BRAIN WO JYOTSNAON Leonard Patel MD FOLLOW UP: Return in about 4 weeks (around 06/20/2024) for review of imaging and plan of care. Please Note: This note has been partially generated using [employer], a speech recognition software program, and may contain errors including punctuation, grammar, spelling, gender, and inappropriate words or phrases that pertain to the system. documented in this encounter [facility] 05-22-2024 History of Present illness Narrative TRANSITION CARE MANAGEMENT (TCM) DISCHARGE TO POST ACUTE FACILITY POST ACUTE TRANSFER SUMMARY: -Pt discharged from [facility] on 05/19/2024. -Post Acute Facility Admitted to [facility] -Admitted for: [facility] Office PCC will follow at discharge. Madina Amador RN May 22, 2024 documented in this encounter [facility] 05-22-2024 History of Present illness Narrative [...] Color (no units) Date Value 04/16/2024 Light [place] 09/16/2019 YELLOW Clarity (no units) Date Value 04/16/2024 Turbid Glucose, Urine Date Value 04/16/2024 Negative 09/16/2019 NEGATIVE mg/dL Bilirubin, Urine (no units) Date Value 04/16/2024 Negative 09/16/2019 NEGATIVE Ketones, Urine Date Value 04/16/2024 Negative 09/16/2019 NEGATIVE mg/dL Specific [place], Ur (no units) Date Value 04/16/2024 1.028 [...] with Dr. Mccall for yearly Suellen Conley APRN.CANARY RAISER documented in this encounter [facility] 05-17-2024 Telephone encounter Note PT doesn't have catheter per Nurse from [facility] - just needed a void trial. Added to Suellen's schedule for void trial. Thanks [facility] 05-17-2024 Miscellaneous Notes PT doesn't have catheter per Nurse from [facility] - just needed a void trial. Added to Suellen's schedule for void trial. Thanks Received call from Janie with [facility], patient needs an appointment to have hermosillo catheter removed. Catheter was placed when patient was at [facility]. [facility] 10/21/[address] Mccall. Informed her that will transfer to scheduling. Patient would need an appointment in morning with CYNTHIA LARSEN and then nurse later in afternoon for PVR. Warm transfer to scheduling. Phyllis Floyd RN documented in this encounter [facility] 05-17-2024 Telephone encounter Note I returned Irlanda [phone] requesting to change patient appt due to old appt was on patients discharge date, I left a detailed vm with patients rescheduled appt day and time [facility] 05-17-2024 Miscellaneous Notes I returned Irlanda jason [phone] requesting to change patient appt due to old appt was on patients discharge date, I left a detailed vm with patients rescheduled appt day and time documented in this encounter [facility] 05-17-2024 Telephone encounter Note [facility], patient needs an appointment to have hermosillo catheter removed. Catheter was placed when patient was at [facility]. [facility] 10/21/[address] Mccall. Informed her that will transfer to scheduling. Patient would need an appointment in morning with CYNTHIA LARSEN and then nurse later in afternoon for PVR. Warm transfer to scheduling. Phyllis Floyd RN [facility] Work Phone: 05-09-2024 History of Present illness Narrative NEUROSURGERY POST OP NOTE Dr. Leonard Patel MD, FACS Date of visit: May 09, 2024 Patient Name: Mr.Kevin Myrna Simon Date of : 1960 Current Age: [age] year old MRN/E# [id number] Last Office Visit: Post op SURGERY: Right [...] apnea who was seen for consult at [facility] on 04/16/24 after transfer from [facility] for a SAH. Per patients , the patient had fallen the evening before and was unable to get up. EMS assisted with lift and patient went to bed at home. The following day he was noted to be confused with difficulty work finding and what sounds like expressive aphasia. He was taken to [place] [facility] where imaging demonstrated a right frontotemporal [...] the left upper extremity but his hand transportation escort and fine finger movements is still showing [...] right - CT BRAIN WO JYOTSNAON Leonard Patel MD FOLLOW UP: Return in about 10 days (around 05/19/2024) for review of imaging and plan of care. Please Note: This note has been partially generated using [employer], a speech recognition software program, and may contain errors including punctuation, grammar, spelling, gender, and inappropriate words or phrases that pertain to the system. documented in this encounter [facility] 05-08-2024 History of Present illness Narrative Images from the original note were not included. [facility] [place] Erica Salinas Department of Cardiovascular Medicine SECTION OF CLINICAL CARDIOLOGY OUTPATIENT VISIT DATE May 08, 2024 OUTPATIENT VISIT TYPE CONSULTATION PRIMARY CARE PHYSICIAN: Karthik Holliday [address] [place] [address] REFERRING PHYSICIAN Anya Huang [address] [facility] [address] [facility] [address] CHIEF COMPLAINT: Atrial flutter HISTORY OF PRESENT ILLNESS: Mr. Simon is a 64 year old male who is seen today for newly diagnosed paroxysmal atrial flutter. Patient was recently admitted to [facility] due to fall leading to a subdural [...] REPOLARIZATION ABNORMALITY ( R in aVL , Startex product ) ABNORMAL ECG NO PREVIOUS ECGS AVAILABLE Confirmed by MD LM, AGUSTÍN ([id number]) on 04/19/2024 10:24:[address] Result [...] Follow-up should be performed as clinically indicated. Slasher Tender: CRYS Transcribe Date/Time: Apr 15 2024 7:24P [...] Dr. Wolf. Jake Ontiveros, Internal Medicine, PGY-II [facility] 05/08/2024 [facility] STAFF PHYSICIAN NOTE OF [...] Paroxysmal atrial fibrillation/flutter. Currently in sinus rhythm. [id number] score of 4. Ideally needs to be [...] Department of Cardiovascular Medicine [facility] [place] [facility] Desk J[address] [place] [address] Office - [phone] extension [phone] Office Appointments: [phone] -[phone] extension [phone] documented in this encounter [facility] 05-05-2024 Telephone encounter Note Spoke to the patient's spouse, Alfonzo. The office contacted him to schedule a follow-up visit with Alfonzo (the patient) once released from rehab. The spouse reported that the surgical pathology report was released to [facility] and he was wondering if somebody could [...] in detail. ARACELIS Boucher Neurosurgery Nurse Practitioner [facility] 3:35 PM 05/05/2024 [facility] Work Phone: 05-05-2024 Miscellaneous Notes Spoke to the patient's spouse, Alfonzo. The office contacted him to schedule a follow-up visit with Alfonzo (the patient) once released from rehab. The spouse reported that the surgical pathology report was released to [facility] and he was wondering if somebody could [...] in detail. ARACELIS Boucher Neurosurgery Nurse Practitioner [facility] 3:35 PM 05/05/2024 documented in this encounter [facility] 05-05-2024 Telephone encounter Note Contacted [facility] and spoke to patients nurse, Kenia. She [...] for a post op visit. She said [facility] does not transport patients to appointments. He is scheduled to be discharged on 05/19/24. We will attempt to make him an appointment shortly after his discharge. ARACELIS Boucher Neurosurgery Nurse Practitioner [facility] 11:53 AM 05/05/2024 [facility] Work Phone: 05-05-2024 Miscellaneous Notes Contacted [facility] and spoke to patients nurse, Kenia. She [...] for a post op visit. She said [facility] does not transport patients to appointments. He is scheduled to be discharged on 05/19/24. We will attempt to make him an appointment shortly after his discharge. Agata Del Toro APRN-CHAN Neurosurgery Nurse Practitioner [facility] 11:53 AM 05/05/2024 documented in this encounter [facility] 05-03-2024 Telephone encounter Note Call to pt, no answer, LVM with return number. Geni Calloway RN May 03, 2024 4:23 PM [facility] 05-03-2024 Miscellaneous Notes Call to pt, no [...] 2024 2:28 PM Received phone call from [employer], on 05/02/24 at 1059 am patient had a sinus rhythm of Sinus Florencio with a new onset of Atrial Flutter. Ne Andujar LPN documented in this encounter [facility] 05-03-2024 Note Addended by: ANYA VALE on: 05/03/2024 03:52 PM Modules accepted: Orders [facility] 05-03-2024 Telephone encounter Note Call to pt, no answer, LVM with return number. Call to pt spouse and EC, no answer, LVM with return number. Geni Calloway RN May 03, 2024 2:28 PM [facility] 05-03-2024 Telephone encounter Note Received phone call from [employer]sunita, on 05/02/24 at 1059 am patient had a sinus rhythm of Sinus Florencio with a new onset of Atrial Flutter. Ne Andujar LPN [facility] 04-27-2024 History of Present illness Narrative TRANSITIONAL CARE MANAGEMENT (TCM) COMMUNITY MONITORING PROGRAM - [place] Provider Action/FYI: SUMMARY: Pt discharged from [facility] on 04/25/24. Admitted for: subdural hematoma Patient seen Inpatient DEBBI Visit? N/A. Patient seen ICARE Program? N/A. Contact made with patient: No - 2nd unsuccessful attempt - end outreach and close encounter Outreach ended documented in this encounter [facility] 04-26-2024 History of Present illness Narrative TRANSITION CARE MANAGEMENT (TCM) DISCHARGE TO POST ACUTE FACILITY POST ACUTE TRANSFER SUMMARY: -Pt discharged from [facility] on 04/25/2024. -Post Acute Facility Admitted to [facility] -Admitted for: Subdural hematoma Office PCC will follow at discharge. Madina Amador RN April 26, 2024 10:49 AM documented in this encounter [facility] 04-26-2024 History of Present illness Narrative TRANSITIONAL CARE MANAGEMENT (TCM) COMMUNITY MONITORING PROGRAM - [place] Provider Action/FYI: SUMMARY: Pt discharged from [facility] on 04/25/24. Admitted for: subdural hematoma Patient seen Inpatient DEBBI Visit? N/A. Patient seen ICARE Program? N/A. Contact made with patient: No - next outreach attempt will be on next day Outreach ended Message left for to call office documented in this encounter [facility] 04-17-2024 History of Present illness Narrative Pt current admit. Error documented in this encounter [facility] 02-14-2024 Miscellaneous Notes MESSAGE SENT TO PT ----- Message from Karthik Holliday APRN.CHAN sent at 02/14/2024 8:05 AM EDT ----- Normal ankle brachial index at rest in the bilateral leg. Karthik Holliday APRN.CNP February 14, 2024 8:05 AM documented in this encounter [facility] 02-09-2024 Miscellaneous Notes 01/31 Last OV asking for the tamsulosin to be sent to [facility] documented in this encounter [facility] 02-02-2024 Miscellaneous Notes Results sent in my chart ----- Message from Karthik Holliday APRN.CANARY RAISER sent at 02/02/2024 7:58 AM EDT ----- - Vitamin d level remains low, daily prescription is advised. - Lipid panel is elevated, continue on medications and work on diet and exercise and will recheck in 6 months. - PSA level is elevated, Follow up with Urology recommended. Karthik Holliday APRN.CNP February 02, 2024 7:58 AM documented in this encounter [facility] 02-01-2024 History of Present illness Narrative Images from the original note were not included. [facility] Medicine [address] [place] [address] Date of Evaluation: 02/01/2024 Patient Name: Alfonzo [...] 146/85 Pulse 57 Resp 18 Ht 6' 0 (1.83m) Wt 315 lb (142.9kg) SpO2 97% [...] ICD10: R22.42 - COMPRESSION STOCKINGS Karthik Holliday APRN.CANARY RAISER Return in about 6 months (around 08/03/2024) for follow up. Discussed the above with the patient using shared decision making. The patient is in agreement with the diagnostic and treatment plans. documented in this encounter [facility] 03-01-2023 Miscellaneous Notes LVM stating appt scheduled for today at 420 had to be cancelled due to PCP being out of office documented in this encounter [facility] 02-01-2023 Miscellaneous Notes Pharmacy called requesting the following refill Refill(s) Requested: Requested Prescriptions Pending Prescriptions Disp Refills lisinopril (ZESTRIL) 40 mg tablet [Pharmacy Med Name: Lisinopril Oral Tablet 40 MG] 30 tablet 0 Sig: TAKE ONE TABLET BY MOUTH EVERY DAY ALLERGIES No Known Allergies (home) [phone] (cell) Last Office Visit Date: 11/12/2022 Last [facility] Visit: Visit date not found Future Appointment: Visit date not found The patients preferred pharmacy has been captured for this encounter? yes Request is for script(s) to be escript to pharmacy. Marybeth Malloy Ma documented in this encounter [facility] 02-01-2023 Miscellaneous Notes Left VM notifying pt that his 3:00 appt had to be cancelled due to Dr not being in the office. CB to reschedule documented in this encounter [facility] 01-18-2023 Instructions Patricia Hsu PA-C - 01/18/2023 [...] for the day. return to see Dr. Couch after these other evaluations are complete. documented in this encounter [facility] 01-18-2023 History of Present illness Narrative [facility] - FOLLOW UP EVALUATION Clint Euceda Jr, MD [address] [facility] [address] [facility] [address] Dear Clint Euceda Jr, MD: I had [...] has been seen [address] Couch and recently started on Sinemet. He is [...] pneumonia. He was initially seen by Dr. Couch for falls. At his last visit with Dr. Couch a brain MRI was recommended, but pt [...] tone. No abnormal involuntary movements. Coordination Right: Onefuj-an-lbjt normal.Left: Beucwo-eg-wobo normal. Gait Casual gait: Wide stance. Reduced [...] sleep evaluation and return to see Dr. Couch when completed. The following are the current [...] or around: 04/20/23 Level of service : 09909 ( 30-39 min). Time spent 30 min on the day of service, which included qysr-nu-vvra patient care, completing clinical documentation, performing a [...] L Hennigs, PA-C documented in this encounter [facility] 12-17-2022 Miscellaneous Notes Patient called requesting the following refill Refill(s) Requested: Requested Prescriptions Pending Prescriptions Disp Refills lisinopril (ZESTRIL, PRINIVIL) 40 mg tablet Sig: Take 1 tablet by mouth once daily. ALLERGIES No Known Allergies (home) [phone] (cell) Last Office Visit Date: 11/12/2022 Last [facility] Visit: Visit date not found Future Appointment: Visit date not found The patients preferred pharmacy has been captured for this encounter? yes Request is for script(s) to be escript to pharmacy. Marybeth Malloy Ma documented in this encounter [facility] 12-01-2022 History of Present illness Narrative TRANSITION CARE MANAGEMENT (TCM) FOLLOW-UP NOTE Provider Action/FYI Patient identified by name and date of : YES Spoke to patient Summary: Patient feels well and denies fever, sweats, chills, SOB, mucus, cough, or chest pain. Denies any needs at this time. Concerns: None at this time. Glove Operator plan for next outreach: No further follow up needed at this time Signature Dayan Mina RN December 01, 2022 documented in this encounter [facility] 11-24-2022 History of Present illness Narrative TRANSITION CARE MANAGEMENT (TCM) FOLLOW-UP NOTE Provider Action/FYSanto Patient identified by name and date of : YES Spoke to patient Summary: Patient feels well and denies fever, sweats, chills, SOB, mucus, cough, or chest pain. Denies any needs at this time. Concerns: None at this time. Glove Operator plan for next outreach: Will follow up ~ 1 week Signature Dayan Mina RN November 24, 2022 documented in this encounter [facility] 11-17-2022 History of Present illness Narrative TRANSITION CARE MANAGEMENT (TCM) FOLLOW-UP NOTE Provider Action/FYI Patient identified by name and date of : YES Spoke to patient Summary: Patient is in the [place] PNA Zone. He denies chest pain, mucus, fever, cough, or SOB. Concerns: None at this time. Glove Operator plan for next outreach: Will follow up ~ 1 week Signature Dayan Mina RN November 17, 2022 documented in this encounter [facility] 11-12-2022 Instructions Rosalinda Olivas APRN.CNP - 11/12/2022 [...] 2022 2:02 PM documented in this encounter [facility] 11-12-2022 History of Present illness Narrative Transitional [...] Mild cough. He was going to [facility] for parkinsonism and had taken a bus [...] 2022 2:02 PM documented in this encounter [facility] 11-10-2022 Miscellaneous Notes Patient aware He should [...] He needs a new script sent to [facility] on file. documented in this encounter [facility] 11-10-2022 History of Present illness Narrative TRANSITION [...] on 11/12/22. Concerns: None at this time. Glove Operator plan for next outreach: Will follow up ~ 1 week Signature Dayan Mina RN November 10, 2022 documented in this encounter [facility] 10-29-2022 History of Present illness Narrative [facility] - FOLLOW UP EVALUATION Clint Euceda Jr, MD [address] [facility] [address] [facility] [address] I had the pleasure of seeing Mr. [...] his mood medications. He was in a senior care till 2 weeks ago but insurance ran [...] using the PROMIS scale: PROMIS-10 Flowsheet Row [facility] from 10/07/2022 in Neurology OT/PT/Speech Visit from 01/20/2021 in [facility] Global Physical Health T Score [...] 5/5 throughout all four extremities. Coordination Right: Pzmeaf-dn-sbbm normal.Left: Qqlxuo-gy-wuda normal. Gait Casual gait: Normal stance. Reduced [...] research? Not currently Level of service : 48135 (40-54 min). Time spent 50 min on the day of service, which included preparing to see the patient, lhfc-ql-vmwx patient care, completing clinical documentation, obtaining and/or [...] to call with any questions. Sincerely, Josse Couch MD documented in this encounter [facility] 10-29-2022 Instructions Josse Couch MD - 10/29/2022 9:52 AM EST You [...] a sleep study. documented in this encounter [facility] 10-21-2022 Instructions Paul Mccall MD - 10/21/2022 3:46 PM EST It was great to see you today! I think you need to get your sleep apnea treated and I'll bet your urinary nighttime symptoms vastly improve. I'll see you back in a year. Have a Merry Kristyn! documented in this encounter [facility] 10-21-2022 History of Present illness Narrative Images from the original note were not included. [facility] [place] ESTABLISHED PATIENT OFFICE VISIT HISTORY OF PRESENT [...] to errors including those of syntax and sound-alike substitutions which may escape proofreading. In such instances, original meaning may be extrapolated by contextual derivation. documented in this encounter [facility] 10-08-2022 History of Present illness Narrative TRANSITIONAL CARE MANAGEMENT (TCM) COMMUNITY MONITORING PROGRAM - [place] Provider Action/FYI: SUMMARY: Pt discharged from [facility] on 10/05/22. Admitted for: Parkinsonism Contact made with patient: No - next outreach attempt will be on next business day Outreach ended TRANSITIONAL CARE MANAGEMENT (TCM) COMMUNITY MONITORING PROGRAM - [place] Provider Action/FYI: SUMMARY: Pt discharged from [facility] on 10/05/22. Admitted for: Parkinsonism Contact made with patient: Yes Hi my name is Moo Dumont RN and I am calling from the [facility] on behalf of your PCP, Clint [...] like to speak with a social work steamer operator to help give you support for any [...] I will send your request to a fisher lobster who will contact and assist you with [...] way if possible). documented in this encounter [facility] 10-07-2022 Note HNO ID: [id number] Author: Josse Couch MD Service: ? Author Type: Physician Type: Progress Notes Filed: 10/07/2022 8:38 AM Note Text: [facility] - NEW PATIENT EVALUATION Clint Euceda Jr [address] [facility] [address] [place] [address] [facility] [address] Clint Euceda Jr, MD [address] [place] [address] [facility] [address] Euceda: I had the pleasure of evaluating Mr. Simon to our clinic today. As you know he is a 62 year old left-handed male who is seen in consultation for evaluation of falls since 2 weeks . He is seen alone. We had a visit using: [employer] I received consent from the patient to perform the visit using this platform. 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 [...] times. He tends to fall forward. The senior care was trying to work on the posture [...] Visit from 01/20/2021 in [facility] Global Physical Health T Score [...] pain or fev (more content not included)... [facility] 10-07-2022 History of Present illness Narrative [facility] - NEW PATIENT EVALUATION Clint Euceda Jr [address] [facility] [address] [place] [address] [facility] [address] Clint Euceda Jr, MD [address] [facility] [address] [place] [address] [facility] [address] Euceda: I had the pleasure of evaluating Mr. Simon to our clinic today. As you know he is a 62 year old left-handed male who is seen in consultation for evaluation of falls since 2 weeks . He is seen alone. We had a visit using: [employer] I received consent from the patient to perform the visit using this platform. 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 [...] times. He tends to fall forward. The senior care was trying to work on the posture [...] Visit from 01/20/2021 [facility] PHYSICAL THERAPY Global Physical Health T Score [...] Essential hypertension (05/25/2016), Obesity, morbid, BMI 40.0-49.9 ([facility]), Sleep apnea, Systolic murmur (05/25/2016), and Vitamin [...] or around: 10/21/22 Level of service : 20679 (30-44 min). Time spent 30 min on the day of service, which included preparing to see the patient, [id number] patient care, completing clinical documentation, obtaining and/or reviewing separately obtained history, performing a medically appropriate examination, and counseling and educating the patient/family/caregiver. Thank you for allowing me to be part of the clinical care of this patient! I look forward to continued participation in the patient s care with you. Please do not hesitate to call with any questions. Sincerely, Josse Couch MD documented in this encounter [facility] 09-29-2022 History of Present illness Narrative TRANSITION CARE MANAGEMENT (TCM) FOLLOW-UP NOTE Provider Sylvia/FRANK Patient remains at [facility] receiving skilled care. [phone]. Glove Operator plan for next outreach: Will follow up 1 week Signature Moo Dumont RN September 29, 2022 documented in this encounter [facility] 09-24-2022 Miscellaneous Notes Neurology Referral place through the [facility] Portal on September 24, 2022. #[id number] Preferred Provider Dr. roxy Dickerson documented in this encounter [facility] 09-21-2022 History of Present illness Narrative TRANSITION CARE MANAGEMENT (TCM) FOLLOW-UP NOTE Provider Sylvia/FRANK Patient is still on skilled unit and receiving skilled care at [facility] [phone] Glove Operator plan for next outreach: Will follow up 1 week Signature Moo Dumont RN September 21, 2022 documented in this encounter [facility] 09-18-2022 Miscellaneous Notes Pt states he has had several falls, balance unsteady, and bettyky had to go to ER documented in this encounter [facility] 09-08-2022 Miscellaneous Notes Pt known to Dr Mccall. He was a no show on 09/03 to an appt with Mitzi. Pt seen on consult for urinary frequency. He needs a f/u appt scheduled. Thanks documented in this encounter [facility] 09-07-2022 History of Present illness Narrative TRANSITION CARE MANAGEMENT (TCM) DISCHARGE TO POST ACUTE FACILITY POST ACUTE TRANSFER SUMMARY: -Pt discharged from [facility] on 09/06/22. -Post Acute Facility Admitted to [facility] -Admitted for: Parkinsonism Moo Dumont RN documented in this encounter [facility] 09-03-2022 Miscellaneous Notes Pt called states pt has been admitted to [facility] documented in this encounter [facility] 09-03-2022 History of Present illness Narrative The patient did not show up for this appointment. documented in this encounter [facility] 09-01-2022 Instructions Lianne Menon APRN.CANARY RAISER - 09/01/2022 3:17 PM EDT (W19.XXXA) Fall, initial encounter (primary encounter diagnosis) Plan: CONSULT TO EMERGENCY MEDICINE Multiple falls over the last couple months for un-balance issues, worse in the last week. Needs ER evaluation now. Vitals are stable to private transport. documented in this encounter [facility] 09-01-2022 History of Present illness Narrative This note was created using [employer]. Subjective Alfonzo Simon is a 62 year [...] up right away. Associated symptoms include feeling off balance but denies dizziness. Does have some shortness [...] after visit summary. documented in this encounter [facility] 05-08-2022 Instructions Rosalinda Olivas APRN.CNP - 05/08/2022 [...] Rosalinda Olivas APRN.CNP documented in this encounter [facility] 05-08-2022 History of Present illness Narrative Images from the original note were not included. Alfonzo Simon is a 62 year old male who presents for Back Pain (upper back, last few months, furniture walking) Here for upper back pain concerns: He also struggles with balance. The history is provided by the patient. No per diem interpreter was used. Back Pain This is a [...] 69 Temp 97.7 Resp 20 Ht 6' 0 (1.83m) Wt 307 lb (139.3kg) SpO2 98% [...] CONSULT TO PHYSICAL THERAPY (AG) Rosalinda Olivas APRN.CANARY RAISER Return if symptoms worsen or fail to improve. Discussed above plan with patient. Pt agreeable with above plan. documented in this encounter [facility] 04-10-2022 History of Present illness Narrative Images from the original note were not included. Clint Euceda Jr., M.D. [facility] [address] [place] [address] Date of Evaluation: 04/10/2022 Patient Name: Alfonzo [...] His venlafaxine and bupropion are handled by [facility]. He denies any problems at this time [...] 155/88 Pulse 60 Resp 15 Ht 0' 6 (0.15m) Wt 315 lb 6.4 oz (143.1kg) [...] patient. This note was partially generated using Yatedo voice recognition system, and there may be some incorrect words, spellings, and punctuation that were not noted in checking the note before saving. documented in this encounter [facility] 03-24-2022 Miscellaneous Notes Pharmacy faxed requesting the following refill Refill(s) Requested: Pending Prescriptions Disp Refills ATORVASTATIN 20 MG TABLET 30 tablet 0 Sig: TAKE ONE TABLET BY MOUTH EVERY DAY CARITO: Yes ALLERGIES No Known Allergies (home) [phone] (cell) Last Office Visit Date: 06/04/2021 Last [facility] Visit: Visit date not found Future Appointment: Visit date not found The patients preferred pharmacy has been captured for this encounter? yes Request is for script(s) to be escript to pharmacy. Divya Abreu LPN documented in this encounter [facility] 02-19-2022 History of Present illness Narrative Images from the original note were not included. Paul Lorenz MD [facility] [address] [place] [address] [facility] / [address] [place] [address] Visit Date: February 19, 2022 Name: Alfonzo Simon Date of : 1960 MRN/E #: [id number] Chief Complaint: No chief complaint on file. [...] Value Ref Range Status COVID 19 Source DICTAPHONE MECHANIC 10/26/2021 UPPER RESPIRATORY TRACT SWAB Final Influenza A PCR 10/26/2021 Negative for Influenza A by RT PCR Final Influenza B PCR 10/26/2021 Negative for Influenza B by RT PCR Final COVID 19 Result DICTAPHONE MECHANIC 10/26/2021 Negative for COVID19 (SARS CoV2) by RT-PCR or equivalent method. Negative for COVID19 (SARS CoV2) by RT-PCR or equivalent method. Final Comment: This test was developed and its performance characteristics determined by [facility]'s [facility] [place]. This test has been authorized by FDA under an Emergency Use Authorization (EUA). This test has been validated in accordance with the FDA's Guidance Document Policy for Diagnostics Testing in Laboratories Certified to Perform High Complexity Testing under CLIA prior to Emergency use Authorization for Coronavirus Disease 2019 during the Public Health Emergency issued on January 06, 2020. Test performed by [facility], [facility] [place], [address] [place] [address]. Results for orders placed or performed in visit on 10/24/21 COVID WITH FLUA+B, ROUTINE Specimen: OTHER; Nasal Swab Result Value Ref Range COVID 19 Source DICTAPHONE MECHANIC UPPER RESPIRATORY TRACT SWAB Influenza A PCR Negative for Influenza A by RT PCR Influenza B PCR Negative for Influenza B by RT PCR COVID 19 Result DICTAPHONE MECHANIC Negative for COVID19 (SARS CoV2) by RT-PCR or equivalent method. Negative for COVID19 (SARS CoV2) by RT-PCR or equivalent method. ASSESSMENT/PLAN: 1. Essential hypertension - ICD9: 401.9, ICD10: I10 (primary diagnosis) - Well controlled today. Will keep on current medications 2. [facility] current use of diuretic - ICD9: V58.69, ICD10: Z79.899 - Will check potassium every 6 months - BASIC METABOLIC PNL Paul Lorenz MD No follow-ups on file. Discussed the above with the patient using shared decision-making. The patient is in agreement with the diagnostic and treatment plans. Provider: Paul Lorenz M.D. Date: February 19, 2022 Time: 1:09 PM documented in this encounter [facility] 09-13-2019 History of Past i llness Narrative Problem Noted Date Resolved Date Closed fracture of left tibial plateau 9 12/25/2020 Obesity, Class II, BMI 35-39.9 06/28/2018 0 12/25/2020 Bilateral lower extremity edema 05/25/2016 12/25/2020 documented as of this encounter (statuses as of 02/23/2022) [facility] History of Past illness Narrative* Problem Noted Date Resolved Date Closed fracture of left tibial plateau 9 12/25/2020 Obesity, Class II, BMI 35-39.9 06/28/2018 0 12/25/2020 Bilateral lower extremity edema 05/25/2016 12/25/2020 documented as of this encounter (statuses as of 03/24/2022) [facility] History of Past illness Narrative* Problem Noted Date Resolved Date Closed fracture of left tibial plateau 9 12/25/2020 Obesity, Class II, BMI 35-39.9 06/28/2018 0 12/25/2020 Bilateral lower extremity edema 05/25/2016 12/25/2020 documented as of this encounter (statuses as of 04/10/2022) [facility] History of Past illness Narrative* Problem Noted Date Resolved Date Closed fracture of left tibial plateau 9 12/25/2020 Obesity, Class II, BMI 35-39.9 06/28/2018 0 12/25/2020 Bilateral lower extremity edema 05/25/2016 12/25/2020 documented as of this encounter (statuses as of 05/08/2022) [facility] History of Past illness Narrative* Problem Noted Date Resolved Date Closed fracture of left tibial plateau 9 12/25/2020 Obesity, Class II, BMI 35-39.9 06/28/2018 0 12/25/2020 Bilateral lower extremity edema 05/25/2016 12/25/2020 documented as of this encounter (statuses as of 09/01/2022) [facility] History of Past illness Narrative* Problem Noted Date Resolved Date Closed fracture of left tibial plateau 9 12/25/2020 Obesity, Class II, BMI 35-39.9 06/28/2018 0 12/25/2020 Bilateral lower extremity edema 05/25/2016 12/25/2020 documented as of this encounter (statuses as of 09/03/2022) [facility] History of Past illness Narrative* Problem Noted Date Resolved Date Closed fracture of left tibial plateau 9 12/25/2020 Obesity, Class II, BMI 35-39.9 06/28/2018 0 12/25/2020 Bilateral lower extremity edema 05/25/2016 12/25/2020 documented as of this encounter (statuses as of 09/07/2022) [facility] History of Past illness Narrative* Problem Noted Date Resolved Date Closed fracture of left tibial plateau 9 12/25/2020 Obesity, Class II, BMI 35-39.9 06/28/2018 0 12/25/2020 Bilateral lower extremity edema 05/25/2016 12/25/2020 documented as of this encounter (statuses as of 09/08/2022) [facility] History of Past illness Narrative* Problem Noted Date Resolved Date Closed fracture of left tibial plateau 9 12/25/2020 Obesity, Class II, BMI 35-39.9 06/28/2018 0 12/25/2020 Bilateral lower extremity edema 05/25/2016 12/25/2020 documented as of this encounter (statuses as of 09/21/2022) [facility] History of Past illness Narrative* Problem Noted Date Resolved Date Closed fracture of left tibial plateau 9 12/25/2020 Obesity, Class II, BMI 35-39.9 06/28/2018 0 12/25/2020 Bilateral lower extremity edema 05/25/2016 12/25/2020 documented as of this encounter (statuses as of 09/22/2022) [facility] History of Past illness Narrative* Problem Noted Date Resolved Date Closed fracture of left tibial plateau 9 12/25/2020 Obesity, Class II, BMI 35-39.9 06/28/2018 0 12/25/2020 Bilateral lower extremity edema 05/25/2016 12/25/2020 documented as of this encounter (statuses as of 09/24/2022) [facility] History of Past illness Narrative* Problem Noted Date Resolved Date Closed fracture of left tibial plateau 9 12/25/2020 Obesity, Class II, BMI 35-39.9 06/28/2018 0 12/25/2020 Bilateral lower extremity edema 05/25/2016 12/25/2020 documented as of this encounter (statuses as of 09/25/2022) [facility] History of Past illness Narrative* Problem Noted Date Resolved Date Closed fracture of left tibial plateau 9 12/25/2020 Obesity, Class II, BMI 35-39.9 06/28/2018 0 12/25/2020 Bilateral lower extremity edema 05/25/2016 12/25/2020 documented as of this encounter (statuses as of 09/29/2022) [facility] History of Past illness Narrative* Problem Noted Date Resolved Date Closed fracture of left tibial plateau 9 12/25/2020 Obesity, Class II, BMI 35-39.9 06/28/2018 0 12/25/2020 Bilateral lower extremity edema 05/25/2016 12/25/2020 documented as of this encounter (statuses as of 10/07/2022) [facility] History of Past illness Narrative* Problem Noted Date Resolved Date Closed fracture of left tibial plateau 9 12/25/2020 Obesity, Class II, BMI 35-39.9 06/28/2018 0 12/25/2020 Bilateral lower extremity edema 05/25/2016 12/25/2020 documented as of this encounter (statuses as of 10/09/2022) [facility] History of Past illness Narrative* Problem Noted Date Resolved Date Closed fracture of left tibial plateau 9 12/25/2020 Obesity, Class II, BMI 35-39.9 06/28/2018 0 12/25/2020 Bilateral lower extremity edema 05/25/2016 12/25/2020 documented as of this encounter (statuses as of 10/21/2022) [facility] History of Past illness Narrative* Problem Noted Date Resolved Date Closed fracture of left tibial plateau 9 12/25/2020 Obesity, Class II, BMI 35-39.9 06/28/2018 0 12/25/2020 Bilateral lower extremity edema 05/25/2016 12/25/2020 documented as of this encounter (statuses as of 10/30/2022) [facility] History of Past illness Narrative* Problem Noted Date Resolved Date Closed fracture of left tibial plateau 9 12/25/2020 Obesity, Class II, BMI 35-39.9 06/28/2018 0 12/25/2020 Bilateral lower extremity edema 05/25/2016 12/25/2020 documented as of this encounter (statuses as of 11/12/2022) [facility] History of Past illness Narrative* Problem Noted Date Resolved Date Closed fracture of left tibial plateau 9 12/25/2020 Obesity, Class II, BMI 35-39.9 06/28/2018 0 12/25/2020 Bilateral lower extremity edema 05/25/2016 12/25/2020 documented as of this encounter (statuses as of 11/12/2022) [facility] History of Past illness Narrative* Problem Noted Date Resolved Date Closed fracture of left tibial plateau 9 12/25/2020 Obesity, Class II, BMI 35-39.9 06/28/2018 0 12/25/2020 Bilateral lower extremity edema 05/25/2016 12/25/2020 documented as of this encounter (statuses as of 11/13/2022) [facility] History of Past illness Narrative* Problem Noted Date Resolved Date Closed fracture of left tibial plateau 9 12/25/2020 Obesity, Class II, BMI 35-39.9 06/28/2018 0 12/25/2020 Bilateral lower extremity edema 05/25/2016 12/25/2020 documented as of this encounter (statuses as of 11/17/2022) [facility] History of Past illness Narrative* Problem Noted Date Resolved Date Closed fracture of left tibial plateau 9 12/25/2020 Obesity, Class II, BMI 35-39.9 06/28/2018 0 12/25/2020 Bilateral lower extremity edema 05/25/2016 12/25/2020 documented as of this encounter (statuses as of 11/24/2022) [facility] History of Past illness Narrative* Problem Noted Date Resolved Date Closed fracture of left tibial plateau 9 12/25/2020 Obesity, Class II, BMI 35-39.9 06/28/2018 0 12/25/2020 Bilateral lower extremity edema 05/25/2016 12/25/2020 documented as of this encounter (statuses as of 12/01/2022) [facility] History of Past illness Narrative* Problem Noted Date Resolved Date Closed fracture of left tibial plateau 9 12/25/2020 Obesity, Class II, BMI 35-39.9 06/28/2018 0 12/25/2020 Bilateral lower extremity edema 05/25/2016 12/25/2020 documented as of this encounter (statuses as of 12/17/2022) [facility] History of Past illness Narrative* Problem Noted Date Resolved Date Closed fracture of left tibial plateau 9 12/25/2020 Obesity, Class II, BMI 35-39.9 06/28/2018 0 12/25/2020 Bilateral lower extremity edema 05/25/2016 12/25/2020 documented as of this encounter (statuses as of 01/19/2023) [facility] of Past [facility] Narrative* Problem Noted Date Resolved Date Closed fracture of left tibial plateau 9 12/25/2020 Obesity, Class II, BMI 35-39.9 06/28/2018 0 12/25/2020 Bilateral lower extremity edema 05/25/2016 12/25/2020 documented as of this encounter (statuses as of 02/01/2023) [facility] of Past [facility] Narrative* Problem Noted Date Resolved Date Closed fracture of left tibial plateau 9 12/25/2020 Obesity, Class II, BMI 35-39.9 06/28/2018 0 12/25/2020 Bilateral lower extremity edema 05/25/2016 12/25/2020 documented as of this encounter (statuses as of 02/02/2023) [facility] of Past [facility] Narrative* Problem Noted Date Resolved Date Closed fracture of left tibial plateau 9 12/25/2020 Obesity, Class II, BMI 35-39.9 06/28/2018 0 12/25/2020 Bilateral lower extremity edema 05/25/2016 12/25/2020 documented as of this encounter (statuses as of 03/01/2023) [facility] Narrative* Problem Noted Date Diagnosed Date Resolved Date Closed fracture of left tibial plateau 09/13/2019 12/25/2020 Obesity, Class II, BMI 35-39.9 06/28/2018 12/25/2020 Bilateral lower extremity edema 05/25/2016 12/25/2020 documented as of this encounter (statuses as of 06/23/2023) [facility] of Past [facility] Narrative* Problem Noted Date Diagnosed Date Resolved Date Closed fracture of left tibial plateau 09/13/2019 12/25/2020 Obesity, Class II, BMI 35-39.9 06/28/2018 12/25/2020 Bilateral lower extremity edema 05/25/2016 12/25/2020 documented as of this encounter (statuses as of 02/01/2024) [facility] of Past [facility] Narrative* Problem Noted Date Diagnosed Date Resolved Date Closed fracture of left tibial plateau 09/13/2019 12/25/2020 Obesity, Class II, BMI 35-39.9 06/28/2018 12/25/2020 Bilateral lower extremity edema 05/25/2016 12/25/2020 documented as of this encounter (statuses as of 02/02/2024) [facility] of Past [facility] Narrative* Problem Noted Date Diagnosed Date Resolved Date Closed fracture of left tibial plateau 09/13/2019 12/25/2020 Obesity, Class II, BMI 35-39.9 06/28/2018 12/25/2020 Bilateral lower extremity edema 05/25/2016 12/25/2020 documented as of this encounter (statuses as of 02/09/2024) [facility] of Past [facility] Narrative* Problem Noted Date Diagnosed Date Resolved Date Closed fracture of left tibial plateau 09/13/2019 12/25/2020 Obesity, Class II, BMI 35-39.9 06/28/2018 12/25/2020 Bilateral lower extremity edema 05/25/2016 12/25/2020 documented as of this encounter (statuses as of 02/14/2024) [facility] note* Diagnosis Essential hypertension- Primary Unspecified essential hypertension [facility] current use of diuretic documented in this encounter [facility] note* Diagnosis Dyslipidemia Other and unspecified hyperlipidemia documented in this encounter [facility] note* Diagnosis Benign prostatic hyperplasia with lower urinary tract symptoms, symptom details unspecified- Primary Essential hypertension Unspecified essential hypertension Dyslipidemia Other and unspecified hyperlipidemia documented in this encounter [facility] note* Diagnosis Chronic midline thoracic back pain- Primary Dyslipidemia Other and unspecified hyperlipidemia Balance problem Other symptoms involving nervous and musculoskeletal systems documented in this encounter [facility] note* Diagnosis Fall, initial encounter- Primary Balance problem Other symptoms involving nervous and musculoskeletal systems Fatigue, unspecified type documented in this encounter [facility] note* Diagnosis NO SHOW- Primary documented in this encounter [facility] note* Diagnosis Parkinsonism, unspecified Parkinsonism type (HCC)- Primary documented in this encounter [facility] note* Diagnosis Essential hypertension Unspecified essential hypertension documented in this encounter [facility] note* Diagnosis Shuffling gait- Primary Abnormality of gait Gait instability Abnormality of gait documented in this encounter [facility] noteNo assessment information availableWSt. Vincent Hospital Work Phone: Evaluation note* Diagnosis Benign prostatic hyperplasia with lower urinary tract symptoms, symptom details unspecified- Primary Urinary frequency documented in this encounter [facility] note* Diagnosis Parkinsonism, unspecified Parkinsonism type (HCC)- Primary HARJEET (obstructive sleep apnea) Obstructive sleep apnea (adult) (pediatric) documented in this encounter [facility] note* Diagnosis Parkinsonism, unspecified Parkinsonism type (HCC)- Primary documented in this encounter [facility] note* Diagnosis Hospital discharge follow-up- Primary Other follow-up examination Essential hypertension Unspecified essential hypertension Pneumonia due to influenza A virus Influenza with pneumonia Weakness Other malaise and fatigue Balance problem Other symptoms involving nervous and musculoskeletal systems [facility] Diagnosis Parkinsonism, unspecified Parkinsonism type (HCC)- Primary [facility]* Diagnosis Encounter to establish care- Primary [...] left lower leg [facility]* Diagnosis Benign prostatic hyperplasia with lower urinary tract symptoms, symptom details unspecified [facility]* Diagnosis Atrial flutter, unspecified type (HCC)- Primary Traumatic subdural hematoma with loss of consciousness, sequela (HCC) [facility]* Diagnosis SDH (subdural hematoma) (HCC)- Primary Subdural hemorrhage [facility]* Diagnosis Atrial flutter, unspecified type (HCC)- Primary [facility]* Diagnosis Traumatic subdural hematoma with loss of consciousness, sequela (HCC)- Primary Intracranial meningioma (HCC) Benign neoplasm of cerebral meninges [facility]* Diagnosis Atrial flutter, unspecified type (HCC)- Primary Subdural hematoma (HCC) Subdural hemorrhage History of ischemic stroke [facility]* Diagnosis SDH (subdural hematoma) (HCC) Subdural hemorrhage documented in this [facility] Diagnosis Benign prostatic hyperplasia with urinary retention- Primary Traumatic subdural hematoma with loss of consciousness, sequela (HCC)- Primary Intracranial meningioma (HCC) Benign neoplasm of cerebral meninges documented in this [facility] Diagnosis Traumatic subdural hematoma with loss [...] and unspecified hyperlipidemia [facility] Diagnosis Traumatic subdural hematoma with loss of consciousness, sequela (HCC)- Primary documented [facility] this [facility] Diagnosis Traumatic subdural hematoma with loss of consciousness, sequela (HCC) Intracranial meningioma (HCC) Benign neoplasm of cerebral meninges documented [facility] this [facility] Diagnosis Benign prostatic hyperplasia with lower urinary tract symptoms, symptom details unspecified documented [facility] this [facility] Diagnosis Hospital discharge follow-up- Primary Other [...] (HCC) Morbid obesity [facility] this [facility] Diagnosis Silent micro-hemorrhage of brain (HCC) documented [facility] this [facility] Diagnosis Traumatic subdural hematoma with loss of consciousness, sequela (HCC)- Primary Intracranial meningioma (HCC) Benign neoplasm of cerebral meninges documented [facility] this [facility] Diagnosis Spastic hemiparesis of left dominant [...] [facility] Diagnosis Intracranial meningioma (HCC)- Primary Benign neoplasm of cerebral meninges Benign neoplasm of meninges (HCC) Benign neoplasm of cerebral meninges documented [facility] Diagnosis Traumatic subdural hematoma with loss of consciousness, sequela (HCC) Intracranial meningioma (HCC) Benign neoplasm of cerebral meninges [facility] Depression, unspecified depression type- Primary [facility] Diagnosis Depression, unspecified depression type- Primary [facility] Diagnosis Multiple subsegmental pulmonary emboli without acute cor pulmonale (HCC) Acute deep vein thrombosis (DVT) of proximal vein of lower extremity, unspecified laterality (HCC) [facility] Diagnosis Intracranial meningioma (HCC) Benign neoplasm of cerebral meninges Benign neoplasm of meninges (HCC) Benign neoplasm of cerebral meninges [facility] Diagnosis Soft tissue mass- Primary Disorders of soft tissue, unspecified Intracranial meningioma (HCC)- Primary Benign neoplasm of cerebral meninges Traumatic subdural hematoma with loss of consciousness, sequela (HCC) [facility] Diagnosis Intracranial meningioma (HCC)- Primary Benign neoplasm of cerebral meninges Traumatic subdural hematoma with loss of consciousness, sequela (HCC) [facility] Diagnosis 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- Primary [facility] Diagnosis Spastic hemiparesis of left dominant side as late effect of cerebral infarction (HCC)- Primary Silent micro-hemorrhage of brain (HCC) Atrial flutter, unspecified type (HCC) Essential hypertension Unspecified essential hypertension Dyslipidemia Other and unspecified hyperlipidemia [facility] Diagnosis Atrial flutter, unspecified type (HCC)- Primary [facility]* Diagnosis 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 [facility] Diagnosis Multiple subsegmental pulmonary emboli without acute cor pulmonale (HCC)- Primary Acute deep vein thrombosis (DVT) of proximal vein of lower extremity, unspecified laterality (HCC) [facility] Diagnosis Spastic hemiparesis of left dominant side as late effect of cerebral infarction (HCC)- Primary Silent micro-hemorrhage of brain (HCC) Atrial flutter, unspecified type (HCC) Essential hypertension Unspecified essential hypertension Dyslipidemia Other and unspecified hyperlipidemia documented in this encounter [facility] for referral (narrative)* Diagnostic Procedure Only (Routine) - Pending Review Specialty Diagnoses / Procedures Referred By Contac t Referred To Contact US IMAGING Diagnoses Venous insufficiency Procedures US ANKLE BRACHIAL INDICES NON-INVAS PHYSIOLOGIC STD EXTREMITY ART 2 LEVEL Karthik Holliday APRN.CNP [address] [place] [address] Us Imaging [facility]95 Referral ID Status Reason Start Date Expiration Date Visits Requested Visits Authorized [id number] Pending Review Auto-Generat ed Referral 02/01/2024 03/02/2025 1 1 [facility] for referral (narrative)* Outpatient Procedure (Routine) - Authorized Specialty Diagnoses / Procedures Referred By Contac t Referred To Contact [facility] [place] Diagnoses Atrial flutter, unspecified type (HCC) Procedures ECG COMPLETE ECG ROUTINE ECG W/LEAST 12 LDS W/I&R Jed Wolf MD [address] [place] [address] [facility] [place] [address] Referral ID Status Reason Start Date Expiration Date Visits Requested Visits Authorized [id number] Authorized Auto-Generat ed Referral 05/04/2024 05/04/2025 1 1 [facility] for referral (narrative)* Outpatient Procedure (Routine) - Pending Review Specialty Diagnoses / Procedures Referred By Contac t Referred To Contact [facility] [place] Diagnoses Atrial flutter, unspecified type (HCC) Subdural hematoma (HCC) History of ischemic stroke Procedures ECG COMPLETE ECG ROUTINE ECG W/LEAST 12 LDS W/I&R Jed Wolf MD [address] [place] [address] [address] Referral ID Status Reason Start Date Expiration Date Visits Requested Visits Authorized [id number] Pending Review Auto-Generat ed Referral 05/09/2024 05/09/2025 1 1 * Transition of Care (Routine) - Ref Not Required Specialty Diagnoses / Procedures Referred By Perri calero Referred To Contact [facility] [place] Procedures CARDIOVASCULAR MEDICINE OP FOLLOW UP APPT ORDER Jed Wolf MD [address] [place] [address] [place] [id number] Referral ID Status Reason Start Date Expiration Date Visits Requested Visits Authorized [id number] Ref Not Required PCP Requested Referral 06/09/2024 05/09/2025 1 1 [facility] for referral (narrative)* Diagnostic Procedure Only (Routine) - New Request Specialty Diagnoses / Procedures Referred By Perri calero Referred To Contact US IMAGING Diagnoses Thyroid nodule Procedures US THYROID/PARATHYROID US SOFT TISSUE HEAD & NECK REAL TIME IMGE Karthik Koroma APRN.CANARY RAISER [address] [place] [address] [place] [address] Referral ID Status Reason Start Date Expiration Date Visits Requested Visits Authorized [id number] New Request Auto-Generat ed Referral 10/18/2025 1 1 [facility] for referral (narrative)No reason for referral information availableWSt. Vincent Hospital Work Phone: Reason for visit Narrative* Diagnostic Procedure Only (Routine) - Closed Specialty Diagnoses / Procedures Referred By Perri calero Referred To Contact [facility] Diagnoses Traumatic subdural hemorrhage with loss of consciousness of unspecified duration, sequela Benign neoplasm of cerebral meninges CT BRAIN WO-GK Traumatic subdural hematoma with loss of consciousness, sequela (HCC) [S06.5X9S] Intracranial meningioma (HCC) [D32.0] Procedures CT HEAD/BRAIN W/O CONTRAST MATERIAL CT WWO [place] [address] Leonard Patel MD [address] [place] [address] [facility] [facility] [place] [address] Referral ID Status Reason Start Date Expiration Date Visits Re quested Visits Authorized [id number] Closed 05/09/2024 07/08/2024 1 1 [facility] for visit Narrative* MRI/CT (Routine) - Closed Specialty Diagnoses / Procedures Referred By Perri calero Referred To Contact MR IMAGING Diagnoses Intracranial meningioma (HCC) Benign neoplasm of meninges (HCC) Procedures MRI BRAIN WO/W IVCON MRI BRAIN BRAIN STEM W/O W/CONTRAST MATERIAL Leonard Patel MD [address] [place] [id number] Phone: tel: fax: MR IMAGING [place] [address] Referral ID Status Reason Start Date Expiration Date V isits Requested Visits Authorized [id number] Closed Auto-Generate d Referral 10/27/2024 11/26/2025 1 1 [facility] for visit Narrative* Outpatient Procedure (Routine) - Closed Specialty Diagnoses / Procedures Referred By Perri calero Referred To [facility] Diagnoses 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 Procedures ECG COMPLETE ECG ROUTINE ECG W/LEAST 12 LDS W/I&R Candelario Schwartz MD [address] [place] [address] Phone: tel: fax: [facility] [place] [address] [place] [address] Referral ID Status Reason Start Date Expiration Date V isits Requested Visits Authorized [id number] Closed Auto-Generate d Referral 01/20/2025 01/20/2026 1 1 [facility] Summary Purpose Family History No Family History [...] Documents on File Type Date Recorded 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 Advance Directive(s) 08/29/2021 9:55 PM [...] Documents on File Type Date Recorded 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 Advance Directive(s) 08/29/2021 9:55 PM [...] TO PHYSICAL THERAPY (AG) Rosalinda Olivas APRN.CNP [address] [address] Referral ID Status Reason Start Date Expiration Date Visits Requested Visits Authorized [id number] Ref Not Required PCP Requested Referral 05/08/2022 08/06/2022 1 1 Specialty Diagnoses / Procedures Referred By Contac t Referred To Contact Neurology Diagnoses Parkinsonism, unspecified Parkinsonism type (HCC) Procedures CONSULT TO NEUROLOGY OFFICE/OUTPATIENT [facility] 60-74 MINUTES Clint Euceda Jr., MD [address] [address] Referral ID Status Reason Start Date Expiration Date Visits Requested Visits Authorized [id number] Authorized PCP Requested Referral 2 09/20/2023 1 1 Specialty Diagnoses / Procedures Referred By Contac t Referred To Contact Diagnoses Shuffling gait Gait instability Procedures PROVIDER ORDERED FOLLOW UP OFFICE/OUTPATIENT [facility] MDM 60-74 MINUTES Josse Couch MD [address] [place] [address] Referral ID Status Reason Start Date Expiration Date Visits Requested Visits Authorized [id number] Authorized PCP Requested Referral 2 10/07/2023 1 1 Specialty Diagnoses / Procedures Referred By Contac t Referred To Contact Diagnoses Parkinsonism, unspecified Parkinsonism type (HCC) HARJEET (obstructive sleep apnea) Procedures CONSULT TO SLEEP MEDICINE - ADULT OFFICE/OUTPATIENT NEW HIGH MDM 60-74 MINUTES Josse Couch MD [address] [place] [address] Referral ID Status Reason Start Date Expiration Date Visits Requested Visits Authorized [id number] Authorized PCP Requested Referral 2 10/29/2023 1 1 Specialty Diagnoses / Procedures Referred By Contac t Referred To Contact MR IMAGING Diagnoses Parkinsonism, unspecified Parkinsonism type (HCC) Procedures MRI BRAIN WO IVCON MRI BRAIN BRAIN STEM W/O CONTRAST MATERIAL Josse Couch MD [address] [place] [address] Mr Imaging Referral ID Status Reason Start Date Expiration Date Visits Requested Visits Authorized [id number] Pending Review Auto-Generat ed Referral 2 11/28/2023 1 1 Specialty Diagnoses / Procedures Referred By Contac t Referred To Contact Diagnoses Hospital discharge follow-up Weakness Balance problem Procedures CONSULT TO PHYSICAL THERAPY (AG) Rosalinda Olivas APRN.CANARY RAISER [address] [address] Referral ID Status Reason Start Date Expiration Date Visits Requested Visits Authorized [id number] Ref Not Required PCP Requested Referral 11/12/2022 02/10/2023 1 1 Specialty Diagnoses / Procedures Referred By Contac t Referred To Contact Diagnoses Parkinsonism, unspecified Parkinsonism type (HCC) Procedures PROVIDER ORDERED FOLLOW UP OFFICE/OUTPATIENT NEW HIGH MDM 60-74 MINUTES Patricia Hsu PA-C [address] [place] [address] Referral ID Status Reason Start Date Expiration Date Visits Requested Visits Authorized [id number] Authorized PCP Requested Referral 04/20/2023 01/18/2024 1 1 Specialty Diagnoses / Procedures Referred By Contac t Referred To Contact Diagnoses Atrial flutter, unspecified type (HCC) Traumatic subdural hematoma with loss of consciousness, sequela (HCC) Procedures CONSULT TO ELECTROPHYSIOLOGY OFFICE/OUTPATIENT [facility] 60 MINUTES Anya Huang, ELECTRONIC TESTER.CANARY RAISER [address] [address] Referral ID Status Reason Start Date Expiration Date Visits Requested Visits Authorized [id number] Authorized PCP Requested Referral 05/03/2024 05/03/2025 1 1 Specialty Diagnoses / Procedures Referred By Contac t Referred To Contact CT IMAGING Diagnoses SDH (subdural hematoma) (HCC) Procedures CT BRAIN WO IVCON CT HEAD/BRAIN W/O CONTRAST MATERIAL Scott Minor, ELECTRONIC TESTER.CANARY RAISER [address] [place] [address] Ct Imaging [place] [address] Referral ID Status Reason Start Date Expiration Date Visits Requested Visits Authorized [id number] Pending Review Auto-Generat ed Referral 04/23/2024 05/23/2025 1 1 Specialty Diagnoses / Procedures Referred By Contac t Referred To Contact CT IMAGING Diagnoses Traumatic subdural hematoma with loss of consciousness, sequela (HCC) Intracranial meningioma (HCC) Procedures CT BRAIN WO IVCON CT HEAD/BRAIN W/O CONTRAST MATERIAL Agata Del Toro, ELECTRONIC TESTER.CANARY RAISER [address] [place] [address] Ct Imaging [place] [address] Referral ID Status Reason Start Date Expiration Date Visits Requested Visits Authorized [id number] Pending Review Auto-Generat ed Referral 05/09/2024 06/08/2025 1 1 Referral ID Status Reason Start Date Expiration Date Visits Requested Visits Authorized [id number] Authorized Auto-Generat ed Referral 06/20/2024 09/20/2024 1 1 Specialty Diagnoses / Procedures Referred By Contac t Referred To Contact MR IMAGING Diagnoses Silent micro-hemorrhage of brain (HCC) Procedures MRI BRAIN WO IVCON MRI BRAIN BRAIN STEM W/O CONTRAST MATERIAL Anya Huang, ELECTRONIC TESTER.CANARY RAISER [address] [address] Mr Imaging [facility] Referral ID Status Reason Start Date Expiration Date Visits Requested Visits Authorized [id number] New Request Auto-Generat ed Referral 06/12/2024 07/12/2025 1 1 Referral ID Status Reason Start Date Expiration Date Visits Requested Visits Authorized [id number] Pending Review Auto-Generat ed Referral 10/13/2024 11/12/2025 1 1 Specialty Diagnoses / Procedures Referred By Contac t Referred To Contact Diagnoses Multiple subsegmental pulmonary emboli without acute cor pulmonale (HCC) Acute deep vein thrombosis (DVT) of proximal vein of lower extremity, unspecified laterality (HCC) Procedures CONSULT TO HEMATOLOGY/ONCOLOGY OFFICE/OUTPATIENT [facility] 60 MINUTES Anya Huang APRN.CANARY RAISER [address] [address] Referral ID Status Reason Start Date Expiration Date Visits Requested Visits Authorized [id number] Authorized PCP Requested Referral 10/26/2025 1 1 Specialty Diagnoses / Procedures Referred By Contac t Referred To Contact MR IMAGING Diagnoses Intracranial meningioma (HCC) Benign neoplasm of meninges (HCC) Procedures MRI BRAIN WO/W IVCON MRI BRAIN BRAIN STEM W/O W/CONTRAST MATERIAL Leonard Patel MD [address] [place] [address] Mr Imaging [place] [address] Referral ID Status Reason Start Date Expiration Date Visits Requested Visits Authorized [id number] Authorized Auto-Generat ed Referral 11/26/2025 1 1 Specialty Diagnoses / Procedures Referred By Contac t Referred To Contact Diagnoses Depression, unspecified depression type Karthik Holliday, ELECTRONIC TESTER.CANARY RAISER [address] [place] [address] Referral ID Status Reason Start Date Expiration Date V isits Requested Visits Authorized [id number] Pending Review 1 1 Specialty Diagnoses / Procedures Referred By Contac t Referred To Contact [facility]LECULAR [facility] FUNCTIONAL IMAGING Diagnoses Multiple subsegmental pulmonary emboli without acute cor pulmonale (HCC) Acute deep vein thrombosis (DVT) of proximal vein of lower extremity, unspecified laterality (HCC) Procedures FACTOR V LEIDEN/PCR F5 COAGULATION FACTOR V ANAL LEIDEN VARIANT Fiath Moore, ELECTRONIC TESTER.CANARY RAISER [address] [place] [address] Molecular & Functional Imaging [address] [place] [address] Referral ID Status Reason Start Date Expiration Date V isits Requested Visits Authorized [id number] Denied PCP Requested Referral Auto-Generated Referral 12/12/2024 03/12/2025 1 0 Chief Complaint and Reason for Visit Chief Complaint LONGTERM LABWORK LONGTERM LAB WORK Chief Complaint LONGTERM LAB WOR K LONGTERM LABWORK LONGTERM LAB WORK Chief Complaint Admit Date LONGTERM LAB WORK November 06 5:00am LONGTERM LAB WORK January 08, 2025 4: 00am Chief Complaint Admit Date LONGTERM LAB WORK November 06 5:00am LONGTERM LAB WORK January 08, 2025 4: 00am LABWORK February 05, 2025 5:0 0am Chief Complaint Admit Date LONGTERM LAB WORK January 08, 2025 4: 00am LABWORK February 05, 2025 5:0 0am LONGTERM LAB WORK March 20, 2025 5:0 0am [...] section and content) DATE CREATED AUTHOR 08/30/2021 [facility] DATE CREATED AUTHOR AUTHOR'S ORGANIZ ATION 10/07/2022 [facility] DATE CREATED AUTHOR AUTHOR'S ORGANIZ ATION 05/10/2025 [facility] DATE CREATED AUTHOR AUTHOR'S ORGANIZ ATION 06/23/2025 [facility] DATE CREATED AUTHOR AUTHOR'S ORGANIZ ATION 09/07/2025 [facility] Source Comments (unrecognize d section and content) In the event this informatio n is protected by the Federal Confidentiality of Alcohol and Drug Abuse Patient Records regulations: The Federal rules restrict any use of the information to criminally investigate or prosecute any alcohol or drug abuse patient.[facility] the event this information is protected by the Federal Confidentiality of Alcohol and Drug Abuse Patient Records regulations: The Federal rules restrict any use of the information to criminally investigate or prosecute any alcohol or drug abuse patient.[facility] the event this information is protected by the Federal Confidentiality of Alcohol and Drug Abuse Patient Records regulations: The Federal rules restrict any use of the information to criminally investigate or prosecute any alcohol or drug abuse patient.[facility] the event this information is protected by the Federal Confidentiality of Alcohol and Drug Abuse Patient Records regulations: The Federal rules restrict any use of the information to criminally investigate or prosecute any alcohol or drug abuse patient.[facility] the event this information is protected by the Federal Confidentiality of Alcohol and Drug Abuse Patient Records regulations: The Federal rules restrict any use of the information to criminally investigate or prosecute any alcohol or drug abuse patient.[facility] the event this information is protected by the Federal Confidentiality of Alcohol and Drug Abuse Patient Records regulations: The Federal rules restrict any use of the information to criminally investigate or prosecute any alcohol or drug abuse patient.[facility] the event this information is protected by the Federal Confidentiality of Alcohol and Drug Abuse Patient Records regulations: The Federal rules restrict any use of the information to criminally investigate or prosecute any alcohol or drug abuse patient.[facility] the event this information is protected by the Federal Confidentiality of Alcohol and Drug Abuse Patient Records regulations: The Federal rules restrict any use of the information to criminally investigate or prosecute any alcohol or drug abuse patient.[facility] the event this information is protected by the Federal Confidentiality of Alcohol and Drug Abuse Patient Records regulations: The Federal rules restrict any use of the information to criminally investigate or prosecute any alcohol or drug abuse patient.[facility] the event this information is protected by the Federal Confidentiality of Alcohol and Drug Abuse Patient Records regulations: The Federal rules restrict any use of the information to criminally investigate or prosecute any alcohol or drug abuse patient.[facility] the event this information is protected by the Federal Confidentiality of Alcohol and Drug Abuse Patient Records regulations: The Federal rules restrict any use of the information to criminally investigate or prosecute any alcohol or drug abuse patient.[facility] the event this information is protected by the Federal Confidentiality of Alcohol and Drug Abuse Patient Records regulations: The Federal rules restrict any use of the information to criminally investigate or prosecute any alcohol or drug abuse patient.[facility] the event this information is protected by the Federal Confidentiality of Alcohol and Drug Abuse Patient Records regulations: The Federal rules restrict any use of the information to criminally investigate or prosecute any alcohol or drug abuse patient.[facility] the event this information is protected by the Federal Confidentiality of Alcohol and Drug Abuse Patient Records regulations: The Federal rules restrict any use of the information to criminally investigate or prosecute any alcohol or drug abuse patient.[facility] the event this information is protected by the Federal Confidentiality of Alcohol and Drug Abuse Patient Records regulations: The Federal rules restrict any use of the information to criminally investigate or prosecute any alcohol or drug abuse patient.[facility] the event this information is protected by the Federal Confidentiality of Alcohol and Drug Abuse Patient Records regulations: The Federal rules restrict any use of the information to criminally investigate or prosecute any alcohol or drug abuse patient.[facility] the event this information is protected by the Federal Confidentiality of Alcohol and Drug Abuse Patient Records regulations: The Federal rules restrict any use of the information to criminally investigate or prosecute any alcohol or drug abuse patient.[facility] the event this information is protected by the Federal Confidentiality of Alcohol and Drug Abuse Patient Records regulations: The Federal rules restrict any use of the information to criminally investigate or prosecute any alcohol or drug abuse patient.[facility] Hospital[facility] the event this information is protected by the Federal Confidentiality of Alcohol and Drug Abuse Patient Records regulations: The Federal rules restrict any use of the information to criminally investigate or prosecute any alcohol or drug abuse patient.[facility]In the event this information is protected by the Federal Confidentiality of Alcohol and Drug Abuse Patient Records regulations: The Federal rules restrict any use of the information to criminally investigate or prosecute any alcohol or drug abuse patient.[facility] HospitalIn the event this information is protected by the Federal Confidentiality of Alcohol and Drug Abuse Patient Records regulations: The Federal rules restrict any use of the information to criminally investigate or prosecute any alcohol or drug abuse patient.[facility] HospitalIn the event this information is protected by the Federal Confidentiality of Alcohol and Drug Abuse Patient Records regulations: The Federal rules restrict any use of the information to criminally investigate or prosecute any alcohol or drug abuse patient.[facility] HospitalIn the event this information is protected by the Federal Confidentiality of Alcohol and Drug Abuse Patient Records regulations: The Federal rules restrict any use of the information to criminally investigate or prosecute any alcohol or drug abuse patient.[facility] HospitalIn the event this information is protected by the Federal Confidentiality of Alcohol and Drug Abuse Patient Records regulations: The Federal rules restrict any use of the information to criminally investigate or prosecute any alcohol or drug abuse patient.[facility] HospitalIn the event this information is protected by the Federal Confidentiality of Alcohol and Drug Abuse Patient Records regulations: The Federal rules restrict any use of the information to criminally investigate or prosecute any alcohol or drug abuse patient.[facility] HospitalIn the event this information is protected by the Federal Confidentiality of Alcohol and Drug Abuse Patient Records regulations: The Federal rules restrict any use of the information to criminally investigate or prosecute any alcohol or drug abuse patient.[facility] HospitalIn the event this information is protected by the Federal Confidentiality of Alcohol and Drug Abuse Patient Records regulations: The Federal rules restrict any use of the information to criminally investigate or prosecute any alcohol or drug abuse patient.[facility] HospitalIn the event this information is protected by the Federal Confidentiality of Alcohol and Drug Abuse Patient Records regulations: The Federal rules restrict any use of the information to criminally investigate or prosecute any alcohol or drug abuse patient.[facility] HospitalIn the event this information is protected by the Federal Confidentiality of Alcohol and Drug Abuse Patient Records regulations: The Federal rules restrict any use of the information to criminally investigate or prosecute any alcohol or drug abuse patient.[facility] HospitalIn the event this information is protected by the Federal Confidentiality of Alcohol and Drug Abuse Patient Records regulations: The Federal rules restrict any use of the information to criminally investigate or prosecute any alcohol or drug abuse patient.[facility] HospitalIn the event this information is protected by the Federal Confidentiality of Alcohol and Drug Abuse Patient Records regulations: The Federal rules restrict any use of the information to criminally investigate or prosecute any alcohol or drug abuse patient.[facility] HospitalIn the event this information is protected by the Federal Confidentiality of Alcohol and Drug Abuse Patient Records regulations: The Federal rules restrict any use of the information to criminally investigate or prosecute any alcohol or drug abuse patient.[facility] HospitalIn the event this information is protected by the Federal Confidentiality of Alcohol and Drug Abuse Patient Records regulations: The Federal rules restrict any use of the information to criminally investigate or prosecute any alcohol or drug abuse patient.[facility] HospitalIn the event this information is protected by the Federal Confidentiality of Alcohol and Drug Abuse Patient Records regulations: The Federal rules restrict any use of the information to criminally investigate or prosecute any alcohol or drug abuse patient.[facility] HospitalIn the event this information is protected by the Federal Confidentiality of Alcohol and Drug Abuse Patient Records regulations: The Federal rules restrict any use of the information to criminally investigate or prosecute any alcohol or drug abuse patient.[facility] HospitalIn the event this information is protected by the Federal Confidentiality of Alcohol and Drug Abuse Patient Records regulations: The Federal rules restrict any use of the information to criminally investigate or prosecute any alcohol or drug abuse patient.[facility] HospitalIn the event this information is protected by the Federal Confidentiality of Alcohol and Drug Abuse Patient Records regulations: The Federal rules restrict any use of the information to criminally investigate or prosecute any alcohol or drug abuse patient.[facility] HospitalIn the event this information is protected by the Federal Confidentiality of Alcohol and Drug Abuse Patient Records regulations: The Federal rules restrict any use of the information to criminally investigate or prosecute any alcohol or drug abuse patient.[facility] HospitalIn the event this information is protected by the Federal Confidentiality of Alcohol and Drug Abuse Patient Records regulations: The Federal rules restrict any use of the information to criminally investigate or prosecute any alcohol or drug abuse patient.[facility] HospitalIn the event this information is protected by the Federal Confidentiality of Alcohol and Drug Abuse Patient Records regulations: The Federal rules restrict any use of the information to criminally investigate or prosecute any alcohol or drug abuse patient.[facility] HospitalIn the event this information is protected by the Federal Confidentiality of Alcohol and Drug Abuse Patient Records regulations: The Federal rules restrict any use of the information to criminally investigate or prosecute any alcohol or drug abuse patient.[facility] HospitalIn the event this information is protected by the Federal Confidentiality of Alcohol and Drug Abuse Patient Records regulations: The Federal rules restrict any use of the information to criminally investigate or prosecute any alcohol or drug abuse patient.[facility] HospitalIn the event this information is protected by the Federal Confidentiality of Alcohol and Drug Abuse Patient Records regulations: The Federal rules restrict any use of the information to criminally investigate or prosecute any alcohol or drug abuse patient.[facility] HospitalIn the event this information is protected by the Federal Confidentiality of Alcohol and Drug Abuse Patient Records regulations: The Federal rules restrict any use of the information to criminally investigate or prosecute any alcohol or drug abuse patient.[facility] HospitalIn the event this information is protected by the Federal Confidentiality of Alcohol and Drug Abuse Patient Records regulations: The Federal rules restrict any use of the information to criminally investigate or prosecute any alcohol or drug abuse patient.[facility] HospitalIn the event this information is protected by the Federal Confidentiality of Alcohol and Drug Abuse Patient Records regulations: The Federal rules restrict any use of the information to criminally investigate or prosecute any alcohol or drug abuse patient.[facility] HospitalIn the event this information is protected by the Federal Confidentiality of Alcohol and Drug Abuse Patient Records regulations: The Federal rules restrict any use of the information to criminally investigate or prosecute any alcohol or drug abuse patient.[facility] HospitalIn the event this information is protected by the Federal Confidentiality of Alcohol and Drug Abuse Patient Records regulations: The Federal rules restrict any use of the information to criminally investigate or prosecute any alcohol or drug abuse patient.[facility] HospitalIn the event this information is protected by the Federal Confidentiality of Alcohol and Drug Abuse Patient Records regulations: The Federal rules restrict any use of the information to criminally investigate or prosecute any alcohol or drug abuse patient.[facility] HospitalIn the event this information is protected by the Federal Confidentiality of Alcohol and Drug Abuse Patient Records regulations: The Federal rules restrict any use of the information to criminally investigate or prosecute any alcohol or drug abuse patient.[facility] HospitalIn the event this information is protected by the Federal Confidentiality of Alcohol and Drug Abuse Patient Records regulations: The Federal rules restrict any use of the information to criminally investigate or prosecute any alcohol or drug abuse patient.[facility] HospitalIn the event this information is protected by the Federal Confidentiality of Alcohol and Drug Abuse Patient Records regulations: The Federal rules restrict any use of the information to criminally investigate or prosecute any alcohol or drug abuse patient.[facility] HospitalIn the event this information is protected by the Federal Confidentiality of Alcohol and Drug Abuse Patient Records regulations: The Federal rules restrict any use of the information to criminally investigate or prosecute any alcohol or drug abuse patient.[facility] HospitalIn the event this information is protected by the Federal Confidentiality of Alcohol and Drug Abuse Patient Records regulations: The Federal rules restrict any use of the information to criminally investigate or prosecute any alcohol or drug abuse patient.[facility] HospitalIn the event this information is protected by the Federal Confidentiality of Alcohol and Drug Abuse Patient Records regulations: The Federal rules restrict any use of the information to criminally investigate or prosecute any alcohol or drug abuse patient.[facility] HospitalIn the event this information is protected by the Federal Confidentiality of Alcohol and Drug Abuse Patient Records regulations: The Federal rules restrict any use of the information to criminally investigate or prosecute any alcohol or drug abuse patient.[facility] HospitalIn the event this information is protected by the Federal Confidentiality of Alcohol and Drug Abuse Patient Records regulations: The Federal rules restrict any use of the information to criminally investigate or prosecute any alcohol or drug abuse patient.[facility] HospitalIn the event this information is protected by the Federal Confidentiality of Alcohol and Drug Abuse Patient Records regulations: The Federal rules restrict any use of the information to criminally investigate or prosecute any alcohol or drug abuse patient.[facility] HospitalIn the event this information is protected by the Federal Confidentiality of Alcohol and Drug Abuse Patient Records regulations: The Federal rules restrict any use of the information to criminally investigate or prosecute any alcohol or drug abuse patient.[facility] HospitalIn the event this information is protected by the Federal Confidentiality of Alcohol and Drug Abuse Patient Records regulations: The Federal rules restrict any use of the information to criminally investigate or prosecute any alcohol or drug abuse patient.[facility] HospitalIn the event this information is protected by the Federal Confidentiality of Alcohol and Drug Abuse Patient Records regulations: The Federal rules restrict any use of the information to criminally investigate or prosecute any alcohol or drug abuse patient.[facility] HospitalIn the event this information is protected by the Federal Confidentiality of Alcohol and Drug Abuse Patient Records regulations: The Federal rules restrict any use of the information to criminally investigate or prosecute any alcohol or drug abuse patient.[facility] HospitalIn the event this information is protected by the Federal Confidentiality of Alcohol and Drug Abuse Patient Records regulations: The Federal rules restrict any use of the information to criminally investigate or prosecute any alcohol or drug abuse patient.[facility] HospitalIn the event this information is protected by the Federal Confidentiality of Alcohol and Drug Abuse Patient Records regulations: The Federal rules restrict any use of the information to criminally investigate or prosecute any alcohol or drug abuse patient.[facility] HospitalIn the event this information is protected by the Federal Confidentiality of Alcohol and Drug Abuse Patient Records regulations: The Federal rules restrict any use of the information to criminally investigate or prosecute any alcohol or drug abuse patient.[facility] HospitalIn the event this information is protected by the Federal Confidentiality of Alcohol and Drug Abuse Patient Records regulations: The Federal rules restrict any use of the information to criminally investigate or prosecute any alcohol or drug abuse patient.[facility] HospitalIn the event this information is protected by the Federal Confidentiality of Alcohol and Drug Abuse Patient Records regulations: The Federal rules restrict any use of the information to criminally investigate or prosecute any alcohol or drug abuse patient.[facility] HospitalIn the event this information is protected by the Federal Confidentiality of Alcohol and Drug Abuse Patient Records regulations: The Federal rules restrict any use of the information to criminally investigate or prosecute any alcohol or drug abuse patient.[facility] HospitalIn the event this information is protected by the Federal Confidentiality of Alcohol and Drug Abuse Patient Records regulations: The Federal rules restrict any use of the information to criminally investigate or prosecute any alcohol or drug abuse patient.[facility] HospitalIn the event this information is protected by the Federal Confidentiality of Alcohol and Drug Abuse Patient Records regulations: The Federal rules restrict any use of the information to criminally investigate or prosecute any alcohol or drug abuse patient.[facility] HospitalIn the event this information is protected by the Federal Confidentiality of Alcohol and Drug Abuse Patient Records regulations: The Federal rules restrict any use of the information to criminally investigate or prosecute any alcohol or drug abuse patient.[facility] HospitalIn the event this information is protected by the Federal Confidentiality of Alcohol and Drug Abuse Patient Records regulations: The Federal rules restrict any use of the information to criminally investigate or prosecute any alcohol or drug abuse patient.[facility] HospitalIn the event this information is protected by the Federal Confidentiality of Alcohol and Drug Abuse Patient Records regulations: The Federal rules restrict any use of the information to criminally investigate or prosecute any alcohol or drug abuse patient.[facility] HospitalIn the event this information is protected by the Federal Confidentiality of Alcohol and Drug Abuse Patient Records regulations: The Federal rules restrict any use of the information to criminally investigate or prosecute any alcohol or drug abuse patient.[facility] HospitalIn the event this information is protected by the Federal Confidentiality of Alcohol and Drug Abuse Patient Records regulations: The Federal rules restrict any use of the information to criminally investigate or prosecute any alcohol or drug abuse patient.[facility] HospitalIn the event this information is protected by the Federal Confidentiality of Alcohol and Drug Abuse Patient Records regulations: The Federal rules restrict any use of the information to criminally investigate or prosecute any alcohol or drug abuse patient.[facility] HospitalIn the event this information is protected by the Federal Confidentiality of Alcohol and Drug Abuse Patient Records regulations: The Federal rules restrict any use of the information to criminally investigate or prosecute any alcohol or drug abuse patient.[facility] HospitalIn the event this information is protected by the Federal Confidentiality of Alcohol and Drug Abuse Patient Records regulations: The Federal rules restrict any use of the information to criminally investigate or prosecute any alcohol or drug abuse patient.[facility] HospitalIn the event this information is protected by the Federal Confidentiality of Alcohol and Drug Abuse Patient Records regulations: The Federal rules restrict any use of the information to criminally investigate or prosecute any alcohol or drug abuse patient.[facility] HospitalIn the event this information is protected by the Federal Confidentiality of Alcohol and Drug Abuse Patient Records regulations: The Federal rules restrict any use of the information to criminally investigate or prosecute any alcohol or drug abuse patient.[facility] HospitalIn the event this information is protected by the Federal Confidentiality of Alcohol and Drug Abuse Patient Records regulations: The Federal rules restrict any use of the information to criminally investigate or prosecute any alcohol or drug abuse patient.[facility] HospitalIn the event this information is protected by the Federal Confidentiality of Alcohol and Drug Abuse Patient Records regulations: The Federal rules restrict any use of the information to criminally investigate or prosecute any alcohol or drug abuse patient.[facility] HospitalIn the event this information is protected by the Federal Confidentiality of Alcohol and Drug Abuse Patient Records regulations: The Federal rules restrict any use of the information to criminally investigate or prosecute any alcohol or drug abuse patient.[facility] HospitalIn the event this information is protected by the Federal Confidentiality of Alcohol and Drug Abuse Patient Records regulations: The Federal rules restrict any use of the information to criminally investigate or prosecute any alcohol or drug abuse patient.[facility] HospitalIn the event this information is protected by the Federal Confidentiality of Alcohol and Drug Abuse Patient Records regulations: The Federal rules restrict any use of the information to criminally investigate or prosecute any alcohol or drug abuse patient.[facility] HospitalIn the event this information is protected by the Federal Confidentiality of Alcohol and Drug Abuse Patient Records regulations: The Federal rules restrict any use of the information to criminally investigate or prosecute any alcohol or drug abuse patient.[facility] HospitalIn the event this information is protected by the Federal Confidentiality of Alcohol and Drug Abuse Patient Records regulations: The Federal rules restrict any use of the information to criminally investigate or prosecute any alcohol or drug abuse patient.[facility] HospitalIn the event this information is protected by the Federal Confidentiality of Alcohol and Drug Abuse Patient Records regulations: The Federal rules restrict any use of the information to criminally investigate or prosecute any alcohol or drug abuse patient.[facility] HospitalIn the event this information is protected by the Federal Confidentiality of Alcohol and Drug Abuse Patient Records regulations: The Federal rules restrict any use of the information to criminally investigate or prosecute any alcohol or drug abuse patient.[facility] HospitalIn the event this information is protected by the Federal Confidentiality of Alcohol and Drug Abuse Patient Records regulations: The Federal rules restrict any use of the information to criminally investigate or prosecute any alcohol or drug abuse patient.[facility] HospitalIn the event this information is protected by the Federal Confidentiality of Alcohol and Drug Abuse Patient Records regulations: The Federal rules restrict any use of the information to criminally investigate or prosecute any alcohol or drug abuse patient.[facility] HospitalIn the event this information is protected by the Federal Confidentiality of Alcohol and Drug Abuse Patient Records regulations: The Federal rules restrict any use of the information to criminally investigate or prosecute any alcohol or drug abuse patient.[facility] Teams (unrecognized sec tion and content) Supervisor Tumblers Relationship Specialty Start Date End Date Ángel Crawford MD [address] [place] [address] [place], [place] [address], [place] [id number] PCP - General Family Practice 01/19/22 Paul Lorenz MD [address] [place] [address] [place], [place] [phone] PCP Resident Family Practice 01/19/22 Supervisor Tumblers Relationship Specialty Start Date End Date Clint Euceda Jr., MD [address] [place] [address] PCP - General Family Practice 03/09/22 Paul Lorenz MD [address] [place] [address] [place], [place] [phone] PCP Resident Family Practice 01/19/22 Supervisor Tumblers Relationship Specialty Start Date End Date Clint Euceda Jr., MD [address] [place] [address] PCP - General Family Practice 03/09/22 Paul Lorenz MD [address] [place] [address] [place], [place] [phone] PCP Resident Family Practice 01/19/22 Supervisor Tumblers Relationship Specialty Start Date End Date Clint Euceda Jr., MD [address] [place] [address] PCP - General Family Practice 03/09/22 Paul Lorenz MD [address] [place] [address] [place], [place] [phone] PCP Resident Family Practice 01/19/22 Supervisor Tumblers Relationship Specialty Start Date End Date Clint Euceda Jr., MD [address] [place] [address] PCP - General Family Medicine 03/09/22 Supervisor Tumblers Relationship Specialty Start Date End Date Clint Euceda Jr., MD [address] [place] [address] PCP - General Family Medicine 03/09/22 Supervisor Tumblers Relationship Specialty Start Date End Date Clint Euceda Jr., MD [address] [place] [address] PCP - General Family Medicine 03/09/22 Moo Dumont, social media content manager Material Flow Engineer 09/09/22 Supervisor Tumblers Relationship Specialty Start Date End Date Clint Euceda Jr., MD [address] [place] [address] PCP - General Family Medicine 03/09/22 Moo Dumont, social media content manager Material Flow Engineer 09/09/22 Supervisor Tumblers Relationship Specialty Start Date End Date Clint Euceda Jr., MD [address] [place] [address] PCP - General Family Medicine 03/09/22 Moo Dumont, social media content manager Material Flow Engineer 09/09/22 Supervisor Tumblers Relationship Specialty Start Date End Date Clint Euceda Jr., MD [address] [place] [address] PCP - General Family Medicine 03/09/22 Moo Dumont, social media content manager Material Flow Engineer 09/09/22 Supervisor Tumblers Relationship Specialty Start Date End Date Clint Euceda Jr., MD [address] [place] [address] PCP - General Family Medicine 03/09/22 Moo Dumont, social media content manager Material Flow Engineer 09/09/22 11/04/22 Supervisor Tumblers Relationship Specialty Start Date End Date Clint Euceda Jr., MD [address] [facility] [facility] [address] [place] [address] PCP - General Family Medicine 03/09/22 Moo Dumont, social media content manager Material Flow Engineer 09/09/22 11/04/22 Supervisor Tumblers Relationship Specialty Start Date End Date Clint Euceda Jr., MD [address] [facility] [address] [place] [address] PCP - General Family Medicine 03/09/22 Moo Dumont, social media content manager Material Flow Engineer 09/09/22 11/04/22 Supervisor Tumblers Relationship Specialty Start Date End Date Clint Euceda Jr., MD [address] [facility] [address] [place] [address] PCP - General Family Medicine 03/09/22 Dayan Mina, RN [address] [place] [address] Primary Care Material Flow Engineer 11/03/22 12/04/22 Supervisor Tumblers Relationship Specialty Start Date End Date Clint Euceda Jr., MD [address] [facility] [address] [place] [address] PCP - General Family Medicine 03/09/22 Dayan Mina, RN [address] [place], [place] [id number] Primary Care Material Flow Engineer 11/03/22 12/04/22 Supervisor Tumblers Relationship Specialty Start Date End Date Clint Euceda Jr., MD [address] [facility] [address] [place] [address] PCP - General Family Medicine 03/09/22 Dayan Mina, RN [address] [place] [address] Primary Care Material Flow Engineer 11/03/22 12/04/22 Supervisor Tumblers Relationship Specialty Start Date End Date Clint Euceda Jr., MD [address] [facility] [address] [place] [address] PCP - General Family Medicine 03/09/22 Dayan Mina, RN [address] [facility] [place] [address] Primary Care Material Flow Engineer 11/03/22 12/04/22 Supervisor Tumblers Relationship Specialty Start Date End Date Clint Euceda Jr., MD [address] [facility] [address] [place] [address] PCP - General Family Medicine 03/09/22 Dayan Mina, RN [address] [facility] [place] [address] Primary Care Material Flow Engineer 11/03/22 02/01/23 Supervisor Tumblers Relationship Specialty Start Date End Date Clint Euceda Jr., MD [address] [facility] [address] [place] [address] PCP - General Family Medicine 03/09/22 Dayan Mina, RN [address] [facility] [place] [address] Primary Care Material Flow Engineer 11/03/22 02/01/23 Supervisor Tumblers Relationship Specialty Start Date End Date Clint Euceda Jr., MD [address] [facility] [address] [place] [address] PCP - General Family Medicine 03/09/22 Dayan Mina, RN [address] [facility] [place] [address] Primary Care Material Flow Engineer 11/03/22 02/01/23 Supervisor Tumblers Relationship Specialty Start Date End Date Clint Euceda Jr., MD [address] [facility] [address] [place] [address] PCP - General Family Medicine 03/09/22 Dayan Mina RN [address] [place] [address] Primary Care Material Flow Engineer 11/03/22 02/01/23 Supervisor Tumblers Relationship Specialty Start Date End Date Clint Euceda Jr., MD [address] [facility] [address] [place] [address] PCP - General Family Medicine 03/09/22 Supervisor Tumblers Relationship Specialty Start Date End Date Clint Euceda Jr., MD [address] [facility] [address] [place] [address] PCP - General Family Medicine 03/09/22 Moo Dumont RN Primary Care Material Flow Engineer 09/09/22 11/03/22 Dayan Mina RN [address] [place] [address] Primary Care Material Flow Engineer 11/03/22 02/01/23 Supervisor Tumblers Relationship Specialty Start Date End Date Karthik Holliday, ELECTRONIC TESTER.CANARY RAISER [address] [place] [address] 332483 PCP - General Family Medicine 02/01/24 Josse Couch MD [address] [place] [address] Specialty Central Office Repairer Neurology 10/27/23 Patricia Hsu PA-C [address] [place], [place] 2667194 Specialty Central Office Repairer Neurology 10/27/23 Supervisor Tumblers Relationship Specialty Start Date End Date Karthik Holliday, ELECTRONIC TESTER.CANARY RAISER [address] [place], [place] [id number] PCP - General Family Medicine 02/01/24 Josse Couch MD [address] [place] [address] Specialty Central Office Repairer Neurology 10/27/23 Patricia Hsu PA-C [address] [facility] [place] [address] Specialty Central Office Repairer Neurology 10/27/23 Supervisor Tumblers Relationship Specialty Start Date End Date Karthik Holliday, ELECTRONIC TESTER.CANARY RAISER [address] [place], [place] [id number] PCP - General Family Medicine 02/01/24 Josse Couch MD [address] [place] [address] Specialty Central Office Repairer Neurology 10/27/23 Patricia Hsu PA-C [address] [place] [address] Specialty Central Office Repairer Neurology 10/27/23 Supervisor Tumblers Relationship Specialty Start Date End Date Karthik Holliday, ELECTRONIC TESTER.CANARY RAISER [address] [place] [address] PCP - General Family Medicine 02/01/24 Josse Couch MD [address] [place] [address] Specialty Central Office Repairer Neurology 10/27/23 Patricia Hsu PA-C [address] [facility] [place] [address] Specialty Central Office Repairer Neurology 10/27/23 Supervisor Tumblers Relationship Specialty Start Date End Date Karthik Holliday APRN.CANARY RAISER [address] [place] [address] PCP - General Family Medicine 02/01/24 Josse Couch MD [address] [place], [place] [id number] Specialty Central Office Repairer Neurology 10/27/23 Patricia Hus PA-C [address] [place] [address] Specialty Central Office Repairer Neurology 10/27/23 Supervisor Tumblers Relationship Specialty Start Date End Date Karthik Holliday, ELECTRONIC TESTER.CANARY RAISER [address] [place], [place] [id number] PCP - General Family Medicine 02/01/24 Josse Couch MD [address] [place] [address] Specialty Central Office Repairer Neurology 10/27/23 Patricia Hsu PA-C [address] [place] [address] Specialty Central Office Repairer Neurology 10/27/23 Supervisor Tumblers Relationship Specialty Start Date End Date Karthik Holliday APRN.CANARY RAISER [address] [place] [address] PCP - General Family Medicine 02/01/24 Josse Couch MD [address] [place] [address] Specialty Central Office Repairer Neurology 10/27/23 Patricia Hsu PA-C [address] [place] [address] Specialty Central Office Repairer Neurology 10/27/23 Supervisor Tumblers Relationship Specialty Start Date End Date Karthik Holliday APRN.CANARY RAISER [address] [place] [address] PCP - General Family Medicine 02/01/24 Josse Couch MD [address] [place] [address] Specialty Central Office Repairer Neurology 10/27/23 Patricia Hsu PA-C [address] [place] [address] Specialty Central Office Repairer Neurology 10/27/23 Supervisor Tumblers Relationship Specialty Start Date End Date Karthik Holliday APRN.CANARY RAISER [address] [place] [address] PCP - General Family Medicine 02/01/24 Josse Couch MD [address] [place] [address] Specialty Central Office Repairer Neurology 10/27/23 Patricia Hsu PA-C [address] [place] [address] Specialty Central Office Repairer Neurology 10/27/23 Supervisor Tumblers Relationship Specialty Start Date End Date Karthik Holliday APRN.CANARY RAISER [address] [place] [address] PCP - General Family Medicine 02/01/24 Josse Couch MD [address] [place], [place] [id number] Specialty Central Office Repairer Neurology 10/27/23 Patricia Hsu PA-C [facility] [place] [address] Specialty Central Office Repairer Neurology 10/27/23 Jed Wolf MD [address] [place] [address] Primary Staff Physician Cardiology 05/08/24 Supervisor Tumblers Relationship Specialty Start Date End Date Karthik Holliday APRN.CANARY RAISER [address] [place] [address] PCP - General Family Medicine 02/01/24 Josse Couch MD [address] [place] [address] Specialty Central Office Repairer Neurology 10/27/23 Patricia Hsu PA-C [facility] [place] [address] Specialty Central Office Repairer Neurology 10/27/23 Jed Wolf MD [address] [place], [place] [id number] Primary Staff Physician Cardiology 05/08/24 Supervisor Tumblers Relationship Specialty Start Date End Date Karthik Holliday APRN.CANARY RAISER [address] [place] [address] [place] [address] PCP - General Family Medicine 02/01/24 Josse Couch MD [address] [place] [address] Specialty Central Office Repairer Neurology 10/27/23 Patricia Hsu PA-C [address] [place] [address] Specialty Central Office Repairer Neurology 10/27/23 Jed Wolf MD [address] [place] [address] Primary Staff Physician Cardiology 05/08/24 Supervisor Tumblers Relationship Specialty Start Date End Date Karthik Holliday APRN.CANARY RAISER [address] [place] [address] PCP - General Family Medicine 02/01/24 Josse Couch MD [address] [place] [address] Specialty Central Office Repairer Neurology 10/27/23 Patricia Hsu PA-C [address] [place] [address] Specialty Central Office Repairer Neurology 10/27/23 Jed Wolf MD [address] [place], [place] 6260295 Primary Staff Physician Cardiology 05/08/24 Supervisor Tumblers Relationship Specialty Start Date End Date Karthik Holliday APRN.CANARY RAISER [address] [place] [address] PCP - General Family Medicine 02/01/24 Josse Couch MD [address] [place] [address] Specialty Central Office Repairer Neurology 10/27/23 Patricia Hsu PA-C [address] [place] [address] Specialty Central Office Repairer Neurology 10/27/23 Jed Wolf MD [address] [place] [address] Primary Staff Physician Cardiology 05/08/24 Supervisor Tumblers Relationship Specialty Start Date End Date Karthik Holliday APRN.CANARY RAISER [address] [place] [address] PCP - General Family Medicine 02/01/24 Josse Couch MD [address] [place] [address] Specialty Central Office Repairer Neurology 10/27/23 Patricia Hsu PA-C [address] [place] [address] Specialty Central Office Repairer Neurology 10/27/23 Jed Wolf MD [address] [place] [address] Primary Staff Physician Cardiology 05/08/24 Supervisor Tumblers Relationship Specialty Start Date End Date Karthik Holliday APRN.CANARY RAISER [facility] [place] [address] PCP - General Family Medicine 02/01/24 Josse Couch MD [address] [place] [address] Specialty Central Office Repairer Neurology 10/27/23 Patricia Hsu PA-C [address] [facility] [place] [address] Specialty Central Office Repairer Neurology 10/27/23 Jed Wolf MD [address] [facility] [place] [address] Primary Staff Physician Cardiology 05/08/24 Supervisor Tumblers Relationship Specialty Start Date End Date Karthik Holliday APRN.CANARY RAISER [address] [place], [place] [id number] PCP - General Family Medicine 02/01/24 Josse Couch MD [address] [place] [address] Specialty Central Office Repairer Neurology 10/27/23 Patricia Hsu PA-C [address] [facility] [address] Specialty Central Office Repairer Neurology 10/27/23 Jed Wolf MD [address] [facility] [address] Primary Staff Physician Cardiology 05/08/24 Supervisor Tumblers Relationship Specialty Start Date End Date Karthik Holliday APRN.CANARY RAISER [facility] [place], [place] [address] PCP - General Family Medicine 02/01/24 Josse Couch MD [address] [place] [address] Specialty Central Office Repairer Neurology 10/27/23 Patricia Hsu PA-C [address] [place] [address] Specialty Central Office Repairer Neurology 10/27/23 Jed Wolf MD [address] [place], [place] [id number] Primary Staff Physician Cardiology 05/08/24 Supervisor Tumblers Relationship Specialty Start Date End Date Karthik Holliday, FELIX.CANARY RAISER [address] [place] [address] PCP - General Family Medicine 02/01/24 Josse Couch MD [address] [place] [address] Specialty Central Office Repairer Neurology 10/27/23 Patricia Hsu PA-C [address] [place] [address] Specialty Central Office Repairer Neurology 10/27/23 Jed Wolf MD [address] [place] [address] Primary Staff Physician Cardiology 05/08/24 Supervisor Tumblers Relationship Specialty Start Date End Date Karthik Holliday, ELECTRONIC TESTER.CANARY RAISER [address] [place], [place] [address] PCP - General Family Medicine 02/01/24 Josse Couch MD [address] [place], [place] [id number] Specialty Central Office Repairer Neurology 10/27/23 Patricia Hsu PA-C [address] [place] [address] Specialty Central Office Repairer Neurology 10/27/23 Jed Wolf MD [address] [place], [place] [id number] Primary Staff Physician Cardiology 05/08/24 Supervisor Tumblers Relationship Specialty Start Date End Date Karthik Holliday APRN.CANARY RAISER [address] [place] [address] PCP - General Family Medicine 02/01/24 Josse Couch MD [address] [place] [address] Specialty Central Office Repairer Neurology 10/27/23 Patricia Hsu PA-C [address] [place] [address] Specialty Central Office Repairer Neurology 10/27/23 Jed Wolf MD [address] [place] [address] Primary Staff Physician Cardiology 05/08/24 Dayan Mina, RN Primary Care Material Flow Engineer 09/11/24 Supervisor Tumblers Relationship Specialty Start Date End Date Karthik Holliday APRN.CANARY RAISER [address] [place] [address] PCP - General Family Medicine 02/01/24 Josse Couch MD [address] [place] [address] Specialty Central Office Repairer Neurology 10/27/23 Patricia Hsu PA-C [address] [place] [address] Specialty Central Office Repairer Neurology 10/27/23 Jed Wolf MD [address] [place], [place] [id number] Primary Staff Physician Cardiology 05/08/24 Dayan Mina RN Primary Care Material Flow Engineer 09/11/24 Supervisor Tumblers Relationship Specialty Start Date End Date Karthik Holliday, ELECTRONIC TESTER.CANARY RAISER [facility] [place] [address] PCP - General Family Medicine 02/01/24 Josse Couch MD [address] [place] [address] Specialty Central Office Repairer Neurology 10/27/23 Patricia Hsu PA-C [address] [place], [place] 0098594 Specialty Central Office Repairer Neurology 10/27/23 Jed Wolf MD [address] [place], [place] 4814695 Primary Staff Physician Cardiology 05/08/24 Dayan Mina RN Primary Care Material Flow Engineer 09/11/24 Supervisor Tumblers Relationship Specialty Start Date End Date Karthik Holliday, ELECTRONIC TESTER.CANARY RAISER [facility] [place] [address] PCP - General Family Medicine 02/01/24 Josse Couch MD [address] [place] [address] Specialty Central Office Repairer Neurology 10/27/23 Patricia Hsu PA-C [address] [place] [address] Specialty Central Office Repairer Neurology 10/27/23 Jed Wolf MD [address] [place] [address] Primary Staff Physician Cardiology 05/08/24 Dayan Mina RN Primary Care Material Flow Engineer 09/11/24 Supervisor Tumblers Relationship Specialty Start Date End Date Karthik Holliday, ELECTRONIC TESTER.CANARY RAISER [facility] [place], [place] 0664[address] PCP - General Family Medicine 02/01/24 Josse Couch MD [address] [place] [address] Specialty Central Office Repairer Neurology 10/27/23 Patricia Hsu PA-C [address] [place] [address] Specialty Central Office Repairer Neurology 10/27/23 Jed Wolf MD [address] [facility] [place], [place] [address] Primary Staff Physician Cardiology 05/08/24 Dayan Mina, RN Primary Care Material Flow Engineer 09/11/24 Supervisor Tumblers Relationship Specialty Start Date End Date Karthik Holliday, ELECTRONIC TESTER.CANARY RAISER [address] [place] [address] [phone] PCP - General Family Medicine 02/01/24 Josse Couch MD [address] [place], [place] 836[address]95 Specialty Central Office Repairer Neurology 10/27/23 Patricia Hsu PA-C [address] [facility] [place] [address] Specialty Central Office Repairer Neurology 10/27/23 Jed Wolf MD [address] [facility] [place] [address] Primary Staff Physician Cardiology 05/08/24 Dayan Mina, RN Primary Care Material Flow Engineer 09/11/24 Supervisor Tumblers Relationship Specialty Start Date End Date Karthik Holliday, ELECTRONIC TESTER.CANARY RAISER [facility] [place], [place] 302553 PCP - General Family Medicine 02/01/24 Josse Couch MD [address] [place], [place] [id number] Specialty Central Office Repairer Neurology 10/27/23 Patricia Hsu PA-C [address] [place] [address] Specialty Central Office Repairer Neurology 10/27/23 Jed Wolf MD [address] [place] [address] Primary Staff Physician Cardiology 05/08/24 Supervisor Tumblers Relationship Specialty Start Date End Date Karthik Holliday, ELECTRONIC TESTER.CANARY RAISER [address] [place] [address] [phone] PCP - General Family Medicine 02/01/24 Josse Couch MD [address] [place] [address] Specialty Central Office Repairer Neurology 10/27/23 Patricia Hsu PA-C [address] [place] [address] Specialty Central Office Repairer Neurology 10/27/23 Jed Wolf MD [address] [place] [address] Primary Staff Physician Cardiology 05/08/24 Supervisor Tumblers Relationship Specialty Start Date End Date Karthik Holliday, ELECTRONIC TESTER.CANARY RAISER [address] [place] [address] [id number] PCP - General Family Medicine 02/01/24 Josse Couch MD [address] [place] [address] Specialty Central Office Repairer Neurology 10/27/23 Patricia Hsu PA-C [address] [place] [address] Specialty Central Office Repairer Neurology 10/27/23 Jed Wolf MD [address] [place] [address] Primary Staff Physician Cardiology 05/08/24 Supervisor Tumblers Relationship Specialty Start Date End Date Karthik Holliday, FELIX.CANARY RAISER [address] [place] [address] [phone] PCP - General Family Medicine 02/01/24 Josse Couch MD [address] [place] [address] Specialty Central Office Repairer Neurology 10/27/23 Patricia Hsu PA-C [address] [place] [address] Specialty Central Office Repairer Neurology 10/27/23 Jed Wolf MD [address] [place] [address] Primary Staff Physician Cardiology 05/08/24 Supervisor Tumblers Relationship Specialty Start Date End Date Karthik Holliday, FELIX.CANARY RAISER [address] [place] [address] 044153 PCP - General Family Medicine 02/01/24 Josse Couch MD [address] [place] [address] Specialty Central Office Repairer Neurology 10/27/23 Patricia Hsu PA-C [address] [place] [address] Specialty Central Office Repairer Neurology 10/27/23 Jed Wolf MD [address] [place], [place] [id number] Primary Staff Physician Cardiology 05/08/24 Supervisor Tumblers Relationship Specialty Start Date End Date Karthik Holliday, ELECTRONIC TESTER.CANARY RAISER [facility] [place], [place] 177[address] PCP - General Family Medicine 02/01/24 Josse Couch MD [address] [place] [address] Specialty Central Office Repairer Neurology 10/27/23 Patricia Hsu PA-C [address] [place] [address] Specialty Central Office Repairer Neurology 10/27/23 Supervisor Tumblers Relationship Specialty Start Date End Date Karthik Holliday, ELECTRONIC TESTER.CANARY RAISER [address] [place] [address] 35556 PCP - General Family Medicine 02/01/24 Josse Couch MD [address] [place] [address] Specialty Central Office Repairer Neurology 10/27/23 Patricia Hsu PA-C [address] [place] [address] Specialty Central Office Repairer Neurology 10/27/23 Jed Wolf MD [address] [place], [place] [phone] Primary Staff Physician Cardiology 05/08/24 Supervisor Tumblers Relationship Specialty Start Date End Date Karthik Holliday, ELECTRONIC TESTER.CANARY RAISER [facility] [place], [place] 232033 PCP - General Family Medicine 02/01/24 Josse Couch MD [address] [place] [address] Specialty Central Office Repairer Neurology 10/27/23 Patricia Hsu PA-C [address] [place] [address] Specialty Central Office Repairer Neurology 10/27/23 Jed Wolf MD [address] [place] [address] Primary Staff Physician Cardiology 05/08/24 Supervisor Tumblers Relationship Specialty Start Date End Date Karthik Holliday, ELECTRONIC TESTER.CANARY RAISER [address] [place] [address] [phone] PCP - General Family Medicine 02/01/24 Josse Couch MD [address] [place] [address] Specialty Central Office Repairer Neurology 10/27/23 Patricia Hsu PA-C [address] [place] [address] Specialty Central Office Repairer Neurology 10/27/23 Jed Wolf MD [address] [place], [place] [id number] Primary Staff Physician Cardiology 05/08/24 Supervisor Tumblers Relationship Specialty Start Date End Date Karthik Holliday, ELECTRONIC TESTER.CANARY RAISER [address] [place] [address] 18379 PCP - General Family Medicine 02/01/24 Josse Couch MD [address] [place] [address] Specialty Central Office Repairer Neurology 10/27/23 Patricia Hsu PA-C [address] [place], [place] 0693294 Specialty Central Office Repairer Neurology 10/27/23 Jed Wolf MD [address] [place], [place] [phone] Primary Staff Physician Cardiology 05/08/24 Anya Huang, ELECTRONIC TESTER.CANARY RAISER [address] [place] [address] Referring Neurology 10/30/24 Supervisor Tumblers Relationship Specialty Start Date End Date Karthik Holliday, ELECTRONIC TESTER.CANARY RAISER [address] [place] [address] 47588 PCP - General Family Medicine 02/01/24 Josse Couch MD [address] [place], [place] [id number] Specialty Central Office Repairer Neurology 10/27/23 Patricia Hsu PA-C [address] [place], [place] [id number] Specialty Central Office Repairer Neurology 10/27/23 Jde Wolf MD [address] [place], [place] [phone] Primary Staff Physician Cardiology 05/08/24 Anya Huang, ELECTRONIC TESTER.CANARY RAISER [address] [phone] Referring Neurology 10/30/24 Supervisor Tumblers Relationship Specialty Start Date End Date Karthik Holliday ELECTRONIC TESTER.CANARY RAISER [address] [place], [place] 847563 PCP - General Family Medicine 02/01/24 Josse Couch MD [address] [place] [address] Specialty Central Office Repairer Neurology 10/27/23 Patricia Hsu PA-C [address] [place] [address] Specialty Central Office Repairer Neurology 10/27/23 Jed Wolf MD [address] [place], [place] [phone] Primary Staff Physician Cardiology 05/08/24 Anya Huang, ELECTRONIC TESTER.CANARY RAISER [address] [phone] Referring Neurology 10/30/24 Supervisor Tumblers Relationship Specialty Start Date End Date Karthik Holliday, ELECTRONIC TESTER.CANARY RAISER [address] [place], [place] 132633 PCP - General Family Medicine 02/01/24 Josse Couch MD [address] [place] [address] Specialty Central Office Repairer Neurology 10/27/23 Patricia Hsu PA-C [address] [place] [address] Specialty Central Office Repairer Neurology 10/27/23 Jed Wolf MD [address] [place] [address] Primary Staff Physician Cardiology 05/08/24 Anya Huang, ELECTRONIC TESTER.CANARY RAISER [address] [phone] Referring Neurology 10/30/24 Supervisor Tumblers Relationship Specialty Start Date End Date Karthik Holliday, ELECTRONIC TESTER.CANARY RAISER [address] [place], [place] 252343 PCP - General Family Medicine 02/01/24 Josse Couch MD [address] [place] [address] Specialty Central Office Repairer Neurology 10/27/23 Patricia Hsu PA-C [address] [place] [address] Specialty Central Office Repairer Neurology 10/27/23 Jed Wolf MD [address] [place] [address] Primary Staff Physician Cardiology 05/08/24 Anya Huang, ELECTRONIC TESTER.CANARY RAISER [address] [phone] Referring Neurology 10/30/24 Supervisor Tumblers Relationship Specialty Start Date End Date Karthik Holliday, ELECTRONIC TESTER.CANARY RAISER [address] [place], [place] 272713 PCP - General Family Medicine 02/01/24 Josse Couch MD [address] [place], [place] [id number] Specialty Central Office Repairer Neurology 10/27/23 Patricia Hsu PA-C [address] [place] 4532294 Specialty Central Office Repairer Neurology 10/27/23 Jed Wolf MD [address] [place] 1153595 Primary Staff Physician Cardiology 05/08/24 Anya Huang, ELECTRONIC TESTER.CANARY RAISER [address] [phone] Referring Neurology 10/30/24 Supervisor Tumblers Relationship Specialty Start Date End Date Karthik Holliday, ELECTRONIC TESTER.CANARY RAISER [address] [place] [address] PCP - General Family Medicine 02/01/24 Josse Couch MD [address] [place] [address] Specialty Central Office Repairer Neurology 10/27/23 Patricia Hsu PA-C [address] [facility] [place] [address] Specialty Central Office Repairer Neurology 10/27/23 Jed Wolf MD [address] [place] [address] Primary Staff Physician Cardiology 05/08/24 Anya Huang, ELECTRONIC TESTER.CANARY RAISER [address] [place] [place] [address] [phone] Referring Neurology 10/30/24 Supervisor Tumblers Relationship Specialty Start Date End Date Karthik Holliday APRN.CANARY RAISER [address] [place] [address] PCP - General Family Medicine 02/01/24 Josse Couch MD [address] [place] [address] Specialty Central Office Repairer Neurology 10/27/23 Patricia Hsu PA-C [address] [place] [address] Specialty Central Office Repairer Neurology 10/27/23 Jed Wolf MD [address] [place] [address] Primary Staff Physician Cardiology 05/08/24 Anya Huang APRN.CANARY RAISER [address] [place] [place] [address] [id number] Referring Neurology 10/30/24 Supervisor Tumblers Relationship Specialty Start Date End Date Karthik Holliday ELECTRONIC TESTER.CANARY RAISER [address] [place], [place] [id number] PCP - General Family Medicine 02/01/24 Josse Couch MD [address] [place], [place] [id number] Specialty Central Office Repairer Neurology 10/27/23 Patricia Hsu PA-C [address] [place], [place] [id number] Specialty Central Office Repairer Neurology 10/27/23 Jed Wolf MD [address] [place], [place] [id number] Primary Staff Physician Cardiology 05/08/24 Anya Huang APRN.CANARY RAISER [address] [place] [address] Referring Neurology 10/30/24 Team Status: Inactive Member [...] Provider Active Sta rt: February 05, 2025 Supervisor Tumblers Relationship Specialty Start Date End Date Karthik Holliday APRN.CANARY RAISER [address] [place] [address] PCP - General Family Medicine 02/01/24 Josse Couch MD [address] [place] [address] Specialty Central Office Repairer Neurology 10/27/23 Patricia Hsu PA-C [address] [place] [address] Specialty Central Office Repairer Neurology 10/27/23 Jed Wolf MD [address] [place], [place] [phone] Primary Staff Physician Cardiology 05/08/24 Anya Huang APRN.CANARY RAISER [address] [address] Referring Neurology 10/30/24 Team Status: Inactive Member Role Status Dates Violette MCCALL Attending Provider Active Sta rt: February 05, 2025 End: February 05, 2025 Supervisor Tumblers Relationship Specialty Start Date End Date Violette Abdi MD [address] [place] [address] [address] [place] [address] PCP - General Internal Medicine 03/14/25 Josse Couch MD [address] [place] [address] Specialty Central Office Repairer Neurology 10/27/23 Patricia Hsu PA-C [address] [place] [address] Specialty Central Office Repairer Neurology 10/27/23 Jed Wolf MD [address] [place], [place] [id number] Primary Staff Physician Cardiology 05/08/24 Anya Huang APRN.CANARY RAISER [address] [place] [address] Referring Neurology 10/30/24 Team Status: Inactive Member [...] March 20, 2025 End: March 20, 2025 Supervisor Tumblers Relationship Specialty Start Date End Date Violette Abdi MD [address] [facility] [address] [place], [place] [id number] PCP - General Internal Medicine 03/14/25 Josse Couch MD [address] [place] [address] Specialty Central Office Repairer Neurology 10/27/23 Patricia Hsu, PA-C [address] [place], [place] [phone] Specialty Central Office Repairer Neurology 10/27/23 Jed Wolf MD [address] [place], [place] [phone] Primary Staff Physician Cardiology 05/08/24 Anya Huang, FELIX.CANARY RAISER [address] [place] [address] Referring Neurology 10/30/24 Supervisor Tumblers Relationship Specialty Start Date End Date Violette Abdi MD [address] [facility] [address] [place] [address] PCP - General Internal Medicine 03/14/25 Josse Couch MD [address] [place] [address] Specialty Central Office Repairer Neurology 10/27/23 Patricia Hsu PA-C [address] [facility] [place], [place] [phone] Specialty Central Office Repairer Neurology 10/27/23 Jed Wolf MD [address] [place] [address] Primary Staff Physician Cardiology 05/08/24 Anya Huang APRN.CANARY RAISER [address] [place] [phone] Referring Neurology 10/30/24 Supervisor Tumblers Relationship Specialty Start Date End Date Violette Abdi MD [address] [facility] [address] [place] [address] PCP - General Internal Medicine 03/14/25 Josse Couch MD [address] [place] [address] Specialty Central Office Repairer Neurology 10/27/23 Patricia Hsu PA-C [address] [facility] [place] [address] Specialty Central Office Repairer Neurology 10/27/23 Jed Wolf MD [address] [facility] [place] [id number] Primary Staff Physician Cardiology 05/08/24 Anya Huang APRN.CANARY RAISER [address] [address] Referring Neurology 10/30/24 Supervisor Tumblers Relationship Specialty Start Date End Date Violette Abdi MD [address] [facility] [address] [place] [address] PCP - General Internal Medicine 03/14/25 Josse Couch MD [address] [place] [address] Specialty Central Office Repairer Neurology 10/27/23 Patricia Hsu, PA-C [address] [place] [address] Specialty Central Office Repairer Neurology 10/27/23 Jed Wolf MD [address] [place], [place] [phone] Primary Staff Physician Cardiology 05/08/24 Anya Huang APRN.CANARY RAISER [address] [address] Referring Neurology 10/30/24 Reason for Visit (unrecogniz ed section and content) Reason Comments Follow Up Specialty Diagnoses / Procedures Referred By Perri calero Referred To Contact CEREBROVASCULAR Diagnoses 4 month follow up Procedures OFFICE VISIT, EST PT., LEVEL 2 [facility] [address] [place] [address] Phone: tel: fax: Anya Huang APRN.CANARY RAISER [address] [address] Phone: tel: fax: Referral ID Status Reason Start Date Expiration Date Visits Re quested Visits Authorized [id number] Closed 02/22/2025 06/27/2025 1 1 Reason Comments Refill Request Lipitor Reason Comments Refill Request CHLOROTHILADONE AND TAMSULOSIN Blood Pressure Check Reason Comments Back Pain upper back, last few months, furniture walking Reason Comments Fall Has felt off balance , fell 3 times Reason Onset Date Comments No Show No Show 09/03/2022 No show Reason Onset Date Comments 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 Care 09/07/2022 Dc AG to SN [facility] 09/06/22 Reason Onset Date Comments Hospital F/U 09/08/2022 Reason Comments Patient Question Pt would like to see Neurology to investigate possibility of Parkinsonism. Reason Onset Date Comments 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 Care 09/21/2022 Reason Comments Referral Information Consult to Neurolog y # [id number] Reason Onset Date Comments 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 Care 09/29/2022 SNF update Reason Comments New Patient Shuffling and falls Reason Onset Date Comments 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 Care 10/08/2022 Dc from [facility] 10/05/22 Reason Comments Urinary Frequency Reason Comments Established Patient More evidence if I h ave Parkinson's Syndrome Specialty Diagnoses / Procedures Referred By Perri t Referred To Contact Diagnoses Shuffling gait Gait instability Procedures PROVIDER ORDERED FOLLOW UP OFFICE/OUTPATIENT NEW HIGH MDM 60-74 MINUTES Josse Couch MD [address] [place] [address] Referral ID Status Reason Start Date Expiration Date V isits Requested Visits Authorized [id number] Closed PCP Requested Referral 10/21/2022 10/07/2023 1 [...] sequela (HCC) Procedures CONSULT TO ELECTROPHYSIOLOGY OFFICE/OUTPATIENT [facility] 60 MINUTES Anya Huang, ELECTRONIC TESTER.CANARY RAISER [address] [address] Referral ID Status Reason Start Date Expiration Date V isits Requested Visits Authorized [id number] Closed PCP Requested Referral 05/03/2024 05/03/2025 1 1 Specialty Diagnoses / Procedures Referred By Contac t Referred To Contact CT IMAGING Diagnoses SDH (subdural hematoma) (HCC) Procedures CT BRAIN WO IVCON CT HEAD/BRAIN W/O CONTRAST MATERIAL Scott Minor, ELECTRONIC TESTER.CANARY RAISER [address] [place] [address] [place] [address] Referral ID Status Reason Start Date Expiration Date V isits Requested Visits Authorized [id number] Closed Auto-Generate d Referral 05/08/2024 07/07/2024 1 1 Reason Onset Date Comments 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 Care 05/22/[address] [facility] to [facility] Reason Onset Date Comments 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 Care 06/08/2024 [facility] Discharg e to [facility] Reason Comments Hospital Discharge Reason Comments Established Patient Specialty Diagnoses / Procedures Referred By Contac t Referred To Contact CT IMAGING Diagnoses Traumatic subdural hematoma with loss of consciousness, sequela (HCC) Intracranial meningioma (HCC) Procedures CT BRAIN WO IVCON CT HEAD/BRAIN W/O CONTRAST MATERIAL Agata Del Toro, ELECTRONIC TESTER.CANARY RAISER [address] [place] [id number] [place] [address] Referral ID Status Reason Start Date Expiration Date V isits Requested Visits Authorized [id number] Closed Auto-Generate d Referral 06/20/2024 09/20/2024 1 1 Reason Onset Date Comments 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 Care 09/11/2024 [facility] Reason Comments Opened In Error Reason Comments Follow Up Rehab follow up, Reason Comments High blood pressure Reason Onset Date Comments 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 Care 09/29/2024 [facility] Discharg e to [facility] Specialty Diagnoses / Procedures Referred By Contac t Referred To Contact MR IMAGING Diagnoses Silent micro-hemorrhage of brain (HCC) Procedures MRI BRAIN WO IVCON MRI BRAIN BRAIN STEM W/O CONTRAST MATERIAL Anya Huang, ELECTRONIC TESTER.CANARY RAISER [address] [place] [address] [place] [address] Referral ID Status Reason Start Date Expiration Date V isits Requested Visits Authorized [id number] Closed Auto-Generate d Referral 08/07/2024 10/06/2024 1 1 Reason Comments Consult Reason Comments Follow Up Referral ID Status Reason Start Date Expiration Date V isits Requested Visits Authorized [id number] Closed Auto-Generate d Referral 10/18/2024 01/15/2025 1 1 Reason Comments Newly Diagnosed Specialty Diagnoses / Procedures Referred By Contac t Referred To Contact Diagnoses Multiple subsegmental pulmonary emboli without acute cor pulmonale (HCC) Acute deep vein thrombosis (DVT) of proximal vein of lower extremity, unspecified laterality (HCC) Procedures CONSULT TO HEMATOLOGY/ONCOLOGY OFFICE/OUTPATIENT NEW HIGH MDM 60 MINUTES Anya Huang, ELECTRONIC TESTER.CANARY RAISER [address] [place] [address] Referral ID Status Reason Start Date Expiration Date V isits Requested Visits Authorized [id number] Closed PCP Requested Referral 10/26/2024 10/26/2025 1 1 Reason Onset Date Comments 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 Care 03/14/2025 SNF update - [facility] resident Goals (unrecognized section and content) Goals [...] BE BASED ON THE PRIMARY CLINICAL RECORDS. [facility] [employer] [facility]. provides no warranty or guarantee of the accuracy or completeness of information in this document.
[2025-10-30 08:18] LABS: Hematocrit 44.3 % (40-54); Hemoglobin 14.6 g/dL (13.0-16.5); Mean Corp Hgb Conc 33.0 g/dL (32-36); Mean Corpuscular Volume 90.4 fL (80-94); Mean Platelet Vol. 11.4 fl (6.2-12.0); Platelet Count 295 K/mm3 (150-450); RBC Distribution Width CV 13.7 % (11.6-14.6); RBC Distribution Width SD 45.6 fl (35.1-43.9); Red Blood Count 4.90 M/mm3 (4.6-6.2); White Blood Count 7.9 K/mm3 (4.4-11.0)
[2025-10-30 08:40] LABS: Anion Gap 13 (7-18); BUN 14 mg/dL (4-19); BUN/Creat Ratio 16.3 RATIO (10-20); Calcium,Total 9.2 mg/dL (7.6-11.0); Carbon Dioxide 26.0 mmol/L (20.0-29.0); Chloride 105 mmol/L (96-106); Glucose 88 mg/dL (70-99); Potassium 3.9 mmol/L (3.5-5.1)
== END ==
LOC: OLS.SANC 05:00
PROVIDERS: Visit Provider Internal Medicine
DX: I10 Essential (primary) hypertension (principal)
CPT/HCPCS: 36415; 80048; 85027